=== PATIENT | female | born 1945 | race Caucasian/White ===

== ENCOUNTER 2023-02-23 00:21 | Emergency (ER) | payer OTHER ==
--- OUTSIDE RECORDS SUMMARY | 2023-02-23 00:48 | XMS REPORT | Continuity of Care Document ---
:1945 Author Organization [facility] t Address [address] [place] [address]. [address] [place] [address] Care Team Providers Name Role Phone Darius CANNON, Mary Primary Care Physician Loida OLSON, Rosaura Bush Attending Clinician Unavailable ANA PAULA BERRY Attending Clinician Unavailable ANA PAULA BERRY Attending Clinician Unavailable Brandon Shelton MD Attending Clinician Carlos Carolina MD Attending Clinician Isacc Conley MD Attending Clinician FAHEEM MA Attending Clinician Unavailable Doctor Unassigned, [place] Attending Clinician Unavailable Arlene Hoffman RN Attending Clinician Unavailable Carlie Oconnor MD Attending Clinician Gurwinder Raymond MD Attending Clinician Angel Luis Caputo MD Attending Clinician Kvng Maxwell MD Attending Clinician Abbe Lewis MD Attending Clinician Unavailable ABBE LEWIS Attending Clinician Unavailable Lopez CANNON, [facility] Attending Clinician LALIT PEREZ Attending Clinician Unavailable LALIT PEREZ Attending Clinician Unavailable Lalit Perez MD Attending Clinician Bela Ac MD Attending Clinician [phone] ELIZABETH OSUNA Attending Clinician Unavailable JAMES BIGGS Attending Clinician Unavailable Vince Thomason DO Attending Clinician James Biggs MD Attending Clinician Provider, [facility] Attending Clinician Unavailable Selena Cedeno MD Attending Clinician SELENA CEDENO Attending Clinician Unavailable IBIS WARNER Attending Clinician Unavailable Cece Vu Attending Clinician CECE BELCHER Attending Clinician Unavailable CARLOS CAROLINA Admitting Clinician Unavailable Kvng Maxwell MD Admitting Clinician KVNG MAXWELL Admitting Clinician Unavailable JAMES BIGGS Admitting Clinician Unavailable James Biggs MD Admitting Clinician Payers Payer Name Policy Type Policy Number Effective Date Expiration Date S ource Problems Condition Condition Condition Status Onset Resolution Last Treating Co mments Source Name Details Category Date Date Treatment Clinician Date Acute Acute Disease Active Univers hypoxemic hypoxemic 02-10 [place] respir[place] failure 00 [facility] Branch Hypotensio Hypotensio Disease Active U nivers n, n, 9-18 ity of unspecifie unspecifie 00:00[place] d d 00 Medical hypotensio hypotensio Br anch n type n type Pulmonary Pulmonary Disease Active Uni vers edema edema 6-11 ity of 00:00: [place] 00 Medical Branch Acute Acute Disease Active Univers pulmonary pulmonary 6-11 ity of edema edema 00:00: [place] [facility] Coronary Coronary Disease Active Overview: [place] artery artery 6-11 Formattin ity of disease disease 00:00: g of this [place] involving involving 00 note [facility] eklutna eklutna might be Branch coronary coronary different artery of artery of from the eklutna eklutna original. heart with heart with Added angina angina automatic pectoris pectoris ally from request for surgery [id number] Acute Acute Disease Active Univers systolic systolic 4-18 ity of congestive congestive 00:00[place] heart heart 00 Medical failure failure Branch Acute Acute Disease Active Univers left-sided left-sided 4-18 it y of CHF CHF 00:00: [place] (congestiv (congestiv 00 Me dical e heart e heart Branch failure) failure) Low oxygen Low oxygen Disease Active U nivers saturation saturation 6-26 it y of 00:00: [place] [facility] Pneumonia Pneumonia Disease Active Uni vers due to due to 6-26 ity of infectious infectious 00:00: [place] organism organism 00 Medica l Branch Essential Essential Disease Active 2016-05 Uni vers hypertensi hypertensi 0-01 it y of on on 00:00: [place] [facility] Acute on Acute on Disease Active 2016-05 Unive rs chronic chronic 0-01 ity of diastolic diastolic 00:00: Beto cotton CHF CHF 00 Medical (congestiv (congestiv Br anch e heart e heart failure), failure), NYHA class NYHA class 3 3 Paroxysmal Paroxysmal Disease Active 2016-05 U nivers atrial atrial 0-01 ity of fibrillati fibrillati 00:00: [place] on on 00 Medical Branch Type 2 Type 2 Disease Active 2016-05 Univers diabetes diabetes 0-01 ity of mellitus mellitus 00:00: [place] with with 00 Medical complicati complicati Br anch on, with on, with long-term long-term current current use of use of insulin insulin Type 2 Type 2 Disease Active 2016-05 Univers diabetes diabetes 0-01 ity of mellitus mellitus 00:00: [place] with with 00 Medical complicati complicati Br anch on, with on, with long-term long-term current current use of use of insulin insulin Chest pain Chest pain Disease Active U nivers 9-30 ity of 00:00: [place] 00 Medical Branch Muscle Muscle Disease Active Univers weakness weakness 4-14 ity of of lower of lower 00:00: [place] extremity extremity 00 [facility] ga Branch Abnormal Abnormal Disease Active Unive rs gait gait 4-14 ity of 00:00: [place] [facility] Left knee Left knee Disease Active Uni vers pain pain 2-24 ity of 00:00: [place] [facility] Left knee Left knee Disease Active 2016-0 Uni vers pain pain 2-24 ity of 00:00: [place] 00 Medical Branch Allergies, Adverse Reactions, Alerts Allergy Allergy Status Severity Reaction(s) Onset Inactive Treating Comm ents Source Name Type Date Date Clinician NO KNOWN Drug Active Univers ALLERGIE Class ity of S [place] [facility] Social History Social Habit Start Date Stop Date Quantity Comments Source Sexual orientation Univer sity of [place] [facility] History SDOH University o f Alcohol Std Drinks [place] [facility] History SDOH University o f Alcohol Binge [place] [facility] History SDOH Social Unive rsity of Connections Get [place] Med ical Together Branch History SDOH Social Unive rsity of Connections [facility] Medical Branch History SDOH Social Unive rsity of Connections [place] Medical Membership Branch History SDOH Social Unive rsity of Connections [place] Medical Meetings Branch Alcohol intake 2023-02-02 2023-02-02 0 /d University of 00:00:00 00:00:00 [place] [facility] History SDOH 2022-10-27 2022-10-27 1 University o f Alcohol Frequency 00:00:00 00:00:00 [place] M edical Branch History SDOH Social 2022-10-27 2022-10-27 5 Unive rsity of Connections Phone 00:00:00 00:00:00 [place] M edical Branch History SDOH Social 2022-10-27 2022-10-27 3 Unive rsity of Connections Living 00:00:00 00:00:00 [place] [facility] History SDOH 2022-10-27 2022-10-27 0 University o f Physical Activity 00:00:00 00:00:00 [place] M edical DPW Branch History SDOH 2022-10-27 2022-10-27 0 University o f Physical Activity 00:00:00 00:00:00 [place] M edical MPS Branch History SDOH 2022-10-27 2022-10-27 5 University o f Financial 00:00:00 00:00:00 [place] [facility] History SDOH Food 2022-10-27 2022-10-27 1 Univers ity of Worry 00:00:00 00:00:00 [place] [facility] History SDOH Food 2022-10-27 2022-10-27 1 Univers ity of Scarcity 00:00:00 00:00:00 [place] [facility] History SDOH 2022-10-27 2022-10-27 2 University o f Transport Med 00:00:00 00:00:00 [place] Medic al Branch History SDFL 2022-10-27 2022-10-27 2 University o f Transport Non-Med 00:00:00 00:00:00 [place] M edical Branch History SDOH 2022-10-27 2022-10-27 2 University o f Housing Unable to 00:00:00 00:00:00 [place] M edical Pay Branch History SDFL 2022-10-27 2022-10-27 1 University o f Housing Places 00:00:00 00:00:00 [place] Medi ga Lived Branch History SDFL 2022-09-03 2022-09-03 2 [place] o f Housing Homeless 00:00:00 00:00:00 [place] Me dical Last Year Branch Exposure to 2022-08-23 2022-09-02 Yes [facility] SARS-CoV-2 (event) 00:00:00 21:35:00 [facility] Tobacco use and 2022-09-02 2022-09-02 Smokeless Universit y of exposure 00:00:00 00:00:00 tobacco non-user [facility] dical Branch History of Social 2018-11-25 2018-11-25 Univers ity of function 00:00:00 00:00:00 [facility] Sex [birth year] Universit y of 00:00:00 00:00:00 [facility] Smoking Status Start Date Stop Date Source Never smoked tobacco [facility] Medications Ordered Filled Start Stop Current Ordering Indication Dosage Frequency Signature Comments Components Source Medication Medication Date Date Medication? Clinician (SIG) Name Name BIOTIN ORAL 2022-05 Yes 2000mg Take 2,000 Univers 0-04 mg by ity of 15:53: mouth [place] daily. Medical Branch GABAPENTIN 2022-05 Yes 800mg Take 800 [place] ORAL 0-04 mg by ity of 15:53: mouth 3 [place] 43 (three) Medical times Branch daily. metFORMIN 2022-05 Yes 1000mg Take 1 Univ ers (GLUCOPHAGE 0-04 tablet by ity of ) 1,000 mg 15:53: mouth in [place] tablet 43 the Medical morning Branch and 1 tablet in the evening. Take with meals. potassium 2022-05 Yes 20meq Take 20 Univ ers chloride 0-04 mEq by ity of (K-DUR) 10 15:53: mouth [place] mEq CR 43 daily. Medical tablet Branch tolterodine 2022-05 Yes 4mg Take 4 mg U nivers [place] (DETROL 0-04 by mouth ity o f [place]) 4 mg 24 15:53: [place]. [place] hr capsule 43 Medical Branch ezetimibe 2022-05 Yes 10mg Take 1 Univer s (ZETIA) 10 0-04 tablet by ity of mg tablet 15:53: [place] 43 the Medical morning. Branch Fentanyl, 2022-05 Yes Univers Bulk, 100 % 0-04 ity of Powd 15:53: [place] 43 Medical Branch diazePAM 5 2022-05 Yes (Schedule Un j[place] mg tablet 0-04 IV Drug) ity of 15:53: TAKE 1 [place] 43 TABLET BY Medical MOUTH Branch EVERY EVENING Fenofibrate 2022-05 Yes 150mg Take 1 Uni vers 150 mg 0-04 capsule by ity of capsule 15:53: mouth in [place] [address] the Medical morning. Branch raloxifene 2022-05 Yes 1 tablet Uni vers 60 mg 0-04 ity of tablet 15:53: [place] 43 Medical Branch Insulin 2022-05 Yes inject Univers Detemir 0-04 under the ity of (LEVEMIR 15:53: skin. [place] FLEXPEN) Medical 100 unit/mL Branch (3 mL) injection BIOTIN ORAL 2022-05 Yes 2000mg Take 2,000 Univers 0-04 mg by ity of 15:53: mouth [place] 43 daily. Medical Branch GABAPENTIN 2022-05 Yes 800mg Take 800 [place] ORAL 0-04 mg by ity of 15:53: mouth 3 [place] 43 (three) Medical times Branch daily. metFORMIN 2022-05 Yes 1000mg Take 1 Univ ers (GLUCOPHAGE 0-04 tablet by ity of ) 1,000 mg 15:53: mouth in [place] tablet 43 the Medical morning Branch and 1 tablet in the evening. Take with meals. potassium 2022-05 Yes 20meq Take 20 Univ ers chloride 0-04 mEq by ity of (K-DUR) 10 15:53: mouth [place] mEq CR 43 daily. Medical tablet Branch tolterodine 2022-05 Yes 4mg Take 4 mg U nivers [place] (DETROL 0-04 by mouth ity o f [place]) 4 mg 24 15:53: daily. [place] capsule 43 Medical Branch ezetimibe 2022-05 Yes 10mg Take 1 Univer s (ZETIA) 10 0-04 tablet by ity of mg tablet [facility]:53[facility] morning. Branch Fentanyl, 2022-05 Yes Univers Bulk, 100 % 0-04 ity of Powd 15:53: [place] [address] Medical Branch diazePAM 5 2022-05 Yes (Schedule Un j[place] mg tablet 0-04 IV Drug) ity of 15:53: TAKE 1 [place] 43 TABLET BY Medical MOUTH Branch EVERY EVENING Fenofibrate 2022-05 Yes 150mg Take 1 Uni vers 150 mg 0-04 capsule by ity of capsule 15:53: mouth in [place] [address] the Medical morning. Branch raloxifene 2022-05 Yes 1 tablet Uni vers 60 mg 0-04 ity of tablet 15:53: [place] [address] Medical Branch Insulin 2022-05 Yes inject Univers Detemir 0-04 under the ity of (LEVEMIR 15:53: skin. [place] FLEXPEN) Medical 100 unit/mL Branch (3 mL) injection Lidocaine 2022-05- No 1{patch 1 Patch, Univers (LIDOCARE) 0-02 02-17 } Topical, ity of 4 % patch 1 18:00: 05:33 Administer [place] Patch 00 :00 over 12 Medical Hours, Branch ONCE, 1 dose, On Thu02/16/23 at 1300, Routine Sliding 2022-05 Yes Subcutaneo Univ ers Scale 0-02 us, TID ity of Insulin - 17:00: MEALS+HS, [place] Lispro 00 First dose Medical (HumaLOG) (after Branch last modificati on) on Thu02/16/23 at 1200, Until Discontinu ed, Routine losartan 2022-05 Yes 25mg 25 mg, Univers (COZAAR) 0-02 Oral, ity of tablet 25 16:15: DAILY, [place] mg 00 First dose Medical on Thu [place] 02/16/23 at 1115, Until Discontinu ed, Routine BIOTIN ORAL 2022-05 Yes 2000mg Take 2,000 Univers 0-02 mg by ity of 11:39: mouth [place] 35 daily. Medical Branch GABAPENTIN 2022-05 Yes 800mg Take 800 [place] ORAL 0-02 mg by ity of 11:39: mouth 3 [place] 35 (three) Medical times Branch daily. metFORMIN 2022-05 Yes 1000mg Take 1 Univ ers (GLUCOPHAGE 0-02 tablet by ity of ) 1,000 mg 11:39: mouth in [place] tablet 35 the Medical morning Branch and 1 tablet in the evening. Take with meals. potassium 2022-05 Yes 20meq Take 20 Univ ers chloride 0-02 mEq by ity of (K-DUR) 10 11:39: mouth [place] mEq CR 35 daily. Medical tablet Branch tolterodine 2022-05 Yes 4mg Take 4 mg U nivers [place] (DETROL 0-02 by mouth ity o f [place]) 4 mg 24 11:39: daily. [place] hr capsule 35 Medical Branch ezetimibe 2022-05 Yes 10mg Take 1 Univer s (ZETIA) 10 0-02 tablet by ity of mg tablet 11:39: [place] 35 the Medical morning. Branch Fentanyl, 2022-05 Yes Univers Bulk, 100 % 0-02 ity of Powd 11:39: [address] diazePAM 5 2022-05 Yes (Schedule Un j[place] mg tablet 0-02 IV Drug) ity of 11:39: TAKE 1 [place] 35 TABLET BY Medical MOUTH Branch EVERY EVENING Fenofibrate 2022-05 Yes 150mg Take 1 Uni vers 150 mg 0-02 capsule by ity of capsule 11:39: mouth in [place] [address] the Medical morning. Branch raloxifene 2022-05 Yes 1 tablet Uni vers 60 mg 0-02 ity of tablet 11:39: [address] Insulin 2022-05 Yes inject Univers Detemir 0-02 under the ity of (LEVEMIR 11:39: skin. [place] FLEXPEN) [address] [place] [address] 100 unit/mL Branch (3 mL) injection furosemide 2022-05 Yes 40mg 40 mg, Unive rs (LASIX) 0-02 Oral, BID, ity of tablet 40 01:00: First dose [place] mg 00 on [facility] 02/15/23 at [place] 1999, Until Discontinu ed, Routine ferrous 2022-05 Yes [id number] 325mg Take 1 [place] sulfate 325 0-02 tablet by ity of mg (65 mg 00:00: [place] iron) 00 the Medical tablet morning. Branch carvediloL 2022-05 Yes [id number] 6.25mg Take 1 Univers 6.25 mg 0-02 tablet by ity of tablet 00:00: mouth in [place] [address] the Medical morning Branch and 1 tablet in the evening. Take with meals. furosemide 2022-05 Yes [id number] 40mg Take 1 Univers 40 mg 0-02 tablet by ity of tablet 00:00: mouth in [place] 00 the Medical morning Branch and 1 tablet in the evening. ferrous 2022-05 Yes [id number] 325mg Take 1 [place] sulfate 325 0-02 tablet by ity of mg (65 mg 00:00: mouth in [facility]) 00 the Medical tablet morning. Branch carvediloL 2022-05 Yes [id number] 6.25mg Take 1 Univers 6.25 mg 0-02 tablet by ity of tablet 00:00: mouth in [place] [address] the Medical morning [place] and 1 tablet in the evening. Take with meals. furosemide 2022-05 Yes [id number] 40mg Take 1 Univers 40 mg 0-02 tablet by ity of tablet 00:00: mouth in [place] [address] the [facility] morning [place] and 1 tablet in the evening. ferrous 2022-05 Yes [id number] 325mg Take 1 [place] sulfate 325 0-02 tablet by ity of mg (65 mg 00:00: mouth in [facility]) 00 the Medical tablet morning. Branch carvediloL 2022-05 Yes [id number] 6.25mg Take 1 Univers 6.25 mg 0-02 tablet by ity of tablet 00:00: mouth in [place] [address] the [facility] morning [place] and 1 tablet in the evening. Take with meals. furosemide 2022-05 Yes [id number] 40mg Take 1 Univers 40 mg 0-02 tablet by ity of tablet 00:00: mouth in [place] [address] the [facility] ER and 1 tablet in the evening. Sliding 2022-05- Subcutaneo Uni vers Scale 0-01 10-02 us, Q6H, ity of Insulin - 05:00: 14:54 First dose [place] Lispro 00 :56 (after Medical (HumaLOG) last Branch modificati on) on 02/15/23 at 0000, Until Discontinu ed, Routine atorvastati 2022-05 Yes 40mg 40 mg, Univ ers n (LIPITOR) 0-01 Oral, QHS, it y of tablet 40 02:00: First dose [place] mg 00 on Sat Medical 02/14/23 at Branch 2100, Until Discontinu ed, Routine furosemide 2022- No 40mg 40 mg, Univ ers (LASIX) 02-14 Slow IV ity of injection 22:00: 22:58 Push, [place] 40 mg 00 :00 DAILY, 1 Medical dose, Branch First dose (after last modificati on) on [facility] 02/14/23 at 1700, Routine KCL 2022- No 40meq 40 mEq, Univers (KLOR-CON 02-13 Oral, ity of M20) tablet 23:15: 23:04 ONCE, 1 [place] 40 mEq 00 :00 dose, On Medical Fri [place] 02/13/23 at 1815, Routine magnesium 2022- No 400mg 400 mg, Uni vers oxide 02-13 Oral, ity of (MAG-OX 15:00: 17:42 ONCE, 1 [place] 400) tablet 00 :00 dose, On Medi ga 400 mg Fri [place] 02/13/23 at 1000, Routine potassium 2022- No 20meq 20 mEq, IV Univers chloride in 02-13 Piggyback, i ty of water (KCL) 04:30: 09:49 Q2H ES, 2 [place] 20 mEq/100 00 :00 doses, Medical mL RTU IVPB First dose Br anch 20 mEq on [place] 02/12/23 at 2330, Last dose on Thu02/13/23 at 0130, 100 mL furosemide No 40mg 40 mg, Univ ers (LASIX) 02-13 Slow IV ity of injection 01:00: 01:48 [place], [place] 40 mg 00 :00 Q12H, 1 Medical dose, Branch First dose (after last modificati on) on [facility] 02/12/23 at 2000, Routine insulin Yes 17U 17 Units, Unive rs glargine 02-12 Subcutaneo ity o f (LANTUS 14:00: [place], DAILY, [place] U-100) 00 First dose Medical injection (after Branch 17 Units last modificati on) on [place] 02/12/23 at 0900, Until Discontinu ed, Routine peg-electro 2022- No 4000mL 4,000 mL, Univers lyte soln 02-11 Oral, ity of (GOLYTELY) 23:30: 02:33 ONCE, 1 [place] 236-22.74-6 00 :00 dose, On Medi ga .74 -5.86 Wed Branch gram 02/11/23 at solution 1830, 4,000 mL Routine insulin Yes 3U 3 Units, Univer s lispro 02-11 Subcutaneo ity of (human) 22:00: us, TID [place] (HumaLOG 00 MEALS, Medical U-100) First dose Branch injection 3 on [facility] Units 02/11/23 at 1700, Until Discontinu ed, Routine KCL 2022-2022- No 40meq 40 mEq, Univers (KLOR-CON 02-11 Oral, ity of M20) tablet 16:15: 15:36 ONCE, 1 [place] 40 mEq 00 :00 dose, On [facility] Branch 02/11/23 at 1115, Routine KCL 20 2022- No 20meq 20 mEq, Univer s mEq/15 mL 02-11 Oral, ity of solution 20 12:15: 11:32 ONCE, 1 [place] mEq 00 :00 dose, On [facility] Branch 02/11/23 at 0715, Routine magnesium 2022-2022- No 2g 2 g, IV Univ ers sulfate in 02-11 Piggyback, it y of water 2 12:15: 12:32 Administer [place] gram/50 mL 00 :00 over 60 Medica l (4 %) Minutes, Branch infusion 2 ONCE, 1 g dose, On Thu02/11/23 at 0715, Routine potassium 2022-2022- No 20meq 20 mEq, IV Univers chloride in 02-11 Piggyback, i ty of water (KCL) 11:30: 17:16 Q2H, 2 [place] 20 mEq/100 00 :00 doses, Medical mL RTU IVPB First dose Br anch 20 mEq on Thu02/11/23 at 0630, Last dose on Thu02/11/23 at 0800, 100 mL QUEtiapine Yes 25mg 25 mg, Unive rs (SEROQUEL) 02-11 Oral, QHS, ity of tablet 25 02:00: First dose [place] mg 00 (after Medical last Branch modificati on) on Thu02/10/23 at 2100, Until Discontinu ed, Routine Insulin Yes inject Univers Detemir 02-10 under the ity of (LEVEMIR 14:28: skin. [place] FLEXPEN) 17 Medical 100 unit/mL Branch (3 mL) injection insulin 2022- No 15U 15 Units, [facility] ers glargine 02-10 Subcutaneo ity of (LANTUS 14:00: 18:40 us, DAILY, [place] U-100) 00 :13 First dose Medical injection (after Branch 15 Units last modificati on) on Thu02/10/23 at 0900, Until Discontinu ed, Routine KCL 20 2022- No 40meq 40 mEq, [facility] mEq/15 mL 02-10 Oral, ity of solution 40 13:00: 14:02 ONCE, 1 [place] mEq 00 :00 dose, On [facility] 02/10/23 at 0800, Routine pantoprazol Yes 40mg 40 mg, Univ ers e 02-10 Oral, BID, ity of (PROTONIX) 01:00: First dose [place] EC tablet 00 on Thu Medical 40 mg 02/09/23 at Branch 2000, Until Discontinu ed, Routine cefTRIAXone 2022- No 1000mg 1,000 mg, Univers (ROCEPHIN) 02-09 IV ity of 1,000 mg in 15:00: 13:35 [place], [place] NaCl 0.9% 00 :00 Q24H ABX, Medic al (NS) 100 mL 3 doses, Bran ch MINI-BAG First dose (after last reorder) on Thu02/09/23 at 1000, Last dose on Thu02/11/23 at 1000, Administer over 30 Minutes, 100 mL
Reas on for Anti-Infec tive: Empiric Therapy for Suspected Infection< br>Empiric Therapy Site: Respirator y
Durat ion of therapy: 72 hours insulin 2022- No 8U 8 Units, [facility] glargine 02-09 Subcutaneo ity of (LANTUS 14:00: 12:42 us, DAILY, [place] U-100) 00 :12 First dose Medical injection 8 on [facility] Branch Units 02/09/23 at 0900, Until Discontinu ed, Routine KCL 20 2022- No 40meq 40 mEq, Univer s mEq/15 mL 02-09 Oral, ity of solution 40 13:45: 14:22 ONCE, 1 [place] mEq 00 :00 dose, On Medical Mon Branch 02/09/23 at 0845, Routine ipratropium Yes 3mL 3 mL, Unive rs -albuteroL 02-08 Inhalation ity of (DUONEB) 16:45: , QIDPRN, [place] 0.5 mg-3 00 Starting Medical mg(2.5 mg on [facility] base)/3 mL 02/08/23 at nebulizer 1145, solution 3 Until mL Discontinu ed, Routine, Wheezing furosemide 2022- No 40mg 40 mg, Univ ers (LASIX) 02-08 Slow IV ity of injection 13:00: 18:58 [place], [place] 40 mg 00 :57 Q12H, Medical First dose Branch (after last modificati on) on [place] 02/08/23 at 0800, Until Discontinu ed, Routine ferrous Yes 325mg 325 mg, Univer s sulfate 02-08 Oral, BID, ity of tablet 325 01:00: First dose [place] mg 00 on [facility] 02/07/23 at [place] 1999, Until Discontinu ed, Routine QUEtiapine 2022- No 25mg 25 mg, Univ ers (SEROQUEL) 02-08 Oral, BID, it y of tablet 25 01:00: 12:21 First dose [place] mg 00 :47 on [facility] 02/07/23 at [place] 1999, Until Discontinu ed, Routine magnesium 2022- No 4g 4 g, IV Univ ers sulfate in 02-07 Piggyback, it y of water 4 06:30: 07:41 at 25 [place] gram/50 mL 00 :00 mL/hr Medical (8 %) IV Administer Branc h Piggyback 4 over 120 g Minutes, ONCE, 1 dose, On [facility] 02/07/23 at 0130, Routine furosemide 2022- No 40mg 40 mg, Univ ers (LASIX) 02-06 Slow IV ity of injection 23:00: 18:30 [place], Q6H, [place] 40 mg 00 :47 First dose Medical on Thu Branch 02/06/23 at 1800, Until Discontinu ed, Routine cefTRIAXone 2022- No 1000mg 1,000 mg, Univers (ROCEPHIN) 02-06 IV ity of 1,000 mg in 18:30: 20:33 Piggyback, [place] NaCl 0.9% 00 :00 Q24H ABX, Medic al (NS) 100 mL 3 doses, Bran ch MINI-BAG First dose on Thu02/06/23 at 1330, Last dose on Thu02/08/23 at 1330, Administer over 30 Minutes, 100 mL
Reas on for Anti-Infec tive: Empiric Therapy for Suspected Infection< br>Empiric Therapy Site: Respirator y
Durat ion of therapy: 72 hours dexMEDEtomi 2022- No .2ug/kg 0.2-1.5 Univers dine 400 02-06 09-26 /h mcg/kg/hr ity o f mcg in 0.9 17:34: 16:25 ?96.1 kg [place] % NaCl 100 20 :40 (4.805-36. Med ical mL 0375 Branch (PRECEDEX) mL/hr, RTU IV rounded to infusion 4.81-36.04 mL/hr), IV Infusion, TITRATE, Sedation-R ASS score (0 to -1), Starting on Thu02/06/23 at 1234
In itiate infusion at 0.2 mcg/kg/hr and titrate by 0.1 mcg/kg/hr every 30 minutes to goal sedation score. Maximum dose = 1.5 mcg/kg/hr. If goal not maintained at maximum allowed dose, contact prescriber .
furosemide 2022- No 40mg 40 mg, Univ ers (LASIX) 02-06 Slow IV ity of injection 17:15: 17:33 [place], [place] 40 mg 00 :00 ONCE, 1 Medical dose, On Branch 9/22/23 at 1215, Routine NaCl 0.9% 2022-0 Yes 10mL 10 mL, Univer s (NS) 02-06 Slow IV ity of injection 16:50: [place], PRN, [place] 10 mL 25 Starting Medical on Fri Branch 02/06/23 at 1150, Until Discontinu ed, Routine, line maintenanc e lidocaine 2022-0 Yes 5mL 5 mL, Univers 1% (PF) 02-06 Subcutaneo ity of (XYLOCAINE) 16:50: us, PRN, [place] injection 5 25 Starting Medi ga mL on Fri Branch 02/06/23 at 1150, Until Discontinu ed, Routine, Local anesthesia ipratropium 2022- No 3mL 3 mL, Univ ers -albuteroL 02-06 Inhalation it y of (DUONEB) 13:00: 16:40 , QID, [place] 0.5 mg-3 00 :55 First dose Medic al mg(2.5 mg on Thu Branch base)/3 mL 02/06/23 at nebulizer 0800, solution 3 Until mL Discontinu ed, Routine morpHINE (2 2022- No 1mg 1 mg, Slow Univers mg/mL) 02-06 IV [place], ity of injection 1 12:45: 13:10 ONCE, 1 [place] mg 00 :00 dose, On Medical Fri Branch 02/06/23 at 0745, Routine methylPREDN 2022- No 40mg 40 mg, Uni vers ISolone sod 02-06 Intravenou i ty of succ 11:00: 16:41 s, Q8H, [place] (SOLU-MEDRO 00 :45 First dose Me dical L (PF)) on Fri Branch injection 02/06/23 at 40 mg 0600, Until Discontinu ed, 1 mL Insulin Yes inject Univers Detemir 02-06 under the ity of (LEVEMIR 10:07: skin. [place] FLEXPEN) 45 Medical 100 unit/mL Branch (3 mL) injection furosemide 2022- No 40mg 40 mg, Univ ers (LASIX) 02-06 Slow IV ity of injection 08:45: 07:56 Push, [place] 40 mg 00 :00 ONCE, 1 Medical dose, On Branch 02/06/23 at 0345, Routine methylpredn 2022- No 125mg 125 mg, U nivers isolone sod 02-06 Intravenou i ty of succ 07:30: 06:48 s, ONCE, 1 [place] (SOLU-MEDRO 00 :00 dose, On Medi ga L) Fri Branch injection 02/06/23 at 125 mg 0230, 2 mL ipratropium 2022- No 3mL 3 mL, Univ ers -albuteroL 02-06 Inhalation it y of (DUONEB) 06:20: 06:37 , QIDPRN, [place] 0.5 mg-3 20 :57 Starting Medical mg(2.5 mg on Fri Branch base)/3 mL 02/06/23 at nebulizer 0120, solution 3 Until Fri mL 02/06/23 at 0137, Routine, Wheezing, Shortness of Breath LORazepam 2022- No 1mg 1 mg, Slow U nivers (ATIVAN) 02-06 IV Push, ity of injection 1 06:15: 05:29 ONCE, 1 [place] mg 00 :00 dose, On Medical Fri Branch 02/06/23 at 0115, Routine traZODone 2022- No 50mg 50 mg, Unive rs (DESYREL) 02-06 Oral, ity of tablet 50 05:00: 04:05 ONCE, 1 [place] mg 00 :00 dose, On Medical Fri Branch 02/06/23 at 0000, Routine ARIPiprazol 2022- No 2mg 2 mg, Univ ers e (ABILIFY) 02-06 Oral, ity of 1 mg/mL 02:00: 13:35 DAILY, [place] oral 00 :14 First dose Medical solution 2 on [place] Branch mg 02/05/23 at 2100, Until Discontinu ed, Routine zinc 2022- Yes Topical, Univers oxide-cod 02-05 PRN, ity of liver oil 10:41: Starting [place] (DESITIN) 49 on [place] Medical 40 % paste 02/05/23 at [facility] 0541, Until Discontinu ed, Routine, Diaper rash bisacodyL 2022- No 10mg 10 mg, Unive rs (DULCOLAX) 02-04 Oral, ity of tablet 10 21:30: 22:22 PRE-PROCED [place] mg 00 :00 URE ONCE, Medical 1 dose, Branch Starting on Thu02/04/23 at 1630, Until Discontinu ed, Routine, Bowel Prep, Colonoscop y peg-electro 2022- No 4000mL 4,000 mL, Univers lyte soln 02-04 Oral, PRN ity of (GOLYTELY) 20:21: 22:42 - SEE [place] [id number] 22 :01 INSTRUCTIO Me dical .74 -5.86 NS, Branch gram Starting solution on Thu 4,000 mL 02/04/23 at 1521, Until Thu02/11/23 at 1742, Routine, Bowel Prep, colonoscop y bisacodyL 2022- No 10mg 10 mg, Unive rs (DULCOLAX) 02-04 Oral, ity of tablet 10 20:21: 21:01 PRE-PROCED [place] mg 22 :00 URE ONCE, Medical 1 dose, Branch Starting on Thu02/04/23 at 1521, Until Thu02/04/23 at 1601, Routine, Bowel Prep, Colonoscop y phytonadion 2022- No 10mg IV Unive rs e (VITAMIN 02-04 Piggyback, it y of K) 10 mg in 18:00: 18:28 ONCE, 1 [place] NaCl 0.9% 00 :00 dose, On Medica l (NS) Thu Branch piggyback 02/04/23 at 1300, 50 mL clopidogreL Yes 75mg 75 mg, Univ ers (PLAVIX) 75 02-04 Oral, ity of mg tablet 16:45: DAILY, [place] 75 mg 00 First dose Medical on Thu Branch 02/04/23 at 1145, Until Discontinu ed, SYED fluticasone Yes 1{spray 1 [place], Univers propionate 02-04 } Nasal, ity of 50 15:48: DAILY, [place] mcg/actuati 00 First dose Me dical on nasal on Thu Branch spray 1 02/04/23 at [place] 1100, Until Discontinu ed, Routine dexMEDEtomi 2022- No .2ug/kg 0.2-1.5 Univers dine 400 02-04 /h mcg/kg/hr ity o f mcg in 0.9 02:51: 18:05 ?96.6 kg [place] % NaCl 100 44 :19 (4.83-36.2 Med ical mL 25 mL/hr, Branch (PRECEDEX) rounded to RTU IV 4.83-36.23 infusion mL/hr), IV Infusion, TITRATE, Sedation-R ASS score (0 to -1), Starting on Thu02/03/23 at 2151
In itiate infusion at 0.2 mcg/kg/hr and titrate by 0.1 mcg/kg/hr every 30 minutes to goal sedation score. Maximum dose = 1.5 mcg/kg/hr. If goal not maintained at maximum allowed dose, contact prescriber .
furosemide 2022- No 40mg 40 mg, Univ ers (LASIX) 02-04 Slow IV ity of injection 02:45: 02:07 Push, [place] 40 mg 00 :00 ONCE, 1 Medical dose, On Branch [facility] 02/03/23 at 2145, Routine atorvastati 2022- No 40mg 40 mg, Uni vers n (LIPITOR) 02-04 Oral, QHS, i ty of tablet 40 02:00: 13:35 First dose [place] mg 00 :14 on [facility] Medical 02/03/23 at Branch 2100, Until Discontinu ed, Routine octreotide 2022- No 50ug/h 50 mcg/hr Univers (SANDOSTATI 02-03 (10 ity of N) 500 mcg 21:45: 21:19 mL/hr), IV [place] in NaCl 00 :50 Infusion, Medical 0.9% (NS) CONTINUOUS Bran ch 100 mL , Starting infusion on Thu02/03/23 at 1645 phytonadion 2022- No 10mg IV Unive rs e (VITAMIN 02-03 Piggyback, it y of K) 10 mg in 21:30: 21:50 ONCE, 1 [place] NaCl 0.9% 00 :00 dose, On Medica l (NS) [facility] Branch piggyback 02/03/23 at 1630, 50 mL cefTRIAXone 2022- No 1000mg 1,000 mg, Univers (ROCEPHIN) 02-03 IV ity of 1,000 mg in 19:00: 18:54 Piggyback, [place] NaCl 0.9% 00 :00 Q24H ABX, Medic al (NS) 100 mL 3 doses, Bran ch MINI-BAG First dose on [facility] 02/03/23 at 1400, Last dose on [facility] 02/05/23 at 1400, Administer over 30 Minutes, 100 mL
Reas on for Anti-Infec tive: Empiric Therapy for Suspected Infection< br>Empiric Therapy Site: Urine
D uration of therapy: 72 hours fluconazole No 50mg 50 mg, Uni vers (DIFLUCAN) 02-03 Oral, ity of tablet 50 18:00: 19:03 ONCE, 1 [place] mg 00 :00 dose, On [facility] 02/03/23 at 1300, SYED
Re ason for Anti-Infec tive: Empiric Therapy for Suspected Infection< br>Empiric Therapy Site: Skin / Soft tissue
Duration of therapy: 72 hours carvediloL Yes 6.25mg 6.25 mg, U nivers (COREG) 02-03 Oral, BID ity of tablet 6.25 16:45: MEALS, [place] mg 00 First dose Medical on [facility] 02/03/23 at 1145, Until Discontinu ed, Routine fenofibrate Yes 134mg 134 mg, [place] micronized 02-03 Oral, ity of (LOFIBRA) 14:00: DAILY, [place] capsule 134 00 First dose Me dical mg on [facility] 02/03/23 at 0900, Until Discontinu ed ezetimibe 0 Yes 10mg 10 mg, Univer s (ZETIA) 02-03 Oral, ity of tablet 10 14:00: DAILY, [place] mg 00 First dose Medical on [facility] 02/03/23 at 0900, Until Discontinu ed, Routine nystatin 0 Yes Topical, Unive rs (NYSTOP) 02-03 TID, First ity o f powder 13:00: dose on [facility] 02/03/23 at Branch 0800, Until Discontinu ed, Routine pramipexole Yes .125mg 0.125 mg, Univers (MIRAPEX) 02-03 Oral, BID, ity of tablet 13:00: First dose [place] 0.125 mg 00 on [facility] 02/03/23 at Branch 0800, Until Discontinu ed pantoprazol 2022- No 40mg 40 mg, Uni vers e 02-03 Slow IV ity of (PROTONIX) 13:00: 16:01 Push, [place] injection 00 :29 Q12H, Medical 40 mg First dose Branch on Thu02/03/23 at 0800, Until Discontinu ed lactated 2022- No 1000mL at 75 Unive rs ringers IV 02-03 mL/hr, ity of infusion 08:30: 21:36 1,000 mL, [place] 1,000 mL 00 :21 IV Medical Infusion, Branch CONTINUOUS , Starting on Thu02/03/23 at 0330, Until 02/03/23 at 1636, Routine Sliding 2022- No Subcutaneo Uni vers Scale 02-03 10 us, Q4H, ity of Insulin - 05:00: 00:55 First dose [place] Lispro 00 :31 on Thu [facility] (HumaLOG) 02/03/23 at Bran ch 0000, Until Discontinu ed, Routine ondansetron Yes 4mg 4 mg, Slow Univers (ZOFRAN 02-03 IV Push, ity of (PF)) 03:44: Q6HPRN, [place] injection 4 25 Starting Medi ga mg on Thu Branch 02/02/23 at 2244, Until Discontinu ed, Routine, Nausea and Vomiting (N/V) acetaminoph Yes 650mg 650 mg, Un jairo en 02-03 Oral, ity of (TYLENOL) 03:44: Q6HPRN, [place] tablet 650 17 Starting Medic al mg on Thu02/02/23 at 2244, Until Discontinu ed, Routine, Pain (scale 1-3) traMADoL 0 2022- No 50mg 50 mg, Univer s (ULTRAM) 02-03 Oral, ity of tablet 50 03:42: 18:03 Q4HPRN, [place] mg 45 :31 Starting Medical on Mon Branch 02/02/23 at 2242, Until Thu02/03/23 at 1303, Routine, Pain (scale 4-6) furosemide 2022- No 40mg 40 mg, IV U nivers (LASIX) 02-03 Push, ity of injection 01:45: 01:43 ONCE, 1 [place] 40 mg 00 :00 dose, On Medical Mon Branch 02/02/23 at 2045, SYED BIOTIN ORAL 2022-0 Yes 2000mg Take 2,000 Univers 9-18 mg by ity of 22:45: mouth [place] 02 daily. Medical Branch GABAPENTIN 0 Yes 800mg Take 800 [place] ORAL 9-18 mg by ity of 22:45: mouth 3 [place] 02 (three) Medical times Branch daily. metFORMIN 0 Yes 1000mg Take 1 Univ ers (GLUCOPHAGE 9-18 tablet by ity of ) 1,000 mg 22:45: mouth in [place] tablet 02 the Medical morning Branch and 1 tablet in the evening. Take with meals. potassium Yes 20meq Take 20 Univ ers chloride 9-18 mEq by ity of (K-DUR) 10 22:45: mouth [place] mEq CR 02 daily. Medical tablet Branch tolterodine Yes 4mg Take 4 mg U nivers [place] (DETROL 9-18 by mouth ity o f [place]) 4 mg 24 22:45: daily. [place] hr capsule Medical Branch ezetimibe Yes 10mg Take 1 Univer s (ZETIA) 10 9-18 tablet by ity of mg tablet 22:45: mouth in [place] 02 the Medical morning. Branch Fentanyl, 0 Yes Univers Bulk, 100 % -18 ity of Powd 22:45: [place] 02 Medical Branch diazePAM 5 0 Yes (Schedule [place] mg tablet 9-18 IV Drug) ity of 22:45: TAKE 1 [place] 02 TABLET BY Medical MOUTH Branch EVERY EVENING Fenofibrate 2022-0 Yes 150mg Take 1 Uni vers 150 mg 9-18 capsule by ity of capsule 22:45: mouth in [place] 02 the Medical morning. Branch raloxifene 2023-0 Yes 1 tablet Uni vers 60 mg 9-18 ity of tablet 22:45: [place] 02 Medical Branch BIOTIN ORAL 2022-0 Yes 2000mg Take 2,000 Univers 9-18 mg by ity of 22:45: mouth [place] 02 daily. Medical Branch GABAPENTIN 0 Yes 800mg Take 800 [place] ORAL 9-18 mg by ity of 22:45: mouth 3 [place] 02 (three) Medical times Branch daily. metFORMIN 2022-0 Yes 1000mg Take 1 Univ ers (GLUCOPHAGE 9-18 tablet by ity of ) 1,000 mg 22:45: mouth in [place] tablet 02 the Medical morning Branch and 1 tablet in the evening. Take with meals. potassium 0 Yes 20meq Take 20 Univ ers chloride 9-18 mEq by ity of (K-DUR) 10 22:45: mouth [place] mEq CR 02 daily. Medical tablet Branch tolterodine 0 Yes 4mg Take 4 mg U nivers [place] (DETROL 9-18 by mouth ity o f [place]) 4 mg 24 22:45: daily. [place] hr capsule 02 Medical Branch ezetimibe Yes 10mg Take 1 Univer s (ZETIA) 10 9-18 tablet by ity of mg tablet 22:45: mouth in [place] 02 the Medical morning. Branch Fentanyl, 0 Yes Univers Bulk, 100 % 9-18 ity of Powd 22:45: [place] 02 Medical Branch diazePAM 5 0 Yes (Schedule [place] mg tablet 9-18 IV Drug) ity of 22:45: TAKE 1 [place] 02 TABLET BY Medical MOUTH Branch EVERY EVENING Fenofibrate 2022-0 Yes 150mg Take 1 Uni vers 150 mg 9-18 capsule by ity of capsule 22:45: mouth in [place] 02 the Medical morning. Branch raloxifene 0 Yes 1 tablet Uni vers 60 mg 9-18 ity of tablet 22:45: [place] 02 Medical Branch BIOTIN ORAL 2022-0 Yes 2000mg Take 2,000 Univers 9-18 mg by ity of 22:45: mouth [place] 02 daily. Medical Branch GABAPENTIN 0 Yes 800mg Take 800 [place] ORAL 9-18 mg by ity of 22:45: mouth 3 [place] 02 (three) Medical times Branch daily. metFORMIN 2022-0 Yes 1000mg Take 1 Univ ers (GLUCOPHAGE 9-18 tablet by ity of ) 1,000 mg 22:45: mouth in [place] tablet 02 the Medical morning Branch and 1 tablet in the evening. Take with meals. potassium 2022-0 Yes 20meq Take 20 Univ ers chloride 9-18 mEq by ity of (K-DUR) 10 22:45: mouth [place] mEq CR 02 daily. Medical tablet Branch tolterodine 2022-0 Yes 4mg Take 4 mg U nivers [place] (DETROL 9-18 by mouth ity o f [place]) 4 mg 24 22:45: daily. [place] hr capsule 02 Medical Branch ezetimibe 2022-0 Yes 10mg Take 1 Univer s (ZETIA) 10 9-18 tablet by ity of mg tablet 22:45: mouth in [place] 02 the Medical morning. Branch Fentanyl, 2022-0 Yes Univers Bulk, 100 % 9-18 ity of Powd 22:45: [place] 02 Medical Branch diazePAM 5 2022-0 Yes (Schedule Un [place] mg tablet 9-18 IV Drug) ity of 22:45: TAKE 1 [place] 02 TABLET BY Medical MOUTH Branch EVERY EVENING Fenofibrate 2022-0 Yes 150mg Take 1 Uni vers 150 mg 9-18 capsule by ity of capsule 22:45: mouth in [place] 02 the Medical morning. Branch raloxifene 2022-0 Yes 1 tablet Uni vers 60 mg 9-18 ity of tablet 22:45: [place] 02 Medical Branch BIOTIN ORAL 2022-0 Yes 2000mg Take 2,000 Univers 9-18 mg by ity of 22:45: mouth [place] 02 daily. Medical Branch GABAPENTIN 2022-0 Yes 800mg Take 800 [place] ORAL 9-18 mg by ity of 22:45: mouth 3 [place] 02 (three) Medical times Branch daily. metFORMIN 2022-0 Yes 1000mg Take 1 Univ ers (GLUCOPHAGE 9-18 tablet by ity of ) 1,000 mg 22:45: mouth in [place] tablet 02 the Medical morning Branch and 1 tablet in the evening. Take with meals. potassium 3-0 Yes 20meq Take 20 Univ ers chloride 9-18 mEq by ity of (K-DUR) 10 22:45: mouth [place] mEq CR 02 daily. Medical tablet Branch tolterodine 2022-0 Yes 4mg Take 4 mg U nivers [place] (DETROL 9-18 by mouth ity o f [place]) 4 mg 24 22:45: daily. [place] hr capsule Medical Branch ezetimibe Yes 10mg Take 1 Univer s (ZETIA) 10 02-02 tablet by ity of mg tablet 22:45: mouth in [facility] the Medical morning. Branch Fentanyl, Yes Univers Bulk, 100 % 02-02 ity of Powd 22:45: [address] diazePAM 5 Yes (Schedule Un [place] mg tablet 02-02 IV Drug) ity of 22:45: TAKE 1 [place] [address] TABLET BY Medical MOUTH Branch EVERY EVENING Fenofibrate Yes 150mg Take 1 Uni vers 150 mg 02-02 capsule by ity of capsule 22:45: mouth in [place] the morning. Branch raloxifene Yes 1 tablet Uni vers 60 mg 02-02 ity of tablet 22:45: [address] NORepinephr 2022- No .05ug/k 0.05-0.5 Univers ine 4 mg in 02-02-19 g/min mcg/kg/min ity of 0.9% NaCl 21:01: 15:57 ?81.6 kg [place] 250 mL 14 :06 (15.3-153 Medical infusion mL/hr), IV Branc h RTU Infusion, TITRATE, MAP Goal > or = 65 mmHg, Starting on Thu02/02/23 at 1601, For 24 hours
I nitiate titration at 0.05 mcg/kg/min . &nb sp;Increas e by 0.01 mcg/kg/min every 30 seconds to 5 minutes as needed to reach and maintain goal blood pressure.& nbsp;&nbsp ;Maximum dose = 0.5 mcg/kg/min . &nb sp;If goal not maintained at maximum allowed dose, contact prescriber . &nb sp;Adminis ter only one peripheral intravenou s vasopresso r at a time.
NaCl 0.9% 2022- No 1000mL at 999 Uni vers (NS) bolus 02-02-18 mL/hr, ity of infusion 21:00: 21:30 1,000 mL, [place] 1,000 mL 00 :00 IV Medical Infusion, Branch ONCE, 1 dose, On 02/02/23 at 1600, STAT polyethylen 2022-0 2022- No 17g 17 g, Univ ers e glycol 11-07 Oral, ity of 3350 powder 18:30: 18:03 ONCE, 1 [place] 17 g 00 :00 dose, On Medical Fri Branch 11/07/22 at 1330, Routine BIOTIN ORAL 2022-0 Yes 2000mg Take 2,000 Univers 6-23 mg by ity of 14:35: mouth [place] 02 daily. Medical Branch GABAPENTIN 0 Yes 800mg Take 800 [place] ORAL 6-23 mg by ity of 14:35: mouth 3 [place] 02 (three) Medical times Branch daily. metFORMIN 0 Yes 1000mg Take 1,000 Univers (GLUCOPHAGE 6-23 mg by ity of ) 1,000 mg 14:35: mouth 2 [place] tablet 02 (two) Medical times Branch daily with meals. potassium Yes 20meq Take 20 Univ ers chloride 6-23 mEq by ity of (K-DUR) 10 14:35: mouth [place] mEq CR 02 daily. Medical tablet Branch tolterodine Yes 4mg Take 4 mg U nivers [place] (DETROL 6-23 by mouth ity o f [place]) 4 mg 24 14:35: daily. [place] hr capsule 02 Medical Branch ezetimibe Yes 10mg Take 10 mg [place] (ZETIA) 10 6-23 by mouth ity o f mg tablet 14:35: daily. [place] [address] Medical Branch Fentanyl, 0 Yes Univers Bulk, 100 % 6-23 ity of Powd 14:35: [place] [address] Medical Branch diazePAM 5 Yes (Schedule [place] mg tablet 6-23 IV Drug) ity of 14:35: TAKE 1 [place] 02 TABLET BY Medical MOUTH Branch EVERY EVENING Fenofibrate 0 Yes 1{capsu Take 1 U nivers 150 mg 6-23 le} capsule by ity of capsule 14:35: mouth in 02 the Medical morning. Branch raloxifene 0 Yes 1 tablet Uni vers 60 mg 6-23 ity of tablet 14:35: [place] [address] Medical Branch BIOTIN ORAL 0 Yes 2000mg Take 2,000 Univers 6-23 mg by ity of 14:35: mouth [place] 02 daily. Medical Branch GABAPENTIN Yes 800mg Take 800 [place] ORAL 6-23 mg by ity of 14:35: mouth 3 [place] 02 (three) Medical times Branch daily. metFORMIN Yes 1000mg Take 1,000 Univers (GLUCOPHAGE 6-23 mg by ity of ) 1,000 mg 14:35: mouth 2 [place] tablet 02 (two) Medical times Branch daily with meals. potassium Yes 20meq Take 20 Univ ers chloride 6-23 mEq by ity of (K-DUR) 10 14:35: mouth [place] mEq CR 02 daily. Medical tablet Branch tolterodine Yes 4mg Take 4 mg U nivers [place] (DETROL 6-23 by mouth ity o f [place]) 4 mg 24 14:35: daily. [place] hr capsule 02 Medical Branch ezetimibe Yes 10mg Take 10 mg [place] (ZETIA) 10 6-23 by mouth ity o f mg tablet 14:35: daily. [place] [address] Medical Branch Fentanyl, Yes Univers Bulk, 100 % 6-23 ity of Powd 14:35: [place] [address] Medical Branch diazePAM 5 Yes (Schedule [place] mg tablet 6-23 IV Drug) ity of 14:35: TAKE 1 [place] [address] TABLET BY Medical MOUTH Branch EVERY EVENING Fenofibrate Yes 1{capsu Take 1 U nivers 150 mg 6-23 le} capsule by ity of capsule 14:35: mouth in [place] [address] the Medical morning. Branch raloxifene Yes 1 tablet Uni vers 60 mg 6-23 ity of tablet 14:35: [place] Medical Branch carvediloL Yes 12.5mg 12.5 mg, U nivers (COREG) 6-21 Oral, BID ity of tablet 12.5 22:00: MEALS, [place] mg 00 First dose Medical (after Branch last modificati on) on Thu11/05/22 at 1700, Until Discontinu ed, Routine ARIPiprazol Yes 2.5mg 2.5 mg, [place] e (ABILIFY) 6-21 Oral, QHS, it y of tablet 2.5 02:00: First dose [place] mg 00 on Thu Medical 11/04/22 at Branch 2100, Until Discontinu ed, Routine amoxicillin 2022- No 1{tbl} 1 tablet, Univers -clavulanat 11-05 Oral, ity of e 01:00: 00:59 Q12H, 20 [place] (AUGMENTIN) 00 :00 doses, Medica l 875-125 mg First dose Bra nch per tablet on Thu 1 tablet 11/04/22 at 2000, Last dose on Thu11/14/22 at 0800, Routine
Reason for Anti-Infec tive: Documented Infection< br>Documen mars Infection Site: Urine
D uration of Therapy: Other (see Comments) carvediloL 2022-0 Yes [id number] 12.5mg Take 1 Univers 12.5 mg 6-21 tablet by ity of tablet 00:00: mouth in [address] and 1 tablet in the evening. Take with meals. carvediloL 2022-0 Yes [id number] 12.5mg Take 1 Univers 12.5 mg 6-21 tablet by ity of tablet 00:00: mouth in [address] and 1 tablet in the evening. Take with meals. carvediloL 2022-0 Yes [id number] 12.5mg Take 1 Univers 12.5 mg 6-21 tablet by ity of tablet 00:00: mouth in [address] and 1 tablet in the evening. Take with meals. carvediloL 2022-0 Yes [id number] 12.5mg Take 1 Univers 12.5 mg 6-21 tablet by ity of tablet 00:00: mouth in [address] and 1 tablet in the evening. Take with meals. carvediloL 2022-0 Yes [id number] 12.5mg Take 1 Univers 12.5 mg 6-21 tablet by ity of tablet 00:00: mouth in [address] and 1 tablet in the evening. Take with meals. carvediloL 2022-0 2022- No [id number] 12.5mg Take 1 Univers 12.5 mg 6-21 02-16 tablet by ity of tablet 00:00: 00:00 mouth in [place] 00 :00 [facility] and 1 tablet in the evening. Take with meals. carvediloL 2023-0 2023- No [id number] 12.5mg Take 1 Univers 12.5 mg 6-21 10-02 tablet by ity of tablet 00:00: 00:00 mouth in [place] 00 :00 the Medical morning Branch and 1 tablet in the evening. Take with meals. amoxicillin 2022-0 Yes [id number] 1{tbl} Take 1 Univers -clavulanat 6-20 tablet by ity of e 875-125 00:00: mouth [place] mg per 00 every 12 Medical tablet (twelve) Branch hours. insulin 2022-0 Yes [id number] 20U inject 20 U nivers glargine 6-20 Units ity of 100 unit/mL 00:00: under the [place] injection 00 skin every Medi ga 12 Branch (twelve) hours. clopidogreL 2022-0 Yes [id number] 75mg Take 1 Univers 75 mg 6-20 tablet by ity of tablet 00:00: mouth in [place] 00 the Medical morning. Branch amoxicillin 2022-0 Yes [id number] 1{tbl} Take 1 Univers -clavulanat 6-20 tablet by ity of e 875-125 00:00: mouth [place] mg per 00 every 12 Medical tablet (twelve) Branch hours. insulin 2022-0 Yes [id number] 20U inject 20 U nivers glargine 6-20 Units ity of 100 unit/mL 00:00: under the [place] injection 00 skin every Medi ga 12 Branch (twelve) hours. clopidogreL 2022-0 Yes [id number] 75mg Take 1 Univers 75 mg 6-20 tablet by ity of tablet 00:00: mouth in [place] 00 the Medical morning. Branch amoxicillin 2022-0 Yes [id number] 1{tbl} Take 1 Univers -clavulanat 6-20 tablet by ity of e 875-125 00:00: mouth [place] mg per 00 every 12 Medical tablet (twelve) Branch hours. insulin 3-0 Yes [id number] 20U inject 20 U nivers glargine 6-20 Units ity of 100 unit/mL 00:00: under the [place] injection 00 skin every Medi ga 12 Branch (twelve) hours. clopidogreL 2022-0 Yes [id number] 75mg Take 1 Univers 75 mg 6-20 tablet by ity of tablet 00:00: mouth in [place] 00 the Medical morning. Branch amoxicillin 2023-0 Yes [id number] 1{tbl} Take 1 Univers -clavulanat 6-20 tablet by ity of e 875-125 00:00: mouth [place] mg per 00 every 12 Medical tablet (twelve) Branch hours. insulin 2023-0 Yes [id number] 20U inject 20 U nivers glargine 6-20 Units ity of 100 unit/mL 00:00: under the [place] injection 00 skin every Medi ga 12 Branch (twelve) hours. clopidogreL 2023-0 Yes [id number] 75mg Take 1 Univers 75 mg 6-20 tablet by ity of tablet 00:00: mouth in [place] 00 the Medical morning. Branch amoxicillin 3-0 Yes [id number] 1{tbl} Take 1 Univers -clavulanat 6-20 tablet by ity of e 875-125 00:00: mouth [place] mg per 00 every 12 Medical tablet (twelve) Branch hours. insulin 3-0 Yes [id number] 20U inject 20 U nivers glargine 6-20 Units ity of 100 unit/mL 00:00: under the [place] injection 00 skin every Medi ga 12 Branch (twelve) hours. clopidogreL 3-0 Yes [id number] 75mg Take 1 Univers 75 mg 6-20 tablet by ity of tablet 00:00: mouth in [place] 00 the Medical morning. Branch insulin 3-0 Yes [id number] 20U inject 20 U nivers glargine 6-20 Units ity of 100 unit/mL 00:00: under the [place] injection 00 skin every Medi ga 12 Branch (twelve) hours. clopidogreL 2023-0 Yes [id number] 75mg Take 1 Univers 75 mg 6-20 tablet by ity of tablet 00:00: mouth in [place] 00 the Medical morning. Branch insulin 2023-0 Yes [id number] 20U inject 20 U nivers glargine 6-20 Units ity of 100 unit/mL 00:00: under the [place] injection 00 skin every Medi ga 12 Branch (twelve) hours. clopidogreL 2023-0 Yes [id number] 75mg Take 1 Univers 75 mg 6-20 tablet by ity of tablet 00:00: mouth in [place] 00 the Medical morning. Branch insulin 2023-0 Yes [id number] 20U inject 20 U nivers glargine 6-20 Units ity of 100 unit/mL 00:00: under the [place] injection 00 skin every Medi ga 12 Branch (twelve) hours. clopidogreL 2022- Yes [id number] 75mg Take 1 Univers 75 mg 6-20 tablet by ity of tablet 00:00: mouth in [place] 00 the Medical morning. Branch amoxicillin 0 3- No [id number] 1{tbl} Take 1 Univers -clavulanat 6-20 10-02 tablet by it y of e 875-125 00:00: 00:00 mouth [place] mg per 00 :00 every 12 Medical tablet (twelve) Branch hours. amoxicillin 0 2022- No [id number] 1{tbl} Take 1 Univers -clavulanat 6-20 10-02 tablet by it y of e 875-125 00:00: 00:00 mouth [place] mg per 00 :00 every 12 Medical tablet (twelve) Branch hours. insulin 2022-0 Yes 20U 20 Units, Unive rs glargine 6-18 Subcutaneo ity o f (LANTUS 01:00: us, Q12H, [place] U-100) 00 First dose Medical injection (after Branch 20 Units last modificati on) on [facility] 11/01/22 at 1999, Until Discontinu ed, Routine apixaban 0 Yes 5mg 5 mg, Univers (ELIQUIS) 6-18 Oral, BID, ity of tablet 5 mg 01:00: First dose 00 on [facility] Medical 11/01/22 at Branch 1999, Until Discontinu ed, Routine
Indicatio ns: Non-Valvul ar Atrial Fibrillati on apixaban 2022-0 Yes 5mg 5 mg, Univers (ELIQUIS) 6-18 Oral, BID, ity of tablet 5 mg 01:00: First dose 00 on [facility] Medical 11/01/22 at Branch 1999, Until Discontinu ed, Routine
Indicatio ns: Non-Valvul ar Atrial Fibrillati on HYDROcodone 2022-0 Yes [id number] 1{tbl} 1 tablet, Univers -acetaminop 6-17 Oral, ity of hen (NORCO 07:09: Q6HPRN, [place] 5) 5-325 mg 27 Starting Medi ga tablet 1 on [facility] Branch tablet 11/01/22 at 0209, Until Discontinu ed, Routine, Pain (scale 7-10) insulin 2022- No 15U inject 15 Univ ers glargine 11-01-17 Units ity of 100 unit/mL 06:28: 00:00 under the [place] injection 20 :00 skin every Medi ga 12 Branch (twelve) hours. insulin 2022- No 25U inject 25 Univ ers glargine 11-01-17 Units ity of 100 unit/mL 06:28: 00:00 under the [place] injection 20 :00 skin every Medi [facility] evening. Branch DULoxetine 2022- No 1{capsu Take 1 U nivers 60 mg 11-01-17 le} capsule by ity of capsule 06:28: 00:00 mouth in [place] 20 :00 the Medical morning. Branch losartan 50 2022- No 1{tbl} Take 1 U nivers mg tablet 11-01- tablet by ity of 06:28: 00:00 mouth in [place] 20 :00 the Medical morning. Branch atorvastati Yes 40mg 40 mg, Univ ers n (LIPITOR) 6-17 Oral, QHS, it y of tablet 40 02:00: First dose [place] mg 00 on Thu Medical 10/31/22 at Branch 2100, Until Discontinu ed, Routine atorvastati Yes 40mg 40 mg, Univ ers n (LIPITOR) 6-17 Oral, QHS, it y of tablet 40 02:00: First dose [place] mg 00 on Thu Medical 10/31/22 at Branch 2100, Until Discontinu ed, Routine apixaban 5 Yes 1358 5mg Take 1 [facility] rs mg tablet 6-17 tablet by ity o f 00:00: mouth in [place] 00 the Medical morning Branch and 1 tablet in the evening. Indication s: atrial fibrillati on aspirin 81 Yes [id number] 81mg Take 1 U nivers mg chewable 6-17 tablet by ity of tablet 00:00: mouth in [place] 00 the Medical morning. Branch atorvastati Yes [id number] 40mg Take 1 [facility] n 40 mg 6-17 tablet by ity of tablet 00:00: mouth at [place] 00 bedtime. Medical Branch furosemide Yes [id number] 60mg Take 3 U nivers 20 mg 6-17 tablets by ity of tablet 00:00: mouth [place] 00 every Medical morning Branch and evening. insulin 2022-0 Yes [id number] 15U inject 15 U nivers glargine 6-17 Units ity of 100 unit/mL 00:00: under the [place] injection 00 skin every Medi ga 12 Branch (twelve) hours. losartan 25 2022-0 Yes [id number] 25mg Take 1 [facility] mg tablet 6-17 tablet by ity o f 00:00: mouth in [place] 00 the Medical morning. Branch spironolact 2022-0 Yes [id number] 12.5mg Take 0.5 [facility] one 25 mg 6-17 tablets by ity of tablet 00:00: mouth in [place] 00 the Medical morning. Branch apixaban 5 2022-0 Yes 1358 5mg Take 1 [facility] mg tablet 6-17 tablet by ity o f 00:00: mouth in [place] 00 the Medical morning Branch and 1 tablet in the evening. Indication s: atrial fibrillati on aspirin 81 2022-0 Yes [id number] 81mg Take 1 U nivers mg chewable 6-17 tablet by ity of tablet 00:00: mouth in [place] 00 the Medical morning. Branch atorvastati 2022-0 Yes [id number] 40mg Take 1 [facility] n 40 mg 6-17 tablet by ity of tablet 00:00: mouth at [place] 00 bedtime. Medical Branch furosemide 2022-0 Yes [id number] 60mg Take 3 U nivers 20 mg 6-17 tablets by ity of tablet 00:00: mouth [place] 00 every Medical morning Branch and evening. insulin 2022-0 Yes [id number] 15U inject 15 U nivers glargine 6-17 Units ity of 100 unit/mL 00:00: under the [place] injection 00 skin every Medi ga 12 Branch (twelve) hours. losartan 25 2022-0 Yes [id number] 25mg Take 1 [facility] mg tablet 6-17 tablet by ity o f 00:00: mouth in [place] 00 the Medical morning. Branch spironolact 2022-0 Yes [id number] 12.5mg Take 0.5 [facility] one 25 mg 6-17 tablets by ity of tablet 00:00: mouth in [place] 00 the Medical morning. Branch apixaban 5 2022-0 Yes 1358 5mg Take 1 [facility] mg tablet 6-17 tablet by ity o f 00:00: mouth in [place] 00 the Medical morning Branch and 1 tablet in the evening. Indication s: atrial fibrillati on aspirin 81 2022-0 Yes [id number] 81mg Take 1 U nivers mg chewable 6-17 tablet by ity of tablet 00:00: mouth in [place] 00 the Medical morning. Branch atorvastati 0 Yes [id number] 40mg Take 1 [facility] n 40 mg 6-17 tablet by ity of tablet 00:00: mouth at [place] 00 bedtime. Medical Branch furosemide 2022-0 Yes [id number] 60mg Take 3 U nivers 20 mg 6-17 tablets by ity of tablet 00:00: mouth [place] 00 every Medical morning Branch and evening. insulin 2022-0 Yes [id number] 15U inject 15 U nivers glargine 6-17 Units ity of 100 unit/mL 00:00: under the [place] injection 00 skin every Medi ga 12 Branch (twelve) hours. losartan 25 0 Yes [id number] 25mg Take 1 [facility] mg tablet 6-17 tablet by ity o f 00:00: mouth in [place] 00 the Medical morning. Branch spironolact 0 Yes [id number] 12.5mg Take 0.5 [facility] one 25 mg 6-17 tablets by ity of tablet 00:00: mouth in [place] 00 the Medical morning. Branch apixaban 5 2022-0 Yes 1358 5mg Take 1 [facility] rs mg tablet 6-17 tablet by ity o f 00:00: mouth in [place] 00 the Medical morning Branch and 1 tablet in the evening. Indication s: atrial fibrillati on aspirin 81 2022-0 Yes [id number] 81mg Take 1 [facility] nivers mg chewable 6-17 tablet by ity of tablet 00:00: mouth in [place] 00 the Medical morning. Branch atorvastati 2022-0 Yes [id number] 40mg Take 1 [facility] n 40 mg 6-17 tablet by ity of tablet 00:00: mouth at [place] [address] bedtime. Medical Branch furosemide 2022-0 Yes [id number] 60mg Take 3 U nivers 20 mg 6-17 tablets by ity of tablet 00:00: mouth [place] 00 every Medical morning Branch and evening. insulin 2022-0 Yes [id number] 15U inject 15 U nivers glargine 6-17 Units ity of 100 unit/mL 00:00: under the [place] injection 00 skin every Medi ga 12 Branch (twelve) hours. losartan 25 2022-0 Yes [id number] 25mg Take 1 [facility] mg tablet 6-17 tablet by ity o f 00:00: mouth in [place] 00 the Medical morning. Branch spironolact 2022-0 Yes [id number] 12.5mg Take 0.5 [facility] one 25 mg 6-17 tablets by ity of tablet 00:00: mouth in [place] 00 the Medical morning. Branch apixaban 5 2022-0 Yes 1358 5mg Take 1 [facility] mg tablet 6-17 tablet by ity o f 00:00: mouth in [place] 00 the Medical morning Branch and 1 tablet in the evening. Indication s: atrial fibrillati on aspirin 81 2022-0 Yes [id number] 81mg Take 1 U nivers mg chewable 6-17 tablet by ity of tablet 00:00: mouth in [place] 00 the Medical morning. Branch atorvastati 2022-0 Yes [id number] 40mg Take 1 [facility] n 40 mg 6-17 tablet by ity of tablet 00:00: mouth at [place] 00 bedtime. Medical Branch furosemide 2022-0 Yes [id number] 60mg Take 3 U nivers 20 mg 6-17 tablets by ity of tablet 00:00: mouth [place] 00 every Medical morning Branch and evening. insulin 2022-0 Yes [id number] 15U inject 15 U nivers glargine 6-17 Units ity of 100 unit/mL 00:00: under the [place] injection 00 skin every Medi ga 12 Branch (twelve) hours. losartan 25 2022-0 Yes [id number] 25mg Take 1 [facility] mg tablet 6-17 tablet by ity o f 00:00: mouth in [place] 00 the Medical morning. Branch spironolact 2022-0 Yes [id number] 12.5mg Take 0.5 [facility] one 25 mg 6-17 tablets by ity of tablet 00:00: mouth in [place] 00 the Medical morning. Branch atorvastati 2022-0 Yes [id number] 40mg Take 1 [facility] n 40 mg 6-17 tablet by ity of tablet 00:00: mouth at [place] 00 bedtime. Medical Branch insulin 2022-0 Yes [id number] 15U inject 15 U nivers glargine 6-17 Units ity of 100 unit/mL 00:00: under the [place] injection 00 skin every Medi ga 12 Branch (twelve) hours. losartan 25 0 Yes [id number] 25mg Take 1 [facility] mg tablet 6-17 tablet by ity o f 00:00: mouth in [place] 00 the Medical morning. Branch spironolact 0 Yes [id number] 12.5mg Take 0.5 [facility] one 25 mg 6-17 tablets by ity of tablet 00:00: mouth in [place] 00 the Medical morning. Branch atorvastati 0 Yes [id number] 40mg Take 1 [facility] n 40 mg 6-17 tablet by ity of tablet 00:00: mouth at [place] 00 bedtime. Medical Branch insulin 0 Yes [id number] 15U inject 15 U nivers glargine 6-17 Units ity of 100 unit/mL 00:00: under the [place] injection 00 skin every Medi ga 12 Branch (twelve) hours. losartan 25 0 Yes [id number] 25mg Take 1 [facility] mg tablet 6-17 tablet by ity o f 00:00: mouth in [place] 00 the Medical morning. Branch spironolact 0 Yes [id number] 12.5mg Take 0.5 [facility] one 25 mg 6-17 tablets by ity of tablet 00:00: mouth in [place] 00 the Medical morning. Branch atorvastati 0 Yes [id number] 40mg Take 1 [facility] n 40 mg 6-17 tablet by ity of tablet 00:00: mouth at [place] 00 bedtime. Medical Branch insulin 0 Yes [id number] 15U inject 15 U nivers glargine 6-17 Units ity of 100 unit/mL 00:00: under the [place] injection 00 skin every Medi ga 12 Branch (twelve) hours. losartan 25 0 Yes [id number] 25mg Take 1 [facility] mg tablet 6-17 tablet by ity o f 00:00: mouth in [place] 00 the Medical morning. Branch spironolact 0 Yes [id number] 12.5mg Take 0.5 [facility] one 25 mg 6-17 tablets by ity of tablet 00:00: mouth in [place] 00 the Medical morning. Branch apixaban 5 2022-0 2022- No 1358 5mg Take 1 Univ ers mg tablet 6-17 10-02 tablet by ity of 00:00: 00:00 mouth in [place] 00 :00 the Medical morning Branch and 1 tablet in the evening. Indication s: atrial fibrillati on aspirin 81 2022-2022- No [id number] 81mg Take 1 [facility] mg chewable 6-17 10-02 tablet by it y of tablet 00:00: 00:00 mouth in [place] 00 :00 the Medical morning. Branch furosemide 2022-2022- No [id number] 60mg Take 3 [facility] 20 mg 6-17 10-02 tablets by ity of tablet 00:00: 00:00 mouth [place] 00 :00 every Medical morning Branch and evening. apixaban 5 2022-0 2022- No 1358 5mg Take 1 Univ ers mg tablet 6-17 10- tablet by ity of 00:00: 00:00 mouth in [place] 00 :00 the Medical morning Branch and 1 tablet in the evening. Indication s: atrial fibrillati on aspirin 81 2022-2022- No [id number] 81mg Take 1 [facility] mg chewable 6-17 10-02 tablet by it y of tablet 00:00: 00:00 mouth in [place] 00 :00 the Medical morning. Branch furosemide 2022-0 2022- No [id number] 60mg Take 3 [facility] 20 mg 6-17 10-02 tablets by ity of tablet 00:00: 00:00 mouth [place] 00 :00 every Medical morning Branch and evening. HYDROcodone 2022-2022- No [id number] 1{tbl} Take 1 U nivers -acetaminop 6-17 06-25 tablet by it y of hen 5-325 00:00: 04:59 mouth [place] mg tablet 00 :00 every 6 Medical (six) Branch hours as needed for Pain (scale 7-10) for up to 7 days. Indication s: acute pain carvediloL 2022-0 3- No [id number] 25mg Take 1 [facility] 25 mg 6-17 06-21 tablet by ity of tablet 00:00: 00:00 mouth in [place] 00 :00 the Medical morning Branch and 1 tablet in the evening. Take with meals. clopidogreL 2022-0 3- No [id number] 75mg Take 1 [facility] 75 mg 6-17 06-20 tablet by ity of tablet 00:00: 00:00 mouth in [place] 00 :00 the Medical morning. [place] HYDROcodone 2022- No [id number] 1{tbl} 1 tablet, Univers -acetaminop 10-31 Oral, ity of hen (NORCO 20:00: 19:00 ONCE, 1 [place] 5) 5-325 mg 00 :00 dose, On Medi ga tablet 1 Thu [place] tablet 10/31/22 at 1500, Routine iopamidol 2022- No ONCE INTRA U nivers (ISOVUE 10-31 PROCEDURE, ity o f 370-500 mL) 16:47: 16:56 Starting [place] injection 17 :57 on Thu Medical 10/31/22 at Branch 1147, Until Thu10/31/22 at 1156, Routine, CV Intraproce dure nitroglycer 2022- No ONCE INTRA Univers in (TRIDIL) 10-31 PROCEDURE, i ty of 2 mg in 10 16:26: 16:56 Starting [place] mL D5W for 26 :57 on Thu Medical Cardiac 10/31/22 at [place] Cath 1126, Until Thu10/31/22 at 1156, Routine, CV Intraproce dure adenosine 6 2022- No ONCE INTRA Univers mg/1000 mL 10-31 PROCEDURE, it y of INTRACORONA 16:26: 16:56 Starting [place] RY 10 :57 on Thu Medical injection 10/31/22 at [facility] for CATH 1126, LAB Until Thu10/31/22 at 1156, Routine, CV Intraproce dure NaCl 0.9% 2022- No CONTINUOUS U nivers (NS) bolus 10-31 PRN, ity of infusion 14:55: 14:55 [place] 44 :44 on Thu Medical 10/31/22 at Branch 0955, Until Thu10/31/22 at 0955, STAT, CV Intraproce dure lidocaine 2022- No ONCE INTRA U nivers 1% (PF) 10-31 PROCEDURE, ity o f (XYLOCAINE) 14:28: 16:56 Starting [place] injection 19 :57 on Thu Medical 10/31/22 at [place] 0928, Until Thu10/31/22 at 1156, Routine, CV Intraproce dure clopidogreL 2022- No [id number] 300mg 300 mg, Univers (PLAVIX) 10-30 Oral, ity of 300 mg 17:45: 17:06 ONCE, 1 [place] tablet 300 00 :00 dose, On Medic al mg [place] Branch 10/30/22 at 1245, Routine furosemide Yes 60mg 60 mg, Unive rs (LASIX) 10-29 Oral, ity of tablet 60 22:00: QAM+PM, [place] mg 00 First dose Medical on Thu10/29/22 at 1700, Until Discontinu ed, Routine furosemide Yes 60mg 60 mg, Unive rs (LASIX) 10-29 Oral, ity of tablet 60 22:00: QAM+PM, [place] mg 00 First dose Medical on Thu Branch 10/29/22 at 1700, Until Discontinu ed, Routine carvediloL Yes 25mg 25 mg, Unive rs (COREG) 10-29 Oral, BID ity of tablet 25 22:00: MEALS, [place] mg 00 First dose Medical (after Branch last modificati on) on Thu10/29/22 at 1700, Until Discontinu ed, Routine carvediloL 2022- No 25mg 25 mg, Univ ers (COREG) 10-29 Oral, BID ity of tablet 25 22:00: 18:57 MEALS, [place] mg 00 :53 First dose Medical (after Branch last modificati on) on Thu10/29/22 at 1700, Until Discontinu ed, Routine sulfur 2022- No [id number] 5mL 5 mL, Unive rs hexafluorid 10-29 Intravenou i ty of e microsphr 15:30: 15:30 s, ONCE, 1 [place] (LUMASON) 00 :00 dose, On Medica l injection 5 Thu Branch 10/29/22 at 1030, Routine
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 Restricted medication : ABDIFATAH MURRAY aspirin Yes [id number] 81mg 81 mg, Univ ers chewable 10-29 Oral, ity of tablet 81 14:00: DAILY, [place] mg 00 First dose Medical on Thu10/29/22 at 0900, Until Discontinu ed, Routine aspirin Yes [id number] 81mg 81 mg, Univ ers chewable 10-29 Oral, ity of tablet 81 14:00: DAILY, [place] mg 00 First dose Medical on Thu10/29/22 at 0900, Until Discontinu ed, Routine aspirin Yes [id number] 81mg 81 mg, Univ ers chewable 10-29 Oral, ity of tablet 81 14:00: DAILY, [place] mg 00 First dose Medical on Thu10/29/22 at 0900, Until Discontinu ed, Routine magnesium 2022- No 2g 2 g, IV Univ ers sulfate in 10-29 Piggyback, it y of water 2 11:00: 11:20 Administer [place] gram/50 mL 00 :00 over 60 Medica l (4 %) Minutes, Branch infusion 2 ONCE, 1 g dose, On Thu10/29/22 at 0600, SYED iopamidol 2022- No ONCE INTRA U nivers (ISOVUE 10-28 PROCEDURE, ity o f 370-500 mL) 17:33: 17:36 Starting [place] injection 18 :11 on [facility] Medical 10/28/22 at Branch 1233, Until Thu10/28/22 at 1236, Routine, CV Intraproce dure heparin 2022- No ONCE INTRA Uni vers 1,000 10-28 PROCEDURE, ity of unit/mL 17:13: 17:36 Starting [place] injection 56 :11 on [facility] 10/28/22 at Branch 1213, Until Thu10/28/22 at 1236, Routine, CV Intraproce dure nitroglycer 2022- No ONCE INTRA Univers in (TRIDIL) 10-28 PROCEDURE, i ty of 2 mg in 10 17:13: 17:36 Starting [place] mL D5W for 10 :11 on [facility] Cardiac 10/28/22 at Branch Cath 1213, Until Thu10/28/22 at 1236, Routine, CV Intraproce dure lidocaine 2022- No ONCE INTRA U nivers 1% (PF) 10-28 PROCEDURE, ity o f (XYLOCAINE) 16:51: 17:36 Starting [place] injection 29 :11 on [facility] 10/28/22 at Branch 1151, Until [facility] 10/28/22 at 1236, Routine, CV Intraproce dure midazolam 2022- No ONCE INTRA U nivers (VERSED) 10-28 PROCEDURE, ity of injection 16:48: 17:36 Starting [place] 00 :11 on [facility] 10/28/22 at Branch 1148, Until [facility] 10/28/22 at 1236, Routine, CV Intraproce dure FENTanyl PF 2022- No ONCE INTRA Univers (SUBLIMAZE 10-28 PROCEDURE, it y of (PF)) 16:48: 17:36 Starting [place] injection 00 :11 on [facility] 10/28/22 at Branch 1148, Until [facility] 10/28/22 at 1236, Routine, CV Intraproce dure magnesium 2022- No 2g 2 g, IV Univ ers sulfate in 10-28 Piggyback, it y of water 2 15:45: 15:55 Administer [place] gram/50 mL 00 :00 over 60 Medica l (4 %) Minutes, Branch infusion 2 ONCE, 1 g dose, On [facility] 10/28/22 at 1045, Routine aspirin 2022- No [id number] 325mg 325 mg, U nivers tablet 325 10-28 Oral, ity of mg 14:45: 14:26 ONCE, 1 [place] 00 :00 dose, On [facility] 10/28/22 at 0945, Routine docusate 2022-0 Yes 100mg 100 mg, Unive rs (COLACE) 10-28 Oral, ity of capsule 100 14:00: DAILY, [place] mg 00 First dose Medical on [facility] 10/28/22 at 0900, Until Discontinu ed, Routine docusate 2022-0 Yes 100mg 100 mg, Unive rs (COLACE) 10-28 Oral, ity of capsule 100 14:00: DAILY, [place] mg 00 First dose Medical on [facility] 10/28/22 at 0900, Until Discontinu ed, Routine docusate 2022-0 Yes 100mg 100 mg, Unive rs (COLACE) 10-28 Oral, ity of capsule 100 14:00: DAILY, [place] mg 00 First dose Medical on Thu10/28/22 at 0900, Until Discontinu ed, Routine acetaminoph 3-0 Yes 650mg 650 mg, Un jairo en 10-27 Oral, ity of (TYLENOL) 22:13: Q6HPRN, [place] tablet 650 38 Starting Medic al mg on Thu10/27/22 at 1713, Until Discontinu ed, Routine, Pain (scale 1-3), Pain (scale 4-6) acetaminoph 2022-0 Yes 650mg 650 mg, Un jairo en 12 Oral, ity of (TYLENOL) 22:13: Q6HPRN, [place] tablet 650 38 Starting Medic al mg on Thu10/27/22 at 1713, Until Discontinu ed, Routine, Pain (scale 1-3), Pain (scale 4-6) acetaminoph 2022-0 Yes 650mg 650 mg, Un jairo en 10-27 Oral, ity of (TYLENOL) 22:13: Q6HPRN, [place] tablet 650 38 Starting Medic al mg on Thu10/27/22 at 1713, Until Discontinu ed, Routine, Pain (scale 1-3), Pain (scale 4-6) carvediloL 2022-0 Yes 12.5mg 12.5 mg, U nivers (COREG) 10-27 Oral, BID ity of tablet 12.5 22:00: MEALS, [place] mg 00 First dose Medical (after Branch last modificati on) on Thu10/27/22 at 1700, Until Discontinu ed, Routine carvediloL 2022-0 2022- No 12.5mg 12.5 mg, Univers (COREG) 10-27 06-14 Oral, BID ity of tablet 12.5 22:00: 18:18 MEALS, [place] mg 00 :44 First dose Medical (after Branch last modificati on) on Thu10/27/22 at 1700, Until Discontinu ed, Routine hydralAZINE 2022-0 Yes 10mg 10 mg, Univ ers (APRESOLINE 10-27 Slow IV ity o f ) injection 21:45: Push, [place] 10 mg 59 Q6HPRN, Medical Starting Branch on Thu10/27/22 at 1645, Until Discontinu ed, STAT, SBP >150 hydralAZINE 3-0 Yes 10mg 10 mg, Univ ers (APRESOLINE 6-12 Slow IV ity o f ) injection 21:45: Push, [place] 10 mg 59 Q6HPRN, Medical Starting Branch on Thu10/27/22 at 1645, Until Discontinu ed, STAT, SBP >150 hydralAZINE 3-0 Yes 10mg 10 mg, Univ ers (APRESOLINE 6-12 Slow IV ity o f ) injection 21:45: Push, [place] 10 mg 59 Q6HPRN, Medical Starting Branch on Thu10/27/22 at 1645, Until Discontinu ed, STAT, SBP >150 D10W 10 % 2022-0 Yes at 20-40 Univ ers IV infusion 6-12 mL/hr, IV ity of 18:00: Infusion, [place] 48 TITRATE, Medical Starting Branch on Thu10/27/22 at 1300, Until Discontinu ed, Routine D10W 10 % 2022-0 Yes at 20-40 [facility] ers IV infusion 6-12 mL/hr, IV ity of 18:00: Infusion, [place] 48 TITRATE, Medical Starting Branch on Thu10/27/22 at 1300, Until Discontinu ed, Routine D10W 10 % 2022-0 Yes at 20-40 [facility] ers IV infusion 6-12 mL/hr, IV ity of 18:00: Infusion, [place] 48 TITRATE, Medical Starting Branch on Thu10/27/22 at 1300, Until Discontinu ed, Routine heparin 2022-0 Yes 0U/h 0-2,350 Univers 25,000 6-12 Units/hr ity of Units/250 17:02: (0-23.5 [place] mL 19 mL/hr), IV Medical (Premixed Infusion, Branc h Bag) in TITRATE, 0.45 % NS Parameters in Admin. Instr., Starting on Thu10/27/22 at 1202
In itiate dosing:&nb sp; & nbsp;&nbsp ; -Patient 73 kg or under: 1,300 Units/hr (Calculate d dose at 18 units/kg/h r) &n bsp; &nbs p; -Patient over 73 k,300 units/hr&n bsp;DO NOT Exceed the MAXIMUM 1,300 units/hr for initiation of heparin drip.&nbsp ; CAU TION - If LMWH given in ER, AVOID bolus and start next dose/drip 12 hrs after ER dosage.&nb sp; M ust program rate using programmab le infusion pump.&nbsp ; [place]ash[place] ck with the ordering provider first prior to any administra tion should the patient be on existing/a dditional anticoagul ant therapy. Rang e, Dosing and Testing: &nbs p;DO NOT ADJUST INITIAL BOLUS OR INITIAL INFUSION RATE.&nbsp ; _ &nb sp;FOR [facility], AND [facility] ONLY &nbs p; - aPTT < 35: & nbsp;Bolus 5000 units, increase rate 300 units/hr&n bsp; - aPTT 35-44:&nbs p; Darshan martina 3000 units, increase rate 200 units/hr&n bsp; - aPTT 45-54:&nbs p; In crease rate 100 units/hr&n bsp; - aPTT 55-85:&amp ;nbsp;&nbs p;NO CHANGE&nbs p; - aPTT 86-95:&nbs p; De crease rate 100 units/hr&n bsp; - aPTT 96-120:&nb sp; H old 30 minutes, decrease rate 150 units/hr&n bsp; - aPTT > 120: Hold 60 minutes, decrease rate 200 units/hr&n bsp; Check aPTT 6 hours after initiation , then Q6H after every change, aPTT Q12H once therapeuti c levels are reached.&n bsp; &nbs p; __ &n bsp;FOR [facility] ONLY - aPTT < 40: & nbsp;Bolus 5000 units, increase rate 300 units/hr&n bsp; - aPTT 40-49:&nbs p; Darshan martina 3000 units, increase rate 200 units/hr&n bsp; - aPTT 50-59:&nbs p; In crease rate 100 units/hr&n bsp; - aPTT 60-85:&nbs p; NO CHANGE&nbs p; - aPTT 86-95:&nbs p;&nbs p;Decrease rate 100 units/hr&n bsp; - aPTT 96-120:&nb sp; H old 30 minutes, decrease rate 150 units/hr&n bsp; - aPTT > 120: Hold 60 minutes, decrease rate 200 units/hr&n bsp; Check aPTT 6 hours after initiation , then Q6H after every change, aPTT Q12H once therapeuti c levels are reached.<b r> heparin 2022-2022- No 0U/h 0-2,350 Univer s 25,000 6-12 06-16 Units/hr ity of Units/250 17:02: 20:21 (0-23.5 [place] mL 19 :55 mL/hr), IV Medical (Premixed Infusion, Branc h Bag) in TITRATE, 0.45 % NS Parameters in Admin. Instr., Starting on 10/27/22 at 1202
In itiate dosing:&nb sp; & nbsp;&nbsp ; -Patient 73 kg or under: 1,300 Units/hr (Calculate d dose at 18 units/kg/h r) &n bsp; &nbs p; -Patient over 73 k,300 units/hr&n bsp;DO NOT Exceed the MAXIMUM 1,300 units/hr for initiation of heparin drip.&nbsp ; CAU TION - If LMWH given in ER, AVOID bolus and start next dose/drip 12 hrs after ER dosage.&nb sp; M ust program rate using programmab le infusion pump.&nbsp ; [place]ashon ck with the ordering provider first prior to any administra tion should the patient be on existing/a dditional anticoagul ant therapy. Rang e, Dosing and Testing: &nbs p;DO NOT ADJUST INITIAL BOLUS OR INITIAL INFUSION RATE.&nbsp ; _ &nb sp;FOR [place], AND [facility] ONLY &nbs p; - aPTT < 35: & nbsp;Bolus 5000 units, increase rate 300 units/hr&n bsp; - aPTT 35-44:&nbs p; Darshan martina 3000 units, increase rate 200 units/hr&n bsp; - aPTT 45-54:&nbs p; In crease rate 100 units/hr&n bsp; - aPTT 55-85:&amp ;nbsp;&nbs p;NO CHANGE&nbs p; - aPTT 86-95:&nbs p; De crease rate 100 units/hr&n bsp; - aPTT 96-120:&nb sp; H old 30 minutes, decrease rate 150 units/hr&n bsp; - aPTT > 120: Hold 60 minutes, decrease rate 200 units/hr&n bsp; Check aPTT 6 hours after initiation , then Q6H after every change, aPTT Q12H once therapeuti c levels are reached.&n bsp; &nbs p; __ &n bsp;FOR [facility] ONLY - aPTT < 40: & nbsp;Bolus 5000 units, increase rate 300 units/hr&n bsp; - aPTT 40-49:&nbs p; Darshan martina 3000 units, increase rate 200 units/hr&n bsp; - aPTT 50-59:&nbs p; In crease rate 100 units/hr&n bsp; - aPTT 60-85:&nbs p; NO CHANGE&nbs p; - aPTT 86-95:&nbs p;&nbs p;Decrease rate 100 units/hr&n bsp; - aPTT 96-120:&nb sp; H old 30 minutes, decrease rate 150 units/hr&n bsp; - aPTT > 120: Hold 60 minutes, decrease rate 200 units/hr&n bsp; Check aPTT 6 hours after initiation , then Q6H after every change, aPTT Q12H once therapeuti c levels are reached.<b r> heparin 2022-0 Yes 3000U FOR Univers (1,000 6-12 REBOLUSING ity of unit/mL, 10 17:00: , Starting [place] mL vial) 55 on [facility] 10/27/22 at Branch 1200, Until Discontinu ed, Routine
Dosing based on aPTT testing parameters (refer to continuous heparin drip order)
heparin 2022-0 202- No 3000U FOR Univers (1,000 6-12 06-16 REBOLUSING ity of unit/mL, 10 17:00: 20:21 , Starting [place] mL vial) 55 :55 on Mon Medical 10/27/22 at Branch 1200, Until 10/31/22 at 1521, Routine
Dosing based on aPTT testing parameters (refer to continuous heparin drip order)
nitroglycer 2022-0 Yes 5ug/min 5-200 Un [place] in 50 mg in 6-12 mcg/min ity o f D5W 250 mL 16:53: (1.5-60 [place] infusion 01 mL/hr), IV Medic al RTU Infusion, Branch TITRATE, SBP>140 or DBP>100, Starting on Thu10/27/22 at 1153
In itiate infusion at 5 mcg/min.&n bsp; Titrate by 5 mcg/min every 3 minutes to 5 minutes as needed to achieve and maintain goal blood pressure. Maximum dose = 200 mcg/min. If goal not maintained at maximum allowed dose, contact prescriber . &nb sp;A) Monitor/do cument blood pressure, heart rate, and heart rhythm q5 minutes x 2 with each dose increase.& amp;nbsp;& nbsp;NHO if: SBP<90 mmHg, HR<50 or >130 bpm or during weaning, if SBP>150 or DBP>100 mmHg.&nbsp ; Blanco Hoyt ns: & nbsp;a. If dose >40 mcg/min, wean in decrements of 10 mcg/min every 30 minutes.&n bsp; b. If dose <40 mcg/min, wean in decrements of 5 mcg/min every 30 minutes. c. Or as directed by the Heart Failure Faculty.<b r> nitroglycer 2022-0 Yes 5ug/min 5-200 Un [place] in 50 mg in 6-12 mcg/min ity o f D5W 250 mL 16:53: (1.5-60 [place] infusion 01 mL/hr), IV Medic al RTU Infusion, Branch TITRATE, SBP>140 or DBP>100, Starting on Thu10/27/22 at 1153
In itiate infusion at 5 mcg/min.&n bsp; Titrate by 5 mcg/min every 3 minutes to 5 minutes as needed to achieve and maintain goal blood pressure. Maximum dose = 200 mcg/min. If goal not maintained at maximum allowed dose, contact prescriber . &nb sp;A) Monitor/do cument blood pressure, heart rate, and heart rhythm q5 minutes x 2 with each dose increase.& amp;nbsp;& nbsp;NHO if: SBP<90 mmHg, HR<50 or >130 bpm or during weaning, if SBP>150 or DBP>100 mmHg.&nbsp ; Blanco Hoyt ns: & nbsp;a. If dose >40 mcg/min, wean in decrements of 10 mcg/min every 30 minutes.&n bsp; b. If dose <40 mcg/min, wean in decrements of 5 mcg/min every 30 minutes. c. Or as directed by the Heart Failure Faculty.<b r> nitroglycer Yes 5ug/min 5-200 [place] in 50 mg in 6-12 mcg/min ity o f D5W 250 mL 16:53: [place] infusion 01 mL/hr[place] IV Medic al RTU Infusion, Branch TITRATE, SBP>140 or DBP>100, Starting on Thu10/27/22 at 1153
In itiate infusion at 5 mcg/min.&n bsp; Titrate by 5 mcg/min every 3 minutes to 5 minutes as needed to achieve and maintain goal blood pressure. Maximum dose = 200 mcg/min. If goal not maintained at maximum allowed dose, contact prescriber . &nb sp;A) Monitor/do cument blood pressure, heart rate, and heart rhythm q5 minutes x 2 with each dose increase.& amp;nbsp;& nbsp;NHO if: SBP<90 mmHg, HR<50 or >130 bpm or during weaning, if SBP>150 or DBP>100 mmHg.&nbsp ; Blanco Hoyt ns: & nbsp;a. If dose >40 mcg/min, wean in decrements of 10 mcg/min every 30 minutes.&n bsp; b. If dose <40 mcg/min, wean in decrements of 5 mcg/min every 30 minutes. c. Or as directed by the Heart Failure Faculty.<b r> KCL 2022-0 2022- No 40meq 40 mEq, Univers (KLOR-CON 10-27-12 Oral, ity of M20) tablet 15:45: 15:51 [place]CE, 1 [place] 40 [place]Eq 00 :00 dose, On Medical [facility] 10/27/22 at 1045, Routine magnesium 2023-0 2023- No 2g 2 g, IV Univ ers sulfate in 10-27 Piggyback, it y of water 2 15:30: 16:51 Administer Alexi as gram/50 mL 00 :00 over 60 Medica l (4 %) Minutes, Branch infusion 2 ONCE, 1 g dose, On [facility] 10/27/22 at 1030, Routine pantoprazol 2023-0 Yes 40mg 40 mg, Univ ers e - Oral, ity of (PROTONIX) 14:00: DAILY, [place] EC tablet 00 First dose Medi ga 40 mg on [facility] 10/27/22 at 0900, Until Discontinu ed, Routine fenofibrate 2023-0 Yes 134mg 134 mg, [place] micronized 10-27 Oral, ity of (LOFIBRA) 14:00: DAILY, [place] capsule 134 00 First dose Me dical mg on [facility] 10/27/22 at 0900, Until Discontinu ed ezetimibe 3-0 Yes 10mg 10 mg, Univer s (ZETIA) - Oral, ity of tablet 10 14:00: DAILY, [place] mg 00 First dose Medical on [facility] 10/27/22 at 0900, Until Discontinu ed, Routine DULoxetine 3-0 Yes 60mg 60 mg, Unive rs (CYMBALTA) - Oral, ity of capsule 60 14:00: DAILY, [place] mg 00 First dose Medical on [facility] 10/27/22 at 0900, Until Discontinu ed, Routine clopidogreL 3-0 Yes 75mg 75 mg, Univ ers (PLAVIX) 75 10-27 Oral, ity of mg tablet 14:00: DAILY, [place] 75 mg 00 First dose Medical on [facility] 10/27/22 at 0900, Until Discontinu ed, Routine pantoprazol 2023-0 Yes 40mg 40 mg, Univ ers e 6-12 Oral, ity of (PROTONIX) 14:00: DAILY, [place] EC tablet 00 First dose Medi ag 40 mg on [facility] 10/27/22 at 0900, Until Discontinu ed, Routine fenofibrate 2023-0 Yes 134mg 134 mg, [place] micronized 6-12 Oral, ity of (LOFIBRA) 14:00: DAILY, [place] capsule 134 00 First dose Me dical mg on [facility] 10/27/22 at 0900, Until Discontinu ed ezetimibe 3-0 Yes 10mg 10 mg, Univer s (ZETIA) 6-12 Oral, ity of tablet 10 14:00: DAILY, [place] mg 00 First dose Medical on [facility] 10/27/22 at 0900, Until Discontinu ed, Routine DULoxetine 2023-0 Yes 60mg 60 mg, Unive rs (CYMBALTA) 6-12 Oral, ity of capsule 60 14:00: DAILY, [place] mg 00 First dose Medical on [facility] 10/27/22 at 0900, Until Discontinu ed, Routine clopidogreL 2023-0 Yes 75mg 75 mg, Univ ers (PLAVIX) 75 6-12 Oral, ity of mg tablet 14:00: DAILY, [place] 75 mg 00 First dose Medical on [facility] 10/27/22 at 0900, Until Discontinu ed, Routine pantoprazol 3-0 Yes 40mg 40 mg, Univ ers e 6-12 Oral, ity of (PROTONIX) 14:00: DAILY, [place] EC tablet 00 First dose Medi ga 40 mg on [facility] 10/27/22 at 0900, Until Discontinu ed, Routine fenofibrate 3-0 Yes 134mg 134 mg, [place] micronized 6-12 Oral, ity of (LOFIBRA) 14:00: DAILY, [place] capsule 134 00 First dose Me dical mg on [facility] 10/27/22 at 0900, Until Discontinu ed ezetimibe 3-0 Yes 10mg 10 mg, Univer s (ZETIA) 6-12 Oral, ity of tablet 10 14:00: DAILY, [place] mg 00 First dose Medical on [facility] 10/27/22 at 0900, Until Discontinu ed, Routine DULoxetine 2023-0 Yes 60mg 60 mg, Unive rs (CYMBALTA) 6-12 Oral, ity of capsule 60 14:00: DAILY, [place] mg 00 First dose Medical on [facility] 10/27/22 at 0900, Until Discontinu ed, Routine clopidogreL 2023-0 Yes 75mg 75 mg, Univ ers (PLAVIX) 75 6-12 Oral, ity of mg tablet 14:00: DAILY, [place] 75 mg 00 First dose Medical on [facility] 10/27/22 at 0900, Until Discontinu ed, Routine clonazePAM 2023-0 Yes 1mg 1 mg, Univer s (KLONOPIN) 6-12 Oral, QHS, ity of tablet 1 mg 02:00: First dose 00 on [facility] 10/26/22 at Branch 2100, Until Discontinu ed, Routine clonazePAM 2023-0 Yes 1mg 1 mg, Univer s (KLONOPIN) 6-12 Oral, QHS, ity of tablet 1 mg 02:00: First dose on [facility] 10/26/22 at Branch 2100, Until Discontinu ed, Routine clonazePAM 2023-0 Yes 1mg 1 mg, Univer s (KLONOPIN) 6-12 Oral, QHS, ity of tablet 1 mg 02:00: First dose on [facility] 10/26/22 at Branch 2100, Until Discontinu ed, Routine losartan 2023-0 Yes 25mg 25 mg, Univers (COZAAR) 6-12 Oral, ity of tablet 25 01:00: DAILY, [place] mg 00 First dose Medical (after Branch last modificati on) on [place] 10/26/22 at 2000, Until Discontinu ed, Routine losartan 2023-0 Yes 25mg 25 mg, Univers (COZAAR) 6-12 Oral, ity of tablet 25 01:00: DAILY, [place] mg 00 First dose Medical (after Branch last modificati on) on [place] 10/26/22 at 2000, Until Discontinu ed, Routine furosemide 2023-0 Yes 40mg 40 mg, Unive rs (LASIX) 6-12 Slow IV ity of injection 01:00: Push, [place] 40 mg 00 Q12H, Medical First dose Branch on [place] 10/26/22 at 2000, Until Discontinu ed, Routine losartan 2023-0 Yes 25mg 25 mg, Univers (COZAAR) 6-12 Oral, ity of tablet 25 01:00: DAILY, [place] mg 00 First dose Medical (after Branch last modificati on) on [place] 10/26/22 at 2000, Until Discontinu ed, Routine furosemide 2023-0 2023- No 40mg 40 mg, Univ ers (LASIX) 6-12 06-14 Slow IV ity of injection 01:00: 19:33 Push, [place] 40 mg 00 :44 Q12H, Medical First dose Branch on [place] 10/26/22 at 2000, Until Discontinu ed, Routine magnesium No 2g 2 g, IV Univ ers sulfate in 10-27 Piggyback, it y of water 2 00:00: 00:31 Administer Alexi as gram/50 mL 00 :00 over 60 Medica l (4 %) Minutes, Branch infusion 2 ONCE, 1 g dose, On [place] 10/26/22 at 1900, Routine spironolact Yes 12.5mg 12.5 mg, Univers one 10-26 Oral, ity of (ALDACTONE) 22:00: DAILY, [place] tablet 12.5 00 First dose Me dical mg on [facility] 10/26/22 at 1700, Until Discontinu ed, Routine spironolact Yes 12.5mg 12.5 mg, Univers one 10-26 Oral, ity of (ALDACTONE) 22:00: DAILY, [place] tablet 12.5 00 First dose Me dical mg on [facility] 10/26/22 at 1700, Until Discontinu ed, Routine spironolact Yes 12.5mg 12.5 mg, Univers one 10-26 Oral, ity of (ALDACTONE) 22:00: DAILY, [place] tablet 12.5 00 First dose Me dical mg on [facility] 10/26/22 at 1700, Until Discontinu ed, Routine enoxaparin 2022- No 40mg 40 mg, Univ ers (LOVENOX) 10-26 Subcutaneo ity of injection 22:00: 17:02 [place], DAILY, [place] 40 mg 00 :38 First dose Medical on [facility] 10/26/22 at 1700, Until Discontinu ed, Routine carvediloL 2022- No 6.25mg 6.25 mg, Univers (COREG) 10-26 Oral, BID ity of tablet 6.25 22:00: 21:45 MEALS, Alexi as mg 00 :36 First dose Medical on [facility] 10/26/22 at 1700, Until Discontinu ed, Routine gabapentin Yes 800mg 800 mg, Uni vers (NEURONTIN) 10-26 Oral, TID, it y of capsule 800 19:00: First dose [place] mg 00 on [facility] 10/26/22 at Branch 1400, Until Discontinu ed gabapentin Yes 800mg 800 mg, Uni vers (NEURONTIN) 11 Oral, TID, it y of capsule 800 19:00: First dose [place] mg 00 on [facility] 10/26/22 at Branch 1400, Until Discontinu ed gabapentin 0 Yes 800mg 800 mg, Uni vers (NEURONTIN) 10-26 Oral, TID, it y of capsule 800 19:00: First dose [place] mg 00 on [facility] 10/26/22 at Branch 1400, Until Discontinu ed acetaminoph 2022- No 650mg 650 mg, U nivers en 10-26 Oral, ity of (TYLENOL) 18:57: 13:59 Q6HPRN, [place] tablet 650 52 :36 Starting Medic al mg on [facility] 10/26/22 at 1357, Until Thu10/28/22 at 0859, Routine, Pain (scale 1-3), Pain (scale 4-6) Sliding Yes Subcutaneo Univ ers Scale 6-11 us, TID ity of Insulin - 14:30: MEALS+HS, [place] as Lispro 00 First dose Medical (HumaLOG) on [facility] 10/26/22 at 0930, Until Discontinu ed, Routine Sliding Yes Subcutaneo Univ ers Scale 6-11 us, TID ity of Insulin - 14:30: MEALS+HS, [place] Lispro 00 First dose Medical (HumaLOG) on [facility] 10/26/22 at 0930, Until Discontinu ed, Routine insulin Yes 15U 15 Units, Unive rs glargine 10-26 Subcutaneo ity o f (LANTUS 14:30: us, Q12H, [place] U-100) 00 First dose Medical injection (after Branch 15 Units last modificati on) on [place] 10/26/22 at 0930, Until Discontinu ed, Routine Sliding 0 Yes Subcutaneo Univ ers Scale 6-11 us, TID ity of Insulin - 14:30: MEALS+HS, [place] as Lispro 00 First dose Medical (HumaLOG) on [place] Branch 10/26/22 at 0930, Until Discontinu ed, Routine insulin 2022-0 Yes 15U 15 Units, Unive rs glargine 6-11 Subcutaneo ity o f (LANTUS 14:30: us, Q12H, [place] U-100) 00 First dose Medical injection (after Branch 15 Units last modificati on) on [place] 10/26/22 at 0930, Until Discontinu ed, Routine insulin 2022- No 15U 15 Units, Univ ers glargine 6-11 06-17 Subcutaneo ity of (LANTUS 14:30: 21:28 us, Q12H, [place] U-100) 00 :10 First dose Medical injection (after Branch 15 Units last modificati on) on [place] 10/26/22 at 0930, Until Discontinu ed, Routine GABAPENTIN 0 Yes 800mg Take 800 [place] ORAL 6-11 mg by ity of 09:09: mouth 3 [place] [address] (three) Medical times Branch daily. ezetimibe 0 Yes 10mg Take 10 mg [place] (ZETIA) 10 6-11 by mouth ity o f mg tablet 09:09: daily. [address] insulin 2022-0 Yes 15U inject 15 Unive rs glargine 6-11 Units ity of 100 unit/mL 09:09: under the [place] injection 56 skin every Medi ga 12 Branch (twelve) hours. DULoxetine 2022-0 Yes 1{capsu Take 1 [place] 60 mg 6-11 le} capsule by ity of capsule 09:09: mouth in [place] [address] the Medical morning. Branch Fenofibrate 2022-0 Yes 1{capsu Take 1 U nivers 150 mg 6-11 le} capsule by ity of capsule 09:09: mouth in [place] [address] the Medical morning. Branch losartan 50 2022-0 Yes 1{tbl} Take 1 [place] mg tablet 6-11 tablet by ity o f 09:09: mouth in [place] [address] the Medical morning. Branch GABAPENTIN 2022-0 Yes 800mg Take 800 [place] ORAL 6-11 mg by ity of 09:09: mouth 3 [place] [address] (three) Medical times Branch daily. ezetimibe 2022-0 Yes 10mg Take 10 mg [place] (ZETIA) 10 6-11 by mouth ity o f mg tablet 09:09: daily. [place] [address] Medical Branch insulin 0 Yes 15U inject 15 Unive rs glargine 6-11 Units ity of 100 unit/mL 09:09: under the [place] injection 56 skin every Medi ga 12 Branch (twelve) hours. DULoxetine Yes 1{capsu Take 1 [place] 60 mg 6-11 le} capsule by ity of capsule 09:09: mouth in [place] [address] the Medical morning. Branch Fenofibrate 0 Yes 1{capsu Take 1 U [place] 150 mg 6-11 le} capsule by ity of capsule 09:09: mouth in [place] [address] the Medical morning. Branch losartan 50 0 Yes 1{tbl} Take 1 [place] mg tablet 6-11 tablet by ity o f 09:09: mouth in [place] [address] the Medical morning. Branch BIOTIN ORAL Yes 2000mg Take 2,000 Univers 6-11 mg by ity of 09:09: mouth [place] 55 daily. Medical Branch metFORMIN 0 Yes 1000mg Take 1,000 Univers (GLUCOPHAGE 6-11 mg by ity of ) 1,000 mg 09:09: mouth 2 [place] tablet 55 (two) Medical times Branch daily with meals. potassium Yes 20meq Take 20 Univ ers chloride 6-11 mEq by ity of (K-DUR) 10 09:09: mouth [place] mEq CR 55 daily. Medical tablet Branch tolterodine Yes 4mg Take 4 mg [place] (DETROL 6-11 by mouth ity o f [place]) 4 mg 24 09:09: daily. [place] hr capsule 55 Medical Branch Fentanyl, 0 Yes Univers Bulk, 100 % 6-11 ity of Powd 09:09: [place] [address] Medical Branch insulin 0 Yes 25U inject 25 Unive rs glargine 6-11 Units ity of 100 unit/mL 09:09: under the [place] injection 55 skin every Medi ga evening. Branch diazePAM 5 0 Yes (Schedule [place] mg tablet 6-11 IV Drug) ity of 09:09: TAKE 1 [place] 55 TABLET BY Medical MOUTH Branch EVERY EVENING raloxifene 2023-0 Yes 1 tablet Uni vers 60 mg 6-11 ity of tablet 09:09: [place] [address] Medical Branch BIOTIN ORAL 0 Yes 2000mg Take 2,000 Univers 6-11 mg by ity of 09:09: mouth [place] 55 daily. Medical Branch metFORMIN 0 Yes 1000mg Take 1,000 Univers (GLUCOPHAGE 6-11 mg by ity of ) 1,000 mg 09:09: mouth 2 [place] tablet 55 (two) Medical times Branch daily with meals. potassium Yes 20meq Take 20 Univ ers chloride 6-11 mEq by ity of (K-DUR) 10 09:09: mouth [place] mEq CR 55 daily. Medical tablet Branch tolterodine Yes 4mg Take 4 mg [place] (DETROL 6-11 by mouth ity o f [place]) 4 mg 24 09:09: daily. [place] hr capsule 55 Medical Branch Fentanyl, 0 Yes Univers Bulk, 100 % 6-11 ity of Powd 09:09: [address] Branch insulin Yes 25U inject 25 Unive rs glargine 6-11 Units ity of 100 unit/mL 09:09: under the [place] injection 55 skin every Medi ga evening. Branch diazePAM 5 Yes (Schedule [place] mg tablet 10-26 IV Drug) ity of 09:09: TAKE 1 [place] 55 TABLET BY Medical MOUTH Branch EVERY EVENING raloxifene 0 Yes 1 tablet Uni vers 60 mg 6-11 ity of tablet 09:09: [address] Branch furosemide 2022-0 2022- No 40mg 40 mg, IV U nivers (LASIX) 10-2611 Push, ity of injection 08:15: 08:05 ONCE, 1 [place] 40 mg 00 :00 dose, On [facility] [place] [facility] 10/26/22 at 0315, SYED spironolact 2022- No [id number] 12.5mg Take 0.5 Univers one 25 mg 4-23 05-24 tablets by ity of tablet 00:00: 04:59 mouth in [place] 00 :00 the Medical morning Branch for 30 days. spironolact 2022- No [id number] 12.5mg Take 0.5 Univers one 25 mg 4-23 05-24 tablets by ity of tablet 00:00: 04:59 mouth in [place] 00 :00 the Medical morning Branch for 30 days. spironolact 2022- No [id number] 12.5mg Take 0.5 Univers one 25 mg 4-23 05-24 tablets by ity of tablet 00:00: 04:59 mouth in [place] 00 :00 the Medical morning Branch for 30 days. spironolact 2022- No [id number] 12.5mg Take 0.5 Univers one 25 mg 4-23 05-24 tablets by ity of tablet 00:00: 04:59 mouth in [place] 00 :00 the Medical morning Branch for 30 days. spironolact 2022- No [id number] 12.5mg Take 0.5 Univers one 25 mg 4-23 05-24 tablets by ity of tablet 00:00: 04:59 mouth in [place] 00 :00 the Medical morning Branch for 30 days. BIOTIN ORAL 0 Yes 2000mg Take 2,000 Univers 4-22 mg by ity of 19:45: mouth [place] 58 daily. Medical Branch GABAPENTIN Yes 800mg Take 800 [place] ORAL 4-22 mg by ity of 19:45: mouth 3 [place] [address] (three) Medical times Branch daily. metFORMIN Yes 1000mg Take 1,000 Univers (GLUCOPHAGE 4-22 mg by ity of ) 1,000 mg 19:45: mouth 2 [place] tablet 58 (two) Medical times Branch daily with meals. potassium Yes 20meq Take 20 Univ ers chloride 4-22 mEq by ity of (K-DUR) 10 19:45: mouth [place] mEq CR 58 daily. Medical tablet Branch tolterodine Yes 4mg Take 4 mg U [place] (DETROL 4-22 by mouth ity o f [place]) 4 mg 24 19:45: daily. [place] hr capsule 58 Medical Branch ezetimibe 0 Yes 10mg Take 10 mg [place] (ZETIA) 10 4-22 by mouth ity o f mg tablet 19:45: daily. [place] [address] Medical Branch Fentanyl, Yes Univers Bulk, 100 % 4-22 ity of Powd 19:45: [place] [address] Medical Branch insulin 2023-0 Yes 15U inject 15 Unive rs glargine 4-22 Units ity of 100 unit/mL 19:45: under the [place] injection 58 skin every Medi ga 12 Branch (twelve) hours. insulin 0 Yes 25U inject 25 Unive rs glargine 4-22 Units ity of 100 unit/mL 19:45: under the [place] injection 58 skin every Medi ga evening. Branch diazePAM 5 Yes (Schedule [place] mg tablet 4-22 IV Drug) ity of 19:45: TAKE 1 [place] 58 TABLET BY Medical MOUTH Branch EVERY EVENING DULoxetine Yes 1{capsu Take 1 [place] 60 mg 4-22 le} capsule by ity of capsule 19:45: mouth in [place] [address] the Medical morning. Branch Fenofibrate Yes 1{capsu Take 1 U nivers 150 mg 4-22 le} capsule by ity of capsule 19:45: mouth in [place] [address] the Medical morning. Branch losartan 50 0 Yes 1{tbl} Take 1 [place] mg tablet 4-22 tablet by ity o f 19:45: mouth in [place] [address] the Medical morning. Branch raloxifene Yes 1 tablet Uni vers 60 mg 4-22 ity of tablet 19:45: [place] 58 Medical Branch BIOTIN ORAL 2022-0 Yes 2000mg Take 2,000 Univers 4-22 mg by ity of 19:45: mouth [place] 58 daily. Medical Branch GABAPENTIN 0 Yes 800mg Take 800 [place] ORAL 4-22 mg by ity of 19:45: mouth 3 [place] 58 (three) Medical times Branch daily. metFORMIN 2022-0 Yes 1000mg Take 1,000 Univers (GLUCOPHAGE 4-22 mg by ity of ) 1,000 mg 19:45: mouth 2 [place] tablet 58 (two) Medical times Branch daily with meals. potassium 2022-0 Yes 20meq Take 20 Univ ers chloride 4-22 mEq by ity of (K-DUR) 10 19:45: mouth [place] mEq CR 58 daily. Medical tablet Branch tolterodine 0 Yes 4mg Take 4 mg [place] (DETROL 4-22 by mouth ity o f [place]) 4 mg 24 19:45: daily. [place] hr capsule 58 Medical Branch ezetimibe 2022-0 Yes 10mg Take 10 mg [place] (ZETIA) 10 4-22 by mouth ity o f mg tablet 19:45: daily. [place] [address] Medical Branch Fentanyl, 2022-0 Yes Univers Bulk, 100 % 4-22 ity of Powd 19:45: [place] [address] Medical Branch insulin 2022-0 Yes 15U inject 15 Unive rs glargine 4-22 Units ity of 100 unit/mL 19:45: under the [place] injection 58 skin every Medi ga 12 Branch (twelve) hours. insulin 2022-0 Yes 25U inject 25 Unive rs glargine 4-22 Units ity of 100 unit/mL 19:45: under the [place] injection 58 skin every Medi ga evening. Branch diazePAM 5 0 Yes (Schedule [place] mg tablet 4-22 IV Drug) ity of 19:45: TAKE 1 [place] 58 TABLET BY Medical MOUTH Branch EVERY EVENING DULoxetine 0 Yes 1{capsu Take 1 [place] 60 mg 4-22 le} capsule by ity of capsule 19:45: mouth in [place] [address] the Medical morning. Branch Fenofibrate 0 Yes 1{capsu Take 1 U n[place] 150 mg 4-22 le} capsule by ity of capsule 19:45: mouth in [place] [address] the Medical morning. Branch losartan 50 0 Yes 1{tbl} Take 1 [place] mg tablet 4-22 tablet by ity o f 19:45: mouth in [place] [address] the Medical morning. Branch raloxifene 0 Yes 1 tablet Uni vers 60 mg 4-22 ity of tablet 19:45: [place] [address] Medical Branch BIOTIN ORAL 2022-0 Yes 2000mg Take 2,000 Univers 4-22 mg by ity of 19:45: mouth [place] [address] daily. Medical Branch GABAPENTIN 2022-0 Yes 800mg Take 800 [place] ORAL 4-22 mg by ity of 19:45: mouth 3 [place] 58 (three) Medical times Branch daily. metFORMIN 2022-0 Yes 1000mg Take 1,000 Univers (GLUCOPHAGE 4-22 mg by ity of ) 1,000 mg 19:45: mouth 2 [place] tablet 58 (two) Medical times Branch daily with meals. potassium 2022-0 Yes 20meq Take 20 Univ ers chloride 4-22 mEq by ity of (K-DUR) 10 19:45: mouth [place] mEq CR 58 daily. Medical tablet Branch tolterodine Yes 4mg Take 4 mg [place] (DETROL 4-22 by mouth ity o f [place]) 4 mg 24 19:45: daily. [place] hr capsule 58 Medical Branch ezetimibe 0 Yes 10mg Take 10 mg [place] (ZETIA) 10 4-22 by mouth ity o f mg tablet 19:45: daily. [place] [address] Medical Branch Fentanyl, 0 Yes Univers Bulk, 100 % 4-22 ity of Powd 19:45: [place] [address] Medical Branch insulin Yes 15U inject 15 Unive rs glargine 4-22 Units ity of 100 unit/mL 19:45: under the [place] injection 58 skin every Medi ga 12 Branch (twelve) hours. insulin 0 Yes 25U inject 25 Unive rs glargine 4-22 Units ity of 100 unit/mL 19:45: under the [place] injection 58 skin every [facility] evening. Branch diazePAM 5 Yes (Schedule [place] mg tablet 4-22 IV Drug) ity of 19:45: TAKE 1 [place] 58 TABLET BY Medical MOUTH Branch EVERY EVENING DULoxetine Yes 1{capsu Take 1 [place] 60 mg 4-22 le} capsule by ity of capsule 19:45: mouth in [place] [address] the Medical morning. Branch Fenofibrate Yes 1{capsu Take 1 U nivers 150 mg 4-22 le} capsule by ity of capsule 19:45: mouth in [place] [address] the Medical morning. Branch losartan 50 Yes 1{tbl} Take 1 [place] mg tablet 4-22 tablet by ity o f 19:45: mouth in [place] [address] the Medical morning. Branch raloxifene Yes 1 tablet Uni vers 60 mg 4-22 ity of tablet 19:45: [place] [address] Medical Branch BIOTIN ORAL 0 Yes 2000mg Take 2,000 Univers 4-22 mg by ity of 19:45: mouth [place] 58 daily. Medical Branch GABAPENTIN 0 Yes 800mg Take 800 [place] ORAL 4-22 mg by ity of 19:45: mouth 3 [place] 58 (three) Medical times Branch daily. metFORMIN 2023-0 Yes 1000mg Take 1,000 Univers (GLUCOPHAGE 4-22 mg by ity of ) 1,000 mg 19:45: mouth 2 [place] tablet 58 (two) Medical times Branch daily with meals. potassium Yes 20meq Take 20 Univ ers chloride 4-22 mEq by ity of (K-DUR) 10 19:45: mouth [place] mEq CR 58 daily. Medical tablet Branch tolterodine Yes 4mg Take 4 mg [place] (DETROL 4-22 by mouth ity o f [place]) 4 mg 24 19:45: daily. [place] hr capsule 58 Medical Branch ezetimibe Yes 10mg Take 10 mg [place] (ZETIA) 10 4-22 by mouth ity o f mg tablet 19:45: daily. [address] Fentanyl, Yes Univers Bulk, 100 % 4-22 ity of Powd 19:45: [address] insulin Yes 15U inject 15 Unive rs glargine 4-22 Units ity of 100 unit/mL 19:45: under the [place] injection 58 skin every [facility] 12 Branch (twelve) hours. insulin Yes 25U inject 25 Unive rs glargine 4-22 Units ity of 100 unit/mL 19:45: under the [place] injection 58 skin every [facility] evening. Branch diazePAM 5 Yes (Schedule [place] mg tablet 4-22 IV Drug) ity of 19:45: TAKE 1 [place] 58 TABLET BY Medical MOUTH Branch EVERY EVENING DULoxetine Yes 1{capsu Take 1 [place] 60 mg 4-22 le} capsule by ity of capsule 19:45: mouth in [place] [address] the Medical morning. Branch Fenofibrate Yes 1{capsu Take 1 U nivers 150 mg 4-22 le} capsule by ity of capsule 19:45: mouth in [place] [address] the Medical morning. Branch losartan 50 Yes 1{tbl} Take 1 [place] mg tablet 4-22 tablet by ity o f 19:45: mouth in [place] [address] the Medical morning. Branch raloxifene Yes 1 tablet Uni vers 60 mg 4-22 ity of tablet 19:45: [address] BIOTIN ORAL 2023-0 Yes 2000mg Take 2,000 Univers 4-22 mg by ity of 19:45: mouth [place] 58 daily. Medical Branch GABAPENTIN 2022-0 Yes 800mg Take 800 [place] ORAL 4-22 mg by ity of 19:45: mouth 3 [place] 58 (three) Medical times Branch daily. metFORMIN 2022-0 Yes 1000mg Take 1,000 Univers (GLUCOPHAGE 4-22 mg by ity of ) 1,000 mg 19:45: mouth 2 [place] tablet 58 (two) Medical times Branch daily with meals. potassium 2022-0 Yes 20meq Take 20 Univ ers chloride 4-22 mEq by ity of (K-DUR) 10 19:45: mouth [place] mEq CR 58 daily. Medical tablet Branch tolterodine 0 Yes 4mg Take 4 mg [place] (DETROL 4-22 by mouth ity o f [place]) 4 mg 24 19:45: daily. [place] hr capsule 58 Medical Branch ezetimibe 0 Yes 10mg Take 10 mg [place] (ZETIA) 10 4-22 by mouth ity o f mg tablet 19:45: daily. [place] [address] Medical Branch Fentanyl, 0 Yes Univers Bulk, 100 % 4-22 ity of Powd 19:45: [address] Branch insulin 0 Yes 15U inject 15 Unive rs glargine 4-22 Units ity of 100 unit/mL 19:45: under the [place] injection 58 skin every [facility] 12 Branch (twelve) hours. insulin 0 Yes 25U inject 25 Unive rs glargine 4-22 Units ity of 100 unit/mL 19:45: under the [place] injection 58 skin every Medi ga evening. Branch diazePAM 5 Yes (Schedule [place] mg tablet 4-22 IV Drug) ity of 19:45: TAKE 1 [place] 58 TABLET BY Medical MOUTH Branch EVERY EVENING DULoxetine 0 Yes 1{capsu Take 1 [place] 60 mg 4-22 le} capsule by ity of capsule 19:45: mouth in [place] [address] the Medical morning. Branch Fenofibrate 0 Yes 1{capsu Take 1 U n[place] 150 mg 4-22 le} capsule by ity of capsule 19:45: mouth in [place] [address] the Medical morning. Branch losartan 50 2023-0 Yes 1{tbl} Take 1 [place] mg tablet 09-06 tablet by ity o f 19:45: mouth in [place] 58 the Medical morning. Branch raloxifene Yes 1 tablet Uni vers 60 mg 09-06 ity of tablet 19:45: [place] 58 Medical Branch LORazepam 2022- No .5mg 0.5 mg, Univ ers (ATIVAN) 09-06 Slow IV ity of injection 16:00: 15:24 Push, [place] 0.5 mg 00 :00 ONCE, 1 Medical dose, On Branch 09/06/22 at 1100, Routine furosemide Yes 40mg 40 mg, Unive rs (LASIX) 09-06 Oral, ity of tablet 40 14:00: QAM+PM, [place] mg 00 First dose Medical (after Branch last modificati on) on 09/06/22 at 0900, Until Discontinu ed, Routine morpHINE (2 2022- No 2mg 2 mg, Slow Univers mg/mL) 09-06 IV Push, ity of injection 2 14:00: 13:32 ONCE, 1 [place] mg 00 :00 dose, On Medical Sat Branch 09/06/22 at 0900, Routine furosemide 2022-2022- No [id number] 40mg Take 1 [facility] 40 mg 4- 05-23 tablet by ity of tablet 00:00: 04:59 mouth [place] 00 :00 every Medical morning Branch and evening for 30 days. furosemide 2022-3- No [id number] 40mg Take 1 [facility] 40 mg 4- 05-23 tablet by ity of tablet 00:00: 04:59 mouth [place] 00 :00 every Medical morning Branch and evening for 30 days. furosemide 2022-0 2023- No [id number] 40mg Take 1 [facility] 40 mg 4-22 05-23 tablet by ity of tablet 00:00: 04:59 mouth [place] 00 :00 every Medical morning Branch and evening for 30 days. furosemide 2022-0 2023- No [id number] 40mg Take 1 [facility] 40 mg 4-22 05-23 tablet by ity of tablet 00:00: 04:59 mouth [place] 00 :00 every Medical morning Branch and evening for 30 days. furosemide 2022-2022- No [id number] 40mg Take 1 [facility] 40 mg 09-06- tablet by ity of tablet 00:00: 04:59 mouth [place] 00 :00 every Medical morning Branch and evening for 30 days. dexAMETHaso 2022- No [id number] 6mg Take 1 Univers ne 6 mg 09-06- tablet by ity of tablet 00:00: 04:59 mouth [place] 00 :00 every day Medical at [address] [place] [address] (noon) for 5 days. dexAMETHaso 2022- No [id number] 6mg Take 1 Univers ne 6 mg 09-06- tablet by ity of tablet 00:00: 04:59 mouth [place] 00 :00 every day Medical at [address] [place] [address] (noon) for 5 days. dexAMETHaso 2022- No [id number] 6mg Take 1 Univers ne 6 mg 09-06 tablet by ity of tablet 00:00: 04:59 mouth [place] 00 :00 every day Medical at [address] [place] [address] (no) for 5 days. dexAMETHaso 2022- No [id number] 6mg Take 1 Univers ne 6 mg 09-06 tablet by ity of tablet 00:00: 04:59 mouth [place] 00 :00 every day Medical at [address] [place] [address] (no) for 5 days. sennosides Yes 8.6mg 8.6 mg, Uni vers (SENOKOT) 4-21 Oral, ity of tablet 8.6 20:00: DAILY, [place] mg 00 First dose Medical on Thu [place] 09/05/22 at 1500, Until Discontinu ed, Routine furosemide No 60mg 60 mg, Univ ers (LASIX) -04 09- Oral, ity of tablet 60 22:00: 19:25 QAM+PM, [place] mg 00 :27 First dose Medical (after Branch last modificati on) on [facility] 09/04/22 at 1700, Until Discontinu ed, Routine spironolact Yes 12.5mg 12.5 mg, Univers one 4-20 Oral, ity of (ALDACTONE) 14:00: DAILY, [place] tablet 12.5 00 First dose Me dical mg on [facility] [place] 09/04/22 at 0900, Until Discontinu ed, Routine melatonin Yes 6mg 6 mg, Univers (MELATIN) -20 Oral, QHS, ity of tablet 6 mg 07:00: First dose [place] 00 on [facility] Medical 09/04/22 at Branch 0200, Until Discontinu ed, Routine carvediloL Yes 6.25mg 6.25 mg, U nivers (COREG) 09-03 Oral, BID ity of tablet 6.25 22:00: MEALS, [place] mg 00 First dose Medical on Thu [place] 09/03/22 at 1700, Until Discontinu ed, Routine sulfur 2022- No [id number] 5mL 5 mL, Univ ers hexafluorid 09-03 Intravenou i ty of e microsphr 20:30: 20:30 s, ONCE, 1 [place] (LUMASON) 00 :00 dose, On Medica l injection 5 Thu Branch 09/03/22 at 1530, Routine
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 Restricted medication : GERRY PETTIT losartan Yes 50mg 50 mg, Univers (COZAAR) 09-03 Oral, ity of tablet 50 17:45: DAILY, [place] mg 00 First dose Medical on Thu [place] 09/03/22 at 1245, Until Discontinu ed, Routine KCL 2022- No 40meq 40 mEq, Univers (KLOR-CON 09-03 Oral, ity of M20) tablet 15:45: 15:13 ONCE, 1 [place] 40 mEq 00 :00 dose, On Medical Thu [place] 09/03/22 at 1045, Routine magnesium 2022- No 2g 2 g, IV Univ ers sulfate in 09-03 Piggyback, it y of water 2 15:45: 16:13 Administer [place]i as gram/50 mL 00 :00 over 60 Medica l (4 %) Minutes, Branch infusion 2 ONCE, 1 g dose, On Thu09/03/22 at 1045, Routine enoxaparin 0 Yes 40mg 40 mg, Unive rs (LOVENOX) 09-03 Subcutaneo ity of injection 14:00: us, DAILY, [place] 40 mg 00 First dose Medical on Thu Branch 09/03/22 at 0900, Until Discontinu ed, Routine insulin Yes 15U 15 Units, Unive rs glargine 09-03 Subcutaneo ity o f (LANTUS 13:00: us, Q12H, [place] U-100) 00 First dose Medical injection on Thu Branch 15 Units 09/03/22 at 0800, Until Discontinu ed, Routine Sliding Yes Subcutaneo Univ ers Scale 09-03 us, TID ity of Insulin - 13:00: MEALS+HS, [place] Lispro 00 First dose Medical (HumaLOG) + on Thu Branch [facility] 09/03/22 at Testing 0800, Until Discontinu ed, Routine furosemide 2022- No 40mg 40 mg, Univ ers (LASIX) 09-03 Slow IV ity of injection 13:00: 15:45 Push, [place] 40 mg 00 :09 Q12H, Medical First dose Branch on Thu09/03/22 at 0800, Until Discontinu ed, Routine LORazepam No 1mg 1 mg, Univer s (ATIVAN) 09-03 Oral, ity of tablet 1 mg 11:45: 10:53 ONCE, 1 [place] 00 :00 dose, On Medical Thu Branch 09/03/22 at 0645, Routine hydralAZINE 2022- No 10mg 10 mg, Uni vers (APRESOLINE 09-03 Slow IV ity of ) injection 11:00: 10:12 Push, [place] 10 mg 00 :00 ONCE, 1 Medical dose, On Branch Thu09/03/22 at 0600, STAT hydrALAZINE Yes 10mg 10 mg, Univ ers (APRESOLINE 09-03 Oral, ity of ) tablet 10 10:08: Q6HPRN, [place] mg 44 Starting Medical on Thu Branch 09/03/22 at 0508, Until Discontinu ed, Routine, SBP>160, DBP>100 dexAMETHaso 2022- No 6mg 6 mg, Univ ers ne 09-03 Oral, ity of (DECADRON) 06:45: 16:59 QNOON, 10 [place] tablet 6 mg 00 :00 doses, Medica l First dose Branch on Thu09/03/22 at 0145, Last dose on [facility] 09/11/22 at 1200, Routine magnesium 2022-0 2022- No 1g 1 g, IV Univ ers sulfate in 09-03 Piggyback, it y of D5W 1 06:00: 06:52 ONCE, 1 [place] gram/100 mL 00 :00 dose, On [facility] RTU IV Thu Branch Piggyback 1 09/03/22 at g 0100, Administer over 60 Minutes, 100 mL glucagon Yes 1mg 1 mg, Univers (GLUCAGEN 09-03 Intramuscu ity of DIAGNOSTIC 05:32: lar, PRN, [place] KIT) 41 Starting Medical injection 1 on Thu Branch mg 09/03/22 at 0032, Until Discontinu ed, SYED, Blood Glucose < or = 70 mg/dL and patient is NPO, unable to swallow or has mental changes. dextrose 50 Yes 25mL 25 mL, Univ ers % in water 09-03 Slow IV ity of (D50W) 05:32: Push, PRN, [place] injection 41 Starting Medica l 25 mL on Thu Branch 09/03/22 at 0032, Until Discontinu ed, SYED, Blood Glucose < or = 70 mg/dL and patient is NPO, unable to swallow or has mental status changes. albuterol Yes 1{puff} 1 Puff, [facility] (VENTOLIN) 09-03 Inhalation ity of inhaler 1 02:57: , Q4HPRN, [place] Puff 58 Starting Medical on Thu Branch 09/02/22 at 2157, Until Discontinu ed, Routine, Wheezing, Shortness of Breath dextrometho 2022-0 Yes 5mL 5 mL, Unive rs rphan-guaif 09-03 Oral, ity of enesin 02:57: Q6HPRN, [place] (ROBITUSSIN 49 Starting [facility] DM) 10-100 on Thu mg/5 mL 09/02/22 at solution 5 2157, mL Until Discontinu ed, Routine, Cough acetaminoph 2022-0 Yes 1{tbl} 1 tablet, Univers en-codeine 09-03 Oral, ity of (TYLENOL 02:56: Q4HPRN, [place] #3) 300-30 30 Starting Medic al mg tablet 1 on [facility] tablet 09/02/22 at 2155, Until Discontinu ed, Routine, Pain (scale 4-6) ondansetron 2022-0 Yes 4mg 4 mg, Slow Univers (ZOFRAN 4-19 IV Push, ity of (PF)) 02:56: Q6HPRN, [place] injection 4 20 Starting Medi ga mg on [facility] Branch 09/02/22 at 2155, Until Discontinu ed, Routine, Nausea and Vomiting (N/V) acetaminoph 2022-0 Yes 650mg 650 mg, Un jairo en 4-19 Oral, ity of (TYLENOL) 02:53: Q6HPRN, [place] tablet 650 36 Starting Medic al mg on [facility] Branch 09/02/22 at 2152, Until Discontinu ed, Routine, Pain (scale 1-3) BIOTIN ORAL 2022-0 Yes 2000mg Take 2,000 Univers 1-10 mg by ity of 16:16: mouth [place] 41 daily. Medical Branch GABAPENTIN 0 Yes 800mg Take 800 [facility] [place] ORAL 1-10 mg by ity of 16:16: mouth 3 [place] 41 (three) Medical times Branch daily. metFORMIN 2022-0 Yes 1000mg Take 1,000 Univers (GLUCOPHAGE 1-10 mg by ity of ) 1,000 mg 16:16: mouth 2 [place] tablet 41 (two) Medical times Branch daily with meals. potassium 2022-0 Yes 20meq Take 20 Univ ers chloride 1-10 mEq by ity of (K-DUR) 10 16:16: mouth [place] mEq CR 41 daily. Medical tablet Branch tolterodine 2022-0 Yes 4mg Take 4 mg U nivers [place] (DETROL 1-10 by mouth ity o f [place]) 4 mg 24 16:16: daily. [place] hr capsule 41 Medical Branch ezetimibe 2022-0 Yes 10mg Take 10 mg Un j[facility] (ZETIA) 10 1-10 by mouth ity o f mg tablet 16:16: daily. [place] [address] Medical Branch Fentanyl, 2022-0 Yes Univers Bulk, 100 % 1-10 ity of Powd 16:16: [place] [address] Medical Branch insulin 2022-0 Yes 15U inject 15 Unive rs glargine 1-10 Units ity of 100 unit/mL 16:16: under the [place] injection 41 skin every Medi [facility] morning. Branch insulin 0 Yes 25U inject 25 Unive rs glargine 1-10 Units ity of 100 unit/mL 16:16: under the [place] injection 41 skin every Medi ga evening. Branch diazePAM 5 0 Yes (Schedule [facility] [place] mg tablet 1-10 IV Drug) ity of 16:16: TAKE 1 [place] 41 TABLET BY Medical MOUTH Branch EVERY EVENING DULoxetine 0 Yes 1{capsu Take 1 [place] 60 mg 1-10 le} capsule by ity of capsule 16:16: mouth in [place] [address] the Medical morning. Branch Fenofibrate 0 Yes 1{capsu Take 1 U nivers 150 mg 1-10 le} capsule by ity of capsule 16:16: mouth in [place] [address] the Medical morning. Branch losartan 50 0 Yes 1{tbl} Take 1 [facility] [place] mg tablet 1-10 tablet by ity o f 16:16: mouth in [place] [address] the Medical morning. Branch raloxifene Yes 1 tablet Uni vers 60 mg 1-10 ity of tablet 16:16: [place] 41 Medical Branch BIOTIN ORAL 2022-0 Yes 2000mg Take 2,000 Univers 1-10 mg by ity of 16:16: mouth [place] [address] daily. Medical Branch GABAPENTIN 2022-0 Yes 800mg Take 800 [facility] [place] ORAL 1-10 mg by ity of 16:16: mouth 3 [place] 41 (three) Medical times Branch daily. metFORMIN 2022-0 Yes 1000mg Take 1,000 Univers (GLUCOPHAGE 1-10 mg by ity of ) 1,000 mg 16:16: mouth 2 [place] tablet 41 (two) Medical times Branch daily with meals. potassium 2022-0 Yes 20meq Take 20 Univ ers chloride 1-10 mEq by ity of (K-DUR) 10 16:16: mouth [place] mEq CR 41 daily. Medical tablet Branch tolterodine 2022-0 Yes 4mg Take 4 mg U nivers [place] (DETROL 1-10 by mouth ity o f [place]) 4 mg 24 16:16: daily. [place] hr capsule 41 Medical Branch ezetimibe 2022-0 Yes 10mg Take 10 mg Un j[place] (ZETIA) 10 1-10 by mouth ity o f mg tablet 16:16: daily. [place] [address] Medical Branch Fentanyl, 2022-0 Yes Univers Bulk, 100 % 1-10 ity of Powd 16:16: [place] [address] Medical Branch insulin 2022-0 Yes 15U inject 15 Unive rs glargine 1-10 Units ity of 100 unit/mL 16:16: under the [place] injection 41 skin every Medi [facility] morning. Branch insulin 2022-0 Yes 25U inject 25 Unive rs glargine 1-10 Units ity of 100 unit/mL 16:16: under the [place] injection 41 skin every Medi ga evening. Branch diazePAM 5 0 Yes (Schedule Un [place] mg tablet 1-10 IV Drug) ity of 16:16: TAKE 1 [place] [address] TABLET BY Medical MOUTH Branch EVERY EVENING DULoxetine 2022-0 Yes 1{capsu Take 1 [place] 60 mg 1-10 le} capsule by ity of capsule 16:16: mouth in [place] [address] the Medical morning. Branch Fenofibrate 2022-0 Yes 1{capsu Take 1 U nivers 150 mg 1-10 le} capsule by ity of capsule 16:16: mouth in [place] [address] the morning. Branch losartan 50 0 Yes 1{tbl} Take 1 [place] mg tablet 1-10 tablet by ity o f 16:16: mouth in [place] [address] the morning. Branch raloxifene 2022-0 Yes 1 tablet Uni vers 60 mg 1-10 ity of tablet 16:16: [place] [address] Medical Branch pantoprazol 2022-0 Yes 40mg Take 40 mg Univers e 40 mg EC 1-06 by mouth ity o f tablet 00:00: in the [place] [address] morning. Medical Branch pantoprazol 2022-0 Yes 40mg Take 40 mg Univers e 40 mg EC 1-06 by mouth ity o f tablet 00:00: in the [place] morning. Medical Branch pantoprazol 2022-0 Yes 40mg Take 1 Univ ers e 40 mg EC 1-06 tablet by ity of tablet 00:00: mouth in [place] [address] the morning. Branch pantoprazol 2022-0 Yes 40mg Take 1 Univ ers e 40 mg EC 1-06 tablet by ity of tablet 00:00: mouth in [place] [address] the Medical morning. Branch pantoprazol 2023-0 Yes 40mg Take 1 Univ ers e 40 mg EC 1-06 tablet by ity of tablet 00:00: mouth in [place] the morning. Branch pantoprazol 2023-0 Yes 40mg Take 1 Univ ers e 40 mg EC 1-06 tablet by ity of tablet 00:00: mouth in [place] the morning. Branch pantoprazol 2023-0 Yes 40mg Take 1 Univ ers e 40 mg EC 1-06 tablet by ity of tablet 00:00: mouth in [place] the morning. Branch pantoprazol 2023-0 Yes 40mg Take 1 Univ ers e 40 mg EC 1-06 tablet by ity of tablet 00:00: mouth in [place] the morning. Branch pantoprazol 2023-0 Yes 40mg Take 1 Univ ers e 40 mg EC 1-06 tablet by ity of tablet 00:00: mouth in [place] the morning. Branch pantoprazol 2023-0 Yes 40mg Take 40 mg Univers e 40 mg EC 1-06 by mouth ity o f tablet 00:00: in the [place] morning. Medical Branch pantoprazol 2023-0 Yes 40mg Take 40 mg Univers e 40 mg EC 1-06 by mouth ity o f tablet 00:00: in the [place] morning. Medical Branch pantoprazol 2023-0 Yes 40mg Take 40 mg Univers e 40 mg EC 1-06 by mouth ity o f tablet 00:00: in the [place] morning. Medical Branch pantoprazol 2023-0 Yes 40mg Take 40 mg Univers e 40 mg EC 1-06 by mouth ity o f tablet 00:00: in the [place] morning. Medical Branch pantoprazol 2023-0 Yes 40mg Take 40 mg Univers e 40 mg EC 1-06 by mouth ity o f tablet 00:00: in the [place] morning. Medical Branch pantoprazol 2023-0 Yes 40mg Take 40 mg Univers e 40 mg EC 1-06 by mouth ity o f tablet 00:00: in the [place] morning. Medical Branch pantoprazol 2023-0 Yes 40mg Take 40 mg Univers e 40 mg EC 1-06 by mouth ity o f tablet 00:00: in the [place] 00 morning. Medical Branch pantoprazol 2023-0 Yes 40mg Take 40 mg Univers e 40 mg EC 1-06 by mouth ity o f tablet 00:00: in the [place] 00 morning. Medical Branch pantoprazol 0 Yes 40mg Take 40 mg Univers e 40 mg EC 06 by mouth ity o f tablet 00:00: in the [place] morning. Medical Branch DULoxetine 2021-05 Yes 30mg Take 30 mg U nivers 30 mg 2-28 by mouth ity of capsule 00:00: in the [place] 00 morning Medical and 30 mg Branch in the evening. DULoxetine 2021- Yes 30mg Take 30 mg U nivers 30 mg 2-28 by mouth ity of capsule 00:00: in the [place] morning Medical and 30 mg Branch in the evening. DULoxetine 2021-05 Yes 30mg Take 1 Unive rs 30 mg 2-28 capsule by ity of capsule 00:00: mouth in [place] 00 the Medical morning Branch and 1 capsule in the evening. DULoxetine 2021-05 Yes 30mg Take 1 Unive rs 30 mg 2-28 capsule by ity of capsule 00:00: mouth in [place] 00 the Medical morning Branch and 1 capsule in the evening. DULoxetine 2021-05 Yes 30mg Take 1 Unive rs 30 mg 2-28 capsule by ity of capsule 00:00: mouth in [place] [address] the Medical morning Branch and 1 capsule in the evening. DULoxetine 2021- Yes 30mg Take 1 Unive rs 30 mg 2-28 capsule by ity of capsule 00:00: mouth in [place] 00 the Medical morning Branch and 1 capsule in the evening. DULoxetine 2021- Yes 30mg Take 1 Unive rs 30 mg 2-28 capsule by ity of capsule 00:00: mouth in [place] 00 the Medical morning Branch and 1 capsule in the evening. DULoxetine 2021- Yes 30mg Take 1 Unive rs 30 mg 2-28 capsule by ity of capsule 00:00: mouth in [place] [address] the Medical morning Branch and 1 capsule in the evening. DULoxetine 2021- Yes 30mg Take 1 Unive rs 30 mg 2-28 capsule by ity of capsule 00:00: mouth in [place] [address] the Medical morning Branch and 1 capsule in the evening. DULoxetine 2021- Yes 30mg Take 30 mg U nivers 30 mg 2-28 by mouth ity of capsule 00:00: in the [place] [address] morning Medical and 30 mg Branch in the evening. DULoxetine 2021 Yes 30mg Take 30 mg U nivers 30 mg 2-28 by mouth ity of capsule 00:00: in the [place] morning Medical and 30 mg Branch in the evening. DULoxetine 2021-05 Yes 30mg Take 30 mg U nivers 30 mg 2-28 by mouth ity of capsule 00:00: in the [place] morning Medical and 30 mg Branch in the evening. DULoxetine 2021-05 Yes 30mg Take 30 mg U nivers 30 mg 2-28 by mouth ity of capsule 00:00: in the [place] morning Medical and 30 mg Branch in the evening. DULoxetine 2021-05 Yes 30mg Take 30 mg U nivers 30 mg 2-28 by mouth ity of capsule 00:00: in the [place] morning Medical and 30 mg Branch in the evening. DULoxetine 2021-05 Yes 30mg Take 30 mg U nivers 30 mg 2-28 by mouth ity of capsule 00:00: in the [place] morning Medical and 30 mg Branch in the evening. DULoxetine 2021-05 Yes 30mg Take 30 mg U nivers 30 mg 2-28 by mouth ity of capsule 00:00: in the [place] morning Medical and 30 mg Branch in the evening. DULoxetine 2021-05 Yes 30mg Take 30 mg U nivers 30 mg 2-28 by mouth ity of capsule 00:00: in the [place] morning Medical and 30 mg Branch in the evening. DULoxetine 2021-05 Yes 30mg Take 30 mg U nivers 30 mg 2-28 by mouth ity of capsule 00:00: in the [place] morning Medical and 30 mg Branch in the evening. LEVEMIR 2021-05 Yes INJECT 32 Unive rs FLEXTOUCH 2-25 UNITS IN ity of U-100 00:00: THE AM AND [place] INSULN 100 00 47 UNITS Medic al unit/mL (3 IN THE PM Bran ch mL) injection LEVEMIR 2021-05 Yes INJECT 32 Unive rs FLEXTOUCH 2-25 UNITS IN ity of U-100 00:00: THE AM AND [place] INSULN 100 00 47 UNITS Medic al unit/mL (3 IN THE PM Bran ch mL) injection LEVEMIR 2021-053- No INJECT 32 Univ ers FLEXTOUCH 2-25 04-19 UNITS IN ity o f U-100 00:00: 00:00 THE AM AND [place] INSULN 100 00 :00 47 UNITS Medic al unit/mL (3 IN THE PM Bran ch mL) injection TAKE 2021-05 No TABLET BY 1-16 MOUTH EVERY 00:00: DAY 00 TAKE 2021-05 No TABLET BY 1-16 MOUTH EVERY 00:00: DAY IN THE 00 MORNING Dose 2021-1 No Unknown 1-08 00:00: 00 TAKE 2021- No 0.5/HALF 1-02 TABLETS BY 00:00: MOUTH AT 00 BEDTIME TAKE 2 2021-05 No 125 TABLETS BY 0-28 MOUTH DAILY 00:00: 00 TAKE 1 2021-05 No CAPSULE BY 0-25 MOUTH TWICE 00:00: A DAY 00 Dose 2021- No Unknown 0-03 00:00: 00 Dose 2021- No Unknown 0-03 00:00: 00 PANTOPRAZOL 2021-0 No E SODIUM 9-[address] TAB 00:00: 00 PANTOPRAZOL 2021-0 No E SODIUM 9-[address] TAB 00:00: 00 DULOXETINE 2021-[address] 9-14 CAP 00:00: 00 Dose 2021-0 No Unknown 9-14 00:00: 00 Dose 2021-0 No Unknown 9-09 00:00: 00 Dose 2021-0 No Unknown 9-09 00:00: 00 TAKE 2021-0 No TABLET BY 9-06 MOUTH EVERY 00:00: DAY AT 00 NIGHT TAKE 1 2021-0 No TABLET BY 9-06 MOUTH EVERY 00:00: DAY AT 00 NIGHT TAKE 2021-0 No 30 CAPSULE BY 8-19 MOUTH TWICE 00:00: A DAY 00 TAKE 2021-0 No 30 CAPSULE BY 8-19 MOUTH TWICE 00:00: A DAY 00 TAKE 1 2021-0 No 30 CAPSULE BY 8-19 MOUTH TWICE 00:00: A DAY 00 LOSARTAN 2021-0 No 50 POTASSIUM 8-18 50MG TAB 00:00: 00 TAKE 1 2021-0 No 134 CAPSULE BY 8-18 MOUTH EVERY 00:00: MORNING 00 LOSARTAN 2022-0 No 50 POTASSIUM 8-18 50MG TAB 00:00: 00 TAKE 1 2021-0 No 134 CAPSULE BY 8-18 MOUTH EVERY 00:00: MORNING 00 LOSARTAN 2021-0 No 50 POTASSIUM 8-18 50MG TAB 00:00: 00 TAKE 1 2022-0 No 134 CAPSULE BY 8-18 MOUTH EVERY 00:00: MORNING 00 &lt 2022-0 No 8-11 00:00: 00 &lt 2022-0 No 8-11 00:00: 00 &lt 2022-0 No 8-11 00:00: 00 &lt 2022-0 No 8-11 00:00: 00 &lt 2022-0 No 5 8-10 00:00: 00 Dose 2022-0 No 2 Unknown 8-10 00:00: 00 APPLY 1 GM 2022-0 No ON THE SKIN 8-10 DAILY 00:00: 00 TAKE 2022-0 No 5 0.5/HALF 8-10 TABLETS BY 00:00: MOUTH AT 00 BEDTIME &lt 2022-0 No 8-10 00:00: 00 &lt 2022-0 No 20 8-10 00:00: 00 &lt 2022-0 No 30 8-10 00:00: 00 &lt 2022-0 No 2 8-10 00:00: 00 &lt 2022-0 No 5 8-10 00:00: 00 Dose 2022-0 No 2 Unknown 8-10 00:00: 00 APPLY 1 GM 2022-0 No ON THE SKIN 8-10 DAILY 00:00: 00 TAKE 2022-0 No 5 0.5/HALF 8-10 TABLETS BY 00:00: MOUTH AT 00 BEDTIME &lt 2022-0 No 8-10 00:00: 00 &lt 2022-0 No 20 8-10 00:00: 00 &lt 2022-0 No 30 8-10 00:00: 00 &lt 2022-0 No 2 8-10 00:00: 00 &lt 2022-0 No 5 8-10 00:00: 00 Dose 2022-0 No 2 Unknown 8-10 00:00: 00 APPLY 1 GM 2022-0 No ON THE SKIN 8-10 DAILY 00:00: 00 TAKE 2022-0 No 5 0.5/HALF 8-10 TABLETS BY 00:00: MOUTH AT 00 BEDTIME &lt 2022-0 No 8-10 00:00: 00 &lt 2022-0 No 20 8-10 00:00: 00 &lt 2022-0 No 30 8-10 00:00: 00 &lt 2022-0 No 2 8-10 00:00: 00 &lt 2022-0 No 5 8- 00:00: 00 Dose 2022-0 No 2 Unknown 8 00:00: 00 APPLY 1 GM 2022-0 No ON THE SKIN 12-25 DAILY 00:00: 00 TAKE 2022-0 No 5 0.5/HALF 8-10 TABLETS BY 00:00: MOUTH AT 00 BEDTIME &lt 2022-0 No 8-10 00:00: 00 &lt 2022-0 No 20 12-25 00:00: 00 &lt 2022-0 No 30 12-25 00:00: 00 &lt 2022-0 No 2 12-25 00:00: 00 &lt 2022-0 No 40 12-24 00:00: 00 Dose 2022-0 No 800 Unknown 12-24 00:00: 00 APPLY 1 GM 2022-0 No ON THE SKIN 12-24 DAILY 00:00: 00 TAKE 1 2022-0 No 800 TABLET BY 12-24 MOUTH THREE 00:00: TIMES A DAY 00 &lt 2022-0 No 20 12-24 00:00: 00 Dose 2022-0 No Unknown 12-24 00:00: 00 APPLY 1 GM 2022-0 No ON THE SKIN 12-24 DAILY 00:00: 00 Dose 2022-0 No Unknown 12-24 00:00: 00 Dose 2022-0 No 10 Unknown 12-24 00:00: 00 &lt 2022-0 No 12-24 00:00: 00 &lt 2022-0 No 30 12-24 00:00: 00 &lt 2022-0 No 40 12-24 00:00: 00 Dose 2022-0 No Unknown 12-24 00:00: 00 TAKE 2 2022-0 No 125 TABLETS BY 12-24 MOUTH EVERY 00:00: DAY 00 Dose 2022-0 No 10 Unknown 12-24 00:00: 00 Dose 2022-0 No 20 Unknown 12-24 00:00: 00 Dose 2022-0 No 2 Unknown 12-24 00:00: 00 Dose 2022-0 No Unknown 12-24 00:00: 00 &lt 2022-0 No 40 12-24 00:00: 00 Dose 2022-0 No 800 Unknown 12-24 00:00: 00 APPLY 1 GM 2022-0 No ON THE SKIN 12-24 DAILY 00:00: 00 TAKE 1 2022-0 No 800 TABLET BY - MOUTH THREE 00:00: TIMES A DAY 00 &lt 2022-0 No 20 12-24 00:00: 00 Dose 2022-0 No Unknown 12-24 00:00: 00 APPLY 1 GM 2022-0 No ON THE SKIN 12-24 DAILY 00:00: 00 Dose 2022-0 No Unknown 12-24 00:00: 00 Dose 2022-0 No 10 Unknown 12-24 00:00: 00 &lt 2022-0 No 12-24 00:00: 00 &lt 2022-0 No 30 12-24 00:00: 00 &lt 2022-0 No 40 12-24 00:00: 00 Dose 2022-0 No Unknown 12-24 00:00: 00 TAKE 2 2022-0 No 125 TABLETS BY - MOUTH EVERY 00:00: DAY 00 Dose 2022-0 No 10 Unknown 12-24 00:00: 00 Dose 2022-0 No 20 Unknown 12-24 00:00: 00 Dose 2022-0 No 2 Unknown 12-24 00:00: 00 Dose 2022-0 No Unknown 12-24 00:00: 00 &lt 2022-0 No 40 12-24 00:00: 00 Dose 2022-0 No 800 Unknown 12-24 00:00: 00 APPLY 1 GM 2022-0 No ON THE SKIN 12-24 DAILY 00:00: 00 TAKE 1 2-0 No 800 TABLET BY 12-24 MOUTH THREE 00:00: TIMES A DAY 00 &lt 2022-0 No 20 12-24 00:00: 00 Dose 2022-0 No Unknown 12-24 00:00: 00 APPLY 1 GM 2022-0 No ON THE SKIN 12-24 DAILY 00:00: 00 Dose 2022-0 No Unknown 12-24 00:00: 00 Dose 2022-0 No 10 Unknown 12-24 00:00: 00 &lt 2022-0 No 12-24 00:00: 00 &lt 2022-0 No 30 12-24 00:00: 00 &lt 2022-0 No 40 12-24 00:00: 00 Dose 2022-0 No Unknown 12-24 00:00: 00 TAKE 2 2022-0 No 125 TABLETS BY 12-24 MOUTH EVERY 00:00: DAY 00 Dose 2022-0 No 10 Unknown 12-24 00:00: 00 Dose 2022-0 No 20 Unknown 12-24 00:00: 00 Dose 2022-0 No 2 Unknown 12-24 00:00: 00 Dose 2022-0 No Unknown 12-24 00:00: 00 &lt 2022-0 No 40 12-24 00:00: 00 Dose 2022-0 No 800 Unknown 12-24 00:00: 00 APPLY 1 GM 2022-0 No ON THE SKIN 12-24 DAILY 00:00: 00 TAKE 1 2022-0 No 800 TABLET BY 8- MOUTH THREE 00:00: TIMES A DAY 00 &lt 2022-0 No 20 12-24 00:00: 00 Dose 2022-0 No Unknown 12-24 00:00: 00 APPLY 1 GM 2022-0 No ON THE SKIN 12-24 DAILY 00:00: 00 Dose 2022-0 No Unknown 12-24 00:00: 00 Dose 2022-0 No 10 Unknown 12-24 00:00: 00 &lt 2022-0 No 12-24 00:00: 00 &lt 2022-0 No 30 12-24 00:00: 00 &lt 2022-0 No 40 12-24 00:00: 00 Dose 2022-0 No Unknown 12-24 00:00: 00 TAKE 2 2022-0 No 125 TABLETS BY 8- MOUTH EVERY 00:00: DAY 00 Dose 2022-0 No 10 Unknown 12-24 00:00: 00 Dose 2022-0 No 20 Unknown 12-24 00:00: 00 Dose 2022-0 No 2 Unknown 12-24 00:00: 00 Dose 2022-0 No Unknown 12-24 00:00: 00 Dose 2022-0 No Unknown 12-23 00:00: 00 ezetimibe 2022-0 No 1mg 10 mg 8-08 tablet 00:00: 00 Levemir 2022-0 No (3 mL) FlexTouch 8-08 U-100 00:00: Insulin 100 00 unit/mL (3 mL) subcutaneou s pen ezetimibe 2022-0 No 1mg 10 mg 8-08 tablet 00:00: 00 Levemir 2022-0 No (3 mL) FlexTouch 8-08 U-100 00:00: Insulin 100 00 unit/mL (3 mL) subcutaneou s pen ezetimibe 2-0 No 1mg 10 mg 8-08 tablet 00:00: 00 Levemir 2022-0 No (3 mL) FlexTouch 8-08 U-100 00:00: Insulin 100 00 unit/mL (3 mL) subcutaneou s pen ezetimibe 2-0 No 1mg 10 mg 8-08 tablet 00:00: 00 &lt 2022-0 No 20 8- 00:00: 00 &lt 2022-0 No 8- 00:00: 00 &lt 2022-0 No 2 8- 00:00: 00 &lt 2022-0 No 10 8- 00:00: 00 &lt 2022-0 No 20 8- 00:00: 00 &lt 2022-0 No 8- 00:00: 00 &lt 2022-0 No 2 8- 00:00: 00 &lt 2022-0 No 10 8- 00:00: 00 &lt 2022-0 No 20 8- 00:00: 00 &lt 2022-0 No 8- 00:00: 00 &lt 2022-0 No 2 8- 00:00: 00 &lt 2022-0 No 10 8- 00:00: 00 &lt 2022-0 No 20 8- 00:00: 00 &lt 2022-0 No 8- 00:00: 00 &lt 2022-0 No 2 8- 00:00: 00 &lt 2022-0 No 10 8- 00:00: 00 aripiprazol 2-0 No 5mg e 5 mg -28 tablet 00:00: 00 duloxetine 2-0 No 1mg 30 mg - capsule,del 00:00: ayed 00 release TAKE 1 2021-0 No 800 TABLET BY 7 MOUTH THREE 00:00: TIMES A DAY 00 Dose 2-0 No 800 Unknown - 00:00: 00 &lt 2022-0 No 500 - 00:00: 00 TAKE 2-0 No 5 0.5/HALF 7-28 TABLETS BY 00:00: MOUTH AT 00 BEDTIME Dose 2022-0 No Unknown 7- 00:00: 00 Dose 2022-0 No 5 Unknown 7- 00:00: 00 Dose 2022-0 No Unknown 7- 00:00: 00 &lt 2022-0 No 500 12-12 00:00: 00 Dose 2022-0 No 2 Unknown 12-12 00:00: 00 &lt 2022-0 No 5 12-12 00:00: 00 aripiprazol 2022-0 No 5mg e 5 mg - tablet 00:00: 00 duloxetine 2-0 No 1mg 30 mg - capsule,del 00:00: ayed 00 release TAKE 1 2-0 No 800 TABLET BY 12-12 MOUTH THREE 00:00: TIMES A DAY 00 Dose 2022-0 No 800 Unknown 12-12 00:00: 00 &lt 2022-0 No 500 12-12 00:00: 00 TAKE 2022-0 No 5 0.5/HALF - TABLETS BY 00:00: MOUTH AT 00 BEDTIME Dose 2022-0 No Unknown 12-12 00:00: 00 Dose 2022-0 No 5 Unknown 12-12 00:00: 00 Dose 2022-0 No Unknown 12-12 00:00: 00 &lt 2022-0 No 500 12-12 00:00: 00 Dose 2022-0 No 2 Unknown 12-12 00:00: 00 &lt 2022-0 No 5 12-12 00:00: 00 aripiprazol 2-0 No 5mg e 5 mg - tablet 00:00: 00 duloxetine 2-0 No 1mg 30 mg - capsule,del 00:00: ayed 00 release TAKE 1 2-0 No 800 TABLET BY 12-12 MOUTH THREE 00:00: TIMES A DAY 00 Dose 2022-0 No 800 Unknown 12-12 00:00: 00 &lt 2022-0 No 500 12-12 00:00: 00 TAKE 2022-0 No 5 0.5/HALF - TABLETS BY 00:00: MOUTH AT 00 BEDTIME Dose 2022-0 No Unknown 12-12 00:00: 00 Dose 2022-0 No 5 Unknown 12-12 00:00: 00 Dose 2022-0 No Unknown 12-12 00:00: 00 &lt 2022-0 No 500 12-12 00:00: 00 Dose 2022-0 No 2 Unknown 12-12 00:00: 00 &lt 2022-0 No 5 12-12 00:00: 00 aripiprazol 2022-0 No 5mg e 5 mg - tablet 00:00: 00 duloxetine 2022-0 No 1mg 30 mg 12-12 capsule,del 00:00: ayed 00 release TAKE 1 2021-0 No 800 TABLET BY 12-12 MOUTH THREE 00:00: TIMES A DAY 00 Dose 2022-0 No 800 Unknown 12-12 00:00: 00 &lt 2022-0 No 500 12-12 00:00: 00 TAKE 2022-0 No 5 0.5/HALF 12-12 TABLETS BY 00:00: MOUTH AT 00 BEDTIME Dose 2022-0 No Unknown 12-12 00:00: 00 Dose 2022-0 No 5 Unknown 12-12 00:00: 00 Dose 2022-0 No Unknown 12-12 00:00: 00 &lt 2022-0 No 500 12-12 00:00: 00 Dose 2022-0 No 2 Unknown 12-12 00:00: 00 &lt 2022-0 No 5 12-12 00:00: 00 &lt 2022-0 No 7- 00:00: 00 &lt 2022-0 No 20 7- 00:00: 00 &lt 2022-0 No 7- 00:00: 00 &lt 2022-0 No 20 7- 00:00: 00 &lt 2022-0 No 7- 00:00: 00 &lt 2022-0 No 20 7- 00:00: 00 &lt 2022-0 No 7- 00:00: 00 &lt 2022-0 No 20 7- 00:00: 00 TAKE 2 2-0 No 125 TABLETS BY 7-20 MOUTH EVERY 00:00: DAY 00 &lt 2022-0 No 40 7-20 00:00: 00 &lt 2022-0 No 10 7-20 00:00: 00 Dose 2022-0 No Unknown 7-20 00:00: 00 TAKE 2 2-0 No 125 TABLETS BY 7-20 MOUTH EVERY 00:00: DAY 00 &lt 2022-0 No 40 7-20 00:00: 00 &lt 2022-0 No 10 7-20 00:00: 00 Dose 2022-0 No Unknown 7-20 00:00: 00 TAKE 2 2-0 No 125 TABLETS BY 7-20 MOUTH EVERY 00:00: DAY 00 &lt 2022-0 No 40 7-20 00:00: 00 &lt 2022-0 No 10 7-20 00:00: 00 Dose 2022-0 No Unknown 7-20 00:00: 00 TAKE 2 2022-0 No 125 TABLETS BY 7-20 MOUTH EVERY 00:00: DAY 00 &lt 2022-0 No 40 7-20 00:00: 00 &lt 2022-0 No 10 7-20 00:00: 00 Dose 2022-0 No Unknown 7-20 00:00: 00 &lt 2022-0 No 500 7-14 00:00: 00 Dose 2022-0 No 2 Unknown 7-14 00:00: 00 &lt 2022-0 No 2 7-14 00:00: 00 APPLY 1 GM 2022-0 No ON THE SKIN 7-14 DAILY 00:00: 00 &lt 2022-0 No 500 7-14 00:00: 00 Dose 2022-0 No 2 Unknown 7-14 00:00: 00 &lt 2022-0 No 2 7-14 00:00: 00 APPLY 1 GM 2022-0 No ON THE SKIN 7-14 DAILY 00:00: 00 &lt 2022-0 No 500 7-14 00:00: 00 Dose 2022-0 No 2 Unknown 7-14 00:00: 00 &lt 2022-0 No 2 7-14 00:00: 00 APPLY 1 GM 2022-0 No ON THE SKIN 7-14 DAILY 00:00: 00 &lt 2022-0 No 500 7-14 00:00: 00 Dose 2022-0 No 2 Unknown 7-14 00:00: 00 &lt 2022-0 No 2 7-14 00:00: 00 APPLY 1 GM 2022-0 No ON THE SKIN 7-14 DAILY 00:00: 00 &lt 2022-0 No 5 7-08 00:00: 00 &lt 2022-0 No 40 7-08 00:00: 00 &lt 2022-0 No 40 7-08 00:00: 00 &lt 2022-0 No 20 7-08 00:00: 00 Dose 2022-0 No 2 Unknown 7-08 00:00: 00 &lt 2022-0 No 7-08 00:00: 00 &lt 2022-0 No 7-08 00:00: 00 &lt 2022-0 No 10 7 00:00: 00 Dose 2022-0 No 800 Unknown 11-22 00:00: 00 Dose 2022-0 No Unknown 11-22 00:00: 00 Dose 2022-0 No 5 Unknown 11-22 00:00: 00 TAKE 2022-0 No 5 0.5/HALF 7-08 TABLETS BY 00:00: MOUTH AT 00 BEDTIME APPLY 1 GM 2022-0 No ON THE SKIN 7 DAILY 00:00: 00 &lt 2022-0 No 40 7- 00:00: 00 &lt 2022-0 No 5 7- 00:00: 00 &lt 2022-0 No 40 11-22 00:00: 00 &lt 2022-0 No 40 11-22 00:00: 00 &lt 2022-0 No 20 11-22 00:00: 00 Dose 2022-0 No 2 Unknown 11-22 00:00: 00 &lt 2022-0 No 7- 00:00: 00 &lt 2022-0 No 7- 00:00: 00 &lt 2022-0 No 10 11-22 00:00: 00 Dose 2022-0 No 800 Unknown 11-22 00:00: 00 Dose 2022-0 No Unknown 11-22 00:00: 00 Dose 2022-0 No 5 Unknown 11-22 00:00: 00 TAKE 2022-0 No 5 0.5/HALF 11-22 TABLETS BY 00:00: MOUTH AT 00 BEDTIME APPLY 1 GM 2022-0 No ON THE SKIN 11-22 DAILY 00:00: 00 &lt 2022-0 No 40 11-22 00:00: 00 &lt 2022-0 No 5 7-08 00:00: 00 &lt 2022-0 No 40 7- 00:00: 00 &lt 2022-0 No 40 7 00:00: 00 &lt 2022-0 No 20 11-22 00:00: 00 Dose 2022-0 No 2 Unknown 11-22 00:00: 00 &lt 2022-0 No 7- 00:00: 00 &lt 2022-0 No 7-08 00:00: 00 &lt 2022-0 No 10 7- 00:00: 00 Dose 2022-0 No 800 Unknown 11-22 00:00: 00 Dose 2022-0 No Unknown 7- 00:00: 00 Dose 2022-0 No 5 Unknown 7-08 00:00: 00 TAKE 2022-0 No 5 0.5/HALF 7-08 TABLETS BY 00:00: MOUTH AT 00 BEDTIME APPLY 1 GM 2022-0 No ON THE SKIN 7-08 DAILY 00:00: 00 &lt 2022-0 No 40 7-08 00:00: 00 &lt 2022-0 No 5 7-08 00:00: 00 &lt 2022-0 No 40 7-08 00:00: 00 &lt 2022-0 No 40 7-08 00:00: 00 &lt 2022-0 No 20 7-08 00:00: 00 Dose 2022-0 No 2 Unknown 7 00:00: 00 &lt 2022-0 No 7-08 00:00: 00 &lt 2022-0 No 7-08 00:00: 00 &lt 2022-0 No 10 7- 00:00: 00 Dose 2022-0 No 800 Unknown 11-22 00:00: 00 Dose 2022-0 No Unknown 7- 00:00: 00 Dose 2022-0 No 5 Unknown 7-08 00:00: 00 TAKE 2022-0 No 5 0.5/HALF 7-08 TABLETS BY 00:00: MOUTH AT 00 BEDTIME APPLY 1 GM 2022-0 No ON THE SKIN 7-08 DAILY 00:00: 00 &lt 2022-0 No 40 7-08 00:00: 00 &lt 2022-0 No 7-07 00:00: 00 &lt 2022-0 No 7-07 00:00: 00 &lt 2022-0 No 7-07 00:00: 00 &lt 2022-0 No 7-07 00:00: 00 &lt 2022-0 No 2 7-05 00:00: 00 &lt 2022-0 No 2 7-05 00:00: 00 &lt 2022-0 No 2 7-05 00:00: 00 &lt 2022-0 No 2 7-05 00:00: 00 aripiprazol 2022-0 No 5mg e 5 mg 7- tablet 00:00: 00 aripiprazol 2022-0 No 5mg e 5 mg 7- tablet 00:00: 00 &lt 2022-0 No 7- 00:00: 00 TAKE 1 2022-0 No TABLET BY 7-01 MOUTH THREE 00:00: TIMES A DAY 00 &lt 2022-0 No 7- 00:00: 00 aripiprazol 2022-0 No 5mg e 5 mg 7-01 tablet 00:00: 00 aripiprazol 2022-0 No 5mg e 5 mg 7-01 tablet 00:00: 00 &lt 2022-0 No 7- 00:00: 00 TAKE 1 2022-0 No TABLET BY 7- MOUTH THREE 00:00: TIMES A DAY 00 &lt 2022-0 No 7- 00:00: 00 aripiprazol 2022-0 No 5mg e 5 mg 7-01 tablet 00:00: 00 aripiprazol 2022-0 No 5mg e 5 mg 7-01 tablet 00:00: 00 &lt 2022-0 No 7- 00:00: 00 TAKE 1 2022-0 No TABLET BY 7- MOUTH THREE 00:00: TIMES A DAY 00 &lt 2022-0 No 7- 00:00: 00 aripiprazol 2022-0 No 5mg e 5 mg 7-01 tablet 00:00: 00 aripiprazol 2022-0 No 5mg e 5 mg 7- tablet 00:00: 00 &lt 2022-0 No 7- 00:00: 00 TAKE 1 2022-0 No TABLET BY 7- MOUTH THREE 00:00: TIMES A DAY 00 &lt 2022-0 No 7- 00:00: 00 Abilify 2 2022-0 No 15mg mg tablet 6-30 00:00: 00 duloxetine 2022-0 No 1mg 30 mg 6-30 capsule,del 00:00: ayed 00 release &lt 2022-0 No 6-30 00:00: 00 Abilify 2 2022-0 No 15mg mg tablet 630 00:00: 00 duloxetine 2022-0 No 1mg 30 mg 6-30 capsule,del 00:00: ayed 00 release &lt 2022-0 No 6-30 00:00: 00 Abilify 2 2022-0 No 15mg mg tablet 630 00:00: 00 duloxetine 2022-0 No 1mg 30 mg 6-30 capsule,del 00:00: ayed 00 release &lt 2022-0 No -30 00:00: 00 Kelleylify 2 2022-0 No 15mg mg tablet 11-14 00:00: 00 duloxetine 2022-0 No 1mg 30 mg 6-30 capsule,del 00:00: ayed 00 release &lt 2022-0 No 11-14 00:00: 00 &lt 2022-0 No 11-12 00:00: 00 TAKE 1 2022-0 No TABLET BY 6-28 MOUTH EVERY 00:00: DAY IN THE 00 MORNING TAKE 2 2022-0 No TABLETS BY 6-28 MOUTH DAILY 00:00: 00 &lt 2022-0 No 28 00:00: 00 TAKE 1 2022-0 No TABLET BY 6-28 MOUTH EVERY 00:00: DAY IN THE 00 MORNING TAKE 2 2022-0 No TABLETS BY 6-28 MOUTH DAILY 00:00: 00 &lt 2022-0 No -28 00:00: 00 TAKE 1 2022-0 No TABLET BY 6-28 MOUTH EVERY 00:00: DAY IN THE 00 MORNING TAKE 2 2022-0 No TABLETS BY 6-28 MOUTH DAILY 00:00: 00 &lt 2022-0 No 6-28 00:00: 00 TAKE 1 2022-0 No TABLET BY 6-28 MOUTH EVERY 00:00: DAY IN THE 00 MORNING TAKE 2 2022-0 No TABLETS BY 6-28 MOUTH DAILY 00:00: 00 metformin 2022-0 No 1mg 1,000 mg 6-18 tablet 00:00: 00 furosemide 2022-0 No 1mg 20 mg 6-18 tablet 00:00: 00 losartan 50 2022-0 No 1mg mg tablet 11-02 00:00: 00 &lt 2022-0 No 6-18 00:00: 00 metformin 2022-0 No 1mg 1,000 mg 6-18 tablet 00:00: 00 furosemide 2022-0 No 1mg 20 mg 6-18 tablet 00:00: 00 losartan 50 2022-0 No 1mg mg tablet 11-02 00:00: 00 &lt 2022-0 No 6-18 00:00: 00 metformin 2022-0 No 1mg 1,000 mg 6-18 tablet 00:00: 00 furosemide 2022-0 No 1mg 20 mg 6-18 tablet 00:00: 00 losartan 50 2022-0 No 1mg mg tablet 6-18 00:00: 00 &lt 2022-0 No 6-18 00:00: 00 metformin 2022-0 No 1mg 1,000 mg 6-18 tablet 00:00: 00 furosemide 2022-0 No 1mg 20 mg 6-18 tablet 00:00: 00 losartan 50 2022-0 No 1mg mg tablet 6-18 00:00: 00 &lt 2022-0 No 6-18 00:00: 00 metformin 2022-0 No 1mg 1,000 mg 6-16 tablet 00:00: 00 furosemide 2022-0 No 1mg 20 mg 6-16 tablet 00:00: 00 metformin 2022-0 No 1mg 1,000 mg 6-16 tablet 00:00: 00 furosemide 2022-0 No 1mg 20 mg 6-16 tablet 00:00: 00 metformin 2022-0 No 1mg 1,000 mg 6-16 tablet 00:00: 00 furosemide 2022-0 No 1mg 20 mg 6-16 tablet 00:00: 00 metformin 2022-0 No 1mg 1,000 mg 6-16 tablet 00:00: 00 furosemide 2022-0 No 1mg 20 mg 6-16 tablet 00:00: 00 &lt 2022-0 No 6-13 00:00: 00 &lt 2022-0 No 6-13 00:00: 00 &lt 2022-0 No 6-13 00:00: 00 &lt 2022-0 No 6-13 00:00: 00 Abilify 2 2022-0 No 15mg mg tablet 10-17 00:00: 00 duloxetine 2022-0 No 1mg 30 mg 6-02 capsule,del 00:00: ayed 00 release &lt 2022-0 No 6-02 00:00: 00 &lt 2022-0 No 6-02 00:00: 00 &lt 2022-0 No 6-02 00:00: 00 &lt 2022-0 No 6-02 00:00: 00 TAKE 1 2022-0 No TABLET BY 6- MOUTH EVERY 00:00: DAY 00 &lt 2022-0 No 6-02 00:00: 00 &lt 2022-0 No 6-02 00:00: 00 Abilify 2 2022-0 No 15mg mg tablet 10-17 00:00: 00 duloxetine 2022-0 No 1mg 30 mg 6-02 capsule,del 00:00: ayed 00 release &lt 2022-0 No 6- 00:00: 00 &lt 2022-0 No 6- 00:00: 00 &lt 2022-0 No 6- 00:00: 00 &lt 2022-0 No 6- 00:00: 00 TAKE 1 2022-0 No TABLET BY 10-17 MOUTH EVERY 00:00: DAY 00 &lt 2022-0 No 6- 00:00: 00 &lt 2022-0 No 6- 00:00: 00 Abilify 2 2022-0 No 15mg mg tablet 10-17 00:00: 00 duloxetine 2022-0 No 1mg 30 mg 6- capsule,del 00:00: ayed 00 release &lt 2022-0 No 10-17 00:00: 00 &lt 2022-0 No 6- 00:00: 00 &lt 2022-0 No 6- 00:00: 00 &lt 2022-0 No 6- 00:00: 00 TAKE 1 2022-0 No TABLET BY 10-17 MOUTH EVERY 00:00: DAY 00 &lt 2022-0 No 6 00:00: 00 &lt 2022-0 No 6- 00:00: 00 Abilify 2 2022-0 No 15mg mg tablet 10-17 00:00: 00 duloxetine 2022-0 No 1mg 30 mg 6- capsule,del 00:00: ayed 00 release &lt 2022-0 No 6- 00:00: 00 &lt 2022-0 No 6- 00:00: 00 &lt 2022-0 No 6- 00:00: 00 &lt 2022-0 No 6- 00:00: 00 TAKE 1 2022-0 No TABLET BY 6- MOUTH EVERY 00:00: DAY 00 &lt 2022-0 No 6- 00:00: 00 &lt 2022-0 No 6- 00:00: 00 &lt 2022-0 No 6- 00:00: 00 &lt 2022-0 No 6-01 00:00: 00 &lt 2022-0 No 6-01 00:00: 00 &lt 2022-0 No 6- 00:00: 00 &lt 2022-0 No 6- 00:00: 00 &lt 2022-0 No 6- 00:00: 00 &lt 2022-0 No 6- 00:00: 00 &lt 2022-0 No 6- 00:00: 00 &lt 2022-0 No 6-01 00:00: 00 &lt 2022-0 No 6-01 00:00: 00 &lt 2022-0 No 6-01 00:00: 00 &lt 2022-0 No 6-01 00:00: 00 Abilify 2 2022-0 No 15mg mg tablet 5-17 00:00: 00 duloxetine 2022-0 No 1mg 30 mg 5-17 capsule,del 00:00: ayed 00 release Abilify 2 2022-0 No 15mg mg tablet 5-17 00:00: 00 duloxetine 2022-0 No 1mg 30 mg 5-17 capsule,del 00:00: ayed 00 release Abilify 2 2022-0 No 15mg mg tablet 5-17 00:00: 00 duloxetine 2022-0 No 1mg 30 mg 5-17 capsule,del 00:00: ayed 00 release Abilify 2 2022-0 No 15mg mg tablet 5-17 00:00: 00 duloxetine 2022-0 No 1mg 30 mg 5-17 capsule,del 00:00: ayed 00 release Aricept 5 2022-0 No 1mg mg tablet 5-10 00:00: 00 Aricept 5 2022-0 No 1mg mg tablet 5-10 00:00: 00 Aricept 5 2022-0 No 1mg mg tablet 5-10 00:00: 00 Aricept 5 2022-0 No 1mg mg tablet 5-10 00:00: 00 ezetimibe 2022-0 No 1mg 10 mg 4-26 tablet 00:00: 00 carvedilol 2022-0 No 2mg 12.5 mg 4-26 tablet 00:00: 00 Aricept 5 2022-0 No 1mg mg tablet 4-26 00:00: 00 cefuroxime 2022-0 No 1mg axetil 500 4-26 mg tablet 00:00: 00 aripiprazol 2022-0 No 5mg e 5 mg 4-26 tablet 00:00: 00 gabapentin 2022-0 No 1mg 800 mg 4-26 tablet 00:00: 00 Abilify 2 2022-0 No 2mg mg tablet 09-10 00:00: 00 Abilify 2 2022-0 No 15mg mg tablet 09-10 00:00: 00 duloxetine 2022-0 No 1mg 30 mg - capsule,del 00:00: ayed 00 release fenofibrate 2-0 No 1mg micronized -26 134 mg 00:00: capsule 00 potassium 2-0 No 1mEq chloride ER 09-10 10 mEq 00:00: capsule,ext 00 ended release ezetimibe 2-0 No 1mg 10 mg -26 tablet 00:00: 00 carvedilol 2022-0 No 2mg 12.5 mg 4-26 tablet 00:00: 00 Aricept 5 2-0 No 1mg mg tablet 09-10 00:00: 00 cefuroxime 2022-0 No 1mg axetil 500 4-26 mg tablet 00:00: 00 aripiprazol 2-0 No 5mg e 5 mg -26 tablet 00:00: 00 gabapentin 2022-0 No 1mg 800 mg -26 tablet 00:00: 00 Abilify 2 2-0 No 2mg mg tablet 09-10 00:00: 00 Abilify 2 2-0 No 15mg mg tablet 09-10 00:00: 00 duloxetine 2-0 No 1mg 30 mg 09-10 capsule,del 00:00: ayed 00 release fenofibrate 2-0 No 1mg micronized -26 134 mg 00:00: capsule 00 potassium 2-0 No 1mEq chloride ER - 10 mEq 00:00: capsule,ext 00 ended release ezetimibe 2-0 No 1mg 10 mg 4-26 tablet 00:00: 00 carvedilol 2022-0 No 2mg 12.5 mg 4-26 tablet 00:00: 00 Aricept 5 2022-0 No 1mg mg tablet 09-10 00:00: 00 cefuroxime 2022-0 No 1mg axetil 500 4-26 mg tablet 00:00: 00 aripiprazol 2022-0 No 5mg e 5 mg 4-26 tablet 00:00: 00 gabapentin 2022-0 No 1mg 800 mg 4-26 tablet 00:00: 00 Abilify 2 2022-0 No 2mg mg tablet 09-10 00:00: 00 Abilify 2 2022-0 No 15mg mg tablet 09-10 00:00: 00 duloxetine 2022-0 No 1mg 30 mg 09-10 capsule,del 00:00: ayed 00 release fenofibrate 2-0 No 1mg micronized 09-10 134 mg 00:00: capsule 00 potassium 2-0 No 1mEq chloride ER 09-10 10 mEq 00:00: capsule,ext 00 ended release ezetimibe 2-0 No 1mg 10 mg - tablet 00:00: 00 carvedilol 2022-0 No 2mg 12.5 mg - tablet 00:00: 00 Aricept 5 2-0 No 1mg mg tablet 09-10 00:00: 00 cefuroxime 2022-0 No 1mg axetil 500 4-26 mg tablet 00:00: 00 aripiprazol 2-0 No 5mg e 5 mg - tablet 00:00: 00 gabapentin 2022-0 No 1mg 800 mg - tablet 00:00: 00 Abilify 2 2022-0 No 2mg mg tablet 09-10 00:00: 00 Abilify 2 2-0 No 15mg mg tablet 09-10 00:00: 00 duloxetine 2-0 No 1mg 30 mg 09-10 capsule,del 00:00: ayed 00 release fenofibrate 2-0 No 1mg micronized 09-10 134 mg 00:00: capsule 00 potassium 2-0 No 1mEq chloride ER 09-10 10 mEq 00:00: capsule,ext 00 ended release Dose 2-0 No Unknown 4- 00:00: 00 aripiprazol 2022-0 No 5mg e 5 mg 08-16 tablet 00:00: 00 Dose 2022-0 No Unknown 4- 00:00: 00 Dose 2022-0 No Unknown 4- 00:00: 00 Dose 2022-0 No Unknown 4-01 00:00: 00 Dose 2022-0 No Unknown 4-01 00:00: 00 aripiprazol 2022-0 No 5mg e 5 mg 4-01 tablet 00:00: 00 Dose 2022-0 No Unknown 4-01 00:00: 00 Dose 2022-0 No Unknown 4-01 00:00: 00 Dose 2022-0 No Unknown 4-01 00:00: 00 Dose 2022-0 No Unknown 4-01 00:00: 00 aripiprazol 2022-0 No 5mg e 5 mg 4-01 tablet 00:00: 00 Dose 2022-0 No Unknown 4-01 00:00: 00 Dose 2022-0 No Unknown 4-01 00:00: 00 Dose 2022-0 No Unknown 4-01 00:00: 00 Dose 2022-0 No Unknown 4-01 00:00: 00 aripiprazol 2022-0 No 5mg e 5 mg 4-01 tablet 00:00: 00 Dose 2022-0 No Unknown 4-01 00:00: 00 Dose 2022-0 No Unknown 4-01 00:00: 00 Dose 2022-0 No Unknown 4-01 00:00: 00 Dose 2022-0 No Unknown 3-24 00:00: 00 Dose 2022-0 No Unknown 3-24 00:00: 00 Dose 2022-0 No Unknown 3-24 00:00: 00 Dose 2022-0 No Unknown 3-24 00:00: 00 Dose 2022-0 No Unknown 3-22 00:00: 00 Dose 2022-0 No Unknown 3-22 00:00: 00 Dose 2022-0 No Unknown 3-22 00:00: 00 Dose 2022-0 No Unknown 3-22 00:00: 00 Dose 2022-0 No Unknown 3-22 00:00: 00 Dose 2022-0 No Unknown 3-22 00:00: 00 Dose 2022-0 No Unknown 3-22 00:00: 00 Dose 2022-0 No Unknown 3-22 00:00: 00 Dose 2022-0 No Unknown 3-22 00:00: 00 Dose 2022-0 No Unknown 3-22 00:00: 00 Dose 2022-0 No Unknown 3-22 00:00: 00 Dose 2022-0 No Unknown 3-22 00:00: 00 Dose 2022-0 No Unknown 3-17 00:00: 00 Dose 2022-0 No Unknown 3-17 00:00: 00 Dose 2022-0 No Unknown 3-17 00:00: 00 Dose 2022-0 No Unknown 3-17 00:00: 00 Dose 2022-0 No Unknown 3-17 00:00: 00 Dose 2022-0 No Unknown 3-17 00:00: 00 Dose 2022-0 No Unknown 3-17 00:00: 00 Dose 2022-0 No Unknown 3-17 00:00: 00 Dose 2022-0 No Unknown 3-17 00:00: 00 Dose 2022-0 No Unknown 3-17 00:00: 00 Dose 2022-0 No Unknown 3-17 00:00: 00 Dose 2022-0 No Unknown 3-17 00:00: 00 Dose 2022-0 No Unknown 3-15 00:00: 00 Dose 2022-0 No Unknown 3-15 00:00: 00 Dose 2022-0 No Unknown 3-15 00:00: 00 Dose 2022-0 No Unknown 3-15 00:00: 00 Dose 2022-0 No Unknown 3-08 00:00: 00 Dose 2022-0 No Unknown 3-08 00:00: 00 Dose 2022-0 No Unknown 3-08 00:00: 00 Dose 2022-0 No Unknown 3-08 00:00: 00 Dose 2022-0 No Unknown 3-08 00:00: 00 Dose 2022-0 No Unknown 3-08 00:00: 00 Dose 2022-0 No Unknown 3-08 00:00: 00 Dose 2022-0 No Unknown 3-08 00:00: 00 Dose 2022-0 No Unknown 3-03 00:00: 00 Dose 2022-0 No Unknown 3-03 00:00: 00 Dose 2022-0 No Unknown 3-03 00:00: 00 Dose 2022-0 No Unknown 3-03 00:00: 00 duloxetine 2022-0 No 1mg 30 mg 3-03 capsule,del 00:00: ayed 00 release fenofibrate 2022-0 No 1mg micronized 3-03 134 mg 00:00: capsule 00 Dose 2022-0 No Unknown 3-03 00:00: 00 Dose 2022-0 No Unknown 3-03 00:00: 00 Dose 2022-0 No Unknown 3-03 00:00: 00 Dose 2022-0 No Unknown 3-03 00:00: 00 Dose 2022-0 No Unknown 3-03 00:00: 00 Dose 2022-0 No Unknown 3-03 00:00: 00 Dose 2022-0 No Unknown 3-03 00:00: 00 Dose 2022-0 No Unknown 3-03 00:00: 00 Dose 2022-0 No Unknown 3-03 00:00: 00 Dose 2022-0 No Unknown 3-03 00:00: 00 Dose 2022-0 No Unknown 3-03 00:00: 00 Dose 2022-0 No Unknown 3-03 00:00: 00 Dose 2022-0 No Unknown 3-03 00:00: 00 Dose 2022-0 No Unknown 3-03 00:00: 00 Dose 2022-0 No Unknown 3-03 00:00: 00 Dose 2022-0 No Unknown 3-03 00:00: 00 Dose 2022-0 No Unknown 3-03 00:00: 00 Dose 2022-0 No Unknown 3-03 00:00: 00 Dose 2022-0 No Unknown 3-03 00:00: 00 Dose 2022-0 No Unknown 3-03 00:00: 00 Dose 2022-0 No Unknown 3-03 00:00: 00 Dose 2022-0 No Unknown 3-03 00:00: 00 Dose 2022-0 No Unknown 3-03 00:00: 00 Dose 2022-0 No Unknown 3-03 00:00: 00 Dose 2022-0 No Unknown 3-03 00:00: 00 Dose 2022-0 No Unknown 3-03 00:00: 00 Dose 2022-0 No Unknown 3-03 00:00: 00 Dose 2022-0 No Unknown 3-03 00:00: 00 Dose 2022-0 No Unknown 3-03 00:00: 00 Dose 2022-0 No Unknown 3-03 00:00: 00 Dose 2022-0 No Unknown 3-03 00:00: 00 Dose 2022-0 No Unknown 3-03 00:00: 00 Dose 2022-0 No Unknown 3-03 00:00: 00 Dose 2022-0 No Unknown 3-03 00:00: 00 Dose 2022-0 No Unknown 3-03 00:00: 00 Dose 2022-0 No Unknown 3-03 00:00: 00 Dose 2022-0 No Unknown 3-03 00:00: 00 Dose 2022-0 No Unknown 3-03 00:00: 00 Dose 2022-0 No Unknown 3-03 00:00: 00 Dose 2022-0 No Unknown 3-03 00:00: 00 Dose 2022-0 No Unknown 3-03 00:00: 00 Dose 2022-0 No Unknown 3-03 00:00: 00 duloxetine 2022-0 No 1mg 30 mg 3-03 capsule,del 00:00: ayed 00 release fenofibrate 2022-0 No 1mg micronized 3-03 134 mg 00:00: capsule 00 Dose 2022-0 No Unknown 3-03 00:00: 00 Dose 2022-0 No Unknown 3-03 00:00: 00 Dose 2022-0 No Unknown 3-03 00:00: 00 Dose 2022-0 No Unknown 3-03 00:00: 00 Dose 2022-0 No Unknown 3-03 00:00: 00 Dose 2022-0 No Unknown 3-03 00:00: 00 Dose 2022-0 No Unknown 3-03 00:00: 00 Dose 2022-0 No Unknown 3-03 00:00: 00 Dose 2022-0 No Unknown 3-03 00:00: 00 Dose 2022-0 No Unknown 3-03 00:00: 00 Dose 2022-0 No Unknown 3-03 00:00: 00 Dose 2022-0 No Unknown 3-03 00:00: 00 Dose 2022-0 No Unknown 3-03 00:00: 00 Dose 2022-0 No Unknown 3-03 00:00: 00 Dose 2022-0 No Unknown 3-03 00:00: 00 Dose 2022-0 No Unknown 3-03 00:00: 00 Dose 2022-0 No Unknown 3-03 00:00: 00 Dose 2022-0 No Unknown 3-03 00:00: 00 Dose 2022-0 No Unknown 3-03 00:00: 00 Dose 2022-0 No Unknown 3-03 00:00: 00 Dose 2022-0 No Unknown 3-03 00:00: 00 Dose 2022-0 No Unknown 3-03 00:00: 00 Dose 2022-0 No Unknown 3-03 00:00: 00 Dose 2022-0 No Unknown 3-03 00:00: 00 Dose 2022-0 No Unknown 3-03 00:00: 00 duloxetine 2022-0 No 1mg 30 mg 3-03 capsule,del 00:00: ayed 00 release fenofibrate 2022-0 No 1mg micronized 3-03 134 mg 00:00: capsule 00 Dose 2022-0 No Unknown 3-03 00:00: 00 Dose 2022-0 No Unknown 3-03 00:00: 00 Dose 2022-0 No Unknown 3-03 00:00: 00 Dose 2022-0 No Unknown 3-03 00:00: 00 Dose 2022-0 No Unknown 3-03 00:00: 00 Dose 2022-0 No Unknown 3-03 00:00: 00 Dose 2022-0 No Unknown 3-03 00:00: 00 Dose 2022-0 No Unknown 3-03 00:00: 00 Dose 2022-0 No Unknown 3-03 00:00: 00 Dose 2022-0 No Unknown 3-03 00:00: 00 Dose 2022-0 No Unknown 3-03 00:00: 00 Dose 2022-0 No Unknown 3-03 00:00: 00 Dose 2022-0 No Unknown 3-03 00:00: 00 Dose 2022-0 No Unknown 3-03 00:00: 00 Dose 2022-0 No Unknown 3-03 00:00: 00 Dose 2022-0 No Unknown 3-03 00:00: 00 Dose 2022-0 No Unknown 3-03 00:00: 00 Dose 2022-0 No Unknown 3-03 00:00: 00 Dose 2022-0 No Unknown 3-03 00:00: 00 Dose 2022-0 No Unknown 3-03 00:00: 00 Dose 2022-0 No Unknown 3-03 00:00: 00 Dose 2022-0 No Unknown 3-03 00:00: 00 Dose 2022-0 No Unknown 3-03 00:00: 00 Dose 2022-0 No Unknown 3-03 00:00: 00 Dose 2022-0 No Unknown 3-03 00:00: 00 duloxetine 2022-0 No 1mg 30 mg 3-03 capsule,del 00:00: ayed 00 release fenofibrate 2022-0 No 1mg micronized 3-03 134 mg 00:00: capsule 00 Dose 2022-0 No Unknown 3-03 00:00: 00 Dose 2022-0 No Unknown 3-03 00:00: 00 Dose 2022-0 No Unknown 3-03 00:00: 00 Dose 2022-0 No Unknown 3-03 00:00: 00 Abilify 2 2022-0 No 1mg mg tablet 2-24 00:00: 00 Abilify 2 2022-0 No 1mg mg tablet 2-24 00:00: 00 Abilify 2 2022-0 No 1mg mg tablet 2-24 00:00: 00 Abilify 2 2022-0 No 1mg mg tablet 2-24 00:00: 00 Macrobid 2022-0 No 1mg 100 mg 2-03 capsule 00:00: 00 Macrobid 2022-0 No 1mg 100 mg 2-03 capsule 00:00: 00 Macrobid 2022-0 No 1mg 100 mg 2-03 capsule 00:00: 00 Macrobid 2022-0 No 1mg 100 mg 2-03 capsule 00:00: 00 metformin 2022-0 No 1mg 1,000 mg 1-26 tablet 00:00: 00 metformin 2022-0 No 1mg 1,000 mg 1-26 tablet 00:00: 00 metformin 2022-0 No 1mg 1,000 mg 1-26 tablet 00:00: 00 metformin 2022-0 No 1mg 1,000 mg 1-26 tablet 00:00: 00 Abilify 2 2022-0 No 1mg mg tablet 1-13 00:00: 00 Dose 2022-0 No Unknown 1-13 00:00: 00 Abilify 2 2022-0 No 1mg mg tablet 1-13 00:00: 00 Dose 2022-0 No Unknown 1-13 00:00: 00 Abilify 2 2022-0 No 1mg mg tablet 1-13 00:00: 00 Dose 2022-0 No Unknown 1-13 00:00: 00 Abilify 2 2022-0 No 1mg mg tablet 1-13 00:00: 00 Dose 2022-0 No Unknown 1-13 00:00: 00 ezetimibe 2021-1 No 1mg 10 mg 2-24 tablet 00:00: 00 carvedilol 2021-1 No 2mg 12.5 mg 2-24 tablet 00:00: 00 furosemide 1-1 No 1mg 20 mg 2-24 tablet 00:00: 00 Dose 2021-1 No Unknown 2-24 00:00: 00 ezetimibe 2021-1 No 1mg 10 mg 2-24 tablet 00:00: 00 carvedilol 2021-1 No 2mg 12.5 mg 2-24 tablet 00:00: 00 furosemide 2021-1 No 1mg 20 mg 2-24 tablet 00:00: 00 Dose 2021-1 No Unknown 2-24 00:00: 00 ezetimibe 2021-1 No 1mg 10 mg 2-24 tablet 00:00: 00 carvedilol 1-1 No 2mg 12.5 mg 2-24 tablet 00:00: 00 furosemide 1-1 No 1mg 20 mg 2-24 tablet 00:00: 00 Dose 1-1 No Unknown 2-24 00:00: 00 ezetimibe 1-1 No 1mg 10 mg 2-24 tablet 00:00: 00 carvedilol 1-1 No 2mg 12.5 mg 2-24 tablet 00:00: 00 furosemide 1-1 No 1mg 20 mg 2-24 tablet 00:00: 00 Dose 1-1 No Unknown 2-24 00:00: 00 Abilify 2 1-1 No 1mg mg tablet 2-20 00:00: 00 duloxetine 1-1 No 1mg 30 mg 2-20 capsule,del 00:00: ayed 00 release Abilify 2 1-1 No 1mg mg tablet 2-20 00:00: 00 duloxetine 1-1 No 1mg 30 mg 2-20 capsule,del 00:00: ayed 00 release Abilify 2 1-1 No 1mg mg tablet 2-20 00:00: 00 duloxetine 1-1 No 1mg 30 mg 2-20 capsule,del 00:00: ayed 00 release Abilify 2 1-1 No 1mg mg tablet 2-20 00:00: 00 duloxetine 1-1 No 1mg 30 mg 2-20 capsule,del 00:00: ayed 00 release Cipro 500 1-1 No 1mg mg tablet 1-24 00:00: 00 Cipro 500 1-1 No 1mg mg tablet 1-24 00:00: 00 Cipro 500 2020-1 No 1mg mg tablet 124 00:00: 00 Cipro 500 2020-1 No 1mg mg tablet 124 00:00: 00 Dose 2020-1 No Unknown 118 00:00: 00 duloxetine 2020-1 No 1mg 30 mg 1-18 capsule,del 00:00: ayed 00 release Zyprexa 5 2020- No 1mg mg tablet 118 00:00: 00 duloxetine 2020-1 No 1mg 30 mg 1-18 capsule,del 00:00: ayed 00 release Dose 2020-1 No Unknown 118 00:00: 00 duloxetine 2020-1 No 1mg 30 mg 1-18 capsule,del 00:00: ayed 00 release Zyprexa 5 2020- No 1mg mg tablet 118 00:00: 00 duloxetine 2020-1 No 1mg 30 mg 1-18 capsule,del 00:00: ayed 00 release pantoprazol 2020- No 1mg e 40 mg 1-15 tablet,norm 00:00: yed release 00 pantoprazol 2020-1 No 1mg e 40 mg 1-15 tablet,norm 00:00: yed release 00 pantoprazol 2020-1 No 1mg e 40 mg 1-15 tablet,norm 00:00: yed release 00 pantoprazol 2020-1 No 1mg e 40 mg 1-15 tablet,norm 00:00: yed release 00 Zyprexa 5 2020- No 1mg mg tablet 0-27 00:00: 00 duloxetine 2020-1 No 1mg 30 mg 0-27 capsule,del 00:00: ayed 00 release Zyprexa 5 2020- No 1mg mg tablet 0-27 00:00: 00 duloxetine 2020-1 No 1mg 30 mg 0-27 capsule,del 00:00: ayed 00 release Zyprexa 5 2020- No 1mg mg tablet 0-27 00:00: 00 duloxetine 2020-1 No 1mg 30 mg 0-27 capsule,del 00:00: ayed 00 release Zyprexa 5 2020- No 1mg mg tablet 0-27 00:00: 00 duloxetine 2021-1 No 1mg 30 mg 0-27 capsule,del 00:00: ayed 00 release Zyprexa 2.5 1-1 No 1mg mg tablet 0-14 00:00: 00 duloxetine 1-1 No 1mg 30 mg 0-14 capsule,del 00:00: ayed 00 release duloxetine 1-1 No 1mg 30 mg 0-14 capsule,del 00:00: ayed 00 release Zyprexa 2.5 1-1 No 1mg mg tablet 0-14 00:00: 00 duloxetine 1-1 No 1mg 30 mg 0-14 capsule,del 00:00: ayed 00 release duloxetine 1-1 No 1mg 30 mg 0-14 capsule,del 00:00: ayed 00 release Zyprexa 2.5 1-1 No 1mg mg tablet 0-14 00:00: 00 duloxetine 1-1 No 1mg 30 mg 0-14 capsule,del 00:00: ayed 00 release duloxetine 1-1 No 1mg 30 mg 0-14 capsule,del 00:00: ayed 00 release Zyprexa 2.5 1-1 No 1mg mg tablet 0-14 00:00: 00 duloxetine 1-1 No 1mg 30 mg 0-14 capsule,del 00:00: ayed 00 release duloxetine 1-1 No 1mg 30 mg 0-14 capsule,del 00:00: ayed 00 release nystatin 1-1 No 1unit/g 100,000 0-07 milad unit/gram 00:00: topical 00 powder duloxetine 1-1 No 1mg 30 mg 0-07 capsule,del 00:00: ayed 00 release nystatin 1-1 No 1unit/g 100,000 0-07 milad unit/gram 00:00: topical 00 powder duloxetine 1-1 No 1mg 30 mg 0-07 capsule,del 00:00: ayed 00 release nystatin 1-1 No 1unit/g 100,000 0-07 milad unit/gram 00:00: topical 00 powder duloxetine 1-1 No 1mg 30 mg 0-07 capsule,del 00:00: ayed 00 release nystatin 1-1 No 1unit/g 100,000 0-07 milad unit/gram 00:00: topical 00 powder duloxetine 2021-1 No 1mg 30 mg 0-07 capsule,del 00:00: ayed 00 release Abilify 2 2021-0 No 1mg mg tablet 01-24 00:00: 00 clonazepam 2021-0 No 1mg 1 mg tablet 01-24 00:00: 00 clonazepam 2021-0 No 1mg 1 mg tablet 01-24 00:00: 00 Abilify 2 2021-0 No 1mg mg tablet 01-24 00:00: 00 clonazepam 2021-0 No 1mg 1 mg tablet 01-24 00:00: 00 clonazepam 2021-0 No 1mg 1 mg tablet 01-24 00:00: 00 Abilify 2 2021-0 No 1mg mg tablet 01-24 00:00: 00 Abilify 2 2021-0 No 1mg mg tablet 01-24 00:00: 00 clonazepam 2021-0 No 1mg 1 mg tablet 01-24 00:00: 00 clonazepam 2021-0 No 1mg 1 mg tablet 01-24 00:00: 00 clonazepam 2021-0 No 1mg 1 mg tablet 01-24 00:00: 00 clonazepam 2021-0 No 1mg 1 mg tablet 01-24 00:00: 00 metformin 2021-0 No 1mg 1,000 mg 8-31 tablet 00:00: 00 gabapentin 2021-0 No 1mg 800 mg 8-31 tablet 00:00: 00 losartan 50 1-0 No 1mg mg tablet 01-15 00:00: 00 furosemide 2021-0 No 1mg 20 mg 8-31 tablet 00:00: 00 ropinirole 2021-0 No 1mg 0.5 mg 8-31 tablet 00:00: 00 pantoprazol 2021-0 No 1mg e 40 mg 8-31 tablet,norm 00:00: yed release 00 ropinirole 2021-0 No 1mg 0.5 mg 8-31 tablet 00:00: 00 duloxetine 2021-0 No 1mg 30 mg 8-31 capsule,del 00:00: ayed 00 release fenofibrate 1-0 No 1mg micronized 8-31 134 mg 00:00: capsule 00 Dose 1-0 No Unknown 8-31 00:00: 00 Levemir 2021-0 No (3 mL) FlexTouch 8-31 U-100 00:00: Insulin 100 00 unit/mL (3 mL) subcutaneou s pen clopidogrel 2021-0 No 1mg 75 mg 8-31 tablet 00:00: 00 ezetimibe 2021-0 No 1mg 10 mg 8-31 tablet 00:00: 00 carvedilol 2021-0 No 2mg 12.5 mg 8-31 tablet 00:00: 00 metformin 2021-0 No 1mg 1,000 mg 8-31 tablet 00:00: 00 gabapentin 2021-0 No 1mg 800 mg 8-31 tablet 00:00: 00 losartan 50 2021-0 No 1mg mg tablet 8-31 00:00: 00 furosemide 2021-0 No 1mg 20 mg 8-31 tablet 00:00: 00 ropinirole 2021-0 No 1mg 0.5 mg 8-31 tablet 00:00: 00 pantoprazol 1-0 No 1mg e 40 mg 8-31 tablet,norm 00:00: yed release 00 ropinirole 2021-0 No 1mg 0.5 mg 8-31 tablet 00:00: 00 duloxetine 1-0 No 1mg 30 mg 8-31 capsule,del 00:00: ayed 00 release fenofibrate 1-0 No 1mg micronized 8-31 134 mg 00:00: capsule 00 Dose 1-0 No Unknown 8-31 00:00: 00 Levemir 2021-0 No (3 mL) FlexTouch 8-31 U-100 00:00: Insulin 100 00 unit/mL (3 mL) subcutaneou s pen clopidogrel 1-0 No 1mg 75 mg 8-31 tablet 00:00: 00 ezetimibe 2021-0 No 1mg 10 mg 8-31 tablet 00:00: 00 carvedilol 2021-0 No 2mg 12.5 mg 8-31 tablet 00:00: 00 metformin 2021-0 No 1mg 1,000 mg 8-31 tablet 00:00: 00 gabapentin 2021-0 No 1mg 800 mg 8-31 tablet 00:00: 00 losartan 50 2021-0 No 1mg mg tablet 8-31 00:00: 00 furosemide 2021-0 No 1mg 20 mg 8-31 tablet 00:00: 00 ropinirole 2021-0 No 1mg 0.5 mg 8-31 tablet 00:00: 00 pantoprazol 2021-0 No 1mg e 40 mg 8-31 tablet,norm 00:00: yed release 00 ropinirole 2021-0 No 1mg 0.5 mg 8-31 tablet 00:00: 00 duloxetine 2021-0 No 1mg 30 mg 8-31 capsule,del 00:00: ayed 00 release fenofibrate 2021-0 No 1mg micronized 8-31 134 mg 00:00: capsule 00 Levemir 2021-0 No (3 mL) FlexTouch 8-31 U-100 00:00: Insulin 100 00 unit/mL (3 mL) subcutaneou s pen Dose 1-0 No Unknown 01-15 00:00: 00 Dose 2021-0 No Unknown 01-15 00:00: 00 ezetimibe 2021-0 No 1mg 10 mg 8-31 tablet 00:00: 00 carvedilol 2021-0 No 2mg 12.5 mg 8-31 tablet 00:00: 00 metformin 2021-0 No 1mg 1,000 mg 8-31 tablet 00:00: 00 gabapentin 2021-0 No 1mg 800 mg 8-31 tablet 00:00: 00 losartan 50 2021-0 No 1mg mg tablet 01-15 00:00: 00 furosemide 2021-0 No 1mg 20 mg 8-31 tablet 00:00: 00 ropinirole 2021-0 No 1mg 0.5 mg 8-31 tablet 00:00: 00 pantoprazol 2021-0 No 1mg e 40 mg 8-31 tablet,norm 00:00: yed release 00 ropinirole 2021-0 No 1mg 0.5 mg 8-31 tablet 00:00: 00 duloxetine 2021-0 No 1mg 30 mg 8-31 capsule,del 00:00: ayed 00 release fenofibrate 2021-0 No 1mg micronized 8-31 134 mg 00:00: capsule 00 Dose 1-0 No Unknown 01-15 00:00: 00 Levemir 2021-0 No (3 mL) FlexTouch 8-31 U-100 00:00: Insulin 100 00 unit/mL (3 mL) subcutaneou s pen Dose 1-0 No Unknown 8-31 00:00: 00 ezetimibe 2021-0 No 1mg 10 mg 8-31 tablet 00:00: 00 carvedilol 2021-0 No 2mg 12.5 mg 8-31 tablet 00:00: 00 Levemir 2021-0 No (3 mL) FlexTouch 8-17 U-100 00:00: Insulin 100 00 unit/mL (3 mL) subcutaneou s pen carvedilol 1-0 No 2mg 12.5 mg 8-17 tablet 00:00: 00 ezetimibe 2021-0 No 1mg 10 mg 8-17 tablet 00:00: 00 clopidogrel 2021-0 No 1mg 75 mg 8-17 tablet 00:00: 00 metformin 2021-0 No 1mg 1,000 mg 8-17 tablet 00:00: 00 gabapentin 2021-0 No 1mg 800 mg 8-17 tablet 00:00: 00 furosemide 2021-0 No 1mg 20 mg 8-17 tablet 00:00: 00 losartan 50 2021-0 No 1mg mg tablet 8-17 00:00: 00 ropinirole 2021-0 No 1mg 0.5 mg 8-17 tablet 00:00: 00 duloxetine 2021-0 No 1mg 30 mg 8-17 capsule,del 00:00: ayed 00 release fenofibrate 1-0 No 1mg micronized 8-17 134 mg 00:00: capsule 00 Levemir 2021-0 No (3 mL) FlexTouch 8-17 U-100 00:00: Insulin 100 00 unit/mL (3 mL) subcutaneou s pen carvedilol 1-0 No 2mg 12.5 mg 8-17 tablet 00:00: 00 ezetimibe 2021-0 No 1mg 10 mg 8-17 tablet 00:00: 00 clopidogrel 2021-0 No 1mg 75 mg 8-17 tablet 00:00: 00 metformin 2021-0 No 1mg 1,000 mg 8-17 tablet 00:00: 00 gabapentin 2021-0 No 1mg 800 mg 8-17 tablet 00:00: 00 furosemide 2021-0 No 1mg 20 mg 8-17 tablet 00:00: 00 losartan 50 2021-0 No 1mg mg tablet 8-17 00:00: 00 ropinirole 2021-0 No 1mg 0.5 mg 8-17 tablet 00:00: 00 duloxetine 2021-0 No 1mg 30 mg 8-17 capsule,del 00:00: ayed 00 release fenofibrate 2021-0 No 1mg micronized 8-17 134 mg 00:00: capsule 00 Levemir 2021-0 No (3 mL) FlexTouch 8-17 U-100 00:00: Insulin 100 00 unit/mL (3 mL) subcutaneou s pen carvedilol 2021-0 No 2mg 12.5 mg 8-17 tablet 00:00: 00 ezetimibe 2021-0 No 1mg 10 mg 8-17 tablet 00:00: 00 clopidogrel 2021-0 No 1mg 75 mg 8-17 tablet 00:00: 00 metformin 2021-0 No 1mg 1,000 mg 8-17 tablet 00:00: 00 gabapentin 2021-0 No 1mg 800 mg 8-17 tablet 00:00: 00 furosemide 2021-0 No 1mg 20 mg 8-17 tablet 00:00: 00 losartan 50 2021-0 No 1mg mg tablet 8-17 00:00: 00 ropinirole 2021-0 No 1mg 0.5 mg 8-17 tablet 00:00: 00 duloxetine 1-0 No 1mg 30 mg 8-17 capsule,del 00:00: ayed 00 release fenofibrate 1-0 No 1mg micronized 8-17 134 mg 00:00: capsule 00 Levemir 2021-0 No (3 mL) FlexTouch 8-17 U-100 00:00: Insulin 100 00 unit/mL (3 mL) subcutaneou s pen carvedilol 1-0 No 2mg 12.5 mg 8-17 tablet 00:00: 00 ezetimibe 2021-0 No 1mg 10 mg 8-17 tablet 00:00: 00 clopidogrel 2021-0 No 1mg 75 mg 8-17 tablet 00:00: 00 metformin 2021-0 No 1mg 1,000 mg 8-17 tablet 00:00: 00 gabapentin 2021-0 No 1mg 800 mg 8-17 tablet 00:00: 00 furosemide 2021-0 No 1mg 20 mg 8-17 tablet 00:00: 00 losartan 50 2021-0 No 1mg mg tablet 8-17 00:00: 00 ropinirole 2021-0 No 1mg 0.5 mg 8-17 tablet 00:00: 00 duloxetine 2021-0 No 1mg 30 mg 8-17 capsule,del 00:00: ayed 00 release fenofibrate 2021-0 No 1mg micronized 8-17 134 mg 00:00: capsule 00 Macrodantin 2021-0 No 1mg 100 mg 7-15 capsule 00:00: 00 Macrodantin 2021-0 No 1mg 100 mg 7-15 capsule 00:00: 00 Macrodantin 2021-0 No 1mg 100 mg 7-15 capsule 00:00: 00 Macrodantin 2021-0 No 1mg 100 mg 7-15 capsule 00:00: 00 duloxetine 2021-0 No 1mg 30 mg 7-08 capsule,del 00:00: ayed 00 release duloxetine 2021-0 No 1mg 30 mg 7-08 capsule,del 00:00: ayed 00 release duloxetine 2021-0 No 1mg 30 mg 7-08 capsule,del 00:00: ayed 00 release duloxetine 2021-0 No 1mg 30 mg 7-08 capsule,del 00:00: ayed 00 release carvedilol 2021-0 No 2mg 12.5 mg 5-21 tablet 00:00: 00 fenofibrate 2021-0 No 1mg micronized 5-21 134 mg 00:00: capsule 00 carvedilol 2021-0 No 2mg 12.5 mg 5-21 tablet 00:00: 00 fenofibrate 2021-0 No 1mg micronized 5-21 134 mg 00:00: capsule 00 carvedilol 2021-0 No 2mg 12.5 mg 5-21 tablet 00:00: 00 fenofibrate 2021-0 No 1mg micronized 5-21 134 mg 00:00: capsule 00 carvedilol 2021-0 No 2mg 12.5 mg 5-21 tablet 00:00: 00 fenofibrate 2021-0 No 1mg micronized 5-21 134 mg 00:00: capsule 00 ciprofloxac 2021-0 No 1mg in 500 mg 4-14 tablet 00:00: 00 Align 4 mg 2021-0 No 1mg capsule 4-14 00:00: 00 ciprofloxac 2021-0 No 1mg in 500 mg 4-14 tablet 00:00: 00 Align 4 mg 2021-0 No 1mg capsule 4-14 00:00: 00 ciprofloxac 2021-0 No 1mg in 500 mg 4-14 tablet 00:00: 00 Align 4 mg 2021-0 No 1mg capsule 4-14 00:00: 00 ciprofloxac 2021-0 No 1mg in 500 mg 4-14 tablet 00:00: 00 Align 4 mg 2021-0 No 1mg capsule 4-14 00:00: 00 nystatin 2021-0 No 1unit/g 100,000 3-31 milad unit/gram 00:00: topical 00 powder Levemir 1-0 No (3 mL) FlexTouch 3-31 U-100 00:00: Insulin 100 00 unit/mL (3 mL) subcutaneou s pen metformin 1-0 No 1mg 1,000 mg 3-31 tablet 00:00: 00 gabapentin 2021-0 No 1mg 800 mg 3-31 tablet 00:00: 00 losartan 50 1-0 No 1mg mg tablet 3-31 00:00: 00 nystatin 2021-0 No 1unit/g 100,000 3-31 milad unit/gram 00:00: topical 00 powder Levemir 1-0 No (3 mL) FlexTouch 3-31 U-100 00:00: Insulin 100 00 unit/mL (3 mL) subcutaneou s pen metformin 1-0 No 1mg 1,000 mg 3-31 tablet 00:00: 00 gabapentin 2021-0 No 1mg 800 mg 3-31 tablet 00:00: 00 losartan 50 2021-0 No 1mg mg tablet 3-31 00:00: 00 pantoprazol 2021-0 No 1mg e 40 mg 3-31 tablet,norm 00:00: yed release 00 ropinirole 2021-0 No 1mg 0.5 mg 3-31 tablet 00:00: 00 pantoprazol 2021-0 No 1mg e 40 mg 3-31 tablet,norm 00:00: yed release 00 ropinirole 2021-0 No 1mg 0.5 mg 3-31 tablet 00:00: 00 nystatin 2021-0 No 1unit/g 100,000 3-31 milad unit/gram 00:00: topical 00 powder Levemir 2021-0 No (3 mL) FlexTouch 3-31 U-100 00:00: Insulin 100 00 unit/mL (3 mL) subcutaneou s pen metformin 2021-0 No 1mg 1,000 mg 3-31 tablet 00:00: 00 gabapentin 2021-0 No 1mg 800 mg 3-31 tablet 00:00: 00 losartan 50 2021-0 No 1mg mg tablet 3-31 00:00: 00 pantoprazol 2021-0 No 1mg e 40 mg 3-31 tablet,norm 00:00: yed release 00 ropinirole 2021-0 No 1mg 0.5 mg 3-31 tablet 00:00: 00 nystatin 2021-0 No 1unit/g 100,000 3-31 milad unit/gram 00:00: topical 00 powder Levemir 2021-0 No (3 mL) FlexTouch 3-31 U-100 00:00: Insulin 100 00 unit/mL (3 mL) subcutaneou s pen metformin 1-0 No 1mg 1,000 mg 3-31 tablet 00:00: 00 gabapentin 2021-0 No 1mg 800 mg 3-31 tablet 00:00: 00 losartan 50 2021-0 No 1mg mg tablet 3-31 00:00: 00 pantoprazol 2021-0 No 1mg e 40 mg 3-31 tablet,norm 00:00: yed release 00 ropinirole 2021-0 No 1mg 0.5 mg 3-31 tablet 00:00: 00 Levemir 2021-0 No (3 mL) FlexTouch 3-09 U-100 00:00: Insulin 100 00 unit/mL (3 mL) subcutaneou s pen Levemir 2021-0 No (3 mL) FlexTouch 3-09 U-100 00:00: Insulin 100 00 unit/mL (3 mL) subcutaneou s pen Levemir 2021-0 No (3 mL) FlexTouch 3-09 U-100 00:00: Insulin 100 00 unit/mL (3 mL) subcutaneou s pen Levemir 2021-0 No (3 mL) FlexTouch 3-09 U-100 00:00: Insulin 100 00 unit/mL (3 mL) subcutaneou s pen Levemir 2020-0 No (3 mL) FlexTouch 3-09 U-100 00:00: Insulin 100 00 unit/mL (3 mL) subcutaneou s pen Levemir 2020-0 No (3 mL) FlexTouch 3-09 U-100 00:00: Insulin 100 00 unit/mL (3 mL) subcutaneou s pen Levemir 2020-0 No (3 mL) FlexTouch 3- U-100 00:00: Insulin 100 00 unit/mL (3 mL) subcutaneou s pen Levemir 2020-0 No (3 mL) FlexTouch 3-09 U-100 00:00: Insulin 100 00 unit/mL (3 mL) subcutaneou s pen metformin 1-0 No 1mg 1,000 mg 3-05 tablet 00:00: 00 gabapentin 2021-0 No 1mg 800 mg 3-05 tablet 00:00: 00 losartan 50 2021-0 No 1mg mg tablet 3-05 00:00: 00 metformin 2021-0 No 1mg 1,000 mg 3-05 tablet 00:00: 00 gabapentin 2021-0 No 1mg 800 mg 3-05 tablet 00:00: 00 losartan 50 2021-0 No 1mg mg tablet 3-05 00:00: 00 metformin 2021-0 No 1mg 1,000 mg 3-05 tablet 00:00: 00 gabapentin 2021-0 No 1mg 800 mg 3-05 tablet 00:00: 00 losartan 50 2021-0 No 1mg mg tablet 3-05 00:00: 00 metformin 2021-0 No 1mg 1,000 mg 3-05 tablet 00:00: 00 gabapentin 2021-0 No 1mg 800 mg 3-05 tablet 00:00: 00 losartan 50 2021-0 No 1mg mg tablet 3-05 00:00: 00 gabapentin 2021-0 No 1mg 800 mg 2-01 tablet 00:00: 00 gabapentin 2021-0 No 1mg 800 mg 2-01 tablet 00:00: 00 gabapentin 2021-0 No 1mg 800 mg 2-01 tablet 00:00: 00 gabapentin 2021-0 No 1mg 800 mg 2-01 tablet 00:00: 00 losartan 50 2021-0 No 1mg mg tablet 1-19 00:00: 00 losartan 50 2021-0 No 1mg mg tablet 1-19 00:00: 00 losartan 50 1-0 No 1mg mg tablet 1-19 00:00: 00 losartan 50 2021-0 No 1mg mg tablet - 00:00: 00 metformin 2020-1 No 1mg 1,000 mg 2-29 tablet 00:00: 00 metformin 2020-1 No 1mg 1,000 mg 2-29 tablet 00:00: 00 metformin 2020-1 No 1mg 1,000 mg 2-29 tablet 00:00: 00 metformin 2020-1 No 1mg 1,000 mg 2-29 tablet 00:00: 00 gabapentin 2020-1 No 1mg 800 mg 1-03 tablet 00:00: 00 gabapentin 2020-1 No 1mg 800 mg 1-03 tablet 00:00: 00 gabapentin 2020-1 No 1mg 800 mg 1-03 tablet 00:00: 00 gabapentin 2020-1 No 1mg 800 mg 1-03 tablet 00:00: 00 Augmentin 2020-1 No 1mg 875 mg-125 0-30 mg tablet 00:00: 00 Augmentin 2020-1 No 1mg 875 mg-125 0-30 mg tablet 00:00: 00 Augmentin 2020-1 No 1mg 875 mg-125 0-30 mg tablet 00:00: 00 Augmentin 2020-1 No 1mg 875 mg-125 0-30 mg tablet 00:00: 00 losartan 50 2020-1 No 1mg mg tablet 0-16 00:00: 00 losartan 50 2020-1 No 1mg mg tablet 0-16 00:00: 00 losartan 50 2020-1 No 1mg mg tablet 0-16 00:00: 00 losartan 50 2020-1 No 1mg mg tablet 0-16 00:00: 00 Macrodantin 2020-1 No 1mg 100 mg 0-07 capsule 00:00: 00 Macrodantin 2020-1 No 1mg 100 mg 0-07 capsule 00:00: 00 Macrodantin 2020-1 No 1mg 100 mg 0-07 capsule 00:00: 00 Macrodantin 2020-1 No 1mg 100 mg 0-07 capsule 00:00: 00 gabapentin 2020-0 No 1mg 800 mg 8-07 tablet 00:00: 00 gabapentin 2020-0 No 1mg 800 mg 8-07 tablet 00:00: 00 gabapentin 2020-0 No 1mg 800 mg 8-07 tablet 00:00: 00 gabapentin 2020-0 No 1mg 800 mg 8-07 tablet 00:00: 00 pantoprazol 2020-0 No 1mg e 40 mg 3-10 tablet,norm 00:00: yed release 00 pantoprazol 2020-0 No 1mg e 40 mg 3-10 tablet,norm 00:00: yed release 00 pantoprazol 2020-0 No 1mg e 40 mg 3-10 tablet,norm 00:00: yed release 00 pantoprazol 2020-0 No 1mg e 40 mg 3-10 tablet,norm 00:00: yed release 00 ezetimibe 2020-0 No 1mg 10 mg 2-21 tablet 00:00: 00 clopidogrel 2020-0 No 1mg 75 mg 2-21 tablet 00:00: 00 gabapentin 2020-0 No 1mg 800 mg 2-21 tablet 00:00: 00 furosemide 2020-0 No 1mg 20 mg 2-21 tablet 00:00: 00 losartan 50 2020-0 No 1mg mg tablet 2-21 00:00: 00 ropinirole 2020-0 No 1mg 0.5 mg 2-21 tablet 00:00: 00 duloxetine 2020-0 No 1mg 30 mg 2-21 capsule,del 00:00: ayed 00 release nystatin 2020-0 No 1unit/g 100,000 2-21 milad unit/gram 00:00: topical 00 powder carvedilol 2020-0 No 2mg 12.5 mg 2-21 tablet 00:00: 00 ezetimibe 2020-0 No 1mg 10 mg 2-21 tablet 00:00: 00 clopidogrel 2020-0 No 1mg 75 mg 2-21 tablet 00:00: 00 gabapentin 2020-0 No 1mg 800 mg 2-21 tablet 00:00: 00 furosemide 2020-0 No 1mg 20 mg 2-21 tablet 00:00: 00 losartan 50 2020-0 No 1mg mg tablet 2-21 00:00: 00 ropinirole 2020-0 No 1mg 0.5 mg 2-21 tablet 00:00: 00 duloxetine 2020-0 No 1mg 30 mg 2-21 capsule,del 00:00: ayed 00 release nystatin 2020-0 No 1unit/g 100,000 2-21 milad unit/gram 00:00: topical 00 powder carvedilol 2020-0 No 2mg 12.5 mg 2-21 tablet 00:00: 00 ezetimibe 2020-0 No 1mg 10 mg 2-21 tablet 00:00: 00 clopidogrel 2020-0 No 1mg 75 mg 2-21 tablet 00:00: 00 gabapentin 2020-0 No 1mg 800 mg 2-21 tablet 00:00: 00 furosemide 2020-0 No 1mg 20 mg 2-21 tablet 00:00: 00 losartan 50 2020-0 No 1mg mg tablet 2-21 00:00: 00 ropinirole 2020-0 No 1mg 0.5 mg 2-21 tablet 00:00: 00 duloxetine 2020-0 No 1mg 30 mg 2-21 capsule,del 00:00: ayed 00 release nystatin 2020-0 No 1unit/g 100,000 2-21 milad unit/gram 00:00: topical 00 powder carvedilol 2020-0 No 2mg 12.5 mg 2-21 tablet 00:00: 00 nystatin 2020-0 No 1unit/g 100,000 2-21 milad unit/gram 00:00: topical 00 powder carvedilol 2020-0 No 2mg 12.5 mg 2-21 tablet 00:00: 00 ezetimibe 2020-0 No 1mg 10 mg 2-21 tablet 00:00: 00 clopidogrel 2020-0 No 1mg 75 mg 2-21 tablet 00:00: 00 gabapentin 2020-0 No 1mg 800 mg 2-21 tablet 00:00: 00 furosemide 2020-0 No 1mg 20 mg 2-21 tablet 00:00: 00 losartan 50 2020-0 No 1mg mg tablet 2-21 00:00: 00 ropinirole 2020-0 No 1mg 0.5 mg 2-21 tablet 00:00: 00 duloxetine 2020-0 No 1mg 30 mg 2-21 capsule,del 00:00: ayed 00 release gabapentin 2020-0 No 3mg 800 mg 2-09 tablet 00:00: 00 fenofibrate 2020-0 No 1mg micronized 2-09 134 mg 00:00: capsule 00 gabapentin 2020-0 No 3mg 800 mg 2-09 tablet 00:00: 00 gabapentin 2020-0 No 3mg 800 mg 2-09 tablet 00:00: 00 fenofibrate 2020-0 No 1mg micronized 2-09 134 mg 00:00: capsule 00 fenofibrate 2020-0 No 1mg micronized 2-09 134 mg 00:00: capsule 00 gabapentin 2020-0 No 3mg 800 mg 2-09 tablet 00:00: 00 fenofibrate 2020-0 No 1mg micronized 2-09 134 mg 00:00: capsule 00 nystatin 2020-0 No 1unit/g 100,000 1-31 milad unit/gram 00:00: topical 00 powder nystatin 2020-0 No 1unit/g 100,000 1-31 milad unit/gram 00:00: topical 00 powder nystatin 2020-0 No 1unit/g 100,000 1-31 milad unit/gram 00:00: topical 00 powder nystatin 2020-0 No 1unit/g 100,000 1-31 milad unit/gram 00:00: topical 00 powder nystatin 2020-0 No 1unit/g 100,000 1-31 milad unit/gram 00:00: topical 00 powder nystatin 2020-0 No 1unit/g 100,000 1-31 milad unit/gram 00:00: topical 00 powder nystatin 2020-0 No 1unit/g 100,000 1-31 milad unit/gram 00:00: topical 00 powder nystatin 2020-0 No 1unit/g 100,000 1-31 milad unit/gram 00:00: topical 00 powder ropinirole 2020-0 No 1mg 0.5 mg 1-10 tablet 00:00: 00 ropinirole 2020-0 No 1mg 0.5 mg 1-10 tablet 00:00: 00 ropinirole 2020-0 No 1mg 0.5 mg 1-10 tablet 00:00: 00 ropinirole 2020-0 No 1mg 0.5 mg 1-10 tablet 00:00: 00 DIVALPROEX 2019-0 Yes TAKE 1 [facility] 125 mg EC 1-18 TABLET BY [facility]y o f tablet 00:00: MOUTH [place] 00 EVERY 12 Medical HOURS [facility] DIVALPROEX 2019-0 Yes TAKE 1 [facility] 125 mg EC 1-18 TABLET BY [facility]y o f tablet 00:00: MOUTH [place] 00 EVERY 12 Medical HOURS [facility] DIVALPROEX 2019-0 Yes TAKE 1 [facility] 125 mg EC 1-18 TABLET BY [facility]y o f tablet 00:00: MOUTH [place] 00 EVERY 12 Medical HOURS [facility] DIVALPROEX 2019-0 Yes TAKE 1 [facility] 125 mg EC 1-18 TABLET BY [facility]y o f tablet 00:00: MOUTH [place] 00 EVERY 12 Medical HOURS [facility] DIVALPROEX 2019-0 Yes TAKE 1 [facility] 125 mg EC 1-18 TABLET BY ity o f tablet 00:00: MOUTH [place] 00 EVERY 12 Medical HOURS [facility] DIVALPROEX 2019-0 Yes TAKE 1 [facility] 125 mg EC 1-18 TABLET BY [facility]y o f tablet 00:00: MOUTH [place] 00 EVERY 12 Medical HOURS Branch DIVALPROEX 2019-0 Yes TAKE 1 [facility] 125 mg EC 1-18 TABLET BY [facility]y o f tablet 00:00: MOUTH [place] 00 EVERY 12 Medical HOURS [facility] DIVALPROEX 2019-0 Yes TAKE 1 [facility] 125 mg EC 1-18 TABLET BY [facility]y o f tablet 00:00: MOUTH [place] 00 EVERY 12 Medical HOURS [facility] DIVALPROEX 2019-0 Yes TAKE 1 [facility] 125 mg EC 1-18 TABLET BY [facility]y o f tablet 00:00: MOUTH [place] 00 EVERY 12 Medical HOURS [facility] DIVALPROEX 2019-0 Yes TAKE 1 [facility] 125 mg EC 1-18 TABLET BY [facility] o f tablet 00:00: MOUTH [place] 00 EVERY 12 Medical HOURS [facility] DIVALPROEX 2019-0 Yes TAKE 1 [facility] 125 mg EC 1-18 TABLET BY [facility]y o f tablet 00:00: MOUTH [place] 00 EVERY 12 Medical HOURS [facility] DIVALPROEX 2019-0 Yes TAKE 1 [facility] rs 125 mg EC 1-18 TABLET BY [facility]y o f tablet 00:00: MOUTH [place] 00 EVERY 12 Medical HOURS [facility] DIVALPROEX 2019-0 Yes TAKE 1 [facility] rs 125 mg EC 1-18 TABLET BY [facility]y o f tablet 00:00: MOUTH [place] 00 EVERY 12 Medical HOURS [facility] DIVALPROEX 2019-0 Yes TAKE 1 [facility] 125 mg EC 1-18 TABLET BY [facility] o f tablet 00:00: MOUTH [place] 00 EVERY 12 Medical HOURS [facility] DIVALPROEX 2019-0 3- No TAKE 1 [facility] 125 mg EC 1-18 09-18 TABLET BY [facility] tablet 00:00: 00:00 MOUTH [place] 00 :00 EVERY 12 [facility] HOURS [facility] DIVALPROEX 2019-0 3- No TAKE 1 [facility] 125 mg EC 1-18 09-18 TABLET BY [facility] tablet 00:00: 00:00 MOUTH [place] 00 :00 EVERY 12 [facility] HOURS [facility] ARIPIPRAZOL 2018- Yes TAKE 1 [facility] E 2 mg 1-19 TABLET BY [facility] tablet 00:00: MOUTH [place] 00 EVERY DAY [facility] ARIPIPRAZOL 2018- Yes TAKE 1 [facility] E 2 mg 1-19 TABLET BY [facility] tablet 00:00: MOUTH [place] 00 EVERY DAY [facility] ARIPIPRAZOL 2018- Yes TAKE 1 [facility] E 2 mg 1-19 TABLET BY [facility] tablet 00:00: MOUTH [place] EVERY DAY [facility] ARIPIPRAZOL 2018- Yes TAKE 1 [facility] E 2 mg 1-19 TABLET BY [facility] tablet 00:00: MOUTH [place] 00 EVERY DAY [facility] ARIPIPRAZOL 2018- Yes TAKE 1 [facility] 2 mg 1-19 TABLET BY [facility] tablet 00:00: MOUTH [place] 00 EVERY DAY [facility] ARIPIPRAZOL 2017- Yes TAKE 1 [facility] 2 mg 1-19 TABLET BY [facility] tablet 00:00: MOUTH [place] 00 EVERY DAY [facility] ARIPIPRAZOL 2018- Yes TAKE 1 [facility] 2 mg 1-19 TABLET BY [facility] tablet 00:00: MOUTH [place] 00 EVERY DAY [facility] ARIPIPRAZOL 2018- Yes TAKE 1 [facility] 2 mg 1-19 TABLET BY [facility] tablet 00:00: MOUTH [place] 00 EVERY DAY [facility] ARIPIPRAZOL 2018- Yes TAKE 1 [facility] 2 mg 1-19 TABLET BY [facility] tablet 00:00: MOUTH [place] 00 EVERY DAY [facility] ARIPIPRAZOL 2018- Yes TAKE 1 [facility] 2 mg 1-19 TABLET BY [facility] tablet 00:00: MOUTH [place] 00 EVERY DAY [facility] ARIPIPRAZOL 2018- Yes TAKE 1 [facility] 2 mg 1-19 TABLET BY [facility] tablet 00:00: MOUTH [place] 00 EVERY DAY [facility] ARIPIPRAZOL 2018- Yes TAKE 1 [facility] 2 mg 1-19 TABLET BY [facility] tablet 00:00: MOUTH [place] 00 EVERY DAY [facility] ARIPIPRAZOL 2018- Yes TAKE 1 [facility] 2 mg 1-19 TABLET BY [facility] tablet 00:00: MOUTH [place] 00 EVERY DAY [facility] ARIPIPRAZOL 2018- Yes TAKE 1 [facility] 2 mg 1-19 TABLET BY [facility] tablet 00:00: MOUTH [place] 00 EVERY DAY [facility] ARIPIPRAZOL 2018-1 Yes TAKE 1 [facility] 2 mg 1-19 TABLET BY [facility] tablet 00:00: MOUTH [place] EVERY DAY [facility] ARIPIPRAZOL 2018-1 Yes TAKE 1 [facility] 2 mg 1-19 TABLET BY [facility] tablet 00:00: MOUTH [place] EVERY DAY [facility] ARIPIPRAZOL 2018-1 Yes TAKE 1 [facility] 2 mg 1-19 TABLET BY [facility] tablet 00:00: MOUTH [place] EVERY DAY [facility] ARIPIPRAZOL 2018-1 Yes TAKE 1 [facility] 2 mg 1-19 TABLET BY [facility] tablet 00:00: MOUTH [place] EVERY DAY [facility] ARIPIPRAZOL 2018-1 Yes TAKE 1 [facility] 2 mg 1-19 TABLET BY [facility] tablet 00:00: MOUTH [place] EVERY DAY [facility] ARIPIPRAZOL 2018-1 Yes TAKE 1 [facility] 2 mg 1-19 TABLET BY [facility] tablet 00:00: MOUTH [place] EVERY DAY [facility] ARIPIPRAZOL 2018-1 Yes TAKE 1 [facility] 2 mg 1-19 TABLET BY [facility] tablet 00:00: MOUTH [place] EVERY DAY [facility] clonazePAM 2018-0 Yes 1mg Take 1 [facility] 1 mg tablet 9-21 tablet by [facility] of 00:00: mouth at [place] [address] bedtime. Medical Branch clonazePAM 2018-0 Yes 1mg Take 1 [facility] 1 mg tablet 9-21 tablet by [facility] of 00:00: mouth at [place] [address] bedtime. [facility] clonazePAM 2018-0 Yes 1mg Take 1 [facility] 1 mg tablet 9-21 tablet by [facility] of 00:00: mouth at [place] [address] bedtime. [facility] clonazePAM 2018-0 Yes 1mg Take 1 [facility] 1 mg tablet 9-21 tablet by [facility] of 00:00: mouth at [place] [address] bedtime. [facility] clonazePAM 2018-0 Yes 1mg Take 1 [facility] 1 mg tablet 9-21 tablet by [facility] of 00:00: mouth at [place] [address] bedtime. [facility] clonazePAM 2018-0 Yes 1mg Take 1 [facility] 1 mg tablet 9-21 tablet by [facility] of 00:00: mouth at [place] [address] bedtime. Medical Branch clonazePAM 2018-0 Yes 1mg Take 1 [facility] 1 mg tablet 9-21 tablet by [facility] of 00:00: mouth at [place] [address] bedtime. [facility] clonazePAM 2018-0 Yes 1mg Take 1 [facility] 1 mg tablet 9-21 tablet by [facility] of 00:00: mouth at [place] bedtime. Medical Branch clonazePAM 2018-0 Yes 1mg Take 1 [facility] 1 mg tablet 9-21 tablet by [facility] of 00:00: mouth at [place] [address] bedtime. [facility] clonazePAM 2018-0 Yes 1mg Take 1 [facility] 1 mg tablet 9-21 tablet by [facility] of 00:00: mouth at [place] bedtime. [facility] Branch clonazePAM 2018-0 Yes 1mg Take 1 [facility] 1 mg tablet 9-21 tablet by [facility] of 00:00: mouth at [place] bedtime. [facility] clonazePAM 2018-0 Yes 1mg Take 1 [facility] 1 mg tablet 9-21 tablet by [facility] of 00:00: mouth at [place] [address] bedtime. [facility] clonazePAM 2018-0 Yes 1mg Take 1 [facility] 1 mg tablet 9-21 tablet by [facility] of 00:00: mouth at [place] [address] bedtime. [facility] clonazePAM 2018-0 Yes 1mg Take 1 [facility] 1 mg tablet 9-21 tablet by [facility] of 00:00: mouth at [place] [address] bedtime. [facility] clonazePAM 2018-0 Yes 1mg Take 1 [facility] 1 mg tablet 9-21 tablet by [facility] of 00:00: mouth at [place] [address] bedtime. [facility] clonazePAM 2018-0 Yes 1mg Take 1 [facility] 1 mg tablet 9-21 tablet by [facility] of 00:00: mouth at [place] [address] bedtime. [facility] clonazePAM 2018-0 Yes 1mg Take 1 [facility] 1 mg tablet 9-21 tablet by [facility] of 00:00: mouth at [place] [address] bedtime. [facility] clonazePAM 2018-0 Yes 1mg Take 1 [facility] 1 mg tablet 9-21 tablet by [facility] of 00:00: mouth at [place] [address] bedtime. [facility] clonazePAM 2018-0 Yes 1mg Take 1 [facility] 1 mg tablet 9-21 tablet by [facility] of 00:00: mouth at [place] [address] bedtime. [facility] clonazePAM 2018-0 Yes 1mg Take 1 [facility] 1 mg tablet 9-21 tablet by [facility] of 00:00: mouth at [place] [address] bedtime. [facility] clonazePAM 2018-0 Yes 1mg Take 1 [facility] 1 mg tablet 9-21 tablet by [facility] of 00:00: mouth at [place] 00 bedtime. [facility] BIOTIN ORAL 2018-0 Yes 2000mg Take 2,000 [facility] 9-18 mg by [facility] of 16:07: mouth [place] 23 daily. Medical Branch GABAPENTIN 20180 Yes 800mg Take 800 [facility] ORAL 9-18 mg by [facility] of 16:07: mouth 3 [place] 23 (three) Medical times Branch daily. metFORMIN 20180 Yes 1000mg Take 1,000 [facility] (GLUCOPHAGE 9-18 mg by it[facility] of ) 1,000 mg 16:07: mouth 2 [place] tablet 23 (two) Medical times Branch daily with meals. potassium 20180 Yes 20meq Take 20 [facility] ers chloride 9-18 mEq by ity of (K-DUR) 10 16:07: mouth [place] mEq CR 23 daily. Medical tablet Branch tolterodine 0 Yes 4mg Take 4 mg [facility] [place] (DETROL 9-18 by mouth ity o f [place]) 4 mg 24 16:07: daily. [place] hr capsule 23 [facility] ezetimibe 0 Yes 10mg Take 10 mg [facility] (ZETIA) 10 9-18 by mouth ity o f mg tablet 16:07: daily. [place] [id number] Medical Branch Fentanyl, 2017-0 Yes [facility] Bulk, 100 % 9-18 ity of Powd 16:07: [place] [address] Medical Branch insulin 0 Yes 15U inject 15 [facility] glargine 9-18 Units [facility] of (LANTUS) 16:07: [place] unit/mL 23 skin every Me dical injection morning. Branch insulin 0 Yes 25U inject 25 [facility] glargine 9-18 Units [facility] (LANTUS) 16:07: [place] 100 unit/mL 23 skin every Me dical injection evening. Branch BIOTIN ORAL 2017-0 Yes 2000mg Take 2,000 [facility] 9-18 mg by [facility] of 16:07: mouth [place] 23 daily. Medical Branch GABAPENTIN 2018-0 Yes 800mg Take 800 [facility] ORAL 9-18 mg by [facility] of 16:07: mouth 3 [place] 23 (three) Medical times Branch daily. metFORMIN 2018-0 Yes 1000mg Take 1,000 [facility] (GLUCOPHAGE 9-18 mg by [facility] of ) 1,000 mg 16:07: mouth 2 [place] tablet 23 (two) Medical times Branch daily with meals. potassium Yes 20meq Take 20 [facility] ers chloride 9-18 mEq by ity of (K-DUR) 10 16:07: mouth [place] mEq CR 23 daily. Medical tablet Branch tolterodine Yes 4mg Take 4 mg [facility] [place] (DETROL 9-18 by mouth [facility] [place]) 4 mg 24 16:07: daily. [place] hr capsule 23 [facility] ezetimibe Yes 10mg Take 10 mg [facility] (ZETIA) 10 9-18 by mouth ity o f mg tablet 16:07: daily. [address] Fentanyl, Yes [facility] Bulk, 100 % 9-18 ity of Powd 16:07: [address] insulin Yes 15U inject 15 [facility] glargine 9-18 Units [facility] of (LANTUS) 16:07: [place] 100 unit/mL 23 skin every Me dical injection morning. Branch insulin Yes 25U inject 25 [facility] glargine 9-18 Units [facility] of (LANTUS) 16:07: under the [place] 100 unit/mL 23 skin every Me dical injection evening. Branch BIOTIN ORAL Yes 2000mg Take 2,000 [facility] 9-18 mg by [facility] of 16:07: mouth [place] 23 daily. Medical Branch GABAPENTIN Yes 800mg Take 800 [facility] ORAL 9-18 mg by [facility] of 16:07: mouth 3 [place] 23 (three) Medical times Branch daily. metFORMIN Yes 1000mg Take 1,000 [facility] (GLUCOPHAGE 9-18 mg by [facility] of ) 1,000 mg 16:07: mouth 2 [place] tablet 23 (two) Medical times Branch daily with meals. potassium Yes 20meq Take 20 [facility] ers chloride 9-18 mEq by ity of (K-DUR) 10 16:07: mouth [place] mEq CR 23 daily. Medical tablet Branch tolterodine Yes 4mg Take 4 mg [facility] [place] (DETROL 9-18 by mouth ity o f [place]) 4 mg 24 16:07: daily. [place] hr capsule 23 [facility] ezetimibe 2018-0 Yes 10mg Take 10 mg [facility] (ZETIA) 10 9-18 by mouth ity o f mg tablet 16:07: daily. [place] [facility] Fentanyl, 2018-0 Yes [facility] Bulk, 100 % 9-18 ity of Powd 16:07: [place] [facility] insulin 2017-0 Yes 15U inject 15 [facility] glargine 9-18 Units [facility] (LANTUS) 16:07: [place] 100 unit/mL 23 skin every Me dical injection morning. Branch insulin 2018-0 Yes 25U inject 25 [facility] glargine 9-18 Units [facility] (LANTUS) 16:07: [place] 100 unit/mL 23 skin every Me dical injection evening. Branch rOPINIRole 2017-0 Yes .5mg Take 1 [facility] 0.5 mg 9-18 tablet by [facility] of tablet 00:00: mouth at [place] [address] bedtime. Medical Branch rOPINIRole 2018-0 Yes .5mg Take 1 [facility] 0.5 mg 9-18 tablet by [facility] of tablet 00:00: mouth at [place] [address] bedtime. Medical Branch rOPINIRole 2018-0 Yes .5mg Take 1 [facility] 0.5 mg 9-18 tablet by [facility] of tablet 00:00: mouth at [place] [address] bedtime. Medical Branch rOPINIRole 2018-0 Yes .5mg Take 1 [facility] 0.5 mg 9-18 tablet by [facility] of tablet 00:00: mouth at [place] [address] bedtime. Medical Branch rOPINIRole 2018-0 Yes .5mg Take 1 [facility] 0.5 mg 9-18 tablet by [facility] of tablet 00:00: mouth at [place] [address] bedtime. Medical Branch rOPINIRole 2018-0 Yes .5mg Take 1 [facility] 0.5 mg 9-18 tablet by [facility] of tablet 00:00: mouth at [place] [address] bedtime. Medical Branch rOPINIRole 2018-0 Yes .5mg Take 1 [facility] 0.5 mg 9-18 tablet by [facility] of tablet 00:00: mouth at [place] [address] bedtime. Medical Branch rOPINIRole 2018-0 Yes .5mg Take 1 [facility] 0.5 mg 9-18 tablet by [facility] of tablet 00:00: mouth at [place] [address] bedtime. Medical Branch rOPINIRole 2018-0 Yes .5mg Take 1 [facility] 0.5 mg 9-18 tablet by [facility] of tablet 00:00: mouth at [place] [address] bedtime. Medical Branch rOPINIRole 2018-0 Yes .5mg Take 1 [facility] 0.5 mg 9-18 tablet by [facility] of tablet 00:00: mouth at [place] [address] bedtime. Medical Branch rOPINIRole 2018-0 Yes .5mg Take 1 [facility] 0.5 mg 9-18 tablet by [facility] of tablet 00:00: mouth at [place] [address] bedtime. Medical Branch rOPINIRole 2018-0 Yes .5mg Take 1 [facility] 0.5 mg 9-18 tablet by [facility] of tablet 00:00: mouth at [place] [address] bedtime. Medical Branch rOPINIRole 2018-0 Yes .5mg Take 1 [facility] 0.5 mg 9-18 tablet by [facility] of tablet 00:00: mouth at [place] [address] bedtime. Medical Branch rOPINIRole 2018-0 Yes .5mg Take 1 [facility] 0.5 mg 9-18 tablet by [facility] of tablet 00:00: mouth at [place] [address] bedtime. Medical Branch rOPINIRole 2018-0 Yes .5mg Take 1 [facility] 0.5 mg 9-18 tablet by [facility] of tablet 00:00: mouth at [place] [address] bedtime. Medical Branch rOPINIRole 2018-0 Yes .5mg Take 1 [facility] 0.5 mg 9-18 tablet by [facility] of tablet 00:00: mouth at [place] [address] bedtime. Medical Branch rOPINIRole 2018-0 Yes .5mg Take 1 [facility] 0.5 mg 9-18 tablet by [facility] of tablet 00:00: mouth at [place] [address] bedtime. Medical Branch rOPINIRole 2018-0 Yes .5mg Take 1 [facility] 0.5 mg 9-18 tablet by [facility] of tablet 00:00: mouth at [place] [address] bedtime. Medical Branch rOPINIRole 2018-0 Yes .5mg Take 1 [facility] 0.5 mg 9-18 tablet by [facility] of tablet 00:00: mouth at [place] [address] bedtime. Medical Branch rOPINIRole 2018-0 Yes .5mg Take 1 [facility] 0.5 mg 9-18 tablet by [facility] of tablet 00:00: mouth at [place] [address] bedtime. Medical Branch rOPINIRole 2018-0 Yes .5mg Take 1 [facility] 0.5 mg 9-18 tablet by [facility] of tablet 00:00: mouth at [place] 00 bedtime. Medical Branch diphenoxyla 2016-05 Yes 1{tbl} Take 1 [facility] te-atropine 0-05 tablet by ity of (LOMOTIL) 00:00: mouth [place] 2.5-0.025 00 every 6 Medical mg per (six) Branch tablet hours as needed (diarrhea) . diphenoxyla 2016-05 Yes 1{tbl} Take 1 [facility] te-atropine 0-05 tablet by ity of (LOMOTIL) 00:00: mouth [place] 2.5-0.025 00 every 6 Medical mg per (six) Branch tablet hours as needed (diarrhea) . diphenoxyla 2016-05 Yes 1{tbl} Take 1 [facility] te-atropine 0-05 tablet by ity of (LOMOTIL) 00:00: mouth [place] 2.5-0.025 00 every 6 Medical mg per (six) Branch tablet hours as needed (diarrhea) . diphenoxyla 2016-05 Yes 1{tbl} Take 1 [facility] te-atropine 0-05 tablet by ity of (LOMOTIL) 00:00: mouth [place] 2.5-0.025 00 every 6 Medical mg per (six) Branch tablet hours as needed (diarrhea) . diphenoxyla 2016-05 Yes 1{tbl} Take 1 [facility] te-atropine 0-05 tablet by ity of (LOMOTIL) 00:00: mouth [place] 2.5-0.025 00 every 6 Medical mg per (six) Branch tablet hours as needed (diarrhea) . diphenoxyla 2016-05 Yes 1{tbl} Take 1 [facility] te-atropine 0-05 tablet by ity of (LOMOTIL) 00:00: mouth [place] 2.5-0.025 00 every 6 Medical mg per (six) Branch tablet hours as needed (diarrhea) . diphenoxyla 2016-05 Yes 1{tbl} Take 1 [facility] te-atropine 0-05 tablet by ity of (LOMOTIL) 00:00: mouth [place] 2.5-0.025 00 every 6 Medical mg per (six) Branch tablet hours as needed (diarrhea) . diphenoxyla 2016-05 Yes 1{tbl} Take 1 [facility] te-atropine 0-05 tablet by ity of (LOMOTIL) 00:00: mouth [place] 2.5-0.025 00 every 6 Medical mg per (six) Branch tablet hours as needed (diarrhea) . diphenoxyla 2016-05 Yes 1{tbl} Take 1 [facility] te-atropine 0-05 tablet by it[facility] of (LOMOTIL) 00:00: mouth [place] 2.5-0.025 00 every 6 Medical mg per (six) Branch tablet hours as needed (diarrhea) . diphenoxyla 2016-05 Yes 1{tbl} Take 1 [facility] te-atropine 0-05 tablet by it[facility] of (LOMOTIL) 00:00: mouth [place] 2.5-0.025 00 every 6 Medical mg per (six) Branch tablet hours as needed (diarrhea) . diphenoxyla 2016-05 Yes 1{tbl} Take 1 [facility] te-atropine 0-05 tablet by ity of (LOMOTIL) 00:00: mouth [place] 2.5-0.025 00 every 6 Medical mg per (six) Branch tablet hours as needed (diarrhea) . diphenoxyla 2016-05 Yes 1{tbl} Take 1 [facility] te-atropine 0-05 tablet by ity of (LOMOTIL) 00:00: mouth [place] 2.5-0.025 00 every 6 Medical mg per (six) Branch tablet hours as needed (diarrhea) . diphenoxyla 2016-05 Yes 1{tbl} Take 1 [facility] te-atropine 0-05 tablet by ity of (LOMOTIL) 00:00: mouth [place] 2.5-0.025 00 every 6 Medical mg per (six) Branch tablet hours as needed (diarrhea) . diphenoxyla 2016-05 Yes 1{tbl} Take 1 [facility] te-atropine 0-05 tablet by ity of (LOMOTIL) 00:00: mouth [place] 2.5-0.025 00 every 6 Medical mg per (six) Branch tablet hours as needed (diarrhea) . diphenoxyla 2016-05 Yes 1{tbl} Take 1 [facility] te-atropine 0-05 tablet by ity of (LOMOTIL) 00:00: mouth [place] 2.5-0.025 00 every 6 Medical mg per (six) Branch tablet hours as needed (diarrhea) . diphenoxyla 2016-05 Yes 1{tbl} Take 1 [facility] te-atropine 0-05 tablet by ity of (LOMOTIL) 00:00: mouth [place] 2.5-0.025 00 every 6 Medical mg per (six) Branch tablet hours as needed (diarrhea) . diphenoxyla 2016-05 Yes 1{tbl} Take 1 [facility] te-atropine 0-05 tablet by ity of (LOMOTIL) 00:00: mouth [place] 2.5-0.025 00 every 6 Medical mg per (six) Branch tablet hours as needed (diarrhea) . diphenoxyla 2016-05 Yes 1{tbl} Take 1 [facility] te-atropine 0-05 tablet by ity of (LOMOTIL) 00:00: mouth [place] 2.5-0.025 00 every 6 Medical mg per (six) Branch tablet hours as needed (diarrhea) . diphenoxyla 2016-05 Yes 1{tbl} Take 1 [facility] te-atropine 0-05 tablet by ity of (LOMOTIL) 00:00: mouth [place] 2.5-0.025 00 every 6 Medical mg per (six) Branch tablet hours as needed (diarrhea) . diphenoxyla 2016-05 Yes 1{tbl} Take 1 [facility] te-atropine 0-05 tablet by ity of (LOMOTIL) 00:00: mouth [place] 2.5-0.025 00 every 6 Medical mg per (six) Branch tablet hours as needed (diarrhea) . diphenoxyla 2016-05 Yes 1{tbl} Take 1 [facility] te-atropine 0-05 tablet by ity of (LOMOTIL) 00:00: mouth [place] 2.5-0.025 00 every 6 Medical mg per (six) Branch tablet hours as needed (diarrhea) . ipratropium 2016-05 Yes 3mL Inhale 3 [facility] -albuterol 0-02 mL every 4 ity of 0.5 mg-3 00:00: (four) [place] mg(2.5 mg 00 hours as Medica l base)/3 mL needed for [facility] nebulizer Wheezing. solution ipratropium 2016-05 Yes 3mL Inhale 3 [facility] -albuterol 0-02 mL every 4 ity of 0.5 mg-3 00:00: (four) [place] mg(2.5 mg 00 hours as Medica l base)/3 mL needed for Bra nch nebulizer Wheezing. solution ipratropium 2016-05 Yes 3mL Inhale 3 [facility] -albuterol 0-02 mL every 4 ity of 0.5 mg-3 00:00: (four) [place] mg(2.5 mg 00 hours as Medica l base)/3 mL needed for Bra nch nebulizer Wheezing. solution ipratropium 2016-05 Yes 3mL Inhale 3 [facility] -albuterol 0-02 mL every 4 ity of 0.5 mg-3 00:00: (four) [place] mg(2.5 mg 00 hours as Medica l base)/3 mL needed for Bra nch nebulizer Wheezing. solution ipratropium 2016-05 Yes 3mL Inhale 3 [facility] -albuterol 0-02 mL every 4 ity of 0.5 mg-3 00:00: (four) [place] mg(2.5 mg 00 hours as Medica l base)/3 mL needed for Bra nch nebulizer Wheezing. solution ipratropium 2016-05 Yes 3mL Inhale 3 [facility] -albuterol 0-02 mL every 4 ity of 0.5 mg-3 00:00: (four) [place] mg(2.5 mg 00 hours as Medica l base)/3 mL needed for Bra nch nebulizer Wheezing. solution ipratropium 2016-05 Yes 3mL Inhale 3 [facility] -albuterol 0-02 mL every 4 ity of 0.5 mg-3 00:00: (four) [place] mg(2.5 mg 00 hours as Medica l base)/3 mL needed for Bra nch nebulizer Wheezing. solution ipratropium 2016-05 Yes 3mL Inhale 3 [facility] -albuterol 0-02 mL every 4 ity of 0.5 mg-3 00:00: (four) [place] mg(2.5 mg 00 hours as Medica l base)/3 mL needed for Bra nch nebulizer Wheezing. solution ipratropium 2016-05 Yes 3mL Inhale 3 [facility] -albuterol 0-02 mL every 4 ity of 0.5 mg-3 00:00: (four) [place] mg(2.5 mg 00 hours as Medica l base)/3 mL needed for Bra nch nebulizer Wheezing. solution ipratropium 2016-05 Yes 3mL Inhale 3 [facility] -albuterol 0-02 mL every 4 ity of 0.5 mg-3 00:00: (four) [place] mg(2.5 mg 00 hours as Medica l base)/3 mL needed for Bra nch nebulizer Wheezing. solution ipratropium 2016-05 Yes 3mL Inhale 3 [facility] -albuterol 0-02 mL every 4 ity of 0.5 mg-3 00:00: (four) [place] mg(2.5 mg 00 hours as Medica l base)/3 mL needed for Bra nch nebulizer Wheezing. solution ipratropium 2016-05 Yes 3mL Inhale 3 [facility] -albuterol 0-02 mL every 4 ity of 0.5 mg-3 00:00: (four) [place] mg(2.5 mg 00 hours as Medica l base)/3 mL needed for Bra nch nebulizer Wheezing. solution ipratropium 2016-05 Yes 3mL Inhale 3 [facility] -albuterol 0-02 mL every 4 ity of 0.5 mg-3 00:00: (four) [place] mg(2.5 mg 00 hours as Medica l base)/3 mL needed for Bra nch nebulizer Wheezing. solution ipratropium 2016-05 Yes 3mL Inhale 3 [facility] -albuterol 0-02 mL every 4 ity of 0.5 mg-3 00:00: (four) [place] mg(2.5 mg 00 hours as Medica l base)/3 mL needed for Bra nch nebulizer Wheezing. solution ipratropium 2016-05 Yes 3mL Inhale 3 [facility] -albuterol 0-02 mL every 4 ity of 0.5 mg-3 00:00: (four) [place] mg(2.5 mg 00 hours as Medica l base)/3 mL needed for Bra nch nebulizer Wheezing. solution ipratropium 2016-05 Yes 3mL Inhale 3 [facility] [place] -albuterol 0-02 mL every 4 ity of 0.5 mg-3 00:00: (four) [place] mg(2.5 mg 00 hours as Medica l base)/3 mL needed for Bra nch nebulizer Wheezing. solution ipratropium 2016-05 Yes 3mL Inhale 3 [facility] -albuterol 0-02 mL every 4 ity of 0.5 mg-3 00:00: (four) [place] mg(2.5 mg 00 hours as Medica l base)/3 mL needed for Bra nch nebulizer Wheezing. solution ipratropium 2016-05 Yes 3mL Inhale 3 [facility] -albuterol 0-02 mL every 4 ity of 0.5 mg-3 00:00: (four) [place] mg(2.5 mg 00 hours as Medica l base)/3 mL needed for Bra nch nebulizer Wheezing. solution ipratropium 2016-05 Yes 3mL Inhale 3 [facility] [place] -albuterol 0-02 mL every 4 ity of 0.5 mg-3 00:00: (four) [place] mg(2.5 mg 00 hours as Medica l base)/3 mL needed for Bra nch nebulizer Wheezing. solution ipratropium 2016-05 Yes 3mL Inhale 3 [facility] -albuterol 0-02 mL every 4 ity of 0.5 mg-3 00:00: (four) [place] mg(2.5 mg 00 hours as Medica l base)/3 mL needed for Bra nch nebulizer Wheezing. solution ipratropium 2016-05 Yes 3mL Inhale 3 [facility] -albuterol 0-02 mL every 4 ity of 0.5 mg-3 00:00: (four) [place] mg(2.5 mg 00 hours as Medica l base)/3 mL needed for Bra nch nebulizer Wheezing. solution acetaminoph Yes 1{tbl} Take 1 [facility] en-codeine 6-07 tablet by ity of (TYLENOL 00:00: mouth [place] #3) 300-30 00 every 4 Medica l mg tablet (four) Branch hours as needed for Pain (scale 7-10). acetaminoph Yes 1{tbl} Take 1 [facility] en-codeine 6-07 tablet by ity of (TYLENOL 00:00: mouth [place] #3) 300-30 00 every 4 Medica l mg tablet (four) Branch hours as needed for Pain (scale 7-10). acetaminoph 2016-0 Yes 1{tbl} Take 1 [facility] [place] en-codeine 6-07 tablet by ity of (TYLENOL 00:00: mouth [place] #3) 300-30 00 every 4 Medica l mg tablet (four) Branch hours as needed for Pain (scale 7-10). acetaminoph 2015-0 Yes 1{tbl} Take 1 [facility] en-codeine 6-07 tablet by ity of (TYLENOL 00:00: mouth [place] #3) 300-30 00 every 4 Medica l mg tablet (four) Branch hours as needed for Pain (scale 7-10). acetaminoph 2015-0 Yes 1{tbl} Take 1 [facility] en-codeine 6-07 tablet by ity of (TYLENOL 00:00: mouth [place] #3) 300-30 00 every 4 Medica l mg tablet (four) Branch hours as needed for Pain (scale 7-10). acetaminoph Yes 1{tbl} Take 1 [facility] [place] en-codeine 6-07 tablet by ity of (TYLENOL 00:00: mouth [place] #3) 300-30 00 every 4 Medica l mg tablet (four) Branch hours as needed for Pain (scale 7-10). acetaminoph 0 Yes 1{tbl} Take 1 [facility] en-codeine 6-07 tablet by ity of (TYLENOL 00:00: mouth [place] #3) 300-30 00 every 4 Medica l mg tablet (four) Branch hours as needed for Pain (scale 7-10). acetaminoph 0 Yes 1{tbl} Take 1 [facility] en-codeine 6-07 tablet by ity of (TYLENOL 00:00: mouth [place] #3) 300-30 00 every 4 Medica l mg tablet (four) Branch hours as needed for Pain (scale 7-10). acetaminoph 2015-0 Yes 1{tbl} Take 1 [facility] [place] en-codeine 6-07 tablet by ity of (TYLENOL 00:00: mouth [place] #3) 300-30 00 every 4 Medica l mg tablet (four) Branch hours as needed for Pain (scale 7-10). acetaminoph 2015- Yes 1{tbl} Take 1 [facility] en-codeine 6-07 tablet by ity of (TYLENOL 00:00: mouth [place] #3) 300-30 00 every 4 Medica l mg tablet (four) Branch hours as needed for Pain (scale 7-10). acetaminoph 2015- Yes 1{tbl} Take 1 [facility] [place] en-codeine 6-07 tablet by ity of (TYLENOL 00:00: mouth [place] #3) 300-30 00 every 4 Medica l mg tablet (four) Branch hours as needed for Pain (scale 7-10). acetaminoph Yes 1{tbl} Take 1 [facility] en-codeine 6-07 tablet by ity of (TYLENOL 00:00: mouth [place] #3) 300-30 00 every 4 Medica l mg tablet (four) Branch hours as needed for Pain (scale 7-10). acetaminoph Yes 1{tbl} Take 1 [facility] [place] en-codeine 6-07 tablet by ity of (TYLENOL 00:00: mouth [place] #3) 300-30 00 every 4 Medica l mg tablet (four) Branch hours as needed for Pain (scale 7-10). acetaminoph Yes 1{tbl} Take 1 [facility] [place] en-codeine 6-07 tablet by ity of (TYLENOL 00:00: mouth [place] #3) 300-30 00 every 4 Medica l mg tablet (four) Branch hours as needed for Pain (scale 7-10). acetaminoph Yes 1{tbl} Take 1 [facility] [place] en-codeine 6-07 tablet by ity of (TYLENOL 00:00: mouth [place] #3) 300-30 00 every 4 Medica l mg tablet (four) Branch hours as needed for Pain (scale 7-10). acetaminoph Yes 1{tbl} Take 1 [facility] [place] en-codeine 6-07 tablet by ity of (TYLENOL 00:00: mouth [place] #3) 300-30 00 every 4 Medica l mg tablet (four) Branch hours as needed for Pain (scale 7-10). acetaminoph Yes 1{tbl} Take 1 [facility] [place] en-codeine 6-07 tablet by ity of (TYLENOL 00:00: mouth [place] #3) 300-30 00 every 4 Medica l mg tablet (four) Branch hours as needed for Pain (scale 7-10). acetaminoph 2016-0 Yes 1{tbl} Take 1 [facility] [place] en-codeine 6-07 tablet by ity of (TYLENOL 00:00: mouth [place] #3) 300-30 00 every 4 Medica l mg tablet (four) Branch hours as needed for Pain (scale 7-10). acetaminoph 2016-0 Yes 1{tbl} Take 1 [facility] [place] en-codeine 6-07 tablet by ity of (TYLENOL 00:00: mouth [place] #3) 300-30 00 every 4 Medica l mg tablet (four) Branch hours as needed for Pain (scale 7-10). acetaminoph 2016-0 Yes 1{tbl} Take 1 [facility] [place] en-codeine 6-07 tablet by ity of (TYLENOL 00:00: mouth [place] #3) 300-30 00 every 4 Medica l mg tablet (four) Branch hours as needed for Pain (scale 7-10). acetaminoph 2016-0 Yes 1{tbl} Take 1 [facility] en-codeine 6-07 tablet by ity of (TYLENOL 00:00: mouth [place] #3) 300-30 00 every 4 Medica l mg tablet (four) Branch hours as needed for Pain (scale 7-10). traMADOL 2016-0 Yes 50mg Take 1 [facility] (ULTRAM) 50 4-28 tablet by ity of mg tablet 00:00: mouth [place] 00 every 4 Medical (four) Branch hours as needed for Pain (scale 4-6). traMADOL 2016-0 Yes 50mg Take 1 [facility] (ULTRAM) 50 4-28 tablet by ity of mg tablet 00:00: mouth [place] 00 every 4 Medical (four) Branch hours as needed for Pain (scale 4-6). traMADOL 2016-0 Yes 50mg Take 1 [facility] (ULTRAM) 50 4-28 tablet by ity of mg tablet 00:00: mouth [place] 00 every 4 Medical (four) Branch hours as needed for Pain (scale 4-6). traMADOL 2016-0 Yes 50mg Take 1 [facility] (ULTRAM) 50 4-28 tablet by ity of mg tablet 00:00: mouth [place] 00 every 4 Medical (four) Branch hours as needed for Pain (scale 4-6). traMADOL 2016-0 Yes 50mg Take 1 [facility] (ULTRAM) 50 4-28 tablet by ity of mg tablet 00:00: mouth [place] 00 every 4 Medical (four) Branch hours as needed for Pain (scale 4-6). traMADOL 2016-0 Yes 50mg Take 1 [facility] (ULTRAM) 50 4-28 tablet by ity of mg tablet 00:00: mouth [place] 00 every 4 Medical (four) Branch hours as needed for Pain (scale 4-6). traMADOL 2016-0 Yes 50mg Take 1 [facility] (ULTRAM) 50 4-28 tablet by ity of mg tablet 00:00: mouth [place] 00 every 4 Medical (four) Branch hours as needed for Pain (scale 4-6). traMADOL 2016-0 Yes 50mg Take 1 [facility] (ULTRAM) 50 4-28 tablet by ity of mg tablet 00:00: mouth [place] 00 every 4 Medical (four) Branch hours as needed for Pain (scale 4-6). traMADOL 2016-0 Yes 50mg Take 1 [facility] (ULTRAM) 50 4-28 tablet by ity of mg tablet 00:00: mouth [place] 00 every 4 Medical (four) Branch hours as needed for Pain (scale 4-6). traMADOL 2016-0 Yes 50mg Take 1 [facility] (ULTRAM) 50 4-28 tablet by ity of mg tablet 00:00: mouth [place] 00 every 4 Medical (four) Branch hours as needed for Pain (scale 4-6). traMADOL 2016-0 Yes 50mg Take 1 [facility] (ULTRAM) 50 4-28 tablet by ity of mg tablet 00:00: mouth [place] 00 every 4 Medical (four) Branch hours as needed for Pain (scale 4-6). traMADOL 2016-0 Yes 50mg Take 1 [facility] (ULTRAM) 50 4-28 tablet by ity of mg tablet 00:00: mouth [place] 00 every 4 Medical (four) Branch hours as needed for Pain (scale 4-6). traMADOL 2016-0 Yes 50mg Take 1 [facility] (ULTRAM) 50 4-28 tablet by ity of mg tablet 00:00: mouth [place] 00 every 4 Medical (four) Branch hours as needed for Pain (scale 4-6). traMADOL 2016-0 Yes 50mg Take 1 [facility] (ULTRAM) 50 4-28 tablet by ity of mg tablet 00:00: mouth [place] 00 every 4 Medical (four) Branch hours as needed for Pain (scale 4-6). traMADOL 2016-0 Yes 50mg Take 1 Univers (ULTRAM) 50 4-28 tablet by ity of mg tablet 00:00: mouth [place] 00 every 4 Medical (four) Branch hours as needed for Pain (scale 4-6). traMADOL 2016-0 Yes 50mg Take 1 Univers (ULTRAM) 50 4-28 tablet by ity of mg tablet 00:00: mouth [place] 00 every 4 Medical (four) Branch hours as needed for Pain (scale 4-6). traMADOL 2016-0 Yes 50mg Take 1 Univers (ULTRAM) 50 4-28 tablet by ity of mg tablet 00:00: mouth [place] 00 every 4 Medical (four) Branch hours as needed for Pain (scale 4-6). traMADOL 2016-0 Yes 50mg Take 1 Univers (ULTRAM) 50 4-28 tablet by ity of mg tablet 00:00: mouth [place] 00 every 4 Medical (four) Branch hours as needed for Pain (scale 4-6). traMADOL 2016-0 Yes 50mg Take 1 Univers (ULTRAM) 50 4-28 tablet by ity of mg tablet 00:00: mouth [place] 00 every 4 Medical (four) Branch hours as needed for Pain (scale 4-6). traMADOL 2016-0 Yes 50mg Take 1 Univers (ULTRAM) 50 4-28 tablet by ity of mg tablet 00:00: mouth [place] 00 every 4 Medical (four) Branch hours as needed for Pain (scale 4-6). traMADOL 2016-0 Yes 50mg Take 1 Univers (ULTRAM) 50 4-28 tablet by ity of mg tablet 00:00: mouth [place] 00 every 4 Medical (four) Branch hours as needed for Pain (scale 4-6). carvedilol 2016-0 Yes 6.25mg Take 6.25 Univers (COREG) 4-09 mg by ity of 6.25 mg 00:00: mouth 2 [place] tablet 00 (two) Medical times Branch daily with meals. carvedilol 2016-0 Yes 6.25mg Take 6.25 Univers (COREG) 4-09 mg by ity of 6.25 mg 00:00: mouth 2 [place] tablet 00 (two) Medical times Branch daily with meals. carvediloL 2016-0 Yes 6.25mg Take 1 Uni vers 6.25 mg 4-09 tablet by ity of tablet 00:00: mouth in [place] 00 the Medical morning Branch and 1 tablet in the evening. Take with meals. carvediloL 2016-0 Yes 6.25mg Take 1 Uni vers 6.25 mg 4-09 tablet by ity of tablet 00:00: mouth in [place] 00 the Medical morning Branch and 1 tablet in the evening. Take with meals. carvediloL 2015-0 Yes 6.25mg Take 1 Uni vers 6.25 mg 4-09 tablet by ity of tablet 00:00: mouth in [place] 00 the Medical morning Branch and 1 tablet in the evening. Take with meals. carvediloL 2015-0 Yes 6.25mg Take 1 Uni vers 6.25 mg 4-09 tablet by ity of tablet 00:00: mouth in [place] 00 the Medical morning Branch and 1 tablet in the evening. Take with meals. carvediloL 2015-0 Yes 6.25mg Take 1 Uni vers 6.25 mg 4-09 tablet by ity of tablet 00:00: mouth in [place] 00 the Medical morning Branch and 1 tablet in the evening. Take with meals. carvediloL 2015-0 Yes 6.25mg Take 1 Uni vers 6.25 mg 4-09 tablet by ity of tablet 00:00: mouth in [place] 00 the Medical morning Branch and 1 tablet in the evening. Take with meals. carvediloL 2015-0 Yes 6.25mg Take 1 Uni vers 6.25 mg 4-09 tablet by ity of tablet 00:00: mouth in [place] 00 the Medical morning Branch and 1 tablet in the evening. Take with meals. carvedilol 2015-0 Yes 6.25mg Take 6.25 Univers (COREG) 4-09 mg by ity of 6.25 mg 00:00: mouth 2 [place] tablet 00 (two) Medical times [place] daily with meals. carvedilol 2016-0 Yes 6.25mg Take 6.25 Univers (COREG) 4-09 mg by ity of 6.25 mg 00:00: mouth 2 [place] tablet 00 (two) Medical times [place] daily with meals. carvedilol 2015-0 Yes 6.25mg Take 6.25 Univers (COREG) 4-09 mg by ity of 6.25 mg 00:00: mouth 2 [place] tablet 00 (two) Medical times [place] daily with meals. carvedilol 2016-0 Yes 6.25mg Take 6.25 Univers (COREG) 4-09 mg by ity of 6.25 mg 00:00: mouth 2 [place] tablet 00 (two) Medical times Branch daily with meals. carvedilol Yes 6.25mg Take 6.25 Univers (COREG) 4-09 mg by ity of 6.25 mg 00:00: mouth 2 [place] tablet 00 (two) Medical times Branch daily with meals. carvedilol Yes 6.25mg Take 6.25 Univers (COREG) 4-09 mg by ity of 6.25 mg 00:00: mouth 2 [place] tablet 00 (two) Medical times Branch daily with meals. carvedilol Yes 6.25mg Take 6.25 Univers (COREG) 4-09 mg by ity of 6.25 mg 00:00: mouth 2 [place] tablet 00 (two) Medical times Branch daily with meals. carvedilol Yes 6.25mg Take 6.25 Univers (COREG) 4-09 mg by ity of 6.25 mg 00:00: mouth 2 [place] tablet 00 (two) Medical times Branch daily with meals. carvedilol Yes 6.25mg Take 6.25 Univers (COREG) 4-09 mg by ity of 6.25 mg 00:00: mouth 2 [place] tablet 00 (two) Medical times Branch daily with meals. carvedilol Yes 6.25mg Take 6.25 Univers (COREG) 4-09 mg by ity of 6.25 mg 00:00: mouth 2 [place] tablet 00 (two) Medical times Branch daily with meals. carvedilol Yes 6.25mg Take 6.25 Univers (COREG) 4-09 mg by ity of 6.25 mg 00:00: mouth 2 [place] tablet 00 (two) Medical times Branch daily with meals. carvedilol Yes 6.25mg Take 6.25 Univers (COREG) 4-09 mg by ity of 6.25 mg 00:00: mouth 2 [place] tablet 00 (two) Medical times Branch daily with meals. furosemide Yes 20mg Take 20 mg U nivers (LASIX) 20 3-15 by mouth ity o f mg tablet 00:00: daily. [place] [facility] furosemide Yes 20mg Take 20 mg U nivers (LASIX) 20 3-15 by mouth ity o f mg tablet 00:00: daily. [place] [facility] furosemide Yes 20mg Take 20 mg U nivers (LASIX) 20 3-15 by mouth ity o f mg tablet 00:00: daily. [place] [facility] furosemide Yes 20mg Take 20 mg U nivers (LASIX) 20 3-15 by mouth ity o f mg tablet 00:00: daily. [place] [facility] furosemide Yes 20mg Take 20 mg U nivers (LASIX) 20 3-15 by mouth ity o f mg tablet 00:00: daily. [place] [facility] furosemide 2023- No 20mg Take 20 mg Univers (LASIX) 20 3-15 04-22 by mouth ity of mg tablet 00:00: 00:00 daily. [place] 00 : Medical Branch ACCU-CHEK 2015-0 Yes Univers NYA PLUS 3-12 ity of TEST STRP 00:00: [facility] Medical Branch ACCU-CHEK 2015-0 Yes Univers NYA PLUS 3-12 ity of TEST STRP 00:00: Medical Branch ACCU-CHEK 2015-0 Yes Univers NYA PLUS 3-12 ity of TEST STRP 00:00: Medical Branch ACCU-CHEK 2016-0 Yes Univers [place]A PLUS 3-12 ity of TEST STRP 00:00: Medical Branch ACCU-CHEK 2016-0 Yes Univers [place]A PLUS 3-12 ity of TEST STRP 00:00: Medical Branch ACCU-CHEK 2016-0 Yes Univers [place]A PLUS 3-12 ity of TEST STRP 00:00: Medical Branch ACCU-CHEK 2016-0 Yes [facility]A PLUS 3-12 ity of TEST STRP 00:00: Medical Branch ACCU-CHEK 2016-0 Yes [facility] [place]A PLUS 3-12 ity of TEST STRP 00:00: Medical Branch ACCU-CHEK 2015-0 Yes Univers NYA PLUS 3-12 ity of TEST STRP 00:00: Medical Branch ACCU-CHEK 2015-0 Yes [facility] NYA PLUS 3-12 ity of TEST STRP 00:00: Medical Branch ACCU-CHEK 2016-0 Yes Univers NYA PLUS 3-12 ity of TEST STRP 00:00: Medical Branch ACCU-CHEK 2016-0 Yes Univers [place]A PLUS 3-12 ity of TEST STRP 00:00: [facility] Medical Branch ACCU-CHEK 2016-0 Yes Univers NYA PLUS 3-12 ity of TEST STRP 00:00: [facility] Medical Branch ACCU-CHEK 2016-0 Yes Univers NYA PLUS 3-12 ity of TEST STRP 00:00: [facility] Medical Branch ACCU-CHEK 2016-0 Yes Univers NYA PLUS 3-12 ity of TEST STRP 00:00: [facility] Medical Branch ACCU-CHEK 2016-0 Yes Univers NYA PLUS 3-12 ity of TEST STRP 00:00: [facility] Medical Branch ACCU-CHEK 2015-0 Yes Univers NYA PLUS 3-12 ity of TEST STRP 00:00: [facility] Medical Branch ACCU-CHEK 2016-0 Yes Univers NYA PLUS 3-12 ity of TEST STRP 00:00: [facility] Medical Branch ACCU-CHEK 2016-0 Yes Univers NYA PLUS 3-12 ity of TEST STRP 00:00: [facility] Medical Branch ACCU-CHEK 2016-0 Yes Univers NYA PLUS 3-12 ity of TEST STRP 00:00: [facility] Medical Branch ACCU-CHEK 2016-0 Yes Univers NYA PLUS 3-12 ity of TEST STRP 00:00: [place] [facility] Medical Branch clopidogrel 2016-0 Yes 75mg Take 75 mg Univers (PLAVIX) 75 2-08 by mouth ity of mg tablet 00:00: daily. [place] [facility] Branch clopidogrel 0 Yes 75mg Take 75 mg Univers (PLAVIX) 75 2-08 by mouth ity of mg tablet 00:00: daily. [place] [facility] Branch clopidogrel 2016-0 Yes 75mg Take 75 mg Univers (PLAVIX) 75 2-08 by mouth ity of mg tablet 00:00: daily. [place] [facility] Branch clopidogrel 2015-0 Yes 75mg Take 75 mg Univers (PLAVIX) 75 2-08 by mouth ity of mg tablet 00:00: daily. [place] [facility] Branch clopidogrel 0 Yes 75mg Take 75 mg Univers (PLAVIX) 75 2-08 by mouth ity of mg tablet 00:00: daily. [address] clopidogrel 2016-0 Yes 75mg Take 75 mg Univers (PLAVIX) 75 2-08 by mouth ity of mg tablet 00:00: daily. [address] clopidogrel 2016-0 Yes 75mg Take 75 mg Univers (PLAVIX) 75 2-08 by mouth ity of mg tablet 00:00: daily. [address] clopidogrel 2016-0 Yes 75mg Take 75 mg Univers (PLAVIX) 75 2-08 by mouth ity of mg tablet 00:00: daily. [address] clopidogrel 2016-0 Yes 75mg Take 75 mg Univers (PLAVIX) 75 2-08 by mouth ity of mg tablet 00:00: daily. [address] clopidogrel 2016-0 Yes 75mg Take 75 mg Univers (PLAVIX) 75 2-08 by mouth ity of mg tablet 00:00: daily. [address] clopidogrel 2016-0 Yes 75mg Take 75 mg Univers (PLAVIX) 75 2-08 by mouth ity of mg tablet 00:00: daily. [address] clopidogrel 2016-0 Yes 75mg Take 75 mg Univers (PLAVIX) 75 2-08 by mouth ity of mg tablet 00:00: daily. [address] clopidogrel 2016-0 3- No 75mg Take 75 mg Univers (PLAVIX) 75 2-08 06-17 by mouth ity of mg tablet 00:00: 00:00 daily. [place] 00 00 [facility] Immunizations Ordered Filled Date Status Comments Source Immunization Name Immunization Name influenza, seasonal 2022-02-18 Completed vaccine, 00:00:00 quadrivalent, adjuvanted, .5mL dose, preservative-free influenza, seasonal 2022-02-18 Completed vaccine, 00:00:00 quadrivalent, adjuvanted, .5mL dose, preservative-free influenza, 2020-08-15 Completed high-dose, 00:00:00 quadrivalent influenza, 2020-08-15 Completed high-dose, 00:00:00 quadrivalent influenza, 2020-08-15 Completed high-dose, 00:00:00 quadrivalent influenza, 2020-08-15 Completed high-dose, 00:00:00 quadrivalent Moderna COVID-19 2020-07-14 Completed Vaccine 00:00:00 Moderna COVID-19 2020-07-14 Completed Vaccine 00:00:00 Moderna COVID-19 2020-07-14 Completed Vaccine 00:00:00 Moderna COVID-19 2020-07-14 Completed Vaccine 00:00:00 Moderna COVID-19 2020-06-16 Completed Vaccine 00:00:00 Moderna COVID-19 2020-06-16 Completed Vaccine 00:00:00 Moderna COVID-19 2020-06-16 Completed Vaccine 00:00:00 Moderna COVID-19 2020-06-16 Completed Vaccine 00:00:00 Influenza High Dose 2017-02-16 Completed Unive rsity of 00:00:00 [facility] Influenza High Dose 2017-02-16 Completed Unive rsity of 00:00:00 [facility] Influenza High Dose 2017-02-16 Completed Unive rsity of 00:00:00 [facility] Influenza High Dose 2017-02-16 Completed Unive rsity of 00:00:00 [facility] Influenza High Dose 2017-02-16 Completed Unive rsity of 00:00:00 [facility] Influenza High Dose 2017-02-16 Completed Unive rsity of 00:00:00 [facility] Influenza High Dose 2017-02-16 Completed Unive rsity of 00:00:00 [facility] Influenza High Dose 2017-02-16 Completed Unive rsity of 00:00:00 [facility] Influenza High Dose 2017-02-16 Completed Unive rsity of 00:00:00 [facility] Influenza High Dose 2017-02-16 Completed Unive rsity of 00:00:00 [facility] Influenza High Dose 2017-02-16 Completed Unive rsity of 00:00:00 [facility] Influenza High Dose 2017-02-16 Completed Unive rsity of 00:00:00 [facility] Influenza High Dose 2017-02-16 Completed Unive rsity of 00:00:00 [facility] Influenza High Dose 2017-02-16 Completed Unive rsity of 00:00:00 [facility] TD, NOS 2016-11-27 Completed University of 00:00:00 [facility] TD, NOS 2016-11-27 Completed University of 00:00:00 [facility] Td 2016-11-27 Completed University of 00:00:00 [place] [facility] TD, NOS 2016-11-27 Completed University of 00:00:00 [place] [facility] TD, NOS 2016-11-27 Completed University of 00:00:00 [place] [facility] TD, NOS 2016-11-27 Completed University of 00:00:00 [place] [facility] TD, NOS 2016-11-27 Completed University of 00:00:00 [place] [facility] TD, NOS 2016-11-27 Completed University of 00:00:00 [place] [facility] TD, NOS 2016-11-27 Completed University of 00:00:00 [place] [facility] TD, NOS 2016-11-27 Completed University of 00:00:00 [place] [facility] TD, NOS 2016-11-27 Completed University of 00:00:00 [place] [facility] TD, NOS 2016-11-27 Completed University of 00:00:00 [place] [facility] TD, NOS 2016-11-27 Completed University of 00:00:00 [place] [facility] TD, NOS 2016-11-27 Completed University of 00:00:00 [facility] Pneumococcal 2007-05-18 Completed conjugate P 00:00:00 Pneumococcal 2007-05-18 Completed conjugate P 00:00:00 Pneumococcal 2007-05-18 Completed conjugate P 00:00:00 Pneumococcal 2007-05-18 Completed conjugate P 00:00:00 TD, NOS Unknown Completed [facility] Influenza High Dose Unknown Completed [facility] TD, NOS Unknown Completed [facility] Influenza High Dose Unknown Completed [facility] TD, NOS Unknown Completed [facility] Influenza High Dose Unknown Completed [facility] TD, NOS Unknown Completed [facility] Influenza High Dose Unknown Completed [facility] TD, NOS Unknown Completed [facility] Influenza High Dose Unknown Completed [facility] TD, NOS Unknown Completed [facility] Influenza High Dose Unknown Completed [facility] TD, NOS Unknown Completed [facility] Influenza High Dose Unknown Completed [facility] Vital Signs Vital Name Observation Time Observation Value Comments Source Systolic blood 2023-02-18 16:30:00 111 mm[Hg] Univer sity of pressure [facility] Diastolic blood 2023-02-18 16:30:00 57 mm[Hg] Unive rsity of [facility] Heart rate 2023-02-18 16:30:00 76 /min [facility] [place] [facility] Body temperature 2023-02-18 16:30:00 35.94 Gloria [facility] [place] [facility] Respiratory rate 2023-02-18 16:30:00 18 /min Univ [facility] [place] [facility] Oxygen saturation in 2023-02-18 16:30:00 92 /min University of Arterial blood by [facility] Pulse oximetry Branch Body weight 2023-02-18 08:02:00 80.468 kg [facility] [place] [facility] BMI 2023-02-18 08:02:00 28.65 kg/m2 [facility] [place] [facility] Body height 2023-02-03 03:35:00 167.6 cm [facility] [place] [facility] Systolic blood 2022-11-07 16:42:00 106 mm[Hg] Univer sity of pressure [place] [facility] Diastolic blood 2022-11-07 16:42:00 54 mm[Hg] Unive rsity of pressure [place] [facility] Heart rate 2022-11-07 16:42:00 80 /min [facility] [place] [facility] Body temperature 2022-11-07 16:42:00 36.44 Gloria [facility] [place] [facility] Respiratory rate 2022-11-07 16:42:00 20 /min Univ ers[facility] [place] [facility] Oxygen saturation in 2022-11-07 16:42:00 94 /min University of Arterial blood by [facility] Pulse oximetry Branch Body height 2022-10-26 07:45:00 167.6 cm [facility] [place] [facility] Body weight 2022-10-26 07:45:00 81.647 kg [facility] [place] [facility] BMI 2022-10-26 07:45:00 29.05 kg/m2 [facility] [place] [facility] Systolic blood 2022-10-31 12:26:00 125 mm[Hg] Univer sity of pressure [place] [facility] Diastolic blood 2022-10-31 12:26:00 55 mm[Hg] Unive rsity of pressure [place] [facility] Heart rate 2022-10-31 12:26:00 68 /min [facility] [place] [facility] Body temperature 2022-10-31 12:26:00 36.56 Gloria [facility] [place] [facility] Respiratory rate 2022-10-31 12:26:00 17 /min Univ ers[facility] [place] [facility] Oxygen saturation in 2022-10-31 12:26:00 93 /min [facility] of Arterial blood by [place] [facility] Pulse oximetry Branch Body height 2022-10-26 07:45:00 167.6 cm [facility] [place] [facility] Body weight 2022-10-26 07:45:00 81.647 kg [facility] [place] [facility] BMI 2022-10-26 07:45:00 29.05 kg/m2 [facility] [place] [facility] Systolic blood 2022-10-28 18:30:00 120 mm[Hg] Univer sity of pressure [place] [facility] Diastolic blood 2022-10-28 18:30:00 58 mm[Hg] Unive rsity of pressure [place] [facility] Heart rate 2022-10-28 18:30:00 64 /min [facility] [place] [facility] Respiratory rate 2022-10-28 18:30:00 17 /min [facility] [place] [facility] Oxygen saturation in 2022-10-28 18:30:00 94 /min [facility] of Arterial blood by [place] [facility] Pulse oximetry Branch Body temperature 2022-10-28 13:00:00 36.39 Gloria [facility] [place] [facility] Body height 2022-10-26 07:45:00 167.6 cm [facility] [place] [facility] Body weight 2022-10-26 07:45:00 81.647 kg [facility] [place] [facility] BMI 2022-10-26 07:45:00 29.05 kg/m2 [facility] [place] [facility] Systolic blood 2022-09-06 20:21:00 130 mm[Hg] Univer sity of pressure [place] [facility] Diastolic blood 2022-09-06 20:21:00 74 mm[Hg] Unive rsity of pressure [place] [facility] Heart rate 2022-09-06 20:21:00 88 /min [facility] [place] [facility] Body temperature 2022-09-06 20:21:00 36.78 Gloria [facility] [place] [facility] Respiratory rate 2022-09-06 20:21:00 18 /min [facility] [place] [facility] Oxygen saturation in 2022-09-06 20:21:00 98 /min [facility] of Arterial blood by [facility] Pulse oximetry Branch Body height 2022-09-03 02:32:00 160 cm [facility] [place] [facility] Body weight 2022-09-03 02:32:00 85.548 kg [facility] [place] [facility] BMI 2022-09-03 02:32:00 33.41 kg/m2 [facility] [place] [facility] Systolic blood 2022-05-27 22:12:00 161 mm[Hg] Univer sity of pressure [place] [facility] Diastolic blood 2022-05-27 22:12:00 82 mm[Hg] Unive rsity of pressure [place] [facility] Heart rate 2022-05-27 22:12:00 85 /min [facility] [place] [facility] Body height 2022-05-27 22:12:00 160 cm [facility] [place] [facility] Body weight 2022-05-27 22:12:00 86.183 kg [facility] [place] [facility] BMI 2022-05-27 22:12:00 33.66 kg/m2 [facility] [place] [facility] Oxygen saturation in 2022-05-27 22:12:00 93 /min University of Arterial blood by [place] [facility] Pulse oximetry Branch Systolic blood 2022-01-31 21:53:00 128 mm[Hg] Univer sity of pressure [place] [facility] Diastolic blood 2022-01-31 21:53:00 62 mm[Hg] Unive rsity of pressure [place] [facility] Heart rate 2022-01-31 21:53:00 84 /min [facility] [place] [facility] Body temperature 2022-01-31 21:53:00 36.39 Gloria [facility] [place] [facility] Respiratory rate 2022-01-31 21:53:00 18 /min [facility] [place] [facility] Body height 2022-01-31 21:53:00 167.6 cm [facility] [place] [facility] Body weight 2022-01-31 21:53:00 84.851 kg [facility] [place] [facility] BMI 2022-01-31 21:53:00 30.19 kg/m2 [facility] [place] [facility] Oxygen saturation in 2022-01-31 21:53:00 95 /min University of Arterial blood by [facility] Pulse oximetry Branch Systolic blood 2023-02-06 16:48:00 181 mm[Hg] Univer sity of pressure [place] [facility] Diastolic blood 2023-02-06 16:48:00 125 mm[Hg] Unive rsity of pressure [facility] Heart rate 2023-02-06 16:48:00 100 /min [facility] Respiratory rate 2023-02-06 16:48:00 14 /min [facility] Oxygen saturation in 2023-02-06 16:48:00 95 /min University Arterial blood by [facility] Pulse oximetry Branch Body temperature 2023-02-06 16:00:00 36.17 [facility] 2023-02-05 09:00:00 96.1 kg [facility] BMI 2023-02-05 09:00:00 34.21 kg/m2 [facility] Body height 2023-02-03 03:35:00 167.6 cm [facility] BP Systolic 2022-04-03 13:31:00 130 mm[Hg] BP Diastolic 2022-04-03 13:31:00 75 mm[Hg] Weight Measured 2022-04-03 13:31:00 190.21 pounds Height Measured 2022-04-03 13:31:00 65.00 inches Body Temperature 2022-04-03 13:31:00 97.30 degrees Heart Rate 2022-04-03 13:31:00 69.00 /min Respiratory Rate 2022-04-03 13:31:00 BP Systolic 2022-02-18 16:40:00 141 mm[Hg] BP Diastolic 2022-02-18 16:40:00 66 mm[Hg] Weight Measured 2022-02-18 16:40:00 190.21 pounds Height Measured 2022-02-18 16:40:00 65.00 inches Body Temperature 2022-02-18 16:40:00 98.00 degrees Heart Rate 2022-02-18 16:40:00 91.00 /min Respiratory Rate 2022-02-18 16:40:00 16.00 /min BP Systolic 2021-02-28 10:18:00 BP Diastolic 2021-02-28 10:18:00 Weight Measured 2021-02-28 10:18:00 183.00 pounds Height Measured 2021-02-28 10:18:00 65.00 inches Body Temperature 2021-02-28 10:18:00 Heart Rate 2021-02-28 10:18:00 Respiratory Rate 2021-02-28 10:18:00 BP Systolic 2020-12-25 17:03:00 123 mm[Hg] BP Diastolic 2020-12-25 17:03:00 53 mm[Hg] Weight Measured 2020-12-25 17:03:00 183.00 pounds Height Measured 2020-12-25 17:03:00 65.00 inches Body Temperature 2020-12-25 17:03:00 97.70 degrees Heart Rate 2020-12-25 17:03:00 86.00 /min Respiratory Rate 2020-12-25 17:03:00 BP Systolic 2020-08-15 16:24:00 121 mm[Hg] BP Diastolic 2020-08-15 16:24:00 52 mm[Hg] Weight Measured 2020-08-15 16:24:00 195.20 pounds Height Measured 2020-08-15 16:24:00 65.00 inches Body Temperature 2020-08-15 16:24:00 97.50 degrees Heart Rate 2020-08-15 16:24:00 82.00 /min Respiratory Rate 2020-08-15 16:24:00 Procedures Procedure Date / Time Performing Clinician Source Performed POCT GLUCOSE (AUTOMATED) 2023-02-18 17:04:00 [facility] POCT GLUCOSE (AUTOMATED) 2023-02-18 13:07:00 u [facility] POCT GLUCOSE (AUTOMATED) 2023-02-18 02:25:00 Abu [facility] POCT GLUCOSE (AUTOMATED) 2023-02-17 21:57:00 Abu [facility] POCT GLUCOSE (AUTOMATED) 2023-02-17 16:33:00 Abu [facility] POCT GLUCOSE (AUTOMATED) 2023-02-17 12:43:00 u [facility] POCT GLUCOSE (AUTOMATED) 2023-02-17 02:02:00 Abu [facility] POCT GLUCOSE (AUTOMATED) 2023-02-16 22:05:00 Abu [facility], [facility] POCT GLUCOSE (AUTOMATED) 2023-02-16 16:32:00 Abu [facility], [facility] POCT GLUCOSE (AUTOMATED) 2023-02-16 14:05:00 Abu [facility], [facility] POCT GLUCOSE (AUTOMATED) 2023-02-16 11:28:00 Abu [facility], [facility] POCT GLUCOSE (AUTOMATED) 2023-02-16 05:16:00 Abu [facility], [facility] POCT GLUCOSE (AUTOMATED) 2023-02-16 01:27:00 Abu [facility], [facility] POCT GLUCOSE (AUTOMATED) 2023-02-15 22:30:00 Abu [facility], [facility] POCT GLUCOSE (AUTOMATED) 2023-02-15 16:56:00 Abu [facility] POCT GLUCOSE (AUTOMATED) 2023-02-15 11:06:00 Abu [facility] BASIC METABOLIC PANEL (NA, 2023-02-15 09:15:00 Ana Paula Berry [facility] K, CL, CO2, GLUCOSE, BUN, Medica l Branch CREATININE, CA) CBC WITH DIFF 2023-02-15 09:15:00 [facility] N-TERMINAL PRO-BNP 2023-02-15 09:15:00 Angel Arevalo [facility] POCT GLUCOSE (AUTOMATED) 2023-02-15 05:15:00 Abu [facility], [facility] POCT GLUCOSE (AUTOMATED) 2023-02-15 01:02:00 Abu [facility], [facility] POCT GLUCOSE (AUTOMATED) 2023-02-14 21:51:00 Abu [facility] POCT GLUCOSE (AUTOMATED) 2023-02-14 16:20:00 Abu [facility] POCT GLUCOSE (AUTOMATED) 2023-02-14 12:00:00 Abu [facility] PHOSPHORUS 2023-02-14 08:44:00 Jamal [facility] MAGNESIUM 2023-02-14 08:44:00 Jamal [facility] BASIC METABOLIC PANEL (NA, 2023-02-14 08:44:00 Webber [facility] K, CL, CO2, GLUCOSE, BUN, Medica l Branch CREATININE, CA) CBC WITH DIFF 2023-02-14 08:44:00 [facility]) 2023-02-14 08:33:00 Abu [facility] POCT GLUCOSE (AUTOMATED) 2023-02-14 04:53:00 Abu [facility] POCT GLUCOSE (AUTOMATED) 2023-02-14 02:11:00 Abu [facility] POCT GLUCOSE (AUTOMATED) 2023-02-13 21:59:00 Abu [facility] POCT GLUCOSE (AUTOMATED) 2023-02-13 16:49:00 Abu [facility] POCT GLUCOSE (AUTOMATED) 2023-02-13 12:21:00 u Agnes [facility] PHOSPHORUS 2023-02-13 09:59:00 Dalia [facility] MAGNESIUM 2023-02-13 09:59:00 Dalia [facility] BASIC METABOLIC PANEL (NA, 2023-02-13 09:59:00 Edwin Gómez [facility] K, CL, CO2, GLUCOSE, BUN, Medica l Branch CREATININE, CA) CBC WITH DIFF 2023-02-13 09:59:00 Wojciechme [facility] POCT GLUCOSE (AUTOMATED) 2023-02-13 09:02:00 Abu [facility] POCT GLUCOSE (AUTOMATED) 2023-02-13 05:05:00 Abu [facility] POCT GLUCOSE (AUTOMATED) 2023-02-13 01:23:00 [facility] 2023-02-12 22:31:00 [facility] BASIC METABOLIC PANEL (NA, 2023-02-12 21:20:00 Nicolás Batres [facility] K, CL, CO2, GLUCOSE, BUN, [facility] CREATININE, CA) POCT GLUCOSE (AUTOMATED) 2023-02-12 16:52:00 [facility] POCT GLUCOSE (AUTOMATED) 2023-02-12 12:14:00 [facility] XR CHEST 1 VW 2023-02-12 11:26:00 Kalyan Ellen [facility] POCT GLUCOSE (AUTOMATED) 2023-02-12 09:04:00 [facility] 2023-02-12 07:33:00 [facility] MAGNESIUM 2023-02-12 07:33:00 [facility] HEPATIC FUNCTION PANEL 2023-02-12 07:33:00 Dianna Bailey [facility] ([id number]) (ALB,T.PRO,[facility] T,BU/BC,ALT,AST,ALK PHOS) BASIC METABOLIC PANEL (NA, 2023-02-12 07:33:00 [facility], CL, CO2, GLUCOSE, BUN, Medica l Branch CREATININE, CA) CBC WITH DIFF 2023-02-12 07:33:00 [facility] POCT GLUCOSE (AUTOMATED) 2023-02-12 05:02:00 [facility] POCT GLUCOSE (AUTOMATED) 2023-02-12 02:01:00 [facility] POCT GLUCOSE (AUTOMATED) 2023-02-11 22:05:00 [facility] POCT GLUCOSE (AUTOMATED) 2023-02-11 17:14:00 u [facility] POCT GLUCOSE (AUTOMATED) 2023-02-11 12:55:00 Abu Robbmaru [facility] PHOSPHORUS 2023-02-11 09:15:00 Dalia [facility] MAGNESIUM 2023-02-11 09:15:00 [facility] HEPATIC FUNCTION PANEL 2023-02-11 09:15:00 Dianna Bailey [facility] ([id number]) (ALB,T.PRO,BILI Medical Branch T,BU/BC,ALT,AST,ALK PHOS) BASIC METABOLIC PANEL (NA, 2023-02-11 09:15:00 [facility] K, CL, CO2, GLUCOSE, BUN, Medica l Branch CREATININE, CA) CBC WITH DIFF 2023-02-11 09:15:00 [facility] N-TERMINAL PRO-BNP 2023-02-11 09:15:00 Nicolás Batres [facility] POCT GLUCOSE (AUTOMATED) 2023-02-11 08:55:00 Abu [facility] POCT GLUCOSE (AUTOMATED) 2023-02-11 04:43:00 Abu [facility] POCT GLUCOSE (AUTOMATED) 2023-02-11 02:04:00 Abu [facility] POCT GLUCOSE (AUTOMATED) 2023-02-10 21:17:00 [facility] US ABDOMEN LIMITED WITH 2023-02-10 19:26:12 Dianna Bailey [facility] DOPPLER [facility] HEPATITIS B SURFACE 2023-02-10 18:58:00 Dianna Bailey [facility] ANTIBODY [facility] HEPATITIS B SURFACE 2023-02-10 18:58:00 Dianna Bailey [facility] ANTIGEN [facility] HCV ANTIBODY 2023-02-10 18:58:00 Dianna Bailey [facility] HEPATITIS A VIRUS ANTIBODY 2023-02-10 18:58:00 Dianna Bailey [facility] IGM [facility] HEPATITIS B CORE ANTIBODY 2023-02-10 18:58:00 Dianna Bailey [facility] HAV ANTIBODY (IGG AND IGM) 2023-02-10 18:58:00 Dianna Bailey [facility] POCT GLUCOSE (AUTOMATED) 2023-02-10 17:15:00 Abu [facility] XR CHEST 1 VW 2023-02-10 13:25:00 [facility] POCT GLUCOSE (AUTOMATED) 2023-02-10 13:13:00 Abu [facility] HEPATIC FUNCTION PANEL 2023-02-10 10:22:00 Dianna Bailey [facility] ([id number]) (ALB,T.PRO,BILI [facility] T,BU/BC,ALT,AST,ALK PHOS) BASIC METABOLIC PANEL (NA, 2023-02-10 10:22:00 [facility] K, CL, CO2, GLUCOSE, BUN, Medica l Branch CREATININE, CA) CBC WITH DIFF 2023-02-10 10:22:00 [facility]OMATED) 2023-02-10 08:47:00 Abu [facility] POCT GLUCOSE (AUTOMATED) 2023-02-10 04:46:00 Abu [facility] POCT GLUCOSE (AUTOMATED) 2023-02-10 01:12:00 Abu [facility] POCT GLUCOSE (AUTOMATED) 2023-02-09 20:57:00 Abu [facility] POCT GLUCOSE (AUTOMATED) 2023-02-09 16:45:00 Abu [facility] DUPLEX VENOUS LEGS 2023-02-09 15:15:59 Nicolás Batres [facility] BILATERAL - BY VASCULAR [facility] PO[facility] GLUCOSE (AUTOMATED) 2023-02-09 13:02:00 Abu [facility] BASIC METABOLIC PANEL (NA, 2023-02-09 10:22:00 Terminella, [facility] K, CL, CO2, GLUCOSE, BUN, Medica l Branch CREATININE, CA) CBC WITH DIFF 2023-02-09 10:22:00 Gurwinder Raymond [facility] POCT GLUCOSE (AUTOMATED) 2023-02-09 09:45:00 Abu [facility] POCT GLUCOSE (AUTOMATED) 2023-02-09 04:33:00 Abu [facility] POCT GLUCOSE (AUTOMATED) 2023-02-09 01:17:00 Abu [facility] POCT GLUCOSE (AUTOMATED) 2023-02-08 21:21:00 Abu [facility] HB ECG ROUTINE & RHYTHM 2023-02-08 17:05:19 Tiffanie Otto [facility] POCT GLUCOSE (AUTOMATED) 2023-02-08 16:33:00 Abu [facility] POCT GLUCOSE (AUTOMATED) 2023-02-08 12:35:00 Abu [facility] BASIC METABOLIC PANEL (NA, 2023-02-08 10:43:00 Nicolás Molina [facility] K, CL, CO2, GLUCOSE, BUN, Medica l Branch CREATININE, CA) CBC WITH DIFF 2023-02-08 10:43:00 Jesse Nicolás [facility] POCT GLUCOSE (AUTOMATED) 2023-02-08 10:43:00 Abu [facility] POCT GLUCOSE (AUTOMATED) 2023-02-08 05:43:00 [facility] POCT GLUCOSE (AUTOMATED) 2023-02-08 01:02:00 Abu [facility] POCT GLUCOSE (AUTOMATED) 2023-02-07 21:03:00 u [facility] TRANSTHORACIC ECHO (TTE) 2023-02-07 17:26:16 Jose Ramon Sumner [facility] MAGNESIUM 2023-02-07 17:06:00 Adama Fajardo [facility] TROPONIN I 2023-02-07 17:06:00 Adama Fajardo [facility] BASIC METABOLIC PANEL (NA, 2023-02-07 17:06:00 Adama Fajardo [facility] K, CL, CO2, GLUCOSE, BUN, Medica l Branch CREATININE, CA) CBC WITH DIFF 2023-02-07 17:06:00 Adama Fajardo o f [facility] POCT GLUCOSE (AUTOMATED) 2023-02-07 16:43:00 Abu [facility]nes [facility] POCT GLUCOSE (AUTOMATED) 2023-02-07 12:28:00 Abu Agnes [facility] TROPONIN I 2023-02-07 10:55:00 Segundo [facility] POCT GLUCOSE (AUTOMATED) 2023-02-07 09:38:00 Abu Agnes [facility] HB ECG ROUTINE & RHYTHM 2023-02-07 05:06:24 Gurwinder Raymond [facility] HB ECG ROUTINE & RHYTHM 2023-02-07 05:05:[address] [facility] COVID-19 (ID NOW RAPID 2023-02-07 04:59:00 AbCarlos Rocha [facility] TESTING) Medical Branch LAB ONLY COVID 2023-02-07 04:59:00 AbCarlos Rocha [facility] INTERPRETATION [facility] PHOSPHORUS 2023-02-07 04:57:00 Segundo [facility] MAGNESIUM 2023-02-07 04:57:00 Segundo [facility] TROPONIN I 2023-02-07 04:57:00 Segundo [facility] BASIC METABOLIC PANEL (NA, 2023-02-07 04:57:00 Segundo [facility] K, CL, CO2, GLUCOSE, BUN, Medica l Branch CREATININE, CA) CBC WITHOUT DIFF 2023-02-07 04:57:00 Segundo [facility] POCT GLUCOSE (AUTOMATED) 2023-02-07 04:55:00 Abu Agnes [facility] POCT GLUCOSE (AUTOMATED) 2023-02-07 00:52:00 Abu Agnes [facility] TROPONIN I 2023-02-06 23:04:00 ann Carlos Alarcon [facility] POCT GLUCOSE (AUTOMATED) 2023-02-06 21:23:00 Abu Agnes [facility] POCT GLUCOSE (AUTOMATED) 2023-02-06 17:37:00 Abu Agnes [facility] TROPONIN I 2023-02-06 17:06:00 Kalyan [facility] XR CHEST 1 2023-02-06 16:01:00 Kalyan [facility] XR CHEST 1 2023-02-06 16:01:00 Kalyan [facility] HB ECG ROUTINE & RHYTHM 2023-02-06 15:35:53 Kalyan [facility] N-TERMINAL PRO-BNP 2023-02-06 14:02:00 Liliam [facility] N-TERMINAL PRO-BNP 2023-02-06 14:02:00 Liliam [facility] ACUTE CARE ARTERIAL BLOOD 2023-02-06 13:38:00 Sanju Rick[facility] ACUTE CARE ARTERIAL BLOOD 2023-02-06 13:38:00 LiliamSanju [facility] POCT GLUCOSE (AUTOMATED) 2023-02-06 13:09:00 Carlos Alarcon [facility] POCT GLUCOSE (AUTOMATED) 2023-02-06 13:09:00 Carlos Alarcon [facility] TROPONIN I 2023-02-06 11:50:00 Kalyan [facility] TROPONIN I 2023-02-06 11:50:00 Kalyan [facility] XR CHEST 1 VW 2023-02-06 07:01:00 Kalyan [facility] XR CHEST 1 2023-02-06 07:01:00 Kalyan [facility] URINALYSIS MICROSCOPIC 2023-02-06 06:44:00 Ana Paula Perez [facility] URINALYSIS MICROSCOPIC 2023-02-06 06:44:00 Ana Paula Perez [facility] CBC WITH DIFF 2023-02-06 06:34:00 Kalyan [facility] MAGNESIUM 2023-02-06 06:34:00 Kalyan [facility] AMMONIA, PLASMA 2023-02-06 06:34:00 Chris [facility] COMP. METABOLIC PANEL 2023-02-06 06:34:00 Ana Paula Perez [facility] ([id number] BILI UNCONJUGATED/BILI 2023-02-06 06:34:00 [facility] MAGNESIUM 2023-02-06 06:34:00 Kalyan [facility] AMMONIA, PLASMA 2023-02-06 06:34:00 [facility] BILI UNCONJUGATED/BILI 2023-02-06 06:34:00 [facility]ianna [facility] COMP. METABOLIC PANEL 2023-02-06 06:34:00 Ana Paula Perez [facility] ([id number]) [facility] CBC WITH DIFF 2023-02-06 06:34:00 Kalyan [facility] AC PANEL 20 + LACTIC ACID 2023-02-06 06:26:00 Ana Paula Perez [facility] AC PANEL 20 + LACTIC ACID 2023-02-06 06:26:00 Ana Paula Perez [facility] POCT GLUCOSE (AUTOMATED) 2023-02-06 05:34:00 Abu Agnes [facility] POCT GLUCOSE (AUTOMATED) 2023-02-06 05:34:00 Abu Athermaru [facility] POCT GLUCOSE (AUTOMATED) 2023-02-06 02:01:00 Abu gAnes [facility] POCT GLUCOSE (AUTOMATED) 2023-02-06 02:01:00 Abu [facility] POCT GLUCOSE (AUTOMATED) 2023-02-05 22:50:00 Abu Atherah, [facility] POCT GLUCOSE (AUTOMATED) 2023-02-05 22:50:00 Abu [facility] POCT GLUCOSE (AUTOMATED) 2023-02-05 16:50:00 Abu Ather, [facility] POCT GLUCOSE (AUTOMATED) 2023-02-05 16:50:00 Abu [facility] PROTHROMBIN TIME / INR 2023-02-05 13:53:00 [facility] PROTHROMBIN TIME / INR 2023-02-05 13:53:00 Dianna [facility] POCT GLUCOSE (AUTOMATED) 2023-02-05 13:32:00 Abu [facility] POCT GLUCOSE (AUTOMATED) 2023-02-05 13:32:00 Abu [facility] CBC WITH DIFF 2023-02-05 10:12:00 Kalyan [facility] BASIC METABOLIC PANEL (NA, 2023-02-05 10:12:00 Biggs, Ellen [facility] K, CL, CO2, GLUCOSE, BUN, Medica l Branch CREATININE, CA) MAGNESIUM 2023-02-05 10:12:00 Biggs, [facility] MAGNESIUM 2023-02-05 10:12:00 [facility]OL[facility] (NA, 2023-02-05 10:12:00 Biggs, Ellen [facility] [place] K, CL, CO2, GLUCOSE, BUN, Medica l Branch CREATININE, CA) CBC WITH DIFF 2023-02-05 10:12:00 Kalyan [facility] POCT GLUCOSE (AUTOMATED) 2023-02-05 09:32:00 Abu [facility] POCT GLUCOSE (AUTOMATED) 2023-02-05 09:32:00 Abu [facility] POCT GLUCOSE (AUTOMATED) 2023-02-05 04:18:00 Abu [facility] POCT GLUCOSE (AUTOMATED) 2023-02-05 04:18:00 Abu Agnes [facility] POCT GLUCOSE (AUTOMATED) 2023-02-05 02:02:00 Abu Agnes [facility] POCT GLUCOSE (AUTOMATED) 2023-02-05 02:02:00 Abu Agnes [facility] POCT GLUCOSE (AUTOMATED) 2023-02-04 21:31:00 Abu Agnes [facility] POCT GLUCOSE (AUTOMATED) 2023-02-04 21:31:00 Abu Agnes [facility] CBC WITH DIFF 2023-02-04 21:02:00 Abu Agnes [facility] CBC WITH DIFF 2023-02-04 21:02:00 Abu Agnes [facility] IR 2023-02-04 19:54:12 Kalyan [facility] PARACENTESIS/PERITONECENTE [facility] SIS WITH IMAGING POCT GLUCOSE (AUTOMATED) 2023-02-04 16:40:00 Abu Agnes [facility] POCT GLUCOSE (AUTOMATED) 2023-02-04 16:40:00 Abu Agnes [facility] XR CHEST 1 VW 2023-02-04 13:34:00 Abu Agnes [facility] XR CHEST 1 VW 2023-02-04 13:34:00 Abu Robb [facility] POCT GLUCOSE (AUTOMATED) 2023-02-04 13:01:00 Abu Agnes [facility] POCT GLUCOSE (AUTOMATED) 2023-02-04 13:01:00 Abu Agnes [facility] AMMONIA, PLASMA 2023-02-04 12:45:00 Abu Agnes [facility] AMMONIA, PLASMA 2023-02-04 12:45:00 Abu Agnes [facility] AC ABG + LACTIC ACID 2023-02-04 12:37:00 Albkareem [facility] AC ABG + LACTIC ACID 2023-02-04 12:37:00 Albkareem [facility] PROTHROMBIN TIME / INR 2023-02-04 11:39:00 Dianna [facility] PROTHROMBIN TIME / INR 2023-02-04 11:39:00 Dianna [facility] CBC WITH DIFF 2023-02-04 09:49:00 [facility]OLIC PANEL (NA, 2023-02-04 09:49:00 Biggs, [facility] K, CL, CO2, GLUCOSE, BUN, Medica l Branch CREATININE, CA) MAGNESIUM 2023-02-04 09:49:00 [facility]US 2023-02-04 09:49:00 [facility]23-02-04 09:49:00 Albustami, [facility] MAGNESIUM 2023-02-04 09:49:00 [facility] BASIC METABOLIC PANEL (NA, 2023-02-04 09:49:00 Biggs, [facility] K, CL, CO2, GLUCOSE, BUN, Medica l Branch CREATININE, CA) CBC WITH DIFF 2023-02-04 09:49:00 [facility] PO[facility]UCOSE (AUTOMATED) 2023-02-04 09:19:00 Abu [facility] POCT GLUCOSE (AUTOMATED) 2023-02-04 09:19:00 Abu [facility] POCT GLUCOSE (AUTOMATED) 2023-02-04 03:56:00 Abu [facility] POCT GLUCOSE (AUTOMATED) 2023-02-04 03:56:00 Abu [facility] POCT GLUCOSE (AUTOMATED) 2023-02-04 02:15:00 Abu [facility] POCT GLUCOSE (AUTOMATED) 2023-02-04 02:15:00 u [facility] ABG+COOX+NA+K+GLU+CA2+ 2023-02-04 01:10:00 Abu [facility], Emran [facility] ABG+COOX+NA+K+GLU+CA2+ 2023-02-04 01:10:00 u Carlos Alarcon [facility] POCT GLUCOSE (AUTOMATED) 2023-02-04 00:51:00 Abu [facility] POCT GLUCOSE (AUTOMATED) 2023-02-04 00:51:00 Carlos Alarcon [facility] BLOOD CULTURE SCREEN 2023-02-03 22:14:00 Dianna Bailey [facility] BLOOD CULTURE SCREEN 2023-02-03 22:14:00 Dianna Bailey [facility] ABG+COOX+NA+K+GLU+CA2+ 2023-02-03 22:10:00 Abu Carlos Alarcon [facility] ABG+COOX+NA+K+GLU+CA2+ 2023-02-03 22:10:00 AbCarlos Rocha [facility] XR CHEST 1 VW 2023-02-03 21:56:00 Abu [facility]nes [facility] XR CHEST 1 VW 2023-02-03 21:56:00 Abann [facility]con [facility] BLOOD CULTURE SCREEN 2023-02-03 21:55:00 Dianna Bailey [facility] BLOOD CULTURE SCREEN 2023-02-03 21:55:00 Dianna Bailey [facility] FIBRINOGEN 2023-02-03 21:48:00 Dianna Bailey [facility] BASIC METABOLIC PANEL (NA, 2023-02-03 21:48:00 Abu Robb, [facility] K, CL, CO2, GLUCOSE, BUN, Medica l Branch CREATININE, CA) CBC WITH DIFF 2023-02-03 21:48:00 Abann Alarcon [facility] BASIC METABOLIC PANEL (NA, 2023-02-03 21:48:00 Abu Ather, [facility] K, CL, CO2, GLUCOSE, BUN, Medica l Branch CREATININE, CA) CBC WITH DIFF 2023-02-03 21:48:00 Abu Agnes [facility] FIBRINOGEN 2023-02-03 21:48:00 Dianna Bailey [facility] POCT GLUCOSE (AUTOMATED) 2023-02-03 21:22:00 Abann Alarcon [facility] POCT GLUCOSE (AUTOMATED) 2023-02-03 21:22:00 Abann Alarcon [facility] ABG+COOX+NA+K+GLU+CA2+ 2023-02-03 20:38:00 Carlos Carolian [facility] ABG+COOX+NA+K+GLU+CA2+ 2023-02-03 20:38:00 Carlos Carolina [facility] POCT GLUCOSE (AUTOMATED) 2023-02-03 17:22:00 Abann Zamudio [facility] POCT GLUCOSE (AUTOMATED) 2023-02-03 17:22:00 Carlos Alarcon [facility] CBC WITH DIFF 2023-02-03 15:17:00 Abu Robb [facility] CBC WITH DIFF 2023-02-03 15:17:00 Carlos [facility] PROTHROMBIN TIME / INR 2023-02-03 13:37:00 Dianna Bailey [facility] PROTHROMBIN TIME / INR 2023-02-03 13:37:00 Dianna Bailey [facility] POCT GLUCOSE (AUTOMATED) 2023-02-03 13:29:00 Abann Alarcon [facility] POCT GLUCOSE (AUTOMATED) 2023-02-03 13:29:00 Abu [facility] BASIC METABOLIC PANEL (NA, 2023-02-03 09:34:00 Nicolás Molina [facility] K, CL, CO2, GLUCOSE, BUN, Medica l Branch CREATININE, CA) MAGNESIUM 2023-02-03 09:34:00 Jesse [facility] PHOSPHORUS 2023-02-03 09:34:00 Jesse [facility] CBC WITHOUT DIFF 2023-02-03 09:34:00 Jesse [facility] IRON 2023-02-03 09:34:00 Jesse [facility] TOTAL IRON BINDING 2023-02-03 09:34:00 Jesse [facility] FERRITIN SERUM 2023-02-03 09:34:00 Jesse [facility] VITAMIN B12, LEVEL 2023-02-03 09:34:00 Jesse [facility] FOLATE 2023-02-03 09:34:00 Jesse [facility] GLYCOSYLATED HEMOGLOBIN 2023-02-03 09:34:[address] [facility] PHOSPHORUS 2023-02-03 09:34:00 Jesse [facility] MAGNESIUM 2023-02-03 09:34[facility]23-02-03 09:34:00 Jesse [facility] IRON 2023-02-03 09:34:00 Jesse [facility] VITAMIN B12, LEVEL 2023-02-03 09:34:00 Jesse [facility] FOLATE 2023-02-03 09:34:00 [facility] TOTAL IRON [facility]IND[facility] 2023-02-03 09:34:00 Jesse [facility] BASIC METABOLIC PANEL (NA, 2023-02-03 09:34:00 Nicolás Molina [facility] K, CL, CO2, GLUCOSE, BUN, Medica l Branch CREATININE, CA) CBC WITHOUT DIFF 2023-02-03 09:34:00 Jesse [facility] GLYCOSYLATED HEMOGLOBIN 2023-02-03 09:34:[address] [facility] POCT GLUCOSE (AUTOMATED) 2023-02-03 09:13:00 Carlos Carolina [facility] POCT GLUCOSE (AUTOMATED) 2023-02-03 09:13:00 Carlos Alarcon [facility] TRANSFUSE PACKED RBC 2023-02-03 05:42:00 Jesse [facility] TRANSFUSE PACKED RBC 2023-02-03 05:42:00 Zhannalissy [facility] PREPARE PACKED RBC 2023-02-03 05:32:[facility] 2023-02-03 05:32:[address] [facility] [place] [facility] POCT GLUCOSE (AUTOMATED) 2023-02-03 04:27:00 Carlos Zamudio [facility] POCT GLUCOSE (AUTOMATED) 2023-02-03 04:27:00 Carlos Alarcon [facility] HB ABO GROUPING 2023-02-03 04:21:00 [facility] HB ABO GROUPING 2023-02-03 04:21:00 [facility] URINE DRUG (IMMUNOASSAY) - 2023-02-03 02:12:00 Brandon Shelton U [facility] COMPREHENSIVE DRUG SCREEN [facility] [place] URINE DRUG (IMMUNOASSAY) - 2023-02-03 02:12:00 [facility]EN [facility] LACTIC ACID WHOLE BLOOD 2023-02-03 02:01:00 Brandon Shelton [facility] LACTIC ACID WHOLE BLOOD 2023-02-03 02:01:00 Brandon Shelton [facility] TRANSFUSE PACKED RBC 2023-02-03 01:24:00 Brandon Shelton [facility] TRANSFUSE PACKED RBC 2023-02-03 01:24:00 Brandon Shelton [facility] PREPARE PACKED RBC 2023-02-03 01:04:45 Brandon Shelton [facility] PREPARE PACKED RBC 2023-02-03 01:04:45 Brandon Shelton [facility] TRANSFUSE PACKED RBC 2023-02-02 22:15:00 Brandon Shelton [facility] TRANSFUSE PACKED RBC 2023-02-02 22:15:00 Brandon Shelton [facility] URINE CULTURE 2023-02-02 22:07:00 Brandon Shelton [facility] URINE CULTURE 2023-02-02 22:07:00 Brandon Shelton [facility] XR CHEST 1 VW 2023-02-02 21:43:00 Brandon Shelton [facility] XR CHEST 1 VW 2023-02-02 21:43:00 Brandon Shelton [facility] CT HEAD WO CONTRAST 2023-02-02 21:42:00 Brandon Shelton [facility] CT MAXILLOFACIAL/MANDIBLE 2023-02-02 21:42:00 Brandon Shelton Un iversity of [facility] CONTRAST Medical Branch CT ABDOMEN PELVIS WO 2023-02-02 21:42:00 Brandon Shelton [facility] CONTRAST Medical Branch CT ABDOMEN PELVIS WO 2023-02-02 21:42:00 Brandon Shelton [facility] CONTRAST [facility] CT MAXILLOFACIAL/MANDIBLE 2023-02-02 21:42:00 Brandon Shetlon Un iversity of [facility] CONTRAST Medical [place] CT HEAD WO CONTRAST 2023-02-02 21:42:00 Brandon Shelton [facility] THYROID STIMULATING 2023-02-02 21:33:00 Brandon Shelton [facility] HORMONE [facility] HB ABO GROUPING 2023-02-02 21:33:00 Brandon Shelton [facility] THYROID STIMULATING 2023-02-02 21:33:00 Brandon Shelton [facility] HORMONE [facility] HB ABO GROUPING 2023-02-02 21:33:00 Brandon Shelton [facility] URINALYSIS 2023-02-02 20:47:00 Brandon Shelton [facility] URINALYSIS 2023-02-02 20:47:00 Brandon Shelton [facility] AC ABG + LACTIC ACID 2023-02-02 20:32:00 Brandon Shelton [facility] AC ABG + LACTIC ACID 2023-02-02 20:32:00 Brandon Shelton [facility] ASSIGNMENT OF BENEFITS 2023-02-02 20:07:35 Doctor Unassigned, Un [facility] [place] [facility] ASSIGNMENT OF BENEFITS 2023-02-02 20:07:35 Doctor Unassigned, Un [facility] [place] [facility] CBC WITH DIFF 2023-02-02 20:04:00 Brandon Shelton [facility] PROTHROMBIN TIME / INR 2023-02-02 20:04:00 Brandon Shelton [facility] COMP. METABOLIC PANEL 2023-02-02 20:04:00 Brandon Shelton [facility] ([id number]) [facility] TROPONIN I 2023-02-02 20:04:00 Brandon Shelton [facility] N-TERMINAL PRO-BNP 2023-02-02 20:04:00 Brandon Shelton [facility] TROPONIN I 2023-02-02 20:04:00 Brandon Shelton [facility] COMP. METABOLIC PANEL 2023-02-02 20:04:00 Brandon Shelton [facility] ([id number]) [facility] CBC WITH DIFF 2023-02-02 20:04:00 Brandon Shelton [facility] PROTHROMBIN TIME / INR 2023-02-02 20:04:00 Brandon Shelton [facility] N-TERMINAL PRO-BNP 2023-02-02 20:04:00 Brandon Shelton [facility] CONSENT/REFUSAL FOR 2023-02-02 19:51:26 Doctor Caliigned, [facility] DIAGNOSIS AND TREATMENT [place] [facility] CONSENT/REFUSAL FOR 2023-02-02 19:51:26 Doctor Unassigned, [facility] DIAGNOSIS AND TREATMENT [facility] [place] [facility] HB ECG ROUTINE & RHYTHM 2023-02-02 19:43:[address] [facility] HB ECG ROUTINE & RHYTHM 2023-02-02 19:43:[address] [facility] CRITICAL CARE 2023-02-02 19:37:00 Brandon Shelton [facility] CRITICAL CARE 2023-02-02 19:37:00 Brandon Shelton [facility] EXTERNAL PROVIDER RECORDS 2023-02-02 05:01:00 Doctor Unassigned, [facility] [place] [facility] EXTERNAL PROVIDER RECORDS 2023-02-02 05:01:00 Doctor Unassigned, [facility] [place] [facility] EMERGENCY DEPARTMENT 2023-02-02 05:01:00 Doctor Unassigned, [facility] DOCUMENTS [place] [facility] DISCLOSURE AND CONSENT, 2023-02-02 05:01:00 Doctor Unassigned, [facility] MEDICAL AND SURGICAL [place] [facility] PROCEDURES EXTERNAL PROVIDER - ADC 2023-01-12 05:01:00 Doctor Unassigned, [facility] REFERRAL [place] [facility] POCT GLUCOSE (AUTOMATED) 2022-11-07 16:43:00 Phaljacky, Abbe Uni versity of [facility] POCT GLUCOSE (AUTOMATED) 2022-11-07 16:43:00 Phalak, Abbe Uni versity of [facility] POCT GLUCOSE (AUTOMATED) 2022-11-07 13:31:00 Phalak, Abbe Uni versity of [facility] POCT GLUCOSE (AUTOMATED) 2022-11-07 13:31:00 [facility]FF 2022-11-07 09:26:00 Chandan [facility] CBC WITH DIFF 2022-11-07 09:26:00 Chandan [facility] POCT GLUCOSE (AUTOMATED) 2022-11-07 01:40:00 Phalak, Abbe Uni versity of [facility] POCT GLUCOSE (AUTOMATED) 2022-11-07 01:40:00 Phalak, Abbe Uni versity of [facility] POCT GLUCOSE (AUTOMATED) 2022-11-06 23:00:00 Phalak, Abbe Uni versity of [facility] POCT GLUCOSE (AUTOMATED) 2022-11-06 23:00:00 Phalak, Abbe Uni versity of [facility] POCT GLUCOSE (AUTOMATED) 2022-11-06 17:53:00 Phalak, Abbe Uni versity of [facility] POCT GLUCOSE (AUTOMATED) 2022-11-06 17:53:00 Phalak, Abbe Uni versity of [facility] POCT GLUCOSE (AUTOMATED) 2022-11-06 13:25:00 Phalak, Abbe Uni versity of [facility] POCT GLUCOSE (AUTOMATED) 2022-11-06 13:25:00 Phalak, Abbe Uni versity of [facility] POCT GLUCOSE (AUTOMATED) 2022-11-06 01:35:00 Phalak, Abbe Uni versity of [facility] POCT GLUCOSE (AUTOMATED) 2022-11-05 22:40:00 Phalak, Abbe Uni versity of [facility] POCT GLUCOSE (AUTOMATED) 2022-11-05 17:37:00 Phalak, Abbe Uni versity of [facility] POCT GLUCOSE (AUTOMATED) 2022-11-05 12:20:00 Phalak, Abbe Uni versity of [facility] POCT GLUCOSE (AUTOMATED) 2022-11-05 02:01:00 Phalak, Abbe Uni versity of [facility] POCT GLUCOSE (AUTOMATED) 2022-11-04 21:10:00 Phalak, Abbe [facility] [place] [facility] COVID-19 (ID NOW RAPID 2022-11-04 19:04:00 Avel Hawley [facility] TESTING) Medical Branch LAB ONLY COVID 2022-11-04 19:04:00 Avel Hawley Alexis o f [place] INTERPRETATION [facility] POCT GLUCOSE (AUTOMATED) 2022-11-04 16:24:00 Phalak, Abbe Uni versity of [facility] POCT GLUCOSE (AUTOMATED) 2022-11-04 12:43:00 Phalak, Abbe Uni versity of [facility] BASIC METABOLIC PANEL (NA, 2022-11-04 09:14:00 Avel Hawley [facility] K, CL, CO2, GLUCOSE, BUN, Medica l Branch CREATININE, CA) CBC WITH DIFF 2022-11-04 09:14:00 Chandan [facility] o f [facility] POCT GLUCOSE (AUTOMATED) 2022-11-04 01:25:00 Phalak, Abbe Uni versity of [facility] POCT GLUCOSE (AUTOMATED) 2022-11-03 22:19:00 Phalak, Abbe Uni versity of [facility] POCT GLUCOSE (AUTOMATED) 2022-11-03 16:38:00 Phalak, Abbe Uni versity of [facility] POCT GLUCOSE (AUTOMATED) 2022-11-03 12:46:00 Phalak, Abbe Uni versity of [facility] POCT GLUCOSE (AUTOMATED) 2022-11-03 01:42:00 Phalak, Abbe Uni versity of [facility] POCT GLUCOSE (AUTOMATED) 2022-11-02 21:08:00 Phalak, Abbe Uni versity of [facility] POCT GLUCOSE (AUTOMATED) 2022-11-02 16:07:00 Phalak, Abbe Uni vers[facility] of [facility] POCT GLUCOSE (AUTOMATED) 2022-11-02 12:35:00 Phalak, Abbe Uni versity of [facility] POCT GLUCOSE (AUTOMATED) 2022-11-02 01:43:00 Phalak, Abbe Uni vers[facility] of [facility] POCT GLUCOSE (AUTOMATED) 2022-11-01 20:56:00 Phalak, Abbe Uni versity of [facility] POCT GLUCOSE (AUTOMATED) 2022-11-01 16:43:00 Phalak, Abbe Uni versity of [facility] POCT GLUCOSE (AUTOMATED) 2022-11-01 12:39:00 Phalak, Abbe Uni versity of [facility] POCT GLUCOSE (AUTOMATED) 2022-11-01 01:49:00 Phalak, Abbe Uni versity of [facility] POCT GLUCOSE (AUTOMATED) 2022-11-01 01:49:00 Phalak, Abbe Uni versity of [facility] BASIC METABOLIC PANEL (NA, 2022-10-31 22:27:00 Ashish [facility] K, CL, CO2, GLUCOSE, BUN, Medica l Branch CREATININE, CA) BASIC METABOLIC PANEL (NA, 2022-10-31 22:27:00 Ashish Ingrid [facility] K, CL, CO2, GLUCOSE, BUN, Medica l Branch CREATININE, CA) CARDIAC CATHETERIZATION 2022-10-31 16:44:12 Abelardo [facility] 2022-10-31 16:44:12 Abelardo Bautista Un [facility] POCT ACT LOW RANGE 2022-10-31 16:28:00 Phalak, [facility] POCT ACT LOW RANGE 2022-10-31 16:28:00 Phalak, [facility] POCT ACT LOW RANGE 2022-10-31 16:01:00 Phalak, [facility] POCT ACT LOW RANGE 2022-10-31 16:01:00 Phalak, [facility] POCT ACT LOW RANGE 2022-10-31 15:40:00 Phalak, [facility] POCT ACT LOW RANGE 2022-10-31 15:40:00 Phalak, [facility] POCT ACT LOW RANGE 2022-10-31 15:14:00 Phalak, [facility] POCT ACT LOW RANGE 2022-10-31 15:14:00 Phalak, [facility] POCT ACT LOW RANGE 2022-10-31 14:52:00 Phalak, [facility] POCT ACT LOW RANGE 2022-10-31 14:52:00 Selena, [facility] CATH PROCEDURE LOG 2022-10-31 14:28:42 Ingrid Hinojosa [facility] CATH PROCEDURE LOG 2022-10-31 14:28:42 Ingrid Hinojosa [facility] POCT GLUCOSE (AUTOMATED) 2022-10-31 12:26:00 Phaljacky [facility] POCT GLUCOSE (AUTOMATED) 2022-10-31 12:26:00 Selena [facility] ACTIVATED PARTIAL THRMPLAS 2022-10-31 06:23:00 Ingrid Hinojosa [facility] ACTIVATED PARTIAL THRMPLAS 2022-10-31 06:23:00 Ingrid Hinojosa [facility] ACTIVATED PARTIAL THRMPLAS 2022-10-31 05:19:00 Ingrid Hinojosa [facility] ACTIVATED PARTIAL THRMPLAS 2022-10-31 05:19:00 Ingrid Hinojosa Dori [facility] POCT GLUCOSE (AUTOMATED) 2022-10-31 02:13:00 [facility]SE ([facility]OMATED) 2022-10-31 02:13:00 Abbe Lewis Uni [facility] ACTIVATED PARTIAL THRMPLAS 2022-10-30 23:12:00 Ingrid Hinojosa [facility] ACTIVATED PARTIAL THRMPLAS 2022-10-30 23:12:00 Ingrid Hinojosa [facility] POCT GLUCOSE (AUTOMATED) 2022-10-30 21:47:00 [facility]ng [facility]SE (AUTOMATED) 2022-10-30 21:47:00 Kvng Maxwell Uni [facility] ABORH CONFIRMATION (LAB 2022-10-30 19:33:00 Adele, Noah [facility] [place] ONLY) [facility] ABORH CONFIRMATION (LAB 2022-10-30 19:33:00 Adele, Noah Uni versity of [place] ONLY) [facility] HB ABO GROUPING 2022-10-30 18:35:00 [facility] HB ABO GROUPING 2022-10-30 18:35:00 [facility] POCT GLUCOSE (AUTOMATED) 2022-10-30 16:49:00 [facility]ng [facility]SE (AUTOMATED) 2022-10-30 16:49:00 Kvng Maxwell Uni [facility] ACTIVATED PARTIAL THRMPLAS 2022-10-30 14:35:00 Ingrid Hinojosa [facility] ACTIVATED PARTIAL THRMPLAS 2022-10-30 14:35:00 Ingrid Hinojosa [facility] POCT GLUCOSE (AUTOMATED) 2022-10-30 13:17:00 Kvng Maxwell [facility] POCT GLUCOSE (AUTOMATED) 2022-10-30 13:17:00 Kvng Maxwell [facility] BASIC METABOLIC PANEL (NA, 2022-10-30 09:52:00 Moulin, Jose [facility] [place] K, CL, CO2, GLUCOSE, BUN, Medica l Branch CREATININE, CA) CBC WITH DIFF 2022-10-30 09:52:00 Moulin [facility] BASIC METABOLIC PANEL (NA, 2022-10-30 09:52:00 Moulin, Jose [facility] [place] K, CL, CO2, GLUCOSE, BUN, Medica l Branch CREATININE, CA) CBC WITH DIFF 2022-10-30 09:52:00 Modavid [facility] POCT GLUCOSE (AUTOMATED) 2022-10-30 01:08:00 Kvng Maxwell [facility] POCT GLUCOSE (AUTOMATED) 2022-10-30 01:08:00 Kvng Maxwell [facility] ACTIVATED PARTIAL THRMPLAS 2022-10-30 00:38:00 Ingrid Hinojosa [facility] ACTIVATED PARTIAL THRMPLAS 2022-10-30 00:38:00 Ingrid Hinojosa [facility] POCT GLUCOSE (AUTOMATED) 2022-10-29 21:52:00 Kvng Maxwell [facility] POCT GLUCOSE (AUTOMATED) 2022-10-29 21:52:00 Kvng Maxwell [facility] TRANSTHORACIC ECHO (TTE) 2022-10-29 18:31:00 Ingrid Hinojosa U [facility] W/ CONTRAST Medical [facility] TRANSTHORACIC ECHO (TTE) 2022-10-29 18:31:00 [facility] ACTIVATED PARTIAL THRMPLAS 2022-10-29 17:01:00 Ingrid Hinojosa [facility] ACTIVATED PARTIAL THRMPLAS 2022-10-29 17:01:00 Ingrid Hinojosa [facility] POCT GLUCOSE (AUTOMATED) 2022-10-29 16:30:00 Darren Kvng Uni versity of [facility] POCT GLUCOSE (AUTOMATED) 2022-10-29 16:30:00 Darren Kvng Uni versity of [facility] POCT GLUCOSE (AUTOMATED) 2022-10-29 13:02:00 DarrenKvng Uni versity of [facility] POCT GLUCOSE (AUTOMATED) 2022-10-29 13:02:00 Kvng Maxwell Vy versity [facility] MAGNESIUM 2022-10-29 08:07:00 Moulin, [facility] BASIC METABOLIC PANEL (NA, 2022-10-29 08:07:00 M[place]lin, [facility], CL, CO2, GLUCOSE, BUN, Medica l Branch CREATININE, CA) CBC WITH DIFF 2022-10-29 08:07:00 Moulin, [facility] MAGNESIUM 2022-10-29 08:07:00 Moulin, [facility] BASIC METABOLIC PANEL (NA, 2022-10-29 08:07:00 Moulin, Jose [facility], CL, CO2, GLUCOSE, BUN, Medica l Branch CREATININE, CA) CBC WITH DIFF 2022-10-29 08:07:00 Moulin, [facility] ACTIVATED PARTIAL THRMPLAS 2022-10-29 04:40:00 [place]lin, [facility] PARTIAL THRMPLAS 2022-10-29 04:40:00 [place]oulin, [facility] POCT GLUCOSE (AUTOMATED) 2022-10-29 01:36:00 Kvng Maxwell Uni versity of [facility] POCT GLUCOSE (AUTOMATED) 2022-10-29 01:36:00 Kvng Maxwell Uni versity of [facility] POCT GLUCOSE (AUTOMATED) 2022-10-29 01:36:00 Kvng Maxwell Uni versity of [facility] POCT GLUCOSE (AUTOMATED) 2022-10-28 21:55:00 Kvng Maxwell Uni versity of [facility] POCT GLUCOSE (AUTOMATED) 2022-10-28 21:55:00 Kvng Maxwell Uni versity of [facility] POCT GLUCOSE (AUTOMATED) 2022-10-28 21:55:00 Kvng Maxwell Uni versity of [facility] CARDIAC CATHETERIZATION 2022-10-28 17:27:00 Ingrid Hinojosa Un iversity of [facility] CARDIAC CATHETERIZATION 2022-10-28 17:27:00 Ingrid Hinojosa Un iversity of [facility] CARDIAC CATHETERIZATION 2022-10-28 17:27:00 Ingrid Hinojosa Un iversity of [facility] CARDIAC CATHETERIZATION 2022-10-28 17:27:00 Ingrid Hinojosa Un iversity of [facility] CARDIAC CATHETERIZATION 2022-10-28 17:27:00 Ingrid Hinojosa Un iversity of [facility] CARDIAC CATHETERIZATION 2022-10-28 17:27:00 Ingrid Hinojosa Un iversity of [facility] POCT ACT LOW RANGE 2022-10-28 17:24:00 Darren [facility] POCT ACT LOW RANGE 2022-10-28 17:24:00 Darren [facility] POCT ACT LOW RANGE 2022-10-28 17:24:00 Darren [facility] CATH PROCEDURE LOG 2022-10-28 16:51:15 In[facility] 2022-10-28 10:59:00 Kalyan [facility] BASIC METABOLIC PANEL (NA, 2022-10-28 10:59:00 [facility], CO2, GLUCOSE, BUN, Medica l Branch CREATININE, CA) MAGNESIUM 2022-10-28 10:59:00 Kalyan [facility] BASIC METABOLIC PANEL (NA, 2022-10-28 10:59:00 Kalyan [facility] K, CL, CO2, GLUCOSE, BUN, Medica l Branch CREATININE, CA) MAGNESIUM 2022-10-28 10:59:00 Kalyan [facility] BASIC METABOLIC PANEL (NA, 2022-10-28 10:59:00 Kalyan [facility] K, CL, CO2, GLUCOSE, BUN, Medica l Branch CREATININE, CA) CBC WITH DIFF 2022-10-28 09:01:00 Kalyan [facility] ACTIVATED PARTIAL THRMPLAS 2022-10-28 09:01:00 [facility]FF 2022-10-28 09:01:00 Biggs [facility] ACTIVATED PARTIAL THRMPLAS 2022-10-28 09:01:00 [facility] CBC WITH DIFF 2022-10-28 09:01:00 Biggs [facility] ACTIVATED PARTIAL THRMPLAS 2022-10-28 09:01:[facility]22-10-28 04:32:00 Alex, [facility] URINE CULTURE 2022-10-28 04:32:00 Alex, [facility] URINALYSIS 2022-10-28 04:32:00 Alex, [facility] URINE CULTURE 2022-10-28 04:32:00 Alex, [facility] URINALYSIS 2022-10-28 04:32:00 Alex, [facility] POCT GLUCOSE (AUTOMATED) 2022-10-28 01:13:00 [facility]SE ([facility]OMATED) 2022-10-28 01:13:00 [facility]ng [facility] PO[facility] GLUCOSE (AUTOMATED) 2022-10-28 01:13:00 [facility] ACTIVATED PARTIAL THRMPLAS 2022-10-28 01:02:00 Kvng Maxwell U [facility]iversity [facility] ACTIVATED PARTIAL THRMPLAS 2022-10-28 01:02:00 Kvng Maxwell [facility]iversity [facility] ACTIVATED PARTIAL THRMPLAS 2022-10-28 01:02:00 [facility] PO[facility] GLUCOSE (AUTOMATED) 2022-10-27 22:58:00 Kvng Maxwell Uni versity [facility] POCT GLUCOSE (AUTOMATED) 2022-10-27 22:58:00 Kvng Maxwell versity of [facility] POCT GLUCOSE (AUTOMATED) 2022-10-27 22:58:00 Kvng Maxwell versity of [facility] POCT GLUCOSE (AUTOMATED) 2022-10-27 21:45:00 Kvng Maxwell versity of [facility] POCT GLUCOSE (AUTOMATED) 2022-10-27 21:45:00 Kvng Maxwell versity [facility] POCT GLUCOSE (AUTOMATED) 2022-10-27 21:45:00 [facility] ACTIVATED PARTIAL THRMPLAS 2022-10-27 17:46:00 Ingrid Hinojosa [facility] ACTIVATED PARTIAL THRMPLAS 2022-10-27 17:46:00 Ingrid Hinojosa [facility] ACTIVATED PARTIAL THRMPLAS 2022-10-27 17:46:00 Ingrid Hinojosa [facility] POCT GLUCOSE (AUTOMATED) 2022-10-27 17:45:00 Terminella, Gurwinder [facility] POCT GLUCOSE (AUTOMATED) 2022-10-27 17:45:00 Terminella, Gurwinder U niversity [facility] POCT GLUCOSE (AUTOMATED) 2022-10-27 17:45:00 Terminella, Gurwinder U niversity [facility] POCT GLUCOSE (AUTOMATED) 2022-10-27 13:46:00 Terminella, Gurwinder U niversity [facility] POCT GLUCOSE (AUTOMATED) 2022-10-27 13:46:00 Terminella, Gurwinder U niversity of [facility] POCT GLUCOSE (AUTOMATED) 2022-10-27 13:46:00 Terminella, Gurwinder U niversity [facility] MAGNESIUM 2022-10-27 09:24:00 Ellen Biggs o f [facility] TROPONIN I 2022-10-27 09:24:00 Ingrid Hinojosa [facility] BASIC METABOLIC PANEL (NA, 2022-10-27 09:24:00 Ellen Biggs [facility] K, CL, CO2, GLUCOSE, BUN, Medica l Branch CREATININE, CA) CBC WITH DIFF 2022-10-27 09:24:00 Kalyan [facility] MAGNESIUM 2022-10-27 09:24:00 Biggs [facility] TROPONIN I 2022-10-27 09:24:00 Ingrid Hinojosa [facility] BASIC METABOLIC PANEL (NA, 2022-10-27 09:24:00 Biggs, Ellen [facility] [place] K, CL, CO2, GLUCOSE, BUN, Medica l Branch CREATININE, CA) CBC WITH DIFF 2022-10-27 09:24:00 Kalyan [facility] MAGNESIUM 2022-10-27 09:24:00 Kalyan [facility] TROPONIN I 2022-10-27 09:24:00 Ingrid Hinojosa Dori [facility] BASIC METABOLIC PANEL (NA, 2022-10-27 09:24:00 Biggs, Ellen [facility] [place] K, CL, CO2, GLUCOSE, BUN, Medica l Branch CREATININE, CA) CBC WITH DIFF 2022-10-27 09:24:00 Kalyan [facility] POCT GLUCOSE (AUTOMATED) 2022-10-27 02:03:00 Terminella, [facility]SE (AUTOMATED) 2022-10-27 02:03:00 Terminella, Gurwinder U niversity [facility] POCT GLUCOSE (AUTOMATED) 2022-10-27 02:03:00 Terminella, Gurwinder U niversity [facility] MAGNESIUM 2022-10-26 21:49:00 Biggs [facility] BASIC METABOLIC PANEL (NA, 2022-10-26 21:49:00 Biggs, Ellen [facility] [place] K, CL, CO2, GLUCOSE, BUN, Medica l Branch CREATININE, CA) POCT GLUCOSE (AUTOMATED) 2022-10-26 21:49:00 Terminella, Gurwinder U niversity [facility] MAGNESIUM 2022-10-26 21:49:00 Biggs [facility] BASIC METABOLIC PANEL (NA, 2022-10-26 21:49:00 BiggsLeonardo remyal [facility] [place] K, CL, CO2, GLUCOSE, BUN, Medica l Branch CREATININE, CA) POCT GLUCOSE (AUTOMATED) 2022-10-26 21:49:00 Terminella, Gurwinder U niversity of [facility] MAGNESIUM 2022-10-26 21:49:00 Ellen Biggs o f [facility] BASIC METABOLIC PANEL (NA, 2022-10-26 21:49:00 BiggsLeonardo remyal U niversity [facility] K, CL, CO2, GLUCOSE, BUN, Medica l Branch CREATININE, CA) POCT GLUCOSE (AUTOMATED) 2022-10-26 21:49:00 Terminella, Gurwinder U niversity of [facility] POCT GLUCOSE (AUTOMATED) 2022-10-26 17:57:00 Terminella, Gurwinder U niversity [facility] POCT GLUCOSE (AUTOMATED) 2022-10-26 17:57:00 Terminella, Gurwinder [facility] niversity [facility] POCT GLUCOSE (AUTOMATED) 2022-10-26 17:57:00 Terminella, Gurwinder [facility] MRSA / MSSA SCREEN BY PCR, 2022-10-26 15:14:00 Biggs, Ellen U niversity of [facility] MRSA / MSSA SCREEN BY PCR, 2022-10-26 15:14:00 Biggs, Ellen [facility] MRSA / MSSA SCREEN BY PCR, 2022-10-26 15:14:00 Kalyan Ellen [facility]iversity of [facility] HB ECG ROUTINE & RHYTHM 2022-10-26 14:36:55 Kalyan Ellen Univ ersity [facility] HB ECG ROUTINE & RHYTHM 2022-10-26 14:36:55 Biggs, Ellen Univ ersity of [facility] HB ECG ROUTINE & RHYTHM 2022-10-26 14:36:55 Kalyan Ellen Univ ersity of [facility] POCT GLUCOSE (AUTOMATED) 2022-10-26 14:20:00 Terminella, Gurwinder U niversity [facility] POCT GLUCOSE (AUTOMATED) 2022-10-26 14:20:00 Terminella, Gurwinder [facility] [place] [facility] POCT GLUCOSE (AUTOMATED) 2022-10-26 14:20:00 TerminMargi morrelligi U [facility] XR CHEST 1 VW 2022-10-26 08:13:28 Carlie Oconnor [facility] XR CHEST 1 VW 2022-10-26 08:13:28 Carlie Oconnor [facility] XR CHEST 1 VW 2022-10-26 08:13:28 Carlie Oconnor [facility] ACUTE CARE ARTERIAL BLOOD 2022-10-26 08:09:00 Carlie Oconnor [facility] ACUTE CARE ARTERIAL BLOOD 2022-10-26 08:09:00 Carlie Oconnor [facility] ACUTE CARE ARTERIAL BLOOD 2022-10-26 08:09:00 Carlie Oconnor [facility] TROPONIN I 2022-10-26 07:58:00 Carlie Oconnor [facility] COMP. METABOLIC PANEL 2022-10-26 07:58:00 Carlie Oconnor [facility] ([id number]) [facility] CBC WITH DIFF 2022-10-26 07:58:00 Carlie Oconnor [facility] PROTHROMBIN TIME / INR 2022-10-26 07:58:00 Carlie Oconnor [facility] N-TERMINAL PRO-BNP 2022-10-26 07:58:00 Carlie Oconnor [facility] TROPONIN I 2022-10-26 07:58:00 Carlie Oconnor [facility] COMP. METABOLIC PANEL 2022-10-26 07:58:00 Carlie Oconnor [facility] ([id number]) [facility] CBC WITH DIFF 2022-10-26 07:58:00 Carlie Oconnor [facility] PROTHROMBIN TIME / INR 2022-10-26 07:58:00 Carlie Oconnor [facility] N-TERMINAL PRO-BNP 2022-10-26 07:58:00 Carlie Oconnor [facility] TROPONIN I 2022-10-26 07:58:00 Carlie Oconnor [facility] COMP. METABOLIC PANEL 2022-10-26 07:58:00 Carlie Oconnor [facility] ([id number]) [facility] CBC WITH DIFF 2022-10-26 07:58:00 Carlie Oconnor [facility] PROTHROMBIN TIME / INR 2022-10-26 07:58:00 Carlie Oconnor [facility] N-TERMINAL PRO-BNP 2022-10-26 07:58:00 Carlie Oconnor [facility] HB ECG ROUTINE & RHYTHM 2022-10-26 07:47:42 Carlie Oconnor [facility] HB ECG ROUTINE & RHYTHM 2022-10-26 07:47:42 Carlie Oconnor [facility] HB ECG ROUTINE & RHYTHM 2022-10-26 07:47:42 Carlie Oconnor [facility] CRITICAL CARE 2022-10-26 07:41:00 Carlie Oconnor [facility] CRITICAL CARE 2022-10-26 07:41:00 Carlie Oconnor [facility] CRITICAL CARE 2022-10-26 07:41:00 Carlie Oconnor [facility] POCT GLUCOSE (AUTOMATED) 2022-09-06 22:24:00 Vince Thomason [facility] POCT GLUCOSE (AUTOMATED) 2022-09-06 16:38:00 Vince Thomason [facility] POCT GLUCOSE (AUTOMATED) 2022-09-06 14:46:00 Vince Thomason [facility] TROPONIN I 2022-09-06 13:18:00 Bowen Sales [facility] POCT GLUCOSE (AUTOMATED) 2022-09-06 12:31:00 Vince Thomason [facility] BASIC METABOLIC PANEL (NA, 2022-09-06 10:49:00 Lucio Sales [facility] K, CL, CO2, GLUCOSE, BUN, Medica l Branch CREATININE, CA) CBC WITHOUT DIFF 2022-09-06 10:49:00 Bowen Sales [facility] N-TERMINAL PRO-BNP 2022-09-06 10:49:00 [facility] 2022-09-06 00:46:00 Asamoa, Vince Uni versity [facility] POCT GLUCOSE (AUTOMATED) 2022-09-05 22:08:00 Asamoa, Vince Uni versity [facility] POCT GLUCOSE (AUTOMATED) 2022-09-05 21:22:00 Asamoa, Vince Uni versity [facility] POCT GLUCOSE (AUTOMATED) 2022-09-05 16:53:00 [facility]oa [facility]OL[facility] PAN[facility] (NA, 2022-09-05 10:53:00 Lucio Sales [facility] K, CL, CO2, GLUCOSE, BUN, Medica l Branch CREATININE, CA) CBC WITHOUT DIFF 2022-09-05 08:31:00 Bowen Sales [facility] POCT GLUCOSE (AUTOMATED) 2022-09-05 02:10:00 Asamoa, [facility]) 2022-09-04 23:03:00 Asamoa, [facility]SE (AUTOMATED) 2022-09-04 17:02:00 Asamoa, Vince Uni versity [facility] POCT GLUCOSE (AUTOMATED) 2022-09-04 13:30:00 Asamoa, Vince Uni versity [facility] MAGNESIUM 2022-09-04 10:25:00 James Biggs [facility] BASIC METABOLIC PANEL (NA, 2022-09-04 10:25:00 Lucio Sales [facility] K, CL, CO2, GLUCOSE, BUN, Medica l Branch CREATININE, CA) CBC WITHOUT DIFF 2022-09-04 10:25:00 Bowen Sales [facility] POCT GLUCOSE (AUTOMATED) 2022-09-04 02:19:00 Vince Thomason [facility] POCT GLUCOSE (AUTOMATED) 2022-09-03 22:28:00 Vince Thomsaon [facility] TRANSTHORACIC ECHO (TTE) 2022-09-03 20:18:52 James Biggs [facility] COMPLETE W/ CONTRAST Medical Bra nch TROPONIN I 2022-09-03 18:20:00 Kalyan [facility] POCT GLUCOSE (AUTOMATED) 2022-09-03 17:38:00 Vince Thomason [facility] POCT GLUCOSE (AUTOMATED) 2022-09-03 13:32:00 Vince Thomason [facility] MAGNESIUM 2022-09-03 10:30:00 Kalyan [facility] TROPONIN I 2022-09-03 10:30:00 Kalyan [facility] BASIC METABOLIC PANEL (NA, 2022-09-03 10:30:00 James Biggs [facility] K, CL, CO2, GLUCOSE, BUN, Medica l Branch CREATININE, CA) LIPID PANEL (59655)(TOTAL 2022-09-03 10:30:00 James Biggs [facility] CHOLESTEROL, Medical Branch TRIGLYCERIDES, HDL) MAGNESIUM 2022-09-03 04:03:00 Kalyan [facility] FERRITIN SERUM 2022-09-03 04:03:00 Kalyan [facility] TROPONIN I 2022-09-03 04:03:00 Kalyan [facility] THYROID STIMULATING 2022-09-03 04:03:00 [facility] BASIC METABOLIC PANEL (NA, 2022-09-03 04:03:00 James Biggs [facility] K, CL, CO2, GLUCOSE, BUN, Medica l Branch CREATININE, CA) IRON PANEL 2022-09-03 04:03:00 Kalyan [facility] CBC WITH DIFF 2022-09-03 04:03:00 Kalyan [facility] GLYCOSYLATED HEMOGLOBIN 2022-09-03 04:03:00 James Biggs [facility] (A1C) [facility] N-TERMINAL PRO-BNP 2022-09-03 04:03:00 James Biggs [facility] XR CHEST 2 VW 2022-09-03 03:37:00 Kalyan [facility] POCT GLUCOSE (AUTOMATED) 2022-09-03 02:53:00 Vince Thomason [facility] ASSIGNMENT OF BENEFITS 2022-05-27 21:59:04 Doctor Unassigned, [facility] Name Medical [place] REFERRAL- REQUEST/RESPONSE 2022-05-16 06:01:00 Doctor Unassigned , [facility] [place] [facility] Ekg 2020-08-15 00:00:00 Plan of Care Planned Activity Planned Date Details Comments Source Goal Plan of Care Note [code = 04606-7] Goal Plan of Care Note [code = 53315-5] Goal Plan of Care Note [code = 76384-2] Goal Plan of Care Note [code = 95392-6] Goal Plan of Care Note [code = 00903-4] Goal Plan of Care Note [code = 65836-8] Goal Plan of Care Note [code = 28269-6] Goal Plan of Care Note [code = 66611-9] Goal Plan of Care Note [code = 27536-6] Goal Plan of Care Note [code = 69407-7] Goal Plan of Care Note [code = 95400-7] Goal Plan of Care Note [code = 50582-7] Goal Plan of Care Note [code = 68624-1] Goal Plan of Care Note [code = 16513-7] Goal Plan of Care Note [code = 74728-8] Goal Plan of Care Note [code = 08463-5] Goal Plan of Care Note [code = 68573-9] Goal Plan of Care Note [code = 57498-4] Goal Plan of Care Note [code = 63585-7] Goal Plan of Care Note [code = 08091-2] Goal Plan of Care Note [code = 08851-4] Goal Plan of Care Note [code = 10438-4] Goal Plan of Care Note [code = 92906-2] Goal Plan of Care Note [code = 65576-2] Goal Plan of Care Note [code = 98207-8] Goal Plan of Care Note [code = 36214-2] Goal Plan of Care Note [code = 31350-2] Goal Plan of Care Note [code = 43547-9] Goal Plan of Care Note [code = 28568-9] Goal Plan of Care Note [code = 39772-5] Goal Plan of Care Note [code = 65026-5] Goal Plan of Care Note [code = 51292-9] Goal Plan of Care Note [code = 01358-2] Goal Plan of Care Note [code = 41793-1] Goal Plan of Care Note [code = 11651-7] Goal Plan of Care Note [code = 95483-8] Goal Plan of Care Note [code = 30587-4] Goal Plan of Care Note [code = 73950-9] Goal Plan of Care Note [code = 23013-0] Goal Plan of Care Note [code = 49209-7] Goal Plan of Care Note [code = 01570-8] Goal Plan of Care Note [code = 27704-8] Goal Plan of Care Note [code = 90323-1] Goal Plan of Care Note [code = 03569-6] Goal Plan of Care Note [code = 97684-3] Goal Plan of Care Note [code = 59980-6] Goal Plan of Care Note [code = 44446-5] Goal Plan of Care Note [code = 27804-8] Goal Plan of Care Note [code = 62423-5] Goal Plan of Care Note [code = 39986-4] Goal Plan of Care Note [code = 62148-8] Goal Plan of Care Note [code = 20066-7] Goal Plan of Care Note [code = 16961-3] Goal Plan of Care Note [code = 71735-6] Goal Plan of Care Note [code = 36778-3] Goal Plan of Care Note [code = 13238-7] Goal Plan of Care Note [code = 32516-4] Goal Plan of Care Note [code = 91673-1] Goal Plan of Care Note [code = 25001-4] Goal Plan of Care Note [code = 59246-3] Goal Plan of Care Note [code = 26439-6] Goal Plan of Care Note [code = 22821-0] Goal Plan of Care Note [code = 67613-9] Goal Plan of Care Note [code = 31066-3] Goal Plan of Care Note [code = 62196-9] Goal Plan of Care Note [code = 59221-5] Encounters Start End Encounter Admission Attending Care Care Encounter Source Date/Time Date/Time Type Type Clinicians Facility Department ID 2023-02-20 2023-02-20 Transition SONYA Mariscal 1.2.840.114 10 [id number] Univers 00:00:00 00:00:00 of Care Rosaura BENNETTY 350.1.13.10 [phone] [address] 2023-02-02 2023-02-18 Inpatient U ANA PAULA BERRY [facility] MIGUELANGEL 10 [id number] Univers 14:37:00 15:30:00 ANA PAULA BERRY [facility] 2023-02-02 2023-02-18 [facility] Brandon Shelton [facility] 1.2.840.11 4 [id number] Univers 14:37:00 15:30:00 Encounter Carlos [place] [facility] 350.1.13. 10 ity of [place] 4.2.7.2.686 [place] [phone] [facility] 113 [facility] ([facility]) 2023-02-16 2023-02-16 Anesthesia Yael [facility] 1.2.840.114 [id number] Univers 20:03:49 20:03:49 Event Dexter HEALTH 350.1.13.10 it [place] [id number] [address] ([facility]) 2023-02-09 2023-02-09 Anesthesia Yael [facility] 1.2.840.114 [id number] Univers 20:03:43 20:03:43 Event Dexter HEALTH 350.1.13.10 [place] [id number] [address] ([facility]) 2023-02-04 2023-02-04 Travel 1.2.840.1 1.2.530.125 [id number] Univers 00:00:00 00:00:00 81875.1.1 350.1.13.10 ity of 3.104.2.7 4.[place]3.698 [place] .3.750247 084.8 Medica l .8 [place] 2023-02-02 2023-02-02 Travel 1.2.840.1 1.2.335.676 2590 [id number] Univers 00:00:00 00:00:00 97306.1.1 350.1.13.10 ity of 3.104.2.7 [place].698 [place] .3.066[place] 084.8 Medica l .8 [place] 2023-01-12 2023-01-12 Outpatient Shawanda MA [facility] [id number] Univers 11:00:00 11:00:00 SINJU ity [facility] 2023-01-12 2023-01-12 Orders Doctor NANO 1.2.840.114 [id number] Univers 00:00:00 00:00:00 Only Unassigned, RIKY 350.1.13.10 ity of [place] [facility] 4.2.7.2.686 Alexi as [id number] [address] 2022-12-18 2022-12-18 Outpatient [facility] SFA 30143-1 023 Surendra 17:03:38 17:03:38 0803 F Christopher 2022-11-27 2022-11-27 Outpatient Shawanda MA [facility] [id number] Univers 10:30:00 10:30:00 SINJU ity [facility] 2022-11-10 2022-11-10 Transition [place], 1.2.840.7 [id number] Univers 00:00:00 00:00:00 of Care Arlene Lentz 95379.1.1 ity of 3.104.2.7 [place] .3.330513 Medica l .8 [place] 2022-10-26 2022-11-07 [facility] Carlie Oconnor 1.2.840.6 [id number] Univers 02:43:00 14:30:00 Encounter Segundo Gurwinder 09923.1.1 ity of [place] Luis Caputo 3.104.2.7 Kvng Ortiz .3.664333 M deric Abbe Lewis .8 [place] 2022-10-26 2022-11-07 Inpatient U ABBE LEWIS [facility] 1 [id number] Univers 02:43:00 14:30:00 ABBE LEWIS ity of [facility] 2022-10-31 2022-10-31 Surgery [facility] 1.2.840.114 10 [id number] Univers 09:30:00 11:30:00 [facility] 350.1.13.10 [place] [id number] [address] ([facility]) 2022-10-28 2022-10-28 Surgery [facility] 1.2.840.114 10 [id number] Univers 10:30:00 13:30:00 [facility] 350.1.13.10 [place] [id number] [address] ([facility]) 2022-10-15 2022-10-15 Outpatient [facility] [id number] Surendra 16:42:13 16:42:13 0531 Vandana White 2022-10-14 2022-10-14 Outpatient LALIT LINARES [facility] [id number] Univers 13:20:00 13:20:00 LALIT PEREZ ity of [facility] 2022-09-29 2022-09-29 Rosana Perez [facility] 1.2.840.114 [id number] Univers 00:00:00 00:00:00 [facility] 350.1.13.10 ity of [place] 4.2.7.2.686 Alexi as MIGNON?BLEA [phone] Co elizabeth[address] MEDICAL OFFICE BUILDING 2022-09-15 2022-09-15 Outpatient [facility] [id number] Surendra 15:43:42 15:43:42 0501 F Christopher 2022-09-10 2022-09-10 Telephone Yashira [facility] 1.2.840.114 [id number] Univers 00:00:00 00:00:00 [facility] HEALTH 350.1.13.10 it y of [place] [id number] [facility] [address] OFFICE BUILDING 2022-09-09 2022-09-09 Outpatient Shawanda OSUNA [facility] [id number] Univers 16:30:00 16:30:00 ELIZABETH schofield [facility] 2022-09-09 2022-09-09 Patient Doctor NANO 1.2.840.114 [id number] Univers 00:00:00 00:00:00 Secure Msg Unassigned, RIKY 350.1.13.10 ity of [place] [facility] 4.2.7.2.686 Alexi as [id number] [facility] [address] 2022-09-08 2022-09-08 Transition SONYA Hoffman 1.2.840.114 102 [id number] Univers 00:00:00 00:00:00 of Care Arlene B KEYES 350.1.13.10 it y of [place] [id number] [place] [address] [address] 2022-09-02 2022-09-06 Inpatient U KALYAN [facility] [id number] Univers 21:16:00 18:59:00 JAMES schofield [facility] 2022-09-02 2022-09-06 [facility] Vince Thomason [facility] 1.2.840.11 4 [id number] Univers 21:16:00 18:59:00 Encounter James Biggs [facility] 350.1.13.10 it[place] [facility] [id number] [address] ([facility]) 2022-09-02 2022-09-02 Outpatient Shawanda OSUNA [facility] [id number] Univers 16:30:00 16:30:00 ELIZABETH schofield [facility] 2022-08-19 2022-08-19 Outpatient [facility] [id number] 023 Surendra 08:42:21 08:42:21 0404 F Christopher 2022-05-27 2022-05-27 Outpatient LALIT LINARES [facility] [id number] Univers 16:00:00 16:56:43 LALIT PEREZ monalisa [facility] 2022-05-27 2022-05-27 Office Chris [facility] 1.2.840.114 [id number] Univers 16:00:00 16:56:43 Visit Lalit [facility] 350.1.13.10 [facility] 4.2.7.2.686 Alexi as MIGNON?BLEA [phone] Co dic[address] MEDICAL OFFICE [facility] 2022-05-27 2022-05-27 Orders Doctor NANO 1.2.840.114 [id number] Univers 00:00:00 00:00:00 Only Unassigned, RIKY 350.1.13.10 ity of [place] [facility] 4.2.7.2.686 Alexi as [id number] [address] 2022-05-16 2022-05-16 Orders Doctor NANO 1.2.840.114 [id number] Univers 00:00:00 00:00:00 Only Unassigned, RIKY 350.1.13.10 ity of [place] [facility] 4.2.7.2.686 Alexi as [phone] [address] 2022-05-06 2022-05-06 Outpatient Shawanda CHRISLALIT PATEL [facility] [id number] Univers 08:00:00 08:00:00 LALIT PEREZ monalisa [facility] 2022-05-02 2022-05-02 Outpatient LALIT LINARES [facility] [id number] Univers 15:20:00 15:20:00 LALIT PEREZ [facility] 2022-04-03 2022-04-03 Outpatient [id number] 5g1984-4 00:00:00 00:00:00 Visit 02a4-384h 3y8-067b-r -x42c-3e2 70f-5d9d7b [id number] 6c6313 2022-02-18 2022-02-18 Outpatient [facility] [id number] Surendra 16:39:55 16:39:55 1004 F Christopher 2022-02-18 2022-02-18 Outpatient y4d6a455- [id number] j6s747-7 00:00:00 00:00:00 Visit 6jv3-56p9 ba2-47c8-9 -9480-5f2 [id number] 838j755zr c411bc 2022-02-14 2022-02-14 Outpatient R LALIT PEREZ [facility] [id number] Univers 16:00:00 16:00:00 LALIT PEREZ [facility] 2022-01-31 2022-01-31 Office Provider, [facility] 1.2.840.114 [id number] [facility] 16:40:00 17:00:00 Visit Wilian [facility] 350.1.13.10 [facility] 4.2.7.2.686 Alexi as MIGNON?BLEA [phone] [address] MEDICAL OFFICE [facility] 2022-01-31 2022-01-31 Outpatient Shaw[facility] [id number] Univers 16:40:00 16:40:00 [facility] 2022-01-31 2022-01-31 Outpatient Shaw[facility] [id number] Univers 16:40:00 16:40:00 [facility] 2022-01-03 2022-01-03 Outpatient [id number] joy829-3 00:00:00 00:00:00 Visit 2258-48f7 258-48f7-a -i91h-u46 [id number] 472e56q81 f16e30 2021-12-24 2021-12-24 Outpatient [id number] 3f7458-3 00:00:00 00:00:00 Visit 0076-4e7a 076-4e7a-9 -9acf-7c8 acf-7c8ac8 uz98e508d 1v094c 2021-10-21 2021-10-21 Orders Doctor NANO 1.2.840.114 [id number] Univers 00:00:00 00:00:00 Only Unassigned, RIKY 350.1.13.10 ity of [place] [facility]PITAL 4.2.7.2.686 Alexi as [id number] [address] 2021-09-09 2021-09-09 Orders Doctor NANO 1.2.840.114 [id number] Univers 00:00:00 00:00:00 Only Unassigned, RIKY 350.1.13.10 ity of [place] [facility]OSPITAL 4.2.7.2.686 Alexi as [id number] [address] 2021-07-10 2021-07-10 Outpatient Shaw[facility] [id number] Univers 15:20:00 15:20:00 IBIS kanwal [facility] 2021-06-19 2021-06-19 Outpatient Shawanda WARNER [facility] [id number] Univers 15:40:00 15:40:00 IBIS kanwal [facility] 2021-05-16 2021-05-16 Orders Doctor NANO 1.2.840.114 [id number] Univers 00:00:00 00:00:00 Only Unassigned, RIKY 350.1.13.10 ity of [place] [facility] 4.2.7.2.686 Alexi as [id number] [address] 2021-04-09 2021-04-09 [facility] 1.2.830.878 [id number] Univers 19:22:58 23:59:00 Encounter Rania HEALTH 350.1.13.10 ity of [place] 4.2.7.2.686 Alexi as MIGNON?BLEA [id number] [address] MEDICAL OFFICE [facility] 2021-04-09 2021-04-09 [facility] 1.2.903.387 [id number] Univers 19:22:57 23:59:00 Encounter Rania HEALTH 350.1.13.10 ity of [place] 4.2.7.2.686 Alexi as MIGNON?BLEA [id number] [address] MEDICAL OFFICE BUILDING 2021-04-09 2021-04-09 Urgent Nagi [facility] 1.2.840.114 [id number] Univers 19:03:28 19:49:57 Care Cece [facility] 350.1.13.10 it y of [place] 4.2.7.2.686 Alexi as MIGNON?BLEA [id number] Co valentine [address] MEDICAL OFFICE BUILDING 2021-04-09 2021-04-09 Outpatient R NAGI [facility] [id number] Univers 19:00:00 19:49:57 RANIA ity of [facility] 2021-04-09 2021-04-09 Letter Doctor NANO 1.2.840.114 [id number] Univers 00:00:00 00:00:00 (Out) Unassigned, RIKY 350.1.13.10 ity of [place] [facility] 4.2.7.2.686 Alexi as [id number] [address] 2021-04-03 2021-04-03 Orders Doctor NANO 1.2.840.114 [id number] Univers 00:00:00 00:00:00 Only Unassigned, RIKY 350.1.13.10 ity of [place] [facility]OSPITAL 4.2.7.2.686 Alexi as [phone] [facility] 009 [place] Results Test Description Test Time Test Comments Results Result Comments Source POCT GLUCOSE (AUTOMATED) 2023-02-18 17:16:18 Test Item Value Reference Range Interpretation Comme nts POCT GLU (test code = 9016912959) 193 mg/dL 70-110 H Notified Provider Lab Interpretation (test code = 20779-1) Abnormal [facility] GLUCOSE (AUTOMATED)2023-02-18 13:15:11 Test Item Value Reference Range Interpretation Comments POCT GLU (test code = 194 mg/dL 70-110 H Notifi ed Provider [id number]) Lab Interpretation (test Abnormal code = 20722-8) [facility] GLUCOSE (AUTOMATED)2023-02-18 02:26:46 Test Item Value Reference Range Interpretation Comments POCT GLU (test code = 9227325048) 185 mg/dL 70-110 H Lab Interpretation (test code = Abnormal 83441-2) [facility] GLUCOSE (AUTOMATED)2023-02-17 21:59:48 Test Item Value Reference Range Interpretation Comments POCT GLU (test code = 2799380730) 169 mg/dL 70-110 H Lab Interpretation (test code = Abnormal 74913-8) [facility] GLUCOSE (AUTOMATED)2023-02-17 16:52:41 Test Item Value Reference Range Interpretation Comments POCT GLU (test code = 4445052319) 193 mg/dL 70-110 H Lab Interpretation (test code = Abnormal 82198-8) [facility] GLUCOSE (AUTOMATED)2023-02-17 12:46:14 Test Item Value Reference Range Interpretation Comments POCT GLU (test code = 0128079055) 184 mg/dL 70-110 H Lab Interpretation (test code = Abnormal 76309-6) [facility] GLUCOSE (AUTOMATED)2023-02-17 02:03:56 Test Item Value Reference Range Interpretation Comments POCT GLU (test code = 3765588955) 207 mg/dL 70-110 H Lab Interpretation (test code = Abnormal 34266-0) [facility] GLUCOSE (AUTOMATED)2023-02-16 22:06:44 Test Item Value Reference Range Interpretation Comments POCT GLU (test code = 4924693878) 189 mg/dL 70-110 H Lab Interpretation (test code = Abnormal 83819-6) [facility] GLUCOSE (AUTOMATED)2023-02-16 16:33:39 Test Item Value Reference Range Interpretation Comments POCT GLU (test code = 4704924049) 241 mg/dL 70-110 H Lab Interpretation (test code = Abnormal 40651-5) [facility] GLUCOSE (AUTOMATED)2023-02-16 14:06:06 Test Item Value Reference Range Interpretation Comments POCT GLU (test code = 2159651750) 262 mg/dL 70-110 H Lab Interpretation (test code = Abnormal 84405-8) [facility] GLUCOSE (AUTOMATED)2023-02-16 11:31:28 Test Item Value Reference Range Interpretation Comments POCT GLU (test code = 5142858370) 160 mg/dL 70-110 H Lab Interpretation (test code = Abnormal 24316-7) [facility] GLUCOSE (AUTOMATED)2023-02-16 05:17:04 Test Item Value Reference Range Interpretation Comments POCT GLU (test code = 0533416175) 174 mg/dL 70-110 H Lab Interpretation (test code = Abnormal 39545-6) [facility] GLUCOSE (AUTOMATED)2023-02-16 01:30:24 Test Item Value Reference Range Interpretation Comments POCT GLU (test code = 1407403242) 207 mg/dL 70-110 H Lab Interpretation (test code = Abnormal 58158-8) [facility] GLUCOSE (AUTOMATED)2023-02-15 22:32:04 Test Item Value Reference Range Interpretation Comments POCT GLU (test code = 5307556982) 161 mg/dL 70-110 H Lab Interpretation (test code = Abnormal 15607-9) [facility] GLUCOSE (AUTOMATED)2023-02-15 16:57:38 Test Item Value Reference Range Interpretation Comments POCT GLU (test code = 5945493850) 176 mg/dL 70-110 H Lab Interpretation (test code = Abnormal 87803-1) [id number] 14:17:57 Test Item Value Reference Range Interpretation Comments NT-proBNP (test code = 6130 pg/mL <=125 H 07845-4) LOW (test code = LOW) Positive: Heart Failure Likely Lab Interpretation (test Abnormal code = 31342-4) [facility] GLUCOSE (AUTOMATED)2023-02-15 11:07:11 Test Item Value Reference Range Interpretation Comments POCT GLU (test code = 1766422392) 173 mg/dL 70-110 H Lab Interpretation (test code = Abnormal 76140-4) [facility] (NA, K, CL, CO2, GLUCOSE, BUN, CREATININE, CA)2023-02-15 09:58:17 Test Item Value Reference Range Interpretation Comments NA (test code = 136 mmol/L 135-145 [id number]) K (test code = 3.9 mmol/L 3.5-5.0 6351869266) CL (test code = 102 mmol/L 98-108 1720543601) CO2 TOTAL (test code = 26 mmol/L 23-31 8333694588) AGAP (test code = 8 2-16 9331692844) BUN (test code = 6 mg/dL 7-23 L 7334213212) GLUCOSE (test code = 168 mg/dL 70-110 H 5655562050) CREATININE (test code = 0.66 mg/dL 0.50-1.04 5453893608) CALCIUM (test code = 8.7 mg/dL 8.6-10.6 8043217545) eGFR (test code = 86.8 mL/min/1.73m2 4073101078) LOW (test code = LOW) Association of Glomerular Filtration Rate (GFR) and Staging of Kidney Disease* + --+ --+ ------+| GFR (mL/min/1.73 m2) ?| With Kidney Damage ?| ?Without Kidney Damage+ --------+ --------+ +| ?>90 ?| ?Stage one ?| ? Normal ?+ ---+ ---+ -------+| ?60-89 ?| ?Stage two ?| ? Decreased GFR ? + --+ --+ ------+| ?30-59 ?| ?Stage three ?| ? Stage three ? + --+ --+ ------+| ?15-29 ?| ?Stage four ? | ? Stage four ?+ ---+ ---+ -------+| ?<15 (or dialysis) ? ?| ?Stage five ? | ? Stage five ?+ ---+ ---+ -------+ *Each stage assumes the associated GFR level has been in effect for at least three months. ?Stages 1 to 5, with or without kidney disease, indicate chronic kidney disease. Notes: Determination of stages one and two (with eGFR >59mL/min/1.73 m2) requires estimation of kidney damage for at least three months as defined by structural or functional abnormalities of the kidney, manifested by either:Pathological abnormalities or Markers of kidney damage (including abnormalities in the composition of the blood or urine or abnormalities in imaging tests). Lab Interpretation Abnormal (test code = 77583-2) [facility] WITH [id number] 09:32:15 Test Item Value Reference Range Interpretation Comments WBC (test code = 7.23 See_Comment [Automated 6690-2) message] The sy stem which generated this result transmitted reference range : 4.30 - 11.10 10*3/?L. The reference range was not used to interpret this result as normal/abnormal . RBC (test code = 3.97 See_Comment [Automated 789-8) message] The sy stem which generated this result transmitted reference range : 3.93 - 5.25 10*6/?L. The reference range was not used to interpret this result as normal/abnormal . HGB (test code = 9.9 g/dL 11.6-15.0 L 718-7) HCT (test code = 33.1 % 35.7-45.2 L 4544-3) MCV (test code = 83.4 fL 80.6-95.5 787-2) MCH (test code = 24.9 pg 25.9-32.8 L 785-6) MCHC (test code = 29.9 g/dL 31.6-35.1 L 786-4) RDW-SD (test code = 76.7 fL 39.0-49.9 H 91133-3) RDW-CV (test code = 25.9 % 12.0-15.5 H 788-0) PLT (test code = 280 See_Comment [Automated 777-3) message] The sy stem which generated this result transmitted reference range : 166 - 358 10*3/ ?L. The reference r federica was not used to interpret this result as normal/abnormal . MPV (test code = 10.0 fL 9.5-12.9 75002-9) NRBC/100 WBC (test 0.0 See_Comment [Automat ed code = 4542167715) message] The system which generated this result transmitted reference range : 0.0 - 10.0 /100 WBCs. The refer ence range was not u sed to interpret th is result as normal/abnormal . NRBC x10^3 (test code See_Comment [Auto mated = 7690508554) message] The s ystem which generated this result transmitted reference range : 10*3/?L. The reference range was not used to interpret this result as normal/abnormal . GRAN MAT (NEUT) % 62.7 % (test code = 770-8) IMM GRAN % (test code 0.40 % = 6163713369) LYMPH % (test code = 20.6 % 736-9) MONO % (test code = 11.6 % 5905-5) EOS % (test code = 4.4 % 713-8) BASO % (test code = 0.3 % 706-2) GRAN MAT x10^3(ANC) 4.53 10*3/uL 1.88-7.09 (test code = 9556506075) IMM GRAN x10^3 (test 0.03 10*3/uL 0.00-0.06 code = 9926295371) LYMPH x10^3 (test code 1.49 10*3/uL 1.32-3.29 = 731-0) MONO x10^3 (test code 0.84 10*3/uL 0.33-0.92 = 742-7) EOS x10^3 (test code = 0.32 10*3/uL 0.03-0.39 711-2) BASO x10^3 (test code 0.01-0.07 = 704-7) Lab Interpretation Abnormal (test code = 29003-5) [facility] GLUCOSE (AUTOMATED)2023-02-15 05:16:18 Test Item Value Reference Range Interpretation Comments POCT GLU (test code = 4356641178) 135 mg/dL 70-110 H Lab Interpretation (test code = Abnormal 24349-7) [facility] GLUCOSE (AUTOMATED)2023-02-15 01:03:19 Test Item Value Reference Range Interpretation Comments POCT GLU (test code = 3807174816) 129 mg/dL 70-110 H Lab Interpretation (test code = Abnormal 87597-4) [facility] GLUCOSE (AUTOMATED)2023-02-14 21:53:23 Test Item Value Reference Range Interpretation Comments POCT GLU (test code = 8437627670) 138 mg/dL 70-110 H Lab Interpretation (test code = Abnormal 34223-9) [facility] GLUCOSE (AUTOMATED)2023-02-14 16:31:19 Test Item Value Reference Range Interpretation Comments POCT GLU (test code = 7248036638) 218 mg/dL 70-110 H Lab Interpretation (test code = Abnormal 20550-7) [facility] GLUCOSE (AUTOMATED)2023-02-14 12:11:56 Test Item Value Reference Range Interpretation Comments POCT GLU (test code = 5926962797) 169 mg/dL 70-110 H Lab Interpretation (test code = Abnormal 38821-0) [facility] GLUCOSE (AUTOMATED)2023-02-14 08:34:37 Test Item Value Reference Range Interpretation Comments POCT GLU (test code = 6821679746) 173 mg/dL 70-110 H Lab Interpretation (test code = Abnormal 31333-2) [facility] 04:53:56 Test Item Value Reference Range Interpretation Comments POCT GLU (test code = 0914166834) 154 mg/dL 70-110 H Lab Interpretation (test code = Abnormal 22367-7) [facility] GLUCOSE (AUTOMATED)2023-02-14 02:12:50 Test Item Value Reference Range Interpretation Comments POCT GLU (test code = 8952484918) 156 mg/dL 70-110 H Lab Interpretation (test code = Abnormal 54098-0) [facility] GLUCOSE (AUTOMATED)2023-02-13 22:06:19 Test Item Value Reference Range Interpretation Comments POCT GLU (test code = 200 mg/dL 70-110 H Notifi ed Provider [id number]) Lab Interpretation (test Abnormal code = 85693-8) [facility] GLUCOSE (AUTOMATED)2023-02-13 17:06:42 Test Item Value Reference Range Interpretation Comments POCT GLU (test code = 8842560356) 184 mg/dL 70-110 H Lab Interpretation (test code = Abnormal 37856-0) [facility] GLUCOSE (AUTOMATED)2023-02-13 12:42:11 Test Item Value Reference Range Interpretation Comments POCT GLU (test code = 5069629686) 188 mg/dL 70-110 H Lab Interpretation (test code = Abnormal 37424-9) [facility] GLUCOSE (AUTOMATED)2023-02-13 09:03:30 Test Item Value Reference Range Interpretation Comments POCT GLU (test code = 3494505803) 190 mg/dL 70-110 H Lab Interpretation (test code = Abnormal 71338-2) [facility] GLUCOSE (AUTOMATED)2023-02-13 05:06:24 Test Item Value Reference Range Interpretation Comments POCT GLU (test code = 2642256798) 182 mg/dL 70-110 H Lab Interpretation (test code = Abnormal 92852-1) [facility] GLUCOSE (AUTOMATED)2023-02-13 02:05:35 Test Item Value Reference Range Interpretation Comments POCT GLU (test code = 7634063857) 241 mg/dL 70-110 H Lab Interpretation (test code = Abnormal 37717-0) [facility] GLUCOSE (AUTOMATED)2023-02-12 22:33:00 Test Item Value Reference Range Interpretation Comments POCT GLU (test code = 2222684357) 228 mg/dL 70-110 H Lab Interpretation (test code = Abnormal 65907-2) [facility] GLUCOSE (AUTOMATED)2023-02-12 16:54:55 Test Item Value Reference Range Interpretation Comments POCT GLU (test code = 2974756620) 192 mg/dL 70-110 H Lab Interpretation (test code = Abnormal 70629-0) [facility] GLUCOSE (AUTOMATED)2023-02-12 13:09:31 Test Item Value Reference Range Interpretation Comments POCT GLU (test code = 3438597443) 189 mg/dL 70-110 H Lab Interpretation (test code = Abnormal 18813-4) [facility] GLUCOSE (AUTOMATED)2023-02-12 09:07:10 Test Item Value Reference Range Interpretation Comments POCT GLU (test code = 5004170429) 197 mg/dL 70-110 H Lab Interpretation (test code = Abnormal 00072-1) [facility] GLUCOSE (AUTOMATED)2023-02-12 05:10:50 Test Item Value Reference Range Interpretation Comments POCT GLU (test code = 4962253807) 231 mg/dL 70-110 H Lab Interpretation (test code = Abnormal 23011-3) [facility] GLUCOSE (AUTOMATED)2023-02-12 02:16:10 Test Item Value Reference Range Interpretation Comments POCT GLU (test code = 3799570704) 233 mg/dL 70-110 H Lab Interpretation (test code = Abnormal 49318-8) [facility] GLUCOSE (AUTOMATED)2023-02-11 22:19:45 Test Item Value Reference Range Interpretation Comments POCT GLU (test code = 0583024955) 249 mg/dL 70-110 H Lab Interpretation (test code = Abnormal 61291-2) [facility] GLUCOSE (AUTOMATED)2023-02-11 17:16:23 Test Item Value Reference Range Interpretation Comments POCT GLU (test code = 4849777138) 290 mg/dL 70-110 H Lab Interpretation (test code = Abnormal 26689-6) [facility] GLUCOSE (AUTOMATED)2023-02-11 12:57:30 Test Item Value Reference Range Interpretation Comments POCT GLU (test code = 5640488896) 225 mg/dL 70-110 H Lab Interpretation (test code = Abnormal 62908-0) [facility] GLUCOSE (AUTOMATED)2023-02-11 08:56:59 Test Item Value Reference Range Interpretation Comments POCT GLU (test code = 1359888271) 177 mg/dL 70-110 H Lab Interpretation (test code = Abnormal 63057-3) [facility] GLUCOSE (AUTOMATED)2023-02-11 04:45:57 Test Item Value Reference Range Interpretation Comments POCT GLU (test code = 4998897569) 274 mg/dL 70-110 H Lab Interpretation (test code = Abnormal 60403-1) [facility] GLUCOSE (AUTOMATED)2023-02-11 02:06:48 Test Item Value Reference Range Interpretation Comments POCT GLU (test code = 9035838029) 322 mg/dL 70-110 H Lab Interpretation (test code = Abnormal 79265-3) [facility] A VIRUS ANTIBODY [id number] 01:41:36 Test Item Value Reference Range Interpretation Comments HAVM 0.01 Semi-Quantitative (test code = 47463-0) LOW (test code = HAVAb IgM Interpretative LOW) Information: Reactive greater than or equal to 1.2 Biotin has been reported to cause a negative bias, interpret results relative to patient's use of biotin. [facility] A AB, IGG AND [id number] 23:42:13 Test Item Value Reference Range Interpretation Comments HAV Total (test code = 0093060968) Negative HAVT Semi-Quantitative (test code = 1.49 5378474862) [facility] B SURFACE [id number] 23:42:13 Test Item Value Reference Range Interpretation Comments HBsAB (test code = Negative 3524088313) HBsAb 0.10 mIU/mL Semi-Quantitative (test code = 5899109423) LOW (test code = Interpretation: LOW) ?Hepatitis B Surface Antibody ? Negative - Patient is considered to be not immune to infection with HBV. ? ? Positive - Anti-HBs detected at greater than or equal to 12 mIU/mL. ?Patient is considered to be immune to infection with HBV. ? [facility] [id number] 23:42:13 Test Item Value Reference Range Interpretation Comments HCV Ab (test code = 84988-8) Negative HCV Semi-Quantitative (test code = 0.01 52027-6) [facility] [id number] 23:30:13 Test Item Value Reference Range Interpretation Comments HBCM 0.02 Semi-Quantitative (test code = 62735-7) LOW (test code = Biotin has been reported LOW) to cause a negative bias, interpret results relative to patient's use of biotin. [facility] GLUCOSE (AUTOMATED)2023-02-10 21:32:42 Test Item Value Reference Range Interpretation Comments POCT GLU (test code = 3885552280) 327 mg/dL 70-110 H Lab Interpretation (test code = Abnormal 55433-4) [facility] [id number] 19:57:53 Test Item Value Reference Range Interpretation Comments HBsAg Semi-Quantitative (test code = 0.07 Negative 5195-3) [facility] GLUCOSE (AUTOMATED)2023-02-10 17:21:48 Test Item Value Reference Range Interpretation Comments POCT GLU (test code = 2318419472) 308 mg/dL 70-110 H Lab Interpretation (test code = Abnormal 55133-0) [facility] GLUCOSE (AUTOMATED)2023-02-10 13:24:53 Test Item Value Reference Range Interpretation Comments POCT GLU (test code = 5799181615) 266 mg/dL 70-110 H Lab Interpretation (test code = Abnormal 12787-9) [facility] GLUCOSE (AUTOMATED)2023-02-10 08:48:41 Test Item Value Reference Range Interpretation Comments POCT GLU (test code = 8572366795) 270 mg/dL 70-110 H Lab Interpretation (test code = Abnormal 29508-8) [facility] GLUCOSE (AUTOMATED)2023-02-10 04:52:34 Test Item Value Reference Range Interpretation Comments POCT GLU (test code = 2568622082) 334 mg/dL 70-110 H Lab Interpretation (test code = Abnormal 06478-4) [facility] GLUCOSE (AUTOMATED)2023-02-10 01:13:46 Test Item Value Reference Range Interpretation Comments POCT GLU (test code = 8794855285) 372 mg/dL 70-110 H Lab Interpretation (test code = Abnormal 27825-2) [facility] GLUCOSE (AUTOMATED)2023-02-09 20:59:10 Test Item Value Reference Range Interpretation Comments POCT GLU (test code = 8801258453) 364 mg/dL 70-110 H Lab Interpretation (test code = Abnormal 10688-6) [facility] GLUCOSE (AUTOMATED)2023-02-09 16:50:31 Test Item Value Reference Range Interpretation Comments POCT GLU (test code = 9520734604) 356 mg/dL 70-110 H Lab Interpretation (test code = Abnormal 88174-6) [facility] GLUCOSE (AUTOMATED)2023-02-09 13:03:41 Test Item Value Reference Range Interpretation Comments POCT GLU (test code = 0838844038) 257 mg/dL 70-110 H Lab Interpretation (test code = Abnormal 61003-5) [facility] METABOLIC PANEL (NA, K, CL, CO2, GLUCOSE, BUN, CREATININE, CA)2023-02-09 11:02:51 Test Item Value Reference Range Interpretation Comments NA (test code = 135 mmol/L 135-145 5328146308) K (test code = 3.1 mmol/L 3.5-5.0 L 3810237431) CL (test code = 89 mmol/L 98-108 L 8752239466) CO2 TOTAL (test code = 39 mmol/L 23-31 H 3982691019) AGAP (test code = 7 2-16 8171504573) BUN (test code = 33 mg/dL 7-23 H 3047236928) GLUCOSE (test code = 290 mg/dL 70-110 H 0912819356) CREATININE (test code = 0.89 mg/dL 0.50-1.04 3425857641) CALCIUM (test code = 8.6 mg/dL 8.6-10.6 7322090587) eGFR (test code = 61.5 mL/min/1.73m2 3470072165) LOW (test code = LOW) Association of Glomerular Filtration Rate (GFR) and Staging of Kidney Disease* + --+ --+ ------+| GFR (mL/min/1.73 m2) ?| With Kidney Damage ?| ?Without Kidney Damage+ --------+ --------+ +| ?>90 ?| ?Stage one ?| ? Normal ?+ ---+ ---+ -------+| ?60-89 ?| ?Stage two ?| ? Decreased GFR ? + --+ --+ ------+| ?30-59 ?| ?Stage three ?| ? Stage three ? + --+ --+ ------+| ?15-29 ?| ?Stage four ? | ? Stage four ?+ ---+ ---+ -------+| ?<15 (or dialysis) ? ?| ?Stage five ? | ? Stage five ?+ ---+ ---+ -------+ *Each stage assumes the associated GFR level has been in effect for at least three months. ?Stages 1 to 5, with or without kidney disease, indicate chronic kidney disease. Notes: Determination of stages one and two (with eGFR >59mL/min/1.73 m2) requires estimation of kidney damage for at least three months as defined by structural or functional abnormalities of the kidney, manifested by either:Pathological abnormalities or Markers of kidney damage (including abnormalities in the composition of the blood or urine or abnormalities in imaging tests). Lab Interpretation Abnormal (test code = 77898-2) [facility] WITH [id number] 10:41:48 Test Item Value Reference Range Interpretation Comments WBC (test code = 10.89 See_Comment [Automated 3098-2) message] The sy stem which generated this result transmitted reference range : 4.30 - 11.10 10*3/?L. The reference range was not used to interpret this result as normal/abnormal . RBC (test code = 3.81 See_Comment L [Automated 579-0) message] The sy stem which generated this result transmitted reference range : 3.93 - 5.25 10*6/?L. The reference range was not used to interpret this result as normal/abnormal . HGB (test code = 9.3 g/dL 11.6-15.0 L 718-7) HCT (test code = 31.3 % 35.7-45.2 L 4544-3) MCV (test code = 82.2 fL 80.6-95.5 787-2) MCH (test code = 24.4 pg 25.9-32.8 L 785-6) MCHC (test code = 29.7 g/dL 31.6-35.1 L 786-4) RDW-SD (test code = 69.6 fL 39.0-49.9 H 55417-4) RDW-CV (test code = 24.5 % 12.0-15.5 H 788-0) PLT (test code = 244 See_Comment [Automated 777-3) message] The sy stem which generated this result transmitted reference range : 166 - 358 10*3/ ?L. The reference r federica was not used to interpret this result as normal/abnormal . MPV (test code = 9.9 fL 9.5-12.9 85970-1) NRBC/100 WBC (test 0.3 See_Comment [Automat ed code = 9380821113) message] The system which generated this result transmitted reference range : 0.0 - 10.0 /100 WBCs. The refer ence range was not u sed to interpret th is result as normal/abnormal . NRBC x10^3 (test code 0.03 See_Comment [Auto mated = 3049980253) message] The s ystem which generated this result transmitted reference range : 10*3/?L. The reference range was not used to interpret this result as normal/abnormal . GRAN MAT (NEUT) % 75.8 % (test code = 770-8) IMM GRAN % (test code 0.60 % = 9200159041) LYMPH % (test code = 14.4 % 736-9) MONO % (test code = 9.1 % 5905-5) EOS % (test code = 0.0 % 713-8) BASO % (test code = 0.1 % 706-2) GRAN MAT x10^3(ANC) 8.25 10*3/uL 1.88-7.09 H (test code = 3000663282) IMM GRAN x10^3 (test 0.07 10*3/uL 0.00-0.06 H code = 0449591857) LYMPH x10^3 (test code 1.57 10*3/uL 1.32-3.29 = 731-0) MONO x10^3 (test code 0.99 10*3/uL 0.33-0.92 H = 742-7) EOS x10^3 (test code = 0.03-0.39 L 711-2) BASO x10^3 (test code 0.01-0.07 = 704-7) Lab Interpretation Abnormal (test code = 57233-1) [facility] GLUCOSE (AUTOMATED)2023-02-09 09:47:04 Test Item Value Reference Range Interpretation Comments POCT GLU (test code = 6260491372) 307 mg/dL 70-110 H Lab Interpretation (test code = Abnormal 18472-3) [facility] GLUCOSE (AUTOMATED)2023-02-09 04:43:03 Test Item Value Reference Range Interpretation Comments POCT GLU (test code = 2678342361) 367 mg/dL 70-110 H Lab Interpretation (test code = Abnormal 53479-2) [facility] GLUCOSE (AUTOMATED)2023-02-09 01:18:56 Test Item Value Reference Range Interpretation Comments POCT GLU (test code = 4277590194) 411 mg/dL 70-110 H Lab Interpretation (test code = Abnormal 97421-7) [facility] [id number] 23:01:40 Test Item Value Reference Range Interpretation Comments Blood Culture-Aerobic No organisms No growth Previo us (test code = 02486-7) isolated prelim inary verified result was Culture In Progress on 02/03/2023 at 21 02 CDTPrevious preliminary verified result was No growth a t 24 hours on 02/04/2023 at 18 01 CDTPrevious preliminary verified result was No growth a t 48 hours on 02/05/2023 at 18 01 CDTPrevious preliminary verified result was No growth a t 72 hours on 02/06/2023 at 18 01 CDT Blood No organisms No growth Previous Culture-Anaerobic isolated preliminar y (test code = 89756-8) verifi ed result was Culture In Progress on 02/03/2023 at 21 02 CDTPrevious preliminary verified result was No growth a t 24 hours on 02/04/2023 at 18 01 CDTPrevious preliminary verified result was No growth a t 48 hours on 02/05/2023 at 18 01 CDTPrevious preliminary verified result was No growth a t 72 hours on 02/06/2023 at 18 01 CDT Lab Interpretation Normal (test code = 14977-8) [facility] [id number] 23:01:40 Test Item Value Reference Range Interpretation Comments Blood Culture-Aerobic No organisms No growth Previo us (test code = 52219-2) isolated prelim inary verified result was Culture In Progress on 02/03/2023 at 21 02 CDTPrevious preliminary verified result was No growth a t 24 hours on 02/04/2023 at 18 01 CDTPrevious preliminary verified result was No growth a t 48 hours on 02/05/2023 at 18 01 CDTPrevious preliminary verified result was No growth a t 72 hours on 02/06/2023 at 18 01 CDT Blood No organisms No growth Previous Culture-Anaerobic isolated preliminar y (test code = 01665-0) verifi ed result was Culture In Progress on 02/03/2023 at 21 02 CDTPrevious preliminary verified result was No growth a t 24 hours on 02/04/2023 at 18 01 CDTPrevious preliminary verified result was No growth a t 48 hours on 02/05/2023 at 18 01 CDTPrevious preliminary verified result was No growth a t 72 hours on 02/06/2023 at 18 01 CDT Lab Interpretation Normal (test code = 88343-5) [facility] GLUCOSE (AUTOMATED)2023-02-08 21:22:33 Test Item Value Reference Range Interpretation Comments POCT GLU (test code = 3685638512) 399 mg/dL 70-110 H Lab Interpretation (test code = Abnormal 37997-9) [facility] GLUCOSE (AUTOMATED)2023-02-08 16:34:35 Test Item Value Reference Range Interpretation Comments POCT GLU (test code = 1737299526) 422 mg/dL 70-110 H Lab Interpretation (test code = Abnormal 97194-3) [facility] GLUCOSE (AUTOMATED)2023-02-08 12:36:31 Test Item Value Reference Range Interpretation Comments POCT GLU (test code = 3735612443) 330 mg/dL 70-110 H Lab Interpretation (test code = Abnormal 35434-5) [facility] (NA, K, CL, CO2, GLUCOSE, BUN, CREATININE, CA)2023-02-08 11:16:59 Test Item Value Reference Range Interpretation Comments NA (test code = 135 mmol/L 135-145 4508350414) K (test code = 3.5 mmol/L 3.5-5.0 0378318223) CL (test code = 94 mmol/L 98-108 L 1129164654) CO2 TOTAL (test code = 28 mmol/L 23-31 7125999314) AGAP (test code = 13 2-16 7344138834) BUN (test code = 33 mg/dL 7-23 H 9404839358) GLUCOSE (test code = 325 mg/dL 70-110 H 8652240777) CREATININE (test code = 1.00 mg/dL 0.50-1.04 8552835997) CALCIUM (test code = 8.8 mg/dL 8.6-10.6 4081118396) eGFR (test code = 53.8 mL/min/1.73m2 7498190320) LOW (test code = LOW) Association of Glomerular Filtration Rate (GFR) and Staging of Kidney Disease* + --+ --+ ------+| GFR (mL/min/1.73 m2) ?| With Kidney Damage ?| ?Without Kidney Damage+ --------+ --------+ +| ?>90 ?| ?Stage one ?| ? Normal ?+ ---+ ---+ -------+| ?60-89 ?| ?Stage two ?| ? Decreased GFR ? + --+ --+ ------+| ?30-59 ?| ?Stage three ?| ? Stage three ? + --+ --+ ------+| ?15-29 ?| ?Stage four ? | ? Stage four ?+ ---+ ---+ -------+| ?<15 (or dialysis) ? ?| ?Stage five ? | ? Stage five ?+ ---+ ---+ -------+ *Each stage assumes the associated GFR level has been in effect for at least three months. ?Stages 1 to 5, with or without kidney disease, indicate chronic kidney disease. Notes: Determination of stages one and two (with eGFR >59mL/min/1.73 m2) requires estimation of kidney damage for at least three months as defined by structural or functional abnormalities of the kidney, manifested by either:Pathological abnormalities or Markers of kidney damage (including abnormalities in the composition of the blood or urine or abnormalities in imaging tests). Lab Interpretation Abnormal (test code = 20040-4) [facility] 11:08:02 Test Item Value Reference Range Interpretation Comments POCT GLU (test code = 1450087479) 337 mg/dL 70-110 H Lab Interpretation (test code = Abnormal 70452-0) [facility] WITH [id number] 10:54:55 Test Item Value Reference Range Interpretation Comments WBC (test code = 15.95 See_Comment H [Automated 6690-2) message] The system which generated this result transmit mars reference range : 4.30 - 11.10 10*3/?L. The reference range was not used to interpret this result as normal/abnormal . RBC (test code = 3.99 See_Comment [Automated 789-8) message] The system which generated this result transmit mars reference range : 3.93 - 5.25 10*6/?L. The reference range was not used to interpret this result as normal/abnormal . HGB (test code = 9.7 g/dL 11.6-15.0 L 718-7) HCT (test code = 32.5 % 35.7-45.2 L 4544-3) MCV (test code = 81.5 fL 80.6-95.5 787-2) MCH (test code = 24.3 pg 25.9-32.8 L 785-6) MCHC (test code = 29.8 g/dL 31.6-35.1 L 786-4) RDW-SD (test code = 67.8 fL 39.0-49.9 H 08841-4) RDW-CV (test code = 24.8 % 12.0-15.5 H 788-0) PLT (test code = 262 See_Comment [Automated 777-3) message] The system which generated this result transmit mars reference range : 166 - 358 10*3/ ?L. The reference range was not u sed to interpret th is result as normal/abnormal . MPV (test code = 10.3 fL 9.5-12.9 62789-9) NRBC/100 WBC (test 0.3 See_Comment [Automat ed code = [id number]) message] The system which generated this result transmit mars reference range : 0.0 - 10.0 /100 WBCs. The reference range was not used to interpret this result as normal/abnormal . NRBC x10^3 (test code 0.04 See_Comment [Auto mated = [id number]) message] The system which generated this result transmit mars reference range : 10*3/?L. The reference range was not used to interpret this result as normal/abnormal . GRAN MAT (NEUT) % 92.4 % (test code = 770-8) IMM GRAN % (test code 0.80 % = 9745411727) LYMPH % (test code = 3.4 % 736-9) MONO % (test code = 3.2 % 5905-5) EOS % (test code = 0.1 % 713-8) BASO % (test code = 0.1 % 706-2) GRAN MAT x10^3(ANC) 14.76 10*3/uL 1.88-7.09 H (test code = 3442030711) IMM GRAN x10^3 (test 0.12 10*3/uL 0.00-0.06 H code = 1423998387) LYMPH x10^3 (test code 0.54 10*3/uL 1.32-3.29 L = 731-0) MONO x10^3 (test code 0.51 10*3/uL 0.33-0.92 = 742-7) EOS x10^3 (test code = 0.03-0.39 L 711-2) BASO x10^3 (test code 0.01-0.07 = 704-7) Lab Interpretation Abnormal (test code = 73796-3) [facility] GLUCOSE (AUTOMATED)2023-02-08 05:44:57 Test Item Value Reference Range Interpretation Comments POCT GLU (test code = 2068043126) 337 mg/dL 70-110 H Lab Interpretation (test code = Abnormal 96898-5) [facility] GLUCOSE (AUTOMATED)2023-02-08 01:02:53 Test Item Value Reference Range Interpretation Comments POCT GLU (test code = 4590232650) 307 mg/dL 70-110 H Lab Interpretation (test code = Abnormal 30068-7) [facility] 21:04:59 Test Item Value Reference Range Interpretation Comments POCT GLU (test code = 1165546284) 301 mg/dL 70-110 H Lab Interpretation (test code = Abnormal 38544-5) [facility] 18:17:39 Test Item Value Reference Range Interpretation Comments Height (test code = 66 in 9721086552) Weight (test code = 205 lbs 9841949017) Systolic BP (test code 120 mmHg = 5254689728) Diastolic BP (test code 73 mmHg = 6490901659) Heart Rate (test code = 75 bpm 5999995076) LVOT stroke volume 48.20 cm3 (test code = 2257988298) EF(Teich) (test code = 52.90 % 4775041811) LVIDD (test code = 4.90 cm 3813446982) LVIDS (test code = 3.60 cm 3020490864) Left Ventricular End 53.7 mL Systolic Volume by Teichholz Method (test code = 2455498) Left Ventricular End 113.9 mL Diastolic Volume by Teichholz Method (test code = 7662829) IVS (test code = 1.07 cm 7480978490) LVPWD (test code = 1.11 cm 1217637223) LVOT diameter (test 2.03 cm code = 2435499583) LVOT area (test code = 3.20 cm2 0034368442) FS (test code = 27 % 1252326797) MV Peak E Rohini (test 123.1 cm/s code = 8758186476) MV Peak A Rohini (test 53.6 cm/s code = 4167442973) E/A ratio (test code = 2.30 ratio 9224039626) E wave decelartion time 0.24 s (test code = 1063640180) MV E/e' septal (test 9.5 cm/s code = 0038161898) LA volume (BP) (test 87.3 mL code = 7268486665) LVOT peak rohini (test 68.9 cm/s code = 6720640886) LVOT mn grad (test code 0.9 mmHg = 9335929376) Left Ventricular 3.5 L/min Cardiac Output (test code = 1594495) LA size (test code = 4.6 cm 3914382260) LAV(MOD-sp2) (test code 88.20 mL = 5897398591) LAV(MOD-sp4) (test code 76.50 mL = 6496902923) Tapse (test code = 1.47 cm 3180125598) AV LVOT peak gradient 1.90 mmHg (test code = 1178663699) LVOT peak VTI (test 14.9 cm code = 5122247787) Aortic HR (test code = 72.60 BPM 2749275603) LV V1 mean (test code = 44.70 cm/s 1413092783) MV Prop V (test code = 39.70 cm/s 4765998683) TR Peak Rohini (test code 292.5 cm/s = 6012180733) Triscuspid Valve 34.3 mmHg Regurgitation Peak Gradient (test code = 9197196817) Ao root diam (test code 3.40 cm = 2468524242) Aortic root (test code 3.4 cm = 9583374458) Ao root annulus (test 3.4 cm code = 0888753424) PW (test code = 1.11 cm 0.6-1.4 7054821042) EF - 2D (test code = 52.90 % 65475325) Interventricular Septum 1.07 cm Diastolic Thickness by 2D (test code = 6855109) LA Volume Index (BP) 43.2 mL/m2 (test code = 4825483875) BSA (test code = 2.02 m2 0976492163) Aortic valve mean 97.0 cm/s velocity (test code = 5155485835) Ao peak rohini (test code 162.1 cm/s = 9309028601) Ao VTI (test code = 25.6 cm 6492391569) AV area by cont VTI 1.9 cm2 (test code = 0787892960) AV area peak rohini (test 1.4 cm2 code = 9431521092) Ao max PG (test code = 10.50 mm[Hg] 7449260673) AV peak gradient (test 10.5 mmHg code = 3918592138) AV valve area (test 1.88 cm2 code = 3493237269) AV mean gradient (test 4.6 mmHg code = 3703200998) Radiology Study observation (narrative) (test code = 67235-2) LOW (test code = LOW) ?Left?Ventricle: Left ventricle size is normal. Mildly increased wall thickness. There is mild concentric hypertrophy. Septal motion is consistent with bundle branch block. See diagram for wall motion findings. Mildly reduced systolic function with a visually estimated EF of 40 - 45%. There is grade 2 diastolic dysfunction. Elevated left ventricular filling pressure. ?Right?Ventricle: Right ventricle is mildly dilated. Mildly reduced systolic function. TAPSE is 1.47 cm. TDI S' is 9.6 cm/sec. ?Left?Atrium: Left atrium is moderately dilated. Left atrium volume index is 43.2 mL/m2. ?Aortic?Valve: Mild transvalvular regurgitation. Consistent with mild aortic stenosis. LVOT diameter is 2.03 cm. AV area by continuity VTI is 1.9 cm2. ?Tricuspid?Valve: Mild transvalvular regurgitation. There is moderate pulmonary hypertension. ?Right ventricular systolic pressure is 50-55 mmHg. ?IVC/SVC: IVC diameter is greater than 21 mm and decreases less than 50% during inspiration; therefore the estimated right atrial pressure is elevated (~15 mmHg). ?Pericardium: Trivial localized pericardial effusion present around the posterior left ventricle. Left VentricleLeft ventricle size is normal. Mildly increased wall thickness. There is mild concentric hypertrophy. Septal motion is consistent with bundle branch block. See diagram for wall motion findings. Mildly reduced systolic function with a visually estimated EF of 40 - 45%. There is grade 2 diastolic dysfunction. Elevated left ventricular filling pressure.Right VentricleRight ventricle is mildly dilated. Mildly reduced systolic function. TAPSE is 1.47 cm. TDI S' is 9.6 cm/sec. Echocardiographic features suggestive of moderator band.Left AtriumLeft atrium is moderately dilated. Left atrium volume index is 43.2 mL/m2.Right AtriumNot well visualized. Right atrium size is normal.IVC/SVCIVC diameter is greater than 21 mm and decreases less than 50% during inspiration; therefore the estimated right atrial pressure is elevated (~15 mmHg).Mitral ValveMitral valve structure is normal. Mildly thickened leaflets. Mildly calcified leaflets. Mild mitral annular calcification. Trace transvalvular regurgitation. No stenosis.Tricuspid ValveTricuspid valve structure is normal. Mild transvalvular regurgitation. There is moderate pulmonary hypertension. Right ventricular systolic pressure is 50-55 mmHg. No stenosis.Aortic ValveTricuspid. Mildly thickened cusps. Mildly calcified cusps. Moderate annular calcification. Mild transvalvular regurgitation. Consistent with mild aortic stenosis. LVOT diameter is 2.03 cm. AV area by continuity VTI is 1.9 cm2.Pulmonic ValveNot well visualized. Trace transvalvular regurgitation. No stenosis.Ascending AortaNot well visualized.PericardiumE vidence of epicardial fat. Trivial localized pericardial effusion present around the posterior left ventricle.Study DetailsStudy quality was adequate. A complete echocardiogram was performed using 2D, color flow Doppler and spectral Doppler. Patient exhibited sinus rhythm.Wall Scoring BaselineScore Index: 1.29The following segments are hypokinetic: mid anteroseptal, mid inferoseptal, apical septal, apical lateral and apex.All other segments are normal. [facility] [id number] 17:44:53 Test Item Value Reference Range Interpretation Comments TROPONIN I (test code = 0.226 ng/mL <=0.034 H 2367058135) LOW (test code = LOW) Reference (Normal) Range (defined by the 99th percentile reference limit): <= 0.034 ng/mL Note: Cardiac troponin begins to rise 3-4 hours after the onset of ischemia. Repeat in 4-6 hours if the sample was drawn within 3-4 hours of the onset of the symptom and found normal. Diagnosis of myocardial injury is made with acute changes in cTn concentrations with at least one serial sample above the 99th percentile upper reference limit (URL), taken together with the patient's clinical presentation. Biotin has been reported to cause a negative bias, interpret results relative to patient's use of biotin. Lab Interpretation Abnormal (test code = 60458-7) [facility] (NA, K, CL, CO2, GLUCOSE, BUN, CREATININE, CA)2023-02-07 17:34:54 Test Item Value Reference Range Interpretation Comments NA (test code = 140 mmol/L 135-145 3990507496) K (test code = 3.9 mmol/L 3.5-5.0 6973591490) CL (test code = 98 mmol/L 98-108 7029275739) CO2 TOTAL (test code = 33 mmol/L 23-31 H 1017896225) AGAP (test code = 9 2-16 9534911229) BUN (test code = 30 mg/dL 7-23 H 9439893658) GLUCOSE (test code = 285 mg/dL 70-110 H 2468739442) CREATININE (test code = 1.08 mg/dL 0.50-1.04 H 1714020636) CALCIUM (test code = 8.8 mg/dL 8.6-10.6 3648461059) eGFR (test code = 49.2 mL/min/1.73m2 8006311648) LOW (test code = LOW) Association of Glomerular Filtration Rate (GFR) and Staging of Kidney Disease* + --+ --+ ------+| GFR (mL/min/1.73 m2) ?| With Kidney Damage ?| ?Without Kidney Damage+ --------+ --------+ +| ?>90 ?| ?Stage one ?| ? Normal ?+ ---+ ---+ -------+| ?60-89 ?| ?Stage two ?| ? Decreased GFR ? + --+ --+ ------+| ?30-59 ?| ?Stage three ?| ? Stage three ? + --+ --+ ------+| ?15-29 ?| ?Stage four ? | ? Stage four ?+ ---+ ---+ -------+| ?<15 (or dialysis) ? ?| ?Stage five ? | ? Stage five ?+ ---+ ---+ -------+ *Each stage assumes the associated GFR level has been in effect for at least three months. ?Stages 1 to 5, with or without kidney disease, indicate chronic kidney disease. Notes: Determination of stages one and two (with eGFR >59mL/min/1.73 m2) requires estimation of kidney damage for at least three months as defined by structural or functional abnormalities of the kidney, manifested by either:Pathological abnormalities or Markers of kidney damage (including abnormalities in the composition of the blood or urine or abnormalities in imaging tests). Lab Interpretation Abnormal (test code = 48369-5) [facility] Test Item Value Reference Range Interpretation Comments MAGNESIUM (test code = 2757408834) 1.9 mg/dL 1.7-2.4 Lab Interpretation (test code = Normal 97199-3) [facility] WITH [id number] 17:26:54 Test Item Value Reference Range Interpretation Comments WBC (test code = 11.17 See_Comment H [Automated 6690-2) message] The system which generated this result transmit mars reference range : 4.30 - 11.10 10*3/?L. The reference range was not used to interpret this result as normal/abnormal . RBC (test code = 3.91 See_Comment L [Automated 789-8) message] The system which generated this result transmit mars reference range : 3.93 - 5.25 10*6/?L. The reference range was not used to interpret this result as normal/abnormal . HGB (test code = 9.5 g/dL 11.6-15.0 L 718-7) HCT (test code = 31.9 % 35.7-45.2 L 4544-3) MCV (test code = 81.6 fL 80.6-95.5 787-2) MCH (test code = 24.3 pg 25.9-32.8 L 785-6) MCHC (test code = 29.8 g/dL 31.6-35.1 L 786-4) RDW-SD (test code = 65.7 fL 39.0-49.9 H 87367-9) RDW-CV (test code = 24.3 % 12.0-15.5 H 788-0) PLT (test code = 252 See_Comment [Automated 777-3) message] The system which generated this result transmit mars reference range : 166 - 358 10*3/ ?L. The reference range was not u sed to interpret th is result as normal/abnormal . MPV (test code = 10.0 fL 9.5-12.9 63069-2) NRBC/100 WBC (test 0.2 See_Comment [Automat ed code = 3534164423) message] The system which generated this result transmit mars reference range : 0.0 - 10.0 /100 WBCs. The reference range was not used to interpret this result as normal/abnormal . NRBC x10^3 (test code 0.02 See_Comment [Auto mated = 8891833002) message] The system which generated this result transmit mars reference range : 10*3/?L. The reference range was not used to interpret this result as normal/abnormal . GRAN MAT (NEUT) % 91.7 % (test code = 770-8) IMM GRAN % (test code 0.50 % = 3479980628) LYMPH % (test code = 4.3 % 736-9) MONO % (test code = 3.4 % 5905-5) EOS % (test code = 0.0 % 713-8) BASO % (test code = 0.1 % 706-2) GRAN MAT x10^3(ANC) 10.24 10*3/uL 1.88-7.09 H (test code = 6997890363) IMM GRAN x10^3 (test 0.06 10*3/uL 0.00-0.06 code = 7137447035) LYMPH x10^3 (test code 0.48 10*3/uL 1.32-3.29 L = 731-0) MONO x10^3 (test code 0.38 10*3/uL 0.33-0.92 = 742-7) EOS x10^3 (test code = 0.03-0.39 L 711-2) BASO x10^3 (test code 0.01-0.07 = 704-7) Lab Interpretation Abnormal (test code = 35148-9) [facility] GLUCOSE (AUTOMATED)2023-02-07 16:44:05 Test Item Value Reference Range Interpretation Comments POCT GLU (test code = 3737452408) 281 mg/dL 70-110 H Lab Interpretation (test code = Abnormal 07179-2) [facility] GLUCOSE (AUTOMATED)2023-02-07 12:28:58 Test Item Value Reference Range Interpretation Comments POCT GLU (test code = 4663192754) 266 mg/dL 70-110 H Lab Interpretation (test code = Abnormal 87004-2) [id number]55[facility]36 Test Item Value Reference Range Interpretation Comments TROPONIN I (test code = 0.295 ng/mL <=0.034 H 0268013731) LOW (test code = LOW) Reference (Normal) Range (defined by the 99th percentile reference limit): <= 0.034 ng/mL Note: Cardiac troponin begins to rise 3-4 hours after the onset of ischemia. Repeat in 4-6 hours if the sample was drawn within 3-4 hours of the onset of the symptom and found normal. Diagnosis of myocardial injury is made with acute changes in cTn concentrations with at least one serial sample above the 99th percentile upper reference limit (URL), taken together with the patient's clinical presentation. Biotin has been reported to cause a negative bias, interpret results relative to patient's use of biotin. Lab Interpretation Abnormal (test code = 84529-3) [facility]23-02-07 09:39:18 Test Item Value Reference Range Interpretation Comments POCT GLU (test code = 9997535586) 257 mg/dL 70-110 H Lab Interpretation (test code = Abnormal 45957-8) [facility] [id number] 05:34:20 Test Item Value Reference Range Interpretation Comments TROPONIN I (test code = 0.437 ng/mL <=0.034 H 2686987792) LOW (test code = LOW) Reference (Normal) Range (defined by the 99th percentile reference limit): <= 0.034 ng/mL Note: Cardiac troponin begins to rise 3-4 hours after the onset of ischemia. Repeat in 4-6 hours if the sample was drawn within 3-4 hours of the onset of the symptom and found normal. Diagnosis of myocardial injury is made with acute changes in cTn concentrations with at least one serial sample above the 99th percentile upper reference limit (URL), taken together with the patient's clinical presentation. Biotin has been reported to cause a negative bias, interpret results relative to patient's use of biotin. Lab Interpretation Abnormal (test code = 66793-9) [facility] (NA, K, CL, CO2, GLUCOSE, BUN, CREATININE, CA)2023-02-07 05:23:38 Test Item Value Reference Range Interpretation Comments NA (test code = 139 mmol/L 135-145 2610646610) K (test code = 4.2 mmol/L 3.5-5.0 8977615298) CL (test code = 98 mmol/L 98-108 7601541508) CO2 TOTAL (test code = 31 mmol/L 23-31 8984814637) AGAP (test code = 10 2-16 9368843816) BUN (test code = 23 mg/dL 7- 0275206178) GLUCOSE (test code = 246 mg/dL 70-110 H 4327882749) CREATININE (test code = 0.85 mg/dL 0.50-1.04 9818735501) CALCIUM (test code = 8.7 mg/dL 8.6-10.6 2597856572) eGFR (test code = 64.9 mL/min/1.73m2 7757907418) LOW (test code = LOW) Association of Glomerular Filtration Rate (GFR) and Staging of Kidney Disease* + --+ --+ ------+| GFR (mL/min/1.73 m2) ?| With Kidney Damage ?| ?Without Kidney Damage+ --------+ --------+ +| ?>90 ?| ?Stage one ?| ? Normal ?+ ---+ ---+ -------+| ?60-89 ?| ?Stage two ?| ? Decreased GFR ? + --+ --+ ------+| ?30-59 ?| ?Stage three ?| ? Stage three ? + --+ --+ ------+| ?15-29 ?| ?Stage four ? | ? Stage four ?+ ---+ ---+ -------+| ?<15 (or dialysis) ? ?| ?Stage five ? | ? Stage five ?+ ---+ ---+ -------+ *Each stage assumes the associated GFR level has been in effect for at least three months. ?Stages 1 to 5, with or without kidney disease, indicate chronic kidney disease. Notes: Determination of stages one and two (with eGFR >59mL/min/1.73 m2) requires estimation of kidney damage for at least three months as defined by structural or functional abnormalities of the kidney, manifested by either:Pathological abnormalities or Markers of kidney damage (including abnormalities in the composition of the blood or urine or abnormalities in imaging tests). Lab Interpretation Abnormal (test code = 54793-6) [facility] Test Item Value Reference Range Interpretation Comments MAGNESIUM (test code = 2874988934) 1.3 mg/dL 1.7-2.4 L Lab Interpretation (test code = Abnormal 96983-3) [facility] 05:23:38 Test Item Value Reference Range Interpretation Comments PHOSPHORUS (test code = 9884822855) 3.5 mg/dL 2.5-5.0 Lab Interpretation (test code = Normal 24348-5) [facility]CBC WITHOUT [id number] 05:04:53 Test Item Value Reference Range Interpretation Comments WBC (test code = 6690-2) 9.26 See_Comment [A utomated message] The system [employer] generated this result transmit mars reference range : 4.30 - 11.10 10*3/?L. The reference range was not used to interpret this result as normal/abnormal . RBC (test code = 789-8) 3.78 See_Comment L [Au tomated message] The system [employer] generated this result transmit mars reference range : 3.93 - 5.25 10* 6/?L. The reference r federica was not used to interpret this result as normal/abnormal . HGB (test code = 718-7) 9.3 g/dL 11.6-15.0 L HCT (test code = 4544-3) 31.0 % 35.7-45.2 L MCH (test code = 785-6) 24.6 pg 25.9-32.8 L MCV (test code = 787-2) 82.0 fL 80.6-95.5 MCHC (test code = 786-4) 30.0 g/dL 31.6-35.1 L PLT (test code = 777-3) 245 See_Comment [Au tomated message] The system [employer] generated this result transmit mars reference range : 166 - 358 10*3/?L. The reference range was not used to interpret this result as normal/abnormal . MPV (test code = 9.7 fL 9.5-12.9 00518-8) RDW-CV (test code = 23.7 % 12.0-15.5 H 788-0) RDW-SD (test code = 63.2 fL 39.0-49.9 H 60220-6) NRBC x10^3 (test code = 0.05 See_Comment [Au tomated message] 9467083437) The system [employer] generated this result transmit mars reference range : 10*3/?L. The reference range was not used to interpret this result as normal/abnormal . NRBC/100 WBC (test code 0.5 See_Comment [Au tomated message] = 7882336531) The system [employer] generated this result transmit mars reference range : 0.0 - 10.0 /100 WBC s. The reference r federica was not used to interpret this result as normal/abnormal . IPF % (test code = 1078307566) Lab Interpretation (test Abnormal code = 21274-3) [facility] GLUCOSE (AUTOMATED)2023-02-07 04:56:31 Test Item Value Reference Range Interpretation Comments POCT GLU (test code = 4522969064) 225 mg/dL 70-110 H Lab Interpretation (test code = Abnormal 57102-1) [facility] GLUCOSE (AUTOMATED)2023-02-07 00:52:59 Test Item Value Reference Range Interpretation Comments POCT GLU (test code = 0663342612) 267 mg/dL 70-110 H Lab Interpretation (test code = Abnormal 46836-5) [facility] [id number] 23:45:26 Test Item Value Reference Range Interpretation Comments TROPONIN I (test code = 0.379 ng/mL <=0.034 H 8536419375) LOW (test code = LOW) Reference (Normal) Range (defined by the 99th percentile reference limit): <= 0.034 ng/mL Note: Cardiac troponin begins to rise 3-4 hours after the onset of ischemia. Repeat in 4-6 hours if the sample was drawn within 3-4 hours of the onset of the symptom and found normal. Diagnosis of myocardial injury is made with acute changes in cTn concentrations with at least one serial sample above the 99th percentile upper reference limit (URL), taken together with the patient's clinical presentation. Biotin has been reported to cause a negative bias, interpret results relative to patient's use of biotin. Lab Interpretation Abnormal (test code = 00520-0) [facility] GLUCOSE (AUTOMATED)2023-02-06 21:24:59 Test Item Value Reference Range Interpretation Comments POCT GLU (test code = 8195970977) 258 mg/dL 70-110 H Lab Interpretation (test code = Abnormal 62165-3) [facility] GLUCOSE (AUTOMATED)2023-02-06 17:38:25 Test Item Value Reference Range Interpretation Comments POCT GLU (test code = 8040190295) 249 mg/dL 70-110 H Lab Interpretation (test code = Abnormal 96198-5) [facility] [id number] 14:55:40 Test Item Value Reference Range Interpretation Comments NT-proBNP (test code = 18087 pg/mL <=125 H 59028-5) LOW (test code = LOW) Positive: Heart Failure Likely Lab Interpretation (test Abnormal code = 68623-1) [facility] [id number] 14:55:40 Test Item Value Reference Range Interpretation Comments NT-proBNP (test code = 06886 pg/mL <=125 H 73162-9) LOW (test code = LOW) Positive: Heart Failure Likely Lab Interpretation (test Abnormal code = 27071-8) [facility] GLUCOSE (AUTOMATED)2023-02-06 13:11:26 Test Item Value Reference Range Interpretation Comments POCT GLU (test code = 8615970216) 244 mg/dL 70-110 H Lab Interpretation (test code = Abnormal 45803-6) [facility] GLUCOSE (AUTOMATED)2023-02-06 13:11:26 Test Item Value Reference Range Interpretation Comments POCT GLU (test code = 7931619789) 244 mg/dL 70-110 H Lab Interpretation (test code = Abnormal 24974-2) [facility] + Lactic [id number] 06:31:17 Test Item Value Reference Range Interpretation Comments PH (test code = 2) 7.38 7.35-7.45 PCO2 (test code = 43 See_Comment [Automate d 2323656351) message] The sy stem which generated this result transmitted reference range : 35 - 45 mmHg. The reference range was not used to interpret this result as normal/abnormal . PO2 (test code = 50 See_Comment L [Automated 5285771773) message] The sy stem which generated this result transmitted reference range : 80 - 100 mmHg. The reference range was not used to interpret this result as normal/abnormal . HCO3 (test code = 25 See_Comment [Automate d 2887177319) message] The sy stem which generated this result transmitted reference range : 22 - 26 mEq/L. The reference range was not used to interpret this result as normal/abnormal . BE (test code = -0.7 See_Comment [Automated 1442405979) message] The sy stem which generated this result transmitted reference range : -3.0 - 3.0 mEq/ L. The reference r federica was not used to interpret this result as normal/abnormal . THB (test code = 10.7 g/dL 12.0-16.0 L 7886811964) %O2HB (test code = 84.8 % 94.0-99.0 L 3751924858) %COHB ART (test code = 0.4 % 0.0-1.5 7629248593) %METHB ART (test code = 0.5 % 0.4-1.5 4153444085) VOL%O2 ART (test code = 12.8 % 15.0-23.0 L 9376004862) NA (test code = 140 mmol/L 135-145 0466553493) K+ (test code = 4.8 mmol/L 3.5-5.0 7647250798) AC CA IONZ (test code = 5.00 mg/dL 4.50-5.30 8439871841) GLUCOSE (test code = 175 mg/dL 70-110 H 5623445494) LACTIC ACID (test code 1.87 mmol/L 0.50-2.20 = 5197943856) Lab Interpretation Abnormal (test code = 30512-0) [facility] L[facility] [id number] 06:31:17 Test Item Value Reference Range Interpretation Comments PH (test code = 2) 7.38 7.35-7.45 PCO2 (test code = 43 See_Comment [Automate d 9678232104) message] The sy stem which generated this result transmitted reference range : 35 - 45 mmHg. The reference range was not used to interpret this result as normal/abnormal . PO2 (test code = 50 See_Comment L [Automated 5028819568) message] The sy stem which generated this result transmitted reference range : 80 - 100 mmHg. The reference range was not used to interpret this result as normal/abnormal . HCO3 (test code = 25 See_Comment [Automate d 9292745407) message] The sy stem which generated this result transmitted reference range : 22 - 26 mEq/L. The reference range was not used to interpret this result as normal/abnormal . BE (test code = -0.7 See_Comment [Automated 6113557806) message] The sy stem which generated this result transmitted reference range : -3.0 - 3.0 mEq/ L. The reference r federica was not used to interpret this result as normal/abnormal . THB (test code = 10.7 g/dL 12.0-16.0 L 7052155672) %O2HB (test code = 84.8 % 94.0-99.0 L 0100416342) %COHB ART (test code = 0.4 % 0.0-1.5 7211037736) %METHB ART (test code = 0.5 % 0.4-1.5 9290423598) VOL%O2 ART (test code = 12.8 % 15.0-23.0 L 5868950480) NA (test code = 140 mmol/L 135-145 3538057785) K+ (test code = 4.8 mmol/L 3.5-5.0 1432923890) AC CA IONZ (test code = 5.00 mg/dL 4.50-5.30 4748366211) GLUCOSE (test code = 175 mg/dL 70-110 H 7028588196) LACTIC ACID (test code 1.87 mmol/L 0.50-2.20 = 5928856505) Lab Interpretation Abnormal (test code = 54487-8) [facility] GLUCOSE (AUTOMATED)2023-02-06 05:35:42 Test Item Value Reference Range Interpretation Comments POCT GLU (test code = 7332706448) 176 mg/dL 70-110 H Lab Interpretation (test code = Abnormal 84765-1) [facility] GLUCOSE (AUTOMATED)2023-02-06 02:02:51 Test Item Value Reference Range Interpretation Comments POCT GLU (test code = 0476261080) 181 mg/dL 70-110 H Lab Interpretation (test code = Abnormal 25282-4) [facility] GLUCOSE (AUTOMATED)2023-02-05 22:51:35 Test Item Value Reference Range Interpretation Comments POCT GLU (test code = 4526984743) 167 mg/dL 70-110 H Lab Interpretation (test code = Abnormal 14241-6) [facility] GLUCOSE (AUTOMATED)2023-02-05 17:17:43 Test Item Value Reference Range Interpretation Comments POCT GLU (test code = 1986683935) 171 mg/dL 70-110 H Lab Interpretation (test code = Abnormal 49899-9) [facility] GLUCOSE (AUTOMATED)2023-02-05 13:33:07 Test Item Value Reference Range Interpretation Comments POCT GLU (test code = 6707614577) 207 mg/dL 70-110 H Lab Interpretation (test code = Abnormal 87657-7) [facility] GLUCOSE (AUTOMATED)2023-02-05 09:34:22 Test Item Value Reference Range Interpretation Comments POCT GLU (test code = 1121534896) 159 mg/dL 70-110 H Lab Interpretation (test code = Abnormal 45653-6) [facility] GLUCOSE (AUTOMATED)2023-02-05 04:19:01 Test Item Value Reference Range Interpretation Comments POCT GLU (test code = 7276232870) 219 mg/dL 70-110 H Lab Interpretation (test code = Abnormal 80794-1) [facility] GLUCOSE (AUTOMATED)2023-02-05 02:04:20 Test Item Value Reference Range Interpretation Comments POCT GLU (test code = 0603235670) 243 mg/dL 70-110 H Lab Interpretation (test code = Abnormal 91590-7) [facility] GLUCOSE (AUTOMATED)2023-02-04 21:32:12 Test Item Value Reference Range Interpretation Comments POCT GLU (test code = 7388832312) 192 mg/dL 70-110 H Lab Interpretation (test code = Abnormal 00108-8) [facility] GLUCOSE (AUTOMATED)2023-02-04 16:41:55 Test Item Value Reference Range Interpretation Comments POCT GLU (test code = 5868002169) 186 mg/dL 70-110 H Lab Interpretation (test code = Abnormal 85566-3) [facility] GLUCOSE (AUTOMATED)2023-02-04 13:02:49 Test Item Value Reference Range Interpretation Comments POCT GLU (test code = 2344847304) 120 mg/dL 70-110 H Lab Interpretation (test code = Abnormal 46300-6) [facility] ABG + LACTIC [id number] 12:48:14 Test Item Value Reference Range Interpretation Comments PH (test code = 2) 7.39 7.35-7.45 PCO2 (test code = 38 See_Comment [Automate d 9770268839) message] The sy stem which generated this result transmitted reference range : 35 - 45 mmHg. The reference range was not used to interpret this result as normal/abnormal . PO2 (test code = 141 See_Comment H [Automated 9101146469) message] The sy stem which generated this result transmitted reference range : 80 - 100 mmHg. The reference range was not used to interpret this result as normal/abnormal . HCO3 (test code = 22 See_Comment [Automate d 4048668979) message] The sy stem which generated this result transmitted reference range : 22 - 26 mEq/L. The reference range was not used to interpret this result as normal/abnormal . BE (test code = -2.2 See_Comment [Automated 8586596120) message] The sy stem which generated this result transmitted reference range : -3.0 - 3.0 mEq/ L. The reference r federica was not used to interpret this result as normal/abnormal . LACTIC ACID (test code 1.35 mmol/L 0.50-2.20 COOXE RR = 5771741026) Lab Interpretation Abnormal (test code = 54846-3) [facility] ABG + LACTIC [id number] 12:48:14 Test Item Value Reference Range Interpretation Comments PH (test code = 2) 7.39 7.35-7.45 PCO2 (test code = 38 See_Comment [Automate d 3159878883) message] The sy stem which generated this result transmitted reference range : 35 - 45 mmHg. The reference range was not used to interpret this result as normal/abnormal . PO2 (test code = 141 See_Comment H [Automated 9411553830) message] The sy stem which generated this result transmitted reference range : 80 - 100 mmHg. The reference range was not used to interpret this result as normal/abnormal . HCO3 (test code = 22 See_Comment [Automate d 6366032902) message] The sy stem which generated this result transmitted reference range : 22 - 26 mEq/L. The reference range was not used to interpret this result as normal/abnormal . BE (test code = -2.2 See_Comment [Automated 0259890642) message] The sy stem which generated this result transmitted reference range : -3.0 - 3.0 mEq/ L. The reference r federica was not used to interpret this result as normal/abnormal . LACTIC ACID (test code 1.35 mmol/L 0.50-2.20 COOXE RR = 0818982533) Lab Interpretation Abnormal (test code = 97681-1) [facility]th[facility] / [id number] 12:12:14 Test Item Value Reference Range Interpretation Comments PROTIME PATIENT (test 18.7 See_Comment H [Auto mated message] code = 5964-2) The system wh ich generated this result transmitted ref erence range: 10.1 - 1 2.6 Seconds. The reference range was not used to int erpret this result as normal/abnormal . INR (test code = 6301-6) 1.6 Nor mal INR <1.1; Warfarin Therap eutic range 2.0 to 3. 0 or 2.5 to 3.5, dep ending upon the indica tions. Lab Interpretation (test Abnormal code = 64566-6) [facility] 10:20:25 Test Item Value Reference Range Interpretation Comments PHOSPHORUS (test code = 5335019365) 4.9 mg/dL 2.5-5.0 Lab Interpretation (test code = Normal 88453-3) [facility] (NA, K, CL, CO2, GLUCOSE, BUN, CREATININE, CA)2023-02-04 10:20:25 Test Item Value Reference Range Interpretation Comments NA (test code = 136 mmol/L 135-145 6927726273) K (test code = 4.9 mmol/L 3.5-5.0 5664321191) CL (test code = 104 mmol/L 98-108 9122899340) CO2 TOTAL (test code = 22 mmol/L 23-31 L 7626086817) AGAP (test code = 10 2-16 6305889118) BUN (test code = 44 mg/dL 7-23 H 5456028026) GLUCOSE (test code = 101 mg/dL 70-110 3611959111) CREATININE (test code = 1.41 mg/dL 0.50-1.04 H 9124875884) CALCIUM (test code = 8.2 mg/dL 8.6-10.6 L 8628898738) eGFR (test code = 36.2 mL/min/1.73m2 6112858013) LOW (test code = LOW) Association of Glomerular Filtration Rate (GFR) and Staging of Kidney Disease* + --+ --+ ------+| GFR (mL/min/1.73 m2) ?| With Kidney Damage ?| ?Without Kidney Damage+ --------+ --------+ +| ?>90 ?| ?Stage one ?| ? Normal ?+ ---+ ---+ -------+| ?60-89 ?| ?Stage two ?| ? Decreased GFR ? + --+ --+ ------+| ?30-59 ?| ?Stage three ?| ? Stage three ? + --+ --+ ------+| ?15-29 ?| ?Stage four ? | ? Stage four ?+ ---+ ---+ -------+| ?<15 (or dialysis) ? ?| ?Stage five ? | ? Stage five ?+ ---+ ---+ -------+ *Each stage assumes the associated GFR level has been in effect for at least three months. ?Stages 1 to 5, with or without kidney disease, indicate chronic kidney disease. Notes: Determination of stages one and two (with eGFR >59mL/min/1.73 m2) requires estimation of kidney damage for at least three months as defined by structural or functional abnormalities of the kidney, manifested by either:Pathological abnormalities or Markers of kidney damage (including abnormalities in the composition of the blood or urine or abnormalities in imaging tests). Lab Interpretation Abnormal (test code = 01047-0) [facility] 10:20:25 Test Item Value Reference Range Interpretation Comments MAGNESIUM (test code = 1576815701) 1.9 mg/dL 1.7-2.4 Lab Interpretation (test code = Normal 28358-0) [facility] 10:20:25 Test Item Value Reference Range Interpretation Comments PHOSPHORUS (test code = 4650940484) 4.9 mg/dL 2.5-5.0 Lab Interpretation (test code = Normal 04034-5) [facility] WITH [id number] 09:57:00 Test Item Value Reference Range Interpretation Comments WBC (test code = 12.22 See_Comment H [Automated 6690-2) message] The sy stem which generated this result transmitted reference range : 4.30 - 11.10 10*3/?L. The reference range was not used to interpret this result as normal/abnormal . RBC (test code = 3.17 See_Comment L [Automated 789-8) message] The sy stem which generated this result transmitted reference range : 3.93 - 5.25 10*6/?L. The reference range was not used to interpret this result as normal/abnormal . HGB (test code = 7.6 g/dL 11.6-15.0 L 718-7) HCT (test code = 25.5 % 35.7-45.2 L 4544-3) MCV (test code = 80.4 fL 80.6-95.5 L 787-2) MCH (test code = 24.0 pg 25.9-32.8 L 785-6) MCHC (test code = 29.8 g/dL 31.6-35.1 L 786-4) RDW-SD (test code = 57.3 fL 39.0-49.9 H 20804-7) RDW-CV (test code = 19.6 % 12.0-15.5 H 788-0) PLT (test code = 257 See_Comment [Automated 777-3) message] The sy stem which generated this result transmitted reference range : 166 - 358 10*3/ ?L. The reference r federica was not used to interpret this result as normal/abnormal . MPV (test code = 10.4 fL 9.5-12.9 40772-4) NRBC/100 WBC (test 0.7 See_Comment [Automat ed code = 3042514555) message] The system which generated this result transmitted reference range : 0.0 - 10.0 /100 WBCs. The refer ence range was not u sed to interpret th is result as normal/abnormal . NRBC x10^3 (test code 0.09 See_Comment [Auto mated = 8892180461) message] The s ystem which generated this result transmitted reference range : 10*3/?L. The reference range was not used to interpret this result as normal/abnormal . GRAN MAT (NEUT) % 80.6 % (test code = 770-8) IMM GRAN % (test code 0.90 % = 6313251739) LYMPH % (test code = 10.2 % 736-9) MONO % (test code = 7.6 % 5905-5) EOS % (test code = 0.3 % 713-8) BASO % (test code = 0.4 % 706-2) GRAN MAT x10^3(ANC) 9.84 10*3/uL 1.88-7.09 H (test code = 9680540879) IMM GRAN x10^3 (test 0.11 10*3/uL 0.00-0.06 H code = 3250651358) LYMPH x10^3 (test code 1.25 10*3/uL 1.32-3.29 L = 731-0) MONO x10^3 (test code 0.93 10*3/uL 0.33-0.92 H = 742-7) EOS x10^3 (test code = 0.04 10*3/uL 0.03-0.39 711-2) BASO x10^3 (test code 0.05 10*3/uL 0.01-0.07 = 704-7) Lab Interpretation Abnormal (test code = 48385-5) [facility] GLUCOSE (AUTOMATED)2023-02-04 09:20:35 Test Item Value Reference Range Interpretation Comments POCT GLU (test code = 0672421493) 111 mg/dL 70-110 H Lab Interpretation (test code = Abnormal 43508-1) [facility] GLUCOSE (AUTOMATED)2023-02-04 03:57:37 Test Item Value Reference Range Interpretation Comments POCT GLU (test code = 1588934566) 100 mg/dL 70-110 Lab Interpretation (test code = Normal 62579-4) [facility] GLUCOSE (AUTOMATED)2023-02-04 02:15:57 Test Item Value Reference Range Interpretation Comments POCT GLU (test code = 4065116546) 95 mg/dL 70-110 Lab Interpretation (test code = Normal 00420-7) [facility]COOX+NA+K+GLU+CA2+2023-02-04 01:21:05 Test Item Value Reference Range Interpretation Comments PH (test code = 2) 7.24 7.35-7.45 L PCO2 (test code = 50 See_Comment H [Automate d message] 8236329187) The system [employer] generated this result transmit mars reference range : 35 - 45 mmHg. The reference range was not used to interpret this result as normal/abnormal . PO2 (test code = 87 See_Comment [Automated message] 3509617711) The system [employer] generated this result transmit mars reference range : 80 - 100 mmHg. The reference range was not used to interpret this result as normal/abnormal . HCO3 (test code = 21 See_Comment L [Automate d message] 1190313221) The system [employer] generated this result transmit mars reference range : 22 - 26 mEq/L. The reference range was not used to interpret this result as normal/abnormal . BE (test code = -6.3 See_Comment L [Automated message] 7388751289) The system [employer] generated this result transmit mars reference range : -3.0 - 3.0 mEq/ L. The reference r federica was not used to interpret this result as normal/abnormal . THB (test code = 9.6 g/dL 12.0-16.0 L 3506306428) %O2HB (test code = 93.7 % 94.0-99.0 L 7454302445) %COHB ART (test code = 0.9 % 0.0-1.5 8258316734) %METHB ART (test code = 0.5 % 0.4-1.5 4488892851) VOL%O2 ART (test code = 12.8 % 15.0-23.0 L 7286848590) NA (test code = 134 mmol/L 135-145 L 7800007821) K+ (test code = 5.1 mmol/L 3.5-5.0 H 5189309290) AC CA IONZ (test code = 4.90 mg/dL 4.50-5.30 6392383290) GLUCOSE (test code = 95 mg/dL 70-110 2671099838) Lab Interpretation Abnormal (test code = 71900-1) [facility]X+NA+K+GLU+CA2+2023-02-04 01:21:05 Test Item Value Reference Range Interpretation Comments PH (test code = 2) 7.24 7.35-7.45 L PCO2 (test code = 50 See_Comment H [Automate d message] 2846285175) The system [employer] generated this result transmit mars reference range : 35 - 45 mmHg. The reference range was not used to interpret this result as normal/abnormal . PO2 (test code = 87 See_Comment [Automated message] 4357716615) The system [employer] generated this result transmit mars reference range : 80 - 100 mmHg. The reference range was not used to interpret this result as normal/abnormal . HCO3 (test code = 21 See_Comment L [Automate d message] 0297743055) The system [employer] generated this result transmit mars reference range : 22 - 26 mEq/L. The reference range was not used to interpret this result as normal/abnormal . BE (test code = -6.3 See_Comment L [Automated message] 6313759854) The system [employer] generated this result transmit amrs reference range : -3.0 - 3.0 mEq/ L. The reference r federica was not used to interpret this result as normal/abnormal . THB (test code = 9.6 g/dL 12.0-16.0 L 6524858329) %O2HB (test code = 93.7 % 94.0-99.0 L 5140637001) %COHB ART (test code = 0.9 % 0.0-1.5 8845302009) %METHB ART (test code = 0.5 % 0.4-1.5 2515059426) VOL%O2 ART (test code = 12.8 % 15.0-23.0 L 2045677419) NA (test code = 134 mmol/L 135-145 L 3866832566) K+ (test code = 5.1 mmol/L 3.5-5.0 H 7427356330) AC CA IONZ (test code = 4.90 mg/dL 4.50-5.30 4051380983) GLUCOSE (test code = 95 mg/dL 70-110 9195481128) Lab Interpretation Abnormal (test code = 14913-0) [facility] GLUCOSE (AUTOMATED)2023-02-04 00:52:31 Test Item Value Reference Range Interpretation Comments POCT GLU (test code = 4833109094) 99 mg/dL 70-110 Lab Interpretation (test code = Normal 40703-8) [facility] Test Item Value Reference Range Interpretation Comments Fibrinogen (test code = 8188505724) 322 mg/dL 167-453 Lab Interpretation (test code = Normal 14679-1) [facility]2023-09-19 22:27:20 Test Item Value Reference Range Interpretation Comments Fibrinogen (test code = 1952250437) 322 mg/dL 167-453 Lab Interpretation (test code = Normal 96320-3) [facility] (NA, K, CL, CO2, GLUCOSE, BUN, CREATININE, CA)2023-02-03 22:20:34 Test Item Value Reference Range Interpretation Comments NA (test code = 133 mmol/L 135-145 L 6137839971) K (test code = 4.9 mmol/L 3.5-5.0 4241099137) CL (test code = 102 mmol/L 98-108 1720764736) CO2 TOTAL (test code = 17 mmol/L 23-31 L 2663229621) AGAP (test code = 14 2-16 8285850069) BUN (test code = 45 mg/dL 7-23 H 1462278697) GLUCOSE (test code = 93 mg/dL 70-110 0917438449) CREATININE (test code = 1.70 mg/dL 0.50-1.04 H 9988275790) CALCIUM (test code = 8.2 mg/dL 8.6-10.6 L 5011949481) eGFR (test code = 29.1 mL/min/1.73m2 3376139810) LOW (test code = LOW) Association of Glomerular Filtration Rate (GFR) and Staging of Kidney Disease* + --+ --+ ------+| GFR (mL/min/1.73 m2) ?| With Kidney Damage ?| ?Without Kidney Damage+ --------+ --------+ +| ?>90 ?| ?Stage one ?| ? Normal ?+ ---+ ---+ -------+| ?60-89 ?| ?Stage two ?| ? Decreased GFR ? + --+ --+ ------+| ?30-59 ?| ?Stage three ?| ? Stage three ? + --+ --+ ------+| ?15-29 ?| ?Stage four ? | ? Stage four ?+ ---+ ---+ -------+| ?<15 (or dialysis) ? ?| ?Stage five ? | ? Stage five ?+ ---+ ---+ -------+ *Each stage assumes the associated GFR level has been in effect for at least three months. ?Stages 1 to 5, with or without kidney disease, indicate chronic kidney disease. Notes: Determination of stages one and two (with eGFR >59mL/min/1.73 m2) requires estimation of kidney damage for at least three months as defined by structural or functional abnormalities of the kidney, manifested by either:Pathological abnormalities or Markers of kidney damage (including abnormalities in the composition of the blood or urine or abnormalities in imaging tests). Lab Interpretation Abnormal (test code = 37381-1) [facility]+NA+K+GLU+CA2+2023-02-03 22:16:10 Test Item Value Reference Range Interpretation Comments PH (test code = 2) 7.25 7.35-7.45 L PCO2 (test code = 48 See_Comment H [Automate d message] 3821128169) The system [employer] generated this result transmit mars reference range : 35 - 45 mmHg. The reference range was not used to interpret this result as normal/abnormal . PO2 (test code = 79 See_Comment L [Automated message] 7240535129) The system [employer] generated this result transmit mars reference range : 80 - 100 mmHg. The reference range was not used to interpret this result as normal/abnormal . HCO3 (test code = 21 See_Comment L [Automate d message] 7730557137) The system [employer] generated this result transmit mars reference range : 22 - 26 mEq/L. The reference range was not used to interpret this result as normal/abnormal . BE (test code = -6.2 See_Comment L [Automated message] 3235540926) The system [employer] generated this result transmit mars reference range : -3.0 - 3.0 mEq/ L. The reference r federica was not used to interpret this result as normal/abnormal . THB (test code = 9.5 g/dL 12.0-16.0 L 5037852035) %O2HB (test code = 92.3 % 94.0-99.0 L 9753416473) %COHB ART (test code = 1.0 % 0.0-1.5 0551468710) %METHB ART (test code = 0.5 % 0.4-1.5 4496711021) VOL%O2 ART (test code = 12.4 % 15.0-23.0 L 8761139231) NA (test code = 135 mmol/L 135-145 9701164983) K+ (test code = 5.0 mmol/L 3.5-5.0 7752487415) AC CA IONZ (test code = 4.90 mg/dL 4.50-5.30 8872771172) GLUCOSE (test code = 101 mg/dL 70-110 3102843899) Lab Interpretation Abnormal (test code = 83632-0) [facility] WITH [id number] 21:56:32 Test Item Value Reference Range Interpretation Comments WBC (test code = 15.19 See_Comment H [Automated 6690-2) message] The system which generated this result transmit mars reference range : 4.30 - 11.10 10*3/?L. The reference range was not used to interpret this result as normal/abnormal . RBC (test code = 3.47 See_Comment L [Automated 789-8) message] The system which generated this result transmit mars reference range : 3.93 - 5.25 10*6/?L. The reference range was not used to interpret this result as normal/abnormal . HGB (test code = 8.6 g/dL 11.6-15.0 L 718-7) HCT (test code = 27.3 % 35.7-45.2 L 4544-3) MCV (test code = 78.7 fL 80.6-95.5 L 787-2) MCH (test code = 24.8 pg 25.9-32.8 L 785-6) MCHC (test code = 31.5 g/dL 31.6-35.1 L 786-4) RDW-SD (test code = 53.7 fL 39.0-49.9 H 86691-1) RDW-CV (test code = 18.8 % 12.0-15.5 H 788-0) PLT (test code = 254 See_Comment [Automated 777-3) message] The system which generated this result transmit mars reference range : 166 - 358 10*3/ ?L. The reference range was not u sed to interpret th is result as normal/abnormal . MPV (test code = 10.3 fL 9.5-12.9 35598-1) NRBC/100 WBC (test 0.9 See_Comment [Automat ed code = 8562659195) message] The system which generated this result transmit mars reference range : 0.0 - 10.0 /100 WBCs. The reference range was not used to interpret this result as normal/abnormal . NRBC x10^3 (test code 0.13 See_Comment [Auto mated = 3170518549) message] The system which generated this result transmit mars reference range : 10*3/?L. The reference range was not used to interpret this result as normal/abnormal . GRAN MAT (NEUT) % 84.4 % (test code = 770-8) IMM GRAN % (test code 1.20 % = 4673315794) LYMPH % (test code = 6.5 % 736-9) MONO % (test code = 7.4 % 5905-5) EOS % (test code = 0.3 % 713-8) BASO % (test code = 0.2 % 706-2) GRAN MAT x10^3(ANC) 12.82 10*3/uL 1.88-7.09 H (test code = 5869487383) IMM GRAN x10^3 (test 0.18 10*3/uL 0.00-0.06 H code = 8596786770) LYMPH x10^3 (test code 0.99 10*3/uL 1.32-3.29 L = 731-0) MONO x10^3 (test code 1.13 10*3/uL 0.33-0.92 H = 742-7) EOS x10^3 (test code = 0.04 10*3/uL 0.03-0.39 711-2) BASO x10^3 (test code 0.03 10*3/uL 0.01-0.07 = 704-7) Lab Interpretation Abnormal (test code = 44871-9) [facility] 21:33:38 Test Item Value Reference Range Interpretation Comments POCT GLU (test code = 2596724235) 102 mg/dL 70-110 Lab Interpretation (test code = Normal 03942-6) [facility], [id number] 20:56:41 Test Item Value Reference Range Interpretation Comments VIT B12 (test code = 921 pg/mL 240-930 9548585232) LOW (test code = LOW) Biotin has been reported to cause a positive bias, interpret results relative to patient's use of biotin. Lab Interpretation (test Normal code = 63729-1) [facility], [id number] 20:56:41 Test Item Value Reference Range Interpretation Comments VIT B12 (test code = 921 pg/mL 240-930 2537086595) LOW (test code = LOW) Biotin has been reported to cause a positive bias, interpret results relative to patient's use of biotin. Lab Interpretation (test Normal code = 67006-8) [facility]X+NA+K+GLU+CA2+2023-02-03 20:44:30 Test Item Value Reference Range Interpretation Comments PH (test code = 2) 7.31 7.35-7.45 L PCO2 (test code = 17 See_Comment L [Automate d message] 7635896873) The system [employer] generated this result transmit mars reference range : 35 - 45 mmHg. The reference range was not used to interpret this result as normal/abnormal . PO2 (test code = 131 See_Comment H [Automated message] [id number]) The system [employer] generated this result transmit mars reference range : 80 - 100 mmHg. The reference range was not used to interpret this result as normal/abnormal . HCO3 (test code = 8 See_Comment L [Automate d message] [id number]) The system [employer] generated this result transmit mars reference range : 22 - 26 mEq/L. The reference range was not used to interpret this result as normal/abnormal . BE (test code = -17.1 See_Comment L [Automated message] 5367979475) The system [employer] generated this result transmit mars reference range : -3.0 - 3.0 mEq/ L. The reference r federica was not used to interpret this result as normal/abnormal . THB (test code = 3.6 g/dL 12.0-16.0 LL 9330918625) %O2HB (test code = 95.7 % 94.0-99.0 8746533936) %COHB ART (test code = 0.3 % 0.0-1.5 3337834053) %METHB ART (test code = 1.2 % 0.4-1.5 7598350851) VOL%O2 ART (test code = 5.2 % 15.0-23.0 L 7551019649) NA (test code = 142 mmol/L 135-145 5656068686) K+ (test code = 1.7 mmol/L 3.5-5.0 LL 3834516705) AC CA IONZ (test code = 2.60 mg/dL 4.50-5.30 LL 5041165098) GLUCOSE (test code = 34 mg/dL 70-110 LL 5153770923) Lab Interpretation Abnormal (test code = 94287-2) [facility] 17:40:52 Test Item Value Reference Range Interpretation Comments FOLATE SER (test code = 3.0-20.0 H Biot in has been [id number]) reported to cau se a positive bias, interpret resul ts relative to patient's use o f biotin. Lab Interpretation (test Abnormal code = 12524-5) [facility] 17:40:52 Test Item Value Reference Range Interpretation Comments FOLATE SER (test code = 3.0-20.0 H Biot in has been 4205390692) reported to cau se a positive bias, interpret resul ts relative to patient's use o f biotin. Lab Interpretation (test Abnormal code = 33310-9) [facility]2023-02-03 17:29:17 Test Item Value Reference Range Interpretation Comments POCT GLU (test code = 4823724962) 99 mg/dL 70-110 Lab Interpretation (test code = Normal 29530-8) [facility]CB WITH [id number] 15:30:18 Test Item Value Reference Range Interpretation Comments WBC (test code = 14.89 See_Comment H [Automated 6690-2) message] The system which generated this result transmit mars reference range : 4.30 - 11.10 10*3/?L. The reference range was not used to interpret this result as normal/abnormal . RBC (test code = 3.34 See_Comment L [Automated 789-8) message] The system which generated this result transmit mars reference range : 3.93 - 5.25 10*6/?L. The reference range was not used to interpret this result as normal/abnormal . HGB (test code = 8.2 g/dL 11.6-15.0 L 718-7) HCT (test code = 26.0 % 35.7-45.2 L 4544-3) MCV (test code = 77.8 fL 80.6-95.5 L 787-2) MCH (test code = 24.6 pg 25.9-32.8 L 785-6) MCHC (test code = 31.5 g/dL 31.6-35.1 L 786-4) RDW-SD (test code = 52.0 fL 39.0-49.9 H 33683-0) RDW-CV (test code = 18.6 % 12.0-15.5 H 788-0) PLT (test code = 267 See_Comment [Automated 777-3) message] The system which generated this result transmit mars reference range : 166 - 358 10*3/ ?L. The reference range was not u sed to interpret th is result as normal/abnormal . MPV (test code = 11.0 fL 9.5-12.9 24591-0) NRBC/100 WBC (test 0.9 See_Comment [Automat ed code = 1053272470) message] The system which generated this result transmit mars reference range : 0.0 - 10.0 /100 WBCs. The reference range was not used to interpret this result as normal/abnormal . NRBC x10^3 (test code 0.14 See_Comment [Auto mated = 4763212259) message] The system which generated this result transmit mars reference range : 10*3/?L. The reference range was not used to interpret this result as normal/abnormal . GRAN MAT (NEUT) % 86.1 % (test code = 770-8) IMM GRAN % (test code 0.70 % = 3908299847) LYMPH % (test code = 5.9 % 736-9) MONO % (test code = 7.0 % 5905-5) EOS % (test code = 0.1 % 713-8) BASO % (test code = 0.2 % 706-2) GRAN MAT x10^3(ANC) 12.81 10*3/uL 1.88-7.09 H (test code = 7778108917) IMM GRAN x10^3 (test 0.11 10*3/uL 0.00-0.06 H code = 9454342475) LYMPH x10^3 (test code 0.88 10*3/uL 1.32-3.29 L = 731-0) MONO x10^3 (test code 1.04 10*3/uL 0.33-0.92 H = 742-7) EOS x10^3 (test code = 0.03-0.39 L 711-2) BASO x10^3 (test code 0.03 10*3/uL 0.01-0.07 = 704-7) Lab Interpretation Abnormal (test code = 18945-2) [facility] HospitalProthrombin Time / [id number] 14:08:11 Test Item Value Reference Range Interpretation Comments PROTIME PATIENT (test 22.2 See_Comment H [Auto mated message] code = 5964-2) The system [employer] generated this result transmitted ref erence range: 10.1 - 1 2.6 Seconds. The reference range was not used to int erpret this result as normal/abnormal . INR (test code = 6301-6) 1.9 Nor mal INR <1.1; Warfarin Therap eutic range 2.0 to 3. 0 or 2.5 to 3.5, dep ending upon the indica tions. Lab Interpretation (test Abnormal code = 42108-6) [facility]PO[facility])2023-02-03 13:34:12 Test Item Value Reference Range Interpretation Comments POCT GLU (test code = 0544773305) 79 mg/dL 70-110 Lab Interpretation (test code = Normal 20078-4) [facility] HospitalFERRITIN [id number] 11:32:20 Test Item Value Reference Range Interpretation Comments FERRITIN (test code = 8.6 ng/mL 11.0-264.0 L 8513168867) LOW (test code = LOW) Biotin has been reported to cause a negative bias, interpret results relative to patient's use of biotin. Lab Interpretation (test Abnormal code = 10915-4) [facility] HospitalFERRITIN [id number] 11:32:20 Test Item Value Reference Range Interpretation Comments FERRITIN (test code = 8.6 ng/mL 11.0-264.0 L 8544345335) LOW (test code = LOW) Biotin has been reported to cause a negative bias, interpret results relative to patient's use of biotin. Lab Interpretation (test Abnormal code = 24287-8) [facility] IRON BINDING [id number] 11:07:39 Test Item Value Reference Range Interpretation Comments TIBC (test code = 7133675012) 528 ug/dL 250-410 H % FE SAT (test code = 9290873340) 65 % 20-50 H Lab Interpretation (test code = Abnormal 38430-8) [facility] IRON BINDING [id number] 11:07:39 Test Item Value Reference Range Interpretation Comments TIBC (test code = 2921644209) 528 ug/dL 250-410 H % FE SAT (test code = 3304473114) 65 % 20-50 H Lab Interpretation (test code = Abnormal 18211-4) [facility] HospitalIRON2023-[facility]-19 10:57:35 Test Item Value Reference Range Interpretation Comments IRON (test code = 0913958122) 345 ug/dL 50-160 H Lab Interpretation (test code = Abnormal 77903-2) [facility] (NA, K, CL, CO2, GLUCOSE, BUN, CREATININE, CA)2023-02-03 10:57:35 Test Item Value Reference Range Interpretation Comments NA (test code = 134 mmol/L 135-145 L 0985364907) K (test code = 4.8 mmol/L 3.5-5.0 2319637596) CL (test code = 104 mmol/L 98-108 5029926068) CO2 TOTAL (test code = 19 mmol/L 23-31 L 3140599132) AGAP (test code = 11 2-16 5121431571) BUN (test code = 47 mg/dL 7-23 H 9462450257) GLUCOSE (test code = 75 mg/dL 70-110 5814668564) CREATININE (test code = 1.96 mg/dL 0.50-1.04 H 2147206580) CALCIUM (test code = 8.1 mg/dL 8.6-10.6 L 8992880228) eGFR (test code = 24.7 mL/min/1.73m2 6983106771) LOW (test code = LOW) Association of Glomerular Filtration Rate (GFR) and Staging of Kidney Disease* + --+ --+ ------+| GFR (mL/min/1.73 m2) ?| With Kidney Damage ?| ?Without Kidney Damage+ --------+ --------+ +| ?>90 ?| ?Stage one ?| ? Normal ?+ ---+ ---+ -------+| ?60-89 ?| ?Stage two ?| ? Decreased GFR ? + --+ --+ ------+| ?30-59 ?| ?Stage three ?| ? Stage three ? + --+ --+ ------+| ?15-29 ?| ?Stage four ? | ? Stage four ?+ ---+ ---+ -------+| ?<15 (or dialysis) ? ?| ?Stage five ? | ? Stage five ?+ ---+ ---+ -------+ *Each stage assumes the associated GFR level has been in effect for at least three months. ?Stages 1 to 5, with or without kidney disease, indicate chronic kidney disease. Notes: Determination of stages one and two (with eGFR >59mL/min/1.73 m2) requires estimation of kidney damage for at least three months as defined by structural or functional abnormalities of the kidney, manifested by either:Pathological abnormalities or Markers of kidney damage (including abnormalities in the composition of the blood or urine or abnormalities in imaging tests). Lab Interpretation Abnormal (test code = 19853-3) [facility] HospitalMAGNESIUM2023-09-19 10:57:35 Test Item Value Reference Range Interpretation Comments MAGNESIUM (test code = 0591815095) 1.9 mg/dL 1.7-2.4 Lab Interpretation (test code = Normal 61436-4) [facility] HospitalPHOSPHORUS2023-09-19 10:57:35 Test Item Value Reference Range Interpretation Comments PHOSPHORUS (test code = 1170154319) 5.6 mg/dL 2.5-5.0 H Lab Interpretation (test code = Abnormal 80667-6) [facility] HospitalIRON2023-[facility] 10:57:35 Test Item Value Reference Range Interpretation Comments IRON (test code = 4600489295) 345 ug/dL 50-160 H Lab Interpretation (test code = Abnormal 99325-8) [facility] HospitalGLYCOSYLATED HEMOGLOBIN (A1C)2023-02-03 09:57:16 Test Item Value Reference Range Interpretation Comments HGB A1C (test code = 6.9 % 4.0-5.7 H 4548-4) LOW (test code = LOW) Reference RangesNormal: <5.7%Prediabetes: 5.7 - 6.4%Diabetes: > 6.5% Lab Interpretation (test Abnormal code = 31997-0) [facility] HospitalGLYCOSYLATED HEMOGLOBIN (A1C)2023-02-03 09:57:16 Test Item Value Reference Range Interpretation Comments HGB A1C (test code = 6.9 % 4.0-5.7 H 4548-4) LOW (test code = LOW) Reference RangesNormal: <5.7%Prediabetes: 5.7 - 6.4%Diabetes: > 6.5% Lab Interpretation (test Abnormal code = 93712-4) [facility] HospitalCBC WITHOUT [id number] 09:48:26 Test Item Value Reference Range Interpretation Comments WBC (test code = 6690-2) 13.10 See_Comment H [A utomated message] The system [employer] generated this result transmit mars reference range : 4.30 - 11.10 10*3/?L. The reference range was not used to interpret this result as normal/abnormal . RBC (test code = 789-8) 3.39 See_Comment L [Au tomated message] The system [employer] generated this result transmit mars reference range : 3.93 - 5.25 10* 6/?L. The reference r federica was not used to interpret this result as normal/abnormal . HGB (test code = 718-7) 8.2 g/dL 11.6-15.0 L HCT (test code = 4544-3) 27.1 % 35.7-45.2 L MCH (test code = 785-6) 24.2 pg 25.9-32.8 L MCV (test code = 787-2) 79.9 fL 80.6-95.5 L MCHC (test code = 786-4) 30.3 g/dL 31.6-35.1 L PLT (test code = 777-3) 252 See_Comment [Au tomated message] The system [facility] generated this result transmit mars reference range : 166 - 358 10*3/?L. The reference range was not used to interpret this result as normal/abnormal . MPV (test code = 10.6 fL 9.5-12.9 18614-0) RDW-CV (test code = 18.7 % 12.0-15.5 H 788-0) RDW-SD (test code = 54.2 fL 39.0-49.9 H 78642-1) NRBC x10^3 (test code = 0.12 See_Comment [Au tomated message] 7608732972) The system [employer] generated this result transmit mars reference range : 10*3/?L. The reference range was not used to interpret this result as normal/abnormal . NRBC/100 WBC (test code 0.9 See_Comment [Au tomated message] = 5967694224) The system [facility] generated this result transmit mars reference range : 0.0 - 10.0 /100 WBC s. The reference r federica was not used to interpret this result as normal/abnormal . IPF % (test code = 1541126827) Lab Interpretation (test Abnormal code = 66616-9) [facility] WITHOUT [id number] 09:48:26 Test Item Value Reference Range Interpretation Comments WBC (test code = 6690-2) 13.10 See_Comment H [A utomated message] The system [facility] generated this result transmit mars reference range : 4.30 - 11.10 10*3/?L. The reference range was not used to interpret this result as normal/abnormal . RBC (test code = 789-8) 3.39 See_Comment L [Au tomated message] The system [facility] generated this result transmit mars reference range : 3.93 - 5.25 10* 6/?L. The reference r federica was not used to interpret this result as normal/abnormal . HGB (test code = 718-7) 8.2 g/dL 11.6-15.0 L HCT (test code = 4544-3) 27.1 % 35.7-45.2 L MCH (test code = 785-6) 24.2 pg 25.9-32.8 L MCV (test code = 787-2) 79.9 fL 80.6-95.5 L MCHC (test code = 786-4) 30.3 g/dL 31.6-35.1 L PLT (test code = 777-3) 252 See_Comment [Au tomated message] The system [facility] generated this result transmit mars reference range : 166 - 358 10*3/?L. The reference range was not used to interpret this result as normal/abnormal . MPV (test code = 10.6 fL 9.5-12.9 63171-3) RDW-CV (test code = 18.7 % 12.0-15.5 H 788-0) RDW-SD (test code = 54.2 fL 39.0-49.9 H 82208-8) NRBC x10^3 (test code = 0.12 See_Comment [Au tomated message] 8740941386) The system [facility] generated this result transmit mars reference range : 10*3/?L. The reference range was not used to interpret this result as normal/abnormal . NRBC/100 WBC (test code 0.9 See_Comment [Au tomated message] = 7033188735) The system [facility] generated this result transmit mars reference range : 0.0 - 10.0 /100 WBC s. The reference r federica was not used to interpret this result as normal/abnormal . IPF % (test code = 6040057069) Lab Interpretation (test Abnormal code = 11758-4) [facility] HospitalPOSC GLUCOSE (AUTOMATED)2023-02-03 09:14:47 Test Item Value Reference Range Interpretation Comments POCT GLU (test code = 2905742289) 91 mg/dL 70-110 Lab Interpretation (test code = Normal 01144-3) [facility] HospitalPrepare Packed RBC (in units), 1 Units 2023-02-03 05:32:46 Test Item Value Reference Range Interpretation Comments Cross Match Result Compatible (test code = 4409) ISBT Blood Type Code 6200 (test code = 469052) Unit Blood Type (test A Pos code = 4410) Unit Number (test [id number] code = 4411) Blood Expiration Date & Time (test code = 861969) Status Information Issued (test code = 4412) Product Red Blood Cells Identification (test code = 4413) Product Code (test [id number] Performed at [facility] code = 4414) Laboratory Services - [facility] Blood [address] [address]Ylsx Free: [phone] A No. [id number] [facility] HospitalPrepare Packed RBC (in units), 1 Units 2023-02-03 05:32:46 Test Item Value Reference Range Interpretation Comments Cross Match Result Compatible (test code = 4409) ISBT Blood Type Code 6200 (test code = 994616) Unit Blood Type (test A Pos code = 4410) Unit Number (test [id number] code = 4411) Blood Expiration Date & Time (test code = 832469) Status Information Issued (test code = 4412) Product Red Blood Cells Identification (test code = 4413) Product Code (test [id number] Performed at [facility] code = 4414) Laboratory Services - [facility] Blood [address] [address]Hofy Free: [phone] A No. [id number] [facility] HospitalType and Screen - ONCE [id number] 04:44:00 Test Item Value Reference Range Interpretation Comments ABO & RH (test code = 20) A POSITIVE IAT (test code = 1185) Negative [facility] and Screen - ONCE [id number] 04:44:00 Test Item Value Reference Range Interpretation Comments ABO & RH (test code = 20) A POSITIVE IAT (test code = 1185) Negative [facility] HospitalPOCT GLUCOSE (AUTOMATED)2023-02-03 04:28:31 Test Item Value Reference Range Interpretation Comments POCT GLU (test code = 7198742627) 107 mg/dL 70-110 Lab Interpretation (test code = Normal 09610-3) [facility] HospitalPrep[facility] Packed RBC (in units), 2 Units 2023-02-03 01:04:45 Test Item Value Reference Range Interpretation Comments Cross Match Result Compatible (test code = 4409) ISBT Blood Type Code 6200 (test code = 097116) Unit Blood Type (test A Pos code = 4410) Unit Number (test [id number] code = 4411) Blood Expiration Date & Time (test code = 966502) Status Information Issued (test code = 4412) Product Red Blood Cells Identification (test code = 4413) Product Code (test Z1121H96 Performed at [facility] code = 4414) Laboratory Services - [facility] Blood [address] [place] [address]Faki Free: [phone] A No. [id number] [facility] HospitalTHYROID STIMULATING [id number] 22:22:55 Test Item Value Reference Range Interpretation Comments TSH (test code = 2.87 See_Comment Biotin has been 6121055322) reported to cau se a negative bias, interpret resul ts relative to pat ient's use of biotin. [Automated mess age] The system [employer] generated this result transmitted ref erence range: 0.45 - 4 .70 mIU/L. The refe rence range was not u sed to interpret this result as normal/abnor mal. Lab Interpretation (test Normal code = 25508-8) [facility] HospitalTHYROID STIMULATING [id number] 22:22:55 Test Item Value Reference Range Interpretation Comments TSH (test code = 2.87 See_Comment Biotin has been 2807187335) reported to cau se a negative bias, interpret resul ts relative to pat ient's use of biotin. [Automated mess age] The system [employer] generated this result transmitted ref erence range: 0.45 - 4 .70 mIU/L. The refe rence range was not u sed to interpret this result as normal/abnor mal. Lab Interpretation (test Normal code = 45142-1) [facility] HospitalType and Screen - ONCE [id number] 21:42:00 Test Item Value Reference Range Interpretation Comments ABO & RH (test code = 20) A Positive IAT (test code = 1185) Negative [facility] HospitalAC ABG + LACTIC [id number] 20:35:56 Test Item Value Reference Range Interpretation Comments PH (test code = 2) 7.31 7.35-7.45 L PCO2 (test code = 37 See_Comment [Automate d 5456816118) message] The sy stem which generated this result transmitted reference range : 35 - 45 mmHg. The reference range was not used to interpret this result as normal/abnormal . PO2 (test code = 94 See_Comment [Automated 2085880055) message] The sy stem which generated this result transmitted reference range : 80 - 100 mmHg. The reference range was not used to interpret this result as normal/abnormal . HCO3 (test code = 18 See_Comment L [Automate d 4843860088) message] The sy stem which generated this result transmitted reference range : 22 - 26 mEq/L. The reference range was not used to interpret this result as normal/abnormal . BE (test code = -7.7 See_Comment L [Automated 7111748741) message] The sy stem which generated this result transmitted reference range : -3.0 - 3.0 mEq/ L. The reference r federica was not used to interpret this result as normal/abnormal . LACTIC ACID (test code 3.99 mmol/L 0.50-2.20 H = 6322051513) Lab Interpretation Abnormal (test code = 15468-1) [facility] HospitalHEMOGLOBIN [id number] 05:52:09 Test Item Value Reference Range Interpretation Comments HEMOGLOBIN A1c (test 8.2 % 4.2-5.6 H [employer]IC AN DIABETES code = 93860) ASSOCIATION IDELINES FOR HGB A1C: PREDIABETES/INC REASED RISK . . . . . . . 5.7 -6.4% DIAGNOSIS OF DI ABETES . . . . . . . . . >=6 .5% WITH CONFIRMATION OR APPROPRIATE SYMPTOMS NOTE: ASSAY MAY BE AFFECTED BY HEMOGLOBINOPATH IES (SICKLE CELL ANEMIA, S- C DISEASE, OTHERS) OR ELAINE FICIALLY LOWERED BY DECR EASED RED CELL SURVIVAL ( HEMOLYTIC ANEMIAS, BLOOD LOSS, ETC.). CONSIDER ALTERN ATE TESTING OR LABORATORY C ONSULTATION. BASIC METABOLIC [id number] 05:11:09 Test Item Value Reference Range Interpretation Comments GLUCOSE (test code 241 MG/DL 70-99 H = 2217) BUN (test code = 21 MG/DL 01-07) CREATININE (test 0.99 MG/DL 0.60-1.30 code = 2214) eGFR (2020 CKD-EPI) 59 ML/MIN/1.73 >60 L The N KF-ASN (test code = 84073) Taskforc e recommends use of Cystatin C to confirm eGFR in adults at risk for CKD . [facility] offers eGFR wit h Cystatin C-Creatinineusi ng the 2020 CKD-EPI eGFR_creat-cyst at equation (order code 3057) toincreas e the accuracy of est imated GFR. For more information, contactyour [facility] ount executive or se e announcement [email or web address] s SODIUM (test code = 138 MEQ/L 122-129 1956) POTASSIUM (test 4.0 MEQ/L 3.5-5.4 code = 2228) CHLORIDE (test code 97 MEQ/L 95-107 = 2215) CARBON DIOXIDE 30 MEQ/L 19-31 (test code = 2206) CALCIUM (test code 9.3 MG/DL 8.5-10.5 UNLESS O THERWISE = 2209) INDICATED, ALL TESTING PERFORM ED AT [facility], [address] MUNA DIRECTOR: [place] BRYAN ANAHI NUMBER [id number] CAP ACCREDITATION N O. [id number] POCT GLUCOSE (AUTOMATED)2022-11-07 17:24:33 Test Item Value Reference Range Interpretation Comments POCT GLU (test code = 0030777427) 245 mg/dL 70-110 H Lab Interpretation (test code = Abnormal 17199-5) [facility]PO[facility])2022-11-07 13:37:51 Test Item Value Reference Range Interpretation Comments POCT GLU (test code = 6146731917) 191 mg/dL 70-110 H Lab Interpretation (test code = Abnormal 48413-0) [facility] WITH [id number] 09:42:55 Test Item Value Reference Range Interpretation Comments WBC (test code = 7.12 See_Comment [Automated 6690-2) message] The sy stem which generated this result transmitted reference range : 4.30 - 11.10 10*3/?L. The reference range was not used to interpret this result as normal/abnormal . RBC (test code = 3.70 See_Comment L [Automated 789-8) message] The sy stem which generated this result transmitted reference range : 3.93 - 5.25 10*6/?L. The reference range was not used to interpret this result as normal/abnormal . HGB (test code = 10.1 g/dL 11.6-15.0 L 718-7) HCT (test code = 31.7 % 35.7-45.2 L 4544-3) MCV (test code = 85.7 fL 80.6-95.5 787-2) MCH (test code = 27.3 pg 25.9-32.8 785-6) MCHC (test code = 31.9 g/dL 31.6-35.1 786-4) RDW-SD (test code = 49.3 fL 39.0-49.9 05149-0) RDW-CV (test code = 15.7 % 12.0-15.5 H 788-0) PLT (test code = 308 See_Comment [Automated 777-3) message] The sy stem which generated this result transmitted reference range : 166 - 358 10*3/ ?L. The reference r federica was not used to interpret this result as normal/abnormal . MPV (test code = 9.7 fL 9.5-12.9 46203-1) NRBC/100 WBC (test 0.0 See_Comment [Automat ed code = 4271353085) message] The system which generated this result transmitted reference range : 0.0 - 10.0 /100 WBCs. The refer ence range was not u sed to interpret th is result as normal/abnormal . NRBC x10^3 (test code See_Comment [Auto mated = 1102218339) message] The s ystem which generated this result transmitted reference range : 10*3/?L. The reference range was not used to interpret this result as normal/abnormal . GRAN MAT (NEUT) % 54.6 % (test code = 770-8) IMM GRAN % (test code 0.40 % = 7631173845) LYMPH % (test code = 26.3 % 736-9) MONO % (test code = 12.2 % 5905-5) EOS % (test code = 5.8 % 713-8) BASO % (test code = 0.7 % 706-2) GRAN MAT x10^3(ANC) 3.89 10*3/uL 1.88-7.09 (test code = 8502616173) IMM GRAN x10^3 (test 0.03 10*3/uL 0.00-0.06 code = 1294540604) LYMPH x10^3 (test code 1.87 10*3/uL 1.32-3.29 = 731-0) MONO x10^3 (test code 0.87 10*3/uL 0.33-0.92 = 742-7) EOS x10^3 (test code = 0.41 10*3/uL 0.03-0.39 H 711-2) BASO x10^3 (test code 0.05 10*3/uL 0.01-0.07 = 704-7) Lab Interpretation Abnormal (test code = 29439-6) [facility] GLUCOSE (AUTOMATED)2022-11-07 01:42:02 Test Item Value Reference Range Interpretation Comments POCT GLU (test code = 4521061511) 310 mg/dL 70-110 H Lab Interpretation (test code = Abnormal 20236-4) [facility] GLUCOSE (AUTOMATED)2022-11-06 23:01:23 Test Item Value Reference Range Interpretation Comments POCT GLU (test code = 7837146851) 230 mg/dL 70-110 H Lab Interpretation (test code = Abnormal 00898-0) [facility] GLUCOSE (AUTOMATED)2022-11-06 17:54:33 Test Item Value Reference Range Interpretation Comments POCT GLU (test code = 7491205787) 268 mg/dL 70-110 H Lab Interpretation (test code = Abnormal 69811-2) [facility] GLUCOSE (AUTOMATED)2022-11-06 13:26:49 Test Item Value Reference Range Interpretation Comments POCT GLU (test code = 3544266256) 170 mg/dL 70-110 H Lab Interpretation (test code = Abnormal 74929-8) [facility] GLUCOSE (AUTOMATED)2022-11-06 01:36:25 Test Item Value Reference Range Interpretation Comments POCT GLU (test code = 6894612874) 144 mg/dL 70-110 H Lab Interpretation (test code = Abnormal 59543-5) [facility] GLUCOSE (AUTOMATED)2022-11-05 22:41:21 Test Item Value Reference Range Interpretation Comments POCT GLU (test code = 1409924817) 261 mg/dL 70-110 H Lab Interpretation (test code = Abnormal 61740-5) [facility] GLUCOSE (AUTOMATED)2022-11-05 17:39:23 Test Item Value Reference Range Interpretation Comments POCT GLU (test code = 4534481020) 270 mg/dL 70-110 H Lab Interpretation (test code = Abnormal 14454-5) [facility] GLUCOSE (AUTOMATED)2022-11-05 12:21:21 Test Item Value Reference Range Interpretation Comments POCT GLU (test code = 0536353010) 186 mg/dL 70-110 H Lab Interpretation (test code = Abnormal 57625-2) [facility] GLUCOSE (AUTOMATED)2022-11-05 02:03:22 Test Item Value Reference Range Interpretation Comments POCT GLU (test code = 7586254551) 250 mg/dL 70-110 H Lab Interpretation (test code = Abnormal 40915-5) [facility] GLUCOSE (AUTOMATED)2022-11-04 21:12:00 Test Item Value Reference Range Interpretation Comments POCT GLU (test code = 1658879061) 277 mg/dL 70-110 H Lab Interpretation (test code = Abnormal 42604-1) [facility] GLUCOSE (AUTOMATED)2022-11-04 16:26:05 Test Item Value Reference Range Interpretation Comments POCT GLU (test code = 9967921938) 265 mg/dL 70-110 H Lab Interpretation (test code = Abnormal 85829-4) [facility] GLUCOSE (AUTOMATED)2022-11-04 12:44:23 Test Item Value Reference Range Interpretation Comments POCT GLU (test code = 4509543563) 209 mg/dL 70-110 H Lab Interpretation (test code = Abnormal 29696-5) [facility] METABOLIC PANEL (NA, K, CL, CO2, GLUCOSE, BUN, CREATININE, CA)2022-11-04 09:47:25 Test Item Value Reference Range Interpretation Comments NA (test code = 130 mmol/L 135-145 L 4004616665) K (test code = 3.7 mmol/L 3.5-5.0 2263983620) CL (test code = 88 mmol/L 98-108 L 3588581778) CO2 TOTAL (test code = 36 mmol/L 23-31 H 4569984611) AGAP (test code = 6 2-16 4131330365) BUN (test code = 40 mg/dL 7-23 H 3997985234) GLUCOSE (test code = 203 mg/dL 70-110 H 4554508670) CREATININE (test code = 0.98 mg/dL 0.50-1.04 1677911934) CALCIUM (test code = 9.1 mg/dL 8.6-10.6 5310675313) eGFR (test code = 55.0 mL/min/1.73m2 7605717100) LOW (test code = LOW) Association of Glomerular Filtration Rate (GFR) and Staging of Kidney Disease* + --+ --+ ------+| GFR (mL/min/1.73 m2) ?| With Kidney Damage ?| ?Without Kidney Damage+ --------+ --------+ +| ?>90 ?| ?Stage one ?| ? Normal ?+ ---+ ---+ -------+| ?60-89 ?| ?Stage two ?| ? Decreased GFR ? + --+ --+ ------+| ?30-59 ?| ?Stage three ?| ? Stage three ? + --+ --+ ------+| ?15-29 ?| ?Stage four ? | ? Stage four ?+ ---+ ---+ -------+| ?<15 (or dialysis) ? ?| ?Stage five ? | ? Stage five ?+ ---+ ---+ -------+ *Each stage assumes the associated GFR level has been in effect for at least three months. ?Stages 1 to 5, with or without kidney disease, indicate chronic kidney disease. Notes: Determination of stages one and two (with eGFR >59mL/min/1.73 m2) requires estimation of kidney damage for at least three months as defined by structural or functional abnormalities of the kidney, manifested by either:Pathological abnormalities or Markers of kidney damage (including abnormalities in the composition of the blood or urine or abnormalities in imaging tests). Lab Interpretation Abnormal (test code = 12359-8) [facility] WITH [id number] 09:20:24 Test Item Value Reference Range Interpretation Comments WBC (test code = 8.24 See_Comment [Automated 6690-2) message] The sy stem which generated this result transmitted reference range : 4.30 - 11.10 10*3/?L. The reference range was not used to interpret this result as normal/abnormal . RBC (test code = 3.60 See_Comment L [Automated 789-8) message] The sy stem which generated this result transmitted reference range : 3.93 - 5.25 10*6/?L. The reference range was not used to interpret this result as normal/abnormal . HGB (test code = 9.8 g/dL 11.6-15.0 L 718-7) HCT (test code = 30.7 % 35.7-45.2 L 4544-3) MCV (test code = 85.3 fL 80.6-95.5 787-2) MCH (test code = 27.2 pg 25.9-32.8 785-6) MCHC (test code = 31.9 g/dL 31.6-35.1 786-4) RDW-SD (test code = 48.3 fL 39.0-49.9 20574-1) RDW-CV (test code = 15.7 % 12.0-15.5 H 788-0) PLT (test code = 248 See_Comment [Automated 777-3) message] The sy stem which generated this result transmitted reference range : 166 - 358 10*3/ ?L. The reference r federica was not used to interpret this result as normal/abnormal . MPV (test code = 9.3 fL 9.5-12.9 L 22095-3) NRBC/100 WBC (test 0.0 See_Comment [Automat ed code = 7323718572) message] The system which generated this result transmitted reference range : 0.0 - 10.0 /100 WBCs. The refer ence range was not u sed to interpret th is result as normal/abnormal . NRBC x10^3 (test code See_Comment [Auto mated = 8968672287) message] The s ystem which generated this result transmitted reference range : 10*3/?L. The reference range was not used to interpret this result as normal/abnormal . GRAN MAT (NEUT) % 62.5 % (test code = 770-8) IMM GRAN % (test code 0.50 % = 6173720693) LYMPH % (test code = 21.0 % 736-9) MONO % (test code = 11.7 % 5905-5) EOS % (test code = 3.9 % 713-8) BASO % (test code = 0.4 % 706-2) GRAN MAT x10^3(ANC) 5.16 10*3/uL 1.88-7.09 (test code = 6486293903) IMM GRAN x10^3 (test 0.04 10*3/uL 0.00-0.06 code = 2320557307) LYMPH x10^3 (test code 1.73 10*3/uL 1.32-3.29 = 731-0) MONO x10^3 (test code 0.96 10*3/uL 0.33-0.92 H = 742-7) EOS x10^3 (test code = 0.32 10*3/uL 0.03-0.39 711-2) BASO x10^3 (test code 0.03 10*3/uL 0.01-0.07 = 704-7) Lab Interpretation Abnormal (test code = 19141-3) [facility] GLUCOSE (AUTOMATED)2022-11-04 01:26:31 Test Item Value Reference Range Interpretation Comments POCT GLU (test code = 5698883495) 284 mg/dL 70-110 H Lab Interpretation (test code = Abnormal 82770-3) [facility] GLUCOSE (AUTOMATED)2022-11-03 22:20:13 Test Item Value Reference Range Interpretation Comments POCT GLU (test code = 8194697948) 323 mg/dL 70-110 H Lab Interpretation (test code = Abnormal 22690-3) [facility] GLUCOSE (AUTOMATED)2022-11-03 16:39:32 Test Item Value Reference Range Interpretation Comments POCT GLU (test code = 2915561113) 293 mg/dL 70-110 H Lab Interpretation (test code = Abnormal 32212-1) [facility] GLUCOSE (AUTOMATED)2022-11-03 12:47:29 Test Item Value Reference Range Interpretation Comments POCT GLU (test code = 2156270904) 220 mg/dL 70-110 H Lab Interpretation (test code = Abnormal 16980-6) [facility] GLUCOSE (AUTOMATED)2022-11-03 01:43:07 Test Item Value Reference Range Interpretation Comments POCT GLU (test code = 6415428178) 277 mg/dL 70-110 H Lab Interpretation (test code = Abnormal 65059-7) [facility] GLUCOSE (AUTOMATED)2022-11-02 21:08:43 Test Item Value Reference Range Interpretation Comments POCT GLU (test code = 9229205742) 191 mg/dL 70-110 H Lab Interpretation (test code = Abnormal 14270-2) [facility] GLUCOSE (AUTOMATED)2022-11-02 16:08:02 Test Item Value Reference Range Interpretation Comments POCT GLU (test code = 2129633543) 235 mg/dL 70-110 H Lab Interpretation (test code = Abnormal 00970-1) [facility] GLUCOSE (AUTOMATED)2022-11-02 12:38:18 Test Item Value Reference Range Interpretation Comments POCT GLU (test code = 5395534786) 210 mg/dL 70-110 H Lab Interpretation (test code = Abnormal 53812-0) [facility] GLUCOSE (AUTOMATED)2022-11-02 01:45:15 Test Item Value Reference Range Interpretation Comments POCT GLU (test code = 1768803394) 268 mg/dL 70-110 H Lab Interpretation (test code = Abnormal 91160-4) [facility] GLUCOSE (AUTOMATED)2022-11-01 20:58:38 Test Item Value Reference Range Interpretation Comments POCT GLU (test code = 2703727911) 264 mg/dL 70-110 H Lab Interpretation (test code = Abnormal 91961-6) [facility] GLUCOSE (AUTOMATED)2022-11-01 16:44:08 Test Item Value Reference Range Interpretation Comments POCT GLU (test code = 8332148591) 329 mg/dL 70-110 H Lab Interpretation (test code = Abnormal 60628-7) [facility] GLUCOSE (AUTOMATED)2022-11-01 12:40:28 Test Item Value Reference Range Interpretation Comments POCT GLU (test code = 7149542155) 185 mg/dL 70-110 H Lab Interpretation (test code = Abnormal 96166-7) [facility] GLUCOSE (AUTOMATED)2022-11-01 01:53:10 Test Item Value Reference Range Interpretation Comments POCT GLU (test code = 9962884152) 274 mg/dL 70-110 H Lab Interpretation (test code = Abnormal 85644-0) [facility] GLUCOSE (AUTOMATED)2022-11-01 01:53:10 Test Item Value Reference Range Interpretation Comments POCT GLU (test code = 4786048099) 274 mg/dL 70-110 H Lab Interpretation (test code = Abnormal 53998-9) [facility] ACT LOW [id number] 21:06:31 Test Item Value Reference Range Interpretation Comments ACTLR (test code = 303 See_Comment H [Automat ed message] 2731809880) The system [employer] generated this result transmitted ref erence range: 89 - 169 Seconds. The reference range was not used to int erpret this result as normal/abnormal . Lab Interpretation (test Abnormal code = 02058-3) [facility] ACT LOW [id number] 21:06:31 Test Item Value Reference Range Interpretation Comments ACTLR (test code = 294 See_Comment H [Automat ed message] 6323319930) The system [employer] generated this result transmitted ref erence range: 89 - 169 Seconds. The reference range was not used to int erpret this result as normal/abnormal . Lab Interpretation (test Abnormal code = 24476-8) [facility] ACT LOW [id number] 21:06:31 Test Item Value Reference Range Interpretation Comments ACTLR (test code = 274 See_Comment H [Automat ed message] 6657029925) The system [employer] generated this result transmitted ref erence range: 89 - 169 Seconds. The reference range was not used to int erpret this result as normal/abnormal . Lab Interpretation (test Abnormal code = 65145-3) [facility] ACT LOW [id number] 21:06:31 Test Item Value Reference Range Interpretation Comments ACTLR (test code = 303 See_Comment H [Automat ed message] 2831469104) The system [employer] generated this result transmitted ref erence range: 89 - 169 Seconds. The reference range was not used to int erpret this result as normal/abnormal . Lab Interpretation (test Abnormal code = 26111-3) [facility] ACT LOW [id number] 21:06:31 Test Item Value Reference Range Interpretation Comments ACTLR (test code = 294 See_Comment H [Automat ed message] 4863252095) The system [employer] generated this result transmitted ref erence range: 89 - 169 Seconds. The reference range was not used to int erpret this result as normal/abnormal . Lab Interpretation (test Abnormal code = 90577-9) [facility] ACT LOW [id number] 21:06:31 Test Item Value Reference Range Interpretation Comments ACTLR (test code = 274 See_Comment H [Automat ed message] 3512495985) The system [employer] generated this result transmitted ref erence range: 89 - 169 Seconds. The reference range was not used to int erpret this result as normal/abnormal . Lab Interpretation (test Abnormal code = 22434-2) [facility] ACT LOW [id number] 21:06:26 Test Item Value Reference Range Interpretation Comments ACTLR (test code = 283 See_Comment H [Automat ed message] 6279079215) The system [employer] generated this result transmitted ref erence range: 89 - 169 Seconds. The reference range was not used to int erpret this result as normal/abnormal . Lab Interpretation (test Abnormal code = 25131-6) [facility] ACT LOW [id number] 21:06:26 Test Item Value Reference Range Interpretation Comments ACTLR (test code = 269 See_Comment H [Automat ed message] 2833891925) The system [employer] generated this result transmitted ref erence range: 89 - 169 Seconds. The reference range was not used to int erpret this result as normal/abnormal . Lab Interpretation (test Abnormal code = 76619-6) [facility] ACT LOW [id number] 21:06:26 Test Item Value Reference Range Interpretation Comments ACTLR (test code = 283 See_Comment H [Automat ed message] 3394634711) The system [employer] generated this result transmitted ref erence range: 89 - 169 Seconds. The reference range was not used to int erpret this result as normal/abnormal . Lab Interpretation (test Abnormal code = 52398-6) [facility] ACT LOW [id number] 21:06:26 Test Item Value Reference Range Interpretation Comments ACTLR (test code = 269 See_Comment H [Automat ed message] 6600966763) The system [employer] generated this result transmitted ref erence range: 89 - 169 Seconds. The reference range was not used to int erpret this result as normal/abnormal . Lab Interpretation (test Abnormal code = 26819-4) [facility] GLUCOSE (AUTOMATED)2022-10-31 12:34:49 Test Item Value Reference Range Interpretation Comments POCT GLU (test code = 2214974337) 170 mg/dL 70-110 H Lab Interpretation (test code = Abnormal 67416-6) [facility] GLUCOSE (AUTOMATED)2022-10-31 12:34:49 Test Item Value Reference Range Interpretation Comments POCT GLU (test code = 5353712964) 170 mg/dL 70-110 H Lab Interpretation (test code = Abnormal 69843-2) [facility] GLUCOSE (AUTOMATED)2022-10-31 02:14:46 Test Item Value Reference Range Interpretation Comments POCT GLU (test code = 1188053395) 166 mg/dL 70-110 H Lab Interpretation (test code = Abnormal 49180-4) [facility] GLUCOSE (AUTOMATED)2022-10-31 02:14:46 Test Item Value Reference Range Interpretation Comments POCT GLU (test code = 0514041538) 166 mg/dL 70-110 H Lab Interpretation (test code = Abnormal 48730-8) [facility] 23:39:20 Test Item Value Reference Range Interpretation Comments APTT Patient (test code 88 See_Comment H [Au tomated message] = 3173-2) The system [employer] generated this result transmitted ref erence range: 26 - 36 Seconds. The reference range was not used to int erpret this result as normal/abnormal . Lab Interpretation (test Abnormal code = 88425-6) [facility] D[facility]2022-10-30 23:39:20 Test Item Value Reference Range Interpretation Comments APTT Patient (test code 88 See_Comment H [Au tomated message] = 4243-2) The system [employer] generated this result transmitted ref erence range: 26 - 36 Seconds. The reference range was not used to int erpret this result as normal/abnormal . Lab Interpretation (test Abnormal code = 23395-4) [facility] GLUCOSE (AUTOMATED)2022-10-30 21:50:55 Test Item Value Reference Range Interpretation Comments POCT GLU (test code = 4481321347) 180 mg/dL 70-110 H Lab Interpretation (test code = Abnormal 95113-9) [facility] GLUCOSE (AUTOMATED)2022-10-30 21:50:55 Test Item Value Reference Range Interpretation Comments POCT GLU (test code = 7404252145) 180 mg/dL 70-110 H Lab Interpretation (test code = Abnormal 42458-2) [facility] Only[facility]2022-10-30 19:48:00 Test Item Value Reference Range Interpretation Comments ABO & RH (test code = 20) A [facility] Only[facility]2022-10-30 19:48:00 Test Item Value Reference Range Interpretation Comments ABO & RH (test code = 20) A [facility] - ONCE [id number] 18:48:00 Test Item Value Reference Range Interpretation Comments ABO & RH (test code = 20) A Positive IAT (test code = 1185) Negative [facility] [id number] 18:48:00 Test Item Value Reference Range Interpretation Comments ABO & RH (test code = 20) A Positive IAT (test code = 1185) Negative [facility]2022-10-30 17:07:23 Test Item Value Reference Range Interpretation Comments POCT GLU (test code = 5244901021) 325 mg/dL 70-110 H Lab Interpretation (test code = Abnormal 99746-9) [facility] GLUCOSE (AUTOMATED)2022-10-30 17:07:23 Test Item Value Reference Range Interpretation Comments POCT GLU (test code = 7033057499) 325 mg/dL 70-110 H Lab Interpretation (test code = Abnormal 49133-4) [facility] (for use with Heparin Drip)2022-10-30 14:54:43 Test Item Value Reference Range Interpretation Comments APTT Patient (test code 41 See_Comment H [Au tomated message] = 3173-2) The system [employer] generated this result transmitted ref erence range: 26 - 36 Seconds. The reference range was not used to int erpret this result as normal/abnormal . Lab Interpretation (test Abnormal code = 40931-4) [facility] (for use with Heparin Drip)2022-10-30 14:54:43 Test Item Value Reference Range Interpretation Comments APTT Patient (test code 41 See_Comment H [Au tomated message] = 3173-2) The system [employer] generated this result transmitted ref erence range: 26 - 36 Seconds. The reference range was not used to int erpret this result as normal/abnormal . Lab Interpretation (test Abnormal code = 04090-0) [facility] GLUCOSE (AUTOMATED)2022-10-30 13:36:28 Test Item Value Reference Range Interpretation Comments POCT GLU (test code = 9146715421) 240 mg/dL 70-110 H Lab Interpretation (test code = Abnormal 64497-9) [facility] GLUCOSE (AUTOMATED)2022-10-30 13:36:28 Test Item Value Reference Range Interpretation Comments POCT GLU (test code = 9506915677) 240 mg/dL 70-110 H Lab Interpretation (test code = Abnormal 71100-9) [facility] METABOLIC PANEL (NA, K, CL, CO2, GLUCOSE, BUN, CREATININE, CA)2022-10-30 10:16:01 Test Item Value Reference Range Interpretation Comments NA (test code = 132 mmol/L 135-145 L 0137376672) K (test code = 3.9 mmol/L 3.5-5.0 6781112366) CL (test code = 93 mmol/L 98-108 L 9279931727) CO2 TOTAL (test code = 39 mmol/L 23-31 H 0403895082) AGAP (test code = 2-16 L 6060240744) BUN (test code = 25 mg/dL 7-23 H 4404287662) GLUCOSE (test code = 236 mg/dL 70-110 H 3129515044) CREATININE (test code = 0.78 mg/dL 0.50-1.04 6296992612) CALCIUM (test code = 9.2 mg/dL 8.6-10.6 2175978578) eGFR (test code = 71.6 mL/min/1.73m2 3740970914) LOW (test code = LOW) Association of Glomerular Filtration Rate (GFR) and Staging of Kidney Disease* + --+ --+ ------+| GFR (mL/min/1.73 m2) ?| With Kidney Damage ?| ?Without Kidney Damage+ --------+ --------+ +| ?>90 ?| ?Stage one ?| ? Normal ?+ ---+ ---+ -------+| ?60-89 ?| ?Stage two ?| ? Decreased GFR ? + --+ --+ ------+| ?30-59 ?| ?Stage three ?| ? Stage three ? + --+ --+ ------+| ?15-29 ?| ?Stage four ? | ? Stage four ?+ ---+ ---+ -------+| ?<15 (or dialysis) ? ?| ?Stage five ? | ? Stage five ?+ ---+ ---+ -------+ *Each stage assumes the associated GFR level has been in effect for at least three months. ?Stages 1 to 5, with or without kidney disease, indicate chronic kidney disease. Notes: Determination of stages one and two (with eGFR >59mL/min/1.73 m2) requires estimation of kidney damage for at least three months as defined by structural or functional abnormalities of the kidney, manifested by either:Pathological abnormalities or Markers of kidney damage (including abnormalities in the composition of the blood or urine or abnormalities in imaging tests). Lab Interpretation Abnormal (test code = 25558-9) [facility] METABOLIC PANEL (NA, K, CL, CO2, GLUCOSE, BUN, CREATININE, CA)2022-10-30 10:16:01 Test Item Value Reference Range Interpretation Comments NA (test code = 132 mmol/L 135-145 L 8890420499) K (test code = 3.9 mmol/L 3.5-5.0 0174010381) CL (test code = 93 mmol/L 98-108 L 1562999513) CO2 TOTAL (test code = 39 mmol/L 23-31 H 6807546266) AGAP (test code = 2-16 L 1609355791) BUN (test code = 25 mg/dL 7-23 H 9584171829) GLUCOSE (test code = 236 mg/dL 70-110 H 8954135931) CREATININE (test code = 0.78 mg/dL 0.50-1.04 5033029704) CALCIUM (test code = 9.2 mg/dL 8.6-10.6 7328466687) eGFR (test code = 71.6 mL/min/1.73m2 0524300619) LOW (test code = LOW) Association of Glomerular Filtration Rate (GFR) and Staging of Kidney Disease* + --+ --+ ------+| GFR (mL/min/1.73 m2) ?| With Kidney Damage ?| ?Without Kidney Damage+ --------+ --------+ +| ?>90 ?| ?Stage one ?| ? Normal ?+ ---+ ---+ -------+| ?60-89 ?| ?Stage two ?| ? Decreased GFR ? + --+ --+ ------+| ?30-59 ?| ?Stage three ?| ? Stage three ? + --+ --+ ------+| ?15-29 ?| ?Stage four ? | ? Stage four ?+ ---+ ---+ -------+| ?<15 (or dialysis) ? ?| ?Stage five ? | ? Stage five ?+ ---+ ---+ -------+ *Each stage assumes the associated GFR level has been in effect for at least three months. ?Stages 1 to 5, with or without kidney disease, indicate chronic kidney disease. Notes: Determination of stages one and two (with eGFR >59mL/min/1.73 m2) requires estimation of kidney damage for at least three months as defined by structural or functional abnormalities of the kidney, manifested by either:Pathological abnormalities or Markers of kidney damage (including abnormalities in the composition of the blood or urine or abnormalities in imaging tests). Lab Interpretation Abnormal (test code = 00025-9) [facility] WITH [id number] 10:02:20 Test Item Value Reference Range Interpretation Comments WBC (test code = 9.92 See_Comment [Automated 6690-2) message] The sy stem which generated this result transmitted reference range : 4.30 - 11.10 10*3/?L. The reference range was not used to interpret this result as normal/abnormal . RBC (test code = 3.93 See_Comment [Automated 789-8) message] The sy stem which generated this result transmitted reference range : 3.93 - 5.25 10*6/?L. The reference range was not used to interpret this result as normal/abnormal . HGB (test code = 10.8 g/dL 11.6-15.0 L 718-7) HCT (test code = 34.4 % 35.7-45.2 L 4544-3) MCV (test code = 87.5 fL 80.6-95.5 787-2) MCH (test code = 27.5 pg 25.9-32.8 785-6) MCHC (test code = 31.4 g/dL 31.6-35.1 L 786-4) RDW-SD (test code = 50.5 fL 39.0-49.9 H 42151-6) RDW-CV (test code = 15.7 % 12.0-15.5 H 788-0) PLT (test code = 269 See_Comment [Automated 777-3) message] The sy stem which generated this result transmitted reference range : 166 - 358 10*3/ ?L. The reference r federica was not used to interpret this result as normal/abnormal . MPV (test code = 9.4 fL 9.5-12.9 L 35163-6) NRBC/100 WBC (test 0.0 See_Comment [Automat ed code = 1206114772) message] The system which generated this result transmitted reference range : 0.0 - 10.0 /100 WBCs. The refer ence range was not u sed to interpret th is result as normal/abnormal . NRBC x10^3 (test code See_Comment [Auto mated = 9367833651) message] The s ystem which generated this result transmitted reference range : 10*3/?L. The reference range was not used to interpret this result as normal/abnormal . GRAN MAT (NEUT) % 67.0 % (test code = 770-8) IMM GRAN % (test code 0.40 % = 3945604215) LYMPH % (test code = 19.3 % 736-9) MONO % (test code = 10.1 % 5905-5) EOS % (test code = 3.0 % 713-8) BASO % (test code = 0.2 % 706-2) GRAN MAT x10^3(ANC) 6.65 10*3/uL 1.88-7.09 (test code = 3542782557) IMM GRAN x10^3 (test 0.04 10*3/uL 0.00-0.06 code = 5647031590) LYMPH x10^3 (test code 1.91 10*3/uL 1.32-3.29 = 731-0) MONO x10^3 (test code 1.00 10*3/uL 0.33-0.92 H = 742-7) EOS x10^3 (test code = 0.30 10*3/uL 0.03-0.39 711-2) BASO x10^3 (test code 0.01-0.07 = 704-7) Lab Interpretation Abnormal (test code = 73679-4) [facility] WITH [id number] 10:02:20 Test Item Value Reference Range Interpretation Comments WBC (test code = 9.92 See_Comment [Automated 9890-2) message] The sy stem which generated this result transmitted reference range : 4.30 - 11.10 10*3/?L. The reference range was not used to interpret this result as normal/abnormal . RBC (test code = 3.93 See_Comment [Automated 189-8) message] The sy stem which generated this result transmitted reference range : 3.93 - 5.25 10*6/?L. The reference range was not used to interpret this result as normal/abnormal . HGB (test code = 10.8 g/dL 11.6-15.0 L 718-7) HCT (test code = 34.4 % 35.7-45.2 L 4544-3) MCV (test code = 87.5 fL 80.6-95.5 787-2) MCH (test code = 27.5 pg 25.9-32.8 785-6) MCHC (test code = 31.4 g/dL 31.6-35.1 L 786-4) RDW-SD (test code = 50.5 fL 39.0-49.9 H 02091-0) RDW-CV (test code = 15.7 % 12.0-15.5 H 788-0) PLT (test code = 269 See_Comment [Automated 777-3) message] The sy stem which generated this result transmitted reference range : 166 - 358 10*3/ ?L. The reference r federica was not used to interpret this result as normal/abnormal . MPV (test code = 9.4 fL 9.5-12.9 L 48708-9) NRBC/100 WBC (test 0.0 See_Comment [Automat ed code = 8368090855) message] The system which generated this result transmitted reference range : 0.0 - 10.0 /100 WBCs. The refer ence range was not u sed to interpret th is result as normal/abnormal . NRBC x10^3 (test code See_Comment [Auto mated = 7258824508) message] The s ystem which generated this result transmitted reference range : 10*3/?L. The reference range was not used to interpret this result as normal/abnormal . GRAN MAT (NEUT) % 67.0 % (test code = 770-8) IMM GRAN % (test code 0.40 % = 9859914273) LYMPH % (test code = 19.3 % 736-9) MONO % (test code = 10.1 % 5905-5) EOS % (test code = 3.0 % 713-8) BASO % (test code = 0.2 % 706-2) GRAN MAT x10^3(ANC) 6.65 10*3/uL 1.88-7.09 (test code = 0526055394) IMM GRAN x10^3 (test 0.04 10*3/uL 0.00-0.06 code = 0924647170) LYMPH x10^3 (test code 1.91 10*3/uL 1.32-3.29 = 731-0) MONO x10^3 (test code 1.00 10*3/uL 0.33-0.92 H = 742-7) EOS x10^3 (test code = 0.30 10*3/uL 0.03-0.39 711-2) BASO x10^3 (test code 0.01-0.07 = 704-7) Lab Interpretation Abnormal (test code = 69945-6) [facility] GLUCOSE (AUTOMATED)2022-10-30 01:09:15 Test Item Value Reference Range Interpretation Comments POCT GLU (test code = 3765179896) 166 mg/dL 70-110 H Lab Interpretation (test code = Abnormal 42386-4) [facility] GLUCOSE (AUTOMATED)2022-10-30 01:09:15 Test Item Value Reference Range Interpretation Comments POCT GLU (test code = 4848850635) 166 mg/dL 70-110 H Lab Interpretation (test code = Abnormal 45240-8) [facility] (for use with Heparin Drip)2022-10-30 00:55:01 Test Item Value Reference Range Interpretation Comments APTT Patient (test code 60 See_Comment H [Au tomated message] = 3173-2) The system [employer] generated this result transmitted ref erence range: 26 - 36 Seconds. The reference range was not used to int erpret this result as normal/abnormal . Lab Interpretation (test Abnormal code = 67880-3) [facility] (for use with Heparin Drip)2022-10-30 00:55:01 Test Item Value Reference Range Interpretation Comments APTT Patient (test code 60 See_Comment H [Au tomated message] = 3173-2) The system [employer] generated this result transmitted ref erence range: 26 - 36 Seconds. The reference range was not used to int erpret this result as normal/abnormal . Lab Interpretation (test Abnormal code = 33558-1) [facility] GLUCOSE (AUTOMATED)2022-10-29 22:04:12 Test Item Value Reference Range Interpretation Comments POCT GLU (test code = 1118790278) 204 mg/dL 70-110 H Lab Interpretation (test code = Abnormal 11737-2) [facility] GLUCOSE (AUTOMATED)2022-10-29 22:04:12 Test Item Value Reference Range Interpretation Comments POCT GLU (test code = 6924385670) 204 mg/dL 70-110 H Lab Interpretation (test code = Abnormal 20002-2) [facility] 17:21:28 Test Item Value Reference Range Interpretation Comments APTT Patient (test code 46 See_Comment H [Au tomated message] = 3173-2) The system [employer] generated this result transmitted ref erence range: 26 - 36 Seconds. The reference range was not used to int erpret this result as normal/abnormal . Lab Interpretation (test Abnormal code = 24742-4) [facility] (for use with Heparin Drip)2022-10-29 17:21:28 Test Item Value Reference Range Interpretation Comments APTT Patient (test code 46 See_Comment H [Au tomated message] = 3173-2) The system [employer] generated this result transmitted ref erence range: 26 - 36 Seconds. The reference range was not used to int erpret this result as normal/abnormal . Lab Interpretation (test Abnormal code = 85644-2) [facility] GLUCOSE (AUTOMATED)2022-10-29 16:42:16 Test Item Value Reference Range Interpretation Comments POCT GLU (test code = 2879848638) 216 mg/dL 70-110 H Lab Interpretation (test code = Abnormal 69700-6) [facility] GLUCOSE (AUTOMATED)2022-10-29 16:42:16 Test Item Value Reference Range Interpretation Comments POCT GLU (test code = 2181929462) 216 mg/dL 70-110 H Lab Interpretation (test code = Abnormal 83376-8) [facility] GLUCOSE (AUTOMATED)2022-10-29 13:05:32 Test Item Value Reference Range Interpretation Comments POCT GLU (test code = 7926912766) 218 mg/dL 70-110 H Lab Interpretation (test code = Abnormal 53958-4) [facility] GLUCOSE (AUTOMATED)2022-10-29 13:05:32 Test Item Value Reference Range Interpretation Comments POCT GLU (test code = 2687569102) 218 mg/dL 70-110 H Lab Interpretation (test code = Abnormal 01368-5) [facility] PARTIAL THRMPLAS [id number] 05:13:07 Test Item Value Reference Range Interpretation Comments APTT Patient (test code 79 See_Comment H [Au tomated message] = 3173-2) The system [employer] generated this result transmitted ref erence range: 26 - 36 Seconds. The reference range was not used to int erpret this result as normal/abnormal . Lab Interpretation (test Abnormal code = 41792-1) [facility] THRMPLAS [id number] 05:13:07 Test Item Value Reference Range Interpretation Comments APTT Patient (test code 79 See_Comment H [Au tomated message] = 3173-2) The system [employer] generated this result transmitted ref erence range: 26 - 36 Seconds. The reference range was not used to int erpret this result as normal/abnormal . Lab Interpretation (test Abnormal code = 49473-5) [facility] GLUCOSE (AUTOMATED)2022-10-29 01:37:17 Test Item Value Reference Range Interpretation Comments POCT GLU (test code = 0374521088) 162 mg/dL 70-110 H Lab Interpretation (test code = Abnormal 76805-3) [facility] GLUCOSE (AUTOMATED)2022-10-29 01:37:17 Test Item Value Reference Range Interpretation Comments POCT GLU (test code = 1730486710) 162 mg/dL 70-110 H Lab Interpretation (test code = Abnormal 21504-6) [facility] GLUCOSE (AUTOMATED)2022-10-29 01:37:17 Test Item Value Reference Range Interpretation Comments POCT GLU (test code = 9431032074) 162 mg/dL 70-110 H Lab Interpretation (test code = Abnormal 34097-2) [facility] GLUCOSE (AUTOMATED)2022-10-28 22:17:08 Test Item Value Reference Range Interpretation Comments POCT GLU (test code = 2648860348) 183 mg/dL 70-110 H Lab Interpretation (test code = Abnormal 15467-4) [facility] GLUCOSE (AUTOMATED)2022-10-28 22:17:08 Test Item Value Reference Range Interpretation Comments POCT GLU (test code = 1920741019) 183 mg/dL 70-110 H Lab Interpretation (test code = Abnormal 73582-6) [facility] GLUCOSE (AUTOMATED)2022-10-28 22:17:08 Test Item Value Reference Range Interpretation Comments POCT GLU (test code = 3045134447) 183 mg/dL 70-110 H Lab Interpretation (test code = Abnormal 99320-8) [facility] ACT LOW [id number] 19:02:30 Test Item Value Reference Range Interpretation Comments ACTLR (test code = 201 See_Comment H [Automat ed message] 1637181641) The system [employer] generated this result transmitted ref erence range: 89 - 169 Seconds. The reference range was not used to int erpret this result as normal/abnormal . Lab Interpretation (test Abnormal code = 10291-5) [facility] ACT LOW [id number] 19:02:30 Test Item Value Reference Range Interpretation Comments ACTLR (test code = 201 See_Comment H [Automat ed message] 8564614931) The system [employer] generated this result transmitted ref erence range: 89 - 169 Seconds. The reference range was not used to int erpret this result as normal/abnormal . Lab Interpretation (test Abnormal code = 03350-0) [facility] ACT LOW [id number] 19:02:30 Test Item Value Reference Range Interpretation Comments ACTLR (test code = 201 See_Comment H [Automat ed message] 8366377879) The system [employer] generated this result transmitted ref erence range: 89 - 169 Seconds. The reference range was not used to int erpret this result as normal/abnormal . Lab Interpretation (test Abnormal code = 05674-6) [facility] GLUCOSE (AUTOMATED)2022-10-28 01:14:18 Test Item Value Reference Range Interpretation Comments POCT GLU (test code = 4141706381) 165 mg/dL 70-110 H Lab Interpretation (test code = Abnormal 29856-4) [facility] GLUCOSE (AUTOMATED)2022-10-28 01:14:18 Test Item Value Reference Range Interpretation Comments POCT GLU (test code = 1428790524) 165 mg/dL 70-110 H Lab Interpretation (test code = Abnormal 82143-7) [facility] GLUCOSE (AUTOMATED)2022-10-28 01:14:18 Test Item Value Reference Range Interpretation Comments POCT GLU (test code = 0298885194) 165 mg/dL 70-110 H Lab Interpretation (test code = Abnormal 48670-9) [facility] GLUCOSE (AUTOMATED)2022-10-27 22:59:53 Test Item Value Reference Range Interpretation Comments POCT GLU (test code = 5716539737) 222 mg/dL 70-110 H Lab Interpretation (test code = Abnormal 14422-5) [facility] GLUCOSE (AUTOMATED)2022-10-27 22:59:53 Test Item Value Reference Range Interpretation Comments POCT GLU (test code = 5466352519) 222 mg/dL 70-110 H Lab Interpretation (test code = Abnormal 92904-6) [facility] GLUCOSE (AUTOMATED)2022-10-27 22:59:53 Test Item Value Reference Range Interpretation Comments POCT GLU (test code = 8247222763) 222 mg/dL 70-110 H Lab Interpretation (test code = Abnormal 15575-8) [facility] GLUCOSE (AUTOMATED)2022-10-27 21:51:22 Test Item Value Reference Range Interpretation Comments POCT GLU (test code = 2034722016) 230 mg/dL 70-110 H Lab Interpretation (test code = Abnormal 76653-6) [facility] GLUCOSE (AUTOMATED)2022-10-27 21:51:22 Test Item Value Reference Range Interpretation Comments POCT GLU (test code = 7130541294) 230 mg/dL 70-110 H Lab Interpretation (test code = Abnormal 25855-1) [facility] GLUCOSE (AUTOMATED)2022-10-27 21:51:22 Test Item Value Reference Range Interpretation Comments POCT GLU (test code = 1381921043) 230 mg/dL 70-110 H Lab Interpretation (test code = Abnormal 00217-0) [facility]-27 18:21:08 Test Item Value Reference Range Interpretation Comments APTT Patient (test code = 36 See_Comment [ Automated message] 3173-2) The system [employer] generated this result transmitted ref erence range: 26 - 36 Seconds. The re ference range was not u sed to interpret this result as normal/abnor mal. Lab Interpretation (test Normal code = 27333-4) [facility] Drip[facility]2022-10-27 18:21:08 Test Item Value Reference Range Interpretation Comments APTT Patient (test code = 36 See_Comment [ Automated message] 3173-2) The system [employer] generated this result transmitted ref erence range: 26 - 36 Seconds. The re ference range was not u sed to interpret this result as normal/abnor mal. Lab Interpretation (test Normal code = 14654-0) [facility] D[facility]2022-10-27 18:21:08 Test Item Value Reference Range Interpretation Comments APTT Patient (test code = 36 See_Comment [ Automated message] 3173-2) The system [employer] generated this result transmitted ref erence range: 26 - 36 Seconds. The re ference range was not u sed to interpret this result as normal/abnor mal. Lab Interpretation (test Normal code = 59720-9) [facility] GLUCOSE (AUTOMATED)2022-10-27 17:46:56 Test Item Value Reference Range Interpretation Comments POCT GLU (test code = 2707293419) 286 mg/dL 70-110 H Lab Interpretation (test code = Abnormal 64077-7) [facility] GLUCOSE (AUTOMATED)2022-10-27 17:46:56 Test Item Value Reference Range Interpretation Comments POCT GLU (test code = 5943127711) 286 mg/dL 70-110 H Lab Interpretation (test code = Abnormal 40679-7) [facility] GLUCOSE (AUTOMATED)2022-10-27 17:46:56 Test Item Value Reference Range Interpretation Comments POCT GLU (test code = 6901160575) 286 mg/dL 70-110 H Lab Interpretation (test code = Abnormal 97399-6) [id number]10 Test Item Value Reference Range Interpretation Comments TROPONIN I (test code = 0.019 ng/mL <=0.034 7156420572) LOW (test code = LOW) Reference (Normal) Range (defined by the 99th percentile reference limit): <= 0.034 ng/mL Note: Cardiac troponin begins to rise 3-4 hours after the onset of ischemia. Repeat in 4-6 hours if the sample was drawn within 3-4 hours of the onset of the symptom and found normal. Diagnosis of myocardial injury is made with acute changes in cTn concentrations with at least one serial sample above the 99th percentile upper reference limit (URL), taken together with the patient's clinical presentation. Biotin has been reported to cause a negative bias, interpret results relative to patient's use of biotin. Lab Interpretation Normal (test code = 00159-2) [facility] [id number] 15:38:10 Test Item Value Reference Range Interpretation Comments TROPONIN I (test code = 0.019 ng/mL <=0.034 2260978145) LOW (test code = LOW) Reference (Normal) Range (defined by the 99th percentile reference limit): <= 0.034 ng/mL Note: Cardiac troponin begins to rise 3-4 hours after the onset of ischemia. Repeat in 4-6 hours if the sample was drawn within 3-4 hours of the onset of the symptom and found normal. Diagnosis of myocardial injury is made with acute changes in cTn concentrations with at least one serial sample above the 99th percentile upper reference limit (URL), taken together with the patient's clinical presentation. Biotin has been reported to cause a negative bias, interpret results relative to patient's use of biotin. Lab Interpretation Normal (test code = 97039-2) [facility] [id number] 15:38:10 Test Item Value Reference Range Interpretation Comments TROPONIN I (test code = 0.019 ng/mL <=0.034 7856400746) LOW (test code = LOW) Reference (Normal) Range (defined by the 99th percentile reference limit): <= 0.034 ng/mL Note: Cardiac troponin begins to rise 3-4 hours after the onset of ischemia. Repeat in 4-6 hours if the sample was drawn within 3-4 hours of the onset of the symptom and found normal. Diagnosis of myocardial injury is made with acute changes in cTn concentrations with at least one serial sample above the 99th percentile upper reference limit (URL), taken together with the patient's clinical presentation. Biotin has been reported to cause a negative bias, interpret results relative to patient's use of biotin. Lab Interpretation Normal (test code = 10008-5) [facility]2022-10-27 13:48:21 Test Item Value Reference Range Interpretation Comments POCT GLU (test code = 3226521108) 171 mg/dL 70-110 H Lab Interpretation (test code = Abnormal 52513-6) [facility] GLUCOSE (AUTOMATED)2022-10-27 13:48:21 Test Item Value Reference Range Interpretation Comments POCT GLU (test code = 0194560156) 171 mg/dL 70-110 H Lab Interpretation (test code = Abnormal 78661-6) [facility] GLUCOSE (AUTOMATED)2022-10-27 13:48:21 Test Item Value Reference Range Interpretation Comments POCT GLU (test code = 8659127434) 171 mg/dL 70-110 H Lab Interpretation (test code = Abnormal 40453-1) [facility] METABOLIC PANEL (NA, K, CL, CO2, GLUCOSE, BUN, CREATININE, CA)2022-10-27 10:01:02 Test Item Value Reference Range Interpretation Comments NA (test code = 136 mmol/L 135-145 2203255760) K (test code = 3.7 mmol/L 3.5-5.0 0379444110) CL (test code = 98 mmol/L 98-108 2961613877) CO2 TOTAL (test code = 35 mmol/L 23-31 H 8339848703) AGAP (test code = 3 2-16 9037806772) BUN (test code = 14 mg/dL 7-23 9381854127) GLUCOSE (test code = 154 mg/dL 70-110 H 1314375342) CREATININE (test code = 0.54 mg/dL 0.50-1.04 1068324518) CALCIUM (test code = 8.7 mg/dL 8.6-10.6 9760361636) eGFR (test code = 109.5 mL/min/1.73m2 4964445914) LOW (test code = LOW) Association of Glomerular Filtration Rate (GFR) and Staging of Kidney Disease* + --+ --+ ------+| GFR (mL/min/1.73 m2) ?| With Kidney Damage ?| ?Without Kidney Damage+ --------+ --------+ +| ?>90 ?| ?Stage one ?| ? Normal ?+ ---+ ---+ -------+| ?60-89 ?| ?Stage two ?| ? Decreased GFR ? + --+ --+ ------+| ?30-59 ?| ?Stage three ?| ? Stage three ? + --+ --+ ------+| ?15-29 ?| ?Stage four ? | ? Stage four ?+ ---+ ---+ -------+| ?<15 (or dialysis) ? ?| ?Stage five ? | ? Stage five ?+ ---+ ---+ -------+ *Each stage assumes the associated GFR level has been in effect for at least three months. ?Stages 1 to 5, with or without kidney disease, indicate chronic kidney disease. Notes: Determination of stages one and two (with eGFR >59mL/min/1.73 m2) requires estimation of kidney damage for at least three months as defined by structural or functional abnormalities of the kidney, manifested by either:Pathological abnormalities or Markers of kidney damage (including abnormalities in the composition of the blood or urine or abnormalities in imaging tests). Lab Interpretation Abnormal (test code = 86331-7) [facility]:01:02 Test Item Value Reference Range Interpretation Comments MAGNESIUM (test code = 6664534528) 1.8 mg/dL 1.7-2.4 Lab Interpretation (test code = Normal 59158-3) [facility] (NA, K, CL, CO2, GLUCOSE, BUN, CREATININE, CA)2022-10-27 10:01:02 Test Item Value Reference Range Interpretation Comments NA (test code = 136 mmol/L 135-145 3334970286) K (test code = 3.7 mmol/L 3.5-5.0 6232697256) CL (test code = 98 mmol/L 98-108 6780863646) CO2 TOTAL (test code = 35 mmol/L 23-31 H 0388947103) AGAP (test code = 3 2-16 5882858378) BUN (test code = 14 mg/dL 7-23 8640109491) GLUCOSE (test code = 154 mg/dL 70-110 H 5620197235) CREATININE (test code = 0.54 mg/dL 0.50-1.04 9757109032) CALCIUM (test code = 8.7 mg/dL 8.6-10.6 9568443977) eGFR (test code = 109.5 mL/min/1.73m2 2208370080) LOW (test code = LOW) Association of Glomerular Filtration Rate (GFR) and Staging of Kidney Disease* + --+ --+ ------+| GFR (mL/min/1.73 m2) ?| With Kidney Damage ?| ?Without Kidney Damage+ --------+ --------+ +| ?>90 ?| ?Stage one ?| ? Normal ?+ ---+ ---+ -------+| ?60-89 ?| ?Stage two ?| ? Decreased GFR ? + --+ --+ ------+| ?30-59 ?| ?Stage three ?| ? Stage three ? + --+ --+ ------+| ?15-29 ?| ?Stage four ? | ? Stage four ?+ ---+ ---+ -------+| ?<15 (or dialysis) ? ?| ?Stage five ? | ? Stage five ?+ ---+ ---+ -------+ *Each stage assumes the associated GFR level has been in effect for at least three months. ?Stages 1 to 5, with or without kidney disease, indicate chronic kidney disease. Notes: Determination of stages one and two (with eGFR >59mL/min/1.73 m2) requires estimation of kidney damage for at least three months as defined by structural or functional abnormalities of the kidney, manifested by either:Pathological abnormalities or Markers of kidney damage (including abnormalities in the composition of the blood or urine or abnormalities in imaging tests). Lab Interpretation Abnormal (test code = 96114-9) [facility] 10:01:02 Test Item Value Reference Range Interpretation Comments MAGNESIUM (test code = 1667934782) 1.8 mg/dL 1.7-2.4 Lab Interpretation (test code = Normal 67565-7) [facility] (NA, K, CL, CO2, GLUCOSE, BUN, CREATININE, CA)2022-10-27 10:01:02 Test Item Value Reference Range Interpretation Comments NA (test code = 136 mmol/L 135-145 7547618265) K (test code = 3.7 mmol/L 3.5-5.0 0889887162) CL (test code = 98 mmol/L 98-108 2792609924) CO2 TOTAL (test code = 35 mmol/L 23-31 H 0757627482) AGAP (test code = 3 2-16 6336331645) BUN (test code = 14 mg/dL 7-23 1350796934) GLUCOSE (test code = 154 mg/dL 70-110 H 4320044677) CREATININE (test code = 0.54 mg/dL 0.50-1.04 0971277440) CALCIUM (test code = 8.7 mg/dL 8.6-10.6 9765834591) eGFR (test code = 109.5 mL/min/1.73m2 7478769649) LOW (test code = LOW) Association of Glomerular Filtration Rate (GFR) and Staging of Kidney Disease* + --+ --+ ------+| GFR (mL/min/1.73 m2) ?| With Kidney Damage ?| ?Without Kidney Damage+ --------+ --------+ +| ?>90 ?| ?Stage one ?| ? Normal ?+ ---+ ---+ -------+| ?60-89 ?| ?Stage two ?| ? Decreased GFR ? + --+ --+ ------+| ?30-59 ?| ?Stage three ?| ? Stage three ? + --+ --+ ------+| ?15-29 ?| ?Stage four ? | ? Stage four ?+ ---+ ---+ -------+| ?<15 (or dialysis) ? ?| ?Stage five ? | ? Stage five ?+ ---+ ---+ -------+ *Each stage assumes the associated GFR level has been in effect for at least three months. ?Stages 1 to 5, with or without kidney disease, indicate chronic kidney disease. Notes: Determination of stages one and two (with eGFR >59mL/min/1.73 m2) requires estimation of kidney damage for at least three months as defined by structural or functional abnormalities of the kidney, manifested by either:Pathological abnormalities or Markers of kidney damage (including abnormalities in the composition of the blood or urine or abnormalities in imaging tests). Lab Interpretation Abnormal (test code = 41474-3) [facility] 10:01:02 Test Item Value Reference Range Interpretation Comments MAGNESIUM (test code = 2543306484) 1.8 mg/dL 1.7-2.4 Lab Interpretation (test code = Normal 96914-2) [facility] WITH [id number] 09:40:42 Test Item Value Reference Range Interpretation Comments WBC (test code = 7.06 See_Comment [Automated 6690-2) message] The sy stem which generated this result transmitted reference range : 4.30 - 11.10 10*3/?L. The reference range was not used to interpret this result as normal/abnormal . RBC (test code = 3.83 See_Comment L [Automated 789-8) message] The sy stem which generated this result transmitted reference range : 3.93 - 5.25 10*6/?L. The reference range was not used to interpret this result as normal/abnormal . HGB (test code = 10.4 g/dL 11.6-15.0 L 718-7) HCT (test code = 34.1 % 35.7-45.2 L 4544-3) MCV (test code = 89.0 fL 80.6-95.5 787-2) MCH (test code = 27.2 pg 25.9-32.8 785-6) MCHC (test code = 30.5 g/dL 31.6-35.1 L 786-4) RDW-SD (test code = 53.0 fL 39.0-49.9 H 59063-8) RDW-CV (test code = 16.3 % 12.0-15.5 H 788-0) PLT (test code = 277 See_Comment [Automated 777-3) message] The sy stem which generated this result transmitted reference range : 166 - 358 10*3/ ?L. The reference r federica was not used to interpret this result as normal/abnormal . MPV (test code = 9.6 fL 9.5-12.9 45882-2) NRBC/100 WBC (test 0.0 See_Comment [Automat ed code = 9613501560) message] The system which generated this result transmitted reference range : 0.0 - 10.0 /100 WBCs. The refer ence range was not u sed to interpret th is result as normal/abnormal . NRBC x10^3 (test code See_Comment [Auto mated = 1730754716) message] The s ystem which generated this result transmitted reference range : 10*3/?L. The reference range was not used to interpret this result as normal/abnormal . GRAN MAT (NEUT) % 56.5 % (test code = 770-8) IMM GRAN % (test code 0.10 % = 9925344754) LYMPH % (test code = 29.5 % 736-9) MONO % (test code = 10.8 % 5905-5) EOS % (test code = 2.7 % 713-8) BASO % (test code = 0.4 % 706-2) GRAN MAT x10^3(ANC) 3.99 10*3/uL 1.88-7.09 (test code = 8518944172) IMM GRAN x10^3 (test 0.00-0.06 code = 2389431104) LYMPH x10^3 (test code 2.08 10*3/uL 1.32-3.29 = 731-0) MONO x10^3 (test code 0.76 10*3/uL 0.33-0.92 = 742-7) EOS x10^3 (test code = 0.19 10*3/uL 0.03-0.39 711-2) BASO x10^3 (test code 0.03 10*3/uL 0.01-0.07 = 704-7) Lab Interpretation Abnormal (test code = 82048-2) [facility] WITH [id number] 09:40:42 Test Item Value Reference Range Interpretation Comments WBC (test code = 7.06 See_Comment [Automated 5190-2) message] The sy stem which generated this result transmitted reference range : 4.30 - 11.10 10*3/?L. The reference range was not used to interpret this result as normal/abnormal . RBC (test code = 3.83 See_Comment L [Automated 719-8) message] The sy stem which generated this result transmitted reference range : 3.93 - 5.25 10*6/?L. The reference range was not used to interpret this result as normal/abnormal . HGB (test code = 10.4 g/dL 11.6-15.0 L 718-7) HCT (test code = 34.1 % 35.7-45.2 L 4544-3) MCV (test code = 89.0 fL 80.6-95.5 787-2) MCH (test code = 27.2 pg 25.9-32.8 785-6) MCHC (test code = 30.5 g/dL 31.6-35.1 L 786-4) RDW-SD (test code = 53.0 fL 39.0-49.9 H 14336-7) RDW-CV (test code = 16.3 % 12.0-15.5 H 788-0) PLT (test code = 277 See_Comment [Automated 777-3) message] The sy stem which generated this result transmitted reference range : 166 - 358 10*3/ ?L. The reference r federica was not used to interpret this result as normal/abnormal . MPV (test code = 9.6 fL 9.5-12.9 52963-1) NRBC/100 WBC (test 0.0 See_Comment [Automat ed code = 4472331037) message] The system which generated this result transmitted reference range : 0.0 - 10.0 /100 WBCs. The refer ence range was not u sed to interpret th is result as normal/abnormal . NRBC x10^3 (test code See_Comment [Auto mated = 7538056550) message] The s ystem which generated this result transmitted reference range : 10*3/?L. The reference range was not used to interpret this result as normal/abnormal . GRAN MAT (NEUT) % 56.5 % (test code = 770-8) IMM GRAN % (test code 0.10 % = 9976398974) LYMPH % (test code = 29.5 % 736-9) MONO % (test code = 10.8 % 5905-5) EOS % (test code = 2.7 % 713-8) BASO % (test code = 0.4 % 706-2) GRAN MAT x10^3(ANC) 3.99 10*3/uL 1.88-7.09 (test code = 3921424930) IMM GRAN x10^3 (test 0.00-0.06 code = 1631594319) LYMPH x10^3 (test code 2.08 10*3/uL 1.32-3.29 = 731-0) MONO x10^3 (test code 0.76 10*3/uL 0.33-0.92 = 742-7) EOS x10^3 (test code = 0.19 10*3/uL 0.03-0.39 711-2) BASO x10^3 (test code 0.03 10*3/uL 0.01-0.07 = 704-7) Lab Interpretation Abnormal (test code = 80175-2) [facility] WITH [id number] 09:40:42 Test Item Value Reference Range Interpretation Comments WBC (test code = 7.06 See_Comment [Automated 6690-2) message] The sy stem which generated this result transmitted reference range : 4.30 - 11.10 10*3/?L. The reference range was not used to interpret this result as normal/abnormal . RBC (test code = 3.83 See_Comment L [Automated 789-8) message] The sy stem which generated this result transmitted reference range : 3.93 - 5.25 10*6/?L. The reference range was not used to interpret this result as normal/abnormal . HGB (test code = 10.4 g/dL 11.6-15.0 L 718-7) HCT (test code = 34.1 % 35.7-45.2 L 4544-3) MCV (test code = 89.0 fL 80.6-95.5 787-2) MCH (test code = 27.2 pg 25.9-32.8 785-6) MCHC (test code = 30.5 g/dL 31.6-35.1 L 786-4) RDW-SD (test code = 53.0 fL 39.0-49.9 H 29675-7) RDW-CV (test code = 16.3 % 12.0-15.5 H 788-0) PLT (test code = 277 See_Comment [Automated 777-3) message] The sy stem which generated this result transmitted reference range : 166 - 358 10*3/ ?L. The reference r federica was not used to interpret this result as normal/abnormal . MPV (test code = 9.6 fL 9.5-12.9 14388-5) NRBC/100 WBC (test 0.0 See_Comment [Automat ed code = 4030205140) message] The system which generated this result transmitted reference range : 0.0 - 10.0 /100 WBCs. The refer ence range was not u sed to interpret th is result as normal/abnormal . NRBC x10^3 (test code See_Comment [Auto mated = 5655826675) message] The s ystem which generated this result transmitted reference range : 10*3/?L. The reference range was not used to interpret this result as normal/abnormal . GRAN MAT (NEUT) % 56.5 % (test code = 770-8) IMM GRAN % (test code 0.10 % = 4640869278) LYMPH % (test code = 29.5 % 736-9) MONO % (test code = 10.8 % 5905-5) EOS % (test code = 2.7 % 713-8) BASO % (test code = 0.4 % 706-2) GRAN MAT x10^3(ANC) 3.99 10*3/uL 1.88-7.09 (test code = 9043652756) IMM GRAN x10^3 (test 0.00-0.06 code = 8752060663) LYMPH x10^3 (test code 2.08 10*3/uL 1.32-3.29 = 731-0) MONO x10^3 (test code 0.76 10*3/uL 0.33-0.92 = 742-7) EOS x10^3 (test code = 0.19 10*3/uL 0.03-0.39 711-2) BASO x10^3 (test code 0.03 10*3/uL 0.01-0.07 = 704-7) Lab Interpretation Abnormal (test code = 94690-2) [facility] GLUCOSE (AUTOMATED)2022-10-27 02:04:42 Test Item Value Reference Range Interpretation Comments POCT GLU (test code = 3502058502) 197 mg/dL 70-110 H Lab Interpretation (test code = Abnormal 52656-2) [facility] GLUCOSE (AUTOMATED)2022-10-27 02:04:42 Test Item Value Reference Range Interpretation Comments POCT GLU (test code = 6158654159) 197 mg/dL 70-110 H Lab Interpretation (test code = Abnormal 43715-4) [facility] GLUCOSE (AUTOMATED)2022-10-27 02:04:42 Test Item Value Reference Range Interpretation Comments POCT GLU (test code = 6597200758) 197 mg/dL 70-110 H Lab Interpretation (test code = Abnormal 17025-9) [facility] METABOLIC PANEL (NA, K, CL, CO2, GLUCOSE, BUN, CREATININE, CA)2022-10-26 22:22:34 Test Item Value Reference Range Interpretation Comments NA (test code = 136 mmol/L 135-145 3423887174) K (test code = 3.8 mmol/L 3.5-5.0 8734638953) CL (test code = 98 mmol/L 98-108 0755495286) CO2 TOTAL (test code = 32 mmol/L 23-31 H 7891632344) AGAP (test code = 6 2-16 5877527699) BUN (test code = 12 mg/dL 7-23 2041436231) GLUCOSE (test code = 174 mg/dL 70-110 H 9360562443) CREATININE (test code = 0.52 mg/dL 0.50-1.04 6249118994) CALCIUM (test code = 8.7 mg/dL 8.6-10.6 6183016573) eGFR (test code = 114.3 mL/min/1.73m2 3576804336) LOW (test code = LOW) Association of Glomerular Filtration Rate (GFR) and Staging of Kidney Disease* + --+ --+ ------+| GFR (mL/min/1.73 m2) ?| With Kidney Damage ?| ?Without Kidney Damage+ --------+ --------+ +| ?>90 ?| ?Stage one ?| ? Normal ?+ ---+ ---+ -------+| ?60-89 ?| ?Stage two ?| ? Decreased GFR ? + --+ --+ ------+| ?30-59 ?| ?Stage three ?| ? Stage three ? + --+ --+ ------+| ?15-29 ?| ?Stage four ? | ? Stage four ?+ ---+ ---+ -------+| ?<15 (or dialysis) ? ?| ?Stage five ? | ? Stage five ?+ ---+ ---+ -------+ *Each stage assumes the associated GFR level has been in effect for at least three months. ?Stages 1 to 5, with or without kidney disease, indicate chronic kidney disease. Notes: Determination of stages one and two (with eGFR >59mL/min/1.73 m2) requires estimation of kidney damage for at least three months as defined by structural or functional abnormalities of the kidney, manifested by either:Pathological abnormalities or Markers of kidney damage (including abnormalities in the composition of the blood or urine or abnormalities in imaging tests). Lab Interpretation Abnormal (test code = 42438-7) [facility] Test Item Value Reference Range Interpretation Comments MAGNESIUM (test code = 1722112033) 1.5 mg/dL 1.7-2.4 L Lab Interpretation (test code = Abnormal 83301-5) [facility] (NA, K, CL, CO2, GLUCOSE, BUN, CREATININE, CA)2022-10-26 22:22:34 Test Item Value Reference Range Interpretation Comments NA (test code = 136 mmol/L 135-145 3612813948) K (test code = 3.8 mmol/L 3.5-5.0 4392797944) CL (test code = 98 mmol/L 98-108 6295106455) CO2 TOTAL (test code = 32 mmol/L 23-31 H 0179716585) AGAP (test code = 6 2-16 0383273547) BUN (test code = 12 mg/dL 7-23 3721832045) GLUCOSE (test code = 174 mg/dL 70-110 H 5791226441) CREATININE (test code = 0.52 mg/dL 0.50-1.04 3588374967) CALCIUM (test code = 8.7 mg/dL 8.6-10.6 8610578256) eGFR (test code = 114.3 mL/min/1.73m2 2648891353) LOW (test code = LOW) Association of Glomerular Filtration Rate (GFR) and Staging of Kidney Disease* + --+ --+ ------+| GFR (mL/min/1.73 m2) ?| With Kidney Damage ?| ?Without Kidney Damage+ --------+ --------+ +| ?>90 ?| ?Stage one ?| ? Normal ?+ ---+ ---+ -------+| ?60-89 ?| ?Stage two ?| ? Decreased GFR ? + --+ --+ ------+| ?30-59 ?| ?Stage three ?| ? Stage three ? + --+ --+ ------+| ?15-29 ?| ?Stage four ? | ? Stage four ?+ ---+ ---+ -------+| ?<15 (or dialysis) ? ?| ?Stage five ? | ? Stage five ?+ ---+ ---+ -------+ *Each stage assumes the associated GFR level has been in effect for at least three months. ?Stages 1 to 5, with or without kidney disease, indicate chronic kidney disease. Notes: Determination of stages one and two (with eGFR >59mL/min/1.73 m2) requires estimation of kidney damage for at least three months as defined by structural or functional abnormalities of the kidney, manifested by either:Pathological abnormalities or Markers of kidney damage (including abnormalities in the composition of the blood or urine or abnormalities in imaging tests). Lab Interpretation Abnormal (test code = 60879-1) [facility] 22:22:34 Test Item Value Reference Range Interpretation Comments MAGNESIUM (test code = 6487426395) 1.5 mg/dL 1.7-2.4 L Lab Interpretation (test code = Abnormal 50024-3) [facility] (NA, K, CL, CO2, GLUCOSE, BUN, CREATININE, CA)2022-10-26 22:22:34 Test Item Value Reference Range Interpretation Comments NA (test code = 136 mmol/L 135-145 4519008312) K (test code = 3.8 mmol/L 3.5-5.0 2156983791) CL (test code = 98 mmol/L 98-108 3852296478) CO2 TOTAL (test code = 32 mmol/L 23-31 H 6742732992) AGAP (test code = 6 2-16 2052220782) BUN (test code = 12 mg/dL 7-23 7518489764) GLUCOSE (test code = 174 mg/dL 70-110 H 6192174209) CREATININE (test code = 0.52 mg/dL 0.50-1.04 9483065556) CALCIUM (test code = 8.7 mg/dL 8.6-10.6 1700636063) eGFR (test code = 114.3 mL/min/1.73m2 8322064696) LOW (test code = LOW) Association of Glomerular Filtration Rate (GFR) and Staging of Kidney Disease* + --+ --+ ------+| GFR (mL/min/1.73 m2) ?| With Kidney Damage ?| ?Without Kidney Damage+ --------+ --------+ +| ?>90 ?| ?Stage one ?| ? Normal ?+ ---+ ---+ -------+| ?60-89 ?| ?Stage two ?| ? Decreased GFR ? + --+ --+ ------+| ?30-59 ?| ?Stage three ?| ? Stage three ? + --+ --+ ------+| ?15-29 ?| ?Stage four ? | ? Stage four ?+ ---+ ---+ -------+| ?<15 (or dialysis) ? ?| ?Stage five ? | ? Stage five ?+ ---+ ---+ -------+ *Each stage assumes the associated GFR level has been in effect for at least three months. ?Stages 1 to 5, with or without kidney disease, indicate chronic kidney disease. Notes: Determination of stages one and two (with eGFR >59mL/min/1.73 m2) requires estimation of kidney damage for at least three months as defined by structural or functional abnormalities of the kidney, manifested by either:Pathological abnormalities or Markers of kidney damage (including abnormalities in the composition of the blood or urine or abnormalities in imaging tests). Lab Interpretation Abnormal (test code = 09010-7) [facility] 22:22:34 Test Item Value Reference Range Interpretation Comments MAGNESIUM (test code = 0959366663) 1.5 mg/dL 1.7-2.4 L Lab Interpretation (test code = Abnormal 40423-2) [facility] GLUCOSE (AUTOMATED)2022-10-26 21:49:52 Test Item Value Reference Range Interpretation Comments POCT GLU (test code = 4892130001) 170 mg/dL 70-110 H Lab Interpretation (test code = Abnormal 89882-9) [facility] GLUCOSE (AUTOMATED)2022-10-26 21:49:52 Test Item Value Reference Range Interpretation Comments POCT GLU (test code = 6913005272) 170 mg/dL 70-110 H Lab Interpretation (test code = Abnormal 66869-7) [facility] GLUCOSE (AUTOMATED)2022-10-26 21:49:52 Test Item Value Reference Range Interpretation Comments POCT GLU (test code = 1097857372) 170 mg/dL 70-110 H Lab Interpretation (test code = Abnormal 55481-1) [facility] GLUCOSE (AUTOMATED)2022-10-26 17:58:19 Test Item Value Reference Range Interpretation Comments POCT GLU (test code = 9902678763) 222 mg/dL 70-110 H Lab Interpretation (test code = Abnormal 75605-1) [facility] GLUCOSE (AUTOMATED)2022-10-26 17:58:19 Test Item Value Reference Range Interpretation Comments POCT GLU (test code = 1431586642) 222 mg/dL 70-110 H Lab Interpretation (test code = Abnormal 03378-6) [facility] GLUCOSE (AUTOMATED)2022-10-26 17:58:19 Test Item Value Reference Range Interpretation Comments POCT GLU (test code = 8168665887) 222 mg/dL 70-110 H Lab Interpretation (test code = Abnormal 59882-3) [facility] GLUCOSE (AUTOMATED)2022-10-26 14:21:08 Test Item Value Reference Range Interpretation Comments POCT GLU (test code = 2791267880) 137 mg/dL 70-110 H Lab Interpretation (test code = Abnormal 79573-9) [facility] GLUCOSE (AUTOMATED)2022-10-26 14:21:08 Test Item Value Reference Range Interpretation Comments POCT GLU (test code = 7501427660) 137 mg/dL 70-110 H Lab Interpretation (test code = Abnormal 41314-9) [facility] GLUCOSE (AUTOMATED)2022-10-26 14:21:08 Test Item Value Reference Range Interpretation Comments POCT GLU (test code = 5599581354) 137 mg/dL 70-110 H Lab Interpretation (test code = Abnormal 69339-0) [facility] [id number] 08:50:55 Test Item Value Reference Range Interpretation Comments TROPONIN I (test code = 0.008 ng/mL <=0.034 3607778648) LOW (test code = LOW) Reference (Normal) Range (defined by the 99th percentile reference limit): <= 0.034 ng/mL Note: Cardiac troponin begins to rise 3-4 hours after the onset of ischemia. Repeat in 4-6 hours if the sample was drawn within 3-4 hours of the onset of the symptom and found normal. Diagnosis of myocardial injury is made with acute changes in cTn concentrations with at least one serial sample above the 99th percentile upper reference limit (URL), taken together with the patient's clinical presentation. Biotin has been reported to cause a negative bias, interpret results relative to patient's use of biotin. Lab Interpretation Normal (test code = 46183-9) [facility] [id number] 08:50:55 Test Item Value Reference Range Interpretation Comments TROPONIN I (test code = 0.008 ng/mL <=0.034 6163224980) LOW (test code = LOW) Reference (Normal) Range (defined by the 99th percentile reference limit): <= 0.034 ng/mL Note: Cardiac troponin begins to rise 3-4 hours after the onset of ischemia. Repeat in 4-6 hours if the sample was drawn within 3-4 hours of the onset of the symptom and found normal. Diagnosis of myocardial injury is made with acute changes in cTn concentrations with at least one serial sample above the 99th percentile upper reference limit (URL), taken together with the patient's clinical presentation. Biotin has been reported to cause a negative bias, interpret results relative to patient's use of biotin. Lab Interpretation Normal (test code = 56639-3) [facility] [id number] 08:50:55 Test Item Value Reference Range Interpretation Comments TROPONIN I (test code = 0.008 ng/mL <=0.034 8959807744) LOW (test code = LOW) Reference (Normal) Range (defined by the 99th percentile reference limit): <= 0.034 ng/mL Note: Cardiac troponin begins to rise 3-4 hours after the onset of ischemia. Repeat in 4-6 hours if the sample was drawn within 3-4 hours of the onset of the symptom and found normal. Diagnosis of myocardial injury is made with acute changes in cTn concentrations with at least one serial sample above the 99th percentile upper reference limit (URL), taken together with the patient's clinical presentation. Biotin has been reported to cause a negative bias, interpret results relative to patient's use of biotin. Lab Interpretation Normal (test code = 16932-4) [facility] [id number] 08:47:55 Test Item Value Reference Range Interpretation Comments NT-proBNP (test code = 1350 pg/mL <=450 H 8192880231) LOW (test code = LOW) Biotin has been reported to cause a negative bias, interpret results relative to patient's use of biotin. Lab Interpretation (test Abnormal code = 03804-7) [facility]-TERMINAL [id number] 08:47:55 Test Item Value Reference Range Interpretation Comments NT-proBNP (test code = 1350 pg/mL <=450 H 2365124145) LOW (test code = LOW) Biotin has been reported to cause a negative bias, interpret results relative to patient's use of biotin. Lab Interpretation (test Abnormal code = 53607-5) [facility] [id number] 08:47:55 Test Item Value Reference Range Interpretation Comments NT-proBNP (test code = 1350 pg/mL <=450 H 9561339982) LOW (test code = LOW) Biotin has been reported to cause a negative bias, interpret results relative to patient's use of biotin. Lab Interpretation (test Abnormal code = 88405-4) [facility]. METABOLIC PANEL ([id number])2022-10-26 08:39:16 Test Item Value Reference Range Interpretation Comments NA (test code = 138 mmol/L 135-145 3060022133) K (test code = 4.5 mmol/L 3.5-5.0 8143807741) CL (test code = 105 mmol/L 98-108 7244244682) CO2 TOTAL (test code = 27 mmol/L 23-31 8799242638) AGAP (test code = 6 2-16 3913833158) BUN (test code = 13 mg/dL 7-23 9028965466) GLUCOSE (test code = 186 mg/dL 70-110 H 7504263526) CREATININE (test code = 0.51 mg/dL 0.50-1.04 7283657251) TOTAL BILI (test code = 0.8 mg/dL 0.1-1.5 2071573131) CALCIUM (test code = 8.7 mg/dL 8.6-10.6 2260383913) T PROTEIN (test code = 6.5 g/dL 6.3-8.2 3583283593) ALBUMIN (test code = 3.7 g/dL 3.5-5.0 8254287427) ALK PHOS (test code = 54 U/L 34-122 2960993270) ALTv (test code = 16 U/L 5-35 1742-6) AST(SGOT) (test code = 32 U/L 13-40 6481873605) eGFR (test code = 116.9 mL/min/1.73m2 5238200737) LOW (test code = LOW) Association of Glomerular Filtration Rate (GFR) and Staging of Kidney Disease* + --+ --+ ------+| GFR (mL/min/1.73 m2) ?| With Kidney Damage ?| ?Without Kidney Damage+ --------+ --------+ +| ?>90 ?| ?Stage one ?| ? Normal ?+ ---+ ---+ -------+| ?60-89 ?| ?Stage two ?| ? Decreased GFR ? + --+ --+ ------+| ?30-59 ?| ?Stage three ?| ? Stage three ? + --+ --+ ------+| ?15-29 ?| ?Stage four ? | ? Stage four ?+ ---+ ---+ -------+| ?<15 (or dialysis) ? ?| ?Stage five ? | ? Stage five ?+ ---+ ---+ -------+ *Each stage assumes the associated GFR level has been in effect for at least three months. ?Stages 1 to 5, with or without kidney disease, indicate chronic kidney disease. Notes: Determination of stages one and two (with eGFR >59mL/min/1.73 m2) requires estimation of kidney damage for at least three months as defined by structural or functional abnormalities of the kidney, manifested by either:Pathological abnormalities or Markers of kidney damage (including abnormalities in the composition of the blood or urine or abnormalities in imaging tests). Lab Interpretation Abnormal (test code = 02562-7) [facility]. METABOLIC PANEL ([id number])2022-10-26 08:39:16 Test Item Value Reference Range Interpretation Comments NA (test code = 138 mmol/L 135-145 9434304606) K (test code = 4.5 mmol/L 3.5-5.0 7843268756) CL (test code = 105 mmol/L 98-108 9423729013) CO2 TOTAL (test code = 27 mmol/L 23-31 6036304574) AGAP (test code = 6 2-16 7630151635) BUN (test code = 13 mg/dL 7-23 7898497378) GLUCOSE (test code = 186 mg/dL 70-110 H 6070392121) CREATININE (test code = 0.51 mg/dL 0.50-1.04 1457971866) TOTAL BILI (test code = 0.8 mg/dL 0.1-1.7 7608557159) CALCIUM (test code = 8.7 mg/dL 8.6-10.6 7670185927) T PROTEIN (test code = 6.5 g/dL 6.3-8.2 6688402337) ALBUMIN (test code = 3.7 g/dL 3.5-5.0 7295274348) ALK PHOS (test code = 54 U/L 34-122 6970355749) ALTv (test code = 16 U/L 5-35 1742-6) AST(SGOT) (test code = 32 U/L 13-40 8299244749) eGFR (test code = 116.9 mL/min/1.73m2 6145493611) LOW (test code = LOW) Association of Glomerular Filtration Rate (GFR) and Staging of Kidney Disease* + --+ --+ ------+| GFR (mL/min/1.73 m2) ?| With Kidney Damage ?| ?Without Kidney Damage+ --------+ --------+ +| ?>90 ?| ?Stage one ?| ? Normal ?+ ---+ ---+ -------+| ?60-89 ?| ?Stage two ?| ? Decreased GFR ? + --+ --+ ------+| ?30-59 ?| ?Stage three ?| ? Stage three ? + --+ --+ ------+| ?15-29 ?| ?Stage four ? | ? Stage four ?+ ---+ ---+ -------+| ?<15 (or dialysis) ? ?| ?Stage five ? | ? Stage five ?+ ---+ ---+ -------+ *Each stage assumes the associated GFR level has been in effect for at least three months. ?Stages 1 to 5, with or without kidney disease, indicate chronic kidney disease. Notes: Determination of stages one and two (with eGFR >59mL/min/1.73 m2) requires estimation of kidney damage for at least three months as defined by structural or functional abnormalities of the kidney, manifested by either:Pathological abnormalities or Markers of kidney damage (including abnormalities in the composition of the blood or urine or abnormalities in imaging tests). Lab Interpretation Abnormal (test code = 96905-4) [facility]. METABOLIC PANEL ([id number])2022-10-26 08:39:16 Test Item Value Reference Range Interpretation Comments NA (test code = 138 mmol/L 135-145 9335138869) K (test code = 4.5 mmol/L 3.5-5.0 4319897440) CL (test code = 105 mmol/L 98-108 1732976559) CO2 TOTAL (test code = 27 mmol/L 23-31 0455171783) AGAP (test code = 6 2-16 2552554231) BUN (test code = 13 mg/dL 7-23 7063435569) GLUCOSE (test code = 186 mg/dL 70-110 H 5031703004) CREATININE (test code = 0.51 mg/dL 0.50-1.04 3823667450) TOTAL BILI (test code = 0.8 mg/dL 0.1-1.1 4862830239) CALCIUM (test code = 8.7 mg/dL 8.6-10.6 2509183682) T PROTEIN (test code = 6.5 g/dL 6.3-8.2 6293143515) ALBUMIN (test code = 3.7 g/dL 3.5-5.0 8808586154) ALK PHOS (test code = 54 U/L 34-122 [id number]) ALTv (test code = 16 U/L 5-35 1742-6) AST(SGOT) (test code = 32 U/L 13-40 6553600218) eGFR (test code = 116.9 mL/min/1.73m2 2395039943) LOW (test code = LOW) Association of Glomerular Filtration Rate (GFR) and Staging of Kidney Disease* + --+ --+ ------+| GFR (mL/min/1.73 m2) ?| With Kidney Damage ?| ?Without Kidney Damage+ --------+ --------+ +| ?>90 ?| ?Stage one ?| ? Normal ?+ ---+ ---+ -------+| ?60-89 ?| ?Stage two ?| ? Decreased GFR ? + --+ --+ ------+| ?30-59 ?| ?Stage three ?| ? Stage three ? + --+ --+ ------+| ?15-29 ?| ?Stage four ? | ? Stage four ?+ ---+ ---+ -------+| ?<15 (or dialysis) ? ?| ?Stage five ? | ? Stage five ?+ ---+ ---+ -------+ *Each stage assumes the associated GFR level has been in effect for at least three months. ?Stages 1 to 5, with or without kidney disease, indicate chronic kidney disease. Notes: Determination of stages one and two (with eGFR >59mL/min/1.73 m2) requires estimation of kidney damage for at least three months as defined by structural or functional abnormalities of the kidney, manifested by either:Pathological abnormalities or Markers of kidney damage (including abnormalities in the composition of the blood or urine or abnormalities in imaging tests). Lab Interpretation Abnormal (test code = 12542-2) [facility] / [id number] 08:26:13 Test Item Value Reference Range Interpretation Comments PROTIME PATIENT (test 13.3 See_Comment [Auto mated message] code = 5964-2) The system IPG generated this result transmitted ref erence range: 12.0 - 1 4.7 Seconds. The re ference range was not u sed to interpret this result as normal/abnor mal. INR (test code = 6301-6) 1.0 Nor mal INR <1.1; Warfarin Therap eutic range 2.0 to 3. 0 or 2.5 to 3.5, dep ending upon the indica tions. Lab Interpretation (test Normal code = 59936-0) [facility] / [id number] 08:26:13 Test Item Value Reference Range Interpretation Comments PROTIME PATIENT (test 13.3 See_Comment [Auto mated message] code = 5964-2) The system ich generated this result transmitted ref erence range: 12.0 - 1 4.7 Seconds. The re ference range was not u sed to interpret this result as normal/abnor mal. INR (test code = 6301-6) 1.0 Nor mal INR <1.1; Warfarin Therap eutic range 2.0 to 3. 0 or 2.5 to 3.5, dep ending upon the indica tions. Lab Interpretation (test Normal code = 41587-3) [facility] / [id number] 08:26:13 Test Item Value Reference Range Interpretation Comments PROTIME PATIENT (test 13.3 See_Comment [Auto mated message] code = 5964-2) The system ich generated this result transmitted ref erence range: 12.0 - 1 4.7 Seconds. The re ference range was not u sed to interpret this result as normal/abnor mal. INR (test code = 6301-6) 1.0 Nor mal INR <1.1; Warfarin Therap eutic range 2.0 to 3. 0 or 2.5 to 3.5, dep ending upon the indica tions. Lab Interpretation (test Normal code = 85578-6) [facility] WITH [id number] 08:14:13 Test Item Value Reference Range Interpretation Comments WBC (test code = 9.20 See_Comment [Automated 5463-2) message] The sy stem which generated this result transmitted reference range : 4.30 - 11.10 10*3/?L. The reference range was not used to interpret this result as normal/abnormal . RBC (test code = 3.95 See_Comment [Automated 376-8) message] The sy stem which generated this result transmitted reference range : 3.93 - 5.25 10*6/?L. The reference range was not used to interpret this result as normal/abnormal . HGB (test code = 11.0 g/dL 11.6-15.0 L 718-7) HCT (test code = 35.5 % 35.7-45.2 L 4544-3) MCV (test code = 89.9 fL 80.6-95.5 787-2) MCH (test code = 27.8 pg 25.9-32.8 785-6) MCHC (test code = 31.0 g/dL 31.6-35.1 L 786-4) RDW-SD (test code = 53.8 fL 39.0-49.9 H 74191-4) RDW-CV (test code = 16.5 % 12.0-15.5 H 788-0) PLT (test code = 308 See_Comment [Automated 777-3) message] The sy stem which generated this result transmitted reference range : 166 - 358 10*3/ ?L. The reference r federica was not used to interpret this result as normal/abnormal . MPV (test code = 9.9 fL 9.5-12.9 08950-2) NRBC/100 WBC (test 0.0 See_Comment [Automat ed code = 8266571918) message] The system which generated this result transmitted reference range : 0.0 - 10.0 /100 WBCs. The refer ence range was not u sed to interpret th is result as normal/abnormal . NRBC x10^3 (test code See_Comment [Auto mated = 7544323824) message] The s ystem which generated this result transmitted reference range : 10*3/?L. The reference range was not used to interpret this result as normal/abnormal . GRAN MAT (NEUT) % 67.0 % (test code = 770-8) IMM GRAN % (test code 0.30 % = 3867642712) LYMPH % (test code = 20.5 % 736-9) MONO % (test code = 8.5 % 5905-5) EOS % (test code = 3.3 % 713-8) BASO % (test code = 0.4 % 706-2) GRAN MAT x10^3(ANC) 6.16 10*3/uL 1.88-7.09 (test code = 5109202899) IMM GRAN x10^3 (test 0.03 10*3/uL 0.00-0.06 code = 9291850996) LYMPH x10^3 (test code 1.89 10*3/uL 1.32-3.29 = 731-0) MONO x10^3 (test code 0.78 10*3/uL 0.33-0.92 = 742-7) EOS x10^3 (test code = 0.30 10*3/uL 0.03-0.39 711-2) BASO x10^3 (test code 0.04 10*3/uL 0.01-0.07 = 704-7) Lab Interpretation Abnormal (test code = 65001-7) [facility] WITH [id number] 08:14:13 Test Item Value Reference Range Interpretation Comments WBC (test code = 9.20 See_Comment [Automated 4790-2) message] The sy stem which generated this result transmitted reference range : 4.30 - 11.10 10*3/?L. The reference range was not used to interpret this result as normal/abnormal . RBC (test code = 3.95 See_Comment [Automated 719-8) message] The sy stem which generated this result transmitted reference range : 3.93 - 5.25 10*6/?L. The reference range was not used to interpret this result as normal/abnormal . HGB (test code = 11.0 g/dL 11.6-15.0 L 718-7) HCT (test code = 35.5 % 35.7-45.2 L 4544-3) MCV (test code = 89.9 fL 80.6-95.5 787-2) MCH (test code = 27.8 pg 25.9-32.8 785-6) MCHC (test code = 31.0 g/dL 31.6-35.1 L 786-4) RDW-SD (test code = 53.8 fL 39.0-49.9 H 49256-2) RDW-CV (test code = 16.5 % 12.0-15.5 H 788-0) PLT (test code = 308 See_Comment [Automated 387-3) message] The sy stem which generated this result transmitted reference range : 166 - 358 10*3/ ?L. The reference r federica was not used to interpret this result as normal/abnormal . MPV (test code = 9.9 fL 9.5-12.9 79041-2) NRBC/100 WBC (test 0.0 See_Comment [Automat ed code = 3904226318) message] The system which generated this result transmitted reference range : 0.0 - 10.0 /100 WBCs. The refer ence range was not u sed to interpret th is result as normal/abnormal . NRBC x10^3 (test code See_Comment [Auto mated = 4268388391) message] The s ystem which generated this result transmitted reference range : 10*3/?L. The reference range was not used to interpret this result as normal/abnormal . GRAN MAT (NEUT) % 67.0 % (test code = 770-8) IMM GRAN % (test code 0.30 % = 2959149958) LYMPH % (test code = 20.5 % 736-9) MONO % (test code = 8.5 % 5905-5) EOS % (test code = 3.3 % 713-8) BASO % (test code = 0.4 % 706-2) GRAN MAT x10^3(ANC) 6.16 10*3/uL 1.88-7.09 (test code = 2461642822) IMM GRAN x10^3 (test 0.03 10*3/uL 0.00-0.06 code = 0509053514) LYMPH x10^3 (test code 1.89 10*3/uL 1.32-3.29 = 731-0) MONO x10^3 (test code 0.78 10*3/uL 0.33-0.92 = 742-7) EOS x10^3 (test code = 0.30 10*3/uL 0.03-0.39 711-2) BASO x10^3 (test code 0.04 10*3/uL 0.01-0.07 = 704-7) Lab Interpretation Abnormal (test code = 61134-6) [facility] WITH [id number] 08:14:13 Test Item Value Reference Range Interpretation Comments WBC (test code = 9.20 See_Comment [Automated 6690-2) message] The sy stem which generated this result transmitted reference range : 4.30 - 11.10 10*3/?L. The reference range was not used to interpret this result as normal/abnormal . RBC (test code = 3.95 See_Comment [Automated 789-8) message] The sy stem which generated this result transmitted reference range : 3.93 - 5.25 10*6/?L. The reference range was not used to interpret this result as normal/abnormal . HGB (test code = 11.0 g/dL 11.6-15.0 L 718-7) HCT (test code = 35.5 % 35.7-45.2 L 4544-3) MCV (test code = 89.9 fL 80.6-95.5 787-2) MCH (test code = 27.8 pg 25.9-32.8 785-6) MCHC (test code = 31.0 g/dL 31.6-35.1 L 786-4) RDW-SD (test code = 53.8 fL 39.0-49.9 H 87751-8) RDW-CV (test code = 16.5 % 12.0-15.5 H 788-0) PLT (test code = 308 See_Comment [Automated 777-3) message] The sy stem which generated this result transmitted reference range : 166 - 358 10*3/ ?L. The reference r federica was not used to interpret this result as normal/abnormal . MPV (test code = 9.9 fL 9.5-12.9 54436-5) NRBC/100 WBC (test 0.0 See_Comment [Automat ed code = 5139619364) message] The system which generated this result transmitted reference range : 0.0 - 10.0 /100 WBCs. The refer ence range was not u sed to interpret th is result as normal/abnormal . NRBC x10^3 (test code See_Comment [Auto mated = 1661402833) message] The s ystem which generated this result transmitted reference range : 10*3/?L. The reference range was not used to interpret this result as normal/abnormal . GRAN MAT (NEUT) % 67.0 % (test code = 770-8) IMM GRAN % (test code 0.30 % = 2247451936) LYMPH % (test code = 20.5 % 736-9) MONO % (test code = 8.5 % 5905-5) EOS % (test code = 3.3 % 713-8) BASO % (test code = 0.4 % 706-2) GRAN MAT x10^3(ANC) 6.16 10*3/uL 1.88-7.09 (test code = 0161185971) IMM GRAN x10^3 (test 0.03 10*3/uL 0.00-0.06 code = 4599581762) LYMPH x10^3 (test code 1.89 10*3/uL 1.32-3.29 = 731-0) MONO x10^3 (test code 0.78 10*3/uL 0.33-0.92 = 742-7) EOS x10^3 (test code = 0.30 10*3/uL 0.03-0.39 711-2) BASO x10^3 (test code 0.04 10*3/uL 0.01-0.07 = 704-7) Lab Interpretation Abnormal (test code = 34822-9) [facility], [id number] 08:12:34SPECIMEN NUMBER: [id number] CULTURE, URINE SPECIMEN NUMBER: [id number] SPECIMEN COMMENT: URINE SOURCE:URINE REPORT STATUS: FINAL ISOLATE NUMBER 1: ORGANISM: 10/18/2022 >100,000 CFU/ML GRAM NEGATIVE BACILLI IDENTIFICATION: 10/19/2022 ESCHERICHIA COLI E. COLI AMOXICILLIN/CA SENSITIVE <=8/4AMPICILLIN SENSITIVE <=8CEFAZOLIN SENSITIVE <=2CEFTRIAXONE SENSITIVE <=1CIPROFLOXACIN RESISTANT >2LEVOFLOXACIN RESISTANT >4NITROFURANTOIN SENSITIVE <=32PIP/TAZOBAC SENSITIVE <=16TETRACYCLINE RESISTANT >8TOBRAMYCIN SENSITIVE <=4TRIMETH/SULFA SENSITIVE <=2/38 NOTE: NUMBERS DISPLAYED REPRESENT MINIMUM INHIBITORY CONCENTRATION (JACOB) WHICH IS EXPRESSED IN MCG/ML. UNLESS OTHERWISE INDICATED, ALL TESTING PERFORMED AT [facility] [address] [place] [id number] CURING FINISHER: Kingston COLLIER NUMBER [id number] [facility] ACCREDITATIONNO. [id number] GLUCOSE (AUTOMATED)2022-09-06 22:24:54 Test Item Value Reference Range Interpretation Comments POCT GLU (test code = 5720791584) 287 mg/dL 70-110 H Lab Interpretation (test code = Abnormal 20064-2) [facility] GLUCOSE (AUTOMATED)2022-09-06 16:41:31 Test Item Value Reference Range Interpretation Comments POCT GLU (test code = 175 mg/dL 70-110 H Notifi ed Provider [id number]) Lab Interpretation (test Abnormal code = 53511-0) [facility] GLUCOSE (AUTOMATED)2022-09-06 14:47:22 Test Item Value Reference Range Interpretation Comments POCT GLU (test code = 8412767666) 148 mg/dL 70-110 H Lab Interpretation (test code = Abnormal 69587-0) [facility] GLUCOSE (AUTOMATED)2022-09-06 12:35:53 Test Item Value Reference Range Interpretation Comments POCT GLU (test code = 165 mg/dL 70-110 H Notifi ed Provider [id number]) Lab Interpretation (test Abnormal code = 72590-9) [facility] GLUCOSE (AUTOMATED)2022-09-06 00:51:42 Test Item Value Reference Range Interpretation Comments POCT GLU (test code = 2346089617) 264 mg/dL 70-110 H Lab Interpretation (test code = Abnormal 30397-0) [facility] GLUCOSE (AUTOMATED)2022-09-05 22:16:15 Test Item Value Reference Range Interpretation Comments POCT GLU (test code = 3417710131) 252 mg/dL 70-110 H Lab Interpretation (test code = Abnormal 62455-9) [facility] GLUCOSE (AUTOMATED)2022-09-05 21:25:17 Test Item Value Reference Range Interpretation Comments POCT GLU (test code = 5153812675) 244 mg/dL 70-110 H Lab Interpretation (test code = Abnormal 59245-8) [facility] GLUCOSE (AUTOMATED)2022-09-05 17:01:15 Test Item Value Reference Range Interpretation Comments POCT GLU (test code = 3237405089) 219 mg/dL 70-110 H Lab Interpretation (test code = Abnormal 53982-0) [facility] GLUCOSE (AUTOMATED)2022-09-05 02:11:39 Test Item Value Reference Range Interpretation Comments POCT GLU (test code = 8555622462) 316 mg/dL 70-110 H Lab Interpretation (test code = Abnormal 31508-9) [facility] GLUCOSE (AUTOMATED)2022-09-04 23:14:25 Test Item Value Reference Range Interpretation Comments POCT GLU (test code = 0436594701) 254 mg/dL 70-110 H Lab Interpretation (test code = Abnormal 43288-8) [facility] GLUCOSE (AUTOMATED)2022-09-04 17:06:25 Test Item Value Reference Range Interpretation Comments POCT GLU (test code = 3944314639) 282 mg/dL 70-110 H Lab Interpretation (test code = Abnormal 25239-3) [facility] GLUCOSE (AUTOMATED)2022-09-04 13:32:54 Test Item Value Reference Range Interpretation Comments POCT GLU (test code = 0904722640) 181 mg/dL 70-110 H Lab Interpretation (test code = Abnormal 66670-0) [facility] GLUCOSE (AUTOMATED)2022-09-04 02:20:42 Test Item Value Reference Range Interpretation Comments POCT GLU (test code = 5600564698) 262 mg/dL 70-110 H Lab Interpretation (test code = Abnormal 74582-3) [facility] GLUCOSE (AUTOMATED)2022-09-03 22:30:06 Test Item Value Reference Range Interpretation Comments POCT GLU (test code = 9073518246) 242 mg/dL 70-110 H Lab Interpretation (test code = Abnormal 94393-4) [facility] GLUCOSE (AUTOMATED)2022-09-03 17:49:27 Test Item Value Reference Range Interpretation Comments POCT GLU (test code = 8198929500) 290 mg/dL 70-110 H Lab Interpretation (test code = Abnormal 92522-1) [facility] GLUCOSE (AUTOMATED)2022-09-03 13:35:16 Test Item Value Reference Range Interpretation Comments POCT GLU (test code = 7124321132) 193 mg/dL 70-110 H Lab Interpretation (test code = Abnormal 72964-7) [facility] GLUCOSE (AUTOMATED)2022-09-03 02:55:14 Test Item Value Reference Range Interpretation Comments POCT GLU (test code = 5467228524) 126 mg/dL 70-110 H Lab Interpretation (test code = Abnormal 88928-1) [facility], 25 [id number] 06:41:41 Test Item Value Reference Range Interpretation Comments VITAMIN D, 25 49 NG/ML SEE BELOW EFFECTIVE 05/26/2022, [place] (test code PLEASE NOTE NE W METHODOLOGY = 4958) IS ELECTROC HEMILUMINESCENCE BINDING ASSAY. NOTE: 25-HYDROXYVITAM IN D ASSAY INCLUDES 25-HYD ROXYVITAMIN D2 AND D3. I NTERPRETIVE RANGES PED IATRIC (<17 YEARS) . . . . . . . . . . . NG/ML 20-100ADU LT: INSUFFICIENT . . . . . . . . . . . . . . NG/ML <20 SUBOP TIMAL . . . . . . . . . . . . . . . NG/ML 20-29 OPTIMAL . . . . . . . . . . . . . . . . . NG/ML 30-100 TSH + FREE T4 [id number] 06:40:44 Test Item Value Reference Range Interpretation Comments TSH, THIRD GENERATION (test code 2.440 UIU/ML 0.400-4.100 = 2821) FREE T4 (THYROXINE) (test code = 1.61 NG/DL 0.80-1.90 2823) HEMOGLOBIN [id number] 04:54:32 Test Item Value Reference Range Interpretation Comments HEMOGLOBIN A1c (test 8.1 % 4.2-5.6 H AMERIC AN DIABETES code = 18111) ASSOCIATION IDELINES FOR HGB A1C: PREDIABETES/INC REASED RISK . . . . . . . 5.7 -6.4% DIAGNOSIS OF DI ABETES . . . . . . . . . >=6 .5% WITH CONFIRMATION OR APPROPRIATE SYMPTOMS NOTE: ASSAY MAY BE AFFECTED BY HEMOGLOBINOPATH IES (SICKLE CELL ANEMIA, S- C DISEASE, OTHERS) OR ELAINE FICIALLY LOWERED BY DECR EASED RED CELL SURVIVAL ( HEMOLYTIC ANEMIAS, BLOOD LOSS, ETC.). CONSIDER ALTERN ATE TESTING OR LABORATORY C ONSULTATION. COMPREHENSIVE METABOLIC [id number] 04:20:58 Test Item Value Reference Range Interpretation Comments GLUCOSE (test code = 88 MG/DL 70-99 2216) BUN (test code = 14 MG/DL 8-23 2207) CREATININE (test 0.67 MG/DL 0.60-1.30 code = 221) eGFR (2020 CKD-EPI) 90 ML/MIN/1.73 >60 (test code = 35780) CALC BUN/CREAT (test 21 RATIO 6-28 code = 223) SODIUM (test code = 140 MEQ/L 068-444 9822) POTASSIUM (test code 4.2 MEQ/L 3.5-5.4 = 2227) CHLORIDE (test code 101 MEQ/L 95-107 = 2214) CARBON DIOXIDE (test 26 MEQ/L 19-31 code = 2205) CALCIUM (test code = 10.2 MG/DL 8.5-10.5 2208) PROTEIN, TOTAL (test 7.2 G/DL 6.1-8.3 code = 2228) ALBUMIN (test code = 4.2 G/DL 3.5-5.2 2200) CALC GLOBULIN (test 3.0 G/DL 1.9-3.7 code = 2239) CALC A/G RATIO (test 1.4 RATIO 1.0-2.6 code = 2233) BILIRUBIN, TOTAL 0.6 MG/DL See_Comment [Automated message] (test code = 2206) The syste m which generated this result transmit mars reference range : <=1.2. The refe rence range was not u sed to interpret th is result as normal/abnormal . ALKALINE PHOSPHATASE 57 U/L 40-142 (test code = 2203) AST (test code = 24 U/L 9-40 2217) ALT (test code = 13 U/L 5-40 2218) LIPID [id number] 04:20:58 Test Item Value Reference Range Interpretation Comments CHOLESTEROL (test 168 MG/DL <200 code = 2210) TRIGLYCERIDES (test 75 MG/DL <150 code = 2232) HDL CHOLESTEROL (test 53 MG/DL >39 code = 2220) CALC LDL CHOL (test 99 MG/DL <100 NOTE: C ALCULATED LDL code = 2237) IS BASED ON ALOK-SANTOS METHOD WHICHINCLUDES ADJUSTABLE TRIGLYCERIDE:VL DL CHOLESTEROL RAT IO.THIS FACTOR VARIES B Y MEASURED TRIGLY CERIDE AND NON-HDLCHOL ESTEROL CONCENTRATIONS WITH INCREASED CALCU LATED LDL SEENIN HIGH ER TRIGLYCERIDE OR LOWER NON-HDL SPECIME NS. FOR MOREINFORMATION , SEE CLIENT ANNOUNCE MENT AT [email or web address] RATIO LDL/HDL 1.87 RATIO <3.22 (test code = 2238) CBC W/AUTO DIFF WITH [id number] 03:50:36 Test Item Value Reference Range Interpretation Comments WBC (test code = 9.8 K/UL 3.5-11.0 1001) RBC (test code = 4.49 M/UL 3.80-5.40 1002) HEMOGLOBIN (test code 12.3 G/DL 11.5-15.5 = 1003) HEMATOCRIT (test code 37.6 % 34.0-45.0 = 1004) MCV (test code = 83.7 fL 80.0-99.0 1005) MCH (test code = 27.4 PG 25.0-33.0 1006) MCHC (test code = 32.7 G/DL 31.0-36.0 1007) RDW (test code = 14.4 % 11.5-15.0 1038) NEUTROPHILS (test 68.6 % code = 1008) LYMPHOCYTES (test 19.6 % code = 1010) MONOCYTES (test code 8.8 % = 1011) EOSINOPHILS (test 1.8 % code = 1012) BASOPHILS (test code 0.6 % = 1013) IMMATURE GRANULOCYTES 0.6 % (test code = 1036) NUCLEATED RBCS (test 0.0 /100 WBC'S See_Comment [Aut omated code = 1065) message] The sy stem which generated this result transmitted reference range : 0.0. The refere nce range was not u sed to interpret th is result as normal/abnormal . PLATELET COUNT (test 338 K/UL 130-400 code = 1015) ABSOLUTE NEUTROPHILS 6.72 K/UL 1.50-7.50 (test code = 1066) ABSOLUTE LYMPHOCYTES 1.92 K/UL 1.00-4.00 (test code = 1067) ABSOLUTE MONOCYTES 0.86 K/UL 0.20-1.00 (test code = 1068) ABSOLUTE EOSINOPHILS 0.18 K/UL 0.00-0.50 (test code = 1040) ABSOLUTE BASOPHILS 0.06 K/UL 0.00-0.20 (test code = 1069) ABS IMMATURE 0.06 K/UL 0.00-0.10 GRANULOCYTES (test code = 1020) ABS NUCLEATED RBCS 0.00 K/UL 0.00-0.11 (test code = 08184) [id number] 03:32:16 Test Item Value Reference Range Interpretation Comments MAGNESIUM (test code 1.7 MG/DL 1.6-2.6 CP L has important = 2226) pathology staff changes effective 07/16. New patholo gy staff will provide uninterrupted, excellent patient care an d clinical consul tation. See URL: [email or web address]. UNLESS OTHERWISE INDICATED, ALL TESTING PERFORMED AT [facility] [address] [place] [address] 4 LABORATORY DIRE CTOR: DIANELYS JIMENES M.D. CLIA NUMBER [id number] [place] [id number] CULTURE, [id number] 12:56:48SPECIMEN NUMBER: [id number] CULTURE, URINE SPECIMEN NUMBER: [id number] SPECIMEN COMMENT: URINE SOURCE:URINE REPORT STATUS: FINAL FINAL REPORT: 08/07/2022 >100,000 CFU/ML UROGENITAL RICO PRESENT NO CO [facility] has important pathology staff changes effective 07/16/2022. New pathologystaff will provide uninterrupted, excellent patient care and clinical consultation. See URL: [email or web address]. UNLESS OTHERWISE INDICATED, ALL TESTING PERFORMED AT [facility] [employer] [address] [place], [place] [address] CURING FINISHER: DIANELYS ANDERSON M.D. CLIA [id number] [place]. [id number], THIRD GENERATION 2021-10-24 03:54:20 Test Item Value Reference Range Interpretation Comments TSH, THIRD 2.700 UIU/ML 0.400-4.100 UNLESS OTHERWI SE GENERATION (test INDICATED, ALL TESTING code = 2821) PERFORMED [facility] PATH[facility]. [address] [place], [place] [address] [facility] DIRECTOR: JANUSZ JJ M.D. SANDIE NUMBER [id number] [facility] [place]. [id number] HEMOGLOBIN [id number] 03:14:04 Test Item Value Reference Range Interpretation Comments HEMOGLOBIN A1c (test 9.3 % 4.2-5.6 H [employer] AN DIABETES code = 82174) ASSOCIATION IDELINES FOR HGB A1C: PREDIABETES/INC REASED RISK . . . . . . . 5.7 -6.4% DIAGNOSIS OF DI ABETES . . . . . . . . . >=6 .5% WITH CONFIRMATION OR APPROPRIATE SYMPTOMS NOTE: ASSAY MAY BE AFFECTED BY HEMOGLOBINOPATH IES (SICKLE CELL ANEMIA, S- C DISEASE, OTHERS) OR ELAINE FICIALLY LOWERED BY DECR EASED RED CELL SURVIVAL ( HEMOLYTIC ANEMIAS, BLOOD LOSS, ETC.). CONSIDER ALTERN ATE TESTING OR LABORATORY C ONSULTATION. CBC W/AUTO DIFF WITH [id number] 02:43:09 Test Item Value Reference Range Interpretation Comments WBC (test code = 9.0 K/UL 3.5-11.0 1001) RBC (test code = 4.20 M/UL 3.80-5.40 1002) HEMOGLOBIN (test code 11.2 G/DL 11.5-15.5 L = 1003) HEMATOCRIT (test code 34.0 % 34.0-45.0 = 1004) MCV (test code = 81.0 fL 80.0-99.0 1005) MCH (test code = 26.7 PG 25.0-33.0 1006) MCHC (test code = 32.9 G/DL 31.0-36.0 1007) RDW (test code = 14.6 % 11.5-15.0 1038) NEUTROPHILS (test 59.0 % code = 1008) LYMPHOCYTES (test 27.6 % code = 1010) MONOCYTES (test code 9.3 % = 1011) EOSINOPHILS (test 3.1 % code = 1012) BASOPHILS (test code 0.6 % = 1013) IMMATURE GRANULOCYTES 0.4 % (test code = 1036) NUCLEATED RBCS (test 0.0 /100 WBC'S See_Comment [Aut omated code = 1065) message] The sy stem which generated this result transmitted reference range : 0.0. The refere nce range was not u sed to interpret th is result as normal/abnormal . PLATELET COUNT (test 304 K/UL 130-400 code = 1015) ABSOLUTE NEUTROPHILS 5.32 K/UL 1.50-7.50 (test code = 1066) ABSOLUTE LYMPHOCYTES 2.49 K/UL 1.00-4.00 (test code = 1067) ABSOLUTE MONOCYTES 0.84 K/UL 0.20-1.00 (test code = 1068) ABSOLUTE EOSINOPHILS 0.28 K/UL 0.00-0.50 (test code = 1040) ABSOLUTE BASOPHILS 0.05 K/UL 0.00-0.20 (test code = 1069) ABS IMMATURE 0.04 K/UL 0.00-0.10 GRANULOCYTES (test code = 1020) ABS NUCLEATED RBCS 0.00 K/UL 0.00-0.11 (test code = 59815) COMPREHENSIVE METABOLIC [id number] 02:34:07 Test Item Value Reference Range Interpretation Comments GLUCOSE (test code = 119 MG/DL 70-99 H 2216) BUN (test code = 15 MG/DL 8-23 2207) CREATININE (test 0.93 MG/DL 0.60-1.30 code = 2214) eGFR (2020 CKD-EPI) 64 ML/MIN/1.73 >60 (test code = 57988) CALC BUN/CREAT (test 16 RATIO 6-28 code = 2235) SODIUM (test code = 139 MEQ/L 202-923 7454) POTASSIUM (test code 4.7 MEQ/L 3.5-5.4 = 2227) CHLORIDE (test code 101 MEQ/L 95-107 = 2214) CARBON DIOXIDE (test 26 MEQ/L 19-31 code = 2206) CALCIUM (test code = 10.3 MG/DL 8.5-10.5 2208) PROTEIN, TOTAL (test 7.1 G/DL 6.1-8.3 code = 2229) ALBUMIN (test code = 4.5 G/DL 3.5-5.2 2200) CALC GLOBULIN (test 2.6 G/DL 1.9-3.7 code = 2240) CALC A/G RATIO (test 1.7 RATIO 1.0-2.6 code = 2234) BILIRUBIN, TOTAL 0.4 MG/DL See_Comment [Automated message] (test code = 2207) The [employer] which generated this result transmit [place] reference range : <=1.2. The refe rence range was not u sed to interpret th is result as normal/abnormal . ALKALINE PHOSPHATASE 55 U/L 40-142 (test code = 2204) AST (test code = 17 U/L 9-40 2217) ALT (test code = 14 U/L 5-40 2218) HEPATIC FUNCTION [id number] 02:34:07 Test Item Value Reference Range Interpretation Comments PROTEIN, TOTAL (test 7.1 G/DL 6.1-8.3 code = 2229) ALBUMIN (test code = 4.5 G/DL 3.5-5.2 2200) BILIRUBIN, TOTAL (test 0.4 MG/DL See_Comment [Aut omated message] code = 2207) The system [employer] generated this result transmitted ref erence range: <=1.2. T he reference range was not used to int erpret this result as normal/abnormal . BILIRUBIN, DIRECT 0.2 MG/DL 0.0-0.3 (test code = 2021) ALKALINE PHOSPHATASE 55 U/L 40-142 (test code = 2203) AST (test code = 2218) 17 U/L 9-40 ALT (test code = 2219) 14 U/L 5-40 HEMOGLOBIN A1c [ADDED]2021-10-24 00:00:00 Test Item Value Reference Range Interpretation Comments HEMOGLOBIN A1c (test code = 69490) 9.3 % HEMOGLOBIN A1c [ADDED]2021-10-24 00:00:00 Test Item Value Reference Range Interpretation Comments HEMOGLOBIN A1c (test code = 53909) 9.3 % HEMOGLOBIN A1c [ADDED]2021-10-24 00:00:00 Test Item Value Reference Range Interpretation Comments HEMOGLOBIN A1c (test code = 68479) 9.3 % COMPREHENSIVE METABOLIC PANEL [ADDED]2021-10-24 00:00:00 Test Item Value Reference Range Interpretation Comments GLUCOSE (test code = 2217) 119 MG/DL BUN (test code = 2208) 15 MG/DL CREATININE (test code = 2214) 0.93 MG/DL eGFR (2020 CKD-EPI) (test code 64 ML/MIN/1.73 = 93643) CALC BUN/CREAT (test code = 16 RATIO 2235) SODIUM (test code = 2231) 139 MEQ/L POTASSIUM (test code = 2228) 4.7 MEQ/L CHLORIDE (test code = 2215) 101 MEQ/L CARBON DIOXIDE (test code = 26 MEQ/L 220) CALCIUM (test code = 2209) 10.3 MG/DL PROTEIN, TOTAL (test code = 7.1 G/DL 2228) ALBUMIN (test code = 2201) 4.5 G/DL CALC GLOBULIN (test code = 2.6 G/DL 2240) CALC A/G RATIO (test code = 1.7 RATIO 2234) BILIRUBIN, TOTAL (test code = 0.4 MG/DL 2206) ALKALINE PHOSPHATASE (test 55 U/L code = 2204) AST (test code = 2218) 17 U/L ALT (test code = 2219) 14 U/L COMPREHENSIVE METABOLIC PANEL [ADDED]2021-10-24 00:00:00 Test Item Value Reference Range Interpretation Comments GLUCOSE (test code = 2217) 119 MG/DL BUN (test code = 2208) 15 MG/DL CREATININE (test code = 2214) 0.93 MG/DL eGFR (2020 CKD-EPI) (test code 64 ML/MIN/1.73 = 12350) CALC BUN/CREAT (test code = 16 RATIO 2235) SODIUM (test code = 2231) 139 MEQ/L POTASSIUM (test code = 2228) 4.7 MEQ/L CHLORIDE (test code = 2215) 101 MEQ/L CARBON DIOXIDE (test code = 26 MEQ/L 2205) CALCIUM (test code = 2209) 10.3 MG/DL PROTEIN, TOTAL (test code = 7.1 G/DL 2228) ALBUMIN (test code = 2201) 4.5 G/DL CALC GLOBULIN (test code = 2.6 G/DL 2240) CALC A/G RATIO (test code = 1.7 RATIO 2234) BILIRUBIN, TOTAL (test code = 0.4 MG/DL 2206) ALKALINE PHOSPHATASE (test 55 U/L code = 2204) AST (test code = 2218) 17 U/L ALT (test code = 2219) 14 U/L CBC W/AUTO DIFF WITH PLATELETS [ADDED]2021-10-24 00:00:00 Test Item Value Reference Range Interpretation Comments WBC (test code = 1001) 9.0 K/UL RBC (test code = 1002) 4.20 M/UL HEMOGLOBIN (test code = 1003) 11.2 G/DL HEMATOCRIT (test code = 1004) 34.0 % MCV (test code = 1005) 81.0 fL MCH (test code = 1006) 26.7 PG MCHC (test code = 1007) 32.9 G/DL RDW (test code = 1038) 14.6 % NEUTROPHILS (test code = 1008) 59.0 % LYMPHOCYTES (test code = 1010) 27.6 % MONOCYTES (test code = 1011) 9.3 % EOSINOPHILS (test code = 1012) 3.1 % BASOPHILS (test code = 1013) 0.6 % IMMATURE GRANULOCYTES (test 0.4 % code = 1036) NUCLEATED RBCS (test code = 0.0 /100WBC'S 1065) PLATELET COUNT (test code = 304 K/UL 1015) ABSOLUTE NEUTROPHILS (test code 5.32 K/UL = 1066) ABSOLUTE LYMPHOCYTES (test code 2.49 K/UL = 1067) ABSOLUTE MONOCYTES (test code = 0.84 K/UL 1068) ABSOLUTE EOSINOPHILS (test code 0.28 K/UL = 1040) ABSOLUTE BASOPHILS (test code = 0.05 K/UL 1069) ABS IMMATURE GRANULOCYTES (test 0.04 K/UL code = 1020) ABS NUCLEATED RBCS (test code = 0.00 K/UL 88637) CBC W/AUTO DIFF WITH PLATELETS [ADDED]2021-10-24 00:00:00 Test Item Value Reference Range Interpretation Comments WBC (test code = 1001) 9.0 K/UL RBC (test code = 1002) 4.20 M/UL HEMOGLOBIN (test code = 1003) 11.2 G/DL HEMATOCRIT (test code = 1004) 34.0 % MCV (test code = 1005) 81.0 fL MCH (test code = 1006) 26.7 PG MCHC (test code = 1007) 32.9 G/DL RDW (test code = 1038) 14.6 % NEUTROPHILS (test code = 1008) 59.0 % LYMPHOCYTES (test code = 1010) 27.6 % MONOCYTES (test code = 1011) 9.3 % EOSINOPHILS (test code = 1012) 3.1 % BASOPHILS (test code = 1013) 0.6 % IMMATURE GRANULOCYTES (test 0.4 % code = 1036) NUCLEATED RBCS (test code = 0.0 /100WBC'S 1065) PLATELET COUNT (test code = 304 K/UL 1015) ABSOLUTE NEUTROPHILS (test code 5.32 K/UL = 1066) ABSOLUTE LYMPHOCYTES (test code 2.49 K/UL = 1067) ABSOLUTE MONOCYTES (test code = 0.84 K/UL 1068) ABSOLUTE EOSINOPHILS (test code 0.28 K/UL = 1040) ABSOLUTE BASOPHILS (test code = 0.05 K/UL 1069) ABS IMMATURE GRANULOCYTES (test 0.04 K/UL code = 1020) ABS NUCLEATED RBCS (test code = 0.00 K/UL 71660) CBC W/AUTO DIFF WITH PLATELETS [ADDED]2021-10-24 00:00:00 Test Item Value Reference Range Interpretation Comments WBC (test code = 1001) 9.0 K/UL RBC (test code = 1002) 4.20 M/UL HEMOGLOBIN (test code = 1003) 11.2 G/DL HEMATOCRIT (test code = 1004) 34.0 % MCV (test code = 1005) 81.0 fL MCH (test code = 1006) 26.7 PG MCHC (test code = 1007) 32.9 G/DL RDW (test code = 1038) 14.6 % NEUTROPHILS (test code = 1008) 59.0 % LYMPHOCYTES (test code = 1010) 27.6 % MONOCYTES (test code = 1011) 9.3 % EOSINOPHILS (test code = 1012) 3.1 % BASOPHILS (test code = 1013) 0.6 % IMMATURE GRANULOCYTES (test 0.4 % code = 1036) NUCLEATED RBCS (test code = 0.0 /100WBC'S 1065) PLATELET COUNT (test code = 304 K/UL 1015) ABSOLUTE NEUTROPHILS (test code 5.32 K/UL = 1066) ABSOLUTE LYMPHOCYTES (test code 2.49 K/UL = 1067) ABSOLUTE MONOCYTES (test code = 0.84 K/UL 1068) ABSOLUTE EOSINOPHILS (test code 0.28 K/UL = 1040) ABSOLUTE BASOPHILS (test code = 0.05 K/UL 1069) ABS IMMATURE GRANULOCYTES (test 0.04 K/UL code = 1020) ABS NUCLEATED RBCS (test code = 0.00 K/UL 18478) HEPATIC FUNCTION PANEL [ADDED]2021-10-24 00:00:00 Test Item Value Reference Range Interpretation Comments PROTEIN, TOTAL (test code = 2229) 7.1 G/DL ALBUMIN (test code = 2201) 4.5 G/DL BILIRUBIN, TOTAL (test code = 2207) 0.4 MG/DL BILIRUBIN, DIRECT (test code = 0.2 MG/DL 2021) ALKALINE PHOSPHATASE (test code = 55 U/L 2203) AST (test code = 2218) 17 U/L ALT (test code = 2219) 14 U/L HEPATIC FUNCTION PANEL [ADDED]2021-10-24 00:00:00 Test Item Value Reference Range Interpretation Comments PROTEIN, TOTAL (test code = 2229) 7.1 G/DL ALBUMIN (test code = 2201) 4.5 G/DL BILIRUBIN, TOTAL (test code = 2207) 0.4 MG/DL BILIRUBIN, DIRECT (test code = 0.2 MG/DL 2021) ALKALINE PHOSPHATASE (test code = 55 U/L 2203) AST (test code = 2218) 17 U/L ALT (test code = 2219) 14 U/L TSH, THIRD GENERATION [ADDED]2021-10-24 00:00:00 Test Item Value Reference Range Interpretation Comments TSH, THIRD GENERATION (test code 2.700 UIU/ML = 2821) TSH, THIRD GENERATION [ADDED]2021-10-24 00:00:00 Test Item Value Reference Range Interpretation Comments TSH, THIRD GENERATION (test code 2.700 UIU/ML = 2821) TSH, THIRD GENERATION [ADDED]2021-10-24 00:00:00 Test Item Value Reference Range Interpretation Comments TSH, THIRD GENERATION (test code 2.700 UIU/ML = 2821) HEMOGLOBIN A1c [ADDED]2021-10-24 00:00:00 Test Item Value Reference Range Interpretation Comments HEMOGLOBIN A1c (test code = 22617) 9.3 % HEMOGLOBIN A1c [ADDED]2021-10-24 00:00:00 Test Item Value Reference Range Interpretation Comments HEMOGLOBIN A1c (test code = 47498) 9.3 % HEMOGLOBIN A1c [ADDED]2021-10-24 00:00:00 Test Item Value Reference Range Interpretation Comments HEMOGLOBIN A1c (test code = 39341) 9.3 % COMPREHENSIVE METABOLIC PANEL [ADDED]2021-10-24 00:00:00 Test Item Value Reference Range Interpretation Comments GLUCOSE (test code = 2217) 119 MG/DL BUN (test code = 2208) 15 MG/DL CREATININE (test code = 2214) 0.93 MG/DL eGFR (2020 CKD-EPI) (test code 64 ML/MIN/1.73 = 41837) CALC BUN/CREAT (test code = 16 RATIO 2235) SODIUM (test code = 2231) 139 MEQ/L POTASSIUM (test code = 2228) 4.7 MEQ/L CHLORIDE (test code = 2215) 101 MEQ/L CARBON DIOXIDE (test code = 26 MEQ/L 220) CALCIUM (test code = 2209) 10.3 MG/DL PROTEIN, TOTAL (test code = 7.1 G/DL 2228) ALBUMIN (test code = 2201) 4.5 G/DL CALC GLOBULIN (test code = 2.6 G/DL 2240) CALC A/G RATIO (test code = 1.7 RATIO 2234) BILIRUBIN, TOTAL (test code = 0.4 MG/DL 2206) ALKALINE PHOSPHATASE (test 55 U/L code = 2204) AST (test code = 2218) 17 U/L ALT (test code = 2219) 14 U/L COMPREHENSIVE METABOLIC PANEL [ADDED]2021-10-24 00:00:00 Test Item Value Reference Range Interpretation Comments GLUCOSE (test code = 2217) 119 MG/DL BUN (test code = 2208) 15 MG/DL CREATININE (test code = 2214) 0.93 MG/DL eGFR (2020 CKD-EPI) (test code 64 ML/MIN/1.73 = 91812) CALC BUN/CREAT (test code = 16 RATIO 2235) SODIUM (test code = 2231) 139 MEQ/L POTASSIUM (test code = 2228) 4.7 MEQ/L CHLORIDE (test code = 2215) 101 MEQ/L CARBON DIOXIDE (test code = 26 MEQ/L 2205) CALCIUM (test code = 2209) 10.3 MG/DL PROTEIN, TOTAL (test code = 7.1 G/DL 2228) ALBUMIN (test code = 2201) 4.5 G/DL CALC GLOBULIN (test code = 2.6 G/DL 2240) CALC A/G RATIO (test code = 1.7 RATIO 2234) BILIRUBIN, TOTAL (test code = 0.4 MG/DL 2206) ALKALINE PHOSPHATASE (test 55 U/L code = 2204) AST (test code = 2218) 17 U/L ALT (test code = 2219) 14 U/L CBC W/AUTO DIFF WITH PLATELETS [ADDED]2021-10-24 00:00:00 Test Item Value Reference Range Interpretation Comments WBC (test code = 1001) 9.0 K/UL RBC (test code = 1002) 4.20 M/UL HEMOGLOBIN (test code = 1003) 11.2 G/DL HEMATOCRIT (test code = 1004) 34.0 % MCV (test code = 1005) 81.0 fL MCH (test code = 1006) 26.7 PG MCHC (test code = 1007) 32.9 G/DL RDW (test code = 1038) 14.6 % NEUTROPHILS (test code = 1008) 59.0 % LYMPHOCYTES (test code = 1010) 27.6 % MONOCYTES (test code = 1011) 9.3 % EOSINOPHILS (test code = 1012) 3.1 % BASOPHILS (test code = 1013) 0.6 % IMMATURE GRANULOCYTES (test 0.4 % code = 1036) NUCLEATED RBCS (test code = 0.0 /100WBC'S 1065) PLATELET COUNT (test code = 304 K/UL 1015) ABSOLUTE NEUTROPHILS (test code 5.32 K/UL = 1066) ABSOLUTE LYMPHOCYTES (test code 2.49 K/UL = 1067) ABSOLUTE MONOCYTES (test code = 0.84 K/UL 1068) ABSOLUTE EOSINOPHILS (test code 0.28 K/UL = 1040) ABSOLUTE BASOPHILS (test code = 0.05 K/UL 1069) ABS IMMATURE GRANULOCYTES (test 0.04 K/UL code = 1020) ABS NUCLEATED RBCS (test code = 0.00 K/UL 88001) CBC W/AUTO DIFF WITH PLATELETS [ADDED]2021-10-24 00:00:00 Test Item Value Reference Range Interpretation Comments WBC (test code = 1001) 9.0 K/UL RBC (test code = 1002) 4.20 M/UL HEMOGLOBIN (test code = 1003) 11.2 G/DL HEMATOCRIT (test code = 1004) 34.0 % MCV (test code = 1005) 81.0 fL MCH (test code = 1006) 26.7 PG MCHC (test code = 1007) 32.9 G/DL RDW (test code = 1038) 14.6 % NEUTROPHILS (test code = 1008) 59.0 % LYMPHOCYTES (test code = 1010) 27.6 % MONOCYTES (test code = 1011) 9.3 % EOSINOPHILS (test code = 1012) 3.1 % BASOPHILS (test code = 1013) 0.6 % IMMATURE GRANULOCYTES (test 0.4 % code = 1036) NUCLEATED RBCS (test code = 0.0 /100WBC'S 1065) PLATELET COUNT (test code = 304 K/UL 1015) ABSOLUTE NEUTROPHILS (test code 5.32 K/UL = 1066) ABSOLUTE LYMPHOCYTES (test code 2.49 K/UL = 1067) ABSOLUTE MONOCYTES (test code = 0.84 K/UL 1068) ABSOLUTE EOSINOPHILS (test code 0.28 K/UL = 1040) ABSOLUTE BASOPHILS (test code = 0.05 K/UL 1069) ABS IMMATURE GRANULOCYTES (test 0.04 K/UL code = 1020) ABS NUCLEATED RBCS (test code = 0.00 K/UL 30274) CBC W/AUTO DIFF WITH PLATELETS [ADDED]2021-10-24 00:00:00 Test Item Value Reference Range Interpretation Comments WBC (test code = 1001) 9.0 K/UL RBC (test code = 1002) 4.20 M/UL HEMOGLOBIN (test code = 1003) 11.2 G/DL HEMATOCRIT (test code = 1004) 34.0 % MCV (test code = 1005) 81.0 fL MCH (test code = 1006) 26.7 PG MCHC (test code = 1007) 32.9 G/DL RDW (test code = 1038) 14.6 % NEUTROPHILS (test code = 1008) 59.0 % LYMPHOCYTES (test code = 1010) 27.6 % MONOCYTES (test code = 1011) 9.3 % EOSINOPHILS (test code = 1012) 3.1 % BASOPHILS (test code = 1013) 0.6 % IMMATURE GRANULOCYTES (test 0.4 % code = 1036) NUCLEATED RBCS (test code = 0.0 /100WBC'S 1065) PLATELET COUNT (test code = 304 K/UL 1015) ABSOLUTE NEUTROPHILS (test code 5.32 K/UL = 1066) ABSOLUTE LYMPHOCYTES (test code 2.49 K/UL = 1067) ABSOLUTE MONOCYTES (test code = 0.84 K/UL 1068) ABSOLUTE EOSINOPHILS (test code 0.28 K/UL = 1040) ABSOLUTE BASOPHILS (test code = 0.05 K/UL 1069) ABS IMMATURE GRANULOCYTES (test 0.04 K/UL code = 1020) ABS NUCLEATED RBCS (test code = 0.00 K/UL 13446) HEPATIC FUNCTION PANEL [ADDED]2021-10-24 00:00:00 Test Item Value Reference Range Interpretation Comments PROTEIN, TOTAL (test code = 2229) 7.1 G/DL ALBUMIN (test code = 2201) 4.5 G/DL BILIRUBIN, TOTAL (test code = 2207) 0.4 MG/DL BILIRUBIN, DIRECT (test code = 0.2 MG/DL 2021) ALKALINE PHOSPHATASE (test code = 55 U/L 2203) AST (test code = 2218) 17 U/L ALT (test code = 2219) 14 U/L HEPATIC FUNCTION PANEL [ADDED]2021-10-24 00:00:00 Test Item Value Reference Range Interpretation Comments PROTEIN, TOTAL (test code = 2229) 7.1 G/DL ALBUMIN (test code = 2201) 4.5 G/DL BILIRUBIN, TOTAL (test code = 2207) 0.4 MG/DL BILIRUBIN, DIRECT (test code = 0.2 MG/DL 2021) ALKALINE PHOSPHATASE (test code = 55 U/L 2203) AST (test code = 2218) 17 U/L ALT (test code = 2219) 14 U/L TSH, THIRD GENERATION [ADDED]2021-10-24 00:00:00 Test Item Value Reference Range Interpretation Comments TSH, THIRD GENERATION (test code 2.700 UIU/ML = 2821) TSH, THIRD GENERATION [ADDED]2021-10-24 00:00:00 Test Item Value Reference Range Interpretation Comments TSH, THIRD GENERATION (test code 2.700 UIU/ML = 2821) TSH, THIRD GENERATION [ADDED]2021-10-24 00:00:00 Test Item Value Reference Range Interpretation Comments TSH, THIRD GENERATION (test code 2.700 UIU/ML = 2821) HEMOGLOBIN A1c [ADDED]2021-10-24 00:00:00 Test Item Value Reference Range Interpretation Comments HEMOGLOBIN A1c (test code = 94558) 9.3 % HEMOGLOBIN A1c [ADDED]2021-10-24 00:00:00 Test Item Value Reference Range Interpretation Comments HEMOGLOBIN A1c (test code = 18809) 9.3 % HEMOGLOBIN A1c [ADDED]2021-10-24 00:00:00 Test Item Value Reference Range Interpretation Comments HEMOGLOBIN A1c (test code = 43323) 9.3 % COMPREHENSIVE METABOLIC PANEL [ADDED]2021-10-24 00:00:00 Test Item Value Reference Range Interpretation Comments GLUCOSE (test code = 2217) 119 MG/DL BUN (test code = 2208) 15 MG/DL CREATININE (test code = 2214) 0.93 MG/DL eGFR (2020 CKD-EPI) (test code 64 ML/MIN/1.73 = 35667) CALC BUN/CREAT (test code = 16 RATIO 2235) SODIUM (test code = 2231) 139 MEQ/L POTASSIUM (test code = 2228) 4.7 MEQ/L CHLORIDE (test code = 2215) 101 MEQ/L CARBON DIOXIDE (test code = 26 MEQ/L 220) CALCIUM (test code = 2209) 10.3 MG/DL PROTEIN, TOTAL (test code = 7.1 G/DL 2228) ALBUMIN (test code = 2201) 4.5 G/DL CALC GLOBULIN (test code = 2.6 G/DL 2240) CALC A/G RATIO (test code = 1.7 RATIO 223) BILIRUBIN, TOTAL (test code = 0.4 MG/DL 2206) ALKALINE PHOSPHATASE (test 55 U/L code = 2204) AST (test code = 2218) 17 U/L ALT (test code = 2219) 14 U/L COMPREHENSIVE METABOLIC PANEL [ADDED]2021-10-24 00:00:00 Test Item Value Reference Range Interpretation Comments GLUCOSE (test code = 2217) 119 MG/DL BUN (test code = 2208) 15 MG/DL CREATININE (test code = 2214) 0.93 MG/DL eGFR (2020 CKD-EPI) (test code 64 ML/MIN/1.73 = 69986) CALC BUN/CREAT (test code = 16 RATIO 2235) SODIUM (test code = 2231) 139 MEQ/L POTASSIUM (test code = 2228) 4.7 MEQ/L CHLORIDE (test code = 2215) 101 MEQ/L CARBON DIOXIDE (test code = 26 MEQ/L 220) CALCIUM (test code = 2209) 10.3 MG/DL PROTEIN, TOTAL (test code = 7.1 G/DL 2228) ALBUMIN (test code = 2201) 4.5 G/DL CALC GLOBULIN (test code = 2.6 G/DL 2240) CALC A/G RATIO (test code = 1.7 RATIO 2234) BILIRUBIN, TOTAL (test code = 0.4 MG/DL 7) ALKALINE PHOSPHATASE (test 55 U/L code = 2204) AST (test code = 2218) 17 U/L ALT (test code = 2219) 14 U/L CBC W/AUTO DIFF WITH PLATELETS [ADDED]2021-10-24 00:00:00 Test Item Value Reference Range Interpretation Comments WBC (test code = 1001) 9.0 K/UL RBC (test code = 1002) 4.20 M/UL HEMOGLOBIN (test code = 1003) 11.2 G/DL HEMATOCRIT (test code = 1004) 34.0 % MCV (test code = 1005) 81.0 fL MCH (test code = 1006) 26.7 PG MCHC (test code = 1007) 32.9 G/DL RDW (test code = 1038) 14.6 % NEUTROPHILS (test code = 1008) 59.0 % LYMPHOCYTES (test code = 1010) 27.6 % MONOCYTES (test code = 1011) 9.3 % EOSINOPHILS (test code = 1012) 3.1 % BASOPHILS (test code = 1013) 0.6 % IMMATURE GRANULOCYTES (test 0.4 % code = 1036) NUCLEATED RBCS (test code = 0.0 /100WBC'S 1065) PLATELET COUNT (test code = 304 K/UL 1015) ABSOLUTE NEUTROPHILS (test code 5.32 K/UL = 1066) ABSOLUTE LYMPHOCYTES (test code 2.49 K/UL = 1067) ABSOLUTE MONOCYTES (test code = 0.84 K/UL 1068) ABSOLUTE EOSINOPHILS (test code 0.28 K/UL = 1040) ABSOLUTE BASOPHILS (test code = 0.05 K/UL 1069) ABS IMMATURE GRANULOCYTES (test 0.04 K/UL code = 1020) ABS NUCLEATED RBCS (test code = 0.00 K/UL 49265) CBC W/AUTO DIFF WITH PLATELETS [ADDED]2021-10-24 00:00:00 Test Item Value Reference Range Interpretation Comments WBC (test code = 1001) 9.0 K/UL RBC (test code = 1002) 4.20 M/UL HEMOGLOBIN (test code = 1003) 11.2 G/DL HEMATOCRIT (test code = 1004) 34.0 % MCV (test code = 1005) 81.0 fL MCH (test code = 1006) 26.7 PG MCHC (test code = 1007) 32.9 G/DL RDW (test code = 1038) 14.6 % NEUTROPHILS (test code = 1008) 59.0 % LYMPHOCYTES (test code = 1010) 27.6 % MONOCYTES (test code = 1011) 9.3 % EOSINOPHILS (test code = 1012) 3.1 % BASOPHILS (test code = 1013) 0.6 % IMMATURE GRANULOCYTES (test 0.4 % code = 1036) NUCLEATED RBCS (test code = 0.0 /100WBC'S 1065) PLATELET COUNT (test code = 304 K/UL 1015) ABSOLUTE NEUTROPHILS (test code 5.32 K/UL = 1066) ABSOLUTE LYMPHOCYTES (test code 2.49 K/UL = 1067) ABSOLUTE MONOCYTES (test code = 0.84 K/UL 1068) ABSOLUTE EOSINOPHILS (test code 0.28 K/UL = 1040) ABSOLUTE BASOPHILS (test code = 0.05 K/UL 1069) ABS IMMATURE GRANULOCYTES (test 0.04 K/UL code = 1020) ABS NUCLEATED RBCS (test code = 0.00 K/UL 52984) CBC W/AUTO DIFF WITH PLATELETS [ADDED]2021-10-24 00:00:00 Test Item Value Reference Range Interpretation Comments WBC (test code = 1001) 9.0 K/UL RBC (test code = 1002) 4.20 M/UL HEMOGLOBIN (test code = 1003) 11.2 G/DL HEMATOCRIT (test code = 1004) 34.0 % MCV (test code = 1005) 81.0 fL MCH (test code = 1006) 26.7 PG MCHC (test code = 1007) 32.9 G/DL RDW (test code = 1038) 14.6 % NEUTROPHILS (test code = 1008) 59.0 % LYMPHOCYTES (test code = 1010) 27.6 % MONOCYTES (test code = 1011) 9.3 % EOSINOPHILS (test code = 1012) 3.1 % BASOPHILS (test code = 1013) 0.6 % IMMATURE GRANULOCYTES (test 0.4 % code = 1036) NUCLEATED RBCS (test code = 0.0 /100WBC'S 1065) PLATELET COUNT (test code = 304 K/UL 1015) ABSOLUTE NEUTROPHILS (test code 5.32 K/UL = 1066) ABSOLUTE LYMPHOCYTES (test code 2.49 K/UL = 1067) ABSOLUTE MONOCYTES (test code = 0.84 K/UL 1068) ABSOLUTE EOSINOPHILS (test code 0.28 K/UL = 1040) ABSOLUTE BASOPHILS (test code = 0.05 K/UL 1069) ABS IMMATURE GRANULOCYTES (test 0.04 K/UL code = 1020) ABS NUCLEATED RBCS (test code = 0.00 K/UL 66004) HEPATIC FUNCTION PANEL [ADDED]2021-10-24 00:00:00 Test Item Value Reference Range Interpretation Comments PROTEIN, TOTAL (test code = 2229) 7.1 G/DL ALBUMIN (test code = 2201) 4.5 G/DL BILIRUBIN, TOTAL (test code = 2207) 0.4 MG/DL BILIRUBIN, DIRECT (test code = 0.2 MG/DL 2021) ALKALINE PHOSPHATASE (test code = 55 U/L 2203) AST (test code = 2218) 17 U/L ALT (test code = 2219) 14 U/L HEPATIC FUNCTION PANEL [ADDED]2021-10-24 00:00:00 Test Item Value Reference Range Interpretation Comments PROTEIN, TOTAL (test code = 2229) 7.1 G/DL ALBUMIN (test code = 2201) 4.5 G/DL BILIRUBIN, TOTAL (test code = 2207) 0.4 MG/DL BILIRUBIN, DIRECT (test code = 0.2 MG/DL 2021) ALKALINE PHOSPHATASE (test code = 55 U/L 2203) AST (test code = 2218) 17 U/L ALT (test code = 2219) 14 U/L TSH, THIRD GENERATION [ADDED]2021-10-24 00:00:00 Test Item Value Reference Range Interpretation Comments TSH, THIRD GENERATION (test code 2.700 UIU/ML = 2821) TSH, THIRD GENERATION [ADDED]2021-10-24 00:00:00 Test Item Value Reference Range Interpretation Comments TSH, THIRD GENERATION (test code 2.700 UIU/ML = 2821) TSH, THIRD GENERATION [ADDED]2021-10-24 00:00:00 Test Item Value Reference Range Interpretation Comments TSH, THIRD GENERATION (test code 2.700 UIU/ML = 2821) HEMOGLOBIN A1c [ADDED]2021-10-24 00:00:00 Test Item Value Reference Range Interpretation Comments HEMOGLOBIN A1c (test code = 75318) 9.3 % HEMOGLOBIN A1c [ADDED]2021-10-24 00:00:00 Test Item Value Reference Range Interpretation Comments HEMOGLOBIN A1c (test code = 12011) 9.3 % HEMOGLOBIN A1c [ADDED]2021-10-24 00:00:00 Test Item Value Reference Range Interpretation Comments HEMOGLOBIN A1c (test code = 50257) 9.3 % COMPREHENSIVE METABOLIC PANEL [ADDED]2021-10-24 00:00:00 Test Item Value Reference Range Interpretation Comments GLUCOSE (test code = 2217) 119 MG/DL BUN (test code = 2208) 15 MG/DL CREATININE (test code = 2214) 0.93 MG/DL eGFR (2020 CKD-EPI) (test code 64 ML/MIN/1.73 = 25291) CALC BUN/CREAT (test code = 16 RATIO 2235) SODIUM (test code = 2231) 139 MEQ/L POTASSIUM (test code = 2228) 4.7 MEQ/L CHLORIDE (test code = 2215) 101 MEQ/L CARBON DIOXIDE (test code = 26 MEQ/L 2205) CALCIUM (test code = 2209) 10.3 MG/DL PROTEIN, TOTAL (test code = 7.1 G/DL 2228) ALBUMIN (test code = 2201) 4.5 G/DL CALC GLOBULIN (test code = 2.6 G/DL 2239) CALC A/G RATIO (test code = 1.7 RATIO 2234) BILIRUBIN, TOTAL (test code = 0.4 MG/DL 2206) ALKALINE PHOSPHATASE (test 55 U/L code = 2204) AST (test code = 2218) 17 U/L ALT (test code = 2219) 14 U/L COMPREHENSIVE METABOLIC PANEL [ADDED]2021-10-24 00:00:00 Test Item Value Reference Range Interpretation Comments GLUCOSE (test code = 2217) 119 MG/DL BUN (test code = 2208) 15 MG/DL CREATININE (test code = 2214) 0.93 MG/DL eGFR (2020 CKD-EPI) (test code 64 ML/MIN/1.73 = 12527) CALC BUN/CREAT (test code = 16 RATIO 2235) SODIUM (test code = 2231) 139 MEQ/L POTASSIUM (test code = 2228) 4.7 MEQ/L CHLORIDE (test code = 2215) 101 MEQ/L CARBON DIOXIDE (test code = 26 MEQ/L 2206) CALCIUM (test code = 2209) 10.3 MG/DL PROTEIN, TOTAL (test code = 7.1 G/DL 2229) ALBUMIN (test code = 2201) 4.5 G/DL CALC GLOBULIN (test code = 2.6 G/DL 2240) CALC A/G RATIO (test code = 1.7 RATIO 2234) BILIRUBIN, TOTAL (test code = 0.4 MG/DL 2207) ALKALINE PHOSPHATASE (test 55 U/L code = 2204) AST (test code = 2218) 17 U/L ALT (test code = 2219) 14 U/L CBC W/AUTO DIFF WITH PLATELETS [ADDED]2021-10-24 00:00:00 Test Item Value Reference Range Interpretation Comments WBC (test code = 1001) 9.0 K/UL RBC (test code = 1002) 4.20 M/UL HEMOGLOBIN (test code = 1003) 11.2 G/DL HEMATOCRIT (test code = 1004) 34.0 % MCV (test code = 1005) 81.0 fL MCH (test code = 1006) 26.7 PG MCHC (test code = 1007) 32.9 G/DL RDW (test code = 1038) 14.6 % NEUTROPHILS (test code = 1008) 59.0 % LYMPHOCYTES (test code = 1010) 27.6 % MONOCYTES (test code = 1011) 9.3 % EOSINOPHILS (test code = 1012) 3.1 % BASOPHILS (test code = 1013) 0.6 % IMMATURE GRANULOCYTES (test 0.4 % code = 1036) NUCLEATED RBCS (test code = 0.0 /100WBC'S 1065) PLATELET COUNT (test code = 304 K/UL 1015) ABSOLUTE NEUTROPHILS (test code 5.32 K/UL = 1066) ABSOLUTE LYMPHOCYTES (test code 2.49 K/UL = 1067) ABSOLUTE MONOCYTES (test code = 0.84 K/UL 1068) ABSOLUTE EOSINOPHILS (test code 0.28 K/UL = 1040) ABSOLUTE BASOPHILS (test code = 0.05 K/UL 1069) ABS IMMATURE GRANULOCYTES (test 0.04 K/UL code = 1020) ABS NUCLEATED RBCS (test code = 0.00 K/UL 92584) CBC W/AUTO DIFF WITH PLATELETS [ADDED]2021-10-24 00:00:00 Test Item Value Reference Range Interpretation Comments WBC (test code = 1001) 9.0 K/UL RBC (test code = 1002) 4.20 M/UL HEMOGLOBIN (test code = 1003) 11.2 G/DL HEMATOCRIT (test code = 1004) 34.0 % MCV (test code = 1005) 81.0 fL MCH (test code = 1006) 26.7 PG MCHC (test code = 1007) 32.9 G/DL RDW (test code = 1038) 14.6 % NEUTROPHILS (test code = 1008) 59.0 % LYMPHOCYTES (test code = 1010) 27.6 % MONOCYTES (test code = 1011) 9.3 % EOSINOPHILS (test code = 1012) 3.1 % BASOPHILS (test code = 1013) 0.6 % IMMATURE GRANULOCYTES (test 0.4 % code = 1036) NUCLEATED RBCS (test code = 0.0 /100WBC'S 1065) PLATELET COUNT (test code = 304 K/UL 1015) ABSOLUTE NEUTROPHILS (test code 5.32 K/UL = 1066) ABSOLUTE LYMPHOCYTES (test code 2.49 K/UL = 1067) ABSOLUTE MONOCYTES (test code = 0.84 K/UL 1068) ABSOLUTE EOSINOPHILS (test code 0.28 K/UL = 1040) ABSOLUTE BASOPHILS (test code = 0.05 K/UL 1069) ABS IMMATURE GRANULOCYTES (test 0.04 K/UL code = 1020) ABS NUCLEATED RBCS (test code = 0.00 K/UL 68972) CBC W/AUTO DIFF WITH PLATELETS [ADDED]2021-10-24 00:00:00 Test Item Value Reference Range Interpretation Comments WBC (test code = 1001) 9.0 K/UL RBC (test code = 1002) 4.20 M/UL HEMOGLOBIN (test code = 1003) 11.2 G/DL HEMATOCRIT (test code = 1004) 34.0 % MCV (test code = 1005) 81.0 fL MCH (test code = 1006) 26.7 PG MCHC (test code = 1007) 32.9 G/DL RDW (test code = 1038) 14.6 % NEUTROPHILS (test code = 1008) 59.0 % LYMPHOCYTES (test code = 1010) 27.6 % MONOCYTES (test code = 1011) 9.3 % EOSINOPHILS (test code = 1012) 3.1 % BASOPHILS (test code = 1013) 0.6 % IMMATURE GRANULOCYTES (test 0.4 % code = 1036) NUCLEATED RBCS (test code = 0.0 /100WBC'S 1065) PLATELET COUNT (test code = 304 K/UL 1015) ABSOLUTE NEUTROPHILS (test code 5.32 K/UL = 1066) ABSOLUTE LYMPHOCYTES (test code 2.49 K/UL = 1067) ABSOLUTE MONOCYTES (test code = 0.84 K/UL 1068) ABSOLUTE EOSINOPHILS (test code 0.28 K/UL = 1040) ABSOLUTE BASOPHILS (test code = 0.05 K/UL 1069) ABS IMMATURE GRANULOCYTES (test 0.04 K/UL code = 1020) ABS NUCLEATED RBCS (test code = 0.00 K/UL 72642) HEPATIC FUNCTION PANEL [ADDED]2021-10-24 00:00:00 Test Item Value Reference Range Interpretation Comments PROTEIN, TOTAL (test code = 2229) 7.1 G/DL ALBUMIN (test code = 2201) 4.5 G/DL BILIRUBIN, TOTAL (test code = 2207) 0.4 MG/DL BILIRUBIN, DIRECT (test code = 0.2 MG/DL 2021) ALKALINE PHOSPHATASE (test code = 55 U/L 2203) AST (test code = 2218) 17 U/L ALT (test code = 2219) 14 U/L HEPATIC FUNCTION PANEL [ADDED]2021-10-24 00:00:00 Test Item Value Reference Range Interpretation Comments PROTEIN, TOTAL (test code = 2229) 7.1 G/DL ALBUMIN (test code = 2201) 4.5 G/DL BILIRUBIN, TOTAL (test code = 2207) 0.4 MG/DL BILIRUBIN, DIRECT (test code = 0.2 MG/DL 2021) ALKALINE PHOSPHATASE (test code = 55 U/L 220) AST (test code = 2218) 17 U/L ALT (test code = 2219) 14 U/L TSH, THIRD GENERATION [ADDED]2021-10-24 00:00:00 Test Item Value Reference Range Interpretation Comments TSH, THIRD GENERATION (test code 2.700 UIU/ML = 2821) TSH, THIRD GENERATION [ADDED]2021-10-24 00:00:00 Test Item Value Reference Range Interpretation Comments TSH, THIRD GENERATION (test code 2.700 UIU/ML = 2821) TSH, THIRD GENERATION [ADDED]2021-10-24 00:00:00 Test Item Value Reference Range Interpretation Comments TSH, THIRD GENERATION (test code 2.700 UIU/ML = 2821) URINE CULTURE, NO [id number] 11:52:08SPECIMEN NUMBER: [id number] URINE CULTURE, NO SENS SPECIMEN NUMBER: [id number] SPECIMEN COMMENT: URINESOURCE: URINE REPORT STATUS: FINAL ISOLATE NUMBER 1: ORGANISM: 06/21/2021 >100,000 CFU/ML GRAM NEGATIVE BACILLI IDENTIFICATION: 06/22/2021 ESCHERICHIA COLI E. COLI AMOXICILLIN/CA SENSITIVE <=8/4AMPICILLIN SENSITIVE <=8CEFAZOLIN SENSITIVE <=2CEFTRIAXONE SENSITIVE <=1CIPROFLOXACIN RESISTANT >2LEVOFLOXACIN RESISTANT >4NITROFURANTOIN SENSITIVE <=32PIP/TAZOBAC SENSITIVE <=16TETRACYCLINE RESISTANT >8TOBRAMYCIN SENSITIVE <=4TRIMETH/SULFA SENSITIVE <=2/38NOTE: NUMBERS DISPLAYED REPRESENT MINIMUM INHIBITORY CONCENTRATION (JACOB) WHICH IS EXPRESSED IN MCG/ML. UNLESS OTHERWISE INDICATED, ALL TESTING PERFORMED [facility] [address] [place] [address] CURING FINISHER: JANUSZ JJ M.D. CLIA NUMBER [id number] [facility] [id number] CULTURE, NO [id number] 00:00:00 Test Item Value Reference Range Interpretation Comments URINE CULTURE, NO SPECIMEN NUMBER: SENS (test code = [id number]) URINE CULTURE, NO [id number] 00:00:00 Test Item Value Reference Range Interpretation Comments URINE CULTURE, NO SPECIMEN NUMBER: SENS (test code = [id number]) URINE CULTURE, NO [id number] 00:00:00 Test Item Value Reference Range Interpretation Comments URINE CULTURE, NO SPECIMEN NUMBER: SENS (test code = [id number] 56570) URINE CULTURE, NO [id number] 00:00:00 Test Item Value Reference Range Interpretation Comments URINE CULTURE, NO SPECIMEN NUMBER: SENS (test code = [id number] 12742) URINE CULTURE, NO [id number] 00:00:00 Test Item Value Reference Range Interpretation Comments URINE CULTURE, NO SPECIMEN NUMBER: SENS (test code = [id number] 63592) URINE CULTURE, NO [id number] 00:00:00 Test Item Value Reference Range Interpretation Comments URINE CULTURE, NO SPECIMEN NUMBER: SENS (test code = [id number] 71751) URINE CULTURE, NO [id number] 00:00:00 Test Item Value Reference Range Interpretation Comments URINE CULTURE, NO SPECIMEN NUMBER: SENS (test code = [id number] 26883) URINE CULTURE, NO [id number] 00:00:00 Test Item Value Reference Range Interpretation Comments URINE CULTURE, NO SPECIMEN NUMBER: SENS (test code = [id number] 50271) CULTURE, [id number] 00:00:00 Test Item Value Reference Range Interpretation Comments CULTURE, URINE (test SPECIMEN NUMBER: code = 02972) [id number] CULTURE, [id number] 00:00:00 Test Item Value Reference Range Interpretation Comments CULTURE, URINE (test SPECIMEN NUMBER: code = 08340) [id number] CULTURE, [id number] 00:00:00 Test Item Value Reference Range Interpretation Comments CULTURE, URINE (test SPECIMEN NUMBER: code = 71195) [id number] CULTURE, [id number] 00:00:00 Test Item Value Reference Range Interpretation Comments CULTURE, URINE (test SPECIMEN NUMBER: code = 26281) [id number] CULTURE, [id number] 00:00:00 Test Item Value Reference Range Interpretation Comments CULTURE, URINE (test SPECIMEN NUMBER: code = 72208) [id number] CULTURE, [id number] 00:00:00 Test Item Value Reference Range Interpretation Comments CULTURE, URINE (test SPECIMEN NUMBER: code = 64982) [id number] CULTURE, [id number] 00:00:00 Test Item Value Reference Range Interpretation Comments CULTURE, URINE (test SPECIMEN NUMBER: code = 76287) [id number] CULTURE, [id number] 00:00:00 Test Item Value Reference Range Interpretation Comments CULTURE, URINE (test SPECIMEN NUMBER: code = 51760) [id number] HEMOGLOBIN [id number] 00:00:00 Test Item Value Reference Range Interpretation Comments HEMOGLOBIN A1c (test code = 12448) 9.2 % HEMOGLOBIN [id number] 00:00:00 Test Item Value Reference Range Interpretation Comments HEMOGLOBIN A1c (test code = 26642) 9.2 % HEMOGLOBIN [id number] 00:00:00 Test Item Value Reference Range Interpretation Comments HEMOGLOBIN A1c (test code = 24159) 9.2 % LIPID [id number] 00:00:00 Test Item Value Reference Range Interpretation Comments CHOLESTEROL (test code = 2210) 178 MG/DL TRIGLYCERIDES (test code = 2232) 154 MG/DL HDL CHOLESTEROL (test code = 2220) 52 MG/DL CALC LDL CHOL (test code = 2237) 100 MG/DL RISK RATIO LDL/HDL (test code = 1.92 RATIO 2238) LIPID [id number] 00:00:00 Test Item Value Reference Range Interpretation Comments CHOLESTEROL (test code = 2210) 178 MG/DL TRIGLYCERIDES (test code = 2232) 154 MG/DL HDL CHOLESTEROL (test code = 2220) 52 MG/DL CALC LDL CHOL (test code = 2237) 100 MG/DL RISK RATIO LDL/HDL (test code = 1.92 RATIO 2238) COMPREHENSIVE METABOLIC [id number] 00:00:00 Test Item Value Reference Range Interpretation Comments GLUCOSE (test code = 2217) 140 MG/DL BUN (test code = 2208) 24 MG/DL CREATININE (test code = 2214) 0.92 MG/DL eGFR AMER. (test code 71 ML/MIN/1.73 = 88404) eGFR NON- AMER. (test 61 ML/MIN/1.73 code = 03955) CALC BUN/CREAT (test code = 26 RATIO 2235) SODIUM (test code = 2231) 140 MEQ/L POTASSIUM (test code = 2228) 5.0 MEQ/L CHLORIDE (test code = 2215) 98 MEQ/L CARBON DIOXIDE (test code = 28 MEQ/L 2205) CALCIUM (test code = 2209) 10.3 MG/DL PROTEIN, TOTAL (test code = 7.3 G/DL 2228) ALBUMIN (test code = 2201) 4.5 G/DL CALC GLOBULIN (test code = 2.8 G/DL 2239) CALC A/G RATIO (test code = 1.6 RATIO 2234) BILIRUBIN, TOTAL (test code = 0.3 MG/DL 2207) ALKALINE PHOSPHATASE (test 56 U/L code = 2204) AST (test code = 2218) 25 U/L ALT (test code = 2219) 20 U/L COMPREHENSIVE METABOLIC [id number] 00:00:00 Test Item Value Reference Range Interpretation Comments GLUCOSE (test code = 2217) 140 MG/DL BUN (test code = 2208) 24 MG/DL CREATININE (test code = 2214) 0.92 MG/DL eGFR AMER. (test code 71 ML/MIN/1.73 = 77192) eGFR NON- AMER. (test 61 ML/MIN/1.73 code = 41894) CALC BUN/CREAT (test code = 26 RATIO 2235) SODIUM (test code = 2231) 140 MEQ/L POTASSIUM (test code = 2228) 5.0 MEQ/L CHLORIDE (test code = 2215) 98 MEQ/L CARBON DIOXIDE (test code = 28 MEQ/L 2205) CALCIUM (test code = 2209) 10.3 MG/DL PROTEIN, TOTAL (test code = 7.3 G/DL 2228) ALBUMIN (test code = 2201) 4.5 G/DL CALC GLOBULIN (test code = 2.8 G/DL 0) CALC A/G RATIO (test code = 1.6 RATIO 4) BILIRUBIN, TOTAL (test code = 0.3 MG/DL 2206) ALKALINE PHOSPHATASE (test 56 U/L code = 2204) AST (test code = 2218) 25 U/L ALT (test code = 2219) 20 U/L HEMOGLOBIN [id number] 00:00:00 Test Item Value Reference Range Interpretation Comments HEMOGLOBIN A1c (test code = 22691) 9.2 % HEMOGLOBIN [id number] 00:00:00 Test Item Value Reference Range Interpretation Comments HEMOGLOBIN A1c (test code = 33473) 9.2 % HEMOGLOBIN [id number] 00:00:00 Test Item Value Reference Range Interpretation Comments HEMOGLOBIN A1c (test code = 64394) 9.2 % LIPID [id number] 00:00:00 Test Item Value Reference Range Interpretation Comments CHOLESTEROL (test code = 2210) 178 MG/DL TRIGLYCERIDES (test code = 2232) 154 MG/DL HDL CHOLESTEROL (test code = 2220) 52 MG/DL CALC LDL CHOL (test code = 2237) 100 MG/DL RISK RATIO LDL/HDL (test code = 1.92 RATIO 2238) LIPID [id number] 00:00:00 Test Item Value Reference Range Interpretation Comments CHOLESTEROL (test code = 2210) 178 MG/DL TRIGLYCERIDES (test code = 2232) 154 MG/DL HDL CHOLESTEROL (test code = 2220) 52 MG/DL CALC LDL CHOL (test code = 2237) 100 MG/DL RISK RATIO LDL/HDL (test code = 1.92 RATIO 2238) COMPREHENSIVE METABOLIC [id number] 00:00:00 Test Item Value Reference Range Interpretation Comments GLUCOSE (test code = 2217) 140 MG/DL BUN (test code = 2208) 24 MG/DL CREATININE (test code = 2214) 0.92 MG/DL eGFR AMER. (test code 71 ML/MIN/1.73 = 02872) eGFR NON- AMER. (test 61 ML/MIN/1.73 code = 96645) CALC BUN/CREAT (test code = 26 RATIO 2235) SODIUM (test code = 2231) 140 MEQ/L POTASSIUM (test code = 2228) 5.0 MEQ/L CHLORIDE (test code = 2215) 98 MEQ/L CARBON DIOXIDE (test code = 28 MEQ/L 2205) CALCIUM (test code = 2209) 10.3 MG/DL PROTEIN, TOTAL (test code = 7.3 G/DL 2228) ALBUMIN (test code = 2201) 4.5 G/DL CALC GLOBULIN (test code = 2.8 G/DL 2240) CALC A/G RATIO (test code = 1.6 RATIO 2234) BILIRUBIN, TOTAL (test code = 0.3 MG/DL 2206) ALKALINE PHOSPHATASE (test 56 U/L code = 2204) AST (test code = 2218) 25 U/L ALT (test code = 2219) 20 U/L COMPREHENSIVE METABOLIC [id number] 00:00:00 Test Item Value Reference Range Interpretation Comments GLUCOSE (test code = 2217) 140 MG/DL BUN (test code = 2208) 24 MG/DL CREATININE (test code = 2214) 0.92 MG/DL eGFR AMER. (test code 71 ML/MIN/1.73 = 62374) eGFR NON- AMER. (test 61 ML/MIN/1.73 code = 58992) CALC BUN/CREAT (test code = 26 RATIO 2235) SODIUM (test code = 2231) 140 MEQ/L POTASSIUM (test code = 2228) 5.0 MEQ/L CHLORIDE (test code = 2215) 98 MEQ/L CARBON DIOXIDE (test code = 28 MEQ/L 2205) CALCIUM (test code = 2209) 10.3 MG/DL PROTEIN, TOTAL (test code = 7.3 G/DL 2228) ALBUMIN (test code = 2201) 4.5 G/DL CALC GLOBULIN (test code = 2.8 G/DL 2239) CALC A/G RATIO (test code = 1.6 RATIO 2234) BILIRUBIN, TOTAL (test code = 0.3 MG/DL 2206) ALKALINE PHOSPHATASE (test 56 U/L code = 2204) AST (test code = 2218) 25 U/L ALT (test code = 2219) 20 U/L HEMOGLOBIN [id number] 00:00:00 Test Item Value Reference Range Interpretation Comments HEMOGLOBIN A1c (test code = 14366) 9.2 % HEMOGLOBIN [id number] 00:00:00 Test Item Value Reference Range Interpretation Comments HEMOGLOBIN A1c (test code = 25346) 9.2 % HEMOGLOBIN [id number] 00:00:00 Test Item Value Reference Range Interpretation Comments HEMOGLOBIN A1c (test code = 72647) 9.2 % LIPID [id number] 00:00:00 Test Item Value Reference Range Interpretation Comments CHOLESTEROL (test code = 2210) 178 MG/DL TRIGLYCERIDES (test code = 2232) 154 MG/DL HDL CHOLESTEROL (test code = 2220) 52 MG/DL CALC LDL CHOL (test code = 2237) 100 MG/DL RISK RATIO LDL/HDL (test code = 1.92 RATIO 2238) LIPID [id number] 00:00:00 Test Item Value Reference Range Interpretation Comments CHOLESTEROL (test code = 2210) 178 MG/DL TRIGLYCERIDES (test code = 2232) 154 MG/DL HDL CHOLESTEROL (test code = 2220) 52 MG/DL CALC LDL CHOL (test code = 2237) 100 MG/DL RISK RATIO LDL/HDL (test code = 1.92 RATIO 2238) COMPREHENSIVE METABOLIC [id number] 00:00:00 Test Item Value Reference Range Interpretation Comments GLUCOSE (test code = 2217) 140 MG/DL BUN (test code = 2208) 24 MG/DL CREATININE (test code = 2214) 0.92 MG/DL eGFR AMER. (test code 71 ML/MIN/1.73 = 05638) eGFR NON- AMER. (test 61 ML/MIN/1.73 code = 35141) CALC BUN/CREAT (test code = 26 RATIO 2235) SODIUM (test code = 2231) 140 MEQ/L POTASSIUM (test code = 2228) 5.0 MEQ/L CHLORIDE (test code = 2215) 98 MEQ/L CARBON DIOXIDE (test code = 28 MEQ/L 2205) CALCIUM (test code = 2209) 10.3 MG/DL PROTEIN, TOTAL (test code = 7.3 G/DL 2228) ALBUMIN (test code = 2201) 4.5 G/DL CALC GLOBULIN (test code = 2.8 G/DL 2240) CALC A/G RATIO (test code = 1.6 RATIO 2234) BILIRUBIN, TOTAL (test code = 0.3 MG/DL 2206) ALKALINE PHOSPHATASE (test 56 U/L code = 2204) AST (test code = 2218) 25 U/L ALT (test code = 2219) 20 U/L COMPREHENSIVE METABOLIC [id number] 00:00:00 Test Item Value Reference Range Interpretation Comments GLUCOSE (test code = 2217) 140 MG/DL BUN (test code = 2208) 24 MG/DL CREATININE (test code = 2214) 0.92 MG/DL eGFR AMER. (test code 71 ML/MIN/1.73 = 13077) eGFR NON- AMER. (test 61 ML/MIN/1.73 code = 84590) CALC BUN/CREAT (test code = 26 RATIO 2235) SODIUM (test code = 2231) 140 MEQ/L POTASSIUM (test code = 2228) 5.0 MEQ/L CHLORIDE (test code = 2215) 98 MEQ/L CARBON DIOXIDE (test code = 28 MEQ/L 2205) CALCIUM (test code = 2209) 10.3 MG/DL PROTEIN, TOTAL (test code = 7.3 G/DL 2228) ALBUMIN (test code = 2201) 4.5 G/DL CALC GLOBULIN (test code = 2.8 G/DL 2240) CALC A/G RATIO (test code = 1.6 RATIO 2234) BILIRUBIN, TOTAL (test code = 0.3 MG/DL 2206) ALKALINE PHOSPHATASE (test 56 U/L code = 2204) AST (test code = 2218) 25 U/L ALT (test code = 2219) 20 U/L HEMOGLOBIN [id number] 00:00:00 Test Item Value Reference Range Interpretation Comments HEMOGLOBIN A1c (test code = 89711) 9.2 % HEMOGLOBIN [id number] 00:00:00 Test Item Value Reference Range Interpretation Comments HEMOGLOBIN A1c (test code = 77219) 9.2 % HEMOGLOBIN [id number] 00:00:00 Test Item Value Reference Range Interpretation Comments HEMOGLOBIN A1c (test code = 35475) 9.2 % LIPID [id number] 00:00:00 Test Item Value Reference Range Interpretation Comments CHOLESTEROL (test code = 2210) 178 MG/DL TRIGLYCERIDES (test code = 2232) 154 MG/DL HDL CHOLESTEROL (test code = 2220) 52 MG/DL CALC LDL CHOL (test code = 2237) 100 MG/DL RISK RATIO LDL/HDL (test code = 1.92 RATIO 2238) LIPID [id number] 00:00:00 Test Item Value Reference Range Interpretation Comments CHOLESTEROL (test code = 2210) 178 MG/DL TRIGLYCERIDES (test code = 2232) 154 MG/DL HDL CHOLESTEROL (test code = 2220) 52 MG/DL CALC LDL CHOL (test code = 2237) 100 MG/DL RISK RATIO LDL/HDL (test code = 1.92 RATIO 2238) COMPREHENSIVE METABOLIC [id number] 00:00:00 Test Item Value Reference Range Interpretation Comments GLUCOSE (test code = 2217) 140 MG/DL BUN (test code = 2208) 24 MG/DL CREATININE (test code = 2214) 0.92 MG/DL eGFR AMER. (test code 71 ML/MIN/1.73 = 78953) eGFR NON- AMER. (test 61 ML/MIN/1.73 code = 65479) CALC BUN/CREAT (test code = 26 RATIO 2235) SODIUM (test code = 2231) 140 MEQ/L POTASSIUM (test code = 2228) 5.0 MEQ/L CHLORIDE (test code = 2215) 98 MEQ/L CARBON DIOXIDE (test code = 28 MEQ/L 2205) CALCIUM (test code = 2209) 10.3 MG/DL PROTEIN, TOTAL (test code = 7.3 G/DL 2229) ALBUMIN (test code = 2201) 4.5 G/DL CALC GLOBULIN (test code = 2.8 G/DL 2240) CALC A/G RATIO (test code = 1.6 RATIO 2234) BILIRUBIN, TOTAL (test code = 0.3 MG/DL 2207) ALKALINE PHOSPHATASE (test 56 U/L code = 2204) AST (test code = 2218) 25 U/L ALT (test code = 2219) 20 U/L COMPREHENSIVE METABOLIC [id number] 00:00:00 Test Item Value Reference Range Interpretation Comments GLUCOSE (test code = 2217) 140 MG/DL BUN (test code = 2208) 24 MG/DL CREATININE (test code = 2214) 0.92 MG/DL eGFR AMER. (test code 71 ML/MIN/1.73 = 83041) eGFR NON- AMER. (test 61 ML/MIN/1.73 code = 92899) CALC BUN/CREAT (test code = 26 RATIO 2235) SODIUM (test code = 2231) 140 MEQ/L POTASSIUM (test code = 2228) 5.0 MEQ/L CHLORIDE (test code = 2215) 98 MEQ/L CARBON DIOXIDE (test code = 28 MEQ/L 2205) CALCIUM (test code = 2209) 10.3 MG/DL PROTEIN, TOTAL (test code = 7.3 G/DL 2229) ALBUMIN (test code = 2201) 4.5 G/DL CALC GLOBULIN (test code = 2.8 G/DL 2240) CALC A/G RATIO (test code = 1.6 RATIO 2234) BILIRUBIN, TOTAL (test code = 0.3 MG/DL 2207) ALKALINE PHOSPHATASE (test 56 U/L code = 2204) AST (test code = 2218) 25 U/L ALT (test code = 2219) 20 U/L CULTURE, [id number] 00:00:00 Test Item Value Reference Range Interpretation Comments CULTURE, URINE (test SPECIMEN NUMBER: code = 78403) [id number] CULTURE, [id number] 00:00:00 Test Item Value Reference Range Interpretation Comments CULTURE, URINE (test SPECIMEN NUMBER: code = 20022) [id number] CULTURE, [id number] 00:00:00 Test Item Value Reference Range Interpretation Comments CULTURE, URINE (test SPECIMEN NUMBER: code = 53414) [id number] CULTURE, [id number] 00:00:00 Test Item Value Reference Range Interpretation Comments CULTURE, URINE (test SPECIMEN NUMBER: code = 47583) [id number] CULTURE, [id number] 00:00:00 Test Item Value Reference Range Interpretation Comments CULTURE, URINE (test SPECIMEN NUMBER: code = 82044) [id number] CULTURE, [id number] 00:00:00 Test Item Value Reference Range Interpretation Comments CULTURE, URINE (test SPECIMEN NUMBER: code = 40190) [id number] CULTURE, [id number] 00:00:00 Test Item Value Reference Range Interpretation Comments CULTURE, URINE (test SPECIMEN NUMBER: code = 99624) [id number] CULTURE, [id number] 00:00:00 Test Item Value Reference Range Interpretation Comments CULTURE, URINE (test SPECIMEN NUMBER: code = 31025) [id number] CULTURE, [id number] 00:00:00 Test Item Value Reference Range Interpretation Comments CULTURE, URINE (test SPECIMEN NUMBER: code = 03904) [id number] CULTURE, [id number] 00:00:00 Test Item Value Reference Range Interpretation Comments CULTURE, URINE (test SPECIMEN NUMBER: code = 76839) [id number] CULTURE, [id number] 00:00:00 Test Item Value Reference Range Interpretation Comments CULTURE, URINE (test SPECIMEN NUMBER: code = 51435) [id number] CULTURE, [id number] 00:00:00 Test Item Value Reference Range Interpretation Comments CULTURE, URINE (test SPECIMEN NUMBER: code = 87560) [id number] CULTURE, [id number] 00:00:00 Test Item Value Reference Range Interpretation Comments CULTURE, URINE (test SPECIMEN NUMBER: code = 35096) [id number] CULTURE, [id number] 00:00:00 Test Item Value Reference Range Interpretation Comments CULTURE, URINE (test SPECIMEN NUMBER: code = 28160) [id number] CULTURE, [id number] 00:00:00 Test Item Value Reference Range Interpretation Comments CULTURE, URINE (test SPECIMEN NUMBER: code = 63391) [id number] CULTURE, [id number] 00:00:00 Test Item Value Reference Range Interpretation Comments CULTURE, URINE (test SPECIMEN NUMBER: code = 95594) [id number] CULTURE, [id number] 00:00:00 Test Item Value Reference Range Interpretation Comments CULTURE, URINE (test SPECIMEN NUMBER: code = 49043) [id number] CULTURE, [id number] 00:00:00 Test Item Value Reference Range Interpretation Comments CULTURE, URINE (test SPECIMEN NUMBER: code = 21153) [id number] CULTURE, [id number] 00:00:00 Test Item Value Reference Range Interpretation Comments CULTURE, URINE (test SPECIMEN NUMBER: code = 07943) [id number] CULTURE, [id number] 00:00:00 Test Item Value Reference Range Interpretation Comments CULTURE, URINE (test SPECIMEN NUMBER: code = 91672) [id number] CULTURE, [id number] 00:00:00 Test Item Value Reference Range Interpretation Comments CULTURE, URINE (test SPECIMEN NUMBER: code = 45879) [id number] CULTURE, [id number] 00:00:00 Test Item Value Reference Range Interpretation Comments CULTURE, URINE (test SPECIMEN NUMBER: code = 26116) [id number] CULTURE, [id number] 00:00:00 Test Item Value Reference Range Interpretation Comments CULTURE, URINE (test SPECIMEN NUMBER: code = 50030) [id number] CULTURE, [id number] 00:00:00 Test Item Value Reference Range Interpretation Comments CULTURE, URINE (test SPECIMEN NUMBER: code = 74173) [id number]
[2023-02-23] MEDS ORDERED: KETOROLAC 30 MG/ML INJ ONE (01:07)
[2023-02-23] MEDS ORDERED: DIAZEPAM 10 MG/2 ML INJ SYRINGE ONE (01:07)
--- NOTE | 2023-02-23 01:08 | ER ---
Nurse's Notes [facility] Name: Werner Yo Age: 77 yrs Sex: Female : 1945 Arrival Date: 02/23/2023 Time: 00:21 Bed 17 Private MD: Diagnosis: Low back pain Presentation: 02/23 00:24 Chief complaint: EMS states: new onset back pain 02/24. 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 pt states lg3 "i cant move". Coronavirus screen: Client denies travel out of the [place] in the last 14 days. At this time, the client does not indicate any symptoms associated with coronavirus-19. Ebola Screen: No symptoms or risks identified at this time. Initial Sepsis Screen: Does the patient meet any 2 criteria? No. Patient's initial sepsis screen is negative. Does the patient have a suspected source of infection? No. Patient's initial sepsis screen is negative. Risk Assessment: Do you want to hurt yourself or someone else? Patient reports no desire to harm self or others. Onset of symptoms was February 23, 2023. 00:24 Method Of Arrival: EMS: [facility] lg3 00:24 Acuity: ALTON 4 lg3 Triage Assessment: 00:31 General: Appears in no apparent distress. uncomfortable, Behavior is fussy, restless. lg3 Pain: Complains of pain in back. EENT: No deficits noted. No signs and/or symptoms were reported regarding the EENT system. Neuro: Hein Agitation-Sedation Scale (RASS): +1 Restless Level of Consciousness is awake, alert, obeys commands, Oriented to person, place, situation. Cardiovascular: No deficits noted. Denies chest pain, shortness of breath, Capillary refill < 3 seconds Clubbing of nail beds is absent JVD is absent Patient's skin is warm and dry. Respiratory: No deficits noted. Airway is patent Respiratory effort is even, unlabored, Respiratory pattern is regular, symmetrical. GI: No deficits noted. No signs and/or symptoms were reported involving the gastrointestinal system. : No deficits noted. No signs and/or symptoms were reported regarding the genitourinary system. Derm: No deficits noted. No signs and/or symptoms reported regarding the dermatologic system. Skin is intact, is thin, Skin is dry, Skin is normal, Skin temperature is warm. Musculoskeletal: Reports pain in back. Historical: - Allergies: 00:31 No Known Allergies; lg3 - Home Meds: 00:31 aripiprazole 2 mg oral tablet every day at bedtime [Active]; atorvastatin 40 mg oral lg3 tablet every day at bedtime [Active]; carvedilol 6.25 mg oral tablet 1 tab 2 times per day [Active]; clopidogrel 75 mg oral tablet daily [Active]; duloxetine 30 mg oral capsule,delayed release (e.c.) 2 times per day [Active]; ezetimibe 10 mg oral tablet daily [Active]; fenofibrate 150 mg oral capsule daily [Active]; ferrous sulfate 325 mg (65 mg iron) Oral tablet daily [Active]; furosemide 40 mg Oral tablet 2 times per day [Active]; gabapentin 800 mg oral tablet 3 times per day [Active]; Levemir FlexPen 100 unit/mL (3 mL) subcutaneous Insulin Pen 30 units twice a day [Active]; losartan 25 mg oral tablet daily [Active]; metformin 1,000 mg Oral tablet 2 times per day [Active]; omeprazole 20 mg Oral capsule,delayed release (e.c.) daily [Active]; pantoprazole 20 mg oral tablet, delayed release (enteric coated) 2 tabs daily [Active]; spironolactone 25 mg Oral tablet 0.5 tabs daily [Active]; - PMHx: 00:31 acute respiratory failure; acute posthemorrhagic anemia; Hypertensive disorder; Chronic lg3 obstructive lung disease; acute pulmonary edema; Diabetes mellitus; chronic muscle weakness; dysphagia; chronic fatigue; cognitive communication deficit; paroxysmal atrial fibrillation; hypotension; overactive bladder; hyperlipidemia; Bipolar disorder; Major depressive disorder; Anxiety; Congestive heart failure; GERD; - PSHx: 00:31 Unable to Obtain; lg3 - Immunization history:: Adult Immunizations up to date. - Social history:: Smoking status: Patient denies any tobacco usage or history of. Screenin:57 [facility] ED Fall Risk Assessment (Adult) History of falling in the last 3 months, lg3 including since admission Yes- physiologic fall (2 pts) Confusion or Disorientation Yes (5 pts) Intoxicated or Sedated No (0 pts) Impaired Gait Yes (1 pt) Mobility Assist Device Used Yes (1 pt) Altered Elimination Yes (1 pt) Score/Fall Risk Level 3 or more points = High Risk Oriented to surroundings, Maintained a safe environment, Educated pt \\T\\ family on fall prevention, incl call for assistance when getting out of bed, Assessed \\T\\ reinforced patient's understanding of fall precautions. Abuse screen: Denies threats or abuse. Denies injuries from another. Nutritional screening: No deficits noted. Tuberculosis screening: No symptoms or risk factors identified. Assessment: 00:27 General: pt refusing PO pain medication. requests IM or IV interventions. provider lg3 notified. 00:53 General: see triage assessment. lg3 00:54 General: daughter Regina states that PT has been progressively getting more confused and lg3 uncooperative at night. daughter spoke with pt at 2200 and pt denied any pain at that time. daughter states that she can come sit with PT if PT becomes irritated/uncooperative. phone number [phone]. 01:15 General: attempted to contact facility for report X3. no answer. sent to voice mail. lg3 charge notified . 01:37 Reassessment: Patient appears in no apparent distress at this time. Patient and/or lg3 family updated on plan of care and expected duration. Pain level reassessed. Patient is alert, oriented x 3, equal unlabored respirations, skin warm/dry/pink. Patient states symptoms have improved. 02:10 General: report called to [facility]. Per WHITNEY Antony no transport available at night. lg3 Notified RN of facility responsibility of patient transportation. RN stated that she would contact DON and update ED with transport. . 02:45 General: attempted to call facility. no answer. lg3 02:50 Reassessment: Patient appears in no apparent distress at this time. pt quietly resting lg3 with eyes closed. 03:15 General: attempted to call facility. no answer. lg3 04:00 General: attempted to call facility. no answer. lg3 04:10 Reassessment: Patient appears in no apparent distress at this time. pt quietly resting lg3 with eyes closed. 04:40 General: attempted to call facility. no answer. lg3 05:20 General: attempted to call facility. no answer. lg3 05:30 Reassessment: Patient appears in no apparent distress at this time. pt quietly resting lg3 with eyes closed. 05:50 General: received call from WHITNEY Antony from [facility]. Per Cassia, no contract with EMS [facility] for transport and PT will remain in ED until someone from facility can bulk picker. Estimated time of Pt transportation [phone]. charge and family notified. 06:51 Reassessment: Patient appears in no apparent distress at this time. pt quietly resting lg3 with eyes closed. 07:10 Reassessment: Pt sleeping, equal and unlabored respirations, skin is pink/warm/dry. aa5 07:45 Reassessment: Pt sleeping, equal and unlabored respirations, skin is pink/warm/dry. . aa5 08:15 Reassessment: Pt awake and alert, equal and unlabored respirations, skin is aa5 pink/warm/dry. . Vital Signs: 00:24 BP 120 / 54; Pulse 87; Resp 16 S; Temp 98.4(O); Pulse Ox 96% on R/A; Weight 83.91 kg lg3 (M); Height 5 ft. 6 in. (R); 00:30 BP 125 / 55; Pulse 91; Resp 16; Pulse Ox 92% on R/A; km8 01:42 BP 108 / 45; Pulse 81; Resp 16; Pulse Ox 96% on R/A; km8 02:15 BP 113 / 53; Pulse 84; Resp 16 S; Pulse Ox 96% on R/A; lg3 03:15 BP 110 / 48; Pulse 84; Resp 14 S; Pulse Ox 96% on R/A; lg3 04:15 BP 122 / 51; Pulse 91; Resp 14 S; Pulse Ox 96% on R/A; lg3 05:45 BP 119 / 40; Pulse 85; Resp 16 S; Pulse Ox 96% on R/A; lg3 06:45 BP 113 / 56; Pulse 83; Resp 15 S; Pulse Ox 98% on R/A; lg3 07:40 BP 124 / 45; Pulse 87; Resp 15 S; Temp 98(TE); Pulse Ox 97% on R/A; aa5 00:24 Body Mass Index 29.86 (83.91 kg, 167.64 cm) 3 ED Course: 00:24 Patient arrived in ED. lg3 00:24 Rox Troy, WHITNEY is Primary Nurse. lg3 00:24 Heidi Oden PA-C is PHCP. sb4 00:24 Ben Garzon MD is Attending Physician. sb4 00:31 Triage completed. lg3 00:31 Arm band placed on right wrist. lg3 00:57 Patient has correct armband on for positive identification. Placed in gown. Bed in low lg3 position. Call light in reach. Side rails up X2. Client placed on continuous cardiac and pulse oximetry monitoring. NIBP monitoring applied. Door closed. Noise minimized. Warm blanket given. 00:57 Patient maintains SpO2 saturation greater than 95% on room air. lg3 01:50 No provider procedures requiring assistance completed. Patient did not have IV access lg3 during this emergency room visit. Administered Medications: 00:30 CANCELLED (Physician Discretion): [id number] mg PO once sb4 01:01 Drug: Diazepam IM 10 mg IM once Route: IM; Site: right deltoid; km8 01:50 Follow up: Response: No adverse reaction; Marked relief of symptoms; Pain is decreased; lg3 RASS: Drowsy (-1) 01:01 Drug: Ketorolac IM 30 mg IM once Route: IM; Site: left deltoid; km8 01:50 Follow up: Response: No adverse reaction; Marked relief of symptoms; Pain is decreased lg3 Medication: 01:51 VIS not applicable for this client. lg3 Outcome: 01:07 Discharge ordered by . sb4 01:50 Discharged to care home. Report called to [facility] lg3 01:50 Condition: stable 01:50 Discharge instructions given to care home, Instructed on discharge instructions, follow up and referral plans. medication usage, Demonstrated understanding of instructions, follow-up care, medications, Prescriptions given X 1, 08:15 Discharged to care home. aa5 08:15 Condition: stable 08:15 Discharge instructions given to EMS, Instructed on discharge instructions, follow up and referral plans. medication usage, Demonstrated understanding of instructions, follow-up care, medications, Prescriptions given X 1, Report was given to [facility] for transfer back to care home. 08:20 Patient left the ED. aa5 Signatures: Cyn Hoyt, RN RN aa5 Rox Troy RN RN lg3 Heidi Oden, PABrieC PABrieC sb4 Katy Simmons RN RN km8 Corrections: (The following items were deleted from the chart) 00:54 00:36 General: pt refusing PO pain medication. requests IM or IV interventions. lg3 provider notified. lg3 05:45 01:51 General: report called to [facility]. Awaiting transportation at this time. lg3 lg3 05:47 01:37 Reassessment: Patient appears in no apparent distress at this time. No changes lg3 from previously documented assessment. Patient and/or family updated on plan of care and expected duration. Pain level reassessed. Patient is alert, oriented x 3, equal unlabored respirations, skin warm/dry/pink. lg3 05:50 01:51 General: report called to [place] with [facility]. . lg3 lg3 05:54 03:29 General: attempted to call facility. no answer. lg3 lg3 06:40 01:26 General: attempted to contact facility for report X5. no answer. sent to [facility] voicemail. charge notified . lg3 06:42 01:51 General: report called to [facility]. Per Cassia, RN no transport available at [facility] night. Notified RN of facility responsibility of patient transportation. RN stated that she would contact DON and update ED with transport. . lg3 06:42 02:44 General: attempted to call facility. no answer. lg3 lg3 06:42 02:15 General: attempted to call facility. no answer. lg3 lg3 06:42 01:15 General: attempted to contact facility for report X5. no answer. sent to [facility] voicemail. charge notified . lg3 06:43 05:55 General: 3 3 08:27 08:20 Reassessment: Pt awake and alert, equal and unlabored respirations, skin is aa5 pink/warm/dry. . aa5
--- NOTE | 2023-02-23 01:08 | EDPHYS ---
Physician Documentation [facility] Name: Werner Yo Age: 77 yrs Sex: Female : 1945 Arrival Date: 02/23/2023 Time: 00:21 Bed 17 Private MD: ED Physician Ben Garzon HPI: 02/23 00:27 This 77 yrs old Female presents to ER via Unassigned with complaints of back pain. sb4 00:27 The patient presents with pain that is acute, with no known mechanism of injury. The sb4 symptoms are located in the right low back. Onset: The symptoms/episode began/occurred just prior to arrival. The pain does not radiate. Associated signs and symptoms: Pertinent negatives: incontinence, numbness, tingling, urinary retention. The problem was sustained without known cause. Modifying factors: The patient symptoms are alleviated by remaining still, the patient symptoms are aggravated by movement. The patient has not experienced similar symptoms in the past. Historical: - Allergies: 00:31 No Known Allergies; lg3 - Home Meds: 00:31 aripiprazole 2 mg oral tablet every day at bedtime [Active]; atorvastatin 40 mg oral lg3 tablet every day at bedtime [Active]; carvedilol 6.25 mg oral tablet 1 tab 2 times per day [Active]; clopidogrel 75 mg oral tablet daily [Active]; duloxetine 30 mg oral capsule,delayed release (e.c.) 2 times per day [Active]; ezetimibe 10 mg oral tablet daily [Active]; fenofibrate 150 mg oral capsule daily [Active]; ferrous sulfate 325 mg (65 mg iron) Oral tablet daily [Active]; furosemide 40 mg Oral tablet 2 times per day [Active]; gabapentin 800 mg oral tablet 3 times per day [Active]; Levemir FlexPen 100 unit/mL (3 mL) subcutaneous Insulin Pen 30 units twice a day [Active]; losartan 25 mg oral tablet daily [Active]; metformin 1,000 mg Oral tablet 2 times per day [Active]; omeprazole 20 mg Oral capsule,delayed release (e.c.) daily [Active]; pantoprazole 20 mg oral tablet, delayed release (enteric coated) 2 tabs daily [Active]; spironolactone 25 mg Oral tablet 0.5 tabs daily [Active]; - PMHx: 00:31 acute respiratory failure; acute posthemorrhagic anemia; Hypertensive disorder; Chronic lg3 obstructive lung disease; acute pulmonary edema; Diabetes mellitus; chronic muscle weakness; dysphagia; chronic fatigue; cognitive communication deficit; paroxysmal atrial fibrillation; hypotension; overactive bladder; hyperlipidemia; Bipolar disorder; Major depressive disorder; Anxiety; Congestive heart failure; GERD; - PSHx: 00:31 Unable to Obtain; lg3 - Immunization history:: Adult Immunizations up to date. - Social history:: Smoking status: Patient denies any tobacco usage or history of. ROS: 00:27 Constitutional: Negative for fever, chills, and weight loss, sb4 00:27 Back: Positive for pain at rest, pain with movement, 00:27 All other systems are negative, Exam: 00:27 Constitutional: This is a well developed, well nourished patient who is awake, alert, sb4 and in no acute distress. Head/Face: Normocephalic, atraumatic. Eyes: Extra-ocular motions intact. Periorbital areas with no swelling, redness, or edema. ENT: Mucous membranes moist. Cardiovascular: Regular rate and rhythm with a normal S1 and S2. Respiratory: Lungs have equal breath sounds bilaterally, clear to auscultation and percussion. No rales, rhonchi or wheezes noted. No increased work of breathing, no retractions or nasal flaring. Abdomen/GI: Soft, non-tender, no distension. Skin: Warm, dry with normal turgor. Normal color with no rashes, no lesions, and no evidence of cellulitis. MS/ Extremity: Pulses equal, no cyanosis. Neurovascular intact. Full, normal range of motion. 00:27 Back: pain, that is moderate, of the right low back, ROM is painful, normal spinal alignment noted, CVA tenderness, is absent, vertebral tenderness, is not appreciated, muscle spasm, is not present, Straight leg raises: cannot test, patient uncooperative, 00:27 Neuro: Orientation: is normal, no acute changes, Mentation: is normal, appropriate for stated age, lucid, able to follow commands, Cerebellar function: is grossly normal, Motor: is normal, Sensation: is normal, Gait: not applicable not tested. does not ambulate independently. Vital Signs: 00:24 BP 120 / 54; Pulse 87; Resp 16 S; Temp 98.4(O); Pulse Ox 96% on R/A; Weight 83.91 kg lg3 (M); Height 5 ft. 6 in. (R); 00:30 BP 125 / 55; Pulse 91; Resp 16; Pulse Ox 92% on R/A; km8 01:42 BP 108 / 45; Pulse 81; Resp 16; Pulse Ox 96% on R/A; km8 02:15 BP 113 / 53; Pulse 84; Resp 16 S; Pulse Ox 96% on R/A; lg3 03:15 BP 110 / 48; Pulse 84; Resp 14 S; Pulse Ox 96% on R/A; lg3 04:15 BP 122 / 51; Pulse 91; Resp 14 S; Pulse Ox 96% on R/A; lg3 05:45 BP 119 / 40; Pulse 85; Resp 16 S; Pulse Ox 96% on R/A; lg3 06:45 BP 113 / 56; Pulse 83; Resp 15 S; Pulse Ox 98% on R/A; lg3 07:40 BP 124 / 45; Pulse 87; Resp 15 S; Temp 98(TE); Pulse Ox 97% on R/A; aa5 00:24 Body Mass Index 29.86 (83.91 kg, 167.64 cm) lg3 MDM: 00:24 Patient medically screened. sb4 00:27 Differential diagnosis: strain, sprain, sciatica. sb4 01:06 Data reviewed: vital signs, nurses notes, EMS record, [facility] records, and as a sb4 result, I will discharge patient. Test considered but Not performed: X-ray: not indicated, no injury, no rachell tenderness. Counseling: I had a detailed discussion with the patient and/or guardian regarding the historical points, exam findings, and any diagnostic results supporting the discharge/admit diagnosis, to return to the emergency department if symptoms worsen or persist or if there are any questions or concerns that arise at home. Administered Medications: 00:30 CANCELLED (Physician Discretion): [id number] mg PO once sb4 01:01 Drug: Diazepam IM 10 mg IM once Route: IM; Site: right deltoid; km8 01:50 Follow up: Response: No adverse reaction; Marked relief of symptoms; Pain is decreased; lg3 RASS: Drowsy (-1) 01:01 Drug: Ketorolac IM 30 mg IM once Route: IM; Site: left deltoid; km8 01:50 Follow up: Response: No adverse reaction; Marked relief of symptoms; Pain is decreased lg3 Disposition Summary: 02/23/23 01:07 Discharge Ordered Notes: Location: Home sb4 Problem: new sb4 Symptoms: have improved sb4 Condition: Stable sb4 Diagnosis - Low back pain sb4 Followup: sb4 - With: Private Physician - When: As needed - Reason: Recheck today's complaints, Re-evaluation by your physician Discharge Instructions: - Discharge Summary Sheet sb4 - Acute Back Pain, Adult sb4 Forms: - SBAR form aa5 - Medication Reconciliation Form sb4 - Thank You Letter sb4 - Antibiotic Education sb4 - Prescription Opioid Use sb4 - Patient Portal Instructions sb4 - Leadership Thank You Letter sb4 Prescriptions: - Cyclobenzaprine 5 mg Oral Tablet - take 1 tablet ORAL route 3 times per day As needed; 15 tablet; Refills: 0, sb4 Product Selection Permitted Signatures: Rox Troy RN RN lg3 Heidi Oden PA-C PA-C sb4 Katy Simmons RN RN km8 Corrections: (The following items were deleted from the chart) 00:30 00:26 Cyclobenzaprine PO 10 mg PO once ordered. sb4 sb4
[2023-02-23 09:02] VITALS: BP 124/45; TEMP 98; O2SAT 97
== END 2023-02-23 08:20 | disposition home or self-care (01) ==
LOC: ER 00:21
DX: M54.50 Low back pain, unspecified (principal)
CPT/HCPCS: 96372; 99285; J3360

== ENCOUNTER 2024-06-15 11:12 | Inpatient (IN) | payer OTHER ==
--- OUTSIDE RECORDS SUMMARY | 2024-06-15 11:38 | XMS REPORT | Continuity of Care Document ---
Author Name Unknown Address [address] [facility] [address] [place] [address] [facility] [address] [facility] [address] [place] [address] Care Team Providers Care Employment Instructional Associate Name Role Phone Darius CANNON, Mary Primary Care Physic arnel [phone] WILVER BAKER Attending Clinician Unavaila ZOIE Neal Attending Clinician Unavailab ZOIE Noel Attending Clinician Unavailab Chitra OLSON, Nakul Garcia Attending Clinician Unavail able BERTO ROMAN Attending Clinician Unavailable Jewel Sexton MD Attending Clinician [phone] Berto Roman MD Attending Clinician [phone] Florina Chang MD Attending Clinician [phone] ABELARDO BAUTISTA Attending Clinician UnavailAbelardo Coulter Attending Clinician [phone] Wilver Baker MD Attending Clinician [phone] Wilman Mcdonald PA-C Attending Clinician [phone] AWAIS BETHEA Attending Clinician Unavailable AWAIS BETHEA Attending Clinician Unavailable Awais Bethea MD Attending Clinician [phone] Pob, [facility] Attending Clinician Unavailabl WILMAN Colin Attending Clinician Unavailable LALIT PEREZ Attending Clinician Unavail able LALIT PEREZ Attending Clinician Unavail able SANCHEZ HOOPER Attending Clinician Unavaila ble Doctor Unassigned, [place] Attending Clinician U JEWEL Mattson Attending Clinician Unavailable JEWEL SEXTON Attending Clinician Unavailable Darius CANNON, Mary Attending Clinician EZE SANTIAGO Attending Clinician Unavailabl jagjit Santiago MATHEMATICS LECTURER, Eze [place] Attending Clinician [phone] Arlene Hoffman RN Attending Clinician Unavailab ANGEL LUIS Gary Attending Clinician Unavailabl Vinh Maddox MD Attending Clinician [phone] Angel Luis Rangel MD Attending Clinician [phone] SURENDRA HARRIS Attending Clinician Unavaila ble Doctor Unassigned, [place] Attending Clinician U huber Ac MD, Bela Roach Attending Clinician + JOSUE HODGES Attending Clinician Unavailable Josue Hodges DO Attending Clinician [phone] Pob, [facility] Attending Clinician UnavailClark Espinoza Attending Clinician Unavailable Clark Oliver Attending Clinician [phone] GIRISH HERNADEZ Attending Clinician Unavailabl e GC_GCBZW_Kadiyala_S Attending Clinician Unavaila jose a Mariscal RN, Rosaura Bush Attending Clinician Unavail able ANA PAULA BERRY Attending Clinician Unavailable ANA PAULA BERRY Attending Clinician Unavailable Brandon Shelton MD Attending Clinician [phone] Carlos Carolina MD Attending Clinician [phone] Isacc Conley MD Attending Clinician [phone] FAHEEM MA Attending Clinician Unavailable Carlie Oconnor MD Attending Clinician [phone] Gurwinder Raymond MD Attending Clinician [phone] Angel Luis Caputo MD Attending Clinician [phone] Kvng Maxwell MD Attending Clinician [phone] Abbe Walters MD Attending Clinician UnavailABBE Hay Attending Clinician Unavailable Lopez CANNON, [facility] Attending Clinician + [phone] Lalit Perez MD Attending Clinician [phone] ALBERTA OSUNA Attending Clinician Unavailable JAMES BIGGS Attending Clinician Unavailable Vince Thomason DO Attending Clinician [phone] James Biggs MD Attending Clinician [phone] Provider, [facility] Attending Clinician Unavailable Selena Cedeno MD Attending Clinician [phone] SELENA CEDENO Attending Clinician Unavailable IBIS WARNER Attending Clinician Unavailable Cece Vu Attending Clinician [phone] CECE BELCHER Attending Clinician Unavailable FLORINA CHANG Admitting Clinician Unavailable Florina Chang MD Admitting Clinician [phone] ABELARDO BAUTISTA Admitting Clinician UnavailAWAIS Wolf Admitting Clinician Unavailable Awais Bethea MD Admitting Clinician [phone] ANGEL LUIS RANGEL Admitting Clinician Unavailabl Angel Luis Powers MD Admitting Clinician [phone] JOSUE HODGES Admitting Clinician Unavailable Clark JULIAN Admitting Clinician Unavailable [email or web address]_S Admitting Clinician Unavaila CARLOS Dwyer Admitting Clinician Unavailab Kvng Edwards MD Admitting Clinician [phone] KVNG MAXWELL Admitting Clinician Unavailable JAMES BIGGS Admitting Clinician Unavailable James Biggs MD Admitting Clinician [phone] Payers Payer Name Policy Type Policy Number Effective Date Expirati on Date Source Problems Condition Name Condition Details Condition Category Status Onset Date Resolution Date Last Treatment Date Treating Clinician Comments Source Altered mental status, unspecifie d altered mental status type Altered mental status, unspecifie d altered mental status type Disease Active 05-24 00:00: 00 [facility] Presence of Watchman left atrial appendage closure device Presence of Watchman left atrial appendage closure device Disease Active 1 00:00: 00 [facility] Ischemic cerebrovas cular accident (CVA) Ischemic cerebrovas cular accident (CVA) Disease Active 10-21 00:00: 00 [facility] Acute hypoxemic respirator y failure Acute hypoxemic respirator y failure Disease Active 02-10 00:00: 00 [facility] Hypotensio n, unspecifie d hypotensio n type Hypotensio n, unspecifie d hypotensio n type Disease Active 02-02 00:00: 00 [facility] Pulmonary edema Pulmonary edema Disease Active 10-26 00:00: 00 [facility] Acute pulmonary edema Acute pulmonary edema Disease Active 10-26 00:00: 00 [facility] Coronary artery disease involving [place] coronary artery of [place] heart with angina pectoris Coronary artery disease involving [place] coronary artery of [place] heart with angina pectoris Disease Active 10-26 00:00: 00 Overview: Formattin g of this note might be different from the original. Added automatic ally from request for surgery [id number] [facility] Acute systolic congestive heart failure Acute systolic congestive heart failure Disease Active 09-02 00:00: 00 [facility] Acute left-sided CHF (congestiv e heart failure) Acute left-sided CHF (congestiv e heart failure) Disease Active 09-02 00:00: 00 [facility] Low oxygen saturation Low oxygen saturation Disease Active 11-10 00:00: 00 [facility] Pneumonia due to infectious organism Pneumonia due to infectious organism Disease Active 11-10 00:00: 00 [facility] Pneumonia due to infectious organism Pneumonia due to infectious organism Disease Active 11-10 00:00: 00 [facility] Essential hypertensi on Essential hypertensi on Disease Active 2016-05 0 00:00: 00 [facility] Acute on chronic diastolic CHF (congestiv e heart failure), NYHA class 3 Acute on chronic diastolic CHF (congestiv e heart failure), NYHA class 3 Disease Active 2016-05 00:00: 00 [facility] Paroxysmal atrial fibrillati on Paroxysmal atrial fibrillati on Disease Active 2016-05 00:00: 00 [facility] Type 2 diabetes mellitus with complicati on, with long-term current use of insulin Type 2 diabetes mellitus with complicati on, with long-term current use of insulin Disease Active 2016-05 00:00: 00 [facility] Type 2 diabetes mellitus with complicati on, with long-term current use of insulin Type 2 diabetes mellitus with complicati on, with long-term current use of insulin Disease Active 2016-05 00:00: 00 [facility] Chest pain Chest pain Disease Active 02-14 00:00: 00 [facility] Muscle weakness of lower extremity Muscle weakness of lower extremity Disease Active 08-29 00:00: 00 [facility] Abnormal gait Abnormal gait Disease Active 08-29 00:00: 00 [facility] Left knee pain Left knee pain Disease Active 07-11 00:00: 00 [facility] Left knee pain Left knee pain Disease Active 07-11 00:00: 00 [facility] Allergies, Adverse Reactions, Alerts Allergy Name Allergy Type Status Severity Reaction(s) Onset Date Inactive Date Treating Clinician Comments Source NO KNOWN ALLERGIE S Drug Class Active [facility] Social History Social Habit Start Date Stop Date Quantity Comments Source [facility] of tobacco use Cigarette Smoker [facility] History SDOH Alcohol Std Drinks [facility] History SDOH Alcohol Binge [facility] History SDOH Social Connections Get Together [facility] History SDOH Social Connections [facility] History SDOH Social Connections Membership [facility] History SDOH Social Connections Meetings [facility] Tobacco use and exposure 2024-05-26 00:00:00 2024-05-26 00:00:00 Smokeless tobacco non-user [facility] Alcoholic beverage intake 2024-05-26 00:00:00 2024-05-26 00:00:00 0 /d [facility] Cigarettes smoked current (pack per day) - Reported 2024-05-26 00:00:00 2024-05-26 00:00:00 [facility] Cigarette pack-years 2024-05-26 00:00:00 2024-05-26 00:00:00 [facility] Alcohol intake 2023-07-12 00:00:00 2023-07-12 00:00:00 0 /d [facility] History SDOH Alcohol Frequency 2022-10-27 00:00:00 2022-10-27 00:00:00 1 [facility] History SDOH Social Connections Phone 2022-10-27 00:00:00 2022-10-27 00:00:00 5 [facility] History SDOH Social Connections Living 2022-10-27 00:00:00 2022-10-27 00:00:00 3 [facility] History SDOH Physical Activity DPW 2022-10-27 00:00:00 2022-10-27 00:00:00 0 [facility] History SDOH Physical Activity MPS 2022-10-27 00:00:00 2022-10-27 00:00:00 0 [facility] History SDOH Financial 2022-10-27 00:00:00 2022-10-27 00:00:00 5 [facility] History SDOH Food Worry 2022-10-27 00:00:00 2022-10-27 00:00:00 1 [facility] History SDOH Food Scarcity 2022-10-27 00:00:00 2022-10-27 00:00:00 1 [facility] History SDOH Transport Med 2022-10-27 00:00:00 2022-10-27 00:00:00 2 [facility] History SDOH Transport Non-Med 2022-10-27 00:00:00 2022-10-27 00:00:00 2 [facility] History SDOH Housing Unable to Pay 2022-10-27 00:00:00 2022-10-27 00:00:00 2 [facility] History SDOH Housing Places Lived 2022-10-27 00:00:00 2022-10-27 00:00:00 1 [facility] History SDOH Housing Homeless Last Year 2022-09-03 00:00:00 2022-09-03 00:00:00 2 [facility] Exposure to SARS-CoV-2 (event) 2022-08-23 00:00:00 2022-09-02 21:35:00 Yes [facility] History of Social function 2018-11-25 00:00:00 2018-11-25 00:00:00 [facility] Sex assigned at 1945 00:00:00 1945 00:00:00 [facility] Smoking Status Start Date Stop Date Source Ex-smoker 2024-05-26 00:00:00 2024-05-26 [facility]00[facility] Medications Ordered Medication Name Filled Medication Name Start Date Stop Date Current Medication? Ordering Clinician Indication Dosage Frequency Signature (SIG) Comments Components Source furosemide 20 mg tablet 06-09 00:00: 00 07-10 05:59 :00 Yes [id number] 20mg Take 1 tablet by mouth in the morning for 30 days. [facility] guaiFENesin 100 mg/5 mL solution 06-08 00:00: 00 Yes [id number] 200mg Take 10 mL by mouth every 6 (six) hours as needed for Cough. [facility] insulin lispro, human, 100 unit/mL injection 06-08 00:00: 00 Yes [id number] 5U inject 5 Units under the skin in the morning and 5 Units at noon and 5 Units in the evening. inject before meals. [facility] carvediloL 3.125 mg tablet 06-08 00:00: 00 07-09 05:59 :00 Yes [id number] 3.125mg Take 1 tablet by mouth in the morning and 1 tablet in the evening. Take with meals. Do all this for 30 days. [facility] insulin glargine (LANTUS U-100) injection 15 Units 06-06 02:00: 00 06-08 23:43 :38 No 15U 15 Units, Subcutaneo us, BID, First dose (after last modificati on) on Thu06/05/24 at 2000, Until Discontinu ed, Routine [facility] insulin lispro (human) (HumaLOG U-100) injection 12 Units 06-05 22:30: 00 06-08 23:43 :38 No 12U 12 Units, Subcutaneo us, TIDAC, First dose (after last modificati on) on Thu06/05/24 at 1630, Until Discontinu ed, Routine Univers [facility] predniSONE (DELTASONE) tablet 10 mg 06-05 15:00: 00 06-08 13:47 :00 No 10mg 10 mg, Oral, DAILY, 4 doses, First dose on Thu06/05/24 at 0900, Last dose on Thu06/08/24 at 0900, Routine [facility] ipratropium -albuteroL (DUONEB) 0.5 mg-3 mg(2.5 mg base)/3 mL nebulizer solution 3 mL 06-04 02:00: 00 06-08 23:43 :38 No 3mL 3 mL, Inhalation , TID, First dose (after last modificati on) on Thu06/03/24 at 2000, Until Discontinu ed, Routine [facility] predniSONE (DELTASONE) tablet 20 mg 06-01 15:00: 00 06-04 14:01 :00 No 20mg 20 mg, Oral, DAILY, 4 doses, First dose on Thu06/01/24 at 0900, Last dose on Thu06/04/24 at 0900, [facility] furosemide (LASIX) injection 20 mg 05-31 11:15: 00 05-31 10:46 :00 No 20mg 20 mg, Slow IV Push, ONCE, 1 dose, On Thu05/31/24 at 0515, [facility] methylPREDN ISolone sod succ (SOLU-MEDRO L (PF)) injection 40 mg 05-31 10:13: 00 05-31 10:33 :00 No 40mg 40 mg, Intravenou s, ONCE, 1 dose, On Thu05/31/24 at 0415, 1 mL [facility] NaCl 0.9% (NS) injection 10 mL 05-30 17:05: 38 06-08 23:43 :38 No 10mL 10 mL, Slow IV Push, PRN, Starting on Thu05/30/24 at 1105, Until Thu06/08/24 at 1743, Routine, line maintenanc e [facility] lidocaine 1% (PF) (XYLOCAINE) injection 5 mL 05-30 17:05: 38 06-08 23:43 :38 No 5mL 5 mL, Subcutaneo us, PRN, 1 dose, Starting on Thu05/30/24 at 1105, Until Thu06/08/24 at 1743, Routine, Local anesthesia [facility] carvediloL (COREG) tablet 3.125 mg 05-30 16:45: 00 Yes 3.125mg 3.125 mg, Oral, BID MEALS, First dose (after last modificati on) on Thu05/30/24 at 1045, Until Discontinu ed, Routine [facility] guaiFENesin 100 mg/5 mL solution 200 mg 05-29 18:00: 00 Yes 200mg 200 mg, Oral, Q6H, First dose on Thu05/29/24 at 1200, Until Discontinu ed, Routine [facility] hydralAZINE (APRESOLINE ) injection 10 mg 05-29 05:15: 59 06-08 23:43 :38 No 10mg 10 mg, Slow IV Push, Q4HPRN, Starting on 05/28/24 at 2315, Until Thu06/08/24 at 1743, STAT, DBP=>100; SBP=>160 [facility] insulin lispro (human) (HumaLOG U-100) injection 10 Units 05-28 22:30: 00 06-05 17:44 :26 No 10U 10 Units, Subcutaneo us, TIDAC, First dose (after last modificati on) on Thu05/28/24 at 1630, Until Discontinu ed, Routine [facility] methylPREDN ISolone sod succ (SOLU-MEDRO L (PF)) injection 40 mg 05-28 15:00: 00 05-31 19:56 :21 No 40mg 40 mg, Slow IV Push, DAILY, 5 doses, First dose (after last modificati on) on Thu05/28/24 at 0900, Last dose on Thu06/01/24 at 0900, Routine [facility] losartan (COZAAR) tablet 50 mg 05-28 15:00: 00 05-30 16:39 :37 No 50mg 50 mg, Oral, DAILY, First dose (after last modificati on) on Thu05/28/24 at 0900, Until Discontinu ed, Routine [facility] cefTRIAXone (ROCEPHIN) 1,000 mg in water for injection, sterile 10 mL IV Push 05-28 03:00: 00 05-31 02:52 :00 No 1000mg 1,000 mg, Intravenou s, Q24H ABX, 4 doses, First dose on Thu05/27/24 at 2100, Last dose on Thu05/30/24 at 2100, 10 mL, Reason for Anti-Infec tive: Documented Infection, Documented Infection Site: Respirator y, Duration of Therapy: 7 days [facility] insulin glargine (LANTUS U-100) injection 30 Units 05-28 02:00: 00 06-05 17:42 :13 No 30U 30 Units, Subcutaneo us, BID, First dose (after last modificati on) on Thu05/27/24 at 2000, Until Discontinu ed, Routine [facility] ipratropium -albuteroL (DUONEB) 0.5 mg-3 mg(2.5 mg base)/3 mL nebulizer solution 3 mL 05-28 00:00: 00 06-04 01:47 :21 No 3mL 3 mL, Inhalation , Q6H, First dose (after last modificati on) on Thu05/27/24 at 1800, Until Discontinu ed, Routine [facility] Sliding Scale Insulin - Lispro (HumaLOG) 05-27 23:00: 00 06-08 23:43 :38 No Subcutaneo us, TID MEALS+HS, First dose on Thu05/27/24 at 1700, Until Discontinu ed, Routine [facility] insulin lispro (human) (HumaLOG U-100) injection 8 Units 05-27 22:30: 00 05-28 18:44 :31 No .3U/kg/ d 8 Units (rounded from 8.4 Units = 0.3 Units/kg/d ay ?84 kg), Subcutaneo us, TIDAC, First dose (after last modificati on) on Thu05/27/24 at 1630, Until Discontinu ed, Routine [facility] losartan (COZAAR) tablet 25 mg 05-27 22:30: 00 05-27 22:30 :00 No 25mg 25 mg, Oral, ONCE, 1 dose, On Thu05/27/24 at 1630, Routine [facility] furosemide (LASIX) tablet 20 mg 05-27 15:00: 00 Yes 20mg 20 mg, Oral, DAILY, First dose on Thu05/27/24 at 0900, Until Discontinu ed, Routine [facility] enoxaparin (LOVENOX) injection 40 mg 05-27 15:00: 00 06-08 23:43 :38 No 40mg 40 mg, Subcutaneo us, DAILY, First dose on Thu05/27/24 at 0900, Until Discontinu ed, Routine [facility] ferrous sulfate tablet 325 mg 05-27 15:00: 00 06-08 23:43 :38 No 325mg 325 mg, Oral, DAILY, First dose on Thu05/27/24 at 0900, Until Discontinu ed, Routine [facility] losartan (COZAAR) tablet 25 mg 05-27 15:00: 00 05-27 22:18 :50 No 25mg 25 mg, Oral, DAILY, First dose on Thu05/27/24 at 0900, Until Discontinu ed, Routine [facility] gabapentin (NEURONTIN) tablet 800 mg 05-27 02:00: 00 06-08 23:43 :38 No 800mg 800 mg, Oral, BID, First dose on Thu05/26/24 at 1999, Until Discontinu ed, Routine [facility] ARIPiprazol e (ABILIFY) tablet 2.5 mg 05-27 02:00: 00 06-08 23:43 :38 No 2.5mg 2.5 mg, Oral, BID, First dose on Thu05/26/24 at 1999, Until Discontinu ed, Routine [facility] magnesium oxide (MAG-OX 400) tablet 400 mg 05-27 02:00: 00 06-08 23:43 :38 No 400mg 400 mg, Oral, BID, First dose on Thu05/26/24 at 1999, Until Discontinu ed, Routine [facility] insulin glargine (LANTUS U-100) injection 25 Units 05-27 02:00: 00 05-27 23:03 :24 No 25U 25 Units, Subcutaneo us, BID, First dose (after last modificati on) on Thu05/26/24 at 1999, Until Discontinu ed, Routine [facility] insulin lispro (human) (HumaLOG U-100) injection 7 Units 05-26 22:30: 00 05-27 21:36 :16 No 7U 7 Units, Subcutaneo us, TIDAC, First dose (after last modificati on) on Thu05/26/24 at 1630, Until Discontinu ed, Routine [facility] mupirocin (BACTROBAN OINT) 2 % oinintment 05-26 17:30: 00 06-08 23:43 :38 No [facility] fluconazole (DIFLUCAN) tablet 150 mg 05-26 17:30: 00 05-26 17:20 :00 No 150mg 150 mg, Oral, ONCE, 1 dose, On Thu05/26/24 at 1130, SYED, Reason for Anti-Infec tive: Documented Infection, Documented Infection Site: Other, Other site: Vaginal, Duration of Therapy: Other (see Comments) [facility] azithromyci n (ZITHROMAX) tablet 500 mg 05-26 15:00: 00 05-27 14:41 :00 No 500mg 500 mg, Oral, DAILY, 2 doses, First dose on Thu05/26/24 at 0900, Last dose on Thu05/27/24 at 0900, Routine, Reason for Anti-Infec tive: Documented Infection, Documented Infection Site: Respirator y, Duration of Therapy: Other (see Comments) [facility] insulin lispro (human) (HumaLOG U-100) injection 3 Units 05-26 13:30: 00 05-26 19:27 :37 No 3U 3 Units, Subcutaneo us, TIDAC, First dose on Thu05/26/24 at 0730, Until Discontinu ed, Routine [facility] atorvastati n (LIPITOR) tablet 80 mg 05-26 03:00: 00 06-08 23:43 :38 No 80mg 80 mg, Oral, QHS, First dose on Thu05/25/24 at 2100, Until Discontinu ed, Routine [facility] cefTRIAXone (ROCEPHIN) 1,000 mg in water for injection, sterile 10 mL IV Push 05-26 03:00: 00 05-27 22:13 :46 No 1000mg 1,000 mg, Intravenou s, Q24H ABX, 5 doses, First dose (after last reorder) on Thu05/25/24 at 2100, Last dose on Thu05/29/24 at 2100, 10 mL, Reason for Anti-Infec tive: Empiric Therapy for Suspected Infection, Empiric Therapy Site: Respirator y, Duration of therapy: 5 days [facility] Sliding Scale Insulin - Lispro (HumaLOG) 05-26 03:00: 00 05-27 21:36 :16 No Subcutaneo us, TID MEALS+HS, First dose on Thu05/25/24 at 2100, Until Discontinu ed, Routine [facility] insulin glargine (LANTUS U-100) injection 20 Units 05-26 03:00: 00 05-26 19:27 :37 No 20U 20 Units, Subcutaneo us, QHS, First dose (after last modificati on) on Thu05/25/24 at 2100, Until Discontinu ed, Routine [facility] methylPREDN ISolone sod succ (SOLU-MEDRO L (PF)) injection 40 mg 05-25 15:45: 00 05-27 16:14 :56 No 40mg 40 mg, Slow IV Push, BID, First dose (after last modificati on) on Thu05/25/24 at 0945, Until Discontinu ed, Routine [facility] spironolact one (ALDACTONE) tablet 12.5 mg 05-25 15:00: 00 06-08 23:43 :38 No 12.5mg 12.5 mg, Oral, DAILY, First dose on Thu05/25/24 at 0900, Until Discontinu ed, Routine [facility] ezetimibe (ZETIA) tablet 10 mg 05-25 15:00: 00 06-08 23:43 :38 No 10mg 10 mg, Oral, DAILY, First dose on Thu05/25/24 at 0900, Until Discontinu ed, Routine [facility] clopidogreL (PLAVIX) 75 mg tablet 75 mg 05-25 15:00: 00 06-08 23:43 :38 No 75mg 75 mg, Oral, DAILY, First dose on Thu05/25/24 at 0900, Until Discontinu ed, Routine [facility] aspirin chewable tablet 81 mg 05-25 15:00: 00 06-08 23:43 :38 No 81mg 81 mg, Oral, DAILY, First dose on Thu05/25/24 at 0900, Until Discontinu ed, Routine [facility] enoxaparin (LOVENOX) injection 40 mg 05-25 15:00: 00 05-27 00:06 :23 No 40mg 40 mg, Subcutaneo us, DAILY, First dose on Thu05/25/24 at 0900, Until Discontinu ed, Routine [facility] DULoxetine (CYMBALTA) capsule 30 mg 05-25 14:00: 00 06-08 23:43 :38 No 30mg 30 mg, Oral, BID, First dose on Thu05/25/24 at 0800, Until Discontinu ed, Routine [facility] nystatin (MYCOSTATIN ) cream 05-25 14:00: 00 06-08 23:43 :38 No Topical, BID, First dose on Thu05/25/24 at 0800, Until Discontinu ed, Routine [facility] carvediloL (COREG) tablet 6.25 mg 05-25 14:00: 00 05-30 16:39 :37 No 6.25mg 6.25 mg, Oral, BID MEALS, First dose on Thu05/25/24 at 0800, Until Discontinu ed, Routine [facility] ipratropium -albuteroL (DUONEB) 0.5 mg-3 mg(2.5 mg base)/3 mL nebulizer solution 3 mL 05-25 14:00: 00 05-27 20:10 :57 No 3mL 3 mL, Inhalation , QID, First dose on Thu05/25/24 at 0800, Until Discontinu ed, Routine [facility] Sliding Scale Insulin-Reg ular 05-25 13:30: 00 05-25 23:15 :30 No Subcutaneo us, AC+HS, First dose on Thu05/25/24 at 0730, Until Discontinu ed, Routine [facility] glucagon HCL injection 1 mg 05-25 13:05: 32 06-08 23:43 :38 No 1mg [facility] dextrose 50 % in water (D50W) injection 25 mL 05-25 13:05: 32 06-08 23:43 :38 No 25mL [facility] codeine-gua ifenesin (ROBITUSSIN AC) 10-100 mg/5 mL oral solution 5 mL 05-25 12:56: 37 05-29 15:54 :51 No 5mL 5 mL, Oral, Q4HPRN, Starting on Thu05/25/24 at 0656, Until Thu05/29/24 at 0954, Routine, Cough [facility] pantoprazol e (PROTONIX) EC tablet 40 mg 05-25 12:00: 00 06-08 23:43 :38 No 40mg 40 mg, Oral, QAM-0600, First dose on Thu05/25/24 at 0600, Until Discontinu ed, Routine [facility] traMADoL (ULTRAM) tablet 50 mg 05-25 08:32: 34 06-08 23:43 :38 No 50mg 50 mg, Oral, Q4HPRN, Starting on Thu05/25/24 at 0232, Until Thu06/08/24 at 1743, Routine, Pain (scale 4-6) [facility] ipratropium -albuteroL (DUONEB) 0.5 mg-3 mg(2.5 mg base)/3 mL nebulizer solution 3 mL 05-25 08:30: 39 06-08 23:43 :38 No 3mL 3 mL, Inhalation , QIDPRN, Starting on Thu05/25/24 at 0230, Until Thu06/08/24 at 1743, Routine, Wheezing, Shortness of Breath, Bronchospa sm, Chest tightness [facility] azithromyci n (ZITHROMAX) 500 mg in NaCl 0.9% (NS) 250 mL VIAL-MATE IV piggyback 05-25 05:45: 00 05-25 08:45 :00 No 500mg 500 mg, IV Piggyback, ONCE, 1 dose, On Thu05/24/24 at 2345, Administer over 60 Minutes, 250 mL, Reason for Anti-Infec tive: Documented Infection, Documented Infection Site: Respirator y, Duration of Therapy: Once (ED) [facility] acetaminoph en (TYLENOL) tablet 650 mg 05-25 05:09: 08 06-08 23:43 :38 No 650mg 650 mg, Oral, Q6HPRN, Starting on Thu05/24/24 at 2309, Until Thu06/08/24 at 1743, Routine, Pain (scale 1-3) [facility] ipratropium -albuteroL (DUONEB) 0.5 mg-3 mg(2.5 mg base)/3 mL nebulizer solution 3 mL 05-25 04:45: 00 05-25 03:50 :00 No 3mL 3 mL, Inhalation , ONCE, 1 dose, On Thu05/24/24 at 2245, [facility] methylpredn isolone sod succ (SOLU-MEDRO L) injection 125 mg 05-25 03:50: 00 05-25 03:50 :00 No 125mg 125 mg, Intravenou s, ONCE, 1 dose, On Thu05/24/24 at 2200, 2 mL [facility] ipratropium -albuteroL (DUONEB) 0.5 mg-3 mg(2.5 mg base)/3 mL nebulizer solution 3 mL 05-25 03:06: 00 05-25 03:09 :00 No 3mL 3 mL, Inhalation , ONCE, 1 dose, On Thu05/24/24 at 2115, [facility] cefTRIAXone (ROCEPHIN) 1,000 mg in water for injection, sterile 10 mL IV Push 05-25 03:00: 00 05-25 02:58 :00 No 1000mg 1,000 mg, Intravenou s, ONCE, 1 dose, On Thu05/24/24 at 2100, 10 mL, Reason for Anti-Infec tive: Documented Infection, Documented Infection Site: Urine, Duration of Therapy: Once (ED) [facility] clopidogrel 75 mg tablet 2023-05 00:00: 00 Yes mg Surendra White ezetimibe 10 mg tablet 2023-05 00:00: 00 Yes mg Surendra White iopamidol (ISOVUE 370-500 mL) injection 85 mL 2023-05 22:00: 00 05-05 21:04 :00 No [id number] 85mL 85 mL, Intravenou s, ONCE, 1 dose, On Mendy 05/05/24 at 1600, Routine [facility] losartan 25 mg tablet 2023-05 00:00: 00 Yes mg Surendra White nystatin 100,000 unit/gram topical powder 2023-05 00:00: 00 Yes 1unit/g milad Surendra White clopidogreL 75 mg tablet 2023-05 00:00: 00 Yes [id number] 75mg Take 1 tablet by mouth in the morning. [facility] Tresiba FlexTouch U-100 insulin 100 unit/mL (3 mL) subcutaneou s pen 2023-05 00:00: 00 Yes (3 mL) Surendra White Basaglar KwikPen U-100 Insulin 100 unit/mL (3 mL) subcutaneou s 2023-05 00:00: 00 Yes (3 mL) Surendra White duloxetine 60 mg capsule,del ayed release 2023-05 00:00: 00 Yes mg Surendra White Abilify 5 mg tablet 2023-05- 00:00: 00 Yes 5mg Surendra White metformin 1,000 mg tablet 2023-05- 00:00: 00 Yes 1mg Surendra White magnesium oxide 400 mg (241.3 mg magnesium) tablet 2023-05 00:00: 00 Yes 400mg Take 1 tablet by mouth in the morning and 1 tablet in the evening. [facility] lactated ringers IV infusion 1,000 mL 2023-05 14:45: 00 03-10 21:41 :04 No 1000mL at 75 mL/hr, 1,000 mL, IV Infusion, CONTINUOUS , Starting on Mendy 03/10/24 at 0945, Until Mendy 03/10/24 at 1641, Routine, PACU [facility] ondansetron (ZOFRAN (PF)) injection 4 mg 2023-05 14:42: 58 03-10 21:41 :04 No 4mg 4 mg, Slow IV Push, PRN, 1 dose, Starting on Thu03/10/24 at 0942, Until Thu03/10/24 at 1641, Routine, Nausea and Vomiting (N/V), PACU [facility] aspirin 81 mg chewable tablet 2023-05 14:40: 33 Yes 81mg Take 1 tablet by mouth in the morning. [facility] iopamidol (ISOVUE-370 ) injection 2023-05 14:10: 00 03-10 14:37 :27 No ONCE INTRA PROCEDURE, Starting on Mendy 03/10/24 at 0910, Until Thu03/10/24 at 0937, Routine, CV Intraproce dure [facility] ezetimibe 10 mg tablet 2023-05 00:00: 00 Yes [id number] 10mg Take 1 tablet by mouth in the morning. [facility] atorvastati n (LIPITOR) 80 mg tablet 2023-05 00:00: 00 03-04 00:00 :00 No [id number] 80mg Take 1 tablet by mouth at bedtime. [facility] pantoprazol e 40 mg tablet,norm yed release 2023-05 00:00: 00 Yes mg Surendra White fenofibrate micronized 134 mg capsule 2023-05 0 00:00: 00 Yes mg Surendra White gabapentin 800 mg tablet 2023-05 0- 00:00: 00 Yes mg Surendra White pantoprazol e 40 mg tablet,norm yed release 2023-05 00:00: 00 Yes mg Surendra White ferrous sulfate 325 mg (65 mg iron) tablet,norm yed release - 00:00: 00 Yes (65 mg iron) Surendra White duloxetine 60 mg capsule,del ayed release 02-01 00:00: 00 Yes mg Surendra White clopidogrel 75 mg tablet 02-01 00:00: 00 Yes mg Surendra White ezetimibe 10 mg tablet 02-01 00:00: 00 Yes mg Surendra White Abilify 5 mg tablet 02-01 00:00: 00 Yes 5mg Surendra White furosemide 40 mg tablet 01-26 00:00: 00 Yes 1mg Surendra White duloxetine 60 mg capsule,del ayed release 01-14 00:00: 00 Yes mg Surendra White Tresiba FlexTouch U-100 insulin 100 unit/mL (3 mL) subcutaneou s pen 01-14 00:00: 00 Yes (3 mL) Surendra White furosemide 40 mg tablet 01-14 00:00: 00 Yes 1mg Surendra White furosemide 40 mg tablet 01-08 00:00: 00 Yes mg Surendra White Basaglar KwikPen U-100 Insulin 100 unit/mL (3 mL) subcutaneou s 01-08 00:00: 00 Yes (3 mL) Surendra White insulin glargine (U-300) conc. 300 unit/mL (1.5 mL) subcutaneou s pen 01-08 00:00: 00 Yes (1.5 mL) Surendra White insulin regular human (HUMULIN R) injection 4 Units 12-29 22:00: 00 12-29 20:58 :00 No 4U 4 Units, Slow IV Push, ONCE, 1 dose, On Thu12/30/23 at 1700, STAT, Indication for insulin: Hyperglyce [facility] insulin regular human (HUMULIN R) injection 8 Units 12-29 21:00: 00 12-29 19:59 :00 No 8U 8 Units, Slow IV Push, ONCE, 1 dose, On Thu12/30/23 at 1600, STAT, Indication for insulin: Hyperglyce [facility] insulin regular human (HUMULIN R) injection 6 Units 12-29 20:00: 00 12-29 19:01 :00 No 6U 6 Units, Slow IV Push, ONCE, 1 dose, On Thu12/30/23 at 1500, STAT, Indication for insulin: Hyperglyce roby [facility] NaCl 0.9% (NS) bolus infusion 1,000 mL 12-29 20:00: 00 12-29 21:50 :00 No 1000mL at 999 mL/hr, 1,000 mL, IV Infusion, ONCE, 1 dose, On Thu12/30/23 at 1500, STAT [facility] metformin 1,000 mg tablet 12-24 00:00: 00 Yes 1mg Surendra White nystatin 100,000 unit/gram topical powder 12-16 00:00: 00 Yes 1unit/g milad Surendra White fluconazole 150 mg tablet 12-16 00:00: 00 Yes 1mg Surendra White carvedilol 12.5 mg tablet 12-09 00:00: 00 Yes mg Surendra White losartan 25 mg tablet 12-09 00:00: 00 Yes mg Surendra White Abilify 5 mg tablet 12-08 00:00: 00 Yes 5mg Surendra White Abilify 5 mg tablet 11-10 00:00: 00 Yes 5mg Surendra White fenofibrate micronized 67 mg capsule 10-26 00:00: 00 11-26 04:59 :00 No [id number] 67mg Take 1 capsule by mouth in the morning for 30 days. [facility] BIOTIN ORAL 10-25 17:14: 55 Yes 2000mg Take 2,000 mg by mouth daily. [facility] metFORMIN (GLUCOPHAGE ) 1,000 mg tablet 10-25 17:14: 55 Yes 1000mg Take 1 tablet by mouth in the morning and 1 tablet in the evening. Take with meals. [facility] GABAPENTIN ORAL 10-25 17:14: 55 06-08 00:00 :00 No 800mg Take 800 mg by mouth in the morning and 800 mg in the evening. [facility] potassium chloride (K-DUR) 10 mEq CR tablet 10-25 17:14: 06-08 00:00 :00 No 20meq Take 2 tablets by mouth in the morning. [facility] tolterodine LA (DETROL LA) 4 mg 24 hr capsule 10-25 17:1406-08 00:00 :00 No 4mg Take 1 capsule by mouth in the morning. [facility] Fentanyl, Bulk, 100 % Powd 10-25 17:14: 06-08 00:00 :00 No [facility] diazePAM 5 mg tablet 10-25:: 06-08 00:00 :00 No (Schedule IV Drug) TAKE 1 TABLET BY MOUTH EVERY EVENING [facility] raloxifene 60 mg tablet 10-25 17:14: 06-08 00:00 :00 No 1 tablet [facility] Insulin Detemir (LEVEMIR FLEXPEN) 100 unit/mL (3 mL) injection 10-25 17:14: 06-08 00:00 :00 No inject under the skin. [facility] ezetimibe (ZETIA) 10 mg tablet 10-25 17:14: 03-04 00:00 :00 No 10mg Take 1 tablet by mouth in the morning. [facility] Fenofibrate 150 mg capsule 10-25 10:40: 23 10-25 00:00 :00 No 150mg Take 1 capsule by mouth in the morning. [facility] losartan 25 mg tablet 10-25 00:00: 00 06-08 00:00 :00 No [id number] 50mg Take 2 tablets by mouth in the morning. [facility] atorvastati n 80 mg tablet 10-25 00:00: 00 11-25 04:59 :00 No [id number] 80mg Take 1 tablet by mouth at bedtime for 30 days. [facility] NIFEdipine ER 30 mg tablet 10-25 00:00: 00 11-25 04:59 :00 No [id number] 30mg Take 1 tablet by mouth in the morning for 30 days. [facility] cefdinir 300 mg capsule 10-25 00:00: 00 11-04 04:59 :00 No [id number] 300mg Take 1 capsule by mouth every 12 (twelve) hours for 9 days. [facility] cefTRIAXone (ROCEPHIN) 1,000 mg in NaCl 0.9% (NS) 100 mL MINI-BAG 10-24 15:30: 00 10-31 15:29 :00 No 1000mg 1,000 mg, IV Piggyback, Q24H ABX, 7 doses, First dose on Thu10/25/23 at 1030, Last dose on Thu10/31/23 at 1030, Administer over 30 Minutes, 100 mL, Reason for Anti-Infec tive: Documented Infection, Documented Infection Site: Urine, Duration of Therapy: 7 days [facility] furosemide (LASIX) tablet 40 mg 10-24 14:00: 00 Yes 40mg 40 mg, Oral, DAILY, First dose (after last modificati on) on Thu10/25/23 at 0900, Until Discontinu ed, Routine [facility] insulin glargine (LANTUS U-100) injection 25 Units 10-23 01:00: 00 Yes 25U 25 Units, Subcutaneo us, Q12H, First dose (after last modificati on) on Thu10/23/23 at 2000, Until Discontinu ed, Routine [facility] Sliding Scale Insulin-Reg ular 10-22 21:30: 00 Yes Subcutaneo us, AC+HS, First dose on Thu10/23/23 at 1630, Until Discontinu ed, Routine [facility] insulin regular human (HUMULIN R) injection 8 Units 10-22 19:00: 00 10-22 18:22 :00 No 8U 8 Units, Subcutaneo us, ONCE, 1 dose, On Thu10/23/23 at 1400, SYED, Indication for insulin: Hyperglyce roby [facility] dextrose 50 % in water (D50W) injection 25 mL 10-22 16:50: 45 Yes 25mL 25 mL, Slow IV Push, PRN, Starting on Thu10/23/23 at 1150, Until Discontinu ed, SYED, Blood Glucose < or = 70 mg/dL and patient is NPO, unable to swallow or has mental status changes. 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 Restricted medication : ANGEL LUIS RANGEL [facility] piperacilli n-tazobacta m (ZOSYN) 3.375 g in NaCl 0.9% (NS) 100 mL MINI-BAG 10-22 10:30: 00 10-24 05:52 :00 No 3.375g 3.375 g, IV Piggyback, Q8H ABX, 6 doses, First dose (after last reorder) on Thu10/23/23 at 0530, Last dose on Thu10/24/23 at 2130, Administer over 4 Hours, 100 mL, Reason for Anti-Infec tive: Documented Infection, Documented Infection Site: Respirator y, Duration of Therapy: Once (ED) [facility] methylPREDN ISolone sod succ (SOLU-MEDRO L (PF)) injection 40 mg 10-22 10:15: 00 10-22 10:01 :00 No 40mg 40 mg, Intravenou s, ONCE, 1 dose, On Thu10/23/23 at 0515, 1 mL [facility] clonazePAM (KLONOPIN) tablet 1 mg 10-22 02:00: 00 Yes 1mg 1 mg, Oral, QHS, First dose on Thu10/22/23 at 2100, Until Discontinu ed, Routine [facility] atorvastati n (LIPITOR) tablet 80 mg 10-22 02:00: 00 Yes 80mg 80 mg, Oral, QHS, First dose on Thu10/22/23 at 2100, Until Discontinu ed, Routine [facility] acetaminoph en-codeine (TYLENOL #3) 300-30 mg tablet 1 tablet 10-21 23:25: 11 Yes 1{tbl} 1 tablet, Oral, Q4HPRN, Starting on Thu10/22/23 at 1825, Until Discontinu ed, Routine, Pain (scale 7-10) [facility] traMADoL (ULTRAM) tablet 50 mg 10-21 23:24: 49 Yes 50mg 50 mg, Oral, Q6HPRN, Starting on Mendy 10/22/23 at 1824, Until Discontinu ed, Routine, Pain (scale 4-6) [facility] enoxaparin (LOVENOX) injection 40 mg 10-21 22:00: 00 Yes 40mg 40 mg, Subcutaneo us, DAILY, First dose on Thu10/22/23 at 1700, Until Discontinu ed, Routine [facility] Saline Bubble Study 10-21 17:29: 42 Yes [id number] 6mL 6 mL, Injection, SEE-INSTRU CTIONS, Starting on Thu10/22/23 at 1229, Until Discontinu ed, Routine [facility] gabapentin (NEURONTIN) capsule 600 mg 10-21 15:00: 00 Yes 600mg 600 mg, Oral, TID, First dose on Thu10/22/23 at 1000, Until Discontinu ed [facility] fenofibrate micronized (LOFIBRA) capsule 67 mg 10-21 15:00: 00 Yes 67mg 67 mg, Oral, DAILY, First dose on Thu10/22/23 at 1000, Until Discontinu ed [facility] tolterodine LA (DETROL LA) 24 hr capsule 4 mg 10-21 14:00: 00 Yes 4mg 4 mg, Oral, DAILY, First dose on Thu10/22/23 at 0900, Until Discontinu ed, Routine [facility] spironolact one (ALDACTONE) tablet 12.5 mg 10-21 14:00: 00 Yes 12.5mg 12.5 mg, Oral, DAILY, First dose on Thu10/22/23 at 0900, Until Discontinu ed, Routine [facility] KCL (KLOR-CON M10) tablet 10 mEq 10-21 14:00: 00 Yes 10meq 10 mEq, Oral, DAILY, First dose on Thu10/22/23 at 0900, Until Discontinu ed [facility] pantoprazol [facility] (PROTONIX) EC tablet 40 mg 10-21 14:00: 00 Yes 40mg 40 mg, Oral, DAILY, First dose on Thu10/22/23 at 0900, Until Discontinu ed, Routine [facility] carvediloL (COREG) tablet 6.25 mg 10-21 13:43: 06 Yes 6.25mg 6.25 mg, Oral, BID MEALS, First dose on Thu10/22/23 at 1700, Until Discontinu ed, Routine [facility] insulin glargine (LANTUS U-100) injection 15 Units 10-21 13:21: 58 10-22 18:09 :16 No 15U 15 Units, Subcutaneo us, Q12H, First dose on Thu10/22/23 at 2000, Until Discontinu ed, Routine [facility] furosemide (LASIX) tablet 40 mg 10-21 13:18: 54 10-23 14:18 :52 No 40mg 40 mg, Oral, BID, First dose on Thu10/22/23 at 2000, Until Discontinu ed, Routine [facility] acetaminoph en (TYLENOL) tablet 650 mg 10-21 13:00: 23 Yes 650mg 650 mg, Oral, Q6HPRN, Starting on Thu10/22/23 at 0800, Until Discontinu ed, Routine, Temp > 38 C, headache [facility] DULoxetine (CYMBALTA) capsule 30 mg 10-21 13:00: 00 Yes 30mg 30 mg, Oral, BID, First dose on Mendy 10/22/23 at 0800, Until Discontinu ed, Routine [facility] losartan (COZAAR) tablet 50 mg 10-21 13:00: 00 Yes 50mg 50 mg, Oral, BID, First dose on Mendy 10/22/23 at 0800, Until Discontinu ed, Routine [facility] Sliding Scale Insulin-Reg ular 10-21 12:30: 00 10-22 16:50 :35 No Subcutaneo us, AC+HS, First dose on Mendy 10/22/23 at 0730, Until Discontinu ed, Routine [facility] glucagon (GLUCAGEN DIAGNOSTIC KIT) injection 1 mg 10-21 11:03: 13 Yes 1mg 1 mg, Intramuscu lar, PRN, Starting on Mendy 10/22/23 at 0603, Until Discontinu ed, SYED, Blood Glucose < or = 70 mg/dL and patient is NPO, unable to swallow or has mental changes. [facility] NIFEdipine ER tablet 30 mg 10-21 11:00: 00 Yes 30mg 30 mg, Oral, BID AT 0600 - 1800, First dose on Thu10/22/23 at 0600, Until Discontinu ed, Routine [facility] aspirin chewable tablet 81 mg 10-21 06:45: 00 10-21 05:59 :00 No 81mg 81 mg, Oral, ONCE NOW, 1 dose, On Thu10/22/23 at 0145, SYED [facility] piperacilli n-tazobacta m (ZOSYN) 3.375 g in NaCl 0.9% (NS) 100 mL MINI-BAG 10-21 05:00: 00 10-21 05:35 :00 No 3.375g 3.375 g, IV Piggyback, ONCE, 1 dose, On Mendy 10/22/23 at 0000, Administer over 30 Minutes, 100 mL, Reason for Anti-Infec tive: Documented Infection, Documented Infection Site: Urine, Duration of Therapy: Once (ED) [facility] NaCl 0.9% (NS) bolus infusion 1,000 mL 10-21 04:00: 00 10-21 03:34 :00 No 1000mL at 999 mL/hr, 1,000 mL, IV Piggyback, ONCE, 1 dose, On Thu10/21/23 at 2300, STAT [facility] duloxetine 60 mg capsule,del ayed release 10-18 00:00: 00 Yes mg Surendra White pantoprazol e 40 mg tablet,norm yed release 10-07 00:00: 00 Yes mg Surendra White FARXIGA 10 MG 09-20 00:00: 00 Yes Surendra White dapaglifloz in propanediol (FARXIGA) 10 mg tablet 09-20 00:00: 00 10-21 00:00 :00 No [id number] 10mg Take 1 tablet by mouth every morning. PLS SCHEDULE FOLLOW UP WITH PROVIDER [facility] Abilify 5 mg tablet 09-16 00:00: 00 Yes 5mg Surendra White ARIPIPRAZOL E 5 MG 09-16 00:00: 00 Yes 5 Surendra White ezetimibe 10 mg tablet 09-13 00:00: 00 Yes mg Surendra White insulin glargine (U-300) conc. 300 unit/mL (1.5 mL) subcutaneou s pen - 00:00: 00 Yes (1.5 mL) Surendra White furosemide 40 mg tablet -15 00:00: 00 Yes mg Surendra White Farxiga 10 mg tablet -06 00:00: 00 Yes mg Surendra White carvedilol 12.5 mg tablet - 00:00: 00 Yes mg Surendra White losartan 25 mg tablet -25 00:00: 00 Yes mg Surendra White pantoprazol e 40 mg tablet,norm yed release -22 00:00: 00 Yes mg Surendra White metformin 1,000 mg tablet -21 00:00: 00 Yes 1mg Surendra F Christopher TAKE 1 TABLET BY MOUTH TWICE A DAY 3-17 00:00: 00 Yes 40 Surendra White duloxetine 60 mg capsule,del ayed release - 00:00: 00 Yes mg Surendra White TAKE 1 TABLET DAILY. - 00:00: 00 Yes 40 Surendra White TAKE 1 TABLET TWICE A DAY 07-14 00:00: 00 Yes 125 Surendra White iopamidol (ISOVUE 370-500 mL) injection 100 mL 07-10 03:15: 00 07-10 03:15 :00 No [id number] 100mL 100 mL, Intravenou s, ONCE, 1 dose, On [facility] 07/09/23 at 2115, Routine [facility] pantoprazol e (PROTONIX) 80 mg in NaCl 0.9% (NS) 20 mL syringe 07-10 02:00: 00 07-10 01:28 :00 No 80mg 80 mg, IV Push, ONCE, 1 dose, On Mendy 07/09/23 at 2000, Administer over 2 Minutes, 20 mL [facility] TAKE 1 DAILY 07-10 00:00: 00 Yes 60 Surendra White ONDANSETRON ODT 4 MG 07-09 00:00: 00 Yes Surendra White ondansetron 4 mg disintegrat ing tablet 07-09 00:00: 00 06-08 00:00 :00 No [id number] 4mg Take 1 tablet by mouth every 8 (eight) hours as needed for Nausea and Vomiting (N/V). [facility] aripiprazol e 5 mg tablet - 00:00: 00 Yes mg Surendra White ezetimibe 10 mg tablet 06-18 00:00: 00 Yes mg Surendra White INJECT 30 UNITS IN AM AND 25 UNITS IN PM - 00:00: 00 Yes 300 Surendra White HALF TABLET Q AM -30 00:00: 00 Yes 25 Surendra White clopidogrel 75 mg tablet - 00:00: 00 Yes mg Surendra White fenofibrate micronized 134 mg capsule 2022-05 00:00: 00 Yes mg Surendra White pantoprazol e 40 mg tablet,norm yed release 2022-05 00:00: 00 Yes mg Surendra White TAKE 1 TABLET DAILY. 2022-05 00:00: 00 Yes 25 Surendra White furosemide 40 mg tablet 2022-05 00:00: 00 Yes mg Surendra White gabapentin 800 mg tablet 2022-05 00:00: 00 Yes mg Surendra White LEVEMIR FLEX 100U/ML PEN 2022-05 00:00: 00 Yes Surendra White TAKE 1 TABLET TWICE DAILY. 2022-05 00:00: 00 09-29 00:00 :00 No 40 Surendra White TAKE 1 CAPSULE 4 TIMES DAILY. 2022-05 00:00: 00 09-29 00:00 :00 No 50 Surendra White TAKE 1 DAILY 2022-05 00:00: 00 09-29 00:00 :00 No 60 Surendra White TAKE 1 TABLET BY MOUTH TWICE A DAY 2022-05 00:00: 00 Yes Surendra White ferrous sulfate 325 mg (65 mg iron) tablet,norm yed release 2022-05 00:00: 00 Yes (65 mg iron) Surendra White FARXIGA 10MG 2022-05 00:00: 00 Yes Surendra White TAKE 1 TABLET DAILY. 2022-05 00:00: 00 09-29 00:00 :00 No 40 Surendra White INJECT 30 UNITS IN AM AND 25 UNITS IN PM 2022-05 00:00: 00 09-29 00:00 :00 No 100 Surendra White HALF TABLET Q AM 2022-05 00:00: 00 09-29 00:00 :00 No 25 Surendra White magnesium sulfate in water 2 gram/50 mL (4 %) infusion 2 g 2022-05 00:30: 00 04-02 00:53 :00 No 2g 2 g, IV Piggyback, Administer over 60 Minutes, ONCE, 1 dose, On Thu04/01/23 at 1830, Routine [facility] furosemide (LASIX) injection 40 mg 2022-05 22:30: 00 04-01 22:32 :00 No 40mg 40 mg, IV Push, ONCE, 1 dose, On Thu04/01/23 at 1630, SYED [facility] potassium chloride (K-DUR) 10 mEq CR tablet 2022-05 18:22: 12 Yes 20meq Take 20 mEq by mouth daily. [facility] POT CL MICRO 20MEQ ER 2022-05 00:00: 00 Yes Surendra White KCL 20 mEq tablet 2022-05 00:00: 00 04-05 05:59 :00 No [id number] 20meq Take 1 tablet by mouth in the morning for 3 days. [facility] TAKE 1 TABLET DAILY 2022-05 00:00: 00 Yes Surendra White TAKE 1 TABLET TWICE A DAY 2022-05 00:00: 00 09-29 00:00 :00 No 125 Surendra White TAKE 1 TABLET TWICE DAILY. 2022-05 00:00: 00 09-29 00:00 :00 No 40 Surendra White GABAPENTIN ORAL 2022-05 13:47: 11 Yes 800mg Take 800 mg by mouth 3 (three) times daily. [facility] metFORMIN (GLUCOPHAGE ) 1,000 mg tablet 2022-05 13:47: 11 Yes 1000mg Take 1 tablet by mouth in the morning and 1 tablet in the evening. Take with meals. [facility] ezetimibe (ZETIA) 10 mg tablet 2022-05 13:47: 11 Yes 10mg Take 1 tablet by mouth in the morning. [facility] Fenofibrate 150 mg capsule 2022-05 13:47: 11 Yes 150mg Take 1 capsule by mouth in the morning. [facility] Insulin Detemir (LEVEMIR FLEXPEN) 100 unit/mL (3 mL) injection 2022-05 13:47: 11 Yes inject under the skin. [facility] dapaglifloz in propanediol (FARXIGA) 10 mg tablet 2022-05 00:00: 00 Yes [id number] 10mg Take 1 tablet by mouth in the morning. [facility] TAKE 1 TABLET BY MOUTH EVERY DAY IN THE MORNING 2022-05 00:00: 00 Yes Surendra White spironolact one 25 mg tablet 2022-05 00:00: 00 Yes mg Surendra White GABAPENTIN 800MG 2022-05 00:00: 00 Yes Surendra White TAKE 1 TABLET BY MOUTH EVERYDAY AT BEDTIME 2022-05 00:00: 00 Yes Surendra White TAKE 1 TABLET BY MOUTH EVERY 8 HOURS NEEDED 2022-05 00:00: 00 Yes Surendra White TAKE 1 TABLET BY MOUTH TWICE A DAY 2022-05 00:00: 00 Yes Surendra White TAKE 1 TABLET BY MOUTH TWICE A DAY 2022-05 00:00: 00 Yes Surendra White EZETIMIBE 10MG 2022-05 00:00: 00 Yes Surendra White DULOXETINE 30MG DR 2022-05 00:00: 00 Yes Surendra White FUROSEMIDE 40MG 2022-05 00:00: 00 Yes Surendra White TAKE 1 TABLET BY MOUTH EVERY DAY 2022-05 00:00: 00 Yes Surendra White TAKE 1 TABLET BY MOUTH EVERY DAY 2022-05 00:00: 00 Yes Surendra White LOSARTAN POTASSIUM 25 MG 2022-05 00:00: 00 Yes 25 Surendra White LOSARTAN 25MG 2022-05 0-14 00:00: 00 Yes Surendra White BIOTIN ORAL 2022-05 15:53: 43 Yes 2000mg Take 2,000 mg by mouth daily. [facility] GABAPENTIN ORAL 2022-05 0 15:53: 43 Yes 800mg Take 800 mg by mouth 3 (three) times daily. [facility] metFORMIN (GLUCOPHAGE ) 1,000 mg tablet 2022-05 0 15:53: 43 Yes 1000mg Take 1 tablet by mouth in the morning and 1 tablet in the evening. Take with meals. [facility] potassium chloride (K-DUR) 10 mEq CR tablet 2022-05 15:53: 43 Yes 20meq Take 20 mEq by mouth daily. [facility] tolterodine LA (DETROL LA) 4 mg 24 hr capsule 2022-05 15:53: 43 Yes 4mg Take 4 mg by mouth daily. [facility] ezetimibe (ZETIA) 10 mg tablet 2022-05 15:53: 43 Yes 10mg Take 1 tablet by mouth in the morning. [facility] Fentanyl, Bulk, 100 % Powd 2022-05 15:53: 43 Yes [facility] diazePAM 5 mg tablet 2022-05 15:53: 43 Yes (Schedule IV Drug) TAKE 1 TABLET BY MOUTH EVERY EVENING [facility] Fenofibrate 150 mg capsule 2022-05 15:53: 43 Yes 150mg Take 1 capsule by mouth in the morning. [facility] raloxifene 60 mg tablet 2022-05 15:53: 43 Yes 1 tablet [facility] Insulin Detemir (LEVEMIR FLEXPEN) 100 unit/mL (3 mL) injection 2022-05 15:53: 43 Yes inject under the skin. [facility] Lidocaine (LIDOCARE) 4 % patch 1 Patch 2022-05 18:00: 00 02-17 05:33 :00 No 1{patch } 1 Patch, Topical, Administer over 12 Hours, ONCE, 1 dose, On Thu02/16/23 at 1300, Routine [facility] Sliding Scale Insulin - Lispro (HumaLOG) 2022-05 17:00: 00 Yes Subcutaneo us, TID MEALS+HS, First dose (after last modificati on) on Thu02/16/23 at 1200, Until Discontinu ed, Routine [facility] losartan (COZAAR) tablet 25 mg 2022-05 16:15: 00 Yes 25mg 25 mg, Oral, DAILY, First dose on Thu02/16/23 at 1115, Until Discontinu ed, Routine [facility] BIOTIN ORAL 2022-05 11:39: 35 Yes 2000mg Take 2,000 mg by mouth daily. [facility] GABAPENTIN ORAL 2022-05 11:39: 35 Yes 800mg Take 800 mg by mouth 3 (three) times daily. [facility] metFORMIN (GLUCOPHAGE ) 1,000 mg tablet 2022-05 11:39: 35 Yes 1000mg Take 1 tablet by mouth in the morning and 1 tablet in the evening. Take with meals. [facility] potassium chloride (K-DUR) 10 mEq CR tablet 2022-05 11:39: 35 Yes 20meq Take 20 mEq by mouth daily. [facility] tolterodine LA (DETROL LA) 4 mg 24 hr capsule 2022-05 11:39: 35 Yes 4mg Take 4 mg by mouth daily. [facility] ezetimibe (ZETIA) 10 mg tablet 2022-05 11:39: 35 Yes 10mg Take 1 tablet by mouth in the morning. [facility] Fentanyl, Bulk, 100 % Powd 2022-05 11:39: 35 Yes [facility] diazePAM 5 mg tablet 2022-05 11:39: 35 Yes (Schedule IV Drug) TAKE 1 TABLET BY MOUTH EVERY EVENING [facility] Fenofibrate 150 mg capsule 2022-05 11:39: 35 Yes 150mg Take 1 capsule by mouth in the morning. [facility] raloxifene 60 mg tablet 2022-05 11:39: 35 Yes 1 tablet [facility] Insulin Detemir (LEVEMIR FLEXPEN) 100 unit/mL (3 mL) injection 2022-05 11:39: 35 Yes inject under the skin. [facility] furosemide (LASIX) tablet 40 mg 2022-05 01:00: 00 Yes 40mg 40 mg, Oral, BID, First dose on 02/15/23 at 2000, Until Discontinu ed, Routine [facility] ferrous sulfate 325 mg (65 mg iron) tablet 2022-05 00:00: 00 Yes [id number] 325mg Take 1 tablet by mouth in the morning. [facility] carvediloL 6.25 mg tablet 2022-05 00:00: 00 06-08 00:00 :00 No [id number] 6.25mg Take 1 tablet by mouth in the morning and 1 tablet in the evening. Take with meals. [facility] furosemide 40 mg tablet 2022-05 00:00: 00 06-08 00:00 :00 No [id number] 40mg Take 1 tablet by mouth in the morning and 1 tablet in the evening. [facility] PANTOPRAZOL E 40MG DR 2022-05 00:00: 00 09-29 00:00 :00 No Surendra White Sliding Scale Insulin - Lispro (HumaLOG) 2022-05 05:00: 00 02-16 14:54 :56 No Subcutaneo us, Q6H, First dose (after last modificati on) on 02/15/23 at 0000, Until Discontinu ed, Routine [facility] atorvastati n (LIPITOR) tablet 40 mg 2022-05 02:00: 00 Yes 40mg 40 mg, Oral, QHS, First dose on 02/14/23 at 2100, Until Discontinu ed, Routine [facility] furosemide (LASIX) injection 40 mg 02-14 22:00: 02-14 22:58 :00 No 40mg 40 mg, Slow IV Push, DAILY, 1 dose, First dose (after last modificati on) on 02/14/23 at 1700, Routine [facility] KCL (KLOR-CON M20) tablet 40 mEq 02-13 23:15: 00 02-13 23:04 :00 No 40meq 40 mEq, Oral, ONCE, 1 dose, On 02/13/23 at 1815, Routine [facility] magnesium oxide (MAG-OX 400) tablet 400 mg 02-13 15:00: 00 02-13 17:42 :00 No 400mg 400 mg, Oral, ONCE, 1 dose, On Thu02/13/23 at 1000, Routine [facility] potassium chloride in water (KCL) 20 mEq/100 mL RTU IVPB 20 mEq 02-13 04:30: 00 02-13 09:49 :00 No 20meq 20 mEq, IV Piggyback, Q2H ES, 2 doses, First dose on Thu02/12/23 at 2330, Last dose on Thu02/13/23 at 0130, 100 mL [facility] furosemide (LASIX) injection 40 mg 02-13 01:00: 00 02-13 01:48 :00 No 40mg 40 mg, Slow IV Push, Q12H, 1 dose, First dose (after last modificati on) on Thu02/12/23 at 2000, Routine [facility] INJECT 30 UNITS IN AM AND 25 UNITS IN PM 02-13 00:00: 00 09-29 00:00 :00 No 100 Surendra White insulin glargine (LANTUS U-100) injection 17 Units 02-12 14:00: 00 Yes 17U 17 Units, Subcutaneo us, DAILY, First dose (after last modificati on) on Thu02/12/23 at 0900, Until Discontinu ed, Routine [facility] peg-electro lyte soln (GOLYTELY) 236-22.74-6 .74 -5.86 gram solution 4,000 mL 02-11 23:30: 00 02-12 02:33 :00 No 4000mL 4,000 mL, Oral, ONCE, 1 dose, On Thu02/11/23 at 1830, Routine [facility] insulin lispro (human) (HumaLOG U-100) injection 3 Units 02-11 22:00: 00 Yes 3U 3 Units, Subcutaneo us, TID MEALS, First dose on Thu02/11/23 at 1700, Until Discontinu ed, Routine [facility] KCL (KLOR-CON M20) tablet 40 mEq 02-11 16:15: 00 02-11 15:36 :00 No 40meq 40 mEq, Oral, ONCE, 1 dose, On Thu02/11/23 at 1115, Routine [facility] KCL 20 mEq/15 mL solution 20 mEq 02-11 12:15: 00 02-11 11:32 :00 No 20meq 20 mEq, Oral, ONCE, 1 dose, On Thu02/11/23 at 0715, Routine [facility] magnesium sulfate in water 2 gram/50 mL (4 %) infusion 2 g 02-11 12:15: 00 02-11 12:32 :00 No 2g 2 g, IV Piggyback, Administer over 60 Minutes, ONCE, 1 dose, On Thu02/11/23 at 0715, Routine [facility] potassium chloride in water (KCL) 20 mEq/100 mL RTU IVPB 20 mEq 02-11 11:30: 00 02-11 17:16 :00 No 20meq 20 mEq, IV Piggyback, Q2H, 2 doses, First dose on Thu02/11/23 at 0630, Last dose on Thu02/11/23 at 0800, 100 mL [facility] QUEtiapine (SEROQUEL) tablet 25 mg 02-11 02:00: 00 Yes 25mg 25 mg, Oral, QHS, First dose (after last modificati on) on Thu02/10/23 at 2100, Until Discontinu ed, Routine [facility] Insulin Detemir (LEVEMIR FLEXPEN) 100 unit/mL (3 mL) injection 02-10 14:28: 17 Yes inject under the skin. [facility] insulin glargine (LANTUS U-100) injection 15 Units 02-10 14:00: 00 02-11 18:40 :13 No 15U 15 Units, Subcutaneo us, DAILY, First dose (after last modificati on) on Thu02/10/23 at 0900, Until Discontinu ed, Routine [facility] KCL 20 mEq/15 mL solution 40 mEq 02-10 13:00: 00 02-10 14:02 :00 No 40meq 40 mEq, Oral, ONCE, 1 dose, On Thu02/10/23 at 0800, Routine [facility] pantoprazol e (PROTONIX) EC tablet 40 mg 02-10 01:00: 00 Yes 40mg 40 mg, Oral, BID, First dose on Thu02/09/23 at 2000, Until Discontinu ed, Routine [facility] cefTRIAXone (ROCEPHIN) 1,000 mg in NaCl 0.9% (NS) 100 mL MINI-BAG 02-09 15:00: 00 02-11 13:35 :00 No 1000mg 1,000 mg, IV Piggyback, Q24H ABX, 3 doses, First dose (after last reorder) on Thu02/09/23 at 1000, Last dose on Thu02/11/23 at 1000, Administer over 30 Minutes, 100 mL
Reas on for Anti-Infec tive: Empiric Therapy for Suspected Infection< br>Empiric Therapy Site: Respirator y
Durat ion of therapy: 72 hours [facility] insulin glargine (LANTUS U-100) injection 8 Units 02-09 14:00: 00 02-10 12:42 :12 No 8U 8 Units, Subcutaneo us, DAILY, First dose on Thu02/09/23 at 0900, Until Discontinu ed, Routine [facility] KCL 20 mEq/15 mL solution 40 mEq 02-09 13:45: 00 02-09 14:22 :00 No 40meq 40 mEq, Oral, ONCE, 1 dose, On Thu02/09/23 at 0845, Routine [facility] ipratropium -albuteroL (DUONEB) 0.5 mg-3 mg(2.5 mg base)/3 mL nebulizer solution 3 mL 02-08 16:45: 00 Yes 3mL 3 mL, Inhalation , QIDPRN, Starting on Thu02/08/23 at 1145, Until Discontinu ed, Routine, Wheezing [facility] furosemide (LASIX) injection 40 mg 02-08 13:00: 00 02-12 18:58 :57 No 40mg 40 mg, Slow IV Push, Q12H, First dose (after last modificati on) on Thu02/08/23 at 0800, Until Discontinu ed, Routine [facility] ferrous sulfate tablet 325 mg 02-08 01:00: 00 Yes 325mg 325 mg, Oral, BID, First dose on Thu02/07/23 at 2000, Until Discontinu ed, Routine [facility] QUEtiapine (SEROQUEL) tablet 25 mg 02-08 01:00: 00 02-10 12:21 :47 No 25mg 25 mg, Oral, BID, First dose on Thu02/07/23 at 2000, Until Discontinu ed, Routine [facility] magnesium sulfate in water 4 gram/50 mL (8 %) IV Piggyback 4 g 02-07 06:30: 00 02-07 07:41 :00 No 4g 4 g, IV Piggyback, at 25 mL/hr Administer over 120 Minutes, ONCE, 1 dose, On Thu02/07/23 at 0130, Routine [facility] furosemide (LASIX) injection 40 mg 02-06 23:00: 00 02-07 18:30 :47 No 40mg 40 mg, Slow IV Push, Q6H, First dose on Thu02/06/23 at 1800, Until Discontinu ed, Routine [facility] cefTRIAXone (ROCEPHIN) 1,000 mg in NaCl 0.9% (NS) 100 mL MINI-BAG 02-06 18:30: 00 02-08 20:33 :00 No 1000mg 1,000 mg, IV Piggyback, Q24H ABX, 3 doses, First dose on Thu02/06/23 at 1330, Last dose on Thu02/08/23 at 1330, Administer over 30 Minutes, 100 mL
Reas on for Anti-Infec tive: Empiric Therapy for Suspected Infection< br>Empiric Therapy Site: Respirator y
Durat ion of therapy: 72 hours [facility] dexMEDEtomi dine 400 mcg in 0.9 % NaCl 100 mL (PRECEDEX) RTU IV infusion 02-06 17:34: 20 02-10 16:25 :40 No .2ug/kg /h 0.2-1.5 mcg/kg/hr ?96.1 kg (4.805-36. 0375 mL/hr, rounded to 4.81-36.04 mL/hr), IV Infusion, TITRATE, Sedation-R ASS score (0 to -1), Starting on Thu02/06/23 at 1234
In itiate infusion at 0.2 mcg/kg/hr and titrate by 0.1 mcg/kg/hr every 30 minutes to goal sedation score. Maximum dose = 1.5 mcg/kg/hr. If goal not maintained at maximum allowed dose, contact prescriber .
[facility] furosemide (LASIX) injection 40 mg 02-06 17:15: 00 02-06 17:33 :00 No 40mg 40 mg, Slow IV Push, ONCE, 1 dose, On Thu02/06/23 at 1215, Routine [facility] NaCl 0.9% (NS) injection 10 mL 02-06 16:50: 25 Yes 10mL 10 mL, Slow IV Push, PRN, Starting on Thu02/06/23 at 1150, Until Discontinu ed, Routine, line maintenanc e [facility] lidocaine 1% (PF) (XYLOCAINE) injection 5 mL 02-06 16:50: 25 Yes 5mL 5 mL, Subcutaneo us, PRN, Starting on Thu02/06/23 at 1150, Until Discontinu ed, Routine, Local anesthesia [facility] ipratropium -albuteroL (DUONEB) 0.5 mg-3 mg(2.5 mg base)/3 mL nebulizer solution 3 mL 02-06 13:00: 00 02-08 16:40 :55 No 3mL 3 mL, Inhalation , QID, First dose on Thu02/06/23 at 0800, Until Discontinu ed, Routine [facility] morpHINE (2 mg/mL) injection 1 mg 02-06 12:45: 00 02-06 13:10 :00 No 1mg 1 mg, Slow IV Push, ONCE, 1 dose, On Thu02/06/23 at 0745, Routine [facility] methylPREDN ISolone sod succ (SOLU-MEDRO L (PF)) injection 40 mg 02-06 11:00: 00 02-08 16:41 :45 No 40mg 40 mg, Intravenou s, Q8H, First dose on Thu02/06/23 at 0600, Until Discontinu ed, 1 mL [facility] Insulin Detemir (LEVEMIR FLEXPEN) 100 unit/mL (3 mL) injection 02-06 10:07: 45 Yes [facility] skin[facility] furosemide (LASIX) injection 40 mg 02-06 08:45: 00 02-06 07:56 :00 No 40mg 40 mg, Slow IV Push, ONCE, 1 dose, On Thu02/06/23 at 0345, Routine [facility] methylpredn isolone sod succ (SOLU-MEDRO L) injection 125 mg 02-06 07:30: 00 02-06 06:48 :00 No 125mg 125 mg, Intravenou s, ONCE, 1 dose, On Thu02/06/23 at 0230, 2 mL [facility] ipratropium -albuteroL (DUONEB) 0.5 mg-3 mg(2.5 mg base)/3 mL nebulizer solution 3 mL 02-06 06:20: 20 02-06 06:37 :57 No 3mL 3 mL, Inhalation , QIDPRN, Starting on Thu02/06/23 at 0120, Until Thu02/06/23 at 0137, Routine, Wheezing, Shortness of Breath [facility] LORazepam (ATIVAN) injection 1 mg 02-06 06:15: 00 02-06 05:29 :00 No 1mg 1 mg, Slow IV Push, ONCE, 1 dose, On Thu02/06/23 at 0115, Routine [facility] traZODone (DESYREL) tablet 50 mg 02-06 05:00: 00 02-06 04:05 :00 No 50mg 50 mg, Oral, ONCE, 1 dose, On Thu02/06/23 at 0000, Routine [facility] ARIPiprazol e (ABILIFY) 1 mg/mL oral solution 2 mg 02-06 02:00: 00 02-06 13:35 :14 No 2mg 2 mg, Oral, DAILY, First dose on Thu02/05/23 at 2100, Until Discontinu ed, Routine [facility] zinc oxide-cod liver oil (DESITIN) 40 % paste 02-05 10:41: 49 Yes Topical, PRN, Starting on Thu02/05/23 at 0541, Until Discontinu ed, Routine, Diaper rash [facility] bisacodyL (DULCOLAX) tablet 10 mg 02-04 21:30: 00 02-04 22:22 :00 No 10mg 10 mg, Oral, PRE-PROCED URE ONCE, 1 dose, Starting on Thu02/04/23 at 1630, Until Discontinu ed, Routine, Bowel Prep, Colonoscop y [facility] peg-electro lyte soln (GOLYTELY) 236-22.74-6 .74 -5.86 gram solution 4,000 mL 02-04 20:21: 22 02-11 22:42 :01 No 4000mL 4,000 mL, Oral, PRN - SEE INSTRUCTIO NS, Starting on Thu02/04/23 at 1521, Until Thu02/11/23 at 1742, Routine, Bowel Prep, colonoscop y [facility] bisacodyL (DULCOLAX) tablet 10 mg 02-04 20:21: 02-04 21:01 :00 No 10mg 10 mg, Oral, PRE-PROCED URE ONCE, 1 dose, Starting on Thu02/04/23 at 1521, Until Thu02/04/23 at 1601, Routine, Bowel Prep, Colonoscop y [facility] phytonadion e (VITAMIN K) 10 mg in NaCl 0.9% (NS) piggyback 02-04 18:00: 00 02-04 18:28 :00 No 10mg IV Piggyback, ONCE, 1 dose, On Thu02/04/23 at 1300, 50 mL [facility] clopidogreL (PLAVIX) 75 mg tablet 75 mg 02-04 16:45: 00 Yes 75mg 75 mg, Oral, DAILY, First dose on Thu02/04/23 at 1145, Until Discontinu ed, SYED [facility] fluticasone propionate 50 mcg/actuati on nasal spray 1 Riggins 02-04 15:48: 00 Yes 1{spray } 1 Riggins, Nasal, DAILY, First dose on Thu02/04/23 at 1100, Until Discontinu ed, Routine [facility] dexMEDEtomi dine 400 mcg in 0.9 % NaCl 100 mL (PRECEDEX) RTU IV infusion 02-04 02:51: 44 02-04 18:05 :19 No .2ug/kg /h 0.2-1.5 mcg/kg/hr ?96.6 kg (4.83-36.2 25 mL/hr, rounded to 4.83-36.23 mL/hr), IV Infusion, TITRATE, Sedation-R ASS score (0 to -1), Starting on Thu02/03/23 at 2151
In itiate infusion at 0.2 mcg/kg/hr and titrate by 0.1 mcg/kg/hr every 30 minutes to goal sedation score. Maximum dose = 1.5 mcg/kg/hr. If goal not maintained at maximum allowed dose, contact prescriber .
[facility] furosemide (LASIX) injection 40 mg 02-04 02:45: 00 02-04 02:07 :00 No 40mg 40 mg, Slow IV Push, ONCE, 1 dose, On Thu02/03/23 at 2145, Routine [facility] atorvastati n (LIPITOR) tablet 40 mg 02-04 02:00: 00 02-06 13:35 :14 No 40mg 40 mg, Oral, QHS, First dose on Thu02/03/23 at 2100, Until Discontinu ed, Routine [facility] octreotide (SANDOSTATI N) 500 mcg in NaCl 0.9% (NS) 100 mL infusion 02-03 21:45: 00 02-06 21:19 :50 No 50ug/h 50 mcg/hr (10 mL/hr), IV Infusion, CONTINUOUS , Starting on Thu02/03/23 at 1645 [facility] phytonadion e (VITAMIN K) 10 mg in NaCl 0.9% (NS) piggyback 02-03 21:30: 00 02-03 21:50 :00 No 10mg IV Piggyback, ONCE, 1 dose, On Thu02/03/23 at 1630, 50 mL [facility] cefTRIAXone (ROCEPHIN) 1,000 mg in NaCl 0.9% (NS) 100 mL MINI-BAG 02-03 19:00: 00 02-05 18:54 :00 No 1000mg 1,000 mg, IV Piggyback, Q24H ABX, 3 doses, First dose on Thu02/03/23 at 1400, Last dose on Thu02/05/23 at 1400, Administer over 30 Minutes, 100 mL
Reas on for Anti-Infec tive: Empiric Therapy for Suspected Infection< br>Empiric Therapy Site: Urine
D uration of therapy: 72 hours [facility] fluconazole (DIFLUCAN) tablet 50 mg 02-03 18:00: 00 02-03 19:03 :00 No 50mg 50 mg, Oral, ONCE, 1 dose, On Thu02/03/23 at 1300, SYED
Re ason for Anti-Infec tive: Empiric Therapy for Suspected Infection< br>Empiric Therapy Site: Skin / Soft tissue
Duration of therapy: 72 hours [facility] carvediloL (COREG) tablet 6.25 mg 02-03 16:45: 00 Yes 6.25mg 6.25 mg, Oral, BID MEALS, First dose on Thu02/03/23 at 1145, Until Discontinu ed, Routine [facility] fenofibrate micronized (LOFIBRA) capsule 134 mg 02-03 14:00: 00 Yes 134mg 134 mg, Oral, DAILY, First dose on Thu02/03/23 at 0900, Until Discontinu ed [facility] ezetimibe (ZETIA) tablet 10 mg 02-03 14:00: 00 Yes 10mg 10 mg, Oral, DAILY, First dose on Thu02/03/23 at 0900, Until Discontinu ed, Routine [facility] nystatin (NYSTOP) powder 02-03 13:00: 00 Yes Topical, TID, First dose on Thu02/03/23 at 0800, Until Discontinu ed, Routine [facility] pramipexole (MIRAPEX) tablet 0.125 mg 02-03 13:00: 00 Yes .125mg 0.125 mg, Oral, BID, First dose on Thu02/03/23 at 0800, Until Discontinu ed [facility] pantoprazol e (PROTONIX) injection 40 mg 02-03 13:00: 00 02-09 16:01 :29 No 40mg 40 mg, Slow IV Push, Q12H, First dose on Thu02/03/23 at 0800, Until Discontinu ed [facility] lactated ringers IV infusion 1,000 mL 02-03 08:30: 00 02-03 21:36 :21 No 1000mL at 75 mL/hr, 1,000 mL, IV Infusion, CONTINUOUS , Starting on Thu02/03/23 at 0330, Until Thu02/03/23 at 1636, Routine [facility] Sliding Scale Insulin - Lispro (HumaLOG) 02-03 05:00: 00 02-15 00:55 :31 No Subcutaneo us, Q4H, First dose on Thu02/03/23 at 0000, Until Discontinu ed, Routine [facility] ondansetron (ZOFRAN (PF)) injection 4 mg 02-03 03:44: 25 Yes 4mg 4 mg, Slow IV Push, Q6HPRN, Starting on Thu02/02/23 at 2244, Until Discontinu ed, Routine, Nausea and Vomiting (N/V) [facility] acetaminoph en (TYLENOL) tablet 650 mg 02-03 03:44: 17 Yes 650mg 650 mg, Oral, Q6HPRN, Starting on Thu02/02/23 at 2244, Until Discontinu ed, Routine, Pain (scale 1-3) [facility] traMADoL (ULTRAM) tablet 50 mg 02-03 03:42: 45 02-03 18:03 :31 No 50mg 50 mg, Oral, Q4HPRN, Starting on Thu02/02/23 at 2242, Until Tu02/03/23 at 1303, Routine, Pain (scale 4-6) [facility] furosemide (LASIX) injection 40 mg 02-03 01:45: 00 02-03 01:43 :00 No 40mg 40 mg, IV Push, ONCE, 1 dose, On Thu02/02/23 at 2045, SYED [facility] BIOTIN ORAL 02-02 22:45: 02 Yes 2000mg Take 2,000 mg by mouth daily. [facility] GABAPENTIN ORAL 02-02 22:45: 02 Yes 800mg Take 800 mg by mouth 3 (three) times daily. [facility] metFORMIN (GLUCOPHAGE ) 1,000 mg tablet 02-02 22:45: 02 Yes 1000mg Take 1 tablet by mouth in the morning and 1 tablet in the evening. Take with meals. [facility] potassium chloride (K-DUR) 10 mEq CR tablet 02-02 22:45: 02 Yes 20meq Take 20 mEq by mouth daily. [facility] tolterodine LA (DETROL LA) 4 mg 24 hr capsule 02-02 22:45: 02 Yes 4mg Take 4 mg by mouth daily. [facility] ezetimibe (ZETIA) 10 mg tablet 02-02 22:45: 02 Yes 10mg Take 1 tablet by mouth in the morning. [facility] Fentanyl, Bulk, 100 % Powd 02-02 22:45: 02 Yes [facility] diazePAM 5 mg tablet 02-02 22:45: 02 Yes (Schedule IV Drug) TAKE 1 TABLET BY MOUTH EVERY EVENING [facility] Fenofibrate 150 mg capsule 02-02 22:45: 02 Yes 150mg Take 1 capsule by mouth in the morning. [facility] raloxifene 60 mg tablet 02-02 22:45: 02 Yes 1 tablet [facility] NORepinephr ine 4 mg in 0.9% NaCl 250 mL infusion RTU 02-02 21:01: 14 02-03 15:57 :06 No .05ug/k g/min 0.05-0.5 mcg/kg/min ?81.6 kg (15.3-153 mL/hr), IV Infusion, TITRATE, MAP Goal > or = [...] intravenou s vasopresso r at a time.
[facility] NaCl 0.9% (NS) bolus infusion 1,000 mL 02-02 21:00: 00 02-02 21:30 :00 No 1000mL at 999 mL/hr, 1,000 mL, IV Infusion, ONCE, 1 dose, On Thu02/02/23 at 1600, STAT [facility] LOSARTAN 25MG 02-02 00:00: 00 Yes Surendra F Christopher LEVEMIR FLEX 100U/ML PEN 8 00:00: 00 Yes Surendraaudrey White ELIQUIS 5MG 01-09 00:00: 00 Yes Surendra White takes one tablet by mouth every morning. 01-01 00:00: 00 Yes 25 Surendra White CLOPIDOGREL 75MG 01-01 00:00: 00 Yes Surendra White TAKE 1 TABLET TWICE DAILY. 12-19 00:00: 00 09-29 00:00 :00 No 40 Surendra White TAKE 1 TABLET DAILY DIRECTED. 12-19 00:00: 00 09-29 00:00 :00 No 81 Surendra White TAKE 1 TABLET AT BEDTIME. 12-19 00:00: 00 09-29 00:00 :00 No 40 Surendra White HALF TABLET Q AM 12-19 00:00: 00 09-29 00:00 :00 No 25 Surendra White TAKE 1 CAPSULE TWICE DAILY. 12-19 00:00: 00 09-29 00:00 :00 No 30 Surendra White TAKE 1 TABLET DAILY. 12-19 00:00: 00 09-29 00:00 :00 No 75 Surendra White TAKE 1 TABLET BY MOUTH EVERY DAY 12-19 00:00: 00 09-29 00:00 :00 No 10 Surendra White TAKE 1 TABLET 3 TIMES DAILY. 12-19 00:00: 00 09-29 00:00 :00 No 800 Surendra White TAKE 0.5 TABLET AT BEDTIME 12-19 00:00: 00 09-29 00:00 :00 No 5 Surendra White TAKE 1 TABLET BY MOUTH DAILY 12-18 00:00: 00 Yes Surendra White GABAPENTIN 800 MG 12-18 00:00: 00 Yes 800 Surendra White FUROSEMIDE 40 MG 12-18 00:00: 00 Yes 40 Surendra White [address] HCL [address] 30 MG 12-18 00:00: 00 Yes 30 Surendra White ATORVASTATI N 40 MG 12-18 00:00: 00 Yes 40 Surendra White SPIRONOLACT ONE 25 MG 12-18 00:00: 00 09-29 00:00 :00 No 25 Surendra White INJECT 30 UNITS IN AM AND 25 UNITS IN PM 12-16 00:00: 00 09-29 00:00 :00 No 100 Surendra White LANTUS 100U/ML VIA 12-01 00:00: 00 09-29 00:00 :00 No Surendra White CARVEDILOL 12.5MG 11-19 00:00: 00 Yes Surendra White FLUOCIN BODY 0.01% OIL 11-17 00:00: 00 Yes Surendra White FENOFIBRATE 134MG 11-15 00:00: 00 09-29 00:00 :00 No Surendra White polyethylen e glycol 3350 powder 17 g 11-07 18:30: 00 11-07 18:03 :00 No 17g 17 g, Oral, ONCE, 1 dose, On Thu11/07/22 at 1330, Routine [facility] BIOTIN ORAL 11-07 14:35: 02 Yes 2000mg Take 2,000 mg by mouth daily. [facility] GABAPENTIN ORAL 11-07 14:35: 02 Yes 800mg Take 800 mg by mouth 3 (three) times daily. [facility] metFORMIN (GLUCOPHAGE ) 1,000 mg tablet 11-07 14:35: 02 Yes 1000mg Take 1 tablet by mouth in the morning and 1 tablet in the evening. Take with meals. [facility] potassium chloride (K-DUR) 10 mEq CR tablet 11-07 14:35: 02 Yes 20meq Take 20 mEq by mouth daily. [facility] tolterodine LA (DETROL LA) 4 mg 24 hr capsule 11-07 14:35: 02 Yes 4mg Take 4 mg by mouth daily. [facility] ezetimibe (ZETIA) 10 mg tablet 11-07 14:35: 02 Yes 10mg Take 1 tablet by mouth in the morning. [facility] Fentanyl, Bulk, 100 % Powd 11-07 14:35: 02 Yes [facility] diazePAM 5 mg tablet 11-07 14:35: 02 Yes (Schedule IV Drug) TAKE 1 TABLET BY MOUTH EVERY EVENING [facility] Fenofibrate 150 mg capsule 11-07 14:35: 02 Yes 1{capsu le} Take 1 capsule by mouth in the morning. [facility] [facility] raloxifene 60 mg tablet 11-07 14:35: 02 Yes 1 tablet [facility] carvediloL (COREG) tablet 12.5 mg 11-05 22:00: 00 Yes 12.5mg 12.5 mg, Oral, BID MEALS, First dose (after last modificati on) on Thu11/05/22 at 1700, Until Discontinu ed, Routine [facility] ARIPiprazol e (ABILIFY) tablet 2.5 mg 11-05 02:00: 00 Yes 2.5mg 2.5 mg, Oral, QHS, First dose on Thu11/04/22 at 2100, Until Discontinu ed, Routine [facility] amoxicillin -clavulanat e (AUGMENTIN) 875-125 mg per tablet 1 tablet 11-05 01:00: 00 11-15 00:59 :00 No 1{tbl} 1 tablet, Oral, Q12H, 20 doses, First dose on Thu11/04/22 at 2000, Last dose on Thu11/14/22 at 0800, Routine
Reason for Anti-Infec tive: Documented Infection< br>Documen mars Infection Site: Urine
D uration of Therapy: Other (see Comments) [facility] carvediloL 12.5 mg tablet 11-05 00:00: 00 02-16 00:00 :00 No [id number] 12.5mg Take 1 tablet by mouth in the morning and 1 tablet in the evening. Take with meals. [facility] insulin glargine 100 unit/mL injection 11-04 00:00: 00 Yes [id number] 20U inject 20 Units under the skin every 12 (twelve) hours. [facility] clopidogreL 75 mg tablet 11-04 00:00: 00 05-02 00:00 :00 No [id number] 75mg Take 1 tablet by mouth in the morning. [facility] TAKE 1 TABLET BY MOUTH EVERY 12 HOURS 11-04 00:00: 00 09-29 00:00 :00 Alix White LANTUS 100U/ML VIA 11-04 00:00: 00 09-29 00:00 :00 Alix White HYDROCO/APA P 5-325MG 11-04 00:00: 00 09-29 00:00 :00 Alix White amoxicillin -clavulanat e 875-125 mg per tablet 11-04 00:00: 00 02-16 00:00 :00 No [id number] 1{tbl} Take 1 tablet by mouth every 12 (twelve) hours. [facility] insulin glargine (LANTUS U-100) injection 20 Units 11-02 01:00: 00 Yes 20U 20 Units, Subcutaneo us, Q12H, First dose (after last modificati on) on [facility] 11/01/22 at 1999, Until Discontinu ed, Routine [facility] apixaban (ELIQUIS) tablet 5 mg 11-02 01:00: 00 Yes 5mg 5 mg, Oral, BID, First dose on 11/01/22 at 1999, Until Discontinu ed, Routine
Indicatio ns: Non-Valvul ar Atrial Fibrillati on [facility] HYDROcodone -acetaminop hen (NORCO 5) 5-325 mg tablet 1 tablet 11-01 07:09: 27 Yes [id number] 1{tbl} 1 tablet, Oral, Q6HPRN, Starting on 11/01/22 at 0209, Until Discontinu ed, Routine, Pain (scale 7-10) [facility] insulin glargine 100 unit/mL injection 11-01 06:: 11-01 00:00 :00 No 15U inject 15 Units under the skin every 12 (twelve) hours. [facility] insulin glargine 100 unit/mL injection 11-01:: 11-01 00:00 :00 No 25U inject 25 Units under the skin every evening. [facility] DULoxetine 60 mg capsule 11-01 06:: 11-01 00:00 :00 No 1{capsu le} Take 1 capsule by mouth in the morning. [facility] losartan 50 mg tablet 11-01:: 11-01 00:00 :00 No 1{tbl} Take 1 tablet by mouth in the morning. [facility] atorvastati n (LIPITOR) tablet 40 mg 11-01 02:00: 00 Yes 40mg 40 mg, Oral, QHS, First dose on Thu10/31/22 at 2100, Until Discontinu ed, Routine [facility] spironolact one 25 mg tablet 11-01 00:00: 00 Yes [id number] 12.5mg Take 0.5 tablets by mouth in the morning. [facility] LANTUS 100 UNIT/ML VIAL 11-01 00:00: 00 Yes 100 Surendra F Christopher insulin glargine 100 unit/mL injection 11-01 00:00: 00 06-08 00:00 :00 No [id number] 15U inject 15 Units under the skin every 12 (twelve) hours. [facility] atorvastati n 40 mg tablet 11-01 00:00: 00 10-25 00:00 :00 No [id number] 40mg Take 1 tablet by mouth at bedtime. [facility] losartan 25 mg tablet 11-01 00:00: 00 10-25 00:00 :00 No [id number] 25mg Take 1 tablet by mouth in the morning. [facility] ELIQUIS 5MG 11-01 00:00: 00 09-29 00:00 :00 Alix White CARVEDILOL 25MG 11-01 00:00: 00 09-29 00:00 :00 Alix White LOSARTAN 25MG 11-01 00:00: 00 09-29 00:00 :00 Alix White ATORVASTATI N 40MG 11-01 00:00: 00 09-29 00:00 :00 Alix White TAKE 1 TABLET BY MOUTH EVERY 6 HOURS NEEDED FOR ACUTE PAIN (SCALE 7-10) FOR UP TO 7 DAYS 11-01 00:00: 00 09-29 00:00 :00 Alix White TAKE 1 TABLET BY MOUTH EVERY DAY IN THE MORNING 11-01 00:00: 00 09-29 00:00 :00 Alix White TAKE 3 TABLETS BY MOUTH EVERY MORNING AND EVENING. 11-01 00:00: 00 09-29 00:00 :00 Alix White TAKE 1 TABLET BY MOUTH EVERY DAY IN THE MORNING 11-01 00:00: 00 09-29 00:00 :00 Alix White apixaban 5 mg tablet 11-01 00:00: 00 02-16 00:00 :00 No [id number] 5mg Take 1 tablet by mouth in the morning and 1 tablet in the evening. Indication s: atrial fibrillati on [facility] aspirin 81 mg chewable tablet 11-01 00:00: 00 02-16 00:00 :00 No [id number] 81mg Take 1 tablet by mouth in the morning. [facility] furosemide 20 mg tablet 11-01 00:00: 00 02-16 00:00 :00 No [id number] 60mg Take 3 tablets by mouth every morning and evening. [facility] HYDROcodone -acetaminop hen 5-325 mg tablet 11-01 00:00: 00 11-09 04:59 :00 No [id number] 1{tbl} Take 1 tablet by mouth every 6 (six) hours as needed for Pain (scale 7-10) for up to 7 days. Indication s: acute pain [facility] carvediloL 25 mg tablet 11-01 00:00: 00 11-05 00:00 :00 No [id number] 25mg Take 1 tablet by mouth in the morning and 1 tablet in the evening. Take with meals. [facility] clopidogreL 75 mg tablet 11-01 00:00: 00 11-04 00:00 :00 No [id number] 75mg Take 1 tablet by mouth in the morning. [facility] HYDROcodone -acetaminop hen (NORCO 5) 5-325 mg tablet 1 tablet 10-31 20:00: 00 10-31 19:00 :00 No [id number] 1{tbl} 1 tablet, Oral, ONCE, 1 dose, On Thu10/31/22 at 1500, Routine [facility] iopamidol (ISOVUE 370-500 mL) injection 10-31 16:47: 17 10-31 16:56 :57 No ONCE INTRA PROCEDURE, Starting on Thu10/31/22 at 1147, Until Thu10/31/22 at 1156, Routine, CV Intraproce dure [facility] nitroglycer in (TRIDIL) 2 mg in 10 mL D5W for Cardiac Cath 10-31 16:26: 26 10-31 16:56 :57 No ONCE INTRA PROCEDURE, Starting on Thu10/31/22 at 1126, Until Thu10/31/22 at 1156, Routine, CV Intraproce dure [facility] adenosine 6 mg/1000 mL INTRACORONA RY injection for ASPHALT DAUBER 10-31 16:26: 10 10-31 16:56 :57 No ONCE INTRA PROCEDURE, Starting on Thu10/31/22 at 1126, Until Thu10/31/22 at 1156, Routine, CV Intraproce dure [facility] NaCl 0.9% (NS) bolus infusion 10-31 14:55: 44 10-31 14:55 :44 No CONTINUOUS PRN, Starting on Thu10/31/22 at 0955, Until Thu10/31/22 at 0955, STAT, CV Intraproce dure [facility] lidocaine 1% (PF) (XYLOCAINE) injection 10-31 14:28: 19 10-31 16:56 :57 No ONCE INTRA PROCEDURE, Starting on Thu10/31/22 at 0928, Until Thu10/31/22 at 1156, Routine, CV Intraproce dure [facility] clopidogreL (PLAVIX) 300 mg tablet 300 mg 10-30 17:45: 00 10-30 17:06 :00 No [id number] 300mg 300 mg, Oral, ONCE, 1 dose, On Mendy 10/30/22 at 1245, Routine [facility] furosemide (LASIX) tablet 60 mg 10-29 22:00: 00 Yes 60mg 60 mg, Oral, QAM+PM, First dose on Thu10/29/22 at 1700, Until Discontinu ed, Routine [facility] carvediloL (COREG) tablet 25 mg 10-29 22:00: 00 11-05 18:57 :53 No 25mg 25 mg, Oral, BID MEALS, First dose (after last modificati on) on Thu10/29/22 at 1700, Until Discontinu ed, Routine [facility] sulfur hexafluorid e microsphr (LUMASON) injection 5 mL 10-29 15:30: 00 10-29 15:30 :00 No [id number] 5mL 5 mL, Intravenou s, ONCE, 1 dose, On Thu10/29/22 at 1030, Routine
biology faculty member approving Restricted medication : ABDIFATAH MURRAY [facility] aspirin chewable tablet 81 mg 10-29 14:00: 00 Yes [id number] 81mg 81 mg, Oral, DAILY, First dose on Thu10/29/22 at 0900, Until Discontinu ed, Routine [facility] magnesium sulfate in water 2 gram/50 mL (4 %) infusion 2 g 10-29 11:00: 00 10-29 11:20 :00 No 2g 2 g, IV Piggyback, Administer over 60 Minutes, ONCE, 1 dose, On Thu10/29/22 at 0600, SYED [facility] iopamidol (ISOVUE 370-500 mL) injection 10-28 17:33: 18 10-28 17:36 :11 No ONCE INTRA PROCEDURE, Starting on Thu10/28/22 at 1233, Until Thu10/28/22 at 1236, Routine, CV Intraproce dure [facility] heparin 1,000 unit/mL injection 10-28 17:13: 56 10-28 17:36 :11 No ONCE INTRA PROCEDURE, Starting on Thu10/28/22 at 1213, Until Thu10/28/22 at 1236, Routine, CV Intraproce dure [facility] nitroglycer in (TRIDIL) 2 mg in 10 mL D5W for Cardiac Cath 10-28 17:13: 10 10-28 17:36 :11 No ONCE INTRA PROCEDURE, Starting on Thu10/28/22 at 1213, Until Thu10/28/22 at 1236, Routine, CV Intraproce dure [facility] lidocaine 1% (PF) (XYLOCAINE) injection 10-28 16:51: 29 10-28 17:36 :11 No ONCE INTRA PROCEDURE, Starting on Thu10/28/22 at 1151, Until Thu10/28/22 at 1236, Routine, CV Intraproce dure [facility] midazolam (VERSED) injection 10-28 16:48: 00 10-28 17:36 :11 No ONCE INTRA PROCEDURE, Starting on Thu10/28/22 at 1148, Until Thu10/28/22 at 1236, Routine, CV Intraproce dure [facility] FENTanyl PF (SUBLIMAZE (PF)) injection 10-28 16:48: 00 10-28 17:36 :11 No ONCE INTRA PROCEDURE, Starting on Thu10/28/22 at 1148, Until Thu10/28/22 at 1236, Routine, CV Intraproce dure [facility] magnesium sulfate in water 2 gram/50 mL (4 %) infusion 2 g 10-28 15:45: 00 10-28 15:55 :00 No 2g 2 g, IV Piggyback, Administer over 60 Minutes, ONCE, 1 dose, On Thu10/28/22 at 1045, Routine [facility] aspirin tablet 325 mg 10-28 14:45: 00 10-28 14:26 :00 No [id number] 325mg 325 mg, Oral, ONCE, 1 dose, On Thu10/28/22 at 0945, Routine [facility] docusate (COLACE) capsule 100 mg 10-28 14:00: 00 Yes 100mg 100 mg, Oral, DAILY, First dose on Thu10/28/22 at 0900, Until Discontinu ed, Routine [facility] acetaminoph en (TYLENOL) tablet 650 mg 10-27 22:13: 38 Yes 650mg 650 mg, Oral, Q6HPRN, Starting on Thu10/27/22 at 1713, Until Discontinu ed, Routine, Pain (scale 1-3), Pain (scale 4-6) [facility] carvediloL (COREG) tablet 12.5 mg 10-27 22:00: 00 10-29 18:18 :44 No 12.5mg 12.5 mg, Oral, BID MEALS, First dose (after last modificati on) on Thu10/27/22 at 1700, Until Discontinu ed, Routine [facility] hydralAZINE (APRESOLINE ) injection 10 mg 10-27 21:45: 59 Yes 10mg 10 mg, Slow IV Push, Q6HPRN, Starting on Thu10/27/22 at 1645, Until Discontinu ed, STAT, SBP >150 [facility] D10W 10 % IV infusion 10-27 18:00: 48 Yes at 20-40 mL/hr, IV Infusion, TITRATE, Starting on Thu10/27/22 at 1300, Until Discontinu ed, Routine [facility] heparin 25,000 Units/250 mL (Premixed Bag) in 0.45 % NS 10-27 17:02: 19 10-31 20:21 :55 No 0U/h 0-2,350 Units/hr (0-23.5 mL/hr), IV Infusion, TITRATE, Parameters in Admin. Instr., Starting on Thu10/27/22 [...] INITIAL INFUSION RATE.&nbsp ; _ &nb sp;FOR [facility], [facility], AND [facility] ONLY &nbs p; - aPTT < 35: & nbsp;Bolus 5000 units, increase rate 300 units/hr&n bsp; - aPTT 35-44:&nbs p; Darshan martina 3000 units, increase rate 200 units/hr&n bsp; - aPTT 45-54:&nbs p; In crease rate 100 units/hr&n bsp; - aPTT 55-85:&nbs p; NO CHANGE&nbs p; - aPTT 86-95:&nbs p; De [...] rate 200 units/hr&n bsp; - aPTT 50-59:&nbs p;&nbs p;Increase rate 100 units/hr&n bsp; - aPTT 60-85:&nbs p; NO CHANGE&nbs p; - aPTT 86-95:&nbs p; De crease rate 100 units/hr&n bsp; - aPTT 96-120:&nb sp; H old 30 minutes, decrease rate 150 units/hr&n bsp; - aPTT > 120: Hold 60 minutes, decrease rate 200 units/hr&n bsp; Check aPTT 6 hours after initiation , then Q6H after every change, aPTT Q12H once therapeuti c levels are reached.<b r> [facility] heparin (1,000 unit/mL, 10 mL vial) 10-27 17:00: 55 10-31 20:21 :55 No 3000U FOR REBOLUSING , Starting on Thu10/27/22 at 1200, Until Thu10/31/22 at 1521, Routine
Dosing based on aPTT testing parameters (refer to continuous heparin drip order)
[facility] nitroglycer in 50 mg in D5W 250 mL infusion RTU 10-27 16:53: 01 Yes 5ug/min 5-200 mcg/min (1.5-60 mL/hr), IV Infusion, TITRATE, SBP>140 or DBP>100, Starting on Thu10/27/22 [...] minutes x 2 with each dose increase.& nbsp;&nbsp ;NHO if: SBP<90 mmHg, HR<50 or >130 bpm or during weaning, if SBP>150 or DBP>100 mmHg.&nbsp ; Blanco Hoyt ns: & nbsp;a. If dose >40 mcg/min, wean in decrements of 10 mcg/min every 30 minutes.&n bsp; b. If dose <40 mcg/min, wean in decrements of 5 mcg/min every 30 minutes. c. Or as directed by the Heart Failure Faculty.<b r> [facility] KCL (KLOR-CON M20) tablet 40 mEq 10-27 15:45: 00 10-27 15:51 :00 No 40meq 40 mEq, Oral, ONCE, 1 dose, On Thu10/27/22 at 1045, Routine [facility] magnesium sulfate in water 2 gram/50 mL (4 %) infusion 2 g 10-27 15:30: 00 10-27 16:51 :00 No 2g 2 g, IV Piggyback, Administer over 60 Minutes, ONCE, 1 dose, On Thu10/27/22 at 1030, Routine [facility] pantoprazol e (PROTONIX) EC tablet 40 mg 10-27 14:00: 00 Yes 40mg 40 mg, Oral, DAILY, First dose on Thu10/27/22 at 0900, Until Discontinu ed, Routine [facility] fenofibrate micronized (LOFIBRA) capsule 134 mg 10-27 14:00: 00 Yes 134mg 134 mg, Oral, DAILY, First dose on Thu10/27/22 at 0900, Until Discontinu ed [facility] ezetimibe (ZETIA) tablet 10 mg 10-27 14:00: 00 Yes 10mg 10 mg, Oral, DAILY, First dose on Thu10/27/22 at 0900, Until Discontinu ed, Routine [facility] DULoxetine (CYMBALTA) capsule 60 mg 10-27 14:00: 00 Yes 60mg 60 mg, Oral, DAILY, First dose on Thu10/27/22 at 0900, Until Discontinu ed, Routine [facility] clopidogreL (PLAVIX) 75 mg tablet 75 mg 10-27 14:00: 00 Yes 75mg 75 mg, Oral, DAILY, First dose on Thu10/27/22 at 0900, Until Discontinu ed, Routine [facility] clonazePAM (KLONOPIN) tablet 1 mg 10-27 02:00: 00 Yes 1mg 1 mg, Oral, QHS, First dose on Thu10/26/22 at 2100, Until Discontinu ed, Routine [facility] clonazePAM (KLONOPIN) tablet 1 mg 10-27 02:00: 00 Yes 1mg 1 mg, Oral, QHS, First dose on Thu10/26/22 at 2100, Until Discontinu ed, Routine [facility] losartan (COZAAR) tablet 25 mg 10-27 01:00: 00 Yes 25mg 25 mg, Oral, DAILY, First dose (after last modificati on) on Thu10/26/22 at 2000, Until Discontinu ed, Routine [facility] furosemide (LASIX) injection 40 mg 10-27 01:00: 00 10-29 19:33 :44 No 40mg 40 mg, Slow IV Push, Q12H, First dose on Thu10/26/22 at 2000, Until Discontinu ed, Routine [facility] magnesium sulfate in water 2 gram/50 mL (4 %) infusion 2 g 10-27 00:00: 00 10-27 00:31 :00 No 2g 2 g, IV Piggyback, Administer over 60 Minutes, ONCE, 1 dose, On Thu10/26/22 at 1900, Routine [facility] spironolact one (ALDACTONE) tablet 12.5 mg 10-26 22:00: 00 Yes 12.5mg 12.5 mg, Oral, DAILY, First dose on Thu10/26/22 at 1700, Until Discontinu ed, Routine [facility] enoxaparin (LOVENOX) injection 40 mg 10-26 22:00: 00 10-27 17:02 :38 No 40mg 40 mg, Subcutaneo us, DAILY, First dose on Thu10/26/22 at 1700, Until Discontinu ed, Routine [facility] carvediloL (COREG) tablet 6.25 mg 10-26 22:00: 00 10-27 21:45 :36 No 6.25mg 6.25 mg, Oral, BID MEALS, First dose on Thu10/26/22 at 1700, Until Discontinu ed, Routine [facility] gabapentin (NEURONTIN) capsule 800 mg 10-26 19:00: 00 Yes 800mg 800 mg, Oral, TID, First dose on Thu10/26/22 at 1400, Until Discontinu ed [facility] acetaminoph en (TYLENOL) tablet 650 mg 10-26 18:57: 52 10-28 13:59 :36 No 650mg 650 mg, Oral, Q6HPRN, Starting on Thu10/26/22 at 1357, Until Thu10/28/22 at 0859, Routine, Pain (scale 1-3), Pain (scale 4-6) [facility] Sliding Scale Insulin - Lispro (HumaLOG) 10-26 14:30: 00 Yes Subcutaneo us, TID MEALS+HS, First dose on Thu10/26/22 at 0930, Until Discontinu ed, Routine [facility] insulin glargine (LANTUS U-100) injection 15 Units 10-26 14:30: 00 11-01 21:28 :10 No 15U 15 Units, Subcutaneo us, Q12H, First dose (after last modificati on) on Thu10/26/22 at 0930, Until Discontinu ed, Routine [facility] GABAPENTIN ORAL 10-26 09:09: 56 Yes 800mg Take 800 mg by mouth 3 (three) times daily. [facility] ezetimibe (ZETIA) 10 mg tablet 10-26 09:09: 56 Yes 10mg Take 10 mg by mouth daily. [facility] insulin glargine 100 unit/mL injection 10-26 09:09: 56 Yes 15U inject 15 Units under the skin every 12 (twelve) hours. [facility] DULoxetine 60 mg capsule 10-26 09:09: 56 Yes 1{capsu le} Take 1 capsule by mouth in the morning. [facility] Fenofibrate 150 mg capsule 10-26 09:09: 56 Yes 1{capsu le} Take 1 capsule by mouth in the morning. [facility] losartan 50 mg tablet 10-26 09:09: 56 Yes 1{tbl} Take 1 tablet by mouth in the morning. [facility] BIOTIN ORAL 10-26 09:09: 55 Yes 2000mg Take 2,000 mg by mouth daily. [facility] metFORMIN (GLUCOPHAGE ) 1,000 mg tablet 10-26 09:09: 55 Yes 1000mg Take 1,000 mg by mouth 2 (two) times daily with meals. [facility] potassium chloride (K-DUR) 10 mEq CR tablet 10-26 09:09: 55 Yes 20meq Take 20 mEq by mouth daily. [facility] tolterodine LA (DETROL LA) 4 mg 24 hr capsule 10-26 09:09: 55 Yes 4mg Take 4 mg by mouth daily. [facility] Fentanyl, Bulk, 100 % Powd 10-26 09:09: 55 Yes [facility] insulin glargine 100 unit/mL injection 10-26 09:09: 55 Yes 25U inject 25 Units under the skin every evening. [facility] diazePAM 5 mg tablet 10-26 09:09: 55 Yes (Schedule IV Drug) TAKE 1 TABLET BY MOUTH EVERY EVENING [facility] raloxifene 60 mg tablet 10-26 09:09: 55 Yes 1 tablet [facility] furosemide (LASIX) injection 40 mg 10-26 08:15: 00 10-26 08:05 :00 No 40mg 40 mg, IV Push, ONCE, 1 dose, On 10/26/22 at 0315, SYED [facility] METFORMIN HCL 1,000 MG 10-15 00:00: 00 Yes 1000 Surendra White TAKE 1 TABLET BY MOUTH EVERY DAY 10-15 00:00: 00 09-29 00:00 :00 No 10 Surendra White TAKE 1 TABLET TWICE A DAY 10-15 00:00: 00 09-29 00:00 :00 No 125 Surendra White TAKE 1 TABLET EVERY 12 HOURS DAILY. 10-15 00:00: 00 09-29 00:00 :00 No 500 Surendra White INJECT 30 UNITS IN AM AND 25 UNITS IN PM 10-15 00:00: 00 09-29 00:00 :00 No 100 Surendra White APPLY SMALL AMOUNT TOPICALLY TO AFFECTED AREA OF SCALP, TRUNK, ARMS EVERY DAY NEEDED FOR ITCH 10-15 00:00: 00 09-29 00:00 :00 Alix White TAKE 1 CAPSULE BY MOUTH ONCE DAILY 10-15 00:00: 00 09-29 00:00 :00 Alix White TAKE 0.5 TABLET AT BEDTIME 10-15 00:00: 00 09-29 00:00 :00 No 5 Surendra White LEVEMIR FLEX 100U/ML PEN 09-15 00:00: 00 09-29 00:00 :00 Alix White spironolact one 25 mg tablet 09-07 00:00: 00 10-08 04:59 :00 No [id number] 12.5mg Take 0.5 tablets by mouth in the morning for 30 days. [facility] BIOTIN ORAL 09-06 19:45: 58 Yes 2000mg Take 2,000 mg by mouth daily. [facility] GABAPENTIN ORAL 09-06 19:45: 58 Yes 800mg Take 800 mg by mouth 3 (three) times daily. [facility] metFORMIN (GLUCOPHAGE ) 1,000 mg tablet 09-06 19:45: 58 Yes 1000mg Take 1,000 mg by mouth 2 (two) times daily with meals. [facility] potassium chloride (K-DUR) 10 mEq CR tablet 09-06 19:45: 58 Yes 20meq Take 20 mEq by mouth daily. [facility] tolterodine LA (DETROL LA) 4 mg 24 hr capsule 09-06 19:45: 58 Yes 4mg Take 4 mg by mouth daily. [facility] ezetimibe (ZETIA) 10 mg tablet 09-06 19:45: 58 Yes 10mg Take 10 mg by mouth daily. [facility] Fentanyl, Bulk, 100 % Powd 09-06 19:45: 58 Yes [facility] insulin glargine 100 unit/mL injection 09-06 19:45: 58 Yes 15U inject 15 Units under the skin every 12 (twelve) hours. [facility] insulin glargine 100 unit/mL injection 09-06 19:45: 58 Yes 25U inject 25 Units under the skin every evening. [facility] diazePAM 5 mg tablet 09-06 19:45: 58 Yes (Schedule IV Drug) TAKE 1 TABLET BY MOUTH EVERY EVENING [facility] DULoxetine 60 mg capsule 09-06 19:45: 58 Yes 1{capsu le} Take 1 capsule by mouth in the morning. [facility] Fenofibrate 150 mg capsule 09-06 19:45: 58 Yes 1{capsu le} Take 1 capsule by mouth in the morning. [facility] losartan 50 mg tablet 09-06 19:45: 58 Yes 1{tbl} Take 1 tablet by mouth in the morning. [facility] raloxifene 60 mg tablet 09-06 19:45: 58 Yes 1 tablet [facility] LORazepam (ATIVAN) injection 0.5 mg 09-06 16:00: 00 09-06 15:24 :00 No .5mg 0.5 mg, Slow IV Push, ONCE, 1 dose, On 09/06/22 at 1100, Routine [facility] furosemide (LASIX) tablet 40 mg 09-06 14:00: 00 Yes 40mg 40 mg, Oral, QAM+PM, First dose (after last modificati on) on 09/06/22 at 0900, Until Discontinu ed, Routine [facility] morpHINE (2 mg/mL) injection 2 mg 09-06 14:00: 00 09-06 13:32 :00 No 2mg 2 mg, Slow IV Push, ONCE, 1 dose, On 09/06/22 at 0900, Routine [facility] FUROSEMIDE 40MG 09-06 00:00: 09-29 00:00 :00 No Surendra White SPIRONOLACT 25MG 09-06 00:00: 00 09-29 00:00 :00 No Surendra White DEXAMETHASO N 6MG 09-06 00:00: 00 09-29 00:00 :00 No Surendra White furosemide 40 mg tablet 09-06 00:00: 00 10-07 04:59 :00 No [id number] 40mg Take 1 tablet by mouth every morning and evening for 30 days. [facility] dexAMETHaso ne 6 mg tablet 09-06 00:00: 00 09-12 04:59 :00 No [id number] 6mg Take 1 tablet by mouth every day at 1200 (noon) for 5 days. [facility] sennosides (SENOKOT) tablet 8.6 mg 09-05 20:00: 00 Yes 8.6mg 8.6 mg, Oral, DAILY, First dose on Thu09/05/22 at 1500, Until Discontinu ed, [facility]ine [facility] furosem[facility] (LASIX) tablet 60 mg 09-04 22:00: 00 09-05 19:25 :27 No 60mg 60 mg, Oral, QAM+PM, First dose (after last modificati on) on Thu09/04/22 at 1700, Until Discontinu ed, Routine [facility] spironolact one (ALDACTONE) tablet 12.5 mg 09-04 14:00: 00 Yes 12.5mg 12.5 mg, Oral, DAILY, First dose on Thu09/04/22 at 0900, Until Discontinu ed, Routine [facility] melatonin (MELATIN) tablet 6 mg 09-04 07:00: 00 Yes 6mg 6 mg, Oral, QHS, First dose on Thu09/04/22 at 0200, Until Discontinu ed, Routine [facility] carvediloL (COREG) tablet 6.25 mg 09-03 22:00: 00 Yes 6.25mg 6.25 mg, Oral, BID MEALS, First dose on Thu09/03/22 at 1700, Until Discontinu ed, Routine [facility] sulfur hexafluorid e microsphr (LUMASON) injection 5 mL 09-03 20:30: 00 09-03 20:30 :00 No [id number] 5mL 5 mL, Intravenou s, ONCE, 1 dose, On Thu09/03/22 at 1530, Routine
biology faculty member approving Restricted medication : GERRY PETTIT [facility] losartan (COZAAR) tablet 50 mg 09-03 17:45: 00 Yes 50mg 50 mg, Oral, DAILY, First dose on Thu09/03/22 at 1245, Until Discontinu ed, Routine [facility] KCL (KLOR-CON M20) tablet 40 mEq 09-03 15:45: 00 09-03 15:13 :00 No 40meq 40 mEq, Oral, ONCE, 1 dose, On Thu09/03/22 at 1045, Routine [facility] magnesium sulfate in water 2 gram/50 mL (4 %) infusion 2 g 09-03 15:45: 00 09-03 16:13 :00 No 2g 2 g, IV Piggyback, Administer over 60 Minutes, ONCE, 1 dose, On Thu09/03/22 at 1045, Routine [facility] enoxaparin (LOVENOX) injection 40 mg 09-03 14:00: 00 Yes 40mg 40 mg, Subcutaneo us, DAILY, First dose on Thu09/03/22 at 0900, Until Discontinu ed, Routine [facility] insulin glargine (LANTUS U-100) injection 15 Units 09-03 13:00: 00 Yes 15U 15 Units, Subcutaneo us, Q12H, First dose on Thu09/03/22 at 0800, Until Discontinu ed, Routine [facility] Sliding Scale Insulin - Lispro (HumaLOG) + Fsbg Testing 09-03 13:00: 00 Yes Subcutaneo us, TID MEALS+HS, First dose on Thu09/03/22 at 0800, Until Discontinu ed, Routine [facility] furosemide (LASIX) injection 40 mg 09-03 13:00: 00 09-04 15:45 :09 No 40mg 40 mg, Slow IV Push, Q12H, First dose on Thu09/03/22 at 0800, Until Discontinu ed, Routine [facility] LORazepam (ATIVAN) tablet 1 mg 09-03 11:45: 00 09-03 10:53 :00 No 1mg 1 mg, Oral, ONCE, 1 dose, On Thu09/03/22 at 0645, Routine [facility] hydralAZINE (APRESOLINE ) injection 10 mg 09-03 11:00: 00 09-03 10:12 :00 No 10mg 10 mg, Slow IV Push, ONCE, 1 dose, On Thu09/03/22 at 0600, STAT [facility] hydrALAZINE (APRESOLINE ) tablet 10 mg 09-03 10:08: 44 Yes 10mg 10 mg, Oral, Q6HPRN, Starting on Thu09/03/22 at 0508, Until Discontinu ed, Routine, SBP>160, DBP>100 [facility] dexAMETHaso ne (DECADRON) tablet 6 mg 09-03 06:45: 00 09-12 16:59 :00 No 6mg 6 mg, Oral, QNOON, 10 doses, First dose on Thu09/03/22 at 0145, Last dose on Thu09/11/22 at 1200, Routine [facility] magnesium sulfate in D5W 1 gram/100 mL RTU IV Piggyback 1 g 09-03 06:00: 00 09-03 06:52 :00 No 1g 1 g, IV Piggyback, ONCE, 1 dose, On Thu09/03/22 at 0100, Administer over 60 Minutes, 100 mL [facility] glucagon (GLUCAGEN DIAGNOSTIC KIT) injection 1 mg 09-03 05:32: 41 Yes 1mg 1 mg, Intramuscu lar, PRN, Starting on Thu09/03/22 at 0032, Until Discontinu ed, SYED, Blood Glucose < or = 70 mg/dL and patient is NPO, unable to swallow or has mental changes. [facility] dextrose 50 % in water (D50W) injection 25 mL 09-03 05:32: 41 Yes 25mL 25 mL, Slow IV Push, PRN, Starting on Thu09/03/22 at 0032, Until Discontinu ed, SYED, Blood Glucose < or = 70 mg/dL and patient is NPO, unable to swallow or has mental status changes. [facility] albuterol (VENTOLIN) inhaler 1 Puff 09-03 02:57: 58 Yes 1{puff} 1 Puff, Inhalation , Q4HPRN, Starting on Thu09/02/22 at 2157, Until Discontinu ed, Routine, Wheezing, Shortness of Breath [facility] dextrometho rphan-guaif enesin (ROBITUSSIN DM) 10-100 mg/5 mL solution 5 mL 09-03 02:57: 49 Yes 5mL 5 mL, Oral, Q6HPRN, Starting on Thu09/02/22 at 2157, Until Discontinu ed, Routine, Cough [facility] acetaminoph en-codeine (TYLENOL #3) 300-30 mg tablet 1 tablet 09-03 02:56: 30 Yes 1{tbl} 1 tablet, Oral, Q4HPRN, Starting on Thu09/02/22 at 2156, Until Discontinu ed, Routine, Pain (scale 4-6) [facility] ondansetron (ZOFRAN (PF)) injection 4 mg 09-03 02:56: 20 Yes 4mg 4 mg, Slow IV Push, Q6HPRN, Starting on Thu09/02/22 at 2156, Until Discontinu ed, Routine, Nausea and Vomiting (N/V) [facility] acetaminoph en (TYLENOL) tablet 650 mg 09-03 02:53: 36 Yes 650mg 650 mg, Oral, Q6HPRN, Starting on Thu09/02/22 at 2153, Until Discontinu ed, Routine, Pain (scale 1-3) [facility] ARIPIPRAZOL E 5MG 09-03 00:00: 00 09-29 00:00 :00 No 5000 Surendra Vandana White DULOXETINE 30MG DR 09-02 00:00: 00 09-29 00:00 :00 No [id number] Surendra Vandana White CARVEDILOL 12.5MG 09-01 00:00: 00 09-29 00:00 :00 No [id number] Surendra Vandana White POT CHLORIDE 10MEQ ER 08-19 00:00: 00 09-29 00:00 :00 No Surendra White FENOFIBRATE 134MG 08-19 00:00: 00 09-29 00:00 :00 No [id number] Surendra White TAKE 1 TABLET TWICE A DAY 08-12 00:00: 00 09-29 00:00 :00 No 125 Surendra Vandana Christopher TAKE 1 CAPSULE TWICE DAILY. 08-12 00:00: 00 09-29 00:00 :00 No 30 Surendra Vandana Christopher TAKE 1 TABLET TWICE DAILY WITH MEALS 08-12 00:00: 00 09-29 00:00 :00 No 1000 Surendra White TAKE 1 CAPSULE BY MOUTH ONCE DAILY 08-12 00:00: 00 09-29 00:00 :00 Alix White TAKE 1/2 TABLET BY MOUTH AT BEDTIME 08-12 00:00: 00 09-29 00:00 :00 Alix White TAKE 1 CAPSULE BY MOUTH EVERY DAY 08-12 00:00: 00 09-29 00:00 :00 No Surendra White TAKE 1 TABLET BY MOUTH EVERY DAY 08-12 00:00: 00 09-29 00:00 :00 No Surendra White TAKE 1 TABLET BY MOUTH EVERY DAY 08-08 00:00: 00 09-29 00:00 :00 No 10 Surendra White TAKE 1 TABLET TWICE A DAY 2023-0 3-24 00:00: 00 09-29 00:00 :00 No 125 Surendra F Christopher TAKE 1/2 TABLET BY MOUTH AT BEDTIME 3- 00:00: 00 09-29 00:00 :00 No Surendraaudrey White once in the morning - 00:00: 00 09-29 00:00 :00 No 40 Surendraaudrey White 1/2 tab daily - 00:00: 00 09-29 00:00 :00 No 5 Surendra Vandana Christopher TAKE 1 TABLET TWICE A DAY 3- 00:00: 00 09-29 00:00 :00 No 125 Surendra F Christopher LEVEMIR FLEX 100U/ML PEN 3-08 00:00: 00 09-29 00:00 :00 No Surendraaudrey White CLOBETASOL 0.05% CRE 3-08 00:00: 00 09-29 00:00 :00 No Surendra White METFORMIN 1000MG 3-03 00:00: 00 09-29 00:00 :00 No [id number] Surendra White FLUOCIN BODY 0.01% OIL 2-06 00:00: 00 09-29 00:00 :00 No Surendra White ARIPIPRAZOL E 5MG 2-02 00:00: 00 09-29 00:00 :00 No 5000 Surendra Vandana Christopher TAKE 1 TABLET TWICE DAILY WITH MEALS 1-31 00:00: 00 09-29 00:00 :00 No 1000 Surendra White TAKE 1 CAPSULE BY MOUTH EVERY DAY 1-16 00:00: 00 09-29 00:00 :00 No Surendra White FENOFIBRATE 134MG 1-16 00:00: 00 09-29 00:00 :00 No Surendra White CARVEDILOL 12.5MG 1-13 00:00: 00 09-29 00:00 :00 No Surendra White BIOTIN ORAL 2023-0 1-10 16:16: 41 Yes 2000mg Take 2,000 mg by mouth daily. [facility] GABAPENTIN ORAL 05-27 16:16: 41 Yes 800mg Take 800 mg by mouth 3 (three) times daily. [facility] metFORMIN (GLUCOPHAGE ) 1,000 mg tablet 05-27 16:16: 41 Yes 1000mg Take 1,000 mg by mouth 2 (two) times daily with meals. [facility] potassium chloride (K-DUR) 10 mEq CR tablet 05-27 16:16: 41 Yes 20meq Take 20 mEq by mouth daily. [facility] tolterodine LA (DETROL LA) 4 mg 24 hr capsule 05-27 16:16: 41 Yes 4mg Take 4 mg by mouth daily. [facility] ezetimibe (ZETIA) 10 mg tablet 05-27 16:16: 41 Yes 10mg Take 10 mg by mouth daily. [facility] Fentanyl, Bulk, 100 % Powd 05-27 16:16: 41 Yes [facility] insulin glargine 100 unit/mL injection 05-27 16:16: 41 Yes 15U inject 15 Units under the skin every morning. [facility] insulin glargine 100 unit/mL injection 05-27 16:16: 41 Yes 25U inject 25 Units under the skin every evening. [facility] diazePAM 5 mg tablet 05-27 16:16: 41 Yes (Schedule IV Drug) TAKE 1 TABLET BY MOUTH EVERY EVENING [facility] DULoxetine 60 mg capsule 05-27 16:16: 41 Yes 1{capsu le} Take 1 capsule by mouth in the morning. [facility] Fenofibrate 150 mg capsule 05-27 16:16: 41 Yes 1{capsu le} Take 1 capsule by mouth in the morning. [facility] losartan 50 mg tablet 05-27 16:16: 41 Yes 1{tbl} Take 1 tablet by mouth in the morning. [facility] raloxifene 60 mg tablet 05-27 16:16: 41 Yes 1 tablet [facility] pantoprazol e 40 mg EC tablet 05-23 00:00: 00 Yes 40mg Take 1 tablet by mouth in the morning. [facility] PANTOPRAZOL E 40MG DR 05-23 00:00: 00 09-29 00:00 :00 No Surendra White ARIPIPRAZOL E 5MG 05-19 00:00: 00 09-29 00:00 :00 No Surendra Vandana White DULoxetine 30 mg capsule 2021-05 00:00: 00 Yes 30mg Take 1 capsule by mouth in the morning and 1 capsule in the evening. [facility] LEVEMIR FLEX 100U/ML PEN 2021-05 00:00: 00 09-29 00:00 :00 No Surendra White TAKE 1 CAPSULE 4 TIMES DAILY. 2021-05 00:00: 00 09-29 00:00 :00 No Surendra Vandana White INJECT 32 UNITS IN THE AM AND 47 UNITS IN THE PM 2021-05 00:00: 00 09-29 00:00 :00 No Surendra White DULOXETINE HCL 30MG DR 2021-05 00:00: 00 09-29 00:00 :00 No 30 Surendra F Christopher Dose Unknown 2021-05 00:00: 00 09-29 00:00 :00 No Surendra Vandana White TAKE 1 TABLET BY MOUTH EVERY DAY 2021-05 00:00: 00 09-29 00:00 :00 No 75 Surendra F Christopher Dose Unknown 2021-05 00:00: 00 09-29 00:00 :00 No Surendra F Christopher TAKE 1 TABLET BY MOUTH EVERY DAY IN THE MORNING 2021-05 00:00: 00 09-29 00:00 :00 No 50 Surendra F Christopher TAKE 1 TABLET BY MOUTH THREE TIMES A DAY 2021-05 00:00: 00 09-29 00:00 :00 No 800 Surendra F Christopher TAKE 1 TABLET BY MOUTH EVERY DAY AT NIGHT 2021-05 2-14 00:00: 00 09-29 00:00 :00 No 5 Surendra F Christopher METFORMIN 1000MG TAB 2021-05 2- 00:00: 00 09-29 00:00 :00 No 1000 Surendra F Christopher TAKE 1 CAPSULE TWICE DAILY. 2021-05 2- 00:00: 00 09-29 00:00 :00 No Surendra F Christopher TAKE 1 TABLET TWICE DAILY. 2021-05 2 00:00: 00 09-29 00:00 :00 No 1000uni t Surendra F Christopher EZETIMIBE 10MG TAB 2021-05 2 00:00: 00 09-29 00:00 :00 No 1000 Surendra F Christopher Dose Unknown 2021-05 2 00:00: 00 09-29 00:00 :00 No 1000 Surendra F Christopher APPLY TOPICALLY TWICE A DAY TO AFFECTED AREA 2021-05 2 00:00: 00 09-29 00:00 :00 No 1000 Surendra F Christopher Dose Unknown 2021-05 2 00:00: 00 09-29 00:00 :00 No Surendra F Christopher POTASSIUM CHLORIDE ER 10MEQ ER 2021-05 2 00:00: 00 09-29 00:00 :00 No Surendra White OLANZAPINE 5MG TAB 2021-05 2- 00:00: 00 09-29 00:00 :00 No 1000 Surendra F Christopher TAKE 1 TABLET BY MOUTH EVERY DAY 2021-05 2 00:00: 00 09-29 00:00 :00 No 75 Surendra F Christopher TAKE 1 TABLET BY MOUTH TWICE A DAY 2021-05 2 00:00: 00 09-29 00:00 :00 No Surendra F Christopher TAKE 1 CAPSULE BY MOUTH EVERY MORNING 2021-05 2- 00:00: 00 09-29 00:00 :00 No 1000 Surendra F Christopher CIPROFLOXAC IN HYDROCHLORI 500MG TAB 2021-05 2- 00:00: 00 09-29 00:00 :00 No 1000 Surendra F Christopher NITROFURANT OIN MACROCRYST 100MG 2021-05 2- 00:00: 00 09-29 00:00 :00 No 1000 Surendra F Christopher Dose Unknown 2021-05 2- 00:00: 00 09-29 00:00 :00 No Surendra F Christopher Dose Unknown 2021-05 2 00:00: 00 09-29 00:00 :00 No Surendra F Christopher TAKE 1 TABLET BY MOUTH TWICE A DAY 2021-05 2- 00:00: 00 09-29 00:00 :00 No 1000 Surendra F Christopher Dose Unknown 2021-05 2 00:00: 00 09-29 00:00 :00 No 1000 Surendra F Christopher Dose Unknown 2021-05 2 00:00: 00 09-29 00:00 :00 No 1000 Surendra F Christopher ROPINIROLE HCL 0.5MG TAB 2021-05 2 00:00: 00 09-29 00:00 :00 No 75 Surendra F Christopher Dose Unknown 2021-05 2 00:00: 00 09-29 00:00 :00 No 1000 Surendra F Christopher Dose Unknown 2021-05 2- 00:00: 00 09-29 00:00 :00 No 1000 Surendra F Christopher TAKE 1 TABLET BY MOUTH EVERY DAY AT NIGHT 2021-05 2 00:00: 00 09-29 00:00 :00 No 40 Surendra F Christopher LEVEMIR FLEXTOUCH 100U/ML PEN 2021-05 2 00:00: 00 09-29 00:00 :00 No Surendra F Christopher Dose Unknown 2021-05 2- 00:00: 00 09-29 00:00 :00 No Surendra F Christopher Dose Unknown 2021-05 2- 00:00: 00 09-29 00:00 :00 No Surendra F Christopher Dose Unknown 2021-05 2- 00:00: 00 09-29 00:00 :00 No Surendra F Christopher Dose Unknown 2021-05 2- 00:00: 00 09-29 00:00 :00 No Surendra F Christopher Dose Unknown 2021-05 2- 00:00: 00 09-29 00:00 :00 No Surendra White Dose Unknown 2021-05 00:00: 00 09-29 00:00 :00 No Surendra White TAKE 1 TABLET DAILY. 2021-05 00:00: 00 09-29 00:00 :00 No 10 Surendra White CLOBETASOL 0.05% CRE 2021-05 00:00: 00 09-29 00:00 :00 No Surendra White FLUOCIN BODY 0.01% OIL 2021-05 00:00: 00 09-29 00:00 :00 No Surendra White TAKE 1 TABLET BY MOUTH EVERY DAY 2021-05 00:00: 00 09-29 00:00 :00 No Surendra White FUROSEMIDE 20MG 2021-05 00:00: 00 09-29 00:00 :00 No [id number] Surendra White NITROFURANT OIN MONOHYDRAT 100MG CAP 2021-05 00:00: 00 09-29 00:00 :00 No Surendra White Dose Unknown 2021-05 00:00: 00 09-29 00:00 :00 No 50 Surendra White LEVEMIR FLEX 100U/ML PEN 2021-05 00:00: 00 09-29 00:00 :00 No [id number] Surendra White TAKE 1 CAPSULE BY MOUTH FOUR TIMES A DAY 2021-05 00:00: 00 09-29 00:00 :00 No Surendra White 40 UNITS QAM, 45 UNITS QPM 2021-05 00:00: 00 09-29 00:00 :00 No 100 Surendra White TAKE 1 TABLET BY MOUTH EVERY DAY 2021-05 00:00: 00 No TAKE 1 TABLET BY MOUTH EVERY DAY IN THE MORNING 2021-05 00:00: 00 No TAKE 1 TABLET BY MOUTH EVERY DAY 2021-05 00:00: 00 09-29 00:00 :00 No 800 Surendra White TAKE 1 TABLET BY MOUTH EVERY DAY IN THE MORNING 2021-05 00:00: 00 09-29 00:00 :00 No Surendra F Christopher Dose Unknown 2021-05 00:00: 00 No TAKE 0.5 TABLET AT BEDTIME 2021-05 00:00: 00 09-29 00:00 :00 No 5unit Surendra White Dose Unknown 2021-05 00:00: 00 09-29 00:00 :00 No Surendra White DULOXETINE 30MG DR 2021-05 00:00: 00 09-29 00:00 :00 No Surendra White INJECT 32 UNITS IN THE AM AND 47 UNITS IN THE PM 2021-05 00:00: 00 09-29 00:00 :00 No Surendra White DULOXETINE 30MG DR 2021-05 00:00: 00 09-29 00:00 :00 No [id number] Surendra White TAKE 0.5/HALF TABLETS BY MOUTH AT BEDTIME 2021-05 00:00: 00 No TAKE 1/2 TABLET BY MOUTH AT BEDTIME 2021-05 00:00: 00 09-29 00:00 :00 No 500 Surendra F Christopher TAKE 2 TABLETS BY MOUTH DAILY 2021-05 00:00: 00 No 125 Dose Unknown 2021-05 00:00: 00 09-29 00:00 :00 No 500 Surendra White TAKE 1 CAPSULE BY MOUTH TWICE A DAY 2021-05 0 00:00: 00 No TAKE 1 CAPSULE BY MOUTH TWICE A DAY 2021-05 025 00:00: 00 09-29 00:00 :00 No Surendra White ARIPIPRAZOL E 5MG 2021-05 0-18 00:00: 00 09-29 00:00 :00 No 5000 Surendra White PANTOPRAZOL E 40MG DR 2021-05 0-17 00:00: 00 09-29 00:00 :00 No [id number] Surendra White TAKE 1 TABLET TWICE A DAY 2021-05 0-14 00:00: 00 09-29 00:00 :00 No Surendra White APPLY THIN FILM TO AFFECTED AREA 3 TIMES DAILY FOR 7 TO 10 DAYS. 2021-05 0-04 00:00: 00 09-29 00:00 :00 No Surendra F Christopher Dose Unknown 2021-05 0-03 00:00: 00 No GABAPENTIN 800MG TAB 2021-05 0-03 00:00: 00 09-29 00:00 :00 No 1000 Surendra F Christopher GABAPENTIN 800MG 9-19 00:00: 00 09-29 00:00 :00 No [id number] Surendra F Christopher MUPIROCIN 2% OIN -16 00:00: 00 09-29 00:00 :00 No 2000 Surendra F Christopher PANTOPRAZOL E SODIUM 40MG DR TAB - 00:00: 00 No PANTOPRAZOL E SODIUM 40MG DR TAB 0 15 00:00: 00 09-29 00:00 :00 No Surendra F Christopher DULOXETINE HCL 30MG DR CAP 2021-0 -14 00:00: 00 No DULOXETINE HCL 30MG DR CAP 0 -14 00:00: 00 09-29 00:00 :00 No Surendra F Christopher LOSARTAN POTASSIUM 50MG 0 9-11 00:00: 00 09-29 00:00 :00 No [id number] Surendra F Christopher FUROSEMIDE 20MG - 00:00: 00 09-29 00:00 :00 No [id number] Surendra F Christopher Dose Unknown 9- 00:00: 00 No Dose Unknown 0 9-09 00:00: 00 09-29 00:00 :00 No 1000 Surendra F Christopher Dose Unknown 0 9-06 00:00: 00 Yes 1000 Surendra F Christopher TAKE 1 TABLET BY MOUTH EVERY DAY AT NIGHT 0 9-06 00:00: 00 No METFORMIN HYDROCHLORI DE 1000MG 0 9-05 00:00: 00 09-29 00:00 :00 No [id number] Surendra F Christopher EZETIMIBE 10MG 2021-0 9-04 00:00: 00 09-29 00:00 :00 No [id number] Surendra F Christopher TAKE 1 CAPSULE BY MOUTH TWICE A DAY 2022-0 8-19 00:00: 00 Yes 30 Surendra White TAKE 1 CAPSULE BY MOUTH TWICE A DAY 2021-0 8-19 00:00: 00 No 30 TAKE 1 CAPSULE BY MOUTH TWICE A DAY 2021-0 8-19 00:00: 00 No 30 LOSARTAN POTASSIUM 50MG TAB 2-0 8-18 00:00: 00 Yes 50 Surendra White TAKE 1 CAPSULE BY MOUTH EVERY MORNING 2021-0 8-18 00:00: 00 Yes 134 Surendra White LOSARTAN POTASSIUM 50MG TAB 2021-0 8-18 00:00: 00 No 50 TAKE 1 CAPSULE BY MOUTH EVERY MORNING 2021-0 8-18 00:00: 00 No 134 LOSARTAN POTASSIUM 50MG TAB 2021-0 8-18 00:00: 00 No 50 TAKE 1 CAPSULE BY MOUTH EVERY MORNING 2021-0 8-18 00:00: 00 No 134 &lt 2-0 8-11 00:00: 00 Yes Surendra White &lt 2-0 8-11 00:00: 00 No &lt 2-0 8-11 00:00: 00 No &lt 2-0 8-10 00:00: 00 Yes 5 Surendra White Dose Unknown 2021-0 8-10 00:00: 00 Yes 2 Surendra White APPLY 1 GM ON THE SKIN DAILY 2021-0 8-10 00:00: 00 Yes Surendra White TAKE 0.5/HALF TABLETS BY MOUTH AT BEDTIME 2021-0 8-10 00:00: 00 Yes 5 Surendra White &lt 2022-0 8-10 00:00: 00 Yes Surendra White &lt 2022-0 8-10 00:00: 00 Yes 20 Surendra Vandana White &lt 2022-0 8-10 00:00: 00 Yes 30 Surendra White &lt 2-0 8-10 00:00: 00 No 5 Dose Unknown 2021-0 8-10 00:00: 00 No 2 APPLY 1 GM ON THE SKIN DAILY 2021-0 8-10 00:00: 00 No TAKE 0.5/HALF TABLETS BY MOUTH AT BEDTIME 2021-0 8-10 00:00: 00 No 5 &lt 2022-0 8-10 00:00: 00 No &lt 2022-0 8-10 00:00: 00 No 20 &lt 2022-0 8- 00:00: 00 No 30 &lt 2022-0 8- 00:00: 00 No 5 Dose Unknown 2-0 8 00:00: 00 No 2 APPLY 1 GM ON THE SKIN DAILY 2021-0 8- 00:00: 00 No TAKE 0.5/HALF TABLETS BY MOUTH AT BEDTIME 2-0 8- 00:00: 00 No 5 &lt 2022-0 8-10 00:00: 00 No &lt 2022-0 8 00:00: 00 No 20 &lt 2022-0 8 00:00: 00 No 30 &lt 2022-0 12-24 00:00: 00 Yes 40 Surendra F Christopher Dose Unknown 2021-0 12-24 00:00: 00 Yes 800 Surendra Vandana White APPLY 1 GM ON THE SKIN DAILY 2021-0 12-24 00:00: 00 Yes Surendra F Christopher &lt 2022-0 12-24 00:00: 00 Yes 20 Surendra F Christopher Dose Unknown 2021-0 12-24 00:00: 00 Yes Surendra F Christopher Dose Unknown 2-0 12-24 00:00: 00 Yes 10 Surendra F Christopher &lt 2022-0 12-24 00:00: 00 Yes Surendra F Christopher &lt 2022-0 12-24 00:00: 00 Yes 30 Surendra Vandana White TAKE 2 TABLETS BY MOUTH EVERY DAY 2021-0 12-24 00:00: 00 Yes 125 Surendra F Christopher Dose Unknown 2021-0 12-24 00:00: 00 Yes 2 Surendra F Christopher &lt 2022-0 12-24 00:00: 00 No 40 Dose Unknown 2-0 12-24 00:00: 00 No 800 APPLY 1 GM ON THE SKIN DAILY 0 12-24 00:00: 00 No &lt 2022-0 12-24 00:00: 00 No 20 Dose Unknown 2-0 - 00:00: 00 No Dose Unknown 2-0 12-24 00:00: 00 No 10 &lt 2022-0 12-24 00:00: 00 No &lt 2022-0 12-24 00:00: 00 No 30 TAKE 2 TABLETS BY MOUTH EVERY DAY 2021-0 12-24 00:00: 00 No 125 Dose Unknown 0 12-24 00:00: 00 No 2 &lt 2022-0 12-24 00:00: 00 No 40 Dose Unknown 0 12-24 00:00: 00 No 800 APPLY 1 GM ON THE SKIN DAILY 0 12-24 00:00: 00 No &lt 2022-0 12-24 00:00: 00 No 20 Dose Unknown 0 12-24 00:00: 00 No Dose Unknown 0 12-24 00:00: 00 No 10 &lt 2022-0 12-24 00:00: 00 No &lt 2022-0 12-24 00:00: 00 No 30 TAKE 2 TABLETS BY MOUTH EVERY DAY 0 12-24 00:00: 00 No 125 Dose Unknown 0 12-24 00:00: 00 No 2 TAKE 1 CAPSULE BY MOUTH TWICE A DAY WITH FOOD 0 12-24 00:00: 00 09-29 00:00 :00 No Surendra White Levemir FlexTouch U-100 Insulin 100 unit/mL (3 mL) subcutaneou s pen 2021-0 12-23 00:00: 00 Yes (3 mL) Surendra White ezetimibe 10 mg tablet 2021-0 12-23 00:00: 00 Yes 1mg Surendra White Dose Unknown 0 12-23 00:00: 00 No ezetimibe 10 mg tablet 2021-0 12-23 00:00: 00 No 1mg Levemir FlexTouch U-100 Insulin 100 unit/mL (3 mL) subcutaneou s pen 2021-0 12-23 00:00: 00 No (3 mL) ezetimibe 10 mg tablet 2021-0 12-23 00:00: 00 No 1mg &lt 2022-0 8- 00:00: 00 No 2 &lt 2022-0 8- 00:00: 00 No 10 &lt 2022-0 8- 00:00: 00 No 20 &lt 2022-0 8- 00:00: 00 No &lt 2022-0 8- 00:00: 00 No 2 &lt 2022-0 8- 00:00: 00 No 10 &lt 2022-0 8- 00:00: 00 Yes 20 Surendra White &lt 2022-0 8- 00:00: 00 Yes Surendra Ross Christopher &lt 2022-0 8- 00:00: 00 Yes 2 Surendra Ross Christopher &lt 2022-0 8- 00:00: 00 Yes 10 Surendra Ross Christopher &lt 2022-0 8 00:00: 00 No 20 &lt 2022-0 8- 00:00: 00 No aripiprazol e 5 mg tablet 2-0 12-12 00:00: 00 No 5mg duloxetine 30 mg capsule,del ayed release 2-0 12-12 00:00: 00 No 1mg TAKE 1 TABLET BY MOUTH THREE TIMES A DAY 2-0 12-12 00:00: 00 No 800 &lt 2022-0 12-12 00:00: 00 No 500 Dose Unknown 2021-0 12-12 00:00: 00 No Dose Unknown 2021-0 12-12 00:00: 00 No 5 Dose Unknown 2021-0 12-12 00:00: 00 No Dose Unknown 2021-0 12-12 00:00: 00 No 2 &lt 2022-0 12-12 00:00: 00 No 5 aripiprazol e 5 mg tablet 2021-0 12-12 00:00: 00 No 5mg duloxetine 30 mg capsule,del ayed release 0 12-12 00:00: 00 No 1mg TAKE 1 TABLET BY MOUTH THREE TIMES A DAY 2021-0 12-12 00:00: 00 No 800 &lt 2-0 12-12 00:00: 00 No 500 Dose Unknown 2021-0 12-12 00:00: 00 No Dose Unknown 2-0 12-12 00:00: 00 No 5 Dose Unknown 2021-0 12-12 00:00: 00 No Dose Unknown 2021-0 12-12 00:00: 00 No 2 &lt 2022-0 12-12 00:00: 00 No 5 aripiprazol e 5 mg tablet 2021-0 12-12 00:00: 00 Yes 5mg Surendra White duloxetine 30 mg capsule,del ayed release 2-0 12-12 00:00: 00 Yes 1mg Surendra White TAKE 1 TABLET BY MOUTH THREE TIMES A DAY 2021-0 12-12 00:00: 00 Yes 800 Surendra F Christopher &lt 2022-0 12-12 00:00: 00 Yes 500 Surendra F Christopher Dose Unknown 2021-0 12-12 00:00: 00 Yes Surendra F Christopher Dose Unknown 2021-0 12-12 00:00: 00 Yes 5 Surendra F Christopher Dose Unknown 2021-0 12-12 00:00: 00 Yes Surendra F Christopher Dose Unknown 0 12-12 00:00: 00 Yes 2 Surendra F Christopher &lt 2022-0 12-12 00:00: 00 Yes 5 Surendra F Christopher &lt 2022-0 12-10 00:00: 00 No &lt 2022-0 12-10 00:00: 00 No 20 &lt 2022-0 12-10 00:00: 00 No &lt 2022-0 12-10 00:00: 00 No 20 &lt 2022-0 12-10 00:00: 00 Yes Surendra F Christopher &lt 2-0 12-10 00:00: 00 Yes 20 Surendra Vandana White PANTOPRAZOL E SODIUM 40MG DR 2021-0 12-06 00:00: 00 05 00:00 :00 No [id number] Surendra White TAKE 2 TABLETS BY MOUTH EVERY DAY 2021-0 12-04 00:00: 00 No 125 &lt 2022-0 12-04 00:00: 00 No 40 &lt 2022-0 12-04 00:00: 00 No 10 Dose Unknown 2-0 12-04 00:00: 00 No TAKE 2 TABLETS BY MOUTH EVERY DAY 2-0 12-04 00:00: 00 No 125 &lt 2022-0 12-04 00:00: 00 No 40 &lt 2022-0 12-04 00:00: 00 No 10 Dose Unknown 2-0 12-04 00:00: 00 No TAKE 2 TABLETS BY MOUTH EVERY DAY 2-0 12-04 00:00: 00 Yes 125 Surendra F Christopher &lt 2022-0 12-04 00:00: 00 Yes 40 Surendra F Christopher &lt 2022-0 12-04 00:00: 00 Yes 10 Surendra F Christopher Dose Unknown 2021-0 12-04 00:00: 00 Yes Surendra F Christopher &lt 2022-0 11-28 00:00: 00 No 500 Dose Unknown 2-0 11-28 00:00: 00 No 2 APPLY 1 GM ON THE SKIN DAILY 2021-0 11-28 00:00: 00 No &lt 2022-0 11-28 00:00: 00 No 500 Dose Unknown 2-0 11-28 00:00: 00 No 2 APPLY 1 GM ON THE SKIN DAILY 2021-0 11-28 00:00: 00 No &lt 2022-0 11-28 00:00: 00 Yes 500 Surendraaudrey White Dose Unknown 2021-0 11-28 00:00: 00 Yes 2 Surendraaudrey White APPLY 1 GM ON THE SKIN DAILY 2021-0 11-28 00:00: 00 Yes Surendra White &lt 2022-0 11-22 00:00: 00 No 5 &lt 2022-0 11-22 00:00: 00 No 40 &lt 2022-0 11-22 00:00: 00 No 20 Dose Unknown 2022-0 11-22 00:00: 00 No 2 &lt 2022-0 11-22 00:00: 00 No &lt 2022-0 11-22 00:00: 00 No &lt 2022-0 11-22 00:00: 00 No 10 Dose Unknown 2022-0 11-22 00:00: 00 No 800 Dose Unknown 2022-0 11-22 00:00: 00 No TAKE 0.5/HALF TABLETS BY MOUTH AT BEDTIME 2022-0 11-22 00:00: 00 No 5 &lt 2022-0 11-22 00:00: 00 No 5 &lt 2022-0 11-22 00:00: 00 No 40 &lt 2022-0 11-22 00:00: 00 No 20 Dose Unknown 2022-0 11-22 00:00: 00 No 2 &lt 2022-0 11-22 00:00: 00 No &lt 2022-0 11-22 00:00: 00 No &lt 2022-0 11-22 00:00: 00 No 10 Dose Unknown 2022-0 11-22 00:00: 00 No 800 Dose Unknown 2022-0 11-22 00:00: 00 No TAKE 0.5/HALF TABLETS BY MOUTH AT BEDTIME 2-0 11-22 00:00: 00 No 5 &lt 2022-0 11-22 00:00: 00 Yes 5 Surendra Vandana Christopher &lt 2022-0 7- 00:00: 00 Yes 40 Surendra F Christopher &lt 2022-0 11-22 00:00: 00 Yes 20 Surendra F Christopher Dose Unknown 2021-0 - 00:00: 00 Yes 2 Surendra Vandana Christopher &lt 2022-0 11-22 00:00: 00 Yes Surendra F Christopher &lt 2022-0 11-22 00:00: 00 Yes Surendra F Christopher &lt 2022-0 11-22 00:00: 00 Yes 10 Surendra Vandana White Dose Unknown 2021-0 11-22 00:00: 00 Yes 800 Surendra Vandana White Dose Unknown 2021-0 11-22 00:00: 00 Yes Surendra White TAKE 0.5/HALF TABLETS BY MOUTH AT BEDTIME 2-0 11-22 00:00: 00 Yes 5 Surendra Ross Christopher &lt 2022-0 11-21 00:00: 00 No &lt 2022-0 7 00:00: 00 No &lt 2022-0 11-21 00:00: 00 Yes Surendra White &lt 2022-0 7- 00:00: 00 No 2 &lt 2022-0 7- 00:00: 00 No 2 &lt 2022-0 7- 00:00: 00 Yes 2 Surendra White aripiprazol e 5 mg tablet 2021-0 7- 00:00: 00 No 5mg &lt 2022-0 7- 00:00: 00 No TAKE 1 TABLET BY MOUTH THREE TIMES A DAY 2-0 7- 00:00: 00 No &lt 2022-0 7- 00:00: 00 No aripiprazol e 5 mg tablet 2-0 7- 00:00: 00 No 5mg &lt 2022-0 7- 00:00: 00 No TAKE 1 TABLET BY MOUTH THREE TIMES A DAY 2-0 7- 00:00: 00 No &lt 2022-0 7- 00:00: 00 No aripiprazol e 5 mg tablet 2-0 7- 00:00: 00 Yes 5mg Surendra White &lt 2022-0 7- 00:00: 00 Yes Surendra White TAKE 1 TABLET BY MOUTH THREE TIMES A DAY 0 11-15 00:00: 00 Yes Surendra Whiet &lt 0 11-15 00:00: 00 Yes Surendra White Abilify 2 mg tablet 0 11-14 00:00: 00 No 15mg duloxetine 30 mg capsule,del ayed release 0 11-14 00:00: 00 No 1mg &lt 0 11-14 00:00: 00 No Abilify 2 mg tablet 0 11-14 00:00: 00 No 15mg duloxetine 30 mg capsule,del ayed release 0 11-14 00:00: 00 No 1mg &lt 0 11-14 00:00: 00 No Abilify 2 mg tablet 11-14 00:00: 00 Yes 15mg Surendra White duloxetine 30 mg capsule,del ayed release 11-14 00:00: 00 Yes 1mg Surendra White &lt 0 11-14 00:00: 00 Yes Surendra White &lt 0 11-12 00:00: 00 No TAKE 1 TABLET BY MOUTH EVERY DAY IN THE MORNING 0 11-12 00:00: 00 No TAKE 2 TABLETS BY MOUTH DAILY 0 11-12 00:00: 00 No &lt 0 11-12 00:00: 00 No TAKE 1 TABLET BY MOUTH EVERY DAY IN THE MORNING 0 11-12 00:00: 00 No TAKE 2 TABLETS BY MOUTH DAILY 0 11-12 00:00: 00 No &lt 0 11-12 00:00: 00 Yes Surendra White TAKE 1 TABLET BY MOUTH EVERY DAY IN THE MORNING 0 11-12 00:00: 00 Yes Surendra White TAKE 2 TABLETS BY MOUTH DAILY 0 11-12 00:00: 00 Yes Surendra White GABAPENTIN 800MG 11-06 00:00: 00 09-29 00:00 :00 No [id number] Surendra White metformin 1,000 mg tablet 11-02 00:00: 00 No 1mg furosemide 20 mg tablet 11-02 00:00: 00 No 1mg losartan 50 mg tablet 0 18 00:00: 00 No 1mg metformin 1,000 mg tablet 0 18 00:00: 00 No 1mg furosemide 20 mg tablet 0 18 00:00: 00 No 1mg losartan 50 mg tablet 0 18 00:00: 00 No 1mg metformin 1,000 mg tablet 0 18 00:00: 00 Yes 1mg Surendra White furosemide 20 mg tablet 0 18 00:00: 00 Yes 1mg Surendra White losartan 50 mg tablet 0 18 00:00: 00 Yes 1mg Surendra White metformin 1,000 mg tablet 0 10-31 00:00: 00 No 1mg furosemide 20 mg tablet 0 10-31 00:00: 00 No 1mg metformin 1,000 mg tablet 0 10-31 00:00: 00 No 1mg furosemide 20 mg tablet 0 10-31 00:00: 00 No 1mg metformin 1,000 mg tablet 0 10-31 00:00: 00 Yes 1mg Surendra White furosemide 20 mg tablet 0 10-31 00:00: 00 Yes 1mg Surendra White CARVEDILOL 12.5MG 0 10-31 00:00: 00 09-29 00:00 :00 No [id number] Surendra White &lt 2021-0 10-28 00:00: 00 No &lt 2-0 10-28 00:00: 00 No &lt 2-0 10-28 00:00: 00 Yes Surendra White Abilify 2 mg tablet 0 10-17 00:00: 00 No 15mg duloxetine 30 mg capsule,del ayed release 0 10-17 00:00: 00 No 1mg &lt 2-0 10-17 00:00: 00 No TAKE 1 TABLET BY MOUTH EVERY DAY 0 10-17 00:00: 00 No Abilify 2 mg tablet 2021-0 10-17 00:00: 00 No 15mg duloxetine 30 mg capsule,del ayed release 0 10-17 00:00: 00 No 1mg &lt 2022-0 10-17 00:00: 00 No TAKE 1 TABLET BY MOUTH EVERY DAY 2021-0 6- 00:00: 00 No Abilify 2 mg tablet 2021-0 6- 00:00: 00 Yes 15mg Surendra White duloxetine 30 mg capsule,del ayed release 2021-0 6- 00:00: 00 Yes 1mg Surendra White &lt 2021-0 6- 00:00: 00 Yes Surendra White TAKE 1 TABLET BY MOUTH EVERY DAY 2021-0 - 00:00: 00 Yes Surendra White &lt 2-0 6- 00:00: 00 No &lt 2-0 6- 00:00: 00 No &lt 2-0 6- 00:00: 00 Yes Surendra White Abilify 2 mg tablet 2021-0 5-17 00:00: 00 No 15mg duloxetine 30 mg capsule,del ayed release 0 5-17 00:00: 00 No 1mg Abilify 2 mg tablet 0 5-17 00:00: 00 No 15mg duloxetine 30 mg capsule,del ayed release 0 -17 00:00: 00 No 1mg Abilify 2 mg tablet 0 5-17 00:00: 00 Yes 15mg Surendra White duloxetine 30 mg capsule,del ayed release 0 5-17 00:00: 00 Yes 1mg Surendra White Aricept 5 mg tablet 2021-0 5-10 00:00: 00 No 1mg Aricept 5 mg tablet 2021-0 5-10 00:00: 00 No 1mg Aricept 5 mg tablet 2021-0 5-10 00:00: 00 Yes 1mg Surendra White DONEPEZIL HYDROCHLORI DE 5MG 2021-0 5-10 00:00: 00 05-15 00:00 :00 No 5000 Surendra White ezetimibe 10 mg tablet 2021-0 - 00:00: 00 No 1mg carvedilol 12.5 mg tablet 2021-0 - 00:00: 00 No 2mg Aricept 5 mg tablet 2021-0 - 00:00: 00 No 1mg cefuroxime axetil 500 mg tablet 09-10 00:00: 00 No 1mg aripiprazol e 5 mg tablet 09-10 00:00: 00 No 5mg gabapentin 800 mg tablet 09-10 00:00: 00 No 1mg Abilify 2 mg tablet 09-10 00:00: 00 No 2mg Abilify 2 mg tablet 09-10 00:00: 00 No 15mg duloxetine 30 mg capsule,del ayed release 09-10 00:00: 00 No 1mg fenofibrate micronized 134 mg capsule 09-10 00:00: 00 No 1mg potassium chloride ER 10 mEq capsule,ext ended release 09-10 00:00: 00 No 1mEq ezetimibe 10 mg tablet 09-10 00:00: 00 No 1mg carvedilol 12.5 mg tablet 09-10 00:00: 00 No 2mg Aricept 5 mg tablet 09-10 00:00: 00 No 1mg cefuroxime axetil 500 mg tablet 09-10 00:00: 00 No 1mg aripiprazol e 5 mg tablet 09-10 00:00: 00 No 5mg gabapentin 800 mg tablet 09-10 00:00: 00 No 1mg Abilify 2 mg tablet 09-10 00:00: 00 No 2mg Abilify 2 mg tablet 09-10 00:00: 00 No 15mg duloxetine 30 mg capsule,del ayed release 09-10 00:00: 00 No 1mg fenofibrate micronized 134 mg capsule 09-10 00:00: 00 No 1mg potassium chloride ER 10 mEq capsule,ext ended release 09-10 00:00: 00 No 1mEq ezetimibe 10 mg tablet 09-10 00:00: 00 Yes 1mg Surendra White carvedilol 12.5 mg tablet 09-10 00:00: 00 Yes 2mg Surendra White Aricept 5 mg tablet 09-10 00:00: 00 Yes 1mg Surendra White cefuroxime axetil 500 mg tablet 0 - 00:00: 00 Yes 1mg Surendra White aripiprazol e 5 mg tablet 0 - 00:00: 00 Yes 5mg Surendra White gabapentin 800 mg tablet 0 - 00:00: 00 Yes 1mg Surendra White Abilify 2 mg tablet 0 - 00:00: 00 Yes 2mg Surendra White duloxetine 30 mg capsule,del ayed release 0 - 00:00: 00 Yes 1mg Surendra White fenofibrate micronized 134 mg capsule 0 4- 00:00: 00 Yes 1mg Surendra White potassium chloride ER 10 mEq capsule,ext ended release 0 09-10 00:00: 00 Yes 1mEq Surendra White Dose Unknown 2021-0 4-01 00:00: 00 No Dose Unknown 2-0 4-01 00:00: 00 No Dose Unknown 2022-0 4-01 00:00: 00 No Dose Unknown 2-0 4-01 00:00: 00 No Dose Unknown 2022-0 4-01 00:00: 00 Yes Surendra White Dose Unknown 2-0 4-01 00:00: 00 Yes Surendra White Dose Unknown 2022-0 3-24 00:00: 00 No Dose Unknown 2022-0 3-24 00:00: 00 No Dose Unknown 2022-0 3-24 00:00: 00 Yes Surendra White Dose Unknown 2-0 3-22 00:00: 00 No Dose Unknown 2022-0 3-22 00:00: 00 No Dose Unknown 2022-0 3-22 00:00: 00 Yes Surendra White FENOFIBRATE MICRONIZED 134MG 2-0 3-21 00:00: 00 4- 05-15 00:00 :00 No [id number] Surendra White Dose Unknown 2022-0 3-17 00:00: 00 No Dose Unknown 2022-0 3-17 00:00: 00 No Dose Unknown 2022-0 3-17 00:00: 00 No Dose Unknown 2022-0 3-17 00:00: 00 No Dose Unknown 2022-0 3-17 00:00: 00 No Dose Unknown 2022-0 3-17 00:00: 00 No Dose Unknown 2022-0 3-17 00:00: 00 Yes Surendra White Dose Unknown 2022-0 3-17 00:00: 00 Yes Surendra White Dose Unknown 2022-0 3-17 00:00: 00 Yes Surendra White Dose Unknown 2022-0 3-15 00:00: 00 No Dose Unknown 2022-0 3-15 00:00: 00 No Dose Unknown 2022-0 3-15 00:00: 00 Yes Surendra White Dose Unknown 2022-0 3-08 00:00: 00 No Dose Unknown 2022-0 3-08 00:00: 00 No Dose Unknown 2022-0 3-08 00:00: 00 No Dose Unknown 2022-0 3-08 00:00: 00 No Dose Unknown 2022-0 3-08 00:00: 00 Yes Surendra White Dose Unknown 2022-0 3-08 00:00: 00 Yes Surendra White Dose Unknown 2022-0 3-03 00:00: 00 No duloxetine 30 mg capsule,del ayed release 2022-0 3-03 00:00: 00 No 1mg fenofibrate micronized 134 mg capsule 2022-0 3-03 00:00: 00 No 1mg Dose Unknown 2022-0 3-03 00:00: 00 No Dose Unknown 2022-0 3-03 00:00: 00 No Dose Unknown 2022-0 3-03 00:00: 00 No Dose Unknown 2022-0 3-03 00:00: 00 No Dose Unknown 2022-0 3-03 00:00: 00 No Dose Unknown 2022-0 3-03 00:00: 00 No Dose Unknown 2022-0 3-03 00:00: 00 No Dose Unknown 2022-0 3-03 00:00: 00 No Dose Unknown 2022-0 3-03 00:00: 00 No duloxetine 30 mg capsule,del ayed release 2022-0 3-03 00:00: 00 No 1mg fenofibrate micronized 134 mg capsule 2022-0 3-03 00:00: 00 No 1mg duloxetine 30 mg capsule,del ayed release 2022-0 3-03 00:00: 00 Yes 1mg Surendra White fenofibrate micronized 134 mg capsule 2022-0 3-03 00:00: 00 Yes 1mg Surendra White Dose Unknown 3-03 00:00: 00 Yes Surendra White Dose Unknown 3-03 00:00: 00 Yes Surendra White Dose Unknown 3-03 00:00: 00 Yes Surendra White Dose Unknown 3-03 00:00: 00 Yes Surendra White Dose Unknown 3- 00:00: 00 Yes Surendra White ROPINIROLE HCL 0.5MG 2-28 00:00: 00 09-29 00:00 :00 No 500 Surendra White Abilify 2 mg tablet 2-24 00:00: 00 No 1mg Abilify 2 mg tablet 2-24 00:00: 00 No 1mg Abilify 2 mg tablet 0 2-24 00:00: 00 Yes 1mg Surendra White TAKE 1 TABLET BY MOUTH EVERY DAY 2-24 00:00: 00 09-29 00:00 :00 No Surendra White Macrobid 100 mg capsule 2-03 00:00: 00 No 1mg Macrobid 100 mg capsule 0 2-03 00:00: 00 No 1mg Macrobid 100 mg capsule 0 2-03 00:00: 00 Yes 1mg Surendra White metformin 1,000 mg tablet 1-26 00:00: 00 No 1mg metformin 1,000 mg tablet 0 1- 00:00: 00 No 1mg metformin 1,000 mg tablet 0 1-26 00:00: 00 Yes 1mg Surendra White Abilify 2 mg tablet 1-13 00:00: 00 No 1mg Dose Unknown 1-13 00:00: 00 No Abilify 2 mg tablet 0 1- 00:00: 00 No 1mg Dose Unknown 1- 00:00: 00 No Abilify 2 mg tablet 0 1- 00:00: 00 Yes 1mg Surendra White Dose Unknown 1-13 00:00: 00 Yes Surendra White ezetimibe 10 mg tablet 2020-05 2-24 00:00: 00 No 1mg carvedilol 12.5 mg tablet 2020-05 2- 00:00: 00 No 2mg furosemide 20 mg tablet 2020-05 2 00:00: 00 No 1mg Dose Unknown 2020-05 2- 00:00: 00 No ezetimibe 10 mg tablet 2020-05 2- 00:00: 00 No 1mg carvedilol 12.5 mg tablet 2020-05 00:00: 00 No 2mg furosemide 20 mg tablet 2020-05 2 00:00: 00 No 1mg Dose Unknown 2020-05 00:00: 00 No ezetimibe 10 mg tablet 2020-05 2 00:00: 00 Yes 1mg Surendra White carvedilol 12.5 mg tablet 2020-05 00:00: 00 Yes 2mg Surendra White furosemide 20 mg tablet 2020-05 00:00: 00 Yes 1mg Surendra White Dose Unknown 2020-05 00:00: 00 Yes Surendra White Abilify 2 mg tablet 2020-05 2 00:00: 00 No 1mg duloxetine 30 mg capsule,del ayed release 2020-05 2- 00:00: 00 No 1mg Abilify 2 mg tablet 2020-05 2 00:00: 00 No 1mg duloxetine 30 mg capsule,del ayed release 2020-05 2 00:00: 00 No 1mg Abilify 2 mg tablet 2020-05 2- 00:00: 00 Yes 1mg Surendra White duloxetine 30 mg capsule,del ayed release 2020-05 2-20 00:00: 00 Yes 1mg Surendra White Cipro 500 mg tablet 2020-05 1-24 00:00: 00 No 1mg Cipro 500 mg tablet 2020-05 1-24 00:00: 00 No 1mg Cipro 500 mg tablet 2020-05 1-24 00:00: 00 Yes 1mg Surendra White Dose Unknown 2020-05 1-18 00:00: 00 No duloxetine 30 mg capsule,del ayed release 2020-05 00:00: 00 No 1mg Zyprexa 5 mg tablet 2020-05 00:00: 00 No 1mg duloxetine 30 mg capsule,del ayed release 2020-05 00:00: 00 No 1mg Zyprexa 5 mg tablet 2020-05 00:00: 00 Yes 1mg Surendra White duloxetine 30 mg capsule,del ayed release 2020-05 00:00: 00 Yes 1mg Surendra White pantoprazol e 40 mg tablet,norm yed release 2020-05 00:00: 00 No 1mg pantoprazol e 40 mg tablet,norm yed release 2020-05 00:00: 00 No 1mg pantoprazol e 40 mg tablet,norm yed release 2020-05 00:00: 00 Yes 1mg Surendra White Zyprexa 5 mg tablet 2020-05 0 00:00: 00 No 1mg duloxetine 30 mg capsule,del ayed release 2020-05 0 00:00: 00 No 1mg Zyprexa 5 mg tablet 2020-05 0 00:00: 00 No 1mg duloxetine 30 mg capsule,del ayed release 2020-05 0 00:00: 00 No 1mg Zyprexa 5 mg tablet 2020-05 027 00:00: 00 Yes 1mg Surendra White duloxetine 30 mg capsule,del ayed release 2020-05 0 00:00: 00 Yes 1mg Surendra White Zyprexa 2.5 mg tablet 2020-05 0-14 00:00: 00 No 1mg duloxetine 30 mg capsule,del ayed release 2020-05 0-14 00:00: 00 No 1mg Zyprexa 2.5 mg tablet 2020-05 0-14 00:00: 00 No 1mg duloxetine 30 mg capsule,del ayed release 2020-05 0-14 00:00: 00 No 1mg Zyprexa 2.5 mg tablet 2020-05 0-14 00:00: 00 Yes 1mg Surendra White duloxetine 30 mg capsule,del ayed release 2020-05 0-14 00:00: 00 Yes 1mg Surendra White nystatin 100,000 unit/gram topical powder 2020-05 0-07 00:00: 00 No 1unit/g milad duloxetine 30 mg capsule,del ayed release 2020-05 0- 00:00: 00 No 1mg nystatin 100,000 unit/gram topical powder 2020-05 0-07 00:00: 00 No 1unit/g milad duloxetine 30 mg capsule,del ayed release 2020-05 0- 00:00: 00 No 1mg nystatin 100,000 unit/gram topical powder 2020-05 0 00:00: 00 Yes 1unit/g milad White duloxetine 30 mg capsule,del ayed release 2020-05 0 00:00: 00 Yes 1mg Surendra White Abilify 2 mg tablet 01-24 00:00: 00 No 1mg clonazepam 1 mg tablet 01-24 00:00: 00 No 1mg Abilify 2 mg tablet 01-24 00:00: 00 No 1mg clonazepam 1 mg tablet 01-24 00:00: 00 No 1mg Abilify 2 mg tablet 01-24 00:00: 00 Yes 1mg Surendra White clonazepam 1 mg tablet 01-24 00:00: 00 Yes 1mg Surendra White metformin 1,000 mg tablet 01-15 00:00: 00 No 1mg gabapentin 800 mg tablet 01-15 00:00: 00 No 1mg losartan 50 mg tablet 01-15 00:00: 00 No 1mg furosemide 20 mg tablet 01-15 00:00: 00 No 1mg ropinirole 0.5 mg tablet 01-15 00:00: 00 No 1mg pantoprazol e 40 mg tablet,norm yed release 01-15 00:00: 00 No 1mg duloxetine 30 mg capsule,del ayed release 01-15 00:00: 00 No 1mg fenofibrate micronized 134 mg capsule 01-15 00:00: 00 No 1mg Dose Unknown 01-15 00:00: 00 No Levemir FlexTouch U-100 Insulin 100 unit/mL (3 mL) subcutaneou s pen 01-15 00:00: 00 No (3 mL) clopidogrel 75 mg tablet 01-15 00:00: 00 No 1mg ezetimibe 10 mg tablet 01-15 00:00: 00 No 1mg carvedilol 12.5 mg tablet 01-15 00:00: 00 No 2mg metformin 1,000 mg tablet 01-15 00:00: 00 No 1mg gabapentin 800 mg tablet 01-15 00:00: 00 No 1mg losartan 50 mg tablet 01-15 00:00: 00 No 1mg furosemide 20 mg tablet 01-15 00:00: 00 No 1mg ropinirole 0.5 mg tablet 01-15 00:00: 00 No 1mg pantoprazol e 40 mg tablet,norm yed release 01-15 00:00: 00 No 1mg duloxetine 30 mg capsule,del ayed release 01-15 00:00: 00 No 1mg fenofibrate micronized 134 mg capsule 01-15 00:00: 00 No 1mg Dose Unknown 01-15 00:00: 00 No Levemir FlexTouch U-100 Insulin 100 unit/mL (3 mL) subcutaneou s pen 01-15 00:00: 00 No (3 mL) Dose Unknown 01-15 00:00: 00 No ezetimibe 10 mg tablet 01-15 00:00: 00 No 1mg carvedilol 12.5 mg tablet 01-15 00:00: 00 No 2mg Levemir FlexTouch U-100 Insulin 100 unit/mL (3 mL) subcutaneou s pen 01-15 00:00: 00 Yes (3 mL) Surendra White clopidogrel 75 mg tablet 01-15 00:00: 00 Yes 1mg Surendra White ezetimibe 10 mg tablet 01-15 00:00: 00 Yes 1mg Surendra White carvedilol 12.5 mg tablet 01-15 00:00: 00 Yes 2mg Surendra White metformin 1,000 mg tablet 01-15 00:00: 00 Yes 1mg Surendra White gabapentin 800 mg tablet 01-15 00:00: 00 Yes 1mg Surendra White losartan 50 mg tablet 01-15 00:00: 00 Yes 1mg Surendra White furosemide 20 mg tablet 01-15 00:00: 00 Yes 1mg Surendra White ropinirole 0.5 mg tablet 01-15 00:00: 00 Yes 1mg Surendra White pantoprazol e 40 mg tablet,norm yed release 01-15 00:00: 00 Yes 1mg Surendra White duloxetine 30 mg capsule,del ayed release 01-15 00:00: 00 Yes 1mg Surendra White fenofibrate micronized 134 mg capsule 01-15 00:00: 00 Yes 1mg Surendra White Dose Unknown 01-15 00:00: 00 Yes Surendra White Levemir FlexTouch U-100 Insulin 100 unit/mL (3 mL) subcutaneou s pen 01-01 00:00: 00 No (3 mL) carvedilol 12.5 mg tablet 01-01 00:00: 00 No 2mg ezetimibe 10 mg tablet 01-01 00:00: 00 No 1mg clopidogrel 75 mg tablet 01-01 00:00: 00 No 1mg metformin 1,000 mg tablet 01-01 00:00: 00 No 1mg gabapentin 800 mg tablet 01-01 00:00: 00 No 1mg furosemide 20 mg tablet 01-01 00:00: 00 No 1mg losartan 50 mg tablet 01-01 00:00: 00 No 1mg ropinirole 0.5 mg tablet 01-01 00:00: 00 No 1mg duloxetine 30 mg capsule,del ayed release 01-01 00:00: 00 No 1mg fenofibrate micronized 134 mg capsule 01-01 00:00: 00 No 1mg Levemir FlexTouch U-100 Insulin 100 unit/mL (3 mL) subcutaneou s pen 01-01 00:00: 00 No (3 mL) carvedilol 12.5 mg tablet 01-01 00:00: 00 No 2mg ezetimibe 10 mg tablet 01-01 00:00: 00 No 1mg clopidogrel 75 mg tablet 01-01 00:00: 00 No 1mg metformin 1,000 mg tablet 01-01 00:00: 00 No 1mg gabapentin 800 mg tablet 01-01 00:00: 00 No 1mg furosemide 20 mg tablet 01-01 00:00: 00 No 1mg losartan 50 mg tablet 01-01 00:00: 00 No 1mg ropinirole 0.5 mg tablet 01-01 00:00: 00 No 1mg duloxetine 30 mg capsule,del ayed release 01-01 00:00: 00 No 1mg fenofibrate micronized 134 mg capsule 01-01 00:00: 00 No 1mg Levemir FlexTouch U-100 Insulin 100 unit/mL (3 mL) subcutaneou s pen 01-01 00:00: 00 Yes (3 mL) Surendra White carvedilol 12.5 mg tablet 01-01 00:00: 00 Yes 2mg Surendra White ezetimibe 10 mg tablet 01-01 00:00: 00 Yes 1mg Surendra White clopidogrel 75 mg tablet 01-01 00:00: 00 Yes 1mg Surendra White metformin 1,000 mg tablet 01-01 00:00: 00 Yes 1mg Surendra White gabapentin 800 mg tablet 01-01 00:00: 00 Yes 1mg Surendra White furosemide 20 mg tablet 01-01 00:00: 00 Yes 1mg Surendra White losartan 50 mg tablet 01-01 00:00: 00 Yes 1mg Surendra White ropinirole 0.5 mg tablet 2021-0 8-17 00:00: 00 Yes 1mg Surendra White duloxetine 30 mg capsule,del ayed release 2020-0 8-17 00:00: 00 Yes 1mg Surendra White fenofibrate micronized 134 mg capsule 2020-0 8-17 00:00: 00 Yes 1mg Surendra White Macrodantin 100 mg capsule 2020-0 7-15 00:00: 00 No 1mg Macrodantin 100 mg capsule 2020-0 7-15 00:00: 00 No 1mg Macrodantin 100 mg capsule 2020-0 7-15 00:00: 00 Yes 1mg Surendra White duloxetine 30 mg capsule,del ayed release 2020-0 7-08 00:00: 00 No 1mg duloxetine 30 mg capsule,del ayed release 2020-0 7-08 00:00: 00 No 1mg duloxetine 30 mg capsule,del ayed release 2020-0 7-08 00:00: 00 Yes 1mg Surendra White carvedilol 12.5 mg tablet 2020-0 5-21 00:00: 00 No 2mg fenofibrate micronized 134 mg capsule 2020-0 5-21 00:00: 00 No 1mg carvedilol 12.5 mg tablet 2020-0 5-21 00:00: 00 No 2mg fenofibrate micronized 134 mg capsule 2020-0 5-21 00:00: 00 No 1mg carvedilol 12.5 mg tablet 2020-0 5-21 00:00: 00 Yes 2mg Surendra White fenofibrate micronized 134 mg capsule 2020-0 5-21 00:00: 00 Yes 1mg Surendra White ciprofloxac in 500 mg tablet 2020-0 4-14 00:00: 00 No 1mg Align 4 mg capsule 2020-0 4-14 00:00: 00 No 1mg ciprofloxac in 500 mg tablet 2020-0 4-14 00:00: 00 No 1mg Align 4 mg capsule 2020-0 4-14 00:00: 00 No 1mg ciprofloxac in 500 mg tablet 2020-0 4-14 00:00: 00 Yes 1mg Surendra White Align 4 mg capsule 2020-0 4-14 00:00: 00 Yes 1mg Surendra White nystatin 100,000 unit/gram topical powder 08-15 00:00: 00 No 1unit/g milad Levemir FlexTouch U-100 Insulin 100 unit/mL (3 mL) subcutaneou s pen 08-15 00:00: 00 No (3 mL) metformin 1,000 mg tablet 08-15 00:00: 00 No 1mg gabapentin 800 mg tablet 08-15 00:00: 00 No 1mg losartan 50 mg tablet 08-15 00:00: 00 No 1mg pantoprazol e 40 mg tablet,norm yed release 08-15 00:00: 00 No 1mg ropinirole 0.5 mg tablet 08-15 00:00: 00 No 1mg nystatin 100,000 unit/gram topical powder 08-15 00:00: 00 No 1unit/g milad Levemir FlexTouch U-100 Insulin 100 unit/mL (3 mL) subcutaneou s pen 08-15 00:00: 00 No (3 mL) metformin 1,000 mg tablet 08-15 00:00: 00 No 1mg gabapentin 800 mg tablet 08-15 00:00: 00 No 1mg losartan 50 mg tablet 08-15 00:00: 00 No 1mg pantoprazol e 40 mg tablet,norm yed release 08-15 00:00: 00 No 1mg ropinirole 0.5 mg tablet 08-15 00:00: 00 No 1mg nystatin 100,000 unit/gram topical powder 08-15 00:00: 00 Yes 1unit/g milad White Levemir FlexTouch U-100 Insulin 100 unit/mL (3 mL) subcutaneou s pen 08-15 00:00: 00 Yes (3 mL) Surendra White metformin 1,000 mg tablet 08-15 00:00: 00 Yes 1mg Surendra White gabapentin 800 mg tablet 08-15 00:00: 00 Yes 1mg Surendra White losartan 50 mg tablet 08-15 00:00: 00 Yes 1mg Surendra White pantoprazol e 40 mg tablet,norm yed release 08-15 00:00: 00 Yes 1mg Surendra White ropinirole 0.5 mg tablet 08-15 00:00: 00 Yes 1mg Surendra White Levemir FlexTouch U-100 Insulin 100 unit/mL (3 mL) subcutaneou s pen 07-24 00:00: 00 No (3 mL) Levemir FlexTouch U-100 Insulin 100 unit/mL (3 mL) subcutaneou s pen 07-24 00:00: 00 No (3 mL) Levemir FlexTouch U-100 Insulin 100 unit/mL (3 mL) subcutaneou s pen 07-24 00:00: 00 Yes (3 mL) Surendra White metformin 1,000 mg tablet 3- 00:00: 00 No 1mg gabapentin 800 mg tablet 3- 00:00: 00 No 1mg losartan 50 mg tablet 3- 00:00: 00 No 1mg metformin 1,000 mg tablet 3- 00:00: 00 No 1mg gabapentin 800 mg tablet 3- 00:00: 00 No 1mg losartan 50 mg tablet 3- 00:00: 00 No 1mg metformin 1,000 mg tablet 3- 00:00: 00 Yes 1mg Surendra White gabapentin 800 mg tablet 3- 00:00: 00 Yes 1mg Surendra White losartan 50 mg tablet 3- 00:00: 00 Yes 1mg Surendra White gabapentin 800 mg tablet 2- 00:00: 00 No 1mg gabapentin 800 mg tablet 2- 00:00: 00 No 1mg gabapentin 800 mg tablet 2- 00:00: 00 Yes 1mg Surendra White losartan 50 mg tablet 1- 00:00: 00 No 1mg losartan 50 mg tablet 1- 00:00: 00 No 1mg losartan 50 mg tablet 202106-05 00:00: 00 Yes 1mg Surendra White metformin 1,000 mg tablet 2019-05 00:00: 00 No 1mg metformin 1,000 mg tablet 2019-05 00:00: 00 No 1mg metformin 1,000 mg tablet 2019-05 00:00: 00 Yes 1mg Surendra White gabapentin 800 mg tablet 2019-05- 00:00: 00 No 1mg gabapentin 800 mg tablet 2019-05 00:00: 00 No 1mg gabapentin 800 mg tablet 2019-05 00:00: 00 Yes 1mg Surendra White Augmentin 875 mg-125 mg tablet 2019-05 0- 00:00: 00 No 1mg Augmentin 875 mg-125 mg tablet 2019-05 0 00:00: 00 No 1mg Augmentin 875 mg-125 mg tablet 2019-05 0 00:00: 00 Yes 1mg Surendra White losartan 50 mg tablet 2019-05 0-16 00:00: 00 No 1mg losartan 50 mg tablet 2019-05 016 00:00: 00 No 1mg losartan 50 mg tablet 2019-05 016 00:00: 00 Yes 1mg Surendra White Macrodantin 100 mg capsule 2019-05 0-07 00:00: 00 No 1mg Macrodantin 100 mg capsule 2019-05 0-07 00:00: 00 No 1mg Macrodantin 100 mg capsule 2019-05 0 00:00: 00 Yes 1mg Surendra White gabapentin 800 mg tablet 8- 00:00: 00 No 1mg gabapentin 800 mg tablet 8 00:00: 00 No 1mg gabapentin 800 mg tablet 8 00:00: 00 Yes 1mg Surendra White pantoprazol e 40 mg tablet,norm yed release 3-10 00:00: 00 No 1mg pantoprazol e 40 mg tablet,norm yed release 3-10 00:00: 00 No 1mg pantoprazol e 40 mg tablet,norm yed release 3-10 00:00: 00 Yes 1mg Surendra White ezetimibe 10 mg tablet 2-21 00:00: 00 No 1mg clopidogrel 75 mg tablet 07-08 00:00: 00 No 1mg gabapentin 800 mg tablet 07-08 00:00: 00 No 1mg furosemide 20 mg tablet 07-08 00:00: 00 No 1mg losartan 50 mg tablet 07-08 00:00: 00 No 1mg ropinirole 0.5 mg tablet 07-08 00:00: 00 No 1mg duloxetine 30 mg capsule,del ayed release 07-08 00:00: 00 No 1mg nystatin 100,000 unit/gram topical powder 07-08 00:00: 00 No 1unit/g milad carvedilol 12.5 mg tablet 07-08 00:00: 00 No 2mg nystatin 100,000 unit/gram topical powder 07-08 00:00: 00 No 1unit/g milad carvedilol 12.5 mg tablet 07-08 00:00: 00 No 2mg ezetimibe 10 mg tablet 07-08 00:00: 00 No 1mg clopidogrel 75 mg tablet 07-08 00:00: 00 No 1mg gabapentin 800 mg tablet 07-08 00:00: 00 No 1mg furosemide 20 mg tablet 07-08 00:00: 00 No 1mg losartan 50 mg tablet 07-08 00:00: 00 No 1mg ropinirole 0.5 mg tablet 07-08 00:00: 00 No 1mg duloxetine 30 mg capsule,del ayed release 07-08 00:00: 00 No 1mg nystatin 100,000 unit/gram topical powder 07-08 00:00: 00 Yes 1unit/g milad White carvedilol 12.5 mg tablet 07-08 00:00: 00 Yes 2mg Surendra White ezetimibe 10 mg tablet 07-08 00:00: 00 Yes 1mg Surendra White clopidogrel 75 mg tablet 07-08 00:00: 00 Yes 1mg Surendra White gabapentin 800 mg tablet 07-08 00:00: 00 Yes 1mg Surendra White furosemide 20 mg tablet 07-08 00:00: 00 Yes 1mg Surendra White losartan 50 mg tablet 07-08 00:00: 00 Yes 1mg Surendra White ropinirole 0.5 mg tablet 07-08 00:00: 00 Yes 1mg Surendra White duloxetine 30 mg capsule,del ayed release 07-08 00:00: 00 Yes 1mg Surendra White gabapentin 800 mg tablet 06-26 00:00: 00 No 3mg fenofibrate micronized 134 mg capsule 06-26 00:00: 00 No 1mg gabapentin 800 mg tablet 06-26 00:00: 00 No 3mg fenofibrate micronized 134 mg capsule 06-26 00:00: 00 No 1mg gabapentin 800 mg tablet 06-26 00:00: 00 Yes 3mg Surendra White fenofibrate micronized 134 mg capsule 06-26 00:00: 00 Yes 1mg Surendra White nystatin 100,000 unit/gram topical powder 06-17 00:00: 00 No 1unit/g milad nystatin 100,000 unit/gram topical powder 06-17 00:00: 00 No 1unit/g milad nystatin 100,000 unit/gram topical powder 06-17 00:00: 00 Yes 1unit/g milad White ropinirole 0.5 mg tablet 05-27 00:00: 00 No 1mg ropinirole 0.5 mg tablet 05-27 00:00: 00 No 1mg ropinirole 0.5 mg tablet 05-27 00:00: 00 Yes 1mg Surendra White DIVALPROEX 125 mg EC tablet 06-04 00:00: 00 02-02 00:00 :00 No TAKE 1 TABLET BY MOUTH EVERY 12 HOURS [facility] ARIPIPRAZOL E 2 mg tablet 2017-05 00:00: 00 Yes TAKE 1 TABLET BY MOUTH EVERY DAY [facility] clonazePAM 1 mg tablet 02-05 00:00: 00 06-08 00:00 :00 No 1mg Take 1 tablet by mouth at bedtime. [facility] BIOTIN ORAL 02-02 16:07: 23 Yes 2000mg Take 2,000 mg by mouth daily. [facility] GABAPENTIN ORAL 02-02 16:07: 23 Yes 800mg Take 800 mg by mouth 3 (three) times daily. [facility] metFORMIN (GLUCOPHAGE ) 1,000 mg tablet 02-02 16:07: 23 Yes 1000mg Take 1,000 mg by mouth 2 (two) times daily with meals. [facility] potassium chloride (K-DUR) 10 mEq CR tablet 02-02 16:07: 23 Yes 20meq Take 20 mEq by mouth daily. [facility] tolterodine LA (DETROL LA) 4 mg 24 hr capsule 02-02 16:07: 23 Yes 4mg Take 4 mg by mouth daily. [facility] ezetimibe (ZETIA) 10 mg tablet 02-02 16:07: 23 Yes 10mg Take 10 mg by mouth daily. [facility] Fentanyl, Bulk, 100 % Powd 02-02 16:07: 23 Yes [facility] insulin glargine (LANTUS) 100 unit/mL injection 02-02 16:07: 23 Yes 15U inject 15 Units under the skin every morning. [facility] insulin glargine (LANTUS) 100 unit/mL injection 02-02 16:07: 23 Yes 25U inject 25 Units under the skin every evening. [facility] rOPINIRole 0.5 mg tablet 02-02 00:00: 00 Yes .5mg Take 1 tablet by mouth at bedtime. [facility] diphenoxyla te-atropine (LOMOTIL) 2.5-0.025 mg per tablet 2016-05 005 00:00: 00 06-08 00:00 :00 No 1{tbl} Take 1 tablet by mouth every 6 (six) hours as needed (diarrhea) . [facility] ipratropium -albuterol 0.5 mg-3 mg(2.5 mg base)/3 mL nebulizer solution 2016-05 002 00:00: 00 Yes 3mL Inhale 3 mL every 4 (four) hours as needed for Wheezing. [facility] acetaminoph en-codeine (TYLENOL #3) 300-30 mg tablet 10-22 00:00: 00 10-21 00:00 :00 No 1{tbl} Take 1 tablet by mouth every 4 (four) hours as needed for Pain (scale 7-10). [facility] traMADOL (ULTRAM) 50 mg tablet 09-12 00:00: 00 06-08 00:00 :00 No 50mg Take 1 tablet by mouth every 4 (four) hours as needed for Pain (scale 4-6). [facility] carvediloL 6.25 mg tablet -09 00:00: 00 03-23 00:00 :00 No 6.25mg Take 1 tablet by mouth in the morning and 1 tablet in the evening. Take with meals. [facility] furosemide (LASIX) 20 mg tablet 3-15 00:00: 00 09-06 00:00 :00 No 20mg Take 20 mg by mouth daily. [facility] ACCU-CHEK NYA PLUS TEST STRP strip 3-12 00:00: 00 06-08 00:00 :00 No [facility] clopidogrel (PLAVIX) 75 mg tablet 2-08 00:00: 00 11-01 00:00 :00 No 75mg Take 75 mg by mouth daily. [facility] Immunizations Ordered Immunization Name Filled Immunization Name Date Status Comments Source influenza, seasonal vaccine, quadrivalent, adjuvanted, .5mL dose, preservative-free 2022-02-18 00:00:00 Completed influenza, seasonal vaccine, quadrivalent, adjuvanted, .5mL dose, preservative-free 2022-02-18 00:00:00 Completed influenza, seasonal vaccine, quadrivalent, adjuvanted, .5mL dose, preservative-free influenza, seasonal vaccine, quadrivalent, adjuvanted, .5mL dose, preservative-free 2022-02-18 00:00:00 Completed Surendra White influenza, high-dose, quadrivalent 2020-08-15 00:00:00 Completed influenza, high-dose, quadrivalent 2020-08-15 00:00:00 Completed influenza, high-dose, quadrivalent 2020-08-15 00:00:00 Completed influenza, high-dose, quadrivalent 2020-08-15 00:00:00 Completed influenza, high-dose, quadrivalent influenza, high-dose, quadrivalent 2020-08-15 00:00:00 Completed Surendra White Moderna COVID-19 Vaccine 2020-07-14 00:00:00 Completed Moderna COVID-19 Vaccine 2020-07-14 00:00:00 Completed Moderna COVID-19 Vaccine 2020-07-14 00:00:00 Completed Moderna COVID-19 Vaccine 2020-07-14 00:00:00 Completed Moderna COVID-19 Vaccine Moderna COVID-19 Vaccine 2020-07-14 00:00:00 Completed Surendra White Moderna COVID-19 Vaccine 2020-06-16 00:00:00 Completed Moderna COVID-19 Vaccine 2020-06-16 00:00:00 Completed Moderna COVID-19 Vaccine 2020-06-16 00:00:00 Completed Moderna COVID-19 Vaccine 2020-06-16 00:00:00 Completed Moderna COVID-19 Vaccine Moderna COVID-19 Vaccine 2020-06-16 00:00:00 Completed Surendra White Influenza High Dose 2017-02-16 00:00:00 Completed [facility] Influenza High Dose 2017-02-16 00:00:00 Completed [facility] Influenza, High-Dose, Trivalent, PF (FLUZONE) 2017-02-16 00:00:00 Completed [facility] Influenza High Dose 2017-02-16 00:00:00 Completed [facility] Influenza High Dose 2017-02-16 00:00:00 Completed [facility] Influenza High Dose 2017-02-16 00:00:00 Completed [facility] Influenza High Dose 2017-02-16 00:00:00 Completed [facility] Influenza High Dose 2017-02-16 00:00:00 Completed [facility] Influenza High Dose 2017-02-16 00:00:00 Completed [facility] Influenza High Dose 2017-02-16 00:00:00 Completed [facility] Influenza High Dose 2017-02-16 00:00:00 Completed [facility] Influenza High Dose 2017-02-16 00:00:00 Completed [facility] Influenza High Dose 2017-02-16 00:00:00 Completed [facility] TD, NOS 2016-11-27 00:00:00 Completed [facility] TD, NOS 2016-11-27 00:00:00 Completed [facility] TD, NOS 2016-11-27 00:00:00 Completed [facility] Td 2016-11-27 00:00:00 Completed [facility] TD, NOS 2016-11-27 00:00:00 Completed [facility] TD, NOS 2016-11-27 00:00:00 Completed [facility] TD, NOS 2016-11-27 00:00:00 Completed [facility] TD, NOS 2016-11-27 00:00:00 Completed [facility] TD, NOS 2016-11-27 00:00:00 Completed [facility] TD, NOS 2016-11-27 00:00:00 Completed [facility] TD, NOS 2016-11-27 00:00:00 Completed [facility] TD, NOS 2016-11-27 00:00:00 Completed [facility] TD, NOS 2016-11-27 00:00:00 Completed [facility] Pneumococcal conjugate P 2007-05-18 00:00:00 Completed Pneumococcal conjugate P 2007-05-18 00:00:00 Completed Pneumococcal conjugate P 2007-05-18 00:00:00 Completed Pneumococcal conjugate P 2007-05-18 00:00:00 Completed Pneumococcal conjugate P Pneumococcal conjugate P 2007-05-18 00:00:00 Completed Surendra White TD, NOS Unknown Completed [facility] Influenza High Dose Unknown Completed [facility] TD, NOS Unknown Completed [facility] Influenza High Dose Unknown Completed [facility] TD, NOS Unknown Completed [facility] Influenza High Dose Unknown Completed [facility] TD, NOS Unknown Completed [facility] Influenza High Dose Unknown Completed [facility] TD, NOS Unknown Completed [facility] Influenza High Dose Unknown Completed [facility] TD, NOS Unknown Completed [facility] Influenza High Dose Unknown Completed [facility] TD, NOS Unknown Completed [facility] Influenza High Dose Unknown Completed [facility] TD, NOS Unknown Completed [facility] Influenza High Dose Unknown Completed [facility] TD, NOS Unknown Completed [facility] Influenza High Dose Unknown Completed [facility] TD, NOS Unknown Completed [facility] Influenza High Dose Unknown Completed [facility] TD, NOS Unknown Completed [facility] Influenza High Dose Unknown Completed [facility] TD, NOS Unknown Completed [facility] Influenza High Dose Unknown Completed [facility] TD, NOS Unknown Completed [facility] Influenza High Dose Unknown Completed [facility] TD, NOS Unknown Completed [facility] Influenza High Dose Unknown Completed [facility] TD, NOS Unknown Completed [facility] Influenza High Dose Unknown Completed [facility] TD, NOS Unknown Completed [facility] Influenza High Dose Unknown Completed [facility] TD, NOS Unknown Completed [facility] Influenza High Dose Unknown Completed [facility] TD, NOS Unknown Completed [facility] Influenza High Dose Unknown Completed [facility] TD, NOS Unknown Completed [facility] Influenza High Dose Unknown Completed [facility] TD, NOS Unknown Completed [facility] Influenza High Dose Unknown Completed [facility] TD, NOS Unknown Completed [facility] Influenza High Dose Unknown Completed [facility] TD, NOS Unknown Completed [facility] Influenza High Dose Unknown Completed [facility] TD, NOS Unknown Completed [facility] Influenza High Dose Unknown Completed [facility] Vital Signs Vital Name Observation Time Observation Value Comments S ource Systolic blood pressure 2024-06-08 21:32:00 114 mm[Hg] [facility] Diastolic blood pressure 2024-06-08 21:32:00 57 mm[Hg] [facility] Heart rate 2024-06-08 21:32:00 90 /[facility] Body temperature 2024-06-08 21:32:00 36.39 Gloria [facility] Respiratory rate 2024-06-08 21:32:00 15 /min [facility] Oxygen saturation in Arterial blood by Pulse oximetry 2024-06-08 21:32:00 91 /min [facility] Body weight 2024-06-08 09:39:00 83 kg [facility] BMI 2024-06-08 09:39:00 32.41 kg/m2 [facility] Body height 2024-05-25 06:27:00 160 cm [facility] Systolic blood pressure 2024-03-10 17:55:00 135 mm[Hg] [facility] Diastolic blood pressure 2024-03-10 17:55:00 62 mm[Hg] [facility] Heart rate 2024-03-10 17:55:00 75 /min [facility]ive [facility] Oxygen saturation in Arterial blood by Pulse oximetry 2024-03-10 17:55:00 92 /min [facility] Respiratory rate 2024-03-10 17:45:00 16 /min [facility] Body temperature 2024-03-10 13:17:00 36.56 Gloria [facility] Body height 2024-03-10 13:17:00 160 cm [facility] Body weight 2024-03-10 13:17:00 83.462 kg [facility] BMI 2024-03-10 13:17:00 32.59 kg/m2 [facility] Systolic blood pressure 2024-03-10 15:30:00 153 mm[Hg] [facility] Diastolic blood pressure 2024-03-10 15:30:00 66 mm[Hg] [facility] Heart rate 2024-03-10 15:30:00 69 /min [facility] Respiratory rate 2024-03-10 15:30:00 15 /min [facility] Oxygen saturation in Arterial blood by Pulse oximetry 2024-03-10 15:30:00 98 /min [facility] Body temperature 2024-03-10 13:17:00 36.56 Gloria [facility] Body height 2024-03-10 13:17:00 160 cm [facility] Body weight 2024-03-10 13:17:00 83.462 kg [facility] BMI 2024-03-10 13:17:00 32.59 kg/m2 [facility] Systolic blood pressure 2024-03-04 16:33:00 127 mm[Hg] [facility] Diastolic blood pressure 2024-03-04 16:33:00 59 mm[Hg] [facility] Heart rate 2024-03-04 16:33:00 62 /min [facility] Respiratory rate 2024-03-04 16:33:00 16 /min [facility] Body height 2024-03-04 16:33:00 160 cm [facility] Body weight 2024-03-04 16:33:00 83.915 kg [facility] BMI 2024-03-04 16:33:00 32.77 kg/m2 [facility] Oxygen saturation in Arterial blood by Pulse oximetry 2024-03-04 16:33:00 93 /min [facility] Systolic blood pressure 2023-12-30 22:00:00 155 mm[Hg] [facility] Diastolic blood pressure 2023-12-30 22:00:00 61 mm[Hg] [facility] Heart rate 2023-12-30 22:00:00 69 /min [facility] Body temperature 2023-12-30 22:00:00 36.83 Gloria [facility] Respiratory rate 2023-12-30 22:00:00 17 /min [facility] Oxygen saturation in Arterial blood by Pulse oximetry 2023-12-30 22:00:00 95 /min [facility] Body height 2023-12-30 16:45:00 160 cm [facility] Body weight 2023-12-30 16:45:00 83.915 kg [facility] BMI 2023-12-30 16:45:00 32.77 kg/m2 [facility] Systolic blood pressure 2023-10-26 21:34:00 127 mm[Hg] [facility] Diastolic blood pressure 2023-10-26 21:34:00 63 mm[Hg] [facility] Heart rate 2023-10-26 21:34:00 89 /min [facility] Body temperature 2023-10-26 21:34:00 36.72 Gloria [facility] Respiratory rate 2023-10-26 21:34:00 19 /min [facility] Oxygen saturation in Arterial blood by Pulse oximetry 2023-10-26 21:34:00 95 /min [facility] Body weight 2023-10-26 08:11:00 88.497 kg [facility] BMI 2023-10-26 08:11:00 34.56 kg/m2 [facility] Body height 2023-10-22 07:40:00 160 cm [facility] Systolic blood pressure 2023-07-10 03:02:00 140 mm[Hg] [facility] Diastolic blood pressure 2023-07-10 03:02:00 65 mm[Hg] [facility] Heart rate 2023-07-10 03:02:00 75 /min [facility] Body temperature 2023-07-10 03:02:00 36.5 Gloria [facility] Respiratory rate 2023-07-10 03:02:00 15 /min [facility] Oxygen saturation in Arterial blood by Pulse oximetry 2023-07-10 03:02:00 94 /min [facility] Body height 2023-07-10 00:36:00 160 cm [facility] Body weight 2023-07-10 00:36:00 81.647 kg [facility] BMI 2023-07-10 00:36:00 31.89 kg/m2 [facility] Systolic blood pressure 2023 23:38:38 143 mm[Hg] [facility] Diastolic blood pressure 2023 23:38:38 90 mm[Hg] [facility] Heart rate 2023 23:38:38 100 /min [facility] Respiratory rate 2023 23:38:38 24 /min [facility] Oxygen saturation in Arterial blood by Pulse oximetry 2023 23:38:38 96 /min [facility] Body temperature 2023 21:21:55 36.67 Gloria [facility] Body height 2023 19:14:00 160 cm [facility] Body weight 2023 19:14:00 81.647 kg [facility] BMI 2023 19:14:00 31.89 kg/m2 [facility] Systolic blood pressure 2023-03-23 19:51:00 116 mm[Hg] [facility] Diastolic blood pressure 2023-03-23 19:51:00 71 mm[Hg] [facility] Heart rate 2023-03-23 19:51:00 92 /min [facility] Body temperature 2023-03-23 19:51:00 36.78 Gloria [facility] Body height 2023-03-23 19:51:00 165.1 cm [facility] Body weight 2023-03-23 19:51:00 82.101 kg [facility] BMI 2023-03-23 19:51:00 30.12 kg/m2 [facility] Oxygen saturation in Arterial blood by Pulse oximetry 2023-03-23 19:51:00 93 /min [facility] Systolic blood pressure 2023-02-18 16:30:00 111 mm[Hg] [facility] Diastolic blood pressure 2023-02-18 16:30:00 57 mm[Hg] [facility] Heart rate 2023-02-18 16:30:00 76 /min [facility] Body temperature 2023-02-18 16:30:00 35.94 Gloria [facility] Respiratory rate 2023-02-18 16:30:00 18 /min [facility] Oxygen saturation in Arterial blood by Pulse oximetry 2023-02-18 16:30:00 92 /min [facility] Body weight 2023-02-18 08:02:00 80.468 kg [facility] BMI 2023-02-18 08:02:00 28.65 kg/m2 [facility] Body height 2023-02-03 03:35:00 167.6 cm [facility] Systolic blood pressure 2022-11-07 16:42:00 106 mm[Hg] [facility] Diastolic blood pressure 2022-11-07 16:42:00 54 mm[Hg] [facility] Heart rate 2022-11-07 16:42:00 80 /min [facility] Body temperature 2022-11-07 16:42:00 36.44 Gloria [facility] Respiratory rate 2022-11-07 16:42:00 20 /min [facility] Oxygen saturation in Arterial blood by Pulse oximetry 2022-11-07 16:42:00 94 /min [facility] Body height 2022-10-26 07:45:00 167.6 cm [facility] Body weight 2022-10-26 07:45:00 81.647 kg [facility] BMI 2022-10-26 07:45:00 29.05 kg/m2 [facility] Systolic blood pressure 2022-10-31 12:26:00 125 mm[Hg] [facility] Diastolic blood pressure 2022-10-31 12:26:00 55 mm[Hg] [facility] Heart rate 2022-10-31 12:26:00 68 /min [facility] Body temperature 2022-10-31 12:26:00 36.56 Gloria [facility] Respiratory rate 2022-10-31 12:26:00 17 /min [facility] Oxygen saturation in Arterial blood by Pulse oximetry 2022-10-31 12:26:00 93 /min [facility] Body height 2022-10-26 07:45:00 167.6 cm [facility] Body weight 2022-10-26 07:45:00 81.647 kg [facility] BMI 2022-10-26 07:45:00 29.05 kg/m2 [facility] Systolic blood pressure 2022-10-28 18:30:00 120 mm[Hg] [facility] Diastolic blood pressure 2022-10-28 18:30:00 58 mm[Hg] [facility] Heart rate 2022-10-28 18:30:00 64 /min [facility] Respiratory rate 2022-10-28 18:30:00 17 /min [facility] Oxygen saturation in Arterial blood by Pulse oximetry 2022-10-28 18:30:00 94 /min [facility] Body temperature 2022-10-28 13:00:00 36.39 Gloria [facility] Body height 2022-10-26 07:45:00 167.6 cm [facility] Body weight 2022-10-26 07:45:00 81.647 kg [facility] BMI 2022-10-26 07:45:00 29.05 kg/m2 [facility] Systolic blood pressure 2022-09-06 20:21:00 130 mm[Hg] [facility] Diastolic blood pressure 2022-09-06 20:21:00 74 mm[Hg] [facility] Heart rate 2022-09-06 20:21:00 88 /min [facility] Body temperature 2022-09-06 20:21:00 36.78 Gloria [facility] Respiratory rate 2022-09-06 20:21:00 18 /min [facility] Oxygen saturation in Arterial blood by Pulse oximetry 2022-09-06 20:21:00 98 /min [facility] Body height 2022-09-03 02:32:00 160 cm [facility] Body weight 2022-09-03 02:32:00 85.548 kg [facility] BMI 2022-09-03 02:32:00 33.41 kg/m2 [facility] Systolic blood pressure 2022-05-27 22:12:00 161 mm[Hg] [facility] Diastolic blood pressure 2022-05-27 22:12:00 82 mm[Hg] [facility] Heart rate 2022-05-27 22:12:00 85 /min [facility] Body height 2022-05-27 22:12:00 160 cm [facility] Body weight 2022-05-27 22:12:00 86.183 kg [facility] BMI 2022-05-27 22:12:00 33.66 kg/m2 [facility] Oxygen saturation in Arterial blood by Pulse oximetry 2022-05-27 22:12:00 93 /min [facility] Systolic blood pressure 2022-01-31 21:53:00 128 mm[Hg] [facility] Diastolic blood pressure 2022-01-31 21:53:00 62 mm[Hg] [facility] Heart rate 2022-01-31 21:53:00 84 /min [facility] Body temperature 2022-01-31 21:53:00 36.39 Gloria [facility] Respiratory rate 2022-01-31 21:53:00 18 /min [facility] Body height 2022-01-31 21:53:00 167.6 cm [facility] Body weight 2022-01-31 21:53:00 84.851 kg [facility] BMI 2022-01-31 21:53:00 30.19 kg/m2 [facility] Oxygen saturation in Arterial blood by Pulse oximetry 2022-01-31 21:53:00 95 /min [facility] BP Systolic 2024-05-16 14:35:00 121 mm[Hg] Step hen F Christopher BP Diastolic 2024-05-16 14:35:00 60 mm[Hg] Ignacio phen F Christopher Weight Measured 2024-05-16 14:35:00 188.40 pounds Surendra F Christopher Height Measured 2024-05-16 14:35:00 65.00 inches Surendra F [facility] Body Temperature 2024-05-16 14:35:00 98.20 degrees Surendra F Christopher Heart Rate 2024-05-16 14:35:00 62.00 /min Malia en F Christopher Respiratory Rate 2024-05-16 14:35:00 Surendra F Christopher BP Systolic 2024-02-11 10:15:00 Step hen F Christopher BP Diastolic 2024-02-11 10:15:00 Ignacio phen F Christopher Weight Measured 2024-02-11 10:15:00 Surendra F Christopher Height Measured 2024-02-11 10:15:00 65.00 inches Surendra F Christopher Body Temperature 2024-02-11 10:15:00 Surendra F Christopher Heart Rate 2024-02-11 10:15:00 Malia en F Christopher Respiratory Rate 2024-02-11 10:15:00 Surendra F Christopher BP Systolic 2023-12-10 15:50:00 Step hen F Christopher BP Diastolic 2023-12-10 15:50:00 Ignacio phen F Christopher Weight Measured 2023-12-10 15:50:00 Surendra F Christopher Height Measured 2023-12-10 15:50:00 Surendra F Christopher Body Temperature 2023-12-10 15:50:00 Surendra F Christopher Heart Rate 2023-12-10 15:50:00 Malia en F Christopher Respiratory Rate 2023-12-10 15:50:00 Surendra F Christopher BP Systolic 2023-07-14 09:08:00 Step hen F Christopher BP Diastolic 2023-07-14 09:08:00 Ignacio phen F Christopher Weight Measured 2023-07-14 09:08:00 Surendra F Christopher Height Measured 2023-07-14 09:08:00 Surendra F Christopher Body Temperature 2023-07-14 09:08:00 Surendra F Christopher Heart Rate 2023-07-14 09:08:00 Malia en F Christopher Respiratory Rate 2023-07-14 09:08:00 Surendra F Christopher BP Systolic 2023-04-29 11:46:00 116 mm[Hg] Step hen F [facility] BP Diastolic 2023-04-29 11:46:00 63 mm[Hg] Ignacio phen F Christopher Weight Measured 2023-04-29 11:46:00 Surendra F Christopher Height Measured 2023-04-29 11:46:00 65.05 inches Surendra F Christopher Body Temperature 2023-04-29 11:46:00 97.60 degrees Surendra F Christopher Heart Rate 2023-04-29 11:46:00 67.00 /min Malia en F Christopher Respiratory Rate 2023-04-29 11:46:00 Surendra F Christopher Systolic blood pressure 2023-02-06 16:48:00 181 mm[Hg] [place] [facility] Diastolic blood pressure 2023-02-06 16:48:00 125 mm[Hg] [facility] Heart rate 2023-02-06 16:48:00 100 /min [facility] Respiratory rate 2023-02-06 16:48:00 14 /min [facility] Oxygen saturation in Arterial blood by Pulse oximetry 2023-02-06 16:48:00 95 /min [facility] Body temperature 2023-02-06 16:00:00 36.17 Gloria [facility] Body weight 2023-02-05 09:00:00 96.1 kg [facility] BMI 2023-02-05 09:00:00 34.21 kg/m2 [facility] Body height 2023-02-03 03:35:00 167.6 cm [facility] BP Systolic 2022-12-18 17:04:00 100 mm[Hg] Step hen F Christopher BP Diastolic 2022-12-18 17:04:00 59 mm[Hg] Ignacio phen F Christopher Weight Measured 2022-12-18 17:04:00 Surendra F Christopher Height Measured 2022-12-18 17:04:00 65.05 inches Surendra F Christopher Body Temperature 2022-12-18 17:04:00 97.80 degrees Surendra F Christopher Heart Rate 2022-12-18 17:04:00 74.00 /min Malia en F Christopher Respiratory Rate 2022-12-18 17:04:00 Surendra F Christopher BP Systolic 2022-08-05 15:20:00 154 mm[Hg] Step hen F Christopher BP Diastolic 2022-08-05 15:20:00 80 mm[Hg] Ignacio phen F Christopher Weight Measured 2022-08-05 15:20:00 Surendra F Christopher Height Measured 2022-08-05 15:20:00 65.00 inches Surendra F Christopher Body Temperature 2022-08-05 15:20:00 97.40 degrees Surendra F Christopher Heart Rate 2022-08-05 15:20:00 72.00 /min Malia en F Chritsopher Respiratory Rate 2022-08-05 15:20:00 Surendra F Christopher BP Systolic 2022-04-03 13:31:00 130 mm[Hg] Step hen F Christopher BP Diastolic 2022-04-03 13:31:00 75 mm[Hg] Ignacio phen F Christopher Weight Measured 2022-04-03 13:31:00 190.21 pounds Surendra F Christopher Height Measured 2022-04-03 13:31:00 65.00 inches Surendra F Christopher Body Temperature 2022-04-03 13:31:00 97.30 degrees Surendra F Christopher Heart Rate 2022-04-03 13:31:00 69.00 /min Malia en F Christopher Respiratory Rate 2022-04-03 13:31:00 Surendra F Christopher BP Systolic 2022-02-18 16:40:00 141 mm[Hg] Step hen F Christopher BP Diastolic 2022-02-18 16:40:00 66 mm[Hg] Ignacio phen F Christopher Weight Measured 2022-02-18 16:40:00 190.21 pounds Surendra F Christopher Height Measured 2022-02-18 16:40:00 65.00 inches Surendra F Christopher Body Temperature 2022-02-18 16:40:00 98.00 degrees Surendra F Christopher Heart Rate 2022-02-18 16:40:00 91.00 /min Malia en F Christopher Respiratory Rate 2022-02-18 16:40:00 16.00 /min Surendra F Christopher BP Systolic 2021-02-28 10:18:00 Step hen F Christopher BP Diastolic 2021-02-28 10:18:00 Ignacio phen F Christopher Weight Measured 2021-02-28 10:18:00 183.00 pounds Surendra F Christopher Height Measured 2021-02-28 10:18:00 65.00 inches Surendra F Christopher Body Temperature 2021-02-28 10:18:00 Surendra F Christopher Heart Rate 2021-02-28 10:18:00 Malia en F Christopher Respiratory Rate 2021-02-28 10:18:00 Surendra F Christopher BP Systolic 2020-12-25 17:03:00 123 mm[Hg] Step hen F Christopher BP Diastolic 2020-12-25 17:03:00 53 mm[Hg] Ignacio phen F Christopher Weight Measured 2020-12-25 17:03:00 183.00 pounds Surendra F Christopher Height Measured 2020-12-25 17:03:00 65.00 inches Surendra F Christopher Body Temperature 2020-12-25 17:03:00 97.70 degrees Surendra F Christopher Heart Rate 2020-12-25 17:03:00 86.00 /min Malia White Respiratory Rate 2020-12-25 17:03:00 Surendra White BP Systolic 2020-08-15 16:24:00 121 mm[Hg] Jason White BP Diastolic 2020-08-15 16:24:00 52 mm[Hg] Ignacio White Weight Measured 2020-08-15 16:24:00 195.20 pounds Surendra White Height Measured 2020-08-15 16:24:00 65.00 inches Surendra White Body Temperature 2020-08-15 16:24:00 97.50 degrees Surendra White Heart Rate 2020-08-15 16:24:00 82.00 /min Malia White Respiratory Rate 2020-08-15 16:24:00 Surendra White Procedures Procedure Date / Time Performed Performing Clinician Source POCT GLUCOSE (AUTOMATED) 2024-06-08 22:19:00 Rosa M Roman [facility] POCT GLUCOSE (AUTOMATED) 2024-06-08 17:27:00 Rosa M Roman [facility] POCT GLUCOSE (AUTOMATED) 2024-06-08 13:19:00 Rosa M Roman [facility] POCT GLUCOSE (AUTOMATED) 2024-06-08 02:01:00 Rosa M Roman [facility] POCT GLUCOSE (AUTOMATED) 2024-06-07 22:20:00 Rosa M Roman [facility] POCT GLUCOSE (AUTOMATED) 2024-06-07 17:25:00 Rosa M Roman [facility] POCT GLUCOSE (AUTOMATED) 2024-06-07 13:32:00 Rosa M Roman [facility] POCT GLUCOSE (AUTOMATED) 2024-06-07 02:10:00 Rosa M Roman [facility] POCT GLUCOSE (AUTOMATED) 2024-06-06 22:12:00 Rosa M Roman [facility] POCT GLUCOSE (AUTOMATED) 2024-06-06 17:51:00 Rosa M Roman [facility] POCT GLUCOSE (AUTOMATED) 2024-06-06 14:01:00 Rosa M Roman [facility] BASIC METABOLIC PANEL (NA, K, CL, CO2, GLUCOSE, BUN, CREATININE, CA) 2024-06-06 09:32:00 Rc [facility] CBC WITH DIFF 2024-06-06 09:32:00 Rc [facility] POCT GLUCOSE (AUTOMATED) 2024-06-06 03:50:00 Rosa M Roman [facility] POCT GLUCOSE (AUTOMATED) 2024-06-05 22:24:[facility] 2024-06-05 17:44:00 Rosa M Roman [facility] POCT GLUCOSE (AUTOMATED) 2024-06-05 13:36:00 Rosa M Roman [facility] PHOSPHORUS 2024-06-05 09:49:00 Rc [facility] MAGNESIUM 2024-06-05 09:49:00 [facility]IC METABOLIC PANEL (NA, K, CL, CO2, GLUCOSE, BUN, CREATININE, CA) 2024-06-05 09:49:00 Rc [facility] CBC WITHOUT DIFF 2024-06-05 09:49:00 [facility] POCT GLUCOSE (AUTOMATED) 2024-06-05 02:10:00 Rosa M Roman [facility] POCT GLUCOSE (AUTOMATED) 2024-06-04 22:24:00 Rosa M Roman [facility] POCT GLUCOSE (AUTOMATED) 2024-06-04 17:27:00 Rosa M Roman [facility] POCT GLUCOSE (AUTOMATED) 2024-06-04 13:39:00 Rosa M Roman [facility] POCT GLUCOSE (AUTOMATED) 2024-06-04 11:19:00 Rosa M Roman ramandeep [facility] PHOSPHORUS 2024-06-04 09:21:00 Angel Luis Rangel [facility] MAGNESIUM 2024-06-04 09:21:00 Angel Luis Rangel [facility] BASIC METABOLIC PANEL (NA, K, CL, CO2, GLUCOSE, BUN, CREATININE, CA) 2024-06-04 09:21:00 Angel Luis Rangel [facility] CBC WITHOUT DIFF 2024-06-04 09:21:00 Angel Luis Rangel [facility] POCT GLUCOSE (AUTOMATED) 2024-06-04 01:59:00 Rosa M Roman [facility] POCT GLUCOSE (AUTOMATED) 2024-06-03 22:21:00 Rosa M Roman [facility] POCT GLUCOSE (AUTOMATED) 2024-06-03 17:31:00 Rosa M Roman [facility] POCT GLUCOSE (AUTOMATED) 2024-06-03 13:38:00 Rosa M Roman [facility] BASIC METABOLIC PANEL (NA, K, CL, CO2, GLUCOSE, BUN, CREATININE, CA) 2024-06-03 10:53:00 Chas German [facility] CBC WITH DIFF 2024-06-03 10:53:00 Chas German [facility] POCT GLUCOSE (AUTOMATED) 2024-06-03 02:13:00 Rosa M Roman [facility] POCT GLUCOSE (AUTOMATED) 2024-06-02 22:19:00 Rosa M Roman [facility] POCT GLUCOSE (AUTOMATED) 2024-06-02 17:15:00 Rosa M Roman [facility] POCT GLUCOSE (AUTOMATED) 2024-06-02 13:41:00 Rosa M Roman [facility] MAGNESIUM 2024-06-02 10:00:00 Chas German [facility] BASIC METABOLIC PANEL (NA, K, CL, CO2, GLUCOSE, BUN, CREATININE, CA) 2024-06-02 10:00:00 Chas German [facility] CBC WITH DIFF 2024-06-02 10:00:00 Chas German [facility] POCT GLUCOSE (AUTOMATED) 2024-06-02 02:29:00 Rosa M Roman [facility] POCT GLUCOSE (AUTOMATED) 2024-06-01 22:39:00 Rosa M Roman [facility] POCT GLUCOSE (AUTOMATED) 2024-06-01 17:32:00 Rosa M Roman [facility] POCT GLUCOSE (AUTOMATED) 2024-06-01 14:13:00 Rosa M Roman [facility] POCT GLUCOSE (AUTOMATED) 2024-06-01 13:41:00 Rosa M Roman [facility] MAGNESIUM 2024-06-01 09:41:00 Berto Roman [facility] C-REACTIVE PROTEIN 2024-06-01 09:41:00 [facility]EL (NA, K, CL, CO2, GLUCOSE, BUN, CREATININE, CA) 2024-06-01 09:41:00 [facility] 2024-06-01 09:41:00 Berto Roman [facility] POCT GLUCOSE (AUTOMATED) 2024-06-01 07:20:00 Rosa M Roman [facility] POCT GLUCOSE (AUTOMATED) 2024-06-01 01:32:00 Rosa M Roman [facility] POCT GLUCOSE (AUTOMATED) 2024-05-31 22:30:00 Rosa M Roman ramandeep [facility] POCT GLUCOSE (AUTOMATED) 2024-05-31 13:43:00 Rosa M Roman [facility] ACUTE CARE ARTERIAL BLOOD GAS 2024-05-31 12:33:00 Angel Luis Rangel [facility] XR CHEST 1 VW 2024-05-31 10:52:51 [facility] 2024-05-31 09:58:00 Berto Roman [facility] BASIC METABOLIC PANEL (NA, K, CL, CO2, GLUCOSE, BUN, CREATININE, CA) 2024-05-31 09:58:00 [facility] 2024-05-31 09:58:00 [facility] 2024-05-31 02:36:00 Rosa M Roman [facility] POCT GLUCOSE (AUTOMATED) 2024-05-30 22:54:00 Rosa M Roman [facility] POCT GLUCOSE (AUTOMATED) 2024-05-30 21:49:00 Rosa M Roman [facility] POCT GLUCOSE (AUTOMATED) 2024-05-30 17:40:00 Rosa M Roman [facility] POCT GLUCOSE (AUTOMATED) 2024-05-30 13:42:00 Rosa M Roman [facility] MAGNESIUM 2024-05-30 08:29:00 Berto Roman [facility] COMP. METABOLIC PANEL ([id number]) 2024-05-30 08:29:00 [facility] 2024-05-30 08:29:00 [facility] N-TERMINAL PRO-BNP 2024-05-30 08:29:00 [facility] PO[facility]SE (AUTOMATED) 2024-05-30 01:44:00 Rosa M Roman [facility] POCT GLUCOSE (AUTOMATED) 2024-05-29 22:24:00 Rosa M Roman [facility] POCT GLUCOSE (AUTOMATED) 2024-05-29 17:20:00 Rosa M Roman [facility] POCT GLUCOSE (AUTOMATED) 2024-05-29 13:49:00 Rosa M Roman [facility] XR CHEST 1 VW 2024-05-29 12:31:41 Flor[facility] MAGNESIUM 2024-05-29 09:50:00 Berto Roman [facility] BASIC METABOLIC PANEL (NA, K, CL, CO2, GLUCOSE, BUN, CREATININE, CA) 2024-05-29 09:50:00 [facility]FF 2024-05-29 09:50:00 [facility] POCT GLUCOSE (AUTOMATED) 2024-05-29 02:26:00 Rosa M Roman [facility] POCT GLUCOSE (AUTOMATED) 2024-05-29 00:35:00 Rosa M Roman [facility] POCT GLUCOSE (AUTOMATED) 2024-05-28 23:02:00 Rosa M Roman [facility] POCT GLUCOSE (AUTOMATED) 2024-05-28 21:13:00 Rosa M Roman [facility] POCT GLUCOSE (AUTOMATED) 2024-05-28 17:30:00 Rosa M Roman [facility] POCT GLUCOSE (AUTOMATED) 2024-05-28 13:34:00 Rosa M Roman [facility] BASIC METABOLIC PANEL (NA, K, CL, CO2, GLUCOSE, BUN, CREATININE, CA) 2024-05-28 10:07:00 [facility] 2024-05-28 10:07:00 Berto Roman [facility] POCT GLUCOSE (AUTOMATED) 2024-05-28 02:23:00 Rosa M Roman [facility] POCT GLUCOSE (AUTOMATED) 2024-05-27 21:32:00 Rosa M Roman [facility] POCT GLUCOSE (AUTOMATED) 2024-05-27 17:53:00 Rosa M Roman ramandeep [facility] POCT GLUCOSE (AUTOMATED) 2024-05-27 14:07:00 Rosa M Roman [facility] MAGNESIUM 2024-05-27 09:19:00 [facility]EL (NA, K, CL, CO2, GLUCOSE, BUN, CREATININE, CA) 2024-05-27 09:19:00 [facility]FF 2024-05-27 09:19:00 [facility]-BNP 2024-05-27 09:19:00 Jessie [facility] POCT GLUCOSE (AUTOMATED) 2024-05-27 02:09:00 Rosa M Roman [facility] HB ECG ROUTINE & RHYTHM STRIP 2024-05-27 00:33:36 Jessie [facility] MRSA / MSSA SCREEN BY CLARIBEL QUINTANILLA 2024-05-27 00:28:00 Berto Roman [facility] POCT GLUCOSE (AUTOMATED) 2024-05-26 22:39:00 Rosa M Roman [facility] POCT GLUCOSE (AUTOMATED) 2024-05-26 21:16:00 Rosa M Roman [facility] POCT GLUCOSE (AUTOMATED) 2024-05-26 17:42:00 Rosa M Roman [facility] POCT GLUCOSE (AUTOMATED) 2024-05-26 13:38:00 Rosa M Roman [facility] SPUTUM CULTURE 2024-05-26 10:21:00 [facility]IC METABOLIC PANEL (NA, K, CL, CO2, GLUCOSE, BUN, CREATININE, CA) 2024-05-26 10:13:00 [facility] 2024-05-26 10:13:00 [facility] POCT GLUCOSE (AUTOMATED) 2024-05-26 06:08:00 Rosa M Roman [facility] POCT GLUCOSE (AUTOMATED) 2024-05-26 02:51:00 Rosa M Roman [facility] URINE CULTURE 2024-05-25 22:59:00 [facility] PO[facility]UCOSE (AUTOMATED) 2024-05-25 22:32:00 Rosa M Roman [facility] POCT GLUCOSE (AUTOMATED) 2024-05-25 17:20:00 Rosa M Roman [facility] POCT GLUCOSE (AUTOMATED) 2024-05-25 13:31:00 Rosa M Roman ramandeep [facility] BASIC METABOLIC PANEL (NA, K, CL, CO2, GLUCOSE, BUN, CREATININE, CA) 2024-05-25 10:21:00 Rc [facility] CBC WITH DIFF 2024-05-25 10:[facility]IN (A1C) 2024-05-25 10:21:00 [facility] 2024-05-25 10:21:00 Rc [facility] INFLUENZA A/B RSV COVID NAAT 2024-05-25 06:32:00 Rc [facility] LAB ONLY COVID INTERPRETATION 2024-05-25 06:32:[address] [facility] [address] THORAX WO CONTRAST 2024-05-25 03:31:31 Zachery Sexton [facility] URINALYSIS 2024-05-25 02:24:00 Jewel Sexton [facility] XR CHEST 1 VW 2024-05-25 01:40:36 Jewel Sexton [facility] CT HEAD WO CONTRAST 2024-05-25 01:40:13 Dominguez Sexton [facility] HB ECG ROUTINE & RHYTHM STRIP 2024-05-25 01:11:27 Jewel Sexton [facility] TROPONIN I 2024-05-25 01:07:00 Jewel Sexton [facility] COMP. METABOLIC PANEL ([id number]) 2024-05-25 01:07:00 Jewel Sexton [facility] CBC WITH DIFF 2024-05-25 01:07:00 Jewel Sexton [facility] N-TERMINAL PRO-BNP 2024-05-25 01:07:00 Darshan [facility] TED INTRA OP ONLY (GUIDANCE) 2024-03-10 16:35:34 Neema [facility] CATH PROCEDURE LOG 2024-03-10 14:44:24 Doctor Un assigned, [place] [facility] CATH PROCEDURE LOG 2024-03-10 14:44:24 Doctor Un assigned, [place] [facility] ELECTROPHYSIOLOGY PROCEDURE 2024-03-10 14:20:00 [facility] ELECTROPHYSIOLOGY PROCEDURE 2024-03-10 14:20:00 [facility] PREPARE PACKED RBC 2024-03-10 13:46:01 [facility] HB ABO GROUPING 2024-03-10 12:53:00 Gloria Leos ea [facility] HB ABO GROUPING 2024-03-10 12:53:00 Gloria Leos ea [facility] POCT GLUCOSE (AUTOMATED) 2023-12-30 21:30:00 Nita Sexton [facility] POCT GLUCOSE (AUTOMATED) 2023-12-30 20:50:00 Nita Sexton [facility] POCT GLUCOSE (AUTOMATED) 2023-12-30 19:52:00 Nita Sexton [facility] POCT GLUCOSE (AUTOMATED) 2023-12-30 19:05:00 Nita Sexton [facility] AC PANEL 21 + LACTIC ACID 2023-12-30 17:41:00 Jewel Sexton [facility] COMP. METABOLIC PANEL ([id number]) 2023-12-30 17:40:00 [facility] 2023-12-30 17:40:00 Darshan [facility] URINALYSIS 2023-12-30 17:40:00 Jewel Sexton [facility] CRITICAL CARE 2023-12-30 16:44:00 Sexton [facility] POCT GLUCOSE (AUTOMATED) 2023-10-26 21:32:00 Valerie Rangel [facility] POCT GLUCOSE (AUTOMATED) 2023-10-26 16:48:00 Valerie Rangel [facility] POCT GLUCOSE (AUTOMATED) 2023-10-26 12:44:00 Valerie Rangel [facility] MAGNESIUM 2023-10-26 09:01:00 Alexis Rushing [facility] BASIC METABOLIC PANEL (NA, K, CL, CO2, GLUCOSE, BUN, CREATININE, CA) 2023-10-26 09:01:00 Alexis Rushing [facility] CBC WITH DIFF 2023-10-26 09:01[facility]00 [facility] 2023-10-26 01:02:00 Valerie Rangel [facility] POCT GLUCOSE (AUTOMATED) 2023-10-25 21:26:00 Valerie Rangel [facility] POCT GLUCOSE (AUTOMATED) 2023-10-25 16:45:00 Valerie Rangel [facility] POCT GLUCOSE (AUTOMATED) 2023-10-25 12:50:00 Valerie Rangel. [facility] MAGNESIUM 2023-10-25 09:33:00 Alexis Rushing [facility] BASIC METABOLIC PANEL (NA, K, CL, CO2, GLUCOSE, BUN, CREATININE, CA) 2023-10-25 09:33:00 Alexis Rushing [facility] CBC WITH DIFF 2023-10-25 09:33:00 Сергей [facility] PROCALCITONIN 2023-10-25 09:33:00 Сергей [facility] POCT GLUCOSE (AUTOMATED) 2023-10-25 04:45:00 Valerie Rangel [facility] POCT GLUCOSE (AUTOMATED) 2023-10-25 01:42:00 Valerie Rangle [facility] POCT GLUCOSE (AUTOMATED) 2023-10-24 21:20:00 Valerie Rangel [facility] POCT GLUCOSE (AUTOMATED) 2023-10-24 16:32:00 Valerie Rangel [facility] POCT GLUCOSE (AUTOMATED) 2023-10-24 12:34:00 Valerie Rangel [facility] BASIC METABOLIC PANEL (NA, K, CL, CO2, GLUCOSE, BUN, CREATININE, CA) 2023-10-24 09:14:00 Valeria Rushing [facility] CBC WITHOUT DIFF 2023-10-24 09:14:00 Valeria Rushing [facility] POCT GLUCOSE (AUTOMATED) 2023-10-24 05:28:00 Valerie Rangel [facility] POCT GLUCOSE (AUTOMATED) 2023-10-24 01:57:00 Valerie Rangel [facility] POCT GLUCOSE (AUTOMATED) 2023-10-23 21:24:00 Valerie Rangel [facility] POCT GLUCOSE (AUTOMATED) 2023-10-23 18:01:00 Valerie Rangel [facility] POCT GLUCOSE (AUTOMATED) 2023-10-23 16:39:00 Valerie Rangel [facility] POCT GLUCOSE (AUTOMATED) 2023-10-23 12:40:00 Valerie Rangel [facility] XR CHEST 1 VW 2023-10-23 09:16:44 [facility]OLIC PAN[facility] (NA, K, CL, CO2, GLUCOSE, BUN, CREATININE, CA) 2023-10-23 08:58:00 Angel Luis Rangel [facility] COMP. METABOLIC PANEL ([id number]) 2023-10-23 08:58:00 Angel Luis Rangel [facility] CBC WITH DIFF 2023-10-23 08:58:00 [facility] PO[facility]SE (AUTOMATED) 2023-10-23 01:09:00 Valerie Rangel [facility] POCT GLUCOSE (AUTOMATED) 2023-10-22 21:27:00 Valerie Rangel [facility] MR BRAIN WO CONTRAST 2023-10-22 19:24:00 Ilya Rangel [facility] POCT GLUCOSE (AUTOMATED) 2023-10-22 16:41:00 Valerie Rangel [facility] TRANSTHORACIC ECHO (TTE) COMPLETE 2023-10-22 15:24:00 Angel Luis Rangel [facility] POCT GLUCOSE (AUTOMATED) 2023-10-22 12:28:00 Valerie Rangel [facility] LIPID PANEL ([id number])(TOTAL CHOLESTEROL, TRIGLYCERIDES, HDL) 2023-10-22 08:09:00 Angel Luis Rangel [facility] GLYCOSYLATED HEMOGLOBIN (A1C) 2023-10-22 08:09:00 Angel Luis Rangel [facility] POCT GLUCOSE (AUTOMATED) 2023-10-22 07:27:00 Valerie Rangel [facility] CT HEAD WO CONTRAST 2023-10-22 04:54:50 Vinh Foreman [facility] XR CHEST 1 VW 2023-10-22 03:51:46 Vinh Foreman [facility] HB ECG ROUTINE & RHYTHM STRIP 2023-10-22 03:42:41 Vinh Foreman [facility] CK (CREATINE KINASE) + MB 2023-10-22 03:30:00 Mary Carmen Foreman [facility] LIPASE 2023-10-22 03:30:00 Vinh Foreman [facility] TROPONIN I 2023-10-22 03:30:00 Vinh Foreman [facility] COMP. METABOLIC PANEL ([id number]) 2023-10-22 03:30:00 Vinh Foreman [facility] CBC WITH DIFF 2023-10-22 03:30:00 Vinh Foreman [facility] URINALYSIS 2023-10-22 03:30:00 Vinh Foreman [facility] URINE CULTURE 2023-10-22 03:30:00 Vinh [facility] REFERRAL- REQUEST/RESPONSE 2023-07-28 05:01:00 Nita boucher Unassigned, [place] [facility] CT ABDOMEN PELVIS W CONTRAST 2023-07-10 02:15:14 Josue Hodges [facility] URINALYSIS 2023-07-10 01:23:00 Josue Hodges [facility] LIPASE 2023-07-10 01:07:00 Josue Hodges [facility] COMP. METABOLIC PANEL ([id number]) 2023-07-10 01:07:00 Josue Hodges [facility] CBC WITH DIFF 2023-07-10 01:07:00 Josue Hodges [facility] NOTICE OF PRIVACY PRACTICES 2023-07-10 00:28:49 Doctor Unassigned, [place] [facility] CONSENT/REFUSAL FOR DIAGNOSIS AND TREATMENT 2023-07-10 00:28:23 Doctor Unassigned, [place] [facility] URINALYSIS 2023 21:21:00 Calrk Julian [facility] MAGNESIUM 2023 20:57:00 Clark Julian [facility] TROPONIN I 2023 20:57:00 Clark Julian [facility] COMP. METABOLIC PANEL ([id number]) 2023 20:57:00 Clark Julian [facility] CBC WITH DIFF 2023 20:57:00 Clark Julian [facility] RAPID INFLUENZA A/B 2023 20:57:00 Clark Julian [facility] N-TERMINAL PRO-BNP 2023 20:57:00 Clark Julian [facility] COVID-19 (ID NOW RAPID TESTING) 2023 20:57:00 Clark Julian [facility] XR CHEST 1 VW 2023 20:55:59 [facility] CONSENT/REFUSAL FOR DIAGNOSIS AND TREATMENT 2023 18:53:10 Doctor Unassigned, [place] [facility] NO SHOW OR MISSED APPOINTMENT POLICY ACKNOWLEDGEMENT 2023-03-23 19:38:23 Doctor Unassigned, [place] [facility] POCT GLUCOSE (AUTOMATED) 2023-02-18 17:04:00 Abu Ather ah, [facility] POCT GLUCOSE (AUTOMATED) 2023-02-18 13:07:00 Abu Ather ah, [facility] POCT GLUCOSE (AUTOMATED) 2023-02-18 02:25:00 Abu Ather ah, [facility] POCT GLUCOSE (AUTOMATED) 2023-02-17 21:57:00 Abu Ather ah, [facility] POCT GLUCOSE (AUTOMATED) 2023-02-17 16:33:00 Abu Ather ah, [facility] POCT GLUCOSE (AUTOMATED) 2023-02-17 12:43:00 Abu Ather ah, [facility] POCT GLUCOSE (AUTOMATED) 2023-02-17 02:02:00 Abu Ather ah, [facility] POCT GLUCOSE (AUTOMATED) 2023-02-16 22:05:00 Abu Ather ah, [facility] POCT GLUCOSE (AUTOMATED) 2023-02-16 16:32:00 Abu Ather ah, [facility] POCT GLUCOSE (AUTOMATED) 2023-02-16 14:05:00 Abu Ather ah, [facility] POCT GLUCOSE (AUTOMATED) 2023-02-16 11:28:00 Abu Ather ah, [facility] POCT GLUCOSE (AUTOMATED) 2023-02-16 05:16:00 Abu Ather ah, [facility] POCT GLUCOSE (AUTOMATED) 2023-02-16 01:27:00 Abu Ather ah, [facility] POCT GLUCOSE (AUTOMATED) 2023-02-15 22:30:00 Abu Ather ah, [facility] POCT GLUCOSE (AUTOMATED) 2023-02-15 16:56:00 Abu Ather ah, [facility] POCT GLUCOSE (AUTOMATED) 2023-02-15 11:06:00 Abu Ather ah, [facility] BASIC METABOLIC PANEL (NA, K, CL, CO2, GLUCOSE, BUN, CREATININE, CA) 2023-02-15 09:15:00 Ana Paula Berry [facility] CBC WITH DIFF 2023-02-15 09:15:00 Ana Paula Berry [facility] N-TERMINAL PRO-BNP 2023-02-15 09:15:00 Lorri Arevalo [facility] POCT GLUCOSE (AUTOMATED) 2023-02-15 05:15:00 Abu Ather ah, [facility] POCT GLUCOSE (AUTOMATED) 2023-02-15 01:02:00 Abu Ather ah, [facility] POCT GLUCOSE (AUTOMATED) 2023-02-14 21:51:00 Abu Ather ah, [facility] POCT GLUCOSE (AUTOMATED) 2023-02-14 16:20:00 Abu Ather ah, [facility] POCT GLUCOSE (AUTOMATED) 2023-02-14 12:00:00 Abu Ather ah, [facility] PHOSPHORUS 2023-02-14 08:44:00 Whitney [facility] MAGNESIUM 2023-02-14 08:44[facility] (NA, K, CL, CO2, GLUCOSE, BUN, CREATININE, CA) 2023-02-14 08:44:00 Whitney [facility] CBC WITH DIFF 2023-02-14 08:44:00 [facility] POCT GLUCOSE (AUTOMATED) 2023-02-14 08:33:00 Abu Ather ah, [facility] POCT GLUCOSE (AUTOMATED) 2023-02-14 04:53:00 Abu Ather ah, [facility] POCT GLUCOSE (AUTOMATED) 2023-02-14 02:11:00 Abu Ather ah, [facility] POCT GLUCOSE (AUTOMATED) 2023-02-13 21:59:00 Abu Ather ah, [facility] POCT GLUCOSE (AUTOMATED) 2023-02-13 16:49:00 Abu Ather ah, [facility] POCT GLUCOSE (AUTOMATED) 2023-02-13 12:21:00 Abu Ather ah, [facility] PHOSPHORUS 2023-02-13 09:59:00 Edwin Gómez [facility] MAGNESIUM 2023-02-13 09:59:[address] [facility] BASIC METABOLIC PANEL (NA, K, CL, CO2, GLUCOSE, BUN, CREATININE, CA) 2023-02-13 09:59:00 Dalia [facility] CBC WITH DIFF 2023-02-13 09:59:00 [facility]ATED) 2023-02-13 09:02:00 Abu Ather ah, [facility] POCT GLUCOSE (AUTOMATED) 2023-02-13 05:05:00 Abu Ather ah, [facility] POCT GLUCOSE (AUTOMATED) 2023-02-13 01:23:00 Abu Ather ah, [facility] POCT GLUCOSE (AUTOMATED) 2023-02-12 22:31:00 Abu Ather ah, [facility] BASIC METABOLIC PANEL (NA, K, CL, CO2, GLUCOSE, BUN, CREATININE, CA) 2023-02-12 21:20:00 [facility] 2023-02-12 16:52:00 Abu Ather ah, [facility] POCT GLUCOSE (AUTOMATED) 2023-02-12 12:14:00 Abu Ather ah, [facility] XR CHEST 1 VW 2023-02-12 11:26:00 Ellen Biggs [facility] POCT GLUCOSE (AUTOMATED) 2023-02-12 09:04:00 Abu Ather ah, [facility] PHOSPHORUS 2023-02-12 07:33:[address] [facility] MAGNESIUM 2023-02-12 07:33:00 [facility] HEPATIC FUNCTION PANEL (16269) (ALB,T.PRO,BILI T,BU/BC,ALT,AST,ALK PHOS) 2023-02-12 07:33:00 Dianna Bailey [facility] BASIC METABOLIC PANEL (NA, K, CL, CO2, GLUCOSE, BUN, CREATININE, CA) 2023-02-12 07:33:00 Dalia [facility] CBC WITH DIFF 2023-02-12 07:33:00 Dalia [facility] POCT GLUCOSE (AUTOMATED) 2023-02-12 05:02:00 Abu Ather ah, [facility] POCT GLUCOSE (AUTOMATED) 2023-02-12 02:01:00 Abu Ather ah, [facility] POCT GLUCOSE (AUTOMATED) 2023-02-11 22:05:00 Abu Ather ah, [facility] POCT GLUCOSE (AUTOMATED) 2023-02-11 17:14:00 Abu Ather ah, [facility] POCT GLUCOSE (AUTOMATED) 2023-02-11 12:55:00 Abu Ather ah, [facility] PHOSPHORUS 2023-02-11 09:15:[address] [facility] MAGNESIUM 2023-02-11 09:15:00 [facility] HEPATIC FUNCTION PANEL (96819) (ALB,T.PRO,BILI T,BU/BC,ALT,AST,ALK PHOS) 2023-02-11 09:15:00 Leo [facility] BASIC METABOLIC PANEL (NA, K, CL, CO2, GLUCOSE, BUN, CREATININE, CA) 2023-02-11 09:15:00 [facility] CBC WITH DIFF 2023-02-11 09:15:00 [facility] N-TERMINAL PRO-BNP 2023-02-11 09:15:00 Nicolás Chopra [facility] POCT GLUCOSE (AUTOMATED) 2023-02-11 08:55:00 Abu Ather ah, [facility] POCT GLUCOSE (AUTOMATED) 2023-02-11 04:43:00 Abu Ather ah, [facility] POCT GLUCOSE (AUTOMATED) 2023-02-11 02:04:00 Abu Ather ah, [facility] POCT GLUCOSE (AUTOMATED) 2023-02-10 21:17:00 Abu Ather ah, [facility] US ABDOMEN LIMITED WITH DOPPLER 2023-02-10 19:26:12 Leo [facility] HEPATITIS B SURFACE ANTIBODY 2023-02-10 18:58:00 Leo [facility] HEPATITIS B SURFACE ANTIGEN 2023-02-10 18:58:00 Leo [facility] HCV ANTIBODY 2023-02-10 18:58:[address] [facility] HEPATITIS A VIRUS ANTIBODY IGM 2023-02-10 18:58:00 Leo [facility] HEPATITIS B CORE ANTIBODY IGM 2023-02-10 18:58:00 Dianna Bailey [facility] HAV ANTIBODY (IGG AND IGM) 2023-02-10 18:58:00 Dianna Bailey [facility] POCT GLUCOSE (AUTOMATED) 2023-02-10 17:15:00 Abu Ather ah, [facility] XR CHEST 1 VW 2023-02-10 13:25:00 Ellen Biggs [facility] POCT GLUCOSE (AUTOMATED) 2023-02-10 13:13:00 Abu Ather ah, [facility] HEPATIC FUNCTION PANEL ([id number]) (ALB,T.PRO,BILI T,BU/BC,ALT,AST,ALK PHOS) 2023-02-10 10:22:00 [facility] PANEL (NA, K, CL, CO2, GLUCOSE, BUN, CREATININE, CA) 2023-02-10 10:22:00 Gurwinder Raymond [facility] CBC WITH DIFF 2023-02-10 10:22:00 [facility] 2023-02-10 08:47:00 Abu Ather ah, [facility] POCT GLUCOSE (AUTOMATED) 2023-02-10 04:46:00 Abu Ather ah, [facility] POCT GLUCOSE (AUTOMATED) 2023-02-10 01:12:00 Abu Ather ah, [facility] POCT GLUCOSE (AUTOMATED) 2023-02-09 20:57:00 Abu Ather ah, [facility] POCT GLUCOSE (AUTOMATED) 2023-02-09 16:45:00 Abu Ather ah, [facility] DUPLEX VENOUS LEGS BILATERAL - BY VASCULAR LAB 2023-02-09 15:15:59 [facility] 2023-02-09 13:02:00 Abu Ather ah, [facility] BASIC METABOLIC PANEL (NA, K, CL, CO2, GLUCOSE, BUN, CREATININE, CA) 2023-02-09 10:22:00 [facility] 2023-02-09 10:22:00 Gurwinder Raymond [facility] POCT GLUCOSE (AUTOMATED) 2023-02-09 09:45:00 Abu Ather ah, [facility] POCT GLUCOSE (AUTOMATED) 2023-02-09 04:33:00 Abu Ather ah, [facility] POCT GLUCOSE (AUTOMATED) 2023-02-09 01:17:00 Abu Ather ah, [facility] POCT GLUCOSE (AUTOMATED) 2023-02-08 21:21:00 Abu Ather ah, [facility] HB ECG ROUTINE & RHYTHM STRIP 2023-02-08 17:05:19 [facility] 2023-02-08 16:33:00 Abu Ather ah, [facility] POCT GLUCOSE (AUTOMATED) 2023-02-08 12:35:00 Abu Ather ah, [facility] BASIC METABOLIC PANEL (NA, K, CL, CO2, GLUCOSE, BUN, CREATININE, CA) 2023-02-08 10:43:00 Jesse [facility] CBC WITH DIFF 2023-02-08 10:43:00 Jesse Nicolás [facility] POCT GLUCOSE (AUTOMATED) 2023-02-08 10:43:00 Abu Ather ah, [facility] POCT GLUCOSE (AUTOMATED) 2023-02-08 05:43:00 Abu Ather ah, [facility] POCT GLUCOSE (AUTOMATED) 2023-02-08 01:02:00 Abu Ather ah, [facility] POCT GLUCOSE (AUTOMATED) 2023-02-07 21:03:00 Abu Ather ah, [facility] TRANSTHORACIC ECHO (TTE) COMPLETE 2023-02-07 17:26:16 Jose Ramon Sumner [facility] MAGNESIUM 2023-02-07 17:06:[address] [facility] TROPONIN I 2023-02-07 17:06:[address] [facility] BASIC METABOLIC PANEL (NA, K, CL, CO2, GLUCOSE, BUN, CREATININE, CA) 2023-02-07 17:06:00 Adama Fajardo [facility] CBC WITH DIFF 2023-02-07 17:06:00 Adama Fajardo [facility] POCT GLUCOSE (AUTOMATED) 2023-02-07 16:43:00 Abu Ather ah, [facility] POCT GLUCOSE (AUTOMATED) 2023-02-07 12:28:00 Abu Ather ah, [facility] TROPONIN I 2023-02-07 10:55:00 TerminGurwinder morrell [facility] POCT GLUCOSE (AUTOMATED) 2023-02-07 09:38:00 Abu Ather ah, [facility] HB ECG ROUTINE & RHYTHM STRIP 2023-02-07 05:06:24 Terminpetros [facility] HB ECG ROUTINE & RHYTHM STRIP 2023-02-07 05:05:14 James Biggs [facility] COVID-19 (ID NOW RAPID TESTING) 2023-02-07 04:59:00 Abu Atherah, [facility] LAB ONLY COVID INTERPRETATION 2023-02-07 04:59:00 Abu Atherah, [facility] PHOSPHORUS 2023-02-07 04:57:00 TerminGurwinder morrell [facility] MAGNESIUM 2023-02-07 04:57:00 TerminGurwinder morrell [facility] TROPONIN I 2023-02-07 04:57:00 Gurwinder Raymond [facility] BASIC METABOLIC PANEL (NA, K, CL, CO2, GLUCOSE, BUN, CREATININE, CA) 2023-02-07 04:57:00 [facility] WITHOUT DIFF 2023-02-07 04:57:00 Segundo [facility] POCT GLUCOSE (AUTOMATED) 2023-02-07 04:55:00 Abu Ather ah, [facility] POCT GLUCOSE (AUTOMATED) 2023-02-07 00:52:00 Abu Ather ah, [facility] TROPONIN I 2023-02-06 23:04:00 Abu Carlos Alarcon [facility] POCT GLUCOSE (AUTOMATED) 2023-02-06 21:23:00 Abu Ather ah, Carlos [facility] POCT GLUCOSE (AUTOMATED) 2023-02-06 17:37:00 [facility] TROPONIN I 2023-02-06 17:06:00 [facility] 2023-02-06 16:01:00 [facility] 2023-02-06 16:01:00 [facility] ROUTINE & RHYTHM STRIP 2023-02-06 15:35:[address] [facility] N-TERMINAL PRO-BNP 2023-02-06 14:02:00 Antony [facility] N-TERMINAL PRO-BNP 2023-02-06 14:02:00 Antony Ricketts [facility] ACUTE CARE ARTERIAL BLOOD GAS 2023-02-06 13:38:00 Liliam [facility] ACUTE CARE ARTERIAL BLOOD GAS 2023-02-06 13:38:00 Liliam [facility] POCT GLUCOSE (AUTOMATED) 2023-02-06 13:09:00 Abu Ather ah, [facility] POCT GLUCOSE (AUTOMATED) 2023-02-06 13:09:00 Abu Ather ah, [facility] TROPONIN I 2023-02-06 11:50:[address] [facility] TROPONIN I 2023-02-06 11:50:[address] [facility] XR CHEST 1 VW 2023-02-06 07:01:00 James Biggs [facility] XR CHEST 1 VW 2023-02-06 07:01:00 James Biggs [facility] URINALYSIS MICROSCOPIC 2023-02-06 06:44:00 Jina Perez [facility] URINALYSIS MICROSCOPIC 2023-02-06 06:44:00 Jina Perez [facility] CBC WITH DIFF 2023-02-06 06:34:00 [facility] 2023-02-06 06:34:00 Biggs, [facility] AMMONIA, PLASMA 2023-02-06 06:34:00 Chris [facility] COMP. METABOLIC PANEL ([id number]) 2023-02-06 06:34:00 Chris [facility] BILI UNCONJUGATED/BILI CONJUG 2023-02-06 06:34:00 Leo [facility] MAGNESIUM 2023-02-06 06:34:00 Biggs [facility] AMMONIA, PLASMA 2023-02-06 06:34:00 Chris [facility] BILI UNCONJUGATED/BILI CONJUG 2023-02-06 06:34:00 Leo [facility] COMP. METABOLIC PANEL ([id number]) 2023-02-06 06:34:00 Chris [facility] CBC WITH DIFF 2023-02-06 06:34:00 Kal[facility]n [facility] AC PANEL 20 + LACTIC ACID 2023-02-06 06:26:00 [facility] AC PANEL 20 + LACTIC ACID 2023-02-06 06:26:00 Shaw[facility] POCT GLUCOSE (AUTOMATED) 2023-02-06 05:34:00 Abu Ather ah, [facility] POCT GLUCOSE (AUTOMATED) 2023-02-06 05:34:00 Abu Ather ah, [facility] POCT GLUCOSE (AUTOMATED) 2023-02-06 02:01:00 Abu Ather ah, [facility] POCT GLUCOSE (AUTOMATED) 2023-02-06 02:01:00 Abu Ather ah, [facility] POCT GLUCOSE (AUTOMATED) 2023-02-05 22:50:00 Abu Ather ah, [facility] POCT GLUCOSE (AUTOMATED) 2023-02-05 22:50:00 Abu Ather ah, [facility] POCT GLUCOSE (AUTOMATED) 2023-02-05 16:50:00 Abu Ather ah, [facility] POCT GLUCOSE (AUTOMATED) 2023-02-05 16:50:00 Abu Ather ah, [facility] PROTHROMBIN TIME / INR 2023-02-05 13:53:00 Mary Bailey [facility] PROTHROMBIN TIME / INR 2023-02-05 13:53:00 Mary Bailey [facility] POCT GLUCOSE (AUTOMATED) 2023-02-05 13:32:00 Abu Ather ah, [facility] POCT GLUCOSE (AUTOMATED) 2023-02-05 13:32:00 Abu Ather ah, [facility] CBC WITH DIFF 2023-02-05 10:12:00 [facility] BASIC METABOLIC PANEL (NA, K, CL, CO2, GLUCOSE, BUN, CREATININE, CA) 2023-02-05 10:12:[address] [facility] MAGNESIUM 2023-02-05 10:12:00 Kalyan [facility] MAGNESIUM 2023-02-05 10:12:00 [facility] BASIC METABOLIC PANEL (NA, K, CL, CO2, GLUCOSE, BUN, CREATININE, CA) 2023-02-05 10:12:[address] [facility] CBC WITH DIFF 2023-02-05 10:12:00 Biggs [facility] POCT GLUCOSE (AUTOMATED) 2023-02-05 09:32:00 Abu Ather ah, [facility] POCT GLUCOSE (AUTOMATED) 2023-02-05 09:32:00 Abu Ather ah, [facility] POCT GLUCOSE (AUTOMATED) 2023-02-05 04:18:00 Abu Ather ah, [facility] POCT GLUCOSE (AUTOMATED) 2023-02-05 04:18:00 Abu Ather ah, [facility] POCT GLUCOSE (AUTOMATED) 2023-02-05 02:02:00 Abu Ather ah, [facility] POCT GLUCOSE (AUTOMATED) 2023-02-05 02:02:00 Abu Ather ah, [facility] POCT GLUCOSE (AUTOMATED) 2023-02-04 21:31:00 Abu Ather ah, [facility] POCT GLUCOSE (AUTOMATED) 2023-02-04 21:31:00 Abu Ather ah, [facility] CBC WITH DIFF 2023-02-04 21:02:00 Abu Atherah, [facility] CBC WITH DIFF 2023-02-04 21:02:00 Abu Atherah, [facility] IR PARACENTESIS/PERITONECENTES IS WITH IMAGING 2023-02-04 19:54:12 Ellen Biggs [facility] POCT GLUCOSE (AUTOMATED) 2023-02-04 16:40:00 Abu Ather ah, [facility] POCT GLUCOSE (AUTOMATED) 2023-02-04 16:40:00 Abu Ather ah, [facility] XR CHEST 1 VW 2023-02-04 13:34:00 Abu Atherah, [facility] XR CHEST 1 VW 2023-02-04 13:34:00 Abu Ather, [facility] POCT GLUCOSE (AUTOMATED) 2023-02-04 13:01:00 Abu Ather ah, [facility] POCT GLUCOSE (AUTOMATED) 2023-02-04 13:01:00 Abu Ather ah, [facility] AMMONIA, PLASMA 2023-02-04 12:45:00 Abu Atherah, [facility] AMMONIA, PLASMA 2023-02-04 12:45:00 Abu Atherah, [facility] AC ABG + LACTIC ACID 2023-02-04 12:37:00 Albustami, [facility] AC ABG + LACTIC ACID 2023-02-04 12:37:00 Albustami, Om ar [facility] PROTHROMBIN TIME / INR 2023-02-04 11:39:00 Mary Bailey [facility] PROTHROMBIN TIME / INR 2023-02-04 11:39:00 Mary Bailey [facility] CBC WITH DIFF 2023-02-04 09:49:00 [facility] BASIC METABOLIC PANEL (NA, K, CL, CO2, GLUCOSE, BUN, CREATININE, CA) 2023-02-04 09:49:[address] [facility] MAGNESIUM 2023-02-04 09:49:00 Kalyan [facility] PHOSPHORUS 2023-02-04 09:49:00 [facility] PHOSPHORUS 2023-02-04 09:[facility]-04 09:49:00 Kalyan [facility] BASIC METABOLIC PANEL (NA, K, CL, CO2, GLUCOSE, BUN, CREATININE, CA) 2023-02-04 09:49:[address] [facility] CBC WITH DIFF 2023-02-04 09:49:00 Biggs, [facility] POCT GLUCOSE (AUTOMATED) 2023-02-04 09:19:00 Abu Ather ah, [facility] POCT GLUCOSE (AUTOMATED) 2023-02-04 09:19:00 Abu Ather ah, [facility] POCT GLUCOSE (AUTOMATED) 2023-02-04 03:56:00 Abu Ather ah, [facility] POCT GLUCOSE (AUTOMATED) 2023-02-04 03:56:00 Abu Ather ah, [facility] POCT GLUCOSE (AUTOMATED) 2023-02-04 02:15:00 Abu Ather ah, [facility] POCT GLUCOSE (AUTOMATED) 2023-02-04 02:15:00 Abu Ather ah, [facility] ABG+COOX+NA+K+GLU+CA2+ 2023-02-04 01:10:00 Abu Atherah , [facility] ABG+COOX+NA+K+GLU+CA2+ 2023-02-04 01:10:00 Abu Atherah , [facility] POCT GLUCOSE (AUTOMATED) 2023-02-04 00:51:00 Abu Robb mahoney [facility] POCT GLUCOSE (AUTOMATED) 2023-02-04 00:51:00 Abu Robb mahoney, [facility] BLOOD CULTURE SCREEN 2023-02-03 22:14:00 Leo [facility] BLOOD CULTURE SCREEN 2023-02-03 22:14:00 Leo [facility] ABG+COOX+NA+K+GLU+CA2+ 2023-02-03 22:10:00 Abu Agnes , [facility] ABG+COOX+NA+K+GLU+CA2+ 2023-02-03 22:10:00 Abu Agnes [facility] XR CHEST 1 VW 2023-02-03 21:56:00 Abu Agnes [facility] XR CHEST 1 VW 2023-02-03 21:56:00 AbCarlos Rocha [facility] BLOOD CULTURE SCREEN 2023-02-03 21:55:00 Leo [facility] BLOOD CULTURE SCREEN 2023-02-03 21:55:00 [facility] 2023-02-03 21:48:[address] [facility] BASIC METABOLIC PANEL (NA, K, CL, CO2, GLUCOSE, BUN, CREATININE, CA) 2023-02-03 21:48:00 Abu Agnes [facility] CBC WITH DIFF 2023-02-03 21:48:00 Abu Agnes Suzieeverardo [facility] BASIC METABOLIC PANEL (NA, K, CL, CO2, GLUCOSE, BUN, CREATININE, CA) 2023-02-03 21:48:00 Abu Agnes [facility] CBC WITH DIFF 2023-02-03 21:48:00 Abu Robbmaru Carlos [facility] FIBRINOGEN 2023-02-03 21:48:[address] [facility] POCT GLUCOSE (AUTOMATED) 2023-02-03 21:22:00 Abu Robb mahoney [facility] POCT GLUCOSE (AUTOMATED) 2023-02-03 21:22:00 Abu Ather ah, [facility] ABG+COOX+NA+K+GLU+CA2+ 2023-02-03 20:38:00 Abu Atherah , [facility] ABG+COOX+NA+K+GLU+CA2+ 2023-02-03 20:38:00 Abu Atherah , [facility] POCT GLUCOSE (AUTOMATED) 2023-02-03 17:22:00 Abu Ather ah, [facility] POCT GLUCOSE (AUTOMATED) 2023-02-03 17:22:00 Abu Ather ah, [facility] CBC WITH DIFF 2023-02-03 15:17:00 Abu Atherah, [facility] CBC WITH DIFF 2023-02-03 15:17:00 Abu [facility], [facility] PROTHROMBIN TIME / INR 2023-02-03 13:37:00 Mary Bailey [facility] PROTHROMBIN TIME / INR 2023-02-03 13:37:00 Mary Bailey [facility] POCT GLUCOSE (AUTOMATED) 2023-02-03 13:29:00 Abu Ather ah, [facility] POCT GLUCOSE (AUTOMATED) 2023-02-03 13:29:00 Abu Ather ah, [facility] BASIC METABOLIC PANEL (NA, K, CL, CO2, GLUCOSE, BUN, CREATININE, CA) 2023-02-03 09:34:00 Nicolás Molina [facility] MAGNESIUM 2023-02-03 09:34:00 Nicolás Molina [facility] PHOSPHORUS 2023-02-03 09:34:00 Nicolás Molina [facility] CBC WITHOUT DIFF 2023-02-03 09:34:00 Nicolás Molina [facility] IRON 2023-02-03 09:34:00 Nicolás Molina [facility] TOTAL IRON BINDING CAPACITY 2023-02-03 09:34:00 Zhanna yuan [facility] FERRITIN SERUM 2023-02-03 09:34:00 Jesse Nicolás [facility] VITAMIN B12, LEVEL 2023-02-03 09:34:00 Jesse [facility] FOLATE 2023-02-03 09:34:00 Nicolás Molina [facility] GLYCOSYLATED HEMOGLOBIN (A1C) 2023-02-03 09:34:00 Jesse [facility] PHOSPHORUS 2023-02-03 09:34:00 Nicolás Molina [facility] MAGNESIUM 2023-02-03 09:34:00 Jesse [facility] FERRITIN SERUM 2023-02-03 09:34:00 Nicolás Molina [facility] IRON 2023-02-03 09:34:00 Jesse Nicolás [facility] VITAMIN B12, LEVEL 2023-02-03 09:34:00 Jesse [facility] FOLATE 2023-02-03 09:34:00 Jesse Nicolás [facility] TOTAL IRON BINDING CAPACITY 2023-02-03 09:34:00 Zhanna yuan [facility] BASIC METABOLIC PANEL (NA, K, CL, CO2, GLUCOSE, BUN, CREATININE, CA) 2023-02-03 09:34:00 Jesse [facility] CBC WITHOUT DIFF 2023-02-03 09:34:00 Nicolás Molina [facility] GLYCOSYLATED HEMOGLOBIN (A1C) 2023-02-03 09:34:00 Jesse [facility] POCT GLUCOSE (AUTOMATED) 2023-02-03 09:13:00 Abu Ather maru [facility] POCT GLUCOSE (AUTOMATED) 2023-02-03 09:13:00 Abu Ather ah [facility] TRANSFUSE PACKED RBC 2023-02-03 05:42:00 Jesse [facility] TRANSFUSE PACKED RBC 2023-02-03 05:42:00 Jesse [facility] PREPARE PACKED RBC 2023-02-03 05:32:46 ZhannaSusan yuanar [facility] PREPARE PACKED RBC 2023-02-03 05:32:46 OpalmeaghanNicolás yuan [facility] POCT GLUCOSE (AUTOMATED) 2023-02-03 04:27:00 Abu Ather ah, Carlos [facility] POCT GLUCOSE (AUTOMATED) 2023-02-03 04:27:00 Abu Ather ah, Carlos [facility] HB ABO GROUPING 2023-02-03 04:21:00 [facility] 2023-02-03 04:21:00 JesseNicolás Un [facility] URINE DRUG (IMMUNOASSAY) - COMPREHENSIVE DRUG SCREEN 2023-02-03 02:12:00 Brandon Shelton [facility] URINE DRUG (IMMUNOASSAY) - COMPREHENSIVE DRUG SCREEN 2023-02-03 02:12:00 Brandon Shelton [facility] LACTIC ACID WHOLE BLOOD 2023-02-03 02:01:00 Thomas Shelton [facility] LACTIC ACID WHOLE BLOOD 2023-02-03 02:01:00 Thomas Shelton [facility] TRANSFUSE PACKED RBC 2023-02-03 01:24:00 Brandon Shelton [facility] TRANSFUSE PACKED RBC 2023-02-03 01:24:00 Brandon Shelton [facility] PREPARE PACKED RBC 2023-02-03 01:04:45 Brandon Shelton [facility] PREPARE PACKED RBC 2023-02-03 01:04:45 Brandon Shelton [facility] TRANSFUSE PACKED RBC 2023-02-02 22:15:00 Brandon Shelton [facility] TRANSFUSE PACKED RBC 2023-02-02 22:15:00 Brandon Shelton [facility] URINE CULTURE 2023-02-02 22:07:00 Brandon Shelton [facility] URINE CULTURE 2023-02-02 22:07:00 Brandon Shelton [facility] XR CHEST 1 VW 2023-02-02 21:43:00 Brandon Shelton [facility] XR CHEST 1 VW 2023-02-02 21:43:00 [facility] 2023-02-02 21:42:00 Brandon Shelton [facility] CT MAXILLOFACIAL/MANDIBLE WO CONTRAST 2023-02-02 21:42:00 Brandon Shelton [facility] CT ABDOMEN PELVIS WO CONTRAST 2023-02-02 21:42:00 Brandon Shelton [facility] CT ABDOMEN PELVIS WO CONTRAST 2023-02-02 21:42:00 Brandon Shelton [facility] CT MAXILLOFACIAL/MANDIBLE WO CONTRAST 2023-02-02 21:42:00 Brandon Shelton [facility] CT HEAD WO CONTRAST 2023-02-02 21:42:00 Brandon Shelton [facility] THYROID STIMULATING HORMONE 2023-02-02 21:33:00 Brandon Shelton [facility] HB ABO GROUPING 2023-02-02 21:33:00 Brandon Shelton [facility] THYROID STIMULATING HORMONE 2023-02-02 21:33:00 Brandon Shelton [facility] HB ABO GROUPING 2023-02-02 21:33:00 Brandon Shelton [facility] URINALYSIS 2023-02-02 20:47:00 Brandon Shelton [facility] URINALYSIS 2023-02-02 20:47:00 Brandon Shelton [facility] AC ABG + LACTIC ACID 2023-02-02 20:32:00 Brandon Shelton [facility] AC ABG + LACTIC ACID 2023-02-02 20:32:00 Brandon Shelton [facility] ASSIGNMENT OF BENEFITS 2023-02-02 20:07:35 Docto r Unassigned, [place] [facility] ASSIGNMENT OF BENEFITS 2023-02-02 20:07:35 Docto r Unassigned, [place] [facility] CBC WITH DIFF 2023-02-02 20:04:00 Brandon Shelton [facility] PROTHROMBIN TIME / INR 2023-02-02 20:04:00 Mary Shelton [facility] COMP. METABOLIC PANEL ([id number]) 2023-02-02 20:04:00 Brandon Shelton [facility] TROPONIN I 2023-02-02 20:04:00 Brandon Shelton [facility] N-TERMINAL PRO-BNP 2023-02-02 20:04:00 Brandon Shelton [facility] TROPONIN I 2023-02-02 20:04:00 Brandon Shelton [facility] COMP. METABOLIC PANEL ([id number]) 2023-02-02 20:04:00 Brandon Shelton [facility] CBC WITH DIFF 2023-02-02 20:04:00 Brandon Shelton [facility] PROTHROMBIN TIME / INR 2023-02-02 20:04:00 Mary Shelton [facility] N-TERMINAL PRO-BNP 2023-02-02 20:04:00 Brandon Shelton [facility] CONSENT/REFUSAL FOR DIAGNOSIS AND TREATMENT 2023-02-02 19:51:26 Doctor Unassigned, [place] [facility] CONSENT/REFUSAL FOR DIAGNOSIS AND TREATMENT 2023-02-02 19:51:26 Doctor Unassigned, [place] [facility] HB ECG ROUTINE & RHYTHM STRIP 2023-02-02 19:43:20 Brandon Shelton [facility] HB ECG ROUTINE & RHYTHM STRIP 2023-02-02 19:43:20 Brandon Shelton [facility] CRITICAL CARE 2023-02-02 19:37:00 Brandon Shelton [facility] CRITICAL CARE 2023-02-02 19:37:00 Brandon Shelton [facility] EXTERNAL PROVIDER RECORDS 2023-02-02 05:01:00 Do ctor Unassigned, [place] [facility] EXTERNAL PROVIDER RECORDS 2023-02-02 05:01:00 Do ctor Unassigned, [place] [facility] EMERGENCY DEPARTMENT DOCUMENTS 2023-02-02 05:01:00 Doctor Unassigned, [place] [facility] DISCLOSURE AND CONSENT, MEDICAL AND SURGICAL PROCEDURES 2023-02-02 05:01:00 Doctor Unassigned, [place] [facility] EXTERNAL PROVIDER - ADC REFERRAL 2023-01-12 05:01:00 Doctor Unassigned, [place] [facility] POCT GLUCOSE (AUTOMATED) 2022-11-07 16:43:00 Santos Walters [facility] POCT GLUCOSE (AUTOMATED) 2022-11-07 16:43:00 Santos Walters [facility] POCT GLUCOSE (AUTOMATED) 2022-11-07 13:31:00 Santos Walters [facility] POCT GLUCOSE (AUTOMATED) 2022-11-07 13:31:00 Santos Walters [facility] CBC WITH DIFF 2022-11-07 09:26:00 Pengbradly [facility] CBC WITH DIFF 2022-11-07 09:26:00 [facility] POCT GLUCOSE (AUTOMATED) 2022-11-07 01:40:00 Santos Walters [facility] POCT GLUCOSE (AUTOMATED) 2022-11-07 01:40:00 Santos Walters [facility] POCT GLUCOSE (AUTOMATED) 2022-11-06 23:00:00 Santos Walters [facility] POCT GLUCOSE (AUTOMATED) 2022-11-06 23:00:00 Santos Walters [facility] POCT GLUCOSE (AUTOMATED) 2022-11-06 17:53:00 Santos Walters [facility] POCT GLUCOSE (AUTOMATED) 2022-11-06 17:53:00 Santos Walters [facility] POCT GLUCOSE (AUTOMATED) 2022-11-06 13:25:00 Santos Walters [facility] POCT GLUCOSE (AUTOMATED) 2022-11-06 13:25:00 Santos Walters [facility] POCT GLUCOSE (AUTOMATED) 2022-11-06 01:35:00 Santos Walters [facility] POCT GLUCOSE (AUTOMATED) 2022-11-05 22:40:00 Santos Walters amshawanda [facility] POCT GLUCOSE (AUTOMATED) 2022-11-05 17:37:00 Santos Walters [facility] POCT GLUCOSE (AUTOMATED) 2022-11-05 12:20:00 Santos Walters [facility] POCT GLUCOSE (AUTOMATED) 2022-11-05 02:01:00 Santos Walters [facility] POCT GLUCOSE (AUTOMATED) 2022-11-04 21:10:00 Santos Walters [facility] COVID-19 (ID NOW RAPID TESTING) 2022-11-04 [facility] 2022-11-04 19:04:00 Chandan [facility] POCT GLUCOSE (AUTOMATED) 2022-11-04 16:24:00 Selena [facility] POCT GLUCOSE (AUTOMATED) 2022-11-04 12:43:00 Santos Walters [facility] BASIC METABOLIC PANEL (NA, K, CL, CO2, GLUCOSE, BUN, CREATININE, CA) 2022-11-04 09:14:00 Chandan [facility] CBC WITH DIFF 2022-11-04 09:14:00 Chandan [facility] POCT GLUCOSE (AUTOMATED) 2022-11-04 01:25:00 Santos Walters [facility] POCT GLUCOSE (AUTOMATED) 2022-11-03 22:19:00 Santos Walters [facility] POCT GLUCOSE (AUTOMATED) 2022-11-03 16:38:00 Santos Walters [facility] POCT GLUCOSE (AUTOMATED) 2022-11-03 12:46:00 Selena [facility] POCT GLUCOSE (AUTOMATED) 2022-11-03 01:42:00 [facility] 2022-11-02 21:08:00 Phalbrianna, S [facility] POCT GLUCOSE (AUTOMATED) 2022-11-02 16:07:00 Phalbrianna, S [facility] POCT GLUCOSE (AUTOMATED) 2022-11-02 12:35:00 PhalSantos rico [facility] POCT GLUCOSE (AUTOMATED) 2022-11-02 01:43:00 Phalak S [facility] POCT GLUCOSE (AUTOMATED) 2022-11-01 20:56:00 Phalbrianna S [facility] POCT GLUCOSE (AUTOMATED) 2022-11-01 16:43:00 Phalak S [facility] POCT GLUCOSE (AUTOMATED) 2022-11-01 12:39:00 PhalSantos rico [facility] POCT GLUCOSE (AUTOMATED) 2022-11-01 01:49:00 Phalbrianna S [facility] POCT GLUCOSE (AUTOMATED) 2022-11-01 01:49:00 Phalbrianna S [facility] BASIC METABOLIC PANEL (NA, K, CL, CO2, GLUCOSE, BUN, CREATININE, CA) 2022-10-31 22:27:00 Eze Santiago [facility] BASIC METABOLIC PANEL (NA, K, CL, CO2, GLUCOSE, BUN, CREATININE, CA) 2022-10-31 22:27:00 Eze Santiago Dori [facility] CARDIAC CATHETERIZATION 2022-10-31 16:44:12 Ebony Bautista [facility] CARDIAC CATHETERIZATION 2022-10-31 16:44:12 Ebony Bautista [facility] POCT ACT LOW RANGE 2022-10-31 16:28:[address] [facility] POCT ACT LOW RANGE 2022-10-31 16:28:[address] [facility] POCT ACT LOW RANGE 2022-10-31 16:01:[address] [facility] POCT ACT LOW RANGE 2022-10-31 16:01:00 Phalak, [facility] POCT ACT LOW RANGE 2022-10-31 15:40:00 Phalak, [facility] POCT ACT LOW RANGE 2022-10-31 15:40:00 Phalak, [facility] POCT ACT LOW RANGE 2022-10-31 15:14:00 Phalak, [facility] POCT ACT LOW RANGE 2022-10-31 15:14:00 Phalak, [facility] POCT ACT LOW RANGE 2022-10-31 14:52:00 Phalak, [facility] POCT ACT LOW RANGE 2022-10-31 14:52:00 Selena, [facility] CATH PROCEDURE LOG 2022-10-31 14:28:42 Eze Santiago [facility] CATH PROCEDURE LOG 2022-10-31 14:28:42 Eze Santiago [facility] POCT GLUCOSE (AUTOMATED) 2022-10-31 12:26:00 Santos Walters amshawanda [facility] POCT GLUCOSE (AUTOMATED) 2022-10-31 12:26:00 Santos Walters amshawanda [facility] ACTIVATED PARTIAL THRMPLAS ARCENIO 2022-10-31 06:23:00 Eze Santiago [facility] ACTIVATED PARTIAL THRMPLAS ARCENIO 2022-10-31 06:23:00 Eze Santiago [facility] ACTIVATED PARTIAL THRMPLAS ARCENIO 2022-10-31 05:19:00 Eze Santiago [facility] ACTIVATED PARTIAL THRMPLAS ARCENIO 2022-10-31 05:19:00 Eze Santiago [facility] POCT GLUCOSE (AUTOMATED) 2022-10-31 02:13:00 Santos Walters [facility] POCT GLUCOSE (AUTOMATED) 2022-10-31 02:13:00 [facility] ACTIVATED PARTIAL THRMPLAS ARCENIO 2022-10-30 23:12:00 Eze Santiago [facility] ACTIVATED PARTIAL THRMPLAS ARCENIO 2022-10-30 23:12:00 Eze Santiago [facility] POCT GLUCOSE (AUTOMATED) 2022-10-30 21:47:00 Sa bhaskar Maxwell [facility] POCT GLUCOSE (AUTOMATED) 2022-10-30 21:47:00 Sa bhaskar Maxwell [facility] ABORH CONFIRMATION (LAB ONLY) 2022-10-30 19:33:00 Adele [facility] ABORH CONFIRMATION (LAB ONLY) 2022-10-30 19:33:00 Adele [facility] HB ABO GROUPING 2022-10-30 18:35:00 Fernie [facility] HB ABO GROUPING 2022-10-30 18:35:00 Fernie [facility] POCT GLUCOSE (AUTOMATED) 2022-10-30 16:49:00 Sa bhaskar Maxwell [facility] POCT GLUCOSE (AUTOMATED) 2022-10-30 16:49:00 Sa bhaskar Maxwell [facility] ACTIVATED PARTIAL THRMPLAS ARCENIO 2022-10-30 14:35:00 Eez Santiago [facility] ACTIVATED PARTIAL THRMPLAS ARCENIO 2022-10-30 14:35:00 Eze Santiago [facility] POCT GLUCOSE (AUTOMATED) 2022-10-30 13:17:00 Sa bhaskar Maxwell [facility] POCT GLUCOSE (AUTOMATED) 2022-10-30 13:17:00 Sa bhaskar Maxwell [facility] BASIC METABOLIC PANEL (NA, K, CL, CO2, GLUCOSE, BUN, CREATININE, CA) 2022-10-30 09:52:00 Katherine [facility] CBC WITH DIFF 2022-10-30 09:52:00 Jose Murphy [facility] BASIC METABOLIC PANEL (NA, K, CL, CO2, GLUCOSE, BUN, CREATININE, CA) 2022-10-30 09:52:00 Katherine [facility] CBC WITH DIFF 2022-10-30 09:52:00 Jose Murphy [facility] POCT GLUCOSE (AUTOMATED) 2022-10-30 01:08:00 Darren [facility] POCT GLUCOSE (AUTOMATED) 2022-10-30 01:08:00 Darren [facility] ACTIVATED PARTIAL THRMPLAS ARCENIO 2022-10-30 00:38:00 Ashish Ezemonalisa Meadows [facility] ACTIVATED PARTIAL THRMPLAS ARCENIO 2022-10-30 00:38:00 Eze Santiago [facility] POCT GLUCOSE (AUTOMATED) 2022-10-29 21:52:00 Darren [facility] POCT GLUCOSE (AUTOMATED) 2022-10-29 21:52:00 Darren [facility] TRANSTHORACIC ECHO (TTE) COMPLETE W/ CONTRAST 2022-10-29 18:31:00 Eze Santiago Dori [facility] TRANSTHORACIC ECHO (TTE) COMPLETE W/ CONTRAST 2022-10-29 18:31:00 Eze Santiago [facility] ACTIVATED PARTIAL THRMPLAS ARCENIO 2022-10-29 17:01:00 Eze Santiago Dori [facility] ACTIVATED PARTIAL THRMPLAS ARCENIO 2022-10-29 17:01:00 Eze Santiago Dori [facility] POCT GLUCOSE (AUTOMATED) 2022-10-29 16:30:00 Darren [facility] POCT GLUCOSE (AUTOMATED) 2022-10-29 16:30:00 Darren [facility] POCT GLUCOSE (AUTOMATED) 2022-10-29 13:02:00 Darren [facility] POCT GLUCOSE (AUTOMATED) 2022-10-29 13:02:00 Darren [facility] MAGNESIUM 2022-10-29 08:07:00 Jose Murphy [facility] BASIC METABOLIC PANEL (NA, K, CL, CO2, GLUCOSE, BUN, CREATININE, CA) 2022-10-29 08:07:00 Jose Murphy [facility] CBC WITH DIFF 2022-10-29 08:07:00 Jose Murphy [facility] MAGNESIUM 2022-10-29 08:07:00 Jose Murphy [facility] BASIC METABOLIC PANEL (NA, K, CL, CO2, GLUCOSE, BUN, CREATININE, CA) 2022-10-29 08:07:00 Jose Murphy [facility] CBC WITH DIFF 2022-10-29 08:07:00 Jose Murphy [facility] ACTIVATED PARTIAL THRMPLAS ARCENIO 2022-10-29 04:40:00 M[place]lin [facility] ACTIVATED PARTIAL THRMPLAS ARCENIO 2022-10-29 04:40:00 Katherine [facility] POCT GLUCOSE (AUTOMATED) 2022-10-29 01:36:00 Darren bhaskar [facility] POCT GLUCOSE (AUTOMATED) 2022-10-29 01:36:00 Darren lik [facility] POCT GLUCOSE (AUTOMATED) 2022-10-29 01:36:00 Darren [facility] POCT GLUCOSE (AUTOMATED) 2022-10-28 21:55:00 Darren lik [facility] POCT GLUCOSE (AUTOMATED) 2022-10-28 21:55:00 Darren lik [facility] POCT GLUCOSE (AUTOMATED) 2022-10-28 21:55:00 Sa bhaskar Maxwell [facility] CARDIAC CATHETERIZATION 2022-10-28 17:27:00 Viet Santiago [facility] CARDIAC CATHETERIZATION 2022-10-28 17:27:00 Viet Santiago [facility] CARDIAC CATHETERIZATION 2022-10-28 17:27:00 Viet Santiago [facility] CARDIAC CATHETERIZATION 2022-10-28 17:27:00 Viet Santiago [facility] CARDIAC CATHETERIZATION 2022-10-28 17:27:00 Viet Santiago [facility] CARDIAC CATHETERIZATION 2022-10-28 17:27:00 Viet Santiago [facility] POCT ACT LOW RANGE 2022-10-28 17:24:00 [facility] 2022-10-28 17:24:00 [facility]ng [facility] ACT LOW RANGE 2022-10-28 17:24:00 DarrenKvng ball [facility] PROCED[facility] LOG 2022-10-28 16:51:15 Eze Santiago [facility] MAGNESIUM 2022-10-28 10:59:00 Kalyan [facility] BASIC METABOLIC PANEL (NA, K, CL, CO2, GLUCOSE, BUN, CREATININE, CA) 2022-10-28 10:59:[address] [facility] MAGNESIUM 2022-10-28 10:59:00 Kalyan, [facility] BASIC METABOLIC PANEL (NA, K, CL, CO2, GLUCOSE, BUN, CREATININE, CA) 2022-10-28 10:59:[address] [facility] MAGNESIUM 2022-10-28 10:59:00 Kalyan, [facility] BASIC METABOLIC PANEL (NA, K, CL, CO2, GLUCOSE, BUN, CREATININE, CA) 2022-10-28 10:59:[address] [facility] CBC WITH DIFF 2022-10-28 09:01:00 [facility]an [facility] ACTIVATED PARTIAL THRMPLAS ARCENIO 2022-10-28 09:01:00 Katherine [facility] CBC WITH DIFF 2022-10-28 09:01:00 [facility]an [facility] ACTIVATED PARTIAL THRMPLAS ARCENIO 2022-10-28 09:01:00 Katherine [facility] CBC WITH DIFF 2022-10-28 09:01:00 [facility]an [facility] ACTIVATED PARTIAL THRMPLAS ARCENIO 2022-10-28 09:01:00 Modavid [facility] URINALYSIS 2022-10-28 04:32:00 AlexRadha [facility] URINE CULTURE 2022-10-28 04:32:00 [facility] URINALYSIS 2022-10-28 04:32:00 AlexRadha [facility] URINE CULTURE 2022-10-28 04:32:00 AlexRadha [facility] URINALYSIS 2022-10-28 04:32:00 Radha Johnson [facility] POCT GLUCOSE (AUTOMATED) 2022-10-28 01:13:00 Sa bhaskar Maxwell [facility] POCT GLUCOSE (AUTOMATED) 2022-10-28 01:13:00 Sa bhaskar Maxwell [facility] POCT GLUCOSE (AUTOMATED) 2022-10-28 01:13:00 Darren [facility] ACTIVATED PARTIAL THRMPLAS ARCENIO 2022-10-28 01:02:00 Darren [facility] ACTIVATED PARTIAL THRMPLAS ARCENIO 2022-10-28 01:02:00 Darren [facility] ACTIVATED PARTIAL THRMPLAS ARCENIO 2022-10-28 01:02:00 Darren [facility] POCT GLUCOSE (AUTOMATED) 2022-10-27 22:58:[address] [facility] POCT GLUCOSE (AUTOMATED) 2022-10-27 22:58:00 Darren [facility] POCT GLUCOSE (AUTOMATED) 2022-10-27 22:58:00 Darren [facility] POCT GLUCOSE (AUTOMATED) 2022-10-27 21:45:00 Darren [facility] POCT GLUCOSE (AUTOMATED) 2022-10-27 21:45:00 Darren [facility] POCT GLUCOSE (AUTOMATED) 2022-10-27 21:45:00 Darren [facility] ACTIVATED PARTIAL THRMPLAS ARCENIO 2022-10-27 17:46:00 Eze Santiago [facility] ACTIVATED PARTIAL THRMPLAS ARCENIO 2022-10-27 17:46:00 Eze Santiago Dori [facility] ACTIVATED PARTIAL THRMPLAS ARCENIO 2022-10-27 17:46:00 Eze Santiago Dori [facility] POCT GLUCOSE (AUTOMATED) 2022-10-27 17:45:00 Terminell a, [facility] POCT GLUCOSE (AUTOMATED) 2022-10-27 17:45:00 Terminell a, [facility] POCT GLUCOSE (AUTOMATED) 2022-10-27 17:45:00 Terminell izabela [facility] POCT GLUCOSE (AUTOMATED) 2022-10-27 13:46:00 Terminell a [facility] POCT GLUCOSE (AUTOMATED) 2022-10-27 13:46:00 Terminell izabela [facility] POCT GLUCOSE (AUTOMATED) 2022-10-27 13:46:00 Terminell izabela [facility] MAGNESIUM 2022-10-27 09:24:00 Kalyan [facility] TROPONIN I 2022-10-27 09:24:00 Eze Santiago [facility] BASIC METABOLIC PANEL (NA, K, CL, CO2, GLUCOSE, BUN, CREATININE, CA) 2022-10-27 09:24:[address] [facility] CBC WITH DIFF 2022-10-27 09:24:00 K[facility]an [facility] MAGNESIUM 2022-10-27 09:24:00 Kalyan [facility] TROPONIN I 2022-10-27 09:24:00 Eze Santiago [facility] BASIC METABOLIC PANEL (NA, K, CL, CO2, GLUCOSE, BUN, CREATININE, CA) 2022-10-27 09:24:[address] [facility] CBC WITH DIFF 2022-10-27 09:24:00 K[facility]an [facility] MAGNESIUM 2022-10-27 09:24:00 Biggs, [facility] TROPONIN I 2022-10-27 09:24:00 Eze Santiago [facility] BASIC METABOLIC PANEL (NA, K, CL, CO2, GLUCOSE, BUN, CREATININE, CA) 2022-10-27 09:24:00 Biggs, [facility] CBC WITH DIFF 2022-10-27 09:24:00 [facility]an [facility] POCT GLUCOSE (AUTOMATED) 2022-10-27 02:03:00 Terminell izabela [facility] POCT GLUCOSE (AUTOMATED) 2022-10-27 02:03:00 Terminell izabela [facility] POCT GLUCOSE (AUTOMATED) 2022-10-27 02:03:00 Terminell izabela [facility] MAGNESIUM 2022-10-26 21:49:00 Kalyan [facility] BASIC METABOLIC PANEL (NA, K, CL, CO2, GLUCOSE, BUN, CREATININE, CA) 2022-10-26 21:49:[address] [facility] POCT GLUCOSE (AUTOMATED) 2022-10-26 21:49:00 Terminell izabela [facility] MAGNESIUM 2022-10-26 21:49:00 Kalyan [facility] BASIC METABOLIC PANEL (NA, K, CL, CO2, GLUCOSE, BUN, CREATININE, CA) 2022-10-26 21:49:[address] [facility] POCT GLUCOSE (AUTOMATED) 2022-10-26 21:49:00 Terminell izabela [facility] MAGNESIUM 2022-10-26 21:49:00 Kalyan [facility] BASIC METABOLIC PANEL (NA, K, CL, CO2, GLUCOSE, BUN, CREATININE, CA) 2022-10-26 21:49:[address] [facility] POCT GLUCOSE (AUTOMATED) 2022-10-26 21:49:00 Terminell izabela [facility] POCT GLUCOSE (AUTOMATED) 2022-10-26 17:57:00 Terminell a [facility] POCT GLUCOSE (AUTOMATED) 2022-10-26 17:57:00 Terminell a [facility] POCT GLUCOSE (AUTOMATED) 2022-10-26 17:57:00 Terminell izabela [facility] MRSA / MSSA SCREEN BY PCR, [facility] 2022-10-26 15:14:[address] [facility] MRSA / MSSA SCREEN BY PCR, [facility] 2022-10-26 15:14:[address] [facility] MRSA / MSSA SCREEN BY PCR, [facility] 2022-10-26 15:14:00 [facility] RHYTHM STRIP 2022-10-26 14:36:[address] [facility] HB ECG ROUTINE & RHYTHM STRIP 2022-10-26 14:36:[address] [facility] HB ECG ROUTINE & RHYTHM STRIP 2022-10-26 14:36:[address] [facility] POCT GLUCOSE (AUTOMATED) 2022-10-26 14:20:00 Terminell izabela [facility] POCT GLUCOSE (AUTOMATED) 2022-10-26 14:20:00 Terminell a [facility] POCT GLUCOSE (AUTOMATED) 2022-10-26 14:20:00 Josué garcia [facility] XR CHEST 1 2022-10-26 08:13:28 Carlie Oconnor [facility] XR CHEST 1 2022-10-26 08:13:28 Carlie Oconnor [facility] XR CHEST 1 2022-10-26 08:13:28 Carlie Oconnor [facility] ACUTE CARE ARTERIAL BLOOD GAS 2022-10-26 08:09:00 Carlie Oconnor [facility] ACUTE CARE ARTERIAL BLOOD GAS 2022-10-26 08:09:00 Carlie Oconnor [facility] ACUTE CARE ARTERIAL BLOOD GAS 2022-10-26 08:09:00 Carlie Oconnor [facility] TROPONIN I 2022-10-26 07:58:00 Carlie Oconnor [facility] COMP. METABOLIC PANEL ([id number]) 2022-10-26 07:58:00 Carlie Oconnor [facility] CBC WITH DIFF 2022-10-26 07:58:00 Carlie Oconnor [facility] PROTHROMBIN TIME / INR 2022-10-26 07:58:00 Curtis Oconnor [facility] N-TERMINAL PRO-BNP 2022-10-26 07:58:00 Carlie Oconnor [facility] TROPONIN I 2022-10-26 07:58:00 Carlie Oconnor [facility] COMP. METABOLIC PANEL (95622) 2022-10-26 07:58:00 Carlie Oconnor [facility] CBC WITH DIFF 2022-10-26 07:58:00 Carlie Oconnor [facility] PROTHROMBIN TIME / INR 2022-10-26 07:58:00 Curtis Oconnor [facility] N-TERMINAL PRO-BNP 2022-10-26 07:58:00 Carlie Oconnor [facility] TROPONIN I 2022-10-26 07:58:00 Carlie Oconnor [facility] COMP. METABOLIC PANEL (78168) 2022-10-26 07:58:00 Carlie Oconnor [facility] CBC WITH DIFF 2022-10-26 07:58:00 Carlie Oconnor [facility] PROTHROMBIN TIME / INR 2022-10-26 07:58:00 Curtis Oconnor [facility] N-TERMINAL PRO-BNP 2022-10-26 07:58:00 Carlie Oconnor [facility] HB ECG ROUTINE & RHYTHM STRIP 2022-10-26 07:47:42 Carlie Oconnor [facility] HB ECG ROUTINE & RHYTHM STRIP 2022-10-26 07:47:42 Carlie Oconnor [facility] HB ECG ROUTINE & RHYTHM STRIP 2022-10-26 07:47:42 Carlie Oconnor [facility] CRITICAL CARE 2022-10-26 07:41:00 Carlie Oconnor [facility] CRITICAL CARE 2022-10-26 07:41:00 Carlie Oconnor [facility] CRITICAL CARE 2022-10-26 07:41:00 Carlie Oconnor [facility] POCT GLUCOSE (AUTOMATED) 2022-09-06 22:24:00 Rosa M Thomason [facility] POCT GLUCOSE (AUTOMATED) 2022-09-06 16:38:00 Rosa M Thomason [facility] POCT GLUCOSE (AUTOMATED) 2022-09-06 14:46:00 Rosa M Thomason [facility] TROPONIN I 2022-09-06 13:18:00 Girish Sales [facility] POCT GLUCOSE (AUTOMATED) 2022-09-06 12:31:00 Rosa M Thomasonizabela [facility] BASIC METABOLIC PANEL (NA, K, CL, CO2, GLUCOSE, BUN, CREATININE, CA) 2022-09-06 10:49:00 Girish Sales [facility] CBC WITHOUT DIFF 2022-09-06 10:49:00 Lucio Sales [facility] N-TERMINAL PRO-BNP 2022-09-06 10:49:00 Bela Ac [facility] POCT GLUCOSE (AUTOMATED) 2022-09-06 00:46:00 Rosa M Thomasonizabela [facility] POCT GLUCOSE (AUTOMATED) 2022-09-05 22:08:00 Rosa M Thomason [facility] POCT GLUCOSE (AUTOMATED) 2022-09-05 21:22:00 Rosa M Thomason [facility] POCT GLUCOSE (AUTOMATED) 2022-09-05 16:53:00 Rosa M Thomason [facility] BASIC METABOLIC PANEL (NA, K, CL, CO2, GLUCOSE, BUN, CREATININE, CA) 2022-09-05 10:53:00 Girish Sales [facility] CBC WITHOUT DIFF 2022-09-05 08:31:00 Lucio Sales [facility] POCT GLUCOSE (AUTOMATED) 2022-09-05 02:10:00 Rosa M Thomason [facility] POCT GLUCOSE (AUTOMATED) 2022-09-04 23:03:00 Rosa M Thomasonizabela [facility] POCT GLUCOSE (AUTOMATED) 2022-09-04 17:02:00 Rosa M Thomason [facility] POCT GLUCOSE (AUTOMATED) 2022-09-04 13:30:00 Rosa M Thomason [facility] MAGNESIUM 2022-09-04 10:25:[address] [facility] BASIC METABOLIC PANEL (NA, K, CL, CO2, GLUCOSE, BUN, CREATININE, CA) 2022-09-04 10:25:00 Girish Sales [facility] CBC WITHOUT DIFF 2022-09-04 10:25:00 Lucio Sales [facility] POCT GLUCOSE (AUTOMATED) 2022-09-04 02:19:00 Rosa M Thomason [facility] POCT GLUCOSE (AUTOMATED) 2022-09-03 22:28:00 Rosa M Thomason [facility] TRANSTHORACIC ECHO (TTE) COMPLETE W/ CONTRAST 2022-09-03 20:18:52 Kaly[facility] TROPONIN I 2022-09-03 18:20:[address] [facility] POCT GLUCOSE (AUTOMATED) 2022-09-03 17:38:00 Rosa M Thomasonizabela [facility] POCT GLUCOSE (AUTOMATED) 2022-09-03 13:32:00 Rosa M Thomason [facility] MAGNESIUM 2022-09-03 10:30:[address] [facility] TROPONIN I 2022-09-03 10:30:[address] [facility] BASIC METABOLIC PANEL (NA, K, CL, CO2, GLUCOSE, BUN, CREATININE, CA) 2022-09-03 10:30:00 [facility]aly[facility] LIPID PANEL (09390)(TOTAL CHOLESTEROL, TRIGLYCERIDES, HDL) 2022-09-03 10:30:00 [facility] 2022-09-03 04:03:[address] [facility] FERRITIN SERUM 2022-09-03 04:03:00 [facility] TROPONIN I 2022-09-03 04:03:[address] [facility] THYROID STIMULATING HORMONE 2022-09-03 04:03:00 James Biggs [facility] BASIC METABOLIC PANEL (NA, K, CL, CO2, GLUCOSE, BUN, CREATININE, CA) 2022-09-03 04:03:00 James Biggs [facility] IRON PANEL 2022-09-03 04:03:[address] [facility] CBC WITH DIFF 2022-09-03 04:03:00 James Biggs [facility] GLYCOSYLATED HEMOGLOBIN (A1C) 2022-09-03 04:03:00 [facility] N-TERMINAL PRO-BNP 2022-09-03 04:03:00 [facility] 2022-09-03 03:37:00 James Biggs [facility] POCT GLUCOSE (AUTOMATED) 2022-09-03 02:53:00 Rosa M Thomason [facility] ASSIGNMENT OF BENEFITS 2022-05-27 21:59:04 Docto r Unassigned, [place] [facility] REFERRAL- REQUEST/RESPONSE 2022-05-16 06:01:00 Nita boucher Unassigned, [place] [facility] Ekg 2020-08-15 00:00:00 Surendra White Plan of Care Planned Activity Planned Date Details Comments Source Goal Plan of Care Note [code = 90908-2] Goal Plan of Care Note [code = 91498-7] Goal Plan of Care Note [code = 48096-3] Goal Plan of Care Note [code = 12913-8] Goal Plan of Care Note [code = 45467-3] Goal Plan of Care Note [code = 10617-7] Goal Plan of Care Note [code = 96808-8] Goal Plan of Care Note [code = 66792-8] Goal Plan of Care Note [code = 86052-3] Goal Plan of Care Note [code = 82484-4] Goal Plan of Care Note [code = 79831-8] Goal Plan of Care Note [code = 95792-6] Goal Plan of Care Note [code = 86783-4] Goal Plan of Care Note [code = 59058-3] Goal Plan of Care Note [code = 95205-7] Goal Plan of Care Note [code = 62971-5] Goal Plan of Care Note [code = 34487-0] Goal Plan of Care Note [code = 75536-5] Goal Plan of Care Note [code = 91529-3] Goal Plan of Care Note [code = 58897-5] Goal Plan of Care Note [code = 34018-7] Goal Plan of Care Note [code = 78208-6] Goal Plan of Care Note [code = 73825-1] Goal Plan of Care Note [code = 38500-9] Goal Plan of Care Note [code = 93134-3] Goal Plan of Care Note [code = 56988-5] Goal Plan of Care Note [code = 25582-4] Goal Plan of Care Note [code = 74384-8] Goal Plan of Care Note [code = 60861-3] Goal Plan of Care Note [code = 61924-6] Goal Plan of Care Note [code = 40893-7] Goal Plan of Care Note [code = 69723-3] Goal Plan of Care Note [code = 48555-1] Goal Plan of Care Note [code = 93052-5] Goal Plan of Care Note [code = 19851-0] Goal Plan of Care Note [code = 23364-5] Goal Plan of Care Note [code = 73508-9] Goal Plan of Care Note [code = 71211-4] Goal Plan of Care Note [code = 56111-4] Goal Plan of Care Note [code = 60817-4] Goal Plan of Care Note [code = 47022-9] Goal Plan of Care Note [code = 65952-7] Goal Plan of Care Note [code = 46204-8] Goal Plan of Care Note [code = 78808-3] Goal Plan of Care Note [code = 11310-2] Goal Plan of Care Note [code = 29486-8] Goal Plan of Care Note [code = 84064-9] Goal Plan of Care Note [code = 95405-1] Goal Plan of Care Note [code = 47073-5] Goal Plan of Care Note [code = 88014-3] Goal Plan of Care Note [code = 35503-2] Goal Plan of Care Note [code = 63216-3] Goal Plan of Care Note [code = 36152-4] Goal Plan of Care Note [code = 17201-3] Goal Plan of Care Note [code = 20366-8] Goal Plan of Care Note [code = 34383-1] Goal Plan of Care Note [code = 86513-8] Goal Plan of Care Note [code = 55410-2] Goal Plan of Care Note [code = 97671-7] Goal Plan of Care Note [code = 33479-5] Goal Plan of Care Note [code = 80065-5] Goal Plan of Care Note [code = 05537-5] Goal Plan of Care Note [code = 55732-7] Goal Plan of Care Note [code = 34688-6] Goal Plan of Care Note [code = 32661-0] Goal Plan of Care Note [code = 96848-5] Encounters Start Date/Time End Date/Time Encounter Type Admission Type Attending [facility] Facility Care Department Encounter ID Source 2024-06-09 00:00:00 2024-06-09 10:42:41 Transition of Care Nakul Hansen Michele [facility] 1.2.840.114 350.1.13.10 4.2.7.2.686 [id number] [facility] 2024-05-24 18:42:00 2024-06-08 17:43:00 Inpatient X BERTO ROMAN [facility] [id number] [facility] 2024-05-24 18:42:00 2024-06-08 17:43:00 Hospital Encounter Jewel Sexton Jelani Edionwe, [facility] 1..840.114 350.1.13.10 4.2.7.2.686 [id number] [facility] 2024-05-16 14:34:20 2024-05-16 14:34:20 Outpatient SFA [facility] [id number] Surendra Ross Christopher 2024-05-16 00:00:00 2024-05-16 00:00:00 Outpatient Visit [facility] [id number] Surendra White 2024-05-05 12:54:22 2024-05-05 23:59:00 Outpatient R TIARRA BAUTISTATGH [place] [id number] [facility] 2024-05-05 12:54:22 2024-05-05 23:59:00 Hospital Encounter [facility] 1..840.114 350.1.13.10 4.2.7.2.686 [id number] [facility] 2024-05-02 00:00:00 2024-05-02 16:40:41 Telephone Wilver Baker [facility] 1..840.114 350.1.13.10 4.2.7.2.686 [id number] [facility] 2024-04-26 00:00:00 2024-04-26 00:00:00 Outpatient R TIARRA BAUTISTATGH [place] [id number] [facility] 2024-03-10 00:00:00 2024-03-11 10:13:05 Telephone Wilman Mcdonald [facility] 1..840.114 350.1.13.10 4.2.7.2.686 [id number] [facility] 2024-03-10 07:52:00 2024-03-10 13:15:00 Outpatient R RENUKAALIE JAMEYSITAJagjit NEEMA JAMEYGAJagjit [facility] [id number] [facility] 2024-03-10 07:52:00 2024-03-10 13:15:00 Hospital Encounter Jamey Betheasitajagjit [facility] 1..840.114 350.1.13.10 4.2.7.2.686 [id number] [facility] 2024-03-10 07:52:00 2024-03-10 13:15:00 Inpatient R AWAIS BETHEA MUHIE [facility] [id number] [facility] 2024-03-10 09:30:00 2024-03-10 10:30:00 Surgery Awais Bethea [facility] 1.2.840.114 350.1.13.10 4.2.7.2.686 [id number] [facility] 2024-03-10 07:30:00 2024-03-10 07:51:00 Hospital Encounter Awais Bethea [facility] 1.2.840.114 350.1.13.10 4.2.7.2.686 [id number] [facility] 2024-03-08 12:00:00 2024-03-08 12:15:00 Natural Gas Inspector Visit Pete, Adc Lab Wilman Lopez, Adc Lab Main [facility] 1.2.840.114 350.1.13.10 4.2.7.2.686 [id number] [facility] 2024-03-08 12:00:00 2024-03-08 12:00:00 Outpatient WILMAN GAMEZ [facility] [id number] [facility] 2024-03-07 00:00:00 2024-03-07 10:06:33 Telephone Awais Bethea [facility] 1.2.840.114 350.1.13.10 4.2.7.2.686 [id number] [facility] 2024-03-04 00:00:00 2024-03-04 12:33:44 Telephone Awais Beteha [facility] 1.2.840.114 350.1.13.10 4.2.7.2.686 [id number] [facility] 2024-03-04 11:30:00 2024-03-04 12:00:00 Office Visit Wilver Baker [facility] 1.2.840.114 350.1.13.10 4.2.7.2.686 [id number] [facility] 2024-03-04 11:30:00 2024-03-04 11:30:00 Outpatient R SANDRITA STACKDWILVER [facility] [id number] [facility] 2024-03-01 13:40:00 2024-03-01 13:40:00 Outpatient LALIT LINARES [facility] [id number] [facility] 2024-02-11 10:13:13 2024-02-11 10:13:13 Outpatient [facility] [id number] Surendra White 2024-02-11 00:00:00 2024-02-11 00:00:00 Outpatient Visit [facility] [id number] Surendra White 2023-12-18 00:00:00 2024-01-23 18:23:55 Patient Secure Msg Doctor Unassigned, [place] Doctor Unassigned, [place] [facility] 1.2.840.114 350.1.13.10 4.2.7.2.686 [id number] [facility] 2024-01-07 09:57:00 2024-01-07 09:57:00 Outpatient [facility] [id number] Surendra White 2024-01-07 00:00:00 2024-01-07 00:00:00 Outpatient Visit [facility] [id number] Surendra Ross Christopher 2023-12-30 12:01:00 2023-12-30 17:31:00 Emergency X DARSHAN, JEWEL SANTIZO [facility] [id number] [facility] 2023-12-30 12:01:00 2023-12-30 17:31:00 Emergency DarshanJewel [facility] 1.2.840.114 350.1.13.10 4.2.7.2.686 [id number] [facility] 2023-12-29 15:00:00 2023-12-29 15:00:00 Outpatient LALIT LINARES HOWARD [facility] [id number] [facility] 2023-12-23 00:00:00 2023-12-23 14:04:21 Letter (Out) Massiel Mccoy i [facility] 1.2.840.114 350.1.13.10 4.2.7.2.686 [id number] [facility] 2023-12-18 11:20:00 2023-12-18 11:20:00 Outpatient R [facility] [id number] [facility] 2023-12-17 14:45:50 2023-12-17 14:45:50 Outpatient SFA [facility] [id number] Surendra White 2023-12-17 00:00:00 2023-12-17 00:00:00 Outpatient Visit [facility] [id number] Surendra White 2023-12-11 16:20:00 2023-12-11 16:20:00 Outpatient R EZE SANTIAGO [facility] [id number] [facility] 2023-12-10 15:51:26 2023-12-10 15:51:26 Outpatient SFA [facility] [id number] Surendra White 2023-12-10 00:00:00 2023-12-10 00:00:00 Outpatient Visit [facility] [id number] Surendra White 2023-12-08 00:00:00 2023-12-09 09:50:58 Telephone Eze Santiago Dori [facility] OFF[facility] 1.2.840.114 350.1.13.10 4.2.7.2.686 [id number] [facility] 2023-12-01 13:20:00 2023-12-01 13:20:00 Outpatient LALIT LINARES HOWARD [facility] [id number] [facility] 2023-11-12 13:47:03 2023-11-12 13:47:03 Outpatient [facility] [id number] Surendra White 2023-11-12 00:00:00 2023-11-12 00:00:00 Outpatient Visit [facility] [id number] Surendra White 2023-10-27 00:00:00 2023-10-27 10:54:34 Transition of Care Arlene Hoffman ..840.114 350.1.13.10 4.2.7.2.686 [id number] [facility] 2023-10-21 22:03:00 2023-10-26 17:13:00 Inpatient ANGEL LUIS LOUISE [facility] [id number] [facility] 2023-10-21 22:03:00 2023-10-26 17:13:00 Hospital Encounter Vinh Foreman Mohammad A. [facility] ..840.114 350.1.13.10 4.2.7.2.686 [id number] [facility] 2023-10-26 15:00:00 2023-10-26 15:00:00 Outpatient LALIT LINARES HOWARD [facility] [id number] [facility] 2023-10-26 13:21:44 2023-10-26 13:21:44 Outpatient SFA [facility] [id number] Surendra White 2023-10-23 10:30:00 2023-10-23 10:30:00 Outpatient SURENDRA ALVAREZ [facility] [id number] [facility] 2023-09-03 00:00:00 2023-10-10 18:12:33 Patient Secure Msg Doctor Unassigned, [place] [facility] 1.2840.114 350.1.13.10 4.2.7.2.686 [id number] [facility] 2023-09-19 00:00:00 2023-09-21 08:12:04 Refill Bela Ac [facility] 1..840.114 350.1.13.10 4.2.7.2.686 [id number] [facility] 2023-09-04 11:00:00 2023-09-04 11:00:00 Outpatient SURENDRA ALVAREZ [facility] [id number] [facility] 2023-08-25 16:45:06 2023-08-25 16:45:06 Outpatient [facility] [id number] Surendra Ross [place] 2023-08-25 00:00:00 2023-08-25 00:00:00 Outpatient Visit [facility] [id number] Surendra Ross [place] 2023-08-06 15:38:46 2023-08-06 15:38:46 Outpatient [facility] [id number] Surendra Ross [place] 2023-07-28 00:00:00 2023-07-28 00:00:00 Orders Only Doctor Unassigned, [place] [facility] 1.840.114 350.1.13.10 4.2.7.2.686 [id number] [facility] 2023-07-27 14:20:00 2023-07-27 14:20:00 Outpatient R [facility] [id number] [facility] 2023-07-09 18:38:00 2023-07-09 21:52:00 Emergency X JOSUE HODGES [facility] [id number] [facility] 2023-07-09 18:38:00 2023-07-09 21:52:00 Emergency Josue Hodges [facility] .2.840.114 350.1.13.10 4.2.7.2.686 [id number] [facility] 2023-07-09 16:19:13 2023-07-09 16:19:13 Outpatient [facility] [id number] Surendra White 2023-07-09 00:00:00 2023-07-09 00:00:00 Outpatient Visit [facility] [id number] Surendra White 2023-04-29 13:30:00 2023-04-29 13:45:00 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, 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 Main [facility] 1.2.840.114 350.1.13.10 4.2.7.2.686 [id number] [facility] 2023-04-29 13:30:00 2023-04-29 13:30:00 Outpatient EZE CANTU [facility] [id number] [facility] 2023-04-29 11:45:16 2023-04-29 11:45:16 Outpatient [facility] [id number] Surendra White 2023-04-28 16:27:53 2023-04-28 16:27:53 Outpatient [facility] 2 Surendra Ross Christopher 2023-04-02 10:50:14 2023-04-02 10:50:14 Outpatient [facility] [id number] Surendra White 2023 13:19:00 2023 18:56:00 Emergency X Clark JULIAN [facility] [id number] [facility] 2023 13:19:00 2023 18:56:00 Emergency Clark Julian [facility] 1.2.840.114 350.1.13.10 4.2.7.2.686 [id number] [facility] 2023-03-28 00:00:00 2023-03-28 00:00:00 Patient Secure Msg Doctor Unassigned, [place] [facility] 1.2.840.114 350.1.13.10 4.2.7.2.686 [id number] [facility] 2023-03-23 13:40:00 2023-03-23 14:20:00 Office Visit Eze Santiago [facility] 1.2.840.114 350.1.13.10 4.2.7.2.686 [id number] [facility] 2023-03-23 13:40:00 2023-03-23 13:40:00 Outpatient EZE CANTU [facility] [id number] [facility] 2023-03-23 00:00:00 2023-03-23 00:00:00 Orders Only Doctor Unassigned, [place] [facility] 1.2.840.114 350.1.13.10 4.2.7.2.686 [id number] [facility] 2023-03-17 14:30:00 2023-03-17 14:30:00 Outpatient GIRISH HEAD [facility] [id number] [facility] 2023-03-17 00:00:00 2023-03-17 00:00:00 Outpatient GC_GCBZW_Ka diyala_S PRIV PRIV [id number] [facility] 2023-03-16 00:00:00 2023-03-16 00:00:00 Outpatient GC_GCBZW_Ka diyala_S PRIV PRIV [id number] [facility] 2023-03-02 00:00:00 2023-03-02 00:00:00 Patient Secure Msg Doctor Unassigned, [place] [facility] 1.2840.114 350.1.13.10 4.2.7.2.686 [id number] [facility] 2023-02-24 00:00:00 2023-02-24 00:00:00 Patient Secure Msg Doctor Unassigned, [place] [facility] 1.2840.114 350.1.13.10 4.2.7.2.686 [id number] [facility] 2023-02-20 00:00:00 2023-02-20 00:00:00 Transition of Care Rosaura Mariscal [facility] 1.0.114 350.1.13.10 4.2.7.2.686 [id number] [facility] 2023-02-02 14:37:00 2023-02-18 15:30:00 Inpatient U WHITNEY, ANA PAULA BERRY, [facility] [id number] [facility] 2023-02-02 14:37:00 2023-02-18 15:30:00 Hospital Encounter Brandon Shelton, Carlos Berry, [facility] ([facility]) 1.840.114 350.1.13.10 4.2.7.2.686 [id number] [facility] 2023-02-16 20:03:49 2023-02-16 20:03:49 Anesthesia Event [facility] ([facility]) 1.2840.114 350.1.13.10 4.2.7.2.686 [id number] [facility] 2023-02-09 20:03:43 2023-02-09 20:03:43 Anesthesia Event [facility] ([facility]) 1.2.840.114 350.1.13.10 4.2.7.2.686 [id number] [facility] 2023-02-04 00:00:00 2023-02-04 00:00:00 Travel 1.2.840.1 02822.1.1 3.104.2.7 .3.467056 .8 1.2.840.114 350.1.13.10 4.2.7.3.698 084.8 [id number] [facility] 2023-02-02 00:00:00 2023-02-02 00:00:00 Travel 1.2.840.1 00907.1.1 3.104.2.7 .3.034893 .8 1.2.840.114 350.1.13.10 4.2.7.3.698 084.8 [id number] [facility] 2023-01-12 11:00:00 2023-01-12 11:00:00 Outpatient FAHEEM MARTINEZ [facility] [id number] [facility] 2023-01-12 00:00:00 2023-01-12 00:00:00 Orders Only Doctor Unassigned, [facility] 1.2.840.114 350.1.13.10 4.2.7.2.686 [id number] [facility] 2022-12-18 17:03:38 2022-12-18 17:03:38 Outpatient KALPANA ACUNA [id number] Surendra White 2022-11-27 10:30:00 2022-11-27 10:30:00 Outpatient FAHEEM MARTINEZ [facility] [id number] [facility] 2022-11-10 00:00:00 2022-11-10 00:00:00 Transition of Care Arlene Hoffman 1.2.840.1 10146.1.1 3.104.2.7 .3.405502 .8 [id number] [facility] 2022-10-26 02:43:00 2022-11-07 14:30:00 Hospital Encounter Elvin Carlie Raymond, Gurwinder Caputo, Angel Luis Maxwell, Kvng Abbe Walters 1.2.840.1 44269.1.1 3.104.2.7 .3.866910 .8 [id number] [facility] 2022-10-26 02:43:00 2022-11-07 14:30:00 Inpatient Gadiel GUEROBRIANNA ABBE SINGH [facility] [id number] [facility] 2022-10-31 09:30:00 2022-10-31 11:30:[address] [facility] ([facility]) 1.2.840.114 350.1.13.10 4.2.7.2.686 [id number] [facility] 2022-10-28 10:30:00 2022-10-28 13:30:[address] [facility] ([facility]) 1.2.840.114 350.1.13.10 4.2.7.2.686 [id number] [facility] 2022-10-15 16:42:13 2022-10-15 16:42:13 Outpatient [facility] [id number] Surendra White 2022-10-14 13:20:00 2022-10-14 13:20:00 Outpatient LALIT LINARES HOWARD [facility] [id number] [facility] 2022-09-29 00:00:00 2022-09-29 00:00:00 [facility] 1.2.840.114 350.1.13.10 4.2.7.2.686 [id number] [facility] 2022-09-15 15:43:42 2022-09-15 15:43:42 Outpatient [facility] [id number] Surendra White 2022-09-10 00:00:00 2022-09-10 00:00:00 [facility] MED[facility] OFFICE BUILDING 1.2840.114 350.1.13.10 4.2.7.2.686 [id number] [facility] 2022-09-09 16:30:00 2022-09-09 16:30:00 Outpatient ALBERTA HEIN [facility] [id number] [facility] 2022-09-09 00:00:00 2022-09-09 00:00:00 Patient Secure Msg Doctor Unassigned, [place] [facility] 1.840.114 350.1.13.10 4.2.7.2.686 [id number] [facility] 2022-09-08 00:00:00 2022-09-08 00:00:00 Transition of Care Arlene Hoffman [facility] 1.840.114 350.1.13.10 4.2.7.2.686 [id number] [facility] 2022-09-02 21:16:00 2022-09-06 18:59:00 Inpatient U KALYAN [facility] [id number] [facility] 2022-09-02 21:16:00 2022-09-06 18:59:00 Hospital Encounter Vince Thomason [facility] ([facility]) 1..114 350.1.13.10 4.2.7.2.686 [id number] [facility] 2022-09-02 16:30:00 2022-09-02 16:30:00 Outpatient ALBERTA HEIN [facility] [id number] [facility] 2022-08-19 08:42:21 2022-08-19 08:42:21 Outpatient SFA SFA [id number] Surendra White 2022-05-27 16:00:00 2022-05-27 16:56:43 Outpatient LALIT LINARES HOWARD [facility] [id number] [facility] 2022-05-27 16:00:00 2022-05-27 16:56:43 Office Visit Lalit Perez [facility] 1.2.840.114 350.1.13.10 4.2.7.2.686 [id number] [facility] 2022-05-27 00:00:00 2022-05-27 00:00:00 Orders Only Doctor Unassigned, [place] [address].840.114 350.1.13.10 4.2.7.2.686 [id number] [facility] 2022-05-16 00:00:00 2022-05-16 00:00:00 Orders Only Doctor Unassigned, [place] [address].840.114 350.1.13.10 4.2.7.2.686 [id number] [facility] 2022-05-06 08:00:00 2022-05-06 08:00:00 Outpatient LALIT LINARES [facility]ARD [facility] [id number] [facility] 2022-05-02 15:20:00 2022-05-02 15:20:00 Outpatient LALIT LINARES HOWARD [facility] [id number] [facility] 2022-04-03 00:00:00 2022-04-03 00:00:00 Outpatient Visit [id number] 2022-02-18 16:39:55 2022-02-18 16:39:55 Outpatient SFA [facility] [id number] Surendra White 2022-02-18 00:00:00 2022-02-18 00:00:00 Outpatient Visit [id number] 2022-02-14 16:00:00 2022-02-14 16:00:00 Outpatient LALIT LINARES [facility]ARD [facility] [id number] [facility] 2022-01-31 16:40:00 2022-01-31 17:00:00 Office Visit Provider, [facility] 1.2.840.114 350.1.13.10 4.2.7.2.686 [id number] [facility] 2022-01-31 16:40:00 2022-01-31 16:40:00 Outpatient SELENA HENDRICKS [facility] [id number] [facility] 2022-01-31 16:40:00 2022-01-31 16:40:00 Outpatient SELENA HENDRICKS [facility] [id number] [facility] 2022-01-03 00:00:00 2022-01-03 00:00:00 Outpatient Visit [id number] 2021-12-24 00:00:00 2021-12-24 00:00:00 Outpatient Visit [id number] -[id number] [id number] 2021-10-21 00:00:00 2021-10-21 00:00:00 Orders Only Doctor Unassigned, [place] [facility] 1.2840.114 350.1.13.10 4.2.7.2.686 [id number] [facility] 2021-09-09 00:00:00 2021-09-09 00:00:00 Orders Only Doctor Unassigned, [place] [facility] 1.2840.114 350.1.13.10 4.2.7.2.686 [id number] [facility] 2021-07-10 15:20:00 2021-07-10 15:20:00 Outpatient R TIMMY [facility] [id number] [facility] 2021-06-19 15:40:00 2021-06-19 15:40:00 Outpatient Shawanda [facility]ER [facility] [id number] [facility] 2021-05-16 00:00:00 2021-05-16 00:00:00 Orders Only Doctor Unassigned, [place] [facility] 1.2840.114 350.1.13.10 4.2.7.2.686 [id number] [facility] 2021-04-09 19:22:58 2021-04-09 23:59:00 [facility] 1.840.114 350.1.13.10 4.2.7.2.686 [id number] [facility] 2021-04-09 19:22:57 2021-04-09 23:59:00 Hospital Encounter [facility] 1.840.114 350.1.13.10 4.2.7.2.686 [id number] [facility] 2021-04-09 19:03:28 2021-04-09 19:49:57 [facility] 1.2.840.114 350.1.13.10 4.2.7.2.686 [id number] [facility] 2021-04-09 19:00:00 2021-04-09 19:49:57 Outpatient Shawanda BELCHER [facility] [id number] [facility] 2021-04-09 00:00:00 2021-04-09 00:00:00 Letter (Out) Doctor Unassigned, [place] [facility] 1.2.840.114 350.1.13.10 4.2.7.2.686 [id number] [facility] 2021-04-03 00:00:00 2021-04-03 00:00:00 Orders Only Doctor Unassigned, [place] [facility] 1..840.114 350.1.13.10 4.2.7.2.686 [id number] [facility] Results Test Description Test Time Test Comments Results Result Co mments Source [facility] GLUCOSE (AUTOMATED)2024-06-08 17:28:43* Test Item Value Reference Range Interpretation Comme nts POCT GLU (test code = 9099942250) 209 mg/dL 70-110 H Lab Interpretation (test cod e = 78312-9) Abnormal [facility] GLUCOSE (AUTOMATED)2024-06-08 13:20:07* Test Item Value Reference Range Interpretation Comme nts POCT GLU (test code = 1952593791) 127 mg/dL 70-110 H Lab Interpretation (test cod e = 77139-5) Abnormal [facility] GLUCOSE (AUTOMATED)2024-06-08 02:01:38* Test Item Value Reference Range Interpretation Comme nts POCT GLU (test code = 8842867783) 192 mg/dL 70-110 H Lab Interpretation (test cod e = 75305-1) Abnormal [facility] GLUCOSE (AUTOMATED)2024-06-07 22:20:38* Test Item Value Reference Range Interpretation Comme nts POCT GLU (test code = 5582456192) 191 mg/dL 70-110 H Lab Interpretation (test cod e = 23796-6) [facility] 17:26:11* Test Item Value Reference Range Interpretation Comme nts POCT GLU (test code = 8394271451) 326 mg/dL 70-110 H Lab Interpretation (test cod e = 30303-1) [facility]2024-[facility]-07 13:33:11* Test Item Value Reference Range Interpretation Comme nts POCT GLU (test code = 9035565102) 139 mg/dL 70-110 H Lab Interpretation (test cod e = 61132-7) [facility]2024-06-07 02:10:39* Test Item Value Reference Range Interpretation Comme nts POCT GLU (test code = 0906970240) 210 mg/dL 70-110 H Lab Interpretation (test cod e = 28388-9) Abnormal [facility] GLUCOSE (AUTOMATED)2024-06-06 22:23:04* Test Item Value Reference Range Interpretation Comme nts POCT GLU (test code = 1702140361) 207 mg/dL 70-110 H Lab Interpretation (test cod e = 19287-0) [facility]2024-06-06 17:52:03* Test Item Value Reference Range Interpretation Comme nts POCT GLU (test code = 5486858075) 239 mg/dL 70-110 H Lab Interpretation (test cod e = 81136-5) [facility]2024-06-06 14:02:02* Test Item Value Reference Range Interpretation Comme nts POCT GLU (test code = 6369851125) 177 mg/dL 70-110 H Lab Interpretation (test cod e = 66185-0) [facility]2024-06-06 03:51:01* Test Item Value Reference Range Interpretation Comme nts POCT GLU (test code = 1812807445) 209 mg/dL 70-110 H Lab Interpretation (test cod e = 34946-5) [facility]2024-06-05 22:25:01* Test Item Value Reference Range Interpretation Comme nts POCT GLU (test code = 7442528322) 299 mg/dL 70-110 H Lab Interpretation (test cod e = 13993-8) Abnormal [facility] GLUCOSE (AUTOMATED)2024-06-05 17:44:31* Test Item Value Reference Range Interpretation Comme [facility] POCT GLU (test code = 0341186542) 231 mg/dL 70-110 H Lab Interpretation (test cod e = 84607-7) Abnormal [facility] GLUCOSE (AUTOMATED)2024-06-05 13:37:34* Test Item Value Reference Range Interpretation Comme [facility] POCT GLU (test code = 8364136965) 70 mg/dL 70-110 Lab Interpretation (test cod e = 73137-4) Normal [facility] Metabolic Panel (NA, K, CL, CO2, GLUCOSE, BUN, CREATININE, CA)2024-06-05 10:49:29* Test Item Value Reference Range Interpretation Comme nts NA (test code = 7265654954) 134 mmol/L 135-145 L K (test code = 4675110575) 4.0 mmol/L 3.5-5.0 CL (test code = 9780037111) 101 mmol/L 98-108 CO2 TOTAL (test code = 3477946368) 33 mmol/L 23-31 H AGAP (test code = 9824614146) 2-16 L BUN (test code = 4263682435) 23 mg/dL 7-23 GLUCOSE (test code = 3244791118) 92 mg/dL 70-110 CREATININE (test code = 2160-0) 0.73 mg/dL 0.50-1.04 CALCIUM (test code = 9616825662) 8.9 mg/dL 8.6-10.6 eGFR (test code = 21808-2) 83.8 mL/min/1.73m2 CKD-EPI eGFR (2020). Assuming creatinine has been stable day-to-day for at least three months, the eGFR indicates Category G2 (60 - 89 mL/min/1.73 m2) Lab Interpretation (test code = 43176-6) [facility] 10:41:34* Test Item Value Reference Range Interpretation Comme [facility] MAGNESIUM (test code = 3061409877) 1.8 mg/dL 1.7-2.4 Lab Interpretation (test cod e = 38119-5) Normal [facility]20[facility] 10:41:14* Test Item Value Reference Range Interpretation Comme nts PHOSPHORUS (test code = 0731098403) 3.6 mg/dL 2.5-5.0 Lab Interpretation (test cod e = 35314-2) Normal [facility] without [id number] 10:14:33* Test Item Value Reference Range Interpretation Comme nts WBC (test code = 6690-2) 13.65 4.30-11.10 H RBC (test code = 789-8) 3.73 3.93-5.25 L HGB (test code = 718-7) 11.4 g/dL 11.6-15.0 L HCT (test code = 4544-3) 34.7 % 35.7-45.2 L MCH (test code = 785-6) 30.6 pg 25.9-32.8 MCV (test code = 787-2) 93.0 fL 80.6-95.5 MCHC (test code = 786-4) 32.9 g/dL 31.6-35.1 PLT (test code = 777-3) 233 166-358 MPV (test code = 47362-5) 9.6 fL 9.5-12.9 RDW-CV (test code = 788-0) 13.3 % 12.0-15.5 RDW-SD (test code = 45257-0) 45.1 fL 39.0-49.9 NRBC x10^3 (test code = 8689934813) See_Comment [Automated messa ge] The system which generated this result transmitted reference range: 10*3/?L. The reference range was not used to interpret this result as normal/abnormal. NRBC/100 WBC (test code = 8153881075) 0.0 0.0-10.0 IPF % (test code = 6427792650) Lab Interpretation (test code = 97513-3) [facility]2024-06-05 02:11:27* Test Item Value Reference Range Interpretation Comme nts POCT GLU (test code = 6428788548) 269 mg/dL 70-110 H Lab Interpretation (test cod e = 43673-2) Abnormal [facility] GLUCOSE (AUTOMATED)2024-06-04 22:24:58* Test Item Value Reference Range Interpretation Comme nts POCT GLU (test code = 5515952036) 254 mg/dL 70-110 H Lab Interpretation (test cod e = 78119-0) Abnormal [facility] GLUCOSE (AUTOMATED)2024-06-04 17:27:59* Test Item Value Reference Range Interpretation Comme nts POCT GLU (test code = 1046155204) 217 mg/dL 70-110 H Lab Interpretation (test cod e = 72647-5) Abnormal [facility] GLUCOSE (AUTOMATED)2024-06-04 13:40:27* Test Item Value Reference Range Interpretation Comme nts POCT GLU (test code = 5624117091) 101 mg/dL 70-110 Lab Interpretation (test cod e = 04470-0) Normal [facility] GLUCOSE (AUTOMATED)2024-06-04 11:19:57* Test Item Value Reference Range Interpretation Comme nts POCT GLU (test code = 8312555412) 107 mg/dL 70-110 Lab Interpretation (test cod e = 67877-2) Normal [facility]2025-01-18 10:11:11* Test Item Value Reference Range Interpretation Comme nts MAGNESIUM (test code = 0918050355) 1.9 mg/dL 1.7-2.4 Lab Interpretation (test cod e = 46246-9) Normal [facility] Metabolic Panel (NA, K, CL, CO2, GLUCOSE, BUN, CREATININE, CA)2024-06-04 10:10:51* Test Item Value Reference Range Interpretation Comme nts NA (test code = 2394680360) 133 mmol/L 135-145 L K (test code = 3793249533) 3.8 mmol/L 3.5-5.0 CL (test code = 6261587093) 101 mmol/L 98-108 CO2 TOTAL (test code = 6239213804) 31 mmol/L 23-31 AGAP (test code = 6601111948) 1 2-16 L BUN (test code = 5847164879) 27 mg/dL 7-23 H GLUCOSE (test code = 4824182571) 55 mg/dL 70-110 L CREATININE (test code = 2160-0) 0.59 mg/dL 0.50-1.04 CALCIUM (test code = 8596519290) 8.9 mg/dL 8.6-10.6 eGFR (test code = 91095-0) 91.8 mL/min/1.73m2 CKD-EPI eGFR (2020). Assuming creatinine has been stable day-to-day for at least three months, the eGFR indicates Category G1 (>= 90 mL/min/1.73 m2) Lab Interpretation (test code = 85468-1) [facility]normal [facility]2025-[facility] 10:10:51* Test Item Value Reference Range Interpretation Comme nts PHOSPHORUS (test code = 0832403975) 4.1 mg/dL 2.5-5.0 Lab Interpretation (test cod e = 33832-0) Normal [facility] without Avlq8297-98-48 09:55:09* Test Item Value Reference Range Interpretation Comme nts WBC (test code = 6690-2) 15.15 4.30-11.10 H RBC (test code = 789-8) 3.98 3.93-5.25 HGB (test code = 718-7) 12.3 g/dL 11.6-15.0 HCT (test code = 4544-3) 37.1 % 35.7-45.2 MCH (test code = 785-6) 30.9 pg 25.9-32.8 MCV (test code = 787-2) 93.2 fL 80.6-95.5 MCHC (test code = 786-4) 33.2 g/dL 31.6-35.1 PLT (test code = 777-3) 248 166-358 MPV (test code = 64628-0) 9.6 fL 9.5-12.9 RDW-CV (test code = 788-0) 13.3 % 12.0-15.5 RDW-SD (test code = 06710-3) 45.4 fL 39.0-49.9 NRBC x10^3 (test code = 4819124260) See_Comment [Automated messa ge] The system which generated this result transmitted reference range: 10*3/?L. The reference range was not used to interpret this result as normal/abnormal. NRBC/100 WBC (test code = 9583530484) 0.0 0.0-10.0 IPF % (test code = 2205491274) Lab Interpretation (test code = 72201-4) Abnormal [facility] GLUCOSE (AUTOMATED)2024-06-04 01:59:56* Test Item Value Reference Range Interpretation Comme nts POCT GLU (test code = 7774309810) 256 mg/dL 70-110 H Lab Interpretation (test cod e = 65238-3) Abnormal [facility] GLUCOSE (AUTOMATED)2024-06-03 22:22:22* Test Item Value Reference Range Interpretation Comme nts POCT GLU (test code = 2800060043) 223 mg/dL 70-110 H Lab Interpretation (test cod e = 21329-6) Abnormal [facility] GLUCOSE (AUTOMATED)2024-06-03 17:31:53* Test Item Value Reference Range Interpretation Comme nts POCT GLU (test code = 6215966799) 224 mg/dL 70-110 H Lab Interpretation (test cod e = 91540-7) Abnormal [facility] GLUCOSE (AUTOMATED)2024-06-03 13:38:53* Test Item Value Reference Range Interpretation Comme nts POCT GLU (test code = 2996916952) 121 mg/dL 70-110 H Lab Interpretation (test cod e = 87306-2) Abnormal [facility] GLUCOSE (AUTOMATED)2024-06-03 02:14:18* Test Item Value Reference Range Interpretation Comme nts POCT GLU (test code = 4831707463) 275 mg/dL 70-110 H Lab Interpretation (test cod e = 36837-4) Abnormal [facility] GLUCOSE (AUTOMATED)2024-06-02 22:20:21* Test Item Value Reference Range Interpretation Comme nts POCT GLU (test code = 8002985056) 311 mg/dL 70-110 H Lab Interpretation (test cod e = 61652-7) Abnormal [facility] GLUCOSE (AUTOMATED)2024-06-02 17:26:20* Test Item Value Reference Range Interpretation Comme nts POCT GLU (test code = 4092124201) 207 mg/dL 70-110 H Lab Interpretation (test cod e = 28579-0) Abnormal [facility] GLUCOSE (AUTOMATED)2024-06-02 13:42:53* Test Item Value Reference Range Interpretation Comme nts POCT GLU (test code = 5720550422) 121 mg/dL 70-110 H Lab Interpretation (test cod e = 89278-0) [facility]2024-[facility]-02 02:30:21* Test Item Value Reference Range Interpretation Comme nts POCT GLU (test code = 8977019091) 265 mg/dL 70-110 H Lab Interpretation (test cod e = 96489-5) Abnormal [facility] GLUCOSE (AUTOMATED)2024-06-01 22:40:16* Test Item Value Reference Range Interpretation Comme nts POCT GLU (test code = 8290235717) 299 mg/dL 70-110 H Lab Interpretation (test cod e = 75310-1) Abnormal [facility] GLUCOSE (AUTOMATED)2024-06-01 17:33:17* Test Item Value Reference Range Interpretation Comme nts POCT GLU (test code = 1680544452) 260 mg/dL 70-110 H Lab Interpretation (test cod e = 40609-4) Abnormal [facility] GLUCOSE (AUTOMATED)2024-06-01 14:14:19* Test Item Value Reference Range Interpretation Comme nts POCT GLU (test code = 8790176501) 118 mg/dL 70-110 H Lab Interpretation (test cod e = 93719-2) Abnormal [facility] GLUCOSE (AUTOMATED)2024-06-01 13:41:47* Test Item Value Reference Range Interpretation Comme nts POCT GLU (test code = 1802493960) 125 mg/dL 70-110 H Lab Interpretation (test cod e = 18055-3) [facility]2024-06-01 07:21:20* Test Item Value Reference Range Interpretation Comme nts POCT GLU (test code = 6008293460) 180 mg/dL 70-110 H Lab Interpretation (test cod e = 55825-8) Abnormal [facility] GLUCOSE (AUTOMATED)2024-06-01 01:33:50* Test Item Value Reference Range Interpretation Comme nts POCT GLU (test code = 9516619412) 362 mg/dL 70-110 H Lab Interpretation (test cod e = 38678-1) Abnormal [facility] GLUCOSE (AUTOMATED)2024-05-31 22:31:50* Test Item Value Reference Range Interpretation Comme [facility] POCT GLU (test code = 9159562825) 343 mg/dL 70-110 H Lab Interpretation (test cod e = 82765-6) Abnormal [facility] GLUCOSE (AUTOMATED)2024-05-31 13:44:16* Test Item Value Reference Range Interpretation Comme [facility] POCT GLU (test code = 5230353385) 106 mg/dL 70-110 Lab Interpretation (test cod e = 64598-0) Normal [facility] with Wmsv5730-31-80 13:19:47* Test Item Value Reference Range Interpretation Comme [facility] WBC (test code = 6690-2) 16.09 4.30-11.10 H RBC (test code = 789-8) 4.14 3.93-5.25 HGB (test code = 718-7) 12.9 g/dL 11.6-15.0 HCT (test code = 4544-3) 38.8 % 35.7-45.2 MCV (test code = 787-2) 93.7 fL 80.6-95.5 MCH (test code = 785-6) 31.2 pg 25.9-32.8 MCHC (test code = 786-4) 33.2 g/dL 31.6-35.1 RDW-SD (test code = 36742-0) 44.6 fL 39.0-49.9 RDW-CV (test code = 788-0) 13.0 % 12.0-15.5 PLT (test code = 777-3) 272 166-358 MPV (test code = 03959-8) 9.6 fL 9.5-12.9 NRBC/100 WBC (test code = 2862465552) 0.0 0.0-10.0 NRBC x10^3 (test code = 4935212695) See_Comment [Automated message] The system which generated this result transmitted reference range: 10*3/?L. The reference range was not used to interpret this result as normal/abnormal. SEG % (test code = 51366-3) 66 % 33-76 LYMPH % (test code = 55133-0) 25 % 14-54 REACT LYMPH % (test code = 0441867631) 3 % MONO % (test code = 97251-1) 3 % 0-4 EOS % (test code = 69970-7) 3 % 0-3 ANC (test code = 753-4) 10.62 10*3/uL 1.88-7.09 H PLT ESTIMATE (test code = 9317-9) Normal Normal Lab Interpretation (test code = 23571-7) [facility] [id number] 11:30:50ORDERING PHYSICIAN: CADENCE ROMAN CLINICAL HISTORY: Shortness of breath TECHNIQUE: Frontal view ofchest COMPARISON: 05/29/2024 FINDINGS: The cardiac silhouette is mildly enlarged, stable. ?There is mild worseningof left lower lobe atelectasis versus infiltrate with small left-sidedpleural effusion. The right lung is clear. There is no pneumothorax. Osseous structures are normal.[facility] Metabolic Panel (NA, K, CL, CO2, GLUCOSE, BUN, CREATININE, CA)2024-05-31 11:00:01* Test Item Value Reference Range Interpretation Comme nts NA (test code = 6008456453) 134 mmol/L 135-145 L K (test code = 2874844922) 4.4 mmol/L 3.5-5.0 CL (test code = 6460425657) 99 mmol/L 98-108 CO2 TOTAL (test code = 6487723920) 35 mmol/L 23-31 H AGAP (test code = 2319691318) 2-16 L BUN (test code = 5734400013) 33 mg/dL 7-23 H GLUCOSE (test code = 2761590754) 120 mg/dL 70-110 H CREATININE (test code = 2160-0) 0.66 mg/dL 0.50-1.04 CALCIUM (test code = 6902807569) 9.2 mg/dL 8.6-10.6 eGFR (test code = 98249-3) 89.4 mL/min/1.73m2 Lab Interpretation (test cod e = 55965-8) [facility]normal [facility] 10:58:30* Test Item Value Reference Range Interpretation Comme nts MAGNESIUM (test code = 6954409609) 1.7 mg/dL 1.7-2.4 Lab Interpretation (test cod e = 76907-6) Normal [facility] GLUCOSE (AUTOMATED)2024-05-31 02:37:15* Test Item Value Reference Range Interpretation Comme nts POCT GLU (test code = 9486107428) 231 mg/dL 70-110 H Lab Interpretation (test cod e = 21617-7) Abnormal [facility] GLUCOSE (AUTOMATED)2024-05-30 22:56:09* Test Item Value Reference Range Interpretation Comme nts POCT GLU (test code = 7951625877) 269 mg/dL 70-110 H Lab Interpretation (test cod e = 43525-3) Abnormal [facility] GLUCOSE (AUTOMATED)2024-05-30 21:50:13* Test Item Value Reference Range Interpretation Comme nts POCT GLU (test code = 9980698469) 292 mg/dL 70-110 H Lab Interpretation (test cod e = 13466-0) Abnormal [facility] GLUCOSE (AUTOMATED)2024-05-30 17:42:15* Test Item Value Reference Range Interpretation Comme nts POCT GLU (test code = 7377460625) 305 mg/dL 70-110 H Lab Interpretation (test cod e = 98899-6) Abnormal [facility] GLUCOSE (AUTOMATED)2024-05-30 13:53:09* Test Item Value Reference Range Interpretation Comme nts POCT GLU (test code = 8102936780) 83 mg/dL 70-110 Lab Interpretation (test cod e = 05934-5) Normal [facility] with [id number] 13:26:27* Test Item Value Reference Range Interpretation Comme nts WBC (test code = 6690-2) 16.99 4.30-11.10 H RBC (test code = 789-8) 4.53 3.93-5.25 HGB (test code = 718-7) 14.1 g/dL 11.6-15.0 HCT (test code = 4544-3) 42.7 % 35.7-45.2 MCV (test code = 787-2) 94.3 fL 80.6-95.5 MCH (test code = 785-6) 31.1 pg 25.9-32.8 MCHC (test code = 786-4) 33.0 g/dL 31.6-35.1 RDW-SD (test code = 86098-1) 45.1 fL 39.0-49.9 RDW-CV (test code = 788-0) 13.2 % 12.0-15.5 PLT (test code = 777-3) 308 166-358 MPV (test code = 52983-4) 9.8 fL 9.5-12.9 NRBC/100 WBC (test code = 8571064206) 0.0 0.0-10.0 NRBC x10^3 (test code = 3040902033) See_Comment [Automated message] The system which generated this result transmitted reference range: 10*3/?L. The reference range was not used to interpret this result as normal/abnormal. GRAN MAT (NEUT) % (test code = 770-8) 72.5 % IMM GRAN % (test code = 0252457403) 5.90 % LYMPH % (test code = 736-9) 14.8 % MONO % (test code = 5905-5) 6.1 % EOS % (test code = 713-8) 0.1 % BASO % (test code = 706-2) 0.6 % GRAN MAT x10^3(ANC) (test code = 1536307121) 12.31 10*3/uL 1.88-7.09 H IMM GRAN x10^3 (test code = 6363374722) 1.00 10*3/uL 0.00-0.06 H LYMPH x10^3 (test code = 731-0) 2.51 10*3/uL 1.32-3.29 MONO x10^3 (test code = 742-7) 1.04 10*3/uL 0.33-0.92 H EOS x10^3 (test code = 711-2) 0.03-0.39 L BASO x10^3 (test code = 704-7) 0.11 10*3/uL 0.01-0.07 H Lab Interpretation (test code = 63596-5) [facility] Rl[facility]-[id number] 09:33:48* Test Item Value Reference Range Interpretation Comme nts NT-proBNP (test code = 19500-2) 405 pg/mL <=125 LOW (test code = LOW) Result Indeterminate-Consid er causes of NT-proBNP elevation other than Heart failure such as acute coronary syndrome, pulmonary embolism, pulmonary hypertension, sepsis, stroke, and renal dysfunction. Lab Interpretation (test code = 35627-3) [facility]normal [facility] HospitalMagnesium2025-01-13 09:26:07* Test Item Value Reference Range Interpretation Comme nts MAGNESIUM (test code = 5822916799) 1.8 mg/dL 1.7-2.4 Lab Interpretation (test cod e = 33815-9) Normal [facility] Metabolic Panel (24928)2024-05-30 09:25:47* Test Item Value Reference Range Interpretation Comme nts NA (test code = 7074081226) 133 mmol/L 135-145 L K (test code = 0200651614) 4.8 mmol/L 3.5-5.0 CL (test code = 8406482670) 93 mmol/L 98-108 L CO2 TOTAL (test code = 2514541750) 36 mmol/L 23-31 H AGAP (test code = 8566815794) 4 2-16 BUN (test code = 9485565308) 35 mg/dL 7-23 H GLUCOSE (test code = 4610957128) 147 mg/dL 70-110 H CREATININE (test code = 2160-0) 0.72 mg/dL 0.50-1.04 TOTAL BILI (test code = 7621154381) 0.7 mg/dL 0.1-1.1 CALCIUM (test code = 1137292941) 9.3 mg/dL 8.6-10.6 T PROTEIN (test code = 4305509043) 6.4 g/dL 6.3-8.2 ALBUMIN (test code = 8622599998) 3.3 g/dL 3.5-5.0 L ALK PHOS (test code = 2204165351) 53 U/L 34-122 ALTv (test code = 1742-6) 25 U/L 5-35 AST(SGOT) (test code = 1791869817) 35 U/L 13-40 eGFR (test code = 89422-2) 85.2 mL/min/1.73m2 CKD-EPI eGFR (2020). Assuming creatinine has been stable day-to-day for at least three months, the eGFR indicates Category G2 (60 - 89 mL/min/1.73 m2) Lab Interpretation (test code = 68547-4) Abnormal [facility] GLUCOSE (AUTOMATED)2024-05-30 01:46:09* Test Item Value Reference Range Interpretation Comme nts POCT GLU (test code = 6054017053) 297 mg/dL 70-110 H Lab Interpretation (test cod e = 41690-8) Abnormal [facility] GLUCOSE (AUTOMATED)2024-05-29 22:25:11* Test Item Value Reference Range Interpretation Comme nts POCT GLU (test code = 4277449710) 227 mg/dL 70-110 H Lab Interpretation (test cod e = 74915-6) Abnormal [facility] GLUCOSE (AUTOMATED)2024-05-29 17:21:12* Test Item Value Reference Range Interpretation Comme nts POCT GLU (test code = 6550880109) 280 mg/dL 70-110 H Lab Interpretation (test cod e = 93848-6) Abnormal [facility] GLUCOSE (AUTOMATED)2024-05-29 13:50:08* Test Item Value Reference Range Interpretation Comme nts POCT GLU (test code = 7363561326) 148 mg/dL 70-110 H Lab Interpretation (test cod e = 64069-8) [facility] 1 [id number] 12:53:53ORDERING PHYSICIAN: CADENCE ROMAN CLINICAL HISTORY: Shortness of breath TECHNIQUE: Frontal view ofchest COMPARISON: 05/24/2024 moderately enlarged FINDINGS: The cardiac silhouette is mildly enlarged,stable. Mild central vascularcongestion is identified, similar compared to prior exam. Mild worsening ofleft lower lobe patchy atelectasis versus infiltrate. There is no pneumothorax. There are no eff usions.. ? Osseous structures are normal.[facility] GLUCOSE (AUTOMATED)2024-05-29 02:29:09* Test Item Value Reference Range Interpretation Comme nts POCT GLU (test code = 6605360340) 267 mg/dL 70-110 H Lab Interpretation (test cod e = 08015-8) Abnormal [facility] GLUCOSE (AUTOMATED)2024-05-29 00:36:11* Test Item Value Reference Range Interpretation Comme nts POCT GLU (test code = 7558159210) 349 mg/dL 70-110 H Lab Interpretation (test cod e = 55781-8) Abnormal [facility] GLUCOSE (AUTOMATED)2024-05-28 23:02:40* Test Item Value Reference Range Interpretation Comme nts POCT GLU (test code = 2629707556) 319 mg/dL 70-110 H Lab Interpretation (test cod e = 99108-6) Abnormal [facility] GLUCOSE (AUTOMATED)2024-05-28 21:14:06* Test Item Value Reference Range Interpretation Comme nts POCT GLU (test code = 1912784946) 328 mg/dL 70-110 H Lab Interpretation (test cod e = 79734-3) [facility]normal [facility] HospitalSputum [id number] 20:00:38* Test Item Value Reference Range Interpretation Comme nts SPUTUM CULTURE (test code = 622-1) 1+ Respiratory rico: Commensal upper respiratory microorganisms only. Gram stain (test code = 664-3) Occasional (Rare) Epithelial cells LOW (test code = LOW) Bacterial pathogens associated with lower respiratory infections were not identified, which include Pseudomonas aeruginosa and Staphylococcus aureus (MRSA or MSSA). [facility] GLUCOSE (AUTOMATED)2024-05-28 17:31:38* Test Item Value Reference Range Interpretation Comme nts POCT GLU (test code = 6504380243) 347 mg/dL 70-110 H Lab Interpretation (test cod e = 66478-6) Abnormal [facility] GLUCOSE (AUTOMATED)2024-05-28 13:35:38* Test Item Value Reference Range Interpretation Comme nts POCT GLU (test code = 0060149572) 154 mg/dL 70-110 H Lab Interpretation (test cod e = 27458-0) [facility] (NA, K, CL, CO2, GLUCOSE, BUN, CREATININE, CA)2024-05-28 12:36:22* Test Item Value Reference Range Interpretation Comme nts NA (test code = 3975340644) 134 mmol/L 135-145 L K (test code = 0138632413) 4.6 mmol/L 3.5-5.0 CL (test code = 8641503407) 99 mmol/L 98-108 CO2 TOTAL (test code = 8390129640) 34 mmol/L 23-31 H AGAP (test code = 4263307345) 1 2-16 L BUN (test code = 4223975172) 35 mg/dL 7-23 H GLUCOSE (test code = 8724093447) 190 mg/dL 70-110 H CREATININE (test code = 2160-0) 0.78 mg/dL 0.50-1.04 CALCIUM (test code = 1696437028) 9.0 mg/dL 8.6-10.6 eGFR (test code = 04414-2) 77.4 mL/min/1.73m2 CKD-EPI eGFR (2020). Assuming creatinine has been stable day-to-day for at least three months, the eGFR indicates Category G2 (60 - 89 mL/min/1.73 m2) Lab Interpretation (test code = 89870-3) Abnormal [facility] HospitalCb with [id number] 10:39:29* Test Item Value Reference Range Interpretation Comme nts WBC (test code = 6690-2) 14.00 4.30-11.10 H RBC (test code = 789-8) 4.16 3.93-5.25 HGB (test code = 718-7) 12.8 g/dL 11.6-15.0 HCT (test code = 4544-3) 39.0 % 35.7-45.2 MCV (test code = 787-2) 93.8 fL 80.6-95.5 MCH (test code = 785-6) 30.8 pg 25.9-32.8 MCHC (test code = 786-4) 32.8 g/dL 31.6-35.1 RDW-SD (test code = 67833-6) 44.7 fL 39.0-49.9 RDW-CV (test code = 788-0) 13.0 % 12.0-15.5 PLT (test code = 777-3) 282 166-358 MPV (test code = 23261-0) 9.7 fL 9.5-12.9 NRBC/100 WBC (test code = 0771680156) 0.0 0.0-10.0 NRBC x10^3 (test code = 0511779773) See_Comment [Automated messa ge] The system which generated this result transmitted reference range: 10*3/?L. The reference range was not used to interpret this result as normal/abnormal. GRAN MAT (NEUT) % (test code = 770-8) 68.0 % IMM GRAN % (test code = 7465559087) 5.70 % LYMPH % (test code = 736-9) 18.3 % MONO % (test code = 5905-5) 7.3 % EOS % (test code = 713-8) 0.1 % BASO % (test code = 706-2) 0.6 % GRAN MAT x10^3(ANC) (test code = 9367599634) 9.51 10*3/uL 1.88-7.09 H IMM GRAN x10^3 (test code = 5120374189) 0.80 10*3/uL 0.00-0.06 H LYMPH x10^3 (test code = 731-0) 2.56 10*3/uL 1.32-3.29 MONO x10^3 (test code = 742-7) 1.02 10*3/uL 0.33-0.92 H EOS x10^3 (test code = 711-2) 0.03-0.39 L BASO x10^3 (test code = 704-7) 0.09 10*3/uL 0.01-0.07 H Lab Interpretation (test code = 04727-1) Abnormal [facility] GLUCOSE (AUTOMATED)2024-05-28 02:25:00* Test Item Value Reference Range Interpretation Comme nts POCT GLU (test code = 7513478577) 300 mg/dL 70-110 H Lab Interpretation (test cod e = 06724-5) Abnormal [facility] GLUCOSE (AUTOMATED)2024-05-27 21:33:01* Test Item Value Reference Range Interpretation Comme nts POCT GLU (test code = 5180700138) 371 mg/dL 70-110 H Lab Interpretation (test cod e = 14764-6) Abnormal [facility] GLUCOSE (AUTOMATED)2024-05-27 17:54:01* Test Item Value Reference Range Interpretation Comme nts POCT GLU (test code = 9646253363) 385 mg/dL 70-110 H Lab Interpretation (test cod e = 07200-4) Abnormal [facility] GLUCOSE (AUTOMATED)2024-05-27 14:08:02* Test Item Value Reference Range Interpretation Comme nts POCT GLU (test code = 8199225573) 247 mg/dL 70-110 H Lab Interpretation (test cod e = 41952-7) Abnormal [facility] GLUCOSE (AUTOMATED)2024-05-27 02:10:30* Test Item Value Reference Range Interpretation Comme nts POCT GLU (test code = 7890130048) 293 mg/dL 70-110 H Lab Interpretation (test cod e = 34974-0) Abnormal [facility] GLUCOSE (AUTOMATED)2024-05-26 22:41:02* Test Item Value Reference Range Interpretation Comme nts POCT GLU (test code = 8612184253) 357 mg/dL 70-110 H Lab Interpretation (test cod e = 90980-3) Abnormal [facility] GLUCOSE (AUTOMATED)2024-05-26 21:17:34* Test Item Value Reference Range Interpretation Comme nts POCT GLU (test code = 8162817347) 415 mg/dL 70-110 H Lab Interpretation (test cod e = 76697-6) Abnormal [facility] GLUCOSE (AUTOMATED)2024-05-26 17:43:58* Test Item Value Reference Range Interpretation Comme nts POCT GLU (test code = 8727358431) 379 mg/dL 70-110 H Lab Interpretation (test cod e = 81693-5) Abnormal [facility] GLUCOSE (AUTOMATED)2024-05-26 13:39:25* Test Item Value Reference Range Interpretation Comme nts POCT GLU (test code = 4597683193) 225 mg/dL 70-110 H Lab Interpretation (test cod e = 89181-6) Abnormal [facility] GLUCOSE (AUTOMATED)2024-05-26 06:09:28* Test Item Value Reference Range Interpretation Comme nts POCT GLU (test code = 4054650005) 235 mg/dL 70-110 H Lab Interpretation (test cod e = 15281-0) Abnormal [facility] GLUCOSE (AUTOMATED)2024-05-26 02:52:30* Test Item Value Reference Range Interpretation Comme nts POCT GLU (test code = 2125228914) 333 mg/dL 70-110 H Lab Interpretation (test cod e = 00411-9) [facility]2024-05-25 22:32:56* Test Item Value Reference Range Interpretation Comme nts POCT GLU (test code = 7216291299) 346 mg/dL 70-110 H Lab Interpretation (test cod e = 50984-8) Abnormal [facility] GLUCOSE (AUTOMATED)2024-05-25 17:21:54* Test Item Value Reference Range Interpretation Comme nts POCT GLU (test code = 8460346806) 328 mg/dL 70-110 H Lab Interpretation (test cod e = 73772-4) Abnormal [facility] GLUCOSE (AUTOMATED)2024-05-25 13:31:53* Test Item Value Reference Range Interpretation Comme nts POCT GLU (test code = 7481067425) 191 mg/dL 70-110 H Lab Interpretation (test cod e = 09254-0) Abnormal [facility] Thorax wo [id number] 04:28:23 EXAMINATION: CT THORAX WO CONTRAST ORDERING PHYSICIAN: MELISSA CULLEN HISTORY: Pneumonia, complication suspected, xray done Respiratory illness, nondiagnostic xray ? COMPARISON: No prior CT available for comparison. Comparison made to chestradiograph dated 05/24/2024 TECHNIQUE: CT of the chest without intravenous contrast. CT performedaccording to ALARA principles. TECHNICAL QUALITY: Adequate. FINDINGS:Medical devices: None. Lower neck:8-9 mm hypoattenuating nodule or cyst in the left thyroid lobe.No routine imaging follow-up is recommended for this lesion. No imagedsupraclavicular lymphadenopathy. Heart:The heart appears normal in size. No pericardial effusion.Multivessel coronary artery calcifications are present. Aortic valvularcalcifications are likely present. There is a left atrial appendage closuredevice in place. Great vessels: There appears to be a conventional three-vessel branchingpattern of the aortic arch. The thoracic aorta demonstrates extensiveatherosclerotic calcifications without aneurysmal dilation. The mainpulmonary artery is mildly dilated measuring up to 3.1 cmin diameter. Mediastinum:No pathologically enlarged mediastinal or hilar lymph nodeswithin the limits of a noncontrast exam. The esophagus images within normallimits. Small hiatal hernia. Lungs/pleura:The trachea and main bronchi are patent. Scatteredcentrilobular appearing nodularity and groundglass opacity is throughoutthe right lung, most prominent in the right lower lobe. No confluentairspaceconsolidation. There is diffuse bronchial wall thickening. Nofrankly suspicious pulmonary nodule ormass identified on this exam. Nopleural effusion. No pneumothorax. Normal position of the right and lefthemidiaphragm. Chest wall/axilla:No pathologically enlarged axillary lymph nodes. Nosignificantsoft tissue abnormality throughout the chest wall. Upper abdomen:The gallbladder is not visualized and is probably surgicallyabsent. Irregular, ill-defined lesion along the anterior aspect of theright kidney measuring approximately 3.3 x 2.4 cm corresponds to theenhancing solid mass seen on the prior CT of the abdomen and pelvis date07/09/2023. Bones:No acute or suspicious osseous abnormality. There is suspectedosseous demineralization. Mild superior endplate compression deformity atT12 with approximately 30-35% loss of vertebral body height. No bonyretropulsion. This appears similar to the previous exam. There isstraightening of the normal thoracic kyphosis.[facility] 1 [id number] 02:25:54Exam: Chest (1 View), 05/24/2024 7:00 PM. Ordering Physician: JEWEL SEXTON. History: Pneumonia. Technique: AP view of the chest. Technical Quality: Adequate. Comparison: Chest radiograph 10/23/2023. Findings: Stable cardiomegaly and thoracic aorta. Mild calcified atheroscleroticplaque in the descending thoracic aorta. ?No airspace consolidation,pleural effusion, or pneumothorax. No acute osseous abnormality. Unchanged mild dextroconvex curvature of theupper thoracic spine.[facility] HospitalTROPONIN [id number] 02:13:20* Test Item Value Reference Range Interpretation Comme nts TROPONIN I (test code = 6992453032) 0.017 ng/mL <=0.034 LOW (test code = LOW) Reference (Normal) [...] patient's use of biotin. Lab Interpretation (test code = 86321-6) Normal [facility] HospitalN-TERMINAL DBC-[id number] 02:10:39* Test Item Value Reference Range Interpretation Comme nts NT-proBNP (test code = 57153-2) 864 pg/mL <=125 LOW (test code = LOW) Result Indeterminate-Consid er causes of NT-proBNP elevation other than Heart failure such as acute coronary syndrome, pulmonary embolism, pulmonary hypertension, sepsis, stroke, and renal dysfunction. Lab Interpretation (test code = 93914-9) Abnormal [facility] HospitalCOM. METABOLIC PANEL (19225)2024-05-25 02:01:34* Test Item Value Reference Range Interpretation Comme nts NA (test code = 8460189920) 140 mmol/L 135-145 K (test code = 9233658042) 3.9 mmol/L 3.5-5.0 CL (test code = 2016702749) 103 mmol/L 98-108 CO2 TOTAL (test code = 6386046247) 28 mmol/L 23-31 AGAP (test code = 6112508173) 9 2-16 BUN (test code = 6480644183) 22 mg/dL 7-23 GLUCOSE (test code = 8760186149) 221 mg/dL 70-110 H CREATININE (test code = 2160-0) 0.73 mg/dL 0.50-1.04 TOTAL BILI (test code = 1546217674) 1.4 mg/dL 0.1-1.1 H CALCIUM (test code = 1046184548) 9.7 mg/dL 8.6-10.6 T PROTEIN (test code = 8150467278) 7.2 g/dL 6.3-8.2 ALBUMIN (test code = 4982226909) 3.9 g/dL 3.5-5.0 ALK PHOS (test code = 0057364779) 96 U/L 34-122 ALTv (test code = 1742-6) 39 U/L 5-35 H AST(SGOT) (test code = 5186721674) 73 U/L 13-40 H eGFR (test code = 93208-9) 83.8 mL/min/1.73m2 CKD-EPI eGFR (2020). Assuming creatinine has been stable day-to-day for at least three months, the eGFR indicates Category G2 (60 - 89 mL/min/1.73 m2) Lab Interpretation (test code = 64389-6) [facility]normal [facility] wo [id number] 01:54:55EXAM: CT HEAD WO CONTRAST HISTORY: Mental status change, unknown cause TECHNIQUE: CT of the head was performed without intravenous contrast.Sagittal and coronal reformats were generated. COMPARISON: Brain MRI dated 10/22/2023 FINDINGS: The ventricles and sulci are normal in caliber and configuration.Nohydrocephalus, midline shift or pathological extra-axial fluid collectionis present. The basal cisterns are unremarkable. 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 Scattered hypodensities in the periventricular and deep white matter,nonspecific, likely representing microvascular ischemic c hanges Thegray-white matter differentiation is preserved. Partial opacification of right frontal and right ethmoidal air cells withcomplete opacification of right sphenoid sinuses. The mastoid air cells areclear.. The calvarium and central skull base are unremarkable.[facility] HospitalCBC WITH [id number] 01:52:33* Test Item Value Reference Range Interpretation Comme nts WBC (test code = 6690-2) 12.39 4.30-11.10 H RBC (test code = 789-8) 4.34 3.93-5.25 HGB (test code = 718-7) 13.6 g/dL 11.6-15.0 HCT (test code = 4544-3) 41.8 % 35.7-45.2 MCV (test code = 787-2) 96.3 fL 80.6-95.5 H MCH (test code = 785-6) 31.3 pg 25.9-32.8 MCHC (test code = 786-4) 32.5 g/dL 31.6-35.1 RDW-SD (test code = 26635-6) 48.1 fL 39.0-49.9 RDW-CV (test code = 788-0) 13.4 % 12.0-15.5 PLT (test code = 777-3) 288 166-358 MPV (test code = 68682-7) 9.8 fL 9.5-12.9 NRBC/100 WBC (test code = 6946457052) 0.0 0.0-10.0 NRBC x10^3 (test code = 7403248349) See_Comment [Automated messa ge] The system which generated this result transmitted reference range: 10*3/?L. The reference range was not used to interpret this result as normal/abnormal. GRAN MAT (NEUT) % (test code = 770-8) 73.2 % IMM GRAN % (test code = 8371788664) 0.30 % LYMPH % (test code = 736-9) 14.0 % MONO % (test code = 5905-5) 11.8 % EOS % (test code = 713-8) 0.3 % BASO % (test code = 706-2) 0.4 % GRAN MAT x10^3(ANC) (test code = 3126859029) 9.06 10*3/uL 1.88-7.09 H IMM GRAN x10^3 (test code = 5326061790) 0.04 10*3/uL 0.00-0.06 LYMPH x10^3 (test code = 731-0) 1.74 10*3/uL 1.32-3.29 MONO x10^3 (test code = 742-7) 1.46 10*3/uL 0.33-0.92 H EOS x10^3 (test code = 711-2) 0.04 10*3/uL 0.03-0.39 BASO x10^3 (test code = 704-7) 0.05 10*3/uL 0.01-0.07 Lab Interpretation (test code = 23026-8) Abnormal [facility] HospitalElectrophysiology [id number] 13:01:20 Watchman Device ImplantationProcedure: Left Atrial Appendage Occlusion via a Watchman device Indication: Paroxysmal Atrial Fibrillation with a [id number] score >3 and intolerant to anticoagulation due to GI Bleeding. Technique: After obtaining informed consent the patient was prepped and draped in the usual sterile fashion. Monitored anesthesia care was initiated under anesthesia team guidance (see [facility] records). A transesophageal echocardiogram was performed. The left atrial appendage wasfree from clot. Measurements of the left atrial appendage were taken and were deemed appropriate for device implantation. Vascular access was obtained via the right femoral vein under ultrasound isak nce. A transseptal puncture was then performed. The left atrial pressure was found to be 19 mmHg. Heparin was given prior to placing a sheath into the left atrium. A long sheath was then advanced into the left atrium via the septostomy. The long sheath was then exchanged out for the Watchman delivery system. The pigtail was advanced to the left atrial appendage and a contrast injection was performed. Measurements of the left atrial appendage were then taken on fluoroscopic images. ?A 24 mm Watchman device was then deployed into the appendage. TED and contrast shot confirmed that the device was in an appropriate position. Tug test was then performed under cineangiography. The TED and repeat contrast injection showed that the device is well-seated with no leaks. This confirmed appropriate fixation. The device was then released. TED measurements and images confirmed appropriate device position. The Watchman sheath was removed from the heart and out of circulation. Hemostasis was achievedusing manual compression and a perclose hemostatic internal suture.The patient tolerated the procedure well and there were no acute complications. 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 Michael Bethea, MDCardiac Electrophysiology [facility] HospitalIntraoperative TED (guidance)2024-03-10 23:56:25* Test Item Value Reference Range Interpretation Comme nts Height (test code = 6251888005) 63 in Weight (test code = 4835462828) 184 lbs Systolic BP (test code = 4265395426) 153 mmHg Diastolic BP (test code = 8684068963) 69 mmHg Heart Rate (test code = 9854057358) 69 bpm BSA (test code = 5367453674) 1.87 m2 Radiology Study observation (narrative) (test code = 97405-5) LOW (test code = LOW) Table formatting f rom the original result was not included. ?Left?Ventricle: Left ventricle size is normal. Normal systolic function. ?Left?Atrium: Left atrium is dilated. Chicken wing appendage. ?Normal appendage flow velocity. EDGAR neck (landing zone) measures post 2.1 cm at 0 degrees. EDGAR neck (landing zone) measures Pre 1.7, post 1.8 cm and EDGAR length measures 2.0 cm at 45 degrees. EDGAR neck (landing zone) measures pre 2.2, post 2.1 cm and EDGAR length measures 2.2 cm at 90 degrees. EDGAR neck (landing zone) measures Pre 2.1, post 1.9 cm and EDGAR length measures 2.3 cm at 135 degrees. Device closure in the appendage with a Watchman Flx 24 without peridevice leak. No thrombus in left atrial appendage. ?Pericardium: Small pericardial effusion present, consistent in size post procedure. ?Intra-op TED for Watchman Flx 24 placement. VitalsHeight Weight BSA (Calculated - sq m) BP Pulse 5' 3" (1.6 m) 184 lb (83.5 kg) 1.92 sq meters 153/66 69 Left VentricleLeft ventricle size is normal. Normal systolic function.Right VentricleRight ventricle size is normal. Normal systolic function.Left AtriumLeft atrium is dilated. No PFO present by color Doppler. Chicken wing appendage. Normal appendage flow velocity. EDGAR neck (landing zone) measures post 2.1 cm at 0 degrees. EDGAR neck (landing zone) measures Pre 1.7, post 1.8 cm and EDGAR length measures 2.0 cm at 45 degrees. EDGAR neck (landing zone) measures pre 2.2, post 2.1 cm and EDGAR length measures 2.2 cm at 90 degrees. EDGAR neck (landing zone) measures Pre 2.1, post 1.9 cm and EDGAR length measures 2.3 cm at 135 degrees. Device closure in the appendage with a Watchman Flx 24 without peridevice leak. Normal flow patterns in the pulmonary veins. No thrombus in left atrial appendage.Right AtriumRight atrium size is normal.IVC/SVCIVC normal in size. SVC size is normal.Mitral ValveMitral valve structure is normal. Moderate posterior mitral annular calcification. Mild transvalvular regurgitation. No stenosis.Tricuspid ValveTricuspid valve structure is normal. Trace transvalvular regurgitation.Aortic ValveTricuspid. Mild transvalvular regurgitation. No hemodynamically significant .Pulmonic ValveValve structure is normal. Mild transvalvular regurgitation.Ascending AortaGrade 3 atherosclerosis of the aortic arch and descending aorta with moderate thickening.PericardiumSm all pericardial effusion present, consistent in size post procedure.Study DetailsA complete transesophageal echocardiogram was performed using complete 2D, color flow Doppler, spectral Doppler and complete 3D. During the study the esophageal, transgastric and descending thoracic views were captured. The probe was inserted by the light rail train operator. There was no probe insertion difficulty.There were 1 attempts to insert the probe. Probe in 08:54 am. Probe out 09:26 am. Sedation and monitoring provided by anesthesia, see Epic documentation. There were no complications during the procedure. Based on abnormal findings of 2D echocardiogram, 3D was performed on an acquisition scanner for further assessment of the left atrium. [facility] PROCEDURE [id number] 14:44:24Ordered by an unspecified provider.[facility] HospitalType and Screen - ONCE [id number] 13:12:00* Test Item Value Reference Range Interpretation Comme nts ABO & RH (test code = 20) A POSITIVE IAT (test code = 1185) Negative [facility] and Screen - ONCE [id number] 13:12:00* Test Item Value Reference Range Interpretation Comme nts ABO & RH (test code = 20) A POSITIVE IAT (test code = 1185) Negative [facility] GLUCOSE (AUTOMATED)2023-12-30 21:32:22* Test Item Value Reference Range Interpretation Comme nts POCT GLU (test code = 3541940685) 194 mg/dL 70-110 H Lab Interpretation (test cod e = 61485-1) Abnormal [facility] GLUCOSE (AUTOMATED)2023-12-30 20:51:25* Test Item Value Reference Range Interpretation Comme nts POCT GLU (test code = 1579881425) 297 mg/dL 70-110 H Lab Interpretation (test cod e = 81750-9) Abnormal [facility] GLUCOSE (AUTOMATED)2023-12-30 19:53:56* Test Item Value Reference Range Interpretation Comme nts POCT GLU (test code = 2072353935) 387 mg/dL 70-110 H Lab Interpretation (test cod e = 05466-4) [facility] 19:05:54* Test Item Value Reference Range Interpretation Comme nts POCT GLU (test code = 2258003410) 536 mg/dL 70-110 HH Lab Interpretation (test cod e = 91767-1) Abnormal [facility]. METABOLIC PANEL (45959)2023-12-30 18:42:41* Test Item Value Reference Range Interpretation Comme nts NA (test code = 7839581495) 132 mmol/L 135-145 L K (test code = 1312445138) 4.1 mmol/L 3.5-5.0 CL (test code = 3169180835) 92 mmol/L 98-108 L CO2 TOTAL (test code = 1319878247) 30 mmol/L 23-31 AGAP (test code = 3789133988) 10 2-16 BUN (test code = 3485818290) 23 mg/dL 7-23 GLUCOSE (test code = 6621760154) 544 mg/dL 70-110 HH CREATININE (test code = 2160-0) 0.78 mg/dL 0.50-1.04 TOTAL BILI (test code = 3965991104) 1.2 mg/dL 0.1-1.1 H CALCIUM (test code = 3914947716) 9.3 mg/dL 8.6-10.6 T PROTEIN (test code = 4114782275) 7.5 g/dL 6.3-8.2 ALBUMIN (test code = 0228677125) 4.1 g/dL 3.5-5.0 ALK PHOS (test code = 8381599588) 73 U/L 34-122 ALTv (test code = 1742-6) 17 U/L 5-35 AST(SGOT) (test code = 7027293266) 38 U/L 13-40 eGFR (test code = 83752-7) 77.9 mL/min/1.73m2 CKD-EPI eGFR (2020). Assuming creatinine has been stable day-to-day for at least three months, the eGFR indicates Category G2 (60 - 89 mL/min/1.73 m2) Lab Interpretation (test code = 99034-4) Abnormal [facility] WITH [id number] 18:18:31* Test Item Value Reference Range Interpretation Comme nts WBC (test code = 6690-2) 7.71 4.30-11.10 RBC (test code = 789-8) 4.41 3.93-5.25 HGB (test code = 718-7) 13.9 g/dL 11.6-15.0 HCT (test code = 4544-3) 41.7 % 35.7-45.2 MCV (test code = 787-2) 94.6 fL 80.6-95.5 MCH (test code = 785-6) 31.5 pg 25.9-32.8 MCHC (test code = 786-4) 33.3 g/dL 31.6-35.1 RDW-SD (test code = 85808-6) 47.3 fL 39.0-49.9 RDW-CV (test code = 788-0) 13.5 % 12.0-15.5 PLT (test code = 777-3) 251 166-358 MPV (test code = 59732-8) 10.5 fL 9.5-12.9 NRBC/100 WBC (test code = 4132323624) 0.0 0.0-10.0 NRBC x10^3 (test code = 8987702205) See_Comment [Automated me ssage] The system which generated this result transmitted reference range: 10*3/?L. The reference range was not used to interpret this result as normal/abnormal. GRAN MAT (NEUT) % (test code = 770-8) 70.6 % IMM GRAN % (test code = 7517463008) 0.40 % LYMPH % (test code = 736-9) 20.4 % MONO % (test code = 5905-5) 6.5 % EOS % (test code = 713-8) 1.7 % BASO % (test code = 706-2) 0.4 % GRAN MAT x10^3(ANC) (test code = 1208167022) 5.45 10*3/uL 1.88-7.09 IMM GRAN x10^3 (test code = 2254340569) 0.03 10*3/uL 0.00-0.06 LYMPH x10^3 (test code = 731-0) 1.57 10*3/uL 1.32-3.29 MONO x10^3 (test code = 742-7) 0.50 10*3/uL 0.33-0.92 EOS x10^3 (test code = 711-2) 0.13 10*3/uL 0.03-0.39 BASO x10^3 (test code = 704-7) 0.03 10*3/uL 0.01-0.07 [facility] + Lactic [id number] 17:52:11* Test Item Value Reference Range Interpretation Comme nts PH (test code = 4493180545) 7.42 7.32-7.42 PCO2 CARROL (test code = 3286105002) 43 41-51 PO2 CARROL (test code = 2159510928) 33 25-40 HCO3 CARROL (test code = 4671279328) 27 24-28 AC VBE(BEAKER) (test code = 8854302484) 2.2 mEq/L THB CARROL (test code = 7826571957) 14.9 g/dL 12.0-16.0 %O2HB CARROL (test code = 5352087923) 66.9 % 52.0-63.0 H %COHB CARROL (test code = 2428543371) 0.7 % 0.0-1.5 %METHB CARROL (test code = 2803260920) 0.0 % 0.4-1.5 L VOL%O2 CARROL (test code = 0192716664) 14.0 % 6.0-12.0 H NA (test code = 4717591138) 128 mmol/L 135-145 L K+ (test code = 3024973267) 4.0 mmol/L 3.5-5.0 AC CA IONZ (test code = 9327992285) 4.90 mg/dL 4.50-5.30 GLUCOSE (test code = 8055025053) 541 mg/dL 70-110 HH LACTIC ACID (test code = 1556442827) 1.49 mmol/L 0.50-2.20 Lab Interpretation (test cod e = 43404-2) Abnormal [facility] Cpxz3824-14-60 16:44:00Jewel Sexton MD ? ? 12/30/2023 ?4:50 PMCritical Care Performed by: Jewel Sexton MDAuthorizedby: Jewel Sexton MD ?Critical care provider statement: ?Critical care time (minutes): ?45 ?Critical care time was exclusive of: ?Separately billable procedures and treating other patients and teaching time ?Critical care was necessary to treat or prevent imminent or life-threatening deterioration of the following conditions: ?Metabolic crisis ?Critical care was time spent personally by me on the following activities: ?Development of treatment plan with patient or surrogate, evaluation of patient's response to treatment, examination of patient, obtaining history from patient or surrogate, ordering and performing treatments and interventions, ordering and review of laboratory studies, ordering and review of radiographic studies, pulse oximetry, re- evaluation of patient's condition and review of old charts ?Care discussed with: admitting provider ?Comments: ? Due to a high probability of clinically significant, life threatening deterioration, the patient required my highest level of preparedness to intervene emergently and I personally spent this critical care time directly and personally managing the patient. This critical care time included obtaining a history; examining the patient; pulse oximetry; ordering and review of studies; arranging urgent treatment with development of a management plan; evaluation of patient's response to treatment; frequent reassessment; and, discussions with other providers.This critical care time was performed to assess and manage the high probability of imminent, life- threatening deterioration that could result in multi-organ failure. It was exclusive of separately billable procedures and treating other patients. [facility] GLUCOSE (AUTOMATED)2023-10-26 21:33:56* Test Item Value Reference Range Interpretation Comme nts POCT GLU (test code = 7381054791) 237 mg/dL 70-110 H Lab Interpretation (test cod e = 02312-8) Abnormal [facility] GLUCOSE (AUTOMATED)2023-10-26 16:50:55* Test Item Value Reference Range Interpretation Comme nts POCT GLU (test code = 9078232539) 275 mg/dL 70-110 H Lab Interpretation (test cod e = 42372-7) Abnormal [facility] GLUCOSE (AUTOMATED)2023-10-26 12:45:21* Test Item Value Reference Range Interpretation Comme nts POCT GLU (test code = 3294144826) 140 mg/dL 70-110 H Lab Interpretation (test cod e = 19430-8) [facility] 01:03:15* Test Item Value Reference Range Interpretation Comme nts POCT GLU (test code = 7844335758) 167 mg/dL 70-110 H Lab Interpretation (test cod e = 34673-4) Abnormal [facility] GLUCOSE (AUTOMATED)2023-10-25 21:28:18* Test Item Value Reference Range Interpretation Comme nts POCT GLU (test code = 5755393207) 214 mg/dL 70-110 H Lab Interpretation (test cod e = 99487-3) Abnormal [facility] GLUCOSE (AUTOMATED)2023-10-25 16:53:45* Test Item Value Reference Range Interpretation Comme nts POCT GLU (test code = 4879511708) 286 mg/dL 70-110 H Lab Interpretation (test cod e = 40714-3) Abnormal [facility] GLUCOSE (AUTOMATED)2023-10-25 12:52:34* Test Item Value Reference Range Interpretation Comme nts POCT GLU (test code = 1603046297) 215 mg/dL 70-110 H Lab Interpretation (test cod e = 44609-2) Abnormal [facility] GLUCOSE (AUTOMATED)2023-10-25 04:46:32* Test Item Value Reference Range Interpretation Comme nts POCT GLU (test code = 1927151369) 246 mg/dL 70-110 H Lab Interpretation (test cod e = 32203-9) Abnormal [facility] GLUCOSE (AUTOMATED)2023-10-25 01:43:40* Test Item Value Reference Range Interpretation Comme nts POCT GLU (test code = 7804177448) 311 mg/dL 70-110 H Lab Interpretation (test cod e = 58518-0) Abnormal [facility] GLUCOSE (AUTOMATED)2023-10-24 21:22:00* Test Item Value Reference Range Interpretation Comme nts POCT GLU (test code = 6517848627) 260 mg/dL 70-110 H Lab Interpretation (test cod e = 43134-7) [facility]-24 16:37:57* Test Item Value Reference Range Interpretation Comme nts POCT GLU (test code = 0014098917) 233 mg/dL 70-110 H Lab Interpretation (test cod e = 16326-9) [facility]2023-10-24 12:40:52* Test Item Value Reference Range Interpretation Comme nts POCT GLU (test code = 4767651800) 240 mg/dL 70-110 H Lab Interpretation (test cod e = 16563-8) [facility]23-10-24 05:29:09* Test Item Value Reference Range Interpretation Comme nts POCT GLU (test code = 1963154265) 360 mg/dL 70-110 H Lab Interpretation (test cod e = 58331-3) [facility]2023-10-24 01:58:14* Test Item Value Reference Range Interpretation Comme nts POCT GLU (test code = 3817986821) 367 mg/dL 70-110 H Lab Interpretation (test cod e = 45374-3) [facility]normal [facility]2023-10-23 21:27:33* Test Item Value Reference Range Interpretation Comme nts POCT GLU (test code = 5899126232) 349 mg/dL 70-110 H Lab Interpretation (test cod e = 15274-8) Abnormal [facility] GLUCOSE (AUTOMATED)2023-10-23 18:02:56* Test Item Value Reference Range Interpretation Comme nts POCT GLU (test code = 3107569067) 477 mg/dL 70-110 HH Lab Interpretation (test cod e = 43094-8) [facility]normal [facility]2023-10-23 16:43:25* Test Item Value Reference Range Interpretation Comme nts POCT GLU (test code = 5499564090) 428 mg/dL 70-110 H Lab Interpretation (test cod e = 83781-2) [facility]normal [facility] [id number] 13:25:40EXAM: XR CHEST 1 VW HISTORY: 78 years-old Female; Provided indication: Low saturation, withshallow breathing . TECHNIQUE: Single frontal view of the chest. COMPARISON: Radiograph dated 11/08 FINDINGS:Normal lung volumes. Subtle hazy left lower lobe opacities. Minimal streakylinear scarring or subsegmental atelectasis at the right lower lung. Nopleural effusion or pneumothorax. The cardiomediastinal silhouette is normal in size accounting fortechnique. No focal osseous lesions or acute osseous findings are detected.[facility] GLUCOSE (AUTOMATED)2023-10-23 12:42:59* Test Item Value Reference Range Interpretation Comme [facility] POCT GLU (test code = 4268273414) 222 mg/dL 70-110 H Lab Interpretation (test cod e = 83675-2) Abnormal [facility] GLUCOSE (AUTOMATED)2023-10-23 01:10:38* Test Item Value Reference Range Interpretation Comme [facility] POCT GLU (test code = 6171462897) 291 mg/dL 70-110 H Lab Interpretation (test cod e = 83172-9) [facility] (TTE) 2023-10-22 21:50:27* Test Item Value Reference Range Interpretation Comme [facility] Height (test code = 8868649860) 63 in Weight (test code = 6366959150) 189 lbs Systolic BP (test code = 6133792854) 156 mmHg Diastolic BP (test code = 1961359614) 69 mmHg Heart Rate (test code = 2894131182) 90 bpm BSA (test code = 3127111133) 1.89 m2 Ao root diam (test code = 9574577586) 3.40 cm Aortic root (test code = 2977358629) 3.4 cm Ao root annulus (test code = 1921804526) 3.4 cm EF(Teich) (test code = 5537931923) 52.30 % LVIDD (test code = 2176916276) 4.30 cm Left Ventricular End Diastolic Volume by Teichholz Method (test code = 8550024) 81.3 mL FS (test code = 5042641248) 27 % EF - 2D (test code = 26009211) 52.30 % LVPWD (test code = 1968883646) 1.30 cm PW (test code = 6234395784) 1.30 cm 0.6-1.1 MV Peak E Rohini (test code = 0112242840) 75.3 cm/s MV Peak A Rohini (test code = 6928866360) 134.7 cm/s E/A ratio (test code = 5060679285) 0.56 ratio E wave decelartion time (test code = 1817331720) 0.21 s MV stenosis pressure 1/2 time (test code = 4697738267) 64.2 ms MV E/e' septal (test code = 3179256787) 5.0 cm/s Tapse (test code = 8823282821) 2.21 cm LVOT peak rohini (test code = 4518270410) 105.3 cm/s LVOT mn grad (test code = 2636621809) 2.7 mmHg AV LVOT peak gradient (test code = 1672546743) 4.4 mmHg LVOT peak VTI (test code = 5369180738) 21.5 cm LV V1 mean (test code = 4739561515) 78.30 cm/s Aortic valve mean velocity (test code = 6535538732) 163.6 cm/s Ao peak rohini (test code = 5367750425) 210.5 cm/s Ao VTI (test code = 7336541558) 42.8 cm Ao max PG (test code = 5687688546) 17.70 mm[Hg] AV peak gradient (test code = 1259795120) 17.7 mmHg AV mean gradient (test code = 7611150114) 11.5 mmHg AI max rohini (test code = 1713008817) 367.00 cm/s AI max PG (test code = 1620243065) 53.90 mm[Hg] IVS (test code = 5349932718) 1.31 cm Interventricular Septum Diastolic Thickness by 2D (test code = 1055732) 1.31 cm LVIDS (test code = 0522856232) 3.10 cm Left Ventricular End Systolic Volume by Teichholz Method (test code = 9947788) 38.8 mL LVOT stroke volume (test code = 7779615343) 66.50 cm3 LVOT diameter (test code = 7884943733) 1.98 cm LVOT area (test code = 7207372047) 3.10 cm2 AV area by cont VTI (test code = 6446223605) 1.6 cm2 AV area peak rohini (test code = 3007226982) 1.6 cm2 AV valve area (test code = 0482598716) 1.55 cm2 LA size (test code = 3977658910) 4.2 cm TR Peak Rohini (test code = 3282871123) 317.4 cm/s Triscuspid Valve Regurgitation Peak Gradient (test code = 9683565944) 40.3 mmHg LAV(MOD-sp4) (test code = 3511597036) 53.00 mL MV Prop V (test code = 8031308845) 52.70 cm/s AV regurgitation pressure 1/2 time (test code = 8732212420) 642.2 ms AI dec slope (test code = 1494981077) 167.40 cm/s2 Radiology Study observation (narrative) (test code = 77642-3) LOW (test code = LOW) ?Left?Ventricle: Left ventricle size is normal. Mildly increased wall thickness. Septal motion is consistent with bundle branch block. No regional wall motion abnormalities. Global hypokinesis present. Low normal systolic function with a visually estimated EF of 50 - 55%. There is impaired relaxation. ?Right?Ventricle: Right ventricle is mildly dilated. Normal systolic function. ?Left?Atrium: Left atrium size is normal. Saline contrast shows no shunt. ?Aortic?Valve: Mild transvalvular regurgitation. Consistent with mild aortic stenosis. LVOT diameter is 2.1 cm. AV area by continuity VTI is 1.6 cm2. Peak velocity 2.2 m/sec. Mean gradient 12.6 mmHg. ?Tricuspid?Valve: Mild transvalvular regurgitation. There is moderate pulmonary hypertension. ?Right ventricular systolic pressure is 40-45 mmHg. ?RA pressure is 0-5 mmHg. Left VentricleLeft ventricle size is normal. Mildly increased wall thickness. Septal motion is consistent with bundle branch block. No regional wall motion abnormalities. Global hypokinesis present. Low normal systolic function with a visually estimated EF of 50 - 55%. There is impaired relaxation.Right VentricleRight ventricle is mildly dilated. Normal systolic function.Left AtriumLeft atrium size is normal. Saline contrast shows no shunt.Right AtriumNot well visualized.IVC/SVCIVC diameter is less than or equal to 21 mm and decreases greater than 50% during inspiration; therefore the estimated right atrial pressure is normal (~0-5 mmHg).Mitral ValveMildly thickened leaflets. Mildly calcified leaflets. Mild mitral annular calcification. Trace transvalvular regurgitation. No stenosis.Tricuspid ValveTricuspid valve structure is normal. Mild transvalvular regurgitation. There is moderate pulmonary hypertension. Right ventricular systolic pressure is 40-45 mmHg. RA pressure is 0-5 mmHg. No stenosis.Aortic ValveTricuspid. Mildly thickened cusps. Mildly calcified cusps. Moderate annular calcification. Mild transvalvular regurgitation. Consistent with mild aortic stenosis. LVOT diameter is 2.1 cm. AV area by continuity VTI is 1.6 cm2. Peak velocity 2.2 m/sec. Mean gradient 12.6 mmHg.Pulmonic ValveNot well visualized. Trace transvalvular regurgitation. No stenosis.Ascending AortaNormal sized aorta.PericardiumEvid ence of epicardial fat. No pericardial effusion.Study DetailsStudy quality experienced technical difficulty. A complete echocardiogram was performed using 2D, color flow Doppler and spectral Doppler. Saline contrast was performed. [facility] GLUCOSE (AUTOMATED)2023-10-22 21:28:36* Test Item Value Reference Range Interpretation Comme [facility] POCT GLU (test code = 4454380771) 217 mg/dL 70-110 H Lab Interpretation (test cod e = 44624-8) Abnormal [facility] BRAIN WO [id number] 19:30:26EXAM: MR BRAIN WO CONTRAST HISTORY: Neuro deficit, acute, stroke suspected S/SX, Dx: Stroke TECHNIQUE: MRI of the brain was performed on 1.5 Margret without intravenouscontrast. COMPARISON: Same day CThead. FINDINGS: Diffusion restriction with correlating T2/FLAIR hyperintensity noted in theleft kev ventricular temporoparietal lobe. Additional punctate foci ofdiffusion restriction noted in the left temporal lobe and right precentralgyrus. The ventricles and sulci are prominent suggestive of milddegree of globalcerebral volume loss. No hydrocephalus, midline shift or pathologicalextra-axial fluid collection. Basal cisterns are unremarkable. Scattered and patchy periventricular and deep whitematter T2/FLAIRhyperintensities, nonspecific, likely representing microvascular ischemicchanges. [id number] void of intracranial vessels is unremarkable. Retention cyst is noted in the right sphenoid sinus. No abnormal signal inthe remainder of paranasal sinuses or mastoid air cells. [facility] GLUCOSE (AUTOMATED)2023-10-22 16:41:55* Test Item Value Reference Range Interpretation Comme nts POCT GLU (test code = 7305798510) 268 mg/dL 70-110 H Lab Interpretation (test cod e = 35549-5) [facility] [id number] 13:38:42EXAM: XR CHEST 1 VW HISTORY: 78 years-old Female; Provided indication: altered mental status . TECHNIQUE: Single frontal view of the chest. COMPARISON: Radiograph dated 2023 FINDINGS: The lungsare well-expanded. No new consolidation or pleural abnormality isvisualized. Improved interstitial edema trace residual or chronicinterstitial changes/scarring. The cardiomediastinal silhouette is normal in size accounting fortechnique. No focal osseous lesions or acute osseous findings are detected.[facility] 2023-10-22 13:33:51EXAM: CT HEAD WO CONTRAST HISTORY:3 Increasing confusion since Thursday. TECHNIQUE: Axial CT of the head was performed and reconstructed at 5 mmintervals. Coronal and sagittal reformatted images were generated. COMPARISON: 02/02/2023 FINDINGS: The ventricles and cerebral sulci are normal in caliber and configuration.No midline shift or pathological extra-axial fluid collection is present.The basal cisterns are unremarkable. No acute intracranial hemorrhage or significant mass effect is visualized.An age-indeterminate infarct of the left parietal lobe is annotated onseries 10 image 45, but new sin ce the prior study. Periventricular hypodensities are nonspecific but likely representsequelae of microvascular ischemic disease. The veras-white matterdifferentiation is preserved. There is partial opacification of the right sphenoid sinus. The mastoid aircells and paranasal air sinuses are otherwise clear. The calvarium andcentral skull base are unremarkable.[facility]2023-10-22 12:29:57* Test Item Value Reference Range Interpretation Comme nts POCT GLU (test code = 6808718149) 202 mg/dL 70-110 H Lab Interpretation (test cod e = 27790-7) Abnormal [facility] HospitalFasting Lipd Panel (49864)(TOTAL CHOLESTEROL, TRIGLYCERIDES, HDL)2023-10-22 11:49:04* Test Item Value Reference Range Interpretation Comme nts CHOL (test code = 0515153899) 201 mg/dL 120-200 H HDL (test code = 0508590165) 33 mg/dL >=50 L HDLC RATIO (test code = 0732551093) 6.1 <=4.5 H TRIG (test code = 0425422575) 189 mg/dL 30-170 H LDL CHOL (test code = 09302-1) 130 mg/dL <=160 VLDL (test code = 4355007655) 38 mg/dL 5-60 Lab Interpretation (test cod e = 70905-5) Abnormal [facility] HospitalGlycosyated Hemoglobin (A1C)2023-10-22 09:26:35* Test Item Value Reference Range Interpretation Comme [facility] HGB A1C (test code = 4548-4) 10.5 % 4.0-5.7 H LOW (test code = LOW) Reference RangesNormal: <5.7%Prediabetes: 5.7 - 6.4%Diabetes: > 6.5% Lab Interpretation (test code = 38362-4) Abnormal [facility]2023-10-22 07:28:58* Test Item Value Reference Range Interpretation Comme [facility] POCT GLU (test code = 3754632634) 205 mg/dL 70-110 H Lab Interpretation (test cod e = 33420-5) Abnormal [facility] HospitalTroponin [id number] 04:19:58* Test Item Value Reference Range Interpretation Comme [facility] TROPONIN I (test code = 4594147191) 0.003 ng/mL <=0.034 LOW (test code = LOW) Reference (Normal) [...] patient's use of biotin. Lab Interpretation (test code = 33844-4) Normal [facility] HospitalCK (Creatine Kinase) + [id number] 04:16:54* Test Item Value Reference Range Interpretation Comme nts CK (test code = 9978277436) 54 U/L 33-194 CK-MB (test code = 8445393467) 0.47 ng/mL <=3.50 CKMB INDEX (test code = 5075489380) 0.9 % 0.0-2.5 LOW (test code = LOW) Biotin has been reported to cause a negative bias, interpret results relative to patient's use of biotin. Lab Interpretation (test code = 56466-0) Normal [facility] HospitalComp. Metabolic Panel (61052)2023-10-22 04:09:37* Test Item Value Reference Range Interpretation Comme nts NA (test code = 9617718895) 137 mmol/L 135-145 K (test code = 9589921761) 4.0 mmol/L 3.5-5.0 CL (test code = 2461242465) 100 mmol/L 98-108 CO2 TOTAL (test code = 3090857442) 26 mmol/L 23-31 AGAP (test code = 7316452107) 11 2-16 BUN (test code = 3919031746) 22 mg/dL 7-23 GLUCOSE (test code = 1301086245) 240 mg/dL 70-110 H CREATININE (test code = 2160-0) 0.89 mg/dL 0.50-1.04 TOTAL BILI (test code = 3398917194) 1.0 mg/dL 0.1-1.1 CALCIUM (test code = 2392482685) 10.1 mg/dL 8.6-10.6 T PROTEIN (test code = 7215889805) 7.7 g/dL 6.3-8.2 ALBUMIN (test code = 5680358362) 4.4 g/dL 3.5-5.0 ALK PHOS (test code = 3762325375) 63 U/L 34-122 ALTv (test code = 1742-6) 21 U/L 5-35 AST(SGOT) (test code = 2847534538) 27 U/L 13-40 eGFR (test code = 52909-9) 66.5 mL/min/1.73m2 CKD-EPI eGFR (2020). Assuming creatinine has been stable day-to-day for at least three months, the eGFR indicates Category G2 (60 - 89 mL/min/1.73 m2) Lab Interpretation (test code = 64974-0) Abnormal [facility] HospitalLipase2024-06-06 04:09:17* Test Item Value Reference Range Interpretation Comme nts LIPASE (test code = 0390910078) 50 U/L 0-220 Lab Interpretation (test cod e = 39951-1) Normal [facility] HospitalCbc with [id number] 03:54:52* Test Item Value Reference Range Interpretation Comme nts WBC (test code = 6690-2) 8.34 4.30-11.10 RBC (test code = 789-8) 4.70 3.93-5.25 HGB (test code = 718-7) 14.7 g/dL 11.6-15.0 HCT (test code = 4544-3) 44.4 % 35.7-45.2 MCV (test code = 787-2) 94.5 fL 80.6-95.5 MCH (test code = 785-6) 31.3 pg 25.9-32.8 MCHC (test code = 786-4) 33.1 g/dL 31.6-35.1 RDW-SD (test code = 67771-3) 49.7 fL 39.0-49.9 RDW-CV (test code = 788-0) 14.3 % 12.0-15.5 PLT (test code = 777-3) 275 166-358 MPV (test code = 55719-6) 9.9 fL 9.5-12.9 NRBC/100 WBC (test code = 3086540509) 0.0 0.0-10.0 NRBC x10^3 (test code = 3255198077) See_Comment [Automated me ssage] The system which generated this result transmitted reference range: 10*3/?L. The reference range was not used to interpret this result as normal/abnormal. GRAN MAT (NEUT) % (test code = 770-8) 67.0 % IMM GRAN % (test code = 5839803106) 0.40 % LYMPH % (test code = 736-9) 22.3 % MONO % (test code = 5905-5) 8.5 % EOS % (test code = 713-8) 1.2 % BASO % (test code = 706-2) 0.6 % GRAN MAT x10^3(ANC) (test code = 4049242700) 5.59 10*3/uL 1.88-7.09 IMM GRAN x10^3 (test code = 5304732097) 0.03 10*3/uL 0.00-0.06 LYMPH x10^3 (test code = 731-0) 1.86 10*3/uL 1.32-3.29 MONO x10^3 (test code = 742-7) 0.71 10*3/uL 0.33-0.92 EOS x10^3 (test code = 711-2) 0.10 10*3/uL 0.03-0.39 BASO x10^3 (test code = 704-7) 0.05 10*3/uL 0.01-0.07 [facility] [id number] 03:31:36ORDERING PHYSICIAN: JOSUE HODGES HISTORY: Epigastric pain TECHNIQUE: CT abdomen and pelvis with intravenous contrast. Thisexamination was performed according to ALARA principles. COMPARISON: 02/02/2023. FINDINGS:Visualized lower chest: Within normal limits. Hepatobiliary: The gallbladder is surgically absent. Liver, spleen, andpancreas are within normal limits. ? Genitourinary: Adrenal glands are unremarkable. 2.7 cm enhancing lesion ofthe anterior interpolar right kidney is present. This is similar in sizecompared to the 02/02/2023 study. Urinary bladder is unremarkable.Hysterectomy Bowel: Stomach, small, and large bowel are normal in caliber. Small hiatalhernia is noted.. No evidence of acute appendicitis. Vascular and retroperitoneum: Aorta and inferior vena cava are withinnormal limits. No lymphadenopathy. Bones: No acute abnormality.[facility]. Metabolic Panel ([id number]) 2023-07-10 01:47:51* Test Item Value Reference Range Interpretation Comme nts NA (test code = 7234082129) 137 mmol/L 135-145 K (test code = 0751323072) 3.5 mmol/L 3.5-5.0 CL (test code = 1271532055) 100 mmol/L 98-108 CO2 TOTAL (test code = 0670681137) 29 mmol/L 23-31 AGAP (test code = 6068176067) 8 2-16 BUN (test code = 8219146924) 20 mg/dL 7-23 GLUCOSE (test code = 6636819124) 167 mg/dL 70-110 H CREATININE (test code = 2160-0) 0.86 mg/dL 0.50-1.04 TOTAL BILI (test code = 7997116379) 0.8 mg/dL 0.1-1.1 CALCIUM (test code = 3882834299) 9.9 mg/dL 8.6-10.6 T PROTEIN (test code = 4661109401) 7.6 g/dL 6.3-8.2 ALBUMIN (test code = 3468264557) 4.3 g/dL 3.5-5.0 ALK PHOS (test code = 8356761961) 55 U/L 34-122 ALTv (test code = 1742-6) 20 U/L 5-35 AST(SGOT) (test code = 2121378501) 29 U/L 13-40 eGFR (test code = 13764-3) 69.2 mL/min/1.73m2 CKD-EPI eGFR (2020). Assuming creatinine has been stable day-to-day for at least three months, the eGFR indicates Category G2 (60 - 89 mL/min/1.73 m2) Lab Interpretation (test code = 92043-0) [facility]47:[facility]* Test Item Value Reference Range Interpretation Comme nts LIPASE (test code = 9751628349) 67 U/L 0-220 Lab Interpretation (test cod e = 54975-3) Normal [facility] with [id number] 01:44:05* Test Item Value Reference Range Interpretation Comme nts WBC (test code = 6690-2) 8.38 4.30-11.10 RBC (test code = 789-8) 4.77 3.93-5.25 HGB (test code = 718-7) 13.9 g/dL 11.6-15.0 HCT (test code = 4544-3) 42.7 % 35.7-45.2 MCV (test code = 787-2) 89.5 fL 80.6-95.5 MCH (test code = 785-6) 29.1 pg 25.9-32.8 MCHC (test code = 786-4) 32.6 g/dL 31.6-35.1 RDW-SD (test code = 92666-8) 53.8 fL 39.0-49.9 H RDW-CV (test code = 788-0) 16.4 % 12.0-15.5 H PLT (test code = 777-3) 246 166-358 MPV (test code = 79615-4) 9.8 fL 9.5-12.9 NRBC/100 WBC (test code = 9968617275) 0.0 0.0-10.0 NRBC x10^3 (test code = 0114116201) See_Comment [Automated messa ge] The system which generated this result transmitted reference range: 10*3/?L. The reference range was not used to interpret this result as normal/abnormal. GRAN MAT (NEUT) % (test code = 770-8) 64.7 % IMM GRAN % (test code = 4357137631) 0.40 % LYMPH % (test code = 736-9) 23.5 % MONO % (test code = 5905-5) 9.4 % EOS % (test code = 713-8) 1.4 % BASO % (test code = 706-2) 0.6 % GRAN MAT x10^3(ANC) (test code = 1721464614) 5.42 10*3/uL 1.88-7.09 IMM GRAN x10^3 (test code = 3885414166) 0.03 10*3/uL 0.00-0.06 LYMPH x10^3 (test code = 731-0) 1.97 10*3/uL 1.32-3.29 MONO x10^3 (test code = 742-7) 0.79 10*3/uL 0.33-0.92 EOS x10^3 (test code = 711-2) 0.12 10*3/uL 0.03-0.39 BASO x10^3 (test code = 704-7) 0.05 10*3/uL 0.01-0.07 Lab Interpretation (test code = 12157-5) Abnormal [facility] [id number] 22:02:22* Test Item Value Reference Range Interpretation Comme nts TROPONIN I (test code = 1269904540) 0.019 ng/mL <=0.034 LOW (test code = LOW) Reference (Normal) [...] patient's use of biotin. Lab Interpretation (test code = 47912-4) Normal [facility] [id number] 21:59:59* Test Item Value Reference Range Interpretation Comme [facility] NT-proBNP (test code = 74848-4) 7650 pg/mL <=125 H LOW (test code = LOW) Positive: Heart Failure Likely Lab Interpretation (test code = 43036-6) [facility]normal [facility]OLIC PAN[facility] ([id number])2023 21:50:36* Test Item Value Reference Range Interpretation Comme nts NA (test code = 1290404405) 141 mmol/L 135-145 K (test code = 0674607925) 4.1 mmol/L 3.5-5.0 CL (test code = 7234057816) 104 mmol/L 98-108 CO2 TOTAL (test code = 2322476843) 25 mmol/L 23-31 AGAP (test code = 8985333367) 12 2-16 BUN (test code = 8725071309) 8 mg/dL 7-23 GLUCOSE (test code = 4576369258) 108 mg/dL 70-110 CREATININE (test code = 9521783541) 0.57 mg/dL 0.50-1.04 TOTAL BILI (test code = 1275443171) 0.7 mg/dL 0.1-1.1 CALCIUM (test code = 5994089581) 9.8 mg/dL 8.6-10.6 T PROTEIN (test code = 7953015497) 6.9 g/dL 6.3-8.2 ALBUMIN (test code = 0655943962) 4.0 g/dL 3.5-5.0 ALK PHOS (test code = 5908177452) 60 U/L 34-122 ALTv (test code = 1742-6) 13 U/L 5-35 AST(SGOT) (test code = 5102309558) 48 U/L 13-40 H eGFR (test code = 89470-9) 93.2 mL/min/1.73m2 CKD-EPI eGFR (2020). Assuming creatinine has been stable day-to-day for at least three months, the eGFR indicates Category G1 (>= 90 mL/min/1.73 m2) Lab Interpretation (test code = 21741-3) [facility]normal [facility]2023-[facility]-15 21:50:36* Test Item Value Reference Range Interpretation Comme nts MAGNESIUM (test code = 3766172062) 1.6 mg/dL 1.7-2.4 L Lab Interpretation (test cod e = 76263-4) Abnormal [facility] WITH [id number] 21:13:29* Test Item Value Reference Range Interpretation Comme nts WBC (test code = 6690-2) 8.42 See_Comment [Automated [employer]] The system which generated this result transmitted reference range: 4.30 - 11.10 10*3/?L. The reference range was not used to interpret this result as normal/abnormal. RBC (test code = 789-8) 4.22 See_Comment [Automated [employer]] The system which generated this result transmitted reference range: 3.93 - 5.25 10*6/?L. The reference range was not used to interpret this result as normal/abnormal. HGB (test code = 718-7) 11.6 g/dL 11.6-15.0 HCT (test code = 4544-3) 36.9 % 35.7-45.2 MCV (test code = 787-2) 87.4 fL 80.6-95.5 MCH (test code = 785-6) 27.5 pg 25.9-32.8 MCHC (test code = 786-4) 31.4 g/dL 31.6-35.1 L RDW-SD (test code = 89840-4) 65.1 fL 39.0-49.9 H RDW-CV (test code = 788-0) 19.9 % 12.0-15.5 H PLT (test code = 777-3) 279 See_Comment [Automated [employer] ge] The system which generated this result transmitted reference range: 166 - 358 10*3/?L. The reference range was not used to interpret this result as normal/abnormal. MPV (test code = 69895-3) 9.5 fL 9.5-12.9 NRBC/100 WBC (test code = 5559418434) 0.0 See_Comment [Automated [employer] ssage] The system which generated this result transmitted reference range: 0.0 - 10.0 /100 WBCs. The reference range was not used to interpret this result as normal/abnormal. NRBC x10^3 (test code = 0436520674) See_Comment [Automated [employer] ge] The system which generated this result transmitted reference range: 10*3/?L. The reference range was not used to interpret this result as normal/abnormal. GRAN MAT (NEUT) % (test code = 770-8) 62.6 % IMM GRAN % (test code = 6781665595) 0.40 % LYMPH % (test code = 736-9) 22.0 % MONO % (test code = 5905-5) 11.0 % EOS % (test code = 713-8) 3.6 % BASO % (test code = 706-2) 0.4 % GRAN MAT x10^3(ANC) (test code = 9589759204) 5.28 10*3/uL 1.88-7.09 IMM GRAN x10^3 (test code = 1568629996) 0.03 10*3/uL 0.00-0.06 LYMPH x10^3 (test code = 731-0) 1.85 10*3/uL 1.32-3.29 MONO x10^3 (test code = 742-7) 0.93 10*3/uL 0.33-0.92 H EOS x10^3 (test code = 711-2) 0.30 10*3/uL 0.03-0.39 BASO x10^3 (test code = 704-7) 0.03 10*3/uL 0.01-0.07 Lab Interpretation (test code = 44660-3) Abnormal [facility] GLUCOSE (AUTOMATED)2023-02-18 17:16:18* Test Item Value Reference Range Interpretation Comme nts POCT GLU (test code = 3212495157) 193 mg/dL 70-110 H Notified Provide r Lab Interpretation (test code = 83875-8) Abnormal [facility] GLUCOSE (AUTOMATED)2023-02-18 13:15:11* Test Item Value Reference Range Interpretation Comme nts POCT GLU (test code = 3084187886) 194 mg/dL 70-110 H Notified Provide r Lab Interpretation (test code = 05565-3) Abnormal [facility] GLUCOSE (AUTOMATED)2023-02-18 02:26:46* Test Item Value Reference Range Interpretation Comme nts POCT GLU (test code = 2095788671) 185 mg/dL 70-110 H Lab Interpretation (test cod e = 91316-3) Abnormal [facility] GLUCOSE (AUTOMATED)2023-02-17 21:59:48* Test Item Value Reference Range Interpretation Comme nts POCT GLU (test code = 6696481407) 169 mg/dL 70-110 H Lab Interpretation (test cod e = 35948-1) Abnormal [facility] GLUCOSE (AUTOMATED)2023-02-17 16:52:41* Test Item Value Reference Range Interpretation Comme nts POCT GLU (test code = 3545444200) 193 mg/dL 70-110 H Lab Interpretation (test cod e = 42049-1) Abnormal [facility] GLUCOSE (AUTOMATED)2023-02-17 12:46:14* Test Item Value Reference Range Interpretation Comme nts POCT GLU (test code = 0217091231) 184 mg/dL 70-110 H Lab Interpretation (test cod e = 35257-3) Abnormal [facility] GLUCOSE (AUTOMATED)2023-02-17 02:03:56* Test Item Value Reference Range Interpretation Comme nts POCT GLU (test code = 3883854676) 207 mg/dL 70-110 H Lab Interpretation (test cod e = 30028-0) [facility]-16 22:06:44* Test Item Value Reference Range Interpretation Comme nts POCT GLU (test code = 9699003803) 189 mg/dL 70-110 H Lab Interpretation (test cod e = 87277-3) [facility]-16 16:33:39* Test Item Value Reference Range Interpretation Comme nts POCT GLU (test code = 5305892669) 241 mg/dL 70-110 H Lab Interpretation (test cod e = 32972-2) Abnormal [facility] GLUCOSE (AUTOMATED)2023-02-16 14:06:06* Test Item Value Reference Range Interpretation Comme nts POCT GLU (test code = 3025286907) 262 mg/dL 70-110 H Lab Interpretation (test cod e = 79141-5) Abnormal [facility] GLUCOSE (AUTOMATED)2023-02-16 11:31:28* Test Item Value Reference Range Interpretation Comme nts POCT GLU (test code = 0070066364) 160 mg/dL 70-110 H Lab Interpretation (test cod e = 77119-5) Abnormal [facility] GLUCOSE (AUTOMATED)2023-02-16 05:17:04* Test Item Value Reference Range Interpretation Comme nts POCT GLU (test code = 8779815251) 174 mg/dL 70-110 H Lab Interpretation (test cod e = 71339-6) [facility]2023-02-16 01:30:24* Test Item Value Reference Range Interpretation Comme nts POCT GLU (test code = 2238105374) 207 mg/dL 70-110 H Lab Interpretation (test cod e = 24771-7) [facility]23-02-15 22:32:04* Test Item Value Reference Range Interpretation Comme nts POCT GLU (test code = 7605161611) 161 mg/dL 70-110 H Lab Interpretation (test cod e = 58167-4) Abnormal [facility] GLUCOSE (AUTOMATED)2023-02-15 16:57:38* Test Item Value Reference Range Interpretation Comme nts POCT GLU (test code = 4327067687) 176 mg/dL 70-110 H Lab Interpretation (test cod e = 80412-4) [facility]normal [facility] [id number] 14:17:57* Test Item Value Reference Range Interpretation Comme [facility] NT-proBNP (test code = 65620-2) 6130 pg/mL <=125 H LOW (test code = LOW) Positive: Heart Failure Likely Lab Interpretation (test code = 19546-9) [facility]2023-02-15 11:07:11* Test Item Value Reference Range Interpretation Comme [facility] POCT GLU (test code = 3996775480) 173 mg/dL 70-110 H Lab Interpretation (test cod e = 54772-8) Abnormal [facility] METABOLIC PANEL (NA, K, CL, CO2, GLUCOSE, BUN, CREATININE, CA)2023-02-15 09:58:17* Test Item Value Reference Range Interpretation Comme [facility] NA (test code = 8758947900) 136 mmol/L 135-145 K (test code = 1089403174) 3.9 mmol/L 3.5-5.0 CL (test code = 3989892746) 102 mmol/L 98-108 CO2 TOTAL (test code = 1949891468) 26 mmol/L 23-31 AGAP (test code = 2770750394) 8 2-16 BUN (test code = 5470485029) 6 mg/dL 7-23 L GLUCOSE (test code = 7435806286) 168 mg/dL 70-110 H CREATININE (test code = 4298385723) 0.66 mg/dL 0.50-1.04 CALCIUM (test code = 0609432778) 8.7 mg/dL 8.6-10.6 eGFR (test code = 3099304260) 86.8 mL/min/1.73m2 LOW (test code = LOW) Association of [...] or abnormalities in imaging tests). Lab Interpretation (test code = 31183-4) Abnormal [facility] WITH [id number] 09:32:15* Test Item Value Reference Range Interpretation Comme nts WBC (test code = 6690-2) 7.23 See_Comment [[employer]] The system which generated this result transmitted reference range: 4.30 - 11.10 10*3/?L. The reference range was not used to interpret this result as normal/abnormal. RBC (test code = 789-8) 3.97 See_Comment [[employer]] The system which generated this result transmitted reference range: 3.93 - 5.25 10*6/?L. The reference range was not used to interpret this result as normal/abnormal. HGB (test code = 718-7) 9.9 g/dL 11.6-15.0 L HCT (test code = 4544-3) 33.1 % 35.7-45.2 L MCV (test code = 787-2) 83.4 fL 80.6-95.5 MCH (test code = 785-6) 24.9 pg 25.9-32.8 L MCHC (test code = 786-4) 29.9 g/dL 31.6-35.1 L RDW-SD (test code = 32785-6) 76.7 fL 39.0-49.9 H RDW-CV (test code = 788-0) 25.9 % 12.0-15.5 H PLT (test code = 777-3) 280 See_Comment [Automated messa ge] The system which generated this result transmitted reference range: 166 - 358 10*3/?L. The reference range was not used to interpret this result as normal/abnormal. MPV (test code = 19397-1) 10.0 fL 9.5-12.9 NRBC/100 WBC (test code = 2809070881) 0.0 See_Comment [Automated me ssage] The system which generated this result transmitted reference range: 0.0 - 10.0 /100 WBCs. The reference range was not used to interpret this result as normal/abnormal. NRBC x10^3 (test code = 7211033410) See_Comment [Automated messa ge] The system which generated this result transmitted reference range: 10*3/?L. The reference range was not used to interpret this result as normal/abnormal. GRAN MAT (NEUT) % (test code = 770-8) 62.7 % IMM GRAN % (test code = 0305842815) 0.40 % LYMPH % (test code = 736-9) 20.6 % MONO % (test code = 5905-5) 11.6 % EOS % (test code = 713-8) 4.4 % BASO % (test code = 706-2) 0.3 % GRAN MAT x10^3(ANC) (test code = 6201042170) 4.53 10*3/uL 1.88-7.09 IMM GRAN x10^3 (test code = 9830936524) 0.03 10*3/uL 0.00-0.06 LYMPH x10^3 (test code = 731-0) 1.49 10*3/uL 1.32-3.29 MONO x10^3 (test code = 742-7) 0.84 10*3/uL 0.33-0.92 EOS x10^3 (test code = 711-2) 0.32 10*3/uL 0.03-0.39 BASO x10^3 (test code = 704-7) 0.01-0.07 Lab Interpretation (test code = 11724-2) Abnormal [facility] GLUCOSE (AUTOMATED)2023-02-15 05:16:18* Test Item Value Reference Range Interpretation Comme nts POCT GLU (test code = 5193083790) 135 mg/dL 70-110 H Lab Interpretation (test cod e = 78042-9) Abnormal [facility] GLUCOSE (AUTOMATED)2023-02-15 01:03:19* Test Item Value Reference Range Interpretation Comme nts POCT GLU (test code = 1140805484) 129 mg/dL 70-110 H Lab Interpretation (test cod e = 69391-3) Abnormal [facility] GLUCOSE (AUTOMATED)2023-02-14 21:53:23* Test Item Value Reference Range Interpretation Comme nts POCT GLU (test code = 9537330073) 138 mg/dL 70-110 H Lab Interpretation (test cod e = 09815-7) Abnormal [facility] GLUCOSE (AUTOMATED)2023-02-14 16:31:19* Test Item Value Reference Range Interpretation Comme nts POCT GLU (test code = 3642057127) 218 mg/dL 70-110 H Lab Interpretation (test cod e = 45481-0) [facility]-14 12:11:56* Test Item Value Reference Range Interpretation Comme nts POCT GLU (test code = 2060750034) 169 mg/dL 70-110 H Lab Interpretation (test cod e = 58456-9) [facility]2023-02-14 08:34:37* Test Item Value Reference Range Interpretation Comme nts POCT GLU (test code = 9457116069) 173 mg/dL 70-110 H Lab Interpretation (test cod e = 40985-2) [facility]2023-02-14 04:53:56* Test Item Value Reference Range Interpretation Comme nts POCT GLU (test code = 1105250348) 154 mg/dL 70-110 H Lab Interpretation (test cod e = 33186-2) Abnormal [facility] GLUCOSE (AUTOMATED)2023-02-14 02:12:50* Test Item Value Reference Range Interpretation Comme nts POCT GLU (test code = 6379556391) 156 mg/dL 70-110 H Lab Interpretation (test cod e = 92975-0) [facility]-13 22:06:19* Test Item Value Reference Range Interpretation Comme nts POCT GLU (test code = 0028799416) 200 mg/dL 70-110 H Notified Provide r Lab Interpretation (test code = 14109-4) [facility]2023-02-13 17:06:42* Test Item Value Reference Range Interpretation Comme nts POCT GLU (test code = 8972011217) 184 mg/dL 70-110 H Lab Interpretation (test cod e = 94713-5) Abnormal [facility] GLUCOSE (AUTOMATED)2023-02-13 12:42:11* Test Item Value Reference Range Interpretation Comme nts POCT GLU (test code = 3251027089) 188 mg/dL 70-110 H Lab Interpretation (test cod e = 14176-5) [facility]23-[facility]13 09:03:30* Test Item Value Reference Range Interpretation Comme nts POCT GLU (test code = 3510318240) 190 mg/dL 70-110 H Lab Interpretation (test cod e = 42079-2) [facility]23-[facility]-13 05:06:24* Test Item Value Reference Range Interpretation Comme nts POCT GLU (test code = 3672714176) 182 mg/dL 70-110 H Lab Interpretation (test cod e = 20482-9) [facility]2023-02-13 02:05:35* Test Item Value Reference Range Interpretation Comme nts POCT GLU (test code = 5914460900) 241 mg/dL 70-110 H Lab Interpretation (test cod e = 75143-4) [facility]2023-02-12 22:33:00* Test Item Value Reference Range Interpretation Comme nts POCT GLU (test code = 5260148540) 228 mg/dL 70-110 H Lab Interpretation (test cod e = 36433-8) Abnormal [facility] GLUCOSE (AUTOMATED)2023-02-12 16:54:55* Test Item Value Reference Range Interpretation Comme nts POCT GLU (test code = 9121638541) 192 mg/dL 70-110 H Lab Interpretation (test cod e = 03771-8) Abnormal [facility] GLUCOSE (AUTOMATED)2023-02-12 13:09:31* Test Item Value Reference Range Interpretation Comme nts POCT GLU (test code = 6329234314) 189 mg/dL 70-110 H Lab Interpretation (test cod e = 56289-0) Abnormal [facility] GLUCOSE (AUTOMATED)2023-02-12 09:07:10* Test Item Value Reference Range Interpretation Comme nts POCT GLU (test code = 2614061078) 197 mg/dL 70-110 H Lab Interpretation (test cod e = 29550-8) Abnormal [facility] GLUCOSE (AUTOMATED)2023-02-12 05:10:50* Test Item Value Reference Range Interpretation Comme nts POCT GLU (test code = 5579152285) 231 mg/dL 70-110 H Lab Interpretation (test cod e = 95164-3) Abnormal [facility] GLUCOSE (AUTOMATED)2023-02-12 02:16:10* Test Item Value Reference Range Interpretation Comme nts POCT GLU (test code = 9361133381) 233 mg/dL 70-110 H Lab Interpretation (test cod e = 21043-4) Abnormal [facility] GLUCOSE (AUTOMATED)2023-02-11 22:19:45* Test Item Value Reference Range Interpretation Comme nts POCT GLU (test code = 9482667766) 249 mg/dL 70-110 H Lab Interpretation (test cod e = 37082-7) Abnormal [facility] GLUCOSE (AUTOMATED)2023-02-11 17:16:23* Test Item Value Reference Range Interpretation Comme nts POCT GLU (test code = 8895523862) 290 mg/dL 70-110 H Lab Interpretation (test cod e = 85728-3) Abnormal [facility] GLUCOSE (AUTOMATED)2023-02-11 12:57:30* Test Item Value Reference Range Interpretation Comme nts POCT GLU (test code = 6980478777) 225 mg/dL 70-110 H Lab Interpretation (test cod e = 16602-7) Abnormal [facility] GLUCOSE (AUTOMATED)2023-02-11 08:56:59* Test Item Value Reference Range Interpretation Comme [facility] POCT GLU (test code = 3070298411) 177 mg/dL 70-110 H Lab Interpretation (test cod e = 17042-4) Abnormal [facility] GLUCOSE (AUTOMATED)2023-02-11 04:45:57* Test Item Value Reference Range Interpretation Comme [facility] POCT GLU (test code = 3717797005) 274 mg/dL 70-110 H Lab Interpretation (test cod e = 07365-5) Abnormal [facility] GLUCOSE (AUTOMATED)2023-02-11 02:06:48* Test Item Value Reference Range Interpretation Comme [facility] POCT GLU (test code = 5291379895) 322 mg/dL 70-110 H Lab Interpretation (test cod e = 44833-9) Abnormal [facility] A VIRUS ANTIBODY [id number] 01:41:36* Test Item Value Reference Range Interpretation Comme [facility] HAVM Semi-Quantitative (test code = 44048-6) 0.01 LOW (test code = LOW) HAVAb IgM Interpretative Information: Reactive greater than or equal to 1.2 Biotin has been reported to cause a negative bias, interpret results relative to patient's use of biotin. [facility] A AB, IGG AND [id number] 23:42:13 * Test Item Value Reference Range Interpretation Comme [facility] HAV Total (test code = 2593356955) Negative HAVT Semi-Quantitative (test code = 7706112646) 1.49 [facility] B SURFACE [id number] 23:42:13* Test Item Value Reference Range Interpretation Comme [facility] HBsAB (test code = 2189333345) Negative HBsAb Semi-Quantitative (test code = 0707655515) 0.10 mIU/mL LOW (test code = LOW) Interpretation: ?Hepatitis B Surface Antibody ? Negative - Patient is considered to be not immune to infection with HBV. ? ? Positive - Anti-HBs detected at greater than or equal to 12 mIU/mL. ?Patient is considered to be immune to infection with HBV. ? [id number]:42:13* Test Item Value Reference Range Interpretation Comme nts HCV Ab (test code = 59154-7) Negative HCV Semi-Quantitative (test code = 92970-6) 0.01 [facility] B CORE ANTIBODY [id number] 23:30:13* Test Item Value Reference Range Interpretation Comme nts HBCM Semi-Quantitative (test code = 10399-0) 0.02 LOW (test code = LOW) Biotin has been reported to cause a negative bias, interpret results relative to patient's use of biotin. [facility] GLUCOSE (AUTOMATED)2023-02-10 21:32:42* Test Item Value Reference Range Interpretation Comme nts POCT GLU (test code = 5891745888) 327 mg/dL 70-110 H Lab Interpretation (test cod e = 96570-3) Abnormal [facility] B SURFACE [id number] 19:57:53 * Test Item Value Reference Range Interpretation Comme nts HBsAg Semi-Quantitative (kevin t code = 5195-3) 0.07 Negative [facility] GLUCOSE (AUTOMATED)2023-02-10 17:21:48* Test Item Value Reference Range Interpretation Comme nts POCT GLU (test code = 6885160598) 308 mg/dL 70-110 H Lab Interpretation (test cod e = 08785-3) Abnormal [facility] GLUCOSE (AUTOMATED)2023-02-10 13:24:53* Test Item Value Reference Range Interpretation Comme nts POCT GLU (test code = 3202112245) 266 mg/dL 70-110 H Lab Interpretation (test cod e = 83578-3) Abnormal [facility] GLUCOSE (AUTOMATED)2023-02-10 08:48:41* Test Item Value Reference Range Interpretation Comme nts POCT GLU (test code = 2476832047) 270 mg/dL 70-110 H Lab Interpretation (test cod e = 07778-2) Abnormal [facility] GLUCOSE (AUTOMATED)2023-02-10 04:52:34* Test Item Value Reference Range Interpretation Comme nts POCT GLU (test code = 6847848935) 334 mg/dL 70-110 H Lab Interpretation (test cod e = 76931-2) Abnormal [facility] GLUCOSE (AUTOMATED)2023-02-10 01:13:46* Test Item Value Reference Range Interpretation Comme nts POCT GLU (test code = 4713849486) 372 mg/dL 70-110 H Lab Interpretation (test cod e = 34521-0) Abnormal [facility] GLUCOSE (AUTOMATED)2023-02-09 20:59:10* Test Item Value Reference Range Interpretation Comme nts POCT GLU (test code = 7797949728) 364 mg/dL 70-110 H Lab Interpretation (test cod e = 89777-3) Abnormal [facility] GLUCOSE (AUTOMATED)2023-02-09 16:50:31* Test Item Value Reference Range Interpretation Comme nts POCT GLU (test code = 6149013898) 356 mg/dL 70-110 H Lab Interpretation (test cod e = 36569-7) Abnormal [facility] GLUCOSE (AUTOMATED)2023-02-09 13:03:41* Test Item Value Reference Range Interpretation Comme nts POCT GLU (test code = 5825991697) 257 mg/dL 70-110 H Lab Interpretation (test cod e = 23375-0) Abnormal [facility] METABOLIC PANEL (NA, K, CL, CO2, GLUCOSE, BUN, CREATININE, CA)2023-02-09 11:02:51* Test Item Value Reference Range Interpretation Comme nts NA (test code = 8838672474) 135 mmol/L 135-145 K (test code = 0370231967) 3.1 mmol/L 3.5-5.0 L CL (test code = 3294490755) 89 mmol/L 98-108 L CO2 TOTAL (test code = 1105423647) 39 mmol/L 23-31 H AGAP (test code = 5851346035) 7 2-16 BUN (test code = 7447240125) 33 mg/dL 7-23 H GLUCOSE (test code = 4869661596) 290 mg/dL 70-110 H CREATININE (test code = 3657889099) 0.89 mg/dL 0.50-1.04 CALCIUM (test code = 0984462262) 8.6 mg/dL 8.6-10.6 eGFR (test code = 7488021345) 61.5 mL/min/1.73m2 LOW (test code = LOW) Association of [...] or abnormalities in imaging tests). Lab Interpretation (test code = 86003-0) Abnormal [facility] WITH [id number] 10:41:48* Test Item Value Reference Range Interpretation Comme nts WBC (test code = 6690-2) 10.89 See_Comment [Automated [employer]] The system which generated this result transmitted reference range: 4.30 - 11.10 10*3/?L. The reference range was not used to interpret this result as normal/abnormal. RBC (test code = 789-8) 3.81 See_Comment L [[employer]ated [employer]] The system which generated this result transmitted reference range: 3.93 - 5.25 10*6/?L. The reference range was not used to interpret this result as normal/abnormal. HGB (test code = 718-7) 9.3 g/dL 11.6-15.0 L HCT (test code = 4544-3) 31.3 % 35.7-45.2 L MCV (test code = 787-2) 82.2 fL 80.6-95.5 MCH (test code = 785-6) 24.4 pg 25.9-32.8 L MCHC (test code = 786-4) 29.7 g/dL 31.6-35.1 L RDW-SD (test code = 18972-9) 69.6 fL 39.0-49.9 H RDW-CV (test code = 788-0) 24.5 % 12.0-15.5 H PLT (test code = 777-3) 244 See_Comment [Automated messa ge] The system which generated this result transmitted reference range: 166 - 358 10*3/?L. The reference range was not used to interpret this result as normal/abnormal. MPV (test code = 73629-6) 9.9 fL 9.5-12.9 NRBC/100 WBC (test code = 9352708128) 0.3 See_Comment [Automated [employer] ssage] The system which generated this result transmitted reference range: 0.0 - 10.0 /100 WBCs. The reference range was not used to interpret this result as normal/abnormal. NRBC x10^3 (test code = 8772221854) 0.03 See_Comment [Automated [employer]] The system which generated this result transmitted reference range: 10*3/?L. The reference range was not used to interpret this result as normal/abnormal. GRAN MAT (NEUT) % (test code = 770-8) 75.8 % IMM GRAN % (test code = 8221854181) 0.60 % LYMPH % (test code = 736-9) 14.4 % MONO % (test code = 5905-5) 9.1 % EOS % (test code = 713-8) 0.0 % BASO % (test code = 706-2) 0.1 % GRAN MAT x10^3(ANC) (test code = 5026440925) 8.25 10*3/uL 1.88-7.09 H IMM GRAN x10^3 (test code = 8336836815) 0.07 10*3/uL 0.00-0.06 H LYMPH x10^3 (test code = 731-0) 1.57 10*3/uL 1.32-3.29 MONO x10^3 (test code = 742-7) 0.99 10*3/uL 0.33-0.92 H EOS x10^3 (test code = 711-2) 0.03-0.39 L BASO x10^3 (test code = 704-7) 0.01-0.07 Lab Interpretation (test code = 66313-8) Abnormal [facility] GLUCOSE (AUTOMATED)2023-02-09 09:47:04* Test Item Value Reference Range Interpretation Comme nts POCT GLU (test code = 8845819579) 307 mg/dL 70-110 H Lab Interpretation (test cod e = 04698-4) Abnormal [facility] GLUCOSE (AUTOMATED)2023-02-09 04:43:03* Test Item Value Reference Range Interpretation Comme nts POCT GLU (test code = 0912695605) 367 mg/dL 70-110 H Lab Interpretation (test cod e = 92037-2) Abnormal [facility] GLUCOSE (AUTOMATED)2023-02-09 01:18:56* Test Item Value Reference Range Interpretation Comme nts POCT GLU (test code = 0805556157) 411 mg/dL 70-110 H Lab Interpretation (test cod e = 14636-7) [facility] [id number] 23:01:40* Test Item Value Reference Range Interpretation Comme nts Blood Culture-Aerobic (test code = 23655-2) No organisms isolated No growth Previous preliminary verified result was Culture In Progress on 02/03/2023 at 2102 CDTPrevious preliminary verified result was No growth at 24 hours on 02/04/2023 at 1801 CDTPrevious preliminary verified result was No growth at 48 hours on 02/05/2023 at 1801 CDTPrevious preliminary verified result was No growth at 72 hours on 02/06/2023 at 1801 CDT Blood Culture-Anaerobic (test code = 36627-5) No organisms isolated No growth Previous preliminary verified result was Culture In Progress on 02/03/2023 at 2102 CDTPrevious preliminary verified result was No growth at 24 hours on 02/04/2023 at 1801 CDTPrevious preliminary verified result was No growth at 48 hours on 02/05/2023 at 1801 CDTPrevious preliminary verified result was No growth at 72 hours on 02/06/2023 at 1801 CDT Lab Interpretation (test code = 12591-5) Normal [facility] CULTURE [id number] 23:01:40* Test Item Value Reference Range Interpretation Comme nts Blood Culture-Aerobic (test code = 21940-7) No organisms isolated No growth Previous preliminary verified result was Culture In Progress on 02/03/2023 at 2102 CDTPrevious preliminary verified result was No growth at 24 hours on 02/04/2023 at 1801 CDTPrevious preliminary verified result was No growth at 48 hours on 02/05/2023 at 1801 CDTPrevious preliminary verified result was No growth at 72 hours on 02/06/2023 at 1801 CDT Blood Culture-Anaerobic (test code = 93463-9) No organisms isolated No growth Previous preliminary verified result was Culture In Progress on 02/03/2023 at 2102 CDTPrevious preliminary verified result was No growth at 24 hours on 02/04/2023 at 1801 CDTPrevious preliminary verified result was No growth at 48 hours on 02/05/2023 at 1801 CDTPrevious preliminary verified result was No growth at 72 hours on 02/06/2023 at 1801 CDT Lab Interpretation (test code = 43922-8) Normal [facility] GLUCOSE (AUTOMATED)2023-02-08 21:22:33* Test Item Value Reference Range Interpretation Comme nts POCT GLU (test code = 0251316070) 399 mg/dL 70-110 H Lab Interpretation (test cod e = 86610-8) Abnormal [facility] GLUCOSE (AUTOMATED)2023-02-08 16:34:35* Test Item Value Reference Range Interpretation Comme nts POCT GLU (test code = 7752430265) 422 mg/dL 70-110 H Lab Interpretation (test cod e = 65943-0) Abnormal [facility] GLUCOSE (AUTOMATED)2023-02-08 12:36:31* Test Item Value Reference Range Interpretation Comme nts POCT GLU (test code = 2112436634) 330 mg/dL 70-110 H Lab Interpretation (test cod e = 95245-4) Abnormal [facility] METABOLIC PANEL (NA, K, CL, CO2, GLUCOSE, BUN, CREATININE, CA)2023-02-08 11:16:59* Test Item Value Reference Range Interpretation Comme nts NA (test code = 7238630076) 135 mmol/L 135-145 K (test code = 1658154851) 3.5 mmol/L 3.5-5.0 CL (test code = 6274181700) 94 mmol/L 98-108 L CO2 TOTAL (test code = 2074806915) 28 mmol/L 23-31 AGAP (test code = 7178273092) 13 2-16 BUN (test code = 6509181261) 33 mg/dL 7-23 H GLUCOSE (test code = 0760187227) 325 mg/dL 70-110 H CREATININE (test code = 8563790058) 1.00 mg/dL 0.50-1.04 CALCIUM (test code = 4634506432) 8.8 mg/dL 8.6-10.6 eGFR (test code = 2017084024) 53.8 mL/min/1.73m2 LOW (test code = LOW) Association of [...] or abnormalities in imaging tests). Lab Interpretation (test code = 71824-1) [facility] 11:08:02* Test Item Value Reference Range Interpretation Comme [facility] POCT GLU (test code = 7246493031) 337 mg/dL 70-110 H Lab Interpretation (test cod e = 85042-9) Abnormal [facility] WITH [id number] 10:54:55* Test Item Value Reference Range Interpretation Comme [facility] WBC (test code = 6690-2) 15.95 See_Comment H [Automated message] The system which generated this result transmitted reference range: 4.30 - 11.10 10*3/?L. The reference range was not used to interpret this result as normal/abnormal. RBC (test code = 789-8) 3.99 See_Comment [Automated message] The system which generated this result transmitted reference range: 3.93 - 5.25 10*6/?L. The reference range was not used to interpret this result as normal/abnormal. HGB (test code = 718-7) 9.7 g/dL 11.6-15.0 L HCT (test code = 4544-3) 32.5 % 35.7-45.2 L MCV (test code = 787-2) 81.5 fL 80.6-95.5 MCH (test code = 785-6) 24.3 pg 25.9-32.8 L MCHC (test code = 786-4) 29.8 g/dL 31.6-35.1 L RDW-SD (test code = 47168-9) 67.8 fL 39.0-49.9 H RDW-CV (test code = 788-0) 24.8 % 12.0-15.5 H PLT (test code = 777-3) 262 See_Comment [Automated message] The system which generated this result transmitted reference range: 166 - 358 10*3/?L. The reference range was not used to interpret this result as normal/abnormal. MPV (test code = 06105-7) 10.3 fL 9.5-12.9 NRBC/100 WBC (test code = 1554716374) 0.3 See_Comment [Automated message] The system which generated this result transmitted reference range: 0.0 - 10.0 /100 WBCs. The reference range was not used to interpret this result as normal/abnormal. NRBC x10^3 (test code = 0056547183) 0.04 See_Comment [Automated message] The system which generated this result transmitted reference range: 10*3/?L. The reference range was not used to interpret this result as normal/abnormal. GRAN MAT (NEUT) % (test code = 770-8) 92.4 % IMM GRAN % (test code = 6304803557) 0.80 % LYMPH % (test code = 736-9) 3.4 % MONO % (test code = 5905-5) 3.2 % EOS % (test code = 713-8) 0.1 % BASO % (test code = 706-2) 0.1 % GRAN MAT x10^3(ANC) (test code = 8521498502) 14.76 10*3/uL 1.88-7.09 H IMM GRAN x10^3 (test code = 3461045259) 0.12 10*3/uL 0.00-0.06 H LYMPH x10^3 (test code = 731-0) 0.54 10*3/uL 1.32-3.29 L MONO x10^3 (test code = 742-7) 0.51 10*3/uL 0.33-0.92 EOS x10^3 (test code = 711-2) 0.03-0.39 L BASO x10^3 (test code = 704-7) 0.01-0.07 Lab Interpretation (test code = 02227-7) Abnormal [facility] GLUCOSE (AUTOMATED)2023-02-08 05:44:57* Test Item Value Reference Range Interpretation Comme [facility] POCT GLU (test code = 0938005491) 337 mg/dL 70-110 H Lab Interpretation (test cod e = 03037-6) Abnormal [facility] GLUCOSE (AUTOMATED)2023-02-08 01:02:53* Test Item Value Reference Range Interpretation Comme [facility] POCT GLU (test code = 2596409908) 307 mg/dL 70-110 H Lab Interpretation (test cod e = 49696-6) [facility] 21:04:59* Test Item Value Reference Range Interpretation Comme [facility] POCT GLU (test code = 3786938190) 301 mg/dL 70-110 H Lab Interpretation (test cod e = 78237-5) [facility] 18:17:39* Test Item Value Reference Range Interpretation Comme [facility] Height (test code = 1343479281) 66 in Weight (test code = 0440252892) 205 lbs Systolic BP (test code = 7194320917) 120 mmHg Diastolic BP (test code = 5158111848) 73 mmHg Heart Rate (test code = 0930290948) 75 bpm LVOT stroke volume (test code = 3139595844) 48.20 cm3 EF(Teich) (test code = 2576113469) 52.90 % LVIDD (test code = 8453048641) 4.90 cm LVIDS (test code = 8132238643) 3.60 cm Left Ventricular End Systolic Volume by Teichholz Method (test code = 0491272) 53.7 mL Left Ventricular End Diastolic Volume by Teichholz Method (test code = 5120401) 113.9 mL IVS (test code = 2373695533) 1.07 cm LVPWD (test code = 5698487925) 1.11 cm LVOT diameter (test code = 8790801661) 2.03 cm LVOT area (test code = 6821837321) 3.20 cm2 FS (test code = 4864637983) 27 % MV Peak E Rohini (test code = 3300885590) 123.1 cm/s MV Peak A Rohini (test code = 8165006112) 53.6 cm/s E/A ratio (test code = 3070603519) 2.30 ratio E wave decelartion time (test code = 7150870296) 0.24 s MV E/e' septal (test code = 9504275406) 9.5 cm/s LA volume (BP) (test code = 3696165315) 87.3 mL LVOT peak rohini (test code = 4578011911) 68.9 cm/s LVOT mn grad (test code = 5729942701) 0.9 mmHg Left Ventricular Cardiac Output (test code = 8232750) 3.5 L/min LA size (test code = 2260703025) 4.6 cm LAV(MOD-sp2) (test code = 5156914162) 88.20 mL LAV(MOD-sp4) (test code = 0761869494) 76.50 mL Tapse (test code = 6710634758) 1.47 cm AV LVOT peak gradient (test code = 2300113851) 1.90 mmHg LVOT peak VTI (test code = 3190070677) 14.9 cm Aortic HR (test code = 9307594194) 72.60 BPM LV V1 mean (test code = 6233920591) 44.70 cm/s MV Prop V (test code = 4025340078) 39.70 cm/s TR Peak Rohini (test code = 4973960979) 292.5 cm/s Triscuspid Valve Regurgitation Peak Gradient (test code = 2313583484) 34.3 mmHg Ao root diam (test code = 6177827752) 3.40 cm Aortic root (test code = 2382695615) 3.4 cm Ao root annulus (test code = 1856052352) 3.4 cm PW (test code = 3853250824) 1.11 cm 0.6-1.1 EF - 2D (test code = 53430081) 52.90 % Interventricular Septum Diastolic Thickness by 2D (test code = 0315085) 1.07 cm LA Volume Index (BP) (test code = 9590891318) 43.2 mL/m2 BSA (test code = 3790432441) 2.02 m2 Aortic valve mean velocity (test code = 3673213973) 97.0 cm/s Ao peak rohini (test code = 9811639336) 162.1 cm/s Ao VTI (test code = 4127457920) 25.6 cm AV area by cont VTI (test code = 8376008405) 1.9 cm2 AV area peak rohini (test code = 9698205725) 1.4 cm2 Ao max PG (test code = 1201563682) 10.50 mm[Hg] AV peak gradient (test code = 0371508589) 10.5 mmHg AV valve area (test code = 1397106536) 1.88 cm2 AV mean gradient (test code = 0271867865) 4.6 mmHg Radiology Study observation (narrative) (test code = 64217-0) LOW (test code = LOW) ?Left?Ventricle: Left [...] lateral and apex.All other segments are normal. [facility] [id number] 17:44:53* Test Item Value Reference Range Interpretation Comme nts TROPONIN I (test code = 6495820119) 0.226 ng/mL <=0.034 H LOW (test code = LOW) Reference (Normal) [...] patient's use of biotin. Lab Interpretation (test code = 34478-9) Abnormal [facility] METABOLIC PANEL (NA, K, CL, CO2, GLUCOSE, BUN, CREATININE, CA)2023-02-07 17:34:54* Test Item Value Reference Range Interpretation Comme nts NA (test code = 3659735222) 140 mmol/L 135-145 K (test code = 4049981417) 3.9 mmol/L 3.5-5.0 CL (test code = 6460605414) 98 mmol/L 98-108 CO2 TOTAL (test code = 2191506133) 33 mmol/L 23-31 H AGAP (test code = 7722051288) 9 2-16 BUN (test code = 0626592247) 30 mg/dL 7-23 H GLUCOSE (test code = 3396784574) 285 mg/dL 70-110 H CREATININE (test code = 0528012369) 1.08 mg/dL 0.50-1.04 H CALCIUM (test code = 1202880529) 8.8 mg/dL 8.6-10.6 eGFR (test code = 3307597394) 49.2 mL/min/1.73m2 LOW (test code = LOW) Association of [...] or abnormalities in imaging tests). Lab Interpretation (test code = 48093-7) [facility]* Test Item Value Reference Range Interpretation Comme nts MAGNESIUM (test code = 3871304190) 1.9 mg/dL 1.7-2.4 Lab Interpretation (test cod e = 53603-4) Normal [facility] WITH [id number] 17:26:54* Test Item Value Reference Range Interpretation Comme nts WBC (test code = 6690-2) 11.17 See_Comment H [Automated message] The system which generated this result transmitted reference range: 4.30 - 11.10 10*3/?L. The reference range was not used to interpret this result as normal/abnormal. RBC (test code = 789-8) 3.91 See_Comment L [Automated message] The system which generated this result transmitted reference range: 3.93 - 5.25 10*6/?L. The reference range was not used to interpret this result as normal/abnormal. HGB (test code = 718-7) 9.5 g/dL 11.6-15.0 L HCT (test code = 4544-3) 31.9 % 35.7-45.2 L MCV (test code = 787-2) 81.6 fL 80.6-95.5 MCH (test code = 785-6) 24.3 pg 25.9-32.8 L MCHC (test code = 786-4) 29.8 g/dL 31.6-35.1 L RDW-SD (test code = 46686-4) 65.7 fL 39.0-49.9 H RDW-CV (test code = 788-0) 24.3 % 12.0-15.5 H PLT (test code = 777-3) 252 See_Comment [Automated message] The system which generated this result transmitted reference range: 166 - 358 10*3/?L. The reference range was not used to interpret this result as normal/abnormal. MPV (test code = 60398-5) 10.0 fL 9.5-12.9 NRBC/100 WBC (test code = 4705561291) 0.2 See_Comment [Automated message] The system which generated this result transmitted reference range: 0.0 - 10.0 /100 WBCs. The reference range was not used to interpret this result as normal/abnormal. NRBC x10^3 (test code = 7925355434) 0.02 See_Comment [Automated message] The system which generated this result transmitted reference range: 10*3/?L. The reference range was not used to interpret this result as normal/abnormal. GRAN MAT (NEUT) % (test code = 770-8) 91.7 % IMM GRAN % (test code = 0213922661) 0.50 % LYMPH % (test code = 736-9) 4.3 % MONO % (test code = 5905-5) 3.4 % EOS % (test code = 713-8) 0.0 % BASO % (test code = 706-2) 0.1 % GRAN MAT x10^3(ANC) (test code = 8952772837) 10.24 10*3/uL 1.88-7.09 H IMM GRAN x10^3 (test code = 3623101966) 0.06 10*3/uL 0.00-0.06 LYMPH x10^3 (test code = 731-0) 0.48 10*3/uL 1.32-3.29 L MONO x10^3 (test code = 742-7) 0.38 10*3/uL 0.33-0.92 EOS x10^3 (test code = 711-2) 0.03-0.39 L BASO x10^3 (test code = 704-7) 0.01-0.07 Lab Interpretation (test code = 51161-4) Abnormal [facility] GLUCOSE (AUTOMATED)2023-02-07 16:44:05* Test Item Value Reference Range Interpretation Comme nts POCT GLU (test code = 5578464445) 281 mg/dL 70-110 H Lab Interpretation (test cod e = 44886-9) Abnormal [facility] GLUCOSE (AUTOMATED)2023-02-07 12:28:58* Test Item Value Reference Range Interpretation Comme nts POCT GLU (test code = 3063534305) 266 mg/dL 70-110 H Lab Interpretation (test cod e = 90126-9) [facility] [id number] 11:55:36* Test Item Value Reference Range Interpretation Comme nts TROPONIN I (test code = 2387304146) 0.295 ng/mL <=0.034 H LOW (test code = LOW) Reference (Normal) [...] patient's use of biotin. Lab Interpretation (test code = 41867-4) [facility]23-[facility]-07 09:39:18* Test Item Value Reference Range Interpretation Comme [facility] POCT GLU (test code = 9583556761) 257 mg/dL 70-110 H Lab Interpretation (test cod e = 55248-2) [facility] [id number] 05:34:20* Test Item Value Reference Range Interpretation Comme [facility] TROPONIN I (test code = 0197795685) 0.437 ng/mL <=0.034 H LOW (test code = LOW) Reference (Normal) [...] patient's use of biotin. Lab Interpretation (test code = 37567-0) [facility] (NA, K, CL, CO2, GLUCOSE, BUN, CREATININE, CA)2023-02-07 05:23:38* Test Item Value Reference Range Interpretation Comme nts NA (test code = 8270503771) 139 mmol/L 135-145 K (test code = 3939511961) 4.2 mmol/L 3.5-5.0 CL (test code = 9214516166) 98 mmol/L 98-108 CO2 TOTAL (test code = 2278679382) 31 mmol/L 23-31 AGAP (test code = 6030870412) 10 2-16 BUN (test code = 3504921560) 23 mg/dL 7-23 GLUCOSE (test code = 4749012446) 246 mg/dL 70-110 H CREATININE (test code = 2851062295) 0.85 mg/dL 0.50-1.04 CALCIUM (test code = 7387922447) 8.7 mg/dL 8.6-10.6 eGFR (test code = 0500636725) 64.9 mL/min/1.73m2 LOW (test code = LOW) Association of [...] or abnormalities in imaging tests). Lab Interpretation (test code = 57573-7) [facility] 05:23:38* Test Item Value Reference Range Interpretation Comme nts MAGNESIUM (test code = 3814996092) 1.3 mg/dL 1.7-2.4 L Lab Interpretation (test cod e = 62960-6) [facility]normal [facility] 05:23:38* Test Item Value Reference Range Interpretation Comme nts PHOSPHORUS (test code = 8057110776) 3.5 mg/dL 2.5-5.0 Lab Interpretation (test cod e = 74400-8) Normal [facility] [id number] 05:04:53* Test Item Value Reference Range Interpretation Comme nts WBC (test code = 6690-2) 9.26 See_Comment [Automated message] The system which generated this result transmitted reference range: 4.30 - 11.10 10*3/?L. The reference range was not used to interpret this result as normal/abnormal. RBC (test code = 789-8) 3.78 See_Comment L [Automated message] The system which generated this result transmitted reference range: 3.93 - 5.25 10*6/?L. The reference range was not used to interpret this result as normal/abnormal. HGB (test code = 718-7) 9.3 g/dL 11.6-15.0 L HCT (test code = 4544-3) 31.0 % 35.7-45.2 L MCH (test code = 785-6) 24.6 pg 25.9-32.8 L MCV (test code = 787-2) 82.0 fL 80.6-95.5 MCHC (test code = 786-4) 30.0 g/dL 31.6-35.1 L PLT (test code = 777-3) 245 See_Comment [Automated message] The system which generated this result transmitted reference range: 166 - 358 10*3/?L. The reference range was not used to interpret this result as normal/abnormal. MPV (test code = 48003-1) 9.7 fL 9.5-12.9 RDW-CV (test code = 788-0) 23.7 % 12.0-15.5 H RDW-SD (test code = 09027-8) 63.2 fL 39.0-49.9 H NRBC x10^3 (test code = 7855196172) 0.05 See_Comment [Automated messa ge] The system which generated this result transmitted reference range: 10*3/?L. The reference range was not used to interpret this result as normal/abnormal. NRBC/100 WBC (test code = 5837647274) 0.5 See_Comment [Automated messa ge] The system which generated this result transmitted reference range: 0.0 - 10.0 /100 WBCs. The reference range was not used to interpret this result as normal/abnormal. IPF % (test code = 7016829093) Lab Interpretation (test code = 14744-9) Abnormal [facility] GLUCOSE (AUTOMATED)2023-02-07 04:56:31* Test Item Value Reference Range Interpretation Comme nts POCT GLU (test code = 0379448025) 225 mg/dL 70-110 H Lab Interpretation (test cod e = 64992-6) Abnormal [facility] GLUCOSE (AUTOMATED)2023-02-07 00:52:59* Test Item Value Reference Range Interpretation Comme nts POCT GLU (test code = 9152039268) 267 mg/dL 70-110 H Lab Interpretation (test cod e = 26776-4) [id number]:45:26* Test Item Value Reference Range Interpretation Comme nts TROPONIN I (test code = 6175412044) 0.379 ng/mL <=0.034 H LOW (test code = LOW) Reference (Normal) [...] patient's use of biotin. Lab Interpretation (test code = 34832-7) Abnormal [facility] GLUCOSE (AUTOMATED)2023-02-06 21:24:59* Test Item Value Reference Range Interpretation Comme nts POCT GLU (test code = 4887021663) 258 mg/dL 70-110 H Lab Interpretation (test cod e = 41312-1) Abnormal [facility] GLUCOSE (AUTOMATED)2023-02-06 17:38:25* Test Item Value Reference Range Interpretation Comme nts POCT GLU (test code = 6851914183) 249 mg/dL 70-110 H Lab Interpretation (test cod e = 75479-0) [facility] MAO-[id number] 14:55:40* Test Item Value Reference Range Interpretation Comme nts NT-proBNP (test code = 77103-9) 37345 pg/mL <=125 H LOW (test code = LOW) Positive: Heart Failure Likely Lab Interpretation (test code = 64843-6) [facility] [id number] 14:55:40* Test Item Value Reference Range Interpretation Comme nts NT-proBNP (test code = 53703-1) 95816 pg/mL <=125 H LOW (test code = LOW) Positive: Heart Failure Likely Lab Interpretation (test code = 47909-9) Abnormal [facility] GLUCOSE (AUTOMATED)2023-02-06 13:11:26* Test Item Value Reference Range Interpretation Comme nts POCT GLU (test code = 4165984252) 244 mg/dL 70-110 H Lab Interpretation (test cod e = 26827-1) Abnormal [facility] GLUCOSE (AUTOMATED)2023-02-06 13:11:26* Test Item Value Reference Range Interpretation Comme nts POCT GLU (test code = 6158436254) 244 mg/dL 70-110 H Lab Interpretation (test cod e = 02001-6) [facility] + Lactic [id number] 06:31:17* Test Item Value Reference Range Interpretation Comme nts PH (test code = 2) 7.38 7.35-7.45 PCO2 (test code = 3259360318) 43 See_Comment [Automated messa ge] The system which generated this result transmitted reference range: 35 - 45 mmHg. The reference range was not used to interpret this result as normal/abnormal. PO2 (test code = 4672959220) 50 See_Comment L [Automated messa ge] The system which generated this result transmitted reference range: 80 - 100 mmHg. The reference range was not used to interpret this result as normal/abnormal. HCO3 (test code = 1872808247) 25 See_Comment [Automated messa ge] The system which generated this result transmitted reference range: 22 - 26 mEq/L. The reference range was not used to interpret this result as normal/abnormal. BE (test code = 8659513435) -0.7 See_Comment [Automated messa ge] The system which generated this result transmitted reference range: -3.0 - 3.0 mEq/L. The reference range was not used to interpret this result as normal/abnormal. THB (test code = 4131720588) 10.7 g/dL 12.0-16.0 L %O2HB (test code = 5502463006) 84.8 % 94.0-99.0 L %COHB ART (test code = 9283817662) 0.4 % 0.0-1.5 %METHB ART (test code = 5030244074) 0.5 % 0.4-1.5 VOL%O2 ART (test code = 0306965933) 12.8 % 15.0-23.0 L NA (test code = 0495272406) 140 mmol/L 135-145 K+ (test code = 9753293047) 4.8 mmol/L 3.5-5.0 AC CA IONZ (test code = 0601991052) 5.00 mg/dL 4.50-5.30 GLUCOSE (test code = 2179881399) 175 mg/dL 70-110 H LACTIC ACID (test code = 2379990720) 1.87 mmol/L 0.50-2.20 Lab Interpretation (test code = 92284-3) [facility] + Lactic [id number] 06:31:17* Test Item Value Reference Range Interpretation Comme nts PH (test code = 2) 7.38 7.35-7.45 PCO2 (test code = 4089143835) 43 See_Comment [Automated messa ge] The system which generated this result transmitted reference range: 35 - 45 mmHg. The reference range was not used to interpret this result as normal/abnormal. PO2 (test code = 8934421574) 50 See_Comment L [Automated messa ge] The system which generated this result transmitted reference range: 80 - 100 mmHg. The reference range was not used to interpret this result as normal/abnormal. HCO3 (test code = 3597199054) 25 See_Comment [Automated messa ge] The system which generated this result transmitted reference range: 22 - 26 mEq/L. The reference range was not used to interpret this result as normal/abnormal. BE (test code = 7774152940) -0.7 See_Comment [Automated messa ge] The system which generated this result transmitted reference range: -3.0 - 3.0 mEq/L. The reference range was not used to interpret this result as normal/abnormal. THB (test code = 9855155802) 10.7 g/dL 12.0-16.0 L %O2HB (test code = 1314931110) 84.8 % 94.0-99.0 L %COHB ART (test code = 1468737165) 0.4 % 0.0-1.5 %METHB ART (test code = 4005539323) 0.5 % 0.4-1.5 VOL%O2 ART (test code = 0305713249) 12.8 % 15.0-23.0 L NA (test code = 7484339087) 140 mmol/L 135-145 K+ (test code = 0473407973) 4.8 mmol/L 3.5-5.0 AC CA IONZ (test code = 5033983369) 5.00 mg/dL 4.50-5.30 GLUCOSE (test code = 4264777997) 175 mg/dL 70-110 H LACTIC ACID (test code = 8858575197) 1.87 mmol/L 0.50-2.20 Lab Interpretation (test code = 24658-8) Abnormal [facility] GLUCOSE (AUTOMATED)2023-02-06 05:35:42* Test Item Value Reference Range Interpretation Comme nts POCT GLU (test code = 6616346572) 176 mg/dL 70-110 H Lab Interpretation (test cod e = 48107-9) Abnormal [facility] GLUCOSE (AUTOMATED)2023-02-06 02:02:51* Test Item Value Reference Range Interpretation Comme nts POCT GLU (test code = 2723797128) 181 mg/dL 70-110 H Lab Interpretation (test cod e = 17389-1) [facility] 22:51:35* Test Item Value Reference Range Interpretation Comme nts POCT GLU (test code = 4393752212) 167 mg/dL 70-110 H Lab Interpretation (test cod e = 89329-2) [facility] 17:17:43* Test Item Value Reference Range Interpretation Comme nts POCT GLU (test code = 8764819645) 171 mg/dL 70-110 H Lab Interpretation (test cod e = 19912-9) [facility] 13:33:07* Test Item Value Reference Range Interpretation Comme nts POCT GLU (test code = 7705398273) 207 mg/dL 70-110 H Lab Interpretation (test cod e = 20048-6) Abnormal [facility] GLUCOSE (AUTOMATED)2023-02-05 09:34:22* Test Item Value Reference Range Interpretation Comme nts POCT GLU (test code = 0222013847) 159 mg/dL 70-110 H Lab Interpretation (test cod e = 88653-3) Abnormal [facility] GLUCOSE (AUTOMATED)2023-02-05 04:19:01* Test Item Value Reference Range Interpretation Comme nts POCT GLU (test code = 9707056931) 219 mg/dL 70-110 H Lab Interpretation (test cod e = 89579-3) Abnormal [facility] GLUCOSE (AUTOMATED)2023-02-05 02:04:20* Test Item Value Reference Range Interpretation Comme nts POCT GLU (test code = 9842753663) 243 mg/dL 70-110 H Lab Interpretation (test cod e = 90423-6) Abnormal [facility] GLUCOSE (AUTOMATED)2023-02-04 21:32:12* Test Item Value Reference Range Interpretation Comme nts POCT GLU (test code = 1066745560) 192 mg/dL 70-110 H Lab Interpretation (test cod e = 72001-1) Abnormal [facility] GLUCOSE (AUTOMATED)2023-02-04 16:41:55* Test Item Value Reference Range Interpretation Comme nts POCT GLU (test code = 6090343125) 186 mg/dL 70-110 H Lab Interpretation (test cod e = 60045-2) [facility] 13:02:49* Test Item Value Reference Range Interpretation Comme nts POCT GLU (test code = 1620203109) 120 mg/dL 70-110 H Lab Interpretation (test cod e = 52813-5) Abnormal [facility] ABG + LACTIC [id number] 12:48:14* Test Item Value Reference Range Interpretation Comme nts PH (test code = 2) 7.39 7.35-7.45 PCO2 (test code = 7415606816) 38 See_Comment [Automated messa ge] The system which generated this result transmitted reference range: 35 - 45 mmHg. The reference range was not used to interpret this result as normal/abnormal. PO2 (test code = 0106044566) 141 See_Comment H [Automated messa ge] The system which generated this result transmitted reference range: 80 - 100 mmHg. The reference range was not used to interpret this result as normal/abnormal. HCO3 (test code = 9279430075) 22 See_Comment [Automated messa ge] The system which generated this result transmitted reference range: 22 - 26 mEq/L. The reference range was not used to interpret this result as normal/abnormal. BE (test code = 2473912623) -2.2 See_Comment [Automated messa ge] The system which generated this result transmitted reference range: -3.0 - 3.0 mEq/L. The reference range was not used to interpret this result as normal/abnormal. LACTIC ACID (test code = 1209243366) 1.35 mmol/L 0.50-2.20 COOXERR Lab Interpretation (test code = 29523-8) Abnormal [facility] ABG + LACTIC [id number] 12:48:14* Test Item Value Reference Range Interpretation Comme nts PH (test code = 2) 7.39 7.35-7.45 PCO2 (test code = 7993002361) 38 See_Comment [Automated messa ge] The system which generated this result transmitted reference range: 35 - 45 mmHg. The reference range was not used to interpret this result as normal/abnormal. PO2 (test code = 5665741986) 141 See_Comment H [Automated messa ge] The system which generated this result transmitted reference range: 80 - 100 mmHg. The reference range was not used to interpret this result as normal/abnormal. HCO3 (test code = 3087458548) 22 See_Comment [Automated messa ge] The system which generated this result transmitted reference range: 22 - 26 mEq/L. The reference range was not used to interpret this result as normal/abnormal. BE (test code = 7842064768) -2.2 See_Comment [Automated messa ge] The system which generated this result transmitted reference range: -3.0 - 3.0 mEq/L. The reference range was not used to interpret this result as normal/abnormal. LACTIC ACID (test code = 5030060976) 1.35 mmol/L 0.50-2.20 COOXERR Lab Interpretation (test code = 75446-3) [facility] / [id number] 12:12:14* Test Item Value Reference Range Interpretation Comme nts PROTIME PATIENT (test code = 5964-2) 18.7 See_Comment H [Automated messa ge] The system which generated this result transmitted reference range: 10.1 - 12.6 Seconds. The reference range was not used to interpret this result as normal/abnormal. INR (test code = 6301-6) 1.6 Normal INR <1.1; Warfarin Therapeutic range 2.0 to 3.0 or 2.5 to 3.5, depending upon the indications. Lab Interpretation (test code = 33806-8) [facility] 10:20:25* Test Item Value Reference Range Interpretation Comme nts PHOSPHORUS (test code = 0681901155) 4.9 mg/dL 2.5-5.0 Lab Interpretation (test cod e = 72940-4) [facility] (NA, K, CL, CO2, GLUCOSE, BUN, CREATININE, CA)2023-02-04 10:20:25* Test Item Value Reference Range Interpretation Comme nts NA (test code = 6724892604) 136 mmol/L 135-145 K (test code = 4133811430) 4.9 mmol/L 3.5-5.0 CL (test code = 0245459824) 104 mmol/L 98-108 CO2 TOTAL (test code = 3500820465) 22 mmol/L 23-31 L AGAP (test code = 9820899607) 10 2-16 BUN (test code = 1401033248) 44 mg/dL 7-23 H GLUCOSE (test code = 0476127097) 101 mg/dL 70-110 CREATININE (test code = 5897105018) 1.41 mg/dL 0.50-1.04 H CALCIUM (test code = 4193073760) 8.2 mg/dL 8.6-10.6 L eGFR (test code = 3670147688) 36.2 mL/min/1.73m2 LOW (test code = LOW) Association of [...] or abnormalities in imaging tests). Lab Interpretation (test code = 60928-4) [facility]* Test Item Value Reference Range Interpretation Comme nts MAGNESIUM (test code = 1515007244) 1.9 mg/dL 1.7-2.4 Lab Interpretation (test cod e = 04674-7) [facility] 10:20:25* Test Item Value Reference Range Interpretation Comme nts PHOSPHORUS (test code = 9482530415) 4.9 mg/dL 2.5-5.0 Lab Interpretation (test cod e = 55905-7) [facility] WITH [id number] 09:57:00* Test Item Value Reference Range Interpretation Comme nts WBC (test code = 6690-2) 12.22 See_Comment H [Automated messa ge] The system which generated this result transmitted reference range: 4.30 - 11.10 10*3/?L. The reference range was not used to interpret this result as normal/abnormal. RBC (test code = 789-8) 3.17 See_Comment L [Automated messa ge] The system which generated this result transmitted reference range: 3.93 - 5.25 10*6/?L. The reference range was not used to interpret this result as normal/abnormal. HGB (test code = 718-7) 7.6 g/dL 11.6-15.0 L HCT (test code = 4544-3) 25.5 % 35.7-45.2 L MCV (test code = 787-2) 80.4 fL 80.6-95.5 L MCH (test code = 785-6) 24.0 pg 25.9-32.8 L MCHC (test code = 786-4) 29.8 g/dL 31.6-35.1 L RDW-SD (test code = 19446-0) 57.3 fL 39.0-49.9 H RDW-CV (test code = 788-0) 19.6 % 12.0-15.5 H PLT (test code = 777-3) 257 See_Comment [Automated messa ge] The system which generated this result transmitted reference range: 166 - 358 10*3/?L. The reference range was not used to interpret this result as normal/abnormal. MPV (test code = 55398-6) 10.4 fL 9.5-12.9 NRBC/100 WBC (test code = 7878994753) 0.7 See_Comment [Automated me ssage] The system which generated this result transmitted reference range: 0.0 - 10.0 /100 WBCs. The reference range was not used to interpret this result as normal/abnormal. NRBC x10^3 (test code = 6173054562) 0.09 See_Comment [Automated messa ge] The system which generated this result transmitted reference range: 10*3/?L. The reference range was not used to interpret this result as normal/abnormal. GRAN MAT (NEUT) % (test code = 770-8) 80.6 % IMM GRAN % (test code = 9245221266) 0.90 % LYMPH % (test code = 736-9) 10.2 % MONO % (test code = 5905-5) 7.6 % EOS % (test code = 713-8) 0.3 % BASO % (test code = 706-2) 0.4 % GRAN MAT x10^3(ANC) (test code = 0596819556) 9.84 10*3/uL 1.88-7.09 H IMM GRAN x10^3 (test code = 1524319967) 0.11 10*3/uL 0.00-0.06 H LYMPH x10^3 (test code = 731-0) 1.25 10*3/uL 1.32-3.29 L MONO x10^3 (test code = 742-7) 0.93 10*3/uL 0.33-0.92 H EOS x10^3 (test code = 711-2) 0.04 10*3/uL 0.03-0.39 BASO x10^3 (test code = 704-7) 0.05 10*3/uL 0.01-0.07 Lab Interpretation (test code = 15527-1) Abnormal [facility] GLUCOSE (AUTOMATED)2023-02-04 09:20:35* Test Item Value Reference Range Interpretation Comme nts POCT GLU (test code = 2220936495) 111 mg/dL 70-110 H Lab Interpretation (test cod e = 16561-3) Abnormal [facility] GLUCOSE (AUTOMATED)2023-02-04 03:57:37* Test Item Value Reference Range Interpretation Comme nts POCT GLU (test code = 9731200275) 100 mg/dL 70-110 Lab Interpretation (test cod e = 02427-4) [facility]23-[facility]-04 02:15:57* Test Item Value Reference Range Interpretation Comme [facility] POCT GLU (test code = 8953750377) 95 mg/dL 70-110 Lab Interpretation (test cod e = 19179-3) Normal [facility]COOX+NA+K+GLU+CA2+2023-02-04 01:21:05* Test Item Value Reference Range Interpretation Comme [facility] PH (test code = 2) 7.24 7.35-7.45 L PCO2 (test code = 7914616582) 50 See_Comment H [Automated messa ge] The system which generated this result transmitted reference range: 35 - 45 mmHg. The reference range was not used to interpret this result as normal/abnormal. PO2 (test code = 0838414677) 87 See_Comment [Automated messa ge] The system which generated this result transmitted reference range: 80 - 100 mmHg. The reference range was not used to interpret this result as normal/abnormal. HCO3 (test code = 8058096492) 21 See_Comment L [Automated messa ge] The system which generated this result transmitted reference range: 22 - 26 mEq/L. The reference range was not used to interpret this result as normal/abnormal. BE (test code = 8197808599) -6.3 See_Comment L [Automated messa ge] The system which generated this result transmitted reference range: -3.0 - 3.0 mEq/L. The reference range was not used to interpret this result as normal/abnormal. THB (test code = 5369885029) 9.6 g/dL 12.0-16.0 L %O2HB (test code = 4529802584) 93.7 % 94.0-99.0 L %COHB ART (test code = 9571898304) 0.9 % 0.0-1.5 %METHB ART (test code = 8888074552) 0.5 % 0.4-1.5 VOL%O2 ART (test code = 1537521171) 12.8 % 15.0-23.0 L NA (test code = 6235366371) 134 mmol/L 135-145 L K+ (test code = 1737821271) 5.1 mmol/L 3.5-5.0 H AC CA IONZ (test code = 2127425993) 4.90 mg/dL 4.50-5.30 GLUCOSE (test code = 5099099847) 95 mg/dL 70-110 Lab Interpretation (test code = 98288-4) [facility]COOX+NA+K+GLU+CA2+2023-02-04 01:21:05* Test Item Value Reference Range Interpretation Comme nts PH (test code = 2) 7.24 7.35-7.45 L PCO2 (test code = 9218217131) 50 See_Comment H [Automated messa ge] The system which generated this result transmitted reference range: 35 - 45 mmHg. The reference range was not used to interpret this result as normal/abnormal. PO2 (test code = 6608295714) 87 See_Comment [Automated messa ge] The system which generated this result transmitted reference range: 80 - 100 mmHg. The reference range was not used to interpret this result as normal/abnormal. HCO3 (test code = 0979707861) 21 See_Comment L [Automated messa ge] The system which generated this result transmitted reference range: 22 - 26 mEq/L. The reference range was not used to interpret this result as normal/abnormal. BE (test code = 9277574737) -6.3 See_Comment L [Automated messa ge] The system which generated this result transmitted reference range: -3.0 - 3.0 mEq/L. The reference range was not used to interpret this result as normal/abnormal. THB (test code = 9560948401) 9.6 g/dL 12.0-16.0 L %O2HB (test code = 3132800410) 93.7 % 94.0-99.0 L %COHB ART (test code = 6721801307) 0.9 % 0.0-1.5 %METHB ART (test code = 0740010664) 0.5 % 0.4-1.5 VOL%O2 ART (test code = 8602908551) 12.8 % 15.0-23.0 L NA (test code = 1620329066) 134 mmol/L 135-145 L K+ (test code = 2342540245) 5.1 mmol/L 3.5-5.0 H AC CA IONZ (test code = 2921964210) 4.90 mg/dL 4.50-5.30 GLUCOSE (test code = 9016440404) 95 mg/dL 70-110 Lab Interpretation (test code = 58409-8) [facility] 00:52:31* Test Item Value Reference Range Interpretation Comme [facility] POCT GLU (test code = 3019940170) 99 mg/dL 70-110 Lab Interpretation (test cod e = 50805-1) Normal [facility]2023-09-19 22:27:20* Test Item Value Reference Range Interpretation Comme [facility] Fibrinogen (test code = 9860387801) 322 mg/dL 167-453 Lab Interpretation (test cod e = 47938-0) Normal [facility]2023-09-19 22:27:20* Test Item Value Reference Range Interpretation Comme [facility] Fibrinogen (test code = 4767144678) 322 mg/dL 167-453 Lab Interpretation (test cod e = 90576-8) Normal [facility] METABOLIC PANEL (NA, K, CL, CO2, GLUCOSE, BUN, CREATININE, CA)2023-02-03 22:20:34* Test Item Value Reference Range Interpretation Comme nts NA (test code = 1069268599) 133 mmol/L 135-145 L K (test code = 2727253394) 4.9 mmol/L 3.5-5.0 CL (test code = 9892356178) 102 mmol/L 98-108 CO2 TOTAL (test code = 7845364505) 17 mmol/L 23-31 L AGAP (test code = 1672953204) 14 2-16 BUN (test code = 8806337232) 45 mg/dL 7-23 H GLUCOSE (test code = 4544806637) 93 mg/dL 70-110 CREATININE (test code = 7199185270) 1.70 mg/dL 0.50-1.04 H CALCIUM (test code = 6768359747) 8.2 mg/dL 8.6-10.6 L eGFR (test code = 5494532639) 29.1 mL/min/1.73m2 LOW (test code = LOW) Association of [...] or abnormalities in imaging tests). Lab Interpretation (test code = 11784-2) [facility]+NA+K+GLU+CA2+2023-02-03 22:16:10* Test Item Value Reference Range Interpretation Comme nts PH (test code = 2) 7.25 7.35-7.45 L PCO2 (test code = 0354897772) 48 See_Comment H [[employer]] The system which generated this result transmitted reference range: 35 - 45 mmHg. The reference range was not used to interpret this result as normal/abnormal. PO2 (test code = 7387335479) 79 See_Comment L [[employer]] The system which generated this result transmitted reference range: 80 - 100 mmHg. The reference range was not used to interpret this result as normal/abnormal. HCO3 (test code = 4461275556) 21 See_Comment L [Automated messa ge] The system which generated this result transmitted reference range: 22 - 26 mEq/L. The reference range was not used to interpret this result as normal/abnormal. BE (test code = 6858166304) -6.2 See_Comment L [Automated messa ge] The system which generated this result transmitted reference range: -3.0 - 3.0 mEq/L. The reference range was not used to interpret this result as normal/abnormal. THB (test code = 4532552080) 9.5 g/dL 12.0-16.0 L %O2HB (test code = 0542145292) 92.3 % 94.0-99.0 L %COHB ART (test code = 3979648686) 1.0 % 0.0-1.5 %METHB ART (test code = 9233117139) 0.5 % 0.4-1.5 VOL%O2 ART (test code = 1971049757) 12.4 % 15.0-23.0 L NA (test code = 8176036488) 135 mmol/L 135-145 K+ (test code = 1227175796) 5.0 mmol/L 3.5-5.0 AC CA IONZ (test code = 0784525172) 4.90 mg/dL 4.50-5.30 GLUCOSE (test code = 3265080836) 101 mg/dL 70-110 Lab Interpretation (test code = 11869-0) Abnormal [facility] WITH SDEK9827-32-57 21:56:32* Test Item Value Reference Range Interpretation Comme nts WBC (test code = 6690-2) 15.19 See_Comment H [Automated message] The system which generated this result transmitted reference range: 4.30 - 11.10 10*3/?L. The reference range was not used to interpret this result as normal/abnormal. RBC (test code = 789-8) 3.47 See_Comment L [Automated message] The system which generated this result transmitted reference range: 3.93 - 5.25 10*6/?L. The reference range was not used to interpret this result as normal/abnormal. HGB (test code = 718-7) 8.6 g/dL 11.6-15.0 L HCT (test code = 4544-3) 27.3 % 35.7-45.2 L MCV (test code = 787-2) 78.7 fL 80.6-95.5 L MCH (test code = 785-6) 24.8 pg 25.9-32.8 L MCHC (test code = 786-4) 31.5 g/dL 31.6-35.1 L RDW-SD (test code = 79694-3) 53.7 fL 39.0-49.9 H RDW-CV (test code = 788-0) 18.8 % 12.0-15.5 H PLT (test code = 777-3) 254 See_Comment [Automated message] The system which generated this result transmitted reference range: 166 - 358 10*3/?L. The reference range was not used to interpret this result as normal/abnormal. MPV (test code = 75724-5) 10.3 fL 9.5-12.9 NRBC/100 WBC (test code = 5337242707) 0.9 See_Comment [Automated message] The system which generated this result transmitted reference range: 0.0 - 10.0 /100 WBCs. The reference range was not used to interpret this result as normal/abnormal. NRBC x10^3 (test code = 1771543745) 0.13 See_Comment [Automated message] The system which generated this result transmitted reference range: 10*3/?L. The reference range was not used to interpret this result as normal/abnormal. GRAN MAT (NEUT) % (test code = 770-8) 84.4 % IMM GRAN % (test code = 7610997638) 1.20 % LYMPH % (test code = 736-9) 6.5 % MONO % (test code = 5905-5) 7.4 % EOS % (test code = 713-8) 0.3 % BASO % (test code = 706-2) 0.2 % GRAN MAT x10^3(ANC) (test code = 6280080843) 12.82 10*3/uL 1.88-7.09 H IMM GRAN x10^3 (test code = 2690541009) 0.18 10*3/uL 0.00-0.06 H LYMPH x10^3 (test code = 731-0) 0.99 10*3/uL 1.32-3.29 L MONO x10^3 (test code = 742-7) 1.13 10*3/uL 0.33-0.92 H EOS x10^3 (test code = 711-2) 0.04 10*3/uL 0.03-0.39 BASO x10^3 (test code = 704-7) 0.03 10*3/uL 0.01-0.07 Lab Interpretation (test code = 71692-0) [facility] 21:33:38* Test Item Value Reference Range Interpretation Comme nts POCT GLU (test code = 1151288429) 102 mg/dL 70-110 Lab Interpretation (test cod e = 62967-6) Normal [facility], [id number] 20:56:41* Test Item Value Reference Range Interpretation Comme nts VIT B12 (test code = 6102735660) 921 pg/mL 240-930 LOW (test code = LOW) Biotin has been reported to cause a positive bias, interpret results relative to patient's use of biotin. Lab Interpretation (test code = 33785-9) Normal [facility], [id number] 20:56:41* Test Item Value Reference Range Interpretation Comme nts VIT B12 (test code = 4434355242) 921 pg/mL 240-930 LOW (test code = LOW) Biotin has been reported to cause a positive bias, interpret results relative to patient's use of biotin. Lab Interpretation (test code = 51949-4) Normal [facility]COOX+NA+K+GLU+CA2+2023-02-03 20:44:30* Test Item Value Reference Range Interpretation Comme nts PH (test code = 2) 7.31 7.35-7.45 L PCO2 (test code = 5766259774) 17 See_Comment L [Automated messa ge] The system which generated this result transmitted reference range: 35 - 45 mmHg. The reference range was not used to interpret this result as normal/abnormal. PO2 (test code = 4567281503) 131 See_Comment H [Automated messa ge] The system which generated this result transmitted reference range: 80 - 100 mmHg. The reference range was not used to interpret this result as normal/abnormal. HCO3 (test code = 9333825987) 8 See_Comment L [Automated messa ge] The system which generated this result transmitted reference range: 22 - 26 mEq/L. The reference range was not used to interpret this result as normal/abnormal. BE (test code = 5487481421) -17.1 See_Comment L [Automated messa ge] The system which generated this result transmitted reference range: -3.0 - 3.0 mEq/L. The reference range was not used to interpret this result as normal/abnormal. THB (test code = 8790344322) 3.6 g/dL 12.0-16.0 LL %O2HB (test code = 7072160190) 95.7 % 94.0-99.0 %COHB ART (test code = 9521541546) 0.3 % 0.0-1.5 %METHB ART (test code = 5825079725) 1.2 % 0.4-1.5 VOL%O2 ART (test code = 0533855620) 5.2 % 15.0-23.0 L NA (test code = 8799571506) 142 mmol/L 135-145 K+ (test code = 2701804560) 1.7 mmol/L 3.5-5.0 LL AC CA IONZ (test code = 0296235781) 2.60 mg/dL 4.50-5.30 LL GLUCOSE (test code = 8801640519) 34 mg/dL 70-110 LL Lab Interpretation (test code = 68536-1) [facility] 17:40:52* Test Item Value Reference Range Interpretation Comme nts FOLATE SER (test code = 8585702442) 3.0-20.0 H Biotin has been reported to cause a positive bias, interpret results relative to patient's use of biotin. Lab Interpretation (test code = 83105-2) [facility] 17:40:52* Test Item Value Reference Range Interpretation Comme nts FOLATE SER (test code = 5776267634) 3.0-20.0 H Biotin has been reported to cause a positive bias, interpret results relative to patient's use of biotin. Lab Interpretation (test code = 38965-4) [facility]normal [facility]23-[facility]-03 17:29:17* Test Item Value Reference Range Interpretation Comme nts POCT GLU (test code = 8900631512) 99 mg/dL 70-110 Lab Interpretation (test cod e = 12281-7) Normal [facility] WITH [id number] 15:30:18* Test Item Value Reference Range Interpretation Comme nts WBC (test code = 6690-2) 14.89 See_Comment H [Automated message] The system which generated this result transmitted reference range: 4.30 - 11.10 10*3/?L. The reference range was not used to interpret this result as normal/abnormal. RBC (test code = 789-8) 3.34 See_Comment L [Automated message] The system which generated this result transmitted reference range: 3.93 - 5.25 10*6/?L. The reference range was not used to interpret this result as normal/abnormal. HGB (test code = 718-7) 8.2 g/dL 11.6-15.0 L HCT (test code = 4544-3) 26.0 % 35.7-45.2 L MCV (test code = 787-2) 77.8 fL 80.6-95.5 L MCH (test code = 785-6) 24.6 pg 25.9-32.8 L MCHC (test code = 786-4) 31.5 g/dL 31.6-35.1 L RDW-SD (test code = 31574-3) 52.0 fL 39.0-49.9 H RDW-CV (test code = 788-0) 18.6 % 12.0-15.5 H PLT (test code = 777-3) 267 See_Comment [Automated message] The system which generated this result transmitted reference range: 166 - 358 10*3/?L. The reference range was not used to interpret this result as normal/abnormal. MPV (test code = 89822-1) 11.0 fL 9.5-12.9 NRBC/100 WBC (test code = 7455216523) 0.9 See_Comment [Automated message] The system which generated this result transmitted reference range: 0.0 - 10.0 /100 WBCs. The reference range was not used to interpret this result as normal/abnormal. NRBC x10^3 (test code = 6363004553) 0.14 See_Comment [Automated message] The system which generated this result transmitted reference range: 10*3/?L. The reference range was not used to interpret this result as normal/abnormal. GRAN MAT (NEUT) % (test code = 770-8) 86.1 % IMM GRAN % (test code = 5937783347) 0.70 % LYMPH % (test code = 736-9) 5.9 % MONO % (test code = 5905-5) 7.0 % EOS % (test code = 713-8) 0.1 % BASO % (test code = 706-2) 0.2 % GRAN MAT x10^3(ANC) (test code = 4216134621) 12.81 10*3/uL 1.88-7.09 H IMM GRAN x10^3 (test code = 0137148016) 0.11 10*3/uL 0.00-0.06 H LYMPH x10^3 (test code = 731-0) 0.88 10*3/uL 1.32-3.29 L MONO x10^3 (test code = 742-7) 1.04 10*3/uL 0.33-0.92 H EOS x10^3 (test code = 711-2) 0.03-0.39 L BASO x10^3 (test code = 704-7) 0.03 10*3/uL 0.01-0.07 Lab Interpretation (test code = 55157-1) [facility]normal [facility] HospitalProthrombin Time / [id number] 14:08:11* Test Item Value Reference Range Interpretation Comme nts PROTIME PATIENT (test code = 5964-2) 22.2 See_Comment H [Automated Therma Flite[employer] ge] The system which generated this result transmitted reference range: 10.1 - 12.6 Seconds. The reference range was not used to interpret this result as normal/abnormal. INR (test code = 6301-6) 1.9 Normal INR <1.1; Warfarin Therapeutic range 2.0 to 3.0 or 2.5 to 3.5, depending upon the indications. Lab Interpretation (test code = 85693-4) [facility]normal [facility])2023-02-03 13:34:12* Test Item Value Reference Range Interpretation Comme nts POCT GLU (test code = 4940385033) 79 mg/dL 70-110 Lab Interpretation (test cod e = 87588-1) Normal [facility] HospitalFERRITIN [id number] 11:32:20* Test Item Value Reference Range Interpretation Comme nts FERRITIN (test code = 0940700697) 8.6 ng/mL 11.0-264.0 L LOW (test code = LOW) Biotin has been reported to cause a negative bias, interpret results relative to patient's use of biotin. Lab Interpretation (test code = 29338-4) Abnormal [facility]FERR[facility]IN [id number] 11:32:20* Test Item Value Reference Range Interpretation Comme nts FERRITIN (test code = 9493799423) 8.6 ng/mL 11.0-264.0 L LOW (test code = LOW) Biotin has been reported to cause a negative bias, interpret results relative to patient's use of biotin. Lab Interpretation (test code = 83396-4) Abnormal [facility] IRON BINDING [id number] 11:07:39 * Test Item Value Reference Range Interpretation Comme nts TIBC (test code = 2605815153) 528 ug/dL 250-410 H % FE SAT (test code = 5213300721) 65 % 20-50 H Lab Interpretation (test cod e = 94561-4) Abnormal [facility] IRON BINDING [id number] 11:07:39 * Test Item Value Reference Range Interpretation Comme nts TIBC (test code = 2942122236) 528 ug/dL 250-410 H % FE SAT (test code = 4743499809) 65 % 20-50 H Lab Interpretation (test cod e = 56017-4) [facility]normal [facility]IRON2023-[facility] 10:57:35* Test Item Value Reference Range Interpretation Comme nts IRON (test code = 8437712105) 345 ug/dL 50-160 H Lab Interpretation (test cod e = 15082-2) Abnormal [facility] METABOLIC PANEL (NA, K, CL, CO2, GLUCOSE, BUN, CREATININE, CA)2023-02-03 10:57:35* Test Item Value Reference Range Interpretation Comme nts NA (test code = 9429241524) 134 mmol/L 135-145 L K (test code = 5982951181) 4.8 mmol/L 3.5-5.0 CL (test code = 4306671759) 104 mmol/L 98-108 CO2 TOTAL (test code = 0178148261) 19 mmol/L 23-31 L AGAP (test code = 2863584812) 11 2-16 BUN (test code = 9717483192) 47 mg/dL 7-23 H GLUCOSE (test code = 4943033381) 75 mg/dL 70-110 CREATININE (test code = 0679615733) 1.96 mg/dL 0.50-1.04 H CALCIUM (test code = 3406194681) 8.1 mg/dL 8.6-10.6 L eGFR (test code = 4201548863) 24.7 mL/min/1.73m2 LOW (test code = LOW) Association of [...] or abnormalities in imaging tests). Lab Interpretation (test code = 86877-7) [facility]normal [facility]MAGNESIUM2023-[facility]-19 10:57:35* Test Item Value Reference Range Interpretation Comme nts MAGNESIUM (test code = 2835229907) 1.9 mg/dL 1.7-2.4 Lab Interpretation (test cod e = 79318-5) Normal [facility]PHOSPHORUS2023-09-19 10:57:35* Test Item Value Reference Range Interpretation Comme nts PHOSPHORUS (test code = 4458551084) 5.6 mg/dL 2.5-5.0 H Lab Interpretation (test cod e = 66469-8) [facility]normal [facility] 10:57:35* Test Item Value Reference Range Interpretation Comme nts IRON (test code = 0163952049) 345 ug/dL 50-160 H Lab Interpretation (test cod e = 51192-8) Abnormal [facility] HospitalGLYCOSYLATED HEMOGLOBIN (A1C)2023-02-03 09:57:16* Test Item Value Reference Range Interpretation Comme nts HGB A1C (test code = 4548-4) 6.9 % 4.0-5.7 H LOW (test code = LOW) Reference RangesNormal: <5.7%Prediabetes: 5.7 - 6.4%Diabetes: > 6.5% Lab Interpretation (test code = 13672-6) Abnormal [facility] HospitalGLYCOSYLATED HEMOGLOBIN (A1C)2023-02-03 09:57:16* Test Item Value Reference Range Interpretation Comme nts HGB A1C (test code = 4548-4) 6.9 % 4.0-5.7 H LOW (test code = LOW) Reference RangesNormal: <5.7%Prediabetes: 5.7 - 6.4%Diabetes: > 6.5% Lab Interpretation (test code = 37463-2) Abnormal [facility] HospitalCBC WITHOUT [id number] 09:48:26* Test Item Value Reference Range Interpretation Comme nts WBC (test code = 6690-2) 13.10 See_Comment H [Automated message] The system which generated this result transmitted reference range: 4.30 - 11.10 10*3/?L. The reference range was not used to interpret this result as normal/abnormal. RBC (test code = 789-8) 3.39 See_Comment L [Automated message] The system which generated this result transmitted reference range: 3.93 - 5.25 10*6/?L. The reference range was not used to interpret this result as normal/abnormal. HGB (test code = 718-7) 8.2 g/dL 11.6-15.0 L HCT (test code = 4544-3) 27.1 % 35.7-45.2 L MCH (test code = 785-6) 24.2 pg 25.9-32.8 L MCV (test code = 787-2) 79.9 fL 80.6-95.5 L MCHC (test code = 786-4) 30.3 g/dL 31.6-35.1 L PLT (test code = 777-3) 252 See_Comment [Automated message] The system which generated this result transmitted reference range: 166 - 358 10*3/?L. The reference range was not used to interpret this result as normal/abnormal. MPV (test code = 66736-4) 10.6 fL 9.5-12.9 RDW-CV (test code = 788-0) 18.7 % 12.0-15.5 H RDW-SD (test code = 89907-4) 54.2 fL 39.0-49.9 H NRBC x10^3 (test code = 9372947582) 0.12 See_Comment [Automated messa ge] The system which generated this result transmitted reference range: 10*3/?L. The reference range was not used to interpret this result as normal/abnormal. NRBC/100 WBC (test code = 5853241114) 0.9 See_Comment [Automated messa ge] The system which generated this result transmitted reference range: 0.0 - 10.0 /100 WBCs. The reference range was not used to interpret this result as normal/abnormal. IPF % (test code = 4819304068) Lab Interpretation (test code = 87778-1) Abnormal [facility] WITHOUT [id number] 09:48:26* Test Item Value Reference Range Interpretation Comme nts WBC (test code = 6690-2) 13.10 See_Comment H [Automated message] The system which generated this result transmitted reference range: 4.30 - 11.10 10*3/?L. The reference range was not used to interpret this result as normal/abnormal. RBC (test code = 789-8) 3.39 See_Comment L [Automated message] The system which generated this result transmitted reference range: 3.93 - 5.25 10*6/?L. The reference range was not used to interpret this result as normal/abnormal. HGB (test code = 718-7) 8.2 g/dL 11.6-15.0 L HCT (test code = 4544-3) 27.1 % 35.7-45.2 L MCH (test code = 785-6) 24.2 pg 25.9-32.8 L MCV (test code = 787-2) 79.9 fL 80.6-95.5 L MCHC (test code = 786-4) 30.3 g/dL 31.6-35.1 L PLT (test code = 777-3) 252 See_Comment [Automated message] The system which generated this result transmitted reference range: 166 - 358 10*3/?L. The reference range was not used to interpret this result as normal/abnormal. MPV (test code = 33860-0) 10.6 fL 9.5-12.9 RDW-CV (test code = 788-0) 18.7 % 12.0-15.5 H RDW-SD (test code = 86702-3) 54.2 fL 39.0-49.9 H NRBC x10^3 (test code = 8950012942) 0.12 See_Comment [Automated messa ge] The system which generated this result transmitted reference range: 10*3/?L. The reference range was not used to interpret this result as normal/abnormal. NRBC/100 WBC (test code = 6570617403) 0.9 See_Comment [Automated messa ge] The system which generated this result transmitted reference range: 0.0 - 10.0 /100 WBCs. The reference range was not used to interpret this result as normal/abnormal. IPF % (test code = 0666992780) Lab Interpretation (test code = 97483-4) [facility]normal [facility]2023-02-03 09:14:47* Test Item Value Reference Range Interpretation Comme nts POCT GLU (test code = 6641469712) 91 mg/dL 70-110 Lab Interpretation (test cod e = 84809-9) Normal [facility] HospitalPrepar Packed RBC (in units), 1 Units 2023-02-03 05:32:46* Test Item Value Reference Range Interpretation Comme nts Cross Match Result (test code = 4409) Compatible ISBT Blood Type Code (test code = 929357) 6200 Unit Blood Type (test code = 4410) A Pos Unit Number (test code = 4411) [id number] Blood Expiration Date & Time (test code = 680862) [id number] Status Information (test code = 4412) Issued Product Identification (test code = 4413) Red Blood Cells Product Code (test code = 4414) [id number] Performed at [facility] Blood [address] Free: [phone] No. [id number] [facility] Packed RBC (in units), 1 Units 2023-02-03 05:32:46* Test Item Value Reference Range Interpretation Comme nts Cross Match Result (test code = 4409) Compatible ISBT Blood Type Code (test code = 877883) 6200 Unit Blood Type (test code = 4410) A Pos Unit Number (test code = 4411) [id number] Blood Expiration Date & Time (test code = 512910) [id number] Status Information (test code = 4412) Issued Product Identification (test code = 4413) Red Blood Cells Product Code (test code = 4414) [id number] Performed at [facility] Blood [address] Free: [phone] No. [id number] [facility] HospitalType and Screen - ONCE [id number] 04:44:00* Test Item Value Reference Range Interpretation Comme nts ABO & RH (test code = 20) A POSITIVE IAT (test code = 1185) Negative [facility] HospitalType and Screen - ONCE [id number] 04:44:00* Test Item Value Reference Range Interpretation Comme nts ABO & RH (test code = 20) A POSITIVE IAT (test code = 1185) Negative [facility]PO[facility]AUT[facility]ATED)2023-02-03 04:28:31* Test Item Value Reference Range Interpretation Comme nts POCT GLU (test code = 7197589288) 107 mg/dL 70-110 Lab Interpretation (test cod e = 86268-7) Normal [facility] HospitalPrepare Packed RBC (in units), 2 Units 2023-02-03 01:04:45* Test Item Value Reference Range Interpretation Comme nts Cross Match Result (test code = 4409) Compatible ISBT Blood Type Code (test code = 009911) 6200 Unit Blood Type (test code = 4410) A Pos Unit Number (test code = 4411) [id number] Blood Expiration Date & Time (test code = 737587) [id number] Status Information (test code = 4412) Issued Product Identification (test code = 4413) Red Blood Cells Product Code (test code = 4414) [id number] Performed at [facility] Blood [address] [place], [place] [phone] Free: [phone] No. [id number] [facility] HospitalTHYROID STIMULATING [id number] 22:22:55 * Test Item Value Reference Range Interpretation Comme nts TSH (test code = 2650336549) 2.87 See_Comment Biotin has been reported to cause a negative bias, interpret results relative to patient's use of biotin. [Automated message] The system which generated this result transmitted reference range: 0.45 - 4.70 mIU/L. The reference range was not used to interpret this result as normal/abnormal. Lab Interpretation (test code = 01497-4) Normal [facility] HospitalTHYROID STIMULATING [id number] 22:22:55 * Test Item Value Reference Range Interpretation Comme nts TSH (test code = 0539415054) 2.87 See_Comment Biotin has been reported to cause a negative bias, interpret results relative to patient's use of biotin. [Automated message] The system which generated this result transmitted reference range: 0.45 - 4.70 mIU/L. The reference range was not used to interpret this result as normal/abnormal. Lab Interpretation (test code = 41446-1) Normal [facility] HospitalType and Screen - ONCE [id number] 21:42:00* Test Item Value Reference Range Interpretation Comme nts ABO & RH (test code = 20) A Positive IAT (test code = 1185) Negative [facility] HospitalAC ABG + LACTIC [id number] 20:35:56* Test Item Value Reference Range Interpretation Comme nts PH (test code = 2) 7.31 7.35-7.45 L PCO2 (test code = 6800551122) 37 See_Comment [Automated messa ge] The system which generated this result transmitted reference range: 35 - 45 mmHg. The reference range was not used to interpret this result as normal/abnormal. PO2 (test code = 9331276432) 94 See_Comment [Automated messa ge] The system which generated this result transmitted reference range: 80 - 100 mmHg. The reference range was not used to interpret this result as normal/abnormal. HCO3 (test code = 9208709850) 18 See_Comment L [Automated messa ge] The system which generated this result transmitted reference range: 22 - 26 mEq/L. The reference range was not used to interpret this result as normal/abnormal. BE (test code = 0930094187) -7.7 See_Comment L [Automated messa ge] The system which generated this result transmitted reference range: -3.0 - 3.0 mEq/L. The reference range was not used to interpret this result as normal/abnormal. LACTIC ACID (test code = 1045954284) 3.99 mmol/L 0.50-2.20 H Lab Interpretation (test code = 92899-5) Abnormal [facility] HospitalHEMOGLOBIN [id number] 05:52:09* Test Item Value Reference Range Interpretation Comme nts HEMOGLOBIN A1c (test code = 70828) 8.2 % 4.2-5.6 H [employer] GUIDELINES FOR HGB A1C: PREDIABETES/INCREASED RISK . . . . . . . 5.7-6.4% DIAGNOSIS OF DIABETES . . . . . . . . . >=6.5% WITH CONFIRMATION OR APPROPRIATE SYMPTOMS NOTE: ASSAY MAY BE AFFECTED BY HEMOGLOBINOPATHIES (SICKLE CELL ANEMIA, S-C DISEASE, OTHERS) OR ARTIFICIALLY LOWERED BY DECREASED RED CELL SURVIVAL (HEMOLYTIC ANEMIAS, BLOOD LOSS, ETC.). CONSIDER ALTERNATE TESTING OR LABORATORY CONSULTATION. BASIC METABOLIC [id number] 05:11:09* Test Item Value Reference Range Interpretation Comme nts GLUCOSE (test code = 2217) 241 MG/DL 70-99 H BUN (test code = 2208) 21 MG/DL 8-23 CREATININE (test code = 2214) 0.99 MG/DL 0.60-1.30 eGFR (2020 CKD-EPI) (test code = 60379) 59 ML/MIN/1.73 >60 L The NKF-ASN Taskforce recommends use of Cystatin C to confirm eGFR inadults at risk for CKD. [facility] offers eGFR with Cystatin C-Creatinineusing the 2020 CKD-EPI eGFR_creat-cystat equation (order code 3057) toincrease the accuracy of estimated GFR. For more information, contactur key account manager or see announcement [email or web address] SODIUM (test code = 2231) 138 MEQ/L 133-146 POTASSIUM (test code = 2228) 4.0 MEQ/L 3.5-5.4 CHLORIDE (test code = 2215) 97 MEQ/L 95-107 CARBON DIOXIDE (test code = 2206) 30 MEQ/L 19-31 CALCIUM (test code = 2209) 9.3 MG/DL 8.5-10.5 UNLESS OTHERWISE INDICATED, ALL TESTING PERFORMED AT [facility] [address] [place] [address] TIP PUNCHER: DIANELYS ANDERSON M.D. CLIA NUMBER [id number] [facility] [place]. [id number] BASIC METABOLIC [id number] 00:00:00* Test Item Value Reference Range Interpretation Comme nts GLUCOSE (test code = 2217) 241 MG/DL BUN (test code = 2208) 21 MG/DL CREATININE (test code = 2214) 0.99 MG/DL eGFR (2020 CKD-EPI) (test co de = 53619) 59 ML/MIN/1.73 SODIUM (test code = 2231) 138 MEQ/L POTASSIUM (test code = 2228) 4.0 MEQ/L CHLORIDE (test code = 2215) 97 MEQ/L CARBON DIOXIDE (test code = 2206) 30 MEQ/L CALCIUM (test code = 2209) 9.3 MG/DL Surendra Ross AustinHEMOGLOBIN [id number] 00:00:00* Test Item Value Reference Range Interpretation Comme nts HEMOGLOBIN A1c (test code = 46616) 8.2 % Surendra Ross AustinBASIC METABOLIC [id number] 00:00:00* Test Item Value Reference Range Interpretation Comme nts GLUCOSE (test code = 2217) 241 MG/DL BUN (test code = 2208) 21 MG/DL CREATININE (test code = 2214) 0.99 MG/DL eGFR (2020 CKD-EPI) (test co de = 85415) 59 ML/MIN/1.73 SODIUM (test code = 2231) 138 MEQ/L POTASSIUM (test code = 2228) 4.0 MEQ/L CHLORIDE (test code = 2215) 97 MEQ/L CARBON DIOXIDE (test code = 2206) 30 MEQ/L CALCIUM (test code = 2209) 9.3 MG/DL Surendra Ross AustinHEMOGLOBIN [id number] 00:00:00* Test Item Value Reference Range Interpretation Comme nts HEMOGLOBIN A1c (test code = 38294) 8.2 % Surendra Ross AustinBASIC METABOLIC [id number] 00:00:00* Test Item Value Reference Range Interpretation Comme nts GLUCOSE (test code = 2217) 241 MG/DL BUN (test code = 2208) 21 MG/DL CREATININE (test code = 2214) 0.99 MG/DL eGFR (2020 CKD-EPI) (test co de = 34473) 59 ML/MIN/1.73 SODIUM (test code = 2231) 138 MEQ/L POTASSIUM (test code = 2228) 4.0 MEQ/L CHLORIDE (test code = 2215) 97 MEQ/L CARBON DIOXIDE (test code = 2206) 30 MEQ/L CALCIUM (test code = 2209) 9.3 MG/DL Surendra Ross AustinHEMOGLOBIN [id number] 00:00:00* Test Item Value Reference Range Interpretation Comme nts HEMOGLOBIN A1c (test code = 26216) 8.2 % Surendra Ross AustinBASIC METABOLIC [id number] 00:00:00* Test Item Value Reference Range Interpretation Comme nts GLUCOSE (test code = 2217) 241 MG/DL BUN (test code = 2208) 21 MG/DL CREATININE (test code = 2214) 0.99 MG/DL eGFR (2020 CKD-EPI) (test co de = 71645) 59 ML/MIN/1.73 SODIUM (test code = 2231) 138 MEQ/L POTASSIUM (test code = 2228) 4.0 MEQ/L CHLORIDE (test code = 2215) 97 MEQ/L CARBON DIOXIDE (test code = 2206) 30 MEQ/L CALCIUM (test code = 2209) 9.3 MG/DL Surendra Ross AustinHEMOGLOBIN [id number] 00:00:00* Test Item Value Reference Range Interpretation Comme nts HEMOGLOBIN A1c (test code = 49156) 8.2 % Surendra Ross AustinBASIC METABOLIC [id number] 00:00:00* Test Item Value Reference Range Interpretation Comme nts GLUCOSE (test code = 2217) 241 MG/DL BUN (test code = 2208) 21 MG/DL CREATININE (test code = 2214) 0.99 MG/DL eGFR (2020 CKD-EPI) (test co de = 52586) 59 ML/MIN/1.73 SODIUM (test code = 2231) 138 MEQ/L POTASSIUM (test code = 2228) 4.0 MEQ/L CHLORIDE (test code = 2215) 97 MEQ/L CARBON DIOXIDE (test code = 2206) 30 MEQ/L CALCIUM (test code = 2209) 9.3 MG/DL Surendra Ross AustinHEMOGLOBIN [id number] 00:00:00* Test Item Value Reference Range Interpretation Comme nts HEMOGLOBIN A1c (test code = 95018) 8.2 % Surendra Ross AustinBASIC METABOLIC [id number] 00:00:00* Test Item Value Reference Range Interpretation Comme nts GLUCOSE (test code = 2217) 241 MG/DL BUN (test code = 2208) 21 MG/DL CREATININE (test code = 2214) 0.99 MG/DL eGFR (2020 CKD-EPI) (test co de = 06960) 59 ML/MIN/1.73 SODIUM (test code = 2231) 138 MEQ/L POTASSIUM (test code = 2228) 4.0 MEQ/L CHLORIDE (test code = 2215) 97 MEQ/L CARBON DIOXIDE (test code = 2206) 30 MEQ/L CALCIUM (test code = 2209) 9.3 MG/DL Surendra Ross AustinHEMOGLOBIN [id number] 00:00:00* Test Item Value Reference Range Interpretation Comme nts HEMOGLOBIN A1c (test code = 78514) 8.2 % Surendra Ross AustinBASIC METABOLIC [id number] 00:00:00* Test Item Value Reference Range Interpretation Comme nts GLUCOSE (test code = 2217) 241 MG/DL BUN (test code = 2208) 21 MG/DL CREATININE (test code = 2214) 0.99 MG/DL eGFR (2020 CKD-EPI) (test co de = 10166) 59 ML/MIN/1.73 SODIUM (test code = 2231) 138 MEQ/L POTASSIUM (test code = 2228) 4.0 MEQ/L CHLORIDE (test code = 2215) 97 MEQ/L CARBON DIOXIDE (test code = 2206) 30 MEQ/L CALCIUM (test code = 2209) 9.3 MG/DL Surendra Ross AustinHEMOGLOBIN [id number] 00:00:00* Test Item Value Reference Range Interpretation Comme nts HEMOGLOBIN A1c (test code = 49602) 8.2 % Surendra Ross AustinBASIC METABOLIC [id number] 00:00:00* Test Item Value Reference Range Interpretation Comme nts GLUCOSE (test code = 2217) 241 MG/DL BUN (test code = 2208) 21 MG/DL CREATININE (test code = 2214) 0.99 MG/DL eGFR (2020 CKD-EPI) (test co de = 04681) 59 ML/MIN/1.73 SODIUM (test code = 2231) 138 MEQ/L POTASSIUM (test code = 2228) 4.0 MEQ/L CHLORIDE (test code = 2215) 97 MEQ/L CARBON DIOXIDE (test code = 2206) 30 MEQ/L CALCIUM (test code = 2209) 9.3 MG/DL Surendra Ross AustinHEMOGLOBIN [id number] 00:00:00* Test Item Value Reference Range Interpretation Comme nts HEMOGLOBIN A1c (test code = 49439) 8.2 % [facility] [place]2022-[place]-07 17:24:33* Test Item Value Reference Range Interpretation Comme nts POCT GLU (test code = 1729863640) 245 mg/dL 70-110 H Lab Interpretation (test cod e = 99801-8) [facility] 13:37:51* Test Item Value Reference Range Interpretation Comme nts POCT GLU (test code = 1461202885) 191 mg/dL 70-110 H Lab Interpretation (test cod e = 96351-4) Abnormal [facility] WITH [id number] 09:42:55* Test Item Value Reference Range Interpretation Comme nts WBC (test code = 6690-2) 7.12 See_Comment [Automated messa ge] The system which generated this result transmitted reference range: 4.30 - 11.10 10*3/?L. The reference range was not used to interpret this result as normal/abnormal. RBC (test code = 789-8) 3.70 See_Comment L [Automated messa ge] The system which generated this result transmitted reference range: 3.93 - 5.25 10*6/?L. The reference range was not used to interpret this result as normal/abnormal. HGB (test code = 718-7) 10.1 g/dL 11.6-15.0 L HCT (test code = 4544-3) 31.7 % 35.7-45.2 L MCV (test code = 787-2) 85.7 fL 80.6-95.5 MCH (test code = 785-6) 27.3 pg 25.9-32.8 MCHC (test code = 786-4) 31.9 g/dL 31.6-35.1 RDW-SD (test code = 72128-3) 49.3 fL 39.0-49.9 RDW-CV (test code = 788-0) 15.7 % 12.0-15.5 H PLT (test code = 777-3) 308 See_Comment [Automated messa ge] The system which generated this result transmitted reference range: 166 - 358 10*3/?L. The reference range was not used to interpret this result as normal/abnormal. MPV (test code = 20601-7) 9.7 fL 9.5-12.9 NRBC/100 WBC (test code = 7226738447) 0.0 See_Comment [Automated me ssage] The system which generated this result transmitted reference range: 0.0 - 10.0 /100 WBCs. The reference range was not used to interpret this result as normal/abnormal. NRBC x10^3 (test code = 5437848149) See_Comment [Automated messa ge] The system which generated this result transmitted reference range: 10*3/?L. The reference range was not used to interpret this result as normal/abnormal. GRAN MAT (NEUT) % (test code = 770-8) 54.6 % IMM GRAN % (test code = 0514013966) 0.40 % LYMPH % (test code = 736-9) 26.3 % MONO % (test code = 5905-5) 12.2 % EOS % (test code = 713-8) 5.8 % BASO % (test code = 706-2) 0.7 % GRAN MAT x10^3(ANC) (test code = 6981907897) 3.89 10*3/uL 1.88-7.09 IMM GRAN x10^3 (test code = 3810043179) 0.03 10*3/uL 0.00-0.06 LYMPH x10^3 (test code = 731-0) 1.87 10*3/uL 1.32-3.29 MONO x10^3 (test code = 742-7) 0.87 10*3/uL 0.33-0.92 EOS x10^3 (test code = 711-2) 0.41 10*3/uL 0.03-0.39 H BASO x10^3 (test code = 704-7) 0.05 10*3/uL 0.01-0.07 Lab Interpretation (test code = 28191-1) Abnormal [facility] GLUCOSE (AUTOMATED)2022-11-07 01:42:02* Test Item Value Reference Range Interpretation Comme nts POCT GLU (test code = 9237175142) 310 mg/dL 70-110 H Lab Interpretation (test cod e = 74145-1) Abnormal [facility] GLUCOSE (AUTOMATED)2022-11-06 23:01:23* Test Item Value Reference Range Interpretation Comme nts POCT GLU (test code = 9939516987) 230 mg/dL 70-110 H Lab Interpretation (test cod e = 26516-5) [facility] 17:54:33* Test Item Value Reference Range Interpretation Comme nts POCT GLU (test code = 3665301561) 268 mg/dL 70-110 H Lab Interpretation (test cod e = 11165-8) [facility] 13:26:49* Test Item Value Reference Range Interpretation Comme nts POCT GLU (test code = 1138568158) 170 mg/dL 70-110 H Lab Interpretation (test cod e = 75567-7) [facility]06 01:36:25* Test Item Value Reference Range Interpretation Comme nts POCT GLU (test code = 7025310430) 144 mg/dL 70-110 H Lab Interpretation (test cod e = 48164-6) Abnormal [facility] GLUCOSE (AUTOMATED)2022-11-05 22:41:21* Test Item Value Reference Range Interpretation Comme nts POCT GLU (test code = 8444160314) 261 mg/dL 70-110 H Lab Interpretation (test cod e = 26790-0) [facility]20[facility]-05 17:39:23* Test Item Value Reference Range Interpretation Comme nts POCT GLU (test code = 6520453769) 270 mg/dL 70-110 H Lab Interpretation (test cod e = 89185-2) [facility] 12:21:21* Test Item Value Reference Range Interpretation Comme nts POCT GLU (test code = 0155760603) 186 mg/dL 70-110 H Lab Interpretation (test cod e = 81643-8) [facility] 02:03:22* Test Item Value Reference Range Interpretation Comme nts POCT GLU (test code = 4291199964) 250 mg/dL 70-110 H Lab Interpretation (test cod e = 88355-6) Abnormal [facility] GLUCOSE (AUTOMATED)2022-11-04 21:12:00* Test Item Value Reference Range Interpretation Comme nts POCT GLU (test code = 9310911570) 277 mg/dL 70-110 H Lab Interpretation (test cod e = 36184-8) Abnormal [facility] GLUCOSE (AUTOMATED)2022-11-04 16:26:05* Test Item Value Reference Range Interpretation Comme nts POCT GLU (test code = 7141719713) 265 mg/dL 70-110 H Lab Interpretation (test cod e = 56720-7) Abnormal [facility] GLUCOSE (AUTOMATED)2022-11-04 12:44:23* Test Item Value Reference Range Interpretation Comme nts POCT GLU (test code = 4583366402) 209 mg/dL 70-110 H Lab Interpretation (test cod e = 03044-0) Abnormal [facility] METABOLIC PANEL (NA, K, CL, CO2, GLUCOSE, BUN, CREATININE, CA)2022-11-04 09:47:25* Test Item Value Reference Range Interpretation Comme nts NA (test code = 5847789718) 130 mmol/L 135-145 L K (test code = 0544156531) 3.7 mmol/L 3.5-5.0 CL (test code = 5144844038) 88 mmol/L 98-108 L CO2 TOTAL (test code = 1512180197) 36 mmol/L 23-31 H AGAP (test code = 1537120863) 6 2-16 BUN (test code = 7697718426) 40 mg/dL 7-23 H GLUCOSE (test code = 6870537952) 203 mg/dL 70-110 H CREATININE (test code = 3072405824) 0.98 mg/dL 0.50-1.04 CALCIUM (test code = 5294056181) 9.1 mg/dL 8.6-10.6 eGFR (test code = 3405131727) 55.0 mL/min/1.73m2 LOW (test code = LOW) Association of [...] or abnormalities in imaging tests). Lab Interpretation (test code = 68965-8) Abnormal [facility] WITH [id number] 09:20:24* Test Item Value Reference Range Interpretation Comme nts WBC (test code = 6690-2) 8.24 See_Comment [SimpliVity] The system which generated this result transmitted reference range: 4.30 - 11.10 10*3/?L. The reference range was not used to interpret this result as normal/abnormal. RBC (test code = 789-8) 3.60 See_Comment L [SimpliVity] The system which generated this result transmitted reference range: 3.93 - 5.25 10*6/?L. The reference range was not used to interpret this result as normal/abnormal. HGB (test code = 718-7) 9.8 g/dL 11.6-15.0 L HCT (test code = 4544-3) 30.7 % 35.7-45.2 L MCV (test code = 787-2) 85.3 fL 80.6-95.5 MCH (test code = 785-6) 27.2 pg 25.9-32.8 MCHC (test code = 786-4) 31.9 g/dL 31.6-35.1 RDW-SD (test code = 80976-9) 48.3 fL 39.0-49.9 RDW-CV (test code = 788-0) 15.7 % 12.0-15.5 H PLT (test code = 777-3) 248 See_Comment [Automated messa ge] The system which generated this result transmitted reference range: 166 - 358 10*3/?L. The reference range was not used to interpret this result as normal/abnormal. MPV (test code = 88508-9) 9.3 fL 9.5-12.9 L NRBC/100 WBC (test code = 3421800654) 0.0 See_Comment [Automated me ssage] The system which generated this result transmitted reference range: 0.0 - 10.0 /100 WBCs. The reference range was not used to interpret this result as normal/abnormal. NRBC x10^3 (test code = 4419628444) See_Comment [Automated messa ge] The system which generated this result transmitted reference range: 10*3/?L. The reference range was not used to interpret this result as normal/abnormal. GRAN MAT (NEUT) % (test code = 770-8) 62.5 % IMM GRAN % (test code = 5456846804) 0.50 % LYMPH % (test code = 736-9) 21.0 % MONO % (test code = 5905-5) 11.7 % EOS % (test code = 713-8) 3.9 % BASO % (test code = 706-2) 0.4 % GRAN MAT x10^3(ANC) (test code = 8710080474) 5.16 10*3/uL 1.88-7.09 IMM GRAN x10^3 (test code = 0410556729) 0.04 10*3/uL 0.00-0.06 LYMPH x10^3 (test code = 731-0) 1.73 10*3/uL 1.32-3.29 MONO x10^3 (test code = 742-7) 0.96 10*3/uL 0.33-0.92 H EOS x10^3 (test code = 711-2) 0.32 10*3/uL 0.03-0.39 BASO x10^3 (test code = 704-7) 0.03 10*3/uL 0.01-0.07 Lab Interpretation (test code = 84848-7) Abnormal [facility] GLUCOSE (AUTOMATED)2022-11-04 01:26:31* Test Item Value Reference Range Interpretation Comme nts POCT GLU (test code = 0856858773) 284 mg/dL 70-110 H Lab Interpretation (test cod e = 49155-0) Abnormal [facility] GLUCOSE (AUTOMATED)2022-11-03 22:20:13* Test Item Value Reference Range Interpretation Comme nts POCT GLU (test code = 9657727510) 323 mg/dL 70-110 H Lab Interpretation (test cod e = 07652-4) Abnormal [facility] GLUCOSE (AUTOMATED)2022-11-03 16:39:32* Test Item Value Reference Range Interpretation Comme nts POCT GLU (test code = 5691381438) 293 mg/dL 70-110 H Lab Interpretation (test cod e = 65250-7) Abnormal [facility] GLUCOSE (AUTOMATED)2022-11-03 12:47:29* Test Item Value Reference Range Interpretation Comme nts POCT GLU (test code = 1222091072) 220 mg/dL 70-110 H Lab Interpretation (test cod e = 70067-0) Abnormal [facility] GLUCOSE (AUTOMATED)2022-11-03 01:43:07* Test Item Value Reference Range Interpretation Comme nts POCT GLU (test code = 6597828544) 277 mg/dL 70-110 H Lab Interpretation (test cod e = 11276-3) Abnormal [facility] GLUCOSE (AUTOMATED)2022-11-02 21:08:43* Test Item Value Reference Range Interpretation Comme nts POCT GLU (test code = 3102375738) 191 mg/dL 70-110 H Lab Interpretation (test cod e = 45309-3) Abnormal [facility] GLUCOSE (AUTOMATED)2022-11-02 16:08:02* Test Item Value Reference Range Interpretation Comme nts POCT GLU (test code = 6508378433) 235 mg/dL 70-110 H Lab Interpretation (test cod e = 54812-2) Abnormal [facility] GLUCOSE (AUTOMATED)2022-11-02 12:38:18* Test Item Value Reference Range Interpretation Comme nts POCT GLU (test code = 4967212393) 210 mg/dL 70-110 H Lab Interpretation (test cod e = 96648-9) Abnormal [facility] GLUCOSE (AUTOMATED)2022-11-02 01:45:15* Test Item Value Reference Range Interpretation Comme nts POCT GLU (test code = 9010471577) 268 mg/dL 70-110 H Lab Interpretation (test cod e = 20793-5) Abnormal [facility] GLUCOSE (AUTOMATED)2022-11-01 20:58:38* Test Item Value Reference Range Interpretation Comme nts POCT GLU (test code = 4240055410) 264 mg/dL 70-110 H Lab Interpretation (test cod e = 71397-0) Abnormal [facility] GLUCOSE (AUTOMATED)2022-11-01 16:44:08* Test Item Value Reference Range Interpretation Comme nts POCT GLU (test code = 4403992505) 329 mg/dL 70-110 H Lab Interpretation (test cod e = 69542-8) Abnormal [facility] GLUCOSE (AUTOMATED)2022-11-01 12:40:28* Test Item Value Reference Range Interpretation Comme nts POCT GLU (test code = 2311332890) 185 mg/dL 70-110 H Lab Interpretation (test cod e = 71646-2) Abnormal [facility] GLUCOSE (AUTOMATED)2022-11-01 01:53:10* Test Item Value Reference Range Interpretation Comme nts POCT GLU (test code = 5916256463) 274 mg/dL 70-110 H Lab Interpretation (test cod e = 98998-6) Abnormal [facility] GLUCOSE (AUTOMATED)2022-11-01 01:53:10* Test Item Value Reference Range Interpretation Comme nts POCT GLU (test code = 0275129557) 274 mg/dL 70-110 H Lab Interpretation (test cod e = 50708-8) Abnormal [facility] ACT LOW [id number] 21:06:31* Test Item Value Reference Range Interpretation Comme nts ACTLR (test code = 8535335274) 303 See_Comment H [Automated messa ge] The system which generated this result transmitted reference range: 89 - 169 Seconds. The reference range was not used to interpret this result as normal/abnormal. Lab Interpretation (test code = 41564-4) [facility] [id number] 21:06:31* Test Item Value Reference Range Interpretation Comme nts ACTLR (test code = 0165796723) 294 See_Comment H [Automated messa ge] The system which generated this result transmitted reference range: 89 - 169 Seconds. The reference range was not used to interpret this result as normal/abnormal. Lab Interpretation (test code = 66502-5) [facility] [id number] 21:06:31* Test Item Value Reference Range Interpretation Comme nts ACTLR (test code = 1491997800) 274 See_Comment H [Automated messa ge] The system which generated this result transmitted reference range: 89 - 169 Seconds. The reference range was not used to interpret this result as normal/abnormal. Lab Interpretation (test code = 15935-5) Abnormal [facility] ACT LOW [id number] 21:06:31* Test Item Value Reference Range Interpretation Comme nts ACTLR (test code = 9467206933) 303 See_Comment H [Automated messa ge] The system which generated this result transmitted reference range: 89 - 169 Seconds. The reference range was not used to interpret this result as normal/abnormal. Lab Interpretation (test code = 19462-3) [facility] [id number] 21:06:31* Test Item Value Reference Range Interpretation Comme nts ACTLR (test code = 5621215964) 294 See_Comment H [Automated messa ge] The system which generated this result transmitted reference range: 89 - 169 Seconds. The reference range was not used to interpret this result as normal/abnormal. Lab Interpretation (test code = 63727-4) [facility] [id number] 21:06:31* Test Item Value Reference Range Interpretation Comme nts ACTLR (test code = 1018888736) 274 See_Comment H [Automated messa ge] The system which generated this result transmitted reference range: 89 - 169 Seconds. The reference range was not used to interpret this result as normal/abnormal. Lab Interpretation (test code = 91583-6) [facility] [id number] 21:06:26* Test Item Value Reference Range Interpretation Comme nts ACTLR (test code = 0872426528) 283 See_Comment H [Automated messa ge] The system which generated this result transmitted reference range: 89 - 169 Seconds. The reference range was not used to interpret this result as normal/abnormal. Lab Interpretation (test code = 77026-3) Abnormal [facility] ACT LOW [id number] 21:06:26* Test Item Value Reference Range Interpretation Comme nts ACTLR (test code = 5678787242) 269 See_Comment H [Automated messa ge] The system which generated this result transmitted reference range: 89 - 169 Seconds. The reference range was not used to interpret this result as normal/abnormal. Lab Interpretation (test code = 19740-0) Abnormal [facility] ACT LOW [id number] 21:06:26* Test Item Value Reference Range Interpretation Comme nts ACTLR (test code = 1933300799) 283 See_Comment H [Automated messa ge] The system which generated this result transmitted reference range: 89 - 169 Seconds. The reference range was not used to interpret this result as normal/abnormal. Lab Interpretation (test code = 24843-4) Abnormal [facility] ACT LOW [id number] 21:06:26* Test Item Value Reference Range Interpretation Comme nts ACTLR (test code = 5993976499) 269 See_Comment H [Automated messa ge] The system which generated this result transmitted reference range: 89 - 169 Seconds. The reference range was not used to interpret this result as normal/abnormal. Lab Interpretation (test code = 25381-8) Abnormal [facility] GLUCOSE (AUTOMATED)2022-10-31 12:34:49* Test Item Value Reference Range Interpretation Comme nts POCT GLU (test code = 5518058352) 170 mg/dL 70-110 H Lab Interpretation (test cod e = 53153-2) Abnormal [facility] GLUCOSE (AUTOMATED)2022-10-31 12:34:49* Test Item Value Reference Range Interpretation Comme nts POCT GLU (test code = 2669959694) 170 mg/dL 70-110 H Lab Interpretation (test cod e = 97228-9) Abnormal [facility] GLUCOSE (AUTOMATED)2022-10-31 02:14:46* Test Item Value Reference Range Interpretation Comme nts POCT GLU (test code = 6339674842) 166 mg/dL 70-110 H Lab Interpretation (test cod e = 19702-1) Abnormal [facility] GLUCOSE (AUTOMATED)2022-10-31 02:14:46* Test Item Value Reference Range Interpretation Comme nts POCT GLU (test code = 9213054055) 166 mg/dL 70-110 H Lab Interpretation (test cod e = 49503-7) [facility]30 23:39:20* Test Item Value Reference Range Interpretation Comme nts APTT Patient (test code = 3173-2) 88 See_Comment H [Automated messa ge] The system which generated this result transmitted reference range: 26 - 36 Seconds. The reference range was not used to interpret this result as normal/abnormal. Lab Interpretation (test code = 50261-7) [facility]30 23:39:20* Test Item Value Reference Range Interpretation Comme nts APTT Patient (test code = 3173-2) 88 See_Comment H [Automated messa ge] The system which generated this result transmitted reference range: 26 - 36 Seconds. The reference range was not used to interpret this result as normal/abnormal. Lab Interpretation (test code = 86248-9) Abnormal [facility] GLUCOSE (AUTOMATED)2022-10-30 21:50:55* Test Item Value Reference Range Interpretation Comme nts POCT GLU (test code = 0160897598) 180 mg/dL 70-110 H Lab Interpretation (test cod e = 06388-5) Abnormal [facility] GLUCOSE (AUTOMATED)2022-10-30 21:50:55* Test Item Value Reference Range Interpretation Comme nts POCT GLU (test code = 2348989677) 180 mg/dL 70-110 H Lab Interpretation (test cod e = 73625-9) [facility]2022-10-30 19:48:00* Test Item Value Reference Range Interpretation Comme nts ABO & RH (test code = 20) A [facility] Only[facility]2022-10-30 19:48:00* Test Item Value Reference Range Interpretation Comme nts ABO & RH (test code = 20) [facility] [id number] 18:48:00* Test Item Value Reference Range Interpretation Comme nts ABO & RH (test code = 20) A Positive IAT (test code = 1185) Negative [facility] [id number] 18:48:00* Test Item Value Reference Range Interpretation Comme nts ABO & RH (test code = 20) A Positive IAT (test code = 1185) Negative [facility]2022-[facility]30 17:07:23* Test Item Value Reference Range Interpretation Comme nts POCT GLU (test code = 5524698863) 325 mg/dL 70-110 H Lab Interpretation (test cod e = 17118-5) [facility] 17:07:23* Test Item Value Reference Range Interpretation Comme nts POCT GLU (test code = 3885884217) 325 mg/dL 70-110 H Lab Interpretation (test cod e = 77960-7) [facility] Heparin Drip[facility]2022-10-30 14:54:43* Test Item Value Reference Range Interpretation Comme nts APTT Patient (test code = 3173-2) 41 See_Comment H [Automated messa ge] The system which generated this result transmitted reference range: 26 - 36 Seconds. The reference range was not used to interpret this result as normal/abnormal. Lab Interpretation (test code = 33283-2) [facility]normal [facility] use with Heparin Drip[facility]2022-10-30 14:54:43* Test Item Value Reference Range Interpretation Comme nts APTT Patient (test code = 3173-2) 41 See_Comment H [Automated messa ge] The system which generated this result transmitted reference range: 26 - 36 Seconds. The reference range was not used to interpret this result as normal/abnormal. Lab Interpretation (test code = 01309-5) [facility]30 13:36:28* Test Item Value Reference Range Interpretation Comme [facility] POCT GLU (test code = 3021017404) 240 mg/dL 70-110 H Lab Interpretation (test cod e = 24579-2) [facility]2022-10-30 13:36:28* Test Item Value Reference Range Interpretation Comme [facility] POCT GLU (test code = 9803184788) 240 mg/dL 70-110 H Lab Interpretation (test cod e = 36511-3) Abnormal [facility] METABOLIC PANEL (NA, K, CL, CO2, GLUCOSE, BUN, CREATININE, CA)2022-10-30 10:16:01* Test Item Value Reference Range Interpretation Comme [facility] NA (test code = 2008066778) 132 mmol/L 135-145 L K (test code = 1432456683) 3.9 mmol/L 3.5-5.0 CL (test code = 6538752674) 93 mmol/L 98-108 L CO2 TOTAL (test code = 2258751369) 39 mmol/L 23-31 H AGAP (test code = 2728705109) 2-16 L BUN (test code = 9811444980) 25 mg/dL 7-23 H GLUCOSE (test code = 0269117894) 236 mg/dL 70-110 H CREATININE (test code = 3757223148) 0.78 mg/dL 0.50-1.04 CALCIUM (test code = 4189192479) 9.2 mg/dL 8.6-10.6 eGFR (test code = 9446517674) 71.6 mL/min/1.73m2 LOW (test code = LOW) Association of [...] or abnormalities in imaging tests). Lab Interpretation (test code = 05678-8) Abnormal [facility] METABOLIC PANEL (NA, K, CL, CO2, GLUCOSE, BUN, CREATININE, CA)2022-10-30 10:16:01* Test Item Value Reference Range Interpretation Comme nts NA (test code = 7965370118) 132 mmol/L 135-145 L K (test code = 4739049830) 3.9 mmol/L 3.5-5.0 CL (test code = 2248374632) 93 mmol/L 98-108 L CO2 TOTAL (test code = 7563568872) 39 mmol/L 23-31 H AGAP (test code = 9346793593) 2-16 L BUN (test code = 1706869398) 25 mg/dL 7-23 H GLUCOSE (test code = 8296804375) 236 mg/dL 70-110 H CREATININE (test code = 4864033633) 0.78 mg/dL 0.50-1.04 CALCIUM (test code = 1565790365) 9.2 mg/dL 8.6-10.6 eGFR (test code = 8429618154) 71.6 mL/min/1.73m2 LOW (test code = LOW) Association of [...] or abnormalities in imaging tests). Lab Interpretation (test code = 84774-0) Abnormal [facility] WITH [id number] 10:02:20* Test Item Value Reference Range Interpretation Comme nts WBC (test code = 6690-2) 9.92 See_Comment [Simpli[employer]ity] The system which generated this result transmitted reference range: 4.30 - 11.10 10*3/?L. The reference range was not used to interpret this result as normal/abnormal. RBC (test code = 789-8) 3.93 See_Comment [Sim[employer]ity] The system which generated this result transmitted reference range: 3.93 - 5.25 10*6/?L. The reference range was not used to interpret this result as normal/abnormal. HGB (test code = 718-7) 10.8 g/dL 11.6-15.0 L HCT (test code = 4544-3) 34.4 % 35.7-45.2 L MCV (test code = 787-2) 87.5 fL 80.6-95.5 MCH (test code = 785-6) 27.5 pg 25.9-32.8 MCHC (test code = 786-4) 31.4 g/dL 31.6-35.1 L RDW-SD (test code = 80175-1) 50.5 fL 39.0-49.9 H RDW-CV (test code = 788-0) 15.7 % 12.0-15.5 H PLT (test code = 777-3) 269 See_Comment [Automated messa ge] The system which generated this result transmitted reference range: 166 - 358 10*3/?L. The reference range was not used to interpret this result as normal/abnormal. MPV (test code = 89511-3) 9.4 fL 9.5-12.9 L NRBC/100 WBC (test code = 4268521490) 0.0 See_Comment [Automated [employer] ssage] The system which generated this result transmitted reference range: 0.0 - 10.0 /100 WBCs. The reference range was not used to interpret this result as normal/abnormal. NRBC x10^3 (test code = 4110646377) See_Comment [Automated messa ge] The system which generated this result transmitted reference range: 10*3/?L. The reference range was not used to interpret this result as normal/abnormal. GRAN MAT (NEUT) % (test code = 770-8) 67.0 % IMM GRAN % (test code = 9005613883) 0.40 % LYMPH % (test code = 736-9) 19.3 % MONO % (test code = 5905-5) 10.1 % EOS % (test code = 713-8) 3.0 % BASO % (test code = 706-2) 0.2 % GRAN MAT x10^3(ANC) (test code = 5553442056) 6.65 10*3/uL 1.88-7.09 IMM GRAN x10^3 (test code = 8166888852) 0.04 10*3/uL 0.00-0.06 LYMPH x10^3 (test code = 731-0) 1.91 10*3/uL 1.32-3.29 MONO x10^3 (test code = 742-7) 1.00 10*3/uL 0.33-0.92 H EOS x10^3 (test code = 711-2) 0.30 10*3/uL 0.03-0.39 BASO x10^3 (test code = 704-7) 0.01-0.07 Lab Interpretation (test code = 72887-1) Abnormal [facility] WITH [id number] 10:02:20* Test Item Value Reference Range Interpretation Comme nts WBC (test code = 6690-2) 9.92 See_Comment [Automated messa ge] The system which generated this result transmitted reference range: 4.30 - 11.10 10*3/?L. The reference range was not used to interpret this result as normal/abnormal. RBC (test code = 789-8) 3.93 See_Comment [Automated messa ge] The system which generated this result transmitted reference range: 3.93 - 5.25 10*6/?L. The reference range was not used to interpret this result as normal/abnormal. HGB (test code = 718-7) 10.8 g/dL 11.6-15.0 L HCT (test code = 4544-3) 34.4 % 35.7-45.2 L MCV (test code = 787-2) 87.5 fL 80.6-95.5 MCH (test code = 785-6) 27.5 pg 25.9-32.8 MCHC (test code = 786-4) 31.4 g/dL 31.6-35.1 L RDW-SD (test code = 84944-6) 50.5 fL 39.0-49.9 H RDW-CV (test code = 788-0) 15.7 % 12.0-15.5 H PLT (test code = 777-3) 269 See_Comment [Automated messa ge] The system which generated this result transmitted reference range: 166 - 358 10*3/?L. The reference range was not used to interpret this result as normal/abnormal. MPV (test code = 01095-2) 9.4 fL 9.5-12.9 L NRBC/100 WBC (test code = 2364265873) 0.0 See_Comment [Automated me ssage] The system which generated this result transmitted reference range: 0.0 - 10.0 /100 WBCs. The reference range was not used to interpret this result as normal/abnormal. NRBC x10^3 (test code = 9079772947) See_Comment [Automated messa ge] The system which generated this result transmitted reference range: 10*3/?L. The reference range was not used to interpret this result as normal/abnormal. GRAN MAT (NEUT) % (test code = 770-8) 67.0 % IMM GRAN % (test code = 1344490676) 0.40 % LYMPH % (test code = 736-9) 19.3 % MONO % (test code = 5905-5) 10.1 % EOS % (test code = 713-8) 3.0 % BASO % (test code = 706-2) 0.2 % GRAN MAT x10^3(ANC) (test code = 1613690330) 6.65 10*3/uL 1.88-7.09 IMM GRAN x10^3 (test code = 5445954962) 0.04 10*3/uL 0.00-0.06 LYMPH x10^3 (test code = 731-0) 1.91 10*3/uL 1.32-3.29 MONO x10^3 (test code = 742-7) 1.00 10*3/uL 0.33-0.92 H EOS x10^3 (test code = 711-2) 0.30 10*3/uL 0.03-0.39 BASO x10^3 (test code = 704-7) 0.01-0.07 Lab Interpretation (test code = 19905-7) Abnormal [facility] GLUCOSE (AUTOMATED)2022-10-30 01:09:15* Test Item Value Reference Range Interpretation Comme [facility] POCT GLU (test code = 4344396033) 166 mg/dL 70-110 H Lab Interpretation (test cod e = 60127-5) Abnormal [facility] GLUCOSE (AUTOMATED)2022-10-30 01:09:15* Test Item Value Reference Range Interpretation Comme nts POCT GLU (test code = 8660798655) 166 mg/dL 70-110 H Lab Interpretation (test cod e = 23673-3) [facility] 00:55:01* Test Item Value Reference Range Interpretation Comme nts APTT Patient (test code = 3173-2) 60 See_Comment H [Automated messa ge] The system which generated this result transmitted reference range: 26 - 36 Seconds. The reference range was not used to interpret this result as normal/abnormal. Lab Interpretation (test code = 95614-2) [facility]22[facility]30 00:55:01* Test Item Value Reference Range Interpretation Comme nts APTT Patient (test code = 3173-2) 60 See_Comment H [Automated messa ge] The system which generated this result transmitted reference range: 26 - 36 Seconds. The reference range was not used to interpret this result as normal/abnormal. Lab Interpretation (test code = 83025-2) Abnormal [facility] GLUCOSE (AUTOMATED)2022-10-29 22:04:12* Test Item Value Reference Range Interpretation Comme nts POCT GLU (test code = 5705841123) 204 mg/dL 70-110 H Lab Interpretation (test cod e = 44975-7) Abnormal [facility] GLUCOSE (AUTOMATED)2022-10-29 22:04:12* Test Item Value Reference Range Interpretation Comme nts POCT GLU (test code = 3944157749) 204 mg/dL 70-110 H Lab Interpretation (test cod e = 42044-4) Abnormal [facility] (for use with Heparin Drip)2022-10-29 17:21:28* Test Item Value Reference Range Interpretation Comme nts APTT Patient (test code = 3173-2) 46 See_Comment H [Automated messa ge] The system which generated this result transmitted reference range: 26 - 36 Seconds. The reference range was not used to interpret this result as normal/abnormal. Lab Interpretation (test code = 79870-1) [facility]2022-[facility]-29 17:21:28* Test Item Value Reference Range Interpretation Comme nts APTT Patient (test code = 3173-2) 46 See_Comment H [Automated messa ge] The system which generated this result transmitted reference range: 26 - 36 Seconds. The reference range was not used to interpret this result as normal/abnormal. Lab Interpretation (test code = 06312-3) Abnormal [facility] GLUCOSE (AUTOMATED)2022-10-29 16:42:16* Test Item Value Reference Range Interpretation Comme nts POCT GLU (test code = 1672326321) 216 mg/dL 70-110 H Lab Interpretation (test cod e = 03925-0) Abnormal [facility] GLUCOSE (AUTOMATED)2022-10-29 16:42:16* Test Item Value Reference Range Interpretation Comme nts POCT GLU (test code = 4449279467) 216 mg/dL 70-110 H Lab Interpretation (test cod e = 54261-7) Abnormal [facility] GLUCOSE (AUTOMATED)2022-10-29 13:05:32* Test Item Value Reference Range Interpretation Comme nts POCT GLU (test code = 4950297934) 218 mg/dL 70-110 H Lab Interpretation (test cod e = 14784-4) Abnormal [facility] GLUCOSE (AUTOMATED)2022-10-29 13:05:32* Test Item Value Reference Range Interpretation Comme nts POCT GLU (test code = 0399060778) 218 mg/dL 70-110 H Lab Interpretation (test cod e = 50462-4) [facility] [id number] 05:13:07* Test Item Value Reference Range Interpretation Comme nts APTT Patient (test code = 3173-2) 79 See_Comment H [Automated messa ge] The system which generated this result transmitted reference range: 26 - 36 Seconds. The reference range was not used to interpret this result as normal/abnormal. Lab Interpretation (test code = 59410-8) [facility] [id number] 05:13:07* Test Item Value Reference Range Interpretation Comme nts APTT Patient (test code = 3173-2) 79 See_Comment H [Automated messa ge] The system which generated this result transmitted reference range: 26 - 36 Seconds. The reference range was not used to interpret this result as normal/abnormal. Lab Interpretation (test code = 41259-3) Abnormal [facility] GLUCOSE (AUTOMATED)2022-10-29 01:37:17* Test Item Value Reference Range Interpretation Comme nts POCT GLU (test code = 0045037221) 162 mg/dL 70-110 H Lab Interpretation (test cod e = 14771-4) Abnormal [facility] GLUCOSE (AUTOMATED)2022-10-29 01:37:17* Test Item Value Reference Range Interpretation Comme nts POCT GLU (test code = 2843778107) 162 mg/dL 70-110 H Lab Interpretation (test cod e = 14641-4) Abnormal [facility] GLUCOSE (AUTOMATED)2022-10-29 01:37:17* Test Item Value Reference Range Interpretation Comme nts POCT GLU (test code = 6503200966) 162 mg/dL 70-110 H Lab Interpretation (test cod e = 75113-5) Abnormal [facility] GLUCOSE (AUTOMATED)2022-10-28 22:17:08* Test Item Value Reference Range Interpretation Comme nts POCT GLU (test code = 3691042733) 183 mg/dL 70-110 H Lab Interpretation (test cod e = 76247-5) Abnormal [facility] GLUCOSE (AUTOMATED)2022-10-28 22:17:08* Test Item Value Reference Range Interpretation Comme nts POCT GLU (test code = 3398393668) 183 mg/dL 70-110 H Lab Interpretation (test cod e = 14877-2) Abnormal [facility] GLUCOSE (AUTOMATED)2022-10-28 22:17:08* Test Item Value Reference Range Interpretation Comme nts POCT GLU (test code = 7183170402) 183 mg/dL 70-110 H Lab Interpretation (test cod e = 24091-4) Abnormal [facility] ACT LOW [id number] 19:02:30* Test Item Value Reference Range Interpretation Comme nts ACTLR (test code = 0358328508) 201 See_Comment H [Automated messa ge] The system which generated this result transmitted reference range: 89 - 169 Seconds. The reference range was not used to interpret this result as normal/abnormal. Lab Interpretation (test code = 22275-3) Abnormal [facility] ACT LOW [id number] 19:02:30* Test Item Value Reference Range Interpretation Comme nts ACTLR (test code = 9765257640) 201 See_Comment H [Automated messa ge] The system which generated this result transmitted reference range: 89 - 169 Seconds. The reference range was not used to interpret this result as normal/abnormal. Lab Interpretation (test code = 02690-3) Abnormal [facility] ACT LOW [id number] 19:02:30* Test Item Value Reference Range Interpretation Comme nts ACTLR (test code = 8470937828) 201 See_Comment H [Automated messa ge] The system which generated this result transmitted reference range: 89 - 169 Seconds. The reference range was not used to interpret this result as normal/abnormal. Lab Interpretation (test code = 89082-1) Abnormal [facility] GLUCOSE (AUTOMATED)2022-10-28 01:14:18* Test Item Value Reference Range Interpretation Comme nts POCT GLU (test code = 0286567187) 165 mg/dL 70-110 H Lab Interpretation (test cod e = 28181-0) Abnormal [facility] GLUCOSE (AUTOMATED)2022-10-28 01:14:18* Test Item Value Reference Range Interpretation Comme nts POCT GLU (test code = 3100735828) 165 mg/dL 70-110 H Lab Interpretation (test cod e = 06322-3) Abnormal [facility] GLUCOSE (AUTOMATED)2022-10-28 01:14:18* Test Item Value Reference Range Interpretation Comme nts POCT GLU (test code = 3218236862) 165 mg/dL 70-110 H Lab Interpretation (test cod e = 40839-6) Abnormal [facility] GLUCOSE (AUTOMATED)2022-10-27 22:59:53* Test Item Value Reference Range Interpretation Comme nts POCT GLU (test code = 2608936390) 222 mg/dL 70-110 H Lab Interpretation (test cod e = 40398-0) Abnormal [facility] GLUCOSE (AUTOMATED)2022-10-27 22:59:53* Test Item Value Reference Range Interpretation Comme nts POCT GLU (test code = 4244051515) 222 mg/dL 70-110 H Lab Interpretation (test cod e = 12531-8) Abnormal [facility] GLUCOSE (AUTOMATED)2022-10-27 22:59:53* Test Item Value Reference Range Interpretation Comme nts POCT GLU (test code = 5096736701) 222 mg/dL 70-110 H Lab Interpretation (test cod e = 39498-4) Abnormal [facility] GLUCOSE (AUTOMATED)2022-10-27 21:51:22* Test Item Value Reference Range Interpretation Comme nts POCT GLU (test code = 1809269518) 230 mg/dL 70-110 H Lab Interpretation (test cod e = 24580-2) Abnormal [facility] GLUCOSE (AUTOMATED)2022-10-27 21:51:22* Test Item Value Reference Range Interpretation Comme nts POCT GLU (test code = 1199005480) 230 mg/dL 70-110 H Lab Interpretation (test cod e = 62362-3) Abnormal [facility] GLUCOSE (AUTOMATED)2022-10-27 21:51:22* Test Item Value Reference Range Interpretation Comme nts POCT GLU (test code = 4919110774) 230 mg/dL 70-110 H Lab Interpretation (test cod e = 54263-3) [facility] 18:21:08* Test Item Value Reference Range Interpretation Comme nts APTT Patient (test code = 3173-2) 36 See_Comment [Automated messa ge] The system which generated this result transmitted reference range: 26 - 36 Seconds. The reference range was not used to interpret this result as normal/abnormal. Lab Interpretation (test code = 89479-1) Normal [facility] 18:21:08* Test Item Value Reference Range Interpretation Comme nts APTT Patient (test code = 3173-2) 36 See_Comment [Automated messa ge] The system which generated this result transmitted reference range: 26 - 36 Seconds. The reference range was not used to interpret this result as normal/abnormal. Lab Interpretation (test code = 81492-9) [facility]27 18:21:08* Test Item Value Reference Range Interpretation Comme nts APTT Patient (test code = 3173-2) 36 See_Comment [Automated messa ge] The system which generated this result transmitted reference range: 26 - 36 Seconds. The reference range was not used to interpret this result as normal/abnormal. Lab Interpretation (test code = 36857-9) Normal [facility] GLUCOSE (AUTOMATED)2022-10-27 17:46:56* Test Item Value Reference Range Interpretation Comme nts POCT GLU (test code = 9813261406) 286 mg/dL 70-110 H Lab Interpretation (test cod e = 63731-1) Abnormal [facility] GLUCOSE (AUTOMATED)2022-10-27 17:46:56* Test Item Value Reference Range Interpretation Comme nts POCT GLU (test code = 8110121662) 286 mg/dL 70-110 H Lab Interpretation (test cod e = 83976-2) Abnormal [facility] GLUCOSE (AUTOMATED)2022-10-27 17:46:56* Test Item Value Reference Range Interpretation Comme nts POCT GLU (test code = 9184020589) 286 mg/dL 70-110 H Lab Interpretation (test cod e = 00178-9) Abnormal [facility] [id number] 15:38:10* Test Item Value Reference Range Interpretation Comme nts TROPONIN I (test code = 2169454170) 0.019 ng/mL <=0.034 LOW (test code = LOW) Reference (Normal) [...] patient's use of biotin. Lab Interpretation (test code = 91744-3) Normal [facility] [id number] 15:38:10* Test Item Value Reference Range Interpretation Comme nts TROPONIN I (test code = 3587765747) 0.019 ng/mL <=0.034 LOW (test code = LOW) Reference (Normal) [...] patient's use of biotin. Lab Interpretation (test code = 69654-9) [facility] [id number] 15:38:10* Test Item Value Reference Range Interpretation Comme nts TROPONIN I (test code = 9405027873) 0.019 ng/mL <=0.034 LOW (test code = LOW) Reference (Normal) [...] patient's use of biotin. Lab Interpretation (test code = 54490-7) Normal [facility] GLUCOSE (AUTOMATED)2022-10-27 13:48:21* Test Item Value Reference Range Interpretation Comme nts POCT GLU (test code = 7896752595) 171 mg/dL 70-110 H Lab Interpretation (test cod e = 99599-3) Abnormal [facility] GLUCOSE (AUTOMATED)2022-10-27 13:48:21* Test Item Value Reference Range Interpretation Comme nts POCT GLU (test code = 0378700790) 171 mg/dL 70-110 H Lab Interpretation (test cod e = 94285-4) Abnormal [facility] GLUCOSE (AUTOMATED)2022-10-27 13:48:21* Test Item Value Reference Range Interpretation Comme nts POCT GLU (test code = 3398867603) 171 mg/dL 70-110 H Lab Interpretation (test cod e = 97471-9) Abnormal [facility] METABOLIC PANEL (NA, K, CL, CO2, GLUCOSE, BUN, CREATININE, CA)2022-10-27 10:01:02* Test Item Value Reference Range Interpretation Comme nts NA (test code = 6579348731) 136 mmol/L 135-145 K (test code = 7914858767) 3.7 mmol/L 3.5-5.0 CL (test code = 7772573701) 98 mmol/L 98-108 CO2 TOTAL (test code = 0417565268) 35 mmol/L 23-31 H AGAP (test code = 7144291629) 3 2-16 BUN (test code = 6638893688) 14 mg/dL 7-23 GLUCOSE (test code = 6549922876) 154 mg/dL 70-110 H CREATININE (test code = 3912091284) 0.54 mg/dL 0.50-1.04 CALCIUM (test code = 6136790588) 8.7 mg/dL 8.6-10.6 eGFR (test code = 8675416874) 109.5 mL/min/1.73m2 LOW (test code = LOW) Association of [...] or abnormalities in imaging tests). Lab Interpretation (test code = 64386-4) [facility]:01:[facility]* Test Item Value Reference Range Interpretation Comme nts MAGNESIUM (test code = 1193042330) 1.8 mg/dL 1.7-2.4 Lab Interpretation (test cod e = 10565-7) [facility] (NA, K, CL, CO2, GLUCOSE, BUN, CREATININE, CA)2022-10-27 10:01:02* Test Item Value Reference Range Interpretation Comme nts NA (test code = 6200124045) 136 mmol/L 135-145 K (test code = 1604008212) 3.7 mmol/L 3.5-5.0 CL (test code = 3340043568) 98 mmol/L 98-108 CO2 TOTAL (test code = 6926797320) 35 mmol/L 23-31 H AGAP (test code = 9752402387) 3 2-16 BUN (test code = 6855816327) 14 mg/dL 7-23 GLUCOSE (test code = 0759719625) 154 mg/dL 70-110 H CREATININE (test code = 2297201434) 0.54 mg/dL 0.50-1.04 CALCIUM (test code = 1654453174) 8.7 mg/dL 8.6-10.6 eGFR (test code = 3216150909) 109.5 mL/min/1.73m2 LOW (test code = LOW) Association of [...] or abnormalities in imaging tests). Lab Interpretation (test code = 11086-5) [facility] 10:01:02* Test Item Value Reference Range Interpretation Comme nts MAGNESIUM (test code = 4748456693) 1.8 mg/dL 1.7-2.4 Lab Interpretation (test cod e = 71837-5) [facility] (NA, K, CL, CO2, GLUCOSE, BUN, CREATININE, CA)2022-10-27 10:01:02* Test Item Value Reference Range Interpretation Comme nts NA (test code = 7436219448) 136 mmol/L 135-145 K (test code = 7917924439) 3.7 mmol/L 3.5-5.0 CL (test code = 9039594005) 98 mmol/L 98-108 CO2 TOTAL (test code = 8259362567) 35 mmol/L 23-31 H AGAP (test code = 7319246282) 3 2-16 BUN (test code = 0938932609) 14 mg/dL 7-23 GLUCOSE (test code = 9700685769) 154 mg/dL 70-110 H CREATININE (test code = 5667755425) 0.54 mg/dL 0.50-1.04 CALCIUM (test code = 1059120961) 8.7 mg/dL 8.6-10.6 eGFR (test code = 5753633346) 109.5 mL/min/1.73m2 LOW (test code = LOW) Association of [...] or abnormalities in imaging tests). Lab Interpretation (test code = 97986-6) [facility] 10:01:02* Test Item Value Reference Range Interpretation Comme nts MAGNESIUM (test code = 8931709079) 1.8 mg/dL 1.7-2.4 Lab Interpretation (test cod e = 80325-2) Normal [facility] WITH [id number] 09:40:42* Test Item Value Reference Range Interpretation Comme nts WBC (test code = 6690-2) 7.06 See_Comment [Automated messa [employer]] The system which generated this result transmitted reference range: 4.30 - 11.10 10*3/?L. The reference range was not used to interpret this result as normal/abnormal. RBC (test code = 789-8) 3.83 See_Comment L [Automated messa ge] The system which generated this result transmitted reference range: 3.93 - 5.25 10*6/?L. The reference range was not used to interpret this result as normal/abnormal. HGB (test code = 718-7) 10.4 g/dL 11.6-15.0 L HCT (test code = 4544-3) 34.1 % 35.7-45.2 L MCV (test code = 787-2) 89.0 fL 80.6-95.5 MCH (test code = 785-6) 27.2 pg 25.9-32.8 MCHC (test code = 786-4) 30.5 g/dL 31.6-35.1 L RDW-SD (test code = 38440-4) 53.0 fL 39.0-49.9 H RDW-CV (test code = 788-0) 16.3 % 12.0-15.5 H PLT (test code = 777-3) 277 See_Comment [Automated messa ge] The system which generated this result transmitted reference range: 166 - 358 10*3/?L. The reference range was not used to interpret this result as normal/abnormal. MPV (test code = 24323-3) 9.6 fL 9.5-12.9 NRBC/100 WBC (test code = 1997858926) 0.0 See_Comment [Automated me ssage] The system which generated this result transmitted reference range: 0.0 - 10.0 /100 WBCs. The reference range was not used to interpret this result as normal/abnormal. NRBC x10^3 (test code = 1797490475) See_Comment [Automated messa ge] The system which generated this result transmitted reference range: 10*3/?L. The reference range was not used to interpret this result as normal/abnormal. GRAN MAT (NEUT) % (test code = 770-8) 56.5 % IMM GRAN % (test code = 0702592274) 0.10 % LYMPH % (test code = 736-9) 29.5 % MONO % (test code = 5905-5) 10.8 % EOS % (test code = 713-8) 2.7 % BASO % (test code = 706-2) 0.4 % GRAN MAT x10^3(ANC) (test code = 8676680928) 3.99 10*3/uL 1.88-7.09 IMM GRAN x10^3 (test code = 4949339438) 0.00-0.06 LYMPH x10^3 (test code = 731-0) 2.08 10*3/uL 1.32-3.29 MONO x10^3 (test code = 742-7) 0.76 10*3/uL 0.33-0.92 EOS x10^3 (test code = 711-2) 0.19 10*3/uL 0.03-0.39 BASO x10^3 (test code = 704-7) 0.03 10*3/uL 0.01-0.07 Lab Interpretation (test code = 52885-4) Abnormal [facility] WITH [id number] 09:40:42* Test Item Value Reference Range Interpretation Comme nts WBC (test code = 6690-2) 7.06 See_Comment [Automated messa ge] The system which generated this result transmitted reference range: 4.30 - 11.10 10*3/?L. The reference range was not used to interpret this result as normal/abnormal. RBC (test code = 789-8) 3.83 See_Comment L [Automated messa ge] The system which generated this result transmitted reference range: 3.93 - 5.25 10*6/?L. The reference range was not used to interpret this result as normal/abnormal. HGB (test code = 718-7) 10.4 g/dL 11.6-15.0 L HCT (test code = 4544-3) 34.1 % 35.7-45.2 L MCV (test code = 787-2) 89.0 fL 80.6-95.5 MCH (test code = 785-6) 27.2 pg 25.9-32.8 MCHC (test code = 786-4) 30.5 g/dL 31.6-35.1 L RDW-SD (test code = 44286-7) 53.0 fL 39.0-49.9 H RDW-CV (test code = 788-0) 16.3 % 12.0-15.5 H PLT (test code = 777-3) 277 See_Comment [Automated messa ge] The system which generated this result transmitted reference range: 166 - 358 10*3/?L. The reference range was not used to interpret this result as normal/abnormal. MPV (test code = 64390-4) 9.6 fL 9.5-12.9 NRBC/100 WBC (test code = 6613498342) 0.0 See_Comment [Automated me ssage] The system which generated this result transmitted reference range: 0.0 - 10.0 /100 WBCs. The reference range was not used to interpret this result as normal/abnormal. NRBC x10^3 (test code = 9152727704) See_Comment [Automated messa ge] The system which generated this result transmitted reference range: 10*3/?L. The reference range was not used to interpret this result as normal/abnormal. GRAN MAT (NEUT) % (test code = 770-8) 56.5 % IMM GRAN % (test code = 0836914216) 0.10 % LYMPH % (test code = 736-9) 29.5 % MONO % (test code = 5905-5) 10.8 % EOS % (test code = 713-8) 2.7 % BASO % (test code = 706-2) 0.4 % GRAN MAT x10^3(ANC) (test code = 0355661700) 3.99 10*3/uL 1.88-7.09 IMM GRAN x10^3 (test code = 2301161712) 0.00-0.06 LYMPH x10^3 (test code = 731-0) 2.08 10*3/uL 1.32-3.29 MONO x10^3 (test code = 742-7) 0.76 10*3/uL 0.33-0.92 EOS x10^3 (test code = 711-2) 0.19 10*3/uL 0.03-0.39 BASO x10^3 (test code = 704-7) 0.03 10*3/uL 0.01-0.07 Lab Interpretation (test code = 67825-1) Abnormal [facility] WITH [id number] 09:40:42* Test Item Value Reference Range Interpretation Comme nts WBC (test code = 6690-2) 7.06 See_Comment [Automated messa ge] The system which generated this result transmitted reference range: 4.30 - 11.10 10*3/?L. The reference range was not used to interpret this result as normal/abnormal. RBC (test code = 789-8) 3.83 See_Comment L [Automated messa ge] The system which generated this result transmitted reference range: 3.93 - 5.25 10*6/?L. The reference range was not used to interpret this result as normal/abnormal. HGB (test code = 718-7) 10.4 g/dL 11.6-15.0 L HCT (test code = 4544-3) 34.1 % 35.7-45.2 L MCV (test code = 787-2) 89.0 fL 80.6-95.5 MCH (test code = 785-6) 27.2 pg 25.9-32.8 MCHC (test code = 786-4) 30.5 g/dL 31.6-35.1 L RDW-SD (test code = 00899-5) 53.0 fL 39.0-49.9 H RDW-CV (test code = 788-0) 16.3 % 12.0-15.5 H PLT (test code = 777-3) 277 See_Comment [Automated messa ge] The system which generated this result transmitted reference range: 166 - 358 10*3/?L. The reference range was not used to interpret this result as normal/abnormal. MPV (test code = 93345-7) 9.6 fL 9.5-12.9 NRBC/100 WBC (test code = 6257596918) 0.0 See_Comment [Automated me ssage] The system which generated this result transmitted reference range: 0.0 - 10.0 /100 WBCs. The reference range was not used to interpret this result as normal/abnormal. NRBC x10^3 (test code = 8755104245) See_Comment [Automated messa ge] The system which generated this result transmitted reference range: 10*3/?L. The reference range was not used to interpret this result as normal/abnormal. GRAN MAT (NEUT) % (test code = 770-8) 56.5 % IMM GRAN % (test code = 7943845726) 0.10 % LYMPH % (test code = 736-9) 29.5 % MONO % (test code = 5905-5) 10.8 % EOS % (test code = 713-8) 2.7 % BASO % (test code = 706-2) 0.4 % GRAN MAT x10^3(ANC) (test code = 9520301788) 3.99 10*3/uL 1.88-7.09 IMM GRAN x10^3 (test code = 5249769389) 0.00-0.06 LYMPH x10^3 (test code = 731-0) 2.08 10*3/uL 1.32-3.29 MONO x10^3 (test code = 742-7) 0.76 10*3/uL 0.33-0.92 EOS x10^3 (test code = 711-2) 0.19 10*3/uL 0.03-0.39 BASO x10^3 (test code = 704-7) 0.03 10*3/uL 0.01-0.07 Lab Interpretation (test code = 98383-7) Abnormal [facility] GLUCOSE (AUTOMATED)2022-10-27 02:04:42* Test Item Value Reference Range Interpretation Comme nts POCT GLU (test code = 1462293343) 197 mg/dL 70-110 H Lab Interpretation (test cod e = 47123-1) Abnormal [facility] GLUCOSE (AUTOMATED)2022-10-27 02:04:42* Test Item Value Reference Range Interpretation Comme nts POCT GLU (test code = 6651702945) 197 mg/dL 70-110 H Lab Interpretation (test cod e = 43187-9) Abnormal [facility] GLUCOSE (AUTOMATED)2022-10-27 02:04:42* Test Item Value Reference Range Interpretation Comme nts POCT GLU (test code = 7305735898) 197 mg/dL 70-110 H Lab Interpretation (test cod e = 15657-5) Abnormal [facility] METABOLIC PANEL (NA, K, CL, CO2, GLUCOSE, BUN, CREATININE, CA)2022-10-26 22:22:34* Test Item Value Reference Range Interpretation Comme nts NA (test code = 7807231730) 136 mmol/L 135-145 K (test code = 1297396483) 3.8 mmol/L 3.5-5.0 CL (test code = 3838146857) 98 mmol/L 98-108 CO2 TOTAL (test code = 0725888497) 32 mmol/L 23-31 H AGAP (test code = 4899901303) 6 2-16 BUN (test code = 4898611430) 12 mg/dL 7-23 GLUCOSE (test code = 0070311170) 174 mg/dL 70-110 H CREATININE (test code = 9425120573) 0.52 mg/dL 0.50-1.04 CALCIUM (test code = 0396745102) 8.7 mg/dL 8.6-10.6 eGFR (test code = 2969088261) 114.3 mL/min/1.73m2 LOW (test code = LOW) Association of [...] or abnormalities in imaging tests). Lab Interpretation (test code = 11227-9) [facility]* Test Item Value Reference Range Interpretation Comme nts MAGNESIUM (test code = 0366420741) 1.5 mg/dL 1.7-2.4 L Lab Interpretation (test cod e = 96325-2) Abnormal [facility] METABOLIC PANEL (NA, K, CL, CO2, GLUCOSE, BUN, CREATININE, CA)2022-10-26 22:22:34* Test Item Value Reference Range Interpretation Comme nts NA (test code = 4478030476) 136 mmol/L 135-145 K (test code = 2084053283) 3.8 mmol/L 3.5-5.0 CL (test code = 4217858850) 98 mmol/L 98-108 CO2 TOTAL (test code = 6753901766) 32 mmol/L 23-31 H AGAP (test code = 4097935364) 6 2-16 BUN (test code = 9034174624) 12 mg/dL 7-23 GLUCOSE (test code = 8062982985) 174 mg/dL 70-110 H CREATININE (test code = 2225386317) 0.52 mg/dL 0.50-1.04 CALCIUM (test code = 6504265631) 8.7 mg/dL 8.6-10.6 eGFR (test code = 1040989389) 114.3 mL/min/1.73m2 LOW (test code = LOW) Association of [...] or abnormalities in imaging tests). Lab Interpretation (test code = 10382-5) [facility] 22:22:34* Test Item Value Reference Range Interpretation Comme nts MAGNESIUM (test code = 9593572976) 1.5 mg/dL 1.7-2.4 L Lab Interpretation (test cod e = 01833-2) [facility] (NA, K, CL, CO2, GLUCOSE, BUN, CREATININE, CA)2022-10-26 22:22:34* Test Item Value Reference Range Interpretation Comme nts NA (test code = 9718141056) 136 mmol/L 135-145 K (test code = 6500242419) 3.8 mmol/L 3.5-5.0 CL (test code = 8580665847) 98 mmol/L 98-108 CO2 TOTAL (test code = 8732346829) 32 mmol/L 23-31 H AGAP (test code = 0584947186) 6 2-16 BUN (test code = 6824339441) 12 mg/dL 7-23 GLUCOSE (test code = 0459714765) 174 mg/dL 70-110 H CREATININE (test code = 9087518606) 0.52 mg/dL 0.50-1.04 CALCIUM (test code = 9190180850) 8.7 mg/dL 8.6-10.6 eGFR (test code = 3967152982) 114.3 mL/min/1.73m2 LOW (test code = LOW) Association of [...] or abnormalities in imaging tests). Lab Interpretation (test code = 11393-7) [facility] Test Item Value Reference Range Interpretation Comme nts MAGNESIUM (test code = 8478609883) 1.5 mg/dL 1.7-2.4 L Lab Interpretation (test cod e = 47736-9) Abnormal [facility] GLUCOSE (AUTOMATED)2022-10-26 21:49:52* Test Item Value Reference Range Interpretation Comme nts POCT GLU (test code = 8311602038) 170 mg/dL 70-110 H Lab Interpretation (test cod e = 58266-5) Abnormal [facility] GLUCOSE (AUTOMATED)2022-10-26 21:49:52* Test Item Value Reference Range Interpretation Comme nts POCT GLU (test code = 7998902975) 170 mg/dL 70-110 H Lab Interpretation (test cod e = 72704-8) Abnormal [facility] GLUCOSE (AUTOMATED)2022-10-26 21:49:52* Test Item Value Reference Range Interpretation Comme nts POCT GLU (test code = 8036060935) 170 mg/dL 70-110 H Lab Interpretation (test cod e = 09061-8) Abnormal [facility] GLUCOSE (AUTOMATED)2022-10-26 17:58:19* Test Item Value Reference Range Interpretation Comme nts POCT GLU (test code = 0625565001) 222 mg/dL 70-110 H Lab Interpretation (test cod e = 24253-7) Abnormal [facility] GLUCOSE (AUTOMATED)2022-10-26 17:58:19* Test Item Value Reference Range Interpretation Comme nts POCT GLU (test code = 0998554348) 222 mg/dL 70-110 H Lab Interpretation (test cod e = 41573-3) Abnormal [facility] GLUCOSE (AUTOMATED)2022-10-26 17:58:19* Test Item Value Reference Range Interpretation Comme nts POCT GLU (test code = 5145626670) 222 mg/dL 70-110 H Lab Interpretation (test cod e = 15457-2) Abnormal [facility] GLUCOSE (AUTOMATED)2022-10-26 14:21:08* Test Item Value Reference Range Interpretation Comme nts POCT GLU (test code = 6968482795) 137 mg/dL 70-110 H Lab Interpretation (test cod e = 81690-9) Abnormal [facility] GLUCOSE (AUTOMATED)2022-10-26 14:21:08* Test Item Value Reference Range Interpretation Comme nts POCT GLU (test code = 9866668405) 137 mg/dL 70-110 H Lab Interpretation (test cod e = 78241-7) Abnormal [facility] GLUCOSE (AUTOMATED)2022-10-26 14:21:08* Test Item Value Reference Range Interpretation Comme nts POCT GLU (test code = 6916213853) 137 mg/dL 70-110 H Lab Interpretation (test cod e = 55551-0) [id number] 08:50:55* Test Item Value Reference Range Interpretation Comme nts TROPONIN I (test code = 5475649624) 0.008 ng/mL <=0.034 LOW (test code = LOW) Reference (Normal) [...] patient's use of biotin. Lab Interpretation (test code = 62192-7) Normal [facility] [id number] 08:50:55* Test Item Value Reference Range Interpretation Comme nts TROPONIN I (test code = 6845673517) 0.008 ng/mL <=0.034 LOW (test code = LOW) Reference (Normal) [...] patient's use of biotin. Lab Interpretation (test code = 96573-3) Normal [facility] [id number] 08:50:55* Test Item Value Reference Range Interpretation Comme nts TROPONIN I (test code = 7356227718) 0.008 ng/mL <=0.034 LOW (test code = LOW) Reference (Normal) [...] patient's use of biotin. Lab Interpretation (test code = 84477-5) [facility] [id number] 08:47:55* Test Item Value Reference Range Interpretation Comme nts NT-proBNP (test code = 3095996763) 1350 pg/mL <=450 H LOW (test code = LOW) Biotin has been reported to cause a negative bias, interpret results relative to patient's use of biotin. Lab Interpretation (test code = 33687-2) [facility] [id number] 08:47:55* Test Item Value Reference Range Interpretation Comme nts NT-proBNP (test code = 9197961448) 1350 pg/mL <=450 H LOW (test code = LOW) Biotin has been reported to cause a negative bias, interpret results relative to patient's use of biotin. Lab Interpretation (test code = 27014-2) [facility] [id number] 08:47:55* Test Item Value Reference Range Interpretation Comme nts NT-proBNP (test code = 8975411688) 1350 pg/mL <=450 H LOW (test code = LOW) Biotin has been reported to cause a negative bias, interpret results relative to patient's use of biotin. Lab Interpretation (test code = 07182-0) Abnormal [facility]. METABOLIC PANEL ([id number])2022-10-26 08:39:16* Test Item Value Reference Range Interpretation Comme nts NA (test code = 8195505034) 138 mmol/L 135-145 K (test code = 6252115231) 4.5 mmol/L 3.5-5.0 CL (test code = 4864048120) 105 mmol/L 98-108 CO2 TOTAL (test code = 4834867338) 27 mmol/L 23-31 AGAP (test code = 1146022920) 6 2-16 BUN (test code = 3053684500) 13 mg/dL 7-23 GLUCOSE (test code = 1052088799) 186 mg/dL 70-110 H CREATININE (test code = 7199353357) 0.51 mg/dL 0.50-1.04 TOTAL BILI (test code = 2313414078) 0.8 mg/dL 0.1-1.1 CALCIUM (test code = 3717256245) 8.7 mg/dL 8.6-10.6 T PROTEIN (test code = 6393320156) 6.5 g/dL 6.3-8.2 ALBUMIN (test code = 8021955548) 3.7 g/dL 3.5-5.0 ALK PHOS (test code = 0068933004) 54 U/L 34-122 ALTv (test code = 1742-6) 16 U/L 5-35 AST(SGOT) (test code = 5164035850) 32 U/L 13-40 eGFR (test code = 9831541753) 116.9 mL/min/1.73m2 LOW (test code = LOW) Association of [...] or abnormalities in imaging tests). Lab Interpretation (test code = 19457-7) Abnormal [facility]. METABOLIC PANEL (64101)2022-10-26 08:39:16* Test Item Value Reference Range Interpretation Comme nts NA (test code = 5863911990) 138 mmol/L 135-145 K (test code = 3890770892) 4.5 mmol/L 3.5-5.0 CL (test code = 1304144750) 105 mmol/L 98-108 CO2 TOTAL (test code = 2745275596) 27 mmol/L 23-31 AGAP (test code = 1885637941) 6 2-16 BUN (test code = 7630822562) 13 mg/dL 7-23 GLUCOSE (test code = 5209798734) 186 mg/dL 70-110 H CREATININE (test code = 9949207074) 0.51 mg/dL 0.50-1.04 TOTAL BILI (test code = 4850985333) 0.8 mg/dL 0.1-1.1 CALCIUM (test code = 0898253295) 8.7 mg/dL 8.6-10.6 T PROTEIN (test code = 6476649890) 6.5 g/dL 6.3-8.2 ALBUMIN (test code = 9115741024) 3.7 g/dL 3.5-5.0 ALK PHOS (test code = 0854174977) 54 U/L 34-122 ALTv (test code = 1742-6) 16 U/L 5-35 AST(SGOT) (test code = 4834435449) 32 U/L 13-40 eGFR (test code = 0530958907) 116.9 mL/min/1.73m2 LOW (test code = LOW) Association of [...] or abnormalities in imaging tests). Lab Interpretation (test code = 63463-1) [facility] (47312)2022-10-26 08:39:16* Test Item Value Reference Range Interpretation Comme nts NA (test code = 3359484690) 138 mmol/L 135-145 K (test code = 8309089631) 4.5 mmol/L 3.5-5.0 CL (test code = 3437082622) 105 mmol/L 98-108 CO2 TOTAL (test code = 4653004494) 27 mmol/L 23-31 AGAP (test code = 8265396105) 6 2-16 BUN (test code = 1693974367) 13 mg/dL 7-23 GLUCOSE (test code = 8579348986) 186 mg/dL 70-110 H CREATININE (test code = 2442389473) 0.51 mg/dL 0.50-1.04 TOTAL BILI (test code = 8711031297) 0.8 mg/dL 0.1-1.1 CALCIUM (test code = 2748614984) 8.7 mg/dL 8.6-10.6 T PROTEIN (test code = 7123195164) 6.5 g/dL 6.3-8.2 ALBUMIN (test code = 8388570035) 3.7 g/dL 3.5-5.0 ALK PHOS (test code = 0050684624) 54 U/L 34-122 ALTv (test code = 1742-6) 16 U/L 5-35 AST(SGOT) (test code = 5875260694) 32 U/L 13-40 eGFR (test code = 9410564192) 116.9 mL/min/1.73m2 LOW (test code = LOW) Association of [...] or abnormalities in imaging tests). Lab Interpretation (test code = 52965-3) [facility] / [id number] 08:26:13* Test Item Value Reference Range Interpretation Comme [facility] PROT[facility] PATIENT (test code = 5964-2) 13.3 See_Comment [[employer]pl[employer]] The system which generated this result transmitted reference range: 12.0 - 14.7 Seconds. The reference range was not used to interpret this result as normal/abnormal. INR (test code = 6301-6) 1.0 Normal INR <1.1; Warfarin Therapeutic range 2.0 to 3.0 or 2.5 to 3.5, depending upon the indications. Lab Interpretation (test code = 32559-7) Normal [facility] / [id number] 08:26:13* Test Item Value Reference Range Interpretation Comme [facility] PROT[facility] PATIENT (test code = 5964-2) 13.3 See_Comment [Automated messa ge] The system which generated this result transmitted reference range: 12.0 - 14.7 Seconds. The reference range was not used to interpret this result as normal/abnormal. INR (test code = 6301-6) 1.0 Normal INR <1.1; Warfarin Therapeutic range 2.0 to 3.0 or 2.5 to 3.5, depending upon the indications. Lab Interpretation (test code = 32606-3) Normal [facility] / [id number] 08:26:13* Test Item Value Reference Range Interpretation Comme nts PROTIME PATIENT (test code = 5964-2) 13.3 See_Comment [Automated messa [employer]] The system which generated this result transmitted reference range: 12.0 - 14.7 Seconds. The reference range was not used to interpret this result as normal/abnormal. INR (test code = 6301-6) 1.0 Normal INR <1.1; Warfarin Therapeutic range 2.0 to 3.0 or 2.5 to 3.5, depending upon the indications. Lab Interpretation (test code = 65550-8) [facility] [id number] 08:14:13* Test Item Value Reference Range Interpretation Comme [facility] WBC (test code = 6690-2) 9.20 See_Comment [Automated messa ge] The system which generated this result transmitted reference range: 4.30 - 11.10 10*3/?L. The reference range was not used to interpret this result as normal/abnormal. RBC (test code = 789-8) 3.95 See_Comment [Automated messa ge] The system which generated this result transmitted reference range: 3.93 - 5.25 10*6/?L. The reference range was not used to interpret this result as normal/abnormal. HGB (test code = 718-7) 11.0 g/dL 11.6-15.0 L HCT (test code = 4544-3) 35.5 % 35.7-45.2 L MCV (test code = 787-2) 89.9 fL 80.6-95.5 MCH (test code = 785-6) 27.8 pg 25.9-32.8 MCHC (test code = 786-4) 31.0 g/dL 31.6-35.1 L RDW-SD (test code = 81912-0) 53.8 fL 39.0-49.9 H RDW-CV (test code = 788-0) 16.5 % 12.0-15.5 H PLT (test code = 777-3) 308 See_Comment [Automated messa ge] The system which generated this result transmitted reference range: 166 - 358 10*3/?L. The reference range was not used to interpret this result as normal/abnormal. MPV (test code = 22323-6) 9.9 fL 9.5-12.9 NRBC/100 WBC (test code = 3004783299) 0.0 See_Comment [Automated me ssage] The system which generated this result transmitted reference range: 0.0 - 10.0 /100 WBCs. The reference range was not used to interpret this result as normal/abnormal. NRBC x10^3 (test code = 3214598907) See_Comment [Automated messa ge] The system which generated this result transmitted reference range: 10*3/?L. The reference range was not used to interpret this result as normal/abnormal. GRAN MAT (NEUT) % (test code = 770-8) 67.0 % IMM GRAN % (test code = 8702087510) 0.30 % LYMPH % (test code = 736-9) 20.5 % MONO % (test code = 5905-5) 8.5 % EOS % (test code = 713-8) 3.3 % BASO % (test code = 706-2) 0.4 % GRAN MAT x10^3(ANC) (test code = 0306483374) 6.16 10*3/uL 1.88-7.09 IMM GRAN x10^3 (test code = 0909637851) 0.03 10*3/uL 0.00-0.06 LYMPH x10^3 (test code = 731-0) 1.89 10*3/uL 1.32-3.29 MONO x10^3 (test code = 742-7) 0.78 10*3/uL 0.33-0.92 EOS x10^3 (test code = 711-2) 0.30 10*3/uL 0.03-0.39 BASO x10^3 (test code = 704-7) 0.04 10*3/uL 0.01-0.07 Lab Interpretation (test code = 10856-0) Abnormal [facility] WITH [id number] 08:14:13* Test Item Value Reference Range Interpretation Comme nts WBC (test code = 6690-2) 9.20 See_Comment [Automated messa ge] The system which generated this result transmitted reference range: 4.30 - 11.10 10*3/?L. The reference range was not used to interpret this result as normal/abnormal. RBC (test code = 789-8) 3.95 See_Comment [Automated messa ge] The system which generated this result transmitted reference range: 3.93 - 5.25 10*6/?L. The reference range was not used to interpret this result as normal/abnormal. HGB (test code = 718-7) 11.0 g/dL 11.6-15.0 L HCT (test code = 4544-3) 35.5 % 35.7-45.2 L MCV (test code = 787-2) 89.9 fL 80.6-95.5 MCH (test code = 785-6) 27.8 pg 25.9-32.8 MCHC (test code = 786-4) 31.0 g/dL 31.6-35.1 L RDW-SD (test code = 83829-1) 53.8 fL 39.0-49.9 H RDW-CV (test code = 788-0) 16.5 % 12.0-15.5 H PLT (test code = 777-3) 308 See_Comment [Automated messa ge] The system which generated this result transmitted reference range: 166 - 358 10*3/?L. The reference range was not used to interpret this result as normal/abnormal. MPV (test code = 75504-1) 9.9 fL 9.5-12.9 NRBC/100 WBC (test code = 7895392033) 0.0 See_Comment [Automated [employer] ssage] The system which generated this result transmitted reference range: 0.0 - 10.0 /100 WBCs. The reference range was not used to interpret this result as normal/abnormal. NRBC x10^3 (test code = 2843927687) See_Comment [Automated [employer]] The system which generated this result transmitted reference range: 10*3/?L. The reference range was not used to interpret this result as normal/abnormal. GRAN MAT (NEUT) % (test code = 770-8) 67.0 % IMM GRAN % (test code = 7084003919) 0.30 % LYMPH % (test code = 736-9) 20.5 % MONO % (test code = 5905-5) 8.5 % EOS % (test code = 713-8) 3.3 % BASO % (test code = 706-2) 0.4 % GRAN MAT x10^3(ANC) (test code = 6984427270) 6.16 10*3/uL 1.88-7.09 IMM GRAN x10^3 (test code = 7685744504) 0.03 10*3/uL 0.00-0.06 LYMPH x10^3 (test code = 731-0) 1.89 10*3/uL 1.32-3.29 MONO x10^3 (test code = 742-7) 0.78 10*3/uL 0.33-0.92 EOS x10^3 (test code = 711-2) 0.30 10*3/uL 0.03-0.39 BASO x10^3 (test code = 704-7) 0.04 10*3/uL 0.01-0.07 Lab Interpretation (test code = 17222-1) Abnormal [facility] WITH [id number] 08:14:13* Test Item Value Reference Range Interpretation Comme nts WBC (test code = 6690-2) 9.20 See_Comment [Automated [employer]] The system which generated this result transmitted reference range: 4.30 - 11.10 10*3/?L. The reference range was not used to interpret this result as normal/abnormal. RBC (test code = 789-8) 3.95 See_Comment [Automated messa ge] The system which generated this result transmitted reference range: 3.93 - 5.25 10*6/?L. The reference range was not used to interpret this result as normal/abnormal. HGB (test code = 718-7) 11.0 g/dL 11.6-15.0 L HCT (test code = 4544-3) 35.5 % 35.7-45.2 L MCV (test code = 787-2) 89.9 fL 80.6-95.5 MCH (test code = 785-6) 27.8 pg 25.9-32.8 MCHC (test code = 786-4) 31.0 g/dL 31.6-35.1 L RDW-SD (test code = 93786-5) 53.8 fL 39.0-49.9 H RDW-CV (test code = 788-0) 16.5 % 12.0-15.5 H PLT (test code = 777-3) 308 See_Comment [Automated [employer]] The system which generated this result transmitted reference range: 166 - 358 10*3/?L. The reference range was not used to interpret this result as normal/abnormal. MPV (test code = 46436-8) 9.9 fL 9.5-12.9 NRBC/100 WBC (test code = 0587361731) 0.0 See_Comment [Automated [employer] ssage] The system which generated this result transmitted reference range: 0.0 - 10.0 /100 WBCs. The reference range was not used to interpret this result as normal/abnormal. NRBC x10^3 (test code = 6967878526) See_Comment [Automated [employer]] The system which generated this result transmitted reference range: 10*3/?L. The reference range was not used to interpret this result as normal/abnormal. GRAN MAT (NEUT) % (test code = 770-8) 67.0 % IMM GRAN % (test code = 3131989343) 0.30 % LYMPH % (test code = 736-9) 20.5 % MONO % (test code = 5905-5) 8.5 % EOS % (test code = 713-8) 3.3 % BASO % (test code = 706-2) 0.4 % GRAN MAT x10^3(ANC) (test code = 8981283465) 6.16 10*3/uL 1.88-7.09 IMM GRAN x10^3 (test code = 1684819598) 0.03 10*3/uL 0.00-0.06 LYMPH x10^3 (test code = 731-0) 1.89 10*3/uL 1.32-3.29 MONO x10^3 (test code = 742-7) 0.78 10*3/uL 0.33-0.92 EOS x10^3 (test code = 711-2) 0.30 10*3/uL 0.03-0.39 BASO x10^3 (test code = 704-7) 0.04 10*3/uL 0.01-0.07 Lab Interpretation (test code = 01382-1) [facility] [id number] 08:12:34SPECIMEN NUMBER: [id number] CULTURE, URINE SPECIMEN NUMBER: [id number] SPECIMEN COMMENT: URINE SOURCE: URINE REPORT STATUS: FINAL ISOLATE NUMBER 1: ORGANISM: 10/18/2022 >100,000 CFU/ML GRAM NEGATIVEBACILLI IDENTIFICATION: 10/19/2022 ESCHERICHIA COLI E. COLI AMOXICILLIN/CA SENSITIVE <=8/4AMPICILLIN SENSITIVE <=8CEFAZOLIN SENSITIVE <=2CEFTRIAXONE SENSITIVE <=1CIPROFLOXACIN RESISTANT >2LEVOFLOXACIN RESISTANT >4NITROFURANTOIN SENSITIVE <=32PIP/TAZOBAC SENSITIVE <=16TETRACYCLINE RESISTANT >8TOBRAMYCIN SENSITIVE <=4TRIMETH/SULFA SENSITIVE <=2/38 NOTE: NUMBERS DISPLAYED REPRESENT MINIMUM INHIBITORY CONCENTRATION (JACOB) WHICH IS EXPRESSED IN MCG/ML.UNLESS OTHERWISE INDICATED, ALL TESTING PERFORMED AT [facility] [address] [place] [address] TIP PUNCHER: DIANELYS ANDERSON M.D. CLIA NUMBER [id number] [facility] [place]. [id number], [id number] 00:00:00* Test Item Value Reference Range Interpretation Comme nts CULTURE, URINE (test code = 73694) SPECIMEN NUMBER: [id number] [facility], [id number] 00:00:00* Test Item Value Reference Range Interpretation Comme nts CULTURE, URINE (test code = 80526) SPECIMEN NUMBER: [id number] [facility], [id number] 00:00:00* Test Item Value Reference Range Interpretation Comme nts CULTURE, URINE (test code = 52178) SPECIMEN NUMBER: [id number] Surendra Knowles, [id number] 00:00:00* Test Item Value Reference Range Interpretation Comme nts CULTURE, URINE (test code = 05861) SPECIMEN NUMBER: [id number] Surendra Knowles, [id number] 00:00:00* Test Item Value Reference Range Interpretation Comme nts CULTURE, URINE (test code = 52030) SPECIMEN NUMBER: [id number] Surendra Knowles, [id number] 00:00:00* Test Item Value Reference Range Interpretation Comme nts CULTURE, URINE (test code = 31194) SPECIMEN NUMBER: [id number] Surendra Knowles, [id number] 00:00:00* Test Item Value Reference Range Interpretation Comme nts CULTURE, URINE (test code = 68378) SPECIMEN NUMBER: [id number] Surendra Knowles, [id number] 00:00:00* Test Item Value Reference Range Interpretation Comme nts CULTURE, URINE (test code = 16251) SPECIMEN NUMBER: [id number] Surendra [place]22-[place]-06 22:24:54* Test Item Value Reference Range Interpretation Comme nts POCT GLU (test code = 4859999414) 287 mg/dL 70-110 H Lab Interpretation (test cod e = 82307-4) [facility] 16:41:31* Test Item Value Reference Range Interpretation Comme nts POCT GLU (test code = 1953747581) 175 mg/dL 70-110 H Notified Provide r Lab Interpretation (test code = 83868-3) [facility] 14:47:22* Test Item Value Reference Range Interpretation Comme nts POCT GLU (test code = 3326427023) 148 mg/dL 70-110 H Lab Interpretation (test cod e = 26926-4) [facility] 12:35:53* Test Item Value Reference Range Interpretation Comme nts POCT GLU (test code = 7287850566) 165 mg/dL 70-110 H Notified Provide r Lab Interpretation (test code = 03780-9) Abnormal [facility] GLUCOSE (AUTOMATED)2022-09-06 00:51:42* Test Item Value Reference Range Interpretation Comme nts POCT GLU (test code = 2853802952) 264 mg/dL 70-110 H Lab Interpretation (test cod e = 85106-4) Abnormal [facility] GLUCOSE (AUTOMATED)2022-09-05 22:16:15* Test Item Value Reference Range Interpretation Comme nts POCT GLU (test code = 7057174541) 252 mg/dL 70-110 H Lab Interpretation (test cod e = 75596-8) Abnormal [facility] GLUCOSE (AUTOMATED)2022-09-05 21:25:17* Test Item Value Reference Range Interpretation Comme nts POCT GLU (test code = 5837831967) 244 mg/dL 70-110 H Lab Interpretation (test cod e = 38097-5) Abnormal [facility] GLUCOSE (AUTOMATED)2022-09-05 17:01:15* Test Item Value Reference Range Interpretation Comme nts POCT GLU (test code = 5100806071) 219 mg/dL 70-110 H Lab Interpretation (test cod e = 63334-3) [facility]-05 02:11:39* Test Item Value Reference Range Interpretation Comme nts POCT GLU (test code = 7421526970) 316 mg/dL 70-110 H Lab Interpretation (test cod e = 72094-0) [facility]2022-[facility]-04 23:14:25* Test Item Value Reference Range Interpretation Comme nts POCT GLU (test code = 1328249685) 254 mg/dL 70-110 H Lab Interpretation (test cod e = 12455-3) [facility]-04 17:06:25* Test Item Value Reference Range Interpretation Comme nts POCT GLU (test code = 6411351619) 282 mg/dL 70-110 H Lab Interpretation (test cod e = 77135-4) Abnormal [facility] GLUCOSE (AUTOMATED)2022-09-04 13:32:54* Test Item Value Reference Range Interpretation Comme nts POCT GLU (test code = 1645074081) 181 mg/dL 70-110 H Lab Interpretation (test cod e = 44903-6) Abnormal [facility] GLUCOSE (AUTOMATED)2022-09-04 02:20:42* Test Item Value Reference Range Interpretation Comme nts POCT GLU (test code = 3186908189) 262 mg/dL 70-110 H Lab Interpretation (test cod e = 73614-9) Abnormal [facility] GLUCOSE (AUTOMATED)2022-09-03 22:30:06* Test Item Value Reference Range Interpretation Comme nts POCT GLU (test code = 1263706014) 242 mg/dL 70-110 H Lab Interpretation (test cod e = 83511-3) Abnormal [facility] GLUCOSE (AUTOMATED)2022-09-03 17:49:27* Test Item Value Reference Range Interpretation Comme nts POCT GLU (test code = 6915497443) 290 mg/dL 70-110 H Lab Interpretation (test cod e = 61525-9) Abnormal [facility] GLUCOSE (AUTOMATED)2022-09-03 13:35:16* Test Item Value Reference Range Interpretation Comme nts POCT GLU (test code = 9774990904) 193 mg/dL 70-110 H Lab Interpretation (test cod e = 77614-3) Abnormal [facility] GLUCOSE (AUTOMATED)2022-09-03 02:55:14* Test Item Value Reference Range Interpretation Comme nts POCT GLU (test code = 3446146210) 126 mg/dL 70-110 H Lab Interpretation (test cod e = 94903-4) [facility] [id number] 06:41:41* Test Item Value Reference Range Interpretation Comme nts VITAMIN D, 25 OH (test code = 4958) 49 NG/ML SEE BELOW EFFECTIVE 01/2023, PLEASE NOTE NEW METHODOLOGY IS ELECTROCHEMILUMINESCENCE BINDING ASSAY. NOTE: 25-HYDROXYVITAMIN D ASSAY INCLUDES 25-HYDROXYVITAMIN D2 AND D3. INTERPRETIVE RANGES PEDIATRIC (<17 YEARS) . . . . . . . . . . . NG/ML 20-100ADULT: INSUFFICIENT . . . . . . . . . . . . . . NG/ML <20 SUBOPTIMAL . . . . . . . . . . . . . . . NG/ML 20-29 OPTIMAL . . . . . . . . . . . . . . . . . NG/ML 30-100 TSH + FREE T4 [id number] 06:40:44* Test Item Value Reference Range Interpretation Comme nts TSH, THIRD GENERATION (test code = 2821) 2.440 UIU/ML 0.400-4.100 FREE T4 (THYROXINE) (test co de = 2823) 1.61 NG/DL 0.80-1.90 HEMOGLOBIN [id number] 04:54:32* Test Item Value Reference Range Interpretation Comme nts HEMOGLOBIN A1c (test code = 85710) 8.1 % 4.2-5.6 H [employer] GUIDELINES FOR HGB A1C: PREDIABETES/INCREASED RISK . . . . . . . 5.7-6.4% DIAGNOSIS OF DIABETES . . . . . . . . . >=6.5% WITH CONFIRMATION OR APPROPRIATE SYMPTOMS NOTE: ASSAY MAY BE AFFECTED BY HEMOGLOBINOPATHIES (SICKLE CELL ANEMIA, S-C DISEASE, OTHERS) OR ARTIFICIALLY LOWERED BY DECREASED RED CELL SURVIVAL (HEMOLYTIC ANEMIAS, BLOOD LOSS, ETC.). CONSIDER ALTERNATE TESTING OR LABORATORY CONSULTATION. COMPREHENSIVE METABOLIC [id number] 04:20:58* Test Item Value Reference Range Interpretation Comme nts GLUCOSE (test code = 2217) 88 MG/DL 70-99 BUN (test code = 2208) 14 MG/DL 8-23 CREATININE (test code = 2214) 0.67 MG/DL 0.60-1.30 eGFR (2020 CKD-EPI) (test code = 03754) 90 ML/MIN/1.73 >60 CALC BUN/CREAT (test code = 2235) 21 RATIO 6-28 SODIUM (test code = 2231) 140 MEQ/L 133-146 POTASSIUM (test code = 2228) 4.2 MEQ/L 3.5-5.4 CHLORIDE (test code = 2215) 101 MEQ/L 95-107 CARBON DIOXIDE (test code = 2206) 26 MEQ/L 19-31 CALCIUM (test code = 2209) 10.2 MG/DL 8.5-10.5 PROTEIN, TOTAL (test code = 2229) 7.2 G/DL 6.1-8.3 ALBUMIN (test code = 2201) 4.2 G/DL 3.5-5.2 CALC GLOBULIN (test code = 2240) 3.0 G/DL 1.9-3.7 CALC A/G RATIO (test code = 2234) 1.4 RATIO 1.0-2.6 BILIRUBIN, TOTAL (test code = 2207) 0.6 MG/DL See_Comment [Automated me ssage] The system which generated this result transmitted reference range: <=1.2. The reference range was not used to interpret this result as normal/abnormal. ALKALINE PHOSPHATASE (test code = 2203) 57 U/L 40-142 AST (test code = 2218) 24 U/L 9-40 ALT (test code = 2219) 13 U/L 5-40 LIPID [id number] 04:20:58* Test Item Value Reference Range Interpretation Comme nts CHOLESTEROL (test code = 0) 168 MG/DL <200 TRIGLYCERIDES (test code = 2232) 75 MG/DL <150 HDL CHOLESTEROL (test code = 2219) 53 MG/DL >39 CALC LDL CHOL (test code = 2236) 99 MG/DL <100 NOTE: CALCULATED LDL IS BASED ON ALOK-SANTOS METHOD WHICHINCLUDES ADJUSTABLE TRIGLYCERIDE:VLDL CHOLESTEROL RATIO.THIS FACTOR VARIES BY MEASURED TRIGLYCERIDE AND NON-HDLCHOLESTEROL CONCENTRATIONS WITH INCREASED CALCULATED LDL SEENIN HIGHER TRIGLYCERIDE OR LOWER NON-HDL SPECIMENS. FOR MOREINFORMATION, SEE CLIENT ANNOUNCEMENT AT [email or web address] RATIO LDL/HDL (test code = 223) 1.87 RATIO <3.22 CBC W/AUTO DIFF WITH [id number] 03:50:36* Test Item Value Reference Range Interpretation Comme nts WBC (test code = 1001) 9.8 K/UL 3.5-11.0 RBC (test code = 1002) 4.49 M/UL 3.80-5.40 HEMOGLOBIN (test code = 1003) 12.3 G/DL 11.5-15.5 HEMATOCRIT (test code = 1004) 37.6 % 34.0-45.0 MCV (test code = 1005) 83.7 fL 80.0-99.0 MCH (test code = 1006) 27.4 PG 25.0-33.0 MCHC (test code = 1007) 32.7 G/DL 31.0-36.0 RDW (test code = 1038) 14.4 % 11.5-15.0 NEUTROPHILS (test code = 1008) 68.6 % LYMPHOCYTES (test code = 1010) 19.6 % MONOCYTES (test code = 1011) 8.8 % EOSINOPHILS (test code = 1012) 1.8 % BASOPHILS (test code = 1013) 0.6 % IMMATURE GRANULOCYTES (test code = 1036) 0.6 % NUCLEATED RBCS (test code = 1065) 0.0 /100 WBC'S See_Comment [Automated messa ge] The system which generated this result transmitted reference range: 0.0. The reference range was not used to interpret this result as normal/abnormal. PLATELET COUNT (test code = 1015) 338 K/UL 130-400 ABSOLUTE NEUTROPHILS (test code = 1066) 6.72 K/UL 1.50-7.50 ABSOLUTE LYMPHOCYTES (test code = 1067) 1.92 K/UL 1.00-4.00 ABSOLUTE MONOCYTES (test code = 1068) 0.86 K/UL 0.20-1.00 ABSOLUTE EOSINOPHILS (test code = 1040) 0.18 K/UL 0.00-0.50 ABSOLUTE BASOPHILS (test code = 1069) 0.06 K/UL 0.00-0.20 ABS IMMATURE GRANULOCYTES (test code = 1020) 0.06 K/UL 0.00-0.10 ABS NUCLEATED RBCS (test code = 15187) 0.00 K/UL 0.00-0.11 [id number] 03:32:16* Test Item Value Reference Range Interpretation Comme nts MAGNESIUM (test code = 2226) 1.7 MG/DL 1.6-2.6 [facility] has impo rtant pathology staff changes effective 07/16/2022. New pathology staff will provide uninterrupted, excellent patient care and clinical consultation. See URL: [email or web address]. UNLESS OTHERWISE INDICATED, ALL TESTING PERFORMED AT [facility] [address] [place] [id number] TIP PUNCHER: DIANELYS ANDERSON M.D. CLIA NUMBER [id number] [facility] [place]. [id number] COMPREHENSIVE METABOLIC [id number] 00:00:00* Test Item Value Reference Range Interpretation Comme nts GLUCOSE (test code = 2217) 88 MG/DL BUN (test code = 2208) 14 MG/DL CREATININE (test code = 2214) 0.67 MG/DL eGFR (2020 CKD-EPI) (test co de = 87547) 90 ML/MIN/1.73 CALC BUN/CREAT (test code = 2235) 21 RATIO SODIUM (test code = 2231) 140 MEQ/L POTASSIUM (test code = 2228) 4.2 MEQ/L CHLORIDE (test code = 2215) 101 MEQ/L CARBON DIOXIDE (test code = 2206) 26 MEQ/L CALCIUM (test code = 2209) 10.2 MG/DL PROTEIN, TOTAL (test code = 2229) 7.2 G/DL ALBUMIN (test code = 2201) 4.2 G/DL CALC GLOBULIN (test code = 2240) 3.0 G/DL CALC A/G RATIO (test code = 2234) 1.4 RATIO BILIRUBIN, TOTAL (test code = 2207) 0.6 MG/DL ALKALINE PHOSPHATASE (test code = 2204) 57 U/L AST (test code = 2218) 24 U/L ALT (test code = 2219) 13 U/L Surendra WhiteLIPID [id number] 00:00:00* Test Item Value Reference Range Interpretation Comme nts CHOLESTEROL (test code = 2210) 168 MG/DL TRIGLYCERIDES (test code = 2232) 75 MG/DL HDL CHOLESTEROL (test code = 2220) 53 MG/DL CALC LDL CHOL (test code = 2237) 99 MG/DL RISK RATIO LDL/HDL (test cod e = 2238) 1.87 RATIO Surendra Ross ChristopherCBC W/AUTO [id number] 00:00:00* Test Item Value Reference Range Interpretation Comme nts WBC (test code = 1001) 9.8 K/UL RBC (test code = 1002) 4.49 M/UL HEMOGLOBIN (test code = 1003) 12.3 G/DL HEMATOCRIT (test code = 1004) 37.6 % MCV (test code = 1005) 83.7 fL MCH (test code = 1006) 27.4 PG MCHC (test code = 1007) 32.7 G/DL RDW (test code = 1038) 14.4 % NEUTROPHILS (test code = 1008) 68.6 % LYMPHOCYTES (test code = 1010) 19.6 % MONOCYTES (test code = 1011) 8.8 % EOSINOPHILS (test code = 1012) 1.8 % BASOPHILS (test code = 1013) 0.6 % IMMATURE GRANULOCYTES (test code = 1036) 0.6 % NUCLEATED RBCS (test code = 1065) 0.0 /100WBC'S PLATELET COUNT (test code = 1015) 338 K/UL ABSOLUTE NEUTROPHILS (test c ode = 1066) 6.72 K/UL ABSOLUTE LYMPHOCYTES (test c ode = 1067) 1.92 K/UL ABSOLUTE MONOCYTES (test cod e = 1068) 0.86 K/UL ABSOLUTE EOSINOPHILS (test c ode = 1040) 0.18 K/UL ABSOLUTE BASOPHILS (test cod e = 1069) 0.06 K/UL ABS IMMATURE GRANULOCYTES (t est code = 1020) 0.06 K/UL ABS NUCLEATED RBCS (test cod e = 68346) 0.00 K/UL Surendra WhiteTSH + FREE T4 [id number] 00:00:00* Test Item Value Reference Range Interpretation Comme nts TSH, THIRD GENERATION (test code = 2821) 2.440 UIU/ML FREE T4 (THYROXINE) (test co de = 2823) 1.61 NG/DL Surendra WhiteHEMOGLOBIN [id number] 00:00:00* Test Item Value Reference Range Interpretation Comme nts HEMOGLOBIN A1c (test code = 52983) 8.1 % Surendra [id number] 00:00:00* Test Item Value Reference Range Interpretation Comme nts MAGNESIUM (test code = 2226) 1.7 MG/DL Surendra WhiteVITAMIN D, 25 [id number] 00:00:00* Test Item Value Reference Range Interpretation Comme nts VITAMIN D, 25 OH (test code = 4958) 49 NG/ML Surendra WhiteCOMPREHENSIVE METABOLIC [id number] 00:00:00* Test Item Value Reference Range Interpretation Comme nts GLUCOSE (test code = 2217) 88 MG/DL BUN (test code = 2208) 14 MG/DL CREATININE (test code = 2214) 0.67 MG/DL eGFR (2020 CKD-EPI) (test co de = 73639) 90 ML/MIN/1.73 CALC BUN/CREAT (test code = 2235) 21 RATIO SODIUM (test code = 2231) 140 MEQ/L POTASSIUM (test code = 2228) 4.2 MEQ/L CHLORIDE (test code = 2215) 101 MEQ/L CARBON DIOXIDE (test code = 2206) 26 MEQ/L CALCIUM (test code = 2209) 10.2 MG/DL PROTEIN, TOTAL (test code = 2229) 7.2 G/DL ALBUMIN (test code = 2201) 4.2 G/DL CALC GLOBULIN (test code = 2240) 3.0 G/DL CALC A/G RATIO (test code = 2234) 1.4 RATIO BILIRUBIN, TOTAL (test code = 2207) 0.6 MG/DL ALKALINE PHOSPHATASE (test code = 2204) 57 U/L AST (test code = 2218) 24 U/L ALT (test code = 2219) 13 U/L Surendra F ChristopherLIPID [id number] 00:00:00* Test Item Value Reference Range Interpretation Comme nts CHOLESTEROL (test code = 2210) 168 MG/DL TRIGLYCERIDES (test code = 2232) 75 MG/DL HDL CHOLESTEROL (test code = 2220) 53 MG/DL CALC LDL CHOL (test code = 2237) 99 MG/DL RISK RATIO LDL/HDL (test cod e = 2238) 1.87 RATIO Surendra WhiteCBC W/AUTO [id number] 00:00:00* Test Item Value Reference Range Interpretation Comme nts WBC (test code = 1001) 9.8 K/UL RBC (test code = 1002) 4.49 M/UL HEMOGLOBIN (test code = 1003) 12.3 G/DL HEMATOCRIT (test code = 1004) 37.6 % MCV (test code = 1005) 83.7 fL MCH (test code = 1006) 27.4 PG MCHC (test code = 1007) 32.7 G/DL RDW (test code = 1038) 14.4 % NEUTROPHILS (test code = 1008) 68.6 % LYMPHOCYTES (test code = 1010) 19.6 % MONOCYTES (test code = 1011) 8.8 % EOSINOPHILS (test code = 1012) 1.8 % BASOPHILS (test code = 1013) 0.6 % IMMATURE GRANULOCYTES (test code = 1036) 0.6 % NUCLEATED RBCS (test code = 1065) 0.0 /100WBC'S PLATELET COUNT (test code = 1015) 338 K/UL ABSOLUTE NEUTROPHILS (test c ode = 1066) 6.72 K/UL ABSOLUTE LYMPHOCYTES (test c ode = 1067) 1.92 K/UL ABSOLUTE MONOCYTES (test cod e = 1068) 0.86 K/UL ABSOLUTE EOSINOPHILS (test c ode = 1040) 0.18 K/UL ABSOLUTE BASOPHILS (test cod e = 1069) 0.06 K/UL ABS IMMATURE GRANULOCYTES (t est code = 1020) 0.06 K/UL ABS NUCLEATED RBCS (test cod e = 17847) 0.00 K/UL Surendra WhiteTSH + FREE T4 [id number] 00:00:00* Test Item Value Reference Range Interpretation Comme nts TSH, THIRD GENERATION (test code = 2821) 2.440 UIU/ML FREE T4 (THYROXINE) (test co de = 2823) 1.61 NG/DL Surendra WhiteHEMOGLOBIN [id number] 00:00:00* Test Item Value Reference Range Interpretation Comme nts HEMOGLOBIN A1c (test code = 11593) 8.1 % Surendra [id number] 00:00:00* Test Item Value Reference Range Interpretation Comme nts MAGNESIUM (test code = 2226) 1.7 MG/DL Surendra WhiteVITAMIN D, 25 [id number] 00:00:00* Test Item Value Reference Range Interpretation Comme nts VITAMIN D, 25 OH (test code = 4958) 49 NG/ML Surendra WhiteCOMPREHENSIVE METABOLIC [id number] 00:00:00* Test Item Value Reference Range Interpretation Comme nts GLUCOSE (test code = 2217) 88 MG/DL BUN (test code = 2208) 14 MG/DL CREATININE (test code = 2214) 0.67 MG/DL eGFR (2020 CKD-EPI) (test co de = 18195) 90 ML/MIN/1.73 CALC BUN/CREAT (test code = 2235) 21 RATIO SODIUM (test code = 2231) 140 MEQ/L POTASSIUM (test code = 2228) 4.2 MEQ/L CHLORIDE (test code = 2215) 101 MEQ/L CARBON DIOXIDE (test code = 2206) 26 MEQ/L CALCIUM (test code = 2209) 10.2 MG/DL PROTEIN, TOTAL (test code = 2229) 7.2 G/DL ALBUMIN (test code = 2201) 4.2 G/DL CALC GLOBULIN (test code = 2240) 3.0 G/DL CALC A/G RATIO (test code = 2234) 1.4 RATIO BILIRUBIN, TOTAL (test code = 2207) 0.6 MG/DL ALKALINE PHOSPHATASE (test code = 2204) 57 U/L AST (test code = 2218) 24 U/L ALT (test code = 2219) 13 U/L Surendra WhiteLIPID [id number] 00:00:00* Test Item Value Reference Range Interpretation Comme nts CHOLESTEROL (test code = 2210) 168 MG/DL TRIGLYCERIDES (test code = 2232) 75 MG/DL HDL CHOLESTEROL (test code = 2220) 53 MG/DL CALC LDL CHOL (test code = 2237) 99 MG/DL RISK RATIO LDL/HDL (test cod e = 2238) 1.87 RATIO Surendra WhiteCBC W/AUTO [id number] 00:00:00* Test Item Value Reference Range Interpretation Comme nts WBC (test code = 1001) 9.8 K/UL RBC (test code = 1002) 4.49 M/UL HEMOGLOBIN (test code = 1003) 12.3 G/DL HEMATOCRIT (test code = 1004) 37.6 % MCV (test code = 1005) 83.7 fL MCH (test code = 1006) 27.4 PG MCHC (test code = 1007) 32.7 G/DL RDW (test code = 1038) 14.4 % NEUTROPHILS (test code = 1008) 68.6 % LYMPHOCYTES (test code = 1010) 19.6 % MONOCYTES (test code = 1011) 8.8 % EOSINOPHILS (test code = 1012) 1.8 % BASOPHILS (test code = 1013) 0.6 % IMMATURE GRANULOCYTES (test code = 1036) 0.6 % NUCLEATED RBCS (test code = 1065) 0.0 /100WBC'S PLATELET COUNT (test code = 1015) 338 K/UL ABSOLUTE NEUTROPHILS (test c ode = 1066) 6.72 K/UL ABSOLUTE LYMPHOCYTES (test c ode = 1067) 1.92 K/UL ABSOLUTE MONOCYTES (test cod e = 1068) 0.86 K/UL ABSOLUTE EOSINOPHILS (test c ode = 1040) 0.18 K/UL ABSOLUTE BASOPHILS (test cod e = 1069) 0.06 K/UL ABS IMMATURE GRANULOCYTES (t est code = 1020) 0.06 K/UL ABS NUCLEATED RBCS (test cod e = 46532) 0.00 K/UL Surendra WhiteTSH + FREE T4 [id number] 00:00:00* Test Item Value Reference Range Interpretation Comme nts TSH, THIRD GENERATION (test code = 2821) 2.440 UIU/ML FREE T4 (THYROXINE) (test co de = 2823) 1.61 NG/DL Surendra WhiteHEMOGLOBIN [id number] 00:00:00* Test Item Value Reference Range Interpretation Comme carmen HEMOGLOBIN A1c (test code = 75366) 8.1 % Surendra [id number] 00:00:00* Test Item Value Reference Range Interpretation Comme carmen MAGNESIUM (test code = 2226) 1.7 MG/DL Surendra WhiteVITAMIN D, 25 [id number] 00:00:00* Test Item Value Reference Range Interpretation Comme carmen VITAMIN D, 25 OH (test code = 4958) 49 NG/ML Surendra WhiteCOMPREHENSIVE METABOLIC [id number] 00:00:00* Test Item Value Reference Range Interpretation Comme nts GLUCOSE (test code = 2217) 88 MG/DL BUN (test code = 2208) 14 MG/DL CREATININE (test code = 2214) 0.67 MG/DL eGFR (2020 CKD-EPI) (test co de = ) 90 ML/MIN/1.73 CALC BUN/CREAT (test code = 2235) 21 RATIO SODIUM (test code = 2231) 140 MEQ/L POTASSIUM (test code = 2228) 4.2 MEQ/L CHLORIDE (test code = 2215) 101 MEQ/L CARBON DIOXIDE (test code = 2206) 26 MEQ/L CALCIUM (test code = 2209) 10.2 MG/DL PROTEIN, TOTAL (test code = 2229) 7.2 G/DL ALBUMIN (test code = 2201) 4.2 G/DL CALC GLOBULIN (test code = 2240) 3.0 G/DL CALC A/G RATIO (test code = 2234) 1.4 RATIO BILIRUBIN, TOTAL (test code = 2207) 0.6 MG/DL ALKALINE PHOSPHATASE (test code = 2204) 57 U/L AST (test code = 2218) 24 U/L ALT (test code = 2219) 13 U/L Surendra WhiteLIPID [id number] 00:00:00* Test Item Value Reference Range Interpretation Comme nts CHOLESTEROL (test code = 2210) 168 MG/DL TRIGLYCERIDES (test code = 2232) 75 MG/DL HDL CHOLESTEROL (test code = 2220) 53 MG/DL CALC LDL CHOL (test code = 2237) 99 MG/DL RISK RATIO LDL/HDL (test cod e = 2238) 1.87 RATIO Surendra WhiteCBC W/AUTO [id number] 00:00:00* Test Item Value Reference Range Interpretation Comme nts WBC (test code = 1001) 9.8 K/UL RBC (test code = 1002) 4.49 M/UL HEMOGLOBIN (test code = 1003) 12.3 G/DL HEMATOCRIT (test code = 1004) 37.6 % MCV (test code = 1005) 83.7 fL MCH (test code = 1006) 27.4 PG MCHC (test code = 1007) 32.7 G/DL RDW (test code = 1038) 14.4 % NEUTROPHILS (test code = 1008) 68.6 % LYMPHOCYTES (test code = 1010) 19.6 % MONOCYTES (test code = 1011) 8.8 % EOSINOPHILS (test code = 1012) 1.8 % BASOPHILS (test code = 1013) 0.6 % IMMATURE GRANULOCYTES (test code = 1036) 0.6 % NUCLEATED RBCS (test code = 1065) 0.0 /100WBC'S PLATELET COUNT (test code = 1015) 338 K/UL ABSOLUTE NEUTROPHILS (test c ode = 1066) 6.72 K/UL ABSOLUTE LYMPHOCYTES (test c ode = 1067) 1.92 K/UL ABSOLUTE MONOCYTES (test cod e = 1068) 0.86 K/UL ABSOLUTE EOSINOPHILS (test c ode = 1040) 0.18 K/UL ABSOLUTE BASOPHILS (test cod e = 1069) 0.06 K/UL ABS IMMATURE GRANULOCYTES (t est code = 1020) 0.06 K/UL ABS NUCLEATED RBCS (test cod e = 95113) 0.00 K/UL Surendra WhiteTSH + FREE T4 [id number] 00:00:00* Test Item Value Reference Range Interpretation Comme carmen TSH, THIRD GENERATION (test code = 2821) 2.440 UIU/ML FREE T4 (THYROXINE) (test co de = 2823) 1.61 NG/DL Surendra WhiteHEMOGLOBIN [id number] 00:00:00* Test Item Value Reference Range Interpretation Comme carmen HEMOGLOBIN A1c (test code = 86584) 8.1 % Surendra [id number] 00:00:00* Test Item Value Reference Range Interpretation Comme carmen MAGNESIUM (test code = 2226) 1.7 MG/DL Surendra WhiteVITAMIN D, 25 [id number] 00:00:00* Test Item Value Reference Range Interpretation Comme carmen VITAMIN D, 25 OH (test code = 4958) 49 NG/ML Surendra WhiteCOMPREHENSIVE METABOLIC [id number] 00:00:00* Test Item Value Reference Range Interpretation Comme nts GLUCOSE (test code = 2217) 88 MG/DL BUN (test code = 2208) 14 MG/DL CREATININE (test code = 2214) 0.67 MG/DL eGFR (2020 CKD-EPI) (test co de = 47160) 90 ML/MIN/1.73 CALC BUN/CREAT (test code = 2235) 21 RATIO SODIUM (test code = 2231) 140 MEQ/L POTASSIUM (test code = 2228) 4.2 MEQ/L CHLORIDE (test code = 2215) 101 MEQ/L CARBON DIOXIDE (test code = 2206) 26 MEQ/L CALCIUM (test code = 2209) 10.2 MG/DL PROTEIN, TOTAL (test code = 2229) 7.2 G/DL ALBUMIN (test code = 2201) 4.2 G/DL CALC GLOBULIN (test code = 2240) 3.0 G/DL CALC A/G RATIO (test code = 2234) 1.4 RATIO BILIRUBIN, TOTAL (test code = 2207) 0.6 MG/DL ALKALINE PHOSPHATASE (test code = 2204) 57 U/L AST (test code = 2218) 24 U/L ALT (test code = 2219) 13 U/L Surendra WhiteLIPID [id number] 00:00:00* Test Item Value Reference Range Interpretation Comme nts CHOLESTEROL (test code = 2210) 168 MG/DL TRIGLYCERIDES (test code = 2232) 75 MG/DL HDL CHOLESTEROL (test code = 2220) 53 MG/DL CALC LDL CHOL (test code = 2237) 99 MG/DL RISK RATIO LDL/HDL (test cod e = 2238) 1.87 RATIO Surendra WhiteCBC W/AUTO [id number] 00:00:00* Test Item Value Reference Range Interpretation Comme nts WBC (test code = 1001) 9.8 K/UL RBC (test code = 1002) 4.49 M/UL HEMOGLOBIN (test code = 1003) 12.3 G/DL HEMATOCRIT (test code = 1004) 37.6 % MCV (test code = 1005) 83.7 fL MCH (test code = 1006) 27.4 PG MCHC (test code = 1007) 32.7 G/DL RDW (test code = 1038) 14.4 % NEUTROPHILS (test code = 1008) 68.6 % LYMPHOCYTES (test code = 1010) 19.6 % MONOCYTES (test code = 1011) 8.8 % EOSINOPHILS (test code = 1012) 1.8 % BASOPHILS (test code = 1013) 0.6 % IMMATURE GRANULOCYTES (test code = 1036) 0.6 % NUCLEATED RBCS (test code = 1065) 0.0 /100WBC'S PLATELET COUNT (test code = 1015) 338 K/UL ABSOLUTE NEUTROPHILS (test c ode = 1066) 6.72 K/UL ABSOLUTE LYMPHOCYTES (test c ode = 1067) 1.92 K/UL ABSOLUTE MONOCYTES (test cod e = 1068) 0.86 K/UL ABSOLUTE EOSINOPHILS (test c ode = 1040) 0.18 K/UL ABSOLUTE BASOPHILS (test cod e = 1069) 0.06 K/UL ABS IMMATURE GRANULOCYTES (t est code = 1020) 0.06 K/UL ABS NUCLEATED RBCS (test cod e = 35008) 0.00 K/UL Surendra WhiteTSH + FREE T4 [id number] 00:00:00* Test Item Value Reference Range Interpretation Comme nts TSH, THIRD GENERATION (test code = 2821) 2.440 UIU/ML FREE T4 (THYROXINE) (test co de = 2823) 1.61 NG/DL Surendra WhiteHEMOGLOBIN [id number] 00:00:00* Test Item Value Reference Range Interpretation Comme carmen HEMOGLOBIN A1c (test code = 10055) 8.1 % Surendra [id number] 00:00:00* Test Item Value Reference Range Interpretation Comme nts MAGNESIUM (test code = 2226) 1.7 MG/DL Surendra WhiteVITAMIN D, 25 [id number] 00:00:00* Test Item Value Reference Range Interpretation Comme nts VITAMIN D, 25 OH (test code = 4958) 49 NG/ML Surendra WhiteCOMPREHENSIVE METABOLIC [id number] 00:00:00* Test Item Value Reference Range Interpretation Comme nts GLUCOSE (test code = 2217) 88 MG/DL BUN (test code = 2208) 14 MG/DL CREATININE (test code = 2214) 0.67 MG/DL eGFR (2020 CKD-EPI) (test co de = 98893) 90 ML/MIN/1.73 CALC BUN/CREAT (test code = 2235) 21 RATIO SODIUM (test code = 2231) 140 MEQ/L POTASSIUM (test code = 2228) 4.2 MEQ/L CHLORIDE (test code = 2215) 101 MEQ/L CARBON DIOXIDE (test code = 2206) 26 MEQ/L CALCIUM (test code = 2209) 10.2 MG/DL PROTEIN, TOTAL (test code = 2229) 7.2 G/DL ALBUMIN (test code = 2201) 4.2 G/DL CALC GLOBULIN (test code = 2240) 3.0 G/DL CALC A/G RATIO (test code = 2234) 1.4 RATIO BILIRUBIN, TOTAL (test code = 2207) 0.6 MG/DL ALKALINE PHOSPHATASE (test code = 2204) 57 U/L AST (test code = 2218) 24 U/L ALT (test code = 2219) 13 U/L Surendra WhiteLIPID [id number] 00:00:00* Test Item Value Reference Range Interpretation Comme nts CHOLESTEROL (test code = 2210) 168 MG/DL TRIGLYCERIDES (test code = 2232) 75 MG/DL HDL CHOLESTEROL (test code = 2220) 53 MG/DL CALC LDL CHOL (test code = 2237) 99 MG/DL RISK RATIO LDL/HDL (test cod e = 2238) 1.87 RATIO Surendra WhiteCBC W/AUTO [id number] 00:00:00* Test Item Value Reference Range Interpretation Comme nts WBC (test code = 1001) 9.8 K/UL RBC (test code = 1002) 4.49 M/UL HEMOGLOBIN (test code = 1003) 12.3 G/DL HEMATOCRIT (test code = 1004) 37.6 % MCV (test code = 1005) 83.7 fL MCH (test code = 1006) 27.4 PG MCHC (test code = 1007) 32.7 G/DL RDW (test code = 1038) 14.4 % NEUTROPHILS (test code = 1008) 68.6 % LYMPHOCYTES (test code = 1010) 19.6 % MONOCYTES (test code = 1011) 8.8 % EOSINOPHILS (test code = 1012) 1.8 % BASOPHILS (test code = 1013) 0.6 % IMMATURE GRANULOCYTES (test code = 1036) 0.6 % NUCLEATED RBCS (test code = 1065) 0.0 /100WBC'S PLATELET COUNT (test code = 1015) 338 K/UL ABSOLUTE NEUTROPHILS (test c ode = 1066) 6.72 K/UL ABSOLUTE LYMPHOCYTES (test c ode = 1067) 1.92 K/UL ABSOLUTE MONOCYTES (test cod e = 1068) 0.86 K/UL ABSOLUTE EOSINOPHILS (test c ode = 1040) 0.18 K/UL ABSOLUTE BASOPHILS (test cod e = 1069) 0.06 K/UL ABS IMMATURE GRANULOCYTES (t est code = 1020) 0.06 K/UL ABS NUCLEATED RBCS (test cod e = 15696) 0.00 K/UL Surendra WhiteTSH + FREE T4 [id number] 00:00:00* Test Item Value Reference Range Interpretation Comme nts TSH, THIRD GENERATION (test code = 2821) 2.440 UIU/ML FREE T4 (THYROXINE) (test co de = 2823) 1.61 NG/DL Surendra WhiteHEMOGLOBIN [id number] 00:00:00* Test Item Value Reference Range Interpretation Comme nts HEMOGLOBIN A1c (test code = 11334) 8.1 % Surendra [id number] 00:00:00* Test Item Value Reference Range Interpretation Comme nts MAGNESIUM (test code = 2226) 1.7 MG/DL Surendra WhiteVITAMIN D, 25 [id number] 00:00:00* Test Item Value Reference Range Interpretation Comme nts VITAMIN D, 25 OH (test code = 4958) 49 NG/ML Surendra WhiteCOMPREHENSIVE METABOLIC [id number] 00:00:00* Test Item Value Reference Range Interpretation Comme nts GLUCOSE (test code = 2217) 88 MG/DL BUN (test code = 2208) 14 MG/DL CREATININE (test code = 2214) 0.67 MG/DL eGFR (2020 CKD-EPI) (test co de = 12305) 90 ML/MIN/1.73 CALC BUN/CREAT (test code = 2235) 21 RATIO SODIUM (test code = 2231) 140 MEQ/L POTASSIUM (test code = 2228) 4.2 MEQ/L CHLORIDE (test code = 2215) 101 MEQ/L CARBON DIOXIDE (test code = 2206) 26 MEQ/L CALCIUM (test code = 2209) 10.2 MG/DL PROTEIN, TOTAL (test code = 2229) 7.2 G/DL ALBUMIN (test code = 2201) 4.2 G/DL CALC GLOBULIN (test code = 2240) 3.0 G/DL CALC A/G RATIO (test code = 2234) 1.4 RATIO BILIRUBIN, TOTAL (test code = 2207) 0.6 MG/DL ALKALINE PHOSPHATASE (test code = 2204) 57 U/L AST (test code = 2218) 24 U/L ALT (test code = 2219) 13 U/L Surendra WhiteLIPID [id number] 00:00:00* Test Item Value Reference Range Interpretation Comme nts CHOLESTEROL (test code = 2210) 168 MG/DL TRIGLYCERIDES (test code = 2232) 75 MG/DL HDL CHOLESTEROL (test code = 2220) 53 MG/DL CALC LDL CHOL (test code = 2237) 99 MG/DL RISK RATIO LDL/HDL (test cod e = 2238) 1.87 RATIO Surendra WhiteCBC W/AUTO [id number] 00:00:00* Test Item Value Reference Range Interpretation Comme nts WBC (test code = 1001) 9.8 K/UL RBC (test code = 1002) 4.49 M/UL HEMOGLOBIN (test code = 1003) 12.3 G/DL HEMATOCRIT (test code = 1004) 37.6 % MCV (test code = 1005) 83.7 fL MCH (test code = 1006) 27.4 PG MCHC (test code = 1007) 32.7 G/DL RDW (test code = 1038) 14.4 % NEUTROPHILS (test code = 1008) 68.6 % LYMPHOCYTES (test code = 1010) 19.6 % MONOCYTES (test code = 1011) 8.8 % EOSINOPHILS (test code = 1012) 1.8 % BASOPHILS (test code = 1013) 0.6 % IMMATURE GRANULOCYTES (test code = 1036) 0.6 % NUCLEATED RBCS (test code = 1065) 0.0 /100WBC'S PLATELET COUNT (test code = 1015) 338 K/UL ABSOLUTE NEUTROPHILS (test c ode = 1066) 6.72 K/UL ABSOLUTE LYMPHOCYTES (test c ode = 1067) 1.92 K/UL ABSOLUTE MONOCYTES (test cod e = 1068) 0.86 K/UL ABSOLUTE EOSINOPHILS (test c ode = 1040) 0.18 K/UL ABSOLUTE BASOPHILS (test cod e = 1069) 0.06 K/UL ABS IMMATURE GRANULOCYTES (t est code = 1020) 0.06 K/UL ABS NUCLEATED RBCS (test cod e = 36065) 0.00 K/UL Surendra Ross ChristopherTSH + FREE T4 [id number] 00:00:00* Test Item Value Reference Range Interpretation Comme nts TSH, THIRD GENERATION (test code = 2821) 2.440 UIU/ML FREE T4 (THYROXINE) (test co de = 2823) 1.61 NG/DL Surendra Ross ChristopherHEMOGLOBIN [id number] 00:00:00* Test Item Value Reference Range Interpretation Comme nts HEMOGLOBIN A1c (test code = 29435) 8.1 % Surendra Ross [id number] 00:00:00* Test Item Value Reference Range Interpretation Comme nts MAGNESIUM (test code = 2226) 1.7 MG/DL Surendra Vandana ChristopherVITAMIN D, 25 [id number] 00:00:00* Test Item Value Reference Range Interpretation Comme nts VITAMIN D, 25 OH (test code = 4958) 49 NG/ML Surendra WhiteCOMPREHENSIVE METABOLIC [id number] 00:00:00* Test Item Value Reference Range Interpretation Comme nts GLUCOSE (test code = 2217) 88 MG/DL BUN (test code = 2208) 14 MG/DL CREATININE (test code = 2214) 0.67 MG/DL eGFR (2020 CKD-EPI) (test co de = 51578) 90 ML/MIN/1.73 CALC BUN/CREAT (test code = 2235) 21 RATIO SODIUM (test code = 2231) 140 MEQ/L POTASSIUM (test code = 2228) 4.2 MEQ/L CHLORIDE (test code = 2215) 101 MEQ/L CARBON DIOXIDE (test code = 2206) 26 MEQ/L CALCIUM (test code = 2209) 10.2 MG/DL PROTEIN, TOTAL (test code = 2229) 7.2 G/DL ALBUMIN (test code = 2201) 4.2 G/DL CALC GLOBULIN (test code = 2240) 3.0 G/DL CALC A/G RATIO (test code = 2234) 1.4 RATIO BILIRUBIN, TOTAL (test code = 2207) 0.6 MG/DL ALKALINE PHOSPHATASE (test code = 2204) 57 U/L AST (test code = 2218) 24 U/L ALT (test code = 2219) 13 U/L Surendra WhiteLIPID [id number] 00:00:00* Test Item Value Reference Range Interpretation Comme nts CHOLESTEROL (test code = 2210) 168 MG/DL TRIGLYCERIDES (test code = 2232) 75 MG/DL HDL CHOLESTEROL (test code = 2220) 53 MG/DL CALC LDL CHOL (test code = 2237) 99 MG/DL RISK RATIO LDL/HDL (test cod e = 2238) 1.87 RATIO Surendra WhiteCBC W/AUTO [id number] 00:00:00* Test Item Value Reference Range Interpretation Comme nts WBC (test code = 1001) 9.8 K/UL RBC (test code = 1002) 4.49 M/UL HEMOGLOBIN (test code = 1003) 12.3 G/DL HEMATOCRIT (test code = 1004) 37.6 % MCV (test code = 1005) 83.7 fL MCH (test code = 1006) 27.4 PG MCHC (test code = 1007) 32.7 G/DL RDW (test code = 1038) 14.4 % NEUTROPHILS (test code = 1008) 68.6 % LYMPHOCYTES (test code = 1010) 19.6 % MONOCYTES (test code = 1011) 8.8 % EOSINOPHILS (test code = 1012) 1.8 % BASOPHILS (test code = 1013) 0.6 % IMMATURE GRANULOCYTES (test code = 1036) 0.6 % NUCLEATED RBCS (test code = 1065) 0.0 /100WBC'S PLATELET COUNT (test code = 1015) 338 K/UL ABSOLUTE NEUTROPHILS (test c ode = 1066) 6.72 K/UL ABSOLUTE LYMPHOCYTES (test c ode = 1067) 1.92 K/UL ABSOLUTE MONOCYTES (test cod e = 1068) 0.86 K/UL ABSOLUTE EOSINOPHILS (test c ode = 1040) 0.18 K/UL ABSOLUTE BASOPHILS (test cod e = 1069) 0.06 K/UL ABS IMMATURE GRANULOCYTES (t est code = 1020) 0.06 K/UL ABS NUCLEATED RBCS (test cod e = 65209) 0.00 K/UL Surendra WhiteTSH + FREE T4 [id number] 00:00:00* Test Item Value Reference Range Interpretation Comme nts TSH, THIRD GENERATION (test code = 2821) 2.440 UIU/ML FREE T4 (THYROXINE) (test co de = 2823) 1.61 NG/DL Surendra WhiteHEMOGLOBIN [id number] 00:00:00* Test Item Value Reference Range Interpretation Comme nts HEMOGLOBIN A1c (test code = 55471) 8.1 % Surendra [id number] 00:00:00* Test Item Value Reference Range Interpretation Comme nts MAGNESIUM (test code = 2226) 1.7 MG/DL Surendra WhiteVITAMIN D, 25 [id number] 00:00:00* Test Item Value Reference Range Interpretation Comme nts VITAMIN D, 25 OH (test code = 4958) 49 NG/ML Surendra WhiteCULTURE, [id number] 12:56:48SPECIMEN NUMBER: [id number] CULTURE, URINE SPECIMEN NUMBER: [id number] SPECIMEN COMMENT: URINE SOURCE: URINE REPORT STATUS: FINAL FINAL REPORT: 08/07/2022 >100,000 CFU/ML UROGENITAL [place] PRESENT NOCOMMON PATHOGENS [facility] has important pathology staff changes effective 07/16/2022. New pathology staff will provide uninterrupted, excellent patient care and clinical consultation. See URL: [email or web address]. UNLESS OTHERWISE INDICATED, ALL TESTING PERFORMED AT [facility], [facility]. [address] [place] [address] TIP PUNCHER: DIANELYS ANDERSON M.D. CLIA NUMBER [id number] [facility] [place]. [id number], [id number] 00:00:00* Test Item Value Reference Range Interpretation Comme nts CULTURE, URINE (test code = 24974) SPECIMEN NUMBER: [id number] Surendra Knowles, [id number] 00:00:00* Test Item Value Reference Range Interpretation Comme nts CULTURE, URINE (test code = 68097) SPECIMEN NUMBER: [id number] Surendra SilveiraLTMARCELLO, [id number] 00:00:00* Test Item Value Reference Range Interpretation Comme nts CULTURE, URINE (test code = 61731) SPECIMEN NUMBER: [id number] Surendra SilveiraLTMARCELLO, [id number] 00:00:00* Test Item Value Reference Range Interpretation Comme nts CULTURE, URINE (test code = 83032) SPECIMEN NUMBER: [id number] Surendra SilveiraLTMARCELLO, [id number] 00:00:00* Test Item Value Reference Range Interpretation Comme nts CULTURE, URINE (test code = 15768) SPECIMEN NUMBER: [id number] Surendra SilveiraLTMARCELLO, [id number] 00:00:00* Test Item Value Reference Range Interpretation Comme nts CULTURE, URINE (test code = 95543) SPECIMEN NUMBER: [id number] Surendra SilveiraLTMARCELLO, [id number] 00:00:00* Test Item Value Reference Range Interpretation Comme nts CULTURE, URINE (test code = 44904) SPECIMEN NUMBER: [id number] Surendra SilveiraLTMARCELLO, [id number] 00:00:00* Test Item Value Reference Range Interpretation Comme nts CULTURE, URINE (test code = 47956) SPECIMEN NUMBER: [id number] Surendra SilveiraLTMARCELLO, [id number] 00:00:00* Test Item Value Reference Range Interpretation Comme nts CULTURE, URINE (test code = 47300) SPECIMEN NUMBER: [id number] Surendra Knowles, [id number] 00:00:00* Test Item Value Reference Range Interpretation Comme nts CULTURE, URINE (test code = 47041) SPECIMEN NUMBER: [id number] Surendra SilveiraLTMARCELLO, [id number] 00:00:00* Test Item Value Reference Range Interpretation Comme nts CULTURE, URINE (test code = 88637) SPECIMEN NUMBER: [id number] Surendra Knowles, [id number] 00:00:00* Test Item Value Reference Range Interpretation Comme nts CULTURE, URINE (test code = 05830) SPECIMEN NUMBER: [id number] Surendra Knowles, [id number] 00:00:00* Test Item Value Reference Range Interpretation Comme nts CULTURE, URINE (test code = 61484) SPECIMEN NUMBER: [id number] Surendra SilveiraLTMARCELLO, [id number] 00:00:00* Test Item Value Reference Range Interpretation Comme nts CULTURE, URINE (test code = 24785) SPECIMEN NUMBER: [id number] Surendra Knowles, [id number] 00:00:00* Test Item Value Reference Range Interpretation Comme nts CULTURE, URINE (test code = 69005) SPECIMEN NUMBER: [id number] Surendra SilveiraLTMARCELLO, [id number] 00:00:00* Test Item Value Reference Range Interpretation Comme nts CULTURE, URINE (test code = 06911) SPECIMEN NUMBER: [id number] Surendra WhiteHEMOGLOBIN [id number] 00:00:00* Test Item Value Reference Range Interpretation Comme nts HEMOGLOBIN A1c (test code = 65606) 8.9 % Surendra Ross AustinHEMOGLOBIN [id number] 00:00:00* Test Item Value Reference Range Interpretation Comme nts HEMOGLOBIN A1c (test code = 88791) 8.9 % Surendra Ross AustinHEMOGLOBIN [id number] 00:00:00* Test Item Value Reference Range Interpretation Comme nts HEMOGLOBIN A1c (test code = 89192) 8.9 % Surendra WhtieHEMOGLOBIN [id number] 00:00:00* Test Item Value Reference Range Interpretation Comme nts HEMOGLOBIN A1c (test code = 33472) 8.9 % Surendra WhiteHEMOGLOBIN [id number] 00:00:00* Test Item Value Reference Range Interpretation Comme nts HEMOGLOBIN A1c (test code = 85567) 8.9 % Surendra Ross AustinHEMOGLOBIN [id number] 00:00:00* Test Item Value Reference Range Interpretation Comme nts HEMOGLOBIN A1c (test code = 63938) 8.9 % Surendra WhiteHEMOGLOBIN [id number] 00:00:00* Test Item Value Reference Range Interpretation Comme nts HEMOGLOBIN A1c (test code = 71972) 8.9 % Surendra WhiteHEMOGLOBIN [id number] 00:00:00* Test Item Value Reference Range Interpretation Comme nts HEMOGLOBIN A1c (test code = 00253) 8.9 % Surendra WhiteTSH, THIRD [id number] 03:54:20* Test Item Value Reference Range Interpretation Comme carmen TSH, THIRD GENERATION (test code = 2821) 2.700 UIU/ML 0.400-4.100 UNLESS OTHERWISE INDICATED, ALL TESTING PERFORMED [facility] [address] [place] [address] TIP PUNCHER: JANUSZ JJ M.D. CLIA NUMBER [id number] [facility] [place]. [id number] HEMOGLOBIN [id number] 03:14:04* Test Item Value Reference Range Interpretation Comme carmen HEMOGLOBIN A1c (test code = 80338) 9.3 % 4.2-5.6 H [employer] GUIDELINES FOR HGB A1C: PREDIABETES/INCREASED RISK . . . . . . . 5.7-6.4% DIAGNOSIS OF DIABETES . . . . . . . . . >=6.5% WITH CONFIRMATION OR APPROPRIATE SYMPTOMS NOTE: ASSAY MAY BE AFFECTED BY HEMOGLOBINOPATHIES (SICKLE CELL ANEMIA, S-C DISEASE, OTHERS) OR ARTIFICIALLY LOWERED BY DECREASED RED CELL SURVIVAL (HEMOLYTIC ANEMIAS, BLOOD LOSS, ETC.). CONSIDER ALTERNATE TESTING OR LABORATORY CONSULTATION. CBC W/AUTO DIFF WITH [id number] 02:43:09* Test Item Value Reference Range Interpretation Comme nts WBC (test code = 1001) 9.0 K/UL 3.5-11.0 RBC (test code = 1002) 4.20 M/UL 3.80-5.40 HEMOGLOBIN (test code = 1003) 11.2 G/DL 11.5-15.5 L HEMATOCRIT (test code = 1004) 34.0 % 34.0-45.0 MCV (test code = 1005) 81.0 fL 80.0-99.0 MCH (test code = 1006) 26.7 PG 25.0-33.0 MCHC (test code = 1007) 32.9 G/DL 31.0-36.0 RDW (test code = 1038) 14.6 % 11.5-15.0 NEUTROPHILS (test code = 1008) 59.0 % LYMPHOCYTES (test code = 1010) 27.6 % MONOCYTES (test code = 1011) 9.3 % EOSINOPHILS (test code = 1012) 3.1 % BASOPHILS (test code = 1013) 0.6 % IMMATURE GRANULOCYTES (test code = 1036) 0.4 % NUCLEATED RBCS (test code = 1065) 0.0 /100 WBC'S See_Comment [Automated [employer]] The system which generated this result transmitted reference range: 0.0. The reference range was not used to interpret this result as normal/abnormal. PLATELET COUNT (test code = 1015) 304 K/UL 130-400 ABSOLUTE NEUTROPHILS (test code = 1066) 5.32 K/UL 1.50-7.50 ABSOLUTE LYMPHOCYTES (test code = 1067) 2.49 K/UL 1.00-4.00 ABSOLUTE MONOCYTES (test code = 1068) 0.84 K/UL 0.20-1.00 ABSOLUTE EOSINOPHILS (test code = 1040) 0.28 K/UL 0.00-0.50 ABSOLUTE BASOPHILS (test code = 1069) 0.05 K/UL 0.00-0.20 ABS IMMATURE GRANULOCYTES (test code = 1020) 0.04 K/UL 0.00-0.10 ABS NUCLEATED RBCS (test code = 70200) 0.00 K/UL 0.00-0.11 COMPREHENSIVE METABOLIC [id number] 02:34:07* Test Item Value Reference Range Interpretation Comme nts GLUCOSE (test code = 2216) 119 MG/DL 70-99 H BUN (test code = 2207) 15 MG/DL 8-23 CREATININE (test code = 2213) 0.93 MG/DL 0.60-1.30 eGFR (2020 CKD-EPI) (test code = ) 64 ML/MIN/1.73 >60 CALC BUN/CREAT (test code = 2234) 16 RATIO 6-28 SODIUM (test code = 2230) 139 MEQ/L 133-146 POTASSIUM (test code = 2227) 4.7 MEQ/L 3.5-5.4 CHLORIDE (test code = 2214) 101 MEQ/L 95-107 CARBON DIOXIDE (test code = 2205) 26 MEQ/L 19-31 CALCIUM (test code = 2208) 10.3 MG/DL 8.5-10.5 PROTEIN, TOTAL (test code = 2228) 7.1 G/DL 6.1-8.3 ALBUMIN (test code = 2200) 4.5 G/DL 3.5-5.2 CALC GLOBULIN (test code = 2239) 2.6 G/DL 1.9-3.7 CALC A/G RATIO (test code = 2233) 1.7 RATIO 1.0-2.6 BILIRUBIN, TOTAL (test code = 2206) 0.4 MG/DL See_Comment [Automated [employer]] The system which generated this result transmitted reference range: <=1.2. The reference range was not used to interpret this result as normal/abnormal. ALKALINE PHOSPHATASE (test code = 2203) 55 U/L 40-142 AST (test code = 2217) 17 U/L 9-40 ALT (test code = 2218) 14 U/L 5-40 HEPATIC FUNCTION [id number] 02:34:07* Test Item Value Reference Range Interpretation Comme nts PROTEIN, TOTAL (test code = 2228) 7.1 G/DL 6.1-8.3 ALBUMIN (test code = 2200) 4.5 G/DL 3.5-5.2 BILIRUBIN, TOTAL (test code = 2206) 0.4 MG/DL See_Comment [Automated [employer]] The system which generated this result transmitted reference range: <=1.2. The reference range was not used to interpret this result as normal/abnormal. BILIRUBIN, DIRECT (test code = 2021) 0.2 MG/DL 0.0-0.3 ALKALINE PHOSPHATASE (test code = 2204) 55 U/L 40-142 AST (test code = 2218) 17 U/L 9-40 ALT (test code = 2219) 14 U/L 5-40 HEMOGLOBIN A1c [ADDED]2021-10-24 00:00:00* Test Item Value Reference Range Interpretation Comme nts HEMOGLOBIN A1c (test code = 43101) 9.3 % Surendra WhiteCOMPREHENSIVE METABOLIC PANEL [ADDED]2021-10-24 00:00:00* Test Item Value Reference Range Interpretation Comme nts GLUCOSE (test code = 221) 119 MG/DL BUN (test code = 2208) 15 MG/DL CREATININE (test code = 2214) 0.93 MG/DL eGFR (2020 CKD-EPI) (test co de = 79333) 64 ML/MIN/1.73 CALC BUN/CREAT (test code = 2235) 16 RATIO SODIUM (test code = 2231) 139 MEQ/L POTASSIUM (test code = 2228) 4.7 MEQ/L CHLORIDE (test code = 2215) 101 MEQ/L CARBON DIOXIDE (test code = 2206) 26 MEQ/L CALCIUM (test code = 2209) 10.3 MG/DL PROTEIN, TOTAL (test code = 2229) 7.1 G/DL ALBUMIN (test code = 2201) 4.5 G/DL CALC GLOBULIN (test code = 2240) 2.6 G/DL CALC A/G RATIO (test code = 2234) 1.7 RATIO BILIRUBIN, TOTAL (test code = 2207) 0.4 MG/DL ALKALINE PHOSPHATASE (test code = 2204) 55 U/L AST (test code = 2218) 17 U/L ALT (test code = 2219) 14 U/L Surendra WhiteCBC W/AUTO DIFF WITH PLATELETS [ADDED]2021-10-24 00:00:00* Test Item Value Reference Range Interpretation Comme nts WBC (test code = 1001) 9.0 K/UL [...] = 1013) 0.6 % IMMATURE GRANULOCYTES (test code = 1036) 0.4 % NUCLEATED RBCS (test code = 1065) 0.0 /100WBC'S PLATELET COUNT (test code = 1015) 304 K/UL ABSOLUTE NEUTROPHILS (test c ode = 1066) 5.32 K/UL ABSOLUTE LYMPHOCYTES (test c ode = 1067) 2.49 K/UL ABSOLUTE MONOCYTES (test cod e = 1068) 0.84 K/UL ABSOLUTE EOSINOPHILS (test c ode = 1040) 0.28 K/UL ABSOLUTE BASOPHILS (test cod e = 1069) 0.05 K/UL ABS IMMATURE GRANULOCYTES (t est code = 1020) 0.04 K/UL ABS NUCLEATED RBCS (test cod e = 13645) 0.00 K/UL Surendra WhiteHEPATIC FUNCTION PANEL [ADDED]2021-10-24 00:00:00* Test Item Value Reference Range Interpretation Comme nts PROTEIN, TOTAL (test code = 2229) 7.1 G/DL ALBUMIN (test code = 2201) 4.5 G/DL BILIRUBIN, TOTAL (test code = 2207) 0.4 MG/DL BILIRUBIN, DIRECT (test code = 2021) 0.2 MG/DL ALKALINE PHOSPHATASE (test c ode = 2204) 55 U/L AST (test code = 2218) 17 U/L ALT (test code = 2219) 14 U/L Surendra WhiteTSH, THIRD GENERATION [ADDED]2021-10-24 00:00:00* Test Item Value Reference Range Interpretation Comme nts TSH, THIRD GENERATION (test code = 2821) 2.700 UIU/ML Surendra WhiteHEMOGLOBIN A1c [ADDED]2021-10-24 00:00:00* Test Item Value Reference Range Interpretation Comme nts HEMOGLOBIN A1c (test code = 08309) 9.3 % Surendra WhiteCOMPREHENSIVE METABOLIC PANEL [ADDED]2021-10-24 00:00:00* Test Item Value Reference Range Interpretation Comme nts GLUCOSE (test code = 2217) 119 MG/DL BUN (test code = 2208) 15 MG/DL CREATININE (test code = 2214) 0.93 MG/DL eGFR (2020 CKD-EPI) (test co de = 34180) 64 ML/MIN/1.73 CALC BUN/CREAT (test code = 2235) 16 RATIO SODIUM (test code = 2231) 139 MEQ/L POTASSIUM (test code = 2228) 4.7 MEQ/L CHLORIDE (test code = 2215) 101 MEQ/L CARBON DIOXIDE (test code = 2206) 26 MEQ/L CALCIUM (test code = 2209) 10.3 MG/DL PROTEIN, TOTAL (test code = 2229) 7.1 G/DL ALBUMIN (test code = 2201) 4.5 G/DL CALC GLOBULIN (test code = 2240) 2.6 G/DL CALC A/G RATIO (test code = 2234) 1.7 RATIO BILIRUBIN, TOTAL (test code = 2207) 0.4 MG/DL ALKALINE PHOSPHATASE (test code = 2204) 55 U/L AST (test code = 2218) 17 U/L ALT (test code = 2219) 14 U/L Surendra WhiteC W/AUTO DIFF WITH PLATELETS [ADDED]2021-10-24 00:00:00* Test Item Value Reference Range Interpretation Comme nts WBC (test code = 1001) 9.0 K/UL [...] = 1013) 0.6 % IMMATURE GRANULOCYTES (test code = 1036) 0.4 % NUCLEATED RBCS (test code = 1065) 0.0 /100WBC'S PLATELET COUNT (test code = 1015) 304 K/UL ABSOLUTE NEUTROPHILS (test c ode = 1066) 5.32 K/UL ABSOLUTE LYMPHOCYTES (test c ode = 1067) 2.49 K/UL ABSOLUTE MONOCYTES (test cod e = 1068) 0.84 K/UL ABSOLUTE EOSINOPHILS (test c ode = 1040) 0.28 K/UL ABSOLUTE BASOPHILS (test cod e = 1069) 0.05 K/UL ABS IMMATURE GRANULOCYTES (t est code = 1020) 0.04 K/UL ABS NUCLEATED RBCS (test cod e = 47006) 0.00 K/UL Surendra WhiteHEPATIC FUNCTION PANEL [ADDED]2021-10-24 00:00:00* Test Item Value Reference Range Interpretation Comme nts PROTEIN, TOTAL (test code = 2229) 7.1 G/DL ALBUMIN (test code = 2201) 4.5 G/DL BILIRUBIN, TOTAL (test code = 2207) 0.4 MG/DL BILIRUBIN, DIRECT (test code = 2021) 0.2 MG/DL ALKALINE PHOSPHATASE (test c ode = 2204) 55 U/L AST (test code = 2218) 17 U/L ALT (test code = 2219) 14 U/L Surendra WhiteTSH, THIRD GENERATION [ADDED]2021-10-24 00:00:00* Test Item Value Reference Range Interpretation Comme nts TSH, THIRD GENERATION (test code = 2821) 2.700 UIU/ML Surendra WhiteHEMOGLOBIN A1c [ADDED]2021-10-24 00:00:00* Test Item Value Reference Range Interpretation Comme nts HEMOGLOBIN A1c (test code = 57151) 9.3 % Surendra WhiteCOMPREHENSIVE METABOLIC PANEL [ADDED]2021-10-24 00:00:00* Test Item Value Reference Range Interpretation Comme nts GLUCOSE (test code = 2217) 119 MG/DL BUN (test code = 2208) 15 MG/DL CREATININE (test code = 2214) 0.93 MG/DL eGFR (2020 CKD-EPI) (test co de = 33428) 64 ML/MIN/1.73 CALC BUN/CREAT (test code = 2235) 16 RATIO SODIUM (test code = 2231) 139 MEQ/L POTASSIUM (test code = 2228) 4.7 MEQ/L CHLORIDE (test code = 2215) 101 MEQ/L CARBON DIOXIDE (test code = 2206) 26 MEQ/L CALCIUM (test code = 2209) 10.3 MG/DL PROTEIN, TOTAL (test code = 2229) 7.1 G/DL ALBUMIN (test code = 2201) 4.5 G/DL CALC GLOBULIN (test code = 2240) 2.6 G/DL CALC A/G RATIO (test code = 2234) 1.7 RATIO BILIRUBIN, TOTAL (test code = 2207) 0.4 MG/DL ALKALINE PHOSPHATASE (test code = 2204) 55 U/L AST (test code = 2218) 17 U/L ALT (test code = 2219) 14 U/L [facility] WITH PLATELETS [ADDED]2021-10-24 00:00:00* Test Item Value Reference Range Interpretation Comme nts WBC (test code = 1001) 9.0 K/UL [...] = 1013) 0.6 % IMMATURE GRANULOCYTES (test code = 1036) 0.4 % NUCLEATED RBCS (test code = 1065) 0.0 /100WBC'S PLATELET COUNT (test code = 1015) 304 K/UL ABSOLUTE NEUTROPHILS (test c ode = 1066) 5.32 K/UL ABSOLUTE LYMPHOCYTES (test c ode = 1067) 2.49 K/UL ABSOLUTE MONOCYTES (test cod e = 1068) 0.84 K/UL ABSOLUTE EOSINOPHILS (test c ode = 1040) 0.28 K/UL ABSOLUTE BASOPHILS (test cod e = 1069) 0.05 K/UL ABS IMMATURE GRANULOCYTES (t est code = 1020) 0.04 K/UL ABS NUCLEATED RBCS (test cod e = 06637) 0.00 K/UL Surendra Ross ChristopherHEPATIC FUNCTION PANEL [ADDED]2021-10-24 00:00:00* Test Item Value Reference Range Interpretation Comme nts PROTEIN, TOTAL (test code = 2229) 7.1 G/DL ALBUMIN (test code = 2201) 4.5 G/DL BILIRUBIN, TOTAL (test code = 2207) 0.4 MG/DL BILIRUBIN, DIRECT (test code = 2021) 0.2 MG/DL ALKALINE PHOSPHATASE (test c ode = 220) 55 U/L AST (test code = 2218) 17 U/L ALT (test code = 2219) 14 U/L Surendra Ross ChristopherTSH, THIRD GENERATION [ADDED]2021-10-24 00:00:00* Test Item Value Reference Range Interpretation Comme nts TSH, THIRD GENERATION (test code = 2821) 2.700 UIU/ML Surendra Ross ChristopherHEMOGLOBIN A1c [ADDED]2021-10-24 00:00:00* Test Item Value Reference Range Interpretation Comme nts HEMOGLOBIN A1c (test code = 92314) 9.3 % Surendra Ross ChristopherCOMPREHENSIVE METABOLIC PANEL [ADDED]2021-10-24 00:00:00* Test Item Value Reference Range Interpretation Comme nts GLUCOSE (test code = 2217) 119 MG/DL BUN (test code = 2208) 15 MG/DL CREATININE (test code = 2214) 0.93 MG/DL eGFR (2020 CKD-EPI) (test co de = 70793) 64 ML/MIN/1.73 CALC BUN/CREAT (test code = 2235) 16 RATIO SODIUM (test code = 2231) 139 MEQ/L POTASSIUM (test code = 2228) 4.7 MEQ/L CHLORIDE (test code = 2215) 101 MEQ/L CARBON DIOXIDE (test code = 2206) 26 MEQ/L CALCIUM (test code = 2209) 10.3 MG/DL PROTEIN, TOTAL (test code = 2229) 7.1 G/DL ALBUMIN (test code = 2201) 4.5 G/DL CALC GLOBULIN (test code = 2240) 2.6 G/DL CALC A/G RATIO (test code = 2234) 1.7 RATIO BILIRUBIN, TOTAL (test code = 2207) 0.4 MG/DL ALKALINE PHOSPHATASE (test code = 2204) 55 U/L AST (test code = 2218) 17 U/L ALT (test code = 2219) 14 U/L Surendra WhiteCBC W/AUTO DIFF WITH PLATELETS [ADDED]2021-10-24 00:00:00* Test Item Value Reference Range Interpretation Comme nts WBC (test code = 1001) 9.0 K/UL [...] = 1013) 0.6 % IMMATURE GRANULOCYTES (test code = 1036) 0.4 % NUCLEATED RBCS (test code = 1065) 0.0 /100WBC'S PLATELET COUNT (test code = 1015) 304 K/UL ABSOLUTE NEUTROPHILS (test c ode = 1066) 5.32 K/UL ABSOLUTE LYMPHOCYTES (test c ode = 1067) 2.49 K/UL ABSOLUTE MONOCYTES (test cod e = 1068) 0.84 K/UL ABSOLUTE EOSINOPHILS (test c ode = 1040) 0.28 K/UL ABSOLUTE BASOPHILS (test cod e = 1069) 0.05 K/UL ABS IMMATURE GRANULOCYTES (t est code = 1020) 0.04 K/UL ABS NUCLEATED RBCS (test cod e = 97446) 0.00 K/UL Surendra WhiteHEPATIC FUNCTION PANEL [ADDED]2021-10-24 00:00:00* Test Item Value Reference Range Interpretation Comme nts PROTEIN, TOTAL (test code = 2229) 7.1 G/DL ALBUMIN (test code = 2201) 4.5 G/DL BILIRUBIN, TOTAL (test code = 2207) 0.4 MG/DL BILIRUBIN, DIRECT (test code = 2021) 0.2 MG/DL ALKALINE PHOSPHATASE (test c ode = 2204) 55 U/L AST (test code = 2218) 17 U/L ALT (test code = 2219) 14 U/L Surendra RodriguezH, THIRD GENERATION [ADDED]2021-10-24 00:00:00* Test Item Value Reference Range Interpretation Comme carmen TSH, THIRD GENERATION (test code = 2821) 2.700 UIU/ML Surendra WhiteHEMOGLOBIN A1c [ADDED]2021-10-24 00:00:00* Test Item Value Reference Range Interpretation Comme nts HEMOGLOBIN A1c (test code = 05739) 9.3 % Surendra WhiteCOMPREHENSIVE METABOLIC PANEL [ADDED]2021-10-24 00:00:00* Test Item Value Reference Range Interpretation Comme nts GLUCOSE (test code = 2217) 119 MG/DL BUN (test code = 2208) 15 MG/DL CREATININE (test code = 2214) 0.93 MG/DL eGFR (2020 CKD-EPI) (test co de = 41445) 64 ML/MIN/1.73 CALC BUN/CREAT (test code = 2235) 16 RATIO SODIUM (test code = 2231) 139 MEQ/L POTASSIUM (test code = 2228) 4.7 MEQ/L CHLORIDE (test code = 2215) 101 MEQ/L CARBON DIOXIDE (test code = 2206) 26 MEQ/L CALCIUM (test code = 2209) 10.3 MG/DL PROTEIN, TOTAL (test code = 2229) 7.1 G/DL ALBUMIN (test code = 2201) 4.5 G/DL CALC GLOBULIN (test code = 2240) 2.6 G/DL CALC A/G RATIO (test code = 2234) 1.7 RATIO BILIRUBIN, TOTAL (test code = 2207) 0.4 MG/DL ALKALINE PHOSPHATASE (test code = 2204) 55 U/L AST (test code = 2218) 17 U/L ALT (test code = 2219) 14 U/L Surendra WhiteCBC W/AUTO DIFF WITH PLATELETS [ADDED]2021-10-24 00:00:00* Test Item Value Reference Range Interpretation Comme nts WBC (test code = 1001) 9.0 K/UL [...] = 1013) 0.6 % IMMATURE GRANULOCYTES (test code = 1036) 0.4 % NUCLEATED RBCS (test code = 1065) 0.0 /100WBC'S PLATELET COUNT (test code = 1015) 304 K/UL ABSOLUTE NEUTROPHILS (test c ode = 1066) 5.32 K/UL ABSOLUTE LYMPHOCYTES (test c ode = 1067) 2.49 K/UL ABSOLUTE MONOCYTES (test cod e = 1068) 0.84 K/UL ABSOLUTE EOSINOPHILS (test c ode = 1040) 0.28 K/UL ABSOLUTE BASOPHILS (test cod e = 1069) 0.05 K/UL ABS IMMATURE GRANULOCYTES (t est code = 1020) 0.04 K/UL ABS NUCLEATED RBCS (test cod e = 03096) 0.00 K/UL Surendra WhiteHEPATIC FUNCTION PANEL [ADDED]2021-10-24 00:00:00* Test Item Value Reference Range Interpretation Comme nts PROTEIN, TOTAL (test code = 2229) 7.1 G/DL ALBUMIN (test code = 2201) 4.5 G/DL BILIRUBIN, TOTAL (test code = 2207) 0.4 MG/DL BILIRUBIN, DIRECT (test code = 2021) 0.2 MG/DL ALKALINE PHOSPHATASE (test c ode = 2204) 55 U/L AST (test code = 2218) 17 U/L ALT (test code = 2219) 14 U/L Surendra WhiteTSH, THIRD GENERATION [ADDED]2021-10-24 00:00:00* Test Item Value Reference Range Interpretation Comme nts TSH, THIRD GENERATION (test code = 2821) 2.700 UIU/ML Surendra WhiteHEMOGLOBIN A1c [ADDED]2021-10-24 00:00:00* Test Item Value Reference Range Interpretation Comme nts HEMOGLOBIN A1c (test code = 35765) 9.3 % Surendra F AustinCOMPREHENSIVE METABOLIC PANEL [ADDED]2021-10-24 00:00:00* Test Item Value Reference Range Interpretation Comme nts GLUCOSE (test code = 2217) 119 MG/DL BUN (test code = 2208) 15 MG/DL CREATININE (test code = 2214) 0.93 MG/DL eGFR (2020 CKD-EPI) (test co de = 67405) 64 ML/MIN/1.73 CALC BUN/CREAT (test code = 2235) 16 RATIO SODIUM (test code = 2231) 139 MEQ/L POTASSIUM (test code = 2228) 4.7 MEQ/L CHLORIDE (test code = 2215) 101 MEQ/L CARBON DIOXIDE (test code = 2206) 26 MEQ/L CALCIUM (test code = 2209) 10.3 MG/DL PROTEIN, TOTAL (test code = 2229) 7.1 G/DL ALBUMIN (test code = 2201) 4.5 G/DL CALC GLOBULIN (test code = 2240) 2.6 G/DL CALC A/G RATIO (test code = 2234) 1.7 RATIO BILIRUBIN, TOTAL (test code = 2207) 0.4 MG/DL ALKALINE PHOSPHATASE (test code = 2204) 55 U/L AST (test code = 2218) 17 U/L ALT (test code = 2219) 14 U/L Surendra WhiteCBC W/AUTO DIFF WITH PLATELETS [ADDED]2021-10-24 00:00:00* Test Item Value Reference Range Interpretation Comme nts WBC (test code = 1001) 9.0 K/UL [...] = 1013) 0.6 % IMMATURE GRANULOCYTES (test code = 1036) 0.4 % NUCLEATED RBCS (test code = 1065) 0.0 /100WBC'S PLATELET COUNT (test code = 1015) 304 K/UL ABSOLUTE NEUTROPHILS (test c ode = 1066) 5.32 K/UL ABSOLUTE LYMPHOCYTES (test c ode = 1067) 2.49 K/UL ABSOLUTE MONOCYTES (test cod e = 1068) 0.84 K/UL ABSOLUTE EOSINOPHILS (test c ode = 1040) 0.28 K/UL ABSOLUTE BASOPHILS (test cod e = 1069) 0.05 K/UL ABS IMMATURE GRANULOCYTES (t est code = 1020) 0.04 K/UL ABS NUCLEATED RBCS (test cod e = 41774) 0.00 K/UL Surendra WhiteHEPATIC FUNCTION PANEL [ADDED]2021-10-24 00:00:00* Test Item Value Reference Range Interpretation Comme nts PROTEIN, TOTAL (test code = 2229) 7.1 G/DL ALBUMIN (test code = 2201) 4.5 G/DL BILIRUBIN, TOTAL (test code = 2207) 0.4 MG/DL BILIRUBIN, DIRECT (test code = 2021) 0.2 MG/DL ALKALINE PHOSPHATASE (test c ode = 2204) 55 U/L AST (test code = 2218) 17 U/L ALT (test code = 2219) 14 U/L Surendra RodriguezH, THIRD GENERATION [ADDED]2021-10-24 00:00:00* Test Item Value Reference Range Interpretation Comme nts TSH, THIRD GENERATION (test code = 2821) 2.700 UIU/ML Surendra WhiteHEMOGLOBIN A1c [ADDED]2021-10-24 00:00:00* Test Item Value Reference Range Interpretation Comme nts HEMOGLOBIN A1c (test code = 20676) 9.3 % Surendra WhiteCOMPREHENSIVE METABOLIC PANEL [ADDED]2021-10-24 00:00:00* Test Item Value Reference Range Interpretation Comme nts GLUCOSE (test code = 2217) 119 MG/DL BUN (test code = 2208) 15 MG/DL CREATININE (test code = 2214) 0.93 MG/DL eGFR (2020 CKD-EPI) (test co de = 77773) 64 ML/MIN/1.73 CALC BUN/CREAT (test code = 2235) 16 RATIO SODIUM (test code = 2231) 139 MEQ/L POTASSIUM (test code = 2228) 4.7 MEQ/L CHLORIDE (test code = 2215) 101 MEQ/L CARBON DIOXIDE (test code = 2206) 26 MEQ/L CALCIUM (test code = 2209) 10.3 MG/DL PROTEIN, TOTAL (test code = 2229) 7.1 G/DL ALBUMIN (test code = 2201) 4.5 G/DL CALC GLOBULIN (test code = 2240) 2.6 G/DL CALC A/G RATIO (test code = 2234) 1.7 RATIO BILIRUBIN, TOTAL (test code = 2207) 0.4 MG/DL ALKALINE PHOSPHATASE (test code = 2204) 55 U/L AST (test code = 2218) 17 U/L ALT (test code = 2219) 14 U/L [facility]FF WITH PLATELETS [ADDED]2021-10-24 00:00:00* Test Item Value Reference Range Interpretation Comme nts WBC (test code = 1001) 9.0 K/UL [...] = 1013) 0.6 % IMMATURE GRANULOCYTES (test code = 1036) 0.4 % NUCLEATED RBCS (test code = 1065) 0.0 /100WBC'S PLATELET COUNT (test code = 1015) 304 K/UL ABSOLUTE NEUTROPHILS (test c ode = 1066) 5.32 K/UL ABSOLUTE LYMPHOCYTES (test c ode = 1067) 2.49 K/UL ABSOLUTE MONOCYTES (test cod e = 1068) 0.84 K/UL ABSOLUTE EOSINOPHILS (test c ode = 1040) 0.28 K/UL ABSOLUTE BASOPHILS (test cod e = 1069) 0.05 K/UL ABS IMMATURE GRANULOCYTES (t est code = 1020) 0.04 K/UL ABS NUCLEATED RBCS (test cod e = 66454) 0.00 K/UL Surendra Vandana ChristopherHEPATIC FUNCTION PANEL [ADDED]2021-10-24 00:00:00* Test Item Value Reference Range Interpretation Comme nts PROTEIN, TOTAL (test code = 2229) 7.1 G/DL ALBUMIN (test code = 2201) 4.5 G/DL BILIRUBIN, TOTAL (test code = 2207) 0.4 MG/DL BILIRUBIN, DIRECT (test code = 2021) 0.2 MG/DL ALKALINE PHOSPHATASE (test c ode = 220) 55 U/L AST (test code = 2218) 17 U/L ALT (test code = 2219) 14 U/L Surendra Ross ChristopherTSH, THIRD GENERATION [ADDED]2021-10-24 00:00:00* Test Item Value Reference Range Interpretation Comme nts TSH, THIRD GENERATION (test code = 2821) 2.700 UIU/ML Surendra Vandana ChristopherHEMOGLOBIN A1c [ADDED]2021-10-24 00:00:00* Test Item Value Reference Range Interpretation Comme nts HEMOGLOBIN A1c (test code = 76311) 9.3 % Surendra Ross ChristopherCOMPREHENSIVE METABOLIC PANEL [ADDED]2021-10-24 00:00:00* Test Item Value Reference Range Interpretation Comme nts GLUCOSE (test code = 2217) 119 MG/DL BUN (test code = 2208) 15 MG/DL CREATININE (test code = 2214) 0.93 MG/DL eGFR (2020 CKD-EPI) (test co de = 70309) 64 ML/MIN/1.73 CALC BUN/CREAT (test code = 2235) 16 RATIO SODIUM (test code = 2231) 139 MEQ/L POTASSIUM (test code = 2228) 4.7 MEQ/L CHLORIDE (test code = 2215) 101 MEQ/L CARBON DIOXIDE (test code = 2206) 26 MEQ/L CALCIUM (test code = 2209) 10.3 MG/DL PROTEIN, TOTAL (test code = 2229) 7.1 G/DL ALBUMIN (test code = 2201) 4.5 G/DL CALC GLOBULIN (test code = 2240) 2.6 G/DL CALC A/G RATIO (test code = 2234) 1.7 RATIO BILIRUBIN, TOTAL (test code = 2207) 0.4 MG/DL ALKALINE PHOSPHATASE (test code = 2204) 55 U/L AST (test code = 2218) 17 U/L ALT (test code = 2219) 14 U/L Surendra WhiteCBC W/AUTO DIFF WITH PLATELETS [ADDED]2021-10-24 00:00:00* Test Item Value Reference Range Interpretation Comme nts WBC (test code = 1001) 9.0 K/UL [...] = 1013) 0.6 % IMMATURE GRANULOCYTES (test code = 1036) 0.4 % NUCLEATED RBCS (test code = 1065) 0.0 /100WBC'S PLATELET COUNT (test code = 1015) 304 K/UL ABSOLUTE NEUTROPHILS (test c ode = 1066) 5.32 K/UL ABSOLUTE LYMPHOCYTES (test c ode = 1067) 2.49 K/UL ABSOLUTE MONOCYTES (test cod e = 1068) 0.84 K/UL ABSOLUTE EOSINOPHILS (test c ode = 1040) 0.28 K/UL ABSOLUTE BASOPHILS (test cod e = 1069) 0.05 K/UL ABS IMMATURE GRANULOCYTES (t est code = 1020) 0.04 K/UL ABS NUCLEATED RBCS (test cod e = 63125) 0.00 K/UL Surendra WhiteHEPATIC FUNCTION PANEL [ADDED]2021-10-24 00:00:00* Test Item Value Reference Range Interpretation Comme nts PROTEIN, TOTAL (test code = 2229) 7.1 G/DL ALBUMIN (test code = 2201) 4.5 G/DL BILIRUBIN, TOTAL (test code = 7) 0.4 MG/DL BILIRUBIN, DIRECT (test code = 2021) 0.2 MG/DL ALKALINE PHOSPHATASE (test c ode = 2204) 55 U/L AST (test code = 2218) 17 U/L ALT (test code = 2219) 14 U/L Surendra RodriguezH, THIRD GENERATION [ADDED]2021-10-24 00:00:00* Test Item Value Reference Range Interpretation Comme nts TSH, THIRD GENERATION (test code = 2821) 2.700 UIU/ML Surendra WhiteHEMOGLOBIN A1c [ADDED]2021-10-24 00:00:00* Test Item Value Reference Range Interpretation Comme nts HEMOGLOBIN A1c (test code = 70922) 9.3 % COMPREHENSIVE METABOLIC PANEL [ADDED]2021-10-24 00:00:00* Test Item Value Reference Range Interpretation Comme nts GLUCOSE (test code = 2217) 119 MG/DL BUN (test code = 2208) 15 MG/DL CREATININE (test code = 2214) 0.93 MG/DL eGFR (2020 CKD-EPI) (test co de = 67762) 64 ML/MIN/1.73 CALC BUN/CREAT (test code = 2235) 16 RATIO SODIUM (test code = 2231) 139 MEQ/L POTASSIUM (test code = 2228) 4.7 MEQ/L CHLORIDE (test code = 2215) 101 MEQ/L CARBON DIOXIDE (test code = 2206) 26 MEQ/L CALCIUM (test code = 2209) 10.3 MG/DL PROTEIN, TOTAL (test code = 2229) 7.1 G/DL ALBUMIN (test code = 2201) 4.5 G/DL CALC GLOBULIN (test code = 2240) 2.6 G/DL CALC A/G RATIO (test code = 2234) 1.7 RATIO BILIRUBIN, TOTAL (test code = 2207) 0.4 MG/DL ALKALINE PHOSPHATASE (test code = 2204) 55 U/L AST (test code = 2218) 17 U/L ALT (test code = 2219) 14 U/L CBC W/AUTO DIFF WITH PLATELETS [ADDED]2021-10-24 00:00:00* Test Item Value Reference Range Interpretation Comme nts WBC (test code = 1001) 9.0 K/UL [...] = 1013) 0.6 % IMMATURE GRANULOCYTES (test code = 1036) 0.4 % NUCLEATED RBCS (test code = 1065) 0.0 /100WBC'S PLATELET COUNT (test code = 1015) 304 K/UL ABSOLUTE NEUTROPHILS (test c ode = 1066) 5.32 K/UL ABSOLUTE LYMPHOCYTES (test c ode = 1067) 2.49 K/UL ABSOLUTE MONOCYTES (test cod e = 1068) 0.84 K/UL ABSOLUTE EOSINOPHILS (test c ode = 1040) 0.28 K/UL ABSOLUTE BASOPHILS (test cod e = 1069) 0.05 K/UL ABS IMMATURE GRANULOCYTES (t est code = 1020) 0.04 K/UL ABS NUCLEATED RBCS (test cod e = 56396) 0.00 K/UL HEPATIC FUNCTION PANEL [ADDED]2021-10-24 00:00:00* Test Item Value Reference Range Interpretation Comme nts PROTEIN, TOTAL (test code = 2229) 7.1 G/DL ALBUMIN (test code = 2201) 4.5 G/DL BILIRUBIN, TOTAL (test code = 2207) 0.4 MG/DL BILIRUBIN, DIRECT (test code = 2021) 0.2 MG/DL ALKALINE PHOSPHATASE (test c ode = 2204) 55 U/L AST (test code = 2218) 17 U/L ALT (test code = 2219) 14 U/L TSH, THIRD GENERATION [ADDED]2021-10-24 00:00:00* Test Item Value Reference Range Interpretation Comme nts TSH, THIRD GENERATION (test code = 2821) 2.700 UIU/ML HEMOGLOBIN A1c [ADDED]2021-10-24 00:00:00* Test Item Value Reference Range Interpretation Comme nts HEMOGLOBIN A1c (test code = 57794) 9.3 % COMPREHENSIVE METABOLIC PANEL [ADDED]2021-10-24 00:00:00* Test Item Value Reference Range Interpretation Comme nts GLUCOSE (test code = 2217) 119 MG/DL BUN (test code = 2208) 15 MG/DL CREATININE (test code = 2214) 0.93 MG/DL eGFR (2020 CKD-EPI) (test co de = 81671) 64 ML/MIN/1.73 CALC BUN/CREAT (test code = 2235) 16 RATIO SODIUM (test code = 2231) 139 MEQ/L POTASSIUM (test code = 2228) 4.7 MEQ/L CHLORIDE (test code = 2215) 101 MEQ/L CARBON DIOXIDE (test code = 2206) 26 MEQ/L CALCIUM (test code = 2209) 10.3 MG/DL PROTEIN, TOTAL (test code = 2229) 7.1 G/DL ALBUMIN (test code = 2201) 4.5 G/DL CALC GLOBULIN (test code = 2240) 2.6 G/DL CALC A/G RATIO (test code = 2234) 1.7 RATIO BILIRUBIN, TOTAL (test code = 2207) 0.4 MG/DL ALKALINE PHOSPHATASE (test code = 2204) 55 U/L AST (test code = 2218) 17 U/L ALT (test code = 2219) 14 U/L CBC W/AUTO DIFF WITH PLATELETS [ADDED]2021-10-24 00:00:00* Test Item Value Reference Range Interpretation Comme nts WBC (test code = 1001) 9.0 K/UL [...] = 1013) 0.6 % IMMATURE GRANULOCYTES (test code = 1036) 0.4 % NUCLEATED RBCS (test code = 1065) 0.0 /100WBC'S PLATELET COUNT (test code = 1015) 304 K/UL ABSOLUTE NEUTROPHILS (test c ode = 1066) 5.32 K/UL ABSOLUTE LYMPHOCYTES (test c ode = 1067) 2.49 K/UL ABSOLUTE MONOCYTES (test cod e = 1068) 0.84 K/UL ABSOLUTE EOSINOPHILS (test c ode = 1040) 0.28 K/UL ABSOLUTE BASOPHILS (test cod e = 1069) 0.05 K/UL ABS IMMATURE GRANULOCYTES (t est code = 1020) 0.04 K/UL ABS NUCLEATED RBCS (test cod e = 70099) 0.00 K/UL HEPATIC FUNCTION PANEL [ADDED]2021-10-24 00:00:00* Test Item Value Reference Range Interpretation Comme nts PROTEIN, TOTAL (test code = 2229) 7.1 G/DL ALBUMIN (test code = 2201) 4.5 G/DL BILIRUBIN, TOTAL (test code = 2207) 0.4 MG/DL BILIRUBIN, DIRECT (test code = 2021) 0.2 MG/DL ALKALINE PHOSPHATASE (test c ode = 2204) 55 U/L AST (test code = 2218) 17 U/L ALT (test code = 2219) 14 U/L TSH, THIRD GENERATION [ADDED]2021-10-24 00:00:00* Test Item Value Reference Range Interpretation Comme nts TSH, THIRD GENERATION (test code = 2821) 2.700 UIU/ML HEMOGLOBIN A1c [ADDED]2021-10-24 00:00:00* Test Item Value Reference Range Interpretation Comme nts HEMOGLOBIN A1c (test code = 65123) 9.3 % COMPREHENSIVE METABOLIC PANEL [ADDED]2021-10-24 00:00:00* Test Item Value Reference Range Interpretation Comme nts GLUCOSE (test code = 2217) 119 MG/DL BUN (test code = 2208) 15 MG/DL CREATININE (test code = 2214) 0.93 MG/DL eGFR (2020 CKD-EPI) (test co de = 82630) 64 ML/MIN/1.73 CALC BUN/CREAT (test code = 2235) 16 RATIO SODIUM (test code = 2231) 139 MEQ/L POTASSIUM (test code = 2228) 4.7 MEQ/L CHLORIDE (test code = 2215) 101 MEQ/L CARBON DIOXIDE (test code = 2206) 26 MEQ/L CALCIUM (test code = 2209) 10.3 MG/DL PROTEIN, TOTAL (test code = 2229) 7.1 G/DL ALBUMIN (test code = 2201) 4.5 G/DL CALC GLOBULIN (test code = 2240) 2.6 G/DL CALC A/G RATIO (test code = 2234) 1.7 RATIO BILIRUBIN, TOTAL (test code = 2207) 0.4 MG/DL ALKALINE PHOSPHATASE (test code = 2204) 55 U/L AST (test code = 2218) 17 U/L ALT (test code = 2219) 14 U/L CBC W/AUTO DIFF WITH PLATELETS [ADDED]2021-10-24 00:00:00* Test Item Value Reference Range Interpretation Comme nts WBC (test code = 1001) 9.0 K/UL [...] = 1013) 0.6 % IMMATURE GRANULOCYTES (test code = 1036) 0.4 % NUCLEATED RBCS (test code = 1065) 0.0 /100WBC'S PLATELET COUNT (test code = 1015) 304 K/UL ABSOLUTE NEUTROPHILS (test c ode = 1066) 5.32 K/UL ABSOLUTE LYMPHOCYTES (test c ode = 1067) 2.49 K/UL ABSOLUTE MONOCYTES (test cod e = 1068) 0.84 K/UL ABSOLUTE EOSINOPHILS (test c ode = 1040) 0.28 K/UL ABSOLUTE BASOPHILS (test cod e = 1069) 0.05 K/UL ABS IMMATURE GRANULOCYTES (t est code = 1020) 0.04 K/UL ABS NUCLEATED RBCS (test cod e = 20871) 0.00 K/UL HEPATIC FUNCTION PANEL [ADDED]2021-10-24 00:00:00* Test Item Value Reference Range Interpretation Comme nts PROTEIN, TOTAL (test code = 2229) 7.1 G/DL ALBUMIN (test code = 2201) 4.5 G/DL BILIRUBIN, TOTAL (test code = 2207) 0.4 MG/DL BILIRUBIN, DIRECT (test code = 2021) 0.2 MG/DL ALKALINE PHOSPHATASE (test c ode = 2204) 55 U/L AST (test code = 2218) 17 U/L ALT (test code = 2219) 14 U/L TSH, THIRD GENERATION [ADDED]2021-10-24 00:00:00* Test Item Value Reference Range Interpretation Comme nts TSH, THIRD GENERATION (test code = 2821) 2.700 UIU/ML HEMOGLOBIN A1c [ADDED]2021-10-24 00:00:00* Test Item Value Reference Range Interpretation Comme nts HEMOGLOBIN A1c (test code = 58941) 9.3 % COMPREHENSIVE METABOLIC PANEL [ADDED]2021-10-24 00:00:00* Test Item Value Reference Range Interpretation Comme nts GLUCOSE (test code = 2217) 119 MG/DL BUN (test code = 2208) 15 MG/DL CREATININE (test code = 2214) 0.93 MG/DL eGFR (2020 CKD-EPI) (test co de = 91734) 64 ML/MIN/1.73 CALC BUN/CREAT (test code = 2235) 16 RATIO SODIUM (test code = 2231) 139 MEQ/L POTASSIUM (test code = 2228) 4.7 MEQ/L CHLORIDE (test code = 2215) 101 MEQ/L CARBON DIOXIDE (test code = 2206) 26 MEQ/L CALCIUM (test code = 2209) 10.3 MG/DL PROTEIN, TOTAL (test code = 2229) 7.1 G/DL ALBUMIN (test code = 2201) 4.5 G/DL CALC GLOBULIN (test code = 2240) 2.6 G/DL CALC A/G RATIO (test code = 2234) 1.7 RATIO BILIRUBIN, TOTAL (test code = 2207) 0.4 MG/DL ALKALINE PHOSPHATASE (test code = 2204) 55 U/L AST (test code = 2218) 17 U/L ALT (test code = 2219) 14 U/L CBC W/AUTO DIFF WITH PLATELETS [ADDED]2021-10-24 00:00:00* Test Item Value Reference Range Interpretation Comme nts WBC (test code = 1001) 9.0 K/UL [...] = 1013) 0.6 % IMMATURE GRANULOCYTES (test code = 1036) 0.4 % NUCLEATED RBCS (test code = 1065) 0.0 /100WBC'S PLATELET COUNT (test code = 1015) 304 K/UL ABSOLUTE NEUTROPHILS (test c ode = 1066) 5.32 K/UL ABSOLUTE LYMPHOCYTES (test c ode = 1067) 2.49 K/UL ABSOLUTE MONOCYTES (test cod e = 1068) 0.84 K/UL ABSOLUTE EOSINOPHILS (test c ode = 1040) 0.28 K/UL ABSOLUTE BASOPHILS (test cod e = 1069) 0.05 K/UL ABS IMMATURE GRANULOCYTES (t est code = 1020) 0.04 K/UL ABS NUCLEATED RBCS (test cod e = 19314) 0.00 K/UL HEPATIC FUNCTION PANEL [ADDED]2021-10-24 00:00:00* Test Item Value Reference Range Interpretation Comme nts PROTEIN, TOTAL (test code = 2229) 7.1 G/DL ALBUMIN (test code = 2201) 4.5 G/DL BILIRUBIN, TOTAL (test code = 2207) 0.4 MG/DL BILIRUBIN, DIRECT (test code = 2021) 0.2 MG/DL ALKALINE PHOSPHATASE (test c ode = 2204) 55 U/L AST (test code = 2218) 17 U/L ALT (test code = 2219) 14 U/L TSH, THIRD GENERATION [ADDED]2021-10-24 00:00:00* Test Item Value Reference Range Interpretation Comme nts TSH, THIRD GENERATION (test code = 2821) 2.700 UIU/ML URINE CULTURE, NO [id number] 11:52:08SPECIMEN NUMBER: [id number] URINE CULTURE, NO SENS SPECIMEN NUMBER: [id number] SPECIMEN COMMENT: URINE SOURCE: URINE REPORT STATUS: FINAL ISOLATE NUMBER 1: ORGANISM: 06/21/2021 >100,000 CFU/ML GRAM NEGATIVE BACILLI IDENTIFICATION: 06/22/2021 ESCHERICHIA COLI E. COLI AMOXICILLIN/CASENSITIVE <=8/4AMPICILLIN SENSITIVE <=8CEFAZOLIN SENSITIVE <=2CEFTRIAXONE SENSITIVE <=1CIPROFLOXACIN RESISTANT >2LEVOFLOXACIN RESISTANT >4NITROFURANTOIN SENSITIVE <=32PIP/TAZOBACSENSITIVE <=16TETRACYCLINE RESISTANT >8TOBRAMYCIN SENSITIVE <=4TRIMETH/SULFA SENSITIVE <=2/38 NOTE: NUMBERS DISPLAYED REPRESENT MINIMUM INHIBITORY CONCENTRATION (JACOB) WHICH IS EXPRESSED IN MCG/ML. UNLESS OTHERWISE INDICATED, ALL TESTING PERFORMED [facility] [employer], [facility]. [address] [place] [address] TIP PUNCHER: JANUSZ JJ M.D. CLIA NUMBER [id number] [facility] [place]. [id number] URINE CULTURE, NO [id number] 00:00:00* Test Item Value Reference Range Interpretation Comme nts URINE CULTURE, NO SENS (test code = 92994) SPECIMEN NUMBER: [id number] Surendra Guardado CULTURE, NO [id number] 00:00:00* Test Item Value Reference Range Interpretation Comme nts URINE CULTURE, NO SENS (test code = 46517) SPECIMEN NUMBER: [id number] Surendra WhiteURINE CULTURE, NO [id number] 00:00:00* Test Item Value Reference Range Interpretation Comme nts URINE CULTURE, NO SENS (test code = 85900) SPECIMEN NUMBER: [id number] Surendra WhiteURINE CULTURE, NO [id number] 00:00:00* Test Item Value Reference Range Interpretation Comme nts URINE CULTURE, NO SENS (test code = 31970) SPECIMEN NUMBER: [id number] Surendra Guardado CULTURE, NO [id number] 00:00:00* Test Item Value Reference Range Interpretation Comme nts URINE CULTURE, NO SENS (test code = 47685) SPECIMEN NUMBER: [id number] Surendra F AustinURINE CULTURE, NO [id number] 00:00:00* Test Item Value Reference Range Interpretation Comme nts URINE CULTURE, NO SENS (test code = 82591) SPECIMEN NUMBER: [id number] Surendra WhiteURINE CULTURE, NO [id number] 00:00:00* Test Item Value Reference Range Interpretation Comme nts URINE CULTURE, NO SENS (test code = 92684) SPECIMEN NUMBER: [id number] Surendra WhiteURINE CULTURE, NO [id number] 00:00:00* Test Item Value Reference Range Interpretation Comme nts URINE CULTURE, NO SENS (test code = 66419) SPECIMEN NUMBER: [id number] Surendra WhiteURINE CULTURE, NO [id number] 00:00:00* Test Item Value Reference Range Interpretation Comme nts URINE CULTURE, NO SENS (test code = 54733) SPECIMEN NUMBER: [id number] URINE CULTURE, NO [id number] 00:00:00* Test Item Value Reference Range Interpretation Comme nts URINE CULTURE, NO SENS (test code = 75029) SPECIMEN NUMBER: [id number] URINE CULTURE, NO [id number] 00:00:00* Test Item Value Reference Range Interpretation Comme nts URINE CULTURE, NO SENS (test code = 66302) SPECIMEN NUMBER: [id number] URINE CULTURE, NO [id number] 00:00:00* Test Item Value Reference Range Interpretation Comme nts URINE CULTURE, NO SENS (test code = 98502) SPECIMEN NUMBER: [id number] CULTURE, [id number] 00:00:00* Test Item Value Reference Range Interpretation Comme nts CULTURE, URINE (test code = 26578) SPECIMEN NUMBER: [id number] Surendra WhiteCULTURE, [id number] 00:00:00* Test Item Value Reference Range Interpretation Comme nts CULTURE, URINE (test code = 48297) SPECIMEN NUMBER: [id number] Surendra WhiteCULTURE, [id number] 00:00:00* Test Item Value Reference Range Interpretation Comme nts CULTURE, URINE (test code = 16003) SPECIMEN NUMBER: [id number] Surendra WhiteCULTURE, [id number] 00:00:00* Test Item Value Reference Range Interpretation Comme nts CULTURE, URINE (test code = 69537) SPECIMEN NUMBER: [id number] Surendra SilveiraLTURE, [id number] 00:00:00* Test Item Value Reference Range Interpretation Comme nts CULTURE, URINE (test code = 58032) SPECIMEN NUMBER: [id number] Surendra SilveiraLTMARCELLO, [id number] 00:00:00* Test Item Value Reference Range Interpretation Comme nts CULTURE, URINE (test code = 31214) SPECIMEN NUMBER: [id number] Surendra SilveiraLTMARCELLO, [id number] 00:00:00* Test Item Value Reference Range Interpretation Comme nts CULTURE, URINE (test code = 59310) SPECIMEN NUMBER: [id number] Surendra SilveiraLTMARCELLO, [id number] 00:00:00* Test Item Value Reference Range Interpretation Comme nts CULTURE, URINE (test code = 85673) SPECIMEN NUMBER: [id number] Surendra SilveiraLTMARCELLO, [id number] 00:00:00* Test Item Value Reference Range Interpretation Comme nts CULTURE, URINE (test code = 32445) SPECIMEN NUMBER: [id number] CULTURE, [id number] 00:00:00* Test Item Value Reference Range Interpretation Comme nts CULTURE, URINE (test code = 25702) SPECIMEN NUMBER: [id number] CULTURE, [id number] 00:00:00* Test Item Value Reference Range Interpretation Comme nts CULTURE, URINE (test code = 46748) SPECIMEN NUMBER: [id number] CULTURE, [id number] 00:00:00* Test Item Value Reference Range Interpretation Comme nts CULTURE, URINE (test code = 81740) SPECIMEN NUMBER: [id number] LIPID [id number] 00:00:00* Test Item Value Reference Range Interpretation Comme nts CHOLESTEROL (test code = 2210) 178 MG/DL TRIGLYCERIDES (test code = 2232) 154 MG/DL HDL CHOLESTEROL (test code = 2220) 52 MG/DL CALC LDL CHOL (test code = 2237) 100 MG/DL RISK RATIO LDL/HDL (test cod e = 2238) 1.92 RATIO Surendra WihteCOMPREHENSIVE METABOLIC [id number] 00:00:00* Test Item Value Reference Range Interpretation Comme nts GLUCOSE (test code = 2217) 140 MG/DL BUN (test code = 2208) 24 MG/DL CREATININE (test code = 2214) 0.92 MG/DL eGFR AMER. (test cod e = 41668) 71 ML/MIN/1.73 eGFR NON- AMER. (test code = 66525) 61 ML/MIN/1.73 CALC BUN/CREAT (test code = 2235) 26 RATIO SODIUM (test code = 2231) 140 MEQ/L POTASSIUM (test code = 2228) 5.0 MEQ/L CHLORIDE (test code = 2215) 98 MEQ/L CARBON DIOXIDE (test code = 2206) 28 MEQ/L CALCIUM (test code = 2209) 10.3 MG/DL PROTEIN, TOTAL (test code = 2229) 7.3 G/DL ALBUMIN (test code = 2201) 4.5 G/DL CALC GLOBULIN (test code = 2240) 2.8 G/DL CALC A/G RATIO (test code = 2234) 1.6 RATIO BILIRUBIN, TOTAL (test code = 2207) 0.3 MG/DL ALKALINE PHOSPHATASE (test code = 2204) 56 U/L AST (test code = 2218) 25 U/L ALT (test code = 2219) 20 U/L Surendra WhiteHEMOGLOBIN [id number] 00:00:00* Test Item Value Reference Range Interpretation Comme nts HEMOGLOBIN A1c (test code = 21940) 9.2 % Surendra WhiteLIPID [id number] 00:00:00* Test Item Value Reference Range Interpretation Comme nts CHOLESTEROL (test code = 2210) 178 MG/DL TRIGLYCERIDES (test code = 2232) 154 MG/DL HDL CHOLESTEROL (test code = 2220) 52 MG/DL CALC LDL CHOL (test code = 2237) 100 MG/DL RISK RATIO LDL/HDL (test cod e = 2238) 1.92 RATIO Surendra WhiteCOMPREHENSIVE METABOLIC [id number] 00:00:00* Test Item Value Reference Range Interpretation Comme nts GLUCOSE (test code = 2217) 140 MG/DL BUN (test code = 2208) 24 MG/DL CREATININE (test code = 2214) 0.92 MG/DL eGFR AMER. (test cod e = 94553) 71 ML/MIN/1.73 eGFR NON- AMER. (test code = 45406) 61 ML/MIN/1.73 CALC BUN/CREAT (test code = 2235) 26 RATIO SODIUM (test code = 2231) 140 MEQ/L POTASSIUM (test code = 2228) 5.0 MEQ/L CHLORIDE (test code = 2215) 98 MEQ/L CARBON DIOXIDE (test code = 2206) 28 MEQ/L CALCIUM (test code = 2209) 10.3 MG/DL PROTEIN, TOTAL (test code = 2229) 7.3 G/DL ALBUMIN (test code = 2201) 4.5 G/DL CALC GLOBULIN (test code = 2240) 2.8 G/DL CALC A/G RATIO (test code = 2234) 1.6 RATIO BILIRUBIN, TOTAL (test code = 2207) 0.3 MG/DL ALKALINE PHOSPHATASE (test code = 2204) 56 U/L AST (test code = 2218) 25 U/L ALT (test code = 2219) 20 U/L Surendra WhiteHEMOGLOBIN [id number] 00:00:00* Test Item Value Reference Range Interpretation Comme nts HEMOGLOBIN A1c (test code = 59131) 9.2 % Surendra WhiteLIPID [id number] 00:00:00* Test Item Value Reference Range Interpretation Comme nts CHOLESTEROL (test code = 2210) 178 MG/DL TRIGLYCERIDES (test code = 2232) 154 MG/DL HDL CHOLESTEROL (test code = 2220) 52 MG/DL CALC LDL CHOL (test code = 2237) 100 MG/DL RISK RATIO LDL/HDL (test cod e = 2238) 1.92 RATIO Surendra WhiteCOMPREHENSIVE METABOLIC [id number] 00:00:00* Test Item Value Reference Range Interpretation Comme nts GLUCOSE (test code = 2217) 140 MG/DL BUN (test code = 2208) 24 MG/DL CREATININE (test code = 2214) 0.92 MG/DL eGFR AMER. (test cod e = 95579) 71 ML/MIN/1.73 eGFR NON- AMER. (test code = 40957) 61 ML/MIN/1.73 CALC BUN/CREAT (test code = 2235) 26 RATIO SODIUM (test code = 2231) 140 MEQ/L POTASSIUM (test code = 2228) 5.0 MEQ/L CHLORIDE (test code = 2215) 98 MEQ/L CARBON DIOXIDE (test code = 2206) 28 MEQ/L CALCIUM (test code = 2209) 10.3 MG/DL PROTEIN, TOTAL (test code = 2229) 7.3 G/DL ALBUMIN (test code = 2201) 4.5 G/DL CALC GLOBULIN (test code = 2240) 2.8 G/DL CALC A/G RATIO (test code = 2234) 1.6 RATIO BILIRUBIN, TOTAL (test code = 2207) 0.3 MG/DL ALKALINE PHOSPHATASE (test code = 220) 56 U/L AST (test code = 2218) 25 U/L ALT (test code = 2219) 20 U/L Surendra WhiteHEMOGLOBIN [id number] 00:00:00* Test Item Value Reference Range Interpretation Comme nts HEMOGLOBIN A1c (test code = 63244) 9.2 % Surendra WhiteLIPID [id number] 00:00:00* Test Item Value Reference Range Interpretation Comme nts CHOLESTEROL (test code = 2210) 178 MG/DL TRIGLYCERIDES (test code = 2232) 154 MG/DL HDL CHOLESTEROL (test code = 2220) 52 MG/DL CALC LDL CHOL (test code = 2237) 100 MG/DL RISK RATIO LDL/HDL (test cod e = 2238) 1.92 RATIO Surendra WhiteCOMPREHENSIVE METABOLIC [id number] 00:00:00* Test Item Value Reference Range Interpretation Comme nts GLUCOSE (test code = 2217) 140 MG/DL BUN (test code = 8) 24 MG/DL CREATININE (test code = 2214) 0.92 MG/DL eGFR AMER. (test cod e = 17508) 71 ML/MIN/1.73 eGFR NON- AMER. (test code = 34693) 61 ML/MIN/1.73 CALC BUN/CREAT (test code = 2235) 26 RATIO SODIUM (test code = 2231) 140 MEQ/L POTASSIUM (test code = 2228) 5.0 MEQ/L CHLORIDE (test code = 2215) 98 MEQ/L CARBON DIOXIDE (test code = 2206) 28 MEQ/L CALCIUM (test code = 2209) 10.3 MG/DL PROTEIN, TOTAL (test code = 2229) 7.3 G/DL ALBUMIN (test code = 2201) 4.5 G/DL CALC GLOBULIN (test code = 2240) 2.8 G/DL CALC A/G RATIO (test code = 2234) 1.6 RATIO BILIRUBIN, TOTAL (test code = 2207) 0.3 MG/DL ALKALINE PHOSPHATASE (test code = 2204) 56 U/L AST (test code = 2218) 25 U/L ALT (test code = 2219) 20 U/L Surendra WihteHEMOGLOBIN [id number] 00:00:00* Test Item Value Reference Range Interpretation Comme nts HEMOGLOBIN A1c (test code = 40835) 9.2 % Surendra WhiteLIPID [id number] 00:00:00* Test Item Value Reference Range Interpretation Comme nts CHOLESTEROL (test code = 2210) 178 MG/DL TRIGLYCERIDES (test code = 2232) 154 MG/DL HDL CHOLESTEROL (test code = 2220) 52 MG/DL CALC LDL CHOL (test code = 2237) 100 MG/DL RISK RATIO LDL/HDL (test cod e = 2238) 1.92 RATIO Surendra WhiteCOMPREHENSIVE METABOLIC [id number] 00:00:00* Test Item Value Reference Range Interpretation Comme nts GLUCOSE (test code = 2217) 140 MG/DL BUN (test code = 2208) 24 MG/DL CREATININE (test code = 2214) 0.92 MG/DL eGFR AMER. (test cod e = 54585) 71 ML/MIN/1.73 eGFR NON- AMER. (test code = 91894) 61 ML/MIN/1.73 CALC BUN/CREAT (test code = 2235) 26 RATIO SODIUM (test code = 2231) 140 MEQ/L POTASSIUM (test code = 2228) 5.0 MEQ/L CHLORIDE (test code = 2215) 98 MEQ/L CARBON DIOXIDE (test code = 2206) 28 MEQ/L CALCIUM (test code = 2209) 10.3 MG/DL PROTEIN, TOTAL (test code = 2229) 7.3 G/DL ALBUMIN (test code = 2201) 4.5 G/DL CALC GLOBULIN (test code = 2240) 2.8 G/DL CALC A/G RATIO (test code = 2234) 1.6 RATIO BILIRUBIN, TOTAL (test code = 2207) 0.3 MG/DL ALKALINE PHOSPHATASE (test code = 2204) 56 U/L AST (test code = 2218) 25 U/L ALT (test code = 2219) 20 U/L Surendra WhiteHEMOGLOBIN [id number] 00:00:00* Test Item Value Reference Range Interpretation Comme carmen HEMOGLOBIN A1c (test code = 53216) 9.2 % Surendra WhiteLIPID [id number] 00:00:00* Test Item Value Reference Range Interpretation Comme nts CHOLESTEROL (test code = 2210) 178 MG/DL TRIGLYCERIDES (test code = 2232) 154 MG/DL HDL CHOLESTEROL (test code = 2220) 52 MG/DL CALC LDL CHOL (test code = 2237) 100 MG/DL RISK RATIO LDL/HDL (test cod e = 2238) 1.92 RATIO Surendra WhiteCOMPREHENSIVE METABOLIC [id number] 00:00:00* Test Item Value Reference Range Interpretation Comme nts GLUCOSE (test code = 2217) 140 MG/DL BUN (test code = 2208) 24 MG/DL CREATININE (test code = 2214) 0.92 MG/DL eGFR AMER. (test cod e = 63094) 71 ML/MIN/1.73 eGFR NON- AMER. (test code = 95896) 61 ML/MIN/1.73 CALC BUN/CREAT (test code = 2235) 26 RATIO SODIUM (test code = 2231) 140 MEQ/L POTASSIUM (test code = 2228) 5.0 MEQ/L CHLORIDE (test code = 2215) 98 MEQ/L CARBON DIOXIDE (test code = 2206) 28 MEQ/L CALCIUM (test code = 2209) 10.3 MG/DL PROTEIN, TOTAL (test code = 2229) 7.3 G/DL ALBUMIN (test code = 2201) 4.5 G/DL CALC GLOBULIN (test code = 2240) 2.8 G/DL CALC A/G RATIO (test code = 2234) 1.6 RATIO BILIRUBIN, TOTAL (test code = 2207) 0.3 MG/DL ALKALINE PHOSPHATASE (test code = 2204) 56 U/L AST (test code = 2218) 25 U/L ALT (test code = 2219) 20 U/L Surendra WhiteHEMOGLOBIN [id number] 00:00:00* Test Item Value Reference Range Interpretation Comme carmen HEMOGLOBIN A1c (test code = 67031) 9.2 % Surendra Ross AustinLIPID [id number] 00:00:00* Test Item Value Reference Range Interpretation Comme nts CHOLESTEROL (test code = 2210) 178 MG/DL TRIGLYCERIDES (test code = 2232) 154 MG/DL HDL CHOLESTEROL (test code = 2220) 52 MG/DL CALC LDL CHOL (test code = 2237) 100 MG/DL RISK RATIO LDL/HDL (test cod e = 2238) 1.92 RATIO Surendra WhiteCOMPREHENSIVE METABOLIC [id number] 00:00:00* Test Item Value Reference Range Interpretation Comme nts GLUCOSE (test code = 2217) 140 MG/DL BUN (test code = 2208) 24 MG/DL CREATININE (test code = 2214) 0.92 MG/DL eGFR AMER. (test cod e = 74292) 71 ML/MIN/1.73 eGFR NON- AMER. (test code = 19328) 61 ML/MIN/1.73 CALC BUN/CREAT (test code = 2235) 26 RATIO SODIUM (test code = 2231) 140 MEQ/L POTASSIUM (test code = 2228) 5.0 MEQ/L CHLORIDE (test code = 2215) 98 MEQ/L CARBON DIOXIDE (test code = 2206) 28 MEQ/L CALCIUM (test code = 2209) 10.3 MG/DL PROTEIN, TOTAL (test code = 2229) 7.3 G/DL ALBUMIN (test code = 2201) 4.5 G/DL CALC GLOBULIN (test code = 2240) 2.8 G/DL CALC A/G RATIO (test code = 2234) 1.6 RATIO BILIRUBIN, TOTAL (test code = 2207) 0.3 MG/DL ALKALINE PHOSPHATASE (test code = 2204) 56 U/L AST (test code = 2218) 25 U/L ALT (test code = 2219) 20 U/L Surendra WhiteHEMOGLOBIN [id number] 00:00:00* Test Item Value Reference Range Interpretation Comme carmen HEMOGLOBIN A1c (test code = 16550) 9.2 % Surendra Ross AustinLIPID [id number] 00:00:00* Test Item Value Reference Range Interpretation Comme nts CHOLESTEROL (test code = 2210) 178 MG/DL TRIGLYCERIDES (test code = 2232) 154 MG/DL HDL CHOLESTEROL (test code = 2220) 52 MG/DL CALC LDL CHOL (test code = 2237) 100 MG/DL RISK RATIO LDL/HDL (test cod e = 2238) 1.92 RATIO Surendra WhiteCOMPREHENSIVE METABOLIC [id number] 00:00:00* Test Item Value Reference Range Interpretation Comme nts GLUCOSE (test code = 2217) 140 MG/DL BUN (test code = 2208) 24 MG/DL CREATININE (test code = 2214) 0.92 MG/DL eGFR AMER. (test cod e = 66274) 71 ML/MIN/1.73 eGFR NON- AMER. (test code = 79316) 61 ML/MIN/1.73 CALC BUN/CREAT (test code = 2235) 26 RATIO SODIUM (test code = 2231) 140 MEQ/L POTASSIUM (test code = 2228) 5.0 MEQ/L CHLORIDE (test code = 2215) 98 MEQ/L CARBON DIOXIDE (test code = 2206) 28 MEQ/L CALCIUM (test code = 2209) 10.3 MG/DL PROTEIN, TOTAL (test code = 2229) 7.3 G/DL ALBUMIN (test code = 2201) 4.5 G/DL CALC GLOBULIN (test code = 2240) 2.8 G/DL CALC A/G RATIO (test code = 2234) 1.6 RATIO BILIRUBIN, TOTAL (test code = 2207) 0.3 MG/DL ALKALINE PHOSPHATASE (test code = 2204) 56 U/L AST (test code = 2218) 25 U/L ALT (test code = 2219) 20 U/L Surendra WhiteHEMOGLOBIN [id number] 00:00:00* Test Item Value Reference Range Interpretation Comme nts HEMOGLOBIN A1c (test code = 82395) 9.2 % LIPID [id number] 00:00:00* Test Item Value Reference Range Interpretation Comme nts CHOLESTEROL (test code = 2210) 178 MG/DL TRIGLYCERIDES (test code = 2232) 154 MG/DL HDL CHOLESTEROL (test code = 2220) 52 MG/DL CALC LDL CHOL (test code = 2237) 100 MG/DL RISK RATIO LDL/HDL (test cod e = 2238) 1.92 RATIO COMPREHENSIVE METABOLIC [id number] 00:00:00* Test Item Value Reference Range Interpretation Comme nts GLUCOSE (test code = 2217) 140 MG/DL BUN (test code = 2208) 24 MG/DL CREATININE (test code = 2214) 0.92 MG/DL eGFR AMER. (test cod e = 03789) 71 ML/MIN/1.73 eGFR NON- AMER. (test code = 69296) 61 ML/MIN/1.73 CALC BUN/CREAT (test code = 2235) 26 RATIO SODIUM (test code = 2231) 140 MEQ/L POTASSIUM (test code = 2228) 5.0 MEQ/L CHLORIDE (test code = 2215) 98 MEQ/L CARBON DIOXIDE (test code = 2206) 28 MEQ/L CALCIUM (test code = 2209) 10.3 MG/DL PROTEIN, TOTAL (test code = 2229) 7.3 G/DL ALBUMIN (test code = 2201) 4.5 G/DL CALC GLOBULIN (test code = 2240) 2.8 G/DL CALC A/G RATIO (test code = 2234) 1.6 RATIO BILIRUBIN, TOTAL (test code = 2207) 0.3 MG/DL ALKALINE PHOSPHATASE (test code = 2204) 56 U/L AST (test code = 2218) 25 U/L ALT (test code = 2219) 20 U/L HEMOGLOBIN [id number] 00:00:00* Test Item Value Reference Range Interpretation Comme nts HEMOGLOBIN A1c (test code = 92584) 9.2 % LIPID [id number] 00:00:00* Test Item Value Reference Range Interpretation Comme nts CHOLESTEROL (test code = 2210) 178 MG/DL TRIGLYCERIDES (test code = 2232) 154 MG/DL HDL CHOLESTEROL (test code = 2220) 52 MG/DL CALC LDL CHOL (test code = 2237) 100 MG/DL RISK RATIO LDL/HDL (test cod e = 2238) 1.92 RATIO COMPREHENSIVE METABOLIC [id number] 00:00:00* Test Item Value Reference Range Interpretation Comme nts GLUCOSE (test code = 2217) 140 MG/DL BUN (test code = 2208) 24 MG/DL CREATININE (test code = 2214) 0.92 MG/DL eGFR AMER. (test cod e = 40144) 71 ML/MIN/1.73 eGFR NON- AMER. (test code = 52317) 61 ML/MIN/1.73 CALC BUN/CREAT (test code = 2235) 26 RATIO SODIUM (test code = 2231) 140 MEQ/L POTASSIUM (test code = 2228) 5.0 MEQ/L CHLORIDE (test code = 2215) 98 MEQ/L CARBON DIOXIDE (test code = 2206) 28 MEQ/L CALCIUM (test code = 2209) 10.3 MG/DL PROTEIN, TOTAL (test code = 2229) 7.3 G/DL ALBUMIN (test code = 2201) 4.5 G/DL CALC GLOBULIN (test code = 2240) 2.8 G/DL CALC A/G RATIO (test code = 2234) 1.6 RATIO BILIRUBIN, TOTAL (test code = 2207) 0.3 MG/DL ALKALINE PHOSPHATASE (test code = 2204) 56 U/L AST (test code = 2218) 25 U/L ALT (test code = 2219) 20 U/L HEMOGLOBIN [id number] 00:00:00* Test Item Value Reference Range Interpretation Comme nts HEMOGLOBIN A1c (test code = 35165) 9.2 % LIPID [id number] 00:00:00* Test Item Value Reference Range Interpretation Comme nts CHOLESTEROL (test code = 2210) 178 MG/DL TRIGLYCERIDES (test code = 2232) 154 MG/DL HDL CHOLESTEROL (test code = 2220) 52 MG/DL CALC LDL CHOL (test code = 2237) 100 MG/DL RISK RATIO LDL/HDL (test cod e = 2238) 1.92 RATIO COMPREHENSIVE METABOLIC [id number] 00:00:00* Test Item Value Reference Range Interpretation Comme nts GLUCOSE (test code = 2217) 140 MG/DL BUN (test code = 2208) 24 MG/DL CREATININE (test code = 2214) 0.92 MG/DL eGFR AMER. (test cod e = 11842) 71 ML/MIN/1.73 eGFR NON- AMER. (test code = 71649) 61 ML/MIN/1.73 CALC BUN/CREAT (test code = 2235) 26 RATIO SODIUM (test code = 2231) 140 MEQ/L POTASSIUM (test code = 2228) 5.0 MEQ/L CHLORIDE (test code = 2215) 98 MEQ/L CARBON DIOXIDE (test code = 2206) 28 MEQ/L CALCIUM (test code = 2209) 10.3 MG/DL PROTEIN, TOTAL (test code = 2229) 7.3 G/DL ALBUMIN (test code = 2201) 4.5 G/DL CALC GLOBULIN (test code = 2240) 2.8 G/DL CALC A/G RATIO (test code = 2234) 1.6 RATIO BILIRUBIN, TOTAL (test code = 2207) 0.3 MG/DL ALKALINE PHOSPHATASE (test code = 2204) 56 U/L AST (test code = 2218) 25 U/L ALT (test code = 2219) 20 U/L HEMOGLOBIN [id number] 00:00:00* Test Item Value Reference Range Interpretation Comme nts HEMOGLOBIN A1c (test code = 21203) 9.2 % LIPID [id number] 00:00:00* Test Item Value Reference Range Interpretation Comme nts CHOLESTEROL (test code = 2210) 178 MG/DL TRIGLYCERIDES (test code = 2232) 154 MG/DL HDL CHOLESTEROL (test code = 2220) 52 MG/DL CALC LDL CHOL (test code = 2237) 100 MG/DL RISK RATIO LDL/HDL (test cod e = 2238) 1.92 RATIO COMPREHENSIVE METABOLIC [id number] 00:00:00* Test Item Value Reference Range Interpretation Comme nts GLUCOSE (test code = 2217) 140 MG/DL BUN (test code = 2208) 24 MG/DL CREATININE (test code = 2214) 0.92 MG/DL eGFR AMER. (test cod e = 89366) 71 ML/MIN/1.73 eGFR NON- AMER. (test code = 68638) 61 ML/MIN/1.73 CALC BUN/CREAT (test code = 2235) 26 RATIO SODIUM (test code = 2231) 140 MEQ/L POTASSIUM (test code = 2228) 5.0 MEQ/L CHLORIDE (test code = 2215) 98 MEQ/L CARBON DIOXIDE (test code = 2206) 28 MEQ/L CALCIUM (test code = 2209) 10.3 MG/DL PROTEIN, TOTAL (test code = 2229) 7.3 G/DL ALBUMIN (test code = 2201) 4.5 G/DL CALC GLOBULIN (test code = 2240) 2.8 G/DL CALC A/G RATIO (test code = 2234) 1.6 RATIO BILIRUBIN, TOTAL (test code = 2207) 0.3 MG/DL ALKALINE PHOSPHATASE (test code = 2204) 56 U/L AST (test code = 2218) 25 U/L ALT (test code = 2219) 20 U/L HEMOGLOBIN [id number] 00:00:00* Test Item Value Reference Range Interpretation Comme nts HEMOGLOBIN A1c (test code = 59562) 9.2 % Surendra Knowles, [id number] 00:00:00* Test Item Value Reference Range Interpretation Comme nts CULTURE, URINE (test code = 32857) SPECIMEN NUMBER: [id number] Surendra Knowles, [id number] 00:00:00* Test Item Value Reference Range Interpretation Comme nts CULTURE, URINE (test code = 28221) SPECIMEN NUMBER: [id number] Surendra Knowles, [id number] 00:00:00* Test Item Value Reference Range Interpretation Comme nts CULTURE, URINE (test code = 14219) SPECIMEN NUMBER: [id number] Surendra Knowles, [id number] 00:00:00* Test Item Value Reference Range Interpretation Comme nts CULTURE, URINE (test code = 94651) SPECIMEN NUMBER: [id number] Surendra Knowles, [id number] 00:00:00* Test Item Value Reference Range Interpretation Comme nts CULTURE, URINE (test code = 06508) SPECIMEN NUMBER: [id number] Surendra Knowles, [id number] 00:00:00* Test Item Value Reference Range Interpretation Comme nts CULTURE, URINE (test code = 91431) SPECIMEN NUMBER: [id number] Surendra Knowles, [id number] 00:00:00* Test Item Value Reference Range Interpretation Comme nts CULTURE, URINE (test code = 35595) SPECIMEN NUMBER: [id number] Surendra Knowles, [id number] 00:00:00* Test Item Value Reference Range Interpretation Comme nts CULTURE, URINE (test code = 92937) SPECIMEN NUMBER: [id number] CULTURE, [id number] 00:00:00* Test Item Value Reference Range Interpretation Comme nts CULTURE, URINE (test code = 02605) SPECIMEN NUMBER: [id number] CULTURE, [id number] 00:00:00* Test Item Value Reference Range Interpretation Comme nts CULTURE, URINE (test code = 02175) SPECIMEN NUMBER: [id number] CULTURE, [id number] 00:00:00* Test Item Value Reference Range Interpretation Comme nts CULTURE, URINE (test code = 73468) SPECIMEN NUMBER: [id number] CULTURE, [id number] 00:00:00* Test Item Value Reference Range Interpretation Comme nts CULTURE, URINE (test code = 46569) SPECIMEN NUMBER: [id number] Surendra WhiteCULTURE, [id number] 00:00:00* Test Item Value Reference Range Interpretation Comme nts CULTURE, URINE (test code = 27302) SPECIMEN NUMBER: [id number] Surendra WhiteCULTURE, [id number] 00:00:00* Test Item Value Reference Range Interpretation Comme nts CULTURE, URINE (test code = 88939) SPECIMEN NUMBER: [id number] Surendra WhiteCULTURE, [id number] 00:00:00* Test Item Value Reference Range Interpretation Comme nts CULTURE, URINE (test code = 76330) SPECIMEN NUMBER: [id number] Surendra SilveiraLTMARCELLO, [id number] 00:00:00* Test Item Value Reference Range Interpretation Comme nts CULTURE, URINE (test code = 05038) SPECIMEN NUMBER: [id number] Surendra WhiteCULTURE, [id number] 00:00:00* Test Item Value Reference Range Interpretation Comme nts CULTURE, URINE (test code = 63118) SPECIMEN NUMBER: [id number] Surendra WhiteCULTURE, [id number] 00:00:00* Test Item Value Reference Range Interpretation Comme nts CULTURE, URINE (test code = 79826) SPECIMEN NUMBER: [id number] Surendra WhiteCULTURE, [id number] 00:00:00* Test Item Value Reference Range Interpretation Comme nts CULTURE, URINE (test code = 32358) SPECIMEN NUMBER: [id number] Surendra WhiteCULTURE, [id number] 00:00:00* Test Item Value Reference Range Interpretation Comme nts CULTURE, URINE (test code = 60021) SPECIMEN NUMBER: [id number] Surendra WhiteCULTURE, [id number] 00:00:00* Test Item Value Reference Range Interpretation Comme nts CULTURE, URINE (test code = 19619) SPECIMEN NUMBER: [id number] CULTURE, [id number] 00:00:00* Test Item Value Reference Range Interpretation Comme nts CULTURE, URINE (test code = 22538) SPECIMEN NUMBER: [id number] CULTURE, [id number] 00:00:00* Test Item Value Reference Range Interpretation Comme nts CULTURE, URINE (test code = 71827) SPECIMEN NUMBER: [id number] CULTURE, [id number] 00:00:00* Test Item Value Reference Range Interpretation Comme nts CULTURE, URINE (test code = 86792) SPECIMEN NUMBER: [id number] CULTURE, [id number] 00:00:00* Test Item Value Reference Range Interpretation Comme nts CULTURE, URINE (test code = 96995) SPECIMEN NUMBER: [id number] Surendra WhiteCULTURE, [id number] 00:00:00* Test Item Value Reference Range Interpretation Comme nts CULTURE, URINE (test code = 39531) SPECIMEN NUMBER: [id number] Surendra WhiteCULTURE, [id number] 00:00:00* Test Item Value Reference Range Interpretation Comme nts CULTURE, URINE (test code = 75037) SPECIMEN NUMBER: [id number] Surendra WhiteCULTURE, [id number] 00:00:00* Test Item Value Reference Range Interpretation Comme nts CULTURE, URINE (test code = 42462) SPECIMEN NUMBER: [id number] Surendra WhiteCULTURE, [id number] 00:00:00* Test Item Value Reference Range Interpretation Comme nts CULTURE, URINE (test code = 73761) SPECIMEN NUMBER: [id number] Surendra WhiteCULTURE, [id number] 00:00:00* Test Item Value Reference Range Interpretation Comme nts CULTURE, URINE (test code = 62200) SPECIMEN NUMBER: [id number] Surendra WhiteCULTURE, [id number] 00:00:00* Test Item Value Reference Range Interpretation Comme nts CULTURE, URINE (test code = 77309) SPECIMEN NUMBER: [id number] Surendra WhiteCULTURE, [id number] 00:00:00* Test Item Value Reference Range Interpretation Comme nts CULTURE, URINE (test code = 18647) SPECIMEN NUMBER: [id number] CULTURE, [id number] 00:00:00* Test Item Value Reference Range Interpretation Comme nts CULTURE, URINE (test code = 70284) SPECIMEN NUMBER: [id number] CULTURE, [id number] 00:00:00* Test Item Value Reference Range Interpretation Comme nts CULTURE, URINE (test code = 95065) SPECIMEN NUMBER: [id number] CULTURE, [id number] 00:00:00* Test Item Value Reference Range Interpretation Comme nts CULTURE, URINE (test code = 79697) SPECIMEN NUMBER: [id number] CULTURE, [id number] 00:00:00* Test Item Value Reference Range Interpretation Comme nts CULTURE, URINE (test code = 94990) SPECIMEN NUMBER: [id number] Surendra White Consult Notes Date/Time Note Provider Source 2024-06-06 14:42:06 Associated Order(s): CONSULT ADULT PHYSICAL THERAPY Physical Therapy Progress Note: Recommend nursing staff utilize mod A to safely assist patient with mobility out of the bed or chair. Discharge Recommendations: Therapy Needs and Potential: Patient would benefit from continued physical therapy services to address: decline in bed mobility decline in transfers decline in gait and/or balance decreased strength decreased endurance Challenges to Home Transition: increased risk of falls decreased safety awareness Equipment recommendations: Patient has or access to necessary equipment PAIN: denies pain before and after session PRECAUTIONS: Weight Bearing Precaution: WBAT General Precautions: Fall, Santoyo catheter, oxygen: Nasal canula Bracing/Cast present or required: S: Patient agreeable to working with PT. Patient goal: Be able to go home. O: Patient in semichair position in bed , No visitors present. Patient seen for the following: AM-PAC 6 Clicks (Raw Score 0=Dependent, 24=Independent; Low function Raw Score 0= Dependent, 32=Independent): Raw Score - Basic Mobility : 14 T-Scale Score - Basic Mobility : 35.55 Bed mobility: Rolling: Supervision Bridging: Minimal Assistance Supine to sit: Minimal Assistance Scooting to edge of bed: Minimal Assistance Educated on log rolling Dizziness: No Transfers: Sit to stand: Moderate Assistance using RW Stand to sit: Moderate Assistance using RW Pt requested to go to bedside commode and was assisted there with mod A. Pt unable to stand erect and legs felt weak. Dizziness: Yes Gait: Pt able to ambulate 2 feet performing stand pivot transfer onto bedside commode while being assisted from PT. Pt unable to ambulate with a RW today. Therapeutic exercise: patient educated in Fall prevention and General strengthening. and instructed patient in the following: ankle pumps, heel slides, straight leg raises, bilateral LE bridging Educated on performing HEP 1-2 times a day. After session, patient semireclining in bed, No visitors present and call maharaj provided. A: Patient tolerated session fair. Pt able to perform bed mobility with SBA but did require mod A when performing transfers. Suspected ischemic or hemorraghic stroke:No P: PT will - progress transfers, bed mobility, and ambulation as tolerated . Total Timed Tx Codes in Minutes: 24 Min Total Treatment Time in Minutes: 30 Min Caroline Vizcarra, PT [place] PT License [id number] [facility] Rehabilitation Services Department (phone) (fax) ON Vizcarra PT [facility] 2024-05-30 11:07:00 Associated Order(s): CONSULT VASCULAR ACCESS APCS Vascular Access Services MID-LINE CONSULT 79 year old female. Indication/Diagnosis: intravenous access See procedure note. H BALE HEADER [facility] 2024-05-27 13:31:26 [facility] Pulmonary/Critical Care Medicine Interventional Pulmonology Chief Complaint: Respiratory failure and confusion Subjective: Werner Diaz is a 79 year old female with admission to hospital for respiratory failure and confusion. Patient is awake and alert now, does complain of cough. No fevers or upper respiratory symptoms. Past Histories: I have reviewed and updated the following as appropriate: past medical history, past surgical history, family history, social history. Objective: BP (!) 130/110 | Pulse 83 | Temp 35.7 ?C (96.2 ?F) | Resp 18 | Ht 5' 3" (1.6 m) | Wt 185 lb 3 oz (84 kg) | SpO2 92% | BMI 32.80 kg/m? Physical Exam Constitutional: Appearance: Normal appearance. Cardiovascular: Rate and Rhythm: Normal rate. Pulmonary: Effort: Pulmonary effort is normal. No respiratory distress. Breath sounds: Wheezing and rhonchi present. Neurological: General: No focal deficit present. Mental Status: She is alert and oriented to person, place, and time. Labs/Studies: WBC 15.79 hemoglobin 12.8 platelet 290 Sodium 134 potassium 4.7 chloride 98 CO2 31 BUN 34 creatinine 0.[address] scan shows some mild patchy opacities especially in the right lower lobe, some diffuse bronchial wall thickening. Assessment: Werner Diaz is a 79 year old female with acute hypoxic respiratory failure possibly related to acute bronchitis vs community acquired pneumonia. Plan: Agree with antibiotics and steroids Would wean oxygen as tolerated Change Duo nebs to Q6H H BALE HEADER IM-PULMONARY DISEASE STAFF [facility] 2024-05-26 13:00:00 Associated Order(s): CONSULT PS PASTORAL CARE Event Gopherman visited patient while rounding. Intervention Gopherman was a spiritual presence and blasting machine operator. Gopherman offered active compassionate listening. Gopherman provided patient with words of support and encouragement. Gopherman prayed for patient healing and recovery. Outcome/Spiritual Assessment Patient received awake in bed. Patient family was at bedside. Patient was pleasant and welcomed the Gopherman visit. Patient is a Ep[employer] and welcomed prayer. Patient and family thanked the Gopherman for the visit. Plan Additional Gopherman support is available upon request. Gopherman Mirna Velásquez DMin Pastoral Care Department [phone] H BALE HEADER Mirna Velásquez [facility] 2024-05-25 13:05:00 Associated Order(s): CONSULT ADULT PHYSICAL THERAPY Patient agreeable to working with physical therapy. Patient semireclining in bed and Heels offloaded? No: not required as patient is alert and oriented, as well as exhibits sufficient LE strength and ability to move/reposition LEs/heels throughout the day, No visitors present. Recommend nursing staff utilize Minimal assist to safely assist patient with mobility out of the bed or chair. PHYSICAL THERAPY EVALUATION Consult received, chart reviewed and evaluation complete this date. Patient is referred to PT for evaluation and treatment. Patient is a 79 year old female who presents to hospital for Altered mental status, unspecified altered mental status type [R41.82]. Discharge Recommendations: Therapy Needs and Potential: Patient would benefit from continued physical therapy services to address: decline in transfers decline in gait and/or balance decreased strength Challenges to Home Transition: increased risk of falls decreased safety awareness Equipment recommendations: standard walker Current Functional Status and/or Treatment: AM-PAC 6 Clicks (Raw Score 0=Dependent, 24=Independent; Low function Raw Score 0= Dependent, 32=Independent): Raw Score - Basic Mobility : 14 T-Scale Score - Basic Mobility : 35.55 Bed Mobility: Rolling: Supervision Bridging: Supervision Supine-sit: Supervision Sit to supine: Supervision Sitting balance Good Pt sat on EOB, Pt used the bed rails to help her sit up. Dizziness No Transfers: Sit to stand: Minimal Assistance using standard Walker Stand to sit: Minimal Assistance using standard Walker Static/dynamic standing balance: Good Verbal cueing provided for correct hand placement and correct use of AD Pt was able to stand up w/ walker. PT was on CGA as a precaution for fall. Dizziness No Ambulation: patient unable to tolerate due to weakness Pt could not take a step, Pt stated her B/L LE feels like it was going to give out on her. Dizziness No Therapeutic exercise: patient educated in Deep breathing, Fall prevention, General strengthening, Relaxation/breathing techniques, and Safety awareness. After session, patient semireclining in bed and Heels offloaded? No: not required as patient is alert and oriented, as well as exhibits sufficient LE strength and ability to move/reposition LEs/heels throughout the day, No visitors present. Call button provided. PT informed RN of Pt status. PLAN OF CARE: While in the hospital, PT will follow patient at least 3 times per week,once or twice a day, per patient's tolerance and needs. See below for complete details. Admit Date: 05/24/2024 Hospital Diagnosis:Altered mental status, unspecified altered mental status type [R41.82] PT Diagnosis: Difficulty walking, Weakness, and Malaise/fatigue Weight Bearing Precaution: NA General Precautions: PPE used:Gloves, General, Fall,oxygen: Nasal canula Bracing/Cast present or required:N/A PMH: Past Medical History: Diagnosis Date Anxiety Atrial fibrillation Depression Diabetes mellitus type II, controlled Fluid retention GERD (gastroesophageal reflux disease) HTN (hypertension) Hyperlipidemia Left knee pain 07/11/2015 Nerve pain PSH: Past Surgical History: Procedure Laterality Date APPENDECTOMY BACK SURGERY CHOLECYSTECTOMY ESOPHAGOGASTRODUODENOSCOPY N/A 02/13/2016 Surgeon: Wendy Mcclellan MD; Location: [facility] OR Location HYSTERECTOMY AR ANES NERVE MUSC TENDON FASCIA&BURSA KNEE&/POPLT AR DILATION ESOPH UNGUIDED SOUND/BOUGIE 1/MULT PASS 02/13/2016 AR ESOPHAGOGASTRODUODENOSCOPY TRANSORAL DIAGNOSTIC 02/13/2016 TONSILLECTOMY TOTAL KNEE ARTHROPLASTY Left PRIOR LIVING SITUATION: lives with their spouse and in a house DME: Standard Walker Prior level of Mobility: ambulates with standard Walker Suspected ischemic or hemorraghic stroke:No Subjective: Pt did not complain of pain/SOB during PT evaluation. Patient/Family Goals: To get better Patient/Family verbalizes understanding of condition: Yes PAIN: denies pain before and after session COMMUNICATION Primary Language: Nauruan Able to Verbalize needs: Yes Vision:good; no issues reported Hearing:good; no issues reported ORIENTATION/COGNITION: Oriented to: person, place, and situation Awake: Yes Alert: Yes Dizzy: No Follows Commands: Yes 1-Step Yes Multi-Step Yes Inconsistent: No NEUROLOGICAL Light Touch: within functional limits bilateral LE BALANCE: Sitting: Static: Good Dynamic: Good Standing: Static: Fair+ Dynamic: Fair RANGE OF MOTION: within functional limits bilateral LE STRENGTH: 3-/5 (F-), bilateral LE ENDURANCE: Fair+, Nasal canula SKIN INTEGRITY: intact, PROBLEM LIST: Decline in bed mobility, Decline in gait, Decline in transfers, Decreased strength, Decreased endurance, and Safety awareness deficits ASSESSMENT: Patient is a 79 year old female seen secondary to the above listed diagnosis. Patient would benefit from continued PT to address the above listed deficits to maximize independence and safety with functional mobility. Rehabilitation Potential: good Goals: The following goals are to maximize independence and safety with functional mobility to eventually return to prior living situation and prior functional status. Upon discharge, patient and/or family will demonstrate the followin. Rolling: Independent Bridging: Independent Supine-sit: Independent Sit to supine: Independent Sitting balance Excellent 2. Sit to stand: Supervision using standard Walker Stand to sit: Supervision using standard Walker 3. Minimal Assistance with ambulation, Feet: 5 using least assistive device. Treatment Plan: Gait training, Therapeutic exercise, Transfer training, and Safety education, patient/caregiver education PATIENT EDUCATION: Patient provided with preferred teaching of verbal information and demonstration on role of PT, plan of care, and goals. Shows readiness to learn. Verbal instruction and Demonstration teaching provided. Individual is able to read and verbalizes understanding of teaching provided. Total Time Tx Codes in Minutes: 20 min Total Treatment Time in Minutes: 25 min Leola Brandt PT [place] Lic No. [id number] [facility] Department of Physical Therapy H BALE HEADER Leola Brandt PT [facility] 2023-10-23 13:09:21 Associated Order(s): CONSULT SENIOR JAVA ARCHITECT-ADULT Patient wishing to go to INPT rehab at [facility], daughter Kassandra Hidalgo, agreed. Arnol Rodriguez RN, BSN [facility] ADC Domestic Violence Advocate [phone] [facility] 2023-10-22 16:04:00 Associated Order(s): CONSULT SPEECH Speech-Language Pathology Clinical Swallow Evaluation and Speech-Language/Cognitive Evaluation 10/22/2023 Werner Diaz : 1945 Age/Sex: 78 year old female Time IN/OUT: 9012-4824 Referring Physician: Angel Luis Rangel MD Date of Referral: 10/22/2023 Reason for Referral: stroke activation (dysphagia, speech-language/cognitive-linguisti c) Date of Admission/Onset: 10/22/2023 SUBJECTIVE: Pt independent in room. Pt awake and alert reclining in bed. Pt's food tray was brought up for dinner and she was agreeable to the POLYMERIZATION ENGINEER staying to assess her swallow and to give her a speech-language/cognitive evaluation. OBJECTIVE: is being seen for a clinical swallow evaluation. Werner Diaz is a 78 year old female admitted for AMS, CVA (subacute stroke in the left parietal lobe), and UTI with PMH significant for anxiety, depression, diabetes type II, GERD. Pertinent Imaging: MR BRAIN WO CONTRAST Result Date: 10/22/2023 Acute to subacute infarct in the left temporoparietal lobe with additional punctate acute to subacute infarcts in the left temporal and right precentral gyrus. Mild degree of global cerebral volume loss with background of of mild to moderate microvascular ischemic changes XR CHEST 1 VW Result Date: 10/22/2023 No radiographic evidence of acute cardiopulmonary process. Improved pulmonary edema since prior exam with trace residual or chronic interstitial changes/scarring. Preliminary Report Dictated by Resident: Mor Darby I, Isi Wilkinson MD., have reviewed this study and agree with the above report. CT HEAD WO CONTRAST Result Date: 10/22/2023 Age-indeterminate left parietal lobe infarct, favoring to be subacute to chronic new since the prior study but fairly hypodense and probably not acute. Preliminary Report Dictated by Resident: Mor Darby I, Nain Mora MD., have reviewed this study and agree with the above report. Previous POLYMERIZATION ENGINEER Services/Swallow History: None found in pt's medical chart and none reported by the pt. Past Medical History: Diagnosis Date Anxiety Atrial fibrillation Depression Diabetes mellitus type II, controlled Fluid retention GERD (gastroesophageal reflux disease) HTN (hypertension) Hyperlipidemia Left knee pain 07/11/2015 Nerve pain Past Surgical History: Procedure Laterality Date APPENDECTOMY BACK SURGERY CHOLECYSTECTOMY ESOPHAGOGASTRODUODENOSCOPY N/A 02/13/2016 Surgeon: Wendy Mcclellan MD; Location: [facility] OR Location HYSTERECTOMY AR ANES NERVE MUSC TENDON FASCIA&BURSA KNEE&/POPLT AR DILATION ESOPH UNGUIDED SOUND/BOUGIE 1/MULT PASS 02/13/2016 AR ESOPHAGOGASTRODUODENOSCOPY TRANSORAL DIAGNOSTIC 02/13/2016 TONSILLECTOMY TOTAL KNEE ARTHROPLASTY Left General Behavior: Alert, Calm, Confused, and Cooperative Hearing: WFL for speech Respiratory Status: room air Orientation/Cognition: - Patient oriented to: person, place, time, and situation. Pt had difficulty telling the POLYMERIZATION ENGINEER what her was; however, when the POLYMERIZATION ENGINEER started listing off the of the year and got to March, the pt was able to correctly give her . - Response type: verbal - Follows 1-step commands: Yes Current Diet Texture/Means of Nutrition: regular (IDDSI level 7)-textured diet with thin liquids (IDDSI level 0) Oral Motor Exam Dentition and Oral Cavity: dentate, natural dentition, some missing teeth, dry oral mucosa, and clean oral cavity Face within normal limits and symmetrical Jaw within normal limits and symmetrical Lips within normal limits and symmetrical Tongue midline on protrusion and impaired function, characterized by reduced elevation Palate symmetrical and impaired function, characterized by high, vaulted palate Vocal Quality clear Speech clear/intelligible, fluent with paraphasias and anomia CLINICAL SWALLOW EVALUATION Swallows on command: Yes Handles Secretions: Yes Volitional Cough: present Spontaneous Cough: No PO trials were administered by patient and POLYMERIZATION ENGINEER. Patient was provided with multiple bites/sips of ice chips, thin liquid (0), pudding (4), minced & moist solid (5), and regular solid (7) consistencies with the following observations: Oral Stage Anterior leakage of bolus not observed Pocketing of bolus not observed Subjectively prolonged oral phase not observed Oral residue observed (diffuse) with pudding (4) and regular solid (7) Mastication WNL Pharyngeal Stage Subjectively reduced laryngeal elevation not observed Coughing or throat clearing not observed Change in voice quality not observed Multiple swallows subjectively not observed Respiratory sufficiency and coordination WFL - no increased work of breathing and/or oxygen sats and respiratory rate remained stable Report of globus sensation does not report 3 oz water challenge passed Patient/Family/Staff education: Provided verbally. Discussed findings of evaluation, recommendations and POLYMERIZATION ENGINEER plan of care. Discussed risks of aspiration/dysphagia and possible associated complications including respiratory distress, respiratory infections (such as PNA), weight loss/difficulty meeting nutritional needs, possible need for mechanical ventilation, and even . Patient/family verbalized understanding and is in agreement with plan of care. RN and referring provider notified of findings and recommendations. Patient/Family goal: safe PO intake, improved functional communication, improved cognition, improved comprehension, improved speech-language skills, and improved word-finding ASSESSMENT/IMPRESSIONS: Werner Diaz presents with: Diagnosis: suspected normal oropharyngeal swallow and oral dysphagia Etiology of suspected dysphagia/Risk factors for dysphagia: AMS, acute/subacute stroke, and secondary to esophageal component Observations/Complaints: no signs of discomfort or distress and puree residue on tongue requiring pt to perform double swallow technique to clear her oral cavity . Pt with increased belching during PO trials. Factors raising concern for aspiration or pharyngeal dysphagia: acute stroke Suspected risk for aspiration: low Factors increasing risk for aspiration-related respiratory complication such as pneumonia: reduced mobility, dependence on others for oral hygiene and feeding, and impaired cognition Risk for malnutrition/dehydration or not meeting nutritional needs: low Additional comments: NA *Note: aspiration cannot be ruled out nor confirmed without instrumental assessment/imaging. INFORMAL COGNITIVE/LANGUAGE EVALUATION Western Aphasia Battery: Bedside Bedside Aphasia Score: 70/100 - mild/moderate Bedside Language Score: 68.75 - moderate Auditory Comprehension: Moderate - Yes/No Questions: 8/10 possible points - Sequential Commands: 2/10 possible points Verbal Expression: Mild - Spontaneous Speech Content: 8/10 possible points - Spontaneous Speech Fluency: 8/10 possible points - Repetition: 7/10 possible points - Object Namin/10 possible points Intelligibility/Motor Planning: Within Functional Limits Pragmatics/Social Interaction: Within Functional Limits Voice/Resonance/Fluency: Within Functional Limits Reading/Writing: Mild/moderate - Reading Score: 7/10 possible points - Writing Score: 6/10 possible points. Pt had difficulty with spelling/writing (did not cross first T in "telephone", ended "telephone" with a crossed /t/, attempted to write "ringing" but wrote "right") Cognitive-Linguistic: Moderate - Clock task: Pt had significant difficulty with this task. Pt was able to correctly label 9, 10, and 12 on the clock, but did not include all numbers or the clock hands. The pt wrote: 12, 11, 10, 1:3, 1/6, 8, 9, 10. - Short-term Word Recall/Memory: pt was able to remember 2/3 words - Categories: Pt was able to correctly identify 3/4 categories - Generative naming with categories: Pt was able to name 1 fruit, but with increased wait time was able to get 3/3 fruits, drinks, and body parts - Associations: 5/5 - Sentence Completion: 5 - Automatic Speech: 2/2 Prognosis: good for safe po intake, improved functional communication, and improved cognitive-communication skills with skilled POLYMERIZATION ENGINEER therapy, time, adherence to POLYMERIZATION ENGINEER recommendations, family/caregiver support, improvement in alertness and mental status, and universal swallow precautions due to above findings. RECOMMENDATIONS/GOALS: Diet: Recommend patient continue a regular (IDDSI level 7)-textured diet with thin liquids (IDDSI level 0) and swallow precautions: sit fully upright/in chair, ok to use straws, remain upright after PO intake, and slow rate of intake Precautions: - Swallow Precautions: sit fully upright/in chair, ok to use straws, remain upright after PO intake, and slow rate of intake Instrumental Swallow Assessment: no - Not indicated at this time. Additional Referrals: - Consider further esophageal work-up with full barium swallow and/or consult GI as indicated. Pt with increased belching during PO trials. Continued POLYMERIZATION ENGINEER services: Receptive Language: - Patient will follow 2-3 step directions (especially those containing temporal words such as "before") utilizing objects with 70% accuracy with moderate verbal cues and visual cues Expressive Language: - Patient will use word-finding strategies at the sentence level in 70% of opportunities with minimal verbal cues and visual cues - Patient will name 5 items in a simple category for a generative naming activity with moderate verbal cues and visual cues - Patient will demonstrate 80% accurate writing of short phrases with moderate verbal cues and visual cues Cognitive Communication: - Patient will verbalize 2 external memory strategies (write it down, repeat/rehearse words aloud, tell it to someone else, etc.) to improve delayed recall, independence, safety, and quality of life with minimal verbal cues and visual cues - Patient will verbalize 2 internal memory strategies (visualize, rehearse/repeat words in head, mnemonic, etc.) to improve delayed recall with minimal verbal cues and visual cues - Patient will recall 3 words immediately 70% of the time with minimal verbal cues and visual cues Discharge Recommendations: - Recommend referral for outpatient POLYMERIZATION ENGINEER evaluation/treatment. - Recommend continued POLYMERIZATION ENGINEER services at d/c facility, ideally at inpatient neuro rehab type of facility if feasible. *D/C Recs subject to change pending progress made while in-house. Alberta Li M.S., [facility]-POLYMERIZATION ENGINEER [facility] Department: [phone] [facility] 2023-10-22 15:27:59 Associated Order(s): CONSULT ADULT PHYSICAL THERAPY Patient agreeable to working with physical therapy. Patient met supine. Recommend nursing staff utilize mod A to safely assist patient with mobility out of the bed or chair. PHYSICAL THERAPY EVALUATION Consult received, chart reviewed and evaluation complete this date. Patient is referred to PT for evaluation and treatment. Patient is a 78 year old female who presents to hospital for Ischemic cerebrovascular accident (CVA) [I63.9] . Discharge Recommendations: Therapy Needs and Potential: Patient would benefit from continued physical therapy services to address: decline in bed mobility decline in transfers decline in gait and/or balance decreased strength decreased endurance Challenges to Home Transition: increased risk of falls decreased safety awareness Equipment recommendations: Patient has or access to necessary equipment Current Functional Status and/or Treatment: AM-PAC 6 Clicks (Raw Score 0=Dependent, 24=Independent; Low function Raw Score 0= Dependent, 32=Independent): Raw Score - Basic Mobility : 13 T-Scale Score - Basic Mobility : 33.99 Bed Mobility: Rolling: Minimal Assistance Educated on log rolling Dizziness No Transfers: Sit to stand: Minimal Assistance using rolling Walker. Stand to sit: Minimal Assistance using rolling Walker. Educated on pushing up on stable surface. Dizziness Yes. Pt reported slight dizziness at EOB. Ambulation: Assisted patient with ambulation as follows: 3 feet using rolling Walker. and Moderate Assistance. Educated on using rolling walker and staying inside walker. Pt reported having burning sensation in B feet. Dizziness No Therapeutic exercise: patient educated in Fall prevention and General strengthening. After session, patient supine. Call button provided. PLAN OF CARE: While in the hospital, PT will follow patient at least 3 times per week,once or twice a day, per patient's tolerance and needs. See below for complete details. Admit Date: 10/21/2023 Hospital Diagnosis:Ischemic cerebrovascular accident (CVA) [I63.9] PT Diagnosis: Difficulty walking, Weakness, Malaise/fatigue, and Abnormality of gait and balance Weight Bearing Precaution: WBAT General Precautions: Fall,Purewick catheter Bracing/Cast present or required: PMH: Past Medical History: Diagnosis Date Anxiety Atrial fibrillation Depression Diabetes mellitus type II, controlled Fluid retention GERD (gastroesophageal reflux disease) HTN (hypertension) Hyperlipidemia Left knee pain 07/11/2015 Nerve pain PSH: Past Surgical History: Procedure Laterality Date APPENDECTOMY BACK SURGERY CHOLECYSTECTOMY ESOPHAGOGASTRODUODENOSCOPY N/A 02/13/2016 Surgeon: Wendy Mcclellan MD; [place] [facility] [place]OMY AR ANES NERVE MUSC TENDON FASCIA&BURSA KNEE&/POPLT AR DILATION ESOPH UNGUIDED SOUND/BOUGIE 1/MULT PASS 02/13/2016 AR ESOPHAGOGASTRODUODENOSCOPY TRANSORAL DIAGNOSTIC 02/13/2016 TONSILLECTOMY TOTAL KNEE ARTHROPLASTY Left Prior Living Situation: lives with their spouse and in a house, DME: Rolling Walker Prior level of Mobility: community ambulation, house hold ambulation, ambulates with personal RW Suspected ischemic or hemorraghic stroke:Yes, Pre-Stroke Modified Marissa Score: 3 - Moderate disability; requires some help, but able to walk with-out assistance Subjective: Pt stated she came into the hospital after having a stroke. She is afraid to get up and afraid she will fall. She is having burning in her feet. Patient/Family Goals: Be able to go home. Patient/Family verbalizes understanding of condition: Yes PAIN: denies pain before and after session COMMUNICATION Primary Language: Nauruan Able to Verbalize needs: Yes Vision:good; no issues reported Hearing:good; no issues reported ORIENTATION/COGNITION: Oriented to: person, place, date/time, and situation Awake: Yes Alert: Yes Dizzy: No Follows Commands: Yes 1-Step Yes Multi-Step Yes Inconsistent: No NEUROLOGICAL Light Touch: within functional limits bilateral LE BALANCE: Sitting: Static: Good Dynamic: Good Standing: Static: Fair+ Dynamic: Fair+ RANGE OF MOTION: within functional limits bilateral LE STRENGTH: 4/5 (Good), bilateral LE ENDURANCE: Fair+ SKIN INTEGRITY: intact, PROBLEM LIST: Decline in bed mobility, Decline in gait, Decline in transfers, Decreased strength, Decreased endurance, and Decreased balance ASSESSMENT: Patient is a 78 year old female seen secondary to the above listed diagnosis. Patient would benefit from continued PT to address the above listed deficits to maximize independence and safety with functional mobility. Rehabilitation Potential: good Goals: The following goals are to maximize independence and safety with functional mobility to eventually return to prior living situation and prior functional status. Upon discharge, patient and/or family will demonstrate the followin. Rolling: Independent Bridging: Independent Sit to supine: Independent Scooting to edge of bed: Independent 2. sit-stand: Supervision Sit to stand: Supervision using rolling Walker. 3. Minimal Assistance with ambulation, Feet: 30 using least assistive device. Treatment Plan: Gait training, Therapeutic exercise, Transfer training, Balance training, Bed mobility training, and Safety education, patient/caregiver education PATIENT EDUCATION: Patient provided with preferred teaching of verbal information on role of PT, plan of care. Shows readiness to learn. Verbal instruction teaching provided. Individual is able to read and verbalizes understanding of teaching provided and accurately returns demonstration of skill. Total Time Tx Codes in Minutes: 18 min Total Treatment Time in Minutes: 25 min Caroline Vizcarra PT [place] PT License [id number] [facility] Services Department (phone) (fax) Caroline Vizcarra PT [facility] - Health History and Physical Notes Date/Time Note Provider Source 2024-05-25 02:23:19 [facility] ADMIT H&P Date of Service: 05/25/2024 CHIEF COMPLAINT: altered mental status, shortness of breath Subjective History of Present Illness 79-year-old female with past medical history of anxiety, atrial fibrillation, depression, diabetes, GERD, hypertension, hyperlipidemia who presents to the emergency room secondary to worsening shortness of breath and confusion. This seems to have started days ago. Of note, her daughter states that she is not taking her medications. In the emergency room her oxygen saturations were read at 88% on room air. She was placed on 3 L nasal cannula and improved to 94%. PAST MEDICAL HISTORY Past Medical History: Diagnosis Date Anxiety Atrial fibrillation Depression Diabetes mellitus type II, controlled Fluid retention GERD (gastroesophageal reflux disease) HTN (hypertension) Hyperlipidemia Left knee pain 07/11/2015 Nerve pain Past Surgical History: Procedure Laterality Date APPENDECTOMY BACK SURGERY CHOLECYSTECTOMY ESOPHAGOGASTRODUODENOSCOPY N/A 02/13/2016 Surgeon: Wendy Mcclellan MD; Location: [facility] OR Location HYSTERECTOMY AR ANES NERVE MUSC TENDON FASCIA&BURSA KNEE&/POPLT AR DILATION ESOPH UNGUIDED SOUND/BOUGIE 1/MULT PASS 02/13/2016 AR ESOPHAGOGASTRODUODENOSCOPY TRANSORAL DIAGNOSTIC 02/13/2016 TONSILLECTOMY TOTAL KNEE ARTHROPLASTY Left Past Family History No family history on file. ALLERGIES No Known Allergies MEDICATIONS No current facility-administered medications on file prior to encounter. Current Outpatient Medications on File Prior to Encounter Medication Sig Dispense Refill magnesium oxide 400 mg (241.3 mg magnesium) tablet Take 1 tablet by mouth in the morning and 1 tablet in the evening. 180 tablet 1 aspirin 81 mg chewable tablet Take 1 tablet by mouth in the morning. atorvastatin (LIPITOR) 80 mg tablet Take 1 tablet by mouth at bedtime. 90 tablet 3 losartan 25 mg tablet Take 2 tablets by mouth in the morning. 30 tablet 0 ondansetron 4 mg disintegrating tablet Take 1 tablet by mouth every 8 (eight) hours as needed for Nausea and Vomiting (N/V). 20 tablet 0 ferrous sulfate 325 mg (65 mg iron) tablet Take 1 tablet by mouth in the morning. 30 tablet 0 furosemide 40 mg tablet Take 1 tablet by mouth in the morning and 1 tablet in the evening. 60 tablet 0 Insulin Detemir (LEVEMIR FLEXPEN) 100 unit/mL (3 mL) injection inject under the skin. diazePAM 5 mg tablet (Schedule IV Drug) TAKE 1 TABLET BY MOUTH EVERY EVENING clonazePAM 1 mg tablet Take 1 tablet by mouth at bedtime. 30 tablet 0 ipratropium-albuterol 0.5 mg-3 mg(2.5 mg base)/3 mL nebulizer solution Inhale 3 mL every 4 (four) hours as needed for Wheezing. 180 mL 0 traMADOL (ULTRAM) 50 mg tablet Take 1 tablet by mouth every 4 (four) hours as needed for Pain (scale 4-6). 40 tablet 0 GABAPENTIN ORAL Take 800 mg by mouth 3 (three) times daily. metFORMIN (GLUCOPHAGE) 1,000 mg tablet Take 1 tablet by mouth in the morning and 1 tablet in the evening. Take with meals. potassium chloride (K-DUR) 10 mEq CR tablet Take 2 tablets by mouth in the morning. tolterodine LA (DETROL LA) 4 mg 24 hr capsule Take 1 capsule by mouth in the morning. clopidogreL 75 mg tablet Take 1 tablet by mouth in the morning. 30 tablet 5 ezetimibe 10 mg tablet Take 1 tablet by mouth in the morning. 90 tablet 3 carvediloL 6.25 mg tablet Take 1 tablet by mouth in the morning and 1 tablet in the evening. Take with meals. 60 tablet 0 insulin glargine 100 unit/mL injection inject 20 Units under the skin every 12 (twelve) hours. 10 mL 0 insulin glargine 100 unit/mL injection inject 15 Units under the skin every 12 (twelve) hours. 10 mL 2 spironolactone 25 mg tablet Take 0.5 tablets by mouth in the morning. 30 tablet 0 DULoxetine 30 mg capsule Take 1 capsule by mouth in the morning and 1 capsule in the evening. pantoprazole 40 mg EC tablet Take 1 tablet by mouth in the morning. raloxifene 60 mg tablet 1 tablet ARIPIPRAZOLE 2 mg tablet TAKE 1 TABLET BY MOUTH EVERY DAY 30 tablet 2 rOPINIRole 0.5 mg tablet Take 1 tablet by mouth at bedtime. 30 tablet 3 diphenoxylate-atropine (LOMOTIL) 2.5-0.025 mg per tablet Take 1 tablet by mouth every 6 (six) hours as needed (diarrhea). 20 tablet 0 ACCU-CHEK NYA PLUS TEST STRP strip 5 BIOTIN ORAL Take 2,000 mg by mouth daily. Fentanyl, Bulk, 100 % Powd I attest that the foregoing medication list in the medical record is true, accurate and complete to the best of my knowledge. SOCIAL HISTORY Social History Socioeconomic History Marital status: Tobacco Use Smoking status: Never Passive exposure: Never Smokeless tobacco: Never Substance and Sexual Activity Alcohol use: No Alcohol/week: 0.0 standard drinks of alcohol Drug use: No Social Determinants of Health Financial Resource Strain: Low Risk (10/22/2023) Overall Financial Resource Strain (CARDIA) Difficulty of Paying Living Expenses: Not hard at all Food Insecurity: No Food Insecurity (10/22/2023) Hunger Vital Sign Worried About Running Out of Food in the Last Year: Never true Ran Out of Food in the Last Year: Never true Transportation Needs: No Transportation Needs (02/03/2023) PRAPARE - Transportation Lack of Transportation (Medical): No Lack of Transportation (Non-Medical): No Physical Activity: Inactive (10/22/2023) Exercise Vital Sign Days of Exercise per Week: 0 days Minutes of Exercise per Session: 0 min Social Connections: Unknown (10/22/2023) Social Connection and Isolation Panel [NHANES] Frequency of Communication with Friends and Family: Three times a week Marital Status: Housing Stability: Low Risk (10/22/2023) Housing Stability Vital Sign Unable to Pay for Housing in the Last Year: No Number of Places Lived in the Last Year: 1 Unstable Housing in the Last Year: No REVIEW OF SYSTEMS Review of Systems Constitutional: Negative. HENT: Negative. Eyes: Negative. Respiratory: Positive for shortness of breath. Negative for apnea, cough, choking, chest tightness, wheezing and stridor. Breasts: Negative. Cardiovascular: Negative. Gastrointestinal: Negative. Genitourinary: Negative. Musculoskeletal: Negative. Skin: Negative. Neurological: Negative. Psychiatric/Behavioral: Positive for confusion. Negative for agitation, behavioral problems, decreased concentration, dysphoric mood, hallucinations, self-injury, sleep disturbance and suicidal ideas. The patient is not nervous/anxious and is not hyperactive. Endocrine: Endocrine negative Objective PHYSICAL EXAMINATION Vitals: 05/24/24 2257 05/24/24 2300 05/25/24 0027 05/25/24 0100 BP: 100/50 100/50 117/59 106/49 Pulse: 63 63 75 65 Resp: 23 24 18 19 Temp: 36 ?C (96.8 ?F) TempSrc: Temporal Artery SpO2: 97% 97% 94% 96% Weight: 183 lb (83 kg) Height: 5' 3" (1.6 m) Physical Exam Vitals and nursing note reviewed. Constitutional: General: She is in acute distress. Appearance: Normal appearance. She is ill-appearing. She is not toxic-appearing or diaphoretic. HENT: Head: Normocephalic and atraumatic. Right Ear: External ear normal. Left Ear: External ear normal. Nose: Nose normal. No congestion or rhinorrhea. Mouth/Throat: Mouth: Mucous membranes are moist. Pharynx: No oropharyngeal exudate or posterior oropharyngeal erythema. Eyes: General: No scleral icterus. Extraocular Movements: Extraocular movements intact. Conjunctiva/sclera: Conjunctivae normal. Pupils: Pupils are equal, round, and reactive to light. Cardiovascular: Rate and Rhythm: Normal rate and regular rhythm. Heart sounds: No murmur heard. No friction rub. No gallop. Pulmonary: Breath sounds: Rhonchi and rales present. Abdominal: General: Abdomen is flat. Bowel sounds are normal. There is no distension. Palpations: Abdomen is soft. Tenderness: There is no abdominal tenderness. There is no guarding. Musculoskeletal: General: Normal range of motion. Cervical back: Normal range of motion and neck supple. Right lower leg: No edema. Left lower leg: No edema. Skin: General: Skin is warm and dry. Neurological: Mental Status: She is alert. Psychiatric: Mood and Affect: Mood normal. Behavior: Behavior normal. Thought Content: Thought content normal. Judgment: Judgment normal. LABS/IMAGING - reviewed EXAMINATION: CT THORAX WO CONTRAST ORDERING PHYSICIAN: JEWEL SEXTON HISTORY: Pneumonia, complication suspected, xray done Respiratory illness, nondiagnostic xray COMPARISON: No prior CT available for comparison. Comparison made to chest radiograph dated 05/24/2024 TECHNIQUE: CT of the chest without intravenous contrast. CT performed according to ALARA principles. TECHNICAL QUALITY: Adequate. FINDINGS: Medical devices: None. Lower neck:8-9 mm hypoattenuating nodule or cyst in the left thyroid lobe. No routine imaging follow-up is recommended for this lesion. No imaged supraclavicular lymphadenopathy. Heart:The heart appears normal in size. No pericardial effusion. Multivessel coronary artery calcifications are present. Aortic valvular calcifications are likely present. There is a left atrial appendage closure device in place. Great vessels: There appears to be a conventional three-vessel branching pattern of the aortic arch. The thoracic aorta demonstrates extensive atherosclerotic calcifications without aneurysmal dilation. The main pulmonary artery is mildly dilated measuring up to 3.1 cm in diameter. Mediastinum:No pathologically enlarged mediastinal or hilar lymph nodes within the limits of a noncontrast exam. The esophagus images within normal limits. Small hiatal hernia. Lungs/pleura:The trachea and main bronchi are patent. Scattered centrilobular appearing nodularity and groundglass opacity is throughout the right lung, most prominent in the right lower lobe. No confluent airspace consolidation. There is diffuse bronchial wall thickening. No frankly suspicious pulmonary nodule or mass identified on this exam. No pleural effusion. No pneumothorax. Normal position of the right and left hemidiaphragm. Chest wall/axilla:No pathologically enlarged axillary lymph nodes. No significant soft tissue abnormality throughout the chest wall. Upper abdomen:The gallbladder is not visualized and is probably surgically absent. Irregular, ill-defined lesion along the anterior aspect of the right kidney measuring approximately 3.3 x 2.4 cm corresponds to the enhancing solid mass seen on the prior CT of the abdomen and pelvis dated 07/09/2023. Bones:No acute or suspicious osseous abnormality. There is suspected osseous demineralization. Mild superior endplate compression deformity at T12 with approximately 30-35% loss of vertebral body height. No bony retropulsion. This appears similar to the previous exam. There is straightening of the normal thoracic kyphosis. IMPRESSION 1. Scattered centrilobular nodularity and groundglass opacities diffusely throughout the right lung, most prominent in the right lower lobe. These findings are nonspecific but probably related to an atypical infectious/inflammatory process. No confluent airspace consolidation is identified. 2. Diffuse bronchial wall thickening throughout both lungs which can represent underlying age-indeterminate bronchitis. 3. Partially imaged right renal lesion measuring at least 3.3 cm consistent with the enhancing renal lesion on the prior CT of the abdomen and pelvis dated 07/09/2023. This is favored to represent a renal cell carcinoma until proven otherwise. 4. Coronary artery and aortic atherosclerosis. 5. Additional chronic findings as above. Exam: Chest (1 View), 05/24/2024 7:00 PM. Ordering Physician: JEWEL SEXTON. History: Pneumonia. Technique: AP view of the chest. Technical Quality: Adequate. Comparison: Chest radiograph 10/23/2023. Findings: Stable cardiomegaly and thoracic aorta. Mild calcified atherosclerotic plaque in the descending thoracic aorta. No airspace consolidation, pleural effusion, or pneumothorax. No acute osseous abnormality. Unchanged mild dextroconvex curvature of the upper thoracic spine. IMPRESSION Impression: No acute intrathoracic disease. EXAM: CT HEAD WO CONTRAST HISTORY: Mental status change, unknown cause TECHNIQUE: CT of the head was performed without intravenous contrast. Sagittal and coronal reformats were generated. COMPARISON: Brain MRI dated 10/22/2023 FINDINGS: The ventricles and sulci are normal in caliber and configuration. No hydrocephalus, midline shift or pathological extra-axial fluid collection is present. The basal cisterns are unremarkable. There is no acute intracranial hemorrhage or significant mass effect. Chronic infarct is redemonstrated in the deep white matter of left parietal lobe. Scattered hypodensities in the periventricular and deep white matter, nonspecific, likely representing microvascular ischemic changes The veras-white matter differentiation is preserved. Partial opacification of right frontal and right ethmoidal air cells with complete opacification of right sphenoid sinuses. The mastoid air cells are clear.. The calvarium and central skull base are unremarkable. IMPRESSION No acute intracranial hemorrhage or significant mass effect. Assessment & Plan Werner Diaz is a 79 year old female with PMH as listed above, admitted to the hospital with: Altered mental status: appears to have been transient as patient appears to be at baseline. CT Head is negative -- Will continue to monitor 2. Acute respiratory distress: secondary to underlying pulmonic infection -- Treat underlying condition -- Oxygen supplementation as needed. 3. Pneumonia/acute bronchitis: noted on imaging. -- Oxygen supplementation as needed -- Continue with azithromycin and ceftriaxone -- Will continue with duoneb scheduled/prn -- Oxygen supplementation as needed -- Will order for other supportive therapy (eg, anti-tussive, decongestant) 4. Paroxysmal atrial fibrillation: in sinus rhythm -- Will continue with coreg 5. Acute cystitis: -- Will continue with ceftriaxone -- Urine culture is pending 6. DM: -- Will continue with insulin glargine and insulin sliding scale 7. GERD: -- Will continue with pantoprazole 8. HTN: -- Will continue with 9. HLD: -- Will continue with Zetia and lipitor Prophylaxis: DVT- enoxaparin Code Status: Full Code Estimated LOS: This inpatient admission will likely require greater than or equal to 2 Midnights. Management is not feasible as an outpatient and there is concern for adverse outcomes if not managed in an inpatient setting. Advance care planning discussed for 18 mins with patient at bedside. Surrogate decision maker: Gosia Hidalgo (child) - [facility] 2024-03-10 09:26:23 A formal shared decision making interaction has occurred with myself (a non interventional physician). The patient is not a candidate for terminal operations manager oral anticoagulation due to significant hx of GIB and falls but is a candidate for short term oral anticoagulation (currently on DAPT) and therefore I agree that this patient is a candidate for Watchman LAAC. The patient's CHADSVASC score is 6 and HASBLED score is >3. Wilver Pringle MD Cardiology Faculty Progress Notes Wilver Baker MD (STAFF) CARDIOVASCULAR DISEASE Expand All Collapse All CARDIOLOGY CLINIC NOTE Chief Complaint: Follow up of CHF History of Present Illness: Werner Diaz is a 78 year old female with chronic HF with improved EF (EF 50-55% 10/2023), CAD s/p ostial LAD and LCx PCI 10/31/22, paroxysmal Afib (not on AC due to GIB), HTN, DM, HLD and mild presents to clinic to establish care. Pt not very active. Uses wheelchair and walker for transfer. Denies CP JOHNSON LE edema orthopnea PND palpitations syncope/presyncope. Last fall in summer 2022. No GIB anymore. Past Medical History: Past Medical History Past Medical History: Diagnosis Date Anxiety Atrial fibrillation Depression Diabetes mellitus type II, controlled Fluid retention GERD (gastroesophageal reflux disease) HTN (hypertension) Hyperlipidemia Left knee pain 07/11/2015 Nerve pain Current Medications: Current Rx Current Outpatient Medications Medication Sig Dispense Refill losartan 25 mg tablet Take 2 tablets by mouth in the morning. 30 tablet 0 ondansetron 4 mg disintegrating tablet Take 1 tablet by mouth every 8 (eight) hours as needed for Nausea and Vomiting (N/V). 20 tablet 0 carvediloL 6.25 mg tablet Take 1 tablet by mouth in the morning and 1 tablet in the evening. Take with meals. 60 tablet 0 ferrous sulfate 325 mg (65 mg iron) tablet Take 1 tablet by mouth in the morning. 30 tablet 0 furosemide 40 mg tablet Take 1 tablet by mouth in the morning and 1 tablet in the evening. 60 tablet 0 Insulin Detemir (LEVEMIR FLEXPEN) 100 unit/mL (3 mL) injection inject under the skin. clopidogreL 75 mg tablet Take 1 tablet by mouth in the morning. 30 tablet 0 insulin glargine 100 unit/mL injection inject 20 Units under the skin every 12 (twelve) hours. 10 mL 0 insulin glargine 100 unit/mL injection inject 15 Units under the skin every 12 (twelve) hours. 10 mL 2 spironolactone 25 mg tablet Take 0.5 tablets by mouth in the morning. 30 tablet 0 diazePAM 5 mg tablet (Schedule IV Drug) TAKE 1 TABLET BY MOUTH EVERY EVENING DULoxetine 30 mg capsule Take 1 capsule by mouth in the morning and 1 capsule in the evening. pantoprazole 40 mg EC tablet Take 1 tablet by mouth in the morning. raloxifene 60 mg tablet 1 tablet ARIPIPRAZOLE 2 mg tablet TAKE 1 TABLET BY MOUTH EVERY DAY 30 tablet 2 clonazePAM 1 mg tablet Take 1 tablet by mouth at bedtime. 30 tablet 0 rOPINIRole 0.5 mg tablet Take 1 tablet by mouth at bedtime. 30 tablet 3 diphenoxylate-atropine (LOMOTIL) 2.5-0.025 mg per tablet Take 1 tablet by mouth every 6 (six) hours as needed (diarrhea). 20 tablet 0 ipratropium-albuterol 0.5 mg-3 mg(2.5 mg base)/3 mL nebulizer solution Inhale 3 mL every 4 (four) hours as needed for Wheezing. 180 mL 0 ACCU-CHEK NYA PLUS TEST STRP strip 5 traMADOL (ULTRAM) 50 mg tablet Take 1 tablet by mouth every 4 (four) hours as needed for Pain (scale 4-6). 40 tablet 0 BIOTIN ORAL Take 2,000 mg by mouth daily. ezetimibe (ZETIA) 10 mg tablet Take 1 tablet by mouth in the morning. Fentanyl, Bulk, 100 % Powd GABAPENTIN ORAL Take 800 mg by mouth 3 (three) times daily. metFORMIN (GLUCOPHAGE) 1,000 mg tablet Take 1 tablet by mouth in the morning and 1 tablet in the evening. Take with meals. potassium chloride (K-DUR) 10 mEq CR tablet Take 2 tablets by mouth in the morning. tolterodine LA (DETROL LA) 4 mg 24 hr capsule Take 1 capsule by mouth in the morning. No current facility-administered medications for this visit. Physical Examination: Vitals: 03/04/24 1133 BP: 127/59 Pulse: 62 Resp: 16 SpO2: 93% General: Well developed HEENT: Normocephalic, atraumatic Neck: No JVD Lungs: Clear to auscultation bilaterally Cardio: Distinct S1 and S2, RRR, Systolic murmur Abdomen: Non-distended : Not examined. Rectal: Not examined. Extremities: Trace BLE edema. Venous stasis of BLE. Skin: No rashes. Neuro: A&O x 4. Echocardiogram: 10/2023 Left Ventricle Left ventricle size is normal. Mildly increased wall thickness. Septal motion is consistent with bundle branch block. No regional wall motion abnormalities. Global hypokinesis present. Low normal systolic function with a visually estimated EF of 50 - 55%. There is impaired relaxation. Right Ventricle Right ventricle is mildly dilated. Normal systolic function. Left Atrium Left atrium size is normal. Saline contrast shows no shunt. Right Atrium Not well visualized. IVC/SVC IVC diameter is less than or equal to 21 mm and decreases greater than 50% during inspiration; therefore the estimated right atrial pressure is normal (~0-5 mmHg). Mitral Valve Mildly thickened leaflets. Mildly calcified leaflets. Mild mitral annular calcification. Trace transvalvular regurgitation. No stenosis. Tricuspid Valve Tricuspid valve structure is normal. Mild transvalvular regurgitation. There is moderate pulmonary hypertension. Right ventricular systolic pressure is 40-45 mmHg. RA pressure is 0-5 mmHg. No stenosis. Aortic Valve Tricuspid. Mildly thickened cusps. Mildly calcified cusps. Moderate annular calcification. Mild transvalvular regurgitation. Consistent with mild aortic stenosis. LVOT diameter is 2.1 cm. AV area by continuity VTI is 1.6 cm2. Peak velocity 2.2 m/sec. Mean gradient 12.6 mmHg. Pulmonic Valve Not well visualized. Trace transvalvular regurgitation. No stenosis. Ascending Aorta Normal sized aorta. Pericardium Evidence of epicardial fat. No pericardial effusion. Coronary angiogram: 10/31/22 LM: Distal plaquing LAD: Ostial 70 to 80% stenosis LCX; Ostial 80-90% stenosis RCA: Small vessel mid 20% stenosis LVEDP;14mm Hg Next we performed Right heart cath using 7 F Sherwood Saba catheter and serially measured SAo2 and pressure followed by determination of CO using th RA: 7mm Hg RV:43/3 mm Hg PA: 48/7 mean 26 mm Hg PCAP: 13mm Hg RASAO2:71 PASAO2:64 CO: 4.4(T) 7.7(F) CI: 2.3(T) 4 (F) PVR 179 Intervention Impression Successful Shock wave atherectomy to LCX Successful PCI of LAD and LCX ostium with LELA by culotte technique Intervention recommendations Monitor in telemetry ASA 81 mg PO daily Plavix 75 mg PO daily Hold Heparinx 24 hrs Fu in my clinic in 3 to 4 weeks Watchman procedure staged Assessment and Plan Chronic HF with improved EF 50-55%, ICM, NYHA III, Stage C -Spironolactone 12.5 mg PO daily -Losartan 25 mg PO daily -Coreg 6.25 mg PO BID -Lasix 20 BID -No Farxiga due to recurrent UTIs CAD s/p ostial LAD and LCx PCI 10/31/22 -Stable without chest pain -Continue ASA Plavix and BB -restart lipitor 80 daily and zetia 10 daily -recheck lipids next visit Paroxysmal atrial fibrillation ([id number]) w/ hx of fairly recent CVA HASBLED>3 due to GIB and fall risk -Eliquis stopped during recent admission due to GIB; currently on DAPT; no GIB now -Coreg 6.25 mg BID -Watchman SEYD as pt and family prefer not to retart eliquis pending procedure given high risk of falls too [facility] 2023-10-22 01:32:50 [facility] Hospitalist Admission H&P Date of Service: 10/22/2023 CHIEF COMPLAINT: Patient has had altered mentation along with slurred speech. HISTORY OF PRESENT ILLNESS Werner Diaz is a 78 year old female who presents with altered mental status. According to patient's daughter her symptoms have been progressing since Thursday, when her first notified she was confused and having a hard time remembering some things that she has known quite easily. Her symptoms were not any better by Thursday when the daughter called to check on her mother. By this time patient's speech was also slurred and she was not talking like she normally does. The family was not really sure what was causing her symptoms so they brought her into the emergency room today as she was not improving. Her workup in the ER was positive for subacute stroke. This occurred in the area of the left parietal lobe. Continue with antiplatelet therapy and statin therapy. Monitor hemodynamics closely and get an MRI for stroke protocol in the morning. Echocardiogram and carotid Dopplers are pending. Patient will be getting physical therapy, and depending on how physical therapy does patient may benefit from inpatient rehab. Patient will be admitted for inpatient hospitalization to continue with anticoagulation, antiplatelet therapy, statin therapy and gentle blood pressure control over the next 24 to 48 hours.. PAST MEDICAL HISTORY Past Medical History: Diagnosis Date Anxiety Atrial fibrillation Depression Diabetes mellitus type II, controlled Fluid retention GERD (gastroesophageal reflux disease) HTN (hypertension) Hyperlipidemia Left knee pain 07/11/2015 Nerve pain PAST SURGICAL HISTORY Past Surgical History: Procedure Laterality Date APPENDECTOMY BACK SURGERY CHOLECYSTECTOMY ESOPHAGOGASTRODUODENOSCOPY N/A 02/13/2016 Surgeon: Wendy Mcclellan MD; [place] [facility] [place]STERECTOMY AR ANES NERVE MUSC TENDON FASCIA&BURSA KNEE&/POPLT AR DILATION ESOPH UNGUIDED SOUND/BOUGIE 1/MULT PASS 02/13/2016 AR ESOPHAGOGASTRODUODENOSCOPY TRANSORAL DIAGNOSTIC 02/13/2016 TONSILLECTOMY TOTAL KNEE ARTHROPLASTY Left ALLERGIES No Known Allergies MEDICATIONS Current home medication list reviewed: Patient's Medications START taking these medications No medications on file CONTINUE taking these medications which have NOT CHANGED ACCU-CHEK NYA PLUS TEST STRP STRIP ACETAMINOPHEN-CODEINE (TYLENOL #3) 300-30 MG TABLET Take 1 tablet by mouth every 4 (four) hours as needed for Pain (scale 7-10). ARIPIPRAZOLE 2 MG TABLET TAKE 1 TABLET BY MOUTH EVERY DAY ATORVASTATIN 40 MG TABLET Take 1 tablet by mouth at bedtime. BIOTIN ORAL Take 2,000 mg by mouth daily. CARVEDILOL 6.25 MG TABLET Take 1 tablet by mouth in the morning and 1 tablet in the evening. Take with meals. CLONAZEPAM 1 MG TABLET Take 1 tablet by mouth at bedtime. CLOPIDOGREL 75 MG TABLET Take 1 tablet by mouth in the morning. DAPAGLIFLOZIN PROPANEDIOL (FARXIGA) 10 MG TABLET Take 1 tablet by mouth every morning. PLS SCHEDULE FOLLOW UP WITH PROVIDER DIAZEPAM 5 MG TABLET (Schedule IV Drug) TAKE 1 TABLET BY MOUTH EVERY EVENING DIPHENOXYLATE-ATROPINE (LOMOTIL) 2.5-0.025 MG PER TABLET Take 1 tablet by mouth every 6 (six) hours as needed (diarrhea). DULOXETINE 30 MG CAPSULE Take 1 capsule by mouth in the morning and 1 capsule in the evening. EZETIMIBE (ZETIA) 10 MG TABLET Take 1 tablet by mouth in the morning. FENOFIBRATE 150 MG CAPSULE Take 1 capsule by mouth in the morning. FENTANYL, BULK, 100 % POWD FERROUS SULFATE 325 MG (65 MG IRON) TABLET Take 1 tablet by mouth in the morning. FUROSEMIDE 40 MG TABLET Take 1 tablet by mouth in the morning and 1 tablet in the evening. GABAPENTIN ORAL Take 800 mg by mouth 3 (three) times daily. INSULIN DETEMIR (LEVEMIR FLEXPEN) 100 UNIT/ML (3 ML) INJECTION inject under the skin. INSULIN GLARGINE 100 UNIT/ML INJECTION inject 15 Units under the skin every 12 (twelve) hours. INSULIN GLARGINE 100 UNIT/ML INJECTION inject 20 Units under the skin every 12 (twelve) hours. IPRATROPIUM-ALBUTEROL 0.5 MG-3 MG(2.5 MG BASE)/3 ML NEBULIZER SOLUTION Inhale 3 mL every 4 (four) hours as needed for Wheezing. LOSARTAN 25 MG TABLET Take 1 tablet by mouth in the morning. METFORMIN (GLUCOPHAGE) 1,000 MG TABLET Take 1 tablet by mouth in the morning and 1 tablet in the evening. Take with meals. ONDANSETRON 4 MG DISINTEGRATING TABLET Take 1 tablet by mouth every 8 (eight) hours as needed for Nausea and Vomiting (N/V). PANTOPRAZOLE 40 MG EC TABLET Take 1 tablet by mouth in the morning. POTASSIUM CHLORIDE (K-DUR) 10 MEQ CR TABLET Take 20 mEq by mouth daily. RALOXIFENE 60 MG TABLET 1 tablet ROPINIROLE 0.5 MG TABLET Take 1 tablet by mouth at bedtime. SPIRONOLACTONE 25 MG TABLET Take 0.5 tablets by mouth in the morning. TOLTERODINE LA (DETROL LA) 4 MG 24 HR CAPSULE Take 4 mg by mouth daily. TRAMADOL (ULTRAM) 50 MG TABLET Take 1 tablet by mouth every 4 (four) hours as needed for Pain (scale 4-6). START taking Modified Medications as Prescribed No medications on file STOP taking these medications No medications on file FAMILY HISTORY No family history on file. SOCIAL HISTORY Social History Socioeconomic History Marital status: Tobacco Use Smoking status: Never Passive exposure: Never Smokeless tobacco: Never Substance and Sexual Activity Alcohol use: No Alcohol/week: 0.0 standard drinks of alcohol Drug use: No Social Determinants of Health Financial Resource Strain: Low Risk (02/03/2023) Overall Financial Resource Strain (CARDIA) Difficulty of Paying Living Expenses: Not hard at all Food Insecurity: No Food Insecurity (02/03/2023) Hunger Vital Sign Worried About Running Out of Food in the Last Year: Never true Ran Out of Food in the Last Year: Never true Transportation Needs: No Transportation Needs (02/03/2023) PRAPARE - Transportation Lack of Transportation (Medical): No Lack of Transportation (Non-Medical): No Physical Activity: Inactive (02/03/2023) Exercise Vital Sign Days of Exercise per Week: 0 days Minutes of Exercise per Session: 0 min Social Connections: Unknown (02/03/2023) Social Connection and Isolation Panel [NHANES] Frequency of Communication with Friends and Family: Twice a week Marital Status: Housing Stability: Low Risk (02/03/2023) Housing Stability Vital Sign Unable to Pay for Housing in the Last Year: No Number of Places Lived in the Last Year: 1 Unstable Housing in the Last Year: No REVIEW OF SYSTEMS 10 systems negative except per HPI PHYSICAL EXAMINATION BP (!) 162/75 | Pulse 89 | Temp 36.6 ?C (97.9 ?F) (Oral) | Resp 21 | Ht 1.6 m (5' 3") | Wt 83.9 kg (185 lb) | SpO2 96% | BMI 32.77 kg/m? General: No acute distress HEENT: Normal oral mucosa, anicteric sclerae, NCAT Cardiovascular: RRR w/ MAREN II/ Lungs: Symmetric expansion, clear bilaterally Abdomen: Soft, NTND Musculoskeletal: No synovitis, normal muscle mass Genitourinary: Normal Skin: No rash, no skin lesions Extremities: No clubbing, no cyanosis, no lower extremity edema Neuro: AAOx2-3, no focal deficits; patient has some confusion. Patient moves all extremities well Psych: Normal affect LABS - reviewed pertinent labs as below: CBC BMP PT/INR WBC (10*3/?L) Date Value 10/21/2023 8.34 NA (mmol/L) Date Value 10/21/2023 137 No results found for: "PT" RBC (10*6/?L) Date Value 10/21/2023 4.70 K (mmol/L) Date Value 10/21/2023 4.0 INR (no units) Date Value 02/05/2023 1.4 PLT (10*3/?L) Date Value 10/21/2023 275 CALCIUM (mg/dL) Date Value 10/21/2023 10.1 HGB (g/dL) Date Value 10/21/2023 14.7 CL (mmol/L) Date Value 10/21/2023 100 aPTT HCT (%) Date Value 10/21/2023 44.4 BUN (mg/dL) Date Value 10/21/2023 22 APTT Patient (Seconds) Date Value 10/31/2022 88 (H) CREATININE (mg/dL) Date Value 10/21/2023 0.89 IMAGING - reviewed, pertinent results as below: Hospital Encounter on 10/21/23 CT HEAD WO CONTRAST Narrative EXAM: CT HEAD WO CONTRAST HISTORY: 78 years-old Female; Provided indication: Mental status change, unknown cause . History obtained from [facility]: Increasing confusion since Thursday. TECHNIQUE: Axial CT of the head was performed and reconstructed at 5 mm intervals. Coronal and sagittal reformatted images were generated. COMPARISON: CT head dated 02/02/2023 FINDINGS: The ventricles and cerebral sulci are normal in caliber and configuration. No midline shift or pathological extra-axial fluid collection is present. The basal cisterns are unremarkable. No acute intracranial hemorrhage or significant mass effect is visualized. An age-indeterminate infarct of the left parietal lobe is annotated on series 10 image 45. Periventricular hypodensities are nonspecific but likely represent sequelae of microvascular ischemic disease. The veras-white matter differentiation is otherwise preserved. There is partial opacification of the right sphenoid sinus. The mastoid air cells and paranasal air sinuses are otherwise clear. The calvarium and central skull base are unremarkable. Impression Age-indeterminate left parietal lobe infarct, favoring to be subacute to chronic. An MRI can be pursued for further evaluation. Preliminary Report Dictated by Resident: Mor Darby ASSESSMENT: 1. Patient with a subacute CVA 2. Patient with atrial fibrillation 3. History of atrial PLAN: 1. Continue with antiplatelet therapy and statin therapy. Modify risk factors as patient high risk of secondary stroke and 6 months. Continue with medication for rate control and continue with anticoagulation. At this time we will continue with DVT prophylaxis. Continue with medication for rate control. Continue with statin therapy. Continue with antiplatelet therapy. Continue with physical therapy/Occupational Therapy/speech therapy. Patient swallow study was done by bedside and patient is not having issues with dysphagia at this time. Lipid profile in the morning. 2. Atrial fibrillation; continue with medication for rate control and continue anticoagulation 3. History of type 2 diabetes; strict blood sugar control; check A1c level 4. History of hypertension; resume antihypertensives 5. History of depression; continue with antidepressants DVT prophylaxis: enoxaparin Stress ulcer prophylaxis: pantoprazole Code status: FULL Advanced Care Planning (Z71.89) Above assessment and plan discussed at length with patient, patient expressed full understanding. Questions and concerned addressed. Surrogate decision maker: Daughter Level of care expected after discharge: Inpt rehab vs HOME Time spent: 3 minutes discussing the advanced care plan Smoking Cessation: (Z71.6) Tobacco user?: NO Patient will require inpatient stay of 2 midnights or more given high risk of morbidity and mortality. 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 Questions encouraged and answered accordingly. Written Consent obtained from Werner Diaz. According to [facility] Operating Procedures Policy, a Time Out was performed to include procedure performed, identity of proceduralist, and identity of procedure recipient by two identifiers. Co-signed/witnessed by Kya Darby RN. An ultrasound guided, 4 Fr., 8 cm. MIDLINE was then placed in the left basilic vein, in one attempt(s). Local anesthetic not used. Labs obtained: no Patient tolerated procedure well: yes Complications: no REF#: [id number] Lot #: [id number] Exp: 12/15/25 H BALE HEADER Slade Gill RN [facility] 2024-03-10 09:26:29 Watchman Device Implantation Procedure: Left Atrial Appendage Occlusion via a Watchman device Indication: Paroxysmal Atrial Fibrillation with a [id number] score >3 and intolerant to anticoagulation due to GI Bleeding. Technique: After obtaining informed consent the patient was prepped and draped in the usual sterile fashion. Monitored anesthesia care was initiated under anesthesia team guidance (see [facility] records). A transesophageal echocardiogram was performed. The left atrial appendage was free from clot. Measurements of the left atrial appendage were taken and were deemed appropriate for device implantation. Vascular access was obtained via the right femoral vein under ultrasound guidance. A transseptal puncture was then performed. The left atrial pressure was found to be 19 mmHg. Heparin was given prior to placing a sheath into the left atrium. A long sheath was then advanced into the left atrium via the septostomy. The long sheath was then exchanged out for the Watchman delivery system. The pigtail was advanced to the left atrial appendage and a contrast injection was performed. Measurements of the left atrial appendage were then taken on fluoroscopic images. A 24 mm Watchman device was then deployed into the appendage. TED and contrast shot confirmed that the device was in an appropriate position. Tug test was then performed under cineangiography. The TED and repeat contrast injection showed that the device is well-seated with no leaks. This confirmed appropriate fixation. The device was then released. TED measurements and images confirmed appropriate device position. The Watchman sheath was removed from the heart and out of circulation. Hemostasis was achieved using manual compression and a perclose hemostatic internal suture. The patient tolerated the procedure well and there were no acute complications. 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 Michael Bethea MD Cardiac Electrophysiology [facility]
[2024-06-15 11:49] LABS: Absolute Eosinophils 0.1 K/uL (0-0.5); Absolute Lymphocytes (CBC) 1.3 K/uL (0.7-4.9); Absolute Monocytes 0.5 K/uL (0.1-1.3); Absolute Neutrophil 1.8 K/uL (1.8-8.0); Basophils % 0.4 % (0-1.3); Eosinophils % 2.4 % (0-4.4); Hematocrit 38.7 % (36.0-45.0); Hemoglobin 13.4 g/dL (12.0-15.0); Lymphocytes % 36.4 % (15.3-44.8); MCH 31.5 pg (27.0-35.0); MCHC 34.6 g/dL (32.0-36.0); MPV 7.8 fL (7.6-11.3); Monocytes % 13.3 % (3.3-12.3); Neutrophils % 47.5 % (41.7-73.7); Nucleated Red Blood Cells % 0.3 % (0-0); Platelets 144 thou/uL (152-406); RBC Red Blood Cell Count 4.25 M/uL (3.86-4.86); Red Cell Distribution Width 15.1 % (12.1-15.2)
[2024-06-15] MEDS ORDERED: ALBUTEROL 2.5 MG/3 ML NEB SOL ONE (11:57)
[2024-06-15] MEDS ORDERED: PANTOPRAZOLE 40 MG INJ ONE (11:58)
[2024-06-15] MEDS ORDERED: IPRATROPIUM BROM 0.5MG/2.5ML ONE (11:58)
[2024-06-15 12:13] LABS: PT Prothrombin Time 12.8 SECONDS (9.4-12.5); PTT, Activated Partial Thromb 32.4 SECONDS (24.3-36.9); Protime INR 1.22
[2024-06-15 12:18] LABS: Albumin 2.5 g/dL (3.4-5.0); Albumin/Globulin Ratio 0.7 (1.1-1.8); Anion Gap 7.2 mEq/L (5.0-15.0); Bilirubin Direct 0.4 mg/dL (0-0.2); Bilirubin Indirect, Calculated 0.8 mg/dL (0.2-0.8); Bilirubin Total 1.2 mg/dL (0.2-1.0); Globulin 3.5 g/dL (2.3-3.5); Potassium 4.2 mEq/L (3.5-5.1); Troponin High Sensitivity 12.3 pg/mL (<58.9)
--- NOTE | 2024-06-15 13:34 | RAD REPORT ---
EXAM: CT CHEST, ABDOMEN AND PELVIS WITH CONTRAST CLINICAL INDICATION: Female, 79 years old. cough, rectal bleeding TECHNIQUE: CT chest, abdomen, and pelvis was performed, following the administration of contrast, as per department protocol. Axial, sagittal and coronal reconstructions were obtained. One or more of the following dose reduction techniques were used: Automated exposure control, adjustment of the mA a nd/or kV according to patient size, and/or iterative reconstruction. Unless otherwise specified, incidental findings do not require dedicated imaging follow-up. COMPARISON: No prior exam. FINDINGS: Breathing motion artifact somewhat limits evaluation. LUNGS AND AIRWAYS: No evidence of airspace or interstitial process. No nodules. PLEURA: No pleural effusion. No pneumothorax. MEDIASTINUM AND LYMPH NODES: No mediastinal mass or fluid collection. Mildly prominent mediastinal ly mph nodes, largest is pretracheal measuring 8 mm in short axis. Normal sized hilar hilar, and axillary lymph nodes. THORACIC AORTA: Normal caliber and configuration. PULMONARY ARTERIES: Normal caliber. OSSEOUS STRUCTURES AND CHEST WALL: Intact. LIVER: Normal in size and contour. No focal lesion or biliary dilitation. BILIARY SYSTEM: No suspicious abnormalities. PANCREAS: No mass, ductal dilation, or kev-pancreatic fluid. SPLEEN: Normal size. No focal lesion. ADRENALS: Normal; no mass. KIDNEYS AND URETERS: Anterior cortical right mid to lower pole exophytic heterogeneously enhancing ma ss measuring 3.3 x 2.8 x 2.9 cm in greatest transverse, AP, and CC dimensions, concerning for malignancy until proven otherwise. Normal size and contour otherwise. No hydronephrosis. URINARY BLADDER: Normal contour. GASTROINTESTINAL TRACT: No bowel obstruction, free air, significant free fluid or abscess. APPENDIX: No inflammatory changes in region of appendix. LYMPH NODES: Indeterminate right retroperitoneal lymph node at the level of the right renal vein on a xial image 90, measuring 7 mm in short axis. ABDOMINAL AORTA AND OTHER VESSELS: Normal caliber aorta and IVC. MUSCULOSKELETAL: No acute or suspicious osseous abnormality. Mild superior endplate compression defor mity at T12, favored to be chronic. Dextroconvex scoliosis of the lumbar spine with apex at L4. IMPRESSION: No acute abnormalities seen in the chest, abdomen or pelvis. Incidentally noted exophytic right renal cortical 3.3 cm solid mass, concerning for malignancy. Indet erminate right retroperitoneal lymph node at the level of the renal vein measuring 7 mm in short axis. Nonspecific mildly prominent mediastinal lymph nodes, favored to be reactive/inflammatory. Other inci dental findings as above. THIS REPORT CONTAINS FINDINGS THAT MAY BE SIGNIFICANT TO PATIENT CARE. The findings were verbally com municated via telephone to Akash Dewitt on 06/15/2024 1:17PM.
--- NOTE | 2024-06-15 14:47 | ER ---
Nurse's Notes [facility] Name: Werner Yo Age: 79 yrs Sex: Female : 1945 Arrival Date: 06/15/2024 Time: 11:12 Bed 16 Private MD: Diagnosis: Melena;Acute bronchospasm Presentation: 06/15 11:10 Chief complaint: EMS states: FROM [facility], COUGH AND RECENT PNA RHONCHI db BY EMS, BLACK TARRY STOOLS THIS AM, ABD PAIN. Coronavirus screen: Client denies travel out of the [place] in the last 14 days. At this time, the client does not indicate any symptoms associated with coronavirus-19. Ebola Screen: Patient negative for fever greater than or equal to 101.5 degrees Fahrenheit, and additional compatible Ebola Virus Disease symptoms Patient denies exposure to infectious person. Patient denies travel to an Ebola-affected area in the 21 days before illness onset. No symptoms or risks identified at this time. Initial Sepsis Screen: Does the patient meet any 2 criteria? No. Patient's initial sepsis screen is negative. Does the patient have a suspected source of infection? No. Patient's initial sepsis screen is negative. Risk Assessment: Do you want to hurt yourself or someone else? Patient reports no desire to harm self or others. Onset of symptoms was June 15, 2024. 11:10 Method Of Arrival: EMS: [facility] db 11:10 Acuity: ALTON 3 db Triage Assessment: 11:20 General: Appears in no apparent distress. comfortable, Behavior is calm, cooperative. db Pain: Complains of pain in abdomen. Neuro: Level of Consciousness is awake, alert, obeys commands, Oriented to person, place, time, situation. Respiratory: Reports shortness of breath Onset: The symptoms/episode began/occurred gradually, the patient has moderate shortness of breath. Historical: - Allergies: 11:20 No Known Allergies; db - PMHx: 11:20 ACUTE POSTHEMORRHAGIC ANEMIA; acute pulmonary edema; acute respiratory failure; db Anxiety; chronic fatigue; Chronic obstructive lung disease; Congestive heart failure; GERD; diabetes mellitus; hypotension; Hypertensive disorder; overactive bladder; Hyperlipidemia; Paroxysmal Atrial Fibrillation; Major Depressive Disorder; DYSPHAGIA; cognitive communication deficit; chronic muscle weakness; Bipolar disorder; - Immunization history:: Adult Immunizations unknown. - Infectious Disease History:: Denies. - Social history:: Smoking status: Patient denies any tobacco usage or history of. - Family history:: not pertinent. Screenin:45 [facility] ED Fall Risk Assessment (Adult) History of falling in the last 3 months, db including since admission No falls in past 3 months (0 pts) Confusion or Disorientation No (0 pts) Intoxicated or Sedated No (0 pts) Impaired Gait Yes (1 pt) Mobility Assist Device Used Yes (1 pt) Altered Elimination No (0 pt) Score/Fall Risk Level 0 - 2 = Low Risk Oriented to surroundings, Maintained a safe environment. Abuse screen: Denies threats or abuse. Denies injuries from another. Nutritional screening: No deficits noted. Tuberculosis screening: No symptoms or risk factors identified. Assessment: 11:45 Reassessment: Patient appears in no apparent distress at this time. Patient and/or db family updated on plan of care and expected duration. Pain level reassessed. Patient is alert, oriented x 3, equal unlabored respirations, skin warm/dry/pink. General: Appears in no apparent distress. comfortable, Behavior is calm, cooperative. Neuro: Level of Consciousness is awake, alert, obeys commands, Oriented to person, place, time, situation. Cardiovascular: Rhythm is sinus rhythm. Respiratory: Airway is patent Respiratory effort is even, unlabored, Respiratory pattern is regular, symmetrical, Breath sounds are coarse bilaterally. Breath sounds with rhonchi bilaterally. 13:07 Reassessment: Patient appears in no apparent distress at this time. Patient and/or db family updated on plan of care and expected duration. Pain level reassessed. Patient is alert, oriented x 3, equal unlabored respirations, skin warm/dry/pink. 15:00 Reassessment: Patient appears in no apparent distress at this time. Patient and/or db family updated on plan of care and expected duration. Pain level reassessed. Patient is alert, oriented x 3, equal unlabored respirations, skin warm/dry/pink. Vital Signs: 11:10 BP 121 / 67; Pulse 89; Resp 18; Temp 98; Pulse Ox 94% on R/A; Weight 79.83 kg; Height 5 db ft. 6 in. ; 13:07 BP 109 / 52; Pulse 83; Resp 18; Pulse Ox 100% on 2 lpm NC; db 13:59 BP 95 / 52; Pulse 77; Resp 18; Pulse Ox 99% on 2 lpm NC; db 15:00 BP 105 / 60; Pulse 76; Resp 18; Pulse Ox 99% ; db 11:10 Body Mass Index 28.41 (79.83 kg, 167.64 cm) db ED Course: 11:17 Patient arrived in ED. db 11:18 Clifford Gongora MD is Attending Physician. rt 11:20 Triage completed. db 11:20 Arm band placed on Patient placed in an exam room. db 11:22 Mariely Arreaga, WHITNEY is Primary Nurse. db 11:34 Initial lab(s) drawn, by me, sent to lab. EKG done, by ED staff, reviewed by Clifford Gongora MD. Inserted saline lock: 20 gauge in right antecubital area, using aseptic technique. Blood collected. Flushed with 10 mL NS. 12:38 CT Chest, Abdomen, Pelvis - W/Contrast In Process Unspecified. EDMS 13:07 Patient has correct armband on for positive identification. Bed in low position. Call db light in reach. Side rails up X 1. Client placed on continuous cardiac and pulse oximetry monitoring. NIBP monitoring applied. surveillance monitor on. Pulse ox on. NIBP on. Warm blanket given. Pillow given. 13:59 Repeat lab(s) drawn. sent to lab. db 14:46 Bandar Dewitt MD is Hospitalizing Provider. rt 15:28 Provided Education on: ADMISSION TO OR FOR SCOPE. db 15:28 No provider procedures requiring assistance completed. Patient admitted, IV remains in db place. Administered Medications: 13:00 Drug: Albuterol Inhalation 2.5 mg Inhalation once Route: Inhalation; db 15:00 Follow up: Response: No adverse reaction db 13:00 Drug: Ipratropium Inhalation Aerosol 0.5 mg Inhalation once Route: Inhalation; db 15:00 Follow up: Response: No adverse reaction db 13:00 Drug: Pantoprazole IVP 80 mg IVP once Route: IVP; Site: right antecubital; db 15:00 Follow up: Response: No adverse reaction db Medication: 11:45 VIS not applicable for this client. db Outcome: 14:47 Decision to Hospitalize by Provider. rt 15:28 Admitted to OR accompanied by nurse, Report called to BEDSIDE REPORT GIVEN db 15:28 Condition: stable 15:28 Instructed on the need for admit, 15:30 Patient left the ED. db Signatures: Dispatcher [employer] Mariely Zazueta RN RN db Clifford Gongora MD MD rt
--- NOTE | 2024-06-15 14:48 | EDPHYS ---
Physician Documentation [facility] Name: Werner Yo Age: 79 yrs Sex: Female : 1945 Arrival Date: 06/15/2024 Time: 11:12 Bed 16 Private MD: ED Physician Clifford Gongora HPI: 06/15 11:50 This 79 yrs old Female presents to ER via EMS with complaints of Black/Tarry Stools, rt Productive Cough. 11:50 Patient presents to the ED with productive cough, black tarry stools starting today. rt Reports mild dyspnea. Denies abdominal pain, nausea, vomiting, acute complaints, symptoms are moderate in severity, no other aggravating or alleviating factors.. Historical: - Allergies: 11:20 No Known Allergies; db - PMHx: 11:20 ACUTE POSTHEMORRHAGIC ANEMIA; acute pulmonary edema; acute respiratory failure; db Anxiety; chronic fatigue; Chronic obstructive lung disease; Congestive heart failure; GERD; diabetes mellitus; hypotension; Hypertensive disorder; overactive bladder; Hyperlipidemia; Paroxysmal Atrial Fibrillation; Major Depressive Disorder; DYSPHAGIA; cognitive communication deficit; chronic muscle weakness; Bipolar disorder; - Immunization history:: Adult Immunizations unknown. - Infectious Disease History:: Denies. - Social history:: Smoking status: Patient denies any tobacco usage or history of. - Family history:: not pertinent. ROS: 11:50 Constitutional: Negative for fever, chills, and weight loss, Cardiovascular: Negative rt for chest pain, palpitations, and edema, MS/Extremity: Negative for injury and deformity, Skin: Negative for injury, rash, and discoloration, Neuro: Negative for headache, weakness, numbness, tingling, and seizure, 11:50 Respiratory: Positive for cough, shortness of breath, 11:50 Abdomen/GI: Positive for black/tarry stool, Negative for abdominal pain, Exam: 11:50 Constitutional: This is a well developed, well nourished patient who is awake, alert, rt and in no acute distress. Head/Face: Normocephalic, atraumatic. Chest/axilla: Normal chest wall appearance and motion. Nontender with no deformity. No lesions are appreciated. Cardiovascular: Regular rate and rhythm with a normal S1 and S2. No gallops, murmurs, or rubs. Normal PMI, no JVD. No pulse deficits. Abdomen/GI: Soft, non-tender, with normal bowel sounds. No distension or tympany. No guarding or rebound. No evidence of tenderness throughout. Skin: Warm, dry with normal turgor. Normal color with no rashes, no lesions, and no evidence of cellulitis. MS/ Extremity: Pulses equal, no cyanosis. Neurovascular intact. Full, normal range of motion. Neuro: Awake and alert, GCS 15, oriented to person, place, time, and situation. Cranial nerves II-XII grossly intact. Motor strength 5/5 in all extremities. Sensory grossly intact. Cerebellar exam normal. Normal gait. 11:50 ECG was reviewed by the Attending Physician. 11:50 Respiratory: Wheezes heard on all lung forrest, no respiratory distress, Vital Signs: 11:10 BP 121 / 67; Pulse 89; Resp 18; Temp 98; Pulse Ox 94% on R/A; Weight 79.83 kg; Height 5 db ft. 6 in. ; 13:07 BP 109 / 52; Pulse 83; Resp 18; Pulse Ox 100% on 2 lpm NC; db 13:59 BP 95 / 52; Pulse 77; Resp 18; Pulse Ox 99% on 2 lpm NC; db 15:00 BP 105 / 60; Pulse 76; Resp 18; Pulse Ox 99% ; db 11:10 Body Mass Index 28.41 (79.83 kg, 167.64 cm) db MDM: 11:18 Medical Screening Exam initiated rt 15:04 Differential Diagnosis: Other Bronchospasm, pneumonia, upper GI bleed, melena. Data rt reviewed: vital signs, nurses notes, lab test result(s), radiologic studies. Consideration of Admission/Observation Patient was admitted/placed on observation. Management of patient was discussed with the following: Hospice Volunteer Coordinator: GI to scope today. I considered the following discharge prescriptions or medication management in the emergency department Medications were administered in the Emergency Department. See MAR. Independent interpretation of the following test(s) in the Emergency Department CT Scan: My interpretation is no bowel obstruction. Test considered but Not performed: X-ray: ct done, cxr redundant. Care significantly affected by the following chronic conditions: Congestive Heart Failure, Chronic Obstructive Pulmonary Disease. Counseling: I had a detailed discussion with the patient and/or guardian regarding the historical points, exam findings, and any diagnostic results supporting the discharge/admit diagnosis, lab results, radiology results, the need for further work-up and treatment in the hospital. Response to treatment: There is no appreciated change of the patient's symptoms at this time. 06/15 11:28 Order name: Basic Metabolic Panel; Complete Time: 12:51 rt 06/15 11:28 Order name: CBC with Diff; Complete Time: 12:51 rt 06/15 11:28 Order name: LFT's; Complete Time: 12:51 rt 06/15 11:28 Order name: PT-INR; Complete Time: 12:51 rt 06/15 11:28 Order name: Troponin HS; Complete Time: 12:51 rt 06/15 11:28 Order name: Ptt, Activated; Complete Time: 12:51 rt 06/15 11:28 Order name: Type And Screen; Complete Time: 12:51 rt 06/15 14:57 Order name: ABO/RH no charge EDMS 06/15 11:28 Order name: CT Chest, Abdomen, Pelvis - W/Contrast; Complete Time: 13:36 rt 06/15 11:28 Order name: Cardiac monitoring; Complete Time: 11:44 rt 06/15 11:28 Order name: EKG - Nurse/Tech; Complete Time: 11:44 rt 06/15 11:28 Order name: IV Saline Lock; Complete Time: 11:44 rt 06/15 11:28 Order name: Labs collected and sent; Complete Time: 11:44 rt 06/15 11:28 Order name: O2 Per Protocol; Complete Time: 11:45 rt 06/15 11:28 Order name: O2 Sat Monitoring; Complete Time: 11:45 rt EC:50 Rate is 89 beats/min. Rhythm is regular, Normal Sinus Rhythm with No ectopy. Left axis rt deviation noted. OH interval is normal. QRS interval is normal. QT interval is normal. No Q waves. No ST changes noted. Interpreted by me. Administered Medications: 13:00 Drug: Albuterol Inhalation 2.5 mg Inhalation once Route: Inhalation; db 15:00 Follow up: Response: No adverse reaction db 13:00 Drug: Ipratropium Inhalation Aerosol 0.5 mg Inhalation once Route: Inhalation; db 15:00 Follow up: Response: No adverse reaction db 13:00 Drug: Pantoprazole IVP 80 mg IVP once Route: IVP; Site: right antecubital; db 15:00 Follow up: Response: No adverse reaction db Disposition Summary: 06/15/24 14:47 Hospitalization Ordered Notes: Hospitalization Status: Inpatient Admission rt Provider: Bandar Dewitt rt [facility] ([facility] rt Condition: Stable rt Problem: new rt Symptoms: have improved rt Bed/Room Type: Standard rt Room Assignment: 213(06/15/24 15:26) bd Diagnosis - Melena rt - Acute bronchospasm rt Forms: - Medication Reconciliation Form rt - SBAR form rt - Leadership Thank You Letter rt Signatures: Dispatcher [employer] EDIN Priyanka Juarez Danielle, RN RN db Clifford Gongora MD MD rt Corrections: (The following items were deleted from the chart) 11:28 11:28 Chest Abdomen Pelvis W Con+CT.RAD.BRZ ordered. [facility] EDIN 15:26 14:47 rt bd
[2024-06-15] MEDS ORDERED: ONDANSETRON 4 MG/2 ML VIAL IV PRN (15:22)
[2024-06-15] MEDS ORDERED: SODIUM CHLORIDE 0.9% 10ML INJ IV PRN (15:22)
[2024-06-15] MEDS: NA CHLORIDE 0.9% 500 ML ONE (15:28)
[2024-06-15] MEDS ORDERED: GLUCAGON 1 MG/VIAL IM PRN (15:35)
[2024-06-15] MEDS ORDERED: D10W 125 ML IV PRN (15:35)
[2024-06-15] MEDS ORDERED: LIDOCAINE 1% MPF 5 ML VIAL ONE (15:37)
[2024-06-15] MEDS ORDERED: propofoL 200 MG/20 ML VIAL IV ONE ×2 (15:37)
[2024-06-15] MEDS: NA CHLORIDE 0.9% 1,000 ML IV SCH (16:00)
--- NOTE | 2024-06-15 16:34 | P.HP ---
Certification for Inpatient Patient admitted to: Inpatient With expected LOS: >2 Midnights Patient will require the following post-hospital care: None Practitioner: I am a practitioner with admitting privileges, knowledge of patient current condition, hospital course, and medical plan of care. Services: Services provided to patient in accordance with Admission requirements found in Title 42 Section 412.3 of the Code of Federal Regulations Patient History Date of Service: 06/15/24 Reason for admission: UGIB History of Present Illness: 79-year-old female with history of chronic diastolic CHF, hyperlipidemia, atrial fibrillation with watchman device in place, GERD with previous GI bleeds, COPD, diabetes mellitus type 2 was recently hospitalized at [facility] in [place] for pneumonia, discharged about 1 week ago after staying there for 2 weeks presents here to the emergency department today for melena. She is at a senior care facility for postacute care and developed melena this morning. She is currently on aspirin and Plavix and has the Watchman device in place. She was evaluated in the ER, initial hemoglobin is 13.4 BUN is 12 [address] chest abdomen pelvis was obtained showed no acute abnormalities in the chest abdomen or pelvis, incidentally noted exophytic right renal cortical 3.3 cm solid mass concerning for malignancy. Indeterminate right retroperitoneal lymph node at the level of the renal vein measuring 7 mm in short axis. ED physician spoke with GI who plans for urgent EGD to evaluate for possible upper GI bleed. Patient and family aware of previously noted renal mass and are deciding if they would like to have further evaluation for this outpatient. Allergies No Known Allergies Allergy (Verified 10/26/23 18:45) Home Medications: ARIPiprazole [Aripiprazole] 2.5 mg PO BEDTIME 10/26/23 Atorvastatin Calcium [Lipitor] 80 mg PO BEDTIME 10/26/23 Biotin 2,000 mcg PO DAILY 10/26/23 Clopidogrel Bisulfate [Plavix*] 75 mg PO DAILY 10/26/23 Diazepam [Valium] 5 mg PO BEDTIME 10/26/23 Diphenox/Atropine [Lomotil*] 1 tab PO Q6H PRN 10/26/23 Duloxetine HCl 30 mg PO BID 10/26/23 Ezetimibe 10 mg PO DAILY 10/26/23 Fenofibrate,Micronized [Fenofibrate] 67 mg PO DAILY 10/26/23 Ferrous Sulfate [Ferrous Sulfate*] 325 mg PO DAILY 10/26/23 Furosemide [Lasix*] 40 mg PO BIDL 10/26/23 Gabapentin 800 mg PO TID 10/26/23 Losartan Potassium [Cozaar*] 50 mg PO DAILY 10/26/23 Metformin HCl 1,000 mg PO BIDWM 10/26/23 NIFEdipine [Nifedipine ER] 30 mg PO DAILY 10/26/23 Pantoprazole [Protonix Tab*] 40 mg PO DAILY 10/26/23 Potassium Oral Tab [Klor-Con 10 mEq Tab*] 20 meq PO DAILY 10/26/23 Ropinirole HCl 0.5 mg PO BID 10/26/23 Spironolactone [Aldactone*] 12.5 mg PO DAILY 10/26/23 Tolterodine Tartrate [Detrol LA*] 4 mg PO DAILY 10/26/23 Tramadol HCl [Ultram] 50 mg PO Q4H PRN 10/26/23 carvediloL [Carvedilol] 6.25 mg PO BID 10/26/23 clonazePAM [Klonopin*] 1 mg PO BEDTIME 10/26/23 Insulin Glargine,Hum.rec.anlog [Semglee] 30 unit SQ BID 30 Days ml 11/04/23 Aspirin [Aspirin EC] 81 mg PO DAILY #30 11/05/23 - Past Medical/Surgical History Diabetic: Yes -: DM2 -: GERD -: HTN -: Hyperlipidemia -: CHF -: AFIB-watchman -: Back sx -: appendectomy -: cholecystectomy -: hysterectomy -: tonsillectomy Psychosocial/ Personal History: Currently at [facility] - Social History Alcohol use: No CD- Drugs: No Caffeine use: No Place of Residence: Home Review of Systems 10-point ROS is otherwise unremarkable Gastrointestinal: Melena Physical Examination - Vital Signs Temperature: 98.2 F Blood Pressure: 115/58 Pulse: 74 Respirations: 18 - Physical Exam General: Alert, In no apparent distress, Oriented x3 HEENT: Atraumatic, PERRLA, EOMI Neck: Supple, 2+ carotid pulse no bruit, No LAD Respiratory: Clear to auscultation bilaterally, Normal air movement Cardiovascular: Regular rate/rhythm, Normal S1 S2 Gastrointestinal: Normal bowel sounds, No tenderness Musculoskeletal: No tenderness Integumentary: No rashes Neurological: Normal speech, Normal strength at 5/5 x4 extr, Normal tone - Studies Laboratory Data (last 24 hrs) 06/15/24 06/15/24 06/15/24 11:34 11:34 11:34 WBC 3.70 L Hgb 13.4 Hct 38.7 Plt Count 144 L PT 12.8 H INR 1.22 APTT 32.4 Sodium 131 L Potassium 4.2 BUN 12 Creatinine 0.64 Glucose 167 H Total Bilirubin 1.2 H AST 44 H ALT 42 Alkaline Phosphatase 66 Assessment and Plan - Plan Assessment: Melena, suspected upper GI bleed Atrial fibrillation with Watchman device in place on aspirin/Plavix Diabetes mellitus type 2insulin-dependent Chronic CHFunknown EF Recent hospitalization for pneumonia, now on home O2 COPDnow on home O2 Plan: Melena, suspected upper GI bleed EGD today-await results SCDs hold asa/plavix BID PPI Atrial fibrillation with Watchman device in place on aspirin/Plavix Hold aspirin, Plavix Continue other home medications when verified Diabetes mellitus type 2insulin-dependent ACHS Accu-Chek, sliding scale insulin Chronic CHFunknown EF Recent hospitalization for pneumonia, now on home O2 COPDnow on home O2 Continue home medications, supplemental oxygen Continue PT eval during hospitalization Will likely return to SNF at discharge DVT PPX: SCD Code status: Full Discharge Plan: Chcf Plan to discharge in: 48 Hours - Advance Directives Does patient have a Living Will: No Does patient have a Durable POA for Healthcare: No - Code Status/Comfort Care Code Status Assessed: Yes (Full code) Critical Care: No Time Spent Managing Pts Care (In Minutes): 68
[2024-06-15 17:37] VITALS: BMI 33.1
[2024-06-15] MEDS: PNEUMOCOCCAL VACCINE 0.5 ML IMVAC ONE (17:49)
[2024-06-15] MEDS: FLU (Fluarix Triv) TS24-25(6MOS UP)/PF 45 MCG/0.5 ML Syringe IM ONE (17:49)
[2024-06-15] MEDS: INSULIN REGULAR (HUMAN) 100 UNIT/ML SQ SCH (17:50)
--- NOTE | 2024-06-15 20:38 | CON ---
Reason For Consultation: Upper GI bleed, melena. History Of Presenting Illness: The patient is a 79-year-old woman with past medical history of conge stive heart failure, COPD, diabetes, gastroesophageal reflux disease, hypertension, overactive bladde r, dyslipidemia, atrial fibrillation, dysphagia, cognitive communication deficit and chronic muscle w eakness, bipolar disorder, who was recently at [facility] for pneumonia, now comes with cough and black tarry stools, was admitted to the hospital and GI consultation was requested. Past Medical History: As above. Past Surgical History: None pertinent to the current issue. Family History: Noncontributory. Social History: Denies toxic habits. Review of Systems: GI: As in HPI, otherwise, negative. Respiratory: As in HPI, otherwise negative. Remainder of 10-point review of systems is negative. Physical Examination: Vital Signs: Reviewed. Blood pressure 121/67, pulse 89, respiratory rate 18, temperature 98. HEENT: Head atraumatic, normocephalic. Pupils equally reactive. Neck: Supple. Chest: Clear to auscultation bilaterally. Abdomen: Soft, nontender, nondistended. Bowel sounds present. Extremities: No pedal edema. Laboratory Data: Reviewed. Her hemoglobin actually is normal at 13.4, but could be related to dehyd ration. We will continue to monitor that. Imaging reviewed. There is a concern for renal mass in t he right kidney, which has not been worked up before. Impression: A 79-year-old woman with recent hospitalization for chronic comorbidities with black sto ols. We will need to rule out source of upper GI bleed. Plan: Continue current management. PPI. We will schedule the patient for an upper endoscopy. Risk s and complication of the procedure, which include, but are not limited to bleeding, infection, perfo ration, anesthesia complications were discussed. She understands and agrees. US/MODL Voice ID: [id number] Report ID: [id number]
[2024-06-15] MEDS: PANTOPRAZOLE 40 MG INJ IVP SCH (20:57)
[2024-06-16 05:05] LABS: Absolute Eosinophils 0.2 K/uL (0-0.5); Absolute Lymphocytes (CBC) 1.6 K/uL (0.7-4.9); Absolute Monocytes 0.4 K/uL (0.1-1.3); Absolute Neutrophil 1.9 K/uL (1.8-8.0); Basophils % 0.3 % (0-1.3); Eosinophils % 4.1 % (0-4.4); Hematocrit 34.4 % (36.0-45.0); Hemoglobin 11.9 g/dL (12.0-15.0); Lymphocytes % 39.3 % (15.3-44.8); MCH 31.9 pg (27.0-35.0); MCHC 34.5 g/dL (32.0-36.0); MCV 92.4 fL (80-100); MPV 7.5 fL (7.6-11.3); Neutrophils % 46.3 % (41.7-73.7); Nucleated Red Blood Cells % 0.2 % (0-0); Platelets 139 thou/uL (152-406); RBC Red Blood Cell Count 3.72 M/uL (3.86-4.86); Red Cell Distribution Width 15.4 % (12.1-15.2)
[2024-06-16] MEDS: METFORMIN HCL 500 MG TAB PO SCH (18:08)
[2024-06-16] MEDS: GABAPENTIN 400 MG CAP PO SCH (20:30)
[2024-06-16] MEDS: DULOXETINE 30 MG CAP PO SCH (20:31)
[2024-06-16] MEDS: ATORVASTATIN 80 MG TAB PO SCH (20:31)
[2024-06-16] MEDS: carvediloL 6.25 MG TAB PO SCH (20:31)
[2024-06-17 05:07] LABS: Absolute Eosinophils 0.1 K/uL (0-0.5); Absolute Lymphocytes (CBC) 1.6 K/uL (0.7-4.9); Absolute Monocytes 0.5 K/uL (0.1-1.3); Basophils % 0.3 % (0-1.3); Eosinophils % 2.5 % (0-4.4); Hematocrit 33.9 % (36.0-45.0); Lymphocytes % 30.4 % (15.3-44.8); MCH 31.9 pg (27.0-35.0); MCHC 35.3 g/dL (32.0-36.0); MCV 90.2 fL (80-100); MPV 7.8 fL (7.6-11.3); Monocytes % 9.8 % (3.3-12.3); Nucleated Red Blood Cells % 0.1 % (0-0); Platelets 130 thou/uL (152-406); RBC Red Blood Cell Count 3.75 M/uL (3.86-4.86); Red Cell Distribution Width 15.6 % (12.1-15.2)
[2024-06-17] MEDS: SPIRONOLACTONE 25 MG TABLET PO SCH (08:20)
[2024-06-17] MEDS: EZETIMIBE 10 MG TAB PO SCH (08:21)
[2024-06-17] MEDS: LOSARTAN POTASSIUM 50 MG TABLET PO SCH (08:21)
[2024-06-17] MEDS: FUROSEMIDE 20 MG TABLET PO SCH (08:21)
[2024-06-17] MEDS ORDERED: FERROUS SULFATE 325 MG TAB PO SCH (09:00)
--- NOTE | 2024-06-17 14:18 | P.PN ---
Date of Service: 06/17/24 Subjective: Doing well this morning No complaints overnight No further melena or vomiting Denies abdominal pain ROS: 10 point ROS as noted above, otherwise negative Physical exam GEN: Alert, oriented, NAD HEENT: Normal conjunctiva, sclera anicteric CV: Regular rate and rhythm, no edema Pulm: Nonlabored respirations on room air ABD: Soft, nontender, nondistended MSK: No joint tenderness Integumentary: No rashes Neuro: Normal speech, normal affect Vitals reviewed Assessment: Melena, suspected upper GI bleed Atrial fibrillation with Watchman device in place on aspirin/Plavix Diabetes mellitus type 2insulin-dependent Chronic CHFunknown EF Recent hospitalization for pneumonia, now on home O2 COPDnow on home O2 Plan: Melena, suspected upper GI bleed EGD showed esophageal and gastric ulcers without bleeding Advance diet as tolerated SCDs hold asa/plavix BID PPI Atrial fibrillation with Watchman device in place on aspirin/Plavix Hold aspirin, Plavix Continue other home medications when verified Diabetes mellitus type 2insulin-dependent ACHS Accu-Chek, sliding scale insulin Chronic CHFunknown EF Recent hospitalization for pneumonia, now on home O2 COPDnow on home O2 Continue home medications, supplemental oxygen Continue PT eval during hospitalization Will likely return to SNF at discharge DVT PPX: SCD Code status: Full Discharge Plan: Detention Plan to discharge in: 48 Hours Time Spent Managing Pts Care (In Minutes): 35
[2024-06-18 04:45] LABS: Absolute Eosinophils 0.3 K/uL (0-0.5); Absolute Lymphocytes (CBC) 1.9 K/uL (0.7-4.9); Absolute Monocytes 0.9 K/uL (0.1-1.3); Absolute Neutrophil 4.1 K/uL (1.8-8.0); Basophils % 0.5 % (0-1.3); Eosinophils % 3.6 % (0-4.4); Hematocrit 30.6 % (36.0-45.0); Hemoglobin 10.8 g/dL (12.0-15.0); Lymphocytes % 26.5 % (15.3-44.8); MCH 31.9 pg (27.0-35.0); MCHC 35.1 g/dL (32.0-36.0); MCV 90.8 fL (80-100); MPV 8.2 fL (7.6-11.3); Monocytes % 12.4 % (3.3-12.3); Platelets 135 thou/uL (152-406); RBC Red Blood Cell Count 3.38 M/uL (3.86-4.86); Red Cell Distribution Width 15.3 % (12.1-15.2)
[2024-06-18 05:06] LABS: Anion Gap 9.1 mEq/L (5.0-15.0); Potassium 4.1 mEq/L (3.5-5.1)
[2024-06-18] MEDS: ASPIRIN EC 81 MG TAB PO SCH (09:06)
--- NOTE | 2024-06-18 14:59 | P.PN ---
Date of Service: 06/18/24 Subjective: Doing well this morning No complaints overnight No further melena or vomiting Denies abdominal pain ROS: 10 point ROS as noted above, otherwise negative Physical exam GEN: Alert, oriented, NAD HEENT: Normal conjunctiva, sclera anicteric CV: Regular rate and rhythm, no edema Pulm: Nonlabored respirations on room air ABD: Soft, nontender, nondistended MSK: No joint tenderness Integumentary: No rashes Neuro: Normal speech, normal affect Vitals reviewed Assessment: Melena, suspected upper GI bleed Atrial fibrillation with Watchman device in place on aspirin/Plavix Diabetes mellitus type 2insulin-dependent Chronic CHFunknown EF Recent hospitalization for pneumonia, now on home O2 COPDnow on home O2 Plan: Melena, suspected upper GI bleed EGD showed esophageal and gastric ulcers without bleeding Advance diet as tolerated SCDs Started back on ASA BID PPI Awaiting SNF re auth Atrial fibrillation with Watchman device in place on aspirin/Plavix Hold aspirin, Plavix Continue other home medications when verified Diabetes mellitus type 2insulin-dependent ACHS Accu-Chek, sliding scale insulin Chronic CHFunknown EF Recent hospitalization for pneumonia, now on home O2 COPDnow on home O2 Continue home medications, supplemental oxygen Continue PT eval during hospitalization Will likely return to SNF at discharge DVT PPX: SCD Code status: Full Discharge Plan: Detention Plan to discharge in: 48 Hours Time Spent Managing Pts Care (In Minutes): 35
[2024-06-19 05:17] LABS: Absolute Eosinophils 0.2 K/uL (0-0.5); Absolute Lymphocytes (CBC) 1.9 K/uL (0.7-4.9); Absolute Monocytes 0.7 K/uL (0.1-1.3); Absolute Neutrophil 4.3 K/uL (1.8-8.0); Basophils % 0.4 % (0-1.3); Eosinophils % 2.7 % (0-4.4); Hematocrit 31.8 % (36.0-45.0); Hemoglobin 11.1 g/dL (12.0-15.0); Lymphocytes % 26.6 % (15.3-44.8); MCH 31.5 pg (27.0-35.0); MPV 8.3 fL (7.6-11.3); Monocytes % 10.2 % (3.3-12.3); Neutrophils % 60.1 % (41.7-73.7); Platelets 170 thou/uL (152-406); RBC Red Blood Cell Count 3.53 M/uL (3.86-4.86); Red Cell Distribution Width 15.2 % (12.1-15.2)
[2024-06-19 05:59] LABS: Anion Gap 8.9 mEq/L (5.0-15.0); Potassium 3.9 mEq/L (3.5-5.1)
[2024-06-19] MEDS: POTASSIUM CL SA 10 MEQ TAB PO ONE (08:37)
[2024-06-19] MEDS: CLOPIDOGREL 75 MG TABLET PO SCH (08:39)
--- NOTE | 2024-06-19 15:20 | P.PN ---
Date of Service: 06/19/24 Subjective: Doing well this morning No complaints overnight No further melena or vomiting Denies abdominal pain Had soft brown BM 06/18 ROS: 10 point ROS as noted above, otherwise negative Physical exam GEN: Alert, oriented, NAD HEENT: Normal conjunctiva, sclera anicteric CV: Regular rate and rhythm, no edema Pulm: Nonlabored respirations on room air ABD: Soft, nontender, nondistended MSK: No joint tenderness Integumentary: No rashes Neuro: Normal speech, normal affect Vitals reviewed Assessment: Melena, suspected upper GI bleed Atrial fibrillation with Watchman device in place on aspirin/Plavix Diabetes mellitus type 2insulin-dependent Chronic CHFunknown EF Recent hospitalization for pneumonia, now on home O2 COPDnow on home O2 Plan: Melena, suspected upper GI bleed EGD showed esophageal and gastric ulcers without bleeding Tolerrating diet SCDs Started back on ASA BID PPI Awaiting SNF re auth Atrial fibrillation with Watchman device in place on aspirin/Plavix Resume asa/plavix Continue other home medications when verified Diabetes mellitus type 2insulin-dependent ACHS Accu-Chek, sliding scale insulin Chronic CHFunknown EF Recent hospitalization for pneumonia, now on home O2 COPDnow on home O2 Continue home medications, supplemental oxygen Continue PT eval during hospitalization Will likely return to SNF at discharge DVT PPX: SCD Code status: Full Discharge Plan: Longterm Plan to discharge in: 48 Hours Time Spent Managing Pts Care (In Minutes): 35
[2024-06-20] MEDS: ACETAMINOPHEN 325 MG TABLET PO PRN (04:14)
[2024-06-20 05:55] LABS: Absolute Eosinophils 0.1 K/uL (0-0.5); Absolute Lymphocytes (CBC) 1.4 K/uL (0.7-4.9); Absolute Neutrophil 5.1 K/uL (1.8-8.0); Basophils % 0.3 % (0-1.3); Eosinophils % 1.9 % (0-4.4); Hematocrit 32.2 % (36.0-45.0); Hemoglobin 11.4 g/dL (12.0-15.0); Lymphocytes % 18.3 % (15.3-44.8); MCH 31.8 pg (27.0-35.0); MCHC 35.3 g/dL (32.0-36.0); MCV 90.1 fL (80-100); MPV 7.9 fL (7.6-11.3); Monocytes % 12.5 % (3.3-12.3); Platelets 234 thou/uL (152-406); RBC Red Blood Cell Count 3.57 M/uL (3.86-4.86); Red Cell Distribution Width 15.5 % (12.1-15.2)
[2024-06-20 06:10] LABS: Anion Gap 7.1 mEq/L (5.0-15.0); Potassium 4.1 mEq/L (3.5-5.1)
--- NOTE | 2024-06-20 12:19 | P.PN ---
Date of Service: 06/20/24 Subjective: Doing well this morning No complaints overnight No further melena or vomiting Denies abdominal pain Had soft brown BM 06/18 Awaiting P2P for insurance to go back to SNF ROS: 10 point ROS as noted above, otherwise negative Physical exam GEN: Alert, oriented, NAD HEENT: Normal conjunctiva, sclera anicteric CV: Regular rate and rhythm, no edema Pulm: Nonlabored respirations on room air ABD: Soft, nontender, nondistended MSK: No joint tenderness Integumentary: No rashes Neuro: Normal speech, normal affect Vitals reviewed Assessment: Melena, suspected upper GI bleed Atrial fibrillation with Watchman device in place on aspirin/Plavix Diabetes mellitus type 2insulin-dependent Chronic CHFunknown EF Recent hospitalization for pneumonia, now on home O2 COPDnow on home O2 Plan: Melena, suspected upper GI bleed EGD showed esophageal and gastric ulcers without bleeding Tolerrating diet SCDs Started back on ASA BID PPI Awaiting SNF re auth Had a recent hospitalization at [facility] for 2 weeks for pneumonia. Went to SNF after that. Was not on home O2 prior to that hospitalization. Prior to hospitalization at [facility] patient was ambulatory with a walker and otherwise fairly independent in her home living with her . She is now barely able to do transfers on her own, still requiring nasal cannula oxygen. Has had 2 hospitalizations in the last 30 days. She is very appropriate for SNF, insurance offered peer to peer, this has been initiated we are waiting on them to call back. Atrial fibrillation with Watchman device in place on aspirin/Plavix Resume asa/plavix Continue other home medications when verified No further signs of bleeding thus far Diabetes mellitus type 2insulin-dependent ACHS Accu-Chek, sliding scale insulin Chronic CHFunknown EF Recent hospitalization for pneumonia, now on home O2 COPDnow on home O2 Continue home medications, supplemental oxygen Continue PT eval during hospitalization Will likely return to SNF at discharge DVT PPX: SCD Code status: Full Discharge Plan: Long-Term Plan to discharge in: 48 Hours Time Spent Managing Pts Care (In Minutes): 35
[2024-06-20] MEDS: GUAIFENESIN 600 MG SA TAB PO ONE (14:10)
[2024-06-20] MEDS: GUAIFENESIN 600 MG SA TAB PO SCH (20:09)
--- NOTE | 2024-06-21 12:41 | EKG ---
Test Date: 2024-06-15 Test Time: 11:41:37 Weight Loss Sales Consultant: LEONA MEASUREMENT RESULTS: Intervals: Rate: 89 FL: 150 QRSD: 108 QT: 376 QTc: 457 [place]: P: 60 FL: 150 QRS: -41 T: 85 INTERPRETIVE STATEMENTS: Normal sinus rhythm Left axis deviation Anteroseptal infarct, age undetermined Abnormal ECG No previous ECG available for comparison Electronically Signed On 06-21-24 12:24:11 APPLIER by Kenneth Bishop
--- NOTE | 2024-06-21 16:33 | P.PN ---
Date of Service: 06/21/24 Subjective: Awake, not interested in eating breakfast No new complaints Awaiting placement. ROS: 10 point ROS as noted above, otherwise negative Physical exam GEN: Awake, Alert, oriented, NAD HEENT: Normal conjunctiva, sclera anicteric CV: Mild tachycardia, S1 S2 present, no edema Pulm: Nonlabored respirations on room air ABD: Soft and benign on palpation, nontender MSK: No joint tenderness Integumentary: No rashes Neuro: Normal speech, normal affect Vitals reviewed Assessment: Melena, suspected upper GI bleed Atrial fibrillation with Watchman device in place on aspirin/Plavix Diabetes mellitus type 2insulin-dependent Chronic CHFunknown EF Recent hospitalization for pneumonia, now on home O2 COPDnow on home O2 Plan: Melena, suspected upper GI bleed EGD showed esophageal and gastric ulcers without bleeding Tolerrating diet SCDs protonix BID BID PPI Awaiting SNF re auth- Peer to peer approved Had a recent hospitalization at [facility] for 2 weeks for pneumonia. Went to SNF after that. Was not on home O2 prior to that hospitalization. Prior to hospitalization at [facility] patient was ambulatory with a walker and otherwise fairly independent in her home living with her . She is now barely able to do transfers on her own, still requiring nasal cannula oxygen. Has had 2 hospitalizations in the last 30 days. She is very appropriate for SNF, insurance offered peer to peer, this has been initiated we are waiting on them to call back. Atrial fibrillation with Watchman device in place on aspirin/Plavix Continue asa/plavix Continue other home medications when verified No further signs of bleeding thus far Diabetes mellitus type 2insulin-dependent ACHS Accu-Chek, sliding scale insulin Chronic CHFunknown EF Recent hospitalization for pneumonia, now on home O2 COPDnow on home O2 Continue home medications, supplemental oxygen Continue PT eval during hospitalization Will likely return to SNF at discharge DVT PPX: SCD Code status: Full Discharge Plan: Fpc Plan to discharge in: 48 Hours
[2024-06-21] MEDS: guaiFENesin 100 MG/5 ML UCUP PO PRN (17:38)
[2024-06-21 22:37] VITALS: O2SAT 94
[2024-06-22 05:58] LABS: Absolute Eosinophils 0.1 K/uL (0-0.5); Absolute Lymphocytes (CBC) 1.3 K/uL (0.7-4.9); Absolute Monocytes 1.7 K/uL (0.1-1.3); Absolute Neutrophil 7.3 K/uL (1.8-8.0); Basophils % 0.3 % (0-1.3); Eosinophils % 1.3 % (0-4.4); Hematocrit 32.9 % (36.0-45.0); Hemoglobin 11.5 g/dL (12.0-15.0); Lymphocytes % 12.1 % (15.3-44.8); MCH 30.9 pg (27.0-35.0); MCHC 34.8 g/dL (32.0-36.0); MCV 88.9 fL (80-100); MPV 8.1 fL (7.6-11.3); Monocytes % 16.1 % (3.3-12.3); Neutrophils % 70.2 % (41.7-73.7); Platelets 302 thou/uL (152-406); Red Cell Distribution Width 15.2 % (12.1-15.2)
[2024-06-22 06:53] LABS: Phosphorus 3.5 mg/dL (2.5-4.9)
[2024-06-22] MEDS: Magnesium Sulfate 2gm IVPB 2 G/50 ML BAG IV ONE (08:41)
[2024-06-22 10:15] LABS: Band Neutrophils 5 % (0-1); Blood Morphology Comment NOT SEEN (NOT SEEN); Differential Total Cells Count 100; Lymphocytes 13 % (15-42); Monocytes 14 % (0-10); Platelet Estimate ADEQ; Segmented Neutrophils 68 % (40-80)
[2024-06-22 10:16] LABS: Toxic Granulation 1+
--- NOTE | 2024-06-22 12:01 | P.DS ---
Admission Date: 06/15/24 Discharge Date: 06/22/24 Disposition: TRANSFER TO CUSTODIAL Discharge Condition: GOOD Reason for Admission: UGIB Brief History of Present Illness: Diagnosis Melena, suspected upper GI bleed Atrial fibrillation with Watchman device in place on aspirin/Plavix Diabetes mellitus type 2insulin-dependent Chronic CHFunknown EF Recent hospitalization for pneumonia, now on home O2 COPDnow on home O2 HPI 06/15/2024 Werner Yo is a 79-year-old female with history of chronic diastolic CHF, hyperlipidemia, atrial fibrillation with watchman device in place, GERD with previous GI bleeds, COPD, diabetes mellitus type 2 was recently hospitalized at [facility] in [place] for pneumonia, discharged about 1 week ago after staying there for 2 weeks presents here to the emergency department today for melena. She is at a alf facility for postacute care and developed melena this morning. She is currently on aspirin and Plavix and has the Watchman device in place. She was evaluated in the ER, initial hemoglobin is 13.4 BUN is 12 [address] chest abdomen pelvis was obtained showed no acute abnormalities in the chest abdomen or pelvis, incidentally noted exophytic right renal cortical 3.3 cm solid mass concerning for malignancy. Indeterminate right retroperitoneal lymph node at the level of the renal vein measuring 7 mm in short axis. ED physician spoke with GI who plans for urgent EGD to evaluate for possible upper GI bleed. Patient and family aware of previously noted renal mass and are deciding if they would like to have further evaluation for this outpatient. Hospital Course: The following diagnoses treated: Melena, suspected upper GI bleed Dr. Barragan consulted, EGD showed esophageal and gastric ulcers without bleeding Tolerrating diet advancement SCDs protonix BID- improved Atrial fibrillation with Watchman device in place on aspirin/Plavix Continue asa/plavix at discharge No further signs of bleeding thus far Diabetes mellitus type 2insulin-dependent ACHS Accu-Chek, sliding scale insulin Chronic CHFunknown EF Recent hospitalization for pneumonia, now on home O2 COPDnow on home O2 Continue home oxygen PRN On 06/22/24, Werner was seen on morning rounds. Hospitalist and Dr. Barragan deemed her medically stable for discharge to [facility]. Werner was discharged with instructions to schedule follow-up appointments with PCP and Dr. Barragan. Jewel was provided prescriptions for Augmentin, Mag-Ox, Robitussin. Physical exam GEN: AAO x2, NAD HEENT: Normal conjunctiva, sclera anicteric CV: RRR, S1 S2 present, no edema Pulm: Nonlabored respirations, on room air ABD: Soft and NT on palpation MSK: No joint tenderness Integumentary: No rashes Neuro: Normal speech, normal affect Vital Signs/Physical Exam: Temp Pulse Resp BP Pulse Ox 97.6 F 73 19 130/63 94 06/22/24 08:00 06/22/24 08:00 06/22/24 08:00 06/22/24 08:00 06/22/24 08:00 Laboratory Data at Discharge: WBC 10.40 thou/uL (4.3-10.9) 06/22/24 05:28 Hgb 11.5 g/dL (12.0-15.0) L 06/22/24 05:28 Hct 32.9 % (36.0-45.0) L 06/22/24 05:28 Plt Count 302 thou/uL (152-406) 06/22/24 05:28 PT 12.8 SECONDS (9.4-12.5) H 06/15/24 11:34 INR 1.22 06/15/24 11:34 APTT 32.4 SECONDS (24.3-36.9) 06/15/24 11:34 Sodium 130 mEq/L (136-145) L 06/22/24 05:28 Potassium 4.0 mEq/L (3.5-5.1) 06/22/24 05:28 BUN 13 mg/dL (7-18) 06/22/24 05:28 Creatinine 0.67 mg/dL (0.55-1.02) 06/22/24 05:28 Glucose 171 mg/dL (74-106) H 06/22/24 05:28 Phosphorus 3.5 mg/dL (2.5-4.9) 06/22/24 05:28 Magnesium 1.0 mg/dL (1.6-2.4) L* 06/22/24 05:28 Total Bilirubin 1.2 mg/dL (0.2-1.0) H 06/15/24 11:34 AST 44 U/L (15-37) H 06/15/24 11:34 ALT 42 U/L (13-56) 06/15/24 11:34 Alkaline Phosphatase 66 U/L (45-117) 06/15/24 11:34 Home Medications: ARIPiprazole [Aripiprazole] 2.5 mg PO BEDTIME 10/26/23 Atorvastatin Calcium [Lipitor] 80 mg PO BEDTIME 10/26/23 Biotin 2,000 mcg PO DAILY 10/26/23 Clopidogrel Bisulfate [Plavix*] 75 mg PO DAILY 10/26/23 Duloxetine HCl 30 mg PO BID 10/26/23 Ezetimibe 10 mg PO DAILY 10/26/23 Fenofibrate,Micronized [Fenofibrate] 67 mg PO DAILY 10/26/23 Ferrous Sulfate [Ferrous Sulfate*] 325 mg PO DAILY 10/26/23 Furosemide [Lasix*] 20 mg PO DAILY 10/26/23 Gabapentin 800 mg PO BID 10/26/23 Losartan Potassium [Cozaar*] 50 mg PO DAILY 10/26/23 Metformin HCl 1,000 mg PO BIDWM 10/26/23 Pantoprazole [Protonix Tab*] 40 mg PO DAILY 10/26/23 Spironolactone [Aldactone*] 12.5 mg PO DAILY 10/26/23 carvediloL [Carvedilol] 6.25 mg PO BID 10/26/23 Insulin Glargine,Hum.rec.anlog [Semglee] 30 unit SQ BID 30 Days ml 11/04/23 Aspirin [Aspirin EC] 81 mg PO DAILY #30 11/05/23 Magnesium Oxide [Mag 0X Tab] 400 mg PO BID 5 Days #10 tab 06/22/24 guaiFENesin [Robitussin 100MG/5ML] 5 ml PO QID 20 Days #1 bottle 06/22/24 Amox/Clavulanate [Augmentin 875-125 Tab] 875 mg PO BID 10 Days #20 tab 06/23/24 New Medications: Amox/Clavulanate [Augmentin 875-125 Tab] 875 mg PO BID 10 Days #20 tab Magnesium Oxide [Mag 0X Tab] 400 mg PO BID 5 Days #10 tab guaiFENesin [Robitussin 100MG/5ML] 5 ml PO QID 20 Days #1 bottle Physician Discharge Instructions: 1. Please call and schedule a follow-up appointment with your PCP in 3-5 days - Please follow-up with your PCP for medication refills/adjustments 2. Please call and schedule a follow-up appointment with Dr. Chou in 1 week -Will need upper GI outpatient, please call and schedule an appointment 3. Continue soft bite-size regular diet 4. activity restrictions fall precautions 5. Return to the ED if symptoms worsen New medications Robitussin 100 mg 4 times daily Activity: Fall precautions Followup: Mushtaq Enriquez MD [ACTIVE - CAN ADMIT] - 1 Week Ld Mccoy MD [Primary Care Provider] - 1-2 Weeks Bruce Barragan MD [ACTIVE - CAN ADMIT] -
--- NOTE | 2024-06-22 12:39 | RAD REPORT ---
EXAMINATION: ONE VIEW CHEST XR CLINICAL INDICATION: SOB TECHNIQUE: Frontal chest projection is submitted. Examination is limited by patient positioning and t echnique. COMPARISON: No prior exam. FINDINGS: Patchy airspace opacity is present in the right lung base and a small similar opacity in the medial l eft lung base. This probably represents pneumonia, potentially aspiration related. The heart is upper limit of normal in size. No displaced fractures identified. Mild aortic atherosclerosis.
[2024-06-22 16:57] VITALS: BP 120/65; TEMP 97.6
== END 2024-06-22 17:18 | DRG 381 ==
LOC: ER 11:12 → ERHOLD 15:05 → 2ND 15:26
PROVIDERS: ADMIT Hospitalist; ATTEND Internal Medicine
PROC: 0DB78ZX Excision of Stomach, Pylorus, Via Natural or Artificial Opening Endoscopic, Diagnostic (ICD-10-PCS; 2024-06-15)
PROC: 0DB68ZX Excision of Stomach, Via Natural or Artificial Opening Endoscopic, Diagnostic (ICD-10-PCS; 2024-06-15)
PROC: 0DB58ZX Excision of Esophagus, Via Natural or Artificial Opening Endoscopic, Diagnostic (ICD-10-PCS; principal; 2024-06-15 15:00)
DX: K22.11 Ulcer of esophagus with bleeding (principal); E87.1 Hypo-osmolality and hyponatremia; I50.32 Chronic diastolic (congestive) heart failure; K25.4 Chronic or unspecified gastric ulcer with hemorrhage; I11.0 Hypertensive heart disease with heart failure; E11.9 Type 2 diabetes mellitus without complications; E78.5 Hyperlipidemia, unspecified; I48.0 Paroxysmal atrial fibrillation; F31.9 Bipolar disorder, unspecified; J98.01 Acute bronchospasm; K21.9 Gastro-esophageal reflux disease without esophagitis; J44.9 Chronic obstructive pulmonary disease, unspecified; Z79.02 Long term (current) use of antithrombotics/antiplatelets; Z79.84 Long term (current) use of oral hypoglycemic drugs; Z79.4 Long term (current) use of insulin; Z79.899 Other long term (current) drug therapy; Z79.82 Long term (current) use of aspirin; Z90.49 Acquired absence of other specified parts of digestive tract; Z90.710 Acquired absence of both cervix and uterus; Z99.81 Dependence on supplemental oxygen
CPT/HCPCS: 36415; 71045; 71260; 74177; 80048; 80076; 82947; 83735; 84100; 84484; 85018; 85025; 85610; 85730; 86850; 86900; 86901; 88305; 88312; 93005; 96374; 97110; 97161; 97530; 99285; J2003; J2470; J2704; J3475; J7040; J7613; J7644; Q9967

== ENCOUNTER 2024-06-24 05:33 | Emergency (ER) | payer OTHER ==
--- OUTSIDE RECORDS SUMMARY | 2024-06-24 05:56 | XMS REPORT | Continuity of Care Document ---
Author Name Unknown Address [address] [facility] [address] [place] [address] [facility] Address [address] [facility] [address] [place] [address] Care Team Providers Care Account Support Manager Name Role Phone Darius CANNON, Mary Primary Care Physic arnel [phone] WILVER BAKER Attending Clinician Unavaila ZOIE Neal Attending Clinician UnavailZOIE Vargas Attending Clinician Unavailab Chitra OLSON, Nakul Garcia Attending Clinician Unavail able BERTO ROMAN Attending Clinician Unavailable Jewel Sexton MD Attending Clinician [phone] Berto Roman MD Attending Clinician [phone] Florina Chang MD Attending Clinician [phone] ABELARDO BAUTISTA Attending Clinician UnavailAbelardo Coulter Attending Clinician [phone] Wilver Baker MD Attending Clinician [phone] Wilman Mcdonald PA-C Attending Clinician [phone] AWAIS BETHEA Attending Clinician Unavailable AWAIS BETHEA Attending Clinician Unavailable Neema CANNON, Awais Attending Clinician [phone] Pob, [facility] Main Attending Clinician Unavailabl WILMAN Colin Attending Clinician Unavailable LALIT PEREZ Attending Clinician Unavail able LALIT PEREZ Attending Clinician Unavail able SANCHEZ HOOPER Attending Clinician Unavaila ble Doctor Unassigned, Ucon Attending Clinician U JEWEL Mattson Attending Clinician Unavailable JEWEL SEXTON Attending Clinician Unavailable Darius CANNON, Mary Attending Clinician EZE SANTIAGO Attending Clinician Unavailabl e Ashish FELL CUTTER, Eze Meadows Attending Clinician [phone] Arlene Hoffman RN Attending Clinician Unavailab ANGEL LUIS Gary Attending Clinician Unavailabl Vinh Maddox MD Attending Clinician [phone] Angel Luis Rangel MD Attending Clinician [phone] SURENDRA HARRIS Attending Clinician Unavaila ble Doctor Unassigned, Ucon Attending Clinician U huber Ac MD, Bela Roach Attending Clinician + JOSUE HODGES Attending Clinician Unavailable Josue Hodges DO Attending Clinician [phone] Pob, [facility] Main Attending Clinician UnavailClark Espinoza Attending Clinician Unavailable Clark Oliver Attending Clinician [phone] GIRISH HERNADEZ Attending Clinician Unavailabl e GC_GCBZW_Kadiyala_S Attending Clinician Unavaila jose a Mariscal RN, Rosaura Bush Attending Clinician Unavail able ANA PAULA BERRY Attending Clinician Unavailable ANA PAULA BERRY Attending Clinician Unavailable Brandon Shelton MD Attending Clinician [phone] Carlos Carolina MD Attending Clinician [phone] Isacc Conley MD Attending Clinician [phone] FAHEEM MA Attending Clinician Unavailable Carlie Oconnor MD Attending Clinician [phone] Gurwinder Raymond MD Attending Clinician [phone] Angel Luis Caputo MD Attending Clinician [phone] Kvng Maxwell MD Attending Clinician [phone] Abbe Walters MD Attending Clinician UnavailABBE Hay Attending Clinician Unavailable Lopez CANNON, [facility] Attending Clinician + [phone] Lalit Perez MD Attending Clinician [phone] ALBERTA OSUNA Attending Clinician Unavailable JAMES BIGGS Attending Clinician Unavailable Vince Thomason DO Attending Clinician [phone] James Bgigs MD Attending Clinician [phone] Provider, [facility] Attending Clinician Unavailable Selena Cedeno MD Attending Clinician [phone] SELENA CEDENO Attending Clinician Unavailable IBIS WARNER Attending Clinician Unavailable Cece Vu Attending Clinician [phone] CECE BELCHER Attending Clinician Unavailable FLORINA CHANG Admitting Clinician Unavailable Florina Chang MD Admitting Clinician [phone] ABELARDO BAUTISTA Admitting Clinician UnavailAWAIS Wolf Admitting Clinician Unavailable Awais Bethea MD Admitting Clinician [phone] ANGEL LUIS RANGEL Admitting Clinician Unavailabl Angel Luis Powers MD Admitting Clinician [phone] JOSUE HODGES Admitting Clinician Unavailable Clark JULIAN Admitting Clinician Unavailable [email or web address]_S Admitting Clinician Unavaila CARLOS Dwyer Admitting Clinician Unavailab Kvng Edwards MD Admitting Clinician [phone] KVNG MAXWELL Admitting Clinician Unavailable JAMES BIGGS Admitting Clinician Unavailable James Biggs MD Admitting Clinician [phone] Payers Payer Name Policy Type Policy Number Effective Date Expirati on Date Source Problems Condition Name Condition Details Condition Category Status Onset Date Resolution Date Last Treatment Date Treating Clinician Comments Source Altered mental status, unspecifie d altered mental status type Altered mental status, unspecifie d altered mental status type Disease Active 05-24 00:00: 00 [facility] Presence of Watchman left atrial appendage closure device Presence of Watchman left atrial appendage closure device Disease Active 05-23 00:00: 00 [facility] Ischemic cerebrovas cular accident (CVA) Ischemic cerebrovas cular accident (CVA) Disease Active 10-21 00:00: 00 [facility] Acute hypoxemic respirator y failure Acute hypoxemic respirator y failure Disease Active 02-10 00:00: 00 [facility] Hypotensio n, unspecifie d hypotensio n type Hypotensio n, unspecifie d hypotensio n type Disease Active 02-02 00:00: 00 [facility] Pulmonary edema Pulmonary edema Disease Active 10-26 00:00: 00 [facility] Acute pulmonary edema Acute pulmonary edema Disease Active 10-26 00:00: 00 [facility] Coronary artery disease involving [place] coronary artery of [place] heart with angina pectoris Coronary artery disease involving [place] coronary artery of [place] heart with angina pectoris Disease Active 10-26 00:00: 00 Overview: Formattin g of this note might be different from the original. Added automatic ally from request for surgery [id number] [facility] Acute systolic congestive heart failure Acute systolic congestive heart failure Disease Active 09-02 00:00: 00 [facility] Acute left-sided CHF (congestiv e heart failure) Acute left-sided CHF (congestiv e heart failure) Disease Active 09-02 00:00: 00 [facility] Low oxygen saturation Low oxygen saturation Disease Active 11-10 00:00: 00 [facility] Pneumonia due to infectious organism Pneumonia due to infectious organism Disease Active 11-10 00:00: 00 [facility] Pneumonia due to infectious organism Pneumonia due to infectious organism Disease Active 11-10 00:00: 00 [facility] Essential hypertensi on Essential hypertensi on Disease Active 2016-05 0 00:00: 00 [facility] Acute on chronic diastolic CHF (congestiv e heart failure), NYHA class 3 Acute on chronic diastolic CHF (congestiv e heart failure), NYHA class 3 Disease Active 2016-05 00:00: 00 [facility] Paroxysmal atrial fibrillati on Paroxysmal atrial fibrillati on Disease Active 2016-05 0 00:00: 00 [facility] Type 2 diabetes mellitus with complicati on, with long-term current use of insulin Type 2 diabetes mellitus with complicati on, with long-term current use of insulin Disease Active 2016-05 00:00: 00 [facility] Type 2 diabetes mellitus with complicati on, with long-term current use of insulin Type 2 diabetes mellitus with complicati on, with long-term current use of insulin Disease Active 2016-05 00:00: 00 [facility] Chest pain Chest pain Disease Active 02-14 00:00: 00 [facility] Muscle weakness of lower extremity Muscle weakness of lower extremity Disease Active 08-29 00:00: 00 [facility] Abnormal gait Abnormal gait Disease Active 414 00:00: 00 [facility] Left knee pain Left knee pain Disease Active 2 00:00: 00 [facility] Left knee pain Left knee pain Disease Active 07-11 00:00: 00 [facility] Allergies, Adverse Reactions, Alerts Allergy Name Allergy Type Status Severity Reaction(s) Onset Date Inactive Date Treating Clinician Comments Source NO KNOWN ALLERGIE S Drug Class Active [facility] Social History Social Habit Start Date Stop Date Quantity Comments Source [facility] of tobacco use Cigarette Smoker [facility] History SDOH Alcohol Std Drinks [facility] History SDOH Alcohol Binge [facility] History SDOH Social Connections Get Together [facility] History SDOH Social Connections Mandaen [facility] History SDOH Social Connections Membership [facility] History SDOH Social Connections Meetings [facility] Tobacco use and exposure 2024-05-26 00:00:00 2024-05-26 00:00:00 Smokeless tobacco non-user [facility] Alcoholic beverage intake 2024-05-26 00:00:00 2024-05-26 00:00:00 0 /d [facility] Cigarettes smoked current (pack per day) - Reported 2024-05-26 00:00:00 2024-05-26 00:00:00 [facility] Cigarette pack-years 2024-05-26 00:00:00 2024-05-26 00:00:00 [facility] Alcohol intake 2023-07-12 00:00:00 2023-07-12 00:00:00 0 /d [facility] History SDOH Alcohol Frequency 2022-10-27 00:00:00 2022-10-27 00:00:00 1 [facility] History SDOH Social Connections Phone 2022-10-27 00:00:00 2022-10-27 00:00:00 5 [facility] History SDOH Social Connections Living 2022-10-27 00:00:00 2022-10-27 00:00:00 3 [facility] History SDOH Physical Activity DPW 2022-10-27 00:00:00 2022-10-27 00:00:00 0 [facility] History SDOH Physical Activity MPS 2022-10-27 00:00:00 2022-10-27 00:00:00 0 [facility] History SDOH Financial 2022-10-27 00:00:00 2022-10-27 00:00:00 5 [facility] History SDOH Food Worry 2022-10-27 00:00:00 2022-10-27 00:00:00 1 [facility] History SDOH Food Scarcity 2022-10-27 00:00:00 2022-10-27 00:00:00 1 [facility] History SDOH Transport Med 2022-10-27 00:00:00 2022-10-27 00:00:00 2 [facility] History SDOH Transport Non-Med 2022-10-27 00:00:00 2022-10-27 00:00:00 2 [facility] History SDOH Housing Unable to Pay 2022-10-27 00:00:00 2022-10-27 00:00:00 2 [facility] History SDOH Housing Places Lived 2022-10-27 00:00:00 2022-10-27 00:00:00 1 [facility] History SDOH Housing Homeless Last Year 2022-09-03 00:00:00 2022-09-03 00:00:00 2 [facility] Exposure to SARS-CoV-2 (event) 2022-08-23 00:00:00 2022-09-02 21:35:00 Yes [facility] History of Social function 2018-11-25 00:00:00 2018-11-25 00:00:00 [facility] Sex assigned at 1945 00:00:00 1945 00:00:00 [facility] Smoking Status Start Date Stop Date Source Ex-smoker 2024-05-26 00:00:00 2024-05-26 00:00:00 [facility] Medications Ordered Medication Name Filled Medication Name Start Date Stop Date Current Medication? Ordering Clinician Indication Dosage Frequency Signature (SIG) Comments Components Source furosemide 20 mg tablet 06-09 00:00: 00 07-10 05:59 :00 Yes [id number] 20mg Take 1 tablet by mouth in the morning for 30 days. [facility] guaiFENesin 100 mg/5 mL solution 06-08 00:00: 00 Yes [id number] 200mg Take 10 mL by mouth every 6 (six) hours as needed for Cough. [facility] insulin lispro, human, 100 unit/mL injection 06-08 00:00: 00 Yes [id number] 5U inject 5 Units under the skin in the morning and 5 Units at noon and 5 Units in the evening. inject before meals. [facility] carvediloL 3.125 mg tablet 06-08 00:00: 00 07-09 05:59 :00 Yes [id number] 3.125mg Take 1 tablet by mouth in the morning and 1 tablet in the evening. Take with meals. Do all this for 30 days. [facility] insulin glargine (LANTUS U-100) injection 15 Units 06-06 02:00: 00 06-08 23:43 :38 No 15U 15 Units, Subcutaneo us, BID, First dose (after last modificati on) on Thu06/05/24 at 2000, Until Discontinu ed, Routine [facility] insulin lispro (human) (HumaLOG U-100) injection 12 Units 06-05 22:30: 00 06-08 23:43 :38 No 12U 12 Units, Subcutaneo us, TIDAC, First dose (after last modificati on) on Thu06/05/24 at 1630, Until Discontinu ed, Routine [facility] predniSONE (DELTASONE) tablet 10 mg 06-05 15:00: 00 06-08 13:47 :00 No 10mg 10 mg, Oral, DAILY, 4 doses, First dose on Thu06/05/24 at 0900, Last dose on Thu06/08/24 at 0900, Routine [facility] ipratropium -albuteroL (DUONEB) 0.5 mg-3 mg(2.5 mg base)/3 mL nebulizer solution 3 mL 06-04 02:00: 00 06-08 23:43 :38 No 3mL 3 mL, Inhalation , TID, First dose (after last modificati on) on Thu06/03/24 at 2000, Until Discontinu ed, Routine [facility] predniSONE (DELTASONE) tablet 20 mg 06-01 15:00: 00 06-04 14:01 :00 No 20mg 20 mg, Oral, DAILY, 4 doses, First dose on Thu06/01/24 at 0900, Last dose on Thu06/04/24 at 0900, Routine [facility] furosemide (LASIX) injection 20 mg 05-31 11:15: 00 05-31 10:46 :00 No 20mg 20 mg, Slow IV Push, ONCE, 1 dose, On Thu05/31/24 at 0515, [facility] methylPREDN ISolone sod succ (SOLU-MEDRO L (PF)) injection 40 mg 05-31 10:13: 00 05-31 10:33 :00 No 40mg 40 mg, Intravenou s, ONCE, 1 dose, On Thu05/31/24 at 0415, 1 mL [facility] NaCl 0.9% (NS) injection 10 mL 05-30 17:05: 38 06-08 23:43 :38 No 10mL 10 mL, Slow IV Push, PRN, Starting on Thu05/30/24 at 1105, Until Thu06/08/24 at 1743, Routine, line maintenanc e [facility] lidocaine 1% (PF) (XYLOCAINE) injection 5 mL 05-30 17:05: 38 06-08 23:43 :38 No 5mL 5 mL, Subcutaneo us, PRN, 1 dose, Starting on Thu05/30/24 at 1105, Until Thu06/08/24 at 1743, Routine, Local anesthesia [facility] carvediloL (COREG) tablet 3.125 mg 05-30 16:45: 00 Yes 3.125mg 3.125 mg, Oral, BID MEALS, First dose (after last modificati on) on Thu05/30/24 at 1045, Until Discontinu ed, Routine [facility] guaiFENesin 100 mg/5 mL solution 200 mg 05-29 18:00: 00 Yes 200mg 200 mg, Oral, Q6H, First dose on Thu05/29/24 at 1200, Until Discontinu ed, Routine [facility] hydralAZINE (APRESOLINE ) injection 10 mg 05-29 05:15: 59 06-08 23:43 :38 No 10mg 10 mg, Slow IV Push, Q4HPRN, Starting on 05/28/24 at 2315, Until Thu06/08/24 at 1743, STAT, DBP=>100; SBP=>160 [facility] insulin lispro (human) (HumaLOG U-100) injection 10 Units 05-28 22:30: 00 06-05 17:44 :26 No 10U 10 Units, Subcutaneo us, TIDAC, First dose (after last modificati on) on Thu05/28/24 at 1630, Until Discontinu ed, Routine [facility] methylPREDN ISolone sod succ (SOLU-MEDRO L (PF)) injection 40 mg 05-28 15:00: 00 05-31 19:56 :21 No 40mg 40 mg, Slow IV Push, DAILY, 5 doses, First dose (after last modificati on) on Thu05/28/24 at 0900, Last dose on Thu06/01/24 at 0900, Routine [facility] losartan (COZAAR) tablet 50 mg 05-28 15:00: 00 05-30 16:39 :37 No 50mg 50 mg, Oral, DAILY, First dose (after last modificati on) on Thu05/28/24 at 0900, Until Discontinu ed, Routine [facility] cefTRIAXone (ROCEPHIN) 1,000 mg in water for injection, sterile 10 mL IV Push 05-28 03:00: 00 05-31 02:52 :00 No 1000mg 1,000 mg, Intravenou s, Q24H ABX, 4 doses, First dose on Thu05/27/24 at 2100, Last dose on Thu05/30/24 at 2100, 10 mL, Reason for Anti-Infec tive: Documented Infection, Documented Infection Site: Respirator y, Duration of Therapy: 7 days [facility] insulin glargine (LANTUS U-100) injection 30 Units 05-28 02:00: 00 06-05 17:42 :13 No 30U 30 Units, Subcutaneo us, BID, First dose (after last modificati on) on Thu05/27/24 at 2000, Until Discontinu ed, Routine [facility] ipratropium -albuteroL (DUONEB) 0.5 mg-3 mg(2.5 mg base)/3 mL nebulizer solution 3 mL 05-28 00:00: 00 06-04 01:47 :21 No 3mL 3 mL, Inhalation , Q6H, First dose (after last modificati on) on Thu05/27/24 at 1800, Until Discontinu ed, Routine [facility] Sliding Scale Insulin - Lispro (HumaLOG) 05-27 23:00: 00 06-08 23:43 :38 No Subcutaneo us, TID MEALS+HS, First dose on Thu05/27/24 at 1700, Until Discontinu ed, Routine [facility] insulin lispro (human) (HumaLOG U-100) injection 8 Units 05-27 22:30: 00 05-28 18:44 :31 No .3U/kg/ d 8 Units (rounded from 8.4 Units = 0.3 Units/kg/d ay ?84 kg), Subcutaneo us, TIDAC, First dose (after last modificati on) on Thu05/27/24 at 1630, Until Discontinu ed, Routine [facility] losartan (COZAAR) tablet 25 mg 05-27 22:30: 00 05-27 22:30 :00 No 25mg 25 mg, Oral, ONCE, 1 dose, On Thu05/27/24 at 1630, Routine [facility] furosemide (LASIX) tablet 20 mg 05-27 15:00: 00 Yes 20mg 20 mg, Oral, DAILY, First dose on Thu05/27/24 at 0900, Until Discontinu ed, Routine [facility] enoxaparin (LOVENOX) injection 40 mg 05-27 15:00: 00 06-08 23:43 :38 No 40mg 40 mg, Subcutaneo us, DAILY, First dose on Thu05/27/24 at 0900, Until Discontinu ed, Routine [facility] ferrous sulfate tablet 325 mg 05-27 15:00: 00 06-08 23:43 :38 No 325mg 325 mg, Oral, DAILY, First dose on Thu05/27/24 at 0900, Until Discontinu ed, Routine [facility] losartan (COZAAR) tablet 25 mg 05-27 15:00: 00 05-27 22:18 :50 No 25mg 25 mg, Oral, DAILY, First dose on Thu05/27/24 at 0900, Until Discontinu ed, Routine [facility] gabapentin (NEURONTIN) tablet 800 mg 05-27 02:00: 00 06-08 23:43 :38 No 800mg 800 mg, Oral, BID, First dose on Thu05/26/24 at 1999, Until Discontinu ed, Routine [facility] ARIPiprazol e (ABILIFY) tablet 2.5 mg 05-27 02:00: 00 06-08 23:43 :38 No 2.5mg 2.5 mg, Oral, BID, First dose on Thu05/26/24 at 1999, Until Discontinu ed, Routine [facility] magnesium oxide (MAG-OX 400) tablet 400 mg 05-27 02:00: 00 06-08 23:43 :38 No 400mg 400 mg, Oral, BID, First dose on Thu05/26/24 at 1999, Until Discontinu ed, Routine [facility] insulin glargine (LANTUS U-100) injection 25 Units 05-27 02:00: 00 05-27 23:03 :24 No 25U 25 Units, Subcutaneo us, BID, First dose (after last modificati on) on Thu05/26/24 at 1999, Until Discontinu ed, Routine [facility] insulin lispro (human) (HumaLOG U-100) injection 7 Units 05-26 22:30: 00 05-27 21:36 :16 No 7U 7 Units, Subcutaneo us, TIDAC, First dose (after last modificati on) on Thu05/26/24 at 1630, Until Discontinu ed, [facility]ine [facility] mupirocin (BACTROBAN OINT) 2 % oinintment 05-26 17:30: 00 06-08 23:43 :38 No [facility] flucon[facility] (DIFLUCAN) tablet 150 mg 05-26 17:30: 00 05-26 17:20 :00 No 150mg 150 mg, Oral, ONCE, 1 dose, On Thu05/26/24 at 1130, SYED, Reason for Anti-Infec tive: Documented Infection, Documented Infection Site: Other, Other site: Vaginal, Duration of Therapy: Other (see Comments) [facility] azithromyci n (ZITHROMAX) tablet 500 mg 05-26 15:00: 00 05-27 14:41 :00 No 500mg 500 mg, Oral, DAILY, 2 doses, First dose on Thu05/26/24 at 0900, Last dose on Thu05/27/24 at 0900, Routine, Reason for Anti-Infec tive: Documented Infection, Documented Infection Site: Respirator y, Duration of Therapy: Other (see Comments) [facility] insulin lispro (human) (HumaLOG U-100) injection 3 Units 05-26 13:30: 00 05-26 19:27 :37 No 3U 3 Units, Subcutaneo us, TIDAC, First dose on Thu05/26/24 at 0730, Until Discontinu ed, Routine [facility] atorvastati n (LIPITOR) tablet 80 mg 05-26 03:00: 00 06-08 23:43 :38 No 80mg 80 mg, Oral, QHS, First dose on Thu05/25/24 at 2100, Until Discontinu ed, Routine [facility] cefTRIAXone (ROCEPHIN) 1,000 mg in water [...] Respirator y, Duration of therapy: 5 days [facility] Sliding Scale Insulin - Lispro (HumaLOG) 05-26 03:00: 00 05-27 21:36 :16 No Subcutaneo us, TID MEALS+HS, First dose on Thu05/25/24 at 2100, Until Discontinu ed, Routine [facility] insulin glargine (LANTUS U-100) injection 20 Units 05-26 03:00: 00 05-26 19:27 :37 No 20U 20 Units, Subcutaneo us, QHS, First dose (after last modificati on) on Thu05/25/24 at 2100, Until Discontinu ed, Routine [facility] methylPREDN ISolone sod succ (SOLU-MEDRO L (PF)) injection 40 mg 05-25 15:45: 00 05-27 16:14 :56 No 40mg 40 mg, Slow IV Push, BID, First dose (after last modificati on) on Thu05/25/24 at 0945, Until Discontinu ed, Routine [facility] spironolact one (ALDACTONE) tablet 12.5 mg 05-25 15:00: 00 06-08 23:43 :38 No 12.5mg 12.5 mg, Oral, DAILY, First dose on Thu05/25/24 at 0900, Until Discontinu ed, Routine [facility] ezetimibe (ZETIA) tablet 10 mg 05-25 15:00: 00 06-08 23:43 :38 No 10mg 10 mg, Oral, DAILY, First dose on Thu05/25/24 at 0900, Until Discontinu ed, Routine [facility] clopidogreL (PLAVIX) 75 mg tablet 75 mg 05-25 15:00: 00 06-08 23:43 :38 No 75mg 75 mg, Oral, DAILY, First dose on Thu05/25/24 at 0900, Until Discontinu ed, Routine [facility] aspirin chewable tablet 81 mg 05-25 15:00: 00 06-08 23:43 :38 No 81mg 81 mg, Oral, DAILY, First dose on Thu05/25/24 at 0900, Until Discontinu ed, Routine [facility] enoxaparin (LOVENOX) injection 40 mg 05-25 15:00: 00 05-27 00:06 :23 No 40mg 40 mg, Subcutaneo us, DAILY, First dose on Thu05/25/24 at 0900, Until Discontinu ed, Routine [facility] DULoxetine (CYMBALTA) capsule 30 mg 05-25 14:00: 00 06-08 23:43 :38 No 30mg 30 mg, Oral, BID, First dose on Thu05/25/24 at 0800, Until Discontinu ed, Routine [facility] nystatin (MYCOSTATIN ) cream 05-25 14:00: 00 06-08 23:43 :38 No Topical, BID, First dose on Thu05/25/24 at 0800, Until Discontinu ed, Routine [facility] carvediloL (COREG) tablet 6.25 mg 05-25 14:00: 00 05-30 16:39 :37 No 6.25mg 6.25 mg, Oral, BID MEALS, First dose on Thu05/25/24 at 0800, Until Discontinu ed, Routine [facility] ipratropium -albuteroL (DUONEB) 0.5 mg-3 mg(2.5 mg base)/3 mL nebulizer solution 3 mL 05-25 14:00: 00 05-27 20:10 :57 No 3mL 3 mL, Inhalation , QID, First dose on Thu05/25/24 at 0800, Until Discontinu ed, Routine [facility] Sliding Scale Insulin-Reg ular 05-25 13:30: 00 05-25 23:15 :30 No Subcutaneo us, AC+HS, First dose on Thu05/25/24 at 0730, Until Discontinu ed, Routine [facility] glucagon HCL injection 1 mg 05-25 13:05: 32 06-08 23:43 :38 No 1mg [facility] dextrose 50 % in water (D50W) injection 25 mL 05-25 13:05: 32 06-08 23:43 :38 No 25mL [facility] codeine-gua ifenesin (ROBITUSSIN AC) 10-100 mg/5 mL oral solution 5 mL 05-25 12:56: 37 05-29 15:54 :51 No 5mL 5 mL, Oral, Q4HPRN, Starting on Thu05/25/24 at 0656, Until Thu05/29/24 at 0954, Routine, Cough [facility] pantoprazol e (PROTONIX) EC tablet 40 mg 05-25 12:00: 00 06-08 23:43 :38 No 40mg 40 mg, Oral, QAM-0600, First dose on Thu05/25/24 at 0600, Until Discontinu ed, Routine [facility] traMADoL (ULTRAM) tablet 50 mg 05-25 08:32: 34 06-08 23:43 :38 No 50mg 50 mg, Oral, Q4HPRN, Starting on Thu05/25/24 at 0232, Until Thu06/08/24 at 1743, Routine, Pain (scale 4-6) [facility] ipratropium -albuteroL (DUONEB) 0.5 mg-3 mg(2.5 mg base)/3 mL nebulizer solution 3 mL 05-25 08:30: 39 06-08 23:43 :38 No 3mL 3 mL, Inhalation , QIDPRN, Starting on Thu05/25/24 at 0230, Until Thu06/08/24 at 1743, Routine, Wheezing, Shortness of Breath, Bronchospa sm, Chest tightness [facility] azithromyci n (ZITHROMAX) 500 mg in NaCl 0.9% (NS) 250 mL VIAL-MATE IV piggyback 05-25 05:45: 00 05-25 08:45 :00 No 500mg 500 mg, IV Piggyback, ONCE, 1 dose, On Thu05/24/24 at 2345, Administer over 60 Minutes, 250 mL, Reason for Anti-Infec tive: Documented Infection, Documented Infection Site: Respirator y, Duration of Therapy: Once (ED) [facility] acetaminoph en (TYLENOL) tablet 650 mg 05-25 05:09: 08 06-08 23:43 :38 No 650mg 650 mg, Oral, Q6HPRN, Starting on Thu05/24/24 at 2309, Until Thu06/08/24 at 1743, Routine, Pain (scale 1-3) [facility] ipratropium -albuteroL (DUONEB) 0.5 mg-3 mg(2.5 [...] dose, On Thu05/24/24 at 2200, 2 mL [facility] ipratropium -albuteroL (DUONEB) 0.5 mg-3 mg(2.5 [...] Site: Urine, Duration of Therapy: Once (ED) [facility] clopidogrel 75 mg tablet 2023-05 00:00: 00 Yes mg Surendra White ezetimibe 10 mg tablet 2023-05 00:00: 00 Yes mg Surendra Whiet iopamidol (ISOVUE 370-500 mL) injection 85 mL 2023-05 22:00: 00 05-05 21:04 :00 No [id number] 85mL 85 mL, Intravenou s, ONCE, 1 dose, On Mendy 05/05/24 at 1600, Routine [facility] losartan 25 mg tablet 2023-05 00:00: 00 Yes mg Surendra White nystatin 100,000 unit/gram topical powder 2023-05 00:00: 00 Yes 1unit/g milad Surendra White clopidogreL 75 mg tablet 2023-05 00:00: 00 Yes [id number] 75mg Take 1 tablet by mouth in the morning. [facility] Tresiba FlexTouch U-100 insulin 100 unit/mL [...] morning and 1 tablet in the evening. [facility] lactated ringers IV infusion 1,000 mL 2023-05 14:45: 00 03-10 21:41 :04 No 1000mL at 75 mL/hr, 1,000 mL, IV Infusion, CONTINUOUS , Starting on Mendy 03/10/24 at 0945, Until Mendy 03/10/24 at 1641, Routine, PACU [facility] ondansetron (ZOFRAN (PF)) injection 4 mg 2023-05 0 14:42: 58 03-10 21:41 :04 No 4mg 4 mg, Slow IV Push, PRN, 1 dose, Starting on Mendy 03/10/24 at 0942, Until Thu03/10/24 at 1641, Routine, Nausea and Vomiting (N/V), PACU [facility] aspirin 81 mg chewable tablet 2023-05 14:40: 33 Yes 81mg Take 1 tablet by mouth in the morning. [facility] iopamidol (ISOVUE-370 ) injection 2023-05 14:10: 00 03-10 14:37 :27 No ONCE INTRA PROCEDURE, Starting on Mendy 03/10/24 at 0910, Until Thu03/10/24 at 0937, Routine, CV Intraproce dure [facility] ezetimibe 10 mg tablet 2023-05 00:00: 00 Yes [id number] 10mg Take 1 tablet by mouth in the morning. [facility] atorvastati n (LIPITOR) 80 mg tablet 2023-05 00:00: 00 03-04 00:00 :00 No [id number] 80mg Take 1 tablet by mouth at bedtime. [facility] pantoprazol e 40 mg tablet,norm yed release 2023-05 00:00: 00 Yes mg Surendra White fenofibrate micronized 134 mg capsule 2023-05 0- 00:00: 00 Yes mg Surendra White gabapentin 800 mg tablet 2023-05- 00:00: 00 Yes mg Surendra White pantoprazol [...] at 1700, STAT, Indication for insulin: Hyperglyce [facility] insulin regular human (HUMULIN R) injection 8 Units 12-29 21:00: 00 12-29 19:59 :00 No 8U 8 Units, Slow IV Push, ONCE, 1 dose, On Thu12/30/23 at 1600, STAT, Indication for insulin: Hyperglyce [facility] insulin regular human (HUMULIN R) injection 6 Units 12-29 20:00: 00 12-29 19:01 :00 No 6U 6 Units, Slow IV Push, ONCE, 1 dose, On Thu12/30/23 at 1500, STAT, Indication for insulin: Hyperglyce roby [facility] NaCl 0.9% (NS) bolus infusion 1,000 mL 12-29 20:00: 00 12-29 21:50 :00 No 1000mL at 999 mL/hr, 1,000 mL, IV Infusion, ONCE, 1 dose, On Thu12/30/23 at 1500, STAT [facility] metformin 1,000 mg tablet 12-24 00:00: 00 Yes 1mg Surendra White nystatin 100,000 unit/gram topical powder 12-16 00:00: 00 Yes 1unit/g milad Surendra White fluconazole 150 mg tablet 12-16 00:00: 00 Yes 1mg Surendra White carvedilol 12.5 mg tablet 12-09 00:00: 00 Yes mg Surendra White losartan 25 mg tablet 12-09 00:00: 00 Yes mg Surendra White Abilify 5 mg tablet 24 00:00: 00 Yes 5mg Surendra White Abilify 5 mg tablet 11-10 00:00: 00 Yes 5mg Surendra White fenofibrate micronized 67 mg capsule 10-26 00:00: 00 11-26 04:59 :00 No [id number] 67mg Take 1 capsule by mouth in the morning for 30 days. [facility] BIOTIN ORAL 10-25 17:14: 55 Yes 2000mg Take 2,000 mg by mouth daily. [facility] metFORMIN (GLUCOPHAGE ) 1,000 mg tablet 10-25 17:14: 55 Yes 1000mg Take 1 tablet by mouth in the morning and 1 tablet in the evening. Take with meals. [facility] GABAPENTIN ORAL 10-25 17:14: 55 06-08 00:00 :00 No 800mg Take 800 mg by mouth in the morning and 800 mg in the evening. [facility] potassium chloride (K-DUR) 10 mEq CR tablet 10-25 17:14: 06-08 00:00 :00 No 20meq Take 2 tablets by mouth in the morning. [facility] tolterodine LA (DETROL LA) 4 mg 24 hr capsule 10-25 17:14: 06-08 00:00 :00 No 4mg Take 1 capsule by mouth in the morning. [facility] Fentanyl, Bulk, 100 % Powd 10-25 17:14: 06-08 00:00 :00 No [facility] diazePAM 5 mg tablet 10-25:: 06-08 00:00 :00 No (Schedule IV Drug) TAKE 1 TABLET BY MOUTH EVERY EVENING [facility] raloxifene 60 mg tablet 10-25:14: 06-08 00:00 :00 No 1 tablet [facility] Insulin Detemir (LEVEMIR FLEXPEN) 100 unit/mL (3 mL) injection 10-25 17:14: 06-08 00:00 :00 No inject under the skin. [facility] ezetimibe (ZETIA) 10 mg tablet 10-25 17:14: 03-04 00:00 :00 No 10mg Take 1 tablet by mouth in the morning. [facility] Fenofibrate 150 mg capsule 10-25 10:40: 23 10-25 00:00 :00 No 150mg Take 1 capsule by mouth in the morning. [facility] losartan 25 mg tablet 10-25 00:00: 00 06-08 00:00 :00 No [id number] 50mg Take 2 tablets by mouth in the morning. [facility] atorvastati n 80 mg tablet 10-25 00:00: 00 11-25 04:59 :00 No [id number] 80mg Take 1 tablet by mouth at bedtime for 30 days. [facility] NIFEdipine ER 30 mg tablet 10-25 00:00: 00 11-25 04:59 :00 No [id number] 30mg Take 1 tablet by mouth in the morning for 30 days. [facility] cefdinir 300 mg capsule 10-25 00:00: 00 11-04 04:59 :00 No [id number] 300mg Take 1 capsule by mouth every 12 (twelve) hours for 9 days. [facility] cefTRIAXone (ROCEPHIN) 1,000 mg in NaCl 0.9% (NS) 100 mL MINI-BAG 10-24 15:30: 00 10-31 15:29 :00 No 1000mg 1,000 mg, IV Piggyback, Q24H ABX, 7 doses, First dose on Thu10/25/23 at 1030, Last dose on Thu10/31/23 at 1030, Administer over 30 Minutes, 100 mL, Reason for Anti-Infec tive: Documented Infection, Documented Infection Site: Urine, Duration of Therapy: 7 days [facility] furosemide (LASIX) tablet 40 mg 10-24 14:00: 00 Yes 40mg 40 mg, Oral, DAILY, First dose (after last modificati on) on Thu10/25/23 at 0900, Until Discontinu ed, Routine [facility] insulin glargine (LANTUS U-100) injection 25 Units 10-23 01:00: 00 Yes 25U 25 Units, Subcutaneo us, Q12H, First dose (after last modificati on) on Thu10/23/23 at 2000, Until Discontinu ed, Routine [facility] Sliding Scale Insulin-Reg ular 10-22 21:30: 00 Yes Subcutaneo us, AC+HS, First dose on Thu10/23/23 at 1630, Until Discontinu ed, Routine [facility] insulin regular human (HUMULIN R) injection 8 Units 10-22 19:00: 00 10-22 18:22 :00 No 8U 8 Units, Subcutaneo us, ONCE, 1 dose, On Thu10/23/23 at 1400, SYED, Indication for insulin: Hyperglyce roby [facility] dextrose 50 % in water (D50W) injection 25 mL 10-22 16:50: 45 Yes 25mL 25 mL, Slow IV Push, PRN, Starting on Thu10/23/23 at 1150, Until Discontinu ed, SYED, Blood Glucose < or = 70 mg/dL and patient is NPO, unable to swallow or has mental status changes. 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 approving Restricted medication : ANGEL LUIS RANGEL [facility] piperacilli n-tazobacta m (ZOSYN) 3.375 g [...] Respirator y, Duration of Therapy: Once (ED) [facility] methylPREDN ISolone sod succ (SOLU-MEDRO L (PF)) injection 40 mg 10-22 10:15: 00 10-22 10:01 :00 No 40mg 40 mg, Intravenou s, ONCE, 1 dose, On Thu10/23/23 at 0515, 1 mL [facility] clonazePAM (KLONOPIN) tablet 1 mg 10-22 02:00: 00 Yes 1mg 1 mg, Oral, QHS, First dose on Thu10/22/23 at 2100, Until Discontinu ed, Routine [facility] atorvastati n (LIPITOR) tablet 80 mg 10-22 02:00: 00 Yes 80mg 80 mg, Oral, QHS, First dose on Thu10/22/23 at 2100, Until Discontinu ed, Routine [facility] acetaminoph en-codeine (TYLENOL #3) 300-30 mg tablet 1 tablet 10-21 23:25: 11 Yes 1{tbl} 1 tablet, Oral, Q4HPRN, Starting on Thu10/22/23 at 1825, Until Discontinu ed, Routine, Pain (scale 7-10) [facility] traMADoL (ULTRAM) tablet 50 mg 10-21 23:24: 49 Yes 50mg 50 mg, Oral, Q6HPRN, Starting on Thu10/22/23 at 1824, Until Discontinu ed, Routine, Pain (scale 4-6) [facility] enoxaparin (LOVENOX) injection 40 mg 10-21 22:00: 00 Yes 40mg 40 mg, Subcutaneo us, DAILY, First dose on Thu10/22/23 at 1700, Until Discontinu ed, Routine [facility] Saline Bubble Study 10-21 17:29: 42 Yes [id number] 6mL 6 mL, Injection, SEE-INSTRU CTIONS, Starting on Thu10/22/23 at 1229, Until Discontinu ed, Routine [facility] gabapentin (NEURONTIN) capsule 600 mg 10-21 15:00: 00 Yes 600mg 600 mg, Oral, TID, First dose on Thu10/22/23 at 1000, Until Discontinu ed [facility] fenofibrate micronized (LOFIBRA) capsule 67 mg 10-21 15:00: 00 Yes 67mg 67 mg, Oral, DAILY, First dose on Thu10/22/23 at 1000, Until Discontinu ed [facility] tolterodine LA (DETROL LA) 24 hr capsule 4 mg 10-21 14:00: 00 Yes 4mg 4 mg, Oral, DAILY, First dose on Thu10/22/23 at 0900, Until Discontinu ed, Routine [facility] spironolact one (ALDACTONE) tablet 12.5 mg 10-21 14:00: 00 Yes 12.5mg 12.5 mg, Oral, DAILY, First dose on Thu10/22/23 at 0900, Until Discontinu ed, [facility]ine [facility] KCL (KLOR-CON M10) tablet 10 mEq 10-21 14:00: 00 Yes 10meq 10 mEq, Oral, DAILY, First dose on Thu10/22/23 at 0900, Until Discontinu ed [facility] pantoprazol e (PROTONIX) EC tablet 40 mg 10-21 14:00: 00 Yes 40mg 40 mg, Oral, DAILY, First dose on Thu10/22/23 at 0900, Until Discontinu ed, Routine [facility] carvediloL (COREG) tablet 6.25 mg 10-21 13:43: 06 Yes 6.25mg 6.25 mg, Oral, BID MEALS, First dose on Thu10/22/23 at 1700, Until Discontinu ed, Routine [facility] insulin glargine (LANTUS U-100) injection 15 Units 10-21 13:21: 58 10-22 18:09 :16 No 15U 15 Units, Subcutaneo us, Q12H, First dose on Thu10/22/23 at 2000, Until Discontinu ed, Routine [facility] furosemide (LASIX) tablet 40 mg 10-21 13:18: 54 10-23 14:18 :52 No 40mg 40 mg, Oral, BID, First dose on Thu10/22/23 at 2000, Until Discontinu ed, Routine [facility] acetaminoph en (TYLENOL) tablet 650 mg 10-21 13:00: 23 Yes 650mg 650 mg, Oral, Q6HPRN, Starting on Thu10/22/23 at 0800, Until Discontinu ed, Routine, Temp > 38 C, headache [facility] DULoxetine (CYMBALTA) capsule 30 mg 10-21 13:00: 00 Yes 30mg 30 mg, Oral, BID, First dose on Mendy 10/22/23 at 0800, Until Discontinu ed, Routine [facility] losartan (COZAAR) tablet 50 mg 10-21 13:00: 00 Yes 50mg 50 mg, Oral, BID, First dose on Mendy 10/22/23 at 0800, Until Discontinu ed, Routine [facility] Sliding Scale Insulin-Reg ular 10-21 12:30: 00 10-22 16:50 :35 No Subcutaneo us, AC+HS, First dose on Thu10/22/23 at 0730, Until Discontinu ed, Routine [facility] glucagon (GLUCAGEN DIAGNOSTIC KIT) injection 1 mg 10-21 11:03: 13 Yes 1mg 1 mg, Intramuscu lar, PRN, Starting on Mendy 10/22/23 at 0603, Until Discontinu ed, SYED, Blood Glucose < or = 70 mg/dL and patient is NPO, unable to swallow or has mental changes. [facility] NIFEdipine ER tablet 30 mg 10-21 11:00: 00 Yes 30mg 30 mg, Oral, BID AT 0600 - 1800, First dose on Thu10/22/23 at 0600, Until Discontinu ed, Routine [facility] aspirin chewable tablet 81 mg 10-21 06:45: 00 10-21 05:59 :00 No 81mg 81 mg, Oral, ONCE NOW, 1 dose, On Thu10/22/23 at 0145, SYED [facility] piperacilli n-tazobacta m (ZOSYN) 3.375 g in NaCl 0.9% (NS) 100 mL MINI-BAG 10-21 05:00: 00 10-21 05:35 :00 No 3.375g 3.375 g, IV Piggyback, ONCE, 1 dose, On Mendy 10/22/23 at 0000, Administer over 30 Minutes, 100 mL, Reason for Anti-Infec tive: Documented Infection, Documented Infection Site: Urine, Duration of Therapy: Once (ED) [facility] NaCl 0.9% (NS) bolus infusion 1,000 mL 10-21 04:00: 00 10-21 03:34 :00 No 1000mL at 999 mL/hr, 1,000 mL, IV Piggyback, ONCE, 1 dose, On Thu10/21/23 at 2300, STAT [facility] duloxetine 60 mg capsule,del ayed release - 00:00: 00 Yes mg Surendra White pantoprazol e 40 mg tablet,norm yed release 10-07 00:00: 00 Yes mg Surendra White FARXIGA 10 MG 09-20 00:00: 00 Yes Surendra White dapaglifloz in propanediol (FARXIGA) 10 mg tablet 09-20 00:00: 00 10-21 00:00 :00 No [id number] 10mg Take 1 tablet by mouth every morning. PLS SCHEDULE FOLLOW UP WITH PROVIDER [facility] Abilify 5 mg tablet 09-16 00:00: 00 Yes 5mg Surendra White ARIPIPRAZOL E 5 MG - 00:00: 00 Yes 5 Surendra White ezetimibe 10 mg tablet 09-13 00:00: 00 Yes mg Surendra White insulin glargine (U-300) conc. 300 unit/mL (1.5 mL) subcutaneou s pen -20 00:00: 00 Yes (1.5 mL) Surendra White furosemide 40 mg tablet -15 00:00: 00 Yes mg Surendra White Farxiga 10 mg tablet -06 00:00: 00 Yes mg Surendra White carvedilol 12.5 mg tablet - 00:00: 00 Yes mg Surendra White losartan 25 mg tablet -25 00:00: 00 Yes mg Surendra White pantoprazol e 40 mg tablet,norm yed release 3-22 00:00: 00 Yes mg Surendra White metformin 1,000 mg tablet - 00:00: 00 Yes 1mg Surendra White TAKE [...] 07-10 03:15: 00 07-10 03:15 :00 No [id number] 100mL 100 mL, Intravenou s, ONCE, 1 dose, On [facility] 07/09/23 at 2115, Routine [facility] pantoprazol e (PROTONIX) 80 mg in NaCl 0.9% (NS) 20 mL syringe 07-10 02:00: 00 07-10 01:28 :00 No 80mg 80 mg, IV Push, ONCE, 1 dose, On Mendy 07/09/23 at 2000, Administer over 2 Minutes, 20 mL [facility] TAKE 1 DAILY 07-10 00:00: 00 Yes 60 Surendra White ONDANSETRON ODT 4 MG 07-09 00:00: 00 Yes Surendra White ondansetron 4 mg disintegrat ing tablet 07-09 00:00: 00 06-08 00:00 :00 No [id number] 4mg Take 1 tablet by mouth every 8 (eight) hours as needed for Nausea and Vomiting (N/V). [facility] aripiprazol e 5 mg tablet - 00:00: 00 Yes mg Surendra White ezetimibe 10 mg tablet 06-18 00:00: 00 Yes mg Surendra White INJECT 30 UNITS IN AM AND 25 UNITS IN PM - 00:00: 00 Yes 300 Surendra White HALF TABLET Q AM 1-30 00:00: 00 Yes 25 Surendra White clopidogrel [...] 1 dose, On Thu04/01/23 at 1830, Routine [facility] furosemide (LASIX) injection 40 mg 2022-05 22:30: 00 04-01 22:32 :00 No 40mg 40 mg, IV Push, ONCE, 1 dose, On Thu04/01/23 at 1630, SYED [facility] potassium chloride (K-DUR) 10 mEq CR tablet 2022-05 18:22: 12 Yes 20meq Take 20 mEq by mouth daily. [facility] POT CL MICRO 20MEQ ER 2022-05 00:00: 00 Yes Surendra White KCL 20 mEq tablet 2022-05 00:00: 00 04-05 05:59 :00 No [id number] 20meq Take 1 tablet by mouth in the morning for 3 days. [facility] TAKE 1 TABLET DAILY 2022-05 00:00: 00 Yes Surendra White TAKE 1 TABLET TWICE A DAY 2022-05 00:00: 00 09-29 00:00 :00 No 125 Surendra White TAKE 1 TABLET TWICE DAILY. 2022-05 00:00: 00 09-29 00:00 :00 No 40 Surendra White GABAPENTIN ORAL 2022-05 13:47: 11 Yes 800mg Take 800 mg by mouth 3 (three) times daily. [facility] metFORMIN (GLUCOPHAGE ) 1,000 mg tablet 2022-05 13:47: 11 Yes 1000mg Take 1 tablet by mouth in the morning and 1 tablet in the evening. Take with meals. [facility] ezetimibe (ZETIA) 10 mg tablet 2022-05 13:47: 11 Yes 10mg Take 1 tablet by mouth in the morning. [facility] Fenofibrate 150 mg capsule 2022-05 13:47: 11 Yes 150mg Take 1 capsule by mouth in the morning. [facility] Insulin Detemir (LEVEMIR FLEXPEN) 100 unit/mL (3 mL) injection 2022-05 13:47: 11 Yes inject under the skin. [facility] dapaglifloz in propanediol (FARXIGA) 10 mg tablet 2022-05 00:00: 00 Yes [id number] 10mg Take 1 tablet by mouth in the morning. [facility] TAKE 1 TABLET BY MOUTH EVERY [...] 2000mg Take 2,000 mg by mouth daily. [facility] GABAPENTIN ORAL 2022-05 0 15:53: 43 Yes 800mg Take 800 mg by mouth 3 (three) times daily. [facility] metFORMIN (GLUCOPHAGE ) 1,000 mg tablet 2022-05 15:53: 43 Yes 1000mg Take 1 tablet by mouth in the morning and 1 tablet in the evening. Take with meals. [facility] potassium chloride (K-DUR) 10 mEq CR tablet 2022-05 15:53: 43 Yes 20meq Take 20 mEq by mouth daily. [facility] tolterodine LA (DETROL LA) 4 mg 24 hr capsule 2022-05 15:53: 43 Yes 4mg Take 4 mg by mouth daily. [facility] ezetimibe (ZETIA) 10 mg tablet 2022-05 15:53: 43 Yes 10mg Take 1 tablet by mouth in the morning. [facility] Fentanyl, Bulk, 100 % Powd 2022-05 15:53: 43 Yes [facility] diazePAM 5 mg tablet 2022-05 15:53: 43 Yes (Schedule IV Drug) TAKE 1 TABLET BY MOUTH EVERY EVENING [facility] Fenofibrate 150 mg capsule 2022-05 15:53: 43 Yes 150mg Take 1 capsule by mouth in the morning. [facility] raloxifene 60 mg tablet 2022-05 15:53: 43 Yes 1 tablet [facility] Insulin Detemir (LEVEMIR FLEXPEN) 100 unit/mL (3 mL) injection 2022-05 15:53: 43 Yes inject under the skin. [facility] Lidocaine (LIDOCARE) 4 % patch 1 Patch 2022-05 18:00: 00 02-17 05:33 :00 No 1{patch } 1 Patch, Topical, Administer over 12 Hours, ONCE, 1 dose, On Thu02/16/23 at 1300, Routine [facility] Sliding Scale Insulin - Lispro (HumaLOG) 2022-05 17:00: 00 Yes Subcutaneo us, TID MEALS+HS, First dose (after last modificati on) on Thu02/16/23 at 1200, Until Discontinu ed, Routine [facility] losartan (COZAAR) tablet 25 mg 2022-05 16:15: 00 Yes 25mg 25 mg, Oral, DAILY, First dose on Thu02/16/23 at 1115, Until Discontinu ed, [facility]ine [facility] BI[facility]IN [facility] 2022-05 11:39: 35 Yes 2000mg Take 2,000 mg by mouth daily. [facility] GABAPENTIN ORAL 2022-05 11:39: 35 Yes 800mg Take 800 mg by mouth 3 (three) times daily. [facility] metFORMIN (GLUCOPHAGE ) 1,000 mg tablet 2022-05 11:39: 35 Yes 1000mg Take 1 tablet by mouth in the morning and 1 tablet in the evening. Take with meals. [facility] potassium chloride (K-DUR) 10 mEq CR tablet 2022-05 11:39: 35 Yes 20meq Take 20 mEq by mouth daily. [facility] tolterodine LA (DETROL LA) 4 mg 24 hr capsule 2022-05 11:39: 35 Yes 4mg Take 4 mg by mouth daily. [facility] ezetimibe (ZETIA) 10 mg tablet 2022-05 11:39: 35 Yes 10mg Take 1 tablet by mouth in the morning. [facility] Fentanyl, Bulk, 100 % Powd 2022-05 11:39: 35 Yes [facility] diazePAM 5 mg tablet 2022-05 11:39: 35 Yes (Schedule IV Drug) TAKE 1 TABLET BY MOUTH EVERY EVENING [facility] Fenofibrate 150 mg capsule 2022-05 11:39: 35 Yes 150mg Take 1 capsule by mouth in the morning. [facility] raloxifene 60 mg tablet 2022-05 11:39: 35 Yes 1 tablet [facility] Insulin Detemir (LEVEMIR FLEXPEN) 100 unit/mL (3 mL) injection 2022-05 11:39: 35 Yes inject under the skin. [facility] furosemide (LASIX) tablet 40 mg 2022-05 01:00: 00 Yes 40mg 40 mg, Oral, BID, First dose on 02/15/23 at 2000, Until Discontinu ed, Routine [facility] ferrous sulfate 325 mg (65 mg iron) tablet 2022-05 00:00: 00 Yes [id number] 325mg Take 1 tablet by mouth in the morning. [facility] carvediloL 6.25 mg tablet 2022-05 00:00: 00 06-08 00:00 :00 No [id number] 6.25mg Take 1 tablet by mouth in the morning and 1 tablet in the evening. Take with meals. [facility] furosemide 40 mg tablet 2022-05 00:00: 00 06-08 00:00 :00 No [id number] 40mg Take 1 tablet by mouth in the morning and 1 tablet in the evening. [facility] PANTOPRAZOL E 40MG DR 2022-05 00:00: 00 09-29 00:00 :00 No Surendra White Sliding Scale Insulin - Lispro (HumaLOG) 2022-05 05:00: 00 02-16 14:54 :56 No Subcutaneo us, Q6H, First dose (after last modificati on) on 02/15/23 at 0000, Until Discontinu ed, Routine [facility] atorvastati n (LIPITOR) tablet 40 mg 2022-05 02:00: 00 Yes 40mg 40 mg, Oral, QHS, First dose on 02/14/23 at 2100, Until Discontinu ed, Routine [facility] furosemide (LASIX) injection 40 mg 02-14 22:00: 02-14 22:58 :00 No 40mg 40 mg, Slow IV Push, DAILY, 1 dose, First dose (after last modificati on) on 02/14/23 at 1700, Routine [facility] KCL (KLOR-CON M20) tablet 40 mEq 02-13 23:15: 00 02-13 23:04 :00 No 40meq 40 mEq, Oral, ONCE, 1 dose, On 02/13/23 at 1815, Routine [facility] magnesium oxide (MAG-OX 400) tablet 400 mg 02-13 15:00: 00 02-13 17:42 :00 No 400mg 400 mg, Oral, ONCE, 1 dose, On Thu02/13/23 at 1000, Routine [facility] potassium chloride in water (KCL) 20 mEq/100 mL RTU IVPB 20 mEq 02-13 04:30: 00 02-13 09:49 :00 No 20meq 20 mEq, IV Piggyback, Q2H ES, 2 doses, First dose on Thu02/12/23 at 2330, Last dose on Thu02/13/23 at 0130, 100 mL [facility] furosemide (LASIX) injection 40 mg 02-13 01:00: 00 02-13 01:48 :00 No 40mg 40 mg, Slow IV Push, Q12H, 1 dose, First dose (after last modificati on) on Thu02/12/23 at 2000, Routine [facility] INJECT 30 UNITS IN AM AND 25 UNITS IN PM 02-13 00:00: 00 09-29 00:00 :00 No 100 Surendra White insulin glargine (LANTUS U-100) injection 17 Units 02-12 14:00: 00 Yes 17U 17 Units, Subcutaneo us, DAILY, First dose (after last modificati on) on Thu02/12/23 at 0900, Until Discontinu ed, Routine [facility] peg-electro lyte soln (GOLYTELY) 236-22.74-6 .74 -5.86 gram solution 4,000 mL 02-11 23:30: 00 02-12 02:33 :00 No 4000mL 4,000 mL, Oral, ONCE, 1 dose, On Thu02/11/23 at 1830, Routine [facility] insulin lispro (human) (HumaLOG U-100) injection 3 Units 02-11 22:00: 00 Yes 3U 3 Units, Subcutaneo us, TID MEALS, First dose on Thu02/11/23 at 1700, Until Discontinu ed, Routine [facility] KCL (KLOR-CON M20) tablet 40 mEq 02-11 16:15: 00 02-11 15:36 :00 No 40meq 40 mEq, Oral, ONCE, 1 dose, On Thu02/11/23 at 1115, Routine [facility] KCL 20 mEq/15 mL solution 20 mEq 02-11 12:15: 00 02-11 11:32 :00 No 20meq 20 mEq, Oral, ONCE, 1 dose, On Thu02/11/23 at 0715, Routine [facility] magnesium sulfate in water 2 gram/50 mL (4 %) infusion 2 g 02-11 12:15: 00 02-11 12:32 :00 No 2g 2 g, IV Piggyback, Administer over 60 Minutes, ONCE, 1 dose, On Thu02/11/23 at 0715, Routine [facility] potassium chloride in water (KCL) 20 mEq/100 mL RTU IVPB 20 mEq 02-11 11:30: 00 02-11 17:16 :00 No 20meq 20 mEq, IV Piggyback, Q2H, 2 doses, First dose on Thu02/11/23 at 0630, Last dose on Thu02/11/23 at 0800, 100 mL [facility] QUEtiapine (SEROQUEL) tablet 25 mg 02-11 02:00: 00 Yes 25mg 25 mg, Oral, QHS, First dose (after last modificati on) on Thu02/10/23 at 2100, Until Discontinu ed, Routine [facility] Insulin Detemir (LEVEMIR FLEXPEN) 100 unit/mL (3 mL) injection 02-10 14:28: 17 Yes inject under the skin. [facility] insulin glargine (LANTUS U-100) injection 15 Units 02-10 14:00: 00 02-11 18:40 :13 No 15U 15 Units, Subcutaneo us, DAILY, First dose (after last modificati on) on Thu02/10/23 at 0900, Until Discontinu ed, Routine [facility] KCL 20 mEq/15 mL solution 40 mEq 02-10 13:00: 00 02-10 14:02 :00 No 40meq 40 mEq, Oral, ONCE, 1 dose, On Thu02/10/23 at 0800, Routine [facility] pantoprazol e (PROTONIX) EC tablet 40 mg 02-10 01:00: 00 Yes 40mg 40 mg, Oral, BID, First dose on Thu02/09/23 at 2000, Until Discontinu ed, Routine [facility] cefTRIAXone (ROCEPHIN) 1,000 mg in NaCl 0.9% [...] y
Durat ion of therapy: 72 hours [facility] insulin glargine (LANTUS U-100) injection 8 Units 02-09 14:00: 00 02-10 12:42 :12 No 8U 8 Units, Subcutaneo us, DAILY, First dose on Thu02/09/23 at 0900, Until Discontinu ed, Routine [facility] KCL 20 mEq/15 mL solution 40 mEq 02-09 13:45: 00 02-09 14:22 :00 No 40meq 40 mEq, Oral, ONCE, 1 dose, On Thu02/09/23 at 0845, Routine [facility] ipratropium -albuteroL (DUONEB) 0.5 mg-3 mg(2.5 mg base)/3 mL nebulizer solution 3 mL 02-08 16:45: 00 Yes 3mL 3 mL, Inhalation , QIDPRN, Starting on Thu02/08/23 at 1145, Until Discontinu ed, Routine, Wheezing [facility] furosemide (LASIX) injection 40 mg 02-08 13:00: 00 02-12 18:58 :57 No 40mg 40 mg, Slow IV Push, Q12H, First dose (after last modificati on) on Thu02/08/23 at 0800, Until Discontinu ed, Routine [facility] ferrous sulfate tablet 325 mg 02-08 01:00: 00 Yes 325mg 325 mg, Oral, BID, First dose on Thu02/07/23 at 2000, Until Discontinu ed, Routine [facility] QUEtiapine (SEROQUEL) tablet 25 mg 02-08 01:00: 00 02-10 12:21 :47 No 25mg 25 mg, Oral, BID, First dose on Thu02/07/23 at 2000, Until Discontinu ed, Routine [facility] magnesium sulfate in water 4 gram/50 mL (8 %) IV Piggyback 4 g 02-07 06:30: 00 02-07 07:41 :00 No 4g 4 g, IV Piggyback, at 25 mL/hr Administer over 120 Minutes, ONCE, 1 dose, On Thu02/07/23 at 0130, Routine [facility] furosemide (LASIX) injection 40 mg 02-06 23:00: 00 02-07 18:30 :47 No 40mg 40 mg, Slow IV Push, Q6H, First dose on Thu02/06/23 at 1800, Until Discontinu ed, Routine [facility] cefTRIAXone (ROCEPHIN) 1,000 mg in NaCl 0.9% [...] y
Durat ion of therapy: 72 hours [facility] dexMEDEtomi dine 400 mcg in 0.9 [...] at maximum allowed dose, contact prescriber .
[facility] furosemide (LASIX) injection 40 mg 02-06 17:15: 00 02-06 17:33 :00 No 40mg 40 mg, Slow IV Push, ONCE, 1 dose, On Thu02/06/23 at 1215, Routine [facility] NaCl 0.9% (NS) injection 10 mL 02-06 16:50: 25 Yes 10mL 10 mL, Slow IV Push, PRN, Starting on Thu02/06/23 at 1150, Until Discontinu ed, Routine, line maintenanc e [facility] lidocaine 1% (PF) (XYLOCAINE) injection 5 mL 02-06 16:50: 25 Yes 5mL 5 mL, Subcutaneo us, PRN, Starting on Thu02/06/23 at 1150, Until Discontinu ed, Routine, Local anesthesia [facility] ipratropium -albuteroL (DUONEB) 0.5 mg-3 mg(2.5 mg base)/3 mL nebulizer solution 3 mL 02-06 13:00: 00 02-08 16:40 :55 No 3mL 3 mL, Inhalation , QID, First dose on Thu02/06/23 at 0800, Until Discontinu ed, Routine [facility] morpHINE (2 mg/mL) injection 1 mg 02-06 12:45: 00 02-06 13:10 :00 No 1mg 1 mg, Slow IV Push, ONCE, 1 dose, On Thu02/06/23 at 0745, Routine [facility] methylPREDN ISolone sod succ (SOLU-MEDRO L (PF)) injection 40 mg 02-06 11:00: 00 02-08 16:41 :45 No 40mg 40 mg, Intravenou s, Q8H, First dose on Thu02/06/23 at 0600, Until Discontinu ed, 1 mL [facility] Insulin Detemir (LEVEMIR FLEXPEN) 100 unit/mL (3 mL) injection 02-06 10:07: 45 Yes inject under the skin. [facility] furosemide (LASIX) injection 40 mg 02-06 08:45: 00 02-06 07:56 :00 No 40mg 40 mg, Slow IV Push, ONCE, 1 dose, On Thu02/06/23 at 0345, Routine [facility] methylpredn isolone sod succ (SOLU-MEDRO L) injection 125 mg 02-06 07:30: 00 02-06 06:48 :00 No 125mg 125 mg, Intravenou s, ONCE, 1 dose, On Thu02/06/23 at 0230, 2 mL [facility] ipratropium -albuteroL (DUONEB) 0.5 mg-3 mg(2.5 mg base)/3 mL nebulizer solution 3 mL 02-06 06:20: 20 02-06 06:37 :57 No 3mL 3 mL, Inhalation , QIDPRN, Starting on Thu02/06/23 at 0120, Until Thu02/06/23 at 0137, Routine, Wheezing, Shortness of Breath [facility] LORazepam (ATIVAN) injection 1 mg 02-06 06:15: 00 02-06 05:29 :00 No 1mg 1 mg, Slow IV Push, ONCE, 1 dose, On Thu02/06/23 at 0115, Routine [facility] traZODone (DESYREL) tablet 50 mg 02-06 05:00: 00 02-06 04:05 :00 No 50mg 50 mg, Oral, ONCE, 1 dose, On Thu02/06/23 at 0000, Routine [facility] ARIPiprazol e (ABILIFY) 1 mg/mL oral solution 2 mg 02-06 02:00: 00 02-06 13:35 :14 No 2mg 2 mg, Oral, DAILY, First dose on Thu02/05/23 at 2100, Until Discontinu ed, Routine [facility] zinc oxide-cod liver oil (DESITIN) 40 % paste 02-05 10:41: 49 Yes Topical, PRN, Starting on Thu02/05/23 at 0541, Until Discontinu ed, Routine, Diaper rash [facility] bisacodyL (DULCOLAX) tablet 10 mg 02-04 21:30: 00 02-04 22:22 :00 No 10mg 10 mg, Oral, PRE-PROCED URE ONCE, 1 dose, Starting on Thu02/04/23 at 1630, Until Discontinu ed, Routine, Bowel Prep, Colonoscop y [facility] peg-electro lyte soln (GOLYTELY) 236-22.74-6 .74 -5.86 gram solution 4,000 mL 02-04 20:21: 22 02-11 22:42 :01 No 4000mL 4,000 mL, Oral, PRN - SEE INSTRUCTIO NS, Starting on Thu02/04/23 at 1521, Until Thu02/11/23 at 1742, Routine, Bowel Prep, colonoscop y [facility] bisacodyL (DULCOLAX) tablet 10 mg 02-04 20:21: 02-04 21:01 :00 No 10mg 10 mg, Oral, PRE-PROCED URE ONCE, 1 dose, Starting on Thu02/04/23 at 1521, Until Thu02/04/23 at 1601, Routine, Bowel Prep, Colonoscop y [facility] phytonadion e (VITAMIN K) 10 mg in NaCl 0.9% (NS) piggyback 02-04 18:00: 00 02-04 18:28 :00 No 10mg IV Piggyback, ONCE, 1 dose, On Thu02/04/23 at 1300, 50 mL [facility] clopidogreL (PLAVIX) 75 mg tablet 75 mg 02-04 16:45: 00 Yes 75mg 75 mg, Oral, DAILY, First dose on Thu02/04/23 at 1145, Until Discontinu ed, SYED [facility] fluticasone propionate 50 mcg/actuati on nasal spray 1 Corea 02-04 15:48: 00 Yes 1{spray } 1 Corea, Nasal, DAILY, First dose on Thu02/04/23 at 1100, Until Discontinu ed, Routine [facility] dexMEDEtomi dine 400 mcg in 0.9 [...] at maximum allowed dose, contact prescriber .
[facility] furosemide (LASIX) injection 40 mg 02-04 02:45: 00 02-04 02:07 :00 No 40mg 40 mg, Slow IV Push, ONCE, 1 dose, On Thu02/03/23 at 2145, Routine [facility] atorvastati n (LIPITOR) tablet 40 mg 02-04 02:00: 00 02-06 13:35 :14 No 40mg 40 mg, Oral, QHS, First dose on Thu02/03/23 at 2100, Until Discontinu ed, Routine [facility] octreotide (SANDOSTATI N) 500 mcg in NaCl 0.9% (NS) 100 mL infusion 02-03 21:45: 00 02-06 21:19 :50 No 50ug/h 50 mcg/hr (10 mL/hr), IV Infusion, CONTINUOUS , Starting on Thu02/03/23 at 1645 [facility] phytonadion e (VITAMIN K) 10 mg in NaCl 0.9% (NS) piggyback 02-03 21:30: 00 02-03 21:50 :00 No 10mg IV Piggyback, ONCE, 1 dose, On Thu02/03/23 at 1630, 50 mL [facility] cefTRIAXone (ROCEPHIN) 1,000 mg in NaCl [...] Urine
D uration of therapy: 72 hours [facility] fluconazole (DIFLUCAN) tablet 50 mg 02-03 18:00: 00 02-03 19:03 :00 No 50mg 50 mg, Oral, ONCE, 1 dose, On Thu02/03/23 at 1300, SYED
Re ason for Anti-Infec tive: Empiric Therapy for Suspected Infection< br>Empiric Therapy Site: Skin / Soft tissue
Duration of therapy: 72 hours [facility] carvediloL (COREG) tablet 6.25 mg 02-03 16:45: 00 Yes 6.25mg 6.25 mg, Oral, BID MEALS, First dose on Thu02/03/23 at 1145, Until Discontinu ed, Routine [facility] fenofibrate micronized (LOFIBRA) capsule 134 mg 02-03 14:00: 00 Yes 134mg 134 mg, Oral, DAILY, First dose on Thu02/03/23 at 0900, Until Discontinu ed [facility] ezetimibe (ZETIA) tablet 10 mg 02-03 14:00: 00 Yes 10mg 10 mg, Oral, DAILY, First dose on Thu02/03/23 at 0900, Until Discontinu ed, Routine [facility] nystatin (NYSTOP) powder 02-03 13:00: 00 Yes Topical, TID, First dose on Thu02/03/23 at 0800, Until Discontinu ed, [facility] pram[facility] (MIRAPEX) tablet 0.125 mg 02-03 13:00: 00 Yes .125mg 0.125 mg, Oral, BID, First dose on Thu02/03/23 at 0800, Until Discontinu ed [facility] pantoprazol e (PROTONIX) injection 40 mg 02-03 13:00: 00 02-09 16:01 :29 No 40mg 40 mg, Slow IV Push, Q12H, First dose on Thu02/03/23 at 0800, Until Discontinu ed [facility] lactated ringers IV infusion 1,000 mL 02-03 08:30: 00 02-03 21:36 :21 No 1000mL at 75 mL/hr, 1,000 mL, IV Infusion, CONTINUOUS , Starting on Thu02/03/23 at 0330, Until Thu02/03/23 at 1636, Routine [facility] Sliding Scale Insulin - Lispro (HumaLOG) 02-03 05:00: 00 02-15 00:55 :31 No Subcutaneo us, Q4H, First dose on Thu02/03/23 at 0000, Until Discontinu ed, Routine [facility] ondansetron (ZOFRAN (PF)) injection 4 mg 02-03 03:44: 25 Yes 4mg 4 mg, Slow IV Push, Q6HPRN, Starting on Thu02/02/23 at 2244, Until Discontinu ed, Routine, Nausea and Vomiting (N/V) [facility] acetaminoph en (TYLENOL) tablet 650 mg 02-03 03:44: 17 Yes 650mg 650 mg, Oral, Q6HPRN, Starting on Thu02/02/23 at 2244, Until Discontinu ed, Routine, Pain (scale 1-3) [facility] traMADoL (ULTRAM) tablet 50 mg 02-03 03:42: 45 02-03 18:03 :31 No 50mg 50 mg, Oral, Q4HPRN, Starting on Thu02/02/23 at 2242, Until Tu02/03/23 at 1303, Routine, Pain (scale 4-6) [facility] furosemide (LASIX) injection 40 mg 02-03 01:45: 00 02-03 01:43 :00 No 40mg 40 mg, IV Push, ONCE, 1 dose, On Thu02/02/23 at 2045, SYED [facility] BIOTIN ORAL 02-02 22:45: 02 Yes 2000mg Take 2,000 mg by mouth daily. [facility] GABAPENTIN ORAL 02-02 22:45: 02 Yes 800mg Take 800 mg by mouth 3 (three) times daily. [facility] metFORMIN (GLUCOPHAGE ) 1,000 mg tablet 02-02 22:45: 02 Yes 1000mg Take 1 tablet by mouth in the morning and 1 tablet in the evening. Take with meals. [facility] potassium chloride (K-DUR) 10 mEq CR tablet 02-02 22:45: 02 Yes 20meq Take 20 mEq by mouth daily. [facility] tolterodine LA (DETROL LA) 4 mg 24 hr capsule 02-02 22:45: 02 Yes 4mg Take 4 mg by mouth daily. [facility] ezetimibe (ZETIA) 10 mg tablet 02-02 22:45: 02 Yes 10mg Take 1 tablet by mouth in the morning. [facility] Fentanyl, Bulk, 100 % Powd 02-02 22:45: 02 Yes [facility] diazePAM 5 mg tablet 02-02 22:45: 02 Yes (Schedule IV Drug) TAKE 1 TABLET BY MOUTH EVERY EVENING [facility] Fenofibrate 150 mg capsule 02-02 22:45: 02 Yes 150mg Take 1 capsule by mouth in the morning. [facility] raloxifene 60 mg tablet 02-02 22:45: 02 Yes 1 tablet [facility] NORepinephr ine 4 mg in 0.9% [...] intravenou s vasopresso r at a time.
[facility] NaCl 0.9% (NS) bolus infusion 1,000 mL 02-02 21:00: 00 02-02 21:30 :00 No 1000mL at 999 mL/hr, 1,000 mL, IV Infusion, ONCE, 1 dose, On Thu02/02/23 at 1600, STAT [facility] LOSARTAN 25MG 02-02 00:00: 00 Yes Surendra White LEVEMIR FLEX 100U/ML PEN 01-12 00:00: 00 Yes Surendraaudrey White ELIQUIS 5MG [...] 1 dose, On Thu11/07/22 at 1330, Routine [facility] BIOTIN ORAL 11-07 14:35: 02 Yes 2000mg Take 2,000 mg by mouth daily. [facility] GABAPENTIN ORAL 11-07 14:35: 02 Yes 800mg Take 800 mg by mouth 3 (three) times daily. [facility] metFORMIN (GLUCOPHAGE ) 1,000 mg tablet 11-07 14:35: 02 Yes 1000mg Take 1 tablet by mouth in the morning and 1 tablet in the evening. Take with meals. [facility] potassium chloride (K-DUR) 10 mEq CR tablet 11-07 14:35: 02 Yes 20meq Take 20 mEq by mouth daily. [facility] tolterodine LA (DETROL LA) 4 mg 24 hr capsule 11-07 14:35: 02 Yes 4mg Take 4 mg by mouth daily. [facility] ezetimibe (ZETIA) 10 mg tablet 11-07 14:35: 02 Yes 10mg Take 1 tablet by mouth in the morning. [facility] Fentanyl, Bulk, 100 % Powd 11-07 14:35: 02 Yes [facility] diazePAM 5 mg tablet 11-07 14:35: 02 Yes (Schedule IV Drug) TAKE 1 TABLET BY MOUTH EVERY EVENING [facility] Fenofibrate 150 mg capsule 11-07 14:35: 02 Yes 1{capsu le} Take 1 capsule by mouth in the morning. [facility] raloxifene 60 mg tablet 11-07 14:35: 02 Yes 1 tablet [facility] carvediloL (COREG) tablet 12.5 mg 11-05 22:00: 00 Yes 12.5mg 12.5 mg, Oral, BID MEALS, First dose (after last modificati on) on Thu11/05/22 at 1700, Until Discontinu ed, Routine [facility] ARIPiprazol e (ABILIFY) tablet 2.5 mg 11-05 02:00: 00 Yes 2.5mg 2.5 mg, Oral, QHS, First dose on Thu11/04/22 at 2100, Until Discontinu ed, Routine [facility] amoxicillin -clavulanat e (AUGMENTIN) 875-125 mg per tablet 1 tablet 11-05 01:00: 00 11-15 00:59 :00 No 1{tbl} 1 tablet, Oral, Q12H, 20 doses, First dose on Thu11/04/22 at 2000, Last dose on Thu11/14/22 at 0800, Routine
Reason for Anti-Infec tive: Documented Infection< br>Documen mars Infection Site: Urine
D uration of Therapy: Other (see Comments) [facility] carvediloL 12.5 mg tablet 11-05 00:00: 00 02-16 00:00 :00 No [id number] 12.5mg Take 1 tablet by mouth in the morning and 1 tablet in the evening. Take with meals. [facility] insulin glargine 100 unit/mL injection 11-04 00:00: 00 Yes [id number] 20U inject 20 Units under the skin every 12 (twelve) hours. [facility] clopidogreL 75 mg tablet 11-04 00:00: 00 05-02 00:00 :00 No [id number] 75mg Take 1 tablet by mouth in the morning. [facility] TAKE 1 TABLET BY MOUTH EVERY 12 HOURS 11-04 00:00: 00 09-29 00:00 :00 Alix White LANTUS 100U/ML VIA 11-04 00:00: 00 09-29 00:00 :00 Alix White HYDROCO/APA P 5-325MG 11-04 00:00: 00 09-29 00:00 :00 Alix White amoxicillin -clavulanat e 875-125 mg per tablet 11-04 00:00: 00 02-16 00:00 :00 No [id number] 1{tbl} Take 1 tablet by mouth every 12 (twelve) hours. [facility] insulin glargine (LANTUS U-100) injection 20 Units 11-02 01:00: 00 Yes 20U 20 Units, Subcutaneo us, Q12H, First dose (after last modificati on) on [facility] 11/01/22 at 1999, Until Discontinu ed, Routine [facility] apixaban (ELIQUIS) tablet 5 mg 11-02 01:00: 00 Yes 5mg 5 mg, Oral, BID, First dose on 11/01/22 at 1999, Until Discontinu ed, Routine
Indicatio ns: Non-Valvul ar Atrial Fibrillati on [facility] HYDROcodone -acetaminop hen (NORCO 5) 5-325 mg tablet 1 tablet 11-01 07:09: 27 Yes [id number] 1{tbl} 1 tablet, Oral, Q6HPRN, Starting on 11/01/22 at 0209, Until Discontinu ed, Routine, Pain (scale 7-10) [facility] insulin glargine 100 unit/mL injection 11-01 06:: 11-01 00:00 :00 No 15U inject 15 Units under the skin every 12 (twelve) hours. [facility] insulin glargine 100 unit/mL injection 11-01:: 11-01 00:00 :00 No 25U inject 25 Units under the skin every evening. [facility] DULoxetine 60 mg capsule 11-01 06:: 11-01 00:00 :00 No 1{capsu le} Take 1 capsule by mouth in the morning. [facility] losartan 50 mg tablet 11-01 06:: 11-01 00:00 :00 No 1{tbl} Take 1 tablet by mouth in the morning. [facility] atorvastati n (LIPITOR) tablet 40 mg 11-01 02:00: 00 Yes 40mg 40 mg, Oral, QHS, First dose on Thu10/31/22 at 2100, Until Discontinu ed, Routine [facility] spironolact one 25 mg tablet 11-01 00:00: 00 Yes [id number] 12.5mg Take 0.5 tablets by mouth in the morning. [facility] LANTUS 100 UNIT/ML VIAL 11-01 00:00: 00 Yes 100 Surendra Ross Christopher insulin glargine 100 unit/mL injection 11-01 00:00: 00 06-08 00:00 :00 No [id number] 15U inject 15 Units under the skin every 12 (twelve) hours. [facility] atorvastati n 40 mg tablet 11-01 00:00: 00 10-25 00:00 :00 No [id number] 40mg Take 1 tablet by mouth at bedtime. [facility] losartan 25 mg tablet 11-01 00:00: 00 10-25 00:00 :00 No [id number] 25mg Take 1 tablet by mouth in the morning. [facility] ELIQUIS 5MG 11-01 00:00: 00 09-29 [...] the evening. Indication s: atrial fibrillati on [facility] aspirin 81 mg chewable tablet 11-01 00:00: 00 02-16 00:00 :00 No [id number] 81mg Take 1 tablet by mouth in the morning. [facility] furosemide 20 mg tablet 11-01 00:00: 00 02-16 00:00 :00 No [id number] 60mg Take 3 tablets by mouth every morning and evening. [facility] HYDROcodone -acetaminop hen 5-325 mg tablet 11-01 00:00: 00 11-09 04:59 :00 No [id number] 1{tbl} Take 1 tablet by mouth every 6 (six) hours as needed for Pain (scale 7-10) for up to 7 days. Indication s: acute pain [facility] carvediloL 25 mg tablet 11-01 00:00: 00 11-05 00:00 :00 No [id number] 25mg Take 1 tablet by mouth in the morning and 1 tablet in the evening. Take with meals. [facility] clopidogreL 75 mg tablet 11-01 00:00: 00 11-04 00:00 :00 No [id number] 75mg Take 1 tablet by mouth in the morning. [facility] HYDROcodone -acetaminop hen (NORCO 5) 5-325 mg tablet 1 tablet 10-31 20:00: 00 10-31 19:00 :00 No [id number] 1{tbl} 1 tablet, Oral, ONCE, 1 dose, On Thu10/31/22 at 1500, Routine [facility] iopamidol (ISOVUE 370-500 mL) injection 10-31 16:47: 17 10-31 16:56 :57 No ONCE INTRA PROCEDURE, Starting on Thu10/31/22 at 1147, Until Thu10/31/22 at 1156, Routine, CV Intraproce dure [facility] nitroglycer in (TRIDIL) 2 mg in 10 mL D5W for Cardiac Cath 10-31 16:26: 26 10-31 16:56 :57 No ONCE INTRA PROCEDURE, Starting on Thu10/31/22 at 1126, Until Thu10/31/22 at 1156, Routine, CV Intraproce dure [facility] adenosine 6 mg/1000 mL INTRACORONA RY injection for GRAZING AIDE 10-31 16:26: 10 10-31 16:56 :57 No ONCE INTRA PROCEDURE, Starting on Thu10/31/22 at 1126, Until Thu10/31/22 at 1156, Routine, CV Intraproce dure [facility] NaCl 0.9% (NS) bolus infusion 10-31 14:55: 44 10-31 14:55 :44 No CONTINUOUS PRN, Starting on Thu10/31/22 at 0955, Until Thu10/31/22 at 0955, STAT, CV Intraproce dure [facility] lidocaine 1% (PF) (XYLOCAINE) injection 10-31 14:28: 19 10-31 16:56 :57 No ONCE INTRA PROCEDURE, Starting on Thu10/31/22 at 0928, Until Thu10/31/22 at 1156, Routine, CV Intraproce dure [facility] clopidogreL (PLAVIX) 300 mg tablet 300 mg 10-30 17:45: 00 10-30 17:06 :00 No [id number] 300mg 300 mg, Oral, ONCE, 1 dose, On Mendy 10/30/22 at 1245, Routine [facility] furosemide (LASIX) tablet 60 mg 10-29 22:00: 00 Yes 60mg 60 mg, Oral, QAM+PM, First dose on Thu10/29/22 at 1700, Until Discontinu ed, Routine [facility] carvediloL (COREG) tablet 25 mg 10-29 22:00: 00 11-05 18:57 :53 No 25mg 25 mg, Oral, BID MEALS, First dose (after last modificati on) on Thu10/29/22 at 1700, Until Discontinu ed, Routine [facility] sulfur hexafluorid e microsphr (LUMASON) injection 5 mL 10-29 15:30: 00 10-29 15:30 :00 No [id number] 5mL 5 mL, Intravenou s, ONCE, 1 dose, On Thu10/29/22 at 1030, Routine
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 approving Restricted medication : ABDIFATAH MURRAY [facility] aspirin chewable tablet 81 mg 10-29 14:00: 00 Yes [id number] 81mg 81 mg, Oral, DAILY, First dose on Thu10/29/22 at 0900, Until Discontinu ed, Routine [facility] magnesium sulfate in water 2 gram/50 mL (4 %) infusion 2 g 10-29 11:00: 00 10-29 11:20 :00 No 2g 2 g, IV Piggyback, Administer over 60 Minutes, ONCE, 1 dose, On Thu10/29/22 at 0600, SYED [facility] iopamidol (ISOVUE 370-500 mL) injection 10-28 17:33: 18 10-28 17:36 :11 No ONCE INTRA PROCEDURE, Starting on Thu10/28/22 at 1233, Until Thu10/28/22 at 1236, Routine, CV Intraproce dure [facility] heparin 1,000 unit/mL injection 10-28 17:13: 56 10-28 17:36 :11 No ONCE INTRA PROCEDURE, Starting on Thu10/28/22 at 1213, Until Thu10/28/22 at 1236, Routine, CV Intraproce dure [facility] nitroglycer in (TRIDIL) 2 mg in 10 mL D5W for Cardiac Cath 10-28 17:13: 10 10-28 17:36 :11 No ONCE INTRA PROCEDURE, Starting on Thu10/28/22 at 1213, Until Thu10/28/22 at 1236, Routine, CV Intraproce dure [facility] lidocaine 1% (PF) (XYLOCAINE) injection 10-28 16:51: 29 10-28 17:36 :11 No ONCE INTRA PROCEDURE, Starting on Thu10/28/22 at 1151, Until Thu10/28/22 at 1236, Routine, CV Intraproce dure [facility] midazolam (VERSED) injection 10-28 16:48: 00 10-28 17:36 :11 No ONCE INTRA PROCEDURE, Starting on Thu10/28/22 at 1148, Until Thu10/28/22 at 1236, Routine, CV Intraproce dure [facility] FENTanyl PF (SUBLIMAZE (PF)) injection 10-28 16:48: 00 10-28 17:36 :11 No ONCE INTRA PROCEDURE, Starting on Thu10/28/22 at 1148, Until Thu10/28/22 at 1236, Routine, CV Intraproce dure [facility] magnesium sulfate in water 2 gram/50 mL (4 %) infusion 2 g 10-28 15:45: 00 10-28 15:55 :00 No 2g 2 g, IV Piggyback, Administer over 60 Minutes, ONCE, 1 dose, On Thu10/28/22 at 1045, Routine [facility] aspirin tablet 325 mg 10-28 14:45: 00 10-28 14:26 :00 No [id number] 325mg 325 mg, Oral, ONCE, 1 dose, On Thu10/28/22 at 0945, Routine [facility] docusate (COLACE) capsule 100 mg 10-28 14:00: 00 Yes 100mg 100 mg, Oral, DAILY, First dose on Thu10/28/22 at 0900, Until Discontinu ed, Routine [facility] acetaminoph en (TYLENOL) tablet 650 mg 10-27 22:13: 38 Yes 650mg 650 mg, Oral, Q6HPRN, Starting on Thu10/27/22 at 1713, Until Discontinu ed, Routine, Pain (scale 1-3), Pain (scale 4-6) [facility] carvediloL (COREG) tablet 12.5 mg 10-27 22:00: 00 10-29 18:18 :44 No 12.5mg 12.5 mg, Oral, BID MEALS, First dose (after last modificati on) on Thu10/27/22 at 1700, Until Discontinu ed, Routine [facility] hydralAZINE (APRESOLINE ) injection 10 mg 10-27 21:45: 59 Yes 10mg 10 mg, Slow IV Push, Q6HPRN, Starting on Thu10/27/22 at 1645, Until Discontinu ed, STAT, SBP >150 [facility] D10W 10 % IV infusion 10-27 18:00: 48 Yes at 20-40 mL/hr, IV Infusion, TITRATE, Starting on Thu10/27/22 at 1300, Until Discontinu ed, Routine [facility] heparin 25,000 Units/250 mL (Premixed Bag) in [...] once therapeuti c levels are reached.<b r> [facility] heparin (1,000 unit/mL, 10 mL vial) 10-27 17:00: 55 10-31 20:21 :55 No 3000U FOR REBOLUSING , Starting on Thu10/27/22 at 1200, Until Thu10/31/22 at 1521, Routine
Dosing based on aPTT testing parameters (refer to continuous heparin drip order)
[facility] nitroglycer in 50 mg in D5W [...] directed by the Heart Failure Faculty.<b r> [facility] KCL (KLOR-CON M20) tablet 40 mEq 10-27 15:45: 00 10-27 15:51 :00 No 40meq 40 mEq, Oral, ONCE, 1 dose, On Thu10/27/22 at 1045, Routine [facility] magnesium sulfate in water 2 gram/50 mL (4 %) infusion 2 g 10-27 15:30: 00 10-27 16:51 :00 No 2g 2 g, IV Piggyback, Administer over 60 Minutes, ONCE, 1 dose, On Thu10/27/22 at 1030, Routine [facility] pantoprazol e (PROTONIX) EC tablet 40 mg 10-27 14:00: 00 Yes 40mg 40 mg, Oral, DAILY, First dose on Thu10/27/22 at 0900, Until Discontinu ed, Routine [facility] fenofibrate micronized (LOFIBRA) capsule 134 mg 10-27 14:00: 00 Yes 134mg 134 mg, Oral, DAILY, First dose on Thu10/27/22 at 0900, Until Discontinu ed [facility] ezetimibe (ZETIA) tablet 10 mg 10-27 14:00: 00 Yes 10mg 10 mg, Oral, DAILY, First dose on Thu10/27/22 at 0900, Until Discontinu ed, Routine [facility] DULoxetine (CYMBALTA) capsule 60 mg 10-27 14:00: 00 Yes 60mg 60 mg, Oral, DAILY, First dose on Thu10/27/22 at 0900, Until Discontinu ed, Routine [facility] clopidogreL (PLAVIX) 75 mg tablet 75 mg 10-27 14:00: 00 Yes 75mg 75 mg, Oral, DAILY, First dose on Thu10/27/22 at 0900, Until Discontinu ed, Routine [facility] clonazePAM (KLONOPIN) tablet 1 mg 10-27 02:00: 00 Yes 1mg 1 mg, Oral, QHS, First dose on Thu10/26/22 at 2100, Until Discontinu ed, Routine [facility] clonazePAM (KLONOPIN) tablet 1 mg 10-27 02:00: 00 Yes 1mg 1 mg, Oral, QHS, First dose on Thu10/26/22 at 2100, Until Discontinu ed, Routine [facility] losartan (COZAAR) tablet 25 mg 10-27 01:00: 00 Yes 25mg 25 mg, Oral, DAILY, First dose (after last modificati on) on Thu10/26/22 at 2000, Until Discontinu ed, Routine [facility] furosemide (LASIX) injection 40 mg 10-27 01:00: 00 10-29 19:33 :44 No 40mg 40 mg, Slow IV Push, Q12H, First dose on Thu10/26/22 at 2000, Until Discontinu ed, Routine [facility] magnesium sulfate in water 2 gram/50 mL (4 %) infusion 2 g 10-27 00:00: 00 10-27 00:31 :00 No 2g 2 g, IV Piggyback, Administer over 60 Minutes, ONCE, 1 dose, On Thu10/26/22 at 1900, Routine [facility] spironolact one (ALDACTONE) tablet 12.5 mg 10-26 22:00: 00 Yes 12.5mg 12.5 mg, Oral, DAILY, First dose on Thu10/26/22 at 1700, Until Discontinu ed, Routine [facility] enoxaparin (LOVENOX) injection 40 mg 10-26 22:00: 00 10-27 17:02 :38 No 40mg 40 mg, Subcutaneo us, DAILY, First dose on Thu10/26/22 at 1700, Until Discontinu ed, Routine [facility] carvediloL (COREG) tablet 6.25 mg 10-26 22:00: 00 10-27 21:45 :36 No 6.25mg 6.25 mg, Oral, BID MEALS, First dose on Thu10/26/22 at 1700, Until Discontinu ed, Routine [facility] gabapentin (NEURONTIN) capsule 800 mg 10-26 19:00: 00 Yes 800mg 800 mg, Oral, TID, First dose on Thu10/26/22 at 1400, Until Discontinu ed [facility] acetaminoph en (TYLENOL) tablet 650 mg 10-26 18:57: 52 10-28 13:59 :36 No 650mg 650 mg, Oral, Q6HPRN, Starting on Thu10/26/22 at 1357, Until Thu10/28/22 at 0859, Routine, Pain (scale 1-3), Pain (scale 4-6) [facility] Sliding Scale Insulin - Lispro (HumaLOG) 10-26 14:30: 00 Yes Subcutaneo us, TID MEALS+HS, First dose on Thu10/26/22 at 0930, Until Discontinu ed, Routine [facility] insulin glargine (LANTUS U-100) injection 15 Units 10-26 14:30: 00 11-01 21:28 :10 No 15U 15 Units, Subcutaneo us, Q12H, First dose (after last modificati on) on Thu10/26/22 at 0930, Until Discontinu ed, Routine [facility] GABAPENTIN ORAL 10-26 09:09: 56 Yes 800mg Take 800 mg by mouth 3 (three) times daily. [facility] ezetimibe (ZETIA) 10 mg tablet 10-26 09:09: 56 Yes 10mg Take 10 mg by mouth daily. [facility] insulin glargine 100 unit/mL injection 10-26 09:09: 56 Yes 15U inject 15 Units under the skin every 12 (twelve) hours. [facility] DULoxetine 60 mg capsule 10-26 09:09: 56 Yes 1{capsu le} Take 1 capsule by mouth in the morning. [facility] Fenofibrate 150 mg capsule 10-26 09:09: 56 Yes 1{capsu le} Take 1 capsule by mouth in the morning. [facility] losartan 50 mg tablet 10-26 09:09: 56 Yes 1{tbl} Take 1 tablet by mouth in the morning. [facility] BIOTIN ORAL 10-26 09:09: 55 Yes 2000mg Take 2,000 mg by mouth daily. [facility] metFORMIN (GLUCOPHAGE ) 1,000 mg tablet 10-26 09:09: 55 Yes 1000mg Take 1,000 mg by mouth 2 (two) times daily with meals. [facility] potassium chloride (K-DUR) 10 mEq CR tablet 10-26 09:09: 55 Yes 20meq Take 20 mEq by mouth daily. [facility] tolterodine LA (DETROL LA) 4 mg 24 hr capsule 10-26 09:09: 55 Yes 4mg Take 4 mg by mouth daily. [facility] Fentanyl, Bulk, 100 % Powd 10-26 09:09: 55 Yes [facility] insulin glargine 100 unit/mL injection 10-26 09:09: 55 Yes 25U inject 25 Units under the skin every evening. [facility] diazePAM 5 mg tablet 10-26 09:09: 55 Yes (Schedule IV Drug) TAKE 1 TABLET BY MOUTH EVERY EVENING [facility] raloxifene 60 mg tablet 10-26 09:09: 55 Yes 1 tablet [facility] furosemide (LASIX) injection 40 mg 10-26 08:15: 00 10-26 08:05 :00 No 40mg 40 mg, IV Push, ONCE, 1 dose, On 10/26/22 at 0315, SYED [facility] METFORMIN HCL 1,000 MG 10-15 00:00: [...] 10-15 00:00: 00 09-29 00:00 :00 No Yoel White LEVEMIR FLEX 100U/ML PEN 09-15 00:00: 00 09-29 00:00 :00 Alix White spironolact one 25 mg tablet 09-07 00:00: 00 10-08 04:59 :00 No [id number] 12.5mg Take 0.5 tablets by mouth in the morning for 30 days. [facility] BIOTIN ORAL 09-06 19:45: 58 Yes 2000mg Take 2,000 mg by mouth daily. [facility] GABAPENTIN ORAL 09-06 19:45: 58 Yes 800mg Take 800 mg by mouth 3 (three) times daily. [facility] metFORMIN (GLUCOPHAGE ) 1,000 mg tablet 09-06 19:45: 58 Yes 1000mg Take 1,000 mg by mouth 2 (two) times daily with meals. [facility] potassium chloride (K-DUR) 10 mEq CR tablet 09-06 19:45: 58 Yes 20meq Take 20 mEq by mouth daily. [facility] tolterodine LA (DETROL LA) 4 mg 24 hr capsule 09-06 19:45: 58 Yes 4mg Take 4 mg by mouth daily. [facility] ezetimibe (ZETIA) 10 mg tablet 09-06 19:45: 58 Yes 10mg Take 10 mg by mouth daily. [facility] Fentanyl, Bulk, 100 % Powd 09-06 19:45: 58 Yes [facility] insulin glargine 100 unit/mL injection 09-06 19:45: 58 Yes 15U inject 15 Units under the skin every 12 (twelve) hours. [facility] insulin glargine 100 unit/mL injection 09-06 19:45: 58 Yes 25U inject 25 Units under the skin every evening. [facility] diazePAM 5 mg tablet 09-06 19:45: 58 Yes (Schedule IV Drug) TAKE 1 TABLET BY MOUTH EVERY EVENING [facility] DULoxetine 60 mg capsule 09-06 19:45: 58 Yes 1{capsu le} Take 1 capsule by mouth in the morning. [facility] Fenofibrate 150 mg capsule 09-06 19:45: 58 Yes 1{capsu le} Take 1 capsule by mouth in the morning. [facility] losartan 50 mg tablet 09-06 19:45: 58 Yes 1{tbl} Take 1 tablet by mouth in the morning. [facility] raloxifene 60 mg tablet 09-06 19:45: 58 Yes 1 tablet [facility] LORazepam (ATIVAN) injection 0.5 mg 09-06 16:00: 00 09-06 15:24 :00 No .5mg 0.5 mg, Slow IV Push, ONCE, 1 dose, On 09/06/22 at 1100, Routine [facility] furosemide (LASIX) tablet 40 mg 09-06 14:00: 00 Yes 40mg 40 mg, Oral, QAM+PM, First dose (after last modificati on) on 09/06/22 at 0900, Until Discontinu ed, Routine [facility] morpHINE (2 mg/mL) injection 2 mg 09-06 14:00: 00 09-06 13:32 :00 No 2mg 2 mg, Slow IV Push, ONCE, 1 dose, On 09/06/22 at 0900, Routine [facility] FUROSEMIDE 40MG 09-06 00:00: 00 09-29 00:00 :00 No Surendra White SPIRONOLACT 25MG 09-06 00:00: 00 09-29 00:00 :00 No Surendra White DEXAMETHASO N 6MG 09-06 00:00: 00 09-29 00:00 :00 No Surendra White furosemide 40 mg tablet 09-06 00:00: 00 10-07 04:59 :00 No [id number] 40mg Take 1 tablet by mouth every morning and evening for 30 days. [facility] dexAMETHaso ne 6 mg tablet 09-06 00:00: 00 09-12 04:59 :00 No [id number] 6mg Take 1 tablet by mouth every day at 1200 (noon) for 5 days. [facility] sennosides (SENOKOT) tablet 8.6 mg 09-05 20:00: 00 Yes 8.6mg 8.6 mg, Oral, DAILY, First dose on Thu09/05/22 at 1500, Until Discontinu ed, [facility]LAS[facility] 60 mg 09-04 22:00: 00 09-05 19:25 :27 No 60mg 60 mg, Oral, QAM+PM, First dose (after last modificati on) on Thu09/04/22 at 1700, Until Discontinu ed, [facility]ine [facility] spironolact one (ALDACTONE) tablet 12.5 mg 09-04 14:00: 00 Yes 12.5mg 12.5 mg, Oral, DAILY, First dose on Thu09/04/22 at 0900, Until Discontinu ed, Routine [facility] melatonin (MELATIN) tablet 6 mg 09-04 07:00: 00 Yes 6mg 6 mg, Oral, QHS, First dose on Thu09/04/22 at 0200, Until Discontinu ed, Routine [facility] carvediloL (COREG) tablet 6.25 mg 09-03 22:00: 00 Yes 6.25mg 6.25 mg, Oral, BID MEALS, First dose on Thu09/03/22 at 1700, Until Discontinu ed, Routine [facility] sulfur hexafluorid e microsphr (LUMASON) injection 5 mL 09-03 20:30: 00 09-03 20:30 :00 No [id number] 5mL 5 mL, Intravenou s, ONCE, 1 dose, On Thu09/03/22 at 1530, Routine
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 approving Restricted medication : GERRY PETTIT [facility] losartan (COZAAR) tablet 50 mg 09-03 17:45: 00 Yes 50mg 50 mg, Oral, DAILY, First dose on Thu09/03/22 at 1245, Until Discontinu ed, Routine [facility] KCL (KLOR-CON M20) tablet 40 mEq 09-03 15:45: 00 09-03 15:13 :00 No 40meq 40 mEq, Oral, ONCE, 1 dose, On Thu09/03/22 at 1045, Routine [facility] magnesium sulfate in water 2 gram/50 mL (4 %) infusion 2 g 09-03 15:45: 00 09-03 16:13 :00 No 2g 2 g, IV Piggyback, Administer over 60 Minutes, ONCE, 1 dose, On Thu09/03/22 at 1045, Routine [facility] enoxaparin (LOVENOX) injection 40 mg 09-03 14:00: 00 Yes 40mg 40 mg, Subcutaneo us, DAILY, First dose on Thu09/03/22 at 0900, Until Discontinu ed, Routine [facility] insulin glargine (LANTUS U-100) injection 15 Units 09-03 13:00: 00 Yes 15U 15 Units, Subcutaneo us, Q12H, First dose on Thu09/03/22 at 0800, Until Discontinu ed, Routine [facility] Sliding Scale Insulin - Lispro (HumaLOG) + Fsbg Testing 09-03 13:00: 00 Yes Subcutaneo us, TID MEALS+HS, First dose on Thu09/03/22 at 0800, Until Discontinu ed, Routine [facility] furosemide (LASIX) injection 40 mg 09-03 13:00: 00 09-04 15:45 :09 No 40mg 40 mg, Slow IV Push, Q12H, First dose on Thu09/03/22 at 0800, Until Discontinu ed, Routine [facility] LORazepam (ATIVAN) tablet 1 mg 09-03 11:45: 00 09-03 10:53 :00 No 1mg 1 mg, Oral, ONCE, 1 dose, On Thu09/03/22 at 0645, Routine [facility] hydralAZINE (APRESOLINE ) injection 10 mg 09-03 11:00: 00 09-03 10:12 :00 No 10mg 10 mg, Slow IV Push, ONCE, 1 dose, On Thu09/03/22 at 0600, STAT [facility] hydrALAZINE (APRESOLINE ) tablet 10 mg 09-03 10:08: 44 Yes 10mg 10 mg, Oral, Q6HPRN, Starting on Thu09/03/22 at 0508, Until Discontinu ed, Routine, SBP>160, DBP>100 [facility] dexAMETHaso ne (DECADRON) tablet 6 mg 09-03 06:45: 00 09-12 16:59 :00 No 6mg 6 mg, Oral, QNOON, 10 doses, First dose on Thu09/03/22 at 0145, Last dose on Thu09/11/22 at 1200, Routine [facility] magnesium sulfate in D5W 1 gram/100 mL RTU IV Piggyback 1 g 09-03 06:00: 00 09-03 06:52 :00 No 1g 1 g, IV Piggyback, ONCE, 1 dose, On Thu09/03/22 at 0100, Administer over 60 Minutes, 100 mL [facility] glucagon (GLUCAGEN DIAGNOSTIC KIT) injection 1 mg 09-03 05:32: 41 Yes 1mg 1 mg, Intramuscu lar, PRN, Starting on Thu09/03/22 at 0032, Until Discontinu ed, SYED, Blood Glucose < or = 70 mg/dL and patient is NPO, unable to swallow or has mental changes. [facility] dextrose 50 % in water (D50W) injection 25 mL 09-03 05:32: 41 Yes 25mL 25 mL, Slow IV Push, PRN, Starting on Thu09/03/22 at 0032, Until Discontinu ed, SYED, Blood Glucose < or = 70 mg/dL and patient is NPO, unable to swallow or has mental status changes. [facility] albuterol (VENTOLIN) inhaler 1 Puff 09-03 02:57: 58 Yes 1{puff} 1 Puff, Inhalation , Q4HPRN, Starting on Thu09/02/22 at 2157, Until Discontinu ed, Routine, Wheezing, Shortness of Breath [facility] dextrometho rphan-guaif enesin (ROBITUSSIN DM) 10-100 mg/5 mL solution 5 mL 09-03 02:57: 49 Yes 5mL 5 mL, Oral, Q6HPRN, Starting on Thu09/02/22 at 2157, Until Discontinu ed, Routine, Cough [facility] acetaminoph en-codeine (TYLENOL #3) 300-30 mg tablet 1 tablet 09-03 02:56: 30 Yes 1{tbl} 1 tablet, Oral, Q4HPRN, Starting on Thu09/02/22 at 2156, Until Discontinu ed, Routine, Pain (scale 4-6) [facility] ondansetron (ZOFRAN (PF)) injection 4 mg 09-03 02:56: 20 Yes 4mg 4 mg, Slow IV Push, Q6HPRN, Starting on Thu09/02/22 at 2156, Until Discontinu ed, Routine, Nausea and Vomiting (N/V) [facility] acetaminoph en (TYLENOL) tablet 650 mg 09-03 02:53: 36 Yes 650mg 650 mg, Oral, Q6HPRN, Starting on Thu09/02/22 at 2153, Until Discontinu ed, Routine, Pain (scale 1-3) [facility] ARIPIPRAZOL E 5MG 09-03 00:00: 00 09-29 00:00 :00 No 5000 Surendra Vandana White DULOXETINE 30MG DR 09-02 00:00: 00 09-29 00:00 :00 No [id number] Surendra Vandana White CARVEDILOL 12.5MG 09-01 00:00: 00 09-29 00:00 :00 No [id number] Surendra Vandana White POT CHLORIDE 10MEQ ER 08-19 00:00: 00 09-29 00:00 :00 No Surendra Vandana Christopher FENOFIBRATE 134MG 08-19 00:00: 00 09-29 00:00 :00 No [id number] Surendra White TAKE 1 TABLET TWICE A DAY 08-12 00:00: 00 09-29 00:00 :00 No 125 Surendra Vandana White TAKE 1 CAPSULE TWICE DAILY. 08-12 00:00: [...] DAY 08-12 00:00: 00 09-29 00:00 :00 Alix [...] 3- 00:00: 00 09-29 00:00 :00 No Surendra Vandana Christopher once in the morning - 00:00: 00 09-29 00:00 :00 No 40 Surendra Vandana Christopher 1/2 tab daily - 00:00: 00 09-29 00:00 :00 No 5 Surendra Vandana White TAKE 1 TABLET TWICE A DAY 3- 00:00: 00 09-29 00:00 :00 No 125 Surendra F Christopher LEVEMIR FLEX 100U/ML PEN 3-08 00:00: 00 09-29 00:00 :00 No Surendra White CLOBETASOL 0.05% CRE 3-08 00:00: 00 09-29 00:00 :00 No Surendra White METFORMIN 1000MG 3-03 00:00: 00 09-29 00:00 :00 No [id number] Surendra Vandana Christopher FLUOCIN BODY 0.01% OIL 2-06 00:00: 00 09-29 00:00 :00 No Surendra White ARIPIPRAZOL E 5MG 2-02 00:00: 00 09-29 00:00 :00 No 5000 Surendra Vandana Christopher TAKE 1 TABLET TWICE DAILY WITH MEALS 1-31 00:00: 00 09-29 00:00 :00 No 1000 Surendra Vandana Christopher TAKE 1 CAPSULE BY MOUTH EVERY DAY 1-16 00:00: 00 09-29 00:00 :00 No Surendra White FENOFIBRATE 134MG 1-16 00:00: 00 09-29 00:00 :00 No Surendra White CARVEDILOL 12.5MG 1-13 00:00: 00 09-29 00:00 :00 No Surendra White BIOTIN ORAL 1-10 16:16: 41 Yes 2000mg Take 2,000 mg by mouth daily. [facility] GABAPENTIN ORAL 05-27 16:16: 41 Yes 800mg Take 800 mg by mouth 3 (three) times daily. [facility] metFORMIN (GLUCOPHAGE ) 1,000 mg tablet 05-27 16:16: 41 Yes 1000mg Take 1,000 mg by mouth 2 (two) times daily with meals. [facility] potassium chloride (K-DUR) 10 mEq CR tablet 05-27 16:16: 41 Yes 20meq Take 20 mEq by mouth daily. [facility] tolterodine LA (DETROL LA) 4 mg 24 hr capsule 05-27 16:16: 41 Yes 4mg Take 4 mg by mouth daily. [facility] ezetimibe (ZETIA) 10 mg tablet 05-27 16:16: 41 Yes 10mg Take 10 mg by mouth daily. [facility] Fentanyl, Bulk, 100 % Powd 05-27 16:16: 41 Yes [facility] insulin glargine 100 unit/mL injection 05-27 16:16: 41 Yes 15U inject 15 Units under the skin every morning. [facility] insulin glargine 100 unit/mL injection 05-27 16:16: 41 Yes 25U inject 25 Units under the skin every evening. [facility] diazePAM 5 mg tablet 05-27 16:16: 41 Yes (Schedule IV Drug) TAKE 1 TABLET BY MOUTH EVERY EVENING [facility] DULoxetine 60 mg capsule 05-27 16:16: 41 Yes 1{capsu le} Take 1 capsule by mouth in the morning. [facility] Fenofibrate 150 mg capsule 05-27 16:16: 41 Yes 1{capsu le} Take 1 capsule by mouth in the morning. [facility] losartan 50 mg tablet 05-27 16:16: 41 Yes 1{tbl} Take 1 tablet by mouth in the morning. [facility] raloxifene 60 mg tablet 05-27 16:16: 41 Yes 1 tablet [facility] pantoprazol e 40 mg EC tablet 05-23 00:00: 00 Yes 40mg Take 1 tablet by mouth in the morning. [facility] PANTOPRAZOL E 40MG DR 05-23 00:00: 00 09-29 00:00 :00 No Surendra White ARIPIPRAZOL E 5MG 05-19 00:00: 00 09-29 00:00 :00 No Surendra Vandana White DULoxetine 30 mg capsule 2021-05 00:00: 00 Yes 30mg Take 1 capsule by mouth in the morning and 1 capsule in the evening. [facility] LEVEMIR FLEX 100U/ML PEN 2021-05 00:00: [...] 09-29 00:00 :00 No 5 Surendra White METFORMIN 1000MG TAB 2021-05 00:00: 00 09-29 00:00 :00 No 1000 Surendra White TAKE 1 CAPSULE TWICE DAILY. 2021-05 2- 00:00: 00 09-29 00:00 :00 No Surendra White TAKE 1 TABLET TWICE DAILY. 2021-05 00:00: 00 09-29 00:00 :00 No 1000uni t Surendra White EZETIMIBE 10MG TAB 2021-05 00:00: 00 09-29 00:00 :00 No 1000 Surendra White Dose Unknown 2021-05 2 00:00: 00 09-29 00:00 :00 No 1000 Surendra White APPLY TOPICALLY TWICE A DAY TO AFFECTED AREA 2021-05 00:00: 00 09-29 00:00 :00 No 1000 Surendra White Dose Unknown 2021-05 00:00: 00 09-29 00:00 :00 No Surendra White POTASSIUM CHLORIDE ER 10MEQ ER 2021-05 00:00: 00 09-29 00:00 :00 No Surendra White OLANZAPINE 5MG TAB 2021-05 00:00: 00 09-29 00:00 :00 No 1000 Surendra White TAKE 1 TABLET BY MOUTH EVERY DAY 2021-05 00:00: 00 09-29 00:00 :00 No 75 Surendra White TAKE 1 TABLET BY MOUTH TWICE A DAY 2021-05 2 00:00: 00 09-29 00:00 :00 No Surendra White TAKE 1 CAPSULE BY MOUTH EVERY MORNING 2021-05 00:00: 00 09-29 00:00 :00 No 1000 Surendra White CIPROFLOXAC IN HYDROCHLORI 500MG TAB 2021-05 2 00:00: 00 09-29 00:00 :00 No 1000 Surendra White NITROFURANT OIN MACROCRYST 100MG 2022-1 2-13 00:00: 00 09-29 00:00 :00 No 1000 [...] F Christopher ROPINIROLE HCL 0.5MG TAB 2021-05 2- 00:00: 00 09-29 00:00 :00 No 75 Surendra F Christopher Dose Unknown 2021-05 2- 00:00: 00 09-29 00:00 :00 No 1000 Surendra F Christopher Dose Unknown 2021-05 2- 00:00: 00 09-29 00:00 :00 No 1000 Surendra F Christopher TAKE 1 TABLET BY MOUTH EVERY DAY AT NIGHT 2021-05 2- 00:00: 00 09-29 00:00 :00 No 40 Surendra F Christopher LEVEMIR FLEXTOUCH 100U/ML PEN 2021-05 2- 00:00: 00 09-29 00:00 :00 [...] 2021-05 00:00: 00 09-29 00:00 :00 No [id number] Surendra White NITROFURANT OIN MONOHYDRAT 100MG CAP 2021-05 00:00: 00 09-29 00:00 :00 No Surendra White Dose Unknown 2021-05 00:00: 00 09-29 00:00 :00 No 50 Surendra White LEVEMIR FLEX 100U/ML PEN 2021-05 00:00: 00 09-29 00:00 :00 No [id number] Surendra White TAKE 1 CAPSULE BY MOUTH FOUR TIMES A DAY 2021-05 00:00: 00 09-29 00:00 :00 Alix White 40 UNITS QAM, 45 UNITS QPM [...] 2021-05 00:00: 00 09-29 00:00 :00 No [id number] Surendra White TAKE 0.5/HALF TABLETS BY MOUTH AT BEDTIME 2021-05 00:00: 00 No TAKE 1/2 TABLET BY MOUTH AT BEDTIME 2021-05 00:00: 00 09-29 00:00 :00 No 500 Surendra F Christopher TAKE 2 TABLETS BY MOUTH DAILY 2021-05 00:00: 00 No 125 Dose Unknown 2021-05 00:00: 00 09-29 00:00 :00 No 500 Surendra F Christopher TAKE 1 CAPSULE BY MOUTH TWICE A DAY 2021-05 0 00:00: 00 No TAKE 1 CAPSULE BY MOUTH TWICE A DAY 2021-05 025 00:00: 00 09-29 00:00 :00 No Surendra White ARIPIPRAZOL E 5MG 2021-05 0-18 00:00: 00 09-29 00:00 :00 No 5000 Surendra White PANTOPRAZOL E 40MG DR 2021-05 0-17 00:00: 00 09-29 00:00 :00 No [id number] Surendra White TAKE 1 TABLET TWICE A [...] No 1000 Surendra F Christopher GABAPENTIN 800MG 2021-0 9-19 00:00: 00 09-29 00:00 :00 No [id number] Surendra F Christopher MUPIROCIN 2% OIN -16 00:00: 00 09-29 00:00 :00 No 2000 Surendra F Christopher PANTOPRAZOL E SODIUM 40MG DR TAB 0 01-30 00:00: 00 No PANTOPRAZOL E SODIUM 40MG DR TAB 0 15 00:00: 00 09-29 00:00 :00 No Surendra F Christopher DULOXETINE HCL 30MG DR CAP 2021-0 -14 00:00: 00 No DULOXETINE HCL 30MG DR CAP 0 -14 00:00: 00 09-29 00:00 :00 No Surendra F Christopher LOSARTAN POTASSIUM 50MG 2021-0 9-11 00:00: 00 09-29 00:00 :00 No [id number] Surendra F Christopher FUROSEMIDE 20MG 0 - 00:00: 00 09-29 00:00 :00 No [id number] Surendra F Christopher Dose Unknown 0 9- 00:00: 00 No Dose Unknown 0 9-09 00:00: 00 09-29 00:00 :00 No 1000 Surendra F Christopher Dose Unknown 0 9-06 00:00: 00 Yes 1000 Surendra F Christopher TAKE 1 TABLET BY MOUTH EVERY DAY AT NIGHT 2021-0 9-06 00:00: 00 No METFORMIN HYDROCHLORI DE 1000MG 2021-0 9-05 00:00: 00 09-29 00:00 :00 No [id number] Surendra White EZETIMIBE 10MG 2021-0 9-04 00:00: 00 09-29 00:00 :00 No [id number] Surendra F Christopher TAKE 1 CAPSULE BY [...] 2021-0 8-18 00:00: 00 No 134 &lt 2022-0 8-11 00:00: 00 Yes Surendra White &lt [...] &lt 2022-0 8-10 00:00: 00 Yes Surendra Vandana White &lt 2022-0 8-10 00:00: 00 Yes 20 Surendra Vandana White &lt 2022-0 8-10 00:00: 00 Yes 30 Surendra White &lt 2022-0 8-10 00:00: 00 No 5 Dose Unknown [...] 8- 00:00: 00 No 5 Dose Unknown 2021-0 8 00:00: 00 No 2 APPLY 1 GM ON THE SKIN DAILY 2021-0 8- 00:00: 00 No TAKE 0.5/HALF TABLETS BY MOUTH AT BEDTIME 2-0 8- 00:00: 00 No 5 &lt 2022-0 8-10 00:00: 00 No &lt 2022-0 8- 00:00: 00 No 20 &lt 2022-0 8 00:00: 00 No 30 &lt 2022-0 12-24 00:00: 00 Yes 40 Surendra F Christopher Dose Unknown 2021-0 12-24 00:00: 00 Yes 800 Surendra Vandana White APPLY 1 GM ON THE SKIN DAILY 0 12-24 00:00: 00 Yes Surendra F Christopher &lt 2022-0 12-24 00:00: 00 Yes 20 Surendra F Christopher Dose Unknown 2021-0 12-24 00:00: 00 Yes Surendra F Christopher Dose Unknown 2021-0 12-24 00:00: 00 Yes 10 Surendra F Christopher &lt 2022-0 12-24 00:00: 00 Yes Surendra F Christopher &lt 2022-0 12-24 00:00: 00 Yes 30 Surendra Vandana White TAKE 2 TABLETS BY MOUTH EVERY DAY 2021-0 12-24 00:00: 00 Yes 125 Surendra F Christopher Dose Unknown 2021-0 12-24 00:00: 00 Yes 2 Surendra F Christopher &lt 2-0 12-24 00:00: 00 No 40 Dose Unknown 2-0 12-24 00:00: 00 No 800 APPLY 1 GM ON THE SKIN DAILY 0 12-24 00:00: 00 No &lt 2022-0 12-24 00:00: 00 No 20 Dose Unknown 2-0 - 00:00: 00 No Dose Unknown 2021-0 12-24 00:00: 00 No 10 &lt 2022-0 [...] BY MOUTH TWICE A DAY WITH FOOD 2021-0 12-24 00:00: 00 09-29 00:00 :00 No Surendra White Levemir FlexTouch U-100 Insulin 100 unit/mL (3 mL) subcutaneou s pen 2021-0 12-23 00:00: 00 Yes (3 mL) Surendra White ezetimibe 10 mg tablet 2021-0 12-23 00:00: 00 Yes 1mg Surendra White Dose Unknown 0 12-23 00:00: 00 No ezetimibe 10 mg tablet 2-0 12-23 00:00: 00 No 1mg Levemir FlexTouch [...] 2022-0 8- 00:00: 00 Yes 20 Surendra F Christopher &lt 2022-0 8- 00:00: 00 Yes Surendra [...] 00 Yes 2 Surendra F Christopher &lt 2-0 12-12 00:00: 00 Yes 5 Surendra F Christopher &lt 2022-0 12-10 00:00: 00 No &lt 2022-0 12-10 00:00: 00 No 20 &lt 2022-0 12-10 00:00: 00 No &lt 2022-0 12-10 00:00: 00 No 20 &lt 2022-0 12-10 00:00: 00 Yes Surendra F Christopher &lt 2-0 12-10 00:00: 00 Yes 20 Surendra F Christopher PANTOPRAZOL E SODIUM 40MG DR 2021-0 12-06 00:00: 00 05 00:00 :00 No [id number] Surendra F Christopher TAKE 2 TABLETS BY MOUTH EVERY DAY 2021-0 12-04 00:00: 00 No 125 &lt 2022-0 12-04 00:00: 00 No 40 &lt 2022-0 12-04 00:00: 00 No 10 Dose Unknown 2021-0 12-04 00:00: 00 No TAKE 2 TABLETS [...] 11-28 00:00: 00 No 500 Dose Unknown 2022-0 11-28 00:00: 00 No 2 APPLY 1 GM ON THE SKIN DAILY 2021-0 11-28 00:00: 00 No &lt 2022-0 11-28 00:00: 00 No 500 Dose Unknown 2-0 11-28 00:00: 00 No 2 APPLY 1 GM ON THE SKIN DAILY 2021-0 11-28 00:00: 00 No &lt 2022-0 11-28 00:00: 00 Yes 500 Surendraaudrey White Dose Unknown 2021-0 11-28 00:00: 00 Yes 2 Surendra White APPLY [...] 11-22 00:00: 00 No 5 &lt 2022-0 7 00:00: 00 No 40 &lt 2022-0 11-22 [...] 2021-0 - 00:00: 00 Yes 2 Surendra F Christopher &lt 2022-0 11-22 00:00: 00 Yes Surendra F Christopher &lt 2022-0 11-22 00:00: 00 Yes Surendra F Christopher &lt 2022-0 11-22 00:00: 00 Yes 10 Surendra F Christopher Dose Unknown 2021-0 11-22 00:00: 00 Yes 800 Surendra Vandana White Dose Unknown 2-0 11-22 00:00: 00 Yes Surendra White TAKE 0.5/HALF TABLETS BY MOUTH AT BEDTIME 2-0 11-22 00:00: 00 Yes 5 Surendra Vandana Christopher &lt 2022-0 11-21 00:00: 00 No &lt 2022-0 7 00:00: 00 No &lt 2022-0 11-21 00:00: 00 Yes Surendra Ross Christopher &lt 2022-0 7- 00:00: 00 No 2 &lt 2022-0 7- 00:00: 00 No 2 &lt 2022-0 7- 00:00: 00 Yes 2 Surendra White aripiprazol e 5 mg tablet 2021-0 - 00:00: 00 No 5mg &lt 2022-0 7- 00:00: 00 No TAKE 1 TABLET BY MOUTH THREE TIMES A DAY 2-0 7- 00:00: 00 No &lt 2022-0 7- 00:00: 00 No aripiprazol e 5 mg tablet 2-0 7- 00:00: 00 No 5mg &lt 2022-0 7- 00:00: 00 No TAKE 1 TABLET BY MOUTH THREE TIMES A DAY 2022-0 7- 00:00: 00 No &lt 2022-0 7- 00:00: 00 No aripiprazol e 5 mg tablet 2-0 7- 00:00: 00 Yes 5mg Surendra White &lt 2022-0 7- 00:00: 00 Yes Surendra White TAKE 1 TABLET BY MOUTH THREE TIMES A DAY 0 11-15 00:00: 00 Yes Surendra White &lt 0 11-15 00:00: 00 Yes Surendra White Abilify 2 mg tablet 11-14 00:00: 00 No 15mg duloxetine 30 mg capsule,del ayed release 0 11-14 00:00: 00 No 1mg &lt 0 11-14 00:00: 00 No Abilify 2 mg tablet 11-14 00:00: 00 No 15mg duloxetine 30 [...] 11-06 00:00: 00 09-29 00:00 :00 No [id number] Surendra White metformin 1,000 mg tablet 11-02 [...] White CARVEDILOL 12.5MG 0 10-31 00:00: 00 -15 00:00 :00 No [id number] Surendra White &lt 2021-0 10-28 00:00: 00 No &lt 2022-0 10-28 00:00: 00 No &lt 2-0 10-28 [...] 15mg duloxetine 30 mg capsule,del ayed release 2021-0 10-17 00:00: 00 No 1mg &lt 2022-0 10-17 00:00: 00 No TAKE 1 TABLET BY MOUTH EVERY DAY 2-0 6- 00:00: 00 No Abilify 2 mg tablet 2021-0 6- 00:00: 00 Yes 15mg Surendra White duloxetine 30 mg capsule,del ayed release 2021-0 6- 00:00: 00 Yes 1mg Surendra White &lt 2-0 6- 00:00: 00 Yes Surendra White TAKE 1 TABLET BY MOUTH EVERY DAY 2021-0 - 00:00: 00 Yes Surendra White &lt 2-0 6- 00:00: 00 No &lt 2022-0 6- 00:00: 00 No &lt 2022-0 6- 00:00: 00 Yes Surendra White Abilify 2 mg tablet 2021-0 5-17 00:00: 00 No 15mg duloxetine 30 mg capsule,del ayed release 2021-0 5-17 00:00: 00 No 1mg Abilify 2 mg tablet 2021-0 5-17 00:00: 00 No 15mg duloxetine 30 mg capsule,del ayed release 0 5-17 00:00: 00 No 1mg Abilify 2 mg tablet 2021-0 5-17 00:00: 00 Yes 15mg Surendra White [...] Surendra White ezetimibe 10 mg tablet 2021-0 -26 00:00: 00 No 1mg carvedilol 12.5 mg tablet 2021-0 4- 00:00: 00 No 2mg Aricept 5 mg [...] White cefuroxime axetil 500 mg tablet 0 4- 00:00: 00 Yes 1mg Surendra White aripiprazol [...] ER 10 mEq capsule,ext ended release 0 - 00:00: 00 Yes 1mEq Surendra White Dose Unknown 2021-0 4-01 00:00: 00 No Dose Unknown 2-0 4-01 00:00: 00 No Dose Unknown 2022-0 4-01 00:00: 00 No Dose Unknown 2-0 4-01 00:00: 00 No Dose Unknown 2022-0 4-01 00:00: 00 Yes Surendra White Dose Unknown 2021-0 4-01 00:00: 00 Yes Surendra White Dose [...] 00:00: 00 4- 05-15 00:00 :00 No [id number] Surendra White Dose Unknown 2022-0 3-17 00:00: [...] Abilify 2 mg tablet 2-24 00:00: 00 Yes 1mg Surendra White TAKE 1 TABLET BY MOUTH EVERY DAY 2-24 00:00: 00 09-29 00:00 :00 No Surendra White Macrobid 100 mg capsule 2-03 00:00: 00 No 1mg Macrobid 100 mg capsule 2-03 00:00: 00 No 1mg Macrobid 100 mg capsule 2-03 00:00: 00 Yes 1mg Surendra White metformin 1,000 mg tablet 1- 00:00: 00 No 1mg metformin 1,000 mg tablet 0 1- 00:00: 00 No 1mg metformin 1,000 mg tablet 0 1-26 00:00: 00 Yes 1mg Surendra White Abilify 2 mg tablet 1-13 00:00: 00 No 1mg Dose Unknown 1- 00:00: 00 No Abilify 2 mg tablet 1- 00:00: 00 No 1mg Dose Unknown 1- 00:00: 00 No Abilify 2 mg tablet 1- 00:00: 00 Yes 1mg Surendra White Dose Unknown 1- 00:00: 00 Yes Surendra White ezetimibe 10 mg tablet 2020-05 2- 00:00: 00 No 1mg carvedilol 12.5 mg tablet 2020-05 2- 00:00: 00 No 2mg furosemide 20 mg tablet 2020-05 2 00:00: 00 No 1mg Dose Unknown 2020-05 2- 00:00: 00 No ezetimibe 10 mg tablet 2020-05 2 00:00: 00 No 1mg carvedilol 12.5 mg tablet 2020-05 00:00: 00 No 2mg furosemide 20 mg tablet 2020-05 00:00: 00 No 1mg Dose Unknown 2020-05 00:00: 00 No ezetimibe 10 mg tablet 2020-05 00:00: 00 Yes 1mg Surendra White carvedilol [...] 2 mg tablet 2020-05 2 00:00: 00 Yes 1mg Surendra White duloxetine 30 mg capsule,del ayed release 2020-05 2 00:00: 00 Yes 1mg Surendra White Cipro 500 mg tablet 2020-05 1- 00:00: 00 No 1mg Cipro 500 mg tablet 2020-05-24 00:00: 00 No 1mg Cipro 500 mg tablet 2020-05 1-24 00:00: 00 Yes 1mg Surendra White Dose Unknown 2020-05 00:00: 00 No duloxetine 30 mg capsule,del [...] 5 mg tablet 2020-05 0 00:00: 00 Yes 1mg Surendra White duloxetine [...] unit/gram topical powder 2020-05 0 00:00: 00 No 1unit/g milad duloxetine 30 mg capsule,del ayed release 2020-05 0 00:00: 00 No 1mg nystatin 100,000 unit/gram [...] tablet 01-01 00:00: 00 Yes 2mg Surendra Wihte ezetimibe 10 mg tablet 01-01 00:00: 00 [...] No 2mg fenofibrate micronized 134 mg capsule 0 5-21 00:00: 00 No 1mg carvedilol 12.5 [...] 00 No 1mg losartan 50 mg tablet - 00:00: 00 Yes 1mg Surendra White metformin 1,000 mg tablet 2019-05 00:00: 00 No 1mg metformin 1,000 mg tablet 2019-05 00:00: 00 No 1mg metformin 1,000 mg tablet 2019-05 00:00: 00 Yes 1mg Surendra White gabapentin 800 mg tablet 2019-05 00:00: 00 [...] No 1mg Macrodantin 100 mg capsule 2019-05 007 00:00: 00 No 1mg Macrodantin 100 mg capsule 2019-05 007 00:00: 00 Yes 1mg Surendra White gabapentin [...] 1mg Surendra White ezetimibe 10 mg tablet 2- 00:00: 00 No 1mg clopidogrel 75 mg [...] 1 TABLET BY MOUTH EVERY 12 HOURS [facility] ARIPIPRAZOL E 2 mg tablet 2017-05 00:00: 00 Yes TAKE 1 TABLET BY MOUTH EVERY DAY [facility] clonazePAM 1 mg tablet 02-05 00:00: 00 06-08 00:00 :00 No 1mg Take 1 tablet by mouth at bedtime. [facility] BIOTIN ORAL 02-02 16:07: 23 Yes 2000mg Take 2,000 mg by mouth daily. [facility] GABAPENTIN ORAL 02-02 16:07: 23 Yes 800mg Take 800 mg by mouth 3 (three) times daily. [facility] metFORMIN (GLUCOPHAGE ) 1,000 mg tablet 02-02 16:07: 23 Yes 1000mg Take 1,000 mg by mouth 2 (two) times daily with meals. [facility] potassium chloride (K-DUR) 10 mEq CR tablet 02-02 16:07: 23 Yes 20meq Take 20 mEq by mouth daily. [facility] tolterodine LA (DETROL LA) 4 mg 24 hr capsule 02-02 16:07: 23 Yes 4mg Take 4 mg by mouth daily. [facility] ezetimibe (ZETIA) 10 mg tablet 02-02 16:07: 23 Yes 10mg Take 10 mg by mouth daily. [facility] Fentanyl, Bulk, 100 % Powd 02-02 16:07: 23 Yes [facility] insulin glargine (LANTUS) 100 unit/mL injection 02-02 16:07: 23 Yes 15U inject 15 Units under the skin every morning. [facility] insulin glargine (LANTUS) 100 unit/mL injection 02-02 16:07: 23 Yes 25U inject 25 Units under the skin every evening. [facility] rOPINIRole 0.5 mg tablet 02-02 00:00: 00 Yes .5mg Take 1 tablet by mouth at bedtime. [facility] diphenoxyla te-atropine (LOMOTIL) 2.5-0.025 mg per tablet 2016-05 005 00:00: 00 06-08 00:00 :00 No 1{tbl} Take 1 tablet by mouth every 6 (six) hours as needed (diarrhea) . [facility] ipratropium -albuterol 0.5 mg-3 mg(2.5 mg base)/3 mL nebulizer solution 2016-05 002 00:00: 00 Yes 3mL Inhale 3 mL every 4 (four) hours as needed for Wheezing. [facility] acetaminoph en-codeine (TYLENOL #3) 300-30 mg tablet 6-07 00:00: 00 10-21 00:00 :00 No 1{tbl} Take 1 tablet by mouth every 4 (four) hours as needed for Pain (scale 7-10). [facility] traMADOL (ULTRAM) 50 mg tablet 28 00:00: 00 06-08 00:00 :00 No 50mg Take 1 tablet by mouth every 4 (four) hours as needed for Pain (scale 4-6). [facility] carvediloL 6.25 mg tablet 4-09 00:00: 00 03-23 00:00 :00 No 6.25mg Take 1 tablet by mouth in the morning and 1 tablet in the evening. Take with meals. [facility] furosemide (LASIX) 20 mg tablet 3-15 00:00: 00 09-06 00:00 :00 No 20mg Take 20 mg by mouth daily. [facility] ACCU-CHEK NYA PLUS TEST STRP strip 3-12 00:00: 00 06-08 00:00 :00 No [facility] clopidogrel (PLAVIX) 75 mg tablet 2-08 00:00: 00 11-01 00:00 :00 No 75mg Take 75 mg by mouth daily. [facility] Immunizations Ordered Immunization Name Filled Immunization [...] White Influenza High Dose 2017-02-16 00:00:00 Completed [facility] Influenza High Dose 2017-02-16 00:00:00 Completed [facility] Influenza, High-Dose, Trivalent, PF (FLUZONE) 2017-02-16 00:00:00 Completed [facility] Influenza High Dose 2017-02-16 00:00:00 Completed [facility] Influenza High Dose 2017-02-16 00:00:00 Completed [facility] Influenza High Dose 2017-02-16 00:00:00 Completed [facility] Influenza High Dose 2017-02-16 00:00:00 Completed [facility] Influenza High Dose 2017-02-16 00:00:00 Completed [facility] Influenza High Dose 2017-02-16 00:00:00 Completed [facility] Influenza High Dose 2017-02-16 00:00:00 Completed [facility] Influenza High Dose 2017-02-16 00:00:00 Completed [facility] Influenza High Dose 2017-02-16 00:00:00 Completed [facility] Influenza High Dose 2017-02-16 00:00:00 Completed [facility] TD, NOS 2016-11-27 00:00:00 Completed [facility] TD, NOS 2016-11-27 00:00:00 Completed [facility] TD, NOS 2016-11-27 00:00:00 Completed [facility] Td 2016-11-27 00:00:00 Completed [facility] TD, NOS 2016-11-27 00:00:00 Completed [facility] TD, NOS 2016-11-27 00:00:00 Completed [facility] TD, NOS 2016-11-27 00:00:00 Completed [facility] TD, NOS 2016-11-27 00:00:00 Completed [facility] TD, NOS 2016-11-27 00:00:00 Completed [facility] TD, NOS 2016-11-27 00:00:00 Completed [facility] TD, NOS 2016-11-27 00:00:00 Completed [facility] TD, NOS 2016-11-27 00:00:00 Completed [facility] TD, NOS 2016-11-27 00:00:00 Completed [facility] Pneumococcal conjugate P 2007-05-18 00:00:00 Completed Pneumococcal conjugate P 2007-05-18 00:00:00 Completed Pneumococcal conjugate P 2007-05-18 00:00:00 Completed Pneumococcal conjugate P 2007-05-18 00:00:00 Completed Pneumococcal conjugate P Pneumococcal conjugate P 2007-05-18 00:00:00 Completed Surendra White TD, NOS Unknown Completed [facility] Influenza High Dose Unknown Completed [facility] TD, NOS Unknown Completed [facility] Influenza High Dose Unknown Completed [facility] TD, NOS Unknown Completed [facility] Influenza High Dose Unknown Completed [facility] TD, NOS Unknown Completed [facility] Influenza High Dose Unknown Completed [facility] TD, NOS Unknown Completed [facility] Influenza High Dose Unknown Completed [facility] TD, NOS Unknown Completed [facility] Influenza High Dose Unknown Completed [facility] TD, NOS Unknown Completed [facility] Influenza High Dose Unknown Completed [facility] TD, NOS Unknown Completed [facility] Influenza High Dose Unknown Completed [facility] TD, NOS Unknown Completed [facility] Influenza High Dose Unknown Completed [facility] TD, NOS Unknown Completed [facility] Influenza High Dose Unknown Completed [facility] TD, NOS Unknown Completed [facility] Influenza High Dose Unknown Completed [facility] TD, NOS Unknown Completed [facility] Influenza High Dose Unknown Completed [facility] TD, NOS Unknown Completed [facility] Influenza High Dose Unknown Completed [facility] TD, NOS Unknown Completed [facility] Influenza High Dose Unknown Completed [facility] TD, NOS Unknown Completed [facility] Influenza High Dose Unknown Completed [facility] TD, NOS Unknown Completed [facility] Influenza High Dose Unknown Completed [facility] TD, NOS Unknown Completed [facility] Influenza High Dose Unknown Completed [facility] TD, NOS Unknown Completed [facility] Influenza High Dose Unknown Completed [facility] TD, NOS Unknown Completed [facility] Influenza High Dose Unknown Completed [facility] TD, NOS Unknown Completed [facility] Influenza High Dose Unknown Completed [facility] TD, NOS Unknown Completed [facility] Influenza High Dose Unknown Completed [facility] TD, NOS Unknown Completed [facility] Influenza High Dose Unknown Completed [facility] TD, NOS Unknown Completed [facility] Influenza High Dose Unknown Completed [facility] Vital Signs Vital Name Observation Time Observation Value Comments S ource Systolic blood pressure 2024-06-08 21:32:00 114 mm[Hg] [facility] Diastolic blood pressure 2024-06-08 21:32:00 57 mm[Hg] [facility] Heart rate 2024-06-08 21:32:00 90 /[facility] 2024-06-08 21:32:00 36.39 [facility] Respiratory rate 2024-06-08 21:32:00 15 /min [facility] Oxygen saturation in Arterial blood by Pulse oximetry 2024-06-08 21:32:00 91 /min [facility] Body weight 2024-06-08 09:39:00 83 kg [facility] BMI 2024-06-08 09:39:00 32.41 kg/m2 [facility] Body height 2024-05-25 06:27:00 160 cm [facility] Systolic blood pressure 2024-03-10 17:55:00 135 mm[Hg] [facility] Diastolic blood pressure 2024-03-10 17:55:00 62 mm[Hg] [facility] Heart rate 2024-03-10 17:55:00 75 /min [facility] Oxygen saturation in Arterial blood by Pulse oximetry 2024-03-10 17:55:00 92 /min [facility] Respiratory rate 2024-03-10 17:45:00 16 /min [facility] Body temperature 2024-03-10 13:17:00 36.56 [facility] Body height 2024-03-10 13:17:00 160 cm [facility] Body weight 2024-03-10 13:17:00 83.462 kg [facility] BMI 2024-03-10 13:17:00 32.59 kg/m2 [facility] Systolic blood pressure 2024-03-10 15:30:00 153 mm[Hg] [facility] Diastolic blood pressure 2024-03-10 15:30:00 66 mm[Hg] [facility] Heart rate 2024-03-10 15:30:00 69 /min [facility] Respiratory rate 2024-03-10 15:30:00 15 /min [facility] Oxygen saturation in Arterial blood by Pulse oximetry 2024-03-10 15:30:00 98 /min [facility] Body temperature 2024-03-10 13:17:00 36.56 [facility] Body height 2024-03-10 13:17:00 160 cm [facility] Body weight 2024-03-10 13:17:00 83.462 kg [facility] BMI 2024-03-10 13:17:00 32.59 kg/m2 [facility] Systolic blood pressure 2024-03-04 16:33:00 127 mm[Hg] [facility] Diastolic blood pressure 2024-03-04 16:33:00 59 mm[Hg] [facility] Heart rate 2024-03-04 16:33:00 62 /min [facility] Respiratory rate 2024-03-04 16:33:00 16 /min [facility] Body height 2024-03-04 16:33:00 160 cm [facility] Body weight 2024-03-04 16:33:00 83.915 kg [facility] BMI 2024-03-04 16:33:00 32.77 kg/m2 [facility] Oxygen saturation in Arterial blood by Pulse oximetry 2024-03-04 16:33:00 93 /min [facility] Systolic blood pressure 2023-12-30 22:00:00 155 mm[Hg] [facility] Diastolic blood pressure 2023-12-30 22:00:00 61 mm[Hg] [facility] Heart rate 2023-12-30 22:00:00 69 /min [facility] Body temperature 2023-12-30 22:00:00 36.83 [facility] Respiratory rate 2023-12-30 22:00:00 17 /min [facility] Oxygen saturation in Arterial blood by Pulse oximetry 2023-12-30 22:00:00 95 /min [facility] Body height 2023-12-30 16:45:00 160 cm [facility] weight 2023-12-30 16:45:00 83.915 kg [facility] BMI 2023-12-30 16:45:00 32.77 kg/m2 [facility] Systolic blood pressure 2023-10-26 21:34:00 127 mm[Hg] [facility] Diastolic blood pressure 2023-10-26 21:34:00 63 mm[Hg] [facility] Heart rate 2023-10-26 21:34:00 89 /min [facility] Body temperature 2023-10-26 21:34:00 36.72 [facility] Respiratory rate 2023-10-26 21:34:00 19 /min [facility] Oxygen saturation in Arterial blood by Pulse oximetry 2023-10-26 21:34:00 95 /min [facility] Body weight 2023-10-26 08:11:00 88.497 kg [facility] BMI 2023-10-26 08:11:00 34.56 kg/m2 [facility] Body height 2023-10-22 07:40:00 160 cm [facility] Systolic blood pressure 2023-07-10 03:02:00 140 mm[Hg] [facility] Diastolic blood pressure 2023-07-10 03:02:00 65 mm[Hg] [facility] Heart rate 2023-07-10 03:02:00 75 /min [facility] Body temperature 2023-07-10 03:02:00 36.5 [facility] Respiratory rate 2023-07-10 03:02:00 15 /min [facility] Oxygen saturation in Arterial blood by Pulse oximetry 2023-07-10 03:02:00 94 /min [facility] Body height 2023-07-10 00:36:00 160 cm [facility] Body weight 2023-07-10 00:36:00 81.647 kg [facility] BMI 2023-07-10 00:36:00 31.89 kg/m2 [facility] Systolic blood pressure 2023 23:38:38 143 mm[Hg] [facility] Diastolic blood pressure 2023 23:38:38 90 mm[Hg] [facility] Heart rate 2023 23:38:38 100 /min [facility] Respiratory rate 2023 23:38:38 24 /min [facility] Oxygen saturation in Arterial blood by Pulse oximetry 2023 23:38:38 96 /min [facility] Body temperature 2023 21:21:55 36.67 [facility] Body height 2023 19:14:00 160 cm [facility] Body weight 2023 19:14:00 81.647 kg [facility] BMI 2023 19:14:00 31.89 kg/m2 [facility] Systolic blood pressure 2023-03-23 19:51:00 116 mm[Hg] [facility] Diastolic blood pressure 2023-03-23 19:51:00 71 mm[Hg] [facility] Heart rate 2023-03-23 19:51:00 92 /min [facility] Body temperature 2023-03-23 19:51:00 36.78 [facility] Body height 2023-03-23 19:51:00 165.1 cm [facility] Body weight 2023-03-23 19:51:00 82.101 kg [facility] BMI 2023-03-23 19:51:00 30.12 kg/m2 [facility] Oxygen saturation in Arterial blood by Pulse oximetry 2023-03-23 19:51:00 93 /min [facility] Systolic blood pressure 2023-02-18 16:30:00 111 mm[Hg] [facility] Diastolic blood pressure 2023-02-18 16:30:00 57 mm[Hg] [facility] Heart rate 2023-02-18 16:30:00 76 /min [facility] Body temperature 2023-02-18 16:30:00 35.94 [facility] Respiratory rate 2023-02-18 16:30:00 18 /min [facility] Oxygen saturation in Arterial blood by Pulse oximetry 2023-02-18 16:30:00 92 /min [facility] Body weight 2023-02-18 08:02:00 80.468 kg [facility] BMI 2023-02-18 08:02:00 28.65 kg/m2 [facility] Body height 2023-02-03 03:35:00 167.6 cm [facility] Systolic blood pressure 2022-11-07 16:42:00 106 mm[Hg] [facility] Diastolic blood pressure 2022-11-07 16:42:00 54 mm[Hg] [facility] Heart rate 2022-11-07 16:42:00 80 /min [facility] Body temperature 2022-11-07 16:42:00 36.44 [facility] Respiratory rate 2022-11-07 16:42:00 20 /min [facility] Oxygen saturation in Arterial blood by Pulse oximetry 2022-11-07 16:42:00 94 /min [facility] Body height 2022-10-26 07:45:00 167.6 cm [facility] Body weight 2022-10-26 07:45:00 81.647 kg [facility] BMI 2022-10-26 07:45:00 29.05 kg/m2 [facility] Systolic blood pressure 2022-10-31 12:26:00 125 mm[Hg] [facility] Diastolic blood pressure 2022-10-31 12:26:00 55 mm[Hg] [facility] Heart rate 2022-10-31 12:26:00 68 /min [facility] Body temperature 2022-10-31 12:26:00 36.56 [facility] Respiratory rate 2022-10-31 12:26:00 17 /min [facility] Oxygen saturation in Arterial blood by Pulse oximetry 2022-10-31 12:26:00 93 /min [facility] Body height 2022-10-26 07:45:00 167.6 cm [facility] Body weight 2022-10-26 07:45:00 81.647 kg [facility] BMI 2022-10-26 07:45:00 29.05 kg/m2 [facility] Systolic blood pressure 2022-10-28 18:30:00 120 mm[Hg] [facility] Diastolic blood pressure 2022-10-28 18:30:00 58 mm[Hg] [facility] Heart rate 2022-10-28 18:30:00 64 /min [facility] Respiratory rate 2022-10-28 18:30:00 17 /min [facility] Oxygen saturation in Arterial blood by Pulse oximetry 2022-10-28 18:30:00 94 /min [facility] Body temperature 2022-10-28 13:00:00 36.39 [facility] Body height 2022-10-26 07:45:00 167.6 cm [facility] Body weight 2022-10-26 07:45:00 81.647 kg [facility] BMI 2022-10-26 07:45:00 29.05 kg/m2 [facility] Systolic blood pressure 2022-09-06 20:21:00 130 mm[Hg] [facility] Diastolic blood pressure 2022-09-06 20:21:00 74 mm[Hg] [facility] Heart rate 2022-09-06 20:21:00 88 /min [facility] Body temperature 2022-09-06 20:21:00 36.78 Gloria [facility] Respiratory rate 2022-09-06 20:21:00 18 /min [facility] Oxygen saturation in Arterial blood by Pulse oximetry 2022-09-06 20:21:00 98 /min [facility] Body height 2022-09-03 02:32:00 160 cm [facility] Body weight 2022-09-03 02:32:00 85.548 kg [facility] BMI 2022-09-03 02:32:00 33.41 kg/m2 [facility] Systolic blood pressure 2022-05-27 22:12:00 161 mm[Hg] [facility] Diastolic blood pressure 2022-05-27 22:12:00 82 mm[Hg] [facility] Heart rate 2022-05-27 22:12:00 85 /min [facility] Body height 2022-05-27 22:12:00 160 cm [facility] Body weight 2022-05-27 22:12:00 86.183 kg [facility] BMI 2022-05-27 22:12:00 33.66 kg/m2 [facility] Oxygen saturation in Arterial blood by Pulse oximetry 2022-05-27 22:12:00 93 /min [facility] Systolic blood pressure 2022-01-31 21:53:00 128 mm[Hg] [facility] Diastolic blood pressure 2022-01-31 21:53:00 62 mm[Hg] [facility] Heart rate 2022-01-31 21:53:00 84 /min [facility] Body temperature 2022-01-31 21:53:00 36.39 Gloria [facility] Respiratory rate 2022-01-31 21:53:00 18 /min [facility] Body height 2022-01-31 21:53:00 167.6 cm [facility] Body weight 2022-01-31 21:53:00 84.851 kg [facility] BMI 2022-01-31 21:53:00 30.19 kg/m2 [facility] Oxygen saturation in Arterial blood by Pulse oximetry 2022-01-31 21:53:00 95 /min [facility] BP Systolic 2024-05-16 14:35:00 121 mm[Hg] Step [...] Systolic blood pressure 2023-02-06 16:48:00 181 mm[Hg] Roberta o [facility] Diastolic blood pressure 2023-02-06 16:48:00 125 mm[Hg] [facility] Heart rate 2023-02-06 16:48:00 100 /min [facility] Respiratory rate 2023-02-06 16:48:00 14 /min [facility] Oxygen saturation in Arterial blood by Pulse oximetry 2023-02-06 16:48:00 95 /min [facility] Body temperature 2023-02-06 16:00:00 36.17 Gloria [facility] Body weight 2023-02-05 09:00:00 96.1 kg [facility] BMI 2023-02-05 09:00:00 34.21 kg/m2 [facility] Body height 2023-02-03 03:35:00 167.6 cm [facility] BP Systolic 2022-12-18 17:04:00 100 mm[Hg] Step hen F Christopher BP Diastolic 2022-12-18 17:04:00 59 mm[Hg] Ignacio phen F Christopher Weight Measured 2022-12-18 17:04:00 Surendra Vandana White Height Measured 2022-12-18 17:04:00 65.05 inches Surendra Vandana Christopher Body Temperature 2022-12-18 17:04:00 97.80 degrees Surendra Vandana Christopher Heart Rate 2022-12-18 17:04:00 74.00 /min Malia en F Christopher Respiratory Rate 2022-12-18 17:04:00 Surendra Vandana White BP Systolic 2022-08-05 15:20:00 154 mm[Hg] Step hen F Christopher BP Diastolic 2022-08-05 15:20:00 80 mm[Hg] Ignacio phen F Christopher Weight Measured 2022-08-05 15:20:00 Surendra Vandana White Height Measured 2022-08-05 15:20:00 65.00 inches Surendra Vandana White Body Temperature 2022-08-05 15:20:00 97.40 degrees Surendra F Christopher Heart Rate 2022-08-05 15:20:00 72.00 /min Malia en F Christopher Respiratory Rate 2022-08-05 15:20:00 Surendra Vandana White BP Systolic 2022-04-03 13:31:00 130 mm[Hg] Step hen F Christopher BP Diastolic 2022-04-03 13:31:00 75 mm[Hg] Ignacio phen F Christopher Weight Measured 2022-04-03 13:31:00 190.21 pounds Surendra F Christopher Height Measured 2022-04-03 13:31:00 65.00 inches Surendra F Christopher Body Temperature 2022-04-03 13:31:00 97.30 degrees Surenrda F Christopher Heart Rate 2022-04-03 13:31:00 69.00 [...] Heart Rate 2020-12-25 17:03:00 86.00 /min Malia en F Christopher Respiratory Rate 2020-12-25 17:03:00 Surendra White BP [...] GLUCOSE (AUTOMATED) 2024-06-08 22:19:00 Rosa M Roman [facility] POCT GLUCOSE (AUTOMATED) 2024-06-08 17:27:00 Rosa M Roman [facility] POCT GLUCOSE (AUTOMATED) 2024-06-08 13:19:00 Rosa M Roman [facility] POCT GLUCOSE (AUTOMATED) 2024-06-08 02:01:00 Rosa M Roman [facility] POCT GLUCOSE (AUTOMATED) 2024-06-07 22:20:00 Rosa M Roman [facility] POCT GLUCOSE (AUTOMATED) 2024-06-07 17:25:00 Rosa M Roman [facility] POCT GLUCOSE (AUTOMATED) 2024-06-07 13:32:00 Rosa M Roman [facility] POCT GLUCOSE (AUTOMATED) 2024-06-07 02:10:00 Rosa M Roman [facility] POCT GLUCOSE (AUTOMATED) 2024-06-06 22:12:00 Rosa M Roman [facility] POCT GLUCOSE (AUTOMATED) 2024-06-06 17:51:00 Rosa M Roman [facility] POCT GLUCOSE (AUTOMATED) 2024-06-06 14:01:00 Rosa M Roman [facility] BASIC METABOLIC PANEL (NA, K, CL, CO2, GLUCOSE, BUN, CREATININE, CA) 2024-06-06 09:32:00 Rc [facility] CBC WITH DIFF 2024-06-06 09:32:00 Rc [facility] POCT GLUCOSE (AUTOMATED) 2024-06-06 03:50:00 Rosa M Roman [facility] POCT GLUCOSE (AUTOMATED) 2024-06-05 22:24:00 Rosa M Roman [facility] POCT GLUCOSE (AUTOMATED) 2024-06-05 17:44:00 Rosa M Roman [facility] POCT GLUCOSE (AUTOMATED) 2024-06-05 13:36:00 Rosa M Roman [facility] PHOSPHORUS 2024-06-05 09:49:00 Rc [facility] MAGNESIUM 2024-06-05 09:49:00 [facility] (NA, K, CL, CO2, GLUCOSE, BUN, CREATININE, CA) 2024-06-05 09:49:00 Rc [facility] CBC WITHOUT DIFF 2024-06-05 09:49:00 [facility] POCT GLUCOSE (AUTOMATED) 2024-06-05 02:10:00 Rosa M Roman [facility] POCT GLUCOSE (AUTOMATED) 2024-06-04 22:24:00 Rosa M Roman [facility] POCT GLUCOSE (AUTOMATED) 2024-06-04 17:27:00 Rosa M Roman [facility] POCT GLUCOSE (AUTOMATED) 2024-06-04 13:39:00 Rosa M Roman [facility] POCT GLUCOSE (AUTOMATED) 2024-06-04 11:19:00 Rosa M Roman ramandeep [facility] PHOSPHORUS 2024-06-04 09:21:00 Angel Luis Rangel [facility] MAGNESIUM 2024-06-04 09:21:00 Angel Luis Rangel [facility] BASIC METABOLIC PANEL (NA, K, CL, CO2, GLUCOSE, BUN, CREATININE, CA) 2024-06-04 09:21:00 Angel Luis Rangel [facility] CBC WITHOUT DIFF 2024-06-04 09:21:00 Angel Luis Rangel [facility] POCT GLUCOSE (AUTOMATED) 2024-06-04 01:59:00 Rosa M Roman [facility] POCT GLUCOSE (AUTOMATED) 2024-06-03 22:21:00 Rosa M Roman [facility] POCT GLUCOSE (AUTOMATED) 2024-06-03 17:31:00 Rosa M Roman [facility] POCT GLUCOSE (AUTOMATED) 2024-06-03 13:38:00 Rosa M Roman [facility] BASIC METABOLIC PANEL (NA, K, CL, CO2, GLUCOSE, BUN, CREATININE, CA) 2024-06-03 10:53:00 Chas German [facility] CBC WITH DIFF 2024-06-03 10:53:[address] [facility] POCT GLUCOSE (AUTOMATED) 2024-06-03 02:13:00 Rosa M Roman [facility] POCT GLUCOSE (AUTOMATED) 2024-06-02 22:19:00 Rosa M Roman [facility] POCT GLUCOSE (AUTOMATED) 2024-06-02 17:15:00 Rosa M Roman [facility] POCT GLUCOSE (AUTOMATED) 2024-06-02 13:41:00 Rosa M Roman [facility] MAGNESIUM 2024-06-02 10:00:00 Chas German [facility] BASIC METABOLIC PANEL (NA, K, CL, CO2, GLUCOSE, BUN, CREATININE, CA) 2024-06-02 10:00:00 Chas German [facility] CBC WITH DIFF 2024-06-02 10:00:[address] [facility] POCT GLUCOSE (AUTOMATED) 2024-06-02 02:29:00 Rosa M Roman [facility] POCT GLUCOSE (AUTOMATED) 2024-06-01 22:39:00 Rosa M Roman [facility] POCT GLUCOSE (AUTOMATED) 2024-06-01 17:32:00 Rosa M Roman [facility] POCT GLUCOSE (AUTOMATED) 2024-06-01 14:13:00 Rosa M Roman [facility] POCT GLUCOSE (AUTOMATED) 2024-06-01 13:41:00 Rosa M Roman [facility] MAGNESIUM 2024-06-01 09:41:[address] [facility] C-REACTIVE PROTEIN 2024-06-01 09:41:00 [facility]OLIC PANEL (NA, K, CL, CO2, GLUCOSE, BUN, CREATININE, CA) 2024-06-01 09:41:00 [facility]FF 2024-06-01 09:41:00 Berto Roman [facility] POCT GLUCOSE (AUTOMATED) 2024-06-01 07:20:00 Ros aM Roman [facility] POCT GLUCOSE (AUTOMATED) 2024-06-01 01:32:00 Rosa M Roman [facility] POCT GLUCOSE (AUTOMATED) 2024-05-31 22:30:00 Rosa M Roman ramandeep [facility] POCT GLUCOSE (AUTOMATED) 2024-05-31 13:43:00 Rosa M Roman [facility] ACUTE CARE ARTERIAL BLOOD GAS 2024-05-31 12:33:00 Angel Luis Rangel [facility] XR CHEST 1 VW 2024-05-31 10:52:51 [facility] 2024-05-31 09:58:[address] [facility] BASIC METABOLIC PANEL (NA, K, CL, CO2, GLUCOSE, BUN, CREATININE, CA) 2024-05-31 09:58:00 [facility]FF 2024-05-31 09:58:00 Berto Roman [facility] POCT GLUCOSE (AUTOMATED) 2024-05-31 02:36:00 Rosa M Roman [facility] POCT GLUCOSE (AUTOMATED) 2024-05-30 22:54:00 Rosa M Roman [facility] POCT GLUCOSE (AUTOMATED) 2024-05-30 21:49:00 Rosa M Roman [facility] POCT GLUCOSE (AUTOMATED) 2024-05-30 17:40:00 Rosa M Roman [facility] POCT GLUCOSE (AUTOMATED) 2024-05-30 13:42:00 Rosa M Roman [facility] MAGNESIUM 2024-05-30 08:29:[address] [facility] COMP. METABOLIC PANEL ([id number]) 2024-05-30 08:29:00 [facility] DIFF 2024-05-30 08:29:00 Berto Roman [facility] N-TERMINAL PRO-BNP 2024-05-30 08:29:00 Berto Roman [facility] POCT GLUCOSE (AUTOMATED) 2024-05-30 01:44:00 Rosa M Roman [facility] POCT GLUCOSE (AUTOMATED) 2024-05-29 22:24:00 Rosa M Roman [facility] POCT GLUCOSE (AUTOMATED) 2024-05-29 17:20:00 oRsa M Roman [facility] POCT GLUCOSE (AUTOMATED) 2024-05-29 13:49:00 Rosa M Roman [facility] XR CHEST 1 VW 2024-05-29 12:31:41 [facility] MAGNESIUM 2024-05-29 09:50:[address] [facility] BASIC METABOLIC PANEL (NA, K, CL, CO2, GLUCOSE, BUN, CREATININE, CA) 2024-05-29 09:50:00 [facility]FF 2024-05-29 09:50:00 [facility] 2024-05-29 02:26:00 Rosa M Roman [facility] POCT GLUCOSE (AUTOMATED) 2024-05-29 00:35:00 Rosa M Roman [facility] POCT GLUCOSE (AUTOMATED) 2024-05-28 23:02:00 Rosa M Roman [facility] POCT GLUCOSE (AUTOMATED) 2024-05-28 21:13:00 Rosa M Roman [facility] POCT GLUCOSE (AUTOMATED) 2024-05-28 17:30:00 Rosa M Roman [facility] POCT GLUCOSE (AUTOMATED) 2024-05-28 13:34:00 Rosa M Roman [facility] BASIC METABOLIC PANEL (NA, K, CL, CO2, GLUCOSE, BUN, CREATININE, CA) 2024-05-28 10:07:00 [facility]FF 2024-05-28 10:07:00 Berto Roman [facility] POCT GLUCOSE (AUTOMATED) 2024-05-28 02:23:00 Rosa M Roman [facility] POCT GLUCOSE (AUTOMATED) 2024-05-27 21:32:00 Rosa M Roman [facility] POCT GLUCOSE (AUTOMATED) 2024-05-27 17:53:00 Rosa M Roman ramandeep [facility] POCT GLUCOSE (AUTOMATED) 2024-05-27 14:07:00 Rosa M Roman [facility] MAGNESIUM 2024-05-27 09:19:00 [facility]IC PANEL (NA, K, CL, CO2, GLUCOSE, BUN, CREATININE, CA) 2024-05-27 09:19:00 [facility] DIFF 2024-05-27 09:19:00 Berto Roman [facility] N-TERMINAL PRO-BNP 2024-05-27 09:19:00 Jessie [facility] POCT GLUCOSE (AUTOMATED) 2024-05-27 02:09:00 Rosa M Roman [facility] HB ECG ROUTINE & RHYTHM STRIP 2024-05-27 00:33:36 Jessie [facility] MRSA / MSSA SCREEN BY CLARIBEL QUINTANILLA 2024-05-27 00:28:00 Berto Roman [facility] POCT GLUCOSE (AUTOMATED) 2024-05-26 22:39:00 Rosa M Roman [facility] POCT GLUCOSE (AUTOMATED) 2024-05-26 21:16:00 Rosa M Roman [facility] POCT GLUCOSE (AUTOMATED) 2024-05-26 17:42:00 Rosa M Roman [facility] POCT GLUCOSE (AUTOMATED) 2024-05-26 13:38:00 Rosa M Roman [facility] SPUTUM CULTURE 2024-05-26 10:21:00 Rc [facility] BASIC METABOLIC PANEL (NA, K, CL, CO2, GLUCOSE, BUN, CREATININE, CA) 2024-05-26 10:13:00 [facility] DIFF 2024-05-26 10:13:00 Jessie [facility] POCT GLUCOSE (AUTOMATED) 2024-05-26 06:08:00 Rosa M Roman [facility] POCT GLUCOSE (AUTOMATED) 2024-05-26 02:51:00 Rosa M Roman [facility] URINE CULTURE 2024-05-25 22:59:00 [facility] 2024-05-25 22:32:00 Rosa M Roman [facility] POCT GLUCOSE (AUTOMATED) 2024-05-25 17:20:00 Rosa M Roman [facility] POCT GLUCOSE (AUTOMATED) 2024-05-25 13:31:00 Rosa M Roman [facility] BASIC METABOLIC PANEL (NA, K, CL, CO2, GLUCOSE, BUN, CREATININE, CA) 2024-05-25 10:21:00 Rc [facility] CBC WITH DIFF 2024-05-25 10:21:00 [facility] GLYCOSYLATED HEMOGLOBIN (A1C) 2024-05-25 10:21:00 [facility] 2024-05-25 10:21:00 Rc [facility] INFLUENZA A/B RSV COVID NAAT 2024-05-25 06:32:00 Rc [facility] LAB ONLY COVID INTERPRETATION 2024-05-25 06:32:00 Rc [facility] CT THORAX WO CONTRAST 2024-05-25 03:31:31 Zachery Sexton [facility] URINALYSIS 2024-05-25 02:24:00 Jewel Sexton [facility] XR CHEST 1 VW 2024-05-25 01:40:36 Jewel Sexton [facility] CT HEAD WO CONTRAST 2024-05-25 01:40:13 Dominguez Sexton [facility] HB ECG ROUTINE & RHYTHM STRIP 2024-05-25 01:11:27 Jewel Sexton [facility] TROPONIN I 2024-05-25 01:07:00 Jewel Sexton [facility] COMP. METABOLIC PANEL ([id number]) 2024-05-25 01:07:00 Jewel Sexton [facility] CBC WITH DIFF 2024-05-25 01:07:00 [facility] 2024-05-25 01:07:00 Darhsan [facility] TED INTRA OP ONLY (GUIDANCE) 2024-03-10 16:35:34 [facility] CATH PROCEDURE LOG 2024-03-10 14:44:24 Doctor Un assigned, [facility] CATH PROCEDURE LOG 2024-03-10 14:44:24 Doctor Un assigned, [facility] ELECTROPHYSIOLOGY PROCEDURE 2024-03-10 14:20:00 [facility] ELECTROPHYSIOLOGY PROCEDURE 2024-03-10 14:20:00 [facility] PREPARE PACKED RBC 2024-03-10 13:46:01 [facility] HB ABO GROUPING 2024-03-10 12:53:00 Gloria Leos ea [facility] HB ABO GROUPING 2024-03-10 12:53:00 Gloria Leos ea [facility] POCT GLUCOSE (AUTOMATED) 2023-12-30 21:30:00 Nita Sexton [facility] POCT GLUCOSE (AUTOMATED) 2023-12-30 20:50:00 Nita Sexton [facility] POCT GLUCOSE (AUTOMATED) 2023-12-30 19:52:00 Nita Sexton [facility] POCT GLUCOSE (AUTOMATED) 2023-12-30 19:05:00 Nita Sexton [facility] AC PANEL 21 + LACTIC ACID 2023-12-30 17:41:00 Jewel Sexton [facility] COMP. METABOLIC PANEL ([id number]) 2023-12-30 17:40:00 [facility] 2023-12-30 17:40:00 Darshan [facility] URINALYSIS 2023-12-30 17:40:00 Darshan Jewel [facility] CRITICAL CARE 2023-12-30 16:44:00 Darshan [facility] POCT GLUCOSE (AUTOMATED) 2023-10-26 21:32:00 Valerie Rangel [facility] POCT GLUCOSE (AUTOMATED) 2023-10-26 16:48:00 Valerie Rangel [facility] POCT GLUCOSE (AUTOMATED) 2023-10-26 12:44:00 Valerie Rangel [facility] MAGNESIUM 2023-10-26 09:01:00 Alexis Rushing [facility] BASIC METABOLIC PANEL (NA, K, CL, CO2, GLUCOSE, BUN, CREATININE, CA) 2023-10-26 09:01:00 Alexis Rushing [facility] CBC WITH DIFF 2023-10-26 09:01:[address] [facility] POCT GLUCOSE (AUTOMATED) 2023-10-26 01:02:00 Valerie Rangel [facility] POCT GLUCOSE (AUTOMATED) 2023-10-25 21:26:00 Valerie Rangel [facility] POCT GLUCOSE (AUTOMATED) 2023-10-25 16:45:00 Valerie Rangel [facility] POCT GLUCOSE (AUTOMATED) 2023-10-25 12:50:00 Valerie Rangel [facility] MAGNESIUM 2023-10-25 09:33:00 Alexis Rushing [facility] BASIC METABOLIC PANEL (NA, K, CL, CO2, GLUCOSE, BUN, CREATININE, CA) 2023-10-25 09:33:00 Alexis Rushing [facility] CBC WITH DIFF 2023-10-25 09:33:[address] [facility] PROCALCITONIN 2023-10-25 09:33:[address] [facility] POCT GLUCOSE (AUTOMATED) 2023-10-25 04:45:00 Valerie Rangle [facility] POCT GLUCOSE (AUTOMATED) 2023-10-25 01:42:00 Valerie Rangel [facility] POCT GLUCOSE (AUTOMATED) 2023-10-24 21:20:00 Valerie Rangel [facility] POCT GLUCOSE (AUTOMATED) 2023-10-24 16:32:00 Valerie Rangel [facility] POCT GLUCOSE (AUTOMATED) 2023-10-24 12:34:00 Valerie Rangel [facility] BASIC METABOLIC PANEL (NA, K, CL, CO2, GLUCOSE, BUN, CREATININE, CA) 2023-10-24 09:14:00 Valeria Rushing [facility] CBC WITHOUT DIFF 2023-10-24 09:14:00 Valeria Rushing [facility] POCT GLUCOSE (AUTOMATED) 2023-10-24 05:28:00 Valerie Rangel [facility] POCT GLUCOSE (AUTOMATED) 2023-10-24 01:57:00 Valerie Rangel [facility] POCT GLUCOSE (AUTOMATED) 2023-10-23 21:24:00 Valerie Rangel [facility] POCT GLUCOSE (AUTOMATED) 2023-10-23 18:01:00 Valerie Rangel [facility] POCT GLUCOSE (AUTOMATED) 2023-10-23 16:39:00 Valerie Rangel [facility] POCT GLUCOSE (AUTOMATED) 2023-10-23 12:40:00 Valerie Rangel [facility] XR CHEST 1 VW 2023-10-23 09:16:44 [facility]IC METABOLIC PANEL (NA, K, CL, CO2, GLUCOSE, BUN, CREATININE, CA) 2023-10-23 08:58:00 Angel Luis Rangel [facility] COMP. METABOLIC PANEL ([id number]) 2023-10-23 08:58:00 Angel Luis Rangel [facility] CBC WITH DIFF 2023-10-23 08:58:00 [facility]SE (AUTOMATED) 2023-10-23 01:09:00 Valerie Rangel [facility] POCT GLUCOSE (AUTOMATED) 2023-10-22 21:27:00 Valerie Rangel [facility] MR BRAIN WO CONTRAST 2023-10-22 19:24:00 Ilya Rangel [facility] POCT GLUCOSE (AUTOMATED) 2023-10-22 16:41:00 Valerie Rangel [facility] TRANSTHORACIC ECHO (TTE) COMPLETE 2023-10-22 15:24:00 Angel Luis Rangel [facility] POCT GLUCOSE (AUTOMATED) 2023-10-22 12:28:00 Valerie Rangel [facility] LIPID PANEL ([id number])(TOTAL CHOLESTEROL, TRIGLYCERIDES, HDL) 2023-10-22 08:09:00 Angel Luis Rangel [facility] GLYCOSYLATED HEMOGLOBIN (A1C) 2023-10-22 08:09:00 Angel Luis Rangel [facility] POCT GLUCOSE (AUTOMATED) 2023-10-22 07:27:00 Valerie Rangel [facility] CT HEAD WO CONTRAST 2023-10-22 04:54:50 Vinh Foreman [facility] XR CHEST 1 VW 2023-10-22 03:51:46 Vinh Foreman [facility] HB ECG ROUTINE & RHYTHM STRIP 2023-10-22 03:42:41 Vinh Foreman [facility] CK (CREATINE KINASE) + MB 2023-10-22 03:30:00 Mary Carmen Foreman [facility] LIPASE 2023-10-22 03:30:[address] [facility] TROPONIN I 2023-10-22 03:30:[address] [facility] COMP. METABOLIC PANEL ([id number]) 2023-10-22 03:30:00 Vinh Foreman [facility] CBC WITH DIFF 2023-10-22 03:30:00 Vinh Foreman [facility] URINALYSIS 2023-10-22 03:30:[address] [facility] URINE CULTURE 2023-10-22 03:30:00 Vinh Foreman [facility] REFERRAL- REQUEST/RESPONSE 2023-07-28 05:01:00 Nita boucher Unassigned, [facility] CT ABDOMEN PELVIS W CONTRAST 2023-07-10 02:15:14 Josue Hodges [facility] URINALYSIS 2023-07-10 01:23:00 Josue Hodges [facility] LIPASE 2023-07-10 01:07:00 [facility] COMP. METABOLIC PANEL ([id number]) 2023-07-10 01:07:00 Josue Hodges [facility] CBC WITH DIFF 2023-07-10 01:07:00 Josue Hodges [facility] NOTICE OF PRIVACY PRACTICES 2023-07-10 00:28:49 Doctor Unassigned, [facility] CONSENT/REFUSAL FOR DIAGNOSIS AND TREATMENT 2023-07-10 00:28:23 Doctor Unassigned, [facility] URINALYSIS 2023 21:21:00 Clark Julian [facility] MAGNESIUM 2023 20:57:00 Clark [facility] TROPONIN I 2023 20:57:00 Clark Julian [facility] COMP. METABOLIC PANEL ([id number]) 2023 20:57:00 Clark Julian [facility] CBC WITH DIFF 2023 20:57:00 Clark Julian [facility] RAPID INFLUENZA A/B 2023 20:57:00 Clark Julian [facility] N-TERMINAL PRO-BNP 2023 20:57:00 Clark Julian [facility] COVID-19 (ID NOW RAPID TESTING) 2023 20:57:00 Clark Julian Annemarie [facility] XR CHEST 1 VW 2023 20:55:59 Clark Julian [facility] CONSENT/REFUSAL FOR DIAGNOSIS AND TREATMENT 2023 18:53:10 Doctor Unassigned, [facility] NO SHOW OR MISSED APPOINTMENT POLICY ACKNOWLEDGEMENT 2023-03-23 19:38:23 Doctor Unassigned, [facility] POCT GLUCOSE (AUTOMATED) 2023-02-18 17:04:00 Abu Ather ah, [facility] POCT GLUCOSE (AUTOMATED) 2023-02-18 13:07:00 Abu Ather ah, [facility] POCT GLUCOSE (AUTOMATED) 2023-02-18 02:25:00 Abu Ather ah, [facility] POCT GLUCOSE (AUTOMATED) 2023-02-17 21:57:00 Abu Ather ah, [facility] POCT GLUCOSE (AUTOMATED) 2023-02-17 16:33:00 Abu Ather ah, [facility] POCT GLUCOSE (AUTOMATED) 2023-02-17 12:43:00 Abu Ather ah, [facility] POCT GLUCOSE (AUTOMATED) 2023-02-17 02:02:00 Abu Ather ah, [facility] POCT GLUCOSE (AUTOMATED) 2023-02-16 22:05:00 Abu Ather ah, [facility] POCT GLUCOSE (AUTOMATED) 2023-02-16 16:32:00 Abu Ather ah, [facility] POCT GLUCOSE (AUTOMATED) 2023-02-16 14:05:00 Abu Ather ah, [facility] POCT GLUCOSE (AUTOMATED) 2023-02-16 11:28:00 Abu Ather ah, [facility] POCT GLUCOSE (AUTOMATED) 2023-02-16 05:16:00 Abu Ather ah, [facility] POCT GLUCOSE (AUTOMATED) 2023-02-16 01:27:00 Abu Ather ah, [facility] POCT GLUCOSE (AUTOMATED) 2023-02-15 22:30:00 Abu Ather ah, [facility] POCT GLUCOSE (AUTOMATED) 2023-02-15 16:56:00 Abu Ather ah, [facility] POCT GLUCOSE (AUTOMATED) 2023-02-15 11:06:00 Abu Ather ah, [facility] BASIC METABOLIC PANEL (NA, K, CL, CO2, GLUCOSE, BUN, CREATININE, CA) 2023-02-15 09:15:00 [facility] CBC WITH DIFF 2023-02-15 09:15:[address] [facility] N-TERMINAL PRO-BNP 2023-02-15 09:15:00 Lorri Arevalo [facility] POCT GLUCOSE (AUTOMATED) 2023-02-15 05:15:00 Abu Ather ah, [facility] POCT GLUCOSE (AUTOMATED) 2023-02-15 01:02:00 Abu Ather ah, [facility] POCT GLUCOSE (AUTOMATED) 2023-02-14 21:51:00 Abu Ather ah, [facility] POCT GLUCOSE (AUTOMATED) 2023-02-14 16:20:00 Abu Ather ah, [facility] POCT GLUCOSE (AUTOMATED) 2023-02-14 12:00:00 Abu Ather ah, [facility] PHOSPHORUS 2023-02-14 08:44:00 [facility] MAGNESIUM 2023-02-14 08:44:00 [facility] BASIC METABOLIC PANEL (NA, K, CL, CO2, GLUCOSE, BUN, CREATININE, CA) 2023-02-14 08:44:00 Whitney [facility] CBC WITH DIFF 2023-02-14 08:44:00 [facility]) 2023-02-14 08:33:00 Abu Ather ah, [facility] POCT GLUCOSE (AUTOMATED) 2023-02-14 04:53:00 Abu Ather ah, [facility] POCT GLUCOSE (AUTOMATED) 2023-02-14 02:11:00 Abu Ather ah, [facility] POCT GLUCOSE (AUTOMATED) 2023-02-13 21:59:00 Abu Ather ah, [facility] POCT GLUCOSE (AUTOMATED) 2023-02-13 16:49:00 Abu Ather ah, [facility] POCT GLUCOSE (AUTOMATED) 2023-02-13 12:21:00 Abu Ather ah, [facility] PHOSPHORUS 2023-02-13 09:59:00 Edwin Gómez [facility] MAGNESIUM 2023-02-13 09:59:00 Dalia [facility] BASIC METABOLIC PANEL (NA, K, CL, CO2, GLUCOSE, BUN, CREATININE, CA) 2023-02-13 09:59:00 Dalia [facility] CBC WITH DIFF 2023-02-13 09:59:00 [facility] 2023-02-13 09:02:00 Abu Ather ah, [facility] POCT GLUCOSE (AUTOMATED) 2023-02-13 05:05:00 Abu Ather ah, [facility] POCT GLUCOSE (AUTOMATED) 2023-02-13 01:23:00 Abu Ather ah, [facility] POCT GLUCOSE (AUTOMATED) 2023-02-12 22:31:00 Abu Ather ah, [facility] BASIC METABOLIC PANEL (NA, K, CL, CO2, GLUCOSE, BUN, CREATININE, CA) 2023-02-12 21:20:00 [facility] PO[facility] GLUCOSE (AUTOMATED) 2023-02-12 16:52:00 Abu Ather ah, [facility] POCT GLUCOSE (AUTOMATED) 2023-02-12 12:14:00 Abu Ather ah, [facility] XR CHEST 1 VW 2023-02-12 11:26:00 Ellen Biggs [facility] POCT GLUCOSE (AUTOMATED) 2023-02-12 09:04:00 Abu Ather ah, [facility] PHOSPHORUS 2023-02-12 07:33:00 Dalia [facility] MAGNESIUM 2023-02-12 07:33:00 [facility] HEPATIC FUNCTION PANEL (72509) (ALB,T.PRO,BILI T,BU/BC,ALT,AST,ALK PHOS) 2023-02-12 07:33:00 Dianna Bailey [facility] BASIC METABOLIC PANEL (NA, K, CL, CO2, GLUCOSE, BUN, CREATININE, CA) 2023-02-12 07:33:00 Dalia [facility] CBC WITH DIFF 2023-02-12 07:33:00 Dalia [facility] POCT GLUCOSE (AUTOMATED) 2023-02-12 05:02:00 Abu Ather ah, [facility] POCT GLUCOSE (AUTOMATED) 2023-02-12 02:01:00 Abu Ather ah, [facility] POCT GLUCOSE (AUTOMATED) 2023-02-11 22:05:00 Abu Ather ah, [facility] POCT GLUCOSE (AUTOMATED) 2023-02-11 17:14:00 Abu Ather ah, [facility] POCT GLUCOSE (AUTOMATED) 2023-02-11 12:55:00 Abu Ather ah, [facility] PHOSPHORUS 2023-02-11 09:15:00 Wojciechwa [facility] MAGNESIUM 2023-02-11 09:15:00 [facility] HEPATIC FUNCTION PANEL (68226) (ALB,T.PRO,BILI T,BU/BC,ALT,AST,ALK PHOS) 2023-02-11 09:15:00 [facility] BASIC METABOLIC PANEL (NA, K, CL, CO2, GLUCOSE, BUN, CREATININE, CA) 2023-02-11 09:15:00 [facility] CBC WITH DIFF 2023-02-11 09:15:00 [facility] N-TERMINAL PRO-BNP 2023-02-11 09:15:00 Nicolás Chopra [facility] POCT GLUCOSE (AUTOMATED) 2023-02-11 08:55:00 Abu Ather ah, [facility] POCT GLUCOSE (AUTOMATED) 2023-02-11 04:43:00 Abu Ather ah, [facility] POCT GLUCOSE (AUTOMATED) 2023-02-11 02:04:00 Abu Ather ah, [facility] POCT GLUCOSE (AUTOMATED) 2023-02-10 21:17:00 Abu Ather ah, [facility] US ABDOMEN LIMITED WITH DOPPLER 2023-02-10 19:26:12 [facility] HEPATITIS B SURFACE ANTIBODY 2023-02-10 18:58:00 [facility] HEPATITIS B SURFACE ANTIGEN 2023-02-10 18:58:00 [facility] HCV ANTIBODY 2023-02-10 18:58:00 Dianna Bailey [facility] HEPATITIS A VIRUS ANTIBODY IGM 2023-02-10 18:58:00 [facility] HEPATITIS B CORE ANTIBODY IGM 2023-02-10 18:58:00 Dianna Bailey [facility] HAV ANTIBODY (IGG AND IGM) 2023-02-10 18:58:00 Dianna Bailey [facility] POCT GLUCOSE (AUTOMATED) 2023-02-10 17:15:00 Abu Ather ah, [facility] XR CHEST 1 VW 2023-02-10 13:25:00 Ellen Biggs [facility] POCT GLUCOSE (AUTOMATED) 2023-02-10 13:13:00 Abu Ather ah, [facility] HEPATIC FUNCTION PANEL (43216) (ALB,T.PRO,BILI T,BU/BC,ALT,AST,ALK PHOS) 2023-02-10 10:22:00 [facility]OLIC PANEL (NA, K, CL, CO2, GLUCOSE, BUN, CREATININE, CA) 2023-02-10 10:22:00 Gurwinder Raymond [facility] CBC WITH DIFF 2023-02-10 10:22:00 [facility]) 2023-02-10 08:47:00 Abu Ather ah, [facility] POCT GLUCOSE (AUTOMATED) 2023-02-10 04:46:00 Abu Ather ah, [facility] POCT GLUCOSE (AUTOMATED) 2023-02-10 01:12:00 Abu Ather ah, [facility] POCT GLUCOSE (AUTOMATED) 2023-02-09 20:57:00 Abu Ather ah, [facility] POCT GLUCOSE (AUTOMATED) 2023-02-09 16:45:00 Abu Ather ah, [facility] DUPLEX VENOUS LEGS BILATERAL - BY VASCULAR LAB 2023-02-09 15:15:59 [facility] PO[facility]UCOSE (AUTOMATED) 2023-02-09 13:02:00 Abu Ather ah, [facility] BASIC METABOLIC PANEL (NA, K, CL, CO2, GLUCOSE, BUN, CREATININE, CA) 2023-02-09 10:22:00 Terminella, [facility] CBC WITH DIFF 2023-02-09 10:22:00 Gurwinder Raymond [facility] POCT GLUCOSE (AUTOMATED) 2023-02-09 09:45:00 Abu Ather ah, [facility] POCT GLUCOSE (AUTOMATED) 2023-02-09 04:33:00 Abu Ather ah, [facility] POCT GLUCOSE (AUTOMATED) 2023-02-09 01:17:00 Abu Ather ah, [facility] POCT GLUCOSE (AUTOMATED) 2023-02-08 21:21:00 Abu Ather ah, [facility] HB ECG ROUTINE & RHYTHM STRIP 2023-02-08 17:05:19 [facility]) 2023-02-08 16:33:00 Abu Ather ah, [facility] POCT GLUCOSE (AUTOMATED) 2023-02-08 12:35:00 Abu Ather ah, [facility] BASIC METABOLIC PANEL (NA, K, CL, CO2, GLUCOSE, BUN, CREATININE, CA) 2023-02-08 10:43:00 Jesse [facility] CBC WITH DIFF 2023-02-08 10:43:00 Jesse Nicolás [facility] POCT GLUCOSE (AUTOMATED) 2023-02-08 10:43:00 Abu Ather ah, [facility] POCT GLUCOSE (AUTOMATED) 2023-02-08 05:43:00 Abu Ather ah, [facility] POCT GLUCOSE (AUTOMATED) 2023-02-08 01:02:00 Abu Ather ah, [facility] POCT GLUCOSE (AUTOMATED) 2023-02-07 21:03:00 Abu Ather ah, [facility] TRANSTHORACIC ECHO (TTE) COMPLETE 2023-02-07 17:26:16 Jose Ramon Sumner [facility] MAGNESIUM 2023-02-07 17:06:00 Adama Fajardo [facility] TROPONIN I 2023-02-07 17:06:00 Adama Fajardo [facility] BASIC METABOLIC PANEL (NA, K, CL, CO2, GLUCOSE, BUN, CREATININE, CA) 2023-02-07 17:06:00 Adama Fajardo [facility] CBC WITH DIFF 2023-02-07 17:06:00 Adama Fajardo [facility] POCT GLUCOSE (AUTOMATED) 2023-02-07 16:43:00 Abu Ather ah, [facility] POCT GLUCOSE (AUTOMATED) 2023-02-07 12:28:00 Abu Ather ah, [facility] TROPONIN I 2023-02-07 10:55:00 TerminGurwinder morrell [facility] POCT GLUCOSE (AUTOMATED) 2023-02-07 09:38:00 Abu Ather ah, [facility] HB ECG ROUTINE & RHYTHM STRIP 2023-02-07 05:06:24 Terminpetros [facility] HB ECG ROUTINE & RHYTHM STRIP 2023-02-07 05:05:14 James Biggs [facility] COVID-19 (ID NOW RAPID TESTING) 2023-02-07 04:59:00 Abu Atherah [facility] LAB ONLY COVID INTERPRETATION 2023-02-07 04:59:00 Abu Atherah, [facility] PHOSPHORUS 2023-02-07 04:57:00 Gurwinder Raymond [facility] MAGNESIUM 2023-02-07 04:57:00 Gurwinder Raymond [facility] TROPONIN I 2023-02-07 04:57:00 Gurwinder Raymond [facility] BASIC METABOLIC PANEL (NA, K, CL, CO2, GLUCOSE, BUN, CREATININE, CA) 2023-02-07 04:57:00 Segundo [facility] CBC WITHOUT DIFF 2023-02-07 04:57:00 Segundo [facility] POCT GLUCOSE (AUTOMATED) 2023-02-07 04:55:00 Abu Ather ah, [facility] POCT GLUCOSE (AUTOMATED) 2023-02-07 00:52:00 Abu Ather ah, [facility] TROPONIN I 2023-02-06 23:04:00 Abu AtherCarlos mahoney [facility] POCT GLUCOSE (AUTOMATED) 2023-02-06 21:23:00 [facility] POCT GLUCOSE (AUTOMATED) 2023-02-06 17:37:00 Abu Ather ah, [facility] TROPONIN I 2023-02-06 17:06:00 [facility] 2023-02-06 16:01:00 [facility] 2023-02-06 16:01:00 Sunil [facility] HB ECG ROUTINE & RHYTHM STRIP 2023-02-06 15:35:53 Sunil [facility] N-TERMINAL PRO-BNP 2023-02-06 14:02:00 Liliam [facility] N-TERMINAL PRO-BNP 2023-02-06 14:02:00 Antony Ricketts [facility] ACUTE CARE ARTERIAL BLOOD GAS 2023-02-06 13:38:00 Liliam [facility] ACUTE CARE ARTERIAL BLOOD GAS 2023-02-06 13:38:00 Liliam [facility] POCT GLUCOSE (AUTOMATED) 2023-02-06 13:09:00 Abu Ather ah, [facility] POCT GLUCOSE (AUTOMATED) 2023-02-06 13:09:00 Abu Ather ah, [facility] TROPONIN I 2023-02-06 11:50:00 James Biggs [facility] TROPONIN I 2023-02-06 11:50:00 James Biggs [facility] XR CHEST 1 VW 2023-02-06 07:01:00 James Biggs [facility] XR CHEST 1 VW 2023-02-06 07:01:00 James Biggs [facility] URINALYSIS MICROSCOPIC 2023-02-06 06:44:00 Jina Perez [facility] URINALYSIS MICROSCOPIC 2023-02-06 06:44:00 Jina Perez [facility] CBC WITH DIFF 2023-02-06 06:34:00 [facility] 2023-02-06 06:34:00 Biggs, [facility] AMMONIA, PLASMA 2023-02-06 06:34:00 Chris [facility] COMP. METABOLIC PANEL ([id number]) 2023-02-06 06:34:00 Chris [facility] BILI UNCONJUGATED/BILI CONJUG 2023-02-06 06:34:00 [facility] MAGNESIUM 2023-02-06 06:34:00 Biggs [facility] AMMONIA, PLASMA 2023-02-06 06:34:00 Chris [facility] BILI UNCONJUGATED/BILI CONJUG 2023-02-06 06:34:00 [facility] COMP. METABOLIC PANEL ([id number]) 2023-02-06 06:34:00 Chris [facility] CBC WITH DIFF 2023-02-06 06:34:00 Sunil [facility] AC PANEL 20 + LACTIC ACID 2023-02-06 06:26:00 Shawanda Perez [facility] AC PANEL 20 + LACTIC ACID 2023-02-06 06:26:00 Shawanda Perez [facility] POCT GLUCOSE (AUTOMATED) 2023-02-06 05:34:00 Abu Ather ah, [facility] POCT GLUCOSE (AUTOMATED) 2023-02-06 05:34:00 Abu Ather ah, [facility] POCT GLUCOSE (AUTOMATED) 2023-02-06 02:01:00 Abu Ather ah, [facility] POCT GLUCOSE (AUTOMATED) 2023-02-06 02:01:00 Abu Ather ah, [facility] POCT GLUCOSE (AUTOMATED) 2023-02-05 22:50:00 Abu Ather ah, [facility] POCT GLUCOSE (AUTOMATED) 2023-02-05 22:50:00 Abu Ather ah, [facility] POCT GLUCOSE (AUTOMATED) 2023-02-05 16:50:00 Abu Ather ah, [facility] POCT GLUCOSE (AUTOMATED) 2023-02-05 16:50:00 Abu Ather ah, [facility] PROTHROMBIN TIME / INR 2023-02-05 13:53:00 Mary Bailey [facility] PROTHROMBIN TIME / INR 2023-02-05 13:53:00 Mary Bailey [facility] POCT GLUCOSE (AUTOMATED) 2023-02-05 13:32:00 Abu Ather ah, [facility] POCT GLUCOSE (AUTOMATED) 2023-02-05 13:32:00 Abu Ather ah, [facility] CBC WITH DIFF 2023-02-05 10:12:00 Sunil [facility] BASIC METABOLIC PANEL (NA, K, CL, CO2, GLUCOSE, BUN, CREATININE, CA) 2023-02-05 10:12:00 Sunil [facility] MAGNESIUM 2023-02-05 10:12:00 Sunil [facility] MAGNESIUM 2023-02-05 10:12:00 [facility] BASIC METABOLIC PANEL (NA, K, CL, CO2, GLUCOSE, BUN, CREATININE, CA) 2023-02-05 10:12:00 Biggs [facility] CBC WITH DIFF 2023-02-05 10:12:00 Biggs [facility] POCT GLUCOSE (AUTOMATED) 2023-02-05 09:32:00 Abu Ather ah, [facility] POCT GLUCOSE (AUTOMATED) 2023-02-05 09:32:00 Abu Ather ah, [facility] POCT GLUCOSE (AUTOMATED) 2023-02-05 04:18:00 Abu Ather ah, [facility] POCT GLUCOSE (AUTOMATED) 2023-02-05 04:18:00 Abu Ather ah, [facility] POCT GLUCOSE (AUTOMATED) 2023-02-05 02:02:00 Abu Ather ah, [facility] POCT GLUCOSE (AUTOMATED) 2023-02-05 02:02:00 Abu Ather ah, [facility] POCT GLUCOSE (AUTOMATED) 2023-02-04 21:31:00 Abu Ather ah, [facility] POCT GLUCOSE (AUTOMATED) 2023-02-04 21:31:00 Abu Ather ah, [facility] CBC WITH DIFF 2023-02-04 21:02:00 Abu Atherah, [facility] CBC WITH DIFF 2023-02-04 21:02:00 Abu Atherah, [facility] IR PARACENTESIS/PERITONECENTES IS WITH IMAGING 2023-02-04 19:54:12 Ellen Biggs [facility] POCT GLUCOSE (AUTOMATED) 2023-02-04 16:40:00 Abu Ather ah, [facility] POCT GLUCOSE (AUTOMATED) 2023-02-04 16:40:00 Abu Ather ah, [facility] XR CHEST 1 VW 2023-02-04 13:34:00 Abu Atherah, [facility] XR CHEST 1 VW 2023-02-04 13:34:00 Abu Atherah, [facility] POCT GLUCOSE (AUTOMATED) 2023-02-04 13:01:00 Abu Ather ah, [facility] POCT GLUCOSE (AUTOMATED) 2023-02-04 13:01:00 Abu Ather ah, [facility] AMMONIA, PLASMA 2023-02-04 12:45:00 Abu Atherah, [facility] AMMONIA, PLASMA 2023-02-04 12:45:00 Abu Atherah, [facility] AC ABG + LACTIC ACID 2023-02-04 12:37:00 Albustami, [facility] AC ABG + LACTIC ACID 2023-02-04 12:37:00 Albustami, Om ar [facility] PROTHROMBIN TIME / INR 2023-02-04 11:39:00 Mary aBiley [facility] PROTHROMBIN TIME / INR 2023-02-04 11:39:00 Mary Bailey [facility] CBC WITH DIFF 2023-02-04 09:49:00 [facility] BASIC METABOLIC PANEL (NA, K, CL, CO2, GLUCOSE, BUN, CREATININE, CA) 2023-02-04 09:49:00 Sunil [facility] MAGNESIUM 2023-02-04 09:49:00 Sunil [facility] PHOSPHORUS 2023-02-04 09:49:[address] [facility] PHOSPHORUS 2023-02-04 09:49:[facility]23-02-04 09:49:00 Sunil [facility] BASIC METABOLIC PANEL (NA, K, CL, CO2, GLUCOSE, BUN, CREATININE, CA) 2023-02-04 09:49:00 Sunil [facility] CBC WITH DIFF 2023-02-04 09:49:00 Biggs, [facility] POCT GLUCOSE (AUTOMATED) 2023-02-04 09:19:00 Abu Ather ah, [facility] POCT GLUCOSE (AUTOMATED) 2023-02-04 09:19:00 Abu Ather ah, [facility] POCT GLUCOSE (AUTOMATED) 2023-02-04 03:56:00 Abu Ather ah, [facility] POCT GLUCOSE (AUTOMATED) 2023-02-04 03:56:00 Abu Ather ah, [facility] POCT GLUCOSE (AUTOMATED) 2023-02-04 02:15:00 Abu Ather ah, [facility] POCT GLUCOSE (AUTOMATED) 2023-02-04 02:15:00 Abu Ather ah, [facility] ABG+COOX+NA+K+GLU+CA2+ 2023-02-04 01:10:00 Abu Atherah , [facility] ABG+COOX+NA+K+GLU+CA2+ 2023-02-04 01:10:00 Abu Atherah , [facility] POCT GLUCOSE (AUTOMATED) 2023-02-04 00:51:00 Abu Robb mahoney [facility] POCT GLUCOSE (AUTOMATED) 2023-02-04 00:51:00 Abu Robb mahoney, [facility] BLOOD CULTURE SCREEN 2023-02-03 22:14:00 [facility] BLOOD CULTURE SCREEN 2023-02-03 22:14:00 [facility] ABG+COOX+NA+K+GLU+CA2+ 2023-02-03 22:10:00 Abu Athermaru , [facility] ABG+COOX+NA+K+GLU+CA2+ 2023-02-03 22:10:00 Abu Agnes [facility] XR CHEST 1 VW 2023-02-03 21:56:00 Abu Agnes [facility] XR CHEST 1 VW 2023-02-03 21:56:00 [facility] BLOOD CULTURE SCREEN 2023-02-03 21:55:00 [facility] BLOOD CULTURE SCREEN 2023-02-03 21:55:00 [facility] 2023-02-03 21:48:00 Dianna Bailey [facility] BASIC METABOLIC PANEL (NA, K, CL, CO2, GLUCOSE, BUN, CREATININE, CA) 2023-02-03 21:48:00 Abu Agnes [facility] CBC WITH DIFF 2023-02-03 21:48:00 u Robbmaru Suzieeverardo [facility] BASIC METABOLIC PANEL (NA, K, CL, CO2, GLUCOSE, BUN, CREATININE, CA) 2023-02-03 21:48:00 Abu Agnes [facility] CBC WITH DIFF 2023-02-03 21:48:00 Abu [facility] FIBRINOGEN 2023-02-03 21:48:00 Dianna Bailey [facility] POCT GLUCOSE (AUTOMATED) 2023-02-03 21:22:00 Abu Robb mahoney [facility] POCT GLUCOSE (AUTOMATED) 2023-02-03 21:22:00 Abu Ather ah, [facility] ABG+COOX+NA+K+GLU+CA2+ 2023-02-03 20:38:00 Abu Atherah , [facility] ABG+COOX+NA+K+GLU+CA2+ 2023-02-03 20:38:00 Abu Atherah , [facility] POCT GLUCOSE (AUTOMATED) 2023-02-03 17:22:00 Abu Ather ah, [facility] POCT GLUCOSE (AUTOMATED) 2023-02-03 17:22:00 Abu Ather ah, [facility] CBC WITH DIFF 2023-02-03 15:17:00 Abu Ather, [facility] CBC WITH DIFF 2023-02-03 15:17:00 Abu [facility], [facility] PROTHROMBIN TIME / INR 2023-02-03 13:37:00 Mary Bailey [facility] PROTHROMBIN TIME / INR 2023-02-03 13:37:00 Mary Bailey [facility] POCT GLUCOSE (AUTOMATED) 2023-02-03 13:29:00 Abu Ather ah, [facility] POCT GLUCOSE (AUTOMATED) 2023-02-03 13:29:00 Abu Ather ah, [facility] BASIC METABOLIC PANEL (NA, K, CL, CO2, GLUCOSE, BUN, CREATININE, CA) 2023-02-03 09:34:00 Nicolás Molina [facility] MAGNESIUM 2023-02-03 09:34:00 Nicolás Molina [facility] PHOSPHORUS 2023-02-03 09:34:00 Nicolás Molina [facility] CBC WITHOUT DIFF 2023-02-03 09:34:[address] [facility] IRON 2023-02-03 09:34:00 Nicolás Molina [facility] TOTAL IRON BINDING CAPACITY 2023-02-03 09:34:00 [facility] F[facility]UM 2023-02-03 09:34:00 Nicolás Molina [facility] VITAMIN B12, LEVEL 2023-02-03 09:34:00 Jesse [facility] FOLATE 2023-02-03 09:34:00 Nicolás Molina [facility] GLYCOSYLATED HEMOGLOBIN (A1C) 2023-02-03 09:34:00 Jesse [facility] PHOSPHORUS 2023-02-03 09:34:00 Nicolás Molina [facility] MAGNESIUM 2023-02-03 09:34:00 Jesse Nicolás [facility] FERRITIN SERUM 2023-02-03 09:34:00 Nicolás Molina [facility] IRON 2023-02-03 09:34:00 Jesse Nicolás [facility] VITAMIN B12, LEVEL 2023-02-03 09:34:00 Jesse [facility] FOLATE 2023-02-03 09:34:00 Jesse Nicolás [facility] TOTAL IRON BINDING CAPACITY 2023-02-03 09:34:00 Zhanna yuan [facility] BASIC METABOLIC PANEL (NA, K, CL, CO2, GLUCOSE, BUN, CREATININE, CA) 2023-02-03 09:34:00 Jesse [facility] CBC WITHOUT DIFF 2023-02-03 09:34:[address] [facility] GLYCOSYLATED HEMOGLOBIN (A1C) 2023-02-03 09:34:00 Jesse [facility] POCT GLUCOSE (AUTOMATED) 2023-02-03 09:13:00 Abu Ather maru [facility] POCT GLUCOSE (AUTOMATED) 2023-02-03 09:13:00 Abu Ather maru [facility] TRANSFUSE PACKED RBC 2023-02-03 05:42:00 Jesse [facility] TRANSFUSE PACKED RBC 2023-02-03 05:42:00 Susan Molina [facility] PREPARE PACKED RBC 2023-02-03 05:32:46 ZhannaSusan yuanar [facility] PREPARE PACKED RBC 2023-02-03 05:32:46 OpalmeaghanNicolás yuan [facility] POCT GLUCOSE (AUTOMATED) 2023-02-03 04:27:00 Abu [facility], [facility] POCT GLUCOSE (AUTOMATED) 2023-02-03 04:27:00 Abu Ather ah, Carlos [facility] HB ABO GROUPING 2023-02-03 04:21:00 [facility] 2023-02-03 04:21:00 JesseNicolás Un [facility] URINE DRUG (IMMUNOASSAY) - COMPREHENSIVE DRUG SCREEN 2023-02-03 02:12:00 Brandon Shelton [facility] URINE DRUG (IMMUNOASSAY) - COMPREHENSIVE DRUG SCREEN 2023-02-03 02:12:00 Brandon Shelton [facility] LACTIC ACID WHOLE BLOOD 2023-02-03 02:01:00 Thomas Shelton [facility] LACTIC ACID WHOLE BLOOD 2023-02-03 02:01:00 Thomas Shelton [facility] TRANSFUSE PACKED RBC 2023-02-03 01:24:00 Brandon Shelton [facility] TRANSFUSE PACKED RBC 2023-02-03 01:24:00 Bradnon Shelton [facility] PREPARE PACKED RBC 2023-02-03 01:04:45 Brandon Shelton [facility] PREPARE PACKED RBC 2023-02-03 01:04:45 Brandon Shelton [facility] TRANSFUSE PACKED RBC 2023-02-02 22:15:00 Brandon Shelton [facility] TRANSFUSE PACKED RBC 2023-02-02 22:15:00 Brandon Shelton [facility] URINE CULTURE 2023-02-02 22:07:00 Brandon Shelton [facility] URINE CULTURE 2023-02-02 22:07:00 Brandon Shelton [facility] XR CHEST 1 VW 2023-02-02 21:43:00 Brandon Shelton [facility] XR CHEST 1 VW 2023-02-02 21:43:00 Brandon Shelton [facility] CT HEAD WO CONTRAST 2023-02-02 21:42:00 Brandon Shelton [facility] CT MAXILLOFACIAL/MANDIBLE WO CONTRAST 2023-02-02 21:42:00 Brandon Shelton [facility] CT ABDOMEN PELVIS WO CONTRAST 2023-02-02 21:42:00 Brandon Shelton [facility] CT ABDOMEN PELVIS WO CONTRAST 2023-02-02 21:42:00 Brandon Shleton [facility] CT MAXILLOFACIAL/MANDIBLE WO CONTRAST 2023-02-02 21:42:00 Brandon Shelton [facility] CT HEAD WO CONTRAST 2023-02-02 21:42:00 Brandon Shelton [facility] THYROID STIMULATING HORMONE 2023-02-02 21:33:00 Brandon Shelton [facility] HB ABO GROUPING 2023-02-02 21:33:00 Brandon [facility]ton [facility] [facility] THYROID STIMULATING HORMONE 2023-02-02 21:33:00 Brandon Shelton [facility] HB ABO GROUPING 2023-02-02 21:33:00 Brandon Shelton [facility] URINALYSIS 2023-02-02 20:47:[address] [facility] URINALYSIS 2023-02-02 20:47:[address] [facility] AC ABG + LACTIC ACID 2023-02-02 20:32:00 Brandon Shelton [facility] AC ABG + LACTIC ACID 2023-02-02 20:32:00 Brandon Shelton [facility] ASSIGNMENT OF BENEFITS 2023-02-02 20:07:35 Docto r Unassigned, [facility] ASSIGNMENT OF BENEFITS 2023-02-02 20:07:35 Docto r Unassigned, [facility] CBC WITH DIFF 2023-02-02 20:04:00 Brandon Shelton [facility] PROTHROMBIN TIME / INR 2023-02-02 20:04:00 Mary Shelton [facility] COMP. METABOLIC PANEL ([id number]) 2023-02-02 20:04:00 Brandon Shelton [facility] TROPONIN I 2023-02-02 20:04:[address] [facility] N-TERMINAL PRO-BNP 2023-02-02 20:04:00 Brandon Shelton [facility] TROPONIN I 2023-02-02 20:04:[address] [facility] COMP. METABOLIC PANEL ([id number]) 2023-02-02 20:04:00 Brandon Shelton [facility] CBC WITH DIFF 2023-02-02 20:04:00 Brandon Shelton [facility] PROTHROMBIN TIME / INR 2023-02-02 20:04:00 Mary Shelton [facility] N-TERMINAL PRO-BNP 2023-02-02 20:04:00 Brandon Shelton [facility] CONSENT/REFUSAL FOR DIAGNOSIS AND TREATMENT 2023-02-02 19:51:26 Doctor Unassigned, [facility] CONSENT/REFUSAL FOR DIAGNOSIS AND TREATMENT 2023-02-02 19:51:26 Doctor Unassigned, [facility] HB ECG ROUTINE & RHYTHM STRIP 2023-02-02 19:43:20 Brandon Shelton [facility] HB ECG ROUTINE & RHYTHM STRIP 2023-02-02 19:43:20 Brandon Shelton [facility] CRITICAL CARE 2023-02-02 19:37:00 Brandon Shelton [facility] CRITICAL CARE 2023-02-02 19:37:00 Brandon Shelton [facility] EXTERNAL PROVIDER RECORDS 2023-02-02 05:01:00 Do ctor Unassigned, [facility] EXTERNAL PROVIDER RECORDS 2023-02-02 05:01:00 Do ctor Unassigned, [facility] EMERGENCY DEPARTMENT DOCUMENTS 2023-02-02 05:01:00 Doctor Unassigned, [facility] DISCLOSURE AND CONSENT, MEDICAL AND SURGICAL PROCEDURES 2023-02-02 05:01:00 Doctor Unassigned, [facility] EXTERNAL PROVIDER - ADC REFERRAL 2023-01-12 05:01:00 Doctor Unassigned, [facility] POCT GLUCOSE (AUTOMATED) 2022-11-07 16:43:00 Santos Walters [facility] POCT GLUCOSE (AUTOMATED) 2022-11-07 16:43:00 Santos Walters [facility] POCT GLUCOSE (AUTOMATED) 2022-11-07 13:31:00 Santos Walters [facility] POCT GLUCOSE (AUTOMATED) 2022-11-07 13:31:00 Santos Walters [facility] CBC WITH DIFF 2022-11-07 09:26:00 Pengbradly [facility] CBC WITH DIFF 2022-11-07 09:26:00 [facility] POCT GLUCOSE (AUTOMATED) 2022-11-07 01:40:00 Santos Walters [facility] POCT GLUCOSE (AUTOMATED) 2022-11-07 01:40:00 Santos Walters [facility] POCT GLUCOSE (AUTOMATED) 2022-11-06 23:00:00 Santos Walters [facility] POCT GLUCOSE (AUTOMATED) 2022-11-06 23:00:00 Santos Walters [facility] POCT GLUCOSE (AUTOMATED) 2022-11-06 17:53:00 Santos Walters [facility] POCT GLUCOSE (AUTOMATED) 2022-11-06 17:53:00 Santos Walters [facility] POCT GLUCOSE (AUTOMATED) 2022-11-06 13:25:00 Santos Walters [facility] POCT GLUCOSE (AUTOMATED) 2022-11-06 13:25:00 Santos Walters amshawanda [facility] POCT GLUCOSE (AUTOMATED) 2022-11-06 01:35:00 Santos Walters [facility] POCT GLUCOSE (AUTOMATED) 2022-11-05 22:40:00 [facility] POCT GLUCOSE (AUTOMATED) 2022-11-05 17:37:00 Santos Walters [facility] POCT GLUCOSE (AUTOMATED) 2022-11-05 12:20:00 Santos Walters [facility] POCT GLUCOSE (AUTOMATED) 2022-11-05 02:01:00 Selena [facility] POCT GLUCOSE (AUTOMATED) 2022-11-04 21:10:00 Santos Walters [facility] COVID-19 (ID NOW RAPID TESTING) 2022-11-04 [facility]:04[facility] 2022-11-04 19:04:00 Chandan [facility] POCT GLUCOSE (AUTOMATED) 2022-11-04 16:24:00 Selena [facility] POCT GLUCOSE (AUTOMATED) 2022-11-04 12:43:00 Santos Walters [facility] BASIC METABOLIC PANEL (NA, K, CL, CO2, GLUCOSE, BUN, CREATININE, CA) 2022-11-04 09:14:00 Ana Maria [facility] CBC WITH DIFF 2022-11-04 09:14:00 Pengaaron [facility] POCT GLUCOSE (AUTOMATED) 2022-11-04 01:25:00 Santos Walters [facility] POCT GLUCOSE (AUTOMATED) 2022-11-03 22:19:00 Santos Walters [facility] POCT GLUCOSE (AUTOMATED) 2022-11-03 16:38:00 Santos Walters [facility] POCT GLUCOSE (AUTOMATED) 2022-11-03 12:46:00 Selena [facility] POCT GLUCOSE (AUTOMATED) 2022-11-03 01:42:00 PhalSantos rico amshawanda [facility] POCT GLUCOSE (AUTOMATED) 2022-11-02 21:08:00 Phalbrianna [facility] POCT GLUCOSE (AUTOMATED) 2022-11-02 16:07:00 Phalbrianna, S [facility] POCT GLUCOSE (AUTOMATED) 2022-11-02 12:35:00 PhalSantos rico [facility] POCT GLUCOSE (AUTOMATED) 2022-11-02 01:43:00 Phalak S [facility] POCT GLUCOSE (AUTOMATED) 2022-11-01 20:56:00 Phalbrianna S [facility] POCT GLUCOSE (AUTOMATED) 2022-11-01 16:43:00 Phalbrianna S [facility] POCT GLUCOSE (AUTOMATED) 2022-11-01 12:39:00 PhalSantos rico [facility] POCT GLUCOSE (AUTOMATED) 2022-11-01 01:49:00 Phalbrianna S [facility] POCT GLUCOSE (AUTOMATED) 2022-11-01 01:49:00 Selena S [facility] BASIC METABOLIC PANEL (NA, K, CL, CO2, GLUCOSE, BUN, CREATININE, CA) 2022-10-31 22:27:00 Eze Santiago [facility] BASIC METABOLIC PANEL (NA, K, CL, CO2, GLUCOSE, BUN, CREATININE, CA) 2022-10-31 22:27:00 Eze Santiago [facility] CARDIAC CATHETERIZATION 2022-10-31 16:44:12 Ebony Bautista [facility] CARDIAC CATHETERIZATION 2022-10-31 16:44:12 Ebony Bautista [facility] POCT ACT LOW RANGE 2022-10-31 16:28:00 Selena [facility] POCT ACT LOW RANGE 2022-10-31 16:28:00 Selena [facility] POCT ACT LOW RANGE 2022-10-31 16:01:00 Selena [facility] POCT ACT LOW RANGE 2022-10-31 16:01:00 Phalak, [facility] POCT ACT LOW RANGE 2022-10-31 15:40:00 Phalak, [facility] POCT ACT LOW RANGE 2022-10-31 15:40:00 Phalak, [facility] POCT ACT LOW RANGE 2022-10-31 15:14:00 Phalak, [facility] POCT ACT LOW RANGE 2022-10-31 15:14:00 Phalak, [facility] POCT ACT LOW RANGE 2022-10-31 14:52:00 Phalak, [facility] POCT ACT LOW RANGE 2022-10-31 14:52:00 Gueroak, [facility] CATH PROCEDURE LOG 2022-10-31 14:28:42 Eze Santiago [facility] CATH PROCEDURE LOG 2022-10-31 14:28:42 Eze Santiago [facility] POCT GLUCOSE (AUTOMATED) 2022-10-31 12:26:00 Santos Walters amshawanda [facility] POCT GLUCOSE (AUTOMATED) 2022-10-31 12:26:00 Santos Walters amshawanda [facility] ACTIVATED PARTIAL THRMPLAS ARCENIO 2022-10-31 06:23:00 Eze Santiago [facility] ACTIVATED PARTIAL THRMPLAS ARCENIO 2022-10-31 06:23:00 Eze Santiago [facility] ACTIVATED PARTIAL THRMPLAS ARCENIO 2022-10-31 05:19:00 Eze Santiago [facility] ACTIVATED PARTIAL THRMPLAS ARCENIO 2022-10-31 05:19:00 Eze Santiago [facility] POCT GLUCOSE (AUTOMATED) 2022-10-31 02:13:00 Santos Walters [facility] POCT GLUCOSE (AUTOMATED) 2022-10-31 02:13:00 Santos [facility]ters [facility] ACTIVATED PARTIAL THRMPLAS ARCENIO 2022-10-30 23:12:00 Eze Santiago [facility] ACTIVATED PARTIAL THRMPLAS ARCENIO 2022-10-30 23:12:00 Eze Santiago [facility] POCT GLUCOSE (AUTOMATED) 2022-10-30 21:47:00 Sa bhaskar Maxwell [facility] POCT GLUCOSE (AUTOMATED) 2022-10-30 21:47:00 Sa bhaskar Maxwell [facility] ABORH CONFIRMATION (LAB ONLY) 2022-10-30 19:33:00 Adele [facility] ABORH CONFIRMATION (LAB ONLY) 2022-10-30 19:33:00 Adele [facility] HB ABO GROUPING 2022-10-30 18:35:00 Fernie [facility] HB ABO GROUPING 2022-10-30 18:35:00 Fernie [facility] POCT GLUCOSE (AUTOMATED) 2022-10-30 16:49:00 Sa bhaskar Maxwell [facility] POCT GLUCOSE (AUTOMATED) 2022-10-30 16:49:00 Sa bhaskar Maxwell [facility] ACTIVATED PARTIAL THRMPLAS ARCENIO 2022-10-30 14:35:00 Eze Santiago [facility] ACTIVATED PARTIAL THRMPLAS ARCENIO 2022-10-30 14:35:00 Eze Santiago [facility] POCT GLUCOSE (AUTOMATED) 2022-10-30 13:17:00 Sa bhaskar Maxwell [facility] POCT GLUCOSE (AUTOMATED) 2022-10-30 13:17:00 Sa bhaskar Maxwell [facility] BASIC METABOLIC PANEL (NA, K, CL, CO2, GLUCOSE, BUN, CREATININE, CA) 2022-10-30 09:52:00 Katherine [facility] CBC WITH DIFF 2022-10-30 09:52:00 Jose Murphy [facility] BASIC METABOLIC PANEL (NA, K, CL, CO2, GLUCOSE, BUN, CREATININE, CA) 2022-10-30 09:52:00 Katherine [facility] CBC WITH DIFF 2022-10-30 09:52:00 Jose Murphy [facility] POCT GLUCOSE (AUTOMATED) 2022-10-30:08:00 Sa Darren [facility] POCT GLUCOSE (AUTOMATED) 2022-10-30 01:08:00 Darren bhaskar [facility] ACTIVATED PARTIAL THRMPLAS ARCENIO 2022-10-30 00:38:00 Ashish Ezemonalisa Meadows [facility] ACTIVATED PARTIAL THRMPLAS ARCENIO 2022-10-30 00:38:00 Eze Santiago [facility] POCT GLUCOSE (AUTOMATED) 2022-10-29 21:52:00 Darren [facility] POCT GLUCOSE (AUTOMATED) 2022-10-29 21:52:00 Darren [facility] TRANSTHORACIC ECHO (TTE) COMPLETE W/ CONTRAST 2022-10-29 18:31:00 Eze Santiago Dori [facility] TRANSTHORACIC ECHO (TTE) COMPLETE W/ CONTRAST 2022-10-29 18:31:00 Eze Santiago [facility] ACTIVATED PARTIAL THRMPLAS ARCENIO 2022-10-29 17:01:00 Eze Santiago Dori [facility] ACTIVATED PARTIAL THRMPLAS ARCENIO 2022-10-29 17:01:00 Eze Santiago Dori [facility] POCT GLUCOSE (AUTOMATED) 2022-10-29 16:30:00 Darren [facility] POCT GLUCOSE (AUTOMATED) 2022-10-29 16:30:00 Darren [facility] POCT GLUCOSE (AUTOMATED) 2022-10-29 13:02:00 Darren [facility] POCT GLUCOSE (AUTOMATED) 2022-10-29 13:02:00 Darren, [facility] MAGNESIUM 2022-10-29 08:07:[address] [facility] BASIC METABOLIC PANEL (NA, K, CL, CO2, GLUCOSE, BUN, CREATININE, CA) 2022-10-29 08:07:00 Jose Murphy [facility] CBC WITH DIFF 2022-10-29 08:07:00 Jose Murphy [facility] MAGNESIUM 2022-10-29 08:07:00 Jose [facility] BASIC METABOLIC PANEL (NA, K, CL, CO2, GLUCOSE, BUN, CREATININE, CA) 2022-10-29 08:07:00 Katherine Jose [facility] CBC WITH DIFF 2022-10-29 08:07:00 [facility] ACTIVATED PARTIAL THRMPLAS ARCENIO 2022-10-29 04:40:00 Moulin [facility] ACTIVATED PARTIAL THRMPLAS ARCENIO 2022-10-29 04:40:00 Katherine [facility] POCT GLUCOSE (AUTOMATED) 2022-10-29 01:36:00 Darren bhaskar [facility] POCT GLUCOSE (AUTOMATED) 2022-10-29 01:36:00 Darren lik [facility] POCT GLUCOSE (AUTOMATED) 2022-10-29 01:36:00 Darren [facility] POCT GLUCOSE (AUTOMATED) 2022-10-28 21:55:00 Darren [facility] POCT GLUCOSE (AUTOMATED) 2022-10-28 21:55:00 Darren [facility] POCT GLUCOSE (AUTOMATED) 2022-10-28 21:55:00 Sa bhaskar Maxwell [facility] CARDIAC CATHETERIZATION 2022-10-28 17:27:00 Viet Santiago [facility] CARDIAC CATHETERIZATION 2022-10-28 17:27:00 Viet Santiago [facility] CARDIAC CATHETERIZATION 2022-10-28 17:27:00 Viet Santiago [facility] CARDIAC CATHETERIZATION 2022-10-28 17:27:00 Viet Santiago [facility] CARDIAC CATHETERIZATION 2022-10-28 17:27:00 Viet Santiago [facility] CARDIAC CATHETERIZATION 2022-10-28 17:27:00 Viet Santiago [facility] POCT ACT LOW RANGE 2022-10-28 17:24:00 [facility] 2022-10-28 17:24:00 [facility] PO[facility]OW [facility]ANGE 2022-10-28 17:24:00 [facility] CATH PROCEDURE LOG 2022-10-28 16:51:15 Eze Santiago [facility] MAGNESIUM 2022-10-28 10:59:00 Sunil [facility] BASIC METABOLIC PANEL (NA, K, CL, CO2, GLUCOSE, BUN, CREATININE, CA) 2022-10-28 10:59:00 Sunil [facility] MAGNESIUM 2022-10-28 10:59:00 Sunil [facility] BASIC METABOLIC PANEL (NA, K, CL, CO2, GLUCOSE, BUN, CREATININE, CA) 2022-10-28 10:59:00 Sunil [facility] MAGNESIUM 2022-10-28 10:59:00 Sunil [facility] BASIC METABOLIC PANEL (NA, K, CL, CO2, GLUCOSE, BUN, CREATININE, CA) 2022-10-28 10:59:00 Sunil [facility] CBC WITH DIFF 2022-10-28 09:01:00 Sunil [facility] ACTIVATED PARTIAL THRMPLAS ARCENIO 2022-10-28 09:01:00 Katherine [facility] CBC WITH DIFF 2022-10-28 09:01:00 Sunil [facility] ACTIVATED PARTIAL THRMPLAS ARCENIO 2022-10-28 09:01:00 Modavid [facility] CBC WITH DIFF 2022-10-28 09:01:00 Sunil [facility] ACTIVATED PARTIAL THRMPLAS ARCENIO 2022-10-28 09:01:00 Modavid [facility] URINALYSIS 2022-10-28 04:32:00 AlexRadha [facility] URINE CULTURE 2022-10-28 04:32:[address] [facility] URINALYSIS 2022-10-28 04:32:00 AlexRadha [facility] URINE CULTURE 2022-10-28 04:32:[address] [facility] URINALYSIS 2022-10-28 04:32:00 Radha Johnson [facility] POCT GLUCOSE (AUTOMATED) 2022-10-28 01:13:00 Sa bhaskar Maxwell [facility] POCT GLUCOSE (AUTOMATED) 2022-10-28 01:13:00 Sa bhaskar Maxwell [facility] POCT GLUCOSE (AUTOMATED) 2022-10-28 01:13:00 Sa Darren [facility] ACTIVATED PARTIAL THRMPLAS ARCENIO 2022-10-28 01:02:00 Darren [facility] ACTIVATED PARTIAL THRMPLAS ARCENIO 2022-10-28 01:02:00 Darren [facility] ACTIVATED PARTIAL THRMPLAS ARCENIO 2022-10-28 01:02:00 Darren [facility] POCT GLUCOSE (AUTOMATED) 2022-10-27 22:58:00 Sa Darren [facility] POCT GLUCOSE (AUTOMATED) 2022-10-27 22:58:00 Darren [facility] POCT GLUCOSE (AUTOMATED) 2022-10-27 22:58:00 Darren [facility] POCT GLUCOSE (AUTOMATED) 2022-10-27 21:45:00 Darren [facility] POCT GLUCOSE (AUTOMATED) 2022-10-27 21:45:00 Darren [facility] POCT GLUCOSE (AUTOMATED) 2022-10-27 21:45:00 Sa Darren [facility] ACTIVATED PARTIAL THRMPLAS ARCENIO 2022-10-27 17:46:00 Eze Santiago [facility] ACTIVATED PARTIAL THRMPLAS ARCENIO 2022-10-27 17:46:00 Eze Santiago Dori [facility] ACTIVATED PARTIAL THRMPLAS ARCENIO 2022-10-27 17:46:00 Eze Santiago Dori [facility] POCT GLUCOSE (AUTOMATED) 2022-10-27 17:45:00 Terminell a, [facility] POCT GLUCOSE (AUTOMATED) 2022-10-27 17:45:00 Terminell a, [facility] POCT GLUCOSE (AUTOMATED) 2022-10-27 17:45:00 Terminell izabela [facility] POCT GLUCOSE (AUTOMATED) 2022-10-27 13:46:00 Terminell izabela [facility] POCT GLUCOSE (AUTOMATED) 2022-10-27 13:46:00 Terminell izabela [facility] POCT GLUCOSE (AUTOMATED) 2022-10-27 13:46:00 Terminell izabela [facility] MAGNESIUM 2022-10-27 09:24:00 Sunil [facility] TROPONIN I 2022-10-27 09:24:00 Eze Santiago [facility] BASIC METABOLIC PANEL (NA, K, CL, CO2, GLUCOSE, BUN, CREATININE, CA) 2022-10-27 09:24:00 Sunil [facility] CBC WITH DIFF 2022-10-27 09:24:00 Sunil [facility] MAGNESIUM 2022-10-27 09:24:00 Biggs, [facility] TROPONIN I 2022-10-27 09:24:00 Eze Santiago [facility] BASIC METABOLIC PANEL (NA, K, CL, CO2, GLUCOSE, BUN, CREATININE, CA) 2022-10-27 09:24:00 Sunil [facility] CBC WITH DIFF 2022-10-27 09:24:00 Sunil [facility] MAGNESIUM 2022-10-27 09:24:00 Biggs, [facility] TROPONIN I 2022-10-27 09:24:00 Eze Santiago Uni [facility] BASIC METABOLIC PANEL (NA, K, CL, CO2, GLUCOSE, BUN, CREATININE, CA) 2022-10-27 09:24:00 Biggs, [facility] CBC WITH DIFF 2022-10-27 09:24:00 Sunil [facility] POCT GLUCOSE (AUTOMATED) 2022-10-27 02:03:00 Terminell izabela [facility] POCT GLUCOSE (AUTOMATED) 2022-10-27 02:03:00 Terminell izabela [facility] POCT GLUCOSE (AUTOMATED) 2022-10-27 02:03:00 Terminell izabela [facility] MAGNESIUM 2022-10-26 21:49:00 Sunil [facility] BASIC METABOLIC PANEL (NA, K, CL, CO2, GLUCOSE, BUN, CREATININE, CA) 2022-10-26 21:49:00 [facility] ([facility]OMATED) 2022-10-26 21:49:00 Terminell izabela [facility] MAGNESIUM 2022-10-26 21:49:00 Sunil [facility] BASIC METABOLIC PANEL (NA, K, CL, CO2, GLUCOSE, BUN, CREATININE, CA) 2022-10-26 21:49:00 Sunil [facility] POCT GLUCOSE (AUTOMATED) 2022-10-26 21:49:00 Terminell izabela [facility] MAGNESIUM 2022-10-26 21:49:00 Sunil [facility] BASIC METABOLIC PANEL (NA, K, CL, CO2, GLUCOSE, BUN, CREATININE, CA) 2022-10-26 21:49:00 Sunil [facility] POCT GLUCOSE (AUTOMATED) 2022-10-26 21:49:00 Terminell izabela [facility] POCT GLUCOSE (AUTOMATED) 2022-10-26 17:57:00 Terminell a [facility] POCT GLUCOSE (AUTOMATED) 2022-10-26 17:57:00 Terminell a [facility] POCT GLUCOSE (AUTOMATED) 2022-10-26 17:57:00 Terminell izabela [facility] MRSA / MSSA SCREEN BY PCR, [facility] 2022-10-26 15:14:00 Sunil [facility] MRSA / MSSA SCREEN BY PCR, [facility] 2022-10-26 15:14:00 Sunil [facility] MRSA / MSSA SCREEN BY PCR, [facility] 2022-10-26 15:14:00 Sunil [facility] HB ECG ROUTINE & RHYTHM STRIP 2022-10-26 14:36:55 Sunil [facility] HB ECG ROUTINE & RHYTHM STRIP 2022-10-26 14:36:55 Sunil [facility] HB ECG ROUTINE & RHYTHM STRIP 2022-10-26 14:36:55 Sunil [facility] POCT GLUCOSE (AUTOMATED) 2022-10-26 14:20:00 Terminell izabela [facility] POCT GLUCOSE (AUTOMATED) 2022-10-26 14:20:00 Terminell a [facility] POCT GLUCOSE (AUTOMATED) 2022-10-26 14:20:00 Josué garcia [facility] XR CHEST 1 2022-10-26 08:13:28 Carlie Oconnor [facility] XR CHEST 1 2022-10-26 08:13:28 Carlie Oconnor [facility] XR CHEST 1 2022-10-26 08:13:28 Carlie Oconnor [facility] ACUTE CARE ARTERIAL BLOOD GAS 2022-10-26 08:09:00 Carlie Oconnor [facility] ACUTE CARE ARTERIAL BLOOD GAS 2022-10-26 08:09:00 Carlie Oconnor [facility] ACUTE CARE ARTERIAL BLOOD GAS 2022-10-26 08:09:00 Carlie Oconnor [facility] TROPONIN I 2022-10-26 07:58:00 Carlie Oconnor [facility] COMP. METABOLIC PANEL ([id number]) 2022-10-26 07:58:00 Carlie Oconnor [facility] CBC WITH DIFF 2022-10-26 07:58:00 Carlie Oconnor [facility] PROTHROMBIN TIME / INR 2022-10-26 07:58:00 Curtis Oconnor [facility] N-TERMINAL PRO-BNP 2022-10-26 07:58:00 Carlie Oconnor [facility] TROPONIN I 2022-10-26 07:58:00 Carlie Oconnor [facility] COMP. METABOLIC PANEL ([id number]) 2022-10-26 07:58:00 Carlie Oconnor [facility] CBC WITH DIFF 2022-10-26 07:58:00 Carlie Oconnor [facility] PROTHROMBIN TIME / INR 2022-10-26 07:58:00 Curtis Oconnor [facility] N-TERMINAL PRO-BNP 2022-10-26 07:58:00 Carlie Oconnor [facility] TROPONIN I 2022-10-26 07:58:00 Carlie Oconnor [facility] COMP. METABOLIC PANEL ([id number]) 2022-10-26 07:58:00 Carlie Oconnor [facility] CBC WITH DIFF 2022-10-26 07:58:00 Carlie Oconnor [facility] PROTHROMBIN TIME / INR 2022-10-26 07:58:00 Curtis Oconnor [facility] N-TERMINAL PRO-BNP 2022-10-26 07:58:00 Carlie Oconnor [facility] HB ECG ROUTINE & RHYTHM STRIP 2022-10-26 07:47:42 Carlie Oconnor [facility] HB ECG ROUTINE & RHYTHM STRIP 2022-10-26 07:47:42 Carlie Oconnor [facility] HB ECG ROUTINE & RHYTHM STRIP 2022-10-26 07:47:42 Carlie Oconnor [facility] CRITICAL CARE 2022-10-26 07:41:00 Carlie Oconnor [facility] CRITICAL CARE 2022-10-26 07:41:00 Carlie Oconnor [facility] CRITICAL CARE 2022-10-26 07:41:00 Carlie Oconnor [facility] POCT GLUCOSE (AUTOMATED) 2022-09-06 22:24:00 Rosa M Thomason [facility] POCT GLUCOSE (AUTOMATED) 2022-09-06 16:38:00 Rosa M Thomason [facility] POCT GLUCOSE (AUTOMATED) 2022-09-06 14:46:00 Rosa M Thomason [facility] TROPONIN I 2022-09-06 13:18:00 Girish Sales [facility] POCT GLUCOSE (AUTOMATED) 2022-09-06 12:31:00 Rosa M Thomasonizabela [facility] BASIC METABOLIC PANEL (NA, K, CL, CO2, GLUCOSE, BUN, CREATININE, CA) 2022-09-06 10:49:00 Girish Sales [facility] CBC WITHOUT DIFF 2022-09-06 10:49:00 Lucio Sales [facility] N-TERMINAL PRO-BNP 2022-09-06 10:49:00 Bela Ac [facility] POCT GLUCOSE (AUTOMATED) 2022-09-06 00:46:00 Rosa M Thomasonizabela [facility] POCT GLUCOSE (AUTOMATED) 2022-09-05 22:08:00 Rosa M Thomasonizabela [facility] POCT GLUCOSE (AUTOMATED) 2022-09-05 21:22:00 Rosa M Thomason [facility] POCT GLUCOSE (AUTOMATED) 2022-09-05 16:53:00 Rosa M Thomason [facility] BASIC METABOLIC PANEL (NA, K, CL, CO2, GLUCOSE, BUN, CREATININE, CA) 2022-09-05 10:53:00 Girish Sales [facility] CBC WITHOUT DIFF 2022-09-05 08:31:00 Lucio Sales [facility] POCT GLUCOSE (AUTOMATED) 2022-09-05 02:10:00 Rosa M Thomason [facility] POCT GLUCOSE (AUTOMATED) 2022-09-04 23:03:00 Rosa M Thomason [facility] POCT GLUCOSE (AUTOMATED) 2022-09-04 17:02:00 Rosa M Thomason [facility] POCT GLUCOSE (AUTOMATED) 2022-09-04 13:30:00 Rosa M Thomason [facility] MAGNESIUM 2022-09-04 10:25:00 [facility] Biggs [facility] BASIC METABOLIC PANEL (NA, K, CL, CO2, GLUCOSE, BUN, CREATININE, CA) 2022-09-04 10:25:00 Girish Sales [facility] CBC WITHOUT DIFF 2022-09-04 10:25:00 Lucio Sales [facility] POCT GLUCOSE (AUTOMATED) 2022-09-04 02:19:00 Rosa M Thomason [facility] POCT GLUCOSE (AUTOMATED) 2022-09-03 22:28:00 Rosa M Thomason [facility] TRANSTHORACIC ECHO (TTE) COMPLETE W/ CONTRAST 2022-09-03 20:18:52 Sunil [facility] TROPONIN I 2022-09-03 18:20:00 James Biggs [facility] POCT GLUCOSE (AUTOMATED) 2022-09-03 17:38:00 Rosa M Thomasonizabela [facility] POCT GLUCOSE (AUTOMATED) 2022-09-03 13:32:00 Rosa M Thomason [facility] MAGNESIUM 2022-09-03 10:30:00 James Biggs [facility] TROPONIN I 2022-09-03 10:30:00 James Biggs [facility] BASIC METABOLIC PANEL (NA, K, CL, CO2, GLUCOSE, BUN, CREATININE, CA) 2022-09-03 10:30:00 Sunil [facility] LIPID PANEL (79396)(TOTAL CHOLESTEROL, TRIGLYCERIDES, HDL) 2022-09-03 10:30:00 [facility] MAGNESIUM 2022-09-03 04:03:00 [facility] 2022-09-03 04:03:[address] [facility] TROPONIN I 2022-09-03 04:03:00 Biggs, James [facility] THYROID STIMULATING HORMONE 2022-09-03 04:03:00 James Biggs [facility] BASIC METABOLIC PANEL (NA, K, CL, CO2, GLUCOSE, BUN, CREATININE, CA) 2022-09-03 04:03:00 James Biggs [facility] IRON PANEL 2022-09-03 04:03:00 James Biggs [facility] CBC WITH DIFF 2022-09-03 04:03:00 James Biggs [facility] GLYCOSYLATED HEMOGLOBIN (A1C) 2022-09-03 04:03:00 Sunil [facility] N-TERMINAL PRO-BNP 2022-09-03 04:03:00 [facility] 2 [facility]W 2022-09-03 03:37:00 James Biggs [facility] POCT GLUCOSE (AUTOMATED) 2022-09-03 02:53:00 Rosa M Thomason [facility] ASSIGNMENT OF BENEFITS 2022-05-27 21:59:04 Docto r Unassigned, Ucon [facility] REFERRAL- REQUEST/RESPONSE 2022-05-16 06:01:00 Nita boucher Unassigned, [facility]con [facility] Ekg 2020-08-15 00:00:00 Surendra White Plan of Care Planned Activity Planned Date Details Comments Source Goal Plan of Care Note [code = 75161-9] Goal Plan of Care Note [code = 34052-3] Goal Plan of Care Note [code = 32932-4] Goal Plan of Care Note [code = 94446-3] Goal Plan of Care Note [code = 69762-5] Goal Plan of Care Note [code = 49369-9] Goal Plan of Care Note [code = 20212-7] Goal Plan of Care Note [code = 64747-7] Goal Plan of Care Note [code = 51561-1] Goal Plan of Care Note [code = 07889-6] Goal Plan of Care Note [code = 21571-2] Goal Plan of Care Note [code = 63162-2] Goal Plan of Care Note [code = 06780-1] Goal Plan of Care Note [code = 99374-6] Goal Plan of Care Note [code = 48880-7] Goal Plan of Care Note [code = 44953-3] Goal Plan of Care Note [code = 69040-6] Goal Plan of Care Note [code = 52646-1] Goal Plan of Care Note [code = 49013-6] Goal Plan of Care Note [code = 45003-6] Goal Plan of Care Note [code = 27436-7] Goal Plan of Care Note [code = 69471-0] Goal Plan of Care Note [code = 43142-9] Goal Plan of Care Note [code = 30382-7] Goal Plan of Care Note [code = 25795-2] Goal Plan of Care Note [code = 13587-0] Goal Plan of Care Note [code = 50226-9] Goal Plan of Care Note [code = 48073-9] Goal Plan of Care Note [code = 39891-2] Goal Plan of Care Note [code = 54317-3] Goal Plan of Care Note [code = 33590-4] Goal Plan of Care Note [code = 58553-9] Goal Plan of Care Note [code = 15480-1] Goal Plan of Care Note [code = 57207-6] Goal Plan of Care Note [code = 80143-9] Goal Plan of Care Note [code = 21829-8] Goal Plan of Care Note [code = 91630-7] Goal Plan of Care Note [code = 49440-3] Goal Plan of Care Note [code = 20511-9] Goal Plan of Care Note [code = 28339-9] Goal Plan of Care Note [code = 67800-1] Goal Plan of Care Note [code = 75809-9] Goal Plan of Care Note [code = 01248-2] Goal Plan of Care Note [code = 83956-8] Goal Plan of Care Note [code = 75227-1] Goal Plan of Care Note [code = 79462-8] Goal Plan of Care Note [code = 82339-2] Goal Plan of Care Note [code = 72308-7] Goal Plan of Care Note [code = 11970-1] Goal Plan of Care Note [code = 96582-9] Goal Plan of Care Note [code = 13716-8] Goal Plan of Care Note [code = 72524-0] Goal Plan of Care Note [code = 53859-9] Goal Plan of Care Note [code = 22926-9] Goal Plan of Care Note [code = 81560-8] Goal Plan of Care Note [code = 71630-9] Goal Plan of Care Note [code = 45474-8] Goal Plan of Care Note [code = 42074-2] Goal Plan of Care Note [code = 98149-0] Goal Plan of Care Note [code = 91547-1] Goal Plan of Care Note [code = 15115-7] Goal Plan of Care Note [code = 55376-5] Goal Plan of Care Note [code = 62665-7] Goal Plan of Care Note [code = 82868-7] Goal Plan of Care Note [code = 02108-0] Goal Plan of Care Note [code = 52161-6] Encounters Start Date/Time End Date/Time Encounter Type Admission Type Attending [facility] Care Department Encounter ID Source 2024-06-09 00:00:00 2024-06-09 10:42:41 Transition of Care Nakul Hansen Michele [facility] 1..840.114 350.1.13.10 4.2.7.2.686 [id number] [facility] 2024-05-24 18:42:00 2024-06-08 17:43:00 Inpatient X BERTO ROMAN [facility] [id number] [facility] 2024-05-24 18:42:00 2024-06-08 17:43:00 Hospital Encounter Jewel Sexton Jelani Edionwe, [facility] ..840.114 350.1.13.10 4.2.7.2.686 [id number] [facility] 2024-05-16 14:34:20 2024-05-16 14:34:[address] [facility] [id number] Surendra Ross Christopher 2024-05-16 00:00:00 2024-05-16 00:00:[address] [facility] [id number] Surendra White 2024-05-05 12:54:22 2024-05-05 23:59:00 [facility] [id number] [facility] 2024-05-05 12:54:22 2024-05-05 23:59:00 Hospital Encounter Michele [facility] AT SUSANNA MARTINEZ 1..840.114 350.1.13.10 4.2.7.2.686 [id number] [facility] 2024-05-02 00:00:00 2024-05-02 16:40:41 Telephone Wilver Baker [facility] 1..840.114 350.1.13.10 4.2.7.2.686 [id number] [facility] 2024-04-26 00:00:00 2024-04-26 00:00:00 [facility] [id number] [facility] 2024-03-10 00:00:00 2024-03-11 10:13:05 Telephone Wilman Mcdonald [facility] 1..840.114 350.1.13.10 4.2.7.2.686 [id number] [facility] 2024-03-10 07:52:00 2024-03-10 13:15:00 Outpatient R RENUKAAWAIS STRANGE [facility] [id number] [facility] 2024-03-10 07:52:00 2024-03-10 13:15:00 Hospital Encounter Jamey Betheasitajagjit [facility] 1..840.114 350.1.13.10 4.2.7.2.686 [id number] [facility] 2024-03-10 07:52:00 2024-03-10 13:15:00 Inpatient R AWAIS BETHEA MUHIE [facility] [id number] [facility] 2024-03-10 09:30:00 2024-03-10 10:30:00 Surgery Awais Bethea [facility] 1.2.840.114 350.1.13.10 4.2.7.2.686 [id number] [facility] 2024-03-10 07:30:00 2024-03-10 07:51:00 Hospital Encounter Awais Bethea [facility] 1.2.840.114 350.1.13.10 4.2.7.2.686 [id number] [facility] 2024-03-08 12:00:00 2024-03-08 12:15:00 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, Adc Lab Wilman Lopez, Adc Lab Main [facility] 1.2.840.114 350.1.13.10 4.2.7.2.686 [id number] [facility] 2024-03-08 12:00:00 2024-03-08 12:00:00 Outpatient WILMAN GAMEZ [facility] [id number] [facility] 2024-03-07 00:00:00 2024-03-07 10:06:33 Telephone Awais Bethea [facility] 1.2.840.114 350.1.13.10 4.2.7.2.686 [id number] [facility] 2024-03-04 00:00:00 2024-03-04 12:33:44 Telephone Awais Bethea [facility] 1.2.840.114 350.1.13.10 4.2.7.2.686 [id number] [facility] 2024-03-04 11:30:2024-03-04 12:00:00 Office Visit Wilver Baker [facility] 1.2.840.114 350.1.13.10 4.2.7.2.686 [id number] [facility] 2024-03-04 11:30:00 2024-03-04 11:30:00 Outpatient R WILVER BAKER [facility] [id number] [facility] 2024-03-01 13:40:00 2024-03-01 13:40:00 Outpatient LALIT LINARES [facility] [id number] [facility] 2024-02-11 10:13:13 2024-02-11 10:13:13 Outpatient [facility] [id number] Surendra White 2024-02-11 00:00:00 2024-02-11 00:00:[address] [facility] [id number] Surendra White 2023-12-18 00:00:00 2024-01-23 18:23:55 Patient Secure Msg Doctor Unassigned, Ucon Doctor Unassigned, Ucon [facility] 1.2.840.114 350.1.13.10 4.2.7.2.686 [id number] [facility] 2024-01-07 09:57:00 2024-01-07 09:57:00 Outpatient [facility] [id number] Surendra White 2024-01-07 00:00:00 2024-01-07 00:00:[address] [facility] [id number] Surendra Ross Christopher 2023-12-30 12:01:00 2023-12-30 17:31:00 Emergency X DARSHAN, JEWEL SANTIZO [facility] [id number] [facility] 2023-12-30 12:01:00 2023-12-30 17:31:00 Emergency Darshan Jewel [facility] 1.2.840.114 350.1.13.10 4.2.7.2.686 [id number] [facility] 2023-12-29 15:00:00 2023-12-29 15:00:00 Outpatient LALIT LINARES HOW[facility] [id number] [facility] 2023-12-23 00:00:00 2023-12-23 14:04:21 Letter (Out) Massiel Mccoy i [facility] 1.2.840.114 350.1.13.10 4.2.7.2.686 [id number] [facility] 2023-12-18 11:20:00 2023-12-18 11:20:00 Outpatient R [facility] [id number] [facility] 2023-12-17 14:45:50 2023-12-17 14:45:50 Outpatient SFA [facility] [id number] Surendra White 2023-12-17 00:00:00 2023-12-17 00:00:00 Outpatient Visit [facility] [id number] Surendra White 2023-12-11 16:20:00 2023-12-11 16:20:00 Outpatient R EZE SANTIAGO [facility] [id number] [facility] 2023-12-10 15:51:26 2023-12-10 15:51:26 Outpatient SFA [facility] [id number] Surendra White 2023-12-10 00:00:00 2023-12-10 00:00:00 Outpatient Visit [facility] [id number] Surendra White 2023-12-08 00:00:00 2023-12-09 09:50:58 Telephone Eze Santiago Dori [facility] [place] ..840.114 350.1.13.10 4.2.7.2.686 [id number] [facility] 2023-12-01 13:20:00 2023-12-01 13:20:00 Outpatient LALIT LINARES [facility] [id number] [facility] 2023-11-12 13:47:03 2023-11-12 13:47:03 Outpatient [facility] [id number] Surendra White 2023-11-12 00:00:00 2023-11-12 00:00:[address] [facility] [id number] Surendra White 2023-10-27 00:00:00 2023-10-27 10:54:34 Transition of Care Arlene Hoffman 1..840.114 350.1.13.10 4.2.7.2.686 [id number] [facility] 2023-10-21 22:03:00 2023-10-26 17:13:00 Inpatient ANGEL LUIS LOUISE [facility] [id number] [facility] 2023-10-21 22:03:00 2023-10-26 17:13:00 Hospital Encounter Vinh Foreman Mohammad A. [facility] ..840.114 350.1.13.10 4.2.7.2.686 [id number] [facility] 2023-10-26 15:00:00 2023-10-26 15:00:00 Outpatient LALIT LINARES [facility] [id number] [facility] 2023-10-26 13:21:44 2023-10-26 13:21:[address] [facility] [id number] Surendra White 2023-10-23 10:30:00 2023-10-23 10:30:00 Outpatient SURENDRA ALVAREZ [facility] [id number] [facility] 2023-09-03 00:00:00 2023-10-10 18:12:33 Patient Secure Msg Doctor Unassigned, Ucon [facility] 1.2840.114 350.1.13.10 4.2.7.2.686 [id number] [facility] 2023-09-19 00:00:00 2023-09-21 08:12:04 Refill Bela Ac [facility] MEDICAL OFFICE BUILDING 1.840.114 350.1.13.10 4.2.7.2.686 [id number] [facility] 2023-09-04 11:00:00 2023-09-04 11:00:00 Outpatient SURENDRA ALVAREZ [facility] [id number] [facility] 2023-08-25 16:45:06 2023-08-25 16:45:06 Outpatient [facility] [id number] Surendra Ross [place] 2023-08-25 00:00:00 2023-08-25 00:00:[address] [facility] [id number] Surendra Ross Christopher 2023-08-06 15:38:46 2023-08-06 15:38:46 Outpatient [facility] [id number] Surendra Ross [place] 2023-07-28 00:00:00 2023-07-28 00:00:00 Orders Only Doctor Unassigned, Ucon [facility] 1.840.114 350.1.13.10 4.2.7.2.686 [id number] [facility] 2023-07-27 14:20:00 2023-07-27 14:20:00 Outpatient R [facility] [id number] [facility] 2023-07-09 18:38:00 2023-07-09 21:52:00 Emergency X JOSUE HODGES [facility] ERT [id number] [facility] 2023-07-09 18:38:00 2023-07-09 21:52:00 Emergency Josue Hodges [facility] .2.840.114 350.1.13.10 4.2.7.2.686 [id number] [facility] 2023-07-09 16:19:13 2023-07-09 16:19:13 Outpatient [facility] [id number] Surendra White 2023-07-09 00:00:00 2023-07-09 00:00:[address] 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 Pob, Adc Lab Main Eze Santiago [facility] 1.2.840.114 350.1.13.10 4.2.7.2.686 [id number] [facility] 2023-04-29 13:30:00 2023-04-29 13:30:00 Outpatient ALYSSA CANTUY [facility] [id number] [facility] 2023-04-29 11:45:16 2023-04-29 11:45:16 Outpatient [facility] [id number] Surendra White 2023-04-28 16:27:53 2023-04-28 16:27:53 Outpatient [facility] [id number] Surendra White 2023-04-02 10:50:14 2023-04-02 10:50:14 Outpatient [facility] [id number] Surendra White 2023 13:19:00 2023 18:56:00 Emergency X Clark JULIAN [facility] ERT [id number] [facility] 2023 13:19:00 2023 18:56:00 Emergency Clark Julian [facility] 1.2.840.114 350.1.13.10 4.2.7.2.686 [id number] [facility] 2023-03-28 00:00:00 2023-03-28 00:00:00 Patient Secure Msg Doctor Unassigned, Ucon [facility] 1.2840.114 350.1.13.10 4.2.7.2.686 [id number] [facility] 2023-03-23 13:40:00 2023-03-23 14:20:00 Office Visit Eze Santiago [facility] MEDICAL OFFICE BUILDING 1.2.840.114 350.1.13.10 4.2.7.2.686 [id number] [facility] 2023-03-23 13:40:00 2023-03-23 13:40:00 Outpatient EZE CANTU [facility] [id number] [facility] 2023-03-23 00:00:00 2023-03-23 00:00:00 Orders Only Doctor Unassigned, Ucon [facility] 1.2840.114 350.1.13.10 4.2.7.2.686 [id number] [facility] 2023-03-17 14:30:00 2023-03-17 14:30:00 Outpatient GIRISH HEAD [facility] [id number] [facility] 2023-03-17 00:00:00 2023-03-17 00:00:00 Outpatient GC_GCBZW_Ka diyala_S PRIV PRIV [id number] [facility] 2023-03-16 00:00:00 2023-03-16 00:00:00 Outpatient GC_GCBZW_Ka diyala_S PRIV PRIV [id number] [facility] 2023-03-02 00:00:00 2023-03-02 00:00:00 Patient Secure Msg Doctor Unassigned, Ucon [facility] 1.2840.114 350.1.13.10 4.2.7.2.686 [id number] [facility] 2023-02-24 00:00:00 2023-02-24 00:00:00 Patient Secure Msg Doctor Unassigned, Ucon [facility] 1.2840.114 350.1.13.10 4.2.7.2.686 [id number] [facility] 2023-02-20 00:00:00 2023-02-20 00:00:00 Transition of Care Rosaura Mariscal [facility] 1.2840.114 350.1.13.10 4.2.7.2.686 [id number] [facility] 2023-02-02 14:37:00 2023-02-18 15:30:00 Inpatient U WHITNEY, ANA PAULA BERRY, [facility] [id number] [facility] 2023-02-02 14:37:00 2023-02-18 15:30:00 Hospital Encounter Brandon Shelton, Carlos Berry, [facility] ([facility]) 1.2840.114 350.1.13.10 4.2.7.2.686 [id number] [facility] 2023-02-16 20:03:49 2023-02-16 20:03:49 Anesthesia Event [facility] ([facility]) 1.2.840.114 350.1.13.10 4.2.7.2.686 [id number] [facility] 2023-02-09 20:03:43 2023-02-09 20:03:43 Anesthesia Event [facility] ([facility]) 1.2.840.114 350.1.13.10 4.2.7.2.686 [id number] [facility] 2023-02-04 00:00:00 2023-02-04 00:00:00 Travel 1.2.840.1 71920.1.1 3.104.2.7 .3.359430 .8 1.2.840.114 350.1.13.10 4.2.7.3.698 084.8 [id number] [facility] 2023-02-02 00:00:00 2023-02-02 00:00:00 Travel 1.2.840.1 45977.1.1 3.104.2.7 .3.540360 .8 1.2.840.114 350.1.13.10 4.2.7.3.698 084.8 [id number] [facility] 2023-01-12 11:00:00 2023-01-12 11:00:00 Outpatient FAHEEM MARTINEZ [facility] [id number] [facility] 2023-01-12 00:00:00 2023-01-12 00:00:00 Orders Only Doctor Unassigned, Ucon [facility] 1.2.840.114 350.1.13.10 4.2.7.2.686 [id number] [facility] 2022-12-18 17:03:38 2022-12-18 17:03:38 Outpatient KALPANA ACUNA [id number] Surendra White 2022-11-27 10:30:00 2022-11-27 10:30:00 Outpatient FAHEEM MARTINEZ [facility] [id number] [facility] 2022-11-10 00:00:00 2022-11-10 00:00:00 Transition of Care Arlene Hoffman 1.2.840.1 84282.1.1 3.104.2.7 .3.316791 .8 [id number] [facility] 2022-10-26 02:43:00 2022-11-07 14:30:00 Hospital Encounter Elvin Carlie Raymond, Angel Luis Abreu, Kvng Abbe Walters 1.2.840.1 61600.1.1 3.104.2.7 .3.977899 .8 [id number] [facility] 2022-10-26 02:43:00 2022-11-07 14:30:00 Inpatient Ann GUEROBRIANNA ABBE SINGH [facility] [id number] [facility] 2022-10-31 09:30:00 2022-10-31 11:30:00 Surgery [facility] ([facility]) 1.2.840.114 350.1.13.10 4.2.7.2.686 [id number] [facility] 2022-10-28 10:30:00 2022-10-28 13:30:00 Surgery [facility] ([facility]) 1.2.840.114 350.1.13.10 4.2.7.2.686 [id number] [facility] 2022-10-15 16:42:13 2022-10-15 16:42:13 Outpatient [facility] [id number] Surendra White 2022-10-14 13:20:00 2022-10-14 13:20:00 Outpatient LALIT LINARES HOW[facility] [id number] [facility] 2022-09-29 00:00:00 2022-09-29 00:00:00 Telephone Lalit Perez [facility] 1.2.840.114 350.1.13.10 4.2.7.2.686 [id number] [facility] 2022-09-15 15:43:42 2022-09-15 15:43:42 Outpatient SFA [facility] [id number] Surendra White 2022-09-10 00:00:00 2022-09-10 00:00:00 [facility] 1.2840.114 350.1.13.10 4.2.7.2.686 [id number] [facility] 2022-09-09 16:30:00 2022-09-09 16:30:00 Outpatient ALBERTA HEIN [facility] [id number] [facility] 2022-09-09 00:00:00 2022-09-09 00:00:00 Patient Secure Msg Doctor Unassigned, Ucon [facility] 1.840.114 350.1.13.10 4.2.7.2.686 [id number] [facility] 2022-09-08 00:00:00 2022-09-08 00:00:00 Transition of Care Arlene Hoffman [facility] 1.840.114 350.1.13.10 4.2.7.2.686 [id number] [facility] 2022-09-02 21:16:00 2022-09-06 18:59:00 Inpatient [facility] [id number] [facility] 2022-09-02 21:16:00 2022-09-06 18:59:00 Hospital Encounter Vince Thomason [facility] ([facility]) 1..114 350.1.13.10 4.2.7.2.686 [id number] [facility] 2022-09-02 16:30:00 2022-09-02 16:30:00 Outpatient ALBERTA HEIN [facility] [id number] [facility] 2022-08-19 08:42:21 2022-08-19 08:42:21 Outpatient [facility] [id number] Surendra White 2022-05-27 16:00:00 2022-05-27 16:56:43 Outpatient LALIT LINARES [facility] [id number] [facility] 2022-05-27 16:00:00 2022-05-27 16:56:43 [facility] 1.2.840.114 350.1.13.10 4.2.7.2.686 [id number] [facility] 2022-05-27 00:00:00 2022-05-27 00:00:00 Orders Only Doctor Unassigned, Ucon [address].840.114 350.1.13.10 4.2.7.2.686 [id number] [facility] 2022-05-16 00:00:00 2022-05-16 00:00:00 Orders Only Doctor Unassigned, Ucon [address].840.114 350.1.13.10 4.2.7.2.686 [id number] [facility] 2022-05-06 08:00:00 2022-05-06 08:00:00 Outpatient LALIT LINARES [facility] [id number] [facility] 2022-05-02 15:20:00 2022-05-02 15:20:00 Outpatient LALIT LINARES [facility] [id number] [facility] 2022-04-03 00:00:00 2022-04-03 00:00:00 Outpatient Visit [id number] 2022-02-18 16:39:55 2022-02-18 16:39:[address] [facility] [id number] Surendra White 2022-02-18 00:00:00 2022-02-18 00:00:00 Outpatient Visit [id number] 2022-02-14 16:00:00 2022-02-14 16:00:00 Outpatient LALIT LINARES [facility] [id number] [facility] 2022-01-31 16:40:00 2022-01-31 17:00:00 Office Visit Provider, [facility] 1.2.840.114 350.1.13.10 4.2.7.2.686 [id number] [facility] 2022-01-31 16:40:00 2022-01-31 16:40:00 Outpatient Shawanda CEDENO SELENA [facility] [id number] [facility] 2022-01-31 16:40:00 2022-01-31 16:40:00 Outpatient SELENA HENDRICKS [facility] [id number] [facility] 2022-01-03 00:00:00 2022-01-03 00:00:00 Outpatient Visit [id number] 2021-12-24 00:00:00 2021-12-24 00:00:00 Outpatient Visit [id number] 2021-10-21 00:00:00 2021-10-21 00:00:00 Orders Only Doctor Unassigned, Ucon [facility] 1.2.840.114 350.1.13.10 4.2.7.2.686 [id number] [facility] 2021-09-09 00:00:00 2021-09-09 00:00:00 Orders Only Doctor Unassigned, Ucon [facility] 1.2840.114 350.1.13.10 4.2.7.2.686 [id number] [facility] 2021-07-10 15:20:00 2021-07-10 15:20:00 Outpatient R TIMMY [facility] [id number] [facility] 2021-06-19 15:40:00 2021-06-19 15:40:00 Outpatient Shawanda WARNER [facility] [id number] [facility] 2021-05-16 00:00:00 2021-05-16 00:00:00 Orders Only Doctor Unassigned, Ucon [facility] 1.2840.114 350.1.13.10 4.2.7.2.686 [id number] [facility] 2021-04-09 19:22:58 2021-04-09 23:59:00 Hospital Encounter [facility] 1..840.114 350.1.13.10 4.2.7.2.686 [id number] [facility] 2021-04-09 19:22:57 2021-04-09 23:59:00 Hospital Encounter [facility] [place] 1.840.114 350.1.13.10 4.2.7.2.686 [id number] [facility] 2021-04-09 19:03:28 2021-04-09 19:49:57 Urgent Care [facility] [place]?[facility] 1.2.840.114 350.1.13.10 4.2.7.2.686 [id number] [facility] 2021-04-09 19:00:00 2021-04-09 19:49:57 Outpatient CECE [facility] [id number] [facility] 2021-04-09 00:00:00 2021-04-09 00:00:00 Letter (Out) Doctor Unassigned, Ucon [facility] 1.2.840.114 350.1.13.10 4.2.7.2.686 [id number] [facility] 2021-04-03 00:00:00 2021-04-03 00:00:00 Orders Only Doctor Unassigned, Ucon [facility] 1..840.114 350.1.13.10 4.2.7.2.686 [id number] [facility] Results Test Description Test Time Test Comments Results Result Co mments Source [facility] GLUCOSE (AUTOMATED)2024-06-08 17:28:43* Test Item Value Reference Range Interpretation Comme nts POCT GLU (test code = 2028918149) 209 mg/dL 70-110 H Lab Interpretation (test cod e = 09423-6) Abnormal [facility] GLUCOSE (AUTOMATED)2024-06-08 13:20:07* Test Item Value Reference Range Interpretation Comme nts POCT GLU (test code = 1542429303) 127 mg/dL 70-110 H Lab Interpretation (test cod e = 97376-2) Abnormal [facility] GLUCOSE (AUTOMATED)2024-06-08 02:01:38* Test Item Value Reference Range Interpretation Comme nts POCT GLU (test code = 4578526795) 192 mg/dL 70-110 H Lab Interpretation (test cod e = 93559-4) Abnormal [facility] GLUCOSE (AUTOMATED)2024-06-07 22:20:38* Test Item Value Reference Range Interpretation Comme nts POCT GLU (test code = 5048274933) 191 mg/dL 70-110 H Lab Interpretation (test cod e = 45671-6) [facility] 17:26:11* Test Item Value Reference Range Interpretation Comme nts POCT GLU (test code = 0003688878) 326 mg/dL 70-110 H Lab Interpretation (test cod e = 24093-6) [facility]24-[facility]-07 13:33:11* Test Item Value Reference Range Interpretation Comme nts POCT GLU (test code = 4088409608) 139 mg/dL 70-110 H Lab Interpretation (test cod e = 06683-0) [facility]24-[facility]-07 02:10:39* Test Item Value Reference Range Interpretation Comme nts POCT GLU (test code = 3953285052) 210 mg/dL 70-110 H Lab Interpretation (test cod e = 71856-7) Abnormal [facility] GLUCOSE (AUTOMATED)2024-06-06 22:23:04* Test Item Value Reference Range Interpretation Comme nts POCT GLU (test code = 6895764056) 207 mg/dL 70-110 H Lab Interpretation (test cod e = 20106-2) [facility]24-[facility]-06 17:52:03* Test Item Value Reference Range Interpretation Comme nts POCT GLU (test code = 3384522342) 239 mg/dL 70-110 H Lab Interpretation (test cod e = 42920-9) [facility]2024-[facility]-06 14:02:02* Test Item Value Reference Range Interpretation Comme nts POCT GLU (test code = 0562670097) 177 mg/dL 70-110 H Lab Interpretation (test cod e = 21078-6) [facility]2024-[facility]-06 03:51:01* Test Item Value Reference Range Interpretation Comme nts POCT GLU (test code = 7954899020) 209 mg/dL 70-110 H Lab Interpretation (test cod e = 36877-6) Abnormal [facility] GLUCOSE (AUTOMATED)2024-06-05 22:25:01* Test Item Value Reference Range Interpretation Comme nts POCT GLU (test code = 1398120851) 299 mg/dL 70-110 H Lab Interpretation (test cod e = 82701-4) Abnormal [facility] GLUCOSE (AUTOMATED)2024-06-05 17:44:31* Test Item Value Reference Range Interpretation Comme nts POCT GLU (test code = 4710724078) 231 mg/dL 70-110 H Lab Interpretation (test cod e = 77578-6) Abnormal [facility] GLUCOSE (AUTOMATED)2024-06-05 13:37:34* Test Item Value Reference Range Interpretation Comme [facility] POCT GLU (test code = 8652050410) 70 mg/dL 70-110 Lab Interpretation (test cod e = 26055-7) Normal [facility] Metabolic Panel (NA, K, CL, CO2, GLUCOSE, BUN, CREATININE, CA)2024-06-05 10:49:29* Test Item Value Reference Range Interpretation Comme nts NA (test code = 1188485162) 134 mmol/L 135-145 L K (test code = 6806386525) 4.0 mmol/L 3.5-5.0 CL (test code = 6891545088) 101 mmol/L 98-108 CO2 TOTAL (test code = 1871221134) 33 mmol/L 23-31 H AGAP (test code = 8687811170) 2-16 L BUN (test code = 3540173368) 23 mg/dL 7-23 GLUCOSE (test code = 5531474540) 92 mg/dL 70-110 CREATININE (test code = 2160-0) 0.73 mg/dL 0.50-1.04 CALCIUM (test code = 2373944989) 8.9 mg/dL 8.6-10.6 eGFR (test code = 42270-2) 83.8 mL/min/1.73m2 CKD-EPI eGFR (2020). Assuming creatinine has been stable day-to-day for at least three months, the eGFR indicates Category G2 (60 - 89 mL/min/1.73 m2) Lab Interpretation (test code = 58046-1) [facility] 10:41:34* Test Item Value Reference Range Interpretation Comme [facility] MAGNESIUM (test code = 3563009845) 1.8 mg/dL 1.7-2.4 Lab Interpretation (test cod e = 26967-4) [facility]25-[facility] 10:41:14* Test Item Value Reference Range Interpretation Comme nts PHOSPHORUS (test code = 5691075086) 3.6 mg/dL 2.5-5.0 Lab Interpretation (test cod e = 69465-0) [facility] [id number] 10:14:33* Test Item Value Reference Range Interpretation [...] 777-3) 233 166-358 MPV (test code = 06190-6) 9.6 fL 9.5-12.9 RDW-CV (test code = 788-0) 13.3 % 12.0-15.5 RDW-SD (test code = 34328-2) 45.1 fL 39.0-49.9 NRBC x10^3 (test code = 2000397728) See_Comment [Automated messa ge] The system which generated this result transmitted reference range: 10*3/?L. The reference range was not used to interpret this result as normal/abnormal. NRBC/100 WBC (test code = 9853726232) 0.0 0.0-10.0 IPF % (test code = 4536090791) Lab Interpretation (test code = 69088-3) [facility]24-[facility]05 02:11:27* Test Item Value Reference Range Interpretation Comme nts POCT GLU (test code = 7064822362) 269 mg/dL 70-110 H Lab Interpretation (test cod e = 18164-6) Abnormal [facility] GLUCOSE (AUTOMATED)2024-06-04 22:24:58* Test Item Value Reference Range Interpretation Comme nts POCT GLU (test code = 0475005851) 254 mg/dL 70-110 H Lab Interpretation (test cod e = 88650-8) Abnormal [facility] GLUCOSE (AUTOMATED)2024-06-04 17:27:59* Test Item Value Reference Range Interpretation Comme nts POCT GLU (test code = 2419292142) 217 mg/dL 70-110 H Lab Interpretation (test cod e = 82366-6) Abnormal [facility] GLUCOSE (AUTOMATED)2024-06-04 13:40:27* Test Item Value Reference Range Interpretation Comme nts POCT GLU (test code = 7427527844) 101 mg/dL 70-110 Lab Interpretation (test cod e = 88860-3) Normal [facility] GLUCOSE (AUTOMATED)2024-06-04 11:19:57* Test Item Value Reference Range Interpretation Comme nts POCT GLU (test code = 1059076803) 107 mg/dL 70-110 Lab Interpretation (test cod e = 54830-8) [facility]25-[facility]18 10:11:11* Test Item Value Reference Range Interpretation Comme nts MAGNESIUM (test code = 8635732312) 1.9 mg/dL 1.7-2.4 Lab Interpretation (test cod e = 36894-7) Normal [facility] Metabolic Panel (NA, K, CL, CO2, GLUCOSE, BUN, CREATININE, CA)2024-06-04 10:10:51* Test Item Value Reference Range Interpretation Comme nts NA (test code = 4922667556) 133 mmol/L 135-145 L K (test code = 7239622306) 3.8 mmol/L 3.5-5.0 CL (test code = 6395227326) 101 mmol/L 98-108 CO2 TOTAL (test code = 2447963842) 31 mmol/L 23-31 AGAP (test code = 0971193669) 1 2-16 L BUN (test code = 3374030891) 27 mg/dL 7-23 H GLUCOSE (test code = 2750935168) 55 mg/dL 70-110 L CREATININE (test code = 2160-0) 0.59 mg/dL 0.50-1.04 CALCIUM (test code = 2965531568) 8.9 mg/dL 8.6-10.6 eGFR (test code = 42742-8) 91.8 mL/min/1.73m2 CKD-EPI eGFR (2020). Assuming creatinine has been stable day-to-day for at least three months, the eGFR indicates Category G1 (>= 90 mL/min/1.73 m2) Lab Interpretation (test code = 45440-0) [facility]2025-[facility] 10:10:51* Test Item Value Reference Range Interpretation Comme nts PHOSPHORUS (test code = 2970768215) 4.1 mg/dL 2.5-5.0 Lab Interpretation (test cod e = 64583-0) [facility] [id number] 09:55:09* Test Item Value Reference Range Interpretation [...] 777-3) 248 166-358 MPV (test code = 06134-9) 9.6 fL 9.5-12.9 RDW-CV (test code = 788-0) 13.3 % 12.0-15.5 RDW-SD (test code = 67194-7) 45.4 fL 39.0-49.9 NRBC x10^3 (test code = 0090408694) See_Comment [Automated messa ge] The system which generated this result transmitted reference range: 10*3/?L. The reference range was not used to interpret this result as normal/abnormal. NRBC/100 WBC (test code = 9761812602) 0.0 0.0-10.0 IPF % (test code = 7684404079) Lab Interpretation (test code = 75465-5) Abnormal [facility] GLUCOSE (AUTOMATED)2024-06-04 01:59:56* Test Item Value Reference Range Interpretation Comme nts POCT GLU (test code = 3948176385) 256 mg/dL 70-110 H Lab Interpretation (test cod e = 76838-0) Abnormal [facility] GLUCOSE (AUTOMATED)2024-06-03 22:22:22* Test Item Value Reference Range Interpretation Comme nts POCT GLU (test code = 4429427223) 223 mg/dL 70-110 H Lab Interpretation (test cod e = 38410-2) Abnormal [facility] GLUCOSE (AUTOMATED)2024-06-03 17:31:53* Test Item Value Reference Range Interpretation Comme nts POCT GLU (test code = 0775839197) 224 mg/dL 70-110 H Lab Interpretation (test cod e = 69805-0) Abnormal [facility] GLUCOSE (AUTOMATED)2024-06-03 13:38:53* Test Item Value Reference Range Interpretation Comme nts POCT GLU (test code = 0224478428) 121 mg/dL 70-110 H Lab Interpretation (test cod e = 49495-5) Abnormal [facility] GLUCOSE (AUTOMATED)2024-06-03 02:14:18* Test Item Value Reference Range Interpretation Comme nts POCT GLU (test code = 4074267853) 275 mg/dL 70-110 H Lab Interpretation (test cod e = 37801-3) Abnormal [facility] GLUCOSE (AUTOMATED)2024-06-02 22:20:21* Test Item Value Reference Range Interpretation Comme nts POCT GLU (test code = 7480286262) 311 mg/dL 70-110 H Lab Interpretation (test cod e = 19838-5) Abnormal [facility] GLUCOSE (AUTOMATED)2024-06-02 17:26:20* Test Item Value Reference Range Interpretation Comme nts POCT GLU (test code = 4522167648) 207 mg/dL 70-110 H Lab Interpretation (test cod e = 12792-8) Abnormal [facility] GLUCOSE (AUTOMATED)2024-06-02 13:42:53* Test Item Value Reference Range Interpretation Comme nts POCT GLU (test code = 8418952928) 121 mg/dL 70-110 H Lab Interpretation (test cod e = 03683-5) Abnormal [facility] GLUCOSE (AUTOMATED)2024-06-02 02:30:21* Test Item Value Reference Range Interpretation Comme nts POCT GLU (test code = 2894778709) 265 mg/dL 70-110 H Lab Interpretation (test cod e = 92013-8) Abnormal [facility] GLUCOSE (AUTOMATED)2024-06-01 22:40:16* Test Item Value Reference Range Interpretation Comme nts POCT GLU (test code = 0562943971) 299 mg/dL 70-110 H Lab Interpretation (test cod e = 16362-9) Abnormal [facility] GLUCOSE (AUTOMATED)2024-06-01 17:33:17* Test Item Value Reference Range Interpretation Comme nts POCT GLU (test code = 5057155662) 260 mg/dL 70-110 H Lab Interpretation (test cod e = 25998-7) Abnormal [facility] GLUCOSE (AUTOMATED)2024-06-01 14:14:19* Test Item Value Reference Range Interpretation Comme nts POCT GLU (test code = 6123332901) 118 mg/dL 70-110 H Lab Interpretation (test cod e = 47066-8) Abnormal [facility] GLUCOSE (AUTOMATED)2024-06-01 13:41:47* Test Item Value Reference Range Interpretation Comme nts POCT GLU (test code = 3634636332) 125 mg/dL 70-110 H Lab Interpretation (test cod e = 25554-3) [facility]2024-[facility]-01 07:21:20* Test Item Value Reference Range Interpretation Comme nts POCT GLU (test code = 6119980495) 180 mg/dL 70-110 H Lab Interpretation (test cod e = 17747-7) Abnormal [facility] GLUCOSE (AUTOMATED)2024-06-01 01:33:50* Test Item Value Reference Range Interpretation Comme nts POCT GLU (test code = 4984806246) 362 mg/dL 70-110 H Lab Interpretation (test cod e = 98497-7) Abnormal [facility] GLUCOSE (AUTOMATED)2024-05-31 22:31:50* Test Item Value Reference Range Interpretation Comme [facility] POCT GLU (test code = 7244416171) 343 mg/dL 70-110 H Lab Interpretation (test cod e = 66386-8) Abnormal [facility] GLUCOSE (AUTOMATED)2024-05-31 13:44:16* Test Item Value Reference Range Interpretation Comme [facility] POCT GLU (test code = 2989190625) 106 mg/dL 70-110 Lab Interpretation (test cod e = 35589-8) Normal [facility] with [id number] 13:19:47* Test Item Value Reference Range Interpretation Comme [facility] WBC (test code = 6690-2) 16.09 4.30-11.10 H RBC (test code = 789-8) 4.14 3.93-5.25 HGB (test code = 718-7) 12.9 g/dL 11.6-15.0 HCT (test code = 4544-3) 38.8 % 35.7-45.2 MCV (test code = 787-2) 93.7 fL 80.6-95.5 MCH (test code = 785-6) 31.2 pg 25.9-32.8 MCHC (test code = 786-4) 33.2 g/dL 31.6-35.1 RDW-SD (test code = 06908-5) 44.6 fL 39.0-49.9 RDW-CV (test code = 788-0) 13.0 % 12.0-15.5 PLT (test code = 777-3) 272 166-358 MPV (test code = 62237-6) 9.6 fL 9.5-12.9 NRBC/100 WBC (test code = 7519399247) 0.0 0.0-10.0 NRBC x10^3 (test code = 2068051804) See_Comment [Automated message] The system which generated this result transmitted reference range: 10*3/?L. The reference range was not used to interpret this result as normal/abnormal. SEG % (test code = 26546-5) 66 % 33-76 LYMPH % (test code = 81208-1) 25 % 14-54 REACT LYMPH % (test code = 4957897555) 3 % MONO % (test code = 44611-5) 3 % 0-4 EOS % (test code = 37866-2) 3 % 0-3 ANC (test code = 753-4) 10.62 10*3/uL 1.88-7.09 H PLT ESTIMATE (test code = 9317-9) Normal Normal Lab Interpretation (test code = 84520-8) [facility] 1 [id number] 11:30:50ORDERING PHYSICIAN: CADENCE ROMAN CLINICAL HISTORY: Shortness of breath TECHNIQUE: Frontal view ofchest COMPARISON: 05/29/2024 FINDINGS: The cardiac silhouette is mildly enlarged, stable. ?There is mild worseningof left lower lobe atelectasis versus infiltrate with small left-sidedpleural effusion. The right lung is clear. There is no pneumothorax. Osseous structures are normal.[facility] Metabolic Panel (NA, K, CL, CO2, GLUCOSE, BUN, CREATININE, CA)2024-05-31 11:00:01* Test Item Value Reference Range Interpretation Comme nts NA (test code = 5171863456) 134 mmol/L 135-145 L K (test code = 4268304282) 4.4 mmol/L 3.5-5.0 CL (test code = 9682725631) 99 mmol/L 98-108 CO2 TOTAL (test code = 3323146197) 35 mmol/L 23-31 H AGAP (test code = 9102953390) 2-16 L BUN (test code = 9112974396) 33 mg/dL 7-23 H GLUCOSE (test code = 1565557991) 120 mg/dL 70-110 H CREATININE (test code = 2160-0) 0.66 mg/dL 0.50-1.04 CALCIUM (test code = 0895829117) 9.2 mg/dL 8.6-10.6 eGFR (test code = 26076-0) 89.4 mL/min/1.73m2 Lab Interpretation (test cod e = 65592-9) [facility]2025-[facility]-14 10:58:30* Test Item Value Reference Range Interpretation Comme nts MAGNESIUM (test code = 2915699023) 1.7 mg/dL 1.7-2.4 Lab Interpretation (test cod e = 78777-4) Normal [facility] GLUCOSE (AUTOMATED)2024-05-31 02:37:15* Test Item Value Reference Range Interpretation Comme nts POCT GLU (test code = 4847738931) 231 mg/dL 70-110 H Lab Interpretation (test cod e = 62170-8) Abnormal [facility] GLUCOSE (AUTOMATED)2024-05-30 22:56:09* Test Item Value Reference Range Interpretation Comme nts POCT GLU (test code = 5439309017) 269 mg/dL 70-110 H Lab Interpretation (test cod e = 70424-8) Abnormal [facility] GLUCOSE (AUTOMATED)2024-05-30 21:50:13* Test Item Value Reference Range Interpretation Comme nts POCT GLU (test code = 8792503855) 292 mg/dL 70-110 H Lab Interpretation (test cod e = 67326-1) Abnormal [facility] GLUCOSE (AUTOMATED)2024-05-30 17:42:15* Test Item Value Reference Range Interpretation Comme nts POCT GLU (test code = 2468753473) 305 mg/dL 70-110 H Lab Interpretation (test cod e = 49810-8) Abnormal [facility] GLUCOSE (AUTOMATED)2024-05-30 13:53:09* Test Item Value Reference Range Interpretation Comme nts POCT GLU (test code = 7024595215) 83 mg/dL 70-110 Lab Interpretation (test cod e = 06043-3) Normal [facility] with [id number] 13:26:27* Test Item Value Reference Range Interpretation [...] 33.0 g/dL 31.6-35.1 RDW-SD (test code = 76712-8) 45.1 fL 39.0-49.9 RDW-CV (test code = 788-0) 13.2 % 12.0-15.5 PLT (test code = 777-3) 308 166-358 MPV (test code = 55640-2) 9.8 fL 9.5-12.9 NRBC/100 WBC (test code = 8302874781) 0.0 0.0-10.0 NRBC x10^3 (test code = 5341149045) See_Comment [Automated message] The system which generated this result transmitted reference range: 10*3/?L. The reference range was not used to interpret this result as normal/abnormal. GRAN MAT (NEUT) % (test code = 770-8) 72.5 % IMM GRAN % (test code = 1298699060) 5.90 % LYMPH % (test code = 736-9) 14.8 % MONO % (test code = 5905-5) 6.1 % EOS % (test code = 713-8) 0.1 % BASO % (test code = 706-2) 0.6 % GRAN MAT x10^3(ANC) (test code = 0343480826) 12.31 10*3/uL 1.88-7.09 H IMM GRAN x10^3 (test code = 4116007568) 1.00 10*3/uL 0.00-0.06 H LYMPH x10^3 (test code = 731-0) 2.51 10*3/uL 1.32-3.29 MONO x10^3 (test code = 742-7) 1.04 10*3/uL 0.33-0.92 H EOS x10^3 (test code = 711-2) 0.03-0.39 L BASO x10^3 (test code = 704-7) 0.11 10*3/uL 0.01-0.07 H Lab Interpretation (test code = 50774-1) [facility] Xqw-Tum1018-70-13 09:33:48* Test Item Value Reference Range Interpretation Comme nts NT-proBNP (test code = 89415-6) 405 pg/mL <=125 LOW (test code = LOW) Result Indeterminate-Consid er causes of NT-proBNP elevation other than Heart failure such as acute coronary syndrome, pulmonary embolism, pulmonary hypertension, sepsis, stroke, and renal dysfunction. Lab Interpretation (test code = 82336-6) [facility]2025-01-13 09:26:07* Test Item Value Reference Range Interpretation Comme nts MAGNESIUM (test code = 0730781313) 1.8 mg/dL 1.7-2.4 Lab Interpretation (test cod e = 89485-2) [facility] (82520)2024-05-30 09:25:47* Test Item Value Reference Range Interpretation Comme nts NA (test code = 3555934204) 133 mmol/L 135-145 L K (test code = 5115155005) 4.8 mmol/L 3.5-5.0 CL (test code = 1653800557) 93 mmol/L 98-108 L CO2 TOTAL (test code = 7915061420) 36 mmol/L 23-31 H AGAP (test code = 9306032460) 4 2-16 BUN (test code = 4330046588) 35 mg/dL 7-23 H GLUCOSE (test code = 0356421738) 147 mg/dL 70-110 H CREATININE (test code = 2160-0) 0.72 mg/dL 0.50-1.04 TOTAL BILI (test code = 4226034261) 0.7 mg/dL 0.1-1.1 CALCIUM (test code = 1473626652) 9.3 mg/dL 8.6-10.6 T PROTEIN (test code = 4488049569) 6.4 g/dL 6.3-8.2 ALBUMIN (test code = 2391557494) 3.3 g/dL 3.5-5.0 L ALK PHOS (test code = 9013462177) 53 U/L 34-122 ALTv (test code = 1742-6) 25 U/L 5-35 AST(SGOT) (test code = 6055464678) 35 U/L 13-40 eGFR (test code = 98491-9) 85.2 mL/min/1.73m2 CKD-EPI eGFR (2020). Assuming creatinine has been stable day-to-day for at least three months, the eGFR indicates Category G2 (60 - 89 mL/min/1.73 m2) Lab Interpretation (test code = 81559-9) Abnormal [facility] GLUCOSE (AUTOMATED)2024-05-30 01:46:09* Test Item Value Reference Range Interpretation Comme nts POCT GLU (test code = 3323816471) 297 mg/dL 70-110 H Lab Interpretation (test cod e = 31797-1) Abnormal [facility] GLUCOSE (AUTOMATED)2024-05-29 22:25:11* Test Item Value Reference Range Interpretation Comme nts POCT GLU (test code = 9511721397) 227 mg/dL 70-110 H Lab Interpretation (test cod e = 91128-0) Abnormal [facility] GLUCOSE (AUTOMATED)2024-05-29 17:21:12* Test Item Value Reference Range Interpretation Comme nts POCT GLU (test code = 6001670582) 280 mg/dL 70-110 H Lab Interpretation (test cod e = 02187-0) Abnormal [facility] GLUCOSE (AUTOMATED)2024-05-29 13:50:08* Test Item Value Reference Range Interpretation Comme nts POCT GLU (test code = 9921001582) 148 mg/dL 70-110 H Lab Interpretation (test cod e = 23060-2) [facility] 1 [id number] 12:53:53ORDERING PHYSICIAN: CADENCE ROMAN CLINICAL HISTORY: Shortness of breath TECHNIQUE: Frontal view ofchest COMPARISON: 05/24/2024 moderately enlarged FINDINGS: The cardiac silhouette is mildly enlarged,stable. Mild central vascularcongestion is identified, similar compared to prior exam. Mild worsening ofleft lower lobe patchy atelectasis versus infiltrate. There is no pneumothorax. There are no eff usions.. ? Osseous structures are normal.[facility] GLUCOSE (AUTOMATED)2024-05-29 02:29:09* Test Item Value Reference Range Interpretation Comme nts POCT GLU (test code = 9636910653) 267 mg/dL 70-110 H Lab Interpretation (test cod e = 32640-2) Abnormal [facility] GLUCOSE (AUTOMATED)2024-05-29 00:36:11* Test Item Value Reference Range Interpretation Comme nts POCT GLU (test code = 1354880376) 349 mg/dL 70-110 H Lab Interpretation (test cod e = 15083-9) Abnormal [facility] GLUCOSE (AUTOMATED)2024-05-28 23:02:40* Test Item Value Reference Range Interpretation Comme nts POCT GLU (test code = 6367140972) 319 mg/dL 70-110 H Lab Interpretation (test cod e = 26123-3) Abnormal [facility] GLUCOSE (AUTOMATED)2024-05-28 21:14:06* Test Item Value Reference Range Interpretation Comme nts POCT GLU (test code = 3209051793) 328 mg/dL 70-110 H Lab Interpretation (test cod e = 27331-1) [facility] Gvhjvqr3687-33-68 20:00:38* Test Item Value Reference Range Interpretation Comme nts SPUTUM CULTURE (test code = 622-1) 1+ Respiratory rico: Commensal upper respiratory microorganisms only. Gram stain (test code = 664-3) Occasional (Rare) Epithelial cells LOW (test code = LOW) Bacterial pathogens associated with lower respiratory infections were not identified, which include Pseudomonas aeruginosa and Staphylococcus aureus (MRSA or MSSA). [facility] GLUCOSE (AUTOMATED)2024-05-28 17:31:38* Test Item Value Reference Range Interpretation Comme nts POCT GLU (test code = 8381655491) 347 mg/dL 70-110 H Lab Interpretation (test cod e = 70190-5) Abnormal [facility] GLUCOSE (AUTOMATED)2024-05-28 13:35:38* Test Item Value Reference Range Interpretation Comme nts POCT GLU (test code = 4757881748) 154 mg/dL 70-110 H Lab Interpretation (test cod e = 95285-4) [facility] (NA, K, CL, CO2, GLUCOSE, BUN, CREATININE, CA)2024-05-28 12:36:22* Test Item Value Reference Range Interpretation Comme nts NA (test code = 4974592393) 134 mmol/L 135-145 L K (test code = 0827047036) 4.6 mmol/L 3.5-5.0 CL (test code = 3038504475) 99 mmol/L 98-108 CO2 TOTAL (test code = 3218887181) 34 mmol/L 23-31 H AGAP (test code = 9257014652) 1 2-16 L BUN (test code = 8219006729) 35 mg/dL 7-23 H GLUCOSE (test code = 4280053161) 190 mg/dL 70-110 H CREATININE (test code = 2160-0) 0.78 mg/dL 0.50-1.04 CALCIUM (test code = 9668512360) 9.0 mg/dL 8.6-10.6 eGFR (test code = 53591-6) 77.4 mL/min/1.73m2 CKD-EPI eGFR (2020). Assuming creatinine has been stable day-to-day for at least three months, the eGFR indicates Category G2 (60 - 89 mL/min/1.73 m2) Lab Interpretation (test code = 24043-9) [facility] [id number] 10:39:29* Test Item Value Reference Range Interpretation [...] 32.8 g/dL 31.6-35.1 RDW-SD (test code = 82211-3) 44.7 fL 39.0-49.9 RDW-CV (test code = 788-0) 13.0 % 12.0-15.5 PLT (test code = 777-3) 282 166-358 MPV (test code = 86776-5) 9.7 fL 9.5-12.9 NRBC/100 WBC (test code = 7926673370) 0.0 0.0-10.0 NRBC x10^3 (test code = 3252552363) See_Comment [Automated messa ge] The system which generated this result transmitted reference range: 10*3/?L. The reference range was not used to interpret this result as normal/abnormal. GRAN MAT (NEUT) % (test code = 770-8) 68.0 % IMM GRAN % (test code = 3024641784) 5.70 % LYMPH % (test code = 736-9) 18.3 % MONO % (test code = 5905-5) 7.3 % EOS % (test code = 713-8) 0.1 % BASO % (test code = 706-2) 0.6 % GRAN MAT x10^3(ANC) (test code = 3492509484) 9.51 10*3/uL 1.88-7.09 H IMM GRAN x10^3 (test code = 8237696982) 0.80 10*3/uL 0.00-0.06 H LYMPH x10^3 (test code = 731-0) 2.56 10*3/uL 1.32-3.29 MONO x10^3 (test code = 742-7) 1.02 10*3/uL 0.33-0.92 H EOS x10^3 (test code = 711-2) 0.03-0.39 L BASO x10^3 (test code = 704-7) 0.09 10*3/uL 0.01-0.07 H Lab Interpretation (test code = 92124-0) Abnormal [facility] GLUCOSE (AUTOMATED)2024-05-28 02:25:00* Test Item Value Reference Range Interpretation Comme nts POCT GLU (test code = 1172722614) 300 mg/dL 70-110 H Lab Interpretation (test cod e = 35990-5) Abnormal [facility] GLUCOSE (AUTOMATED)2024-05-27 21:33:01* Test Item Value Reference Range Interpretation Comme nts POCT GLU (test code = 9405084158) 371 mg/dL 70-110 H Lab Interpretation (test cod e = 27014-0) Abnormal [facility] GLUCOSE (AUTOMATED)2024-05-27 17:54:01* Test Item Value Reference Range Interpretation Comme nts POCT GLU (test code = 9541297135) 385 mg/dL 70-110 H Lab Interpretation (test cod e = 28712-5) Abnormal [facility] GLUCOSE (AUTOMATED)2024-05-27 14:08:02* Test Item Value Reference Range Interpretation Comme nts POCT GLU (test code = 1122296057) 247 mg/dL 70-110 H Lab Interpretation (test cod e = 87310-3) Abnormal [facility] GLUCOSE (AUTOMATED)2024-05-27 02:10:30* Test Item Value Reference Range Interpretation Comme nts POCT GLU (test code = 6666814003) 293 mg/dL 70-110 H Lab Interpretation (test cod e = 97972-0) Abnormal [facility] GLUCOSE (AUTOMATED)2024-05-26 22:41:02* Test Item Value Reference Range Interpretation Comme nts POCT GLU (test code = 8152284131) 357 mg/dL 70-110 H Lab Interpretation (test cod e = 49949-7) Abnormal [facility] GLUCOSE (AUTOMATED)2024-05-26 21:17:34* Test Item Value Reference Range Interpretation Comme nts POCT GLU (test code = 7107264477) 415 mg/dL 70-110 H Lab Interpretation (test cod e = 06901-9) Abnormal [facility] GLUCOSE (AUTOMATED)2024-05-26 17:43:58* Test Item Value Reference Range Interpretation Comme nts POCT GLU (test code = 0941443700) 379 mg/dL 70-110 H Lab Interpretation (test cod e = 50187-3) Abnormal [facility] GLUCOSE (AUTOMATED)2024-05-26 13:39:25* Test Item Value Reference Range Interpretation Comme nts POCT GLU (test code = 8045985927) 225 mg/dL 70-110 H Lab Interpretation (test cod e = 74153-4) Abnormal [facility] GLUCOSE (AUTOMATED)2024-05-26 06:09:28* Test Item Value Reference Range Interpretation Comme nts POCT GLU (test code = 6108250018) 235 mg/dL 70-110 H Lab Interpretation (test cod e = 67895-2) Abnormal [facility] GLUCOSE (AUTOMATED)2024-05-26 02:52:30* Test Item Value Reference Range Interpretation Comme nts POCT GLU (test code = 8462329734) 333 mg/dL 70-110 H Lab Interpretation (test cod e = 19634-9) [facility]2024-05-25 22:32:56* Test Item Value Reference Range Interpretation Comme nts POCT GLU (test code = 4420995019) 346 mg/dL 70-110 H Lab Interpretation (test cod e = 46613-9) Abnormal [facility] GLUCOSE (AUTOMATED)2024-05-25 17:21:54* Test Item Value Reference Range Interpretation Comme nts POCT GLU (test code = 8522949763) 328 mg/dL 70-110 H Lab Interpretation (test cod e = 22145-0) Abnormal [facility] GLUCOSE (AUTOMATED)2024-05-25 13:31:53* Test Item Value Reference Range Interpretation Comme nts POCT GLU (test code = 2879739245) 191 mg/dL 70-110 H Lab Interpretation (test cod e = 94388-1) Abnormal [facility] Thorax wo [id number] 04:28:23 EXAMINATION: CT THORAX WO CONTRAST ORDERING [...] exam. There isstraightening of the normal thoracic kyphosis.[facility] 1 [id number] 02:25:54Exam: Chest (1 View), 05/24/2024 7:00 PM. Ordering Physician: JEWEL SEXTON. History: Pneumonia. Technique: AP view of the chest. Technical Quality: Adequate. Comparison: Chest radiograph 10/23/2023. Findings: Stable cardiomegaly and thoracic aorta. Mild calcified atheroscleroticplaque in the descending thoracic aorta. ?No airspace consolidation,pleural effusion, or pneumothorax. No acute osseous abnormality. Unchanged mild dextroconvex curvature of theupper thoracic spine.[facility] Austin[facility]OPON[facility] [id number] 02:13:20* Test Item Value Reference Range Interpretation Comme nts TROPONIN I (test code = 8682558974) 0.017 ng/mL <=0.034 LOW (test code = [...] of biotin. Lab Interpretation (test code = 55733-3) Normal [facility] [id number]-[id number] 02:10:39* Test Item Value Reference Range Interpretation Comme nts NT-proBNP (test code = 81610-8) 864 pg/mL <=125 LOW (test code = LOW) Result Indeterminate-Consid er causes of NT-proBNP elevation other than Heart failure such as acute coronary syndrome, pulmonary embolism, pulmonary hypertension, sepsis, stroke, and renal dysfunction. Lab Interpretation (test code = 09916-6) [facility]normal [facility] METABOLIC PANEL (46788)2024-05-25 02:01:34* Test Item Value Reference Range Interpretation Comme nts NA (test code = 5338628470) 140 mmol/L 135-145 K (test code = 8142301293) 3.9 mmol/L 3.5-5.0 CL (test code = 2894818785) 103 mmol/L 98-108 CO2 TOTAL (test code = 3193942549) 28 mmol/L 23-31 AGAP (test code = 2800268425) 9 2-16 BUN (test code = 5695467569) 22 mg/dL 7-23 GLUCOSE (test code = 8778508432) 221 mg/dL 70-110 H CREATININE (test code = 2160-0) 0.73 mg/dL 0.50-1.04 TOTAL BILI (test code = 7192792061) 1.4 mg/dL 0.1-1.1 H CALCIUM (test code = 9763283546) 9.7 mg/dL 8.6-10.6 T PROTEIN (test code = 6995674679) 7.2 g/dL 6.3-8.2 ALBUMIN (test code = 3992301762) 3.9 g/dL 3.5-5.0 ALK PHOS (test code = 7451788912) 96 U/L 34-122 ALTv (test code = 1742-6) 39 U/L 5-35 H AST(SGOT) (test code = 4867632582) 73 U/L 13-40 H eGFR (test code = 69685-8) 83.8 mL/min/1.73m2 CKD-EPI eGFR (2020). Assuming creatinine has been stable day-to-day for at least three months, the eGFR indicates Category G2 (60 - 89 mL/min/1.73 m2) Lab Interpretation (test code = 38110-9) [facility] wo [id number] 01:54:55EXAM: CT HEAD WO CONTRAST HISTORY: Mental [...] The calvarium and central skull base are unremarkable.[facility] WITH [id number] 01:52:33* Test Item Value Reference Range Interpretation [...] 32.5 g/dL 31.6-35.1 RDW-SD (test code = 40726-6) 48.1 fL 39.0-49.9 RDW-CV (test code = 788-0) 13.4 % 12.0-15.5 PLT (test code = 777-3) 288 166-358 MPV (test code = 25972-7) 9.8 fL 9.5-12.9 NRBC/100 WBC (test code = 8973262120) 0.0 0.0-10.0 NRBC x10^3 (test code = 8586302190) See_Comment [Automated messa ge] The system which generated this result transmitted reference range: 10*3/?L. The reference range was not used to interpret this result as normal/abnormal. GRAN MAT (NEUT) % (test code = 770-8) 73.2 % IMM GRAN % (test code = 0660273243) 0.30 % LYMPH % (test code = 736-9) 14.0 % MONO % (test code = 5905-5) 11.8 % EOS % (test code = 713-8) 0.3 % BASO % (test code = 706-2) 0.4 % GRAN MAT x10^3(ANC) (test code = 2221149067) 9.06 10*3/uL 1.88-7.09 H IMM GRAN x10^3 (test code = 3292754680) 0.04 10*3/uL 0.00-0.06 LYMPH x10^3 (test code = 731-0) 1.74 10*3/uL 1.32-3.29 MONO x10^3 (test code = 742-7) 1.46 10*3/uL 0.33-0.92 H EOS x10^3 (test code = 711-2) 0.04 10*3/uL 0.03-0.39 BASO x10^3 (test code = 704-7) 0.05 10*3/uL 0.01-0.07 Lab Interpretation (test code = 67342-7) Abnormal [facility] Austin[facility]rophysiology gfsmumhzc5428-33-77 13:01:20 Watchman Device ImplantationProcedure: Left Atrial Appendage Occlusion via a Watchman device Indication: Paroxysmal Atrial Fibrillation with a [id number] score >3 and intolerant to anticoagulation due to GI Bleeding. Technique: After obtaining informed consent the patient was prepped and draped in the usual sterile fashion. Monitored anesthesia care was initiated under anesthesia team guidance (see BUSINESS LAW INSTRUCTOR records). A transesophageal echocardiogram was performed. The [...] left atrial appendageNote: This was a single brine well operator procedure. Michael Bethea, MDCardiac Electrophysiology [facility] AustinIntraoperative TED (guidance)2024-03-10 23:56:25* Test Item Value Reference Range Interpretation Comme nts Height (test code = 0339406942) 63 in Weight (test code = 1732746572) 184 lbs Systolic BP (test code = 0691677506) 153 mmHg Diastolic BP (test code = 6485711142) 69 mmHg Heart Rate (test code = 1151107960) 69 bpm BSA (test code = 2579560769) 1.87 m2 Radiology Study observation (narrative) (test code = 06589-7) LOW (test code = LOW) Table formatting [...] captured. The probe was inserted by the floral department specialist. There was no probe insertion difficulty.There were 1 attempts to insert the probe. Probe in 08:54 am. Probe out 09:26 am. Sedation and monitoring provided by anesthesia, see Epic documentation. There were no complications during the procedure. Based on abnormal findings of 2D echocardiogram, 3D was performed on an acquisition scanner for further assessment of the left atrium. [facility] PROCEDURE [id number] 14:44:24Ordered by an unspecified provider.[facility] AustinType and Screen - ONCE Armhcsl0280-48-50 13:12:00* Test Item Value Reference Range Interpretation Comme nts ABO & RH (test code = 20) A POSITIVE IAT (test code = 1185) Negative [facility] and Screen - ONCE Umclgnv0445-35-18 13:12:00* Test Item Value Reference Range Interpretation Comme nts ABO & RH (test code = 20) A POSITIVE IAT (test code = 1185) Negative [facility] GLUCOSE (AUTOMATED)2023-12-30 21:32:22* Test Item Value Reference Range Interpretation Comme nts POCT GLU (test code = 0316950560) 194 mg/dL 70-110 H Lab Interpretation (test cod e = 90680-2) Abnormal [facility] GLUCOSE (AUTOMATED)2023-12-30 20:51:25* Test Item Value Reference Range Interpretation Comme nts POCT GLU (test code = 5476065904) 297 mg/dL 70-110 H Lab Interpretation (test cod e = 11103-9) Abnormal [facility] GLUCOSE (AUTOMATED)2023-12-30 19:53:56* Test Item Value Reference Range Interpretation Comme nts POCT GLU (test code = 7837377101) 387 mg/dL 70-110 H Lab Interpretation (test cod e = 46409-8) [facility]normal [facility])2023-12-30 19:05:54* Test Item Value Reference Range Interpretation Comme nts POCT GLU (test code = 9220749892) 536 mg/dL 70-110 HH Lab Interpretation (test cod e = 86163-7) Abnormal [facility]. METABOLIC PANEL (13292)2023-12-30 18:42:41* Test Item Value Reference Range Interpretation Comme nts NA (test code = 8221530136) 132 mmol/L 135-145 L K (test code = 7352427044) 4.1 mmol/L 3.5-5.0 CL (test code = 2785444563) 92 mmol/L 98-108 L CO2 TOTAL (test code = 7331226818) 30 mmol/L 23-31 AGAP (test code = 2780917250) 10 2-16 BUN (test code = 4363080262) 23 mg/dL 7-23 GLUCOSE (test code = 9608385941) 544 mg/dL 70-110 HH CREATININE (test code = 2160-0) 0.78 mg/dL 0.50-1.04 TOTAL BILI (test code = 5249266157) 1.2 mg/dL 0.1-1.1 H CALCIUM (test code = 8952461826) 9.3 mg/dL 8.6-10.6 T PROTEIN (test code = 5824886661) 7.5 g/dL 6.3-8.2 ALBUMIN (test code = 0088851862) 4.1 g/dL 3.5-5.0 ALK PHOS (test code = 3767781745) 73 U/L 34-122 ALTv (test code = 1742-6) 17 U/L 5-35 AST(SGOT) (test code = 7416252266) 38 U/L 13-40 eGFR (test code = 45652-1) 77.9 mL/min/1.73m2 CKD-EPI eGFR (2020). Assuming creatinine has been stable day-to-day for at least three months, the eGFR indicates Category G2 (60 - 89 mL/min/1.73 m2) Lab Interpretation (test code = 80064-3) Abnormal [facility] WITH [id number] 18:18:31* Test Item Value Reference Range Interpretation [...] 33.3 g/dL 31.6-35.1 RDW-SD (test code = 02439-5) 47.3 fL 39.0-49.9 RDW-CV (test code = 788-0) 13.5 % 12.0-15.5 PLT (test code = 777-3) 251 166-358 MPV (test code = 16187-3) 10.5 fL 9.5-12.9 NRBC/100 WBC (test code = 3883964340) 0.0 0.0-10.0 NRBC x10^3 (test code = 5464540638) See_Comment [Automated me ssage] The system which generated this result transmitted reference range: 10*3/?L. The reference range was not used to interpret this result as normal/abnormal. GRAN MAT (NEUT) % (test code = 770-8) 70.6 % IMM GRAN % (test code = 1635879936) 0.40 % LYMPH % (test code = 736-9) 20.4 % MONO % (test code = 5905-5) 6.5 % EOS % (test code = 713-8) 1.7 % BASO % (test code = 706-2) 0.4 % GRAN MAT x10^3(ANC) (test code = 2911603009) 5.45 10*3/uL 1.88-7.09 IMM GRAN x10^3 (test code = 5490490906) 0.03 10*3/uL 0.00-0.06 LYMPH x10^3 (test code = 731-0) 1.57 10*3/uL 1.32-3.29 MONO x10^3 (test code = 742-7) 0.50 10*3/uL 0.33-0.92 EOS x10^3 (test code = 711-2) 0.13 10*3/uL 0.03-0.39 BASO x10^3 (test code = 704-7) 0.03 10*3/uL 0.01-0.07 [facility] AustinAC Panel 21 + Lactic [id number] 17:52:11* Test Item Value Reference Range Interpretation Comme nts PH (test code = 2812744617) 7.42 7.32-7.42 PCO2 CARROL (test code = 2713411858) 43 41-51 PO2 CARROL (test code = 4930434377) 33 25-40 HCO3 CARROL (test code = 0367615419) 27 24-28 AC VBE(BEAKER) (test code = 2765898275) 2.2 mEq/L THB CARROL (test code = 0055675665) 14.9 g/dL 12.0-16.0 %O2HB CARROL (test code = 5933467751) 66.9 % 52.0-63.0 H %COHB CARROL (test code = 2803217954) 0.7 % 0.0-1.5 %METHB CARROL (test code = 3253651143) 0.0 % 0.4-1.5 L VOL%O2 CARROL (test code = 1525454753) 14.0 % 6.0-12.0 H NA (test code = 4460658502) 128 mmol/L 135-145 L K+ (test code = 0171401167) 4.0 mmol/L 3.5-5.0 AC CA IONZ (test code = 7174963549) 4.90 mg/dL 4.50-5.30 GLUCOSE (test code = 4334745746) 541 mg/dL 70-110 HH LACTIC ACID (test code = 0590955940) 1.49 mmol/L 0.50-2.20 Lab Interpretation (test cod e = 51905-8) Abnormal [facility] [id number] 16:44:00Jewel Sexton MD ? ? 12/30/2023 ?4:50 [...] separately billable procedures and treating other patients. [facility] GLUCOSE (AUTOMATED)2023-10-26 21:33:56* Test Item Value Reference Range Interpretation Comme nts POCT GLU (test code = 6920752503) 237 mg/dL 70-110 H Lab Interpretation (test cod e = 33516-7) Abnormal [facility] GLUCOSE (AUTOMATED)2023-10-26 16:50:55* Test Item Value Reference Range Interpretation Comme nts POCT GLU (test code = 9617187258) 275 mg/dL 70-110 H Lab Interpretation (test cod e = 10121-2) Abnormal [facility] GLUCOSE (AUTOMATED)2023-10-26 12:45:21* Test Item Value Reference Range Interpretation Comme nts POCT GLU (test code = 1859784463) 140 mg/dL 70-110 H Lab Interpretation (test cod e = 26394-7) [facility] 01:03:15* Test Item Value Reference Range Interpretation Comme nts POCT GLU (test code = 9181094615) 167 mg/dL 70-110 H Lab Interpretation (test cod e = 12875-7) Abnormal [facility] GLUCOSE (AUTOMATED)2023-10-25 21:28:18* Test Item Value Reference Range Interpretation Comme nts POCT GLU (test code = 0482988916) 214 mg/dL 70-110 H Lab Interpretation (test cod e = 98208-1) Abnormal [facility] GLUCOSE (AUTOMATED)2023-10-25 16:53:45* Test Item Value Reference Range Interpretation Comme nts POCT GLU (test code = 2213693734) 286 mg/dL 70-110 H Lab Interpretation (test cod e = 12111-1) Abnormal [facility] GLUCOSE (AUTOMATED)2023-10-25 12:52:34* Test Item Value Reference Range Interpretation Comme nts POCT GLU (test code = 2599995850) 215 mg/dL 70-110 H Lab Interpretation (test cod e = 02126-9) Abnormal [facility] GLUCOSE (AUTOMATED)2023-10-25 04:46:32* Test Item Value Reference Range Interpretation Comme nts POCT GLU (test code = 9439963569) 246 mg/dL 70-110 H Lab Interpretation (test cod e = 72762-2) Abnormal [facility] GLUCOSE (AUTOMATED)2023-10-25 01:43:40* Test Item Value Reference Range Interpretation Comme nts POCT GLU (test code = 7827916677) 311 mg/dL 70-110 H Lab Interpretation (test cod e = 28988-0) Abnormal [facility] GLUCOSE (AUTOMATED)2023-10-24 21:22:00* Test Item Value Reference Range Interpretation Comme nts POCT GLU (test code = 5192440657) 260 mg/dL 70-110 H Lab Interpretation (test cod e = 12260-8) Abnormal [facility] GLUCOSE (AUTOMATED)2023-10-24 16:37:57* Test Item Value Reference Range Interpretation Comme nts POCT GLU (test code = 9450331919) 233 mg/dL 70-110 H Lab Interpretation (test cod e = 56400-5) [facility]2023-10-24 12:40:52* Test Item Value Reference Range Interpretation Comme nts POCT GLU (test code = 9980298505) 240 mg/dL 70-110 H Lab Interpretation (test cod e = 59515-0) [facility]2023-10-24 05:29:09* Test Item Value Reference Range Interpretation Comme nts POCT GLU (test code = 8562291844) 360 mg/dL 70-110 H Lab Interpretation (test cod e = 41277-0) [facility]2023-10-24 01:58:14* Test Item Value Reference Range Interpretation Comme nts POCT GLU (test code = 3354095908) 367 mg/dL 70-110 H Lab Interpretation (test cod e = 01968-8) Abnormal [facility] GLUCOSE (AUTOMATED)2023-10-23 21:27:33* Test Item Value Reference Range Interpretation Comme nts POCT GLU (test code = 2786880799) 349 mg/dL 70-110 H Lab Interpretation (test cod e = 83409-5) Abnormal [facility] GLUCOSE (AUTOMATED)2023-10-23 18:02:56* Test Item Value Reference Range Interpretation Comme nts POCT GLU (test code = 8892703272) 477 mg/dL 70-110 HH Lab Interpretation (test cod e = 41217-4) [facility]2023-10-23 16:43:25* Test Item Value Reference Range Interpretation Comme nts POCT GLU (test code = 8194854638) 428 mg/dL 70-110 H Lab Interpretation (test cod e = 38092-5) [facility] [id number] 13:25:40EXAM: XR CHEST 1 VW HISTORY: 78 [...] osseous lesions or acute osseous findings are detected.[facility] GLUCOSE (AUTOMATED)2023-10-23 12:42:59* Test Item Value Reference Range Interpretation Comme [facility] POCT GLU (test code = 2958167055) 222 mg/dL 70-110 H Lab Interpretation (test cod e = 95301-6) Abnormal [facility] GLUCOSE (AUTOMATED)2023-10-23 01:10:38* Test Item Value Reference Range Interpretation Comme [facility] POCT GLU (test code = 5249472707) 291 mg/dL 70-110 H Lab Interpretation (test cod e = 95209-8) [facility]an[facility] (TTE) 2023-10-22 21:50:27* Test Item Value Reference Range Interpretation Comme [facility] Height (test code = 8673582326) 63 in Weight (test code = 7106529023) 189 lbs Systolic BP (test code = 3568541770) 156 mmHg Diastolic BP (test code = 8874378481) 69 mmHg Heart Rate (test code = 5832190500) 90 bpm BSA (test code = 6543403697) 1.89 m2 Ao root diam (test code = 4766145724) 3.40 cm Aortic root (test code = 5317458664) 3.4 cm Ao root annulus (test code = 1682530295) 3.4 cm EF(Teich) (test code = 4981964185) 52.30 % LVIDD (test code = 6636006451) 4.30 cm Left Ventricular End Diastolic Volume by Teichholz Method (test code = 1414389) 81.3 mL FS (test code = 7662470427) 27 % EF - 2D (test code = 32932521) 52.30 % LVPWD (test code = 7623442821) 1.30 cm PW (test code = 2808085527) 1.30 cm 0.6-1.1 MV Peak E Rohini (test code = 9869260130) 75.3 cm/s MV Peak A Rohini (test code = 8245515175) 134.7 cm/s E/A ratio (test code = 6905083040) 0.56 ratio E wave decelartion time (test code = 6478003468) 0.21 s MV stenosis pressure 1/2 time (test code = 0580571392) 64.2 ms MV E/e' septal (test code = 3467089930) 5.0 cm/s Tapse (test code = 3602820780) 2.21 cm LVOT peak rohini (test code = 2416873334) 105.3 cm/s LVOT mn grad (test code = 5962792102) 2.7 mmHg AV LVOT peak gradient (test code = 2791593953) 4.4 mmHg LVOT peak VTI (test code = 8829113823) 21.5 cm LV V1 mean (test code = 4360673385) 78.30 cm/s Aortic valve mean velocity (test code = 1028573603) 163.6 cm/s Ao peak rohini (test code = 9072111202) 210.5 cm/s Ao VTI (test code = 8446938331) 42.8 cm Ao max PG (test code = 6463489900) 17.70 mm[Hg] AV peak gradient (test code = 7075385163) 17.7 mmHg AV mean gradient (test code = 8392906875) 11.5 mmHg AI max rohini (test code = 9997433880) 367.00 cm/s AI max PG (test code = 8252709891) 53.90 mm[Hg] IVS (test code = 7177391482) 1.31 cm Interventricular Septum Diastolic Thickness by 2D (test code = 1507348) 1.31 cm LVIDS (test code = 1071600153) 3.10 cm Left Ventricular End Systolic Volume by Teichholz Method (test code = 0537524) 38.8 mL LVOT stroke volume (test code = 0216876935) 66.50 cm3 LVOT diameter (test code = 8417775507) 1.98 cm LVOT area (test code = 6659468614) 3.10 cm2 AV area by cont VTI (test code = 8019286299) 1.6 cm2 AV area peak rohini (test code = 5221842017) 1.6 cm2 AV valve area (test code = 2823556242) 1.55 cm2 LA size (test code = 0482945134) 4.2 cm TR Peak Rohini (test code = 7309686575) 317.4 cm/s Triscuspid Valve Regurgitation Peak Gradient (test code = 0936524833) 40.3 mmHg LAV(MOD-sp4) (test code = 9103210725) 53.00 mL MV Prop V (test code = 7273560820) 52.70 cm/s AV regurgitation pressure 1/2 time (test code = 6903579496) 642.2 ms AI dec slope (test code = 6644699315) 167.40 cm/s2 Radiology Study observation (narrative) (test code = 47024-5) LOW (test code = LOW) ?Left?Ventricle: Left [...] and spectral Doppler. Saline contrast was performed. [facility] GLUCOSE (AUTOMATED)2023-10-22 21:28:36* Test Item Value Reference Range Interpretation Comme [facility] POCT GLU (test code = 2771005413) 217 mg/dL 70-110 H Lab Interpretation (test cod e = 02391-7) Abnormal [facility] BRAIN WO [id number] 19:30:26EXAM: MR BRAIN WO CONTRAST HISTORY: Neuro [...] whitematter T2/FLAIRhyperintensities, nonspecific, likely representing microvascular ischemicchanges. W4xvvxym void of intracranial vessels is unremarkable. Retention cyst is noted in the right sphenoid sinus. No abnormal signal inthe remainder of paranasal sinuses or mastoid air cells. [facility] GLUCOSE (AUTOMATED)2023-10-22 16:41:55* Test Item Value Reference Range Interpretation Comme nts POCT GLU (test code = 2427584644) 268 mg/dL 70-110 H Lab Interpretation (test cod e = 80879-4) [facility] [id number] 13:38:42EXAM: XR CHEST 1 VW HISTORY: 78 years-old Female; Provided indication: altered mental status . TECHNIQUE: Single frontal view of the chest. COMPARISON: Radiograph dated 2023 FINDINGS: The lungsare well-expanded. No new consolidation or pleural abnormality isvisualized. Improved interstitial edema trace residual or chronicinterstitial changes/scarring. The cardiomediastinal silhouette is normal in size accounting fortechnique. No focal osseous lesions or acute osseous findings are detected.[facility]AST 2023-10-22 13:33:51EXAM: CT HEAD [...] clear. The calvarium andcentral skull base are unremarkable.[facility]ATED)2023-10-22 12:29:57* Test Item Value Reference Range Interpretation Comme nts POCT GLU (test code = 1933825522) 202 mg/dL 70-110 H Lab Interpretation (test cod e = 97288-7) [facility]normal [facility] AustinFasting Lipd Panel (52565)(TOTAL CHOLESTEROL, TRIGLYCERIDES, HDL)2023-10-22 11:49:04* Test Item Value Reference Range Interpretation Comme nts CHOL (test code = 3217357183) 201 mg/dL 120-200 H HDL (test code = 3172667271) 33 mg/dL >=50 L HDLC RATIO (test code = 0167474465) 6.1 <=4.5 H TRIG (test code = 9547350024) 189 mg/dL 30-170 H LDL CHOL (test code = 47126-6) 130 mg/dL <=160 VLDL (test code = 3721572110) 38 mg/dL 5-60 Lab Interpretation (test cod e = 80476-8) Abnormal [facility] AustinGlycosyated Hemoglobin (A1C)2023-10-22 09:26:35* Test Item Value Reference Range Interpretation Comme [facility] HGB A1C (test code = 4548-4) 10.5 % 4.0-5.7 H LOW (test code = LOW) Reference RangesNormal: <5.7%Prediabetes: 5.7 - 6.4%Diabetes: > 6.5% Lab Interpretation (test code = 68716-4) [facility]normal [facility]AUT[facility]ATED)2023-10-22 07:28:58* Test Item Value Reference Range Interpretation Comme [facility] POCT GLU (test code = 7270492282) 205 mg/dL 70-110 H Lab Interpretation (test cod e = 13495-2) Abnormal [facility] AustinTroponin [id number] 04:19:58* Test Item Value Reference Range Interpretation Comme [facility] TROPONIN I (test code = 2707671812) 0.003 ng/mL <=0.034 LOW (test code = [...] of biotin. Lab Interpretation (test code = 93586-7) Normal [facility] (Creatine Kinase) + [id number] 04:16:54* Test Item Value Reference Range Interpretation Comme nts CK (test code = 5172718479) 54 U/L 33-194 CK-MB (test code = 1390604586) 0.47 ng/mL <=3.50 CKMB INDEX (test code = 2834334965) 0.9 % 0.0-2.5 LOW (test code = LOW) Biotin has been reported to cause a negative bias, interpret results relative to patient's use of biotin. Lab Interpretation (test code = 86752-1) Normal [facility] AustinComp. Metabolic Panel (07835)2023-10-22 04:09:37* Test Item Value Reference Range Interpretation Comme nts NA (test code = 2477952166) 137 mmol/L 135-145 K (test code = 5498070947) 4.0 mmol/L 3.5-5.0 CL (test code = 6149659133) 100 mmol/L 98-108 CO2 TOTAL (test code = 9038107244) 26 mmol/L 23-31 AGAP (test code = 8379908517) 11 2-16 BUN (test code = 1912347079) 22 mg/dL 7-23 GLUCOSE (test code = 1386504904) 240 mg/dL 70-110 H CREATININE (test code = 2160-0) 0.89 mg/dL 0.50-1.04 TOTAL BILI (test code = 8726245174) 1.0 mg/dL 0.1-1.1 CALCIUM (test code = 0891569221) 10.1 mg/dL 8.6-10.6 T PROTEIN (test code = 4328260731) 7.7 g/dL 6.3-8.2 ALBUMIN (test code = 1035825945) 4.4 g/dL 3.5-5.0 ALK PHOS (test code = 5127271412) 63 U/L 34-122 ALTv (test code = 1742-6) 21 U/L 5-35 AST(SGOT) (test code = 1241778878) 27 U/L 13-40 eGFR (test code = 52367-2) 66.5 mL/min/1.73m2 CKD-EPI eGFR (2020). Assuming creatinine has been stable day-to-day for at least three months, the eGFR indicates Category G2 (60 - 89 mL/min/1.73 m2) Lab Interpretation (test code = 88542-0) Abnormal [facility] AustinLipase2024-06-06 04:09:17* Test Item Value Reference Range Interpretation Comme nts LIPASE (test code = 4973486370) 50 U/L 0-220 Lab Interpretation (test cod e = 37235-7) Normal [facility] AustinCbc with [id number] 03:54:52* Test Item Value Reference Range Interpretation [...] 33.1 g/dL 31.6-35.1 RDW-SD (test code = 66065-1) 49.7 fL 39.0-49.9 RDW-CV (test code = 788-0) 14.3 % 12.0-15.5 PLT (test code = 777-3) 275 166-358 MPV (test code = 93844-4) 9.9 fL 9.5-12.9 NRBC/100 WBC (test code = 2453287079) 0.0 0.0-10.0 NRBC x10^3 (test code = 2801691635) See_Comment [Automated me ssage] The system which generated this result transmitted reference range: 10*3/?L. The reference range was not used to interpret this result as normal/abnormal. GRAN MAT (NEUT) % (test code = 770-8) 67.0 % IMM GRAN % (test code = 1707139453) 0.40 % LYMPH % (test code = 736-9) 22.3 % MONO % (test code = 5905-5) 8.5 % EOS % (test code = 713-8) 1.2 % BASO % (test code = 706-2) 0.6 % GRAN MAT x10^3(ANC) (test code = 6222561728) 5.59 10*3/uL 1.88-7.09 IMM GRAN x10^3 (test code = 3112732862) 0.03 10*3/uL 0.00-0.06 LYMPH x10^3 (test code = 731-0) 1.86 10*3/uL 1.32-3.29 MONO x10^3 (test code = 742-7) 0.71 10*3/uL 0.33-0.92 EOS x10^3 (test code = 711-2) 0.10 10*3/uL 0.03-0.39 BASO x10^3 (test code = 704-7) 0.05 10*3/uL 0.01-0.07 [facility] AustinCT ABDOMEN PELVIS W [id number] 03:31:36ORDERING PHYSICIAN: JOSUE HODGES HISTORY: Epigastric pain [...] withinnormal limits. No lymphadenopathy. Bones: No acute abnormality.[facility] ([facility] 2023-07-10 01:47:51* Test Item Value Reference Range Interpretation Comme nts NA (test code = 7604258111) 137 mmol/L 135-145 K (test code = 1633451765) 3.5 mmol/L 3.5-5.0 CL (test code = 6575408016) 100 mmol/L 98-108 CO2 TOTAL (test code = 0301069392) 29 mmol/L 23-31 AGAP (test code = 9894896509) 8 2-16 BUN (test code = 1139539717) 20 mg/dL 7-23 GLUCOSE (test code = 5502017892) 167 mg/dL 70-110 H CREATININE (test code = 2160-0) 0.86 mg/dL 0.50-1.04 TOTAL BILI (test code = 6287884527) 0.8 mg/dL 0.1-1.1 CALCIUM (test code = 2632452351) 9.9 mg/dL 8.6-10.6 T PROTEIN (test code = 6480264311) 7.6 g/dL 6.3-8.2 ALBUMIN (test code = 6022240689) 4.3 g/dL 3.5-5.0 ALK PHOS (test code = 7758403548) 55 U/L 34-122 ALTv (test code = 1742-6) 20 U/L 5-35 AST(SGOT) (test code = 8373153306) 29 U/L 13-40 eGFR (test code = 69560-2) 69.2 mL/min/1.73m2 CKD-EPI eGFR (2020). Assuming creatinine has been stable day-to-day for at least three months, the eGFR indicates Category G2 (60 - 89 mL/min/1.73 m2) Lab Interpretation (test code = 07500-8) Abnormal [facility] AustinLipase2024-02-23 01:47:09* Test Item Value Reference Range Interpretation Comme nts LIPASE (test code = 2817699617) 67 U/L 0-220 Lab Interpretation (test cod e = 02293-2) Normal [facility] AustinCb with [id number] 01:44:05* Test Item Value Reference Range Interpretation [...] 32.6 g/dL 31.6-35.1 RDW-SD (test code = 48929-6) 53.8 fL 39.0-49.9 H RDW-CV (test code = 788-0) 16.4 % 12.0-15.5 H PLT (test code = 777-3) 246 166-358 MPV (test code = 52210-2) 9.8 fL 9.5-12.9 NRBC/100 WBC (test code = 5735562492) 0.0 0.0-10.0 NRBC x10^3 (test code = 0770363616) See_Comment [Automated messa ge] The system which generated this result transmitted reference range: 10*3/?L. The reference range was not used to interpret this result as normal/abnormal. GRAN MAT (NEUT) % (test code = 770-8) 64.7 % IMM GRAN % (test code = 8758032658) 0.40 % LYMPH % (test code = 736-9) 23.5 % MONO % (test code = 5905-5) 9.4 % EOS % (test code = 713-8) 1.4 % BASO % (test code = 706-2) 0.6 % GRAN MAT x10^3(ANC) (test code = 7089129956) 5.42 10*3/uL 1.88-7.09 IMM GRAN x10^3 (test code = 8226639975) 0.03 10*3/uL 0.00-0.06 LYMPH x10^3 (test code = 731-0) 1.97 10*3/uL 1.32-3.29 MONO x10^3 (test code = 742-7) 0.79 10*3/uL 0.33-0.92 EOS x10^3 (test code = 711-2) 0.12 10*3/uL 0.03-0.39 BASO x10^3 (test code = 704-7) 0.05 10*3/uL 0.01-0.07 Lab Interpretation (test code = 70213-3) Abnormal [facility] AustinTROPONIN [id number] 22:02:22* Test Item Value Reference Range Interpretation Comme nts TROPONIN I (test code = 4187401429) 0.019 ng/mL <=0.034 LOW (test code = [...] of biotin. Lab Interpretation (test code = 33865-4) Normal [facility] AustinN-TERMINAL [id number] 21:59:59* Test Item Value Reference Range Interpretation Comme [facility] NT-proBNP (test code = 37595-1) 7650 pg/mL <=125 H LOW (test code = LOW) Positive: Heart Failure Likely Lab Interpretation (test code = 68041-6) Abnormal [facility] AustinCOMP. METABOLIC PANEL (29821)2023 21:50:36* Test Item Value Reference Range Interpretation Comme nts NA (test code = 1850941063) 141 mmol/L 135-145 K (test code = 7035867382) 4.1 mmol/L 3.5-5.0 CL (test code = 3485199442) 104 mmol/L 98-108 CO2 TOTAL (test code = 6653760675) 25 mmol/L 23-31 AGAP (test code = 6386479016) 12 2-16 BUN (test code = 3645697822) 8 mg/dL 7-23 GLUCOSE (test code = 8829713824) 108 mg/dL 70-110 CREATININE (test code = 7792234216) 0.57 mg/dL 0.50-1.04 TOTAL BILI (test code = 9721270300) 0.7 mg/dL 0.1-1.1 CALCIUM (test code = 6464907128) 9.8 mg/dL 8.6-10.6 T PROTEIN (test code = 6793604661) 6.9 g/dL 6.3-8.2 ALBUMIN (test code = 0911370011) 4.0 g/dL 3.5-5.0 ALK PHOS (test code = 9034377559) 60 U/L 34-122 ALTv (test code = 1742-6) 13 U/L 5-35 AST(SGOT) (test code = 2289655175) 48 U/L 13-40 H eGFR (test code = 91034-5) 93.2 mL/min/1.73m2 CKD-EPI eGFR (2020). Assuming creatinine has been stable day-to-day for at least three months, the eGFR indicates Category G1 (>= 90 mL/min/1.73 m2) Lab Interpretation (test code = 94128-8) Abnormal [facility] AustinMAGNESIUM2023-11-15 21:50:36* Test Item Value Reference Range Interpretation Comme nts MAGNESIUM (test code = 7366109017) 1.6 mg/dL 1.7-2.4 L Lab Interpretation (test cod e = 60900-1) Abnormal [facility] WITH [id number] 21:13:29* Test Item Value Reference Range Interpretation Comme nts WBC (test code = 6690-2) 8.42 See_Comment [[employer]] The system which generated this result transmitted reference range: 4.30 - 11.10 10*3/?L. The reference range was not used to interpret this result as normal/abnormal. RBC (test code = 789-8) 4.22 See_Comment [[employer]] The system which generated this result transmitted [...] g/dL 31.6-35.1 L RDW-SD (test code = 57007-7) 65.1 fL 39.0-49.9 H RDW-CV (test code = 788-0) 19.9 % 12.0-15.5 H PLT (test code = 777-3) 279 See_Comment [[employer]] The system which generated this result transmitted reference range: 166 - 358 10*3/?L. The reference range was not used to interpret this result as normal/abnormal. MPV (test code = 52203-8) 9.5 fL 9.5-12.9 NRBC/100 WBC (test code = 5347359841) 0.0 See_Comment [Automated [employer] ssage] The system which generated this result transmitted reference range: 0.0 - 10.0 /100 WBCs. The reference range was not used to interpret this result as normal/abnormal. NRBC x10^3 (test code = 7288854943) See_Comment [[employer]] The system which generated this result transmitted reference range: 10*3/?L. The reference range was not used to interpret this result as normal/abnormal. GRAN MAT (NEUT) % (test code = 770-8) 62.6 % IMM GRAN % (test code = 8617647215) 0.40 % LYMPH % (test code = 736-9) 22.0 % MONO % (test code = 5905-5) 11.0 % EOS % (test code = 713-8) 3.6 % BASO % (test code = 706-2) 0.4 % GRAN MAT x10^3(ANC) (test code = 1824317130) 5.28 10*3/uL 1.88-7.09 IMM GRAN x10^3 (test code = 3469722422) 0.03 10*3/uL 0.00-0.06 LYMPH x10^3 (test code = 731-0) 1.85 10*3/uL 1.32-3.29 MONO x10^3 (test code = 742-7) 0.93 10*3/uL 0.33-0.92 H EOS x10^3 (test code = 711-2) 0.30 10*3/uL 0.03-0.39 BASO x10^3 (test code = 704-7) 0.03 10*3/uL 0.01-0.07 Lab Interpretation (test code = 53645-4) Abnormal [facility] GLUCOSE (AUTOMATED)2023-02-18 17:16:18* Test Item Value Reference Range Interpretation Comme nts POCT GLU (test code = 8748381223) 193 mg/dL 70-110 H Notified Provide r Lab Interpretation (test code = 38429-9) Abnormal [facility] GLUCOSE (AUTOMATED)2023-02-18 13:15:11* Test Item Value Reference Range Interpretation Comme nts POCT GLU (test code = 2050156812) 194 mg/dL 70-110 H Notified Provide r Lab Interpretation (test code = 93972-0) Abnormal [facility] GLUCOSE (AUTOMATED)2023-02-18 02:26:46* Test Item Value Reference Range Interpretation Comme nts POCT GLU (test code = 4519908038) 185 mg/dL 70-110 H Lab Interpretation (test cod e = 85848-8) Abnormal [facility] GLUCOSE (AUTOMATED)2023-02-17 21:59:48* Test Item Value Reference Range Interpretation Comme nts POCT GLU (test code = 7576279425) 169 mg/dL 70-110 H Lab Interpretation (test cod e = 48564-4) Abnormal [facility] GLUCOSE (AUTOMATED)2023-02-17 16:52:41* Test Item Value Reference Range Interpretation Comme nts POCT GLU (test code = 0145592196) 193 mg/dL 70-110 H Lab Interpretation (test cod e = 46134-7) Abnormal [facility] GLUCOSE (AUTOMATED)2023-02-17 12:46:14* Test Item Value Reference Range Interpretation Comme nts POCT GLU (test code = 9541765637) 184 mg/dL 70-110 H Lab Interpretation (test cod e = 96515-9) Abnormal [facility] GLUCOSE (AUTOMATED)2023-02-17 02:03:56* Test Item Value Reference Range Interpretation Comme nts POCT GLU (test code = 5423734828) 207 mg/dL 70-110 H Lab Interpretation (test cod e = 58872-8) [facility] 22:06:44* Test Item Value Reference Range Interpretation Comme nts POCT GLU (test code = 4670569042) 189 mg/dL 70-110 H Lab Interpretation (test cod e = 80441-7) [facility]2023-02-16 16:33:39* Test Item Value Reference Range Interpretation Comme nts POCT GLU (test code = 3695561398) 241 mg/dL 70-110 H Lab Interpretation (test cod e = 13821-0) [facility]2023-[facility]-16 14:06:06* Test Item Value Reference Range Interpretation Comme nts POCT GLU (test code = 8829055284) 262 mg/dL 70-110 H Lab Interpretation (test cod e = 98618-8) Abnormal [facility] GLUCOSE (AUTOMATED)2023-02-16 11:31:28* Test Item Value Reference Range Interpretation Comme nts POCT GLU (test code = 6455162392) 160 mg/dL 70-110 H Lab Interpretation (test cod e = 61032-3) Abnormal [facility] GLUCOSE (AUTOMATED)2023-02-16 05:17:04* Test Item Value Reference Range Interpretation Comme nts POCT GLU (test code = 5705614923) 174 mg/dL 70-110 H Lab Interpretation (test cod e = 59930-2) [facility]2023-02-16 01:30:24* Test Item Value Reference Range Interpretation Comme nts POCT GLU (test code = 7468640251) 207 mg/dL 70-110 H Lab Interpretation (test cod e = 37138-5) [facility]2023-02-15 22:32:04* Test Item Value Reference Range Interpretation Comme nts POCT GLU (test code = 7571829569) 161 mg/dL 70-110 H Lab Interpretation (test cod e = 90549-9) Abnormal [facility] GLUCOSE (AUTOMATED)2023-02-15 16:57:38* Test Item Value Reference Range Interpretation Comme nts POCT GLU (test code = 9644880512) 176 mg/dL 70-110 H Lab Interpretation (test cod e = 34781-0) Abnormal [facility] AustinN-TERMINAL [id number] 14:17:57* Test Item Value Reference Range Interpretation Comme [facility] NT-proBNP (test code = 78382-9) 6130 pg/mL <=125 H LOW (test code = LOW) Positive: Heart Failure Likely Lab Interpretation (test code = 75810-1) [facility]ATED)2023-02-15 11:07:11* Test Item Value Reference Range Interpretation Comme [facility] POCT GLU (test code = 2186436195) 173 mg/dL 70-110 H Lab Interpretation (test cod e = 59382-7) [facility]normal [facility] (NA, K, CL, CO2, GLUCOSE, BUN, CREATININE, CA)2023-02-15 09:58:17* Test Item Value Reference Range Interpretation Comme [facility] NA (test code = 2725050207) 136 mmol/L 135-145 K (test code = 6161509899) 3.9 mmol/L 3.5-5.0 CL (test code = 2101339867) 102 mmol/L 98-108 CO2 TOTAL (test code = 6139793318) 26 mmol/L 23-31 AGAP (test code = 8210435094) 8 2-16 BUN (test code = 6338261263) 6 mg/dL 7-23 L GLUCOSE (test code = 4596702094) 168 mg/dL 70-110 H CREATININE (test code = 0846529167) 0.66 mg/dL 0.50-1.04 CALCIUM (test code = 8261136314) 8.7 mg/dL 8.6-10.6 eGFR (test code = 5184313150) 86.8 mL/min/1.73m2 LOW (test code = LOW) [...] imaging tests). Lab Interpretation (test code = 26647-9) Abnormal [facility] WITH [id number] 09:32:15* Test Item Value Reference Range Interpretation Comme nts WBC (test code = 6690-2) 7.23 See_Comment [[employer]] The system which generated this result transmitted reference range: 4.30 - 11.10 10*3/?L. The reference range was not used to interpret this result as normal/abnormal. RBC (test code = 789-8) 3.97 See_Comment [[employer]] The system which generated this result transmitted [...] g/dL 31.6-35.1 L RDW-SD (test code = 98158-2) 76.7 fL 39.0-49.9 H RDW-CV (test code = 788-0) 25.9 % 12.0-15.5 H PLT (test code = 777-3) 280 See_Comment [Automated messa ge] The system which generated this result transmitted reference range: 166 - 358 10*3/?L. The reference range was not used to interpret this result as normal/abnormal. MPV (test code = 09560-6) 10.0 fL 9.5-12.9 NRBC/100 WBC (test code = 0317123478) 0.0 See_Comment [Automated me ssage] The system which generated this result transmitted reference range: 0.0 - 10.0 /100 WBCs. The reference range was not used to interpret this result as normal/abnormal. NRBC x10^3 (test code = 2342778638) See_Comment [Automated messa ge] The system which generated this result transmitted reference range: 10*3/?L. The reference range was not used to interpret this result as normal/abnormal. GRAN MAT (NEUT) % (test code = 770-8) 62.7 % IMM GRAN % (test code = 7904979985) 0.40 % LYMPH % (test code = 736-9) 20.6 % MONO % (test code = 5905-5) 11.6 % EOS % (test code = 713-8) 4.4 % BASO % (test code = 706-2) 0.3 % GRAN MAT x10^3(ANC) (test code = 5934450864) 4.53 10*3/uL 1.88-7.09 IMM GRAN x10^3 (test code = 7904652402) 0.03 10*3/uL 0.00-0.06 LYMPH x10^3 (test code = 731-0) 1.49 10*3/uL 1.32-3.29 MONO x10^3 (test code = 742-7) 0.84 10*3/uL 0.33-0.92 EOS x10^3 (test code = 711-2) 0.32 10*3/uL 0.03-0.39 BASO x10^3 (test code = 704-7) 0.01-0.07 Lab Interpretation (test code = 61067-5) Abnormal [facility] GLUCOSE (AUTOMATED)2023-02-15 05:16:18* Test Item Value Reference Range Interpretation Comme nts POCT GLU (test code = 2099719913) 135 mg/dL 70-110 H Lab Interpretation (test cod e = 55316-4) Abnormal [facility] GLUCOSE (AUTOMATED)2023-02-15 01:03:19* Test Item Value Reference Range Interpretation Comme nts POCT GLU (test code = 1501057620) 129 mg/dL 70-110 H Lab Interpretation (test cod e = 72135-3) Abnormal [facility] GLUCOSE (AUTOMATED)2023-02-14 21:53:23* Test Item Value Reference Range Interpretation Comme nts POCT GLU (test code = 3718928271) 138 mg/dL 70-110 H Lab Interpretation (test cod e = 92239-3) Abnormal [facility] GLUCOSE (AUTOMATED)2023-02-14 16:31:19* Test Item Value Reference Range Interpretation Comme nts POCT GLU (test code = 3450126666) 218 mg/dL 70-110 H Lab Interpretation (test cod e = 07713-2) [facility]2023-02-14 12:11:56* Test Item Value Reference Range Interpretation Comme nts POCT GLU (test code = 6675983954) 169 mg/dL 70-110 H Lab Interpretation (test cod e = 93558-9) [facility]2023-02-14 08:34:37* Test Item Value Reference Range Interpretation Comme nts POCT GLU (test code = 4002024788) 173 mg/dL 70-110 H Lab Interpretation (test cod e = 18855-2) [facility]2023-02-14 04:53:56* Test Item Value Reference Range Interpretation Comme nts POCT GLU (test code = 2562202796) 154 mg/dL 70-110 H Lab Interpretation (test cod e = 71371-4) Abnormal [facility] GLUCOSE (AUTOMATED)2023-02-14 02:12:50* Test Item Value Reference Range Interpretation Comme nts POCT GLU (test code = 8663759709) 156 mg/dL 70-110 H Lab Interpretation (test cod e = 42128-5) [facility]2023-02-13 22:06:19* Test Item Value Reference Range Interpretation Comme nts POCT GLU (test code = 2586763088) 200 mg/dL 70-110 H Notified Provide r Lab Interpretation (test code = 01222-2) [facility]2023-02-13 17:06:42* Test Item Value Reference Range Interpretation Comme nts POCT GLU (test code = 2062940249) 184 mg/dL 70-110 H Lab Interpretation (test cod e = 73577-1) Abnormal [facility] GLUCOSE (AUTOMATED)2023-02-13 12:42:11* Test Item Value Reference Range Interpretation Comme nts POCT GLU (test code = 8748213121) 188 mg/dL 70-110 H Lab Interpretation (test cod e = 36052-2) [facility]2023-02-13 09:03:30* Test Item Value Reference Range Interpretation Comme nts POCT GLU (test code = 0690728995) 190 mg/dL 70-110 H Lab Interpretation (test cod e = 71013-0) [facility]2023-02-13 05:06:24* Test Item Value Reference Range Interpretation Comme nts POCT GLU (test code = 9315231236) 182 mg/dL 70-110 H Lab Interpretation (test cod e = 62161-5) [facility]2023-02-13 02:05:35* Test Item Value Reference Range Interpretation Comme nts POCT GLU (test code = 8763199432) 241 mg/dL 70-110 H Lab Interpretation (test cod e = 63216-2) [facility]2023-02[facility]12 22:33:00* Test Item Value Reference Range Interpretation Comme nts POCT GLU (test code = [id number]) 228 mg/dL 70-110 H Lab Interpretation (test cod e = 15451-3) Abnormal [facility] GLUCOSE (AUTOMATED)2023-02-12 16:54:55* Test Item Value Reference Range Interpretation Comme nts POCT GLU (test code = [id number]) 192 mg/dL 70-110 H Lab Interpretation (test cod e = 86914-3) Abnormal [facility] GLUCOSE (AUTOMATED)2023-02-12 13:09:31* Test Item Value Reference Range Interpretation Comme nts POCT GLU (test code = [id number]) 189 mg/dL 70-110 H Lab Interpretation (test cod e = 17317-9) Abnormal [facility] GLUCOSE (AUTOMATED)2023-02-12 09:07:10* Test Item Value Reference Range Interpretation Comme nts POCT GLU (test code = [id number]) 197 mg/dL 70-110 H Lab Interpretation (test cod e = 65891-6) Abnormal [facility] [facility]-12 05:10:50* Test Item Value Reference Range Interpretation Comme nts POCT GLU (test code = 3017597253) 231 mg/dL 70-110 H Lab Interpretation (test cod e = 86388-2) Abnormal [facility] GLUCOSE (AUTOMATED)2023-02-12 02:16:10* Test Item Value Reference Range Interpretation Comme nts POCT GLU (test code = 2973582938) 233 mg/dL 70-110 H Lab Interpretation (test cod e = 64523-3) Abnormal [facility] GLUCOSE (AUTOMATED)2023-02-11 22:19:45* Test Item Value Reference Range Interpretation Comme nts POCT GLU (test code = 5003244328) 249 mg/dL 70-110 H Lab Interpretation (test cod e = 62805-8) Abnormal [facility] GLUCOSE (AUTOMATED)2023-02-11 17:16:23* Test Item Value Reference Range Interpretation Comme nts POCT GLU (test code = 6457302685) 290 mg/dL 70-110 H Lab Interpretation (test cod e = 28818-7) Abnormal [facility] GLUCOSE (AUTOMATED)2023-02-11 12:57:30* Test Item Value Reference Range Interpretation Comme nts POCT GLU (test code = 2039144636) 225 mg/dL 70-110 H Lab Interpretation (test cod e = 87444-9) Abnormal [facility] GLUCOSE (AUTOMATED)2023-02-11 08:56:59* Test Item Value Reference Range Interpretation Comme [facility] POCT GLU (test code = 6511978447) 177 mg/dL 70-110 H Lab Interpretation (test cod e = 61810-3) Abnormal [facility] GLUCOSE (AUTOMATED)2023-02-11 04:45:57* Test Item Value Reference Range Interpretation Comme [facility] POCT GLU (test code = 0343223977) 274 mg/dL 70-110 H Lab Interpretation (test cod e = 64969-5) Abnormal [facility] GLUCOSE (AUTOMATED)2023-02-11 02:06:48* Test Item Value Reference Range Interpretation Comme [facility] POCT GLU (test code = 4179378060) 322 mg/dL 70-110 H Lab Interpretation (test cod e = 04014-8) Abnormal [facility] A VIRUS ANTIBODY [id number] 01:41:36* Test Item Value Reference Range Interpretation Comme [facility] HAVM Semi-Quantitative (test code = 78196-5) 0.01 LOW (test code = LOW) HAVAb IgM Interpretative Information: Reactive greater than or equal to 1.2 Biotin has been reported to cause a negative bias, interpret results relative to patient's use of biotin. [facility] A AB, IGG AND [id number] 23:42:13 * Test Item Value Reference Range Interpretation Comme [facility] HAV Total (test code = 9513138284) Negative HAVT Semi-Quantitative (test code = 5239027386) 1.49 [facility] B SURFACE [id number] 23:42:13* Test Item Value Reference Range Interpretation Comme [facility] HBsAB (test code = 2592371112) Negative HBsAb Semi-Quantitative (test code = 7661519023) 0.10 mIU/mL LOW (test code = LOW) Interpretation: ?Hepatitis B Surface Antibody ? Negative - Patient is considered to be not immune to infection with HBV. ? ? Positive - Anti-HBs detected at greater than or equal to 12 mIU/mL. ?Patient is considered to be immune to infection with HBV. ? [facility] [id number] 23:42:13* Test Item Value Reference Range Interpretation Comme nts HCV Ab (test code = 46657-3) Negative HCV Semi-Quantitative (test code = 56483-6) 0.01 [facility] B CORE ANTIBODY [id number] 23:30:13* Test Item Value Reference Range Interpretation Comme nts HBCM Semi-Quantitative (test code = 22500-7) 0.02 LOW (test code = LOW) Biotin has been reported to cause a negative bias, interpret results relative to patient's use of biotin. [facility] GLUCOSE (AUTOMATED)2023-02-10 21:32:42* Test Item Value Reference Range Interpretation Comme nts POCT GLU (test code = 9739129120) 327 mg/dL 70-110 H Lab Interpretation (test cod e = 84011-3) Abnormal [facility] B SURFACE [id number] 19:57:53 * Test Item Value Reference Range Interpretation Comme nts HBsAg Semi-Quantitative (kevin t code = 5195-3) 0.07 Negative [facility] GLUCOSE (AUTOMATED)2023-02-10 17:21:48* Test Item Value Reference Range Interpretation Comme nts POCT GLU (test code = 3707401749) 308 mg/dL 70-110 H Lab Interpretation (test cod e = 81446-6) Abnormal [facility] GLUCOSE (AUTOMATED)2023-02-10 13:24:53* Test Item Value Reference Range Interpretation Comme nts POCT GLU (test code = 5886914669) 266 mg/dL 70-110 H Lab Interpretation (test cod e = 71957-3) Abnormal [facility] GLUCOSE (AUTOMATED)2023-02-10 08:48:41* Test Item Value Reference Range Interpretation Comme nts POCT GLU (test code = 2187435489) 270 mg/dL 70-110 H Lab Interpretation (test cod e = 28000-1) Abnormal [facility] GLUCOSE (AUTOMATED)2023-02-10 04:52:34* Test Item Value Reference Range Interpretation Comme nts POCT GLU (test code = 7251673025) 334 mg/dL 70-110 H Lab Interpretation (test cod e = 71744-0) Abnormal [facility] GLUCOSE (AUTOMATED)2023-02-10 01:13:46* Test Item Value Reference Range Interpretation Comme nts POCT GLU (test code = 6773655505) 372 mg/dL 70-110 H Lab Interpretation (test cod e = 36933-5) Abnormal [facility] GLUCOSE (AUTOMATED)2023-02-09 20:59:10* Test Item Value Reference Range Interpretation Comme nts POCT GLU (test code = 4751807122) 364 mg/dL 70-110 H Lab Interpretation (test cod e = 12146-3) Abnormal [facility] GLUCOSE (AUTOMATED)2023-02-09 16:50:31* Test Item Value Reference Range Interpretation Comme nts POCT GLU (test code = 3696397911) 356 mg/dL 70-110 H Lab Interpretation (test cod e = 82482-4) Abnormal [facility] GLUCOSE (AUTOMATED)2023-02-09 13:03:41* Test Item Value Reference Range Interpretation Comme nts POCT GLU (test code = 2064204058) 257 mg/dL 70-110 H Lab Interpretation (test cod e = 50834-1) Abnormal [facility] METABOLIC PANEL (NA, K, CL, CO2, GLUCOSE, BUN, CREATININE, CA)2023-02-09 11:02:51* Test Item Value Reference Range Interpretation Comme nts NA (test code = 0746065208) 135 mmol/L 135-145 K (test code = 3607291292) 3.1 mmol/L 3.5-5.0 L CL (test code = 7807125521) 89 mmol/L 98-108 L CO2 TOTAL (test code = 6498552998) 39 mmol/L 23-31 H AGAP (test code = 3043406517) 7 2-16 BUN (test code = 7325371460) 33 mg/dL 7-23 H GLUCOSE (test code = 2492237520) 290 mg/dL 70-110 H CREATININE (test code = 7711416049) 0.89 mg/dL 0.50-1.04 CALCIUM (test code = 5654250076) 8.6 mg/dL 8.6-10.6 eGFR (test code = 5370484218) 61.5 mL/min/1.73m2 LOW (test code = LOW) [...] imaging tests). Lab Interpretation (test code = 13438-5) Abnormal [facility] WITH [id number] 10:41:48* Test Item Value Reference Range Interpretation Comme nts WBC (test code = 6690-2) 10.89 See_Comment [Automated [place]] The system which generated this result transmitted reference range: 4.30 - 11.10 10*3/?L. The reference range was not used to interpret this result as normal/abnormal. RBC (test code = 789-8) 3.81 See_Comment L [Automated [place]] The system which generated this result transmitted [...] g/dL 31.6-35.1 L RDW-SD (test code = 21803-2) 69.6 fL 39.0-49.9 H RDW-CV (test code = 788-0) 24.5 % 12.0-15.5 H PLT (test code = 777-3) 244 See_Comment [Automated messa ge] The system which generated this result transmitted reference range: 166 - 358 10*3/?L. The reference range was not used to interpret this result as normal/abnormal. MPV (test code = 60744-5) 9.9 fL 9.5-12.9 NRBC/100 WBC (test code = 9021215890) 0.3 See_Comment [Automated [employer] ssage] The system which generated this result transmitted reference range: 0.0 - 10.0 /100 WBCs. The reference range was not used to interpret this result as normal/abnormal. NRBC x10^3 (test code = 9325407947) 0.03 See_Comment [Automated [employer] ge] The system which generated this result transmitted reference range: 10*3/?L. The reference range was not used to interpret this result as normal/abnormal. GRAN MAT (NEUT) % (test code = 770-8) 75.8 % IMM GRAN % (test code = 6716938775) 0.60 % LYMPH % (test code = 736-9) 14.4 % MONO % (test code = 5905-5) 9.1 % EOS % (test code = 713-8) 0.0 % BASO % (test code = 706-2) 0.1 % GRAN MAT x10^3(ANC) (test code = 4760050102) 8.25 10*3/uL 1.88-7.09 H IMM GRAN x10^3 (test code = 5575532751) 0.07 10*3/uL 0.00-0.06 H LYMPH x10^3 (test code = 731-0) 1.57 10*3/uL 1.32-3.29 MONO x10^3 (test code = 742-7) 0.99 10*3/uL 0.33-0.92 H EOS x10^3 (test code = 711-2) 0.03-0.39 L BASO x10^3 (test code = 704-7) 0.01-0.07 Lab Interpretation (test code = 43957-7) Abnormal [facility] GLUCOSE (AUTOMATED)2023-02-09 09:47:04* Test Item Value Reference Range Interpretation Comme nts POCT GLU (test code = 9493442376) 307 mg/dL 70-110 H Lab Interpretation (test cod e = 37705-2) Abnormal [facility] GLUCOSE (AUTOMATED)2023-02-09 04:43:03* Test Item Value Reference Range Interpretation Comme nts POCT GLU (test code = 9417775389) 367 mg/dL 70-110 H Lab Interpretation (test cod e = 59728-9) Abnormal [facility] GLUCOSE (AUTOMATED)2023-02-09 01:18:56* Test Item Value Reference Range Interpretation Comme nts POCT GLU (test code = 6185354246) 411 mg/dL 70-110 H Lab Interpretation (test cod e = 97249-4) [id number] 23:01:40* Test Item Value Reference Range Interpretation Comme nts Blood Culture-Aerobic (test code = 04154-0) No organisms isolated No growth Previous preliminary [...] 1801 CDT Blood Culture-Anaerobic (test code = 14192-6) No organisms isolated No growth Previous preliminary [...] 1801 CDT Lab Interpretation (test code = 26218-1) Normal [facility] CULTURE [id number] 23:01:40* Test Item Value Reference Range Interpretation Comme nts Blood Culture-Aerobic (test code = 74182-9) No organisms isolated No growth Previous preliminary [...] 1801 CDT Blood Culture-Anaerobic (test code = 98763-3) No organisms isolated No growth Previous preliminary [...] 1801 CDT Lab Interpretation (test code = 32070-6) Normal [facility] GLUCOSE (AUTOMATED)2023-02-08 21:22:33* Test Item Value Reference Range Interpretation Comme nts POCT GLU (test code = 2865506563) 399 mg/dL 70-110 H Lab Interpretation (test cod e = 38797-7) Abnormal [facility] GLUCOSE (AUTOMATED)2023-02-08 16:34:35* Test Item Value Reference Range Interpretation Comme nts POCT GLU (test code = 8873166142) 422 mg/dL 70-110 H Lab Interpretation (test cod e = 06669-4) Abnormal [facility] GLUCOSE (AUTOMATED)2023-02-08 12:36:31* Test Item Value Reference Range Interpretation Comme nts POCT GLU (test code = 2117040234) 330 mg/dL 70-110 H Lab Interpretation (test cod e = 23936-4) Abnormal [facility] METABOLIC PANEL (NA, K, CL, CO2, GLUCOSE, BUN, CREATININE, CA)2023-02-08 11:16:59* Test Item Value Reference Range Interpretation Comme nts NA (test code = 1479397021) 135 mmol/L 135-145 K (test code = 9174404677) 3.5 mmol/L 3.5-5.0 CL (test code = 3617036160) 94 mmol/L 98-108 L CO2 TOTAL (test code = 8164222544) 28 mmol/L 23-31 AGAP (test code = 2772555570) 13 2-16 BUN (test code = 7982552166) 33 mg/dL 7-23 H GLUCOSE (test code = 7001079278) 325 mg/dL 70-110 H CREATININE (test code = 6052506486) 1.00 mg/dL 0.50-1.04 CALCIUM (test code = 3846286915) 8.8 mg/dL 8.6-10.6 eGFR (test code = 0239128582) 53.8 mL/min/1.73m2 LOW (test code = LOW) [...] imaging tests). Lab Interpretation (test code = 53667-1) [facility] 11:08:02* Test Item Value Reference Range Interpretation Comme [facility] POCT GLU (test code = 2137649842) 337 mg/dL 70-110 H Lab Interpretation (test cod e = 15106-6) Abnormal [facility] WITH [id number] 10:54:55* Test Item Value Reference Range Interpretation Comme [facility] WBC (test code = 6690-2) 15.95 See_Comment [...] g/dL 31.6-35.1 L RDW-SD (test code = 66064-2) 67.8 fL 39.0-49.9 H RDW-CV (test code = 788-0) 24.8 % 12.0-15.5 H PLT (test code = 777-3) 262 See_Comment [Automated message] The system which generated this result transmitted reference range: 166 - 358 10*3/?L. The reference range was not used to interpret this result as normal/abnormal. MPV (test code = 51387-1) 10.3 fL 9.5-12.9 NRBC/100 WBC (test code = 1844165488) 0.3 See_Comment [Automated message] The system which generated this result transmitted reference range: 0.0 - 10.0 /100 WBCs. The reference range was not used to interpret this result as normal/abnormal. NRBC x10^3 (test code = 6007175791) 0.04 See_Comment [Automated message] The system which generated this result transmitted reference range: 10*3/?L. The reference range was not used to interpret this result as normal/abnormal. GRAN MAT (NEUT) % (test code = 770-8) 92.4 % IMM GRAN % (test code = 4012076171) 0.80 % LYMPH % (test code = 736-9) 3.4 % MONO % (test code = 5905-5) 3.2 % EOS % (test code = 713-8) 0.1 % BASO % (test code = 706-2) 0.1 % GRAN MAT x10^3(ANC) (test code = 8222904077) 14.76 10*3/uL 1.88-7.09 H IMM GRAN x10^3 (test code = 6056193152) 0.12 10*3/uL 0.00-0.06 H LYMPH x10^3 (test code = 731-0) 0.54 10*3/uL 1.32-3.29 L MONO x10^3 (test code = 742-7) 0.51 10*3/uL 0.33-0.92 EOS x10^3 (test code = 711-2) 0.03-0.39 L BASO x10^3 (test code = 704-7) 0.01-0.07 Lab Interpretation (test code = 13321-5) Abnormal [facility] GLUCOSE (AUTOMATED)2023-02-08 05:44:57* Test Item Value Reference Range Interpretation Comme [facility] POCT GLU (test code = 8713965945) 337 mg/dL 70-110 H Lab Interpretation (test cod e = 36326-7) Abnormal [facility] GLUCOSE (AUTOMATED)2023-02-08 01:02:53* Test Item Value Reference Range Interpretation Comme nts POCT GLU (test code = 0872989944) 307 mg/dL 70-110 H Lab Interpretation (test cod e = 61065-9) [facility] 21:04:59* Test Item Value Reference Range Interpretation Comme [facility] POCT GLU (test code = 6169967599) 301 mg/dL 70-110 H Lab Interpretation (test cod e = 74743-5) [facility] 18:17:39* Test Item Value Reference Range Interpretation Comme [facility] Height (test code = 1509680264) 66 in Weight (test code = 9832038433) 205 lbs Systolic BP (test code = 2999786248) 120 mmHg Diastolic BP (test code = 4075011594) 73 mmHg Heart Rate (test code = 7109030355) 75 bpm LVOT stroke volume (test code = 6720683823) 48.20 cm3 EF(Teich) (test code = 8083687119) 52.90 % LVIDD (test code = 7243451276) 4.90 cm LVIDS (test code = 5391044501) 3.60 cm Left Ventricular End Systolic Volume by Teichholz Method (test code = 1648259) 53.7 mL Left Ventricular End Diastolic Volume by Teichholz Method (test code = 3975749) 113.9 mL IVS (test code = 7252119412) 1.07 cm LVPWD (test code = 3108077271) 1.11 cm LVOT diameter (test code = 8071809138) 2.03 cm LVOT area (test code = 3160028548) 3.20 cm2 FS (test code = 9145126045) 27 % MV Peak E Rohini (test code = 4056073028) 123.1 cm/s MV Peak A Rohini (test code = 0483511782) 53.6 cm/s E/A ratio (test code = 4681673324) 2.30 ratio E wave decelartion time (test code = 2705118654) 0.24 s MV E/e' septal (test code = 5158477575) 9.5 cm/s LA volume (BP) (test code = 0062791837) 87.3 mL LVOT peak rohini (test code = 7264795743) 68.9 cm/s LVOT mn grad (test code = 2809275162) 0.9 mmHg Left Ventricular Cardiac Output (test code = 1940649) 3.5 L/min LA size (test code = 7315928231) 4.6 cm LAV(MOD-sp2) (test code = 4300936213) 88.20 mL LAV(MOD-sp4) (test code = 7504144234) 76.50 mL Tapse (test code = 3970729569) 1.47 cm AV LVOT peak gradient (test code = 7826085126) 1.90 mmHg LVOT peak VTI (test code = 9298623052) 14.9 cm Aortic HR (test code = 4229231134) 72.60 BPM LV V1 mean (test code = 1350162160) 44.70 cm/s MV Prop V (test code = 7584393563) 39.70 cm/s TR Peak Rohini (test code = 4720397193) 292.5 cm/s Triscuspid Valve Regurgitation Peak Gradient (test code = 7478694400) 34.3 mmHg Ao root diam (test code = 9709731702) 3.40 cm Aortic root (test code = 8547027159) 3.4 cm Ao root annulus (test code = 5022954263) 3.4 cm PW (test code = 6232653581) 1.11 cm 0.6-1.1 EF - 2D (test code = 35307158) 52.90 % Interventricular Septum Diastolic Thickness by 2D (test code = 0246987) 1.07 cm LA Volume Index (BP) (test code = 0282560982) 43.2 mL/m2 BSA (test code = 7780814680) 2.02 m2 Aortic valve mean velocity (test code = 2614715565) 97.0 cm/s Ao peak rohini (test code = 9126310691) 162.1 cm/s Ao VTI (test code = 9087262066) 25.6 cm AV area by cont VTI (test code = 4213301350) 1.9 cm2 AV area peak rohini (test code = 9906945058) 1.4 cm2 Ao max PG (test code = 8801313266) 10.50 mm[Hg] AV peak gradient (test code = 8436939629) 10.5 mmHg AV valve area (test code = 2438359130) 1.88 cm2 AV mean gradient (test code = 5192605549) 4.6 mmHg Radiology Study observation (narrative) (test code = 29449-9) LOW (test code = LOW) ?Left?Ventricle: Left [...] lateral and apex.All other segments are normal. [facility] [id number] 17:44:53* Test Item Value Reference Range Interpretation Comme nts TROPONIN I (test code = 4099478571) 0.226 ng/mL <=0.034 H LOW (test code [...] of biotin. Lab Interpretation (test code = 57925-2) Abnormal [facility] METABOLIC PANEL (NA, K, CL, CO2, GLUCOSE, BUN, CREATININE, CA)2023-02-07 17:34:54* Test Item Value Reference Range Interpretation Comme nts NA (test code = 6975392147) 140 mmol/L 135-145 K (test code = 7709373248) 3.9 mmol/L 3.5-5.0 CL (test code = 6516892971) 98 mmol/L 98-108 CO2 TOTAL (test code = 7810538644) 33 mmol/L 23-31 H AGAP (test code = 4409805329) 9 2-16 BUN (test code = 7651566167) 30 mg/dL 7-23 H GLUCOSE (test code = 0502191058) 285 mg/dL 70-110 H CREATININE (test code = 2936245072) 1.08 mg/dL 0.50-1.04 H CALCIUM (test code = 8047561987) 8.8 mg/dL 8.6-10.6 eGFR (test code = 5690350175) 49.2 mL/min/1.73m2 LOW (test code = LOW) [...] imaging tests). Lab Interpretation (test code = 45580-2) [facility]* Test Item Value Reference Range Interpretation Comme nts MAGNESIUM (test code = 7639694038) 1.9 mg/dL 1.7-2.4 Lab Interpretation (test cod e = 20061-8) Normal [facility] WITH [id number] 17:26:54* Test Item Value Reference Range Interpretation [...] g/dL 31.6-35.1 L RDW-SD (test code = 73267-3) 65.7 fL 39.0-49.9 H RDW-CV (test code = 788-0) 24.3 % 12.0-15.5 H PLT (test code = 777-3) 252 See_Comment [Automated message] The system which generated this result transmitted reference range: 166 - 358 10*3/?L. The reference range was not used to interpret this result as normal/abnormal. MPV (test code = 58822-1) 10.0 fL 9.5-12.9 NRBC/100 WBC (test code = 9281425626) 0.2 See_Comment [Automated message] The system which generated this result transmitted reference range: 0.0 - 10.0 /100 WBCs. The reference range was not used to interpret this result as normal/abnormal. NRBC x10^3 (test code = 1186874169) 0.02 See_Comment [Automated message] The system which generated this result transmitted reference range: 10*3/?L. The reference range was not used to interpret this result as normal/abnormal. GRAN MAT (NEUT) % (test code = 770-8) 91.7 % IMM GRAN % (test code = 9354262623) 0.50 % LYMPH % (test code = 736-9) 4.3 % MONO % (test code = 5905-5) 3.4 % EOS % (test code = 713-8) 0.0 % BASO % (test code = 706-2) 0.1 % GRAN MAT x10^3(ANC) (test code = 6764725779) 10.24 10*3/uL 1.88-7.09 H IMM GRAN x10^3 (test code = 1920215356) 0.06 10*3/uL 0.00-0.06 LYMPH x10^3 (test code = 731-0) 0.48 10*3/uL 1.32-3.29 L MONO x10^3 (test code = 742-7) 0.38 10*3/uL 0.33-0.92 EOS x10^3 (test code = 711-2) 0.03-0.39 L BASO x10^3 (test code = 704-7) 0.01-0.07 Lab Interpretation (test code = 68185-2) Abnormal [facility] GLUCOSE (AUTOMATED)2023-02-07 16:44:05* Test Item Value Reference Range Interpretation Comme nts POCT GLU (test code = 8978276590) 281 mg/dL 70-110 H Lab Interpretation (test cod e = 55574-9) Abnormal [facility] GLUCOSE (AUTOMATED)2023-02-07 12:28:58* Test Item Value Reference Range Interpretation Comme nts POCT GLU (test code = 2553515141) 266 mg/dL 70-110 H Lab Interpretation (test cod e = 74588-4) [facility] [id number] 11:55:36* Test Item Value Reference Range Interpretation Comme nts TROPONIN I (test code = 4005497432) 0.295 ng/mL <=0.034 H LOW (test code [...] of biotin. Lab Interpretation (test code = 83891-8) [facility]23-[facility]-07 09:39:18* Test Item Value Reference Range Interpretation Comme [facility] POCT GLU (test code = 9505501034) 257 mg/dL 70-110 H Lab Interpretation (test cod e = 56086-1) [facility] [id number] 05:34:20* Test Item Value Reference Range Interpretation Comme [facility] TROPONIN I (test code = 9844711473) 0.437 ng/mL <=0.034 H LOW (test code [...] of biotin. Lab Interpretation (test code = 26938-5) [facility] (NA, K, CL, CO2, GLUCOSE, BUN, CREATININE, CA)2023-02-07 05:23:38* Test Item Value Reference Range Interpretation Comme nts NA (test code = 6617137056) 139 mmol/L 135-145 K (test code = 4171923434) 4.2 mmol/L 3.5-5.0 CL (test code = 8712515070) 98 mmol/L 98-108 CO2 TOTAL (test code = 2855515142) 31 mmol/L 23-31 AGAP (test code = 3324414543) 10 2-16 BUN (test code = 3890517064) 23 mg/dL 7-23 GLUCOSE (test code = 5520530278) 246 mg/dL 70-110 H CREATININE (test code = 3441112090) 0.85 mg/dL 0.50-1.04 CALCIUM (test code = 7174553534) 8.7 mg/dL 8.6-10.6 eGFR (test code = 6146664345) 64.9 mL/min/1.73m2 LOW (test code = LOW) [...] imaging tests). Lab Interpretation (test code = 30711-4) [facility]:23:[facility]* Test Item Value Reference Range Interpretation Comme nts MAGNESIUM (test code = 1887617776) 1.3 mg/dL 1.7-2.4 L Lab Interpretation (test cod e = 14559-2) [facility] 05:23:38* Test Item Value Reference Range Interpretation Comme nts PHOSPHORUS (test code = 8266560737) 3.5 mg/dL 2.5-5.0 Lab Interpretation (test cod e = 94561-4) Normal [facility] [id number] 05:04:53* Test Item Value Reference Range Interpretation [...] result as normal/abnormal. MPV (test code = 33165-9) 9.7 fL 9.5-12.9 RDW-CV (test code = 788-0) 23.7 % 12.0-15.5 H RDW-SD (test code = 17793-7) 63.2 fL 39.0-49.9 H NRBC x10^3 (test code = 0916782101) 0.05 See_Comment [Automated messa ge] The system which generated this result transmitted reference range: 10*3/?L. The reference range was not used to interpret this result as normal/abnormal. NRBC/100 WBC (test code = 5561146670) 0.5 See_Comment [Automated messa ge] The system which generated this result transmitted reference range: 0.0 - 10.0 /100 WBCs. The reference range was not used to interpret this result as normal/abnormal. IPF % (test code = 8369404912) Lab Interpretation (test code = 81520-9) Abnormal [facility] GLUCOSE (AUTOMATED)2023-02-07 04:56:31* Test Item Value Reference Range Interpretation Comme nts POCT GLU (test code = 0465141335) 225 mg/dL 70-110 H Lab Interpretation (test cod e = 92138-1) Abnormal [facility] GLUCOSE (AUTOMATED)2023-02-07 00:52:59* Test Item Value Reference Range Interpretation Comme nts POCT GLU (test code = 3289743619) 267 mg/dL 70-110 H Lab Interpretation (test cod e = 40346-6) [facility] [id number] 23:45:26* Test Item Value Reference Range Interpretation Comme nts TROPONIN I (test code = 5384737646) 0.379 ng/mL <=0.034 H LOW (test code [...] of biotin. Lab Interpretation (test code = 80120-6) Abnormal [facility] GLUCOSE (AUTOMATED)2023-02-06 21:24:59* Test Item Value Reference Range Interpretation Comme nts POCT GLU (test code = 7102616211) 258 mg/dL 70-110 H Lab Interpretation (test cod e = 17575-8) Abnormal [facility] GLUCOSE (AUTOMATED)2023-02-06 17:38:25* Test Item Value Reference Range Interpretation Comme nts POCT GLU (test code = 6833738352) 249 mg/dL 70-110 H Lab Interpretation (test cod e = 24320-6) [facility] [id number]-[id number] 14:55:40* Test Item Value Reference Range Interpretation Comme nts NT-proBNP (test code = 91621-3) 69079 pg/mL <=125 H LOW (test code = LOW) Positive: Heart Failure Likely Lab Interpretation (test code = 86309-6) [facility] [id number] 14:55:40* Test Item Value Reference Range Interpretation Comme nts NT-proBNP (test code = 36002-9) 83665 pg/mL <=125 H LOW (test code = LOW) Positive: Heart Failure Likely Lab Interpretation (test code = 13870-1) Abnormal [facility] GLUCOSE (AUTOMATED)2023-02-06 13:11:26* Test Item Value Reference Range Interpretation Comme nts POCT GLU (test code = 3567144966) 244 mg/dL 70-110 H Lab Interpretation (test cod e = 53131-5) Abnormal [facility] GLUCOSE (AUTOMATED)2023-02-06 13:11:26* Test Item Value Reference Range Interpretation Comme nts POCT GLU (test code = 9004247254) 244 mg/dL 70-110 H Lab Interpretation (test cod e = 48198-3) [facility] + Lactic [id number] 06:31:17* Test Item Value Reference Range Interpretation Comme nts PH (test code = 2) 7.38 7.35-7.45 PCO2 (test code = 1446422879) 43 See_Comment [Automated messa ge] The system which generated this result transmitted reference range: 35 - 45 mmHg. The reference range was not used to interpret this result as normal/abnormal. PO2 (test code = 5875363887) 50 See_Comment L [Automated messa ge] The system which generated this result transmitted reference range: 80 - 100 mmHg. The reference range was not used to interpret this result as normal/abnormal. HCO3 (test code = 3720848780) 25 See_Comment [Automated messa ge] The system which generated this result transmitted reference range: 22 - 26 mEq/L. The reference range was not used to interpret this result as normal/abnormal. BE (test code = 6731442403) -0.7 See_Comment [Automated messa ge] The system which generated this result transmitted reference range: -3.0 - 3.0 mEq/L. The reference range was not used to interpret this result as normal/abnormal. THB (test code = 6980259570) 10.7 g/dL 12.0-16.0 L %O2HB (test code = 9636483521) 84.8 % 94.0-99.0 L %COHB ART (test code = 5926726285) 0.4 % 0.0-1.5 %METHB ART (test code = 2518637420) 0.5 % 0.4-1.5 VOL%O2 ART (test code = 2689649478) 12.8 % 15.0-23.0 L NA (test code = 1356642094) 140 mmol/L 135-145 K+ (test code = 2925497372) 4.8 mmol/L 3.5-5.0 AC CA IONZ (test code = 0550481906) 5.00 mg/dL 4.50-5.30 GLUCOSE (test code = 0799562559) 175 mg/dL 70-110 H LACTIC ACID (test code = 9120635624) 1.87 mmol/L 0.50-2.20 Lab Interpretation (test code = 16687-1) [facility] + Lactic [id number] 06:31:17* Test Item Value Reference Range Interpretation Comme nts PH (test code = 2) 7.38 7.35-7.45 PCO2 (test code = 5760455238) 43 See_Comment [Automated messa ge] The system which generated this result transmitted reference range: 35 - 45 mmHg. The reference range was not used to interpret this result as normal/abnormal. PO2 (test code = 6500640818) 50 See_Comment L [Automated messa ge] The system which generated this result transmitted reference range: 80 - 100 mmHg. The reference range was not used to interpret this result as normal/abnormal. HCO3 (test code = 8039685838) 25 See_Comment [Automated messa ge] The system which generated this result transmitted reference range: 22 - 26 mEq/L. The reference range was not used to interpret this result as normal/abnormal. BE (test code = 7055223323) -0.7 See_Comment [Automated messa ge] The system which generated this result transmitted reference range: -3.0 - 3.0 mEq/L. The reference range was not used to interpret this result as normal/abnormal. THB (test code = 9616302461) 10.7 g/dL 12.0-16.0 L %O2HB (test code = 0422267183) 84.8 % 94.0-99.0 L %COHB ART (test code = 0684067351) 0.4 % 0.0-1.5 %METHB ART (test code = 3041937387) 0.5 % 0.4-1.5 VOL%O2 ART (test code = 7662287479) 12.8 % 15.0-23.0 L NA (test code = 9418967802) 140 mmol/L 135-145 K+ (test code = 9981144350) 4.8 mmol/L 3.5-5.0 AC CA IONZ (test code = 6106863161) 5.00 mg/dL 4.50-5.30 GLUCOSE (test code = 6441618814) 175 mg/dL 70-110 H LACTIC ACID (test code = 1907081263) 1.87 mmol/L 0.50-2.20 Lab Interpretation (test code = 31740-8) Abnormal [facility] GLUCOSE (AUTOMATED)2023-02-06 05:35:42* Test Item Value Reference Range Interpretation Comme nts POCT GLU (test code = 8608142604) 176 mg/dL 70-110 H Lab Interpretation (test cod e = 39725-7) Abnormal [facility] GLUCOSE (AUTOMATED)2023-02-06 02:02:51* Test Item Value Reference Range Interpretation Comme nts POCT GLU (test code = 6613025391) 181 mg/dL 70-110 H Lab Interpretation (test cod e = 63192-7) Abnormal [facility] GLUCOSE (AUTOMATED)2023-02-05 22:51:35* Test Item Value Reference Range Interpretation Comme nts POCT GLU (test code = 5692895832) 167 mg/dL 70-110 H Lab Interpretation (test cod e = 27512-8) [facility] 17:17:43* Test Item Value Reference Range Interpretation Comme nts POCT GLU (test code = 1855327563) 171 mg/dL 70-110 H Lab Interpretation (test cod e = 85020-4) [facility] 13:33:07* Test Item Value Reference Range Interpretation Comme nts POCT GLU (test code = 5705724260) 207 mg/dL 70-110 H Lab Interpretation (test cod e = 70944-8) Abnormal [facility] GLUCOSE (AUTOMATED)2023-02-05 09:34:22* Test Item Value Reference Range Interpretation Comme nts POCT GLU (test code = 8052164553) 159 mg/dL 70-110 H Lab Interpretation (test cod e = 08821-1) Abnormal [facility] GLUCOSE (AUTOMATED)2023-02-05 04:19:01* Test Item Value Reference Range Interpretation Comme nts POCT GLU (test code = 2582763977) 219 mg/dL 70-110 H Lab Interpretation (test cod e = 06861-7) Abnormal [facility] GLUCOSE (AUTOMATED)2023-02-05 02:04:20* Test Item Value Reference Range Interpretation Comme nts POCT GLU (test code = 9090944018) 243 mg/dL 70-110 H Lab Interpretation (test cod e = 83298-2) [facility] 21:32:12* Test Item Value Reference Range Interpretation Comme nts POCT GLU (test code = 2708537275) 192 mg/dL 70-110 H Lab Interpretation (test cod e = 91201-0) Abnormal [facility] GLUCOSE (AUTOMATED)2023-02-04 16:41:55* Test Item Value Reference Range Interpretation Comme nts POCT GLU (test code = 0357249128) 186 mg/dL 70-110 H Lab Interpretation (test cod e = 85917-0) Abnormal [facility] GLUCOSE (AUTOMATED)2023-02-04 13:02:49* Test Item Value Reference Range Interpretation Comme [facility] POCT GLU (test code = 4810339921) 120 mg/dL 70-110 H Lab Interpretation (test cod e = 04411-7) Abnormal [facility] ABG + LACTIC [id number] 12:48:14* Test Item Value Reference Range Interpretation Comme [facility] PH (test code = 2) 7.39 7.35-7.45 PCO2 (test code = 2246946609) 38 See_Comment [Automated messa ge] The system which generated this result transmitted reference range: 35 - 45 mmHg. The reference range was not used to interpret this result as normal/abnormal. PO2 (test code = 2934230997) 141 See_Comment H [Automated messa ge] The system which generated this result transmitted reference range: 80 - 100 mmHg. The reference range was not used to interpret this result as normal/abnormal. HCO3 (test code = 9615442938) 22 See_Comment [Automated messa ge] The system which generated this result transmitted reference range: 22 - 26 mEq/L. The reference range was not used to interpret this result as normal/abnormal. BE (test code = 5896576155) -2.2 See_Comment [Automated messa ge] The system which generated this result transmitted reference range: -3.0 - 3.0 mEq/L. The reference range was not used to interpret this result as normal/abnormal. LACTIC ACID (test code = 9152429371) 1.35 mmol/L 0.50-2.20 COOXERR Lab Interpretation (test code = 02906-4) Abnormal [facility] ABG + LACTIC [id number] 12:48:14* Test Item Value Reference Range Interpretation Comme [facility] PH (test code = 2) 7.39 7.35-7.45 PCO2 (test code = 3953228569) 38 See_Comment [Automated messa ge] The system which generated this result transmitted reference range: 35 - 45 mmHg. The reference range was not used to interpret this result as normal/abnormal. PO2 (test code = 1849314264) 141 See_Comment H [Automated messa ge] The system which generated this result transmitted reference range: 80 - 100 mmHg. The reference range was not used to interpret this result as normal/abnormal. HCO3 (test code = 3154996837) 22 See_Comment [Automated messa ge] The system which generated this result transmitted reference range: 22 - 26 mEq/L. The reference range was not used to interpret this result as normal/abnormal. BE (test code = 6540346385) -2.2 See_Comment [Automated messa ge] The system which generated this result transmitted reference range: -3.0 - 3.0 mEq/L. The reference range was not used to interpret this result as normal/abnormal. LACTIC ACID (test code = 0793774364) 1.35 mmol/L 0.50-2.20 COOXERR Lab Interpretation (test code = 61530-9) [facility] / [id number] 12:12:14* Test Item Value Reference Range Interpretation [...] the indications. Lab Interpretation (test code = 37031-3) [facility] 10:20:25* Test Item Value Reference Range Interpretation Comme nts PHOSPHORUS (test code = 2039391269) 4.9 mg/dL 2.5-5.0 Lab Interpretation (test cod e = 74549-2) [facility] (NA, K, CL, CO2, GLUCOSE, BUN, CREATININE, CA)2023-02-04 10:20:25* Test Item Value Reference Range Interpretation Comme nts NA (test code = 6686439671) 136 mmol/L 135-145 K (test code = 3906933592) 4.9 mmol/L 3.5-5.0 CL (test code = 3905312843) 104 mmol/L 98-108 CO2 TOTAL (test code = 1914187799) 22 mmol/L 23-31 L AGAP (test code = 9388957916) 10 2-16 BUN (test code = 3839338743) 44 mg/dL 7-23 H GLUCOSE (test code = 4739148533) 101 mg/dL 70-110 CREATININE (test code = 6771405755) 1.41 mg/dL 0.50-1.04 H CALCIUM (test code = 9824597034) 8.2 mg/dL 8.6-10.6 L eGFR (test code = 0622880400) 36.2 mL/min/1.73m2 LOW (test code = LOW) [...] imaging tests). Lab Interpretation (test code = 79654-5) [facility] 10:20:25* Test Item Value Reference Range Interpretation Comme nts MAGNESIUM (test code = 7931974649) 1.9 mg/dL 1.7-2.4 Lab Interpretation (test cod e = 19539-6) [facility] 10:20:25* Test Item Value Reference Range Interpretation Comme nts PHOSPHORUS (test code = 6962427527) 4.9 mg/dL 2.5-5.0 Lab Interpretation (test cod e = 42929-4) [facility] [id number] 09:57:00* Test Item Value Reference Range Interpretation [...] g/dL 31.6-35.1 L RDW-SD (test code = 79036-5) 57.3 fL 39.0-49.9 H RDW-CV (test code = 788-0) 19.6 % 12.0-15.5 H PLT (test code = 777-3) 257 See_Comment [Automated messa ge] The system which generated this result transmitted reference range: 166 - 358 10*3/?L. The reference range was not used to interpret this result as normal/abnormal. MPV (test code = 13766-7) 10.4 fL 9.5-12.9 NRBC/100 WBC (test code = 3390789162) 0.7 See_Comment [Automated me ssage] The system which generated this result transmitted reference range: 0.0 - 10.0 /100 WBCs. The reference range was not used to interpret this result as normal/abnormal. NRBC x10^3 (test code = 4751145143) 0.09 See_Comment [Automated messa ge] The system which generated this result transmitted reference range: 10*3/?L. The reference range was not used to interpret this result as normal/abnormal. GRAN MAT (NEUT) % (test code = 770-8) 80.6 % IMM GRAN % (test code = 5697309489) 0.90 % LYMPH % (test code = 736-9) 10.2 % MONO % (test code = 5905-5) 7.6 % EOS % (test code = 713-8) 0.3 % BASO % (test code = 706-2) 0.4 % GRAN MAT x10^3(ANC) (test code = 2035509613) 9.84 10*3/uL 1.88-7.09 H IMM GRAN x10^3 (test code = 2604066904) 0.11 10*3/uL 0.00-0.06 H LYMPH x10^3 (test code = 731-0) 1.25 10*3/uL 1.32-3.29 L MONO x10^3 (test code = 742-7) 0.93 10*3/uL 0.33-0.92 H EOS x10^3 (test code = 711-2) 0.04 10*3/uL 0.03-0.39 BASO x10^3 (test code = 704-7) 0.05 10*3/uL 0.01-0.07 Lab Interpretation (test code = 29732-8) Abnormal [facility] GLUCOSE (AUTOMATED)2023-02-04 09:20:35* Test Item Value Reference Range Interpretation Comme nts POCT GLU (test code = 1888812161) 111 mg/dL 70-110 H Lab Interpretation (test cod e = 18381-2) Abnormal [facility] GLUCOSE (AUTOMATED)2023-02-04 03:57:37* Test Item Value Reference Range Interpretation Comme nts POCT GLU (test code = 9905449944) 100 mg/dL 70-110 Lab Interpretation (test cod e = 18792-2) [facility]23-[facility]-04 02:15:57* Test Item Value Reference Range Interpretation Comme [facility] POCT GLU (test code = 6022953801) 95 mg/dL 70-110 Lab Interpretation (test cod e = 15216-5) [facility]+COOX+NA+K+GLU+CA2+2023-02-04 01:21:05* Test Item Value Reference Range Interpretation Comme [facility] PH (test code = 2) 7.24 7.35-7.45 L PCO2 (test code = 8621198648) 50 See_Comment H [Automated messa ge] The system which generated this result transmitted reference range: 35 - 45 mmHg. The reference range was not used to interpret this result as normal/abnormal. PO2 (test code = 3608598933) 87 See_Comment [Automated messa ge] The system which generated this result transmitted reference range: 80 - 100 mmHg. The reference range was not used to interpret this result as normal/abnormal. HCO3 (test code = 0414824782) 21 See_Comment L [Automated messa ge] The system which generated this result transmitted reference range: 22 - 26 mEq/L. The reference range was not used to interpret this result as normal/abnormal. BE (test code = 5950388742) -6.3 See_Comment L [Automated messa ge] The system which generated this result transmitted reference range: -3.0 - 3.0 mEq/L. The reference range was not used to interpret this result as normal/abnormal. THB (test code = 4695099530) 9.6 g/dL 12.0-16.0 L %O2HB (test code = 3058513543) 93.7 % 94.0-99.0 L %COHB ART (test code = 9490737141) 0.9 % 0.0-1.5 %METHB ART (test code = 9657765698) 0.5 % 0.4-1.5 VOL%O2 ART (test code = 8767301175) 12.8 % 15.0-23.0 L NA (test code = 0932355112) 134 mmol/L 135-145 L K+ (test code = 0041097795) 5.1 mmol/L 3.5-5.0 H AC CA IONZ (test code = 5457261977) 4.90 mg/dL 4.50-5.30 GLUCOSE (test code = 9495385093) 95 mg/dL 70-110 Lab Interpretation (test code = 12917-9) [facility]COO[facility]+NA+K+GLU+CA2+2023-02-04 01:21:05* Test Item Value Reference Range Interpretation Comme nts PH (test code = 2) 7.24 7.35-7.45 L PCO2 (test code = 2250731211) 50 See_Comment H [Automated messa ge] The system which generated this result transmitted reference range: 35 - 45 mmHg. The reference range was not used to interpret this result as normal/abnormal. PO2 (test code = 6450530986) 87 See_Comment [Automated messa ge] The system which generated this result transmitted reference range: 80 - 100 mmHg. The reference range was not used to interpret this result as normal/abnormal. HCO3 (test code = 2398424442) 21 See_Comment L [Automated messa ge] The system which generated this result transmitted reference range: 22 - 26 mEq/L. The reference range was not used to interpret this result as normal/abnormal. BE (test code = 7036832987) -6.3 See_Comment L [Automated messa ge] The system which generated this result transmitted reference range: -3.0 - 3.0 mEq/L. The reference range was not used to interpret this result as normal/abnormal. THB (test code = 8268476100) 9.6 g/dL 12.0-16.0 L %O2HB (test code = 5349605678) 93.7 % 94.0-99.0 L %COHB ART (test code = 7503260911) 0.9 % 0.0-1.5 %METHB ART (test code = 8149819922) 0.5 % 0.4-1.5 VOL%O2 ART (test code = 8548887574) 12.8 % 15.0-23.0 L NA (test code = 2428922143) 134 mmol/L 135-145 L K+ (test code = 6823858469) 5.1 mmol/L 3.5-5.0 H AC CA IONZ (test code = 2392049949) 4.90 mg/dL 4.50-5.30 GLUCOSE (test code = 1479827798) 95 mg/dL 70-110 Lab Interpretation (test code = 72540-5) [facility]23-[facility]-04 00:52:31* Test Item Value Reference Range Interpretation Comme [facility] POCT GLU (test code = 9541380105) 99 mg/dL 70-110 Lab Interpretation (test cod e = 21950-9) Normal [facility]2023-09-19 22:27:20* Test Item Value Reference Range Interpretation Comme [facility] Fibrinogen (test code = 2474963939) 322 mg/dL 167-453 Lab Interpretation (test cod e = 12031-6) Normal [facility]2023-09-19 22:27:20* Test Item Value Reference Range Interpretation Comme [facility] Fibrinogen (test code = 3240214312) 322 mg/dL 167-453 Lab Interpretation (test cod e = 30067-6) Normal [facility] METABOLIC PANEL (NA, K, CL, CO2, GLUCOSE, BUN, CREATININE, CA)2023-02-03 22:20:34* Test Item Value Reference Range Interpretation Comme nts NA (test code = 9766499901) 133 mmol/L 135-145 L K (test code = 2814182844) 4.9 mmol/L 3.5-5.0 CL (test code = 1017985388) 102 mmol/L 98-108 CO2 TOTAL (test code = 4152327049) 17 mmol/L 23-31 L AGAP (test code = 9950245718) 14 2-16 BUN (test code = 0760396145) 45 mg/dL 7-23 H GLUCOSE (test code = 8296930549) 93 mg/dL 70-110 CREATININE (test code = 7890031592) 1.70 mg/dL 0.50-1.04 H CALCIUM (test code = 8123105336) 8.2 mg/dL 8.6-10.6 L eGFR (test code = 1802084944) 29.1 mL/min/1.73m2 LOW (test code = LOW) [...] imaging tests). Lab Interpretation (test code = 80278-4) [facility]+NA+K+GLU+CA2+2023-02-03 22:16:10* Test Item Value Reference Range Interpretation Comme nts PH (test code = 2) 7.25 7.35-7.45 L PCO2 (test code = 7830113347) 48 See_Comment H [Automated [place]] The system which generated this result transmitted reference range: 35 - 45 mmHg. The reference range was not used to interpret this result as normal/abnormal. PO2 (test code = 0323905759) 79 See_Comment L [Automated [place]] The system which generated this result transmitted reference range: 80 - 100 mmHg. The reference range was not used to interpret this result as normal/abnormal. HCO3 (test code = 0152482960) 21 See_Comment L [Automated messa ge] The system which generated this result transmitted reference range: 22 - 26 mEq/L. The reference range was not used to interpret this result as normal/abnormal. BE (test code = 1119113494) -6.2 See_Comment L [Automated messa ge] The system which generated this result transmitted reference range: -3.0 - 3.0 mEq/L. The reference range was not used to interpret this result as normal/abnormal. THB (test code = 8405760107) 9.5 g/dL 12.0-16.0 L %O2HB (test code = 9422729030) 92.3 % 94.0-99.0 L %COHB ART (test code = 1173140782) 1.0 % 0.0-1.5 %METHB ART (test code = 4183836515) 0.5 % 0.4-1.5 VOL%O2 ART (test code = 0806605540) 12.4 % 15.0-23.0 L NA (test code = 4129689778) 135 mmol/L 135-145 K+ (test code = 1318693827) 5.0 mmol/L 3.5-5.0 AC CA IONZ (test code = 4977936804) 4.90 mg/dL 4.50-5.30 GLUCOSE (test code = 6502280410) 101 mg/dL 70-110 Lab Interpretation (test code = 60803-4) Abnormal [facility] WITH [id number] 21:56:32* Test Item Value Reference Range Interpretation [...] g/dL 31.6-35.1 L RDW-SD (test code = 24219-0) 53.7 fL 39.0-49.9 H RDW-CV (test code = 788-0) 18.8 % 12.0-15.5 H PLT (test code = 777-3) 254 See_Comment [Automated message] The system which generated this result transmitted reference range: 166 - 358 10*3/?L. The reference range was not used to interpret this result as normal/abnormal. MPV (test code = 87422-5) 10.3 fL 9.5-12.9 NRBC/100 WBC (test code = 2784672654) 0.9 See_Comment [Automated message] The system which generated this result transmitted reference range: 0.0 - 10.0 /100 WBCs. The reference range was not used to interpret this result as normal/abnormal. NRBC x10^3 (test code = 1047353857) 0.13 See_Comment [Automated message] The system which generated this result transmitted reference range: 10*3/?L. The reference range was not used to interpret this result as normal/abnormal. GRAN MAT (NEUT) % (test code = 770-8) 84.4 % IMM GRAN % (test code = 4902989586) 1.20 % LYMPH % (test code = 736-9) 6.5 % MONO % (test code = 5905-5) 7.4 % EOS % (test code = 713-8) 0.3 % BASO % (test code = 706-2) 0.2 % GRAN MAT x10^3(ANC) (test code = 4552520241) 12.82 10*3/uL 1.88-7.09 H IMM GRAN x10^3 (test code = 8865633770) 0.18 10*3/uL 0.00-0.06 H LYMPH x10^3 (test code = 731-0) 0.99 10*3/uL 1.32-3.29 L MONO x10^3 (test code = 742-7) 1.13 10*3/uL 0.33-0.92 H EOS x10^3 (test code = 711-2) 0.04 10*3/uL 0.03-0.39 BASO x10^3 (test code = 704-7) 0.03 10*3/uL 0.01-0.07 Lab Interpretation (test code = 46521-4) [facility] 21:33:38* Test Item Value Reference Range Interpretation Comme nts POCT GLU (test code = 6525700887) 102 mg/dL 70-110 Lab Interpretation (test cod e = 42810-7) [facility] B12, [id number] 20:56:41* Test Item Value Reference Range Interpretation Comme nts VIT B12 (test code = 8058019458) 921 pg/mL 240-930 LOW (test code = LOW) Biotin has been reported to cause a positive bias, interpret results relative to patient's use of biotin. Lab Interpretation (test code = 14417-7) [facility] B12, [id number] 20:56:41* Test Item Value Reference Range Interpretation Comme nts VIT B12 (test code = 1936090064) 921 pg/mL 240-930 LOW (test code = LOW) Biotin has been reported to cause a positive bias, interpret results relative to patient's use of biotin. Lab Interpretation (test code = 05671-3) [facility]+NA+K+GLU+CA2+2023-02-03 20:44:30* Test Item Value Reference Range Interpretation Comme nts PH (test code = 2) 7.31 7.35-7.45 L PCO2 (test code = 5618674896) 17 See_Comment L [Automated messa ge] The system which generated this result transmitted reference range: 35 - 45 mmHg. The reference range was not used to interpret this result as normal/abnormal. PO2 (test code = 3734064457) 131 See_Comment H [Automated messa ge] The system which generated this result transmitted reference range: 80 - 100 mmHg. The reference range was not used to interpret this result as normal/abnormal. HCO3 (test code = 2323328581) 8 See_Comment L [Automated messa ge] The system which generated this result transmitted reference range: 22 - 26 mEq/L. The reference range was not used to interpret this result as normal/abnormal. BE (test code = 6715305015) -17.1 See_Comment L [Automated messa ge] The system which generated this result transmitted reference range: -3.0 - 3.0 mEq/L. The reference range was not used to interpret this result as normal/abnormal. THB (test code = 5575677862) 3.6 g/dL 12.0-16.0 LL %O2HB (test code = 2483732266) 95.7 % 94.0-99.0 %COHB ART (test code = 4924361980) 0.3 % 0.0-1.5 %METHB ART (test code = 2708041590) 1.2 % 0.4-1.5 VOL%O2 ART (test code = 6776252100) 5.2 % 15.0-23.0 L NA (test code = 9415200246) 142 mmol/L 135-145 K+ (test code = 8195194880) 1.7 mmol/L 3.5-5.0 LL AC CA IONZ (test code = 2455618303) 2.60 mg/dL 4.50-5.30 LL GLUCOSE (test code = 8055616051) 34 mg/dL 70-110 LL Lab Interpretation (test code = 40695-2) [facility] 17:40:52* Test Item Value Reference Range Interpretation Comme nts FOLATE SER (test code = 7842754643) 3.0-20.0 H Biotin has been reported to cause a positive bias, interpret results relative to patient's use of biotin. Lab Interpretation (test code = 08893-6) [facility] 17[facility]40:52* Test Item Value Reference Range Interpretation Comme nts FOLATE SER (test code = 8239116708) 3.0-20.0 H Biotin has been reported to cause a positive bias, interpret results relative to patient's use of biotin. Lab Interpretation (test code = 77525-6) [facility]2023-02-03 17:29:17* Test Item Value Reference Range Interpretation Comme nts POCT GLU (test code = 0146258997) 99 mg/dL 70-110 Lab Interpretation (test cod e = 07619-4) Normal [facility] WITH [id number] 15:30:18* Test Item Value Reference Range Interpretation [...] g/dL 31.6-35.1 L RDW-SD (test code = 10963-4) 52.0 fL 39.0-49.9 H RDW-CV (test code = 788-0) 18.6 % 12.0-15.5 H PLT (test code = 777-3) 267 See_Comment [Automated message] The system which generated this result transmitted reference range: 166 - 358 10*3/?L. The reference range was not used to interpret this result as normal/abnormal. MPV (test code = 96905-9) 11.0 fL 9.5-12.9 NRBC/100 WBC (test code = 2639781433) 0.9 See_Comment [Automated message] The system which generated this result transmitted reference range: 0.0 - 10.0 /100 WBCs. The reference range was not used to interpret this result as normal/abnormal. NRBC x10^3 (test code = 6893020481) 0.14 See_Comment [Automated message] The system which generated this result transmitted reference range: 10*3/?L. The reference range was not used to interpret this result as normal/abnormal. GRAN MAT (NEUT) % (test code = 770-8) 86.1 % IMM GRAN % (test code = 6540897795) 0.70 % LYMPH % (test code = 736-9) 5.9 % MONO % (test code = 5905-5) 7.0 % EOS % (test code = 713-8) 0.1 % BASO % (test code = 706-2) 0.2 % GRAN MAT x10^3(ANC) (test code = 3538008783) 12.81 10*3/uL 1.88-7.09 H IMM GRAN x10^3 (test code = 9777390720) 0.11 10*3/uL 0.00-0.06 H LYMPH x10^3 (test code = 731-0) 0.88 10*3/uL 1.32-3.29 L MONO x10^3 (test code = 742-7) 1.04 10*3/uL 0.33-0.92 H EOS x10^3 (test code = 711-2) 0.03-0.39 L BASO x10^3 (test code = 704-7) 0.03 10*3/uL 0.01-0.07 Lab Interpretation (test code = 53766-7) [facility] AustinProthrombin [facility] / [id number] 14:08:11* Test Item Value Reference Range Interpretation Comme nts PROTIME PATIENT (test code = 5964-2) 22.2 See_Comment H [Automated messa ge] The system which generated this result transmitted reference range: 10.1 - 12.6 Seconds. The reference range was not used to interpret this result as normal/abnormal. INR (test code = 6301-6) 1.9 Normal INR <1.1; Warfarin Therapeutic range 2.0 to 3.0 or 2.5 to 3.5, depending upon the indications. Lab Interpretation (test code = 89348-7) [facility]AUTOMATED)2023-02-03 13:34:12* Test Item Value Reference Range Interpretation Comme nts POCT GLU (test code = 6327470456) 79 mg/dL 70-110 Lab Interpretation (test cod e = 24224-3) [facility] AustinFERRITIN [id number] 11:32:20* Test Item Value Reference Range Interpretation Comme nts FERRITIN (test code = 6972926456) 8.6 ng/mL 11.0-264.0 L LOW (test code = LOW) Biotin has been reported to cause a negative bias, interpret results relative to patient's use of biotin. Lab Interpretation (test code = 07701-9) [facility] Austin[facility] [id number] 11:32:20* Test Item Value Reference Range Interpretation Comme nts FERRITIN (test code = 9387836223) 8.6 ng/mL 11.0-264.0 L LOW (test code = LOW) Biotin has been reported to cause a negative bias, interpret results relative to patient's use of biotin. Lab Interpretation (test code = 53116-4) Abnormal [facility] IRON BINDING [id number] 11:07:39 * Test Item Value Reference Range Interpretation Comme nts TIBC (test code = 1994716205) 528 ug/dL 250-410 H % FE SAT (test code = 8554927286) 65 % 20-50 H Lab Interpretation (test cod e = 55782-9) Abnormal [facility] IRON BINDING [id number] 11:07:39 * Test Item Value Reference Range Interpretation Comme nts TIBC (test code = 9716214202) 528 ug/dL 250-410 H % FE SAT (test code = 2387309227) 65 % 20-50 H Lab Interpretation (test cod e = 24450-3) [facility]23-[facility] 10:57:35* Test Item Value Reference Range Interpretation Comme nts IRON (test code = 0106640368) 345 ug/dL 50-160 H Lab Interpretation (test cod e = 71617-6) Abnormal [facility] METABOLIC PANEL (NA, K, CL, CO2, GLUCOSE, BUN, CREATININE, CA)2023-02-03 10:57:35* Test Item Value Reference Range Interpretation Comme nts NA (test code = 4323156830) 134 mmol/L 135-145 L K (test code = 7970961841) 4.8 mmol/L 3.5-5.0 CL (test code = 4942460671) 104 mmol/L 98-108 CO2 TOTAL (test code = 6053871993) 19 mmol/L 23-31 L AGAP (test code = 1459072345) 11 2-16 BUN (test code = 8355038379) 47 mg/dL 7-23 H GLUCOSE (test code = 5773659753) 75 mg/dL 70-110 CREATININE (test code = 0929608714) 1.96 mg/dL 0.50-1.04 H CALCIUM (test code = 0200172160) 8.1 mg/dL 8.6-10.6 L eGFR (test code = 2333951382) 24.7 mL/min/1.73m2 LOW (test code = LOW) [...] imaging tests). Lab Interpretation (test code = 40131-5) [facility] AustinMAGNESIUM2023-09-19 10:57:35* Test Item Value Reference Range Interpretation Comme nts MAGNESIUM (test code = 1994845976) 1.9 mg/dL 1.7-2.4 Lab Interpretation (test cod e = 20023-2) Normal [facility] AustinPHOSPHORUS2023-09-19 10:57:35* Test Item Value Reference Range Interpretation Comme nts PHOSPHORUS (test code = 1238061416) 5.6 mg/dL 2.5-5.0 H Lab Interpretation (test cod e = 62175-8) [facility] Austin[facility] 10:57:35* Test Item Value Reference Range Interpretation Comme nts IRON (test code = 6828054682) 345 ug/dL 50-160 H Lab Interpretation (test cod e = 17568-6) [facility] AustinGLYCOSYLATED HEMOGLOBIN (A1C)2023-02-03 09:57:16* Test Item Value Reference Range Interpretation Comme nts HGB A1C (test code = 4548-4) 6.9 % 4.0-5.7 H LOW (test code = LOW) Reference RangesNormal: <5.7%Prediabetes: 5.7 - 6.4%Diabetes: > 6.5% Lab Interpretation (test code = 04499-1) [facility] AustinGLYCOSYLATED HEMOGLOBIN (A1C)2023-02-03 09:57:16* Test Item Value Reference Range Interpretation Comme nts HGB A1C (test code = 4548-4) 6.9 % 4.0-5.7 H LOW (test code = LOW) Reference RangesNormal: <5.7%Prediabetes: 5.7 - 6.4%Diabetes: > 6.5% Lab Interpretation (test code = 02781-4) [facility] AustinCBC WITHOUT [id number] 09:48:26* Test Item Value Reference Range Interpretation [...] result as normal/abnormal. MPV (test code = 35907-2) 10.6 fL 9.5-12.9 RDW-CV (test code = 788-0) 18.7 % 12.0-15.5 H RDW-SD (test code = 65596-1) 54.2 fL 39.0-49.9 H NRBC x10^3 (test code = 8824201015) 0.12 See_Comment [Automated messa ge] The system which generated this result transmitted reference range: 10*3/?L. The reference range was not used to interpret this result as normal/abnormal. NRBC/100 WBC (test code = 5936457323) 0.9 See_Comment [Automated messa ge] The system which generated this result transmitted reference range: 0.0 - 10.0 /100 WBCs. The reference range was not used to interpret this result as normal/abnormal. IPF % (test code = 4444329922) Lab Interpretation (test code = 79680-1) Abnormal [facility] WITHOUT [id number] 09:48:26* Test Item Value Reference Range Interpretation [...] result as normal/abnormal. MPV (test code = 53475-0) 10.6 fL 9.5-12.9 RDW-CV (test code = 788-0) 18.7 % 12.0-15.5 H RDW-SD (test code = 91971-1) 54.2 fL 39.0-49.9 H NRBC x10^3 (test code = 0999124158) 0.12 See_Comment [Automated messa ge] The system which generated this result transmitted reference range: 10*3/?L. The reference range was not used to interpret this result as normal/abnormal. NRBC/100 WBC (test code = 9113946815) 0.9 See_Comment [Automated messa ge] The system which generated this result transmitted reference range: 0.0 - 10.0 /100 WBCs. The reference range was not used to interpret this result as normal/abnormal. IPF % (test code = 4342511015) Lab Interpretation (test code = 77745-9) [facility]AUTOMATED)2023-02-03 09:14:47* Test Item Value Reference Range Interpretation Comme nts POCT GLU (test code = 6124308693) 91 mg/dL 70-110 Lab Interpretation (test cod e = 79368-2) Normal [facility] AustinPrepar Packed RBC (in units), 1 Units 2023-02-03 05:32:46* Test Item Value Reference Range Interpretation Comme nts Cross Match Result (test code = 4409) Compatible ISBT Blood Type Code (test code = 050526) 6200 Unit Blood Type (test code = 4410) A Pos Unit Number (test code = 4411) [id number] Blood Expiration Date & Time (test code = 802853) [id number] Status Information (test code = 4412) Issued Product Identification (test code = 4413) Red Blood Cells Product Code (test code = 4414) [id number] Performed at [facility] Blood [address] Free: [phone] No. [id number] [facility] Packed RBC (in units), 1 Units 2023-02-03 05:32:46* Test Item Value Reference Range Interpretation Comme nts Cross Match Result (test code = 4409) Compatible ISBT Blood Type Code (test code = 180012) 6200 Unit Blood Type (test code = 4410) A Pos Unit Number (test code = 4411) [id number] Blood Expiration Date & Time (test code = 426898) [id number] Status Information (test code = 4412) Issued Product Identification (test code = 4413) Red Blood Cells Product Code (test code = 4414) [id number] Performed [address] [facility] Blood [address] Free: [phone] No. [id number] [facility] AustinType and Screen - ONCE [id number] 04:44:00* Test Item Value Reference Range Interpretation Comme nts ABO & RH (test code = 20) A POSITIVE IAT (test code = 1185) Negative [facility] AustinType and Screen - ONCE [id number] 04:44:00* Test Item Value Reference Range Interpretation Comme nts ABO & RH (test code = 20) A POSITIVE IAT (test code = 1185) Negative [facility] AustinPO[facility] GLUCOSE (AUTOMATED)2023-02-03 04:28:31* Test Item Value Reference Range Interpretation Comme nts POCT GLU (test code = 3846712342) 107 mg/dL 70-110 Lab Interpretation (test cod e = 86138-8) Normal [facility] AustinPrepare Packed RBC (in units), 2 Units 2023-02-03 01:04:45* Test Item Value Reference Range Interpretation Comme nts Cross Match Result (test code = 4409) Compatible ISBT Blood Type Code (test code = 690639) 6200 Unit Blood Type (test code = 4410) A Pos Unit Number (test code = 4411) [id number] Blood Expiration Date & Time (test code = 588186) 374979871376 Status Information (test code = 4412) Issued Product Identification (test code = 4413) Red Blood Cells Product Code (test code = 4414) [id number] Performed at [facility] B Laboratory Services - [facility] Blood [address] [place], [place] [id number] Free: [phone] No. [id number] [facility] AustinTHYROID STIMULATING [id number] 22:22:55 * Test Item Value Reference Range Interpretation Comme nts TSH (test code = 7963170291) 2.87 See_Comment Biotin has been reported to cause a negative bias, interpret results relative to patient's use of biotin. [Automated message] The system which generated this result transmitted reference range: 0.45 - 4.70 mIU/L. The reference range was not used to interpret this result as normal/abnormal. Lab Interpretation (test code = 39356-2) Normal [facility] AustinTHYROID STIMULATING [id number] 22:22:55 * Test Item Value Reference Range Interpretation Comme nts TSH (test code = 8587973422) 2.87 See_Comment Biotin has been reported to cause a negative bias, interpret results relative to patient's use of biotin. [Automated message] The system which generated this result transmitted reference range: 0.45 - 4.70 mIU/L. The reference range was not used to interpret this result as normal/abnormal. Lab Interpretation (test code = 22256-2) Normal [facility] AustinType and Screen - ONCE [id number] 21:42:00* Test Item Value Reference Range Interpretation Comme nts ABO & RH (test code = 20) A Positive IAT (test code = 1185) Negative [facility] AustinAC ABG + LACTIC [id number] 20:35:56* Test Item Value Reference Range Interpretation Comme nts PH (test code = 2) 7.31 7.35-7.45 L PCO2 (test code = 7923285017) 37 See_Comment [Automated messa ge] The system which generated this result transmitted reference range: 35 - 45 mmHg. The reference range was not used to interpret this result as normal/abnormal. PO2 (test code = 2745744931) 94 See_Comment [Automated messa ge] The system which generated this result transmitted reference range: 80 - 100 mmHg. The reference range was not used to interpret this result as normal/abnormal. HCO3 (test code = 1226336230) 18 See_Comment L [Automated messa ge] The system which generated this result transmitted reference range: 22 - 26 mEq/L. The reference range was not used to interpret this result as normal/abnormal. BE (test code = 1947190912) -7.7 See_Comment L [Automated messa ge] The system which generated this result transmitted reference range: -3.0 - 3.0 mEq/L. The reference range was not used to interpret this result as normal/abnormal. LACTIC ACID (test code = 0272609360) 3.99 mmol/L 0.50-2.20 H Lab Interpretation (test code = 05979-2) [facility]normal [facility] AustinHEMOGLOBIN [id number] 05:52:09* Test Item Value Reference Range Interpretation Comme nts HEMOGLOBIN A1c (test code = 35953) 8.2 % 4.2-5.6 H CITIZEN OF [place] [employer] GUIDELINES FOR HGB A1C: [...] ALTERNATE TESTING OR LABORATORY CONSULTATION. BASIC METABOLIC [id number] 05:11:09* Test Item Value Reference Range Interpretation Comme nts GLUCOSE (test code = 2217) 241 MG/DL 70-99 H BUN (test code = 2208) 21 MG/DL 8-23 CREATININE (test code = 2214) 0.99 MG/DL 0.60-1.30 eGFR (2020 CKD-EPI) (test code = 66897) 59 ML/MIN/1.73 >60 L The NKF-ASN Taskforce recommends use of Cystatin C to confirm eGFR inadults at risk for CKD. [facility] offers eGFR with Cystatin C-Creatinineusing the 2020 CKD-EPI eGFR_creat-cystat equation (order code 3057) toincrease the accuracy of estimated GFR. For more information, contactur distribution accounting clerk or see announcement [email or web address] SODIUM (test code = 2231) 138 MEQ/L 133-146 POTASSIUM (test code = 2228) 4.0 MEQ/L 3.5-5.4 CHLORIDE (test code = 2215) 97 MEQ/L 95-107 CARBON DIOXIDE (test code = 2206) 30 MEQ/L 19-31 CALCIUM (test code = 2209) 9.3 MG/DL 8.5-10.5 UNLESS OTHERWISE INDICATED, ALL TESTING PERFORMED AT [facility] [address] [place] [address] LICENSED MASSAGE THERAPIST: DIANELYS ANDERSON M.D. CLIA NUMBER [id number] [facility] [place]. [id number] BASIC METABOLIC [id number] 00:00:00* Test Item Value Reference Range Interpretation Comme nts GLUCOSE (test code = 2217) 241 MG/DL BUN (test code = 2208) 21 MG/DL CREATININE (test code = 2214) 0.99 MG/DL eGFR (2020 CKD-EPI) (test co de = 41923) 59 ML/MIN/1.73 SODIUM (test code = 2231) 138 MEQ/L POTASSIUM (test code = 2228) 4.0 MEQ/L CHLORIDE (test code = 2215) 97 MEQ/L CARBON DIOXIDE (test code = 2206) 30 MEQ/L CALCIUM (test code = 2209) 9.3 MG/DL [facility] Ross AustinHEMOGLOBIN [id number] 00:00:00* Test Item Value Reference Range Interpretation Comme nts HEMOGLOBIN A1c (test code = 49088) 8.2 % [facility] Ross AustinBASIC METABOLIC [id number] 00:00:00* Test Item Value Reference Range Interpretation Comme nts GLUCOSE (test code = 2217) 241 MG/DL BUN (test code = 2208) 21 MG/DL CREATININE (test code = 2214) 0.99 MG/DL eGFR (2020 CKD-EPI) (test co de = 63341) 59 ML/MIN/1.73 SODIUM (test code = 2231) 138 MEQ/L POTASSIUM (test code = 2228) 4.0 MEQ/L CHLORIDE (test code = 2215) 97 MEQ/L CARBON DIOXIDE (test code = 2206) 30 MEQ/L CALCIUM (test code = 2209) 9.3 MG/DL [facility] Ross AustinHEMOGLOBIN [id number] 00:00:00* Test Item Value Reference Range Interpretation Comme nts HEMOGLOBIN A1c (test code = 65892) 8.2 % [facility]rend[facility] Ross AustinBASIC METABOLIC [id number] 00:00:00* Test Item Value Reference Range Interpretation Comme nts GLUCOSE (test code = 2217) 241 MG/DL BUN (test code = 2208) 21 MG/DL CREATININE (test code = 2214) 0.99 MG/DL eGFR (2020 CKD-EPI) (test co de = 45738) 59 ML/MIN/1.73 SODIUM (test code = 2231) 138 MEQ/L POTASSIUM (test code = 2228) 4.0 MEQ/L CHLORIDE (test code = 2215) 97 MEQ/L CARBON DIOXIDE (test code = 2206) 30 MEQ/L CALCIUM (test code = 2209) 9.3 MG/DL [facility] Ross AustinHEMOGLOBIN [id number] 00:00:00* Test Item Value Reference Range Interpretation Comme nts HEMOGLOBIN A1c (test code = 55389) 8.2 % [facility] Ross AustinBASIC METABOLIC [id number] 00:00:00* Test Item Value Reference Range Interpretation Comme nts GLUCOSE (test code = 2217) 241 MG/DL BUN (test code = 2208) 21 MG/DL CREATININE (test code = 2214) 0.99 MG/DL eGFR (2020 CKD-EPI) (test co de = 09193) 59 ML/MIN/1.73 SODIUM (test code = 2231) 138 MEQ/L POTASSIUM (test code = 2228) 4.0 MEQ/L CHLORIDE (test code = 2215) 97 MEQ/L CARBON DIOXIDE (test code = 2206) 30 MEQ/L CALCIUM (test code = 2209) 9.3 MG/DL [facility] Ross AustinHEMOGLOBIN [id number] 00:00:00* Test Item Value Reference Range Interpretation Comme nts HEMOGLOBIN A1c (test code = 95797) 8.2 % [facility] Ross AustinBASIC METABOLIC [id number] 00:00:00* Test Item Value Reference Range Interpretation Comme nts GLUCOSE (test code = 2217) 241 MG/DL BUN (test code = 2208) 21 MG/DL CREATININE (test code = 2214) 0.99 MG/DL eGFR (2020 CKD-EPI) (test co de = 82442) 59 ML/MIN/1.73 SODIUM (test code = 2231) 138 MEQ/L POTASSIUM (test code = 2228) 4.0 MEQ/L CHLORIDE (test code = 2215) 97 MEQ/L CARBON DIOXIDE (test code = 2206) 30 MEQ/L CALCIUM (test code = 2209) 9.3 MG/DL Surendra Ross AustinHEMOGLOBIN [id number] 00:00:00* Test Item Value Reference Range Interpretation Comme nts HEMOGLOBIN A1c (test code = 74825) 8.2 % Surendra Ross AustinBASIC METABOLIC [id number] 00:00:00* Test Item Value Reference Range Interpretation Comme nts GLUCOSE (test code = 2217) 241 MG/DL BUN (test code = 2208) 21 MG/DL CREATININE (test code = 2214) 0.99 MG/DL eGFR (2020 CKD-EPI) (test co de = 46607) 59 ML/MIN/1.73 SODIUM (test code = 2231) 138 MEQ/L POTASSIUM (test code = 2228) 4.0 MEQ/L CHLORIDE (test code = 2215) 97 MEQ/L CARBON DIOXIDE (test code = 2206) 30 MEQ/L CALCIUM (test code = 2209) 9.3 MG/DL [facility] Ross AustinHEMOGLOBIN [id number] 00:00:00* Test Item Value Reference Range Interpretation Comme nts HEMOGLOBIN A1c (test code = 16929) 8.2 % [facility] Ross AustinBASIC METABOLIC [id number] 00:00:00* Test Item Value Reference Range Interpretation Comme nts GLUCOSE (test code = 2217) 241 MG/DL BUN (test code = 2208) 21 MG/DL CREATININE (test code = 2214) 0.99 MG/DL eGFR (2020 CKD-EPI) (test co de = 83769) 59 ML/MIN/1.73 SODIUM (test code = 2231) 138 MEQ/L POTASSIUM (test code = 2228) 4.0 MEQ/L CHLORIDE (test code = 2215) 97 MEQ/L CARBON DIOXIDE (test code = 2206) 30 MEQ/L CALCIUM (test code = 2209) 9.3 MG/DL [facility] Ross AustinHEMOGLOBIN [id number] 00:00:00* Test Item Value Reference Range Interpretation Comme nts HEMOGLOBIN A1c (test code = 27400) 8.2 % Surendra Ross AustinBASIC METABOLIC [id number] 00:00:00* Test Item Value Reference Range Interpretation Comme nts GLUCOSE (test code = 2217) 241 MG/DL BUN (test code = 2208) 21 MG/DL CREATININE (test code = 2214) 0.99 MG/DL eGFR (2020 CKD-EPI) (test co de = 72935) 59 ML/MIN/1.73 SODIUM (test code = 2231) 138 MEQ/L POTASSIUM (test code = 2228) 4.0 MEQ/L CHLORIDE (test code = 2215) 97 MEQ/L CARBON DIOXIDE (test code = 2206) 30 MEQ/L CALCIUM (test code = 2209) 9.3 MG/DL [facility] Ross AustinHEMOGLOBIN [id number] 00:00:00* Test Item Value Reference Range Interpretation Comme nts HEMOGLOBIN A1c (test code = 37789) 8.2 % Surendra Ross [place]POCT GLUCOSE (AUTOMATED)2022-11-07 17:24:33* Test Item Value Reference Range Interpretation Comme [facility] POCT GLU (test code = 0827647160) 245 mg/dL 70-110 H Lab Interpretation (test cod e = 07726-9) [facility]normal [facility]OMATED)2022-11-07 13:37:51* Test Item Value Reference Range Interpretation Comme nts POCT GLU (test code = 0809240678) 191 mg/dL 70-110 H Lab Interpretation (test cod e = 16931-0) Abnormal [facility] WITH [id number] 09:42:55* Test Item Value Reference Range Interpretation [...] 31.9 g/dL 31.6-35.1 RDW-SD (test code = 87524-7) 49.3 fL 39.0-49.9 RDW-CV (test code = 788-0) 15.7 % 12.0-15.5 H PLT (test code = 777-3) 308 See_Comment [Automated messa ge] The system which generated this result transmitted reference range: 166 - 358 10*3/?L. The reference range was not used to interpret this result as normal/abnormal. MPV (test code = 65370-2) 9.7 fL 9.5-12.9 NRBC/100 WBC (test code = 7850132034) 0.0 See_Comment [Automated me ssage] The system which generated this result transmitted reference range: 0.0 - 10.0 /100 WBCs. The reference range was not used to interpret this result as normal/abnormal. NRBC x10^3 (test code = 6110252766) See_Comment [Automated messa ge] The system which generated this result transmitted reference range: 10*3/?L. The reference range was not used to interpret this result as normal/abnormal. GRAN MAT (NEUT) % (test code = 770-8) 54.6 % IMM GRAN % (test code = 3054176860) 0.40 % LYMPH % (test code = 736-9) 26.3 % MONO % (test code = 5905-5) 12.2 % EOS % (test code = 713-8) 5.8 % BASO % (test code = 706-2) 0.7 % GRAN MAT x10^3(ANC) (test code = 7681098179) 3.89 10*3/uL 1.88-7.09 IMM GRAN x10^3 (test code = 9717364574) 0.03 10*3/uL 0.00-0.06 LYMPH x10^3 (test code = 731-0) 1.87 10*3/uL 1.32-3.29 MONO x10^3 (test code = 742-7) 0.87 10*3/uL 0.33-0.92 EOS x10^3 (test code = 711-2) 0.41 10*3/uL 0.03-0.39 H BASO x10^3 (test code = 704-7) 0.05 10*3/uL 0.01-0.07 Lab Interpretation (test code = 07961-0) Abnormal [facility] GLUCOSE (AUTOMATED)2022-11-07 01:42:02* Test Item Value Reference Range Interpretation Comme nts POCT GLU (test code = 3449993966) 310 mg/dL 70-110 H Lab Interpretation (test cod e = 35987-9) Abnormal [facility] GLUCOSE (AUTOMATED)2022-11-06 23:01:23* Test Item Value Reference Range Interpretation Comme nts POCT GLU (test code = 8595768681) 230 mg/dL 70-110 H Lab Interpretation (test cod e = 68198-6) [facility] 17:54:33* Test Item Value Reference Range Interpretation Comme nts POCT GLU (test code = 3828447765) 268 mg/dL 70-110 H Lab Interpretation (test cod e = 28354-4) [facility] 13:26:49* Test Item Value Reference Range Interpretation Comme nts POCT GLU (test code = 4230448558) 170 mg/dL 70-110 H Lab Interpretation (test cod e = 01030-1) Abnormal [facility] GLUCOSE (AUTOMATED)2022-11-06 01:36:25* Test Item Value Reference Range Interpretation Comme nts POCT GLU (test code = 3813143666) 144 mg/dL 70-110 H Lab Interpretation (test cod e = 82735-8) Abnormal [facility] GLUCOSE (AUTOMATED)2022-11-05 22:41:21* Test Item Value Reference Range Interpretation Comme nts POCT GLU (test code = 1534006736) 261 mg/dL 70-110 H Lab Interpretation (test cod e = 58038-3) [facility]2022-[facility]-05 17:39:23* Test Item Value Reference Range Interpretation Comme nts POCT GLU (test code = 5999648954) 270 mg/dL 70-110 H Lab Interpretation (test cod e = 99009-4) [facility]05 12:21:21* Test Item Value Reference Range Interpretation Comme nts POCT GLU (test code = 1674675316) 186 mg/dL 70-110 H Lab Interpretation (test cod e = 83619-1) [facility] 02:03:22* Test Item Value Reference Range Interpretation Comme nts POCT GLU (test code = 2462258711) 250 mg/dL 70-110 H Lab Interpretation (test cod e = 63395-7) Abnormal [facility] GLUCOSE (AUTOMATED)2022-11-04 21:12:00* Test Item Value Reference Range Interpretation Comme nts POCT GLU (test code = 0441927497) 277 mg/dL 70-110 H Lab Interpretation (test cod e = 17992-7) Abnormal [facility] GLUCOSE (AUTOMATED)2022-11-04 16:26:05* Test Item Value Reference Range Interpretation Comme nts POCT GLU (test code = 7364958705) 265 mg/dL 70-110 H Lab Interpretation (test cod e = 42741-3) Abnormal [facility] GLUCOSE (AUTOMATED)2022-11-04 12:44:23* Test Item Value Reference Range Interpretation Comme nts POCT GLU (test code = 5498108432) 209 mg/dL 70-110 H Lab Interpretation (test cod e = 05945-8) Abnormal [facility] METABOLIC PANEL (NA, K, CL, CO2, GLUCOSE, BUN, CREATININE, CA)2022-11-04 09:47:25* Test Item Value Reference Range Interpretation Comme [facility] NA (test code = 0840176968) 130 mmol/L 135-145 L K (test code = 6096945061) 3.7 mmol/L 3.5-5.0 CL (test code = 4946402834) 88 mmol/L 98-108 L CO2 TOTAL (test code = 2480029574) 36 mmol/L 23-31 H AGAP (test code = 5264611270) 6 2-16 BUN (test code = 4209645872) 40 mg/dL 7-23 H GLUCOSE (test code = 7565857501) 203 mg/dL 70-110 H CREATININE (test code = 3153875669) 0.98 mg/dL 0.50-1.04 CALCIUM (test code = 4673013239) 9.1 mg/dL 8.6-10.6 eGFR (test code = 2376052594) 55.0 mL/min/1.73m2 LOW (test code = LOW) [...] imaging tests). Lab Interpretation (test code = 80256-6) Abnormal [facility] WITH [id number] 09:20:24* Test Item Value Reference Range Interpretation Comme nts WBC (test code = 6690-2) 8.24 See_Comment [[employer]] The system which generated this result transmitted reference range: 4.30 - 11.10 10*3/?L. The reference range was not used to interpret this result as normal/abnormal. RBC (test code = 789-8) 3.60 See_Comment L [[employer]] The system which generated this result transmitted [...] 31.9 g/dL 31.6-35.1 RDW-SD (test code = 00133-6) 48.3 fL 39.0-49.9 RDW-CV (test code = 788-0) 15.7 % 12.0-15.5 H PLT (test code = 777-3) 248 See_Comment [Automated messa ge] The system which generated this result transmitted reference range: 166 - 358 10*3/?L. The reference range was not used to interpret this result as normal/abnormal. MPV (test code = 76651-4) 9.3 fL 9.5-12.9 L NRBC/100 WBC (test code = 2116346197) 0.0 See_Comment [Automated me ssage] The system which generated this result transmitted reference range: 0.0 - 10.0 /100 WBCs. The reference range was not used to interpret this result as normal/abnormal. NRBC x10^3 (test code = 9151976296) See_Comment [Automated messa ge] The system which generated this result transmitted reference range: 10*3/?L. The reference range was not used to interpret this result as normal/abnormal. GRAN MAT (NEUT) % (test code = 770-8) 62.5 % IMM GRAN % (test code = 6878144635) 0.50 % LYMPH % (test code = 736-9) 21.0 % MONO % (test code = 5905-5) 11.7 % EOS % (test code = 713-8) 3.9 % BASO % (test code = 706-2) 0.4 % GRAN MAT x10^3(ANC) (test code = 9629125385) 5.16 10*3/uL 1.88-7.09 IMM GRAN x10^3 (test code = 3112904340) 0.04 10*3/uL 0.00-0.06 LYMPH x10^3 (test code = 731-0) 1.73 10*3/uL 1.32-3.29 MONO x10^3 (test code = 742-7) 0.96 10*3/uL 0.33-0.92 H EOS x10^3 (test code = 711-2) 0.32 10*3/uL 0.03-0.39 BASO x10^3 (test code = 704-7) 0.03 10*3/uL 0.01-0.07 Lab Interpretation (test code = 00707-6) Abnormal [facility] GLUCOSE (AUTOMATED)2022-11-04 01:26:31* Test Item Value Reference Range Interpretation Comme nts POCT GLU (test code = 1316316684) 284 mg/dL 70-110 H Lab Interpretation (test cod e = 96777-0) Abnormal [facility] GLUCOSE (AUTOMATED)2022-11-03 22:20:13* Test Item Value Reference Range Interpretation Comme nts POCT GLU (test code = 0024100767) 323 mg/dL 70-110 H Lab Interpretation (test cod e = 99335-5) Abnormal [facility] GLUCOSE (AUTOMATED)2022-11-03 16:39:32* Test Item Value Reference Range Interpretation Comme nts POCT GLU (test code = 7638527962) 293 mg/dL 70-110 H Lab Interpretation (test cod e = 84260-8) Abnormal [facility] GLUCOSE (AUTOMATED)2022-11-03 12:47:29* Test Item Value Reference Range Interpretation Comme nts POCT GLU (test code = 5083351707) 220 mg/dL 70-110 H Lab Interpretation (test cod e = 95600-9) Abnormal [facility] GLUCOSE (AUTOMATED)2022-11-03 01:43:07* Test Item Value Reference Range Interpretation Comme nts POCT GLU (test code = 9365190104) 277 mg/dL 70-110 H Lab Interpretation (test cod e = 66140-7) Abnormal [facility] GLUCOSE (AUTOMATED)2022-11-02 21:08:43* Test Item Value Reference Range Interpretation Comme nts POCT GLU (test code = 8107225031) 191 mg/dL 70-110 H Lab Interpretation (test cod e = 09299-5) Abnormal [facility] GLUCOSE (AUTOMATED)2022-11-02 16:08:02* Test Item Value Reference Range Interpretation Comme nts POCT GLU (test code = 0172351538) 235 mg/dL 70-110 H Lab Interpretation (test cod e = 52718-5) Abnormal [facility] GLUCOSE (AUTOMATED)2022-11-02 12:38:18* Test Item Value Reference Range Interpretation Comme nts POCT GLU (test code = 3434929396) 210 mg/dL 70-110 H Lab Interpretation (test cod e = 26336-6) Abnormal [facility] GLUCOSE (AUTOMATED)2022-11-02 01:45:15* Test Item Value Reference Range Interpretation Comme nts POCT GLU (test code = 5855139940) 268 mg/dL 70-110 H Lab Interpretation (test cod e = 53536-9) Abnormal [facility] GLUCOSE (AUTOMATED)2022-11-01 20:58:38* Test Item Value Reference Range Interpretation Comme nts POCT GLU (test code = 3038259417) 264 mg/dL 70-110 H Lab Interpretation (test cod e = 80160-0) Abnormal [facility] GLUCOSE (AUTOMATED)2022-11-01 16:44:08* Test Item Value Reference Range Interpretation Comme nts POCT GLU (test code = 1155998333) 329 mg/dL 70-110 H Lab Interpretation (test cod e = 84713-8) Abnormal [facility] GLUCOSE (AUTOMATED)2022-11-01 12:40:28* Test Item Value Reference Range Interpretation Comme nts POCT GLU (test code = 9603960639) 185 mg/dL 70-110 H Lab Interpretation (test cod e = 24087-1) Abnormal [facility] GLUCOSE (AUTOMATED)2022-11-01 01:53:10* Test Item Value Reference Range Interpretation Comme nts POCT GLU (test code = 7740411082) 274 mg/dL 70-110 H Lab Interpretation (test cod e = 71375-8) Abnormal [facility] GLUCOSE (AUTOMATED)2022-11-01 01:53:10* Test Item Value Reference Range Interpretation Comme nts POCT GLU (test code = 9462088401) 274 mg/dL 70-110 H Lab Interpretation (test cod e = 92237-2) Abnormal [facility] ACT LOW [id number] 21:06:31* Test Item Value Reference Range Interpretation Comme nts ACTLR (test code = 2449564845) 303 See_Comment H [Automated messa ge] The system which generated this result transmitted reference range: 89 - 169 Seconds. The reference range was not used to interpret this result as normal/abnormal. Lab Interpretation (test code = 67054-2) [facility] [id number] 21:06:31* Test Item Value Reference Range Interpretation Comme nts ACTLR (test code = 0950597372) 294 See_Comment H [Automated messa ge] The system which generated this result transmitted reference range: 89 - 169 Seconds. The reference range was not used to interpret this result as normal/abnormal. Lab Interpretation (test code = 61901-0) [facility] [id number] 21:06:31* Test Item Value Reference Range Interpretation Comme nts ACTLR (test code = 4301453190) 274 See_Comment H [Automated messa ge] The system which generated this result transmitted reference range: 89 - 169 Seconds. The reference range was not used to interpret this result as normal/abnormal. Lab Interpretation (test code = 47513-8) Abnormal [facility] ACT LOW [id number] 21:06:31* Test Item Value Reference Range Interpretation Comme nts ACTLR (test code = 7494900158) 303 See_Comment H [Automated messa ge] The system which generated this result transmitted reference range: 89 - 169 Seconds. The reference range was not used to interpret this result as normal/abnormal. Lab Interpretation (test code = 48421-0) [facility] [id number] 21:06:31* Test Item Value Reference Range Interpretation Comme nts ACTLR (test code = 3361751451) 294 See_Comment H [Automated messa ge] The system which generated this result transmitted reference range: 89 - 169 Seconds. The reference range was not used to interpret this result as normal/abnormal. Lab Interpretation (test code = 93206-3) [facility] [id number] 21:06:31* Test Item Value Reference Range Interpretation Comme nts ACTLR (test code = 7265163095) 274 See_Comment H [Automated messa ge] The system which generated this result transmitted reference range: 89 - 169 Seconds. The reference range was not used to interpret this result as normal/abnormal. Lab Interpretation (test code = 33115-8) [facility] [id number] 21:06:26* Test Item Value Reference Range Interpretation Comme nts ACTLR (test code = 0442075584) 283 See_Comment H [Automated messa ge] The system which generated this result transmitted reference range: 89 - 169 Seconds. The reference range was not used to interpret this result as normal/abnormal. Lab Interpretation (test code = 79421-4) Abnormal [facility] ACT LOW [id number] 21:06:26* Test Item Value Reference Range Interpretation Comme nts ACTLR (test code = 8267274030) 269 See_Comment H [Automated messa ge] The system which generated this result transmitted reference range: 89 - 169 Seconds. The reference range was not used to interpret this result as normal/abnormal. Lab Interpretation (test code = 46640-1) Abnormal [facility] ACT LOW [id number] 21:06:26* Test Item Value Reference Range Interpretation Comme nts ACTLR (test code = 4287764595) 283 See_Comment H [Automated messa ge] The system which generated this result transmitted reference range: 89 - 169 Seconds. The reference range was not used to interpret this result as normal/abnormal. Lab Interpretation (test code = 17523-6) Abnormal [facility] ACT LOW [id number] 21:06:26* Test Item Value Reference Range Interpretation Comme nts ACTLR (test code = 8920222371) 269 See_Comment H [Automated messa ge] The system which generated this result transmitted reference range: 89 - 169 Seconds. The reference range was not used to interpret this result as normal/abnormal. Lab Interpretation (test code = 19582-4) Abnormal [facility] GLUCOSE (AUTOMATED)2022-10-31 12:34:49* Test Item Value Reference Range Interpretation Comme nts POCT GLU (test code = 3268095210) 170 mg/dL 70-110 H Lab Interpretation (test cod e = 21431-1) Abnormal [facility] GLUCOSE (AUTOMATED)2022-10-31 12:34:49* Test Item Value Reference Range Interpretation Comme nts POCT GLU (test code = 2870671108) 170 mg/dL 70-110 H Lab Interpretation (test cod e = 79186-3) Abnormal [facility] GLUCOSE (AUTOMATED)2022-10-31 02:14:46* Test Item Value Reference Range Interpretation Comme nts POCT GLU (test code = 4847007274) 166 mg/dL 70-110 H Lab Interpretation (test cod e = 56354-7) [facility] 02:14:46* Test Item Value Reference Range Interpretation Comme nts POCT GLU (test code = 7387856145) 166 mg/dL 70-110 H Lab Interpretation (test cod e = 65178-9) [facility] D[facility]2022-10-30 23:39:20* Test Item Value Reference Range Interpretation Comme nts APTT Patient (test code = 3173-2) 88 See_Comment H [Automated messa ge] The system which generated this result transmitted reference range: 26 - 36 Seconds. The reference range was not used to interpret this result as normal/abnormal. Lab Interpretation (test code = 62784-9) [facility]2022-[facility]-30 23:39:20* Test Item Value Reference Range Interpretation Comme nts APTT Patient (test code = 3173-2) 88 See_Comment H [Automated messa ge] The system which generated this result transmitted reference range: 26 - 36 Seconds. The reference range was not used to interpret this result as normal/abnormal. Lab Interpretation (test code = 30491-3) Abnormal [facility] GLUCOSE (AUTOMATED)2022-10-30 21:50:55* Test Item Value Reference Range Interpretation Comme nts POCT GLU (test code = 9207543350) 180 mg/dL 70-110 H Lab Interpretation (test cod e = 27520-2) Abnormal [facility] GLUCOSE (AUTOMATED)2022-10-30 21:50:55* Test Item Value Reference Range Interpretation Comme nts POCT GLU (test code = 7884758706) 180 mg/dL 70-110 H Lab Interpretation (test cod e = 72209-7) [facility]2022-10-30 19:48:00* Test Item Value Reference Range Interpretation Comme nts ABO & RH (test code = 20) A Positive [facility]2022-10-30 19:48:00* Test Item Value Reference Range Interpretation Comme nts ABO & RH (test code = 20) [facility] [id number] 18:48:00* Test Item Value Reference Range Interpretation Comme nts ABO & RH (test code = 20) A Positive IAT (test code = 1185) [facility] [id number] 18:48:00* Test Item Value Reference Range Interpretation Comme nts ABO & RH (test code = 20) A Positive IAT (test code = 1185) Negative [facility]2022-[facility]30 17:07:23* Test Item Value Reference Range Interpretation Comme nts POCT GLU (test code = 7485717147) 325 mg/dL 70-110 H Lab Interpretation (test cod e = 69421-3) [facility] 17:07:23* Test Item Value Reference Range Interpretation Comme nts POCT GLU (test code = 7353618428) 325 mg/dL 70-110 H Lab Interpretation (test cod e = 35114-4) [facility] D[facility]2022-10-30 14:54:43* Test Item Value Reference Range Interpretation Comme nts APTT Patient (test code = 3173-2) 41 See_Comment H [Automated messa ge] The system which generated this result transmitted reference range: 26 - 36 Seconds. The reference range was not used to interpret this result as normal/abnormal. Lab Interpretation (test code = 53044-8) [facility] Heparin Drip[facility]2022-10-30 14:54:43* Test Item Value Reference Range Interpretation Comme nts APTT Patient (test code = 3173-2) 41 See_Comment H [Automated messa ge] The system which generated this result transmitted reference range: 26 - 36 Seconds. The reference range was not used to interpret this result as normal/abnormal. Lab Interpretation (test code = 50009-5) [facility] 13:36:28* Test Item Value Reference Range Interpretation Comme nts POCT GLU (test code = 5117151613) 240 mg/dL 70-110 H Lab Interpretation (test cod e = 32078-2) [facility]2022-[facility]-30 13:36:28* Test Item Value Reference Range Interpretation Comme [facility] POCT GLU (test code = 6004497285) 240 mg/dL 70-110 H Lab Interpretation (test cod e = 01966-6) Abnormal [facility] METABOLIC PANEL (NA, K, CL, CO2, GLUCOSE, BUN, CREATININE, CA)2022-10-30 10:16:01* Test Item Value Reference Range Interpretation Comme [facility] NA (test code = 3778431722) 132 mmol/L 135-145 L K (test code = 3560852039) 3.9 mmol/L 3.5-5.0 CL (test code = 3182907009) 93 mmol/L 98-108 L CO2 TOTAL (test code = 3467998924) 39 mmol/L 23-31 H AGAP (test code = 7426862479) 2-16 L BUN (test code = 2239050648) 25 mg/dL 7-23 H GLUCOSE (test code = 4028580763) 236 mg/dL 70-110 H CREATININE (test code = 4816043451) 0.78 mg/dL 0.50-1.04 CALCIUM (test code = 4223027328) 9.2 mg/dL 8.6-10.6 eGFR (test code = 3670118001) 71.6 mL/min/1.73m2 LOW (test code = LOW) [...] imaging tests). Lab Interpretation (test code = 83791-1) Abnormal [facility] METABOLIC PANEL (NA, K, CL, CO2, GLUCOSE, BUN, CREATININE, CA)2022-10-30 10:16:01* Test Item Value Reference Range Interpretation Comme nts NA (test code = 3675251068) 132 mmol/L 135-145 L K (test code = 8467477918) 3.9 mmol/L 3.5-5.0 CL (test code = 5770577528) 93 mmol/L 98-108 L CO2 TOTAL (test code = 9618884044) 39 mmol/L 23-31 H AGAP (test code = 4246238807) 2-16 L BUN (test code = 2305695895) 25 mg/dL 7-23 H GLUCOSE (test code = 0230878995) 236 mg/dL 70-110 H CREATININE (test code = 2765741409) 0.78 mg/dL 0.50-1.04 CALCIUM (test code = 1021566826) 9.2 mg/dL 8.6-10.6 eGFR (test code = 8628331641) 71.6 mL/min/1.73m2 LOW (test code = LOW) [...] imaging tests). Lab Interpretation (test code = 56902-7) Abnormal [facility] WITH [id number] 10:02:20* Test Item Value Reference Range Interpretation Comme nts WBC (test code = 6690-2) 9.92 See_Comment [[employer]] The system which generated this result transmitted reference range: 4.30 - 11.10 10*3/?L. The reference range was not used to interpret this result as normal/abnormal. RBC (test code = 789-8) 3.93 See_Comment [[employer]] The system which generated this result transmitted [...] g/dL 31.6-35.1 L RDW-SD (test code = 17458-4) 50.5 fL 39.0-49.9 H RDW-CV (test code = 788-0) 15.7 % 12.0-15.5 H PLT (test code = 777-3) 269 See_Comment [Automated messa ge] The system which generated this result transmitted reference range: 166 - 358 10*3/?L. The reference range was not used to interpret this result as normal/abnormal. MPV (test code = 91219-4) 9.4 fL 9.5-12.9 L NRBC/100 WBC (test code = 6093757115) 0.0 See_Comment [[employer]ated [employer]] The system which generated this result transmitted reference range: 0.0 - 10.0 /100 WBCs. The reference range was not used to interpret this result as normal/abnormal. NRBC x10^3 (test code = 3272119600) See_Comment [Automated messa ge] The system which generated this result transmitted reference range: 10*3/?L. The reference range was not used to interpret this result as normal/abnormal. GRAN MAT (NEUT) % (test code = 770-8) 67.0 % IMM GRAN % (test code = 0497237220) 0.40 % LYMPH % (test code = 736-9) 19.3 % MONO % (test code = 5905-5) 10.1 % EOS % (test code = 713-8) 3.0 % BASO % (test code = 706-2) 0.2 % GRAN MAT x10^3(ANC) (test code = 8526583117) 6.65 10*3/uL 1.88-7.09 IMM GRAN x10^3 (test code = 3193029337) 0.04 10*3/uL 0.00-0.06 LYMPH x10^3 (test code = 731-0) 1.91 10*3/uL 1.32-3.29 MONO x10^3 (test code = 742-7) 1.00 10*3/uL 0.33-0.92 H EOS x10^3 (test code = 711-2) 0.30 10*3/uL 0.03-0.39 BASO x10^3 (test code = 704-7) 0.01-0.07 Lab Interpretation (test code = 37892-5) Abnormal [facility] WITH [id number] 10:02:20* Test Item Value Reference Range Interpretation [...] g/dL 31.6-35.1 L RDW-SD (test code = 12925-6) 50.5 fL 39.0-49.9 H RDW-CV (test code = 788-0) 15.7 % 12.0-15.5 H PLT (test code = 777-3) 269 See_Comment [Automated messa ge] The system which generated this result transmitted reference range: 166 - 358 10*3/?L. The reference range was not used to interpret this result as normal/abnormal. MPV (test code = 85289-0) 9.4 fL 9.5-12.9 L NRBC/100 WBC (test code = 9251290962) 0.0 See_Comment [Automated me ssage] The system which generated this result transmitted reference range: 0.0 - 10.0 /100 WBCs. The reference range was not used to interpret this result as normal/abnormal. NRBC x10^3 (test code = 2921424576) See_Comment [Automated messa ge] The system which generated this result transmitted reference range: 10*3/?L. The reference range was not used to interpret this result as normal/abnormal. GRAN MAT (NEUT) % (test code = 770-8) 67.0 % IMM GRAN % (test code = 1876068183) 0.40 % LYMPH % (test code = 736-9) 19.3 % MONO % (test code = 5905-5) 10.1 % EOS % (test code = 713-8) 3.0 % BASO % (test code = 706-2) 0.2 % GRAN MAT x10^3(ANC) (test code = 5729794644) 6.65 10*3/uL 1.88-7.09 IMM GRAN x10^3 (test code = 9601709209) 0.04 10*3/uL 0.00-0.06 LYMPH x10^3 (test code = 731-0) 1.91 10*3/uL 1.32-3.29 MONO x10^3 (test code = 742-7) 1.00 10*3/uL 0.33-0.92 H EOS x10^3 (test code = 711-2) 0.30 10*3/uL 0.03-0.39 BASO x10^3 (test code = 704-7) 0.01-0.07 Lab Interpretation (test code = 48653-0) Abnormal [facility] GLUCOSE (AUTOMATED)2022-10-30 01:09:15* Test Item Value Reference Range Interpretation Comme nts POCT GLU (test code = 9912606573) 166 mg/dL 70-110 H Lab Interpretation (test cod e = 92974-9) Abnormal [facility] GLUCOSE (AUTOMATED)2022-10-30 01:09:15* Test Item Value Reference Range Interpretation Comme nts POCT GLU (test code = 0278925900) 166 mg/dL 70-110 H Lab Interpretation (test cod e = 73672-1) [facility]2022-[facility]-30 00:55:01* Test Item Value Reference Range Interpretation Comme nts APTT Patient (test code = 3173-2) 60 See_Comment H [Automated messa ge] The system which generated this result transmitted reference range: 26 - 36 Seconds. The reference range was not used to interpret this result as normal/abnormal. Lab Interpretation (test code = 10937-1) [facility]2022-[facility]-30 00:55:01* Test Item Value Reference Range Interpretation Comme nts APTT Patient (test code = 3173-2) 60 See_Comment H [Automated messa ge] The system which generated this result transmitted reference range: 26 - 36 Seconds. The reference range was not used to interpret this result as normal/abnormal. Lab Interpretation (test code = 41210-3) Abnormal [facility] GLUCOSE (AUTOMATED)2022-10-29 22:04:12* Test Item Value Reference Range Interpretation Comme nts POCT GLU (test code = 7272026372) 204 mg/dL 70-110 H Lab Interpretation (test cod e = 14605-9) Abnormal [facility] GLUCOSE (AUTOMATED)2022-10-29 22:04:12* Test Item Value Reference Range Interpretation Comme nts POCT GLU (test code = 8837820064) 204 mg/dL 70-110 H Lab Interpretation (test cod e = 89155-7) Abnormal [facility] (for use with Heparin Drip)2022-10-29 17:21:28* Test Item Value Reference Range Interpretation Comme nts APTT Patient (test code = 3173-2) 46 See_Comment H [Automated messa ge] The system which generated this result transmitted reference range: 26 - 36 Seconds. The reference range was not used to interpret this result as normal/abnormal. Lab Interpretation (test code = 98704-5) [facility]2022-10-29 17:21:28* Test Item Value Reference Range Interpretation Comme nts APTT Patient (test code = 3173-2) 46 See_Comment H [Automated messa ge] The system which generated this result transmitted reference range: 26 - 36 Seconds. The reference range was not used to interpret this result as normal/abnormal. Lab Interpretation (test code = 35564-3) Abnormal [facility] GLUCOSE (AUTOMATED)2022-10-29 16:42:16* Test Item Value Reference Range Interpretation Comme nts POCT GLU (test code = 4732997229) 216 mg/dL 70-110 H Lab Interpretation (test cod e = 83126-9) Abnormal [facility] GLUCOSE (AUTOMATED)2022-10-29 16:42:16* Test Item Value Reference Range Interpretation Comme nts POCT GLU (test code = 8098629682) 216 mg/dL 70-110 H Lab Interpretation (test cod e = 55339-3) Abnormal [facility] GLUCOSE (AUTOMATED)2022-10-29 13:05:32* Test Item Value Reference Range Interpretation Comme nts POCT GLU (test code = 7677528537) 218 mg/dL 70-110 H Lab Interpretation (test cod e = 70592-4) Abnormal [facility] GLUCOSE (AUTOMATED)2022-10-29 13:05:32* Test Item Value Reference Range Interpretation Comme nts POCT GLU (test code = 1875112080) 218 mg/dL 70-110 H Lab Interpretation (test cod e = 20573-6) [facility] [id number] 05:13:07* Test Item Value Reference Range Interpretation Comme nts APTT Patient (test code = 3173-2) 79 See_Comment H [Automated messa ge] The system which generated this result transmitted reference range: 26 - 36 Seconds. The reference range was not used to interpret this result as normal/abnormal. Lab Interpretation (test code = 15516-3) [facility] [id number] 05:13:07* Test Item Value Reference Range Interpretation Comme nts APTT Patient (test code = 3173-2) 79 See_Comment H [Automated messa ge] The system which generated this result transmitted reference range: 26 - 36 Seconds. The reference range was not used to interpret this result as normal/abnormal. Lab Interpretation (test code = 06647-8) Abnormal [facility] GLUCOSE (AUTOMATED)2022-10-29 01:37:17* Test Item Value Reference Range Interpretation Comme nts POCT GLU (test code = 3979066669) 162 mg/dL 70-110 H Lab Interpretation (test cod e = 75759-1) Abnormal [facility] GLUCOSE (AUTOMATED)2022-10-29 01:37:17* Test Item Value Reference Range Interpretation Comme nts POCT GLU (test code = 8757058386) 162 mg/dL 70-110 H Lab Interpretation (test cod e = 83888-1) Abnormal [facility] GLUCOSE (AUTOMATED)2022-10-29 01:37:17* Test Item Value Reference Range Interpretation Comme nts POCT GLU (test code = 4287226359) 162 mg/dL 70-110 H Lab Interpretation (test cod e = 08619-7) Abnormal [facility] GLUCOSE (AUTOMATED)2022-10-28 22:17:08* Test Item Value Reference Range Interpretation Comme nts POCT GLU (test code = 7520472277) 183 mg/dL 70-110 H Lab Interpretation (test cod e = 10045-7) Abnormal [facility] GLUCOSE (AUTOMATED)2022-10-28 22:17:08* Test Item Value Reference Range Interpretation Comme nts POCT GLU (test code = 0707158873) 183 mg/dL 70-110 H Lab Interpretation (test cod e = 49137-6) Abnormal [facility] GLUCOSE (AUTOMATED)2022-10-28 22:17:08* Test Item Value Reference Range Interpretation Comme nts POCT GLU (test code = 6688726761) 183 mg/dL 70-110 H Lab Interpretation (test cod e = 33842-7) Abnormal [facility] ACT LOW [id number] 19:02:30* Test Item Value Reference Range Interpretation Comme nts ACTLR (test code = 1843608084) 201 See_Comment H [Automated messa ge] The system which generated this result transmitted reference range: 89 - 169 Seconds. The reference range was not used to interpret this result as normal/abnormal. Lab Interpretation (test code = 80826-0) Abnormal [facility] ACT LOW [id number] 19:02:30* Test Item Value Reference Range Interpretation Comme nts ACTLR (test code = 9204242855) 201 See_Comment H [Automated messa ge] The system which generated this result transmitted reference range: 89 - 169 Seconds. The reference range was not used to interpret this result as normal/abnormal. Lab Interpretation (test code = 28280-7) Abnormal [facility] ACT LOW [id number] 19:02:30* Test Item Value Reference Range Interpretation Comme nts ACTLR (test code = 5998444252) 201 See_Comment H [Automated messa ge] The system which generated this result transmitted reference range: 89 - 169 Seconds. The reference range was not used to interpret this result as normal/abnormal. Lab Interpretation (test code = 33819-8) Abnormal [facility] GLUCOSE (AUTOMATED)2022-10-28 01:14:18* Test Item Value Reference Range Interpretation Comme nts POCT GLU (test code = 0147820532) 165 mg/dL 70-110 H Lab Interpretation (test cod e = 07203-3) Abnormal [facility] GLUCOSE (AUTOMATED)2022-10-28 01:14:18* Test Item Value Reference Range Interpretation Comme nts POCT GLU (test code = 4785844329) 165 mg/dL 70-110 H Lab Interpretation (test cod e = 20110-5) Abnormal [facility] GLUCOSE (AUTOMATED)2022-10-28 01:14:18* Test Item Value Reference Range Interpretation Comme nts POCT GLU (test code = 6803240711) 165 mg/dL 70-110 H Lab Interpretation (test cod e = 01530-8) Abnormal [facility] GLUCOSE (AUTOMATED)2022-10-27 22:59:53* Test Item Value Reference Range Interpretation Comme nts POCT GLU (test code = 4347924445) 222 mg/dL 70-110 H Lab Interpretation (test cod e = 87075-7) Abnormal [facility] GLUCOSE (AUTOMATED)2022-10-27 22:59:53* Test Item Value Reference Range Interpretation Comme nts POCT GLU (test code = 4905132062) 222 mg/dL 70-110 H Lab Interpretation (test cod e = 36811-5) Abnormal [facility] GLUCOSE (AUTOMATED)2022-10-27 22:59:53* Test Item Value Reference Range Interpretation Comme nts POCT GLU (test code = 1578501268) 222 mg/dL 70-110 H Lab Interpretation (test cod e = 88176-7) Abnormal [facility] GLUCOSE (AUTOMATED)2022-10-27 21:51:22* Test Item Value Reference Range Interpretation Comme nts POCT GLU (test code = 3986371449) 230 mg/dL 70-110 H Lab Interpretation (test cod e = 29168-2) Abnormal [facility] GLUCOSE (AUTOMATED)2022-10-27 21:51:22* Test Item Value Reference Range Interpretation Comme nts POCT GLU (test code = 3531783225) 230 mg/dL 70-110 H Lab Interpretation (test cod e = 48014-2) Abnormal [facility] GLUCOSE (AUTOMATED)2022-10-27 21:51:22* Test Item Value Reference Range Interpretation Comme nts POCT GLU (test code = 6056154497) 230 mg/dL 70-110 H Lab Interpretation (test cod e = 06962-3) Abnormal [facility] (for use with Heparin Drip)2022-10-27 18:21:08* Test Item Value Reference Range Interpretation Comme nts APTT Patient (test code = 3173-2) 36 See_Comment [Automated messa ge] The system which generated this result transmitted reference range: 26 - 36 Seconds. The reference range was not used to interpret this result as normal/abnormal. Lab Interpretation (test code = 56186-7) Normal [facility] (for use with Heparin Drip)2022-10-27 18:21:08* Test Item Value Reference Range Interpretation Comme nts APTT Patient (test code = 3173-2) 36 See_Comment [Automated messa ge] The system which generated this result transmitted reference range: 26 - 36 Seconds. The reference range was not used to interpret this result as normal/abnormal. Lab Interpretation (test code = 95672-0) [facility]2022-10-27 18:21:08* Test Item Value Reference Range Interpretation Comme nts APTT Patient (test code = 3173-2) 36 See_Comment [Automated messa ge] The system which generated this result transmitted reference range: 26 - 36 Seconds. The reference range was not used to interpret this result as normal/abnormal. Lab Interpretation (test code = 08824-1) Normal [facility] GLUCOSE (AUTOMATED)2022-10-27 17:46:56* Test Item Value Reference Range Interpretation Comme nts POCT GLU (test code = 8967508705) 286 mg/dL 70-110 H Lab Interpretation (test cod e = 34613-7) Abnormal [facility] GLUCOSE (AUTOMATED)2022-10-27 17:46:56* Test Item Value Reference Range Interpretation Comme nts POCT GLU (test code = 1552898470) 286 mg/dL 70-110 H Lab Interpretation (test cod e = 40072-5) Abnormal [facility] GLUCOSE (AUTOMATED)2022-10-27 17:46:56* Test Item Value Reference Range Interpretation Comme nts POCT GLU (test code = 4975495280) 286 mg/dL 70-110 H Lab Interpretation (test cod e = 36336-8) Abnormal [facility] [id number] 15:38:10* Test Item Value Reference Range Interpretation Comme nts TROPONIN I (test code = 1063757268) 0.019 ng/mL <=0.034 LOW (test code = [...] of biotin. Lab Interpretation (test code = 59629-1) Normal [facility] [id number] 15:38:10* Test Item Value Reference Range Interpretation Comme nts TROPONIN I (test code = 7773709761) 0.019 ng/mL <=0.034 LOW (test code = [...] of biotin. Lab Interpretation (test code = 50790-3) [facility] [id number] 15:38:10* Test Item Value Reference Range Interpretation Comme nts TROPONIN I (test code = 8731315631) 0.019 ng/mL <=0.034 LOW (test code = [...] of biotin. Lab Interpretation (test code = 77471-8) Normal [facility] GLUCOSE (AUTOMATED)2022-10-27 13:48:21* Test Item Value Reference Range Interpretation Comme nts POCT GLU (test code = 2358790221) 171 mg/dL 70-110 H Lab Interpretation (test cod e = 56468-0) Abnormal [facility] GLUCOSE (AUTOMATED)2022-10-27 13:48:21* Test Item Value Reference Range Interpretation Comme nts POCT GLU (test code = 3938259638) 171 mg/dL 70-110 H Lab Interpretation (test cod e = 86972-8) Abnormal [facility] GLUCOSE (AUTOMATED)2022-10-27 13:48:21* Test Item Value Reference Range Interpretation Comme nts POCT GLU (test code = 6047754501) 171 mg/dL 70-110 H Lab Interpretation (test cod e = 28520-2) Abnormal [facility] METABOLIC PANEL (NA, K, CL, CO2, GLUCOSE, BUN, CREATININE, CA)2022-10-27 10:01:02* Test Item Value Reference Range Interpretation Comme nts NA (test code = 5425471205) 136 mmol/L 135-145 K (test code = 8120594574) 3.7 mmol/L 3.5-5.0 CL (test code = 6171225388) 98 mmol/L 98-108 CO2 TOTAL (test code = 8924606174) 35 mmol/L 23-31 H AGAP (test code = 7935897557) 3 2-16 BUN (test code = 1117250552) 14 mg/dL 7-23 GLUCOSE (test code = 2844158297) 154 mg/dL 70-110 H CREATININE (test code = 0251644151) 0.54 mg/dL 0.50-1.04 CALCIUM (test code = 2692268233) 8.7 mg/dL 8.6-10.6 eGFR (test code = 0905709742) 109.5 mL/min/1.73m2 LOW (test code = LOW) [...] imaging tests). Lab Interpretation (test code = 07822-0) [facility] 10:01:02* Test Item Value Reference Range Interpretation Comme nts MAGNESIUM (test code = 9526425467) 1.8 mg/dL 1.7-2.4 Lab Interpretation (test cod e = 87009-0) [facility] (NA, K, CL, CO2, GLUCOSE, BUN, CREATININE, CA)2022-10-27 10:01:02* Test Item Value Reference Range Interpretation Comme nts NA (test code = 3322437072) 136 mmol/L 135-145 K (test code = 7063444748) 3.7 mmol/L 3.5-5.0 CL (test code = 5553746800) 98 mmol/L 98-108 CO2 TOTAL (test code = 8395280434) 35 mmol/L 23-31 H AGAP (test code = 1742397695) 3 2-16 BUN (test code = 5918572438) 14 mg/dL 7-23 GLUCOSE (test code = 7241727731) 154 mg/dL 70-110 H CREATININE (test code = 3986260550) 0.54 mg/dL 0.50-1.04 CALCIUM (test code = 8025895603) 8.7 mg/dL 8.6-10.6 eGFR (test code = 2095118013) 109.5 mL/min/1.73m2 LOW (test code = LOW) [...] imaging tests). Lab Interpretation (test code = 02647-6) [facility] 10:01:02* Test Item Value Reference Range Interpretation Comme nts MAGNESIUM (test code = 0956741399) 1.8 mg/dL 1.7-2.4 Lab Interpretation (test cod e = 37142-5) [facility] (NA, K, CL, CO2, GLUCOSE, BUN, CREATININE, CA)2022-10-27 10:01:02* Test Item Value Reference Range Interpretation Comme nts NA (test code = 7898848746) 136 mmol/L 135-145 K (test code = 3709864032) 3.7 mmol/L 3.5-5.0 CL (test code = 8549090764) 98 mmol/L 98-108 CO2 TOTAL (test code = 6086594500) 35 mmol/L 23-31 H AGAP (test code = 5139345538) 3 2-16 BUN (test code = 3079674207) 14 mg/dL 7-23 GLUCOSE (test code = 1042998975) 154 mg/dL 70-110 H CREATININE (test code = 2947925148) 0.54 mg/dL 0.50-1.04 CALCIUM (test code = 9950636631) 8.7 mg/dL 8.6-10.6 eGFR (test code = 9212992701) 109.5 mL/min/1.73m2 LOW (test code = LOW) [...] imaging tests). Lab Interpretation (test code = 63392-3) [facility] 10:01:02* Test Item Value Reference Range Interpretation Comme nts MAGNESIUM (test code = 8013750819) 1.8 mg/dL 1.7-2.4 Lab Interpretation (test cod e = 31647-4) Normal [facility] WITH [id number] 09:40:42* Test Item Value Reference Range Interpretation Comme nts WBC (test code = 6690-2) 7.06 See_Comment [Automated messa iTagged] The system which generated this result transmitted [...] g/dL 31.6-35.1 L RDW-SD (test code = 42243-8) 53.0 fL 39.0-49.9 H RDW-CV (test code = 788-0) 16.3 % 12.0-15.5 H PLT (test code = 777-3) 277 See_Comment [Automated messa ge] The system which generated this result transmitted reference range: 166 - 358 10*3/?L. The reference range was not used to interpret this result as normal/abnormal. MPV (test code = 35369-5) 9.6 fL 9.5-12.9 NRBC/100 WBC (test code = 0093612949) 0.0 See_Comment [Automated me ssage] The system which generated this result transmitted reference range: 0.0 - 10.0 /100 WBCs. The reference range was not used to interpret this result as normal/abnormal. NRBC x10^3 (test code = 2746659389) See_Comment [Automated messa ge] The system which generated this result transmitted reference range: 10*3/?L. The reference range was not used to interpret this result as normal/abnormal. GRAN MAT (NEUT) % (test code = 770-8) 56.5 % IMM GRAN % (test code = 7848330599) 0.10 % LYMPH % (test code = 736-9) 29.5 % MONO % (test code = 5905-5) 10.8 % EOS % (test code = 713-8) 2.7 % BASO % (test code = 706-2) 0.4 % GRAN MAT x10^3(ANC) (test code = 8848428445) 3.99 10*3/uL 1.88-7.09 IMM GRAN x10^3 (test code = 9336905922) 0.00-0.06 LYMPH x10^3 (test code = 731-0) 2.08 10*3/uL 1.32-3.29 MONO x10^3 (test code = 742-7) 0.76 10*3/uL 0.33-0.92 EOS x10^3 (test code = 711-2) 0.19 10*3/uL 0.03-0.39 BASO x10^3 (test code = 704-7) 0.03 10*3/uL 0.01-0.07 Lab Interpretation (test code = 44719-5) Abnormal [facility] WITH [id number] 09:40:42* Test Item Value Reference Range Interpretation [...] g/dL 31.6-35.1 L RDW-SD (test code = 14639-6) 53.0 fL 39.0-49.9 H RDW-CV (test code = 788-0) 16.3 % 12.0-15.5 H PLT (test code = 777-3) 277 See_Comment [Automated messa ge] The system which generated this result transmitted reference range: 166 - 358 10*3/?L. The reference range was not used to interpret this result as normal/abnormal. MPV (test code = 18902-8) 9.6 fL 9.5-12.9 NRBC/100 WBC (test code = 4291555694) 0.0 See_Comment [Automated me ssage] The system which generated this result transmitted reference range: 0.0 - 10.0 /100 WBCs. The reference range was not used to interpret this result as normal/abnormal. NRBC x10^3 (test code = 8604024816) See_Comment [Automated messa ge] The system which generated this result transmitted reference range: 10*3/?L. The reference range was not used to interpret this result as normal/abnormal. GRAN MAT (NEUT) % (test code = 770-8) 56.5 % IMM GRAN % (test code = 7600422883) 0.10 % LYMPH % (test code = 736-9) 29.5 % MONO % (test code = 5905-5) 10.8 % EOS % (test code = 713-8) 2.7 % BASO % (test code = 706-2) 0.4 % GRAN MAT x10^3(ANC) (test code = 0976412958) 3.99 10*3/uL 1.88-7.09 IMM GRAN x10^3 (test code = 1023711474) 0.00-0.06 LYMPH x10^3 (test code = 731-0) 2.08 10*3/uL 1.32-3.29 MONO x10^3 (test code = 742-7) 0.76 10*3/uL 0.33-0.92 EOS x10^3 (test code = 711-2) 0.19 10*3/uL 0.03-0.39 BASO x10^3 (test code = 704-7) 0.03 10*3/uL 0.01-0.07 Lab Interpretation (test code = 04867-3) Abnormal [facility] WITH [id number] 09:40:42* Test Item Value Reference Range Interpretation [...] g/dL 31.6-35.1 L RDW-SD (test code = 37659-6) 53.0 fL 39.0-49.9 H RDW-CV (test code = 788-0) 16.3 % 12.0-15.5 H PLT (test code = 777-3) 277 See_Comment [Automated messa ge] The system which generated this result transmitted reference range: 166 - 358 10*3/?L. The reference range was not used to interpret this result as normal/abnormal. MPV (test code = 20890-9) 9.6 fL 9.5-12.9 NRBC/100 WBC (test code = 6134367249) 0.0 See_Comment [Automated me ssage] The system which generated this result transmitted reference range: 0.0 - 10.0 /100 WBCs. The reference range was not used to interpret this result as normal/abnormal. NRBC x10^3 (test code = 3514504477) See_Comment [Automated messa ge] The system which generated this result transmitted reference range: 10*3/?L. The reference range was not used to interpret this result as normal/abnormal. GRAN MAT (NEUT) % (test code = 770-8) 56.5 % IMM GRAN % (test code = 8335997757) 0.10 % LYMPH % (test code = 736-9) 29.5 % MONO % (test code = 5905-5) 10.8 % EOS % (test code = 713-8) 2.7 % BASO % (test code = 706-2) 0.4 % GRAN MAT x10^3(ANC) (test code = 9886821349) 3.99 10*3/uL 1.88-7.09 IMM GRAN x10^3 (test code = 2888721281) 0.00-0.06 LYMPH x10^3 (test code = 731-0) 2.08 10*3/uL 1.32-3.29 MONO x10^3 (test code = 742-7) 0.76 10*3/uL 0.33-0.92 EOS x10^3 (test code = 711-2) 0.19 10*3/uL 0.03-0.39 BASO x10^3 (test code = 704-7) 0.03 10*3/uL 0.01-0.07 Lab Interpretation (test code = 02139-5) Abnormal [facility] GLUCOSE (AUTOMATED)2022-10-27 02:04:42* Test Item Value Reference Range Interpretation Comme nts POCT GLU (test code = 2269301806) 197 mg/dL 70-110 H Lab Interpretation (test cod e = 86852-2) Abnormal [facility] GLUCOSE (AUTOMATED)2022-10-27 02:04:42* Test Item Value Reference Range Interpretation Comme nts POCT GLU (test code = 8526934047) 197 mg/dL 70-110 H Lab Interpretation (test cod e = 79487-5) Abnormal [facility] GLUCOSE (AUTOMATED)2022-10-27 02:04:42* Test Item Value Reference Range Interpretation Comme nts POCT GLU (test code = 5763726905) 197 mg/dL 70-110 H Lab Interpretation (test cod e = 21799-0) Abnormal [facility] METABOLIC PANEL (NA, K, CL, CO2, GLUCOSE, BUN, CREATININE, CA)2022-10-26 22:22:34* Test Item Value Reference Range Interpretation Comme nts NA (test code = 0389392708) 136 mmol/L 135-145 K (test code = 0516802327) 3.8 mmol/L 3.5-5.0 CL (test code = 6547146088) 98 mmol/L 98-108 CO2 TOTAL (test code = 5249197353) 32 mmol/L 23-31 H AGAP (test code = 8188853771) 6 2-16 BUN (test code = 3208274806) 12 mg/dL 7-23 GLUCOSE (test code = 5326125782) 174 mg/dL 70-110 H CREATININE (test code = 0505880294) 0.52 mg/dL 0.50-1.04 CALCIUM (test code = 2668259435) 8.7 mg/dL 8.6-10.6 eGFR (test code = 2599999566) 114.3 mL/min/1.73m2 LOW (test code = LOW) [...] imaging tests). Lab Interpretation (test code = 93933-5) [facility] Test Item Value Reference Range Interpretation Comme nts MAGNESIUM (test code = 6685515499) 1.5 mg/dL 1.7-2.4 L Lab Interpretation (test cod e = 89869-4) [facility] (NA, K, CL, CO2, GLUCOSE, BUN, CREATININE, CA)2022-10-26 22:22:34* Test Item Value Reference Range Interpretation Comme nts NA (test code = 1542019159) 136 mmol/L 135-145 K (test code = 3209428353) 3.8 mmol/L 3.5-5.0 CL (test code = 6652995566) 98 mmol/L 98-108 CO2 TOTAL (test code = 4788563711) 32 mmol/L 23-31 H AGAP (test code = 4413638845) 6 2-16 BUN (test code = 1423726614) 12 mg/dL 7-23 GLUCOSE (test code = 0235471348) 174 mg/dL 70-110 H CREATININE (test code = 2126434056) 0.52 mg/dL 0.50-1.04 CALCIUM (test code = 4067990159) 8.7 mg/dL 8.6-10.6 eGFR (test code = 4352003448) 114.3 mL/min/1.73m2 LOW (test code = LOW) [...] imaging tests). Lab Interpretation (test code = 50949-0) [facility] 22:22:34* Test Item Value Reference Range Interpretation Comme nts MAGNESIUM (test code = 5513011501) 1.5 mg/dL 1.7-2.4 L Lab Interpretation (test cod e = 24038-6) [facility] (NA, K, CL, CO2, GLUCOSE, BUN, CREATININE, CA)2022-10-26 22:22:34* Test Item Value Reference Range Interpretation Comme nts NA (test code = 0267039997) 136 mmol/L 135-145 K (test code = 3094751482) 3.8 mmol/L 3.5-5.0 CL (test code = 0641446715) 98 mmol/L 98-108 CO2 TOTAL (test code = 2792189770) 32 mmol/L 23-31 H AGAP (test code = 2491998289) 6 2-16 BUN (test code = 9346497009) 12 mg/dL 7-23 GLUCOSE (test code = 1239564096) 174 mg/dL 70-110 H CREATININE (test code = 0450536344) 0.52 mg/dL 0.50-1.04 CALCIUM (test code = 6626757782) 8.7 mg/dL 8.6-10.6 eGFR (test code = 9207225044) 114.3 mL/min/1.73m2 LOW (test code = LOW) [...] imaging tests). Lab Interpretation (test code = 66773-8) [facility] 22:22:34* Test Item Value Reference Range Interpretation Comme nts MAGNESIUM (test code = 8167287837) 1.5 mg/dL 1.7-2.4 L Lab Interpretation (test cod e = 11678-5) Abnormal [facility] GLUCOSE (AUTOMATED)2022-10-26 21:49:52* Test Item Value Reference Range Interpretation Comme nts POCT GLU (test code = 2604709051) 170 mg/dL 70-110 H Lab Interpretation (test cod e = 83938-8) Abnormal [facility] GLUCOSE (AUTOMATED)2022-10-26 21:49:52* Test Item Value Reference Range Interpretation Comme nts POCT GLU (test code = 8592208054) 170 mg/dL 70-110 H Lab Interpretation (test cod e = 20316-4) Abnormal [facility] GLUCOSE (AUTOMATED)2022-10-26 21:49:52* Test Item Value Reference Range Interpretation Comme nts POCT GLU (test code = 8790399875) 170 mg/dL 70-110 H Lab Interpretation (test cod e = 16502-4) Abnormal [facility] GLUCOSE (AUTOMATED)2022-10-26 17:58:19* Test Item Value Reference Range Interpretation Comme nts POCT GLU (test code = 0430290401) 222 mg/dL 70-110 H Lab Interpretation (test cod e = 10452-3) Abnormal [facility] GLUCOSE (AUTOMATED)2022-10-26 17:58:19* Test Item Value Reference Range Interpretation Comme nts POCT GLU (test code = 4794408046) 222 mg/dL 70-110 H Lab Interpretation (test cod e = 42756-1) Abnormal [facility] GLUCOSE (AUTOMATED)2022-10-26 17:58:19* Test Item Value Reference Range Interpretation Comme nts POCT GLU (test code = 1163724079) 222 mg/dL 70-110 H Lab Interpretation (test cod e = 59790-5) Abnormal [facility] GLUCOSE (AUTOMATED)2022-10-26 14:21:08* Test Item Value Reference Range Interpretation Comme nts POCT GLU (test code = 8140583247) 137 mg/dL 70-110 H Lab Interpretation (test cod e = 96922-4) Abnormal [facility] GLUCOSE (AUTOMATED)2022-10-26 14:21:08* Test Item Value Reference Range Interpretation Comme nts POCT GLU (test code = 2123798828) 137 mg/dL 70-110 H Lab Interpretation (test cod e = 95878-2) Abnormal [facility] GLUCOSE (AUTOMATED)2022-10-26 14:21:08* Test Item Value Reference Range Interpretation Comme nts POCT GLU (test code = 1156535770) 137 mg/dL 70-110 H Lab Interpretation (test cod e = 18639-2) [id number] 08:50:55* Test Item Value Reference Range Interpretation Comme nts TROPONIN I (test code = 8662133998) 0.008 ng/mL <=0.034 LOW (test code = [...] of biotin. Lab Interpretation (test code = 93200-9) Normal [facility] [id number] 08:50:55* Test Item Value Reference Range Interpretation Comme nts TROPONIN I (test code = 2334377655) 0.008 ng/mL <=0.034 LOW (test code = [...] of biotin. Lab Interpretation (test code = 76494-5) Normal [facility] [id number] 08:50:55* Test Item Value Reference Range Interpretation Comme nts TROPONIN I (test code = 4554997663) 0.008 ng/mL <=0.034 LOW (test code = [...] of biotin. Lab Interpretation (test code = 85125-4) [id number] 08:47:55* Test Item Value Reference Range Interpretation Comme nts NT-proBNP (test code = 1380252366) 1350 pg/mL <=450 H LOW (test code = LOW) Biotin has been reported to cause a negative bias, interpret results relative to patient's use of biotin. Lab Interpretation (test code = 45711-2) Abnormal [facility] [id number] 08:47:55* Test Item Value Reference Range Interpretation Comme nts NT-proBNP (test code = 9738563738) 1350 pg/mL <=450 H LOW (test code = LOW) Biotin has been reported to cause a negative bias, interpret results relative to patient's use of biotin. Lab Interpretation (test code = 31596-3) [facility]normal [facility] [id number] 08:47:55* Test Item Value Reference Range Interpretation Comme nts NT-proBNP (test code = 0908682569) 1350 pg/mL <=450 H LOW (test code = LOW) Biotin has been reported to cause a negative bias, interpret results relative to patient's use of biotin. Lab Interpretation (test code = 98536-8) Abnormal [facility]. METABOLIC PANEL (20801)2022-10-26 08:39:16* Test Item Value Reference Range Interpretation Comme nts NA (test code = 9484013253) 138 mmol/L 135-145 K (test code = 1993468087) 4.5 mmol/L 3.5-5.0 CL (test code = 0672969297) 105 mmol/L 98-108 CO2 TOTAL (test code = 1590546355) 27 mmol/L 23-31 AGAP (test code = 1301988424) 6 2-16 BUN (test code = 4048561034) 13 mg/dL 7-23 GLUCOSE (test code = 7741086268) 186 mg/dL 70-110 H CREATININE (test code = 1362230102) 0.51 mg/dL 0.50-1.04 TOTAL BILI (test code = 5140686178) 0.8 mg/dL 0.1-1.1 CALCIUM (test code = 5848695743) 8.7 mg/dL 8.6-10.6 T PROTEIN (test code = 1311820618) 6.5 g/dL 6.3-8.2 ALBUMIN (test code = 8788437376) 3.7 g/dL 3.5-5.0 ALK PHOS (test code = 0266130777) 54 U/L 34-122 ALTv (test code = 1742-6) 16 U/L 5-35 AST(SGOT) (test code = 5376167242) 32 U/L 13-40 eGFR (test code = 4382856806) 116.9 mL/min/1.73m2 LOW (test code = LOW) [...] imaging tests). Lab Interpretation (test code = 13382-7) Abnormal [facility]. METABOLIC PANEL (08961)2022-10-26 08:39:16* Test Item Value Reference Range Interpretation Comme nts NA (test code = 6929240336) 138 mmol/L 135-145 K (test code = 8595667435) 4.5 mmol/L 3.5-5.0 CL (test code = 4426294160) 105 mmol/L 98-108 CO2 TOTAL (test code = 7336867746) 27 mmol/L 23-31 AGAP (test code = 7184535783) 6 2-16 BUN (test code = 6942497119) 13 mg/dL 7-23 GLUCOSE (test code = 8635127597) 186 mg/dL 70-110 H CREATININE (test code = 7738787053) 0.51 mg/dL 0.50-1.04 TOTAL BILI (test code = 3665042541) 0.8 mg/dL 0.1-1.1 CALCIUM (test code = 1890908495) 8.7 mg/dL 8.6-10.6 T PROTEIN (test code = 4703500994) 6.5 g/dL 6.3-8.2 ALBUMIN (test code = 5502673927) 3.7 g/dL 3.5-5.0 ALK PHOS (test code = 2385282256) 54 U/L 34-122 ALTv (test code = 1742-6) 16 U/L 5-35 AST(SGOT) (test code = 1284174462) 32 U/L 13-40 eGFR (test code = 0815604041) 116.9 mL/min/1.73m2 LOW (test code = LOW) [...] imaging tests). Lab Interpretation (test code = 98718-0) [facility] MET[facility]OLIC PANEL (85263)2022-10-26 08:39:16* Test Item Value Reference Range Interpretation Comme nts NA (test code = 8985673087) 138 mmol/L 135-145 K (test code = 9707175909) 4.5 mmol/L 3.5-5.0 CL (test code = 8711781902) 105 mmol/L 98-108 CO2 TOTAL (test code = 8947160219) 27 mmol/L 23-31 AGAP (test code = 0992873747) 6 2-16 BUN (test code = 1453351004) 13 mg/dL 7-23 GLUCOSE (test code = 8334355883) 186 mg/dL 70-110 H CREATININE (test code = 2690667033) 0.51 mg/dL 0.50-1.04 TOTAL BILI (test code = 1543149231) 0.8 mg/dL 0.1-1.1 CALCIUM (test code = 3545813731) 8.7 mg/dL 8.6-10.6 T PROTEIN (test code = 2563766935) 6.5 g/dL 6.3-8.2 ALBUMIN (test code = 8949607983) 3.7 g/dL 3.5-5.0 ALK PHOS (test code = 0311647119) 54 U/L 34-122 ALTv (test code = 1742-6) 16 U/L 5-35 AST(SGOT) (test code = 3673928582) 32 U/L 13-40 eGFR (test code = 2159024834) 116.9 mL/min/1.73m2 LOW (test code = LOW) [...] imaging tests). Lab Interpretation (test code = 25392-1) [facility]normal [facility] / [id number] 08:26:13* Test Item Value Reference Range Interpretation Comme [facility] PATIENT (test code = 5964-2) 13.3 See_Comment [[employer]] The system which generated this result transmitted reference range: 12.0 - 14.7 Seconds. The reference range was not used to interpret this result as normal/abnormal. INR (test code = 6301-6) 1.0 Normal INR <1.1; Warfarin Therapeutic range 2.0 to 3.0 or 2.5 to 3.5, depending upon the indications. Lab Interpretation (test code = 47428-5) Normal [facility] / [id number] 08:26:13* Test Item Value Reference Range Interpretation Comme [facility] PATIENT (test code = 5964-2) 13.3 See_Comment [Automated messa ge] The system which generated this result transmitted reference range: 12.0 - 14.7 Seconds. The reference range was not used to interpret this result as normal/abnormal. INR (test code = 6301-6) 1.0 Normal INR <1.1; Warfarin Therapeutic range 2.0 to 3.0 or 2.5 to 3.5, depending upon the indications. Lab Interpretation (test code = 81435-1) Normal [facility] / [id number] 08:26:13* Test Item Value Reference Range Interpretation Comme nts PROTIME PATIENT (test code = 5964-2) 13.3 See_Comment [Automated messa [employer]] The system which generated this result transmitted reference range: 12.0 - 14.7 Seconds. The reference range was not used to interpret this result as normal/abnormal. INR (test code = 6301-6) 1.0 Normal INR <1.1; Warfarin Therapeutic range 2.0 to 3.0 or 2.5 to 3.5, depending upon the indications. Lab Interpretation (test code = 91173-9) Normal [facility] WITH [id number] 08:14:13* Test Item Value Reference Range Interpretation Comme [facility] WBC (test code = 6690-2) 9.20 See_Comment [...] g/dL 31.6-35.1 L RDW-SD (test code = 45218-4) 53.8 fL 39.0-49.9 H RDW-CV (test code = 788-0) 16.5 % 12.0-15.5 H PLT (test code = 777-3) 308 See_Comment [Automated messa ge] The system which generated this result transmitted reference range: 166 - 358 10*3/?L. The reference range was not used to interpret this result as normal/abnormal. MPV (test code = 43050-8) 9.9 fL 9.5-12.9 NRBC/100 WBC (test code = 5645031801) 0.0 See_Comment [Automated me ssage] The system which generated this result transmitted reference range: 0.0 - 10.0 /100 WBCs. The reference range was not used to interpret this result as normal/abnormal. NRBC x10^3 (test code = 5267374794) See_Comment [Automated messa ge] The system which generated this result transmitted reference range: 10*3/?L. The reference range was not used to interpret this result as normal/abnormal. GRAN MAT (NEUT) % (test code = 770-8) 67.0 % IMM GRAN % (test code = 4906485697) 0.30 % LYMPH % (test code = 736-9) 20.5 % MONO % (test code = 5905-5) 8.5 % EOS % (test code = 713-8) 3.3 % BASO % (test code = 706-2) 0.4 % GRAN MAT x10^3(ANC) (test code = 8493430551) 6.16 10*3/uL 1.88-7.09 IMM GRAN x10^3 (test code = 9733180378) 0.03 10*3/uL 0.00-0.06 LYMPH x10^3 (test code = 731-0) 1.89 10*3/uL 1.32-3.29 MONO x10^3 (test code = 742-7) 0.78 10*3/uL 0.33-0.92 EOS x10^3 (test code = 711-2) 0.30 10*3/uL 0.03-0.39 BASO x10^3 (test code = 704-7) 0.04 10*3/uL 0.01-0.07 Lab Interpretation (test code = 01489-7) Abnormal [facility] WITH [id number] 08:14:13* Test Item Value Reference Range Interpretation [...] g/dL 31.6-35.1 L RDW-SD (test code = 40717-2) 53.8 fL 39.0-49.9 H RDW-CV (test code = 788-0) 16.5 % 12.0-15.5 H PLT (test code = 777-3) 308 See_Comment [Automated messa ge] The system which generated this result transmitted reference range: 166 - 358 10*3/?L. The reference range was not used to interpret this result as normal/abnormal. MPV (test code = 14582-5) 9.9 fL 9.5-12.9 NRBC/100 WBC (test code = 9399670053) 0.0 See_Comment [Automated [employer] ssage] The system which generated this result transmitted reference range: 0.0 - 10.0 /100 WBCs. The reference range was not used to interpret this result as normal/abnormal. NRBC x10^3 (test code = 7228296243) See_Comment [Automated messa ge] The system which generated this result transmitted reference range: 10*3/?L. The reference range was not used to interpret this result as normal/abnormal. GRAN MAT (NEUT) % (test code = 770-8) 67.0 % IMM GRAN % (test code = 1225208556) 0.30 % LYMPH % (test code = 736-9) 20.5 % MONO % (test code = 5905-5) 8.5 % EOS % (test code = 713-8) 3.3 % BASO % (test code = 706-2) 0.4 % GRAN MAT x10^3(ANC) (test code = 8803049908) 6.16 10*3/uL 1.88-7.09 IMM GRAN x10^3 (test code = 2186787764) 0.03 10*3/uL 0.00-0.06 LYMPH x10^3 (test code = 731-0) 1.89 10*3/uL 1.32-3.29 MONO x10^3 (test code = 742-7) 0.78 10*3/uL 0.33-0.92 EOS x10^3 (test code = 711-2) 0.30 10*3/uL 0.03-0.39 BASO x10^3 (test code = 704-7) 0.04 10*3/uL 0.01-0.07 Lab Interpretation (test code = 87018-4) Abnormal [facility] WITH [id number] 08:14:13* Test Item Value Reference Range Interpretation [...] g/dL 31.6-35.1 L RDW-SD (test code = 04086-4) 53.8 fL 39.0-49.9 H RDW-CV (test code = 788-0) 16.5 % 12.0-15.5 H PLT (test code = 777-3) 308 See_Comment [[employer]] The system which generated this result transmitted reference range: 166 - 358 10*3/?L. The reference range was not used to interpret this result as normal/abnormal. MPV (test code = 02979-4) 9.9 fL 9.5-12.9 NRBC/100 WBC (test code = 5874772548) 0.0 See_Comment [Automated [employer] ssage] The system which generated this result transmitted reference range: 0.0 - 10.0 /100 WBCs. The reference range was not used to interpret this result as normal/abnormal. NRBC x10^3 (test code = 3107986443) See_Comment [[employer]] The system which generated this result transmitted reference range: 10*3/?L. The reference range was not used to interpret this result as normal/abnormal. GRAN MAT (NEUT) % (test code = 770-8) 67.0 % IMM GRAN % (test code = 8079350420) 0.30 % LYMPH % (test code = 736-9) 20.5 % MONO % (test code = 5905-5) 8.5 % EOS % (test code = 713-8) 3.3 % BASO % (test code = 706-2) 0.4 % GRAN MAT x10^3(ANC) (test code = 8253170068) 6.16 10*3/uL 1.88-7.09 IMM GRAN x10^3 (test code = 6057900832) 0.03 10*3/uL 0.00-0.06 LYMPH x10^3 (test code = 731-0) 1.89 10*3/uL 1.32-3.29 MONO x10^3 (test code = 742-7) 0.78 10*3/uL 0.33-0.92 EOS x10^3 (test code = 711-2) 0.30 10*3/uL 0.03-0.39 BASO x10^3 (test code = 704-7) 0.04 10*3/uL 0.01-0.07 Lab Interpretation (test code = 10654-7) [facility]normal [facility] [id number] 08:12:34SPECIMEN NUMBER: [id number] CULTURE, URINE SPECIMEN NUMBER: [id number] SPECIMEN COMMENT: URINE SOURCE: URINE REPORT STATUS: [...] TESTING PERFORMED AT [facility] [address] [place] [address] LICENSED MASSAGE THERAPIST: DIANELYS ANDERSON M.D. CLIA NUMBER [id number] [place] [id number], [id number] 00:00:00* Test Item Value Reference Range Interpretation Comme nts CULTURE, URINE (test code = 83815) SPECIMEN NUMBER: [id number] [facility] [id number] 00:00:00* Test Item Value Reference Range Interpretation Comme nts CULTURE, URINE (test code = 36635) SPECIMEN NUMBER: [id number] [facility], [id number] 00:00:00* Test Item Value Reference Range Interpretation Comme nts CULTURE, URINE (test code = 95221) SPECIMEN NUMBER: [id number] Surendra Knowles, [id number] 00:00:00* Test Item Value Reference Range Interpretation Comme nts CULTURE, URINE (test code = 43021) SPECIMEN NUMBER: [id number] Surendra Knowles, [id number] 00:00:00* Test Item Value Reference Range Interpretation Comme nts CULTURE, URINE (test code = 84755) SPECIMEN NUMBER: [id number] Surendra Knowles, [id number] 00:00:00* Test Item Value Reference Range Interpretation Comme nts CULTURE, URINE (test code = 53640) SPECIMEN NUMBER: [id number] Surendra Knowles, [id number] 00:00:00* Test Item Value Reference Range Interpretation Comme nts CULTURE, URINE (test code = 25065) SPECIMEN NUMBER: [id number] Surendra Knowles, [id number] 00:00:00* Test Item Value Reference Range Interpretation Comme nts CULTURE, URINE (test code = 45055) SPECIMEN NUMBER: [id number] Surendra Ross [place] GLUCOSE [place]AUT[place]2022-09-06 22:24:54* Test Item Value Reference Range Interpretation Comme nts POCT GLU (test code = 2853728988) 287 mg/dL 70-110 H Lab Interpretation (test cod e = 60996-4) [facility]20[facility]-06 16:41:31* Test Item Value Reference Range Interpretation Comme nts POCT GLU (test code = 2351201318) 175 mg/dL 70-110 H Notified Provide r Lab Interpretation (test code = 60117-8) [facility] 14:47:22* Test Item Value Reference Range Interpretation Comme nts POCT GLU (test code = 5751173104) 148 mg/dL 70-110 H Lab Interpretation (test cod e = 03819-2) [facility]normal [facility]2022-09-06 12:35:53* Test Item Value Reference Range Interpretation Comme nts POCT GLU (test code = 0587964785) 165 mg/dL 70-110 H Notified Provide r Lab Interpretation (test code = 12336-9) Abnormal [facility] GLUCOSE (AUTOMATED)2022-09-06 00:51:42* Test Item Value Reference Range Interpretation Comme nts POCT GLU (test code = 2083233094) 264 mg/dL 70-110 H Lab Interpretation (test cod e = 68522-8) Abnormal [facility] GLUCOSE (AUTOMATED)2022-09-05 22:16:15* Test Item Value Reference Range Interpretation Comme nts POCT GLU (test code = 5466668634) 252 mg/dL 70-110 H Lab Interpretation (test cod e = 54066-0) Abnormal [facility] GLUCOSE (AUTOMATED)2022-09-05 21:25:17* Test Item Value Reference Range Interpretation Comme nts POCT GLU (test code = 1227058225) 244 mg/dL 70-110 H Lab Interpretation (test cod e = 71631-6) Abnormal [facility] GLUCOSE (AUTOMATED)2022-09-05 17:01:15* Test Item Value Reference Range Interpretation Comme nts POCT GLU (test code = 7141024441) 219 mg/dL 70-110 H Lab Interpretation (test cod e = 71115-7) [facility]2022-[facility]-05 02:11:39* Test Item Value Reference Range Interpretation Comme nts POCT GLU (test code = 0040003243) 316 mg/dL 70-110 H Lab Interpretation (test cod e = 23575-5) [facility]2022-09-04 23:14:25* Test Item Value Reference Range Interpretation Comme nts POCT GLU (test code = 5147264572) 254 mg/dL 70-110 H Lab Interpretation (test cod e = 84985-6) [facility]2022-09-04 17:06:25* Test Item Value Reference Range Interpretation Comme nts POCT GLU (test code = 9499093414) 282 mg/dL 70-110 H Lab Interpretation (test cod e = 98174-1) Abnormal [facility] GLUCOSE (AUTOMATED)2022-09-04 13:32:54* Test Item Value Reference Range Interpretation Comme nts POCT GLU (test code = 1483858327) 181 mg/dL 70-110 H Lab Interpretation (test cod e = 09772-4) Abnormal [facility] GLUCOSE (AUTOMATED)2022-09-04 02:20:42* Test Item Value Reference Range Interpretation Comme nts POCT GLU (test code = 1511140031) 262 mg/dL 70-110 H Lab Interpretation (test cod e = 57563-5) Abnormal [facility] GLUCOSE (AUTOMATED)2022-09-03 22:30:06* Test Item Value Reference Range Interpretation Comme nts POCT GLU (test code = 7052126710) 242 mg/dL 70-110 H Lab Interpretation (test cod e = 71473-9) Abnormal [facility] GLUCOSE (AUTOMATED)2022-09-03 17:49:27* Test Item Value Reference Range Interpretation Comme nts POCT GLU (test code = 8214657333) 290 mg/dL 70-110 H Lab Interpretation (test cod e = 00550-5) Abnormal [facility] GLUCOSE (AUTOMATED)2022-09-03 13:35:16* Test Item Value Reference Range Interpretation Comme nts POCT GLU (test code = 0595298101) 193 mg/dL 70-110 H Lab Interpretation (test cod e = 33249-1) Abnormal [facility] GLUCOSE (AUTOMATED)2022-09-03 02:55:14* Test Item Value Reference Range Interpretation Comme nts POCT GLU (test code = 6654788339) 126 mg/dL 70-110 H Lab Interpretation (test cod e = 08004-3) Abnormal [facility], 25 [id number] 06:41:41* Test Item Value Reference Range Interpretation [...] . NG/ML 30-100 TSH + FREE T4 [id number] 06:40:44* Test Item Value Reference Range Interpretation Comme nts TSH, THIRD GENERATION (test code = 2821) 2.440 UIU/ML 0.400-4.100 FREE T4 (THYROXINE) (test co de = 2823) 1.61 NG/DL 0.80-1.90 HEMOGLOBIN [id number] 04:54:32* Test Item Value Reference Range Interpretation Comme nts HEMOGLOBIN A1c (test code = 61885) 8.1 % 4.2-5.6 H CITIZEN [place] [employer] GUIDELINES FOR HGB A1C: [...] ALTERNATE TESTING OR LABORATORY CONSULTATION. COMPREHENSIVE METABOLIC [id number] 04:20:58* Test Item Value Reference Range Interpretation Comme nts GLUCOSE (test code = 2217) 88 MG/DL 70-99 BUN (test code = 2208) 14 MG/DL 8-23 CREATININE (test code = 2214) 0.67 MG/DL 0.60-1.30 eGFR (2020 CKD-EPI) (test code = 84411) 90 ML/MIN/1.73 >60 CALC BUN/CREAT (test code [...] code = 2219) 13 U/L 5-40 LIPID [id number] 04:20:58* Test Item Value Reference Range Interpretation [...] SPECIMENS. FOR MOREINFORMATION, SEE CLIENT ANNOUNCEMENT AT [email or web address] RATIO LDL/HDL (test code = 223) 1.87 RATIO <3.22 CBC W/AUTO DIFF WITH [id number] 03:50:36* Test Item Value Reference Range Interpretation [...] 0.00-0.10 ABS NUCLEATED RBCS (test code = 27974) 0.00 K/UL 0.00-0.11 [id number] 03:32:16* Test Item Value Reference Range Interpretation Comme nts MAGNESIUM (test code = 2226) 1.7 MG/DL 1.6-2.6 [facility] has impo rtant pathology staff changes effective 07/16/2022. New pathology staff will provide uninterrupted, excellent patient care and clinical consultation. See URL: [email or web address]. UNLESS OTHERWISE INDICATED, ALL TESTING PERFORMED AT [facility] [address] [place] [address] LICENSED MASSAGE THERAPIST: DIANELYS ANDERSON M.D. CLIA NUMBER [id number] [facility] [place]. [id number] COMPREHENSIVE METABOLIC [id number] 00:00:00* Test Item Value Reference Range Interpretation Comme nts GLUCOSE (test code = 2217) 88 MG/DL BUN (test code = 2208) 14 MG/DL CREATININE (test code = 2214) 0.67 MG/DL eGFR (2020 CKD-EPI) (test co de = 89221) 90 ML/MIN/1.73 CALC BUN/CREAT (test code = [...] code = 2219) 13 U/L Surendra WhiteLIPID [id number] 00:00:00* Test Item Value Reference Range Interpretation Comme nts CHOLESTEROL (test code = 2210) 168 MG/DL TRIGLYCERIDES (test code = 2232) 75 MG/DL HDL CHOLESTEROL (test code = 2220) 53 MG/DL CALC LDL CHOL (test code = 2237) 99 MG/DL RISK RATIO LDL/HDL (test cod e = 2238) 1.87 RATIO Surendra Vandana ChristopherCBC W/AUTO [id number] 00:00:00* Test Item Value Reference Range Interpretation [...] ABS NUCLEATED RBCS (test cod e = 82661) 0.00 K/UL Surendra WhiteTSH + FREE T4 [id number] 00:00:00* Test Item Value Reference Range Interpretation Comme nts TSH, THIRD GENERATION (test code = 2821) 2.440 UIU/ML FREE T4 (THYROXINE) (test co de = 2823) 1.61 NG/DL Surendra WhiteHEMOGLOBIN [id number] 00:00:00* Test Item Value Reference Range Interpretation Comme nts HEMOGLOBIN A1c (test code = 65995) 8.1 % Surendra [id number] 00:00:00* Test Item Value Reference Range Interpretation Comme nts MAGNESIUM (test code = 2226) 1.7 MG/DL Surendra WhiteVITAMIN D, 25 [id number] 00:00:00* Test Item Value Reference Range Interpretation Comme nts VITAMIN D, 25 [place] (test code = 4958) 49 NG/ML Surendra WhiteCOMPREHENSIVE METABOLIC [id number] 00:00:00* Test Item Value Reference Range Interpretation Comme nts GLUCOSE (test code = 2217) 88 MG/DL BUN (test code = 2208) 14 MG/DL CREATININE (test code = 2214) 0.67 MG/DL eGFR (2020 CKD-EPI) (test co de = 55338) 90 ML/MIN/1.73 CALC BUN/CREAT (test code = [...] (test code = 2219) 13 U/L Surendra Ross ChristopherLIPID [id number] 00:00:00* Test Item Value Reference Range Interpretation Comme nts CHOLESTEROL (test code = 2210) 168 MG/DL TRIGLYCERIDES (test code = 2232) 75 MG/DL HDL CHOLESTEROL (test code = 2220) 53 MG/DL CALC LDL CHOL (test code = 2237) 99 MG/DL RISK RATIO LDL/HDL (test cod e = 2238) 1.87 RATIO Surendra WhiteCBC W/AUTO [id number] 00:00:00* Test Item Value Reference Range Interpretation [...] ABS NUCLEATED RBCS (test cod e = 99493) 0.00 K/UL Surendra WhiteTSH + FREE T4 [id number] 00:00:00* Test Item Value Reference Range Interpretation Comme nts TSH, THIRD GENERATION (test code = 2821) 2.440 UIU/ML FREE T4 (THYROXINE) (test co de = 2823) 1.61 NG/DL Surendra WhiteHEMOGLOBIN [id number] 00:00:00* Test Item Value Reference Range Interpretation Comme nts HEMOGLOBIN A1c (test code = 49431) 8.1 % Surendra [id number] 00:00:00* Test Item Value Reference Range Interpretation Comme nts MAGNESIUM (test code = 2226) 1.7 MG/DL Surendra WhiteVITAMIN D, 25 [id number] 00:00:00* Test Item Value Reference Range Interpretation Comme nts VITAMIN D, 25 [place] (test code = 4958) 49 NG/ML Surendra WhiteCOMPREHENSIVE METABOLIC [id number] 00:00:00* Test Item Value Reference Range Interpretation Comme nts GLUCOSE (test code = 2217) 88 MG/DL BUN (test code = 2208) 14 MG/DL CREATININE (test code = 2214) 0.67 MG/DL eGFR (2020 CKD-EPI) (test co de = 40571) 90 ML/MIN/1.73 CALC BUN/CREAT (test code = [...] code = 2219) 13 U/L Surendra WhiteLIPID [id number] 00:00:00* Test Item Value Reference Range Interpretation Comme nts CHOLESTEROL (test code = 2210) 168 MG/DL TRIGLYCERIDES (test code = 2232) 75 MG/DL HDL CHOLESTEROL (test code = 2220) 53 MG/DL CALC LDL CHOL (test code = 2237) 99 MG/DL RISK RATIO LDL/HDL (test cod e = 2238) 1.87 RATIO Surendra WhiteCBC W/AUTO [id number] 00:00:00* Test Item Value Reference Range Interpretation [...] ABS NUCLEATED RBCS (test cod e = 34241) 0.00 K/UL Surendra WhiteTSH + FREE T4 [id number] 00:00:00* Test Item Value Reference Range Interpretation Comme nts TSH, THIRD GENERATION (test code = 2821) 2.440 UIU/ML FREE T4 (THYROXINE) (test co de = 2823) 1.61 NG/DL Surendra WhiteHEMOGLOBIN [id number] 00:00:00* Test Item Value Reference Range Interpretation Comme carmen HEMOGLOBIN A1c (test code = 18698) 8.1 % Surendra [id number] 00:00:00* Test Item Value Reference Range Interpretation Comme carmen MAGNESIUM (test code = 2226) 1.7 MG/DL Surendra WhiteVITAMIN D, 25 [id number] 00:00:00* Test Item Value Reference Range Interpretation Comme carmen VITAMIN D, 25 OH (test code = 4958) 49 NG/ML Surendra WhiteCOMPREHENSIVE METABOLIC [id number] 00:00:00* Test Item Value Reference Range Interpretation Comme nts GLUCOSE (test code = 2217) 88 MG/DL BUN (test code = 2208) 14 MG/DL CREATININE (test code = 2214) 0.67 MG/DL eGFR (2020 CKD-EPI) (test co de = 20601) 90 ML/MIN/1.73 CALC BUN/CREAT (test code = [...] code = 2219) 13 U/L Surendra WhiteLIPID [id number] 00:00:00* Test Item Value Reference Range Interpretation Comme nts CHOLESTEROL (test code = 2210) 168 MG/DL TRIGLYCERIDES (test code = 2232) 75 MG/DL HDL CHOLESTEROL (test code = 2220) 53 MG/DL CALC LDL CHOL (test code = 2237) 99 MG/DL RISK RATIO LDL/HDL (test cod e = 2238) 1.87 RATIO Surendra WhiteCBC W/AUTO [id number] 00:00:00* Test Item Value Reference Range Interpretation [...] ABS NUCLEATED RBCS (test cod e = 08965) 0.00 K/UL Surendra WhiteTSH + FREE T4 [id number] 00:00:00* Test Item Value Reference Range Interpretation Comme nts TSH, THIRD GENERATION (test code = 2821) 2.440 UIU/ML FREE T4 (THYROXINE) (test co de = 2823) 1.61 NG/DL Surendra WhiteHEMOGLOBIN [id number] 00:00:00* Test Item Value Reference Range Interpretation Comme carmen HEMOGLOBIN A1c (test code = 38868) 8.1 % Surendra [id number] 00:00:00* Test Item Value Reference Range Interpretation Comme nts MAGNESIUM (test code = 2226) 1.7 MG/DL Surendra WhiteVITAMIN D, 25 [id number] 00:00:00* Test Item Value Reference Range Interpretation Comme carmen VITAMIN D, 25 OH (test code = 4958) 49 NG/ML Surendra WhiteCOMPREHENSIVE METABOLIC [id number] 00:00:00* Test Item Value Reference Range Interpretation Comme nts GLUCOSE (test code = 2217) 88 MG/DL BUN (test code = 2208) 14 MG/DL CREATININE (test code = 2214) 0.67 MG/DL eGFR (2020 CKD-EPI) (test co de = 61647) 90 ML/MIN/1.73 CALC BUN/CREAT (test code = [...] code = 2219) 13 U/L Surendra WhiteLIPID [id number] 00:00:00* Test Item Value Reference Range Interpretation Comme nts CHOLESTEROL (test code = 2210) 168 MG/DL TRIGLYCERIDES (test code = 2232) 75 MG/DL HDL CHOLESTEROL (test code = 2220) 53 MG/DL CALC LDL CHOL (test code = 2237) 99 MG/DL RISK RATIO LDL/HDL (test cod e = 2238) 1.87 RATIO Surendra WhiteCBC W/AUTO [id number] 00:00:00* Test Item Value Reference Range Interpretation [...] ABS NUCLEATED RBCS (test cod e = 37540) 0.00 K/UL Surendra WhiteTSH + FREE T4 [id number] 00:00:00* Test Item Value Reference Range Interpretation Comme nts TSH, THIRD GENERATION (test code = 2821) 2.440 UIU/ML FREE T4 (THYROXINE) (test co de = 2823) 1.61 NG/DL Surendra WhiteHEMOGLOBIN [id number] 00:00:00* Test Item Value Reference Range Interpretation Comme carmen HEMOGLOBIN A1c (test code = 94096) 8.1 % Surendra [id number] 00:00:00* Test Item Value Reference Range Interpretation Comme nts MAGNESIUM (test code = 222) 1.7 MG/DL Surendra WhiteVITAMIN D, 25 [id number] 00:00:00* Test Item Value Reference Range Interpretation Comme nts VITAMIN D, 25 OH (test code = 4958) 49 NG/ML Surendra WhiteCOMPREHENSIVE METABOLIC [id number] 00:00:00* Test Item Value Reference Range Interpretation Comme nts GLUCOSE (test code = 2217) 88 MG/DL BUN (test code = 2208) 14 MG/DL CREATININE (test code = 2214) 0.67 MG/DL eGFR (2020 CKD-EPI) (test co de = 41956) 90 ML/MIN/1.73 CALC BUN/CREAT (test code = [...] code = 2219) 13 U/L Surendra WhiteLIPID [id number] 00:00:00* Test Item Value Reference Range Interpretation Comme nts CHOLESTEROL (test code = 2210) 168 MG/DL TRIGLYCERIDES (test code = 2232) 75 MG/DL HDL CHOLESTEROL (test code = 2220) 53 MG/DL CALC LDL CHOL (test code = 2237) 99 MG/DL RISK RATIO LDL/HDL (test cod e = 2238) 1.87 RATIO Surendra WhiteCBC W/AUTO [id number] 00:00:00* Test Item Value Reference Range Interpretation [...] ABS NUCLEATED RBCS (test cod e = 84162) 0.00 K/UL Surendra WhiteTSH + FREE T4 [id number] 00:00:00* Test Item Value Reference Range Interpretation Comme nts TSH, THIRD GENERATION (test code = 2821) 2.440 UIU/ML FREE T4 (THYROXINE) (test co de = 2823) 1.61 NG/DL Surendra WhiteHEMOGLOBIN [id number] 00:00:00* Test Item Value Reference Range Interpretation Comme nts HEMOGLOBIN A1c (test code = 99113) 8.1 % Surendra [id number] 00:00:00* Test Item Value Reference Range Interpretation Comme nts MAGNESIUM (test code = 2226) 1.7 MG/DL Surendra WhiteVITAMIN D, 25 [id number] 00:00:00* Test Item Value Reference Range Interpretation Comme nts VITAMIN D, 25 OH (test code = 4958) 49 NG/ML Surendra WhiteCOMPREHENSIVE METABOLIC [id number] 00:00:00* Test Item Value Reference Range Interpretation Comme nts GLUCOSE (test code = 2217) 88 MG/DL BUN (test code = 2208) 14 MG/DL CREATININE (test code = 2214) 0.67 MG/DL eGFR (2020 CKD-EPI) (test co de = 96044) 90 ML/MIN/1.73 CALC BUN/CREAT (test code = [...] code = 2219) 13 U/L Surendra WhiteLIPID [id number] 00:00:00* Test Item Value Reference Range Interpretation Comme nts CHOLESTEROL (test code = 2210) 168 MG/DL TRIGLYCERIDES (test code = 2232) 75 MG/DL HDL CHOLESTEROL (test code = 2220) 53 MG/DL CALC LDL CHOL (test code = 2237) 99 MG/DL RISK RATIO LDL/HDL (test cod e = 2238) 1.87 RATIO Surendra WhiteCBC W/AUTO [id number] 00:00:00* Test Item Value Reference Range Interpretation [...] ABS NUCLEATED RBCS (test cod e = 35666) 0.00 K/UL Surendra Ross ChristopherTSH + FREE T4 [id number] 00:00:00* Test Item Value Reference Range Interpretation Comme nts TSH, THIRD GENERATION (test code = 2821) 2.440 UIU/ML FREE T4 (THYROXINE) (test co de = 2823) 1.61 NG/DL Surendra Ross ChristopherHEMOGLOBIN [id number] 00:00:00* Test Item Value Reference Range Interpretation Comme nts HEMOGLOBIN A1c (test code = 78685) 8.1 % Surendra Ross [id number] 00:00:00* Test Item Value Reference Range Interpretation Comme nts MAGNESIUM (test code = 2226) 1.7 MG/DL Surendra Vandana ChristopherVITAMIN D, 25 [id number] 00:00:00* Test Item Value Reference Range Interpretation Comme nts VITAMIN D, 25 OH (test code = 4958) 49 NG/ML Surendra WhiteCOMPREHENSIVE METABOLIC [id number] 00:00:00* Test Item Value Reference Range Interpretation Comme nts GLUCOSE (test code = 2217) 88 MG/DL BUN (test code = 2208) 14 MG/DL CREATININE (test code = 2214) 0.67 MG/DL eGFR (2020 CKD-EPI) (test co de = 90305) 90 ML/MIN/1.73 CALC BUN/CREAT (test code = [...] code = 2219) 13 U/L Surendra WhiteLIPID [id number] 00:00:00* Test Item Value Reference Range Interpretation Comme nts CHOLESTEROL (test code = 2210) 168 MG/DL TRIGLYCERIDES (test code = 2232) 75 MG/DL HDL CHOLESTEROL (test code = 2220) 53 MG/DL CALC LDL CHOL (test code = 2237) 99 MG/DL RISK RATIO LDL/HDL (test cod e = 2238) 1.87 RATIO Surendra WhiteCBC W/AUTO [id number] 00:00:00* Test Item Value Reference Range Interpretation [...] ABS NUCLEATED RBCS (test cod e = 98405) 0.00 K/UL Surendra WhiteTSH + FREE T4 [id number] 00:00:00* Test Item Value Reference Range Interpretation Comme nts TSH, THIRD GENERATION (test code = 2821) 2.440 UIU/ML FREE T4 (THYROXINE) (test co de = 2823) 1.61 NG/DL Surendra WhiteHEMOGLOBIN [id number] 00:00:00* Test Item Value Reference Range Interpretation Comme nts HEMOGLOBIN A1c (test code = 27298) 8.1 % Surendra [id number] 00:00:00* Test Item Value Reference Range Interpretation Comme nts MAGNESIUM (test code = 2226) 1.7 MG/DL Surendra WhiteVITAMIN D, 25 [id number] 00:00:00* Test Item Value Reference Range Interpretation Comme nts VITAMIN D, 25 OH (test code = 4958) 49 NG/ML Surendra WhiteCULTURE, [id number] 12:56:48SPECIMEN NUMBER: [id number] CULTURE, URINE SPECIMEN NUMBER: [id number] SPECIMEN COMMENT: URINE SOURCE: URINE REPORT STATUS: FINAL FINAL REPORT: 08/07/2022 >100,000 CFU/ML UROGENITAL R[place] PRESENT NOCOMMON PATHOGENS [facility] has important pathology staff changes effective 07/16/2022. New pathology staff will provide uninterrupted, excellent patient care and clinical consultation. See URL: [email or web address]. UNLESS OTHERWISE INDICATED, ALL TESTING PERFORMED AT [facility]. [address] [place] [address] LICENSED MASSAGE THERAPIST: DIANELYS ANDERSON M.D. CLIA NUMBER [id number] [facility] [place]. [id number], [id number] 00:00:00* Test Item Value Reference Range Interpretation Comme nts CULTURE, URINE (test code = 11168) SPECIMEN NUMBER: [id number] Surendra Knowles, [id number] 00:00:00* Test Item Value Reference Range Interpretation Comme nts CULTURE, URINE (test code = 74171) SPECIMEN NUMBER: [id number] Surendra Knowles, [id number] 00:00:00* Test Item Value Reference Range Interpretation Comme nts CULTURE, URINE (test code = 62871) SPECIMEN NUMBER: [id number] Surendra SilveiraLTMARCELLO, [id number] 00:00:00* Test Item Value Reference Range Interpretation Comme nts CULTURE, URINE (test code = 56757) SPECIMEN NUMBER: [id number] Surendra Knowles, [id number] 00:00:00* Test Item Value Reference Range Interpretation Comme nts CULTURE, URINE (test code = 79765) SPECIMEN NUMBER: [id number] Surendra SilveiraLTMARCELLO, [id number] 00:00:00* Test Item Value Reference Range Interpretation Comme nts CULTURE, URINE (test code = 37165) SPECIMEN NUMBER: [id number] Surendra SilveiraLTMARCELLO, [id number] 00:00:00* Test Item Value Reference Range Interpretation Comme nts CULTURE, URINE (test code = 67499) SPECIMEN NUMBER: [id number] Surendra Knowles, [id number] 00:00:00* Test Item Value Reference Range Interpretation Comme nts CULTURE, URINE (test code = 36831) SPECIMEN NUMBER: [id number] Surendra SilveiraLTMARCELLO, [id number] 00:00:00* Test Item Value Reference Range Interpretation Comme nts CULTURE, URINE (test code = 80324) SPECIMEN NUMBER: [id number] Surendra Knowles, [id number] 00:00:00* Test Item Value Reference Range Interpretation Comme nts CULTURE, URINE (test code = 35527) SPECIMEN NUMBER: [id number] Surendra SilveiraLTMARCELLO, [id number] 00:00:00* Test Item Value Reference Range Interpretation Comme nts CULTURE, URINE (test code = 09584) SPECIMEN NUMBER: [id number] Surendra Knowles, [id number] 00:00:00* Test Item Value Reference Range Interpretation Comme nts CULTURE, URINE (test code = 50900) SPECIMEN NUMBER: [id number] Surendra Knowles, [id number] 00:00:00* Test Item Value Reference Range Interpretation Comme nts CULTURE, URINE (test code = 38762) SPECIMEN NUMBER: [id number] Surendra SilveiraLTMARCELLO, [id number] 00:00:00* Test Item Value Reference Range Interpretation Comme nts CULTURE, URINE (test code = 73041) SPECIMEN NUMBER: [id number] Surendra SilveiraLTMARCELLO, [id number] 00:00:00* Test Item Value Reference Range Interpretation Comme nts CULTURE, URINE (test code = 94586) SPECIMEN NUMBER: [id number] Surendra SilveiraLTMARCELLO, [id number] 00:00:00* Test Item Value Reference Range Interpretation Comme nts CULTURE, URINE (test code = 71636) SPECIMEN NUMBER: [id number] Surendra Ross AustinHEMOGLOBIN [id number] 00:00:00* Test Item Value Reference Range Interpretation Comme nts HEMOGLOBIN A1c (test code = 20132) 8.9 % Surendra Ross AustinHEMOGLOBIN [id number] 00:00:00* Test Item Value Reference Range Interpretation Comme nts HEMOGLOBIN A1c (test code = 67558) 8.9 % Surendra Ross AustinHEMOGLOBIN [id number] 00:00:00* Test Item Value Reference Range Interpretation Comme nts HEMOGLOBIN A1c (test code = 57202) 8.9 % Surendra WhiteHEMOGLOBIN [id number] 00:00:00* Test Item Value Reference Range Interpretation Comme nts HEMOGLOBIN A1c (test code = 31434) 8.9 % Surendra WhiteHEMOGLOBIN [id number] 00:00:00* Test Item Value Reference Range Interpretation Comme nts HEMOGLOBIN A1c (test code = 86248) 8.9 % Surendra Ross AustinHEMOGLOBIN [id number] 00:00:00* Test Item Value Reference Range Interpretation Comme nts HEMOGLOBIN A1c (test code = 78781) 8.9 % Surendra WhiteHEMOGLOBIN [id number] 00:00:00* Test Item Value Reference Range Interpretation Comme nts HEMOGLOBIN A1c (test code = 74233) 8.9 % Surendra WhiteHEMOGLOBIN [id number] 00:00:00* Test Item Value Reference Range Interpretation Comme nts HEMOGLOBIN A1c (test code = 67152) 8.9 % Surendra WhiteTSH, THIRD [id number] 03:54:20* Test Item Value Reference Range Interpretation Comme carmen TSH, THIRD GENERATION (test code = 2821) 2.700 UIU/ML 0.400-4.100 UNLESS OTHERWISE INDICATED, ALL TESTING PERFORMED [facility] [employer] [address] [place] [address] LICENSED MASSAGE THERAPIST: JANUSZ JJ M.D. CLIA NUMBER [id number] [facility] [place]. [id number] HEMOGLOBIN [id number] 03:14:04* Test Item Value Reference Range Interpretation Comme carmen HEMOGLOBIN A1c (test code = 96518) 9.3 % 4.2-5.6 H CITIZEN [place] [employer] GUIDELINES FOR HGB A1C: [...] OR LABORATORY CONSULTATION. CBC W/AUTO DIFF WITH [id number] 02:43:09* Test Item Value Reference Range Interpretation [...] 0.00-0.10 ABS NUCLEATED RBCS (test code = 73218) 0.00 K/UL 0.00-0.11 COMPREHENSIVE METABOLIC [id number] 02:34:07* Test Item Value Reference Range Interpretation [...] code = 2206) 0.4 MG/DL See_Comment [Automated [employer] [facility]] The system which generated this result transmitted reference range: <=1.2. The reference range was not used to interpret this result as normal/abnormal. ALKALINE PHOSPHATASE (test code = 2203) 55 U/L 40-142 AST (test code = 2217) 17 U/L 9-40 ALT (test code = 2218) 14 U/L 5-40 HEPATIC FUNCTION [id number] 02:34:07* Test Item Value Reference Range Interpretation Comme nts PROTEIN, TOTAL (test code = 2228) 7.1 G/DL 6.1-8.3 ALBUMIN (test code = 2200) 4.5 G/DL 3.5-5.2 BILIRUBIN, TOTAL (test code = 2206) 0.4 MG/DL See_Comment [Automated [employer]] The system which generated this result [...] Comme nts HEMOGLOBIN A1c (test code = 40938) 9.3 % Surendra WhiteCOMPREHENSIVE METABOLIC PANEL [ADDED]2021-10-24 00:00:00* Test Item Value Reference Range Interpretation Comme nts GLUCOSE (test code = 2216) 119 MG/DL BUN (test code = 2208) 15 MG/DL CREATININE (test code = 2214) 0.93 MG/DL eGFR (2020 CKD-EPI) (test co de = 71941) 64 ML/MIN/1.73 CALC BUN/CREAT (test code = [...] ABS NUCLEATED RBCS (test cod e = 85282) 0.00 K/UL Surendra WhiteHEPATIC FUNCTION PANEL [ADDED]2021-10-24 [...] Comme nts HEMOGLOBIN A1c (test code = 21623) 9.3 % Surendra WhiteCOMPREHENSIVE METABOLIC PANEL [ADDED]2021-10-24 00:00:00* Test Item Value Reference Range Interpretation Comme nts GLUCOSE (test code = 2217) 119 MG/DL BUN (test code = 2208) 15 MG/DL CREATININE (test code = 2214) 0.93 MG/DL eGFR (2020 CKD-EPI) (test co de = 99180) 64 ML/MIN/1.73 CALC BUN/CREAT (test code = [...] (test code = 2219) 14 U/L Surendra WhiteAye W/AUTO DIFF WITH PLATELETS [ADDED]2021-10-24 00:00:00* Test [...] ABS NUCLEATED RBCS (test cod e = 72554) 0.00 K/UL Surendra Vandana ChristopherHEPATIC FUNCTION PANEL [...] Comme nts HEMOGLOBIN A1c (test code = 35751) 9.3 % Surendra WhiteCOMPREHENSIVE METABOLIC PANEL [ADDED]2021-10-24 00:00:00* Test Item Value Reference Range Interpretation Comme nts GLUCOSE (test code = 2217) 119 MG/DL BUN (test code = 2208) 15 MG/DL CREATININE (test code = 2214) 0.93 MG/DL eGFR (2020 CKD-EPI) (test co de = 91201) 64 ML/MIN/1.73 CALC BUN/CREAT (test code = [...] (test code = 2219) 14 U/L [facility] DIFF WITH PLATELETS [ADDED]2021-10-24 00:00:00* Test [...] ABS NUCLEATED RBCS (test cod e = 19936) 0.00 K/UL Surendra Ross ChristopherHEPATIC FUNCTION PANEL [ADDED]2021-10-24 00:00:00* Test Item Value Reference Range Interpretation Comme nts PROTEIN, TOTAL (test code = 2229) 7.1 G/DL ALBUMIN (test code = 2201) 4.5 G/DL BILIRUBIN, TOTAL (test code = 220) 0.4 MG/DL BILIRUBIN, DIRECT (test code = [...] Comme carmen HEMOGLOBIN A1c (test code = 65269) 9.3 % Surendra Ross ChristopherCOMPREHENSIVE METABOLIC PANEL [ADDED]2021-10-24 00:00:00* Test Item Value Reference Range Interpretation Comme nts GLUCOSE (test code = 2217) 119 MG/DL BUN (test code = 2208) 15 MG/DL CREATININE (test code = 2214) 0.93 MG/DL eGFR (2020 CKD-EPI) (test co de = 96515) 64 ML/MIN/1.73 CALC BUN/CREAT (test code = [...] ABS NUCLEATED RBCS (test cod e = 38646) 0.00 K/UL Surendra WhiteHEPATIC FUNCTION PANEL [ADDED]2021-10-24 [...] Comme carmen HEMOGLOBIN A1c (test code = 95835) 9.3 % Surendra WhiteCOMPREHENSIVE METABOLIC PANEL [ADDED]2021-10-24 00:00:00* Test Item Value Reference Range Interpretation Comme nts GLUCOSE (test code = 2217) 119 MG/DL BUN (test code = 2208) 15 MG/DL CREATININE (test code = 2214) 0.93 MG/DL eGFR (2020 CKD-EPI) (test co de = 83754) 64 ML/MIN/1.73 CALC BUN/CREAT (test code = [...] ABS NUCLEATED RBCS (test cod e = 39100) 0.00 K/UL Surendra WhiteHEPATIC FUNCTION PANEL [ADDED]2021-10-24 [...] Comme nts HEMOGLOBIN A1c (test code = 12625) 9.3 % Surendra WhiteCOMPREHENSIVE METABOLIC PANEL [ADDED]2021-10-24 00:00:00* Test Item Value Reference Range Interpretation Comme nts GLUCOSE (test code = 2217) 119 MG/DL BUN (test code = 2208) 15 MG/DL CREATININE (test code = 2214) 0.93 MG/DL eGFR (2020 CKD-EPI) (test co de = 66291) 64 ML/MIN/1.73 CALC BUN/CREAT (test code = [...] ABS NUCLEATED RBCS (test cod e = 84745) 0.00 K/UL Surendra WhiteHEPATIC FUNCTION PANEL [ADDED]2021-10-24 [...] Comme nts HEMOGLOBIN A1c (test code = 16422) 9.3 % Surendra WhiteCOMPREHENSIVE METABOLIC PANEL [ADDED]2021-10-24 00:00:00* Test Item Value Reference Range Interpretation Comme nts GLUCOSE (test code = 2217) 119 MG/DL BUN (test code = 2208) 15 MG/DL CREATININE (test code = 2214) 0.93 MG/DL eGFR (2020 CKD-EPI) (test co de = 64084) 64 ML/MIN/1.73 CALC BUN/CREAT (test code = [...] (test code = 2219) 14 U/L [facility]/AUTO DIFF WITH PLATELETS [ADDED]2021-10-24 00:00:00* Test [...] ABS NUCLEATED RBCS (test cod e = 54381) 0.00 K/UL Surendra Ross ChristopherHEPATIC FUNCTION PANEL [...] Comme nts HEMOGLOBIN A1c (test code = 24368) 9.3 % Surendra Ross ChristopherCOMPREHENSIVE METABOLIC PANEL [ADDED]2021-10-24 00:00:00* Test Item Value Reference Range Interpretation Comme nts GLUCOSE (test code = 2217) 119 MG/DL BUN (test code = 2208) 15 MG/DL CREATININE (test code = 2214) 0.93 MG/DL eGFR (2020 CKD-EPI) (test co de = 17401) 64 ML/MIN/1.73 CALC BUN/CREAT (test code = [...] ABS NUCLEATED RBCS (test cod e = 75554) 0.00 K/UL Surendra WhiteHEPATIC FUNCTION PANEL [ADDED]2021-10-24 [...] Comme nts HEMOGLOBIN A1c (test code = 73508) 9.3 % COMPREHENSIVE METABOLIC PANEL [ADDED]2021-10-24 00:00:00* Test Item Value Reference Range Interpretation Comme nts GLUCOSE (test code = 2217) 119 MG/DL BUN (test code = 2208) 15 MG/DL CREATININE (test code = 2214) 0.93 MG/DL eGFR (2020 CKD-EPI) (test co de = 64320) 64 ML/MIN/1.73 CALC BUN/CREAT (test code = [...] ABS NUCLEATED RBCS (test cod e = 33748) 0.00 K/UL HEPATIC FUNCTION PANEL [ADDED]2021-10-24 00:00:00* [...] Comme nts HEMOGLOBIN A1c (test code = 41832) 9.3 % COMPREHENSIVE METABOLIC PANEL [ADDED]2021-10-24 00:00:00* Test Item Value Reference Range Interpretation Comme nts GLUCOSE (test code = 2217) 119 MG/DL BUN (test code = 2208) 15 MG/DL CREATININE (test code = 2214) 0.93 MG/DL eGFR (2020 CKD-EPI) (test co de = 49952) 64 ML/MIN/1.73 CALC BUN/CREAT (test code = [...] ABS NUCLEATED RBCS (test cod e = 74747) 0.00 K/UL HEPATIC FUNCTION PANEL [ADDED]2021-10-24 00:00:00* [...] Comme nts HEMOGLOBIN A1c (test code = 22868) 9.3 % COMPREHENSIVE METABOLIC PANEL [ADDED]2021-10-24 00:00:00* Test Item Value Reference Range Interpretation Comme nts GLUCOSE (test code = 2217) 119 MG/DL BUN (test code = 2208) 15 MG/DL CREATININE (test code = 2214) 0.93 MG/DL eGFR (2020 CKD-EPI) (test co de = 77003) 64 ML/MIN/1.73 CALC BUN/CREAT (test code = [...] ABS NUCLEATED RBCS (test cod e = 10418) 0.00 K/UL HEPATIC FUNCTION PANEL [ADDED]2021-10-24 00:00:00* [...] Comme nts HEMOGLOBIN A1c (test code = 67223) 9.3 % COMPREHENSIVE METABOLIC PANEL [ADDED]2021-10-24 00:00:00* Test Item Value Reference Range Interpretation Comme nts GLUCOSE (test code = 2217) 119 MG/DL BUN (test code = 2208) 15 MG/DL CREATININE (test code = 2214) 0.93 MG/DL eGFR (2020 CKD-EPI) (test co de = 33890) 64 ML/MIN/1.73 CALC BUN/CREAT (test code = [...] ABS NUCLEATED RBCS (test cod e = 90067) 0.00 K/UL HEPATIC FUNCTION PANEL [ADDED]2021-10-24 00:00:00* [...] = 2821) 2.700 UIU/ML URINE CULTURE, NO [id number] 11:52:08SPECIMEN NUMBER: [id number] URINE CULTURE, NO SENS SPECIMEN NUMBER: [id number] SPECIMEN COMMENT: URINE SOURCE: URINE REPORT STATUS: [...] MCG/ML. UNLESS OTHERWISE INDICATED, ALL TESTING PERFORMED [facility] [employer], [facility]. [address] [place] [address] LICENSED MASSAGE THERAPIST: JANUSZ JJ M.D. [place] NUMBER [id number] [facility] [place]. [id number] URINE CULTURE, NO [id number] 00:00:00* Test Item Value Reference Range Interpretation Comme nts URINE CULTURE, NO SENS (test code = 15093) SPECIMEN NUMBER: [id number] Surendra Guardado CULTURE, NO [id number] 00:00:00* Test Item Value Reference Range Interpretation Comme nts URINE CULTURE, NO SENS (test code = 04839) SPECIMEN NUMBER: [id number] Surendra WhiteURINE CULTURE, NO [id number] 00:00:00* Test Item Value Reference Range Interpretation Comme nts URINE CULTURE, NO SENS (test code = 19764) SPECIMEN NUMBER: [id number] Surendra WhiteURINE CULTURE, NO [id number] 00:00:00* Test Item Value Reference Range Interpretation Comme nts URINE CULTURE, NO SENS (test code = 07620) SPECIMEN NUMBER: [id number] Surendra WhiteURINE CULTURE, NO [id number] 00:00:00* Test Item Value Reference Range Interpretation Comme nts URINE CULTURE, NO SENS (test code = 76849) SPECIMEN NUMBER: [id number] Surendra F AustinURINE CULTURE, NO [id number] 00:00:00* Test Item Value Reference Range Interpretation Comme nts URINE CULTURE, NO SENS (test code = 99149) SPECIMEN NUMBER: [id number] Surendra WhiteURINE CULTURE, NO [id number] 00:00:00* Test Item Value Reference Range Interpretation Comme nts URINE CULTURE, NO SENS (test code = 27590) SPECIMEN NUMBER: [id number] Surendra WhiteURINE CULTURE, NO [id number] 00:00:00* Test Item Value Reference Range Interpretation Comme nts URINE CULTURE, NO SENS (test code = 18672) SPECIMEN NUMBER: [id number] Surendra WhiteURINE CULTURE, NO [id number] 00:00:00* Test Item Value Reference Range Interpretation Comme nts URINE CULTURE, NO SENS (test code = 98710) SPECIMEN NUMBER: [id number] URINE CULTURE, NO [id number] 00:00:00* Test Item Value Reference Range Interpretation Comme nts URINE CULTURE, NO SENS (test code = 76137) SPECIMEN NUMBER: [id number] URINE CULTURE, NO [id number] 00:00:00* Test Item Value Reference Range Interpretation Comme nts URINE CULTURE, NO SENS (test code = 42771) SPECIMEN NUMBER: [id number] URINE CULTURE, NO [id number] 00:00:00* Test Item Value Reference Range Interpretation Comme nts URINE CULTURE, NO SENS (test code = 13526) SPECIMEN NUMBER: [id number] CULTURE, [id number] 00:00:00* Test Item Value Reference Range Interpretation Comme nts CULTURE, URINE (test code = 64040) SPECIMEN NUMBER: [id number] Surendra WhiteCULTURE, [id number] 00:00:00* Test Item Value Reference Range Interpretation Comme nts CULTURE, URINE (test code = 16481) SPECIMEN NUMBER: [id number] Surendra WhiteCULTURE, [id number] 00:00:00* Test Item Value Reference Range Interpretation Comme nts CULTURE, URINE (test code = 10135) SPECIMEN NUMBER: [id number] Surendra WhiteCULTURE, [id number] 00:00:00* Test Item Value Reference Range Interpretation Comme nts CULTURE, URINE (test code = 94373) SPECIMEN NUMBER: [id number] Surendra WhiteCULTURE, [id number] 00:00:00* Test Item Value Reference Range Interpretation Comme nts CULTURE, URINE (test code = 48783) SPECIMEN NUMBER: [id number] Surendra SilveiraLTMARCELLO, [id number] 00:00:00* Test Item Value Reference Range Interpretation Comme nts CULTURE, URINE (test code = 59058) SPECIMEN NUMBER: [id number] Surendra SilveiraLTURE, [id number] 00:00:00* Test Item Value Reference Range Interpretation Comme nts CULTURE, URINE (test code = 05595) SPECIMEN NUMBER: [id number] Surendra SilveiraLTMARCELLO, [id number] 00:00:00* Test Item Value Reference Range Interpretation Comme nts CULTURE, URINE (test code = 84998) SPECIMEN NUMBER: [id number] Surendra SilveiraLTMARCELLO, [id number] 00:00:00* Test Item Value Reference Range Interpretation Comme nts CULTURE, URINE (test code = 98323) SPECIMEN NUMBER: [id number] CULTURE, [id number] 00:00:00* Test Item Value Reference Range Interpretation Comme nts CULTURE, URINE (test code = 47372) SPECIMEN NUMBER: [id number] CULTURE, [id number] 00:00:00* Test Item Value Reference Range Interpretation Comme nts CULTURE, URINE (test code = 29902) SPECIMEN NUMBER: [id number] CULTURE, [id number] 00:00:00* Test Item Value Reference Range Interpretation Comme nts CULTURE, URINE (test code = 57556) SPECIMEN NUMBER: [id number] LIPID [id number] 00:00:00* Test Item Value Reference Range Interpretation Comme nts CHOLESTEROL (test code = 2210) 178 MG/DL TRIGLYCERIDES (test code = 2232) 154 MG/DL HDL CHOLESTEROL (test code = 2220) 52 MG/DL CALC LDL CHOL (test code = 2237) 100 MG/DL RISK RATIO LDL/HDL (test cod e = 2238) 1.92 RATIO Surendra WhiteCOMPREHENSIVE METABOLIC [id number] 00:00:00* Test Item Value Reference Range Interpretation Comme nts GLUCOSE (test code = 2217) 140 MG/DL BUN (test code = 2208) 24 MG/DL CREATININE (test code = 2214) 0.92 MG/DL eGFR AMER. (test cod e = 75145) 71 ML/MIN/1.73 eGFR NON- AMER. (test code = 14646) 61 ML/MIN/1.73 CALC BUN/CREAT (test code = [...] code = 2219) 20 U/L Surendra WhiteHEMOGLOBIN [id number] 00:00:00* Test Item Value Reference Range Interpretation Comme nts HEMOGLOBIN A1c (test code = 28271) 9.2 % Surendra WhiteLIPID [id number] 00:00:00* Test Item Value Reference Range Interpretation Comme nts CHOLESTEROL (test code = 2210) 178 MG/DL TRIGLYCERIDES (test code = 2232) 154 MG/DL HDL CHOLESTEROL (test code = 2220) 52 MG/DL CALC LDL CHOL (test code = 2237) 100 MG/DL RISK RATIO LDL/HDL (test cod e = 2238) 1.92 RATIO Surendra WhiteCOMPREHENSIVE METABOLIC [id number] 00:00:00* Test Item Value Reference Range Interpretation Comme nts GLUCOSE (test code = 2217) 140 MG/DL BUN (test code = 2208) 24 MG/DL CREATININE (test code = 2214) 0.92 MG/DL eGFR AMER. (test cod e = 94474) 71 ML/MIN/1.73 eGFR NON- AMER. (test code = 84954) 61 ML/MIN/1.73 CALC BUN/CREAT (test code = [...] code = 2219) 20 U/L Surendra WhiteHEMOGLOBIN [id number] 00:00:00* Test Item Value Reference Range Interpretation Comme nts HEMOGLOBIN A1c (test code = 86000) 9.2 % Surendra WhiteLIPID [id number] 00:00:00* Test Item Value Reference Range Interpretation Comme nts CHOLESTEROL (test code = 2210) 178 MG/DL TRIGLYCERIDES (test code = 2232) 154 MG/DL HDL CHOLESTEROL (test code = 2220) 52 MG/DL CALC LDL CHOL (test code = 2237) 100 MG/DL RISK RATIO LDL/HDL (test cod e = 2238) 1.92 RATIO Surendra WhiteCOMPREHENSIVE METABOLIC [id number] 00:00:00* Test Item Value Reference Range Interpretation Comme nts GLUCOSE (test code = 2217) 140 MG/DL BUN (test code = 2208) 24 MG/DL CREATININE (test code = 2214) 0.92 MG/DL eGFR AMER. (test cod e = 56174) 71 ML/MIN/1.73 eGFR NON- AMER. (test code = 49881) 61 ML/MIN/1.73 CALC BUN/CREAT (test code = [...] code = 2219) 20 U/L Surendra WhiteHEMOGLOBIN [id number] 00:00:00* Test Item Value Reference Range Interpretation Comme nts HEMOGLOBIN A1c (test code = 84255) 9.2 % Surendra WhiteLIPID [id number] 00:00:00* Test Item Value Reference Range Interpretation Comme nts CHOLESTEROL (test code = 2210) 178 MG/DL TRIGLYCERIDES (test code = 2232) 154 MG/DL HDL CHOLESTEROL (test code = 2220) 52 MG/DL CALC LDL CHOL (test code = 2237) 100 MG/DL RISK RATIO LDL/HDL (test cod e = 2238) 1.92 RATIO Surendra WhiteCOMPREHENSIVE METABOLIC [id number] 00:00:00* Test Item Value Reference Range Interpretation Comme nts GLUCOSE (test code = 2217) 140 MG/DL BUN (test code = 2208) 24 MG/DL CREATININE (test code = 2214) 0.92 MG/DL eGFR AMER. (test cod e = 36640) 71 ML/MIN/1.73 eGFR NON- AMER. (test code = 95838) 61 ML/MIN/1.73 CALC BUN/CREAT (test code = [...] code = 2219) 20 U/L Surendra WhiteHEMOGLOBIN [id number] 00:00:00* Test Item Value Reference Range Interpretation Comme nts HEMOGLOBIN A1c (test code = 93165) 9.2 % Surendra WhiteLIPID [id number] 00:00:00* Test Item Value Reference Range Interpretation Comme nts CHOLESTEROL (test code = 2210) 178 MG/DL TRIGLYCERIDES (test code = 2232) 154 MG/DL HDL CHOLESTEROL (test code = 2220) 52 MG/DL CALC LDL CHOL (test code = 2237) 100 MG/DL RISK RATIO LDL/HDL (test cod e = 2238) 1.92 RATIO Surendra WhiteCOMPREHENSIVE METABOLIC [id number] 00:00:00* Test Item Value Reference Range Interpretation Comme nts GLUCOSE (test code = 2217) 140 MG/DL BUN (test code = 2208) 24 MG/DL CREATININE (test code = 2214) 0.92 MG/DL eGFR AMER. (test cod e = 78683) 71 ML/MIN/1.73 eGFR NON- AMER. (test code = 77739) 61 ML/MIN/1.73 CALC BUN/CREAT (test code = [...] code = 2219) 20 U/L Surendra WhiteHEMOGLOBIN [id number] 00:00:00* Test Item Value Reference Range Interpretation Comme carmen HEMOGLOBIN A1c (test code = 42115) 9.2 % Surendra WhiteLIPID [id number] 00:00:00* Test Item Value Reference Range Interpretation Comme nts CHOLESTEROL (test code = 2210) 178 MG/DL TRIGLYCERIDES (test code = 2232) 154 MG/DL HDL CHOLESTEROL (test code = 2220) 52 MG/DL CALC LDL CHOL (test code = 2237) 100 MG/DL RISK RATIO LDL/HDL (test cod e = 2238) 1.92 RATIO Surendra WhiteCOMPREHENSIVE METABOLIC [id number] 00:00:00* Test Item Value Reference Range Interpretation Comme nts GLUCOSE (test code = 2217) 140 MG/DL BUN (test code = 2208) 24 MG/DL CREATININE (test code = 2214) 0.92 MG/DL eGFR AMER. (test cod e = 01667) 71 ML/MIN/1.73 eGFR NON- AMER. (test code = 26424) 61 ML/MIN/1.73 CALC BUN/CREAT (test code = [...] code = 2219) 20 U/L Surendra WhiteHEMOGLOBIN [id number] 00:00:00* Test Item Value Reference Range Interpretation Comme carmen HEMOGLOBIN A1c (test code = 07078) 9.2 % Surendra Ross AustinLIPID [id number] 00:00:00* Test Item Value Reference Range Interpretation Comme nts CHOLESTEROL (test code = 2210) 178 MG/DL TRIGLYCERIDES (test code = 2232) 154 MG/DL HDL CHOLESTEROL (test code = 2220) 52 MG/DL CALC LDL CHOL (test code = 2237) 100 MG/DL RISK RATIO LDL/HDL (test cod e = 2238) 1.92 RATIO Surendra WhiteCOMPREHENSIVE METABOLIC [id number] 00:00:00* Test Item Value Reference Range Interpretation Comme nts GLUCOSE (test code = 2217) 140 MG/DL BUN (test code = 2208) 24 MG/DL CREATININE (test code = 2214) 0.92 MG/DL eGFR AMER. (test cod e = 18323) 71 ML/MIN/1.73 eGFR NON- AMER. (test code = 15413) 61 ML/MIN/1.73 CALC BUN/CREAT (test code = [...] code = 2219) 20 U/L Surendra WhiteHEMOGLOBIN [id number] 00:00:00* Test Item Value Reference Range Interpretation Comme nts HEMOGLOBIN A1c (test code = 02504) 9.2 % Surendra Ross AustinLIPID [id number] 00:00:00* Test Item Value Reference Range Interpretation Comme nts CHOLESTEROL (test code = 2210) 178 MG/DL TRIGLYCERIDES (test code = 2232) 154 MG/DL HDL CHOLESTEROL (test code = 2220) 52 MG/DL CALC LDL CHOL (test code = 2237) 100 MG/DL RISK RATIO LDL/HDL (test cod e = 2238) 1.92 RATIO Surendra WhiteCOMPREHENSIVE METABOLIC [id number] 00:00:00* Test Item Value Reference Range Interpretation Comme nts GLUCOSE (test code = 2217) 140 MG/DL BUN (test code = 2208) 24 MG/DL CREATININE (test code = 2214) 0.92 MG/DL eGFR AMER. (test cod e = 63158) 71 ML/MIN/1.73 eGFR NON- AMER. (test code = 27739) 61 ML/MIN/1.73 CALC BUN/CREAT (test code = [...] code = 2219) 20 U/L Surendra WhiteHEMOGLOBIN [id number] 00:00:00* Test Item Value Reference Range Interpretation Comme nts HEMOGLOBIN A1c (test code = 75611) 9.2 % LIPID [id number] 00:00:00* Test Item Value Reference Range Interpretation Comme nts CHOLESTEROL (test code = 2210) 178 MG/DL TRIGLYCERIDES (test code = 2232) 154 MG/DL HDL CHOLESTEROL (test code = 2220) 52 MG/DL CALC LDL CHOL (test code = 2237) 100 MG/DL RISK RATIO LDL/HDL (test cod e = 2238) 1.92 RATIO COMPREHENSIVE METABOLIC [id number] 00:00:00* Test Item Value Reference Range Interpretation Comme nts GLUCOSE (test code = 2217) 140 MG/DL BUN (test code = 2208) 24 MG/DL CREATININE (test code = 2214) 0.92 MG/DL eGFR AMER. (test cod e = 53437) 71 ML/MIN/1.73 eGFR NON- AMER. (test code = 46701) 61 ML/MIN/1.73 CALC BUN/CREAT (test code = [...] (test code = 2219) 20 U/L HEMOGLOBIN [id number] 00:00:00* Test Item Value Reference Range Interpretation Comme nts HEMOGLOBIN A1c (test code = 34530) 9.2 % LIPID [id number] 00:00:00* Test Item Value Reference Range Interpretation Comme nts CHOLESTEROL (test code = 2210) 178 MG/DL TRIGLYCERIDES (test code = 2232) 154 MG/DL HDL CHOLESTEROL (test code = 2220) 52 MG/DL CALC LDL CHOL (test code = 2237) 100 MG/DL RISK RATIO LDL/HDL (test cod e = 2238) 1.92 RATIO COMPREHENSIVE METABOLIC [id number] 00:00:00* Test Item Value Reference Range Interpretation Comme nts GLUCOSE (test code = 2217) 140 MG/DL BUN (test code = 2208) 24 MG/DL CREATININE (test code = 2214) 0.92 MG/DL eGFR AMER. (test cod e = 28548) 71 ML/MIN/1.73 eGFR NON- AMER. (test code = 25904) 61 ML/MIN/1.73 CALC BUN/CREAT (test code = [...] (test code = 2219) 20 U/L HEMOGLOBIN [id number] 00:00:00* Test Item Value Reference Range Interpretation Comme nts HEMOGLOBIN A1c (test code = 64895) 9.2 % LIPID [id number] 00:00:00* Test Item Value Reference Range Interpretation Comme nts CHOLESTEROL (test code = 2210) 178 MG/DL TRIGLYCERIDES (test code = 2232) 154 MG/DL HDL CHOLESTEROL (test code = 2220) 52 MG/DL CALC LDL CHOL (test code = 2237) 100 MG/DL RISK RATIO LDL/HDL (test cod e = 2238) 1.92 RATIO COMPREHENSIVE METABOLIC [id number] 00:00:00* Test Item Value Reference Range Interpretation Comme nts GLUCOSE (test code = 2217) 140 MG/DL BUN (test code = 2208) 24 MG/DL CREATININE (test code = 2214) 0.92 MG/DL eGFR AMER. (test cod e = 45850) 71 ML/MIN/1.73 eGFR NON- AMER. (test code = 48213) 61 ML/MIN/1.73 CALC BUN/CREAT (test code = [...] (test code = 2219) 20 U/L HEMOGLOBIN [id number] 00:00:00* Test Item Value Reference Range Interpretation Comme nts HEMOGLOBIN A1c (test code = 47646) 9.2 % LIPID [id number] 00:00:00* Test Item Value Reference Range Interpretation Comme nts CHOLESTEROL (test code = 2210) 178 MG/DL TRIGLYCERIDES (test code = 2232) 154 MG/DL HDL CHOLESTEROL (test code = 2220) 52 MG/DL CALC LDL CHOL (test code = 2237) 100 MG/DL RISK RATIO LDL/HDL (test cod e = 2238) 1.92 RATIO COMPREHENSIVE METABOLIC [id number] 00:00:00* Test Item Value Reference Range Interpretation Comme nts GLUCOSE (test code = 2217) 140 MG/DL BUN (test code = 2208) 24 MG/DL CREATININE (test code = 2214) 0.92 MG/DL eGFR AMER. (test cod e = 97413) 71 ML/MIN/1.73 eGFR NON- AMER. (test code = 17158) 61 ML/MIN/1.73 CALC BUN/CREAT (test code = [...] (test code = 2219) 20 U/L HEMOGLOBIN [id number] 00:00:00* Test Item Value Reference Range Interpretation Comme nts HEMOGLOBIN A1c (test code = 91527) 9.2 % Surendra Knowles, [id number] 00:00:00* Test Item Value Reference Range Interpretation Comme nts CULTURE, URINE (test code = 17156) SPECIMEN NUMBER: [id number] Surendra Knowles, [id number] 00:00:00* Test Item Value Reference Range Interpretation Comme nts CULTURE, URINE (test code = 76890) SPECIMEN NUMBER: [id number] Surendra Knowles, [id number] 00:00:00* Test Item Value Reference Range Interpretation Comme nts CULTURE, URINE (test code = 45945) SPECIMEN NUMBER: [id number] Surendra Knowles, [id number] 00:00:00* Test Item Value Reference Range Interpretation Comme nts CULTURE, URINE (test code = 16677) SPECIMEN NUMBER: [id number] Surendra Knowles, [id number] 00:00:00* Test Item Value Reference Range Interpretation Comme nts CULTURE, URINE (test code = 06807) SPECIMEN NUMBER: [id number] Surendra Knowles, [id number] 00:00:00* Test Item Value Reference Range Interpretation Comme nts CULTURE, URINE (test code = 04458) SPECIMEN NUMBER: [id number] Surendra Knowles, [id number] 00:00:00* Test Item Value Reference Range Interpretation Comme nts CULTURE, URINE (test code = 39207) SPECIMEN NUMBER: [id number] Surendra Knowles, [id number] 00:00:00* Test Item Value Reference Range Interpretation Comme nts CULTURE, URINE (test code = 89260) SPECIMEN NUMBER: [id number] CULTURE, [id number] 00:00:00* Test Item Value Reference Range Interpretation Comme nts CULTURE, URINE (test code = 69756) SPECIMEN NUMBER: [id number] CULTURE, [id number] 00:00:00* Test Item Value Reference Range Interpretation Comme nts CULTURE, URINE (test code = 27824) SPECIMEN NUMBER: [id number] CULTURE, [id number] 00:00:00* Test Item Value Reference Range Interpretation Comme nts CULTURE, URINE (test code = 16610) SPECIMEN NUMBER: [id number] CULTURE, [id number] 00:00:00* Test Item Value Reference Range Interpretation Comme nts CULTURE, URINE (test code = 88585) SPECIMEN NUMBER: [id number] Surendra WhiteCULTURE, [id number] 00:00:00* Test Item Value Reference Range Interpretation Comme nts CULTURE, URINE (test code = 08994) SPECIMEN NUMBER: [id number] Surendra WhiteCULTURE, [id number] 00:00:00* Test Item Value Reference Range Interpretation Comme nts CULTURE, URINE (test code = 34639) SPECIMEN NUMBER: [id number] Surendra WhiteCULTURE, [id number] 00:00:00* Test Item Value Reference Range Interpretation Comme nts CULTURE, URINE (test code = 24164) SPECIMEN NUMBER: [id number] Surendra WhiteCULTURE, [id number] 00:00:00* Test Item Value Reference Range Interpretation Comme nts CULTURE, URINE (test code = 58600) SPECIMEN NUMBER: [id number] Surendra WhiteCULTURE, [id number] 00:00:00* Test Item Value Reference Range Interpretation Comme nts CULTURE, URINE (test code = 24819) SPECIMEN NUMBER: [id number] Surendra WhiteCULTURE, [id number] 00:00:00* Test Item Value Reference Range Interpretation Comme nts CULTURE, URINE (test code = 69499) SPECIMEN NUMBER: [id number] Surendra WhiteCULTURE, [id number] 00:00:00* Test Item Value Reference Range Interpretation Comme nts CULTURE, URINE (test code = 16494) SPECIMEN NUMBER: [id number] Surendra WhiteCULTURE, [id number] 00:00:00* Test Item Value Reference Range Interpretation Comme nts CULTURE, URINE (test code = 45868) SPECIMEN NUMBER: [id number] Surendra WhiteCULTURE, [id number] 00:00:00* Test Item Value Reference Range Interpretation Comme nts CULTURE, URINE (test code = 37918) SPECIMEN NUMBER: [id number] CULTURE, [id number] 00:00:00* Test Item Value Reference Range Interpretation Comme nts CULTURE, URINE (test code = 65196) SPECIMEN NUMBER: [id number] CULTURE, [id number] 00:00:00* Test Item Value Reference Range Interpretation Comme nts CULTURE, URINE (test code = 99408) SPECIMEN NUMBER: [id number] CULTURE, [id number] 00:00:00* Test Item Value Reference Range Interpretation Comme nts CULTURE, URINE (test code = 31061) SPECIMEN NUMBER: [id number] CULTURE, [id number] 00:00:00* Test Item Value Reference Range Interpretation Comme nts CULTURE, URINE (test code = 57236) SPECIMEN NUMBER: [id number] Surendra WhiteCULTURE, [id number] 00:00:00* Test Item Value Reference Range Interpretation Comme nts CULTURE, URINE (test code = 92864) SPECIMEN NUMBER: [id number] Surendra WhiteCULTURE, [id number] 00:00:00* Test Item Value Reference Range Interpretation Comme nts CULTURE, URINE (test code = 45184) SPECIMEN NUMBER: [id number] Surendra WhiteCULTURE, [id number] 00:00:00* Test Item Value Reference Range Interpretation Comme nts CULTURE, URINE (test code = 25887) SPECIMEN NUMBER: [id number] Surendra WhiteCULTURE, [id number] 00:00:00* Test Item Value Reference Range Interpretation Comme nts CULTURE, URINE (test code = 23452) SPECIMEN NUMBER: [id number] Surendra WhiteCULTURE, [id number] 00:00:00* Test Item Value Reference Range Interpretation Comme nts CULTURE, URINE (test code = 84105) SPECIMEN NUMBER: [id number] Surendra WhiteCULTURE, [id number] 00:00:00* Test Item Value Reference Range Interpretation Comme nts CULTURE, URINE (test code = 34743) SPECIMEN NUMBER: [id number] Surendra WhiteCULTURE, [id number] 00:00:00* Test Item Value Reference Range Interpretation Comme nts CULTURE, URINE (test code = 21006) SPECIMEN NUMBER: [id number] CULTURE, [id number] 00:00:00* Test Item Value Reference Range Interpretation Comme nts CULTURE, URINE (test code = 19934) SPECIMEN NUMBER: [id number] CULTURE, [id number] 00:00:00* Test Item Value Reference Range Interpretation Comme nts CULTURE, URINE (test code = 78065) SPECIMEN NUMBER: [id number] CULTURE, [id number] 00:00:00* Test Item Value Reference Range Interpretation Comme nts CULTURE, URINE (test code = 63303) SPECIMEN NUMBER: [id number] CULTURE, [id number] 00:00:00* Test Item Value Reference Range Interpretation Comme nts CULTURE, URINE (test code = 15950) SPECIMEN NUMBER: [id number] Surendra hWite Consult Notes Date/Time Note Provider Source 2024-06-06 [...] Treatment Time in Minutes: 30 Min Caroline Vizcarra PT [place] PT License [id number] [facility] Department (phone) (fax) ON Vizcarra PT [facility] 2024-05-30 11:07:00 Associated Order(s): CONSULT VASCULAR ACCESS APCS Vascular Access Services MID-LINE CONSULT 79 year old female. Indication/Diagnosis: intravenous access See procedure note. T BROKER [facility] 2024-05-27 13:31:26 [facility] Pulmonary/Critical Care Medicine Interventional Pulmonology Chief Complaint: [...] as tolerated Change Duo nebs to Q6H T BROKER IM-PULMONARY DISEASE STAFF [facility] 2024-05-26 13:00:00 Associated Order(s): CONSULT PS PASTORAL CARE Event Adjunct History Instructor visited patient while rounding. Intervention Adjunct History Instructor was a spiritual presence and night nurse. Adjunct History Instructor offered active compassionate listening. Adjunct History Instructor provided patient with words of support and encouragement. Adjunct History Instructor prayed for patient healing and recovery. Outcome/Spiritual Assessment Patient received awake in bed. Patient family was at bedside. Patient was pleasant and welcomed the Adjunct History Instructor visit. Patient is a Zoroastrianism and welcomed prayer. Patient and family thanked the Adjunct History Instructor for the visit. Plan Additional Adjunct History Instructor support is available upon request. Adjunct History Instructor Mirna Velásquez DMin Pastoral Care Department [phone] T BROKER Mirna Velásquez [facility] 2024-05-25 13:05:00 Associated Order(s): CONSULT ADULT PHYSICAL [...] N/A 02/13/2016 Surgeon: Wendy Mcclellan MD; Location: [facility] OR Location HYSTERECTOMY OR ANES NERVE MUSC TENDON FASCIA&BURSA KNEE&/POPLT OR DILATION ESOPH UNGUIDED SOUND/BOUGIE 1/MULT PASS 02/13/2016 OR ESOPHAGOGASTRODUODENOSCOPY TRANSORAL DIAGNOSTIC 02/13/2016 TONSILLECTOMY TOTAL KNEE [...] before and after session COMMUNICATION Primary Language: [place] Able to Verbalize needs: Yes Vision:good; no [...] min Leola Brandt PT [place] Lic No. [id number] [facility] Department of Physical Therapy T BROKER Leola Brandt PT [facility] 2023-10-23 13:09:21 Associated Order(s): CONSULT ICE HOUSE SUPERVISOR-ADULT Patient wishing to go to INPT rehab at [facility], daughter Kassandra Hidalgo, agreed. Arnol Rodriguez RN, BSN [facility] ADC Pattern Grader Cutter O [phone] F [phone] [id number] [phone] T [facility] 2023-10-22 16:04:00 Associated Order(s): CONSULT SPEECH Speech-Language Pathology Clinical Swallow Evaluation and Speech-Language/Cognitive Evaluation 10/22/2023 Werner Diaz : 1945 Age/Sex: 78 year old female Time IN/OUT: 4978-9362 Referring Physician: Angel Luis Rangel MD Date of Referral: 10/22/2023 Reason for Referral: stroke activation (dysphagia, speech-language/cognitive-linguisti c) Date of Admission/Onset: 10/22/2023 SUBJECTIVE: Pt independent in room. Pt awake and alert reclining in bed. Pt's food tray was brought up for dinner and she was agreeable to the MACHINE OPERATOR REPLANTER staying to assess her swallow and to [...] Dictated by Resident: Mor Darby I, Isi Wlikinson MD., have reviewed this study and agree with the above report. CT HEAD WO CONTRAST Result Date: 10/22/2023 Age-indeterminate left parietal lobe infarct, favoring to be subacute to chronic new since the prior study but fairly hypodense and probably not acute. Preliminary Report Dictated by Resident: Mor Darby I, Nain Mora MD., have reviewed this study and agree with the above report. Previous MACHINE OPERATOR REPLANTER Services/Swallow History: None found in pt's medical chart and none reported by the pt. Past Medical History: Diagnosis Date Anxiety Atrial fibrillation Depression Diabetes mellitus type II, controlled Fluid retention GERD (gastroesophageal reflux disease) HTN (hypertension) Hyperlipidemia Left knee pain 07/11/2015 Nerve pain Past Surgical History: Procedure Laterality Date APPENDECTOMY BACK SURGERY CHOLECYSTECTOMY ESOPHAGOGASTRODUODENOSCOPY N/A 02/13/2016 Surgeon: Wendy Mcclellan MD; Location: [facility] OR Location HYSTERECTOMY OR ANES NERVE MUSC TENDON FASCIA&BURSA KNEE&/POPLT OR DILATION ESOPH UNGUIDED SOUND/BOUGIE 1/MULT PASS 02/13/2016 OR ESOPHAGOGASTRODUODENOSCOPY TRANSORAL DIAGNOSTIC 02/13/2016 TONSILLECTOMY TOTAL KNEE ARTHROPLASTY Left General Behavior: Alert, Calm, Confused, and Cooperative Hearing: WFL for speech Respiratory Status: room air Orientation/Cognition: - Patient oriented to: person, place, time, and situation. Pt had difficulty telling the MACHINE OPERATOR REPLANTER what her was; however, when the MACHINE OPERATOR REPLANTER started listing off the of the year [...] PO trials were administered by patient and MACHINE OPERATOR REPLANTER. Patient was provided with multiple bites/sips of [...] verbally. Discussed findings of evaluation, recommendations and MACHINE OPERATOR REPLANTER plan of care. Discussed risks of aspiration/dysphagia [...] communication, and improved cognitive-communication skills with skilled MACHINE OPERATOR REPLANTER therapy, time, adherence to MACHINE OPERATOR REPLANTER recommendations, family/caregiver support, improvement in alertness and [...] with increased belching during PO trials. Continued MACHINE OPERATOR REPLANTER services: Receptive Language: - Patient will follow [...] Discharge Recommendations: - Recommend referral for outpatient MACHINE OPERATOR REPLANTER evaluation/treatment. - Recommend continued MACHINE OPERATOR REPLANTER services at d/c facility, ideally at inpatient neuro rehab type of facility if feasible. *D/C Recs subject to change pending progress made while in-house. Alberta Li M.S., [facility]-MACHINE OPERATOR REPLANTER Speech Language Pathology [facility] Department: [phone] [facility] 2023-10-22 15:27:59 Associated Order(s): CONSULT ADULT PHYSICAL [...] N/A 02/13/2016 Surgeon: Wendy Mcclellan MD; Location: [facility] HYSTERECTOMY OR ANES NERVE MUSC TENDON FASCIA&BURSA KNEE&/POPLT OR DILATION ESOPH UNGUIDED SOUND/BOUGIE /MULT PASS 02/13/2016 OR ESOPHAGOGASTRODUODENOSCOPY TRANSORAL DIAGNOSTIC 02/13/2016 TONSILLECTOMY TOTAL KNEE [...] before and after session COMMUNICATION Primary Language: [place] Island[place] Able to Verbalize needs: Yes Vision:good; no [...] min Caroline Vizcarra PT [place] PT License [id number] [facility] Department (phone) (fax) Caroline Vizcarra PT [facility] - Health History and Physical Notes Date/Time Note Provider Source 2024-05-25 02:23:19 [facility] ADMIT H&P Date of Service: 05/25/2024 CHIEF [...] N/A 02/13/2016 Surgeon: Wendy Mcclellan MD; Location: [facility] OR Location HYSTERECTOMY OR ANES NERVE MUSC TENDON FASCIA&BURSA KNEE&/POPLT OR DILATION ESOPH UNGUIDED SOUND/BOUGIE 1/MULT PASS 02/13/2016 OR ESOPHAGOGASTRODUODENOSCOPY TRANSORAL DIAGNOSTIC 02/13/2016 TONSILLECTOMY TOTAL KNEE [...] Surrogate decision maker: Gosia Hidalgo (child) - [facility] 2024-03-10 09:26:23 A formal shared decision making interaction has occurred with myself (a non interventional physician). The patient is not a candidate for per assessment nurse oral anticoagulation due to significant hx of GIB and falls but is a candidate for short term oral anticoagulation (currently on DAPT) and therefore I agree that this patient is a candidate for Watchman LAAC. The patient's CHADSVASC score is 6 and HASBLED score is >3. Wilver Kirby MD Cardiology Faculty Progress Notes Wilver Baker [...] performed Right heart cath using 7 F [place] catheter and serially measured SAo2 and [...] -recheck lipids next visit Paroxysmal atrial fibrillation ([id number]) w/ hx of fairly recent CVA HASBLED>3 due to GIB and fall risk -Eliquis stopped during recent admission due to GIB; currently on DAPT; no GIB now -Coreg 6.25 mg BID -Watchman SYED as pt and family prefer not to retart eliquis pending procedure given high risk of falls too [facility] 2023-10-22 01:32:50 [facility] Hospitalist Admission H&P Date of Service: 10/22/2023 [...] N/A 02/13/2016 Surgeon: Wendy Mcclellan MD; [place] [facility] [place] HYSTERECTOMY OR ANES NERVE MUSC TENDON FASCIA&BURSA KNEE&/POPLT OR DILATION ESOPH UNGUIDED SOUND/BOUGIE 1/MULT PASS 02/13/2016 OR ESOPHAGOGASTRODUODENOSCOPY TRANSORAL DIAGNOSTIC 02/13/2016 TONSILLECTOMY TOTAL KNEE [...] change, unknown cause . History obtained from [facility]: Increasing confusion since Thursday. TECHNIQUE: Axial CT [...] given high risk of morbidity and mortality. [place] [employer] was verified during stay Angel Luis Rangel MD T [facility] - Health Procedure Notes Date/Time Note Provider Source 2024-05-30 11:07:11 [facility] ULTRASOUND GUIDED MID-LINE PLACEMENT Procedure performed by: Slade Gill RN on 05/30/24 Patient location: [place] [address] Education provided to patient, to include pros and cons, risks versus benefits and possible complications associated with MID-LINE insertion. Questions encouraged and answered accordingly. Written Consent obtained from Werner Diaz. According to [facility] Operating Procedures Policy, a Time Out was performed to include procedure performed, identity of proceduralist, and identity of procedure recipient by two identifiers. Co-signed/witnessed by Kya Darby RN. An ultrasound guided, 4 Fr., 8 cm. MIDLINE was then placed in the left basilic vein, in one attempt(s). Local anesthetic not used. Labs obtained: no Patient tolerated procedure well: yes Complications: no REF#: [id number] Lot #: [id number] Exp: 12/15/25 T BROKER Slade Gill RN [facility] 2024-03-10 09:26:29 Watchman Device Implantation Procedure: Left Atrial Appendage Occlusion via a Watchman device Indication: Paroxysmal Atrial Fibrillation with a [id number] score >3 and intolerant to anticoagulation due to GI Bleeding. Technique: After obtaining informed consent the patient was prepped and draped in the usual sterile fashion. Monitored anesthesia care was initiated under anesthesia team guidance (see BUSINESS LAW INSTRUCTOR records). A transesophageal echocardiogram was performed. The [...] atrial appendage Note: This was a single brine well operator procedure. Michael Bethea MD Cardiac Electrophysiology [facility]
[2024-06-24 06:26] LABS: Blood Gas Oxyhemoglobin 88.3 % (94-97); Blood O2 Saturation 90.9 % (92-98.5)
[2024-06-24 06:27] LABS: Arterial Blood Carboxyhemoglob 1.3 % (0-1.5); Blood Gas THB 12.4 g/dl (12-18)
[2024-06-24 06:35] LABS: Absolute Eosinophils 0.1 K/uL (0-0.5); Absolute Monocytes 2.2 K/uL (0.1-1.3); Absolute Neutrophil 13.8 K/uL (1.8-8.0); Basophils % 0.2 % (0-1.3); Eosinophils % 0.6 % (0-4.4); Hematocrit 34.1 % (36.0-45.0); Hemoglobin 11.9 g/dL (12.0-15.0); MCH 31.2 pg (27.0-35.0); MCHC 35.1 g/dL (32.0-36.0); MCV 88.9 fL (80-100); MPV 7.9 fL (7.6-11.3); Monocytes % 12.2 % (3.3-12.3); Nucleated Red Blood Cells % 0.1 % (0-0); Platelets 459 thou/uL (152-406); RBC Red Blood Cell Count 3.84 M/uL (3.86-4.86); Red Cell Distribution Width 15.6 % (12.1-15.2)
[2024-06-24 06:37] LABS: PTT, Activated Partial Thromb 31.2 SECONDS (24.3-36.9); Protime INR 1.34
[2024-06-24] MEDS ORDERED: LEVALBUTEROL 1.25 MG/3 ML NEB ONE (06:43)
[2024-06-24 06:49] LABS: Albumin 2.3 g/dL (3.4-5.0); Albumin/Globulin Ratio 0.5 (1.1-1.8); Anion Gap 7.6 mEq/L (5.0-15.0); Bilirubin Direct 0.5 mg/dL (0-0.2); Bilirubin Indirect, Calculated 0.7 mg/dL (0.2-0.8); Bilirubin Total 1.2 mg/dL (0.2-1.0); Globulin 4.7 g/dL (2.3-3.5); Potassium 3.6 mEq/L (3.5-5.1); Troponin High Sensitivity 11.5 pg/mL (<58.9)
--- NOTE | 2024-06-24 06:53 | RAD REPORT ---
EXAM: Chest Single View HISTORY: DYSPNEA COMPARISON: 06/22/2024 FINDINGS: LUNGS/PLEURA: Bibasilar airspace opacities similar to 06/22/2024. MEDIASTINUM: The mediastinal silhouette is within normal limits. CARDIAC: Stable size and configuration. UPPER ABDOMEN: No significant abnormality. BONES: No acute abnormality. LINES/TUBES/OTHER: N/A IMPRESSION: Decreased lung volumes with likely similar airspace opacities in the lung bases which could reflect p neumonia or pneumonitis.
--- NOTE | 2024-06-24 07:09 | EDPHYS ---
Physician Documentation [facility] Name: Werner Yo Age: 79 yrs Sex: Female : 1945 Arrival Date: 06/24/2024 Time: 05:33 Bed 2 Private MD: ED Physician All Winston HPI: 06/24 06:44 This 79 yrs old Female presents to ER via EMS with complaints of Shortness Of Breath. rt 06:44 Patient with history of CHF, COPD presents to the ED with shortness of breath, starting rt overnight. She was recently mated to the hospital, subsequently discharged but had worsening respiratory status. Was noted to be hypoxic to the 80s on about 5 L. Denies other acute complaints at this time, symptoms are moderate severity, no other aggravating alleviating factors.. Historical: - Allergies: 05:42 No Known Allergies; jj7 - PMHx: 05:42 ACUTE POSTHEMORRHAGIC ANEMIA; acute pulmonary edema; acute respiratory failure; jj7 Anxiety; Bipolar disorder; chronic fatigue; chronic muscle weakness; Chronic obstructive lung disease; cognitive communication deficit; Congestive heart failure; diabetes mellitus; DYSPHAGIA; GERD; Hyperlipidemia; Hypertensive disorder; hypotension; Major Depressive Disorder; overactive bladder; Paroxysmal Atrial Fibrillation; - PSHx: 05:42 Appendectomy; Total abdominal hysterectomy; Cholecystectomy; jj7 - Immunization history:: Adult Immunizations up to date. - Infectious Disease History:: Denies. - Social history:: Smoking status: Patient/guardian denies using tobacco, Patient/guardian denies using alcohol, street drugs, IV drugs. - Family history:: not pertinent. ROS: 06:44 Constitutional: Negative for fever, chills, and weight loss, Cardiovascular: Negative rt for chest pain, palpitations, and edema, Abdomen/GI: Negative for abdominal pain, nausea, vomiting, diarrhea, and constipation, MS/Extremity: Negative for injury and deformity, Skin: Negative for injury, rash, and discoloration, Neuro: Negative for headache, weakness, numbness, tingling, and seizure, 06:44 Respiratory: Positive for cough, shortness of breath, Exam: 06:44 Constitutional: This is a well developed, well nourished patient who is awake, alert, rt and in no acute distress. Head/Face: Normocephalic, atraumatic. Chest/axilla: Normal chest wall appearance and motion. Nontender with no deformity. No lesions are appreciated. Cardiovascular: Regular rate and rhythm with a normal S1 and S2. No gallops, murmurs, or rubs. Normal PMI, no JVD. No pulse deficits. Abdomen/GI: Soft, non-tender, with normal bowel sounds. No distension or tympany. No guarding or rebound. No evidence of tenderness throughout. MS/ Extremity: Pulses equal, no cyanosis. Neurovascular intact. Full, normal range of motion. Neuro: Awake and alert, GCS 15, oriented to person, place, time, and situation. Cranial nerves II-XII grossly intact. Motor strength 5/5 in all extremities. Sensory grossly intact. Cerebellar exam normal. Normal gait. 06:44 ECG was reviewed by the Attending Physician. 06:44 Respiratory: Wheezes heard on all lung forrest, moderate respiratory distress, Vital Signs: 05:39 BP 124 / 67; Pulse 87; Resp 21; Temp 98.2; Pulse Ox 89% on 4 lpm NC; Weight 70.76 kg; lg3 Height 5 ft. 6 in. ; Pain 0/10; 07:35 BP 137 / 60; Pulse 85; Resp 23; Pulse Ox 87% on 10 lpm NC; iw 07:37 BP 128 / 66; Pulse 85; iw 05:39 Body Mass Index 25.18 (70.76 kg, 167.64 cm) lg3 05:39 Pain Scale: Adult lg3 MDM: 05:35 Medical Screening Exam initiated rt 07:09 Differential diagnosis: Pneumonia, bronchospasm, pulmonary edema. Data reviewed: vital rt signs, nurses notes, lab test result(s), EKG, radiologic studies. Consideration of Admission/Observation Patient was admitted/placed on observation. Management of patient was discussed with the following: Hospitalist: Agrees to admit. I considered the following discharge prescriptions or medication management in the emergency department Medications were administered in the Emergency Department. See MAR. Independent interpretation of the following test(s) in the Emergency Department X-Ray: My interpretation is Moderate infiltrate seen on interpretation of x-ray images. Test considered but Not performed: CT: Low suspicion for pulmonary embolus, CT angiogram not indicated. Care significantly affected by the following chronic conditions: Congestive Heart Failure, Chronic Obstructive Pulmonary Disease. Counseling: I had a detailed discussion with the patient and/or guardian regarding the historical points, exam findings, and any diagnostic results supporting the discharge/admit diagnosis, lab results, radiology results, the need for further work-up and treatment in the hospital. ED course: Patient's initial presentation was not thought to be due to an pneumonia, therefore, antibiotics were not initially given. Once radiology read of pneumonia came back, broad-spectrum antibiotics were given. Patient does have a history of CHF with respiratory distress, possible pulmonary edema, I believe that any fluid administration will likely worsen the patient's respiratory status.. 07:42 ED course: Patient signed out to me pending transfer. Patient with sepsis, pneumonia, ec2 given Vanco and cefepime and requiring oxygen.. 07:44 ED course: Patient on high flow oxygen, hypoxic in the mid 80s, placed the patient on ec2 BiPAP and add on steroids as well. Will transfer patient to [place] per patient request.. 07:44 ED course: Sepsis reassessment complete. ec2 08:45 ED course: Discussed case w/ ICU doc at [facility] (formerly [facility]) who agrees to accept the pt for ec2 transfer. 06/24 05:35 Order name: Basic Metabolic Panel; Complete Time: 07:00 rt 06/24 05:35 Order name: CBC with Diff; Complete Time: 10:04 rt 06/24 05:35 Order name: LFT's; Complete Time: 07:00 rt 06/24 05:35 Order name: NT PRO-BNP; Complete Time: 07:00 rt 06/24 05:35 Order name: Troponin HS; Complete Time: 07:00 rt 06/24 05:37 Order name: ABG; Complete Time: 07:00 rt 06/24 05:46 Order name: Sputum Culture kmf 06/24 05:57 Order name: Lactate w/ 2H reflex if indic.; Complete Time: 07:00 rt 06/24 05:57 Order name: Blood Culture Adult (2) rt 06/24 06:12 Order name: Ptt, Activated; Complete Time: 07:00 al5 06/24 06:12 Order name: PT-INR; Complete Time: 07:00 al5 06/24 06:42 Order name: CBC Smear Scan; Complete Time: 10:04 EDMS 06/24 07:26 Order name: SARS RAPID; Complete Time: 08:41 eb 06/24 05:35 Order name: XRAY Chest (1 view); Complete Time: 07:00 rt 06/24 10:23 Order name: BiPap ([employer] Only) EDMS 06/24 05:35 Order name: Cardiac monitoring; Complete Time: 05:57 rt 06/24 05:35 Order name: EKG - Nurse/Tech; Complete Time: 05:57 rt 06/24 05:35 Order name: IV Saline Lock; Complete Time: 05:57 rt 06/24 05:35 Order name: Labs collected and sent; Complete Time: 05:57 rt 06/24 05:35 Order name: O2 Per Protocol; Complete Time: 05:57 rt 06/24 05:35 Order name: O2 Sat Monitoring; Complete Time: 05:57 rt EC:44 Rate is 91 beats/min. Rhythm is regular, Normal Sinus Rhythm with No ectopy. QRS [place] rt is Normal. MD interval is normal. QRS interval is normal. QT interval is normal. No Q waves. Administered Medications: 05:39 Drug: Ipratropium Inhalation Aerosol 0.5 mg Inhalation once {Note: administered by RT.} lg3 Route: Inhalation; 05:40 Drug: Albuterol Inhalation 2.5 mg Inhalation once {Note: administered by RT.} Route: lg3 Inhalation; 07:34 Drug: Cefepime IVPB 2 grams IVPB at 200 ml/hr once over 30 mins; (mix in NS 100 mL) iw Route: IVPB; Rate: 200 ml/hr; Infused Over: 30 mins; Site: right hand; 08:05 Follow up: IV Status: Completed infusion iw 08:03 Drug: MethylPrednisoLONE IVP 125 mg IVP once Route: IVP; Site: right hand; iw 08:08 Drug: vancoMYCIN IVPB 1 grams IVPB once over 2 hrs Route: IVPB; Infused Over: 2 hrs; iw Site: right hand; 09:30 Follow up: IV Status: Completed infusion iw Disposition: 07:44 Critical Care:. ec2 Disposition Summary: 06/24/24 07:45 Transfer Ordered Notes: Transfer Location: Other Acute Care Facility ec2 Reason: Higher level of care ec2 Condition: Stable(06/24/24 07:45) ec2 Problem: an acute exacerbation(06/24/24 07:45) ec2 Symptoms: have improved(06/24/24 07:45) ec2 Accepting Physician: transferring doc(06/24/24 10:35) iw Diagnosis - Unspecified bacterial pneumonia ec2 - Sepsis, unspecified organism ec2 Forms: - Medication Reconciliation Form ec2 - SBAR form ec2 Critical care time excluding procedures: 07:44 Critical care time: Bedside Care: 30 minutes, Consultation: 5 minutes, Family ec2 Intervention: 5 minutes. Total time: 40 minutes Signatures: Dispatcher [employer] EDMS Ben Garzon MD MD cha Williams, Irene, RN RN iw Rox Kapadia RN RN lg3 Imelda Mitchell RN RN jj7 Clifford Gongora MD MD rt All Winston MD MD ec2 Corrections: (The following items were deleted from the chart) 05:36 05:36 BASIC METABOLIC PANEL+C.LAB.BRZ ordered. EDMS EDMS 05:36 05:36 CBC+H.LAB.BRZ ordered. EDMS EDMS 05:36 05:36 HEPATIC FUNCTION+C.LAB.BRZ ordered. EDMS EDMS 05:36 05:36 PROBNP+C.LAB.BRZ ordered. EDMS EDMS 05:36 05:36 Troponin High Sensitivity+C.LAB.BRZ ordered. EDMS EDMS 05:36 05:36 Chest Single View+RAD.RAD.BRZ ordered. EDMS EDMS 05:58 05:58 LACTATE+C.LAB.BRZ ordered. EDMS EDMS 05:58 05:58 BLOOD CULTURE*+BA.LAB.BRZ ordered. EDMS EDMS 06:12 06:12 PTT, ACTIVATED+COAG.LAB.BRZ ordered. EDMS EDMS 06:12 06:12 PROTIME (+INR)+COAG.LAB.BRZ ordered. EDMT EDMS 07:45 07:09 Inpatient Admission rt ec2 07:45 07:09 Godinez Valerieheri rt ec2 07:45 07:09 Telemetry/MedSurg (Inpatient) rt ec2 07:45 07:09 Fair rt ec2 07:45 07:09 new rt ec2 07:45 07:09 have improved rt ec2 07:45 07:09 Standard rt ec2 07:45 07:09 rt ec2 07:45 07:09 Healthcare associated pneumonia rt ec2 07:45 07:09 Sepsis rt ec2 07:45 07:09 Hypoxia rt ec2 10:35 07:45 transferring doc ec2 iw
--- NOTE | 2024-06-24 07:09 | ER ---
Nurse's Notes [facility] Name: Werner Yo Age: 79 yrs Sex: Female : 1945 Arrival Date: 06/24/2024 Time: 05:33 Bed 2 Private MD: Diagnosis: Unspecified bacterial pneumonia;Sepsis, unspecified organism Presentation: 06/24 05:39 Chief complaint: EMS states: SOB. WAS JUST RELEASED 3 DAYS AGO FROM THE HOSPITAL FOR jj7 RESPIRATORY FAILURE. NOW HAVING DIFFICULTY BREATHING AND SOB ON 6L OF . Coronavirus screen: At this time, the client does not indicate any symptoms associated with coronavirus-19. Ebola Screen: No symptoms or risks identified at this time. Initial Sepsis Screen: Does the patient meet any 2 criteria? No. Patient's initial sepsis screen is negative. Does the patient have a suspected source of infection? No. Patient's initial sepsis screen is negative. Risk Assessment: Do you want to hurt yourself or someone else? Patient reports no desire to harm self or others. Onset of symptoms was June 24, 2024 at 03:00. Care prior to arrival: Medication(s) given: PORSHA-MEDROL 125MG IV IV initiated. 20 GA, in the right wrist, Oxygen administered. via nasal cannula. 05:39 Method Of Arrival: EMS: [facility] j7 05:39 Acuity: ALTON 3 jj7 Triage Assessment: 05:42 General: Appears distressed, uncomfortable, Behavior is calm, cooperative, appropriate jj7 for age. Pain: Denies pain. Respiratory: Airway is patent Respiratory effort is labored, with nasal flaring, with retractions, Breath sounds with rales bilaterally. Breath sounds with rhonchi bilaterally. Stridor noted. Historical: - Allergies: 05:42 No Known Allergies; jj7 - PMHx: 05:42 ACUTE POSTHEMORRHAGIC ANEMIA; acute pulmonary edema; acute respiratory failure; jj7 Anxiety; Bipolar disorder; chronic fatigue; chronic muscle weakness; Chronic obstructive lung disease; cognitive communication deficit; Congestive heart failure; diabetes mellitus; DYSPHAGIA; GERD; Hyperlipidemia; Hypertensive disorder; hypotension; Major Depressive Disorder; overactive bladder; Paroxysmal Atrial Fibrillation; - PSHx: 05:42 Appendectomy; Total abdominal hysterectomy; Cholecystectomy; jj7 - Immunization history:: Adult Immunizations up to date. - Infectious Disease History:: Denies. - Social history:: Smoking status: Patient/guardian denies using tobacco, Patient/guardian denies using alcohol, street drugs, IV drugs. - Family history:: not pertinent. Screenin:46 [facility] ED Fall Risk Assessment (Adult). Abuse screen: Denies threats or abuse. jj7 Nutritional screening: No deficits noted. Tuberculosis screening: No symptoms or risk factors identified. 05:52 [facility] ED Fall Risk Assessment (Adult) History of falling in the last 3 months, lg3 including since admission No falls in past 3 months (0 pts) Confusion or Disorientation No (0 pts) Intoxicated or Sedated No (0 pts) Impaired Gait No (0 pts) Mobility Assist Device Used No (0 pt) Altered Elimination No (0 pt) Score/Fall Risk Level 0 - 2 = Low Risk Oriented to surroundings, Maintained a safe environment, Educated pt \T\ family on fall prevention, incl call for assistance when getting out of bed, Assessed \T\ reinforced patient's understanding of fall precautions, Provided non-skid footwear. Assessment: 05:52 General: Appears in no apparent distress. uncomfortable, ill, Behavior is calm, lg3 cooperative. Pain: Denies pain. Neuro: No deficits noted. Hein Agitation-Sedation Scale (RASS): 0 - Alert and Calm Level of Consciousness is awake, alert, obeys commands, Oriented to person, place, time, situation. Cardiovascular: Reports shortness of breath, Denies chest pain, Heart tones S1 S2 present Capillary refill < 3 seconds Clubbing of nail beds is absent JVD is absent Patient's skin is warm and dry. Chest pain is denied. Respiratory: Airway is patent Respiratory effort is labored, with nasal flaring, with retractions, shallow, Respiratory pattern is tachypnea Breath sounds with rales bilaterally. GI: No deficits noted. No signs and/or symptoms were reported involving the gastrointestinal system. : No signs and/or symptoms were reported regarding the genitourinary system. EENT: No deficits noted. No signs and/or symptoms were reported regarding the EENT system. Derm: No deficits noted. No signs and/or symptoms reported regarding the dermatologic system. Skin is intact, is thin, Skin is dry, Skin is normal, Skin temperature is warm. Musculoskeletal: No deficits noted. No signs and/or symptoms reported regarding the musculoskeletal system. Circulation, motion, and sensation intact. Range of motion: intact in all extremities. 07:37 General: Appears in no apparent distress. Behavior is calm, cooperative. General: iw Reports feeling ill for fatigue for. Neuro: Level of Consciousness is awake, alert, obeys commands, Oriented to person, place, time, situation. Cardiovascular: Rhythm is sinus rhythm with unifocal PVCs. Respiratory: Reports shortness of breath at rest on exertion cough that is non-productive, Airway is patent Respiratory effort is even, labored, GI: Abdomen is non-distended. Derm: Skin is fragile, is thin, Skin is dry, Skin is pink, warm \T\ dry. normal. Musculoskeletal: Range of motion: intact in all extremities. 09:36 Reassessment: Patient appears in no apparent distress at this time. report given to wendy Hudson at [facility]. 10:14 Reassessment: [facility] at bedside for transport. iw Vital Signs: 05:39 BP 124 / 67; Pulse 87; Resp 21; Temp 98.2; Pulse Ox 89% on 4 lpm NC; Weight 70.76 kg; lg3 Height 5 ft. 6 in. ; Pain 0/10; 07:35 BP 137 / 60; Pulse 85; Resp 23; Pulse Ox 87% on 10 lpm NC; iw 07:37 BP 128 / 66; Pulse 85; iw 05:39 Body Mass Index 25.18 (70.76 kg, 167.64 cm) lg3 05:39 Pain Scale: Adult lg3 ED Course: 05:35 Patient arrived in ED. lg3 05:35 Clifford Gongora MD is Attending Physician. rt 05:42 Triage completed. jj7 05:42 Arm band placed on right wrist. Patient placed in an exam room, on a stretcher, on jj7 oxygen, on telemetry monitor, on pulse oximetry. 05:46 Patient has correct armband on for positive identification. Placed in gown. Bed in low jj7 position. Call light in reach. Side rails up X2. Provided Education on: USE OF CALL GARCÍA. Client placed on continuous cardiac and pulse oximetry monitoring. NIBP monitoring applied. nurse monitoring on. Pulse ox on. Warm blanket given. 05:51 Rox Kapadia RN is Primary Nurse. lg3 05:52 Initial lab(s) drawn, by ED staff, sent to lab. EKG done, by facility environmental technician. reviewed by Clifford Gongora MD ABG drawn. by RT staff, on oxygen. Initial Neb Treatment Given as ordered Patient was instructed and evaluated on procedure. Maintain EMS IV. Dressing intact. Good blood return noted. Site clean \T\ dry. Gauge \T\ site: 20 R hand. Flushed with 10 mL NS. 05:56 Inserted saline lock: 22 gauge in left forearm, using aseptic technique. Flushed with lg3 10 mL NS. 05:57 Basic Metabolic Panel Sent. lg3 05:57 CBC with Diff Sent. lg3 05:57 LFT's Sent. lg3 05:57 NT PRO-BNP Sent. lg3 05:57 Troponin HS Sent. lg3 05:57 ABG Sent. lg3 05:57 Sputum Culture Sent. lg3 06:02 XRAY Chest (1 view) In Process Unspecified. EDMS 07:08 Angel Luis Godinez MD is Hospitalizing Provider. rt 07:20 Attending Physician role handed off by Clifford Gongora MD ec2 07:20 All Winston MD is Attending Physician. ec2 07:33 initiated a transfer with Manjit from the [facility] transfer center at the request of the patient. 08:46 administrative approval given by Manjit Moctezuma / patient has been accepted to [facility] room 2108/ Dr. Inocencio Roman has accepted the patient in transfer/ report to be called to [phone]/. 09:37 Primary Nurse role handed off by Rox Kapadia RN iw 09:37 Shoshana Lawson, WHITNEY is Primary Nurse. iw Administered Medications: 05:39 Drug: Ipratropium Inhalation Aerosol 0.5 mg Inhalation once {Note: administered by RT.} lg3 Route: Inhalation; 05:40 Drug: Albuterol Inhalation 2.5 mg Inhalation once {Note: administered by RT.} Route: lg3 Inhalation; 07:34 Drug: Cefepime IVPB 2 grams IVPB at 200 ml/hr once over 30 mins; (mix in NS 100 mL) iw Route: IVPB; Rate: 200 ml/hr; Infused Over: 30 mins; Site: right hand; 08:05 Follow up: IV Status: Completed infusion iw 08:03 Drug: MethylPrednisoLONE IVP 125 mg IVP once Route: IVP; Site: right hand; 08:08 Drug: vancoMYCIN IVPB 1 grams IVPB once over 2 hrs Route: IVPB; Infused Over: 2 hrs; Site: right hand; 09:30 Follow up: IV Status: Completed infusion iw Outcome: 07:09 Decision to Hospitalize by Provider. rt 07:45 ER care complete, transfer ordered by . ec2 10:35 Patient left the ED. iw Signatures: Dispatcher [employer] Shoshana Razo RN WHITNEY iw Samira Gunn Lacie RN RN lg3 Imelda Mitchell RN RN jj7 Clifford Gongora MD MD rt All Winston MD MD ec2 Corrections: (The following items were deleted from the chart) 05:52 05:39 BP 124 / 67; Pulse 90bpm; Resp 21bpm; Pulse Ox 89% 4 lpm Nasal Cannula; Temp lg3 98.2F; 70.76 kg; Height 5 ft. 6 in.; BMI: 25.1; Pain 0/10, Adult; jj7
[2024-06-24] MEDS ORDERED: CEFEPIME 2 GM VIAL ONE (07:17)
[2024-06-24] MEDS ORDERED: NA CHLORIDE 0.9% 100 ML ONE (07:17)
[2024-06-24] MEDS ORDERED: VANCOMYCIN 1 GM/VIAL ONE (07:18)
[2024-06-24] MEDS ORDERED: NA CHLORIDE 0.9% 250 ML ONE (07:18)
[2024-06-24] MEDS ORDERED: METHYLPREDNISOLONE 125 MG INJ ONE (07:59)
[2024-06-24 08:13] LABS: SARS-CoV-2 Antigen CONTROL BLUE LINE VIS/BG OK; SARS-CoV-2 Antigen Rapid Res Negative (Negative)
[2024-06-24 09:16] LABS: Anisocytosis 1+; Blood Morphology Comment NOTED (NOT SEEN); Platelet Estimate INCR; Platelets, Giant NOTED; Polychromasia 1+; White Blood Cell Scan OK (OK)
[2024-06-24 10:45] VITALS: TEMP 98.2
[2024-06-24 10:51] VITALS: O2SAT 87
[2024-06-24 10:56] VITALS: BP 128/66
--- NOTE | 2024-06-24 13:38 | EKG ---
Test Date: 2024-06-24 Test Time: 06:02:15 Parking Line Painter: OSCAR MEASUREMENT RESULTS: Intervals: Rate: 91 CA: 152 QRSD: 116 QT: 388 QTc: 477 [place]: P: 51 CA: 152 QRS: 12 T: 111 INTERPRETIVE STATEMENTS: Normal sinus rhythm with sinus arrhythmia Anteroseptal infarct, age undetermined ST & T wave abnormality, consider lateral ischemia Abnormal ECG Compared to ECG 06/15/2024 11:41:37 ST (T wave) deviation now present Possible ischemia now present Left-axis deviation no longer present Myocardial infarct finding still present Electronically Signed On 06-24-24 13:37:31 LINK ASSEMBLER by Roland Cuellar
== END 2024-06-24 10:35 ==
LOC: ER 05:33
DX: J15.9 Unspecified bacterial pneumonia (principal); A41.9 Sepsis, unspecified organism; Z11.52 Encounter for screening for COVID-19; J44.9 Chronic obstructive pulmonary disease, unspecified; I50.9 Heart failure, unspecified
CPT/HCPCS: 96365; 96367; 93005; 87040 ×2; 87070; 85025; 80048; 36415; 87205; 85610; 80076; 83605; 85730; 87077; 87186; 84484; 83880; 71045; 94640 ×2; 82805; 96375; 99285; 87811; 36600; 94660; J7614; J0692; J2919; J7050

== ENCOUNTER 2024-09-21 21:54 | Inpatient (IN) | payer OTHER ==
[2024-09-21] MEDS ORDERED: ONDANSETRON 4 MG/2 ML VIAL ONE (22:27)
[2024-09-21] MEDS ORDERED: ALBUTEROL 2.5 MG/3 ML NEB SOL ONE (22:27)
[2024-09-21] MEDS ORDERED: METHYLPREDNISOLONE 125 MG INJ ONE (22:27)
[2024-09-21] MEDS ORDERED: IPRATROPIUM BROM 0.5MG/2.5ML ONE (22:27)
[2024-09-21] MEDS ORDERED: LORazepam 2 MG/ML VIAL ONE (22:28)
--- OUTSIDE RECORDS SUMMARY | 2024-09-21 22:39 | XMS REPORT | Continuity of Care Document ---
Author Name Unknown Address [address] [facility] [address] [place] [address] [facility] Address [address] [facility] [place] [address] Care Team Providers Care Pump Rebuilder Name Role Phone Darius CANNON, Mary Primary Care Physic arnel [phone] WILVER BAKER Attending Clinician Unavaila FUNMILAYO Neal Attending Clinician Unavailab FUNMILAYO Noel Attending Clinician Unavailab marito Mariscal RN, Rosaura Bush Attending Clinician Unavail able INOCENCIO ROMAN Attending Clinician Unavailable Inocencio Roman MD Attending Clinician [phone] Doctor Unassigned, [employer] Attending Clinician U huber Hansen RN, Nakul Garcia Attending Clinician Unavail Jewel Short MD Attending Clinician [phone] Florina Chang MD Attending Clinician [phone] VERA BAUTISTA Attending Clinician UnavailVrea Coulter Attending Clinician [phone] Wilver Baker MD Attending Clinician [phone] Dilcia Mcdonald PA-C Attending Clinician [phone] AWAIS BETHEA Attending Clinician Unavailable AWAIS BETHEA Attending Clinician Unavailable Neema CANNON, Awais Attending Clinician [phone] Pob, [facility] Attending Clinician Unavailabl DILCIA Colin Attending Clinician Unavailable LALIT PEREZ Attending Clinician Unavail able LALIT PEREZ Attending Clinician Unavail able SANCHEZ HOOPER Attending Clinician Unavaila JEWEL Nuñez Attending Clinician Unavailable JEWEL SEXTON Attending Clinician Unavailable Darius CANNON, Mary Attending Clinician EZE SANTIAGO Attending Clinician Unavailabl e Ashish FABRIC LAY OUT WORKER, Eze Meadows Attending Clinician [phone] Arlene Hoffman RN Attending Clinician Unavailab ANGEL LUIS Gary Attending Clinician Unavailabl Hiren Maddox MD Attending Clinician [phone] Angel Luis Rangel MD Attending Clinician [phone] SURENDRA HARRIS Attending Clinician Unavaila fausto Doctor Unassigned, [employer] Attending Clinician U huber Ac MD, Bela Roach Attending Clinician + YESSICA HODGES Attending Clinician Unavailable Yessica Hodges DO Attending Clinician [phone] Pob, [facility] Attending Clinician UnavailClark Espinoza Attending Clinician Unavailable Clark Oliver Attending Clinician [phone] GIRISH HERNADEZ Attending Clinician Unavailabl e [email or web address]_Kadiyala_S Attending Clinician Unavaila fausto Mariscal RN, Rosaura Bush Attending Clinician Unavail able ANA PAULA BERRY Attending Clinician Unavailable ANA PAULA BERRY Attending Clinician Unavailable Brandon Shelton MD Attending Clinician [phone] Ryan Carolina MD Attending Clinician [phone] Isacc Conley MD Attending Clinician [phone] FAHEEM MA Attending Clinician Unavailable Carlie Oconnor MD Attending Clinician [phone] Gurwinder Raymond MD Attending Clinician [phone] Angel Luis Caputo MD Attending Clinician [phone] Kvng Maxwell MD Attending Clinician [phone] Abbe Lewis MD Attending Clinician UnavailABBE Hay Attending Clinician Unavailable Lopez CANNON, [facility] Attending Clinician + [phone] Lalit Perez MD Attending Clinician [phone] ALBERTA OSUNA Attending Clinician Unavailable ALLYSSA BIGGS Attending Clinician Unavailable Vince Thomason DO Attending Clinician [phone] Allyssa Biggs MD Attending Clinician [phone] Provider, [facility] Attending Clinician Unavailable Margareth Cedeno MD Attending Clinician [phone] MARGARETH CEDENO Attending Clinician Unavailable IBIS WARNER Attending Clinician Unavailable Cece Vu Attending Clinician [phone] CECE LAZAR Attending Clinician Unavailable INOCENCIO ROMAN Admitting Clinician Unavailable Inocencio Roman MD Admitting Clinician [phone] FLORINA CHANG Admitting Clinician Unavailable Florina Chang MD Admitting Clinician [phone] VERA BAUTISTA Admitting Clinician UnavailAWAIS Wolf Admitting Clinician Unavailable Awais Bethea MD Admitting Clinician [phone] ANGEL LUIS RANGEL Admitting Clinician UnavailAngel Luis Smith MD Admitting Clinician [phone] YESSICA HODGES Admitting Clinician Unavailable Clark JULIAN Admitting Clinician Unavailable [email or web address]_S Admitting Clinician Unavaila RYAN Dwyer Admitting Clinician Unavailab Kvng Edwards MD Admitting Clinician [phone] KVNG MAXWELL Admitting Clinician Unavailable ALLYSSA BIGGS Admitting Clinician Unavailable Allyssa Biggs MD Admitting Clinician [phone] Payers Payer Name Policy Type Policy Number Effective Date Expirati on Date Source [facility] [id number] 2021 00:00:00 Problems Condition Name Condition Details Condition Category Status Onset Date Resolution Date Last Treatment Date Treating Clinician Comments Source Altered mental status, unspecifie d altered mental status type Altered mental status, unspecifie d altered mental status type Disease Active 05-24 00:00: 00 [facility] Presence of Watchman left atrial appendage closure device Presence of Watchman left atrial appendage closure device Disease Active 05-23 00:00: 00 [facility] Ischemic cerebrovas cular accident (CVA) Ischemic cerebrovas cular accident (CVA) Disease Active 10-21 00:00: 00 [facility] Acute hypoxemic respirator y failure Acute hypoxemic respirator y failure Disease Active 02-10 00:00: 00 [facility] Hypotensio n, unspecifie d hypotensio n type Hypotensio n, unspecifie d hypotensio n type Disease Active 02-02 00:00: 00 [facility] Pulmonary edema Pulmonary edema Disease Active 10-26 00:00: 00 [facility] Acute pulmonary edema Acute pulmonary edema Disease Active 10-26 00:00: 00 [facility] 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 Added automatic ally from request for surgery [id number] [facility] Acute systolic congestive heart failure Acute systolic congestive heart failure Disease Active 09-02 00:00: 00 [facility] Acute left-sided CHF (congestiv e heart failure) Acute left-sided CHF (congestiv e heart failure) Disease Active 09-02 00:00: 00 [facility] Low oxygen saturation Low oxygen saturation Disease Active 11-10 00:00: 00 [facility] Pneumonia due to infectious organism Pneumonia due to infectious organism Disease Active 11-10 00:00: 00 [facility] Pneumonia due to infectious organism Pneumonia due to infectious organism Disease Active 6-26 00:00: 00 [facility] Essential hypertensi on Essential hypertensi on Disease Active 2016-05 00:00: 00 [facility] Acute on chronic diastolic CHF (congestiv e heart failure), NYHA class 3 Acute on chronic diastolic CHF (congestiv e heart failure), NYHA class 3 Disease Active 2016-05 00:00: 00 [facility] Paroxysmal atrial fibrillati on Paroxysmal atrial fibrillati on Disease Active 2016-05 00:00: 00 [facility] Type 2 diabetes mellitus with complicati on, with long-term current use of insulin Type 2 diabetes mellitus with complicati on, with long-term current use of insulin Disease Active 2016-05 00:00: 00 [facility] Type 2 diabetes mellitus with complicati on, with long-term current use of insulin Type 2 diabetes mellitus with complicati on, with long-term current use of insulin Disease Active 2016-05 00:00: 00 [facility] Chest pain Chest pain Disease Active 30 00:00: 00 [facility] Muscle weakness of lower extremity Muscle weakness of lower extremity Disease Active 08-29 00:00: 00 [facility] Abnormal gait Abnormal gait Disease Active 414 00:00: 00 [facility] Left knee pain Left knee pain Disease Active 2-24 00:00: 00 [facility] Left knee pain Left knee pain Disease Active 224 00:00: 00 [facility] Allergies, Adverse Reactions, Alerts Allergy Name Allergy Type Status Severity Reaction(s) Onset Date Inactive Date Treating Clinician Comments Source NO KNOWN ALLERGIE S Drug Class Active [facility] Social History Social Habit Start Date Stop Date Quantity Comments [facility] of [facility] use Cigarette Smoker [facility] History SDOH Alcohol Std Drinks [facility] History SDOH Alcohol Binge [facility] History SDOH Social Connections Get Together [facility] History SDOH Social Connections Spiritism [facility] History SDOH Social Connections Membership [facility] History SDPA Social Connections Meetings [facility] Tobacco use and exposure 2024-06-25 00:00:00 2024-06-25 00:00:00 Smokeless tobacco non-user [facility] Alcoholic beverage intake 2024-06-25 00:00:00 2024-06-25 00:00:00 0 /d [facility] Cigarettes smoked current (pack per day) - Reported 2024-06-25 00:00:00 2024-06-25 00:00:00 [facility] Cigarette pack-years 2024-06-25 00:00:00 2024-06-25 00:00:00 [facility] Tobacco Comment 2024-06-25 00:00:00 2024-06-25 00:00:00 Smoked for 30 years [facility] Alcohol intake 2023-07-12 00:00:00 2023-07-12 00:00:00 0 /d [facility] History SDOH Alcohol Frequency 2022-10-27 00:00:00 2022-10-27 00:00:00 1 [facility] History SDOH Social Connections Phone 2022-10-27 00:00:00 2022-10-27 00:00:00 5 [facility] History SDOH Social Connections Living 2022-10-27 00:00:00 2022-10-27 00:00:00 3 [facility] History SDOH Physical Activity DPW 2022-10-27 00:00:00 2022-10-27 00:00:00 0 [facility] History SDOH Physical Activity MPS 2022-10-27 00:00:00 2022-10-27 00:00:00 0 [facility] History SDOH Financial 2022-10-27 00:00:00 2022-10-27 00:00:00 5 [facility] History SDOH Food Worry 2022-10-27 00:00:00 2022-10-27 00:00:00 1 [facility] History SDOH Food Scarcity 2022-10-27 00:00:00 2022-10-27 00:00:00 1 [facility] History SDOH Transport Med 2022-10-27 00:00:00 2022-10-27 00:00:00 2 [facility] History SDOH Transport Non-Med 2022-10-27 00:00:00 2022-10-27 00:00:00 2 [facility] History SDOH Housing Unable to Pay 2022-10-27 00:00:00 2022-10-27 00:00:00 2 [facility] History SDOH Housing Places Lived 2022-10-27 00:00:00 2022-10-27 00:00:00 1 [facility] History SDOH Housing Homeless Last Year 2022-09-03 00:00:00 2022-09-03 00:00:00 2 [facility] Exposure to SARS-CoV-2 (event) 2022-08-23 00:00:00 2022-09-02 21:35:00 Yes [facility] History of Social function 2018-11-25 00:00:00 2018-11-25 00:00:00 [facility] Sex assigned at 1945 00:00:00 1945 00:00:00 [facility] Smoking Status Start Date Stop Date Source Ex-smoker 2024-06-25 00:00:00 2024-06-25 [facility] Medications Ordered Medication Name Filled Medication Name Start Date Stop Date Current Medication? Ordering Clinician Indication Dosage Frequency Signature (SIG) Comments Components Source fluticasone propionate 50 mcg/actuati on nasal spray 07-05 00:00: 00 Yes 2{spray } Use 2 Sprays in each nostril in the morning. [facility] predniSONE 10 mg tablet 07-05 00:00: 00 07-11 05:59 :00 Yes [id number] 107 Take 2 tablets by mouth daily for 1 day, THEN 1 tablet daily for 4 days. [facility] acetaminoph en 325 mg tablet 17 16:43: 18 Yes 650mg Take 2 tablets by mouth every 6 (six) hours as needed for Temp > 38.5 C. [facility] fenofibrate micronized 67 mg capsule 07-04 16:43: 18 Yes 67mg Take 1 capsule by mouth in the morning. [facility] amoxicillin -clavulanat e 875-125 mg per tablet 07-04 16:43: 14 07-04 00:00 :00 No 1{tbl} Take 1 tablet by mouth in the morning and 1 tablet in the evening. For UTI (06/23/2024- 07/03/2024) [facility] losartan 50 mg tablet 07-04 16:43: 14 07-04 00:00 :00 No 50mg Take 1 tablet by mouth in the morning. [facility] magnesium sulfate in water 2 gram/50 mL (4 %) infusion 2 g 07-04 13:30: 00 07-04 15:34 :00 No 2g 2 g, IV Piggyback, Administer over 60 Minutes, ONCE, 1 dose, On Thu07/04/24 at 0730, Routine [facility] carvediloL 3.125 mg tablet 07-04 00:00: 00 Yes [id number] 6.25mg Take 2 tablets by mouth in the morning and 2 tablets in the evening. Take with meals. [facility] insulin glargine 100 unit/mL injection 07-04 00:00: 00 Yes 24U inject 24 Units under the skin in the morning and 24 Units in the evening. [facility] insulin lispro, human, 100 unit/mL injection 07-04 00:00: 00 Yes inject under the skin 3 (three) times daily with meals and at bedtime. [facility] ascorbic acid, vitamin C, 500 mg tablet 07-04 00:00: 00 Yes [id number] 107 500mg Take 1 tablet by mouth in the morning. [facility] benzonatate 100 mg capsule 07-04 00:00: 00 Yes 100mg Take 1 capsule by mouth in the morning and 1 capsule at noon and 1 capsule in the evening. [facility] codeine-gua ifenesin 10-100 mg/5 mL oral solution 07-04 00:00: 00 Yes [id number] 10mL Take 10 mL by mouth every 12 (twelve) hours as needed for Cough. Indication s: acute pain [facility] gabapentin 300 mg capsule 07-04 00:00: 00 Yes 300mg Take 1 capsule by mouth in the morning and 1 capsule in the evening. [facility] predniSONE (DELTASONE) tablet 20 mg 07-02 15:00: 00 07-06 14:59 :00 Yes 20mg 20 mg, Oral, DAILY, 4 doses, First dose (after last modificati on) on Thu07/02/24 at 0900, Last dose on Thu07/05/24 at 0900, Routine [facility] insulin glargine (LANTUS U-100) injection 15 Units 07-02 03:00: 00 07-04 22:43 :18 No 15U 15 Units, Subcutaneo us, Q24H, First dose (after last modificati on) on Thu07/01/24 at 2100, Until Discontinu ed, Routine [facility] insulin lispro (human) (HumaLOG U-100) injection 5 Units 07-01 17:30: 00 07-04 22:43 :18 No 5U 5 Units, Subcutaneo us, TIDAC, First dose (after last modificati on) on Thu07/01/24 at 1130, Until Discontinu ed, Routine [facility] morphine (2 mg/mL) injection 2 mg 07-01 17:21: 02 07-04 22:43 :18 No 2mg 2 mg, Slow IV Push, Q4HPRN, Starting on Thu07/01/24 at 1121, Until Thu07/04/24 at 1643, Routine, Pain (scale 7-10) [facility] traMADoL (ULTRAM) tablet 50 mg 07-01 17:20: 54 07-04 22:43 :18 No 50mg 50 mg, Oral, Q6HPRN, Starting on Thu07/01/24 at 1120, Until Thu07/04/24 at 1643, Routine, Pain (scale 4-6) [facility] ([facility] tablet 650 mg 07-01 17:20: 34 07-04 22:43 :18 No 650mg 650 mg, Oral, Q6HPRN, Starting on Thu07/01/24 at 1120, Until Thu07/04/24 at 1643, Routine, Pain (scale 1-3), Temp > 38 C [facility] fluticasone propionate 50 mcg/actuati on nasal spray 2 [place] 07-01 17:15: 00 Yes 2{spray } 2 [place], Nasal, DAILY, First dose on Thu07/01/24 at 1115, Until Discontinu ed, Routine [facility] furosemide (LASIX) tablet 20 mg 07-01 15:00: 00 07-04 22:43 :18 No 20mg 20 mg, Oral, DAILY, First dose on Thu07/01/24 at 0900, Until Discontinu ed, Routine [facility] ascorbic acid (vitamin C) (VITAMIN C) tablet 500 mg 06-30 15:00: 00 Yes 500mg 500 mg, Oral, DAILY, First dose on Thu06/30/24 at 0900, Until Discontinu ed, [facility] acetaZOLAMI DE (DIAMOX) tablet 250 mg 06-30 00:00: 00 06-29 23:53 :00 No 250mg 250 mg, Oral, BID AT 0600 - 1800, 1 dose, First dose on Thu06/29/24 at 1800, Routine [facility] furosemide (LASIX) injection 20 mg 06-29 16:00: 00 07-01 02:51 :21 No 20mg 20 mg, Slow IV Push, Q12H, First dose on Thu06/29/24 at 1000, Until Discontinu ed, [facility] oxide (MAG-OX 400) 400 mg (241.3 mg magnesium) tablet 800 mg 06-29 14:00: 00 06-30 14:13 :00 No 800mg 800 mg, Oral, BID, 3 doses, First dose on Thu06/29/24 at 0800, Last dose on Thu06/30/24 at 0800, Routine [facility] insulin lispro (human) (HumaLOG U-100) injection 6 Units 06-29 13:30: 00 07-01 14:58 :05 No 6U 6 Units, Subcutaneo us, TIDAC, First dose (after last modificati on) on Thu06/29/24 at 0730, Until Discontinu ed, Routine [facility] magnesium sulfate in water 2 gram/50 mL (4 %) infusion 2 g 06-29 11:15: 00 06-29 11:35 :00 No 2g 2 g, IV Piggyback, Administer over 60 Minutes, ONCE, 1 dose, On Thu06/29/24 at 0515, Routine [facility] insulin glargine (LANTUS U-100) injection 20 Units 06-29 03:00: 00 07-01 14:58 :05 No 20U 20 Units, Subcutaneo us, Q24H, First dose (after last modificati on) on Thu06/28/24 at 2100, Until Discontinu ed, Routine [facility] ceFEPIme (MAXIPIME) 1,000 mg in NaCl 0.9% (NS) 100 mL MINI-BAG 06-29 00:30: 00 07-01 21:07 :23 No 1000mg 1,000 mg, IV Piggyback, Q8H ABX, 21 doses, First dose on Thu06/28/24 at 1830, Last dose on Thu07/05/24 at 1030, Administer over 4 Hours, 100 mL, Reason for Anti-Infec tive: Documented Infection, Documented Infection Site: Respirator y, Duration of Therapy: 7 days [facility] carvediloL (COREG) tablet 12.5 mg 06-28 06:30: 00 07-04 22:43 :18 No 12.5mg 12.5 mg, Oral, BID MEALS, First dose on Thu06/28/24 at 0030, Until Discontinu ed, [facility]ine [facility] codeine-gua ifenesin (ROBITUSSIN AC) 10-100 mg/5 mL oral solution 10 mL 06-28 06:20: 43 Yes 10mL 10 mL, Oral, [id number], Starting on Thu06/28/24 at 0020, Until Discontinu ed, Routine, Cough [facility] iopamidol (ISOVUE 370-500 mL) injection 83 mL 06-27 22:30: 00 06-27 22:30 :00 No 83mL 83 mL, Intravenou s, ONCE, 1 dose, On Thu06/27/24 at 1630, Routine [facility] magnesium sulfate in water 2 gram/50 mL (4 %) infusion 2 g 06-27 16:45: 00 06-27 17:52 :00 No 2g 2 g, IV Piggyback, Administer over 60 Minutes, ONCE, 1 dose, On Thu06/27/24 at 1045, SYED [facility] benzonatate (TESSALON PERLES) capsule 100 mg 06-27 02:45: 00 Yes 100mg 100 mg, Oral, TID, First dose on Thu06/26/24 at 2045, Until Discontinu ed, Routine [facility] predniSONE (DELTASONE) tablet 40 mg 06-26 15:00: 00 07-02 01:26 :32 No 40mg 40 mg, Oral, DAILY, First dose on Thu06/26/24 at 0900, Until Discontinu ed, Routine [facility] insulin lispro (human) (HumaLOG U-100) injection 4 Units 06-26 13:30: 00 06-29 00:07 :28 No 4U 4 Units, Subcutaneo us, TIDAC, First dose on Thu06/26/24 at 0730, Until Discontinu ed, [facility] glargine (LANTUS U-100) injection 15 Units -09 05:00: 00 06-29 00:07 :28 No 15U 15 Units, Subcutaneo us, Q24H, First dose on 06/25/24 at 2300, Until Discontinu ed, Routine [facility] atorvastati n (LIPITOR) tablet 80 mg 06-26 03:00: 00 07-04 22:43 :18 No 80mg 80 mg, Oral, QHS, First dose on 06/25/24 at 2100, Until Discontinu ed, Routine [facility] ARIPiprazol e (ABILIFY) tablet 2.5 mg 06-25 15:00: 00 07-04 22:43 :18 No 2.5mg 2.5 mg, Oral, DAILY, First dose on 06/25/24 at 0900, Until Discontinu ed, Routine [facility] spironolact one (ALDACTONE) tablet 12.5 mg 06-25 15:00: 00 07-04 22:43 :18 No 12.5mg 12.5 mg, Oral, DAILY, First dose on 06/25/24 at 0900, Until Discontinu ed, Routine [facility] ezetimibe (ZETIA) tablet 10 mg 06-25 15:00: 00 07-04 22:43 :18 No 10mg 10 mg, Oral, DAILY, First dose on 06/25/24 at 0900, Until Discontinu ed, Routine [facility] clopidogreL (PLAVIX) 75 mg tablet 75 mg 06-25 15:00: 00 07-04 22:43 :18 No 75mg 75 mg, Oral, DAILY, First dose on 06/25/24 at 0900, Until Discontinu ed, Routine [facility] aspirin chewable tablet 81 mg 06-25 15:00: 00 07-04 22:43 :18 No 81mg 81 mg, Oral, DAILY, First dose on 06/25/24 at 0900, Until Discontinu ed, Routine [facility] furosemide (LASIX) tablet 20 mg 2 15:00: 00 06-29 15:49 :21 No 20mg 20 mg, Oral, DAILY, First dose on Thu06/25/24 at 0900, Until Discontinu ed, Routine [facility] azithromyci n (ZITHROMAX) tablet 250 mg 06-25 15:00: 00 06-27 14:15 :00 No 250mg 250 mg, Oral, DAILY, 3 doses, First dose on Thu06/25/24 at 0900, Last dose on Thu06/27/24 at 0900, Routine, Reason for Anti-Infec tive: Documented Infection, Documented Infection Site: Respirator y, Duration of Therapy: Other (see Comments) [facility] methylPREDN ISolone sod succ (SOLU-MEDRO L (PF)) injection 40 mg 06-25 15:00: 00 06-25 17:50 :17 No 40mg 40 mg, Intravenou s, DAILY, 4 doses, First dose on Thu06/25/24 at 0900, Last dose on Thu06/28/24 at 0900, 1 mL [facility] DULoxetine (CYMBALTA) capsule 30 mg 06-25 14:00: 00 07-04 22:43 :18 No 30mg 30 mg, Oral, BID, First dose on Thu06/25/24 at 0800, Until Discontinu ed, Routine [facility] pantoprazol e (PROTONIX) EC tablet 40 mg 06-25 12:00: 00 07-04 22:43 :18 No 40mg 40 mg, Oral, QAM-0600, First dose on Thu06/25/24 at 0600, Until Discontinu ed, Routine [facility] cefTRIAXone (ROCEPHIN) 1,000 mg in water for injection, sterile 10 mL IV Push 06-25 05:45: 00 06-28 15:56 :24 No 1000mg 1,000 mg, Intravenou s, Q24H ABX, 7 doses, First dose on Thu06/24/24 at 2345, Last dose on Thu06/30/24 at 2345, 10 mL, Reason for Anti-Infec tive: Documented Infection, Documented Infection Site: Respirator y, Duration of Therapy: Other (see Comments) [facility] guaiFENesin 100 mg/5 mL solution 200 mg 06-25 05:00: 19 07-04 22:43 :18 No 200mg 200 mg, Oral, Q6HPRN, Starting on Thu06/24/24 at 2300, Until Thu07/04/24 at 1643, Routine, Cough [facility] LORazepam (ATIVAN) injection 0.5 mg 06-25 00:23: 27 07-04 22:43 :18 No .5mg 0.5 mg, Slow IV Push, Q6HPRN, Starting on Thu06/24/24 at 1823, Until 07/04/24 at 1643, Routine, Anxiety [facility] magnesium sulfate in water 2 gram/50 mL (4 %) infusion 2 g 06-24 23:15: 00 06-24 23:47 :00 No 2g 2 g, IV Piggyback, Administer over 60 Minutes, ONCE, 1 dose, On Thu06/24/24 at 1715, Routine [facility] enoxaparin (LOVENOX) injection 40 mg 06-24 23:00: 00 07-04 22:43 :18 No 40mg 40 mg, Subcutaneo us, DAILY, First dose on Thu06/24/24 at 1700, Until Discontinu ed, Routine [facility] Sliding Scale Insulin - Lispro (HumaLOG) 06-24 18:00: 00 Yes Subcutaneo us, TID MEALS+HS, First dose on Thu06/24/24 at 1200, Until Discontinu ed, Routine [facility] ipratropium -albuteroL (DUONEB) 0.5 mg-3 mg(2.5 mg base)/3 mL nebulizer solution 3 mL 06-24 18:00: 00 07-04 22:43 :18 No 3mL 3 mL, Inhalation , Q4H, First dose on Thu06/24/24 at 1200, Until Discontinu ed, Routine [facility] glucagon HCL injection 1 mg 06-24 17:51: 03 07-04 22:43 :18 No 1mg [facility] dextrose 50 % in water (D50W) injection 25 mL 2 17:51: 03 07-04 22:43 :18 No 25mL [facility] furosemide 20 mg tablet 06-09 00:00: 00 07-10 05:59 :00 No [id number] 20mg Take 1 tablet by mouth in the morning for 30 days. [facility] insulin lispro, human, 100 unit/mL injection 06-08 00:00: 00 Yes [id number] 5U inject 5 Units under the skin in the morning and 5 Units at noon and 5 Units in the evening. inject before meals. [facility] carvediloL 3.125 mg tablet 06-08 00:00: 00 07-04 00:00 :00 No [id number] 3.125mg Take 1 tablet by mouth in the morning and 1 tablet in the evening. Take with meals. Do all this for 30 days. [facility] guaiFENesin 100 mg/5 mL solution 06-08 00:00: 00 07-04 00:00 :00 No [id number] 200mg Take 10 mL by mouth every 6 (six) hours as needed for Cough. [facility] insulin glargine (LANTUS U-100) injection 15 Units 06-06 02:00: 00 06-08 23:43 :38 No 15U 15 Units, Subcutaneo us, BID, First dose (after last modificati on) on Thu06/05/24 at 2000, Until Discontinu ed, Routine [facility] insulin lispro (human) (HumaLOG U-100) injection [...] Thu06/03/24 at 2000, Until Discontinu ed, Routine [facility] predniSONE (DELTASONE) tablet 20 mg 06-01 15:00: 00 06-04 14:01 :00 No 20mg 20 mg, Oral, DAILY, 4 doses, First dose on Thu06/01/24 at 0900, Last dose on Thu06/04/24 at 0900, Routine [facility] furosemide (LASIX) injection 20 mg 05-31 11:15: 00 05-31 10:46 :00 No 20mg 20 mg, Slow IV Push, ONCE, 1 dose, On Thu05/31/24 at 0515, Routine [facility] methylPREDN ISolone sod succ (SOLU-MEDRO L (PF)) injection 40 mg 05-31 10:13: 00 05-31 10:33 :00 No 40mg 40 mg, Intravenou s, ONCE, 1 dose, On Thu05/31/24 at 0415, 1 mL [facility] NaCl 0.9% (NS) injection 10 mL 05-30 17:05: 38 06-08 23:43 :38 No 10mL 10 mL, Slow IV Push, PRN, Starting on Thu05/30/24 at 1105, Until Thu06/08/24 at 1743, Routine, line maintenanc e [facility] lidocaine 1% (PF) (XYLOCAINE) injection 5 mL 05-30 17:05: 38 06-08 23:43 :38 No 5mL 5 mL, Subcutaneo us, PRN, 1 dose, Starting on Thu05/30/24 at 1105, Until Thu06/08/24 at 1743, Routine, Local anesthesia [facility] carvediloL (COREG) tablet 3.125 mg 05-30 16:45: 00 Yes 3.125mg 3.125 mg, Oral, BID MEALS, First dose (after last modificati on) on Thu05/30/24 at 1045, Until Discontinu ed, Routine [facility] guaiFENesin 100 mg/5 mL solution 200 mg 05-29 18:00: 00 Yes 200mg 200 mg, Oral, Q6H, First dose on Thu05/29/24 at 1200, Until Discontinu ed, Routine [facility] hydralAZINE (APRESOLINE ) injection 10 mg 05-29 05:15: 59 06-08 23:43 :38 No 10mg 10 mg, Slow IV Push, Q4HPRN, Starting on Thu05/28/24 at 2315, Until Thu06/08/24 at 1743, STAT, DBP=>100; SBP=>160 [facility] insulin lispro (human) (HumaLOG U-100) injection 10 Units 05-28 22:30: 00 06-05 17:44 :26 No 10U 10 Units, Subcutaneo us, TIDAC, First dose (after last modificati on) on Thu05/28/24 at 1630, Until Discontinu ed, Routine [facility] methylPREDN ISolone sod succ (SOLU-MEDRO L (PF)) injection 40 mg 05-28 15:00: 00 05-31 19:56 :21 No 40mg 40 mg, Slow IV Push, DAILY, 5 doses, First dose (after last modificati on) on Thu05/28/24 at 0900, Last dose on Thu06/01/24 at 0900, Routine [facility] losartan (COZAAR) tablet 50 mg 05-28 15:00: 00 05-30 16:39 :37 No 50mg 50 mg, Oral, DAILY, First dose (after last modificati on) on Thu05/28/24 at 0900, Until Discontinu ed, Routine [facility] cefTRIAXone (ROCEPHIN) 1,000 mg in water for injection, sterile 10 mL IV Push 05-28 03:00: 00 05-31 02:52 :00 No 1000mg 1,000 mg, Intravenou s, Q24H ABX, 4 doses, First dose on Thu05/27/24 at 2100, Last dose on Thu05/30/24 at 2100, 10 mL, Reason for Anti-Infec tive: Documented Infection, Documented Infection Site: Respirator y, Duration of Therapy: 7 days [facility] insulin glargine (LANTUS U-100) injection 30 [...] 1630, Until Discontinu ed, Routine [facility] losartan (COZAAR) tablet 25 mg 05-27 22:30: 00 05-27 22:30 :00 No 25mg 25 mg, Oral, ONCE, 1 dose, On Thu05/27/24 at 1630, Routine [facility] furosemide (LASIX) tablet 20 mg 05-27 15:00: 00 Yes 20mg 20 mg, Oral, DAILY, First dose on Thu05/27/24 at 0900, Until Discontinu ed, Routine [facility] enoxaparin (LOVENOX) injection 40 mg 05-27 15:00: 00 06-08 23:43 :38 No 40mg 40 mg, Subcutaneo us, DAILY, First dose on Thu05/27/24 at 0900, Until Discontinu ed, Routine [facility] ferrous sulfate tablet 325 mg 05-27 15:00: 00 06-08 23:43 :38 No 325mg 325 mg, Oral, DAILY, First dose on Thu05/27/24 at 0900, Until Discontinu ed, Routine [facility] losartan (COZAAR) tablet 25 mg 05-27 15:00: 00 05-27 22:18 :50 No 25mg 25 mg, Oral, DAILY, First dose on Thu05/27/24 at 0900, Until Discontinu ed, Routine [facility] gabapentin (NEURONTIN) tablet 800 mg 05-27 02:00: 00 06-08 23:43 :38 No 800mg 800 mg, Oral, BID, First dose on Thu05/26/24 at 2000, Until Discontinu ed, Routine [facility] ARIPiprazol e (ABILIFY) tablet 2.5 mg 05-27 02:00: 00 06-08 23:43 :38 No 2.5mg 2.5 mg, Oral, BID, First dose on Thu05/26/24 at 1999, Until Discontinu ed, Routine [facility] magnesium oxide (MAG-OX 400) tablet 400 mg 05-27 02:00: 00 06-08 23:43 :38 No 400mg 400 mg, Oral, BID, First dose on Thu05/26/24 at 2000, Until Discontinu ed, Routine [facility] insulin glargine (LANTUS U-100) injection 25 Units 05-27 02:00: 00 05-27 23:03 :24 No 25U 25 Units, Subcutaneo us, BID, First dose (after last modificati on) on Thu05/26/24 at 1999, Until Discontinu ed, Routine [facility] insulin lispro (human) (HumaLOG U-100) injection 7 Units 05-26 22:30: 00 05-27 21:36 :16 No 7U 7 Units, Subcutaneo us, TIDAC, First dose (after last modificati on) on Thu05/26/24 at 1630, Until Discontinu ed, Routine [facility] mupirocin (BACTROBAN OINT) 2 % oinintment 05-26 17:30: 00 06-08 23:43 :38 No [facility] fluconazole (DIFLUCAN) tablet 150 mg 05-26 17:30: 00 05-26 17:20 :00 No 150mg 150 mg, Oral, ONCE, 1 dose, On Thu05/26/24 at 1130, SYED, Reason for Anti-Infec tive: Documented Infection, Documented Infection Site: Other, Other site: Vaginal, Duration of Therapy: Other (see Comments) [facility] azithromyci n (ZITHROMAX) tablet 500 mg 05-26 15:00: 00 05-27 14:41 :00 No 500mg 500 mg, Oral, DAILY, 2 doses, First dose on Thu05/26/24 at 0900, Last dose on Thu05/27/24 at 0900, Routine, Reason for Anti-Infec tive: Documented Infection, Documented Infection Site: Respirator y, Duration of Therapy: Other (see Comments) [facility] insulin lispro (human) (HumaLOG U-100) injection 3 Units 05-26 13:30: 00 05-26 19:27 :37 No 3U 3 Units, Subcutaneo us, TIDAC, First dose on Thu05/26/24 at 0730, Until Discontinu ed, Routine [facility] atorvastati n (LIPITOR) tablet 80 mg 05-26 03:00: 00 06-08 23:43 :38 No 80mg 80 mg, Oral, QHS, First dose on Thu05/25/24 at 2100, Until Discontinu ed, Routine [facility] cefTRIAXone (ROCEPHIN) 1,000 mg in water [...] Respirator y, Duration of therapy: 5 days [facility] Sliding Scale Insulin - Lispro (HumaLOG) 05-26 03:00: 00 05-27 21:36 :16 No Subcutaneo us, TID MEALS+HS, First dose on Thu05/25/24 at 2100, Until Discontinu ed, Routine [facility] insulin glargine (LANTUS U-100) injection 20 Units 05-26 03:00: 00 05-26 19:27 :37 No 20U 20 Units, Subcutaneo us, QHS, First dose (after last modificati on) on Thu05/25/24 at 2100, Until Discontinu ed, Routine [facility] methylPREDN ISolone sod succ (SOLU-MEDRO L (PF)) injection 40 mg 05-25 15:45: 00 05-27 16:14 :56 No 40mg 40 mg, Slow IV Push, BID, First dose (after last modificati on) on Thu05/25/24 at 0945, Until Discontinu ed, Routine [facility] spironolact one (ALDACTONE) tablet 12.5 mg 05-25 15:00: 00 06-08 23:43 :38 No 12.5mg 12.5 mg, Oral, DAILY, First dose on Thu05/25/24 at 0900, Until Discontinu ed, Routine [facility] ezetimibe (ZETIA) tablet 10 mg 05-25 15:00: 00 06-08 23:43 :38 No 10mg 10 mg, Oral, DAILY, First dose on Thu05/25/24 at 0900, Until Discontinu ed, Routine [facility] clopidogreL (PLAVIX) 75 mg tablet 75 mg 05-25 15:00: 00 06-08 23:43 :38 No 75mg 75 mg, Oral, DAILY, First dose on Thu05/25/24 at 0900, Until Discontinu ed, Routine [facility] aspirin chewable tablet 81 mg 05-25 15:00: 00 06-08 23:43 :38 No 81mg 81 mg, Oral, DAILY, First dose on Thu05/25/24 at 0900, Until Discontinu ed, Routine [facility] enoxaparin (LOVENOX) injection 40 mg 05-25 15:00: 00 05-27 00:06 :23 No 40mg 40 mg, Subcutaneo us, DAILY, First dose on Thu05/25/24 at 0900, Until Discontinu ed, Routine [facility] DULoxetine (CYMBALTA) capsule 30 mg 05-25 14:00: 00 06-08 23:43 :38 No 30mg 30 mg, Oral, BID, First dose on Thu05/25/24 at 0800, Until Discontinu ed, Routine [facility] nystatin (MYCOSTATIN ) cream 05-25 14:00: 00 06-08 23:43 :38 No Topical, BID, First dose on Thu05/25/24 at 0800, Until Discontinu ed, Routine [facility] carvediloL (COREG) tablet 6.25 mg 05-25 14:00: 00 05-30 16:39 :37 No 6.25mg 6.25 mg, Oral, BID MEALS, First dose on Thu05/25/24 at 0800, Until Discontinu ed, Routine [facility] ipratropium -albuteroL (DUONEB) 0.5 mg-3 mg(2.5 mg base)/3 mL nebulizer solution 3 mL 05-25 14:00: 00 05-27 20:10 :57 No 3mL 3 mL, Inhalation , QID, First dose on Thu05/25/24 at 0800, Until Discontinu ed, Routine [facility] Sliding Scale Insulin-Reg ular 05-25 13:30: 00 05-25 23:15 :30 No Subcutaneo us, AC+HS, First dose on Thu05/25/24 at 0730, Until Discontinu ed, Routine [facility] glucagon HCL injection 1 mg 05-25 13:05: 32 06-08 23:43 :38 No 1mg [facility] dextrose 50 % in water (D50W) injection 25 mL 05-25 13:05: 32 06-08 23:43 :38 No 25mL [facility] codeine-gua ifenesin (ROBITUSSIN AC) 10-100 mg/5 mL [...] Thu06/08/24 at 1743, Routine, Pain (scale 4-6) [facility] ipratropium -albuteroL (DUONEB) 0.5 mg-3 mg(2.5 mg base)/3 mL nebulizer solution 3 mL 05-25 08:30: 39 06-08 23:43 :38 No 3mL 3 mL, Inhalation , QIDPRN, Starting on Thu05/25/24 at 0230, Until Thu06/08/24 at 1743, Routine, Wheezing, Shortness of Breath, Bronchospa sm, Chest tightness [facility] azithromyci n (ZITHROMAX) 500 mg in NaCl 0.9% (NS) 250 mL VIAL-MATE IV piggyback 05-25 05:45: 00 05-25 08:45 :00 No 500mg 500 mg, IV Piggyback, ONCE, 1 dose, On Thu05/24/24 at 2345, Administer over 60 Minutes, 250 mL, Reason for Anti-Infec tive: Documented Infection, Documented Infection Site: Respirator y, Duration of Therapy: Once (ED) [facility] acetaminoph en (TYLENOL) tablet 650 mg 05-25 05:09: 08 06-08 23:43 :38 No 650mg 650 mg, Oral, Q6HPRN, Starting on Thu05/24/24 at 2309, Until Thu06/08/24 at 1743, Routine, Pain (scale 1-3) [facility] ipratropium -albuteroL (DUONEB) 0.5 mg-3 mg(2.5 mg base)/3 mL nebulizer solution 3 mL 05-25 04:45: 00 05-25 03:50 :00 No 3mL 3 mL, Inhalation , ONCE, 1 dose, On Thu05/24/24 at 2245, [facility] succ (SOLU-MEDRO L) injection 125 mg 05-25 03:50: 00 05-25 03:50 :00 No 125mg 125 mg, Intravenou s, ONCE, 1 dose, On Thu05/24/24 at 2200, 2 mL [facility] ipratropium -albuteroL (DUONEB) 0.5 mg-3 mg(2.5 mg base)/3 mL nebulizer solution 3 mL 05-25 03:06: 00 05-25 03:09 :00 No 3mL 3 mL, Inhalation , ONCE, 1 dose, On Thu05/24/24 at 2115, [facility] cefTR[facility]Xone (ROCEPHIN) 1,000 mg in water for injection, sterile 10 mL IV Push 05-25 03:00: 00 05-25 02:58 :00 No 1000mg 1,000 mg, Intravenou s, ONCE, 1 dose, On Thu05/24/24 at 2100, 10 mL, Reason for Anti-Infec tive: Documented Infection, Documented Infection Site: Urine, Duration of Therapy: Once (ED) [facility] clopidogrel 75 mg tablet 2023-05 00:00: 00 Yes mg [facility] ezetimibe 10 mg tablet 2023-05 00:00: 00 Yes mg [facility] iopamidol (ISOVUE 370-500 mL) injection 85 mL 2023-05 22:00: 00 05-05 21:04 :00 No [id number] 85mL 85 mL, Intravenou s, ONCE, 1 dose, On Thu05/05/24 at 1600, Routine [facility] losartan 25 mg tablet 2023-05 00:00: 00 Yes mg [facility] nystatin 100,000 unit/gram topical powder 2023-05 00:00: 00 Yes 1unit/g milad [facility] clopidogreL 75 mg tablet 2023-05 00:00: 00 Yes [id number] 75mg Take 1 tablet by mouth in the morning. [facility] Tresiba FlexTouch U-100 insulin 100 unit/mL (3 mL) subcutaneou s pen 2023-05 00:00: 00 Yes (3 mL) [facility] Basaglar KwikPen U-100 Insulin 100 unit/mL (3 mL) subcutaneou s 2023-05 00:00: 00 Yes (3 mL) [facility] duloxetine 60 mg capsule,del ayed release 2023-05 00:00: 00 Yes mg [facility] Abilify 5 mg tablet 2023-05 00:00: 00 Yes 5mg [facility] metformin 1,000 mg tablet 2023-05 00:00: 00 Yes 1mg [facility] magnesium oxide 400 mg (241.3 mg magnesium) tablet 2023-05 00:00: 00 Yes 400mg Take 1 tablet by mouth in the morning and 1 tablet in the evening. [facility] lactated ringers IV infusion 1,000 mL 2023-05 14:45: 00 03-10 21:41 :04 No 1000mL at 75 mL/hr, 1,000 mL, IV Infusion, CONTINUOUS , Starting on Mendy 03/10/24 at 0945, Until Mendy 03/10/24 at 1641, Routine, PACU [facility] ondansetron (ZOFRAN (PF)) injection 4 mg 2023-05 14:42: 58 03-10 21:41 :04 No 4mg 4 mg, Slow IV Push, PRN, 1 dose, Starting on Mendy 03/10/24 at 0942, Until Mendy 03/10/24 at 1641, Routine, Nausea and Vomiting (N/V), PACU [facility] aspirin 81 mg chewable tablet 2023-05 14:40: 33 Yes 81mg Take 1 tablet by mouth in the morning. [facility] iopamidol (ISOVUE-370 ) injection 2023-05 14:10: 00 03-10 14:37 :27 No ONCE INTRA PROCEDURE, Starting on Mendy 03/10/24 at 0910, Until Mendy 03/10/24 at 0937, Routine, CV Intraproce dure [facility] ezetimibe 10 mg tablet 2023-05 00:00: 00 Yes [id number] 10mg Take 1 tablet by mouth in the morning. [facility] atorvastati n (LIPITOR) 80 mg tablet 2023-05 00:00: 00 03-04 00:00 :00 No [id number] 80mg Take 1 tablet by mouth at bedtime. [facility] pantoprazol e 40 mg tablet,norm yed release 2023-05 00:00: 00 Yes mg [facility] fenofibrate micronized 134 mg capsule 2023-05 00:00: 00 Yes mg [facility] gabapentin 800 mg tablet 2023-05 00:00: 00 Yes mg [facility] pantoprazol e 40 mg tablet,norm yed release 2023-05 00:00: 00 Yes mg [facility] ferrous sulfate 325 mg (65 mg iron) tablet,norm yed release 02-10 00:00: 00 Yes (65 mg iron) [facility] duloxetine 60 mg capsule,del ayed release 02-01 00:00: 00 Yes mg [facility] clopidogrel 75 mg tablet 02-01 00:00: 00 Yes mg [facility] ezetimibe 10 mg tablet 02-01 00:00: 00 Yes mg [facility] Abilify 5 mg tablet 02-01 00:00: 00 Yes 5mg [facility] furosemide 40 mg tablet 9-11 00:00: 00 Yes 1mg [facility] duloxetine 60 mg capsule,del ayed release 01-14 00:00: 00 Yes mg [facility] Tresiba FlexTouch U-100 insulin 100 unit/mL (3 mL) subcutane s pen 01-14 00:00: 00 Yes (3 mL) [facility] furosemide 40 mg tablet 01-14 00:00: 00 Yes 1mg [facility] furosemide 40 mg tablet 01-08 00:00: 00 Yes mg [facility] Basaglar KwikPen U-100 Insulin 100 unit/mL (3 mL) subcutane s 01-08 00:00: 00 Yes (3 mL) [facility] insulin glargine (U-300) conc. 300 unit/mL (1.5 mL) [facility] 01-08 00:00: 00 Yes (1.5 mL) [facility] insulin regular human (HUMULIN R) injection 4 Units 12-29 22:00: 00 12-29 20:58 :00 No 4U 4 Units, Slow IV Push, ONCE, 1 dose, On Thu12/30/23 at 1700, STAT, Indication for insulin: Hyperglyce [facility] insulin regular human (HUMULIN R) injection 8 Units 12-29 21:00: 00 12-29 19:59 :00 No 8U 8 Units, Slow IV Push, ONCE, 1 dose, On Thu12/30/23 at 1600, STAT, Indication for insulin: Hyperglyce [facility] insulin regular human (HUMULIN R) injection 6 Units 12-29 20:00: 00 12-29 19:01 :00 No 6U 6 Units, Slow IV Push, ONCE, 1 dose, On Thu12/30/23 at 1500, STAT, Indication for insulin: Hyperglyce [facility] NaCl 0.9% (NS) bolus infusion 1,000 mL 12-29 20:00: 00 12-29 21:50 :00 No 1000mL at 999 mL/hr, 1,000 mL, IV Infusion, ONCE, 1 dose, On Thu12/30/23 at 1500, STAT [facility] metformin 1,000 mg tablet 12-24 00:00: [...] 10-26 00:00: 00 11-26 04:59 :00 No [id number] 67mg Take 1 capsule by mouth in the morning for 30 days. [facility] GABAPENTIN ORAL 10-25 17:14: 55 Yes 800mg Take 800 mg by mouth 3 (three) times daily. [facility] metFORMIN (GLUCOPHAGE ) 1,000 mg tablet 10-25 17:14: 55 Yes 1000mg Take 1 tablet by mouth in the morning and 1 tablet in the evening. Take with meals. [facility] BIOTIN ORAL 10-25 17:14: 07-04 00:00 :00 No 2000mg Take 2,000 mg by mouth daily. [facility] potassium chloride (K-DUR) 10 mEq CR tablet 10-25 17:14: 06-08 00:00 :00 No 20meq Take 2 tablets by mouth in the morning. [facility] tolterodine LA (DETROL LA) 4 mg 24 hr capsule 10-25 17:14: 06-08 00:00 :00 No 4mg Take 1 capsule by mouth in the morning. [facility] Fentanyl, Bulk, 100 % Powd 10-25 17:14: 06-08 00:00 :00 No [facility] diazePAM 5 mg tablet 10-25 17:1406-08 00:00 :00 No (Schedule IV Drug) TAKE 1 TABLET BY MOUTH EVERY EVENING [facility] raloxifene 60 mg tablet 10-25 17:14: 06-08 00:00 :00 No 1 tablet [facility] Insulin Detemir (LEVEMIR FLEXPEN) 100 unit/mL (3 mL) injection 10-25 17:14: 06-08 00:00 :00 No inject under the skin. [facility] ezetimibe (ZETIA) 10 mg tablet 10-25 17:14: 03-04 00:00 :00 No 10mg Take 1 tablet by mouth in the morning. [facility] Fenofibrate 150 mg capsule 10-25 10:40: 23 10-25 00:00 :00 No 150mg Take 1 capsule by mouth in the morning. [facility] losartan 25 mg tablet 10-25 00:00: 00 06-08 00:00 :00 No [id number] 50mg Take 2 tablets by mouth in the morning. [facility] atorvastati n 80 mg tablet 10-25 00:00: 00 11-25 04:59 :00 No [id number] 80mg Take 1 tablet by mouth at bedtime for 30 days. [facility] NIFEdipine ER 30 mg tablet 10-25 00:00: 00 11-25 04:59 :00 No [id number] 30mg Take 1 tablet by mouth in the morning for 30 days. [facility] cefdinir 300 mg capsule 10-25 00:00: 00 11-04 04:59 :00 No [id number] 300mg Take 1 capsule by mouth every 12 (twelve) hours for 9 days. [facility] cefTRIAXone (ROCEPHIN) 1,000 mg in NaCl 0.9% (NS) 100 mL MINI-BAG 10-24 15:30: 00 10-31 15:29 :00 No 1000mg 1,000 mg, IV Piggyback, Q24H ABX, 7 doses, First dose on Thu10/25/23 at 1030, Last dose on Thu10/31/23 at 1030, Administer over 30 Minutes, 100 mL, Reason for Anti-Infec tive: Documented Infection, Documented Infection Site: Urine, Duration of Therapy: 7 days [facility] furosemide (LASIX) tablet 40 mg 10-24 14:00: 00 Yes 40mg 40 mg, Oral, DAILY, First dose (after last modificati on) on Thu10/25/23 at 0900, Until Discontinu ed, Routine [facility] insulin glargine (LANTUS U-100) injection 25 Units 10-23 01:00: 00 Yes 25U 25 Units, Subcutaneo us, Q12H, First dose (after last modificati on) on Thu10/23/23 at 2000, Until Discontinu ed, Routine [facility] Sliding Scale Insulin-Reg ular 10-22 21:30: 00 Yes Subcutaneo us, AC+HS, First dose on Thu10/23/23 at 1630, Until Discontinu ed, Routine [facility] insulin regular human (HUMULIN R) injection 8 Units 10-22 19:00: 00 10-22 18:22 :00 No 8U 8 Units, Subcutaneo us, ONCE, 1 dose, On Thu10/23/23 at 1400, SYED, Indication for insulin: Hyperglyce roby [facility] dextrose 50 % in water (D50W) injection 25 mL 10-22 16:50: 45 Yes 25mL 25 mL, Slow IV Push, PRN, Starting on Thu10/23/23 at 1150, Until Discontinu ed, SYED, Blood Glucose < or = 70 mg/dL and patient is NPO, unable to swallow or has mental status changes. [facility] clopidogreL (PLAVIX) 75 mg tablet 75 mg 10-22 14:00: 00 Yes 75mg 75 mg, Oral, DAILY, First dose on Thu10/23/23 at 0900, Until Discontinu ed, Routine, receiving team member approving Restricted medication : ANGEL LUIS RANGEL [facility] piperacilli n-tazobacta m (ZOSYN) 3.375 g [...] Respirator y, Duration of Therapy: Once (ED) [facility] methylPREDN ISolone sod succ (SOLU-MEDRO L (PF)) injection 40 mg 10-22 10:15: 00 10-22 10:01 :00 No 40mg 40 mg, Intravenou s, ONCE, 1 dose, On Thu10/23/23 at 0515, 1 mL [facility] clonazePAM (KLONOPIN) tablet 1 mg 10-22 02:00: 00 Yes 1mg 1 mg, Oral, QHS, First dose on Thu10/22/23 at 2100, Until Discontinu ed, Routine [facility] atorvastati n (LIPITOR) tablet 80 mg 10-22 02:00: 00 Yes 80mg 80 mg, Oral, QHS, First dose on Thu10/22/23 at 2100, Until Discontinu ed, Routine [facility] acetaminoph en-codeine (TYLENOL #3) 300-30 mg tablet 1 tablet 10-21 23:25: 11 Yes 1{tbl} 1 tablet, Oral, Q4HPRN, Starting on Thu10/22/23 at 1825, Until Discontinu ed, Routine, Pain (scale 7-10) [facility] traMADoL (ULTRAM) tablet 50 mg 10-21 23:24: 49 Yes 50mg 50 mg, Oral, Q6HPRN, Starting on Thu10/22/23 at 1824, Until Discontinu ed, Routine, Pain (scale 4-6) [facility] enoxaparin (LOVENOX) injection 40 mg 10-21 22:00: 00 Yes 40mg 40 mg, Subcutaneo us, DAILY, First dose on Thu10/22/23 at 1700, Until Discontinu ed, Routine [facility] Saline Bubble Study 10-21 17:29: 42 Yes [id number] 6mL 6 mL, Injection, SEE-INSTRU CTIONS, Starting [...] Thu10/22/23 at 0900, Until Discontinu ed [facility] pantoprazol e (PROTONIX) EC tablet 40 mg 10-21 14:00: 00 Yes 40mg 40 mg, Oral, DAILY, First dose on Thu10/22/23 at 0900, Until Discontinu ed, Routine [facility] carvediloL (COREG) tablet 6.25 mg 10-21 13:43: 06 Yes 6.25mg 6.25 mg, Oral, BID MEALS, First dose on Thu10/22/23 at 1700, Until Discontinu ed, Routine [facility] insulin glargine (LANTUS U-100) injection 15 Units 10-21 13:21: 58 10-22 18:09 :16 No 15U 15 Units, Subcutaneo us, Q12H, First dose on Thu10/22/23 at 1999, Until Discontinu ed, Routine [facility] furosemide (LASIX) tablet 40 mg 10-21 13:18: 54 10-23 14:18 :52 No 40mg 40 mg, Oral, BID, First dose on Thu10/22/23 at 1999, Until Discontinu ed, Routine [facility] acetaminoph en (TYLENOL) tablet 650 mg 10-21 13:00: 23 Yes 650mg 650 mg, Oral, Q6HPRN, Starting on Thu10/22/23 at 0800, Until Discontinu ed, Routine, Temp > 38 C, headache [facility] DULoxetine (CYMBALTA) capsule 30 mg 10-21 13:00: 00 Yes 30mg 30 mg, Oral, BID, First dose on Thu10/22/23 at 0800, Until Discontinu ed, Routine [facility] losartan (COZAAR) tablet 50 mg 10-21 13:00: 00 Yes 50mg 50 mg, Oral, BID, First dose on Thu10/22/23 at 0800, Until Discontinu ed, Routine [facility] Sliding Scale Insulin-Reg ular 10-21 12:30: 00 10-22 16:50 :35 No Subcutaneo us, AC+HS, First dose on Thu10/22/23 at 0730, Until Discontinu ed, Routine [facility] glucagon (GLUCAGEN DIAGNOSTIC KIT) injection 1 mg 10-21 11:03: 13 Yes 1mg 1 mg, Intramuscu lar, PRN, Starting on Thu10/22/23 at 0603, Until Discontinu ed, SYED, Blood Glucose < or = 70 mg/dL and patient is NPO, unable to swallow or has mental changes. [facility] [facility] NIFEdipine ER tablet 30 mg 10-21 11:00: 00 Yes 30mg 30 mg, Oral, BID AT 0600 - 1800, First dose on Thu10/22/23 at 0600, Until Discontinu ed, Routine [facility] aspirin chewable tablet 81 mg 10-21 06:45: 00 10-21 05:59 :00 No 81mg 81 mg, Oral, ONCE NOW, 1 dose, On Thu10/22/23 at 0145, SYED [facility] piperacilli n-tazobacta m (ZOSYN) 3.375 g in NaCl 0.9% (NS) 100 mL MINI-BAG 10-21 05:00: 00 10-21 05:35 :00 No 3.375g 3.375 g, IV Piggyback, ONCE, 1 dose, On Thu10/22/23 at 0000, Administer over 30 Minutes, 100 mL, Reason for Anti-Infec tive: Documented Infection, Documented Infection Site: Urine, Duration of Therapy: Once (ED) [facility] NaCl 0.9% (NS) bolus infusion 1,000 mL 10-21 04:00: 00 10-21 03:34 :00 No 1000mL at 999 mL/hr, 1,000 mL, IV Piggyback, ONCE, 1 dose, On Thu10/21/23 at 2300, STAT [facility] duloxetine 60 mg capsule,del ayed release 10-18 00:00: 00 Yes mg Surendra White pantoprazol e 40 mg tablet,norm yed release 10-07 00:00: 00 Yes mg Surendra White FARXIGA 10 MG 09-20 00:00: 00 Yes Surendra White dapaglifloz in propanediol (FARXIGA) 10 mg tablet 09-20 00:00: 00 10-21 00:00 :00 No [id number] 10mg Take 1 tablet by mouth every morning. PLS SCHEDULE FOLLOW UP WITH PROVIDER Kylah schofield of [facility] Abilify 5 mg tablet 09-16 00:00: 00 Yes 5mg Surendra White ARIPIPRAZOL E 5 MG 09-16 00:00: 00 Yes 5 Surendra White ezetimibe 10 mg tablet 09-13 00:00: 00 Yes mg Surendra White insulin glargine (U-300) conc. 300 unit/mL (1.5 mL) subcutaneou s pen 09-04 00:00: 00 Yes (1.5 mL) Surendra White furosemide 40 mg tablet 08-30 00:00: 00 Yes mg Surendra White Farxiga 10 mg tablet 08-21 00:00: 00 Yes mg Surendra White carvedilol 12.5 mg tablet 08-09 00:00: 00 Yes mg Surendra White losartan 25 mg tablet 08-09 00:00: 00 Yes mg Surendra White pantoprazol e 40 mg tablet,norm yed release - 00:00: 00 Yes mg Surendra White metformin 1,000 mg tablet 08-05 00:00: 00 Yes 1mg Surendra White TAKE 1 TABLET BY MOUTH TWICE A DAY 08-01 00:00: 00 Yes 40 Surendra White duloxetine 60 mg capsule,del ayed release - 00:00: 00 Yes mg Surendra White TAKE 1 TABLET DAILY. 07-14 00:00: 00 Yes 40 Surendra White TAKE 1 TABLET TWICE A DAY 07-14 00:00: 00 Yes 125 Surendra White iopamidol (ISOVUE 370-500 mL) injection 100 mL 07-10 03:15: 00 07-10 03:15 :00 No [id number] 100mL 100 mL, Intravenou s, ONCE, 1 dose, On Mendy 07/09/23 at 2115, Routine [facility] pantoprazol e (PROTONIX) 80 mg in NaCl 0.9% (NS) 20 mL syringe 07-10 02:00: 00 07-10 01:28 :00 No 80mg 80 mg, IV Push, ONCE, 1 dose, On [facility] 07/09/23 at 2000, Administer over 2 Minutes, 20 mL [facility] TAKE 1 DAILY 07-10 00:00: 00 Yes 60 Surendra White ONDANSETRON ODT 4 MG 07-09 00:00: 00 Yes Surendra White ondansetron 4 mg disintegrat ing tablet 07-09 00:00: 00 06-08 00:00 :00 No [id number] 4mg Take 1 tablet by mouth every 8 (eight) hours as needed for Nausea and Vomiting (N/V). [facility] aripiprazol e 5 mg tablet 06-29 00:00: 00 Yes mg Surendra White ezetimibe 10 mg tablet 06-18 00:00: 00 Yes mg Surendra White INJECT 30 UNITS IN AM AND 25 UNITS IN PM 06-18 00:00: 00 Yes 300 Surendra White HALF TABLET Q AM 06-16 00:00: 00 Yes 25 Surendra White clopidogrel 75 mg tablet 06-15 00:00: 00 Yes mg Surendra White fenofibrate [...] 1 dose, On Thu04/01/23 at 1830, Routine [facility] furosemide (LASIX) injection 40 mg 2022-05 22:30: 00 04-01 22:32 :00 No 40mg 40 mg, IV Push, ONCE, 1 dose, On Thu04/01/23 at 1630, SYED [facility] potassium chloride (K-DUR) 10 mEq CR tablet 2022-05 18:22: 12 Yes 20meq Take 20 mEq by mouth daily. [facility] POT CL MICRO 20MEQ ER 2022-05 00:00: 00 Yes Surendra White KCL 20 mEq tablet 2022-05 00:00: 00 04-05 05:59 :00 No [id number] 20meq Take 1 tablet by mouth in the morning for 3 days. [facility] TAKE 1 TABLET DAILY 2022-05 00:00: 00 Yes Surendra White TAKE 1 TABLET TWICE A DAY 2022-05 00:00: 00 09-29 00:00 :00 No 125 Surendra White TAKE 1 TABLET TWICE DAILY. 2022-05 00:00: 00 09-29 00:00 :00 No 40 Surendra White GABAPENTIN ORAL 2022-05 13:47: 11 Yes 800mg Take 800 mg by mouth 3 (three) times daily. [facility] metFORMIN (GLUCOPHAGE ) 1,000 mg tablet 2022-05 13:47: 11 Yes 1000mg Take 1 tablet by mouth in the morning and 1 tablet in the evening. Take with meals. [facility] ezetimibe (ZETIA) 10 mg tablet 2022-05 13:47: 11 Yes 10mg Take 1 tablet by mouth in the morning. [facility] Fenofibrate 150 mg capsule 2022-05 13:47: 11 Yes 150mg Take 1 capsule by mouth in the morning. [facility] Insulin Detemir (LEVEMIR FLEXPEN) 100 unit/mL (3 mL) injection 2022-05 13:47: 11 Yes inject under the skin. [facility] dapaglifloz in propanediol (FARXIGA) 10 mg tablet 2022-05 00:00: 00 Yes [id number] 10mg Take 1 tablet by mouth in the morning. [facility] TAKE 1 TABLET BY MOUTH EVERY [...] Yes 25 Surendra White LOSARTAN 25MG 2022-05 0 00:00: 00 Yes Surendra White BIOTIN ORAL 2022-05 15:53: 43 Yes 2000mg Take 2,000 mg by mouth daily. [facility] GABAPENTIN ORAL 2022-05 15:53: 43 Yes 800mg Take 800 mg by mouth 3 (three) times daily. [facility] metFORMIN (GLUCOPHAGE ) 1,000 mg tablet 2022-05 15:53: 43 Yes 1000mg Take 1 tablet by mouth in the morning and 1 tablet in the evening. Take with meals. [facility] potassium chloride (K-DUR) 10 mEq CR tablet 2022-05 15:53: 43 Yes 20meq Take 20 mEq by mouth daily. [facility] tolterodine LA (DETROL LA) 4 mg 24 hr capsule 2022-05 15:53: 43 Yes 4mg Take 4 mg by mouth daily. [facility] ezetimibe (ZETIA) 10 mg tablet 2022-05 15:53: 43 Yes 10mg Take 1 tablet by mouth in the morning. [facility] Fentanyl, Bulk, 100 % Powd 2022-05 15:53: 43 Yes [facility] diazePAM 5 mg tablet 2022-05 15:53: 43 Yes (Schedule IV Drug) TAKE 1 TABLET BY MOUTH EVERY EVENING [facility] Fenofibrate 150 mg capsule 2022-05 15:53: 43 Yes 150mg Take 1 capsule by mouth in the morning. [facility] raloxifene 60 mg tablet 2022-05 15:53: 43 Yes 1 tablet [facility] Insulin Detemir (LEVEMIR FLEXPEN) 100 unit/mL (3 mL) injection 2022-05 15:53: 43 Yes inject under the skin. [facility] Lidocaine (LIDOCARE) 4 % patch 1 Patch 2022-05 18:00: 00 02-17 05:33 :00 No 1{patch } 1 Patch, Topical, Administer over 12 Hours, ONCE, 1 dose, On Thu02/16/23 at 1300, Routine [facility] Sliding Scale Insulin - Lispro (HumaLOG) 2022-05 17:00: 00 Yes Subcutaneo us, TID MEALS+HS, First dose (after last modificati on) on Thu02/16/23 at 1200, Until Discontinu ed, Routine [facility] losartan (COZAAR) tablet 25 mg 2022-05 16:15: 00 Yes 25mg 25 mg, Oral, DAILY, First dose on Thu02/16/23 at 1115, Until Discontinu ed, Routine [facility] BIOTIN ORAL 2022-05 11:39: 35 Yes 2000mg Take 2,000 mg by mouth daily. [facility] GABAPENTIN ORAL 2022-05 11:39: 35 Yes 800mg Take 800 mg by mouth 3 (three) times daily. [facility] metFORMIN (GLUCOPHAGE ) 1,000 mg tablet 2022-05 11:39: 35 Yes 1000mg Take 1 tablet by mouth in the morning and 1 tablet in the evening. Take with meals. [facility] potassium chloride (K-DUR) 10 mEq CR tablet 2022-05 11:39: 35 Yes 20meq Take 20 mEq by mouth daily. [facility] tolterodine LA (DETROL LA) 4 mg 24 hr capsule 2022-05 11:39: 35 Yes 4mg Take 4 mg by mouth daily. [facility] ezetimibe (ZETIA) 10 mg tablet 2022-05 11:39: 35 Yes 10mg Take 1 tablet by mouth in the morning. [facility] Fentanyl, Bulk, 100 % Powd 2022-05 11:39: 35 Yes [facility] diazePAM 5 mg tablet 2022-05 11:39: 35 Yes (Schedule IV Drug) TAKE 1 TABLET BY MOUTH EVERY EVENING [facility] Fenofibrate 150 mg capsule 2022-05 11:39: 35 Yes 150mg Take 1 capsule by mouth in the morning. [facility] raloxifene 60 mg tablet 2022-05 11:39: 35 Yes 1 tablet [facility] Insulin Detemir (LEVEMIR FLEXPEN) 100 unit/mL (3 mL) injection 2022-05 11:39: 35 Yes inject under the skin. [facility] furosemide (LASIX) tablet 40 mg 2022-05 01:00: 00 Yes 40mg 40 mg, Oral, BID, First dose on 02/15/23 at 1999, Until Discontinu ed, Routine [facility] ferrous sulfate 325 mg (65 mg iron) tablet 2022-05 00:00: 00 Yes [id number] 325mg Take 1 tablet by mouth in the morning. [facility] carvediloL 6.25 mg tablet 2022-05 00:00: 00 06-08 00:00 :00 No [id number] 6.25mg Take 1 tablet by mouth in the morning and 1 tablet in the evening. Take with meals. [facility] furosemide 40 mg tablet 2022-05 00:00: 00 06-08 00:00 :00 No [id number] 40mg Take 1 tablet by mouth in the morning and 1 tablet in the evening. [facility] PANTOPRAZOL E 40MG 2022-05 0- 00:00: 00 09-29 00:00 :00 No Surendra White Sliding Scale Insulin - Lispro (HumaLOG) 2022-05 0- 05:00: 00 02-16 14:54 :56 No Subcutaneo us, Q6H, First dose (after last modificati on) on 02/15/23 at 0000, Until Discontinu ed, Routine [facility] atorvastati n (LIPITOR) tablet 40 mg 2022-05 02:00: 00 Yes 40mg 40 mg, Oral, QHS, First dose on 02/14/23 at 2100, Until Discontinu ed, Routine [facility] furosemide (LASIX) injection 40 mg 02-14 22:00: 00 02-14 22:58 :00 No 40mg 40 mg, Slow IV Push, DAILY, 1 dose, First dose (after last modificati on) on 02/14/23 at 1700, Routine [facility] KCL (KLOR-CON M20) tablet 40 mEq 02-13 23:15: 00 02-13 23:04 :00 No 40meq 40 mEq, Oral, ONCE, 1 dose, On Thu02/13/23 at 1815, Routine [facility] magnesium oxide (MAG-OX 400) tablet 400 mg 02-13 15:00: 00 02-13 17:42 :00 No 400mg 400 mg, Oral, ONCE, 1 dose, On Thu02/13/23 at 1000, Routine [facility] potassium chloride in water (KCL) 20 mEq/100 mL RTU IVPB 20 mEq 02-13 04:30: 00 02-13 09:49 :00 No 20meq 20 mEq, IV Piggyback, Q2H ES, 2 doses, First dose on Mendy 02/12/23 at 2330, Last dose on Thu02/13/23 at 0130, 100 mL [facility] furosemide (LASIX) injection 40 mg 02-13 01:00: 00 02-13 01:48 :00 No 40mg 40 mg, Slow IV Push, Q12H, 1 dose, First dose (after last modificati on) on Thu02/12/23 at 2000, Routine [facility] INJECT 30 UNITS IN AM AND 25 UNITS IN PM 02-13 00:00: 00 09-29 00:00 :00 No 100 Surendra White insulin glargine (LANTUS U-100) injection 17 Units 02-12 14:00: 00 Yes 17U 17 Units, Subcutaneo us, DAILY, First dose (after last modificati on) on Thu02/12/23 at 0900, Until Discontinu ed, [facility] (GOLYTELY) 236-22.74-6 .74 -5.86 gram solution 4,000 mL 02-11 23:30: 00 02-12 02:33 :00 No 4000mL 4,000 mL, Oral, ONCE, 1 dose, On Thu02/11/23 at 1830, Routine [facility] insulin lispro (human) (HumaLOG U-100) injection 3 Units 02-11 22:00: 00 Yes 3U 3 Units, Subcutaneo us, TID MEALS, First dose on Thu02/11/23 at 1700, Until Discontinu ed, Routine [facility] KCL (KLOR-CON M20) tablet 40 mEq 02-11 16:15: 00 02-11 15:36 :00 No 40meq 40 mEq, Oral, ONCE, 1 dose, On Thu02/11/23 at 1115, Routine [facility] KCL 20 mEq/15 mL solution 20 mEq 02-11 12:15: 00 02-11 11:32 :00 No 20meq 20 mEq, Oral, ONCE, 1 dose, On Thu02/11/23 at 0715, [facility] 2 gram/50 mL (4 %) infusion 2 g 02-11 12:15: 00 02-11 12:32 :00 No 2g 2 g, IV Piggyback, Administer over 60 Minutes, ONCE, 1 dose, On Thu02/11/23 at 0715, Routine [facility] potassium chloride in water (KCL) 20 mEq/100 mL RTU IVPB 20 mEq 02-11 11:30: 00 02-11 17:16 :00 No 20meq 20 mEq, IV Piggyback, Q2H, 2 doses, First dose on Thu02/11/23 at 0630, Last dose on Thu02/11/23 at 0800, 100 mL [facility] QUEtiapine (SEROQUEL) tablet 25 mg 02-11 02:00: 00 Yes 25mg 25 mg, Oral, QHS, First dose (after last modificati on) on Thu02/10/23 at 2100, Until Discontinu ed, Routine [facility] Insulin Detemir (LEVEMIR FLEXPEN) 100 unit/mL (3 mL) injection 02-10 14:28: 17 Yes inject under the skin. [facility] insulin glargine (LANTUS U-100) injection 15 Units 02-10 14:00: 00 02-11 18:40 :13 No 15U 15 Units, Subcutaneo us, DAILY, First dose (after last modificati on) on Thu02/10/23 at 0900, Until Discontinu ed, Routine [facility] KCL 20 mEq/15 mL solution 40 mEq 02-10 13:00: 00 02-10 14:02 :00 No 40meq 40 mEq, Oral, ONCE, 1 dose, On Thu02/10/23 at 0800, Routine [facility] pantoprazol e (PROTONIX) EC tablet 40 mg 02-10 01:00: 00 Yes 40mg 40 mg, Oral, BID, First dose on Thu02/09/23 at 2000, Until Discontinu ed, Routine [facility] cefTRIAXone (ROCEPHIN) 1,000 mg in NaCl 0.9% [...] y
Durat ion of therapy: 72 hours [facility] insulin glargine (LANTUS U-100) injection 8 Units 02-09 14:00: 00 02-10 12:42 :12 No 8U 8 Units, Subcutaneo us, DAILY, First dose on Thu02/09/23 at 0900, Until Discontinu ed, Routine [facility] KCL 20 mEq/15 mL solution 40 mEq 02-09 13:45: 00 02-09 14:22 :00 No 40meq 40 mEq, Oral, ONCE, 1 dose, On Thu02/09/23 at 0845, Routine [facility] ipratropium -albuteroL (DUONEB) 0.5 mg-3 mg(2.5 mg base)/3 mL nebulizer solution 3 mL 02-08 16:45: 00 Yes 3mL 3 mL, Inhalation , QIDPRN, Starting on Thu02/08/23 at 1145, Until Discontinu ed, Routine, Wheezing [facility] furosemide (LASIX) injection 40 mg 02-08 13:00: 00 02-12 18:58 :57 No 40mg 40 mg, Slow IV Push, Q12H, First dose (after last modificati on) on Thu02/08/23 at 0800, Until Discontinu ed, Routine [facility] ferrous sulfate tablet 325 mg 02-08 01:00: 00 Yes 325mg 325 mg, Oral, BID, First dose on Thu02/07/23 at 2000, Until Discontinu ed, Routine [facility] QUEtiapine (SEROQUEL) tablet 25 mg 02-08 01:00: 00 02-10 12:21 :47 No 25mg 25 mg, Oral, BID, First dose on Thu02/07/23 at 2000, Until Discontinu ed, Routine [facility] magnesium sulfate in water 4 gram/50 mL (8 %) IV Piggyback 4 g 02-07 06:30: 00 02-07 07:41 :00 No 4g 4 g, IV Piggyback, at 25 mL/hr Administer over 120 Minutes, ONCE, 1 dose, On Thu02/07/23 at 0130, Routine [facility] furosemide (LASIX) injection 40 mg 02-06 23:00: 00 02-07 18:30 :47 No 40mg 40 mg, Slow IV Push, Q6H, First dose on Thu02/06/23 at 1800, Until Discontinu ed, Routine [facility] cefTRIAXone (ROCEPHIN) 1,000 mg in NaCl [...] y
Durat ion of therapy: 72 hours [facility] dexMEDEtomi dine 400 mcg in 0.9 [...] at maximum allowed dose, contact prescriber .
[facility] furosemide (LASIX) injection 40 mg 02-06 17:15: 00 02-06 17:33 :00 No 40mg 40 mg, Slow IV Push, ONCE, 1 dose, On Thu02/06/23 at 1215, Routine [facility] NaCl 0.9% (NS) injection 10 mL 02-06 16:50: 25 Yes 10mL 10 mL, Slow IV Push, PRN, Starting on Thu02/06/23 at 1150, Until Discontinu ed, Routine, line maintenanc e [facility] lidocaine 1% (PF) (XYLOCAINE) injection 5 mL 02-06 16:50: 25 Yes 5mL 5 mL, Subcutaneo us, PRN, Starting on Thu02/06/23 at 1150, Until Discontinu ed, Routine, Local anesthesia [facility] ipratropium -albuteroL (DUONEB) 0.5 mg-3 mg(2.5 mg base)/3 mL nebulizer solution 3 mL 02-06 13:00: 00 02-08 16:40 :55 No 3mL 3 mL, Inhalation , QID, First dose on Thu02/06/23 at 0800, Until Discontinu ed, Routine [facility] morpHINE (2 mg/mL) injection 1 mg 02-06 12:45: 00 02-06 13:10 :00 No 1mg 1 mg, Slow IV Push, ONCE, 1 dose, On Thu02/06/23 at 0745, Routine [facility] methylPREDN ISolone sod succ (SOLU-MEDRO L (PF)) injection 40 mg 02-06 11:00: 00 02-08 16:41 :45 No 40mg 40 mg, Intravenou s, Q8H, First dose on Thu02/06/23 at 0600, Until Discontinu ed, 1 mL [facility] Insulin Detemir (LEVEMIR FLEXPEN) 100 unit/mL (3 mL) injection 02-06 10:07: 45 Yes inject under the skin. [facility] furosemide (LASIX) injection 40 mg 02-06 08:45: 00 02-06 07:56 :00 No 40mg 40 mg, Slow IV Push, ONCE, 1 dose, On Thu02/06/23 at 0345, Routine [facility] methylpredn isolone sod succ (SOLU-MEDRO L) injection 125 mg 02-06 07:30: 00 02-06 06:48 :00 No 125mg 125 mg, Intravenou s, ONCE, 1 dose, On Thu02/06/23 at 0230, 2 mL [facility] ipratropium -albuteroL (DUONEB) 0.5 mg-3 mg(2.5 mg base)/3 mL nebulizer solution 3 mL 02-06 06:20: 20 02-06 06:37 :57 No 3mL 3 mL, Inhalation , QIDPRN, Starting on Thu02/06/23 at 0120, Until Thu02/06/23 at 0137, Routine, Wheezing, Shortness of Breath [facility] LORazepam (ATIVAN) injection 1 mg 02-06 06:15: 00 02-06 05:29 :00 No 1mg 1 mg, Slow IV Push, ONCE, 1 dose, On Thu02/06/23 at 0115, Routine [facility] traZODone (DESYREL) tablet 50 mg 02-06 05:00: 00 02-06 04:05 :00 No 50mg 50 mg, Oral, ONCE, 1 dose, On Thu02/06/23 at 0000, Routine [facility] ARIPiprazol e (ABILIFY) 1 mg/mL oral solution 2 mg 02-06 02:00: 00 02-06 13:35 :14 No 2mg 2 mg, Oral, DAILY, First dose on Thu02/05/23 at 2100, Until Discontinu ed, Routine [facility] zinc oxide-cod liver oil (DESITIN) 40 % paste 02-05 10:41: 49 Yes Topical, PRN, Starting on Thu02/05/23 at 0541, Until Discontinu ed, Routine, Diaper rash [facility] bisacodyL (DULCOLAX) tablet 10 mg 02-04 21:30: 00 02-04 22:22 :00 No 10mg 10 mg, Oral, PRE-PROCED URE ONCE, 1 dose, Starting on Thu02/04/23 at 1630, Until Discontinu ed, Routine, Bowel Prep, Colonoscop y [facility] peg-electro lyte soln (GOLYTELY) 236-22.74-6 .74 -5.86 gram solution 4,000 mL 02-04 20:21: 22 02-11 22:42 :01 No 4000mL 4,000 mL, Oral, PRN - SEE INSTRUCTIO NS, Starting on Thu02/04/23 at 1521, Until Thu02/11/23 at 1742, Routine, Bowel Prep, colonoscop y [facility] bisacodyL (DULCOLAX) tablet 10 mg 02-04 20:21: 22 02-04 21:01 :00 No 10mg 10 mg, Oral, PRE-PROCED URE ONCE, 1 dose, Starting on Thu02/04/23 at 1521, Until Thu02/04/23 at 1601, Routine, Bowel Prep, Colonoscop y [facility] phytonadion e (VITAMIN K) 10 mg in NaCl 0.9% (NS) piggyback 02-04 18:00: 00 02-04 18:28 :00 No 10mg IV Piggyback, ONCE, 1 dose, On Thu02/04/23 at 1300, 50 mL [facility] clopidogreL (PLAVIX) 75 mg tablet 75 mg 02-04 16:45: 00 Yes 75mg 75 mg, Oral, DAILY, First dose on Thu02/04/23 at 1145, Until Discontinu ed, SYED [facility] fluticasone propionate 50 mcg/actuati on nasal spray 1 [place] 02-04 15:48: 00 Yes 1{spray } 1 [place], Nasal, DAILY, First dose on Thu02/04/23 at 1100, Until Discontinu ed, Routine [facility] dexMEDEtomi dine 400 mcg in 0.9 [...] at maximum allowed dose, contact prescriber .
[facility] furosemide (LASIX) injection 40 mg 02-04 02:45: 00 02-04 02:07 :00 No 40mg 40 mg, Slow IV Push, ONCE, 1 dose, On Thu02/03/23 at 2145, Routine [facility] atorvastati n (LIPITOR) tablet 40 mg 02-04 02:00: 00 02-06 13:35 :14 No 40mg 40 mg, Oral, QHS, First dose on Thu02/03/23 at 2100, Until Discontinu ed, Routine [facility] octreotide (SANDOSTATI N) 500 mcg in NaCl 0.9% (NS) 100 mL infusion 02-03 21:45: 00 02-06 21:19 :50 No 50ug/h 50 mcg/hr (10 mL/hr), IV Infusion, CONTINUOUS , Starting on Thu02/03/23 at 1645 [facility] phytonadion e (VITAMIN K) 10 mg in NaCl 0.9% (NS) piggyback 02-03 21:30: 00 02-03 21:50 :00 No 10mg IV Piggyback, ONCE, 1 dose, On Thu02/03/23 at 1630, 50 mL [facility] cefTRIAXone (ROCEPHIN) [...] Urine
D uration of therapy: 72 hours [facility] fluconazole (DIFLUCAN) tablet 50 mg 02-03 18:00: 00 02-03 19:03 :00 No 50mg 50 mg, Oral, ONCE, 1 dose, On Thu02/03/23 at 1300, SYED
Re ason for Anti-Infec tive: Empiric Therapy for Suspected Infection< br>Empiric Therapy Site: Skin / Soft tissue
Duration of therapy: 72 hours [facility] carvediloL (COREG) tablet 6.25 mg 02-03 16:45: 00 Yes 6.25mg 6.25 mg, Oral, BID MEALS, First dose on Thu02/03/23 at 1145, Until Discontinu ed, Routine [facility] fenofibrate micronized (LOFIBRA) capsule 134 mg 02-03 14:00: 00 Yes 134mg 134 mg, Oral, DAILY, First dose on Thu02/03/23 at 0900, Until Discontinu ed [facility] ezetimibe (ZETIA) tablet 10 mg 02-03 14:00: 00 Yes 10mg 10 mg, Oral, DAILY, First dose on Thu02/03/23 at 0900, Until Discontinu ed, Routine [facility] nystatin (NYSTOP) powder 02-03 13:00: 00 Yes Topical, TID, First dose on Thu02/03/23 at 0800, Until Discontinu ed, Routine [facility] pramipexole (MIRAPEX) tablet 0.125 mg 02-03 13:00: 00 Yes .125mg 0.125 mg, Oral, BID, First dose on Thu02/03/23 at 0800, Until Discontinu ed [facility] pantoprazol e (PROTONIX) injection 40 mg 02-03 13:00: 00 02-09 16:01 :29 No 40mg 40 mg, Slow IV Push, Q12H, First dose on Thu02/03/23 at 0800, [facility] 1,000 mL 02-03 08:30: 00 02-03 21:36 :21 No 1000mL at 75 mL/hr, 1,000 mL, IV Infusion, CONTINUOUS , Starting on Thu02/03/23 at 0330, Until Thu02/03/23 at 1636, [facility] Sliding Scale Insulin - Lispro (HumaLOG) 02-03 05:00: 00 02-15 00:55 :31 No Subcutaneo us, Q4H, First dose on Thu02/03/23 at 0000, Until Discontinu ed, [facility] ondansetron (ZOFRAN (PF)) injection 4 mg 02-03 03:44: 25 Yes 4mg 4 mg, Slow IV Push, Q6HPRN, Starting on Thu02/02/23 at 2244, Until Discontinu ed, Routine, Nausea and Vomiting (N/V) [facility] acetaminoph en (TYLENOL) tablet 650 mg 02-03 03:44: 17 Yes 650mg 650 mg, Oral, Q6HPRN, Starting on Thu02/02/23 at 2244, Until Discontinu ed, Routine, Pain (scale 1-3) [facility] traMADoL (ULTRAM) tablet 50 mg 02-03 03:42: 45 02-03 18:03 :31 No 50mg 50 mg, Oral, Q4HPRN, Starting on Thu02/02/23 at 2242, Until Thu02/03/23 at 1303, Routine, Pain (scale 4-6) [facility] furosemide (LASIX) injection 40 mg 02-03 01:45: 00 02-03 01:43 :00 No 40mg 40 mg, IV Push, ONCE, 1 dose, On Thu02/02/23 at 2045, SYED [facility] BIOTIN ORAL 02-02 22:45: 02 Yes 2000mg Take 2,000 mg by mouth daily. [facility] GABAPENTIN ORAL 02-02 22:45: 02 Yes 800mg Take 800 mg by mouth 3 (three) times daily. [facility] metFORMIN (GLUCOPHAGE ) 1,000 mg tablet 02-02 22:45: 02 Yes 1000mg Take 1 tablet by mouth in the morning and 1 tablet in the evening. Take with meals. [facility] potassium chloride (K-DUR) 10 mEq CR tablet 02-02 22:45: 02 Yes 20meq Take 20 mEq by mouth daily. [facility] tolterodine LA (DETROL LA) 4 mg 24 hr capsule 02-02 22:45: 02 Yes 4mg Take 4 mg by mouth daily. [facility] ezetimibe (ZETIA) 10 mg tablet 02-02 22:45: 02 Yes 10mg Take 1 tablet by mouth in the morning. [facility] Fentanyl, Bulk, 100 % Powd 02-02 22:45: 02 Yes [facility] diazePAM 5 mg tablet 02-02 22:45: 02 Yes (Schedule IV Drug) TAKE 1 TABLET BY MOUTH EVERY EVENING [facility] Fenofibrate 150 mg capsule 02-02 22:45: 02 Yes 150mg Take 1 capsule by mouth in the morning. [facility] raloxifene 60 mg tablet 02-02 22:45: 02 Yes 1 tablet [facility] NORepinephr ine 4 mg in 0.9% [...] intravenou s vasopresso r at a time.
[facility] NaCl 0.9% (NS) bolus infusion 1,000 mL 02-02 21:00: 00 02-02 21:30 :00 No 1000mL at 999 mL/hr, 1,000 mL, IV Infusion, ONCE, 1 dose, On Thu02/02/23 at 1600, STAT [facility] LOSARTAN 25MG 02-02 00:00: 00 Yes Surendra White LEVEMIR FLEX 100U/ML PEN 01-12 00:00: 00 Yes Surendra White ELIQUIS 5MG 01-09 00:00: 00 Yes Surendra White takes one tablet by mouth every morning. 01-01 00:00: 00 Yes 25 Surendra White CLOPIDOGREL 75MG 01-01 00:00: 00 Yes Surendra White TAKE 1 TABLET TWICE DAILY. 12-19 00:00: 00 09-29 00:00 :00 No 40 Surendra White TAKE 1 TABLET DAILY DIRECTED. 12-19 00:00: 00 09-29 00:00 :00 No 81 Surendraaudrey White TAKE 1 TABLET AT BEDTIME. 12-19 00:00: 00 09-29 00:00 :00 No 40 Surendra Vandana White HALF TABLET Q AM 12-19 00:00: 00 09-29 00:00 :00 No 25 Surendraaudrey White TAKE 1 CAPSULE TWICE DAILY. 12-19 00:00: 00 09-29 00:00 :00 No 30 Surendraaudrey White TAKE 1 TABLET DAILY. 12-19 00:00: 00 09-29 00:00 :00 No 75 Surendraaudrey White TAKE 1 TABLET BY MOUTH EVERY DAY 12-19 00:00: 00 09-29 00:00 :00 No 10 Surendraaudrey White TAKE 1 TABLET 3 TIMES DAILY. 12-19 00:00: 00 09-29 00:00 :00 No 800 Surendra Vandana White TAKE 0.5 TABLET AT BEDTIME 12-19 00:00: 00 09-29 00:00 :00 No 5 Sruendra Vandana White TAKE 1 TABLET BY MOUTH DAILY 12-18 00:00: 00 Yes Surendra Vandana White GABAPENTIN 800 MG 12-18 00:00: 00 Yes 800 Surendra Vandana White FUROSEMIDE 40 MG 12-18 00:00: 00 Yes 40 Surendra Vandana White DULOXETINE HCL DR 30 MG 12-18 00:00: 00 Yes 30 Surendra Vandana White ATORVASTATI N 40 MG 12-18 00:00: 00 Yes 40 Surendra Vandana White SPIRONOLACT ONE 25 MG 12-18 00:00: 00 09-29 00:00 :00 No 25 Surendraaudrey White INJECT 30 UNITS IN AM AND 25 UNITS IN PM 12-16 00:00: 00 09-29 00:00 :00 No 100 Surendraaudrey White LANTUS 100U/ML VIA 12-01 00:00: 00 09-29 00:00 :00 No Surendra F Christopher CARVEDILOL 12.5MG 11-19 00:00: 00 Yes Surendra White FLUOCIN BODY 0.01% OIL 11-17 00:00: 00 Yes Surendra White FENOFIBRATE 134MG 11-15 00:00: 00 09-29 00:00 :00 No Surendra White polyethylen e glycol 3350 powder 17 g 11-07 18:30: 00 11-07 18:03 :00 No 17g 17 g, Oral, ONCE, 1 dose, On Thu11/07/22 at 1330, Routine [facility] BIOTIN ORAL 11-07 14:35: 02 Yes 2000mg Take 2,000 mg by mouth daily. [facility] GABAPENTIN ORAL 11-07 14:35: 02 Yes 800mg Take 800 mg by mouth 3 (three) times daily. [facility] metFORMIN (GLUCOPHAGE ) 1,000 mg tablet 11-07 14:35: 02 Yes 1000mg Take 1 tablet by mouth in the morning and 1 tablet in the evening. Take with meals. [facility] potassium chloride (K-DUR) 10 mEq CR tablet 11-07 14:35: 02 Yes 20meq Take 20 mEq by mouth daily. [facility] tolterodine LA (DETROL LA) 4 mg 24 hr capsule 11-07 14:35: 02 Yes 4mg Take 4 mg by mouth daily. [facility] ezetimibe (ZETIA) 10 mg tablet 11-07 14:35: 02 Yes 10mg Take 1 tablet by mouth in the morning. [facility] Fentanyl, Bulk, 100 % Powd 11-07 14:35: 02 Yes [facility] diazePAM 5 mg tablet 11-07 14:35: 02 Yes (Schedule IV Drug) TAKE 1 TABLET BY MOUTH EVERY EVENING [facility] Fenofibrate 150 mg capsule 11-07 14:35: 02 Yes 1{capsu le} Take 1 capsule by mouth in the morning. [facility] raloxifene 60 mg tablet 11-07 14:35: 02 Yes 1 tablet [facility] carvediloL (COREG) tablet 12.5 mg 11-05 22:00: 00 Yes 12.5mg 12.5 mg, Oral, BID MEALS, First dose (after last modificati on) on Thu11/05/22 at 1700, Until Discontinu ed, Routine [facility] ARIPiprazol e (ABILIFY) tablet 2.5 mg 11-05 02:00: 00 Yes 2.5mg 2.5 mg, Oral, QHS, First dose on Thu11/04/22 at 2100, Until Discontinu ed, Routine [facility] amoxicillin -clavulanat e (AUGMENTIN) 875-125 mg per tablet 1 tablet 11-05 01:00: 00 11-15 00:59 :00 No 1{tbl} 1 tablet, Oral, Q12H, 20 doses, First dose on Thu11/04/22 at 2000, Last dose on Thu11/14/22 at 0800, Routine
Reason for Anti-Infec tive: Documented Infection< br>Documen mars Infection Site: Urine
D uration of Therapy: Other (see Comments) [facility] carvediloL 12.5 mg tablet 11-05 00:00: 00 02-16 00:00 :00 No [id number] 12.5mg Take 1 tablet by mouth in the morning and 1 tablet in the evening. Take with meals. [facility] insulin glargine 100 unit/mL injection 11-04 00:00: 00 06-24 00:00 :00 No [id number] 20U inject 20 Units under the skin every 12 (twelve) hours. [facility] clopidogreL 75 mg tablet 11-04 00:00: 00 05-02 00:00 :00 No [id number] 75mg Take 1 tablet by mouth in the morning. [facility] TAKE 1 TABLET BY MOUTH EVERY 12 HOURS 11-04 00:00: 00 09-29 00:00 :00 No Surendra White LANTUS 100U/ML VIA 11-04 00:00: 00 09-29 00:00 :00 No Surendra White HYDROCO/APA P 5-325MG 11-04 00:00: 00 09-29 00:00 :00 No Surendra White amoxicillin -clavulanat e 875-125 mg per tablet 11-04 00:00: 00 02-16 00:00 :00 No [id number] 1{tbl} Take 1 tablet by mouth every 12 (twelve) hours. [facility] insulin glargine (LANTUS U-100) injection 20 Units 11-02 01:00: 00 Yes 20U 20 Units, Subcutaneo us, Q12H, First dose (after last modificati on) on [facility] 11/01/22 at 1999, Until Discontinu ed, Routine [facility] apixaban (ELIQUIS) tablet 5 mg 11-02 01:00: 00 Yes 5mg 5 mg, Oral, BID, First dose on 11/01/22 at 1999, Until Discontinu ed, Routine
Indicatio ns: Non-Valvul ar Atrial Fibrillati on [facility] HYDROcodone -acetaminop hen (NORCO 5) 5-325 mg tablet 1 tablet 11-01 07:09: 27 Yes [id number] 1{tbl} 1 tablet, Oral, Q6HPRN, Starting on 11/01/22 at 0209, Until Discontinu ed, Routine, Pain (scale 7-10) [facility] insulin glargine 100 unit/mL injection 11-01 06:28: 20 11-01 00:00 :00 No 15U inject 15 Units under the skin every 12 (twelve) hours. [facility] insulin glargine 100 unit/mL injection 11-01 06:28: 20 11-01 00:00 :00 No 25U inject 25 Units under the skin every evening. [facility] DULoxetine 60 mg capsule 11-01 06:28: 11-01 00:00 :00 No 1{capsu le} Take 1 capsule by mouth in the morning. [facility] losartan 50 mg tablet 11-01 06:28: 11-01 00:00 :00 No 1{tbl} Take 1 tablet by mouth in the morning. [facility] atorvastati n (LIPITOR) tablet 40 mg 11-01 02:00: 00 Yes 40mg 40 mg, Oral, QHS, First dose on Thu10/31/22 at 2100, Until Discontinu ed, Routine [facility] spironolact one 25 mg tablet 11-01 00:00: 00 Yes [id number] 12.5mg Take 0.5 tablets by mouth in the morning. [facility] LANTUS 100 UNIT/ML VIAL 11-01 00:00: 00 Yes 100 Surendra White insulin glargine 100 unit/mL injection 11-01 00:00: 00 06-08 00:00 :00 No [id number] 15U inject 15 Units under the skin every 12 (twelve) hours. [facility] atorvastati n 40 mg tablet 11-01 00:00: 00 10-25 00:00 :00 No [id number] 40mg Take 1 tablet by mouth at bedtime. [facility] losartan 25 mg tablet 11-01 00:00: 00 10-25 00:00 :00 No [id number] 25mg Take 1 tablet by mouth in the morning. [facility] ELIQUIS 5MG 11-01 00:00: 00 09-29 00:00 :00 No Surendra White CARVEDILOL 25MG 11-01 00:00: 00 09-29 00:00 :00 No Surendra White LOSARTAN 25MG 11-01 00:00: 00 09-29 [...] MORNING 11-01 00:00: 00 09-29 00:00 :00 Alxi White apixaban 5 mg tablet 11-01 00:00: 00 02-16 00:00 :00 No [id number] 5mg Take 1 tablet by mouth in the morning and 1 tablet in the evening. Indication s: atrial fibrillati on [facility] aspirin 81 mg chewable tablet 11-01 00:00: 00 02-16 00:00 :00 No [id number] 81mg Take 1 tablet by mouth in the morning. [facility] furosemide 20 mg tablet 11-01 00:00: 00 02-16 00:00 :00 No [id number] 60mg Take 3 tablets by mouth every morning and evening. [facility] HYDROcodone -acetaminop hen 5-325 mg tablet 11-01 00:00: 00 11-09 04:59 :00 No [id number] 1{tbl} Take 1 tablet by mouth every 6 (six) hours as needed for Pain (scale 7-10) for up to 7 days. Indication s: acute pain [facility] carvediloL 25 mg tablet 11-01 00:00: 00 11-05 00:00 :00 No [id number] 25mg Take 1 tablet by mouth in the morning and 1 tablet in the evening. Take with meals. [facility] clopidogreL 75 mg tablet 11-01 00:00: 00 11-04 00:00 :00 No [id number] 75mg Take 1 tablet by mouth in the morning. [facility] HYDROcodone -acetaminop hen (NORCO 5) 5-325 mg tablet 1 tablet 10-31 20:00: 00 10-31 19:00 :00 No [id number] 1{tbl} 1 tablet, Oral, ONCE, 1 dose, On Thu10/31/22 at 1500, Routine [facility] iopamidol (ISOVUE 370-500 mL) injection 10-31 16:47: 17 10-31 16:56 :57 No ONCE INTRA PROCEDURE, Starting on Thu10/31/22 at 1147, Until Thu10/31/22 at 1156, Routine, CV Intraproce dure [facility] nitroglycer in (TRIDIL) 2 mg in 10 mL D5W for Cardiac Cath 10-31 16:26: 26 10-31 16:56 :57 No ONCE INTRA PROCEDURE, Starting on Thu10/31/22 at 1126, Until Thu10/31/22 at 1156, Routine, CV Intraproce dure [facility] adenosine 6 mg/1000 mL INTRACORONA RY injection for [employer] 10-31 16:26: 10 10-31 16:56 :57 No ONCE INTRA PROCEDURE, Starting on Thu10/31/22 at 1126, Until Thu10/31/22 at 1156, Routine, CV Intraproce dure [facility] NaCl 0.9% (NS) bolus infusion 10-31 14:55: 44 10-31 14:55 :44 No CONTINUOUS PRN, Starting on Thu10/31/22 at 0955, Until Thu10/31/22 at 0955, STAT, CV Intraproce dure [facility] lidocaine 1% (PF) (XYLOCAINE) injection 10-31 14:28: 19 10-31 16:56 :57 No ONCE INTRA PROCEDURE, Starting on Thu10/31/22 at 0928, Until Thu10/31/22 at 1156, Routine, CV Intraproce dure [facility] clopidogreL (PLAVIX) 300 mg tablet 300 mg 10-30 17:45: 00 10-30 17:06 :00 No [id number] 300mg 300 mg, Oral, ONCE, 1 dose, On Mendy 10/30/22 at 1245, Routine [facility] furosemide (LASIX) tablet 60 mg 10-29 22:00: 00 Yes 60mg 60 mg, Oral, QAM+PM, First dose on Thu10/29/22 at 1700, Until Discontinu ed, Routine [facility] carvediloL (COREG) tablet 25 mg 10-29 22:00: 00 11-05 18:57 :53 No 25mg 25 mg, Oral, BID MEALS, First dose (after last modificati on) on Thu10/29/22 at 1700, Until Discontinu ed, Routine [facility] sulfur hexafluorid e microsphr (LUMASON) injection 5 mL 10-29 15:30: 00 10-29 15:30 :00 No [id number] 5mL 5 mL, Intravenou s, ONCE, 1 dose, On Thu10/29/22 at 1030, Routine
receiving team member approving Restricted medication : ABDIFATAH MURRAY [facility] aspirin chewable tablet 81 mg 10-29 14:00: 00 Yes [id number] 81mg 81 mg, Oral, DAILY, First dose on Thu10/29/22 at 0900, Until Discontinu ed, Routine [facility] magnesium sulfate in water 2 gram/50 mL (4 %) infusion 2 g 10-29 11:00: 00 10-29 11:20 :00 No 2g 2 g, IV Piggyback, Administer over 60 Minutes, ONCE, 1 dose, On Thu10/29/22 at 0600, SYED [facility] iopamidol (ISOVUE 370-500 mL) injection 10-28 17:33: 18 10-28 17:36 :11 No ONCE INTRA PROCEDURE, Starting on Thu10/28/22 at 1233, Until Thu10/28/22 at 1236, Routine, CV Intraproce dure [facility] heparin 1,000 unit/mL injection 10-28 17:13: 56 10-28 17:36 :11 No ONCE INTRA PROCEDURE, Starting on Thu10/28/22 at 1213, Until Thu10/28/22 at 1236, Routine, CV Intraproce dure [facility] nitroglycer in (TRIDIL) 2 mg in 10 mL D5W for Cardiac Cath 10-28 17:13: 10 10-28 17:36 :11 No ONCE INTRA PROCEDURE, Starting on Thu10/28/22 at 1213, Until Thu10/28/22 at 1236, Routine, CV Intraproce dure [facility] lidocaine 1% (PF) (XYLOCAINE) injection 10-28 16:51: 29 10-28 17:36 :11 No ONCE INTRA PROCEDURE, Starting on Thu10/28/22 at 1151, Until Thu10/28/22 at 1236, Routine, CV Intraproce dure [facility] midazolam (VERSED) injection 10-28 16:48: 00 10-28 17:36 :11 No ONCE INTRA PROCEDURE, Starting on Thu10/28/22 at 1148, Until Thu10/28/22 at 1236, Routine, CV Intraproce dure [facility] FENTanyl PF (SUBLIMAZE (PF)) injection 10-28 16:48: 00 10-28 17:36 :11 No ONCE INTRA PROCEDURE, Starting on Thu10/28/22 at 1148, Until Thu10/28/22 at 1236, Routine, CV Intraproce dure [facility] magnesium sulfate in water 2 gram/50 mL (4 %) infusion 2 g 10-28 15:45: 00 10-28 15:55 :00 No 2g 2 g, IV Piggyback, Administer over 60 Minutes, ONCE, 1 dose, On Thu10/28/22 at 1045, Routine [facility] aspirin tablet 325 mg 10-28 14:45: 00 10-28 14:26 :00 No [id number] 325mg 325 mg, Oral, ONCE, 1 dose, On Thu10/28/22 at 0945, Routine [facility] docusate (COLACE) capsule 100 mg 10-28 14:00: 00 Yes 100mg 100 mg, Oral, DAILY, First dose on Thu10/28/22 at 0900, Until Discontinu ed, [facility]amin[facility] ([facility]OL[facility] tablet 650 mg 10-27 22:13: 38 Yes 650mg 650 mg, Oral, Q6HPRN, Starting on Thu10/27/22 at 1713, Until Discontinu ed, Routine, Pain (scale 1-3), Pain (scale 4-6) [facility] carvediloL (COREG) tablet 12.5 mg 10-27 22:00: 00 10-29 18:18 :44 No 12.5mg 12.5 mg, Oral, BID MEALS, First dose (after last modificati on) on Thu10/27/22 at 1700, Until Discontinu ed, Routine [facility] hydralAZINE (APRESOLINE ) injection 10 mg 10-27 21:45: 59 Yes 10mg 10 mg, Slow IV Push, Q6HPRN, Starting on Thu10/27/22 at 1645, Until Discontinu ed, STAT, SBP >150 [facility] D10W 10 % IV infusion 10-27 [...] INITIAL INFUSION RATE.&nbsp ; _ &nb sp;FOR [place] &nbs p; - aPTT < 35: [...] once therapeuti c levels are reached.<b r> [facility] (1,000 unit/mL, 10 mL vial) 10-27 17:00: 55 10-31 20:21 :55 No 3000U FOR REBOLUSING , Starting on Thu10/27/22 at 1200, Until Thu10/31/22 at 1521, Routine
Dosing based on aPTT testing parameters (refer to continuous heparin drip order)
[facility] nitroglycer in 50 mg in D5W [...] directed by the Heart Failure Faculty.<b r> [facility] KCL (KLOR-CON M20) tablet 40 mEq 10-27 15:45: 00 10-27 15:51 :00 No 40meq 40 mEq, Oral, ONCE, 1 dose, On Thu10/27/22 at 1045, Routine [facility] magnesium sulfate in water 2 gram/50 mL (4 %) infusion 2 g 10-27 15:30: 00 10-27 16:51 :00 No 2g 2 g, IV Piggyback, Administer over 60 Minutes, ONCE, 1 dose, On Thu10/27/22 at 1030, Routine [facility] pantoprazol e (PROTONIX) EC tablet 40 mg 10-27 14:00: 00 Yes 40mg 40 mg, Oral, DAILY, First dose on Thu10/27/22 at 0900, Until Discontinu ed, Routine [facility] fenofibrate micronized (LOFIBRA) capsule 134 mg 10-27 14:00: 00 Yes 134mg 134 mg, Oral, DAILY, First dose on Thu10/27/22 at 0900, Until Discontinu ed [facility] ezetimibe (ZETIA) tablet 10 mg 10-27 14:00: 00 Yes 10mg 10 mg, Oral, DAILY, First dose on Thu10/27/22 at 0900, Until Discontinu ed, Routine [facility] DULoxetine (CYMBALTA) capsule 60 mg 10-27 14:00: 00 Yes 60mg 60 mg, Oral, DAILY, First dose on Thu10/27/22 at 0900, Until Discontinu ed, Routine [facility] clopidogreL (PLAVIX) 75 mg tablet 75 mg 10-27 14:00: 00 Yes 75mg 75 mg, Oral, DAILY, First dose on Thu10/27/22 at 0900, Until Discontinu ed, [facility] clonazePAM (KLONOPIN) tablet 1 mg 10-27 02:00: 00 Yes 1mg 1 mg, Oral, QHS, First dose on Thu10/26/22 at 2100, Until Discontinu ed, Routine [facility] clonazePAM (KLONOPIN) tablet 1 mg 10-27 02:00: 00 Yes 1mg 1 mg, Oral, QHS, First dose on Thu10/26/22 at 2100, Until Discontinu ed, Routine [facility] losartan (COZAAR) tablet 25 mg 10-27 01:00: 00 Yes 25mg 25 mg, Oral, DAILY, First dose (after last modificati on) on Thu10/26/22 at 2000, Until Discontinu ed, Routine [facility] furosemide (LASIX) injection 40 mg 10-27 01:00: 00 10-29 19:33 :44 No 40mg 40 mg, Slow IV Push, Q12H, First dose on Thu10/26/22 at 2000, Until Discontinu ed, Routine [facility] magnesium sulfate in water 2 gram/50 mL (4 %) infusion 2 g 10-27 00:00: 00 10-27 00:31 :00 No 2g 2 g, IV Piggyback, Administer over 60 Minutes, ONCE, 1 dose, On Thu10/26/22 at 1900, Routine [facility] spironolact one (ALDACTONE) tablet 12.5 mg 10-26 22:00: 00 Yes 12.5mg 12.5 mg, Oral, DAILY, First dose on Thu10/26/22 at 1700, Until Discontinu ed, Routine [facility] enoxaparin (LOVENOX) injection 40 mg 10-26 22:00: 00 10-27 17:02 :38 No 40mg 40 mg, Subcutaneo us, DAILY, First dose on Thu10/26/22 at 1700, Until Discontinu ed, [facility] carvediloL (COREG) tablet 6.25 mg 10-26 22:00: 00 10-27 21:45 :36 No 6.25mg 6.25 mg, Oral, BID MEALS, First dose on Thu10/26/22 at 1700, Until Discontinu ed, Routine [facility] gabapentin (NEURONTIN) capsule 800 mg 10-26 19:00: 00 Yes 800mg 800 mg, Oral, TID, First dose on Thu10/26/22 at 1400, Until Discontinu ed [facility] acetaminoph en (TYLENOL) tablet 650 mg 10-26 18:57: 52 10-28 13:59 :36 No 650mg 650 mg, Oral, Q6HPRN, Starting on Thu10/26/22 at 1357, Until Thu10/28/22 at 0859, Routine, Pain (scale 1-3), Pain (scale 4-6) [facility] Sliding Scale Insulin - Lispro (HumaLOG) 10-26 14:30: 00 Yes Subcutaneo us, TID MEALS+HS, First dose on Thu10/26/22 at 0930, Until Discontinu ed, Routine [facility] insulin glargine (LANTUS U-100) injection 15 Units 10-26 14:30: 00 11-01 21:28 :10 No 15U 15 Units, Subcutaneo us, Q12H, First dose (after last modificati on) on Thu10/26/22 at 0930, Until Discontinu ed, Routine [facility] GABAPENTIN ORAL 10-26 09:09: 56 Yes 800mg Take 800 mg by mouth 3 (three) times daily. [facility] ezetimibe (ZETIA) 10 mg tablet 10-26 09:09: 56 Yes 10mg Take 10 mg by mouth daily. [facility] insulin glargine 100 unit/mL injection 10-26 09:09: 56 Yes 15U inject 15 Units under the skin every 12 (twelve) hours. [facility] DULoxetine 60 mg capsule 10-26 09:09: 56 Yes 1{capsu le} Take 1 capsule by mouth in the morning. [facility] Fenofibrate 150 mg capsule 10-26 09:09: 56 Yes 1{capsu le} Take 1 capsule by mouth in the morning. [facility] losartan 50 mg tablet 10-26 09:09: 56 Yes 1{tbl} Take 1 tablet by mouth in the morning. [facility] BIOTIN ORAL 10-26 09:09: 55 Yes 2000mg Take 2,000 mg by mouth daily. [facility] metFORMIN (GLUCOPHAGE ) 1,000 mg tablet 10-26 09:09: 55 Yes 1000mg Take 1,000 mg by mouth 2 (two) times daily with meals. [facility] potassium chloride (K-DUR) 10 mEq CR tablet 10-26 09:09: 55 Yes 20meq Take 20 mEq by mouth daily. [facility] tolterodine LA (DETROL LA) 4 mg 24 hr capsule 10-26 09:09: 55 Yes 4mg Take 4 mg by mouth daily. [facility] Fentanyl, Bulk, 100 % Powd 10-26 09:09: 55 Yes [facility] insulin glargine 100 unit/mL injection 10-26 09:09: 55 Yes 25U inject 25 Units under the skin every evening. [facility] diazePAM 5 mg tablet 10-26 09:09: 55 Yes (Schedule IV Drug) TAKE 1 TABLET BY MOUTH EVERY EVENING [facility] raloxifene 60 mg tablet 10-26 09:09: 55 Yes 1 tablet [facility] furosemide (LASIX) injection 40 mg 10-26 08:15: 00 10-26 08:05 :00 No 40mg 40 mg, IV Push, ONCE, 1 dose, On 10/26/22 at 0315, SYED [facility] METFORMIN HCL 1,000 MG 10-15 00:00: [...] ITCH 10-15 00:00: 00 09-29 00:00 :00 No Surendra White TAKE 1 CAPSULE BY MOUTH ONCE DAILY 10-15 00:00: 00 09-29 00:00 :00 No Surendra White TAKE 0.5 TABLET AT BEDTIME 10-15 00:00: 00 09-29 00:00 :00 No 5 Surendra White LEVEMIR FLEX 100U/ML PEN 09-15 00:00: 00 09-29 00:00 :00 No Surendra White spironolact one 25 mg tablet 09-07 00:00: 00 10-08 04:59 :00 No [id number] 12.5mg Take 0.5 tablets by mouth in the morning for 30 days. [facility] BIOTIN ORAL 09-06 19:45: 58 Yes 2000mg Take 2,000 mg by mouth daily. [facility] GABAPENTIN ORAL 09-06 19:45: 58 Yes 800mg Take 800 mg by mouth 3 (three) times daily. [facility] metFORMIN (GLUCOPHAGE ) 1,000 mg tablet 09-06 19:45: 58 Yes 1000mg Take 1,000 mg by mouth 2 (two) times daily with meals. [facility] potassium chloride (K-DUR) 10 mEq CR tablet 09-06 19:45: 58 Yes 20meq Take 20 mEq by mouth daily. [facility] tolterodine LA (DETROL LA) 4 mg 24 hr capsule 09-06 19:45: 58 Yes 4mg Take 4 mg by mouth daily. [facility] ezetimibe (ZETIA) 10 mg tablet 09-06 19:45: 58 Yes 10mg Take 10 mg by mouth daily. [facility] Fentanyl, Bulk, 100 % Powd 09-06 19:45: 58 Yes [facility] insulin glargine 100 unit/mL injection 09-06 19:45: 58 Yes 15U inject 15 Units under the skin every 12 (twelve) hours. [facility] insulin glargine 100 unit/mL injection 09-06 19:45: 58 Yes 25U inject 25 Units under the skin every evening. [facility] diazePAM 5 mg tablet 09-06 19:45: 58 Yes (Schedule IV Drug) TAKE 1 TABLET BY MOUTH EVERY EVENING [facility] DULoxetine 60 mg capsule 09-06 19:45: 58 Yes 1{capsu le} Take 1 capsule by mouth in the morning. [facility] Fenofibrate 150 mg capsule 09-06 19:45: 58 Yes 1{capsu le} Take 1 capsule by mouth in the morning. [facility] losartan 50 mg tablet 09-06 19:45: 58 Yes 1{tbl} Take 1 tablet by mouth in the morning. [facility] raloxifene 60 mg tablet 09-06 19:45: 58 Yes 1 tablet [facility] LORazepam (ATIVAN) injection 0.5 mg 09-06 16:00: 00 09-06 15:24 :00 No .5mg 0.5 mg, Slow IV Push, ONCE, 1 dose, On 09/06/22 at 1100, Routine [facility] furosemide (LASIX) tablet 40 mg 09-06 14:00: 00 Yes 40mg 40 mg, Oral, QAM+PM, First dose (after last modificati on) on 09/06/22 at 0900, Until Discontinu ed, Routine [facility] morpHINE (2 mg/mL) injection 2 mg 09-06 14:00: 00 09-06 13:32 :00 No 2mg 2 mg, Slow IV Push, ONCE, 1 dose, On 09/06/22 at 0900, Routine [facility] FUROSEMIDE 40MG 09-06 00:00: 00 09-29 00:00 :00 No Surendra White SPIRONOLACT 25MG 09-06 00:00: 00 09-29 00:00 :00 No Surendra White DEXAMETHASO N 6MG 09-06 00:00: 00 09-29 00:00 :00 No Surendra White furosemide 40 mg tablet 09-06 00:00: 00 10-07 04:59 :00 No [id number] 40mg Take 1 tablet by mouth every morning and evening for 30 days. [facility] dexAMETHaso ne 6 mg tablet 09-06 00:00: 00 09-12 04:59 :00 No [id number] 6mg Take 1 tablet by mouth every day at 1200 (noon) for 5 days. [facility] sennosides (SENOKOT) tablet 8.6 mg 09-05 20:00: 00 Yes 8.6mg 8.6 mg, Oral, DAILY, First dose on Thu09/05/22 at 1500, Until Discontinu ed, Routine [facility] furosemide (LASIX) tablet 60 mg 09-04 22:00: 00 09-05 19:25 :27 No 60mg 60 mg, Oral, QAM+PM, First dose (after last modificati on) on Thu09/04/22 at 1700, Until Discontinu ed, Routine [facility] spironolact one (ALDACTONE) tablet 12.5 mg 09-04 14:00: 00 Yes 12.5mg 12.5 mg, Oral, DAILY, First dose on Thu09/04/22 at 0900, Until Discontinu ed, Routine [facility] melatonin (MELATIN) tablet 6 mg 09-04 07:00: 00 Yes 6mg 6 mg, Oral, QHS, First dose on Thu09/04/22 at 0200, Until Discontinu ed, Routine [facility] carvediloL (COREG) tablet 6.25 mg 09-03 22:00: 00 Yes 6.25mg 6.25 mg, Oral, BID MEALS, First dose on Thu09/03/22 at 1700, Until Discontinu ed, Routine [facility] sulfur hexafluorid e microsphr (LUMASON) injection 5 mL 09-03 20:30: 00 09-03 20:30 :00 No [id number] 5mL 5 mL, Intravenou s, ONCE, 1 dose, On Thu09/03/22 at 1530, Routine
receiving team member approving Restricted medication : GERRY PETTIT [facility] losartan (COZAAR) tablet 50 mg 09-03 17:45: 00 Yes 50mg 50 mg, Oral, DAILY, First dose on Thu09/03/22 at 1245, Until Discontinu ed, Routine [facility] KCL (KLOR-CON M20) tablet 40 mEq 09-03 15:45: 00 09-03 15:13 :00 No 40meq 40 mEq, Oral, ONCE, 1 dose, On Thu09/03/22 at 1045, Routine [facility] magnesium sulfate in water 2 gram/50 mL (4 %) infusion 2 g 09-03 15:45: 00 09-03 16:13 :00 No 2g 2 g, IV Piggyback, Administer over 60 Minutes, ONCE, 1 dose, On Thu09/03/22 at 1045, [facility] enox[facility] (LOVENOX) injection 40 mg [...] at 0800, Until Discontinu ed, [facility] furosemide (LASIX) injection 40 mg 09-03 13:00: 00 09-04 15:45 :09 No 40mg 40 mg, Slow IV Push, Q12H, First dose on Thu09/03/22 at 0800, Until Discontinu ed, [facility] LORazepam (ATIVAN) tablet 1 mg 09-03 11:45: 00 09-03 10:53 :00 No 1mg 1 mg, Oral, ONCE, 1 dose, On Thu09/03/22 at 0645, [facility]ine [facility] [facility] hydralAZINE (APRESOLINE ) injection 10 mg 09-03 11:00: 00 09-03 10:12 :00 No 10mg 10 mg, Slow IV Push, ONCE, 1 dose, On Thu09/03/22 at 0600, STAT [facility] hydrALAZINE (APRESOLINE ) tablet 10 mg 09-03 10:08: 44 Yes 10mg 10 mg, Oral, Q6HPRN, Starting on Thu09/03/22 at 0508, Until Discontinu ed, Routine, SBP>160, DBP>100 [facility] dexAMETHaso ne (DECADRON) tablet 6 mg 09-03 06:45: 00 09-12 16:59 :00 No 6mg 6 mg, Oral, QNOON, 10 doses, First dose on Thu09/03/22 at 0145, Last dose on Thu09/11/22 at 1200, Routine [facility] magnesium sulfate in D5W 1 gram/100 mL RTU IV Piggyback 1 g 09-03 06:00: 00 09-03 06:52 :00 No 1g 1 g, IV Piggyback, ONCE, 1 dose, On Thu09/03/22 at 0100, Administer over 60 Minutes, 100 mL [facility] glucagon (GLUCAGEN DIAGNOSTIC KIT) injection 1 mg 09-03 05:32: 41 Yes 1mg 1 mg, Intramuscu lar, PRN, Starting on Thu09/03/22 at 0032, Until Discontinu ed, SYED, Blood Glucose < or = 70 mg/dL and patient is NPO, unable to swallow or has mental changes. [facility] dextrose 50 % in water (D50W) injection 25 mL 09-03 05:32: 41 Yes 25mL 25 mL, Slow IV Push, PRN, Starting on Thu09/03/22 at 0032, Until Discontinu ed, SYED, Blood Glucose < or = 70 mg/dL and patient is NPO, unable to swallow or has mental status changes. [facility] albuterol (VENTOLIN) inhaler 1 Puff 09-03 02:57: 58 Yes 1{puff} 1 Puff, Inhalation , Q4HPRN, Starting on Thu09/02/22 at 215, Until Discontinu ed, Routine, Wheezing, Shortness of Breath [facility] dextrometho rphan-guaif enesin (ROBITUSSIN DM) 10-100 mg/5 mL solution 5 mL 09-03 02:57: 49 Yes 5mL 5 mL, Oral, Q6HPRN, Starting on Thu09/02/22 at 215, Until Discontinu ed, Routine, Cough [facility] acetaminoph en-codeine (TYLENOL #3) 300-30 mg tablet 1 tablet 09-03 02:56: 30 Yes 1{tbl} 1 tablet, Oral, Q4HPRN, Starting on Thu09/02/22 at 2155, Until Discontinu ed, Routine, Pain (scale 4-6) [facility] ondansetron (ZOFRAN (PF)) injection 4 mg 09-03 02:56: 20 Yes 4mg 4 mg, Slow IV Push, Q6HPRN, Starting on Thu09/02/22 at 2155, Until Discontinu ed, Routine, Nausea and Vomiting (N/V) [facility] acetaminoph en (TYLENOL) tablet 650 mg 09-03 02:53: 36 Yes 650mg 650 mg, Oral, Q6HPRN, Starting on Thu09/02/22 at 215, Until Discontinu ed, Routine, Pain (scale 1-3) [facility] ARIPIPRAZOL E 5MG 09-03 00:00: 00 09-29 00:00 :00 No 5000 Surendra White DULOXETINE 30MG DR 09-02 00:00: 00 09-29 00:00 :00 No [id number] Surendra White CARVEDILOL 12.5MG 09-01 00:00: 00 09-29 00:00 :00 No [id number] Surendra White POT CHLORIDE 10MEQ ER 404 00:00: 00 09-29 00:00 :00 No Surendra White FENOFIBRATE 134MG 08-19 00:00: 00 09-29 00:00 :00 No [id number] Surendra Vandana Christopher TAKE 1 TABLET TWICE A DAY 08-12 00:00: 00 09-29 00:00 :00 No 125 Surendra White TAKE 1 CAPSULE TWICE DAILY. 08-12 00:00: 00 09-29 00:00 :00 No 30 Surendra Vandana Christopher TAKE 1 TABLET TWICE DAILY WITH MEALS 08-12 00:00: 00 09-29 00:00 :00 No 1000 Surendra Vandana Christopher TAKE 1 CAPSULE BY MOUTH ONCE DAILY 08-12 00:00: 00 09-29 00:00 :00 No Surendra White TAKE 1/2 TABLET BY MOUTH AT BEDTIME 08-12 00:00: 00 09-29 00:00 :00 No [...] White TAKE 1 TABLET TWICE A DAY 08-08 00:00: 00 09-29 00:00 :00 No 125 Surendra F Christopher TAKE 1/2 TABLET BY MOUTH AT BEDTIME 08-06 00:00: 00 09-29 00:00 :00 No Surendra White once in the morning 08-05 00:00: 00 09-29 00:00 :00 No 40 Surendra White 1/2 tab daily 08-05 00:00: 00 09-29 00:00 :00 No 5 Surendra White TAKE 1 TABLET TWICE A DAY 07-23 00:00: 00 09-29 00:00 :00 No 125 Surendra White LEVEMIR FLEX 100U/ML PEN 07-23 00:00: 00 09-29 00:00 :00 No Surendra White CLOBETASOL 0.05% CRE 3-08 00:00: 00 09-29 00:00 :00 No Surendra White METFORMIN 1000MG 3- 00:00: 00 09-29 00:00 :00 No [id number] Surendra White FLUOCIN BODY 0.01% OIL 2-06 00:00: 00 09-29 00:00 :00 No Surendra White ARIPIPRAZOL E 5MG 06-19 00:00: 00 09-29 00:00 :00 No 5000 Surendra White TAKE 1 TABLET TWICE DAILY WITH MEALS - 00:00: 00 09-29 00:00 :00 No 1000 Surendra White TAKE 1 CAPSULE BY MOUTH EVERY DAY - 00:00: 00 09-29 00:00 :00 Alix White FENOFIBRATE 134MG 06-02 00:00: 00 09-29 00:00 :00 No Surendra White CARVEDILOL 12.5MG -13 00:00: 00 09-29 00:00 :00 Alix White BIOTIN ORAL 05-27 16:16: 41 Yes 2000mg Take 2,000 mg by mouth daily. [facility] GABAPENTIN ORAL 05-27 16:16: 41 Yes 800mg Take 800 mg by mouth 3 (three) times daily. [facility] metFORMIN (GLUCOPHAGE ) 1,000 mg tablet 05-27 16:16: 41 Yes 1000mg Take 1,000 mg by mouth 2 (two) times daily with meals. [facility] potassium chloride (K-DUR) 10 mEq CR tablet 05-27 16:16: 41 Yes 20meq Take 20 mEq by mouth daily. [facility] tolterodine LA (DETROL LA) 4 mg 24 hr capsule 05-27 16:16: 41 Yes 4mg Take 4 mg by mouth daily. [facility] ezetimibe (ZETIA) 10 mg tablet 05-27 16:16: 41 Yes 10mg Take 10 mg by mouth daily. [facility] Fentanyl, Bulk, 100 % Powd 05-27 16:16: 41 Yes [facility] insulin glargine 100 unit/mL injection 05-27 16:16: 41 Yes 15U inject 15 Units under the skin every morning. [facility] insulin glargine 100 unit/mL injection 05-27 16:16: 41 Yes 25U inject 25 Units under the skin every evening. [facility] diazePAM 5 mg tablet 05-27 16:16: 41 Yes (Schedule IV Drug) TAKE 1 TABLET BY MOUTH EVERY EVENING [facility] DULoxetine 60 mg capsule 05-27 16:16: 41 Yes 1{capsu le} Take 1 capsule by mouth in the morning. [facility] Fenofibrate 150 mg capsule 05-27 16:16: 41 Yes 1{capsu le} Take 1 capsule by mouth in the morning. [facility] losartan 50 mg tablet 05-27 16:16: 41 Yes 1{tbl} Take 1 tablet by mouth in the morning. [facility] raloxifene 60 mg tablet 05-27 16:16: 41 Yes 1 tablet [facility] pantoprazol e 40 mg EC tablet 05-23 00:00: 00 Yes 40mg Take 1 tablet by mouth in the morning. [facility] PANTOPRAZOL E 40MG DR 05-23 00:00: 00 09-29 00:00 :00 Alix White ARIPIPRAZOL E 5MG 05-19 00:00: 00 09-29 00:00 :00 Alix White DULoxetine 30 mg capsule 2021-05 00:00: 00 Yes 30mg Take 1 capsule by mouth in the morning. [facility] LEVEMIR FLEX 100U/ML PEN 2021-05 00:00: 00 09-29 00:00 :00 No Surendra White TAKE 1 CAPSULE 4 TIMES DAILY. 2021-05 00:00: 00 09-29 00:00 :00 No Surendra White INJECT 32 UNITS IN THE AM AND 47 UNITS IN THE PM 2021-05 00:00: 00 09-29 00:00 :00 No Surendra White DULOXETINE HCL 30MG DR 2021-05 00:00: 00 09-29 00:00 :00 No 30 Surendraaudrey White Dose Unknown 2021-05 00:00: 00 09-29 00:00 :00 No Surendra White TAKE 1 TABLET BY MOUTH EVERY DAY 2021-05 00:00: 00 09-29 00:00 :00 No 75 Surendra F Christopher Dose Unknown 2021-05 00:00: 00 09-29 00:00 :00 No Surendra White TAKE 1 TABLET BY MOUTH EVERY DAY IN THE MORNING 2021-05 00:00: 00 09-29 00:00 :00 No 50 Surendraaudrey White TAKE 1 TABLET BY MOUTH THREE TIMES A DAY 2021-05 00:00: 00 09-29 00:00 :00 No 800 Surendra White TAKE 1 TABLET BY MOUTH EVERY DAY AT NIGHT 2021-05 00:00: 00 09-29 00:00 :00 No 5 Surendra White METFORMIN 1000MG TAB 2021-05 00:00: 00 09-29 00:00 :00 No 1000 Surendra White TAKE 1 CAPSULE TWICE DAILY. 2021-05 00:00: 00 09-29 00:00 :00 No Surendra White TAKE 1 TABLET TWICE DAILY. 2021-05 00:00: 00 09-29 00:00 :00 No 1000uni t Surendra White EZETIMIBE 10MG TAB 2021-05 2 00:00: 00 09-29 00:00 :00 No 1000 Surendra F Christopher Dose Unknown 2021-05 2 00:00: 00 09-29 00:00 :00 No 1000 Surendra F Christopher APPLY TOPICALLY TWICE A DAY TO AFFECTED AREA 2021-05 2 00:00: 00 09-29 00:00 :00 No 1000 Surendra F Christopher Dose Unknown 2021-05 00:00: 00 09-29 00:00 :00 No Surendra F Christopher POTASSIUM CHLORIDE ER 10MEQ ER 2021-05 00:00: 00 09-29 00:00 :00 No Surendar White OLANZAPINE 5MG TAB 2021-05 00:00: 00 09-29 00:00 :00 No 1000 Surendra F Christopher TAKE 1 TABLET BY MOUTH EVERY DAY 2021-05 00:00: 00 09-29 00:00 :00 No 75 Surendra F Christopher TAKE 1 TABLET BY MOUTH TWICE A DAY 2021-05 00:00: 00 09-29 00:00 :00 No Surendra F Christopher TAKE 1 CAPSULE BY MOUTH EVERY MORNING 2021-05 00:00: 00 09-29 00:00 :00 No 1000 Surendra F Christopher CIPROFLOXAC IN HYDROCHLORI 500MG TAB 2021-05 00:00: 00 09-29 00:00 :00 No 1000 Surendra F Christopher NITROFURANT OIN MACROCRYST 100MG 2021-05 00:00: 00 09-29 00:00 :00 No 1000 Surendra F Christopher Dose Unknown 2021-05 2 00:00: 00 09-29 00:00 :00 No Surendra F Christopher Dose Unknown 2021-05 00:00: 00 09-29 00:00 :00 No Surendra F Christopher TAKE 1 TABLET BY MOUTH TWICE A DAY 2021-05 2 00:00: 00 09-29 00:00 :00 No 1000 Surendra F Christopher Dose Unknown 2021-05 00:00: 00 09-29 00:00 :00 No 1000 Surendra F Christopher Dose Unknown 2021-05 2-13 00:00: 00 09-29 00:00 :00 No 1000 Surendra F Christopher ROPINIROLE HCL 0.5MG TAB 2021-05 2-13 00:00: 00 09-29 00:00 :00 No 75 [...] No Surendra F Christopher TAKE 1 TABLET DAILY. 2021-05 2-12 00:00: 00 09-29 00:00 :00 No 10 Surendra F Christopher CLOBETASOL 0.05% CRE 2021-05 2-08 00:00: 00 09-29 00:00 :00 No Surendra F Christopher FLUOCIN BODY 0.01% OIL 2021-05 2- 00:00: 00 09-29 00:00 :00 No Surendra White TAKE 1 TABLET BY MOUTH EVERY DAY 2021-05 00:00: 00 09-29 00:00 :00 No Surendra White FUROSEMIDE 20MG 2021-05 00:00: 00 09-29 00:00 :00 No [id number] Surendra White NITROFURANT OIN MONOHYDRAT 100MG CAP 2021-05 00:00: 00 09-29 00:00 :00 No Surendra F Christopher Dose Unknown 2021-05 00:00: 00 09-29 00:00 :00 No 50 Surendra F Christopher LEVEMIR FLEX 100U/ML PEN 2021-05 00:00: 00 09-29 00:00 :00 No [id number] Surendra F Christopher TAKE 1 CAPSULE BY MOUTH FOUR TIMES A DAY 2021-05 00:00: 00 09-29 00:00 :00 No Surendra White 40 UNITS QAM, 45 UNITS QPM 2021-05 00:00: 00 09-29 00:00 :00 No 100 Surendra F Christopher TAKE 1 TABLET BY [...] AND 47 UNITS IN THE PM 2021-05 1-04 00:00: 00 09-29 00:00 :00 No Surendra White DULOXETINE 30MG DR 2021-05 1- 00:00: 00 09-29 00:00 :00 No [id number] Surendra White TAKE 0.5/HALF TABLETS BY MOUTH AT BEDTIME 2021-05 00:00: 00 No TAKE 1/2 TABLET BY MOUTH AT BEDTIME 2021-05 00:00: 00 09-29 00:00 :00 No 500 Surendra F Christopher TAKE 2 TABLETS BY MOUTH DAILY 2021-05- 00:00: 00 No 125 Dose Unknown 2021-05 0- 00:00: 00 09-29 00:00 :00 No 500 Surendra White TAKE 1 CAPSULE BY MOUTH TWICE A DAY 2021-05 0 00:00: 00 No TAKE 1 CAPSULE BY MOUTH TWICE A DAY 2021-05 025 00:00: 00 09-29 00:00 :00 No Surednra White ARIPIPRAZOL E 5MG 2021-05 0-18 00:00: 00 09-29 00:00 :00 No 5000 Surendra White PANTOPRAZOL E 40MG DR 2021-05 0-17 00:00: 00 09-29 00:00 :00 No [id number] Surendra White TAKE 1 TABLET TWICE A DAY 2021-05 0-14 00:00: 00 09-29 00:00 :00 No Surendra White APPLY THIN FILM TO AFFECTED AREA 3 TIMES DAILY FOR 7 TO 10 DAYS. 2021-05 0-04 00:00: 00 09-29 00:00 :00 No Surendra White Dose Unknown 2021-05 0-03 00:00: 00 No GABAPENTIN 800MG TAB 2021-05 0-03 00:00: 00 09-29 00:00 :00 No 1000 Surendra White GABAPENTIN 800MG -19 00:00: 00 09-29 00:00 :00 No [id number] Surendra White MUPIROCIN 2% OIN 9-16 00:00: 00 09-29 00:00 :00 No 2000 Surendra White PANTOPRAZOL E SODIUM 40MG DR TAB 0 -15 00:00: 00 No PANTOPRAZOL E SODIUM 40MG DR TAB 0 15 00:00: 00 09-29 00:00 :00 No Surendra White DULOXETINE HCL 30MG DR CAP 0 - 00:00: 00 No DULOXETINE HCL 30MG DR CAP 0 -14 00:00: 00 09-29 00:00 :00 No Surendraaudrey White LOSARTAN POTASSIUM 50MG 0 - 00:00: 00 09-29 00:00 :00 No Surendra White FUROSEMIDE 20MG - 00:00: 00 09-29 00:00 :00 No [id number] Surendra White Dose Unknown - 00:00: 00 No Dose Unknown - 00:00: 00 09-29 00:00 :00 No 1000 Surendra White Dose Unknown - 00:00: 00 Yes 1000 Surendra White TAKE 1 TABLET BY MOUTH EVERY DAY AT NIGHT 0 - 00:00: 00 No METFORMIN HYDROCHLORI DE 1000MG -05 00:00: 00 09-29 00:00 :00 No [id number] Surendra White EZETIMIBE 10MG 9- 00:00: 00 09-29 00:00 :00 No [id number] Surendra White TAKE 1 CAPSULE BY MOUTH TWICE A DAY 0 - 00:00: 00 Yes 30 Surendra White TAKE 1 CAPSULE BY MOUTH TWICE A DAY 2021-0 - 00:00: 00 No 30 TAKE 1 CAPSULE BY MOUTH TWICE A DAY 2021-0 - 00:00: 00 No 30 LOSARTAN POTASSIUM 50MG TAB 0 -18 00:00: 00 Yes 50 Surendra White TAKE 1 CAPSULE BY MOUTH EVERY MORNING 2021-0 -18 00:00: 00 Yes 134 Surendra White LOSARTAN POTASSIUM 50MG TAB 2021-0 8-18 00:00: 00 No 50 TAKE 1 CAPSULE BY MOUTH EVERY MORNING 2022-0 8-18 00:00: 00 No 134 LOSARTAN POTASSIUM 50MG TAB 2021-0 8-18 00:00: 00 No 50 TAKE 1 CAPSULE BY MOUTH EVERY MORNING 2021-0 18 00:00: 00 No 134 &lt 2022-0 8-11 00:00: 00 Yes Surendra White &lt 2022-0 8-11 00:00: 00 No &lt 2022-0 8-11 00:00: 00 No &lt 2022-0 8-10 00:00: 00 Yes 5 Surendra White Dose Unknown 2021-0 8- 00:00: 00 Yes 2 Surendra White APPLY 1 GM ON THE SKIN DAILY 2021-0 8- 00:00: 00 Yes Surendra White TAKE 0.5/HALF TABLETS BY MOUTH AT BEDTIME 2021-0 8- 00:00: 00 Yes 5 Surendra White &lt 2022-0 8- 00:00: 00 Yes Surendra White &lt 2022-0 8- 00:00: 00 Yes 20 Surendra White &lt 2022-0 8-10 00:00: 00 [...] 8-10 00:00: 00 No 20 &lt 2022-0 8-10 00:00: 00 No 30 &lt 2022-0 8-10 00:00: 00 No 5 Dose Unknown 2021-0 8-10 00:00: 00 No 2 APPLY 1 GM ON THE SKIN DAILY 2021-0 8-10 00:00: 00 No TAKE 0.5/HALF TABLETS BY MOUTH AT BEDTIME 2021-0 8-10 00:00: 00 No 5 &lt 2022-0 8-10 00:00: 00 No &lt 2022-0 8-10 00:00: 00 No 20 &lt 2022-0 8-10 00:00: 00 No 30 &lt 2022-0 12-24 00:00: 00 Yes 40 Surendraaudrey White Dose Unknown 2021-0 12-24 00:00: 00 Yes 800 Surendra White APPLY 1 GM ON THE SKIN DAILY 2021-0 12-24 00:00: 00 Yes Surendraaudrey White &lt 2022-0 12-24 00:00: 00 Yes 20 Surendra F Christopher Dose Unknown 2021-0 12-24 00:00: 00 Yes Surendra F Christopher Dose Unknown 2-0 12-24 00:00: 00 Yes 10 Surendra F Christopher &lt 2022-0 12-24 00:00: 00 Yes Surendra F Christopher &lt 2022-0 12-24 00:00: 00 Yes 30 Surendra White TAKE 2 TABLETS BY MOUTH EVERY DAY 2021-0 12-24 00:00: 00 Yes 125 Surendraaudrey White Dose Unknown 2021-0 12-24 00:00: 00 Yes 2 Surendra White &lt 2-0 12-24 00:00: 00 No 40 Dose Unknown 2-0 12-24 00:00: 00 No 800 APPLY 1 GM ON THE SKIN DAILY 2021-0 12-24 00:00: 00 No &lt 2022-0 12-24 00:00: 00 No 20 Dose Unknown 2-0 12-24 00:00: 00 No Dose Unknown 2-0 12-24 00:00: 00 No 10 &lt 2022-0 12-24 00:00: 00 No &lt 2022-0 12-24 00:00: 00 No 30 TAKE 2 TABLETS BY MOUTH EVERY DAY 2021-0 12-24 00:00: 00 No 125 Dose Unknown 2-0 12-24 00:00: 00 No 2 &lt 2022-0 12-24 00:00: 00 No 40 Dose Unknown 2-0 12-24 00:00: 00 No 800 APPLY 1 GM ON THE SKIN DAILY 2021-0 12-24 00:00: 00 No &lt 2022-0 12-24 00:00: 00 No 20 Dose Unknown 2-0 12-24 00:00: 00 No Dose Unknown 2-0 12-24 00:00: 00 No 10 &lt 2022-0 - 00:00: 00 No &lt 2022-0 12-24 00:00: 00 No 30 TAKE 2 TABLETS BY MOUTH EVERY DAY 2021-0 12-24 00:00: 00 No 125 Dose Unknown 0 12-24 00:00: 00 No 2 TAKE 1 CAPSULE BY MOUTH TWICE A DAY WITH FOOD 2021-0 12-24 00:00: 00 05-15 00:00 :00 No Surendra White Levemir FlexTouch U-100 Insulin 100 unit/mL (3 mL) subcutaneou s pen 0 12-23 00:00: 00 Yes (3 mL) Surendra White ezetimibe 10 mg tablet 2021-0 12-23 00:00: 00 Yes 1mg Surendra White Dose Unknown 0 12-23 00:00: 00 No ezetimibe 10 mg tablet 2021-0 12-23 00:00: 00 No 1mg Levemir FlexTouch U-100 Insulin 100 unit/mL (3 mL) subcutaneou s pen 0 12-23 00:00: 00 No (3 mL) ezetimibe 10 mg tablet 0 12-23 00:00: 00 No 1mg &lt 2022-0 8- 00:00: 00 No 2 &lt 2022-0 8- 00:00: 00 No 10 &lt 2022-0 8- 00:00: 00 No 20 &lt 2022-0 8- 00:00: 00 No &lt 2022-0 8- 00:00: 00 No 2 &lt 2022-0 8- 00:00: 00 No 10 &lt 2022-0 8- 00:00: 00 Yes 20 Surendra White &lt 2022-0 8- 00:00: 00 Yes Surendra White &lt 2022-0 8- 00:00: 00 Yes 2 Surendra White &lt 2022-0 8- 00:00: 00 Yes 10 Surendra White &lt 2022-0 8- 00:00: 00 No 20 &lt 2022-0 8- 00:00: 00 No aripiprazol e 5 mg tablet 2021-0 12-12 00:00: 00 No 5mg duloxetine 30 mg capsule,del ayed release 2021-0 12-12 00:00: 00 No 1mg TAKE 1 TABLET BY MOUTH THREE TIMES A DAY 2021-0 12-12 00:00: 00 No 800 &lt 2022-0 12-12 00:00: 00 No 500 Dose Unknown 2021-0 12-12 00:00: 00 No Dose Unknown 2021-0 12-12 00:00: 00 No 5 Dose Unknown 0 12-12 00:00: 00 No Dose Unknown 2021-0 12-12 00:00: 00 No 2 &lt 2022-0 12-12 00:00: 00 No 5 aripiprazol e 5 mg tablet 0 12-12 00:00: 00 No 5mg duloxetine 30 mg capsule,del ayed release 0 12-12 00:00: 00 No 1mg TAKE 1 TABLET BY MOUTH THREE TIMES A DAY 0 12-12 00:00: 00 No 800 &lt 2021-0 12-12 00:00: 00 No 500 Dose Unknown 0 12-12 00:00: 00 No Dose Unknown 0 12-12 00:00: 00 No 5 Dose Unknown 0 12-12 00:00: 00 No Dose Unknown 2021-0 12-12 00:00: 00 No 2 &lt 2021-0 12-12 00:00: 00 No 5 aripiprazol e 5 mg tablet 0 12-12 00:00: 00 Yes 5mg Surendra F Christopher duloxetine 30 mg capsule,del ayed release 2021-0 12-12 00:00: 00 Yes 1mg Surendra F Christopher TAKE 1 TABLET BY MOUTH THREE TIMES A DAY 0 12-12 00:00: 00 Yes 800 Surendra F Christopher &lt 2-0 12-12 00:00: 00 Yes 500 Surendra F Christopher Dose Unknown 2021-0 12-12 00:00: 00 Yes Surendra F Christopher Dose Unknown 2021-0 12-12 00:00: 00 Yes 5 Surendra F Christopher Dose Unknown 2021-0 12-12 00:00: 00 Yes Surendra F Christopher Dose Unknown 2021-0 12-12 00:00: 00 Yes 2 Surendra F Christopher &lt 2022-0 12-12 00:00: 00 Yes 5 Surendra F Christopher &lt 2022-0 12-10 00:00: 00 No &lt 2022-0 12-10 00:00: 00 No 20 &lt 2022-0 12-10 00:00: 00 No &lt 2022-0 12-10 00:00: 00 No 20 &lt 2022-0 12-10 00:00: 00 Yes Surendra White &lt 2022-0 12-10 00:00: 00 Yes 20 Surendra White PANTOPRAZOL E SODIUM 40MG DR 2021-0 12-06 00:00: 00 05 00:00 :00 No [id number] Surendra White TAKE 2 TABLETS BY MOUTH [...] 2-0 12-04 00:00: 00 Yes 125 Surendra White &lt 2-0 12-04 00:00: 00 Yes 40 Surendra White &lt 2022-0 12-04 00:00: 00 Yes 10 Surendra White Dose Unknown 2021-0 12-04 00:00: 00 Yes Surendra White &lt 2022-0 11-28 00:00: 00 No 500 Dose Unknown 2021-0 11-28 00:00: 00 No 2 APPLY 1 GM ON THE SKIN DAILY 2021-0 11-28 00:00: 00 No &lt 2022-0 11-28 00:00: 00 No 500 Dose Unknown 2021-0 11-28 00:00: 00 No 2 APPLY 1 GM ON THE SKIN DAILY 2021-0 11-28 00:00: 00 No &lt 2022-0 11-28 00:00: 00 Yes 500 Surendraaudrey White Dose Unknown 2021-0 11-28 00:00: 00 Yes 2 Surendra White APPLY 1 GM ON THE SKIN DAILY 0 14 00:00: 00 Yes Surendra F Christopher &lt 2022-0 11-22 00:00: 00 No 5 &lt 2022-0 11-22 00:00: 00 No 40 &lt 2022-0 11-22 00:00: 00 No 20 Dose Unknown 2022-0 11-22 00:00: 00 No 2 &lt 2022-0 7 00:00: 00 No &lt 2022-0 11-22 00:00: [...] 2022-0 11-22 00:00: 00 Yes 5 Surendra F Christopher &lt 2022-0 11-22 00:00: 00 Yes 40 Surendra F Christopher &lt 2022-0 11-22 00:00: 00 Yes 20 Surendra F Christopher Dose Unknown 2022-0 11-22 00:00: 00 Yes 2 Surendra F Christopher &lt 2022-0 11-22 00:00: 00 Yes Surendra F Christopher &lt 2022-0 11-22 00:00: 00 Yes Surendra F Christopher &lt 2022-0 11-22 00:00: 00 Yes 10 Surendra F Christopher Dose Unknown 2022-0 11-22 00:00: 00 Yes 800 Surendra White Dose Unknown 2021-0 11-22 00:00: 00 Yes Surendra White TAKE 0.5/HALF TABLETS BY MOUTH AT BEDTIME 2021-0 11-22 00:00: 00 Yes 5 Surendra White &lt 2-0 11-21 00:00: 00 No &lt 2022-0 7 00:00: 00 No &lt 2022-0 11-21 00:00: 00 Yes Surendra White &lt 2022-0 7- 00:00: 00 No 2 &lt 2022-0 7- 00:00: 00 No 2 &lt 2022-0 7- 00:00: 00 Yes 2 Surendra White aripiprazol e 5 mg tablet 2021-0 11-15 00:00: 00 No 5mg &lt 2022-0 7- [...] No aripiprazol e 5 mg tablet 2-0 7 00:00: 00 Yes 5mg Surendra White &lt 2-0 7- 00:00: 00 Yes Surendra White TAKE 1 TABLET BY MOUTH THREE TIMES A DAY 2021-0 7- 00:00: 00 Yes Surendra White &lt 2-0 7- 00:00: 00 Yes Surendra White Abilify 2 mg tablet 2021-0 11-14 00:00: 00 No 15mg duloxetine 30 mg capsule,del ayed release 2-0 11-14 00:00: 00 No 1mg &lt 2022-0 630 00:00: 00 No Abilify 2 mg tablet 2-0 11-14 00:00: 00 No 15mg duloxetine 30 mg capsule,del ayed release 11-14 00:00: 00 No 1mg &lt 11-14 00:00: 00 No Abilify 2 mg tablet 11-14 00:00: 00 Yes 15mg Surendra White duloxetine 30 mg capsule,del ayed release 11-14 00:00: 00 Yes 1mg Surendra White &lt 11-14 00:00: 00 Yes Surendra White &lt 11-12 00:00: 00 No TAKE 1 TABLET BY MOUTH EVERY DAY IN THE MORNING 11-12 00:00: 00 No TAKE 2 TABLETS BY MOUTH DAILY 11-12 00:00: 00 No &lt 11-12 00:00: 00 No TAKE 1 TABLET BY MOUTH EVERY DAY IN THE MORNING 11-12 00:00: 00 No TAKE 2 TABLETS BY MOUTH DAILY 11-12 00:00: 00 No &lt 11-12 00:00: 00 Yes Surendra White TAKE 1 TABLET BY MOUTH EVERY DAY IN THE MORNING 11-12 00:00: 00 Yes Surendra White TAKE 2 TABLETS BY MOUTH DAILY 11-12 00:00: 00 Yes Surendra White GABAPENTIN 800MG 11-06 00:00: 00 09-29 00:00 :00 No [id number] Surendra White metformin 1,000 mg tablet 11-02 00:00: 00 No 1mg furosemide 20 mg tablet 11-02 00:00: 00 No 1mg losartan 50 mg tablet 11-02 00:00: 00 No 1mg metformin 1,000 mg tablet 11-02 00:00: 00 No 1mg furosemide 20 mg tablet 11-02 00:00: 00 No 1mg losartan 50 mg tablet 11-02 00:00: 00 No 1mg metformin 1,000 mg tablet 11-02 00:00: 00 Yes 1mg Surendra White furosemide 20 mg tablet 11-02 00:00: 00 Yes 1mg Surendra White losartan 50 mg tablet 11-02 00:00: 00 Yes 1mg Surendra White metformin 1,000 mg tablet 0 16 00:00: 00 No 1mg furosemide 20 mg tablet 0 16 00:00: 00 No 1mg metformin 1,000 mg tablet 0 16 00:00: 00 No 1mg furosemide 20 mg tablet 0 16 00:00: 00 No 1mg metformin 1,000 mg tablet 2021-0 10-31 00:00: 00 Yes 1mg Surendra White furosemide 20 mg tablet 0 10-31 00:00: 00 Yes 1mg Surendra White CARVEDILOL 12.5MG 2021-0 10-31 00:00: 00 09-29 00:00 :00 No [id number] Surendra White &lt 0 10-28 00:00: 00 No &lt 2022-0 10-28 00:00: 00 No &lt 2021-0 10-28 00:00: 00 Yes Surendra White Abilify 2 mg tablet 0 10-17 00:00: 00 No 15mg duloxetine 30 mg capsule,del ayed release 0 10-17 00:00: 00 No 1mg &lt 2021-0 10-17 00:00: 00 No TAKE 1 TABLET BY MOUTH EVERY DAY 2021-0 10-17 00:00: 00 No Abilify 2 mg tablet 2021-0 10-17 00:00: 00 No 15mg duloxetine 30 mg capsule,del ayed release 2021-0 10-17 00:00: 00 No 1mg &lt 2021-0 10-17 00:00: 00 No TAKE 1 TABLET BY MOUTH EVERY DAY 2021-0 10-17 00:00: 00 No Abilify 2 mg tablet 2021-0 10-17 00:00: 00 Yes 15mg Surendra White duloxetine 30 mg capsule,del ayed release 0 10-17 00:00: 00 Yes 1mg Surendra White &lt 2021-0 10-17 00:00: 00 Yes Surendra White TAKE 1 TABLET BY MOUTH EVERY DAY 2021-0 10-17 00:00: 00 Yes Surendra White &lt 2022-0 6 00:00: 00 No &lt 2022-0 6-01 00:00: 00 No &lt 2022-0 6-01 00:00: 00 Yes Surendra White Abilify 2 mg tablet 2-0 5-17 00:00: 00 No 15mg duloxetine 30 mg capsule,del ayed release 2-0 5-17 00:00: 00 No 1mg Abilify 2 mg tablet 2-0 5-17 00:00: 00 No 15mg duloxetine 30 mg capsule,del ayed release 2-0 5-17 00:00: 00 No 1mg Abilify 2 mg tablet 2-0 5-17 00:00: 00 Yes 15mg Surendra White duloxetine 30 mg capsule,del ayed release 2021-0 5-17 00:00: 00 Yes 1mg Surendra White [...] No 1mg cefuroxime axetil 500 mg tablet 2021-0 - 00:00: 00 No 1mg aripiprazol e 5 mg tablet 2021-0 - 00:00: 00 No 5mg gabapentin 800 mg tablet 2021-0 - 00:00: 00 No 1mg Abilify 2 mg tablet 2021-0 - 00:00: 00 No 2mg Abilify 2 mg tablet 2021-0 - 00:00: 00 No 15mg duloxetine 30 mg capsule,del ayed release 2-0 - 00:00: 00 No 1mg fenofibrate micronized 134 [...] Surendra White cefuroxime axetil 500 mg tablet 09-10 00:00: 00 Yes 1mg Surendra White aripiprazol e 5 mg tablet 09-10 00:00: 00 Yes 5mg Surendra White gabapentin 800 mg tablet 09-10 00:00: 00 Yes 1mg Surendra White Abilify 2 mg tablet 09-10 00:00: 00 Yes 2mg Surendra White duloxetine 30 mg capsule,del ayed release 09-10 00:00: 00 Yes 1mg Surendra White fenofibrate micronized 134 mg capsule 2022-0 4-26 00:00: 00 Yes 1mg Surendra White potassium chloride ER 10 mEq capsule,ext ended release 2022-0 4-26 00:00: 00 Yes 1mEq Surendra White Dose Unknown 2022-0 4-01 00:00: 00 No Dose Unknown 2022-0 4-01 00:00: 00 No Dose Unknown 2022-0 4-01 00:00: 00 No Dose Unknown 2022-0 4-01 00:00: 00 No Dose Unknown 2022-0 4-01 00:00: 00 Yes Surendra White Dose Unknown 2022-0 4-01 00:00: 00 Yes Surendra White Dose Unknown 2022-0 3-24 00:00: 00 No Dose Unknown 2022-0 3-24 00:00: 00 No Dose Unknown 2022-0 3-24 00:00: 00 Yes Surendra White Dose Unknown 2022-0 3-22 00:00: 00 No Dose Unknown 2022-0 3-22 00:00: 00 No Dose Unknown 2022-0 3-22 00:00: 00 Yes Surendra White FENOFIBRATE MICRONIZED 134MG 2022-0 3-21 00:00: 00 2024- 05-15 00:00 :00 No [id number] Surendra White Dose Unknown 2022-0 3-17 00:00: [...] 00 Yes 1mg Surendra White Dose Unknown 2022-0 3-03 00:00: 00 Yes Surendra White Dose Unknown 2022-0 3-03 00:00: 00 Yes Surendra White Dose Unknown 2022-0 3-03 00:00: 00 Yes Surendra White Dose Unknown 2022-0 3-03 00:00: 00 Yes Surendra White Dose Unknown 2022-0 3-03 00:00: 00 Yes Surendra White ROPINIROLE HCL 0.5MG 2-0 2-28 00:00: 00 2023- 05-15 00:00 :00 No 500 Surendra White Abilify 2 mg tablet 2- 00:00: 00 No 1mg Abilify 2 mg tablet 2 00:00: 00 No 1mg Abilify 2 mg tablet 2 00:00: 00 Yes 1mg Surendra White TAKE 1 TABLET BY MOUTH EVERY DAY 2 00:00: 00 09-29 00:00 :00 No Surendra White Macrobid 100 mg capsule 2- 00:00: 00 No 1mg Macrobid 100 mg capsule 2- 00:00: 00 No 1mg Macrobid 100 mg capsule 2- 00:00: 00 Yes 1mg Surendra White metformin 1,000 mg tablet 1- 00:00: 00 No 1mg metformin 1,000 mg tablet 0 1- 00:00: 00 No 1mg metformin 1,000 mg tablet - 00:00: 00 Yes 1mg Surendra White Abilify 2 mg tablet 1- 00:00: 00 No 1mg Dose Unknown 1- 00:00: 00 No Abilify 2 mg tablet 1- 00:00: 00 No 1mg Dose Unknown 0 1- 00:00: 00 No Abilify 2 mg tablet 0 1- 00:00: 00 Yes 1mg Surendra White Dose Unknown 1- 00:00: 00 Yes Surendra White ezetimibe 10 mg tablet 2020-05 2- 00:00: 00 No 1mg carvedilol 12.5 mg tablet 2020-05 2-24 00:00: 00 No 2mg furosemide 20 mg tablet 2020-05 2-24 00:00: 00 No 1mg Dose Unknown 2020-05 2- 00:00: 00 No ezetimibe 10 mg tablet 2020-05 2- 00:00: 00 No 1mg carvedilol 12.5 mg tablet 2020-05 2-24 00:00: 00 No 2mg furosemide 20 mg tablet 2020-05 2-24 00:00: 00 No 1mg Dose Unknown 2020-05 2-24 00:00: 00 No ezetimibe 10 mg tablet 2020-05 2-24 00:00: 00 Yes 1mg Surendra White carvedilol 12.5 mg tablet 2020-05 2-24 00:00: 00 Yes 2mg Surendra White furosemide 20 mg tablet 2020-05 2-24 00:00: 00 Yes 1mg Surendra White Dose Unknown 2020-05 00:00: 00 Yes Surendra White Abilify 2 mg tablet 2020-05 2 00:00: 00 No 1mg duloxetine 30 mg capsule,del ayed release 2020-05 00:00: 00 No 1mg Abilify 2 mg [...] No 1mg Cipro 500 mg tablet 2020-05 1- 00:00: 00 No 1mg Cipro 500 mg tablet 2020-05 00:00: 00 Yes 1mg Surendra White Dose Unknown 2020-05 00:00: 00 No duloxetine 30 mg capsule,del ayed release 2020-05 00:00: 00 No 1mg Zyprexa 5 mg tablet 2020-05 00:00: 00 No 1mg duloxetine 30 mg capsule,del ayed release 2020-05- 00:00: 00 No 1mg Zyprexa 5 mg tablet 2020-0518 00:00: 00 Yes 1mg Surendra White duloxetine 30 mg capsule,del ayed release 2020-0518 00:00: 00 Yes 1mg Surendra White pantoprazol e 40 mg tablet,norm yed release 2020-05-15 00:00: 00 No 1mg pantoprazol e 40 [...] Surendra White Zyprexa 2.5 mg tablet 2020-05 014 00:00: 00 No 1mg duloxetine 30 mg capsule,del ayed release 2020-05 014 00:00: 00 No 1mg Zyprexa 2.5 mg tablet 2020-05 014 00:00: 00 No 1mg duloxetine 30 mg capsule,del ayed release 2020-05 014 00:00: 00 No 1mg Zyprexa 2.5 mg tablet 2020-05 014 00:00: 00 Yes 1mg Surendra White duloxetine 30 mg capsule,del ayed release 2020-05 0-14 00:00: 00 Yes 1mg Surendra White nystatin 100,000 unit/gram topical powder 2020-05 0-07 00:00: 00 No 1unit/g milad duloxetine 30 mg capsule,del ayed release 2020-05 0-07 00:00: 00 No 1mg nystatin 100,000 unit/gram topical powder 2020-05 0-07 00:00: 00 No 1unit/g milad duloxetine 30 mg capsule,del ayed release 2020-05 0-07 00:00: 00 No 1mg nystatin 100,000 unit/gram topical powder 2020-05 0-07 00:00: 00 Yes 1unit/g milad Surendra White duloxetine 30 mg capsule,del ayed [...] 1mg Surendra White ropinirole 0.5 mg tablet 01-01 00:00: 00 Yes 1mg Surendra White duloxetine 30 mg capsule,del ayed release 01-01 00:00: 00 Yes 1mg Surendra White fenofibrate micronized 134 mg capsule 01-01 00:00: 00 Yes 1mg Surendra White Macrodantin 100 mg capsule 11-29 00:00: 00 No 1mg Macrodantin 100 mg capsule 11-29 00:00: 00 No 1mg Macrodantin 100 mg capsule 11-29 00:00: 00 Yes 1mg Surendra White duloxetine 30 mg capsule,del ayed release 11-22 00:00: 00 No 1mg duloxetine 30 mg capsule,del ayed release 11-22 00:00: 00 No 1mg duloxetine 30 mg capsule,del ayed release 11-22 00:00: 00 Yes 1mg Surendra White carvedilol 12.5 mg tablet 10-05 00:00: 00 No 2mg fenofibrate micronized 134 mg capsule 10-05 00:00: 00 No 1mg carvedilol 12.5 mg tablet 10-05 00:00: 00 No 2mg fenofibrate micronized 134 mg capsule 10-05 00:00: 00 No 1mg carvedilol 12.5 mg tablet 10-05 00:00: 00 Yes 2mg Surendra White fenofibrate micronized 134 mg capsule 10-05 00:00: 00 Yes 1mg Surendra White ciprofloxac in 500 mg tablet 08-29 00:00: 00 No 1mg Align 4 mg capsule 08-29 00:00: 00 No 1mg ciprofloxac in 500 mg tablet 08-29 00:00: 00 No 1mg Align 4 mg capsule 08-29 00:00: 00 No 1mg ciprofloxac in 500 mg tablet 08-29 00:00: 00 Yes 1mg Surendra White Align 4 mg capsule 08-29 00:00: 00 Yes 1mg Surendra White nystatin [...] No 1mg pantoprazol e 40 mg tablet,norm naik release 08-15 00:00: 00 No 1mg ropinirole [...] FlexTouch U-100 Insulin 100 unit/mL (3 mL) subcutamarla s pen 07-24 00:00: 00 Yes (3 mL) Surendra White metformin 1,000 mg tablet 3- 00:00: 00 No 1mg gabapentin 800 mg tablet 3- 00:00: 00 No 1mg losartan 50 mg tablet - 00:00: 00 No 1mg metformin 1,000 mg tablet 07-20 00:00: 00 No 1mg gabapentin 800 mg tablet 07-20 00:00: 00 No 1mg losartan 50 mg tablet 07-20 00:00: 00 No 1mg metformin 1,000 mg tablet 07-20 00:00: 00 Yes 1mg Surendra White gabapentin 800 mg tablet 3- 00:00: 00 Yes 1mg Surendra White losartan 50 mg tablet 07-20 00:00: 00 Yes 1mg Surendra White gabapentin 800 mg tablet 2- 00:00: 00 No 1mg gabapentin 800 mg tablet 2- 00:00: 00 No 1mg gabapentin 800 mg tablet 2- 00:00: 00 Yes 1mg Surendra White losartan 50 mg tablet - 00:00: 00 No 1mg losartan 50 mg tablet - 00:00: 00 No 1mg losartan 50 mg tablet 06-05 00:00: 00 Yes 1mg Surendra Wihte metformin 1,000 mg tablet 2019-05 00:00: 00 [...] White Augmentin 875 mg-125 mg tablet 2019-05 00:00: 00 No 1mg Augmentin 875 mg-125 mg tablet 2019-05 0 00:00: 00 No 1mg Augmentin 875 mg-125 mg tablet 2019-05 00:00: 00 Yes 1mg Surendra White losartan 50 mg tablet 2019-05 0 00:00: 00 No 1mg losartan 50 mg tablet 2019-05 00:00: 00 No 1mg losartan 50 mg tablet 2019-05 00:00: 00 Yes 1mg Surendra White Macrodantin 100 mg capsule 2019-05 00:00: 00 No 1mg Macrodantin 100 mg capsule 2019-05 00:00: 00 No 1mg Macrodantin 100 mg capsule 2019-05 00:00: 00 Yes 1mg Surendra White gabapentin 800 mg tablet 12-22 00:00: 00 No 1mg gabapentin 800 mg tablet 12-22 00:00: 00 No 1mg gabapentin 800 mg tablet 12-22 00:00: 00 Yes 1mg Surendra White pantoprazol e 40 mg tablet,norm yed release 3 00:00: 00 No 1mg pantoprazol e 40 mg tablet,norm yed release 3 00:00: 00 No 1mg pantoprazol e 40 mg tablet,norm yed release 3 00:00: 00 Yes 1mg Surendra White ezetimibe 10 mg tablet 07-08 [...] 1 TABLET BY MOUTH EVERY 12 HOURS [facility] ARIPIPRAZOL E 2 mg tablet 2017-05 00:00: 00 Yes TAKE 1 TABLET BY MOUTH EVERY DAY [facility] clonazePAM 1 mg tablet 02-05 00:00: 00 06-08 00:00 :00 No 1mg Take 1 tablet by mouth at bedtime. [facility] BIOTIN ORAL 02-02 16:07: 23 Yes 2000mg Take 2,000 mg by mouth daily. [facility] GABAPENTIN ORAL 02-02 16:07: 23 Yes 800mg Take 800 mg by mouth 3 (three) times daily. [facility] metFORMIN (GLUCOPHAGE ) 1,000 mg tablet 02-02 16:07: 23 Yes 1000mg Take 1,000 mg by mouth 2 (two) times daily with meals. [facility] potassium chloride (K-DUR) 10 mEq CR tablet 02-02 16:07: 23 Yes 20meq Take 20 mEq by mouth daily. [facility] tolterodine LA (DETROL LA) 4 mg 24 hr capsule 02-02 16:07: 23 Yes 4mg Take 4 mg by mouth daily. [facility] ezetimibe (ZETIA) 10 mg tablet 02-02 16:07: 23 Yes 10mg Take 10 mg by mouth daily. [facility] Fentanyl, Bulk, 100 % Powd 02-02 16:07: 23 Yes [facility] insulin glargine (LANTUS) 100 unit/mL injection 02-02 16:07: 23 Yes 15U inject 15 Units under the skin every morning. [facility] insulin glargine (LANTUS) 100 unit/mL injection 02-02 16:07: 23 Yes 25U inject 25 Units under the skin every evening. [facility] rOPINIRole 0.5 mg tablet 02-02 00:00: 00 06-24 00:00 :00 No .5mg Take 1 tablet by mouth at bedtime. [facility] diphenoxyla te-atropine (LOMOTIL) 2.5-0.025 mg per tablet 2016-05 005 00:00: 00 06-08 00:00 :00 No 1{tbl} Take 1 tablet by mouth every 6 (six) hours as needed (diarrhea) . [facility] ipratropium -albuterol 0.5 mg-3 mg(2.5 mg base)/3 mL nebulizer solution 2016-05 00:00: 00 Yes 3mL Inhale 3 mL every 4 (four) hours as needed for Wheezing. [facility] acetaminoph en-codeine (TYLENOL #3) 300-30 mg tablet 10-22 00:00: 00 10-21 00:00 :00 No 1{tbl} Take 1 tablet by mouth every 4 (four) hours as needed for Pain (scale 7-10). [facility] traMADOL (ULTRAM) 50 mg tablet 09-12 00:00: 00 06-08 00:00 :00 No 50mg Take 1 tablet by mouth every 4 (four) hours as needed for Pain (scale 4-6). [facility] carvediloL 6.25 mg tablet 4-09 00:00: 00 03-23 00:00 :00 No 6.25mg Take 1 tablet by mouth in the morning and 1 tablet in the evening. Take with meals. [facility] furosemide (LASIX) 20 mg tablet -15 00:00: 00 09-06 00:00 :00 No 20mg Take 20 mg by mouth daily. [facility] ACCU-CHEK NYA PLUS TEST STRP strip - 00:00: 00 06-08 00:00 :00 No [facility] clopidogrel (PLAVIX) 75 mg tablet -08 00:00: 00 11-01 00:00 :00 No 75mg Take 75 mg by mouth daily. [facility] Immunizations Ordered Immunization Name Filled Immunization Name Date Status Comments Source TD, NOS 2023-12-30 12:01:00 Completed [facility] Influenza High Dose 2023-12-30 12:01:00 Completed [facility] TD, NOS 2023-10-27 00:00:00 Completed [facility] Influenza High Dose 2023-10-27 00:00:00 Completed [facility] TD, NOS 2023-10-21 22:03:00 Completed [facility] Influenza High Dose 2023-10-21 22:03:00 Completed [facility] TD, NOS 2023-09-19 00:00:00 Completed [facility] Influenza High Dose 2023-09-19 00:00:00 Completed [facility] TD, NOS 2023-09-03 00:00:00 Completed [facility] Influenza High Dose 2023-09-03 00:00:00 Completed [facility] TD, NOS 2023-07-28 00:00:00 Completed [facility] Influenza High Dose 2023-07-28 00:00:00 Completed [facility] TD, NOS 2023-07-09 18:38:00 Completed [facility] Influenza High Dose 2023-07-09 18:38:00 Completed [facility] TD, NOS 2023-04-29 13:30:00 Completed [facility] Influenza High Dose 2023-04-29 13:30:00 Completed [facility] TD, NOS 2023 13:19:00 Completed [facility] Influenza High Dose 2023 13:19:00 Completed [facility] TD, NOS 2023-03-28 00:00:00 Completed [facility] Influenza High Dose 2023-03-28 00:00:00 Completed [facility] TD, NOS 2023-03-23 13:40:00 Completed [facility] Influenza High Dose 2023-03-23 13:40:00 Completed [facility] TD, NOS 2023-03-23 00:00:00 Completed [facility] Influenza High Dose 2023-03-23 00:00:00 Completed [facility] TD, NOS 2023-03-02 00:00:00 Completed [facility] Influenza High Dose 2023-03-02 00:00:00 Completed [facility] TD, NOS 2023-02-24 00:00:00 Completed [facility] Influenza High Dose 2023-02-24 00:00:00 Completed [facility] TD, NOS 2023-02-20 00:00:00 Completed [facility] Influenza High Dose 2023-02-20 00:00:00 Completed [facility] TD, NOS 2023-02-16 20:03:49 Completed [facility] Influenza High Dose 2023-02-16 20:03:49 Completed [facility] TD, NOS 2023-02-09 20:03:43 Completed [facility] Influenza High Dose 2023-02-09 20:03:43 Completed [facility] TD, NOS 2023-02-02 14:37:00 Completed [facility] Influenza High Dose 2023-02-02 14:37:00 Completed [facility] TD, NOS 2023-01-12 00:00:00 Completed [facility] Influenza High Dose 2023-01-12 00:00:00 Completed [facility] TD, NOS 2022-09-09 00:00:00 Completed [facility] Influenza High Dose 2022-09-09 00:00:00 Completed [facility] influenza, seasonal vaccine, quadrivalent, adjuvanted, .5mL dose, [...] COVID-19 Vaccine Moderna COVID-19 Vaccine 2020-07-14 00:00:00 Carole White Moderna COVID-19 Vaccine 2020-06-16 00:00:00 Completed Moderna COVID-19 Vaccine 2020-06-16 00:00:00 Completed Moderna COVID-19 Vaccine 2020-06-16 00:00:00 Completed Moderna COVID-19 Vaccine 2020-06-16 00:00:00 Completed Moderna COVID-19 Vaccine Moderna COVID-19 Vaccine 2020-06-16 00:00:00 Carole White Influenza High Dose 2017-02-16 00:00:00 Completed [facility] Influenza High Dose 2017-02-16 00:00:00 Completed [facility] Influenza High Dose 2017-02-16 00:00:00 Completed [facility] Influenza High Dose 2017-02-16 00:00:00 Completed [facility] Influenza High Dose 2017-02-16 00:00:00 Completed [facility] Influenza High Dose 2017-02-16 00:00:00 Completed [facility] Influenza High Dose 2017-02-16 00:00:00 Completed [facility] Influenza High Dose 2017-02-16 00:00:00 Completed [facility] Influenza High Dose 2017-02-16 00:00:00 Completed [facility] Influenza High Dose 2017-02-16 00:00:00 Completed [facility] Influenza High Dose 2017-02-16 00:00:00 Completed [facility] Influenza High Dose 2017-02-16 00:00:00 Completed [facility] TD, NOS 2016-11-27 00:00:00 Completed [facility] TD, NOS 2016-11-27 00:00:00 Completed [facility] Td 2016-11-27 00:00:00 Completed [facility] TD, NOS 2016-11-27 00:00:00 Completed [facility] TD, NOS 2016-11-27 00:00:00 Completed [facility] TD, NOS 2016-11-27 00:00:00 Completed [facility] TD, NOS 2016-11-27 00:00:00 Completed [facility] TD, NOS 2016-11-27 00:00:00 Completed [facility] TD, NOS 2016-11-27 00:00:00 Completed [facility] TD, NOS 2016-11-27 00:00:00 Completed [facility] TD, NOS 2016-11-27 00:00:00 Completed [facility] TD, NOS 2016-11-27 00:00:00 Completed [facility] Pneumococcal conjugate P 2007-05-18 00:00:00 Completed Pneumococcal conjugate P 2007-05-18 00:00:00 Completed Pneumococcal conjugate P 2007-05-18 00:00:00 Completed Pneumococcal conjugate P 2007-05-18 00:00:00 Completed Pneumococcal conjugate P Pneumococcal conjugate P 2007-05-18 00:00:00 Completed Surendra Ross [facility] Vital Signs Vital Name Observation Time Observation Value Comments [facility] Systolic blood pressure 2024-07-04 20:00:00 120 [facility]Hg[facility] Di[facility] blood [facility] 2024-07-04 20:00:00 61 mm[Hg[facility] Heart rate 2024-07-04 20:00:00 82 /min [facility] Respiratory rate 2024-07-04 20:00:00 21 /min [facility] Oxygen saturation in Arterial blood by Pulse oximetry 2024-07-04 20:00:00 95 /min [facility] Body temperature 2024-07-04 17:26:00 35.61 Gloria [facility] Body weight 2024-07-04 12:00:00 72.485 kg [facility] BMI 2024-07-04 12:00:00 28.31 kg/m2 [facility] Body height 2024-06-24 17:21:00 160 cm [facility] Systolic blood pressure 2024-06-08 21:32:00 114 mm[Hg[facility] Diastolic blood pressure 2024-06-08 21:32:00 57 mm[Hg] [facility] Heart rate 2024-06-08 21:32:00 90 /min [facility] Body temperature 2024-06-08 21:32:00 36.39 Gloria [facility] Respiratory rate 2024-06-08 21:32:00 15 /min [facility] Oxygen saturation in Arterial blood by Pulse oximetry 2024-06-08 21:32:00 91 /min [facility] Body weight 2024-06-08 09:39:00 83 kg [facility] BMI 2024-06-08 09:39:00 32.41 kg/m2 [facility] Body height 2024-05-25 06:27:00 160 cm [facility] Systolic blood pressure 2024-03-10 17:55:00 135 mm[Hg[facility] Diastolic blood pressure 2024-03-10 17:55:00 62 mm[Hg] [facility] Heart rate 2024-03-10 17:55:00 75 /min [facility] Oxygen saturation in Arterial blood by Pulse oximetry 2024-03-10 17:55:00 92 /min [facility] Respiratory rate 2024-03-10 17:45:00 16 /min [facility] Body temperature 2024-03-10 13:17:00 36.56 Gloria [facility] Body height 2024-03-10 13:17:00 160 cm [facility] Body weight 2024-03-10 13:17:00 83.462 kg [facility] BMI 2024-03-10 13:17:00 32.59 kg/m2 [facility] Systolic blood pressure 2024-03-10 15:30:00 153 mm[Hg[facility] Diastolic blood pressure 2024-03-10 15:30:00 66 mm[Hg] [facility] Heart rate 2024-03-10 15:30:00 69 /min [facility] Respiratory rate 2024-03-10 15:30:00 15 /min [facility] Oxygen saturation in Arterial blood by Pulse oximetry 2024-03-10 15:30:00 98 /min [facility] Body temperature 2024-03-10 13:17:00 36.56 Gloria [facility] Body height 2024-03-10 13:17:00 160 cm [facility] Body weight 2024-03-10 13:17:00 83.462 kg [facility] BMI 2024-03-10 13:17:00 32.59 kg/m2 [facility] Systolic blood pressure 2024-03-04 16:33:00 127 mm[Hg[facility] Diastolic blood pressure 2024-03-04 16:33:00 59 mm[Hg] [facility] Heart rate 2024-03-04 16:33:00 62 /min [facility] Respiratory rate 2024-03-04 16:33:00 16 /min [facility] Body height 2024-03-04 16:33:00 160 cm [facility] Body weight 2024-03-04 16:33:00 83.915 kg [facility] BMI 2024-03-04 16:33:00 32.77 kg/m2 [facility] Oxygen saturation in Arterial blood by Pulse oximetry 2024-03-04 16:33:00 93 /min [facility] Systolic blood pressure 2023-12-30 22:00:00 155 mm[Hg] [facility] Diastolic blood pressure 2023-12-30 22:00:00 61 mm[Hg] [facility] Heart rate 2023-12-30 22:00:00 69 /min [facility] Body temperature 2023-12-30 22:00:00 36.83 Gloria [facility] Respiratory rate 2023-12-30 22:00:00 17 /min [facility] Oxygen saturation in Arterial blood by Pulse oximetry 2023-12-30 22:00:00 95 /min [facility] Body height 2023-12-30 16:45:00 160 cm [facility] Body weight 2023-12-30 16:45:00 83.915 kg [facility] BMI 2023-12-30 16:45:00 32.77 kg/m2 [facility] Systolic blood pressure 2023-10-26 21:34:00 127 mm[Hg[facility] Diastolic blood pressure 2023-10-26 21:34:00 63 mm[Hg] [facility] Heart rate 2023-10-26 21:34:00 89 /min [facility] Body temperature 2023-10-26 21:34:00 36.72 Gloria [facility] Respiratory rate 2023-10-26 21:34:00 19 /min [facility] Oxygen saturation in Arterial blood by Pulse oximetry 2023-10-26 21:34:00 95 /min [facility] Body weight 2023-10-26 08:11:00 88.497 kg [facility] BMI 2023-10-26 08:11:00 34.56 kg/m2 [facility] Body height 2023-10-22 07:40:00 160 cm [facility] Systolic blood pressure 2023-07-10 03:02:00 140 mm[Hg[facility] Diastolic blood pressure 2023-07-10 03:02:00 65 mm[Hg] [facility] Heart rate 2023-07-10 03:02:00 75 /min [facility] Body temperature 2023-07-10 03:02:00 36.5 Gloria [facility] Respiratory rate 2023-07-10 03:02:00 15 /min [facility] Oxygen saturation in Arterial blood by Pulse oximetry 2023-07-10 03:02:00 94 /min [facility] Body height 2023-07-10 00:36:00 160 cm [facility] Body weight 2023-07-10 00:36:00 81.647 kg [facility] BMI 2023-07-10 00:36:00 31.89 kg/m2 [facility] Systolic blood pressure 2023 23:38:38 143 mm[Hg[facility] Diastolic blood pressure 2023 23:38:38 90 mm[Hg] [facility] Heart rate 2023 23:38:38 100 /min [facility] Respiratory rate 2023 23:38:38 24 /min [facility] Oxygen saturation in Arterial blood by Pulse oximetry 2023 23:38:38 96 /min [facility] Body temperature 2023 21:21:55 36.67 Gloria [facility] Body height 2023 19:14:00 160 cm [facility] Body weight 2023 19:14:00 81.647 kg [facility] BMI 2023 19:14:00 31.89 kg/m2 [facility] Systolic blood pressure 2023-03-23 19:51:00 116 mm[Hg] [facility] Diastolic blood pressure 2023-03-23 19:51:00 71 mm[Hg] [facility] Heart rate 2023-03-23 19:51:00 92 /min [facility] Body temperature 2023-03-23 19:51:00 36.78 Gloria [facility] Body height 2023-03-23 19:51:00 165.1 cm [facility] Body weight 2023-03-23 19:51:00 82.101 kg [facility] BMI 2023-03-23 19:51:00 30.12 kg/m2 [facility] Oxygen saturation in Arterial blood by Pulse oximetry 2023-03-23 19:51:00 93 /min [facility] Systolic blood pressure 2023-02-18 16:30:00 111 mm[Hg] [facility] Diastolic blood pressure 2023-02-18 16:30:00 57 mm[Hg] [facility] Heart rate 2023-02-18 16:30:00 76 /min [facility] Body temperature 2023-02-18 16:30:00 35.94 Gloria [facility] Respiratory rate 2023-02-18 16:30:00 18 /min [facility] Oxygen saturation in Arterial blood by Pulse oximetry 2023-02-18 16:30:00 92 /min [facility] Body weight 2023-02-18 08:02:00 80.468 kg [facility] BMI 2023-02-18 08:02:00 28.65 kg/m2 [facility] Body height 2023-02-03 03:35:00 167.6 cm [facility] Systolic blood pressure 2022-11-07 16:42:00 106 mm[Hg] [facility] Diastolic blood pressure 2022-11-07 16:42:00 54 mm[Hg] [facility] Heart rate 2022-11-07 16:42:00 80 /min [facility] Body temperature 2022-11-07 16:42:00 36.44 Gloria [facility] Respiratory rate 2022-11-07 16:42:00 20 /min [facility] Oxygen saturation in Arterial blood by Pulse oximetry 2022-11-07 16:42:00 94 /min [facility] Body height 2022-10-26 07:45:00 167.6 cm [facility] [facility] Body weight 2022-10-26 07:45:00 81.647 kg [facility] BMI 2022-10-26 07:45:00 29.05 kg/m2 [facility] Systolic blood pressure 2022-10-31 12:26:00 125 [facility] Di[facility] blood pressure 2022-10-31 12:26:00 55 mm[facility]Hg[facility] Heart rate 2022-10-31 12:26:00 68 /min [facility] Body temperature 2022-10-31 12:26:00 36.56 Gloria [facility] Respiratory rate 2022-10-31 12:26:00 17 /min [facility] Oxygen saturation in Arterial blood by Pulse oximetry 2022-10-31 12:26:00 93 /min [facility] Body height 2022-10-26 07:45:00 167.6 cm [facility] Body weight 2022-10-26 07:45:00 81.647 kg [facility] BMI 2022-10-26 07:45:00 29.05 kg/m2 [facility] Systolic blood pressure 2022-10-28 18:30:00 120 mm[Hg[facility] Diastolic blood pressure 2022-10-28 18:30:00 58 mm[Hg[facility] Heart rate 2022-10-28 18:30:00 64 /min [facility] Respiratory rate 2022-10-28 18:30:00 17 /min [facility] Oxygen saturation in Arterial blood by Pulse oximetry 2022-10-28 18:30:00 94 /min [facility] Body temperature 2022-10-28 13:00:00 36.39 Gloria [facility] Body height 2022-10-26 07:45:00 167.6 cm [facility] Body weight 2022-10-26 07:45:00 81.647 kg [facility] BMI 2022-10-26 07:45:00 29.05 kg/m2 [facility] Systolic blood pressure 2022-09-06 20:21:00 130 mm[Hg[facility] Diastolic blood pressure 2022-09-06 20:21:00 74 mm[Hg] [facility] Heart rate 2022-09-06 20:21:00 88 /min [facility] Body temperature 2022-09-06 20:21:00 36.78 Gloria [facility] Respiratory rate 2022-09-06 20:21:00 18 /min [facility] Oxygen saturation in Arterial blood by Pulse oximetry 2022-09-06 20:21:00 98 /min [facility] Body height 2022-09-03 02:32:00 160 cm [facility] Body weight 2022-09-03 02:32:00 85.548 kg [facility] BMI 2022-09-03 02:32:00 33.41 kg/m2 [facility] Systolic blood pressure 2022-05-27 22:12:00 161 mm[Hg[facility] Diastolic blood pressure 2022-05-27 22:12:00 82 mm[Hg] [facility] Heart rate 2022-05-27 22:12:00 85 /min [facility] Body height 2022-05-27 22:12:00 160 cm [facility] Body weight 2022-05-27 22:12:00 86.183 kg [facility] BMI 2022-05-27 22:12:00 33.66 kg/m2 [facility] Oxygen saturation in Arterial blood by Pulse oximetry 2022-05-27 22:12:00 93 /min [facility] Systolic blood pressure 2022-01-31 21:53:00 128 mm[Hg] [facility] Diastolic blood pressure 2022-01-31 21:53:00 62 mm[Hg] [facility] Heart rate 2022-01-31 21:53:00 84 /min [facility] Body temperature 2022-01-31 21:53:00 36.39 Gloria [facility] Respiratory rate 2022-01-31 21:53:00 18 /min [facility] Body height 2022-01-31 21:53:00 167.6 cm [facility] Body weight 2022-01-31 21:53:00 84.851 kg [facility] BMI 2022-01-31 21:53:00 30.19 kg/m2 [facility] Oxygen saturation in Arterial blood by Pulse oximetry 2022-01-31 21:53:00 95 /min [facility] BP Systolic 2024-05-16 14:35:00 121 mm[Hg] Step hen F Christopher BP Diastolic 2024-05-16 14:35:00 60 mm[Hg] Ignacio phen F Christopher Weight Measured 2024-05-16 14:35:00 188.40 pounds Surendra Vandana White Height Measured 2024-05-16 14:35:00 65.00 inches Surendra [...] F Christopher Body Temperature 2023-12-10 15:50:00 Surendra White Heart Rate 2023-12-10 15:50:00 Malia en Vandana White Respiratory Rate 2023-12-10 15:50:00 Surendraaudrey White BP Systolic 2023-07-14 09:08:00 Step hen Vandana White BP Diastolic 2023-07-14 09:08:00 Ignacio phen Vandana White Weight Measured 2023-07-14 09:08:00 Surendra White Height Measured 2023-07-14 09:08:00 Surendra White Body Temperature 2023-07-14 09:08:00 Surendra White Heart Rate 2023-07-14 09:08:00 Malia en Vandana White Respiratory Rate 2023-07-14 09:08:00 Surendra White BP Systolic 2023-04-29 11:46:00 116 mm[Hg] Jason White BP Diastolic 2023-04-29 11:46:00 63 mm[Hg] Ignacio phen Vandana White Weight Measured 2023-04-29 11:46:00 Surendra White Height Measured 2023-04-29 11:46:00 65.05 inches Surendra White Body Temperature 2023-04-29 11:46:00 97.60 degrees Surendra White Heart Rate 2023-04-29 11:46:00 67.00 /min Malia en Vandana White Respiratory Rate 2023-04-29 11:46:00 Surendra White Systolic blood pressure 2023-02-06 16:48:00 181 mm[facility]Hg[facility] Di[facility] blood pressure 2023-02-06 16:48:00 125 mm[Hg[facility] Heart rate 2023-02-06 16:48:00 100 /min [facility] Respiratory rate 2023-02-06 16:48:00 14 /min [facility] Oxygen saturation in Arterial blood by Pulse oximetry 2023-02-06 16:48:00 95 /min [facility] Body temperature 2023-02-06 16:00:00 36.17 Gloria [facility] Body weight 2023-02-05 09:00:00 96.1 kg [facility] BMI 2023-02-05 09:00:00 34.21 kg/m2 [facility] Body height 2023-02-03 03:35:00 167.6 cm [facility] BP Systolic 2022-12-18 17:04:00 100 mm[Hg] Step hen F Christopher BP Diastolic 2022-12-18 17:04:00 59 mm[Hg] Ignacio phen F Christopher Weight Measured 2022-12-18 17:04:00 Surendra F Christopher Height Measured 2022-12-18 17:04:00 65.05 inches Surendra F Christopher Body Temperature 2022-12-18 17:04:00 97.80 degrees Surendra F Chrsitopher Heart Rate 2022-12-18 17:04:00 74.00 /min Malia [...] F Christopher Respiratory Rate 2022-08-05 15:20:00 Surendra F Christopher [...] F Christopher Respiratory Rate 2020-12-25 17:03:00 Surendra F Christopher BP Systolic 2020-08-15 16:24:00 121 mm[Hg] Step hen F Christopher BP Diastolic 2020-08-15 16:24:00 52 mm[Hg] Ignacio phen F Christopher Weight Measured 2020-08-15 16:24:00 195.20 pounds Surendra F Christopher Height Measured 2020-08-15 16:24:00 65.00 inches Surendra F Christopher Body Temperature 2020-08-15 16:24:00 97.50 degrees Surendra White Heart Rate 2020-08-15 16:24:00 82.00 /min Malia White Respiratory Rate 2020-08-15 16:24:00 Surendra White Procedures Procedure Date / Time Performed Performing Clinician Source POCT GLUCOSE (AUTOMATED) 2024-07-04 17:26:00 Rosa M Roman [facility] POCT GLUCOSE (AUTOMATED) 2024-07-04 13:35:00 Rosa M Roman [facility] MAGNESIUM 2024-07-04 09:59:00 Inocencio Roman [facility] BASIC METABOLIC PANEL (NA, K, CL, CO2, GLUCOSE, BUN, CREATININE, CA) 2024-07-04 09:59:00 Inocencio Roman [facility] CBC WITHOUT DIFF 2024-07-04 09:59:00 Inocencio Roman [facility] POCT GLUCOSE (AUTOMATED) 2024-07-04 02:04:00 Rosa M Roman [facility] POCT GLUCOSE (AUTOMATED) 2024-07-03 22:53:00 Rosa M Roman [facility] POCT GLUCOSE (AUTOMATED) 2024-07-03 17:46:00 Rosa M Roman [facility] POCT GLUCOSE (AUTOMATED) 2024-07-03 13:42:00 Rosa M Rmoan [facility] BASIC METABOLIC PANEL (NA, K, CL, CO2, GLUCOSE, BUN, CREATININE, CA) 2024-07-03 09:56:00 Inocencio Roman [facility] POCT GLUCOSE (AUTOMATED) 2024-07-03 02:43:00 Rosa M Roman [facility] POCT GLUCOSE (AUTOMATED) 2024-07-02 22:38:00 Rosa M Roman [facility] POCT GLUCOSE (AUTOMATED) 2024-07-02 17:53:00 Rosa M Roman [facility] POCT GLUCOSE (AUTOMATED) 2024-07-02 13:42:00 Rosa M Roman [facility] MAGNESIUM 2024-07-02 10:00:00 [place], Inocencio [facility] BASIC METABOLIC PANEL (NA, K, CL, CO2, GLUCOSE, BUN, CREATININE, CA) 2024-07-02 10:00:00 Inocencio Roman [facility] CBC WITH DIFF 2024-07-02 10:00:00 [facility] N-TERMINAL PRO-BNP 2024-07-02 10:00:00 Inocencio Roman [facility] POCT GLUCOSE (AUTOMATED) 2024-07-02 02:50:00 Rosa M Roman [facility] POCT GLUCOSE (AUTOMATED) 2024-07-01 22:45:00 Rosa M Roman [facility] POCT GLUCOSE (AUTOMATED) 2024-07-01 17:41:00 Rosa M Roman [facility] POCT GLUCOSE (AUTOMATED) 2024-07-01 13:56:00 Rosa M Roman [facility] MAGNESIUM 2024-07-01 11:42:00 Inocencio Roman [facility] BASIC METABOLIC PANEL (NA, K, CL, CO2, GLUCOSE, BUN, CREATININE, CA) 2024-07-01 11:42:00 [facility] 2024-07-01 11:42:00 [facility] 2024-07-01 11:42:00 Inocencio Roman [facility] POCT GLUCOSE (AUTOMATED) 2024-07-01 02:48:00 Rosa M Roman [facility] POCT GLUCOSE (AUTOMATED) 2024-06-30 22:18:00 Rosa M Roman [facility] POCT GLUCOSE (AUTOMATED) 2024-06-30 17:24:00 Rosa M Roman ramandeep [facility] C-REACTIVE PROTEIN 2024-06-30 16:24:00 Inocencio Rmoan [facility] PROCALCITONIN 2024-06-30 16:24:00 [facility] PO[facility]UCOSE (AUTOMATED) 2024-06-30 13:22:00 Rosa M Roman [facility] XR CHEST 1 VW 2024-06-30 11:46:00 Aric Garcia [facility] MAGNESIUM 2024-06-30 09:32:00 Aric Garcia [facility] BASIC METABOLIC PANEL (NA, K, CL, CO2, GLUCOSE, BUN, CREATININE, CA) 2024-06-30 09:32:00 Aric Garcia [facility] CBC WITH DIFF 2024-06-30 09:32:00 Aric Garcia [facility] POCT GLUCOSE (AUTOMATED) 2024-06-30 02:14:00 Rosa M Roman [facility] POCT GLUCOSE (AUTOMATED) 2024-06-29 22:38:00 Rosa M Roman [facility] POCT GLUCOSE (AUTOMATED) 2024-06-29 17:51:00 Rosa M Roman [facility] ACUTE CARE ARTERIAL BLOOD GAS 2024-06-29 15:55:00 Aric Garcia [facility] XR CHEST 1 VW 2024-06-29 15:12:14 Aric Garcia [facility] POCT GLUCOSE (AUTOMATED) 2024-06-29 13:47:00 Rosa M Roman [facility] MAGNESIUM 2024-06-29 08:12:00 Angel Luis Rangel [facility] COMP. METABOLIC PANEL (42495) 2024-06-29 08:12:00 Angel Luis Rangel [facility] CBC WITH DIFF 2024-06-29 08:12:00 [facility] ([facility]OM[facility]) 2024-06-29 01:46:00 Rosa M Roman [facility] POCT GLUCOSE (AUTOMATED) 2024-06-28 22:45:00 Rosa M Roman [facility] POCT GLUCOSE (AUTOMATED) 2024-06-28 17:48:00 Rosa M Roman [facility] POCT GLUCOSE (AUTOMATED) 2024-06-28 13:53:00 Rosa M Roman [facility] MAGNESIUM 2024-06-28 09:33:00 Aric Garcia [facility] BASIC METABOLIC PANEL (NA, K, CL, CO2, GLUCOSE, BUN, CREATININE, CA) 2024-06-28 09:33:00 Aric Garcia [facility] CBC WITH DIFF 2024-06-28 09:33:00 Aric Garcia [facility] POCT GLUCOSE (AUTOMATED) 2024-06-28 04:37:00 Rosa M Roman [facility] POCT GLUCOSE (AUTOMATED) 2024-06-28 01:39:00 Rosa M Roman [facility] POCT GLUCOSE (AUTOMATED) 2024-06-27 22:21:00 Rosa M Roman [facility] CT CHEST PULMONARY ANGIOGRAM 2024-06-27 21:42:36 Aric Garcia [facility] POCT GLUCOSE (AUTOMATED) 2024-06-27 17:08:00 Rosa M Roman [facility] POCT GLUCOSE (AUTOMATED) 2024-06-27 13:52:00 Rosa M Roman [facility] XR CHEST 1 VW 2024-06-27 12:47:55 Aric Garcia [facility] MAGNESIUM 2024-06-27 09:59:00 Aric Garcia [facility] BASIC METABOLIC PANEL (NA, K, CL, CO2, GLUCOSE, BUN, CREATININE, CA) 2024-06-27 09:59:00 Aric Garcia [facility] CBC WITH DIFF 2024-06-27 09:59:00 Aric Garcia [facility] POCT GLUCOSE (AUTOMATED) 2024-06-27 02:11:00 Rosa M Roman [facility] POCT GLUCOSE (AUTOMATED) 2024-06-26 22:19:00 Rosa M Roman [facility] POCT GLUCOSE (AUTOMATED) 2024-06-26 17:16:00 Rosa M Roman [facility] POCT GLUCOSE (AUTOMATED) 2024-06-26 13:47:00 Rosa M Roman [facility] MAGNESIUM 2024-06-26 09:40:00 Aric Garcia [facility] BASIC METABOLIC PANEL (NA, K, CL, CO2, GLUCOSE, BUN, CREATININE, CA) 2024-06-26 09:40:00 Aric Garcia [facility] CBC WITH DIFF 2024-06-26 09:40:00 Aric Garcia [facility] POCT GLUCOSE (AUTOMATED) 2024-06-26 09:35:00 Rosa M Roman [facility] POCT GLUCOSE (AUTOMATED) 2024-06-26 05:48:00 Rosa M Roman [facility] POCT GLUCOSE (AUTOMATED) 2024-06-26 03:09:00 Rosa M Roman [facility] POCT GLUCOSE (AUTOMATED) 2024-06-26 00:13:00 Rosa M Roman [facility] POCT GLUCOSE (AUTOMATED) 2024-06-25 22:25:00 Rosa M Roman [facility] URINALYSIS 2024-06-25 18:55:00 Aric Garcia [facility] POCT GLUCOSE (AUTOMATED) 2024-06-25 13:35:00 Rosa M Roman [facility] MAGNESIUM 2024-06-25 10:40:00 Inocencio Roman [facility] BASIC METABOLIC PANEL (NA, K, CL, CO2, GLUCOSE, BUN, CREATININE, CA) 2024-06-25 10:40:00 Inocencio Roman [facility] CBC WITH DIFF 2024-06-25 10:40:00 Inocencio Roman [facility] N-TERMINAL PRO-BNP 2024-06-25 10:40:00 Inocencio Roman [facility] POCT GLUCOSE (AUTOMATED) 2024-06-25 06:25:00 Rosa M Roman [facility] POCT GLUCOSE (AUTOMATED) 2024-06-25 03:27:00 Rosa M Roman [facility] POCT GLUCOSE (AUTOMATED) 2024-06-24 22:37:00 Rosa M Roman [facility] XR CHEST 1 VW 2024-06-24 18:27:52 Inocencio Roman [facility] POCT GLUCOSE (AUTOMATED) 2024-06-24 18:13:00 Rosa M Roman [facility] MAGNESIUM 2024-06-24 18:09:00 [facility] 2024-06-24 18:09:00 [facility] HEPATIC FUNCTION PANEL (11261) (ALB,T.PRO,BILI T,BU/BC,ALT,AST,ALK PHOS) 2024-06-24 18:09:00 [facility] (NA, K, CL, CO2, GLUCOSE, BUN, CREATININE, CA) 2024-06-24 18:09:00 [facility] 2024-06-24 18:09:00 [facility] PROCALCITONIN 2024-06-24 18:09:00 [facility] MRSA / MSSA SCREEN BY PCR, NARES 2024-06-24 18:09:00 [facility] ABRAM AURIS SURVEILLANCE BY PCR (INFECTION CONTROL PURPOSES) 2024-06-24 18:09:00 [facility] ARTERIAL BLOOD GAS 2024-06-24 18:05:00 [facility] LACTIC ACID WHOLE BLOOD 2024-06-24 18:05:00 [facility] 2024-06-08 22:19:00 Rosa M Roman [facility] POCT GLUCOSE (AUTOMATED) 2024-06-08 17:27:00 Rosa M Roman [facility] POCT GLUCOSE (AUTOMATED) 2024-06-08 13:19:00 Rosa M Roman [facility] POCT GLUCOSE (AUTOMATED) 2024-06-08 02:01:00 Rosa M Roman [facility] POCT GLUCOSE (AUTOMATED) 2024-06-07 22:20:00 Rosa M Roman [facility] POCT GLUCOSE (AUTOMATED) 2024-06-07 17:25:00 Rosa M Roman [facility] POCT GLUCOSE (AUTOMATED) 2024-06-07 13:32:00 Rosa M Roman [facility] POCT GLUCOSE (AUTOMATED) 2024-06-07 02:10:00 Rosa M Roman [facility] POCT GLUCOSE (AUTOMATED) 2024-06-06 22:12:00 Rosa M Roman [facility] POCT GLUCOSE (AUTOMATED) 2024-06-06 17:51:00 Rosa M Roman [facility] POCT GLUCOSE (AUTOMATED) 2024-06-06 14:01:00 Rosa M Roman [facility] BASIC METABOLIC PANEL (NA, K, CL, CO2, GLUCOSE, BUN, CREATININE, CA) 2024-06-06 09:32:00 Rc [place] CBC WITH DIFF 2024-06-06 09:32:00 Rc [facility] POCT GLUCOSE (AUTOMATED) 2024-06-06 03:50:00 Rosa M Roman [facility] POCT GLUCOSE (AUTOMATED) 2024-06-05 22:24:00 Rosa M Roman [facility] POCT GLUCOSE (AUTOMATED) 2024-06-05 17:44:00 Rosa M Roman [facility] POCT GLUCOSE (AUTOMATED) 2024-06-05 13:36:00 Rosa M Roman [facility] PHOSPHORUS 2024-06-05 09:49:00 Rc [facility] MAGNESIUM 2024-06-05 09:49:00 Rc [facility] BASIC METABOLIC PANEL (NA, K, CL, CO2, GLUCOSE, BUN, CREATININE, CA) 2024-06-05 09:49:00 Rc [place] CBC WITHOUT DIFF 2024-06-05 09:49:00 [facility] POCT GLUCOSE (AUTOMATED) 2024-06-05 02:10:00 Rosa M Roman [facility] POCT GLUCOSE (AUTOMATED) 2024-06-04 22:24:00 Rosa M Roman [facility] POCT GLUCOSE (AUTOMATED) 2024-06-04 17:27:00 Rosa M Roman [facility] POCT GLUCOSE (AUTOMATED) 2024-06-04 13:39:00 Rosa M Roman [facility] POCT GLUCOSE (AUTOMATED) 2024-06-04 11:19:00 Rosa M Roman [facility] PHOSPHORUS 2024-06-04 09:21:00 Angel Luis Rangel [facility] MAGNESIUM 2024-06-04 09:21:00 Angel Luis Rangel [facility] BASIC METABOLIC PANEL (NA, K, CL, CO2, GLUCOSE, BUN, CREATININE, CA) 2024-06-04 09:21:00 Angel Luis Rangel [facility] CBC WITHOUT DIFF 2024-06-04 09:21:00 Angel Luis Rangel [facility] POCT GLUCOSE (AUTOMATED) 2024-06-04 01:59:00 Rosa M Roman [facility] POCT GLUCOSE (AUTOMATED) 2024-06-03 22:21:00 Rosa M Roman [facility] POCT GLUCOSE (AUTOMATED) 2024-06-03 17:31:00 Rosa M Roman ramandeep [facility] POCT GLUCOSE (AUTOMATED) 2024-06-03 13:38:00 Rosa M Roman [facility] BASIC METABOLIC PANEL (NA, K, CL, CO2, GLUCOSE, BUN, CREATININE, CA) 2024-06-03 10:53:00 Aric Garcia [facility] CBC WITH DIFF 2024-06-03 10:53:00 Aric Garcia [facility] POCT GLUCOSE (AUTOMATED) 2024-06-03 02:13:00 Rosa M Roman [facility] POCT GLUCOSE (AUTOMATED) 2024-06-02 22:19:00 Rosa M Roman ramandeep [facility] POCT GLUCOSE (AUTOMATED) 2024-06-02 17:15:00 Rosa M Roman [facility] POCT GLUCOSE (AUTOMATED) 2024-06-02 13:41:00 Rosa M Roman [facility] MAGNESIUM 2024-06-02 10:00:00 Aric Garcia [facility] BASIC METABOLIC PANEL (NA, K, CL, CO2, GLUCOSE, BUN, CREATININE, CA) 2024-06-02 10:00:00 Aric Garcia [facility] CBC WITH DIFF 2024-06-02 10:00:00 Aric Garcia [facility] POCT GLUCOSE (AUTOMATED) 2024-06-02 02:29:00 Rosa M Roman [facility] POCT GLUCOSE (AUTOMATED) 2024-06-01 22:39:00 Rosa M Roman [facility] POCT GLUCOSE (AUTOMATED) 2024-06-01 17:32:00 Rosa M Roman [facility] POCT GLUCOSE (AUTOMATED) 2024-06-01 14:13:00 Rosa M Roman [facility] POCT GLUCOSE (AUTOMATED) 2024-06-01 13:41:00 Rosa M Roman [facility] MAGNESIUM 2024-06-01 09:41:00 [facility] 2024-06-01 09:41:00 [facility]IC METABOLIC PANEL (NA, K, CL, CO2, GLUCOSE, BUN, CREATININE, CA) 2024-06-01 09:41:00 [facility]FF 2024-06-01 09:41:00 Inocencio Roman [facility] POCT GLUCOSE (AUTOMATED) 2024-06-01 07:20:00 Rosa M Roman [facility] POCT GLUCOSE (AUTOMATED) 2024-06-01 01:32:00 Rosa M Roman [facility] POCT GLUCOSE (AUTOMATED) 2024-05-31 22:30:00 Rosa M Roman ramandeep [facility] POCT GLUCOSE (AUTOMATED) 2024-05-31 13:43:00 Rosa M Roman [facility] ACUTE CARE ARTERIAL BLOOD GAS 2024-05-31 12:33:00 Angel Luis Rangel [facility] XR CHEST 1 VW 2024-05-31 10:52:51 Angel Luis Rangel [facility] MAGNESIUM 2024-05-31 09:58:00 [facility] PANEL (NA, K, CL, CO2, GLUCOSE, BUN, CREATININE, CA) 2024-05-31 09:58:00 [facility]FF 2024-05-31 09:58:00 Inocencio Roman [facility] POCT GLUCOSE (AUTOMATED) 2024-05-31 02:36:00 Rosa M Roman [facility] POCT GLUCOSE (AUTOMATED) 2024-05-30 22:54:00 Rosa M Roman ramandeep [facility] POCT GLUCOSE (AUTOMATED) 2024-05-30 21:49:00 Rosa M Roman ramandeep [facility] POCT GLUCOSE (AUTOMATED) 2024-05-30 17:40:00 Rosa M Roman ramandeep [facility] POCT GLUCOSE (AUTOMATED) 2024-05-30 13:42:00 Rosa M Roman ramandeep [facility] MAGNESIUM 2024-05-30 08:29:00 Inocencio Roman [facility] COMP. METABOLIC PANEL (43568) 2024-05-30 08:29:00 [facility]FF 2024-05-30 08:29:00 [facility]MIN[facility] PRO-BNP 2024-05-30 08:29:00 [facility]SE (AUTOMATED) 2024-05-30 01:44:00 Rosa M Roman [facility] POCT GLUCOSE (AUTOMATED) 2024-05-29 22:24:00 Rosa M Roman [facility] POCT GLUCOSE (AUTOMATED) 2024-05-29 17:20:00 Rosa M Roman ramandeep [facility] POCT GLUCOSE (AUTOMATED) 2024-05-29 13:49:00 Rosa M Roman ramandeep [facility] XR CHEST 1 VW 2024-05-29 12:31:41 Florina Chang [facility] 2024-05-29 09:50:00 Inocencio Roman [facility] BASIC METABOLIC PANEL (NA, K, CL, CO2, GLUCOSE, BUN, CREATININE, CA) 2024-05-29 09:50:00 [facility] DIFF 2024-05-29 09:50:00 Inocencio Roman [facility] POCT GLUCOSE (AUTOMATED) 2024-05-29 02:26:00 Rosa M Roman [facility] POCT GLUCOSE (AUTOMATED) 2024-05-29 00:35:00 Rosa M Roman ramandeep [facility] POCT GLUCOSE (AUTOMATED) 2024-05-28 23:02:00 Rosa M Roman ramandeep [facility] POCT GLUCOSE (AUTOMATED) 2024-05-28 21:13:00 Rosa M Roman ramandeep [facility] POCT GLUCOSE (AUTOMATED) 2024-05-28 17:30:00 Rosa M Roman [facility] POCT GLUCOSE (AUTOMATED) 2024-05-28 13:34:00 Rosa M Roman [facility] BASIC METABOLIC PANEL (NA, K, CL, CO2, GLUCOSE, BUN, CREATININE, CA) 2024-05-28 10:07:00 [facility]FF 2024-05-28 10:07:00 Inocencio Roman [facility] POCT GLUCOSE (AUTOMATED) 2024-05-28 02:23:00 [facility] 2024-05-27 21:32:00 Rosa M Roman [facility] POCT GLUCOSE (AUTOMATED) 2024-05-27 17:53:00 Rosa M Roman [facility] POCT GLUCOSE (AUTOMATED) 2024-05-27 14:07:00 Rosa M Roman ramandeep [facility] MAGNESIUM 2024-05-27 09:19:00 Inocencio Roman [facility] BASIC METABOLIC PANEL (NA, K, CL, CO2, GLUCOSE, BUN, CREATININE, CA) 2024-05-27 09:19:00 [place] WITH DIFF 2024-05-27 09:19:00 [facility] N-TERMINAL PRO-BNP 2024-05-27 09:19:00 Inocencio Roman [facility] POCT GLUCOSE (AUTOMATED) 2024-05-27 02:09:00 Rosa M Roman [facility] HB ECG ROUTINE & RHYTHM STRIP 2024-05-27 00:33:36 [facility] MRSA / MSSA SCREEN BY PCRCLARIBEL 2024-05-27 00:28:00 [facility] 2024-05-26 22:39:00 Rosa M Roman [facility] POCT GLUCOSE (AUTOMATED) 2024-05-26 21:16:00 Rosa M Roman [facility] POCT GLUCOSE (AUTOMATED) 2024-05-26 17:42:00 Rosa M Roman [facility] POCT GLUCOSE (AUTOMATED) 2024-05-26 13:38:00 Rosa M Roman [facility] SPUTUM CULTURE 2024-05-26 10:21:00 Florina Chang [facility] BASIC METABOLIC PANEL (NA, K, CL, CO2, GLUCOSE, BUN, CREATININE, CA) 2024-05-26 10:13:00 [facility] WITH DIFF 2024-05-26 10:13:00 [facility]io [facility] POCT GLUCOSE (AUTOMATED) 2024-05-26 06:08:00 Rosa M Roman [facility] POCT GLUCOSE (AUTOMATED) 2024-05-26 02:51:00 Rosa M Roman [facility] URINE CULTURE 2024-05-25 22:59:00 Rc [facility] POCT GLUCOSE (AUTOMATED) 2024-05-25 22:32:00 Rosa M Roman [facility] POCT GLUCOSE (AUTOMATED) 2024-05-25 17:20:00 Rosa M Roman [facility] POCT GLUCOSE (AUTOMATED) 2024-05-25 13:31:00 Rosa M Roman [facility] BASIC METABOLIC PANEL (NA, K, CL, CO2, GLUCOSE, BUN, CREATININE, CA) 2024-05-25 10:21:00 Rc [place] CBC WITH DIFF 2024-05-25 10:21[facility]00 [facility] GLYCOS[facility]EMOGLOBIN (A1C) 2024-05-25 10:21:00 Inocencio Roman [facility] PROCALCITONIN 2024-05-25 10:21:00 [facility]B RSV COVID NAAT 2024-05-25 06:[facility] 2024-05-25 06:32[facility] [facility]ORAX WO CONTRAST 2024-05-25 03:31:31 Zachery Sexton [facility] URINALYSIS 2024-05-25 02:24:00 Jewel [facility]xton [facility] XR CHEST 1 VW 2024-05-25 01:40:36 Jewel Sexton [facility] CT HEAD WO CONTRAST 2024-05-25 01:40:13 Dominguez Sexton [facility] HB ECG ROUTINE & RHYTHM STRIP 2024-05-25 01:11:27 Jewel Sexton [facility] TROPONIN I 2024-05-25 01:07:00 Jewel Sexton [facility] COMP. METABOLIC PANEL (78535) 2024-05-25 01:07:00 Jewel Sexton [facility] CBC WITH DIFF 2024-05-25 01:07:00 Jewel Sexton [facility] N-TERMINAL PRO-BNP 2024-05-25 01:07:00 Jewel Sexton [facility] TED INTRA OP ONLY (GUIDANCE) 2024-03-10 16:35:34 Awais Bethea [facility] CATH PROCEDURE LOG 2024-03-10 14:44:24 Doctor Un assigned, [place]on [facility] CATH PROCEDURE LOG 2024-03-10 14:44:24 Doctor Un assigned, [place] [facility] ELECTROPHYSIOLOGY PROCEDURE 2024-03-10 14:20:00 Lelia peter Awais [facility] ELECTROPHYSIOLOGY PROCEDURE 2024-03-10 14:20:00 Lelia peter Jameymacecily [facility] PREPARE PACKED RBC 2024-03-10 13:46:01 [facility] HB ABO GROUPING 2024-03-10 12:53:00 Gloria eLos ea [facility] HB ABO GROUPING 2024-03-10 12:53:00 Gloria Leos ea [facility] POCT GLUCOSE (AUTOMATED) 2023-12-30 21:30:00 Nita Sexton [facility] POCT GLUCOSE (AUTOMATED) 2023-12-30 20:50:00 Nita Sexton [facility] POCT GLUCOSE (AUTOMATED) 2023-12-30 19:52:00 [facility] 2023-12-30 19:05:00 Nita Sexton [facility] AC PANEL 21 + LACTIC ACID 2023-12-30 17:41:00 [facility] COMP. METABOLIC PANEL (17050) 2023-12-30 17:40:00 D[facility]han [facility] CBC WITH DIFF 2023-12-30 17:40:[address] [facility] URINALYSIS 2023-12-30 17:40:00 Jewel [facility] CRITICAL CARE 2023-12-30 16:44:[address] [facility] POCT GLUCOSE (AUTOMATED) 2023-10-26 21:32:00 Valerie Rangel [facility] POCT GLUCOSE (AUTOMATED) 2023-10-26 16:48:00 Valerie Rangel [facility] POCT GLUCOSE (AUTOMATED) 2023-10-26 12:44:00 Valerie Rangel [facility] MAGNESIUM 2023-10-26 09:01:00 Сергей, Wylan [facility] BASIC METABOLIC PANEL (NA, K, CL, CO2, GLUCOSE, BUN, CREATININE, CA) 2023-10-26 09:01:00 Alexis Rushing [facility] CBC WITH DIFF 2023-10-26 09:01:00 СергейAlexis garcia [facility] POCT GLUCOSE (AUTOMATED) 2023-10-26 01:02:00 Valerie Rangel [facility] POCT GLUCOSE (AUTOMATED) 2023-10-25 21:26:00 Valerie Rangel [facility] POCT GLUCOSE (AUTOMATED) 2023-10-25 16:45:00 Valerie Rangel [facility] POCT GLUCOSE (AUTOMATED) 2023-10-25 12:50:00 Valerie Rangel [facility] MAGNESIUM 2023-10-25 09:33:00 Alexis Rushing [facility] BASIC METABOLIC PANEL (NA, K, CL, CO2, GLUCOSE, BUN, CREATININE, CA) 2023-10-25 09:33:00 Alexis Rushing [facility] CBC WITH DIFF 2023-10-25 09:33:00 Alexis Rushing [facility] PROCALCITONIN 2023-10-25 09:33:00 Сергей [facility] POCT GLUCOSE (AUTOMATED) 2023-10-25 04:45:00 Valerie Rangel [facility] POCT GLUCOSE (AUTOMATED) 2023-10-25 01:42:00 Valerie Rangel [facility] POCT GLUCOSE (AUTOMATED) 2023-10-24 21:20:00 Valerie Rangel [facility] POCT GLUCOSE (AUTOMATED) 2023-10-24 16:32:00 Valerie Rangel [facility] POCT GLUCOSE (AUTOMATED) 2023-10-24 12:34:00 Valerie Rangel [facility] BASIC METABOLIC PANEL (NA, K, CL, CO2, GLUCOSE, BUN, CREATININE, CA) 2023-10-24 09:14:00 Valeria Rushing [facility] CBC WITHOUT DIFF 2023-10-24 09:14:00 Valeria Rushing [facility] POCT GLUCOSE (AUTOMATED) 2023-10-24 05:28:00 Valerie Rangel [facility] POCT GLUCOSE (AUTOMATED) 2023-10-24 01:57:00 Valerie Rangel [facility] POCT GLUCOSE (AUTOMATED) 2023-10-23 21:24:00 Valerie Rangel [facility] POCT GLUCOSE (AUTOMATED) 2023-10-23 18:01:00 Valerie Rangel [facility] POCT GLUCOSE (AUTOMATED) 2023-10-23 16:39:00 Valerie Ranegl [facility] POCT GLUCOSE (AUTOMATED) 2023-10-23 12:40:00 Valerie Rangel [facility] XR CHEST 1 VW 2023-10-23 09:16:44 [facility] MET[facility]OLIC PANEL (NA, K, CL, CO2, GLUCOSE, BUN, CREATININE, CA) 2023-10-23 08:58:00 Angel Luis Rangel [facility] COMP. METABOLIC PANEL ([id number]) 2023-10-23 08:58:00 Angel Luis Rangel [facility] CBC WITH DIFF 2023-10-23 08:58:00 Angel [facility] PO[facility]SE (AUTOMATED) 2023-10-23 01:09:00 Valerie Rangel [facility] POCT GLUCOSE (AUTOMATED) 2023-10-22 21:27:00 Valerie Rangel [facility] MR BRAIN WO CONTRAST 2023-10-22 19:24:00 Ilya Rangel [facility] POCT GLUCOSE (AUTOMATED) 2023-10-22 16:41:00 Valerie Rangel [facility] TRANSTHORACIC ECHO (TTE) COMPLETE 2023-10-22 15:24:00 Angel Luis Rangel [facility] POCT GLUCOSE (AUTOMATED) 2023-10-22 12:28:00 Valerie Rangel [facility] LIPID PANEL ([id number])(TOTAL CHOLESTEROL, TRIGLYCERIDES, HDL) 2023-10-22 08:09:00 Angel Luis Rangel [facility] GLYCOSYLATED HEMOGLOBIN (A1C) 2023-10-22 08:09:00 Angel Luis Rangel [facility] POCT GLUCOSE (AUTOMATED) 2023-10-22 07:27:00 Valerie Rangel [facility] CT HEAD WO CONTRAST 2023-10-22 04:54:50 Hiren Foreman [facility] XR CHEST 1 VW 2023-10-22 03:51:46 [facility] ROUTINE & RHYTHM STRIP 2023-10-22 03:42:41 Hiren Foreman [facility] CK (CREATINE KINASE) + MB 2023-10-22 03:30:00 Mary Carmen Foreman [facility] LIPASE 2023-10-22 03:30:00 Hiren Foreman [facility] TROPONIN I 2023-10-22 03:30:00 Hiren Foreman [facility] COMP. METABOLIC PANEL ([id number]) 2023-10-22 03:30:00 Hiren Foreman [facility] CBC WITH DIFF 2023-10-22 03:30:00 Hiren [facility] URINALYSIS 2023-10-22 03:30:00 Hiren Foreman [facility] URINE CULTURE 2023-10-22 03:30:00 Hiren [facility] REFERRAL- REQUEST/RESPONSE 2023-08-31 16:07:55 D octor Unassigned, [place] [facility] REFERRAL- REQUEST/RESPONSE 2023-07-28 05:01:00 D octor Unassigned, [place] [facility] CT ABDOMEN PELVIS W CONTRAST 2023-07-10 02:15:14 Yessica Hodges [facility] URINALYSIS 2023-07-10 01:23:00 Yessica Hodges [facility] LIPASE 2023-07-10 01:07:00 [facility] COMP. METABOLIC PANEL ([id number]) 2023-07-10 01:07:00 Yessica Hodges [facility] CBC WITH DIFF 2023-07-10 01:07:00 Yessica Hodges [facility] NOTICE OF PRIVACY PRACTICES 2023-07-10 00:28:49 Doctor Unassigned, [place] [facility] CONSENT/REFUSAL FOR DIAGNOSIS AND TREATMENT 2023-07-10 00:28:23 Doctor Unassigned, [place] [facility] URINALYSIS 2023 21:21:00 Clark [facility] MAGNESIUM 2023 20:57:00 Clark [facility] TROPONIN I 2023 20:57:00 Clark [facility] COMP. METABOLIC PANEL ([id number]) 2023 20:57:00 Calrk Julian [facility] CBC WITH DIFF 2023 20:57:00 Clark Julian [facility] RAPID INFLUENZA A/B 2023 20:57:00 Clark Julian [facility] N-TERMINAL PRO-BNP 2023 20:57:00 Clark Julian [facility] COVID-19 (ID NOW RAPID TESTING) 2023 20:57:00 Clark Julian [facility] XR CHEST 1 VW 2023 20:55:59 Clark Julian [facility] CONSENT/REFUSAL FOR DIAGNOSIS AND TREATMENT 2023 18:53:10 Doctor Unassigned, [place] [facility] NO SHOW OR MISSED APPOINTMENT POLICY ACKNOWLEDGEMENT 2023-03-23 19:38:23 [facility]ATED) 2023-02-18 17:04:00 Abu Ather ah, [facility] POCT GLUCOSE (AUTOMATED) 2023-02-18 13:07:00 Abu Ather ah, [facility] POCT GLUCOSE (AUTOMATED) 2023-02-18 02:25:00 Abu Ather ah, [facility] POCT GLUCOSE (AUTOMATED) 2023-02-17 21:57:00 Abu Ather ah, [facility] POCT GLUCOSE (AUTOMATED) 2023-02-17 16:33:00 Abu Ather ah, [facility] POCT GLUCOSE (AUTOMATED) 2023-02-17 12:43:00 Abu Ather ah, [facility] POCT GLUCOSE (AUTOMATED) 2023-02-17 02:02:00 Abu Ather ah, [facility] POCT GLUCOSE (AUTOMATED) 2023-02-16 22:05:00 Abu Ather ah, [facility] POCT GLUCOSE (AUTOMATED) 2023-02-16 16:32:00 Abu Ather ah, [facility] POCT GLUCOSE (AUTOMATED) 2023-02-16 14:05:00 Abu Ather ah, [facility] POCT GLUCOSE (AUTOMATED) 2023-02-16 11:28:00 Abu Ather ah, [facility] POCT GLUCOSE (AUTOMATED) 2023-02-16 05:16:00 Abu Ather ah, [facility] POCT GLUCOSE (AUTOMATED) 2023-02-16 01:27:00 Abu Ather ah, [facility] POCT GLUCOSE (AUTOMATED) 2023-02-15 22:30:00 Abu Ather ah, [facility] POCT GLUCOSE (AUTOMATED) 2023-02-15 16:56:00 Abu Ather ah, [facility] POCT GLUCOSE (AUTOMATED) 2023-02-15 11:06:00 Abu Ather ah, [facility] BASIC METABOLIC PANEL (NA, K, CL, CO2, GLUCOSE, BUN, CREATININE, CA) 2023-02-15 09:15:00 [place], [facility] CBC WITH DIFF 2023-02-15 09:15:00 Jamal [facility] N-TERMINAL PRO-BNP 2023-02-15 09:15:00 Lorri Arevalo [facility] POCT GLUCOSE (AUTOMATED) 2023-02-15 05:15:00 Abu Ather ah, [facility] POCT GLUCOSE (AUTOMATED) 2023-02-15 01:02:00 Abu Ather ah, [facility] POCT GLUCOSE (AUTOMATED) 2023-02-14 21:51:00 Abu Ather ah, [facility] POCT GLUCOSE (AUTOMATED) 2023-02-14 16:20:00 Abu Ather ah, [facility] POCT GLUCOSE (AUTOMATED) 2023-02-14 12:00:00 Abu Ather ah, [facility] PHOSPHORUS 2023-02-14 08:44:00 Ana Paula Berry [facility] MAGNESIUM 2023-02-14 08:44:00 Ana Paula Berry [facility] BASIC METABOLIC PANEL (NA, K, CL, CO2, GLUCOSE, BUN, CREATININE, CA) 2023-02-14 08:44:00 [facility] 2023-02-14 08:44:00 Jamal [facility] POCT GLUCOSE (AUTOMATED) 2023-02-14 08:33:00 Abu Ather ah, [facility] POCT GLUCOSE (AUTOMATED) 2023-02-14 04:53:00 Abu Ather ah, [facility] POCT GLUCOSE (AUTOMATED) 2023-02-14 02:11:00 Abu Ather ah, [facility] POCT GLUCOSE (AUTOMATED) 2023-02-13 21:59:00 Abu Ather ah, [facility] POCT GLUCOSE (AUTOMATED) 2023-02-13 16:49:00 Abu Ather ah, [facility] POCT GLUCOSE (AUTOMATED) 2023-02-13 12:21:00 Abu Ather ah, [facility] PHOSPHORUS 2023-02-13 09:59:00 [facility] MAGNESIUM 2023-02-13 09:59:00 Dalia [facility] BASIC METABOLIC PANEL (NA, K, CL, CO2, GLUCOSE, BUN, CREATININE, CA) 2023-02-13 09:59:00 Dalia [facility] CBC WITH DIFF 2023-02-13 09:59:[address] [facility] POCT GLUCOSE (AUTOMATED) 2023-02-13 09:02:00 Abu Ather ah, [facility] POCT GLUCOSE (AUTOMATED) 2023-02-13 05:05:00 Abu Ather ah, [facility] POCT GLUCOSE (AUTOMATED) 2023-02-13 01:23:00 Abu Ather ah, [facility] POCT GLUCOSE (AUTOMATED) 2023-02-12 22:31:00 Abu Ather ah, [facility] BASIC METABOLIC PANEL (NA, K, CL, CO2, GLUCOSE, BUN, CREATININE, CA) 2023-02-12 21:20:00 Nicolás Batres [facility] POCT GLUCOSE (AUTOMATED) 2023-02-12 16:52:00 Abu Ather ah, [facility] POCT GLUCOSE (AUTOMATED) 2023-02-12 12:14:00 Abu Ather ah, [facility] XR CHEST 1 VW 2023-02-12 11:26:00 Ellen Biggs [facility] POCT GLUCOSE (AUTOMATED) 2023-02-12 09:04:00 Abu Ather ah, [facility] PHOSPHORUS 2023-02-12 07:33:00 [facility] MAGNESIUM 2023-02-12 07:33:00 Dalia [facility] HEPATIC FUNCTION PANEL ([id number]) (ALB,T.PRO,BILI T,BU/BC,ALT,AST,ALK PHOS) 2023-02-12 07:33:00 Dianna Bailey [facility] BASIC METABOLIC PANEL (NA, K, CL, CO2, GLUCOSE, BUN, CREATININE, CA) 2023-02-12 07:33:00 Dalia [facility] CBC WITH DIFF 2023-02-12 07:33:[address] [facility] POCT GLUCOSE (AUTOMATED) 2023-02-12 05:02:00 Abu Ather ah, [facility] POCT GLUCOSE (AUTOMATED) 2023-02-12 02:01:00 Abu Ather ah, [facility] POCT GLUCOSE (AUTOMATED) 2023-02-11 22:05:00 Abu Ather ah, [facility] POCT GLUCOSE (AUTOMATED) 2023-02-11 17:14:00 Abu Ather ah, [facility] POCT GLUCOSE (AUTOMATED) 2023-02-11 12:55:00 Abu Ather ah, [facility] PHOSPHORUS 2023-02-11 09:15:00 Dalia [facility] MAGNESIUM 2023-02-11 09:15:00 [facility] HEPATIC FUNCTION PANEL ([id number]) (ALB,T.PRO,BILI T,BU/BC,ALT,AST,ALK PHOS) 2023-02-11 09:15:00 Dianna Bailey [facility] BASIC METABOLIC PANEL (NA, K, CL, CO2, GLUCOSE, BUN, CREATININE, CA) 2023-02-11 09:15:00 Dalia [facility] CBC WITH DIFF 2023-02-11 09:15[facility]00 [facility] 2023-02-11 09:15:00 Nicolás Chopra [facility] POCT GLUCOSE (AUTOMATED) 2023-02-11 08:55:00 Abu Ather ah, [facility] POCT GLUCOSE (AUTOMATED) 2023-02-11 04:43:00 Abu Ather ah, [facility] POCT GLUCOSE (AUTOMATED) 2023-02-11 02:04:00 Abu Ather ah, [facility] POCT GLUCOSE (AUTOMATED) 2023-02-10 21:17:00 Abu Ather ah, [facility] US ABDOMEN LIMITED WITH DOPPLER 2023-02-10 19:26:12 [facility] HEPATITIS B SURFACE ANTIBODY 2023-02-10 18:58:00 [facility] HEPATITIS B SURFACE ANTIGEN 2023-02-10 18:58:00 [facility] HCV ANTIBODY 2023-02-10 18:58:00 [facility] VIRUS ANTIBODY IGM 2023-02-10 18:58:00 [facility] HEPATITIS B CORE ANTIBODY IGM 2023-02-10 18:58:00 [facility] HAV ANTIBODY (IGG AND IGM) 2023-02-10 18:58:00 [facility] POCT GLUCOSE (AUTOMATED) 2023-02-10 17:15:00 Abu Ather , [facility] XR CHEST 1 VW 2023-02-10 13:25:00 Ellen Biggs [facility] POCT GLUCOSE (AUTOMATED) 2023-02-10 13:13:00 Abu Ather , [facility] HEPATIC FUNCTION PANEL ([id number]) (ALB,T.PRO,BILI T,BU/BC,ALT,AST,ALK PHOS) 2023-02-10 10:22:00 [facility] BASIC METABOLIC PANEL (NA, K, CL, CO2, GLUCOSE, BUN, CREATININE, CA) 2023-02-10 10:22:00 Gurwinder Raymond [facility] CBC WITH DIFF 2023-02-10 10:22:00 [facility] 2023-02-10 08:47:00 Abu Ather ah, [facility] POCT GLUCOSE (AUTOMATED) 2023-02-10 04:46:00 Abu Ather ah, [facility] POCT GLUCOSE (AUTOMATED) 2023-02-10 01:12:00 Abu Ather ah, [facility] POCT GLUCOSE (AUTOMATED) 2023-02-09 20:57:00 Abu Ather ah, [facility] POCT GLUCOSE (AUTOMATED) 2023-02-09 16:45:00 Abu Ather ah, [facility] DUPLEX VENOUS LEGS BILATERAL - BY VASCULAR LAB 2023-02-09 15:15:59 [facility]ATED) 2023-02-09 13:02:00 Abu Ather ah, [facility] BASIC METABOLIC PANEL (NA, K, CL, CO2, GLUCOSE, BUN, CREATININE, CA) 2023-02-09 10:22:00 [facility]FF 2023-02-09 10:22:00 Gurwinder Raymond [facility] POCT GLUCOSE (AUTOMATED) 2023-02-09 09:45:00 Abu Ather ah, [facility] POCT GLUCOSE (AUTOMATED) 2023-02-09 04:33:00 Abu Ather ah, [facility] POCT GLUCOSE (AUTOMATED) 2023-02-09 01:17:00 Abu Ather ah, [facility] POCT GLUCOSE (AUTOMATED) 2023-02-08 21:21:00 Abu Ather ah, [facility] HB ECG ROUTINE & RHYTHM STRIP 2023-02-08 17:05:19 [facility] ([facility]OMATED) 2023-02-08 16:33:00 Abu Ather ah, [facility] POCT GLUCOSE (AUTOMATED) 2023-02-08 12:35:00 Abu Ather ah, [facility] BASIC METABOLIC PANEL (NA, K, CL, CO2, GLUCOSE, BUN, CREATININE, CA) 2023-02-08 10:43:00 Nicolás Molina [facility] CBC WITH DIFF 2023-02-08 10:43:00 Nicolás Molina [facility] POCT GLUCOSE (AUTOMATED) 2023-02-08 10:43:00 Abu Ather ah, [facility] POCT GLUCOSE (AUTOMATED) 2023-02-08 05:43:00 Abu Ather ah, [facility] POCT GLUCOSE (AUTOMATED) 2023-02-08 01:02:00 Abu Ather ah, [facility] POCT GLUCOSE (AUTOMATED) 2023-02-07 21:03:00 Abu Ather ah, [facility] TRANSTHORACIC ECHO (TTE) COMPLETE 2023-02-07 17:26:16 Jose Ramon Sumner [facility] MAGNESIUM 2023-02-07 17:06:00 Adama Fajardo [facility] TROPONIN I 2023-02-07 17:06:00 Tana [facility] BASIC METABOLIC PANEL (NA, K, CL, CO2, GLUCOSE, BUN, CREATININE, CA) 2023-02-07 17:06:[address] [facility] CBC WITH DIFF 2023-02-07 17:06:00 Adama Fajardo [facility] POCT GLUCOSE (AUTOMATED) 2023-02-07 16:43:00 Abu Ather ah, [facility] POCT GLUCOSE (AUTOMATED) 2023-02-07 12:28:00 Abu Ather ah, [facility] TROPONIN I 2023-02-07 10:55:00 Gurwinder Raymond [facility] POCT GLUCOSE (AUTOMATED) 2023-02-07 09:38:00 Abu Ather ah, [facility] HB ECG ROUTINE & RHYTHM STRIP 2023-02-07 05:06:24 Gurwinder Raymond [facility] HB ECG ROUTINE & RHYTHM STRIP 2023-02-07 05:05:14 Allyssa Biggs [facility] COVID-19 (ID NOW RAPID TESTING) 2023-02-07 04:59:00 Abu Ather [facility] LAB ONLY COVID INTERPRETATION 2023-02-07 04:59:00 Abu Atherah, [facility] PHOSPHORUS 2023-02-07 04:57:00 [facility] 2023-02-07 04:57:00 Terminella, [facility] TROPONIN I 2023-02-07 04:57:00 [facility] BASIC METABOLIC PANEL (NA, K, CL, CO2, GLUCOSE, BUN, CREATININE, CA) 2023-02-07 04:57:00 [facility] CBC WITHOUT DIFF 2023-02-07 04:57:00 [facility] POCT GLUCOSE (AUTOMATED) 2023-02-07 04:55:00 Abu Ather ah, [facility] POCT GLUCOSE (AUTOMATED) 2023-02-07 00:52:00 Abu Ather ah, [facility] TROPONIN I 2023-02-06 23:04:00 [facility] POCT GLUCOSE (AUTOMATED) 2023-02-06 21:23:00 Abu Ather ah, [facility] POCT GLUCOSE (AUTOMATED) 2023-02-06 17:37:00 Abu Ather ah, [facility] TROPONIN I 2023-02-06 17:06:00 [facility] 2023-02-06 16:01:00 Ellen Biggs [facility] XR CHEST 1 VW 2023-02-06 16:01:00 Ellen Biggs [facility] HB ECG ROUTINE & RHYTHM STRIP 2023-02-06 15:35:53 Sunil [facility] N-TERMINAL PRO-BNP 2023-02-06 14:02:00 Antony Ricketts [facility] N-TERMINAL PRO-BNP 2023-02-06 14:02:00 Antony Ricketts [facility] ACUTE CARE ARTERIAL BLOOD GAS 2023-02-06 13:38:00 [facility] ACUTE CARE ARTERIAL BLOOD GAS 2023-02-06 13:38:00 [facility] POCT GLUCOSE (AUTOMATED) 2023-02-06 13:09:00 Abu Ather ah, [facility] POCT GLUCOSE (AUTOMATED) 2023-02-06 13:09:00 Abu Ather ah, Ryan [facility] TROPONIN I 2023-02-06 11:50:00 Biggs, [facility] TROPONIN I 2023-02-06 11:50:00 [facility] 2023-02-06 07:01:00 Biggs, [facility] XR CHEST 1 VW 2023-02-06 07:01:00 Biggs, [facility] URINALYSIS MICROSCOPIC 2023-02-06 06:44:00 Jina Perez [facility] URINALYSIS MICROSCOPIC 2023-02-06 06:44:00 Jina Perez [facility] CBC WITH DIFF 2023-02-06 06:34:00 [facility]23-02-06 06:34[facility]ASMA 2023-02-06 06:34:00 Chris [facility] COMP. METABOLIC PANEL (01648) 2023-02-06 06:34:00 Chris [facility] BILI UNCONJUGATED/BILI CONJUG 2023-02-06 06:34:00 Leo [facility] MAGNESIUM 2023-02-06 06:34:00 [facility]MONIA, PLASMA 2023-02-06 06:34:00 Chris [facility] BILI UNCONJUGATED/BILI CONJUG 2023-02-06 06:34:00 Leo [facility] COMP. METABOLIC PANEL ([id number]) 2023-02-06 06:34:00 Ana Paula Perez [facility] CBC WITH DIFF 2023-02-06 06:34:00 [facility] AC [facility]EL 20 + LACTIC ACID 2023-02-06 06:26:00 Severino Perez [facility] AC PANEL 20 + LACTIC ACID 2023-02-06 06:26:00 Severino Perez [facility] POCT GLUCOSE (AUTOMATED) 2023-02-06 05:34:00 Abu Ather ah, [facility] POCT GLUCOSE (AUTOMATED) 2023-02-06 05:34:00 Abu Ather ah, [facility] POCT GLUCOSE (AUTOMATED) 2023-02-06 02:01:00 Abu Ather ah, [facility] POCT GLUCOSE (AUTOMATED) 2023-02-06 02:01:00 Abu Ather ah, [facility] POCT GLUCOSE (AUTOMATED) 2023-02-05 22:50:00 Abu Ather ah, [facility] POCT GLUCOSE (AUTOMATED) 2023-02-05 22:50:00 Abu Ather ah, [facility] POCT GLUCOSE (AUTOMATED) 2023-02-05 16:50:00 Abu Ather ah, [facility] POCT GLUCOSE (AUTOMATED) 2023-02-05 16:50:00 Abu Ather ah, [facility] PROTHROMBIN TIME / INR 2023-02-05 13:53:00 Mary Bailey [facility] PROTHROMBIN TIME / INR 2023-02-05 13:53:00 Mary Bailey [facility] POCT GLUCOSE (AUTOMATED) 2023-02-05 13:32:00 Abu Ather ah, [facility] POCT GLUCOSE (AUTOMATED) 2023-02-05 13:32:00 Abu Ather ah, [facility] CBC WITH DIFF 2023-02-05 10:12:00 Ellen Biggs [facility] BASIC METABOLIC PANEL (NA, K, CL, CO2, GLUCOSE, BUN, CREATININE, CA) 2023-02-05 10:12:00 Sunil [facility] MAGNESIUM 2023-02-05 10:12:00 Ellen Biggs [facility] MAGNESIUM 2023-02-05 10:12:00 Sunil [facility] BASIC METABOLIC PANEL (NA, K, CL, CO2, GLUCOSE, BUN, CREATININE, CA) 2023-02-05 10:12:00 Sunil [facility] CBC WITH DIFF 2023-02-05 10:12:00 Ellen Biggs [facility] POCT GLUCOSE (AUTOMATED) 2023-02-05 09:32:00 Abu Ather ah, [facility] POCT GLUCOSE (AUTOMATED) 2023-02-05 09:32:00 Abu Ather ah, [facility] POCT GLUCOSE (AUTOMATED) 2023-02-05 04:18:00 Abu Ather ah, [facility] POCT GLUCOSE (AUTOMATED) 2023-02-05 04:18:00 Abu Ather ah, [facility] POCT GLUCOSE (AUTOMATED) 2023-02-05 02:02:00 Abu Ather ah, [facility] POCT GLUCOSE (AUTOMATED) 2023-02-05 02:02:00 Abu Ather ah, [facility] POCT GLUCOSE (AUTOMATED) 2023-02-04 21:31:00 Abu Ather ah, [facility] POCT GLUCOSE (AUTOMATED) 2023-02-04 21:31:00 Abu Ather ah, [facility] CBC WITH DIFF 2023-02-04 21:02:00 Abu Atherah, [facility] CBC WITH DIFF 2023-02-04 21:02:00 Abu Atherah, [facility] IR PARACENTESIS/PERITONECENTES IS WITH IMAGING 2023-02-04 19:54:12 Ellen Biggs [facility] POCT GLUCOSE (AUTOMATED) 2023-02-04 16:40:00 Abu Ather ah, [facility] POCT GLUCOSE (AUTOMATED) 2023-02-04 16:40:00 Abu Ather ah, [facility] XR CHEST 1 VW 2023-02-04 13:34:00 Abu Atherah, [facility] XR CHEST 1 VW 2023-02-04 13:34:00 Abu Atherah, [facility] POCT GLUCOSE (AUTOMATED) 2023-02-04 13:01:00 Abu Ather ah, [facility] POCT GLUCOSE (AUTOMATED) 2023-02-04 13:01:00 Abu Ather ah, [facility] AMMONIA, PLASMA 2023-02-04 12:45:00 Abu Atherah, [facility] AMMONIA, PLASMA 2023-02-04 12:45:00 Abu Atherah, [facility] AC ABG + LACTIC ACID 2023-02-04 12:37:00 Albkareem Om [facility] AC ABG + LACTIC ACID 2023-02-04 12:37:00 Jesse ar [facility] PROTHROMBIN TIME / INR 2023-02-04 11:39:00 Mary Bailey [facility] PROTHROMBIN TIME / INR 2023-02-04 11:39:00 Mary Bailey [facility] CBC WITH DIFF 2023-02-04 09:49:00 Sunil [facility] BASIC METABOLIC PANEL (NA, K, CL, CO2, GLUCOSE, BUN, CREATININE, CA) 2023-02-04 09:49:00 Sunil [facility] MAGNESIUM 2023-02-04 09:49:00 Sunil [facility] PHOSPHORUS 2023-02-04 09:49:00 Jesse [facility] PHOSPHORUS 2023-02-04 09:49:00 [facility] MAGNESIUM 2023-02-04 09:49:00 Sunil [facility] BASIC METABOLIC PANEL (NA, K, CL, CO2, GLUCOSE, BUN, CREATININE, CA) 2023-02-04 09:49:00 Sunil [facility] CBC WITH DIFF 2023-02-04 09:49:00 Sunil [facility] POCT GLUCOSE (AUTOMATED) 2023-02-04 09:19:00 Abu Ather ah, [facility] POCT GLUCOSE (AUTOMATED) 2023-02-04 09:19:00 Abu Ather ah, [facility] POCT GLUCOSE (AUTOMATED) 2023-02-04 03:56:00 Abu Ather ah, [facility] POCT GLUCOSE (AUTOMATED) 2023-02-04 03:56:00 Abu Ather ah, [facility] POCT GLUCOSE (AUTOMATED) 2023-02-04 02:15:00 Abu Ather ah, [facility] POCT GLUCOSE (AUTOMATED) 2023-02-04 02:15:00 Abu Ather ah, [facility] ABG+COOX+NA+K+GLU+CA2+ 2023-02-04 01:10:00 Abu Atherah , [facility] ABG+COOX+NA+K+GLU+CA2+ 2023-02-04 01:10:00 Abu Atherah , [facility] POCT GLUCOSE (AUTOMATED) 2023-02-04 00:51:00 Abu Ather ah, [facility] POCT GLUCOSE (AUTOMATED) 2023-02-04 00:51:00 Abu Ather ah, [facility] BLOOD CULTURE SCREEN 2023-02-03 22:14:00 Leo [facility] BLOOD CULTURE SCREEN 2023-02-03 22:14:00 Leo [facility] ABG+COOX+NA+K+GLU+CA2+ 2023-02-03 22:10:00 Abu Ather , [facility] ABG+COOX+NA+K+GLU+CA2+ 2023-02-03 22:10:00 Abu Ather , [facility] XR CHEST 1 VW 2023-02-03 21:56:00 Abu [facility], [facility] XR CHEST 1 VW 2023-02-03 21:56:00 [facility] BLOOD CULTURE SCREEN 2023-02-03 21:55:00 Leo [facility] BLOOD CULTURE SCREEN 2023-02-03 21:55:00 Leo [facility] FIBRINOGEN 2023-02-03 21:48:00 Dianna Bailey [facility] BASIC METABOLIC PANEL (NA, K, CL, CO2, GLUCOSE, BUN, CREATININE, CA) 2023-02-03 21:48:00 Abu Atherah, [facility] CBC WITH DIFF 2023-02-03 21:48:00 Abu [facility], [facility] BASIC METABOLIC PANEL (NA, K, CL, CO2, GLUCOSE, BUN, CREATININE, CA) 2023-02-03 21:48:00 Abu Atherah, [facility] CBC WITH DIFF 2023-02-03 21:48:00 Abu Ather, [facility] FIBRINOGEN 2023-02-03 21:48:00 Dianna Bailey [facility] POCT GLUCOSE (AUTOMATED) 2023-02-03 21:22:00 Abu Ather ah, [facility] POCT GLUCOSE (AUTOMATED) 2023-02-03 21:22:00 Abu Ather ah, [facility] ABG+COOX+NA+K+GLU+CA2+ 2023-02-03 20:38:00 Abu Atherah , [facility] ABG+COOX+NA+K+GLU+CA2+ 2023-02-03 20:38:00 Abu Ather , [facility] POCT GLUCOSE (AUTOMATED) 2023-02-03 17:22:00 Abu Ather ah, [facility] POCT GLUCOSE (AUTOMATED) 2023-02-03 17:22:00 Abu Ather ah, [facility] CBC WITH DIFF 2023-02-03 15:17:00 Abu Ather [facility] CBC WITH DIFF 2023-02-03 15:17:00 Abu Ather, [facility] PROTHROMBIN TIME / INR 2023-02-03 13:37:00 Mary Bailey [facility] PROTHROMBIN TIME / INR 2023-02-03 13:37:00 Mary Bailey [facility] POCT GLUCOSE (AUTOMATED) 2023-02-03 13:29:00 Abu Ather ah, [facility] POCT GLUCOSE (AUTOMATED) 2023-02-03 13:29:00 Abu Ather ah, [facility] BASIC METABOLIC PANEL (NA, K, CL, CO2, GLUCOSE, BUN, CREATININE, CA) 2023-02-03 09:34:00 Jesse [facility] MAGNESIUM 2023-02-03 09:34:00 [facility] PHOSPHORUS 2023-02-03 09:34:00 [facility] CBC WITHOUT DIFF 2023-02-03 09:34:00 [facility] 2023-02-03 09:34:00 Jesse [facility] TOTAL IRON BINDING CAPACITY 2023-02-03 09:34:00 Zhanna yuan [facility] FERRITIN SERUM 2023-02-03 09:34:00 Jesse Nicolás [facility] VITAMIN B12, LEVEL 2023-02-03 09:34:00 Jesse [facility] FOLATE 2023-02-03 09:34:00 Jesse [facility] GLYCOSYLATED HEMOGLOBIN (A1C) 2023-02-03 09:34:00 Jesse [facility] PHOSPHORUS 2023-02-03 09:34:00 [facility] MAGNESIUM 2023-02-03 09:34:00 Jesse [facility] FERRITIN SERUM 2023-02-03 09:34:00 Nicolás Molina [facility] IRON 2023-02-03 09:34:00 Jesse [facility] VITAMIN B12, LEVEL 2023-02-03 09:34:00 Jesse [facility] FOLATE 2023-02-03 09:34:00 Jesse [facility] TOTAL IRON BINDING CAPACITY 2023-02-03 09:34:00 Zhanna yuan [facility] BASIC METABOLIC PANEL (NA, K, CL, CO2, GLUCOSE, BUN, CREATININE, CA) 2023-02-03 09:34:00 Jesse [facility] CBC WITHOUT DIFF 2023-02-03 09:34:00 JesseSusanar U [facility] GLYCOSYLATED HEMOGLOBIN (A1C) 2023-02-03 09:34:00 Nicolás Molina [facility] POCT GLUCOSE (AUTOMATED) 2023-02-03 09:13:00 Abu Ather ah, [facility] POCT GLUCOSE (AUTOMATED) 2023-02-03 09:13:00 Abu Ather ah, [facility] TRANSFUSE PACKED RBC 2023-02-03 05:42:00 Jesse [facility] TRANSFUSE PACKED RBC 2023-02-03 05:42:00 Susan Molina [facility] PREPARE PACKED RBC 2023-02-03 05:32:46 Jesse [facility] PREPARE PACKED RBC 2023-02-03 05:32:46 Jesse [facility] POCT GLUCOSE (AUTOMATED) 2023-02-03 04:27:00 Abu Ather ah, [facility] POCT GLUCOSE (AUTOMATED) 2023-02-03 04:27:00 Abu Ather ah, [facility] HB ABO GROUPING 2023-02-03 04:21:00 ZhannaNicolás yuan Un [facility] HB ABO GROUPING 2023-02-03 04:21:00 ZhannaNicolás yuan [facility] URINE DRUG (IMMUNOASSAY) - COMPREHENSIVE DRUG SCREEN 2023-02-03 02:12:00 Brandon Shelton [facility] URINE DRUG (IMMUNOASSAY) - COMPREHENSIVE DRUG SCREEN 2023-02-03 02:12:00 Brandon Shelton [facility] LACTIC ACID WHOLE BLOOD 2023-02-03 02:01:00 Thomas Shelton [facility] LACTIC ACID WHOLE BLOOD 2023-02-03 02:01:00 Thomas Shelton [facility] TRANSFUSE PACKED RBC 2023-02-03 01:24:00 Brandon Shelton [facility] TRANSFUSE PACKED RBC 2023-02-03 01:24:00 Brandon Shelton [facility] PREPARE PACKED RBC 2023-02-03 01:04:45 Brandon Shelton [facility] PREPARE PACKED RBC 2023-02-03 01:04:45 Brandon Shelton [facility] TRANSFUSE PACKED RBC 2023-02-02 22:15:00 Brandon Shelton [facility] TRANSFUSE PACKED RBC 2023-02-02 22:15:00 Brandon Shelton [facility] URINE CULTURE 2023-02-02 22:07:00 Brandon [facility] URINE CULTURE 2023-02-02 22:07:00 Brandon [facility]ton [facility] XR CHEST 1 VW 2023-02-02 21:43:00 Brandon Shelton [facility] XR CHEST 1 VW 2023-02-02 21:43:00 Brandon Shelton [facility] CT HEAD WO CONTRAST 2023-02-02 21:42:00 Brandon Shelton [facility] CT MAXILLOFACIAL/MANDIBLE WO CONTRAST 2023-02-02 21:42:00 Brandon Shelton [facility] CT ABDOMEN PELVIS WO CONTRAST 2023-02-02 21:42:00 Brandon Shelton [facility] CT ABDOMEN PELVIS WO CONTRAST 2023-02-02 21:42:00 Brandon Shelton [facility] CT MAXILLOFACIAL/MANDIBLE WO CONTRAST 2023-02-02 21:42:00 Brandon Shelton [facility] CT HEAD WO CONTRAST 2023-02-02 21:42:00 Brandon Shelton [facility] THYROID STIMULATING HORMONE 2023-02-02 21:33:00 Brandon Shelton [facility] HB ABO GROUPING 2023-02-02 21:33:00 Brandon Shelton Uni [facility] THYROID STIMULATING HORMONE 2023-02-02 21:33:00 Brandon Shelton [facility] HB ABO GROUPING 2023-02-02 21:33:00 Brandon Shelton Uni [facility] URINALYSIS 2023-02-02 20:47:00 Brandon Shelton [facility] URINALYSIS 2023-02-02 20:47:00 Brandon Shelton [facility] AC ABG + LACTIC ACID 2023-02-02 20:32:00 Brandon Shelton [facility] AC ABG + LACTIC ACID 2023-02-02 20:32:00 Barndon Shelton [facility] ASSIGNMENT OF BENEFITS 2023-02-02 20:07:35 Docto r Unassigned, [place] [facility] ASSIGNMENT OF BENEFITS 2023-02-02 20:07:35 Docto r Unassigned, [place] [facility] CBC WITH DIFF 2023-02-02 20:04:00 Brandon [facility] PROTHROMBIN TIME / INR 2023-02-02 20:04:00 Mary Shelton [facility] COMP. METABOLIC PANEL ([id number]) 2023-02-02 20:04:00 Brandon Shelton [facility] TROPONIN I 2023-02-02 20:04:00 Brandon Shelton [facility] N-TERMINAL PRO-BNP 2023-02-02 20:04:00 Brandon Shelton [facility] TROPONIN I 2023-02-02 20:04:00 Brandon Shelton [facility] COMP. METABOLIC PANEL ([id number]) 2023-02-02 20:04:00 Brandon Shelton [facility] CBC WITH DIFF 2023-02-02 20:04:00 Brandon Shelton [facility] PROTHROMBIN TIME / INR 2023-02-02 20:04:00 Mary Shelton [facility] N-TERMINAL PRO-BNP 2023-02-02 20:04:00 Brandon Shelton [facility] CONSENT/REFUSAL FOR DIAGNOSIS AND TREATMENT 2023-02-02 19:51:26 Doctor Unassigned, [place] [facility] CONSENT/REFUSAL FOR DIAGNOSIS AND TREATMENT 2023-02-02 19:51:26 Doctor Unassigned, [place] [facility] HB ECG ROUTINE & RHYTHM STRIP 2023-02-02 19:43:20 Brandon Shelton [facility] HB ECG ROUTINE & RHYTHM STRIP 2023-02-02 19:43:20 Brandon Shelton [facility] CRITICAL CARE 2023-02-02 19:37:00 Brandon [facility] 2023-02-02 19:37:00 Brandon [facility]ton [facility] EXTERNAL PROVIDER RECORDS 2023-02-02 05:01:00 Do ctor Unassigned, [place] [facility] EXTERNAL PROVIDER RECORDS 2023-02-02 05:01:00 Do ctor Unassigned, [place] [facility] EMERGENCY DEPARTMENT DOCUMENTS 2023-02-02 05:01:00 Doctor Unassigned, [place] [facility] DISCLOSURE AND CONSENT, MEDICAL AND SURGICAL PROCEDURES 2023-02-02 05:01:00 Doctor Unassigned, [place] [facility] EXTERNAL PROVIDER - ADC REFERRAL 2023-01-12 05:01:00 Doctor Unassigned, [place] [facility] POCT GLUCOSE (AUTOMATED) 2022-11-07 16:43:00 Santos Lewis [facility] POCT GLUCOSE (AUTOMATED) 2022-11-07 16:43:00 Santos Lewis [facility] POCT GLUCOSE (AUTOMATED) 2022-11-07 13:31:00 Santos Lewis [facility] POCT GLUCOSE (AUTOMATED) 2022-11-07 13:31:00 Santos Lewis [facility] CBC WITH DIFF 2022-11-07 09:26:00 Chandan Avel [facility] CBC WITH DIFF 2022-11-07 09:26:00 Chandan [facility] POCT GLUCOSE (AUTOMATED) 2022-11-07 01:40:00 Santos Lewis [facility] POCT GLUCOSE (AUTOMATED) 2022-11-07 01:40:00 Phalak, S [facility] POCT GLUCOSE (AUTOMATED) 2022-11-06 23:00:00 Santos Lewis [facility] POCT GLUCOSE (AUTOMATED) 2022-11-06 23:00:00 Santos Lewis [facility] POCT GLUCOSE (AUTOMATED) 2022-11-06 17:53:00 Santos Lewis [facility] POCT GLUCOSE (AUTOMATED) 2022-11-06 17:53:00 Santos Lewis [facility] POCT GLUCOSE (AUTOMATED) 2022-11-06 13:25:00 PhalSantos rico [facility] POCT GLUCOSE (AUTOMATED) 2022-11-06 13:25:00 Santos Lewis [facility] POCT GLUCOSE (AUTOMATED) 2022-11-06 01:35:00 Santos Lewis [facility] POCT GLUCOSE (AUTOMATED) 2022-11-05 22:40:00 Santos Lewis [facility] POCT GLUCOSE (AUTOMATED) 2022-11-05 17:37:00 Selena [facility] POCT GLUCOSE (AUTOMATED) 2022-11-05 12:20:00 Selena [facility] POCT GLUCOSE (AUTOMATED) 2022-11-05 02:01:00 Santos Lewis [facility] POCT GLUCOSE (AUTOMATED) 2022-11-04 21:10:00 Selena [facility] COVID-19 (ID NOW RAPID TESTING) 2022-11-04 19:04:00 Chandan [facility] LAB ONLY COVID INTERPRETATION 2022-11-04 19:04:00 Chandan [facility] POCT GLUCOSE (AUTOMATED) 2022-11-04 16:24:00 Selena [facility] POCT GLUCOSE (AUTOMATED) 2022-11-04 12:43:00 Selena [facility] BASIC METABOLIC PANEL (NA, K, CL, CO2, GLUCOSE, BUN, CREATININE, CA) 2022-11-04 09:14:00 Teqwimuah, [facility] CBC WITH DIFF 2022-11-04 09:14:00 Chandan Avel [facility] POCT GLUCOSE (AUTOMATED) 2022-11-04 01:25:00 Santos Lewis amseverino [facility] POCT GLUCOSE (AUTOMATED) 2022-11-03 22:19:00 PhalSantos rico [facility] POCT GLUCOSE (AUTOMATED) 2022-11-03 16:38:00 Phalak S [facility] POCT GLUCOSE (AUTOMATED) 2022-11-03 12:46:00 Phalak, S [facility] POCT GLUCOSE (AUTOMATED) 2022-11-03 01:42:00 Phalak, S [facility] POCT GLUCOSE (AUTOMATED) 2022-11-02 21:08:00 Phalak, S [facility] POCT GLUCOSE (AUTOMATED) 2022-11-02 16:07:00 Phalak S [facility] POCT GLUCOSE (AUTOMATED) 2022-11-02 12:35:00 Phalak, S [facility] POCT GLUCOSE (AUTOMATED) 2022-11-02 01:43:00 Phalak, S [facility] POCT GLUCOSE (AUTOMATED) 2022-11-01 20:56:00 Phalak, S [facility] POCT GLUCOSE (AUTOMATED) 2022-11-01 16:43:00 Phalak S [facility] POCT GLUCOSE (AUTOMATED) 2022-11-01 12:39:00 Phalak, S [facility] POCT GLUCOSE (AUTOMATED) 2022-11-01 01:49:00 Phalak, S [facility] POCT GLUCOSE (AUTOMATED) 2022-11-01 01:49:00 Phalak, S [facility] BASIC METABOLIC PANEL (NA, K, CL, CO2, GLUCOSE, BUN, CREATININE, CA) 2022-10-31 22:27:00 Eze Santiago [facility] BASIC METABOLIC PANEL (NA, K, CL, CO2, GLUCOSE, BUN, CREATININE, CA) 2022-10-31 22:27:00 Eze Santiago [facility] CARDIAC CATHETERIZATION 2022-10-31 16:44:12 Ebony Bautista [facility] CARDIAC CATHETERIZATION 2022-10-31 16:44:12 Ebony Bautista [facility] POCT ACT LOW RANGE 2022-10-31 16:28:00 Phalak, [facility] POCT ACT LOW RANGE 2022-10-31 16:28:00 Phalak, [facility] POCT ACT LOW RANGE 2022-10-31 16:01:00 Phalak, [facility] POCT ACT LOW RANGE 2022-10-31 16:01:00 Phalak, [facility] POCT ACT LOW RANGE 2022-10-31 15:40:00 Phalak, [facility] POCT ACT LOW RANGE 2022-10-31 15:40:00 Phalak, [facility] POCT ACT LOW RANGE 2022-10-31 15:14:00 Phalak, [facility] POCT ACT LOW RANGE 2022-10-31 15:14:00 Phalak, [facility] POCT ACT LOW RANGE 2022-10-31 14:52:00 Phalak, [facility] POCT ACT LOW RANGE 2022-10-31 14:52:00 Selena, [facility] CATH PROCEDURE LOG 2022-10-31 14:28:42 Eze Santiago [facility] CATH PROCEDURE LOG 2022-10-31 14:28:42 Eze Santiago [facility] POCT GLUCOSE (AUTOMATED) 2022-10-31 12:26:00 Santos Lewis [facility] POCT GLUCOSE (AUTOMATED) 2022-10-31 12:26:00 [facility] ACTIVATED PARTIAL THRMPLAS ARCENIO 2022-10-31 06:23:00 Eze Santiago [facility] ACTIVATED PARTIAL THRMPLAS ARCENIO 2022-10-31 06:23:00 Eze Santiago [facility] ACTIVATED PARTIAL THRMPLAS ARCENIO 2022-10-31 05:19:00 Eze Santiago [facility] ACTIVATED PARTIAL THRMPLAS ARCENIO 2022-10-31 05:19:00 Eze Santiago [facility] POCT GLUCOSE (AUTOMATED) 2022-10-31 02:13:00 Santos Lewis amseverino [facility] POCT GLUCOSE (AUTOMATED) 2022-10-31 02:13:00 Santos Lewis amseverino [facility] ACTIVATED PARTIAL THRMPLAS ARCENIO 2022-10-30 23:12:00 Eze Santiago [facility] ACTIVATED PARTIAL THRMPLAS ARCENIO 2022-10-30 23:12:00 Eze Santiago [facility] POCT GLUCOSE (AUTOMATED) 2022-10-30 21:47:00 Sa bhaskar Maxwell [facility] POCT GLUCOSE (AUTOMATED) 2022-10-30 21:47:00 Sa bhaskar Maxwell [facility] ABORH CONFIRMATION (LAB ONLY) 2022-10-30 19:33:00 Adele [facility] ABORH CONFIRMATION (LAB ONLY) 2022-10-30 19:33:00 Adele [facility] HB ABO GROUPING 2022-10-30 18:35:00 Fernie [facility] HB ABO GROUPING 2022-10-30 18:35:00 Fernie [facility] POCT GLUCOSE (AUTOMATED) 2022-10-30 16:49:00 Sa bhaskar Maxwell [facility] POCT GLUCOSE (AUTOMATED) 2022-10-30 16:49:00 Sa bhaskar Maxwell [facility] ACTIVATED PARTIAL THRMPLAS ARCENIO 2022-10-30 14:35:00 Eze Santiago [facility] ACTIVATED PARTIAL THRMPLAS ARCENIO 2022-10-30 14:35:00 Eze Santiago [facility] POCT GLUCOSE (AUTOMATED) 2022-10-30 13:17:00 Sa bhaskar Maxwell [facility] POCT GLUCOSE (AUTOMATED) 2022-10-30 13:17:00 Sa bhaskar Maxwell [facility] BASIC METABOLIC PANEL (NA, K, CL, CO2, GLUCOSE, BUN, CREATININE, CA) 2022-10-30 09:52:00 Katherine Jose [facility] CBC WITH DIFF 2022-10-30 09:52:00 Jose [facility] BASIC METABOLIC PANEL (NA, K, CL, CO2, GLUCOSE, BUN, CREATININE, CA) 2022-10-30 09:52:[address] [facility] CBC WITH DIFF 2022-10-30 09:52:00 Jose [facility] POCT GLUCOSE (AUTOMATED) 2022-10-30 01:08:00 Sa bhaskar Maxwell [facility] POCT GLUCOSE (AUTOMATED) 2022-10-30 01:08:00 Sa bhaskar Maxwell [facility] ACTIVATED PARTIAL THRMPLAS ARCENIO 2022-10-30 00:38:00 Eze Santiago [facility] ACTIVATED PARTIAL THRMPLAS ARCENIO 2022-10-30 00:38:00 Eze Santiago Dori [facility] POCT GLUCOSE (AUTOMATED) 2022-10-29 21:52:00 Sa bhaskar Maxwell [facility] POCT GLUCOSE (AUTOMATED) 2022-10-29 21:52:00 Sa bhaskar Maxwell [facility] TRANSTHORACIC ECHO (TTE) COMPLETE W/ CONTRAST 2022-10-29 18:31:00 Eze Santiago [facility] TRANSTHORACIC ECHO (TTE) COMPLETE W/ CONTRAST 2022-10-29 18:31:00 Eze Santiago [facility] ACTIVATED PARTIAL THRMPLAS ARCENIO 2022-10-29 17:01:00 Eze Santiago [facility] ACTIVATED PARTIAL THRMPLAS ARCENIO 2022-10-29 17:01:00 Eze Santiago [facility] POCT GLUCOSE (AUTOMATED) 2022-10-29 16:30:00 Sa bhaskar Maxwell [facility] POCT GLUCOSE (AUTOMATED) 2022-10-29 16:30:00 Darren bhaskar [facility] POCT GLUCOSE (AUTOMATED) 2022-10-29 13:02:00 Darren [facility] POCT GLUCOSE (AUTOMATED) 2022-10-29 13:02:00 Sa bhaskar Maxwell [facility] MAGNESIUM 2022-10-29 08:07:00 MoJose hernandez [facility] BASIC METABOLIC PANEL (NA, K, CL, CO2, GLUCOSE, BUN, CREATININE, CA) 2022-10-29 08:07:[address] [facility] CBC WITH DIFF 2022-10-29 08:07:00 [facility] MAGNESIUM 2022-10-29 08:07:00 Jose Murphy [facility] BASIC METABOLIC PANEL (NA, K, CL, CO2, GLUCOSE, BUN, CREATININE, CA) 2022-10-29 08:07:[address] [facility] CBC WITH DIFF 2022-10-29 08:07:00 MoJose [facility] ACTIVATED PARTIAL THRMPLAS ARCENIO 2022-10-29 04:40:[address] [facility] ACTIVATED PARTIAL THRMPLAS ARCENIO 2022-10-29 04:40:[address] [facility] POCT GLUCOSE (AUTOMATED) 2022-10-29 01:36:00 Darren [facility] POCT GLUCOSE (AUTOMATED) 2022-10-29 01:36:00 Darren [facility] POCT GLUCOSE (AUTOMATED) 2022-10-29 01:36:00 Darren [facility] POCT GLUCOSE (AUTOMATED) 2022-10-28 21:55:00 Darren, [facility] POCT GLUCOSE (AUTOMATED) 2022-10-28 21:55:00 Darren [facility] POCT GLUCOSE (AUTOMATED) 2022-10-28 21:55:00 Darren [facility] CARDIAC CATHETERIZATION 2022-10-28 17:27:00 Viet Santiago [facility] CARDIAC CATHETERIZATION 2022-10-28 17:27:00 Viet Santiago [facility] CARDIAC CATHETERIZATION 2022-10-28 17:27:00 Ashish Viet lance Dori [facility] CARDIAC CATHETERIZATION 2022-10-28 17:27:00 Ashish Viet lance Dori [facility] CARDIAC CATHETERIZATION 2022-10-28 17:27:00 Ashish Viet lance Dori [facility] CARDIAC CATHETERIZATION 2022-10-28 17:27:00 Ashish Viet lance Dori [facility] POCT ACT LOW RANGE 2022-10-28 17:24:00 [facility] 2022-10-28 17:24:00 [facility] PO[facility] ACT LOW RANGE 2022-10-28 17:24:00 Kvng Maxwell Un [facility] CATH PROCEDURE LOG 2022-10-28 16:51:15 Eze Santiago [facility] MAGNESIUM 2022-10-28 10:59:00 [facility]IC PANEL (NA, K, CL, CO2, GLUCOSE, BUN, CREATININE, CA) 2022-10-28 10:59:00 Sun[facility] MAGNESIUM 2022-10-28 10:59:00 Sunil [facility] BASIC METABOLIC PANEL (NA, K, CL, CO2, GLUCOSE, BUN, CREATININE, CA) 2022-10-28 10:59:00 Sun[facility] MAGNESIUM 2022-10-28 10:59:00 Sunil [facility] BASIC METABOLIC PANEL (NA, K, CL, CO2, GLUCOSE, BUN, CREATININE, CA) 2022-10-28 10:59:00 [facility] 2022-10-28 09:01:00 [facility]PLAS ARCENIO 2022-10-28 09:01:00 Jose Murphy [facility] CBC WITH DIFF 2022-10-28 09:01:00 [facility] TH[facility]PLAS ARCENIO 2022-10-28 09:01:00 [place], [facility] CBC WITH DIFF 2022-10-28 09:01:00 Ellen Biggs [facility] ACTIVATED PARTIAL THRMPLAS ARCENIO 2022-10-28 09:01:[address] [facility] URINALYSIS 2022-10-28 04:32:00 [facility] URINE CULTURE 2022-10-28 04:32:00 Alex, [facility] URINALYSIS 2022-10-28 04:32:00 Alex, [facility] URINE CULTURE 2022-10-28 04:32:00 Alex, [facility] URINALYSIS 2022-10-28 04:32:00 Alex, [facility] POCT GLUCOSE (AUTOMATED) 2022-10-28 01:13:00 Sa bhaskar Maxwell [facility] POCT GLUCOSE (AUTOMATED) 2022-10-28 01:13:00 Sa bhaskar Maxwell [facility] POCT GLUCOSE (AUTOMATED) 2022-10-28 01:13:00 Sa bhaskar Maxwell [facility] ACTIVATED PARTIAL THRMPLAS ARCENIO 2022-10-28 01:02:00 Darren [facility] ACTIVATED PARTIAL THRMPLAS ARCENIO 2022-10-28 01:02:00 Darren [facility] ACTIVATED PARTIAL THRMPLAS ARCENIO 2022-10-28 01:02:00 Kvng Maxwell [facility] POCT GLUCOSE (AUTOMATED) 2022-10-27 22:58:00 Sa bhaskar Maxwell [facility] POCT GLUCOSE (AUTOMATED) 2022-10-27 22:58:00 Sa bhaskar Maxwell [facility] POCT GLUCOSE (AUTOMATED) 2022-10-27 22:58:00 Sa bhaskar Maxwell [facility] POCT GLUCOSE (AUTOMATED) 2022-10-27 21:45:00 Sa bhaskar Maxwell [facility] POCT GLUCOSE (AUTOMATED) 2022-10-27 21:45:00 Sa bhaskar Maxwell [facility] POCT GLUCOSE (AUTOMATED) 2022-10-27 21:45:00 Sa bhaskar Maxwell [facility] ACTIVATED PARTIAL THRMPLAS ARCENIO 2022-10-27 17:46:00 Eze Santiago Dori [facility] ACTIVATED PARTIAL THRMPLAS ARCENIO 2022-10-27 17:46:00 Eze Santiago [facility] ACTIVATED PARTIAL THRMPLAS ARCENIO 2022-10-27 17:46:00 Eze Santiago [facility] POCT GLUCOSE (AUTOMATED) 2022-10-27 17:45:00 Terminell izabela [facility] POCT GLUCOSE (AUTOMATED) 2022-10-27 17:45:00 Terminell a [facility] POCT GLUCOSE (AUTOMATED) 2022-10-27 17:45:00 Terminell a [facility] POCT GLUCOSE (AUTOMATED) 2022-10-27 13:46:00 Terminell a [facility] POCT GLUCOSE (AUTOMATED) 2022-10-27 13:46:00 Terminell a [facility] POCT GLUCOSE (AUTOMATED) 2022-10-27 13:46:00 Terminell izabela [facility] MAGNESIUM 2022-10-27 09:24:00 [facility] 2022-10-27 09:24:00 Eze Santiago [facility] BASIC METABOLIC PANEL (NA, K, CL, CO2, GLUCOSE, BUN, CREATININE, CA) 2022-10-27 09:24:00 [facility] CBC WITH DIFF 2022-10-27 09:24:00 [facility]22-10-27 09:24:00 Sunil [facility] TROPONIN I 2022-10-27 09:24:00 Eze Santiago [facility] BASIC METABOLIC PANEL (NA, K, CL, CO2, GLUCOSE, BUN, CREATININE, CA) 2022-10-27 09:24:00 Sun[facility] CBC WITH DIFF 2022-10-27 09:24:00 [facility]22-10-27 09:24[facility]00 [facility] 2022-10-27 09:24:00 Antoni Santiagoudy Dori [facility] BASIC METABOLIC PANEL (NA, K, CL, CO2, GLUCOSE, BUN, CREATININE, CA) 2022-10-27 09:24:00 Sunil [facility] CBC WITH DIFF 2022-10-27 09:24:00 Sunil [facility] POCT GLUCOSE (AUTOMATED) 2022-10-27 02:03:00 Terminjag garcia [facility] POCT GLUCOSE (AUTOMATED) 2022-10-27 02:03:00 Terminell izabela [facility] POCT GLUCOSE (AUTOMATED) 2022-10-27 02:03:00 Josué garcia [facility] MAGNESIUM 2022-10-26 21:49:00 Sunil [facility] BASIC METABOLIC PANEL (NA, K, CL, CO2, GLUCOSE, BUN, CREATININE, CA) 2022-10-26 21:49:00 [facility] POCT GLUCOSE (AUTOMATED) 2022-10-26 21:49:00 Terminjag garcia [facility] MAGNESIUM 2022-10-26 21:49:00 Sunil [facility] BASIC METABOLIC PANEL (NA, K, CL, CO2, GLUCOSE, BUN, CREATININE, CA) 2022-10-26 21:49:00 Sun[facility] POCT GLUCOSE (AUTOMATED) 2022-10-26 21:49:00 Terminell izabela [facility] MAGNESIUM 2022-10-26 21:49:00 Sunil [facility] BASIC METABOLIC PANEL (NA, K, CL, CO2, GLUCOSE, BUN, CREATININE, CA) 2022-10-26 21:49:00 Sun[facility] POCT GLUCOSE (AUTOMATED) 2022-10-26 21:49:00 Terminell a[facility] POCT GLUCOSE (AUTOMATED) 2022-10-26 17:57:00 Josué garcia [facility] POCT GLUCOSE (AUTOMATED) 2022-10-26 17:57:00 Josué garcia [facility] POCT GLUCOSE (AUTOMATED) 2022-10-26 17:57:00 Josué garcia [facility] MRSA / MSSA SCREEN BY PCR, [facility] 2022-10-26 15:14:00 [facility] MRSA / MSSA SCREEN BY PCR, [facility] 2022-10-26 15:14:00 [facility] MRSA / MSSA SCREEN BY PCR, [facility] 2022-10-26 15:14:00 Sunil [facility] HB ECG ROUTINE & RHYTHM STRIP 2022-10-26 14:36:55 Sunil [facility] HB ECG ROUTINE & RHYTHM STRIP 2022-10-26 14:36:55 Sunil [facility] HB ECG ROUTINE & RHYTHM STRIP 2022-10-26 14:36:55 Sun[facility] POCT GLUCOSE (AUTOMATED) 2022-10-26 14:20:00 Josué garcia [facility] POCT GLUCOSE (AUTOMATED) 2022-10-26 14:20:00 Josué garcia [facility] POCT GLUCOSE (AUTOMATED) 2022-10-26 14:20:00 [facility] 2022-10-26 08:13:28 Carlie Oconnor [facility] XR CHEST 1 2022-10-26 08:13:28 Carlie Oconnor [facility] XR CHEST 1 2022-10-26 08:13:28 Carlie Oconnor [facility] ACUTE CARE ARTERIAL BLOOD GAS 2022-10-26 08:09:00 Carlie Oconnor [facility] ACUTE CARE ARTERIAL BLOOD GAS 2022-10-26 08:09:00 Carlie Oconnor [facility] ACUTE CARE ARTERIAL BLOOD GAS 2022-10-26 08:09:00 Carlie Oconnor [facility] TROPONIN I 2022-10-26 07:58:00 Carlie Oconnor [facility] COMP. METABOLIC PANEL (93952) 2022-10-26 07:58:00 Carlie Oconnor [facility] CBC WITH DIFF 2022-10-26 07:58:00 Carlie Oconnor [facility] PROTHROMBIN TIME / INR 2022-10-26 07:58:00 Curtis Oconnor [facility] N-TERMINAL PRO-BNP 2022-10-26 07:58:00 Carlie Oconnor [facility] TROPONIN I 2022-10-26 07:58:00 Carlie Oconnor [facility] COMP. METABOLIC PANEL (81268) 2022-10-26 07:58:00 Carlie Oconnor [facility] CBC WITH DIFF 2022-10-26 07:58:00 Carlie Oconnor [facility] PROTHROMBIN TIME / INR 2022-10-26 07:58:00 Curtis Oconnor [facility] N-TERMINAL PRO-BNP 2022-10-26 07:58:00 Carlie Oconnor [facility] TROPONIN I 2022-10-26 07:58:00 Carlie Oconnor [facility] COMP. METABOLIC PANEL (98367) 2022-10-26 07:58:00 Carlie Oconnor [facility] CBC WITH DIFF 2022-10-26 07:58:00 Carlie Oconnor [facility] PROTHROMBIN TIME / INR 2022-10-26 07:58:00 Curtis Oconnor [facility] N-TERMINAL PRO-BNP 2022-10-26 07:58:00 Carlie Oconnor [facility] HB ECG ROUTINE & RHYTHM STRIP 2022-10-26 07:47:42 Carlie Oconnor [facility] HB ECG ROUTINE & RHYTHM STRIP 2022-10-26 07:47:42 Carlie Oconnor [facility] HB ECG ROUTINE & RHYTHM STRIP 2022-10-26 07:47:42 Carlie Oconnor [facility] CRITICAL CARE 2022-10-26 07:41:00 [facility] 2022-10-26 07:41:00 [facility] 2022-10-26 07:41:00 Carlie Oconnor [facility] POCT GLUCOSE (AUTOMATED) 2022-09-06 22:24:00 Rosa M Thomason [facility] POCT GLUCOSE (AUTOMATED) 2022-09-06 16:38:00 Rosa M Thomason [facility] POCT GLUCOSE (AUTOMATED) 2022-09-06 14:46:00 Rosa M Thomason [facility] TROPONIN I 2022-09-06 13:18:00 Girish Sales [facility] POCT GLUCOSE (AUTOMATED) 2022-09-06 12:31:00 Rosa M Thomason [facility] BASIC METABOLIC PANEL (NA, K, CL, CO2, GLUCOSE, BUN, CREATININE, CA) 2022-09-06 10:49:00 Girish Sales [facility] CBC WITHOUT DIFF 2022-09-06 10:49:00 Lucio Sales [facility] N-TERMINAL PRO-BNP 2022-09-06 10:49:00 Bela Ac [facility] POCT GLUCOSE (AUTOMATED) 2022-09-06 00:46:00 Rosa M Thomason [facility] POCT GLUCOSE (AUTOMATED) 2022-09-05 22:08:00 Rosa M Thomason [facility] POCT GLUCOSE (AUTOMATED) 2022-09-05 21:22:00 Rosa M Thomason [facility] POCT GLUCOSE (AUTOMATED) 2022-09-05 16:53:00 Rosa M Thomason [facility] BASIC METABOLIC PANEL (NA, K, CL, CO2, GLUCOSE, BUN, CREATININE, CA) 2022-09-05 10:53:00 Girish Sales [facility] CBC WITHOUT DIFF 2022-09-05 08:31:00 Lucio Sales [facility] POCT GLUCOSE (AUTOMATED) 2022-09-05 02:10:00 Rosa M Thomason [facility] POCT GLUCOSE (AUTOMATED) 2022-09-04 23:03:00 Rosa M Thomason [facility] POCT GLUCOSE (AUTOMATED) 2022-09-04 17:02:00 Rosa M Thomasonizabela [facility] POCT GLUCOSE (AUTOMATED) 2022-09-04 13:30:00 Rosa M Thomason [facility] MAGNESIUM 2022-09-04 10:25:00 Allyssa Biggs [facility] BASIC METABOLIC PANEL (NA, K, CL, CO2, GLUCOSE, BUN, CREATININE, CA) 2022-09-04 10:25:00 Girish Sales [facility] CBC WITHOUT DIFF 2022-09-04 10:25:00 Lucio Sales [facility] POCT GLUCOSE (AUTOMATED) 2022-09-04 02:19:00 Rosa M Thomason [facility] POCT GLUCOSE (AUTOMATED) 2022-09-03 22:28:00 Rosa M Thomason [facility] TRANSTHORACIC ECHO (TTE) COMPLETE W/ CONTRAST 2022-09-03 20:18:52 [facility]22-09-03 18:20:00 Allyssa Biggs [facility] POCT GLUCOSE (AUTOMATED) 2022-09-03 17:38:00 Rosa M Thomason [facility] POCT GLUCOSE (AUTOMATED) 2022-09-03 13:32:00 Rosa M Thomason [facility] MAGNESIUM 2022-09-03 10:30:00 Allyssa Biggs [facility] TROPONIN I 2022-09-03 10:30:00 Allyssa Biggs [facility] BASIC METABOLIC PANEL (NA, K, CL, CO2, GLUCOSE, BUN, CREATININE, CA) 2022-09-03 10:30:00 Allyssa Biggs [facility] LIPID PANEL (94455)(TOTAL CHOLESTEROL, TRIGLYCERIDES, HDL) 2022-09-03 10:30:00 [facility] 2022-09-03 04:03:00 Allyssa Biggs [facility] FERRITIN SERUM 2022-09-03 04:03:00 Allyssa Biggs [facility] TROPONIN I 2022-09-03 04:03:00 Sunil [facility] THYROID STIMULATING HORMONE 2022-09-03 04:03:00 Sunil [facility] BASIC METABOLIC PANEL (NA, K, CL, CO2, GLUCOSE, BUN, CREATININE, CA) 2022-09-03 04:03:00 Sunil [facility] IRON PANEL 2022-09-03 04:03:00 Allyssa Biggs [facility] CBC WITH DIFF 2022-09-03 04:03:00 Allyssa Biggs [facility] GLYCOSYLATED HEMOGLOBIN (A1C) 2022-09-03 04:03:00 Sunil [facility] N-TERMINAL PRO-BNP 2022-09-03 04:03:00 [facility] 2022-09-03 03:37:00 Allyssa Biggs [facility] POCT GLUCOSE (AUTOMATED) 2022-09-03 02:53:00 Rosa M Thomason [facility] ASSIGNMENT OF BENEFITS 2022-05-27 21:59:04 Docto r Unassigned, [place] [facility] REFERRAL- REQUEST/RESPONSE 2022-05-16 06:01:00 Nita boucher Unassigned, [place] [facility] Ekg 2020-08-15 00:00:00 Surendra White Plan of Care Planned Activity Planned Date Details Comments Source Goal Plan of Care Note [code = 93852-5] Goal Plan of Care Note [code = 40136-4] Goal Plan of Care Note [code = 29297-9] Goal Plan of Care Note [code = 50507-3] Goal Plan of Care Note [code = 70197-6] Goal Plan of Care Note [code = 53559-2] Goal Plan of Care Note [code = 03185-0] Goal Plan of Care Note [code = 93953-9] Goal Plan of Care Note [code = 87223-5] Goal Plan of Care Note [code = 15838-0] Goal Plan of Care Note [code = 10191-7] Goal Plan of Care Note [code = 30712-8] Goal Plan of Care Note [code = 54643-8] Goal Plan of Care Note [code = 25358-8] Goal Plan of Care Note [code = 68247-7] Goal Plan of Care Note [code = 87733-2] Goal Plan of Care Note [code = 97439-1] Goal Plan of Care Note [code = 23393-0] Goal Plan of Care Note [code = 92926-4] Goal Plan of Care Note [code = 20446-7] Goal Plan of Care Note [code = 82721-9] Goal Plan of Care Note [code = 26220-6] Goal Plan of Care Note [code = 99265-7] Goal Plan of Care Note [code = 48826-7] Goal Plan of Care Note [code = 21601-2] Goal Plan of Care Note [code = 66652-6] Goal Plan of Care Note [code = 36972-5] Goal Plan of Care Note [code = 43318-6] Goal Plan of Care Note [code = 19867-2] Goal Plan of Care Note [code = 11673-1] Goal Plan of Care Note [code = 04138-0] Goal Plan of Care Note [code = 82190-1] Goal Plan of Care Note [code = 86252-9] Goal Plan of Care Note [code = 49347-1] Goal Plan of Care Note [code = 63627-8] Goal Plan of Care Note [code = 65846-8] Goal Plan of Care Note [code = 71647-0] Goal Plan of Care Note [code = 85176-5] Goal Plan of Care Note [code = 18381-0] Goal Plan of Care Note [code = 47889-0] Goal Plan of Care Note [code = 91828-3] Goal Plan of Care Note [code = 25685-4] Goal Plan of Care Note [code = 73580-5] Goal Plan of Care Note [code = 75537-5] Goal Plan of Care Note [code = 52380-9] Goal Plan of Care Note [code = 31684-2] Goal Plan of Care Note [code = 82165-5] Goal Plan of Care Note [code = 23725-8] Goal Plan of Care Note [code = 22352-8] Goal Plan of Care Note [code = 33266-2] Goal Plan of Care Note [code = 95522-8] Goal Plan of Care Note [code = 70092-7] Goal Plan of Care Note [code = 51950-7] Goal Plan of Care Note [code = 66916-8] Goal Plan of Care Note [code = 16405-8] Goal Plan of Care Note [code = 36263-7] Goal Plan of Care Note [code = 96474-6] Goal Plan of Care Note [code = 88525-5] Goal Plan of Care Note [code = 77879-9] Goal Plan of Care Note [code = 06686-2] Goal Plan of Care Note [code = 12138-4] Goal Plan of Care Note [code = 56256-4] Goal Plan of Care Note [code = 38948-7] Goal Plan of Care Note [code = 98107-7] Goal Plan of Care Note [code = 80350-7] Goal Plan of Care Note [code = 17234-1] Encounters Start Date/Time End Date/Time Encounter Type Admission Type Attending [facility] Care Facility Care Department Encounter ID Source 2024-09-12 15:30:00 2024-09-12 15:30:00 Outpatient WILVER KEVIN [facility] [id number] [facility] 2024-07-11 16:30:00 2024-07-11 16:30:00 Outpatient FUNMILAYO SILVEIRA SHIWAN [facility] [id number] [facility] 2024-07-05 00:00:00 2024-07-06 11:46:34 Transition of Care Rosaura Mariscal Kristi L CATECharanjit WALI CHAIAMALIA 1.2840.114 350.1.13.10 4.2.7.2.686 [id number] [facility] 2024-06-24 11:12:00 2024-07-04 16:43:00 Inpatient X INOCENCIO ROMAN [facility] [id number] [facility] 2024-06-24 11:12:00 2024-07-04 16:43:00 Hospital Encounter Inocencio Roman [facility] 1.2840.114 350.1.13.10 4.2.7.2.686 [id number] [facility] 2023-08-31 00:00:00 2024-07-02 02:20:33 Orders Only Doctor Unassigned, Albertson Doctor Unassigned, Albertson [facility] 1.2840.114 350.1.13.10 4.2.7.2.686 [id number] [facility] 2024-06-09 00:00:00 2024-06-09 10:42:41 Transition of Care Nakul Hansen Michele A SHEARN KEYES PLAAMALIA 1.2840.114 350.1.13.10 4.2.7.2.686 [id number] [facility] 2024-05-24 18:42:00 2024-06-08 17:43:00 Inpatient X INOCENCIO ROMAN [facility] [id number] [facility] 2024-05-24 18:42:00 2024-06-08 17:43:00 Hospital Encounter Jewel Sexton Jelani Edionwe, [facility] 1.2840.114 350.1.13.10 4.2.7.2.686 [id number] [facility] 2024-05-16 14:34:20 2024-05-16 14:34:20 Outpatient SFA [facility] [id number] Surendra White 2024-05-16 00:00:00 2024-05-16 00:00:00 Outpatient Visit SFA [id number] Surendra White 2024-05-05 12:54:22 2024-05-05 23:59:00 [facility] [id number] [facility] 2024-05-05 12:54:22 2024-05-05 23:59:00 Hospital Encounter Michele Bronson [facility] AT SUSANNA MARTINEZ 1..840.114 350.1.13.10 4.2.7.2.686 [id number] [facility] 2024-05-02 00:00:00 2024-05-02 16:40:41 Telephone Wilver Baker [facility] 1.2.840.114 350.1.13.10 4.2.7.2.686 [id number] [facility] 2024-04-26 00:00:00 2024-04-26 00:00:00 Outpatient R [facility] [id number] [facility] 2024-03-10 00:00:00 2024-03-11 10:13:05 Telephone Dilcia Mcdonald [facility] 1.2.840.114 350.1.13.10 4.2.7.2.686 [id number] [facility] 2024-03-10 07:52:00 2024-03-10 13:15:00 Outpatient R AWAIS BETHEA [facility] [id number] [facility] 2024-03-10 07:52:00 2024-03-10 13:15:00 Hospital Encounter Awais Bethea [facility] 1.2.840.114 350.1.13.10 4.2.7.2.686 [id number] [facility] 2024-03-10 07:52:00 2024-03-10 13:15:00 Inpatient R AWAIS BETHEA [facility] [id number] [facility] 2024-03-10 09:30:00 2024-03-10 10:30:00 Surgery Awais Bethea [facility] 1.2.840.114 350.1.13.10 4.2.7.2.686 [id number] [facility] 2024-03-10 07:30:00 2024-03-10 07:51:00 Hospital Encounter Awais Bethea [facility] 1.2.840.114 350.1.13.10 4.2.7.2.686 [id number] [facility] 2024-03-08 12:00:00 2024-03-08 12:15:00 Counter Server Visit Pete, [facility] Main Dilcia Mcdonald, [facility] Main [facility] 1.2.840.114 350.1.13.10 4.2.7.2.686 [id number] [facility] 2024-03-08 12:00:00 2024-03-08 12:00:00 Outpatient DILCIA GAMEZ [facility] [id number] [facility] 2024-03-07 00:00:00 2024-03-07 10:06:33 Telephone Awais Bethea [facility] 1.2.840.114 350.1.13.10 4.2.7.2.686 [id number] [facility] 2024-03-04 00:00:00 2024-03-04 12:33:44 Telephone Awais Bethea [facility] 1.2.840.114 350.1.13.10 4.2.7.2.686 [id number] [facility] 2024-03-04 11:30:00 2024-03-04 12:00:00 Office Visit Wilver Baker [facility] 1.2.840.114 350.1.13.10 4.2.7.2.686 [id number] [facility] 2024-03-04 11:30:00 2024-03-04 11:30:00 Outpatient R WILVER BAKER [facility] [id number] [facility] 2024-03-01 13:40:00 2024-03-01 13:40:00 Outpatient LALIT LINARES HOWARD [facility] [id number] [facility] 2024-02-11 10:13:13 2024-02-11 10:13:[address] [facility] [id number] Surendra White 2024-02-11 00:00:00 2024-02-11 00:00:[address] [facility] [id number] Surendra White 2023-12-18 00:00:00 2024-01-23 18:23:55 Patient Secure Msg Doctor Unassigned, Albertson Doctor Unassigned, Albertson [facility] 1.2.840.114 350.1.13.10 4.2.7.2.686 [id number] [facility] 2024-01-07 09:57:00 2024-01-07 09:57:00 Outpatient [facility] [id number] Surendra White 2024-01-07 00:00:00 2024-01-07 00:00:[address] [facility] [id number] Surendra White 2023-12-30 12:01:00 2023-12-30 17:31:00 Emergency X DARSHAN JEWEL SANTIZO [facility] [id number] [facility] 2023-12-30 12:01:00 2023-12-30 17:31:00 Emergency Sexton Jewel [facility] 1.2.840.114 350.1.13.10 4.2.7.2.686 [id number] [facility] 2023-12-29 15:00:00 2023-12-29 15:00:00 Outpatient LALIT LINARES HOWARD [facility] [id number] [facility] 2023-12-23 00:00:00 2023-12-23 14:04:21 Letter (Out) Massiel Mccoy i [facility] 1.2.840.114 350.1.13.10 4.2.7.2.686 [id number] [facility] 2023-12-18 11:20:00 2023-12-18 11:20:00 Outpatient R [facility] [id number] [facility] 2023-12-17 14:45:50 2023-12-17 14:45:[address] [facility] [id number] Surendra White 2023-12-17 00:00:00 2023-12-17 00:00:[address] [facility] [id number] Surendra White 2023-12-11 16:20:00 2023-12-11 16:20:00 Outpatient EZE CANTU [facility] [id number] [facility] 2023-12-10 15:51:26 2023-12-10 15:51:[address] [facility] [id number] Surendra White 2023-12-10 00:00:00 2023-12-10 00:00:[address] [facility] [id number] Surendra White 2023-12-08 00:00:00 2023-12-09 09:50:58 Telephone Eze Santiago [facility] 1..840.114 350.1.13.10 4.2.7.2.686 [id number] [facility] 2023-12-01 13:20:00 2023-12-01 13:20:00 Outpatient LALIT LINARES HOWARD [facility] [id number] [facility] 2023-11-12 13:47:03 2023-11-12 13:47:03 Outpatient SFA [facility] [id number] Surendra White 2023-11-12 00:00:00 2023-11-12 00:00:[address] [facility] [id number] Surendra White 2023-10-27 00:00:00 2023-10-27 10:54:34 Transition of Care Arlene Hoffman ..840.114 350.1.13.10 4.2.7.2.686 [id number] [facility] 2023-10-21 22:03:00 2023-10-26 17:13:00 Inpatient ANGEL LUIS LOUISE [facility] [id number] [facility] 2023-10-21 22:03:00 2023-10-26 17:13:00 Hospital Encounter Hiren Foreman Mohammad A. [facility] ..840.114 350.1.13.10 4.2.7.2.686 [id number] [facility] 2023-10-26 15:00:00 2023-10-26 15:00:00 Outpatient LALIT LINARES HOWARD [facility] [id number] [facility] 2023-10-26 13:21:44 2023-10-26 13:21:[address] [facility] [id number] Surendra White 2023-10-23 10:30:00 2023-10-23 10:30:00 Outpatient SURENDRA ALVAREZ [facility] [id number] [facility] 2023-09-03 00:00:00 2023-10-10 18:12:33 Patient Secure Msg Doctor Unassigned, Albertson [facility] 1.840.114 350.1.13.10 4.2.7.2.686 [id number] [facility] 2023-09-19 00:00:00 2023-09-21 08:12:04 Refill Bela Ac [facility] MEDICAL OFFICE BUILDING 1.840.114 350.1.13.10 4.2.7.2.686 [id number] [facility] 2023-09-04 11:00:00 2023-09-04 11:00:00 Outpatient SURENDRA ALVAREZ [facility] [id number] [facility] 2023-08-25 16:45:06 2023-08-25 16:45:06 Outpatient [facility] [id number] Surendra White 2023-08-25 00:00:00 2023-08-25 00:00:[address] [facility] [id number] Surendra White 2023-08-06 15:38:46 2023-08-06 15:38:46 Outpatient [facility] [id number] Surendra White 2023-07-28 00:00:00 2023-07-28 00:00:00 Orders Only Doctor Unassigned, Albertson [facility] 1.2840.114 350.1.13.10 4.2.7.2.686 [id number] [facility] 2023-07-27 14:20:00 2023-07-27 14:20:00 Outpatient R [facility] [id number] [facility] 2023-07-09 18:38:00 2023-07-09 21:52:00 Emergency X YESSICA HODGES [facility] ERT [id number] [facility] 2023-07-09 18:38:00 2023-07-09 21:52:00 Emergency Yessica Hodges [facility] 1.2.840.114 350.1.13.10 4.2.7.2.686 [id number] [facility] 2023-07-09 16:19:13 2023-07-09 16:19:[address] [facility] [id number] Surendra White 2023-07-09 00:00:00 2023-07-09 00:00:[address] [facility] [id number] Surendra White 2023-04-29 13:30:00 2023-04-29 13:45:00 Counter Server Visit Pob, Adc Lab Main Antoni Santiagoudy [facility] 1.2.840.114 350.1.13.10 4.2.7.2.686 [id number] [facility] 2023-04-29 13:30:00 2023-04-29 13:30:00 Outpatient R ASHISH EZE [facility] [id number] [facility] 2023-04-29 11:45:16 2023-04-29 11:45:[address] [facility] [id number] Surendra F Christopher 2023-04-28 16:27:53 2023-04-28 16:27:[address] [facility] [id number] Surendra F Christopher 2023-04-02 10:50:14 2023-04-02 10:50:14 Outpatient [facility] [id number] Surendra Vandana Christopher 2023 13:19:00 2023 18:56:00 Emergency X Clark JULIAN [facility] E[facility] [id number] [facility] 2023 13:19:00 2023 18:56:00 Emergency Clark Julian [facility] 1.2.840.114 350.1.13.10 4.2.7.2.686 [id number] [facility] 2023-03-28 00:00:00 2023-03-28 00:00:00 Patient Secure Msg Doctor Unassigned, Albertson [facility] 1.2.840.114 350.1.13.10 4.2.7.2.686 [id number] [facility] 2023-03-23 13:40:00 2023-03-23 14:20:00 Office Visit Eze Santiago [facility] MEDICAL OFFICE BUILDING 1.2.840.114 350.1.13.10 4.2.7.2.686 [id number] [facility] 2023-03-23 13:40:00 2023-03-23 13:40:00 Outpatient EZE CANTU [facility] [id number] [facility] 2023-03-23 00:00:00 2023-03-23 00:00:00 Orders Only Doctor Unassigned, Albertson [facility] 1.2.840.114 350.1.13.10 4.2.7.2.686 [id number] [facility] 2023-03-17 14:30:00 2023-03-17 14:30:00 Outpatient GIRISH HEAD [facility] [id number] [facility] 2023-03-17 00:00:00 2023-03-17 00:00:00 Outpatient GC_GCBZW_Ka diyala_S [facility] [id number] [facility] 2023-03-16 00:00:00 2023-03-16 00:00:00 Outpatient GC_GCBZW_Ka diyala_S PRIV [facility] [id number] [facility] 2023-03-02 00:00:00 2023-03-02 00:00:00 Patient Secure Msg Doctor Unassigned, Albertson [facility] 1.840.114 350.1.13.10 4.2.7.2.686 [id number] [facility] 2023-02-24 00:00:00 2023-02-24 00:00:00 Patient Secure Msg Doctor Unassigned, Albertson [facility] 1.0.114 350.1.13.10 4.2.7.2.686 [id number] [facility] 2023-02-20 00:00:00 2023-02-20 00:00:00 Transition of Care Rosaura Mariscal 1..114 350.1.13.10 4.2.7.2.686 [id number] [facility] 2023-02-02 14:37:00 2023-02-18 15:30:00 Inpatient U ANA PAULA BERRY, [facility] [id number] [facility] 2023-02-02 14:37:00 2023-02-18 15:30:00 Hospital Encounter Brandon Shelton, Ryan Berry [facility] ([facility]) 1.0.114 350.1.13.10 4.2.7.2.686 [id number] [facility] 2023-02-16 20:03:49 2023-02-16 20:03:49 Anesthesia Event Isacc Conley [facility] ([facility]) 1.840.114 350.1.13.10 4.2.7.2.686 [id number] [facility] 2023-02-09 20:03:43 2023-02-09 20:03:43 Anesthesia Event Isacc Conley [facility] ([facility]) 1.2.840.114 350.1.13.10 4.2.7.2.686 [id number] [facility] 2023-02-04 00:00:00 2023-02-04 00:00:00 Travel 1.2.840.1 87740.1.1 3.104.2.7 .3.169982 .8 1.2.840.114 350.1.13.10 4.2.7.3.698 084.8 [id number] [facility] 2023-02-02 00:00:00 2023-02-02 00:00:00 Travel 1.2.840.1 03088.1.1 3.104.2.7 .3.896700 .8 1.2.840.114 350.1.13.10 4.2.7.3.698 [id number] [facility] 2023-01-12 11:00:00 2023-01-12 11:00:00 Outpatient FAHEEM MARTINEZ [facility] [id number] [facility] 2023-01-12 00:00:00 2023-01-12 00:00:00 Orders Only Doctor Unassigned, Albertson [facility] 1.2.840.114 350.1.13.10 4.2.7.2.686 [id number] [facility] 2022-12-18 17:03:38 2022-12-18 17:03:38 Outpatient KALPANA ACUNA [id number] Surendra White 2022-11-27 10:30:00 2022-11-27 10:30:00 Outpatient FAHEEM MARTINEZ [facility] [id number] [facility] 2022-11-10 00:00:00 2022-11-10 00:00:00 Transition of Care Arlene Hoffman 1.2.840.1 29134.1.1 3.104.2.7 .3.499646 .8 [id number] [facility] 2022-10-26 02:43:00 2022-11-07 14:30:00 Hospital Encounter Carlie Oconnor, Angel Luis Abreu, Abbe Lindsey 1.2.840.1 09485.1.1 3.104.2.7 .3.379900 .8 [id number] [facility] 2022-10-26 02:43:00 2022-11-07 14:30:00 Inpatient U ABBE LEWIS SAMEER [facility] [id number] [facility] 2022-10-31 09:30:00 2022-10-31 11:30:00 Surgery [facility] 1.2.840.114 350.1.13.10 4.2.7.2.686 [id number] [facility] 2022-10-28 10:30:00 2022-10-28 13:30:00 Surgery [facility] ([facility]) 1.2.840.114 350.1.13.10 4.2.7.2.686 [id number] [facility] 2022-10-15 16:42:13 2022-10-15 16:42:13 Outpatient [facility] [id number] Surendra Vandana Christopher 2022-10-14 13:20:00 2022-10-14 13:20:00 Outpatient LALIT LINARES HOWARD [facility] [id number] [facility] 2022-09-29 00:00:00 2022-09-29 00:00:00 Telephone [facility] 1.2840.114 350.1.13.10 4.2.7.2.686 [id number] [facility] 2022-09-15 15:43:42 2022-09-15 15:43:42 Outpatient SFA SFA [id number] Surendra White 2022-09-10 00:00:00 2022-09-10 00:00:00 [facility] 1.2840.114 350.1.13.10 4.2.7.2.686 [id number] [facility] 2022-09-09 16:30:00 2022-09-09 16:30:00 Outpatient Severino ALBERTA OSUNA [facility] [id number] [facility] 2022-09-09 00:00:00 2022-09-09 00:00:00 Patient Secure Msg Doctor Unassigned, Albertson [facility] 1.2840.114 350.1.13.10 4.2.7.2.686 [id number] [facility] 2022-09-08 00:00:00 2022-09-08 00:00:00 Transition of Care Arlene Hoffman [facility] 1.2840.114 350.1.13.10 4.2.7.2.686 [id number] [facility] 2022-09-02 21:16:00 2022-09-06 18:59:00 Inpatient U ALLYSSA BIGGS [facility] MIGUELANGEL [id number] [facility] 2022-09-02 21:16:00 2022-09-06 18:59:00 Hospital Encounter Vince Thomason Jigar [facility] ([facility]) 1.2840.114 350.1.13.10 4.2.7.2.686 [id number] [facility] 2022-09-02 16:30:00 2022-09-02 16:30:00 Outpatient Severino ALBERTA OSUNA [facility] [id number] [facility] 2022-08-19 08:42:21 2022-08-19 08:42:[address] [facility] [id number] Surendra White 2022-05-27 16:00:00 2022-05-27 16:56:43 Outpatient LALIT LINARES HOWARD [facility] [id number] [facility] 2022-05-27 16:00:00 2022-05-27 16:56:43 Office Visit Lalit Perez [facility] 1.2.840.114 350.1.13.10 4.2.7.2.686 [id number] [facility] 2022-05-27 00:00:00 2022-05-27 00:00:00 Orders Only Doctor Unassigned, Albertson [place] [address].2.840.114 350.1.13.10 4.2.7.2.686 [id number] [facility] 2022-05-16 00:00:00 2022-05-16 00:00:00 Orders Only Doctor Unassigned, Albertson [place] [address].2.840.114 350.1.13.10 4.2.7.2.686 [id number] [facility] 2022-05-06 08:00:00 2022-05-06 08:00:00 Outpatient LALIT LINARES HOWARD [facility] [id number] [facility] 2022-05-02 15:20:00 2022-05-02 15:20:00 Outpatient LALIT LINARES HOWARD [facility] [id number] [facility] 2022-04-03 00:00:00 2022-04-03 00:00:00 Outpatient Visit [id number] 2022-02-18 16:39:55 2022-02-18 16:39:[address] [facility] [id number] Surendra White 2022-02-18 00:00:00 2022-02-18 00:00:00 Outpatient Visit [id number] 2022-02-14 16:00:00 2022-02-14 16:00:00 Outpatient LALIT LINARES HOWARD [facility] [id number] [facility] 2022-01-31 16:40:00 2022-01-31 17:00:00 Office Visit Provider, [facility] 1.2.840.114 350.1.13.10 4.2.7.2.686 [id number] [facility] 2022-01-31 16:40:00 2022-01-31 16:40:00 Outpatient MARGARETH HENDRICKS [facility] [id number] [facility] 2022-01-31 16:40:00 2022-01-31 16:40:00 Outpatient MARGARETH HENDRICKS [facility] [id number] [facility] 2022-01-03 00:00:00 2022-01-03 00:00:00 Outpatient Visit [id number] 2021-12-24 00:00:00 2021-12-24 00:00:00 Outpatient Visit [id number] 2021-10-21 00:00:00 2021-10-21 00:00:00 Orders Only Doctor Unassigned, [place] [facility] 1.20.114 350.1.13.10 4.2.7.2.686 [id number] [facility] 2021-09-09 00:00:00 2021-09-09 00:00:00 Orders Only Doctor Unassigned, [place] [facility] 1.20.114 350.1.13.10 4.2.7.2.686 [id number] [facility] 2021-07-10 15:20:00 2021-07-10 15:20:00 Outpatient Sevreino WARNER [facility] [id number] [facility] 2021-06-19 15:40:00 2021-06-19 15:40:00 [facility] [id number] [facility] 2021-05-16 00:00:00 2021-05-16 00:00:00 Orders Only Doctor Unassigned, [place] [facility] 1..114 350.1.13.10 4.2.7.2.686 [id number] [facility] 2021-04-09 19:22:58 2021-04-09 23:59:00 Hospital Encounter Mack [facility] 1..114 350.1.13.10 4.2.7.2.686 [id number] [facility] 2021-04-09 19:22:57 2021-04-09 23:59:00 Hospital Encounter [facility] 1.0.114 350.1.13.10 4.2.7.2.686 [id number] [facility] 2021-04-09 19:03:28 2021-04-09 19:49:57 [address] L[address] [facility] 1.2.840.114 350.1.13.10 4.2.7.2.686 [id number] [facility] 2021-04-09 19:00:00 2021-04-09 19:49:57 Outpatient R CECE LAZAR [facility] [id number] [facility] 2021-04-09 00:00:00 2021-04-09 00:00:00 Letter (Out) Doctor Unassigned, [place] [facility] 1.2.840.114 350.1.13.10 4.2.7.2.686 [id number] [facility] 2021-04-03 00:00:00 2021-04-03 00:00:00 Orders Only Doctor Unassigned, [place] [facility] 1..840.114 350.1.13.10 4.2.7.2.686 [id number] [facility] Results Test Description Test Time Test Comments Results Result Co mments Source [facility] GLUCOSE (AUTOMATED)2024-07-04 13:36:16* Test Item Value Reference Range Interpretation Comme nts POCT GLU (test code = 8768734196) 158 mg/dL 70-110 H Lab Interpretation (test cod e = 67978-4) Abnormal [facility] GLUCOSE (AUTOMATED)2024-07-04 02:05:18* Test Item Value Reference Range Interpretation Comme nts POCT GLU (test code = 8936904852) 253 mg/dL 70-110 H Lab Interpretation (test cod e = 97688-0) Abnormal [facility] GLUCOSE (AUTOMATED)2024-07-03 22:54:15* Test Item Value Reference Range Interpretation Comme nts POCT GLU (test code = 0413986438) 285 mg/dL 70-110 H Lab Interpretation (test cod e = 24716-8) Abnormal [facility] GLUCOSE (AUTOMATED)2024-07-03 17:47:47* Test Item Value Reference Range Interpretation Comme nts POCT GLU (test code = 8077698369) 269 mg/dL 70-110 H Lab Interpretation (test cod e = 37578-2) Abnormal [facility] GLUCOSE (AUTOMATED)2024-07-03 13:43:44* Test Item Value Reference Range Interpretation Comme nts POCT GLU (test code = 1003071938) 169 mg/dL 70-110 H Lab Interpretation (test cod e = 84605-3) Abnormal [facility] GLUCOSE (AUTOMATED)2024-07-03 02:45:14* Test Item Value Reference Range Interpretation Comme nts POCT GLU (test code = 3381311055) 257 mg/dL 70-110 H Lab Interpretation (test cod e = 84690-1) Abnormal [facility] GLUCOSE (AUTOMATED)2024-07-02 22:39:45* Test Item Value Reference Range Interpretation Comme nts POCT GLU (test code = 1074475220) 254 mg/dL 70-110 H Lab Interpretation (test cod e = 05967-7) Abnormal [facility] GLUCOSE (AUTOMATED)2024-07-02 17:53:43* Test Item Value Reference Range Interpretation Comme nts POCT GLU (test code = 1870544972) 228 mg/dL 70-110 H Lab Interpretation (test cod e = 48073-8) Abnormal [facility] GLUCOSE (AUTOMATED)2024-07-02 13:42:47* Test Item Value Reference Range Interpretation Comme nts POCT GLU (test code = 7944849042) 134 mg/dL 70-110 H Lab Interpretation (test cod e = 78459-8) Abnormal [facility] Metabolic Panel (NA, K, CL, CO2, GLUCOSE, BUN, CREATININE, CA)2024-07-02 10:56:48* Test Item Value Reference Range Interpretation Comme nts NA (test code = 0782951722) 134 mmol/L 135-145 L K (test code = 1990464382) 4.0 mmol/L 3.5-5.0 CL (test code = 6217293502) 101 mmol/L 98-108 CO2 TOTAL (test code = 0677574303) 28 mmol/L 23-31 AGAP (test code = 3420216428) 5 2-16 BUN (test code = 9067670089) 21 mg/dL 7-23 GLUCOSE (test code = 1025659188) 168 mg/dL 70-110 H CREATININE (test code = 2160-0) 0.63 mg/dL 0.50-1.04 CALCIUM (test code = 7798991832) 9.1 mg/dL 8.6-10.6 eGFR (test code = 98390-2) 90.4 mL/min/1.73m2 CKD-EPI eGFR (2020). Assuming creatinine has been stable day-to-day for at least three months, the eGFR indicates Category G1 (>= 90 mL/min/1.73 m2) Lab Interpretation (test code = 51723-2) [facility]-[id number] 10:51:56* Test Item Value Reference Range Interpretation Comme nts NT-proBNP (test code = 50080-2) 304 pg/mL <=125 LOW (test code = LOW) Result Indeterminate-Consid er causes of NT-proBNP elevation other than Heart failure such as acute coronary syndrome, pulmonary embolism, pulmonary hypertension, sepsis, stroke, and renal dysfunction. Lab Interpretation (test code = 43794-2) [facility]normal [facility]esium2025-02-15 10:49:15* Test Item Value Reference Range Interpretation Comme nts MAGNESIUM (test code = 6390287735) 1.7 mg/dL 1.7-2.4 Lab Interpretation (test cod e = 80088-5) Normal [facility]inte[facility]bc with [id number] 10:20:12* Test Item Value Reference Range Interpretation Comme nts WBC (test code = 6690-2) 10.28 4.30-11.10 RBC (test code = 789-8) 3.94 3.93-5.25 HGB (test code = 718-7) 12.0 g/dL 11.6-15.0 HCT (test code = 4544-3) 36.1 % 35.7-45.2 MCV (test code = 787-2) 91.6 fL 80.6-95.5 MCH (test code = 785-6) 30.5 pg 25.9-32.8 MCHC (test code = 786-4) 33.2 g/dL 31.6-35.1 RDW-SD (test code = 73961-9) 48.8 fL 39.0-49.9 RDW-CV (test code = 788-0) 14.9 % 12.0-15.5 PLT (test code = 777-3) 283 166-358 MPV (test code = 81612-5) 9.6 fL 9.5-12.9 NRBC/100 WBC (test code = 5578492607) 0.0 0.0-10.0 NRBC x10^3 (test code = 0091772373) See_Comment [Automated messa ge] The system which generated this result transmitted reference range: 10*3/?L. The reference range was not used to interpret this result as normal/abnormal. GRAN MAT (NEUT) % (test code = 770-8) 73.3 % IMM GRAN % (test code = 8136657857) 1.80 % LYMPH % (test code = 736-9) 17.5 % MONO % (test code = 5905-5) 7.2 % EOS % (test code = 713-8) 0.0 % BASO % (test code = 706-2) 0.2 % GRAN MAT x10^3(ANC) (test code = 0212176038) 7.54 10*3/uL 1.88-7.09 H IMM GRAN x10^3 (test code = 7608442056) 0.18 10*3/uL 0.00-0.06 H LYMPH x10^3 (test code = 731-0) 1.80 10*3/uL 1.32-3.29 MONO x10^3 (test code = 742-7) 0.74 10*3/uL 0.33-0.92 EOS x10^3 (test code = 711-2) 0.03-0.39 L BASO x10^3 (test code = 704-7) 0.01-0.07 Lab Interpretation (test code = 03176-5) Abnormal [facility] GLUCOSE (AUTOMATED)2024-07-02 02:51:48* Test Item Value Reference Range Interpretation Comme nts POCT GLU (test code = 0917520888) 297 mg/dL 70-110 H Lab Interpretation (test cod e = 69119-1) Abnormal [facility] GLUCOSE (AUTOMATED)2024-07-01 22:46:46* Test Item Value Reference Range Interpretation Comme nts POCT GLU (test code = 4484401983) 319 mg/dL 70-110 H Lab Interpretation (test cod e = 84015-1) Abnormal [facility] GLUCOSE (AUTOMATED)2024-07-01 17:42:14* Test Item Value Reference Range Interpretation Comme nts POCT GLU (test code = 3854345624) 270 mg/dL 70-110 H Lab Interpretation (test cod e = 15922-1) Abnormal [facility] GLUCOSE (AUTOMATED)2024-07-01 14:01:16* Test Item Value Reference Range Interpretation Comme nts POCT GLU (test code = 1174765440) 79 mg/dL 70-110 Lab Interpretation (test cod e = 33052-1) Normal [facility] GLUCOSE (AUTOMATED)2024-07-01 02:54:13* Test Item Value Reference Range Interpretation Comme nts POCT GLU (test code = 4252343089) 200 mg/dL 70-110 H Lab Interpretation (test cod e = 15588-6) Abnormal [facility] GLUCOSE (AUTOMATED)2024-06-30 22:19:15* Test Item Value Reference Range Interpretation Comme nts POCT GLU (test code = 3060031803) 307 mg/dL 70-110 H Lab Interpretation (test cod e = 70161-1) Abnormal [facility] GLUCOSE (AUTOMATED)2024-06-30 17:25:16* Test Item Value Reference Range Interpretation Comme nts POCT GLU (test code = 6360870865) 278 mg/dL 70-110 H Lab Interpretation (test cod e = 80080-0) Abnormal [facility] GLUCOSE (AUTOMATED)2024-06-30 13:23:31* Test Item Value Reference Range Interpretation Comme nts POCT GLU (test code = 0039987345) 188 mg/dL 70-110 H Lab Interpretation (test cod e = 89748-5) [facility]normal [facility] Chest 1 [id number] 12:31:09History: SOB Portable. Exam: XR CHEST 1 Date: 06/30/2024 6:00 AM Ordering provider: ARIC GARCIA Comparison: 06/29/2024. Findings: Frontal view of the chest is obtained. The cardiac silhouette is moderately enlarged. There are atheroscleroticchanges of the aorta. The patient's face obscures the lung apices limitingevaluation. The right hemidiaphragm is mildly elevated. Moderate rightbasilar opacities are similar on the prior. There is improved aeration ofthe left lung base. No sizable pleural effusion. No definite pneumothorax.[facility] GLUCOSE (AUTOMATED)2024-06-30 02:14:52* Test Item Value Reference Range Interpretation Comme nts POCT GLU (test code = 2949750991) 230 mg/dL 70-110 H Lab Interpretation (test cod e = 85272-0) Abnormal [facility] GLUCOSE (AUTOMATED)2024-06-29 22:38:56* Test Item Value Reference Range Interpretation Comme nts POCT GLU (test code = 2899572951) 274 mg/dL 70-110 H Lab Interpretation (test cod e = 11011-8) [facility]normal [facility]2024-06-29 17:51:57* Test Item Value Reference Range Interpretation Comme nts POCT GLU (test code = 7961136831) 202 mg/dL 70-110 H Lab Interpretation (test cod e = 41969-7) [facility]normal [facility] Chest 1 [id number] 15:19:28HISTORY: SOB. TECHNIQUE: Portable AP view of the chest is obtained. Comparison made withprevious portable study dated 06/27/2024. FINDINGS: Bibasilar pulmonary congestion, small left and minimal rightpleural effusion and mild cardiomegaly noted. Upper lungs are clear. Remotefractures of the left posterior lower ribs noted. CONCLUSIONS: Worsening with increased bibasilar pulmonary congestion,possible small left pleural effusion since 06/27/2024 study.[facility] GLUCOSE (AUTOMATED)2024-06-29 13:47:54* Test Item Value Reference Range Interpretation Comme nts POCT GLU (test code = 5079989790) 236 mg/dL 70-110 H Lab Interpretation (test cod e = 63241-0) [facility] 01:46:56* Test Item Value Reference Range Interpretation Comme nts POCT GLU (test code = 6337262685) 283 mg/dL 70-110 H Lab Interpretation (test cod e = 30433-4) [facility]2024-06-28 22:47:23* Test Item Value Reference Range Interpretation Comme nts POCT GLU (test code = 2418671606) 331 mg/dL 70-110 H Lab Interpretation (test cod e = 72521-4) [facility]normal [facility]2024-06-28 17:49:25* Test Item Value Reference Range Interpretation Comme nts POCT GLU (test code = 9795029237) 344 mg/dL 70-110 H Lab Interpretation (test cod e = 24984-3) Abnormal [facility] GLUCOSE (AUTOMATED)2024-06-28 13:54:24* Test Item Value Reference Range Interpretation Comme nts POCT GLU (test code = 7138473481) 202 mg/dL 70-110 H Lab Interpretation (test cod e = 76454-0) Abnormal [facility] GLUCOSE (AUTOMATED)2024-06-28 04:37:54* Test Item Value Reference Range Interpretation Comme nts POCT GLU (test code = 4974492583) 275 mg/dL 70-110 H Lab Interpretation (test cod e = 87257-8) Abnormal [facility] GLUCOSE (AUTOMATED)2024-06-28 01:39:53* Test Item Value Reference Range Interpretation Comme nts POCT GLU (test code = 4936937594) 359 mg/dL 70-110 H Lab Interpretation (test cod e = 21068-5) Abnormal [facility] GLUCOSE (AUTOMATED)2024-06-27 22:21:53* Test Item Value Reference Range Interpretation Comme nts POCT GLU (test code = 4858381351) 373 mg/dL 70-110 H Lab Interpretation (test cod e = 54367-1) Abnormal [facility] Chest pulmonary ahjbcjvwc5169-83-56 22:19:40PROCEDURE: CT CHEST WITH CONTRAST- CHEST PE PROTOCOL CLINICAL INDICATION: Pulmonary embolism (PE) suspected, unknown D-dimer ? Comparison: ?CT chest 05/24/2024 TECHNIQUE: Volumetric helical CT angiogram was performed of the chest (lungapices to bases) with IV contrast. Images were reconstructed includ ing 1.25 and 2.5 mm axial images. Sagittal,coronal MPR images and axial MIP imageswere performed. FINDINGS: Devices: Occluding device in the left atrial appendage. HEART AND GREAT VESSELS: The opacification of the pulmonary vasculature isappropriate. No filling defects are seen through the level ofthe segmentalpulmonary arteries.Subsegmental vessels could not be evaluated due torespiratory motion artifact. The pulmonary trunk is normal in caliber. The thoracic aorta is normal in caliber with ?moderate atheroscleroticcalcifications. Atherosclerotic calcification at the ostium of the leftsubclavian artery resulting in moderate stenosis. There are severecalcifications of the coronary vessels.The heart is normal in size. No pericardial abnormalities are identified.The RV to LV is normal. MEDIASTINUM AND LOWER NECK: No central airway lesions are detected. Theesophagus is within normal limits. The included thyroid gland appearsnormal. LYMPH NODES: Scattered small lymph nodes in both sidesof the mediastinumand hilar regions. No evidence of intrathoracic lymphadenopathy. LUNGS AND PLEURA: Left greater than right lower lobe peribronchialconsolidations and tree-in-bud opacities and nodular consolidations in theright lung, predominantly in the right lower lobe. Findings have overallworsened compared to the exam in May 2024. No focal opacities areidentified. No suspicious nodules. No pleural abnormality detected. VISUALIZED UPPER ABDOMEN: Small hiatal hernia. OSSEOUS STRUCTURES AND SOFT TISSUES: No focal osseous lesions are detected.The soft tissues appear normal. [facility] 1 [id number] 19:13:25XR CHEST 1 VW COMPARISON: 06/24/2024 Ordering provider: ARIC GARCIA CLINICAL INDICATIONS: SOB Portable TECHNIQUE: Appropriate radiographic technique and conforming to ALARA FINDINGS: ? There has been significant partial clearing of the infiltrate in the rightlung base. Persistent probable atelectasis in the left lung base. Otherwisethe chest is unchanged.[facility]2024-06-27 17:09:21* Test Item Value Reference Range Interpretation Comme nts POCT GLU (test code = 4923114993) 286 mg/dL 70-110 H Lab Interpretation (test cod e = 03232-3) [facility]normal [facility]2024-06-27 13:52:50* Test Item Value Reference Range Interpretation Comme nts POCT GLU (test code = 0996055895) 237 mg/dL 70-110 H Lab Interpretation (test cod e = 61452-5) [facility]normal [facility]2024-06-27 02:12:52* Test Item Value Reference Range Interpretation Comme nts POCT GLU (test code = 0119381125) 291 mg/dL 70-110 H Lab Interpretation (test cod e = 16148-8) [facility]normal [facility]2024-06-26 22:19:48* Test Item Value Reference Range Interpretation Comme nts POCT GLU (test code = 0772533110) 319 mg/dL 70-110 H Lab Interpretation (test cod e = 24282-9) Abnormal [facility] GLUCOSE (AUTOMATED)2024-06-26 17:27:22* Test Item Value Reference Range Interpretation Comme nts POCT GLU (test code = 4821408427) 298 mg/dL 70-110 H Lab Interpretation (test cod e = 08373-3) [facility]normal [facility]2024-06-26 13:48:12* Test Item Value Reference Range Interpretation Comme nts POCT GLU (test code = 4802200855) 182 mg/dL 70-110 H Lab Interpretation (test cod e = 19646-6) [facility]normal [facility]2024-06-26 09:55:38* Test Item Value Reference Range Interpretation Comme nts POCT GLU (test code = 5054079592) 263 mg/dL 70-110 H Lab Interpretation (test cod e = 90392-2) [facility]normal [facility]2024-06-26 06:08:11* Test Item Value Reference Range Interpretation Comme nts POCT GLU (test code = 1527509291) 308 mg/dL 70-110 H Lab Interpretation (test cod e = 38661-9) Abnormal [facility] GLUCOSE (AUTOMATED)2024-06-26 03:10:43* Test Item Value Reference Range Interpretation Comme nts POCT GLU (test code = 0021303790) 370 mg/dL 70-110 H Lab Interpretation (test cod e = 52527-5) Abnormal [facility] GLUCOSE (AUTOMATED)2024-06-26 00:15:39* Test Item Value Reference Range Interpretation Comme nts POCT GLU (test code = 0455418255) 379 mg/dL 70-110 H Lab Interpretation (test cod e = 43106-9) Abnormal [facility] GLUCOSE (AUTOMATED)2024-06-25 22:26:08* Test Item Value Reference Range Interpretation Comme nts POCT GLU (test code = 4595097271) 328 mg/dL 70-110 H Lab Interpretation (test cod e = 90263-7) Abnormal [facility]inteC-Reactive Nsojuuw7191-00-21 18:37:38* Test Item Value Reference Range Interpretation Comme nts CRP (test code = 7563813862) 14.2 mg/dL <=0.8 H Lab Interpretation (test cod e = 83290-5) Abnormal [facility] GLUCOSE (AUTOMATED)2024-06-25 13:36:13* Test Item Value Reference Range Interpretation Comme nts POCT GLU (test code = 3540007160) 307 mg/dL 70-110 H Lab Interpretation (test cod e = 41230-4) Abnormal [facility] GLUCOSE (AUTOMATED)2024-06-25 06:32:06* Test Item Value Reference Range Interpretation Comme nts POCT GLU (test code = 0965948982) 287 mg/dL 70-110 H Lab Interpretation (test cod e = 30368-6) Abnormal [facility] GLUCOSE (AUTOMATED)2024-06-25 03:37:07* Test Item Value Reference Range Interpretation Comme nts POCT GLU (test code = 3586576342) 310 mg/dL 70-110 H Lab Interpretation (test cod e = 86308-0) Abnormal [facility] 1 [id number] 22:55:59XR CHEST 1 VW HISTORY: ?Hypoxia COMPARISON: 05/31/2024 Technical quality: adequate TECHNIQUE: 1 view(s) radiographs of the XR CHEST 1 VW FINDINGS: ?Improved left lung base aeration. Increased conspicuity of airspaceopacities over the right infrahilar region. No pneumothorax or pleuraleffusion. No change in the cardiac silhouette or osseous structures.[facility]) 2024-06-24 22:38:10* Test Item Value Reference Range Interpretation Comme [facility] POCT GLU (test code = 3315142752) 272 mg/dL 70-110 H Lab Interpretation (test cod e = 34094-4) Abnormal [facility]inteProcalcitonin2025-02-07 22:30:18* Test Item Value Reference Range Interpretation Comme [facility] Procalcitonin (test code = 6987925743) 0.05 ng/mL <=0.07 LOW (test code = LOW) INTERPRETATION OF PROCALCITONIN RESULTS IN ADULTS >= 18 YEARS OF AGE Initiation and discontinuation of antibiotics on patients with suspected or confirmed Lower Respiratory Tract Infection in Adults >= 18 years of age. + +-------- --------+ + -----+|Procalcitonin |Interpretation ?|Antibiotic ? ? |Considerations ? |ng/mL ? | ?|recommendation | ? + +-------- --------+ + -----+| <0.1 ? | Bacterial ? ? ?| Strongly ? ? ?| ? | ?| infection very | discouraged ? | Overruling: ? | ?| unlikely ? ? ? | ? | ? Clinically unstable ? ? ? + +-------- --------+ + ? High risk for adverse ? ? | <0.25 ?| Bacterial ? ? ?| Discouraged ? | ? outcome ? | ?| infection ? ? ?| ? | ? SEE IMPORTANT NOTE ?| ?| unlikely ? ? ? | ? | ? + +-------- --------+ + -----+| >=0.25 ? ? ? | Bacterial ? ? ?| Encouraged ? ?| ? | ?| infection ? ? ?| ? | ? | ?| likely ? | ? | Consider treatment failure ?+ +------- ---------+ -+ if levels does not decrease | >0.5 ? | Bacterial ? ? ?| Strongly ? ? ?| appropriately ? | ?| infection very | encouraged ? ?| ? | ?| likely ? | ? | ? + +-------- --------+ + -----+ Discontinuation of antibiotics in high-acuity patients with suspected or confirmed sepsis in Adults >= 18 years of age. + +-------- --------+ + -----+|Procalcitonin |Interpretation ?|Antibiotic ? ? |Considerations ? |ng/mL ? | ?|recommendation | ? + +-------- --------+ + -----+| <0.25 ?| Bacterial ? ? ?| Strongly ? ? ?| ? | ?| infection very | discouraged ? | Overruling: ? | ?| unlikely ? ? ? | ? | ? Clinically unstable ? ? ? + +-------- --------+ + ? High risk for adverse ? ? | <0.5 or drop | Bacterial ? ? ?| Discouraged ? | ? outcome ? | >80% from ? ?| infection ? ? ?| ? | ? SEE IMPORTANT NOTE ?| highest PCT ?| unlikely ? ? ? | ? | ? | level ?| ?| ? | ? + +-------- --------+ + -----+| >=0.5 ?| Bacterial ? ? ?| Encouraged ? ?| ? | ?| infection ? ? ?| ? | ? | ?| likely ? | ? | Consider treatment failure ?+ +------- ---------+ -+ if levels does not decrease | >1.0 ? | Bacterial ? ? ?| Strongly ? ? ?| appropriately ? | ?| infection very | encouraged ? ?| ? | ?| likely ? | ? | ? + +-------- --------+ + -----+ Percentage of drop of Procalcitonin calculation for Discontinuation of antibiotics in high-acuity patients with suspected or confirmed sepsis in Adults >= 18 years of age. ? Procalcitonin highest{}-Procalcitonin current{}Delta Procalcitonin = x100% ? Procalcitonin current {} IMPORTANT NOTE: Procalcitonin may be elevated without bacterial infection by physiologic stress related to trauma, dupont, chronic dialysis, metastatic cancer, surgery in the past seven days, malaria, some fungal infections, and some forms of vasculitis. The interpretation algorithm may not apply to patients with immunosuppression (equivalent of >10 mg of prednisone daily), HIV with CD4 cell count < 350 cells/mm3, active malignancy on systemic chemotherapy, solid organ transplant or hematopoietic stem cell transplantation, or hospital acquired pneumonia. Additionally, some clinical trials of procalcitonin have excluded patients with shock requiring vasopressor use, acute respiratory failure requiring mechanical ventilation, or those with known lung abscess/empyema. For further information please refer to:[email or web address] Lab Interpretation (test code = 32022-4) Normal [facility]inte[facility]esium2025-02-07 18:55:31* Test Item Value Reference Range Interpretation Comme nts MAGNESIUM (test code = 0293128336) 1.6 mg/dL 1.7-2.4 L Lab Interpretation (test cod e = 60682-4) [facility]normal [facility] Metabolic Panel (NA, K, CL, CO2, GLUCOSE, BUN, CREATININE, CA)2024-06-24 18:54:51* Test Item Value Reference Range Interpretation Comme nts NA (test code = 4227619147) 133 mmol/L 135-145 L K (test code = 1794912459) 4.5 mmol/L 3.5-5.0 Slight hemolysis CL (test code = 1431915659) 95 mmol/L 98-108 L CO2 TOTAL (test code = 2118510510) 29 mmol/L 23-31 AGAP (test code = 2416294631) 9 2-16 BUN (test code = 1220866482) 18 mg/dL 7-23 Slight hemolysis GLUCOSE (test code = 6900576339) 276 mg/dL 70-110 H CREATININE (test code = 2160-0) 0.46 mg/dL 0.50-1.04 L CALCIUM (test code = 8819147938) 8.8 mg/dL 8.6-10.6 eGFR (test code = 40018-0) 97.5 mL/min/1.73m2 CKD-EPI eGFR (2020). Assuming creatinine has been stable day-to-day for at least three months, the eGFR indicates Category G1 (>= 90 mL/min/1.73 m2) Lab Interpretation (test code = 22025-2) Abnormal [facility] PointeHepatic Function Panel (26228) (ALB,T.PRO,BILI T,BU/BC,ALT,AST,ALK PHOS)2024-06-24 18:54:51* Test Item Value Reference Range Interpretation Comme nts TOTAL BILI (test code = 0315346127) 1.3 mg/dL 0.1-1.1 H BILI UNCON (test code = 4081214996) 0.8 mg/dL 0.1-1.1 BILI CONJ (test code = 2486082685) 0.0 mg/dL 0.0-0.3 T PROTEIN (test code = 4127479045) 7.1 g/dL 6.3-8.2 ALBUMIN (test code = 0999841656) 3.5 g/dL 3.5-5.0 ALK PHOS (test code = 8255112653) 87 U/L 34-122 ALTv (test code = 1742-6) 18 U/L 5-35 AST(SGOT) (test code = 3244032802) 72 U/L 13-40 H Lab Interpretation (test cod e = 97572-1) Abnormal [facility]inteCbc with [id number] 18:27:06* Test Item Value Reference Range Interpretation Comme nts WBC (test code = 6690-2) 15.54 4.30-11.10 H RBC (test code = 789-8) 3.77 3.93-5.25 L HGB (test code = 718-7) 11.5 g/dL 11.6-15.0 L HCT (test code = 4544-3) 34.2 % 35.7-45.2 L MCV (test code = 787-2) 90.7 fL 80.6-95.5 MCH (test code = 785-6) 30.5 pg 25.9-32.8 MCHC (test code = 786-4) 33.6 g/dL 31.6-35.1 RDW-SD (test code = 48285-1) 49.1 fL 39.0-49.9 RDW-CV (test code = 788-0) 14.7 % 12.0-15.5 PLT (test code = 777-3) 439 166-358 H MPV (test code = 65422-3) 9.3 fL 9.5-12.9 L NRBC/100 WBC (test code = 2532608510) 0.0 0.0-10.0 NRBC x10^3 (test code = 0746904576) See_Comment [Automated message] The system which generated this result transmitted reference range: 10*3/?L. The reference range was not used to interpret this result as normal/abnormal. GRAN MAT (NEUT) % (test code = 770-8) 94.3 % IMM GRAN % (test code = 4267076854) 0.70 % LYMPH % (test code = 736-9) 3.7 % MONO % (test code = 5905-5) 1.2 % EOS % (test code = 713-8) 0.0 % BASO % (test code = 706-2) 0.1 % GRAN MAT x10^3(ANC) (test code = 5509928776) 14.66 10*3/uL 1.88-7.09 H IMM GRAN x10^3 (test code = 2675136156) 0.11 10*3/uL 0.00-0.06 H LYMPH x10^3 (test code = 731-0) 0.57 10*3/uL 1.32-3.29 L MONO x10^3 (test code = 742-7) 0.18 10*3/uL 0.33-0.92 L EOS x10^3 (test code = 711-2) 0.03-0.39 L BASO x10^3 (test code = 704-7) 0.01-0.07 Lab Interpretation (test code = 27457-5) Abnormal [facility] GLUCOSE (AUTOMATED)2024-06-24 18:18:03* Test Item Value Reference Range Interpretation Comme nts POCT GLU (test code = 6705047117) 299 mg/dL 70-110 H Lab Interpretation (test cod e = 42572-8) Abnormal [facility] Arterial Blood Gas.2024-06-24 18:14:17* Test Item Value Reference Range Interpretation Comme nts PH (test code = 2) 7.45 7.35-7.45 PCO2 (test code = 4353413409) 40 35-45 PO2 (test code = 9402493571) 67 80-100 L HCO3 (test code = 7940093991) 28 22-26 H BE (test code = 9995036549) 3.3 -3.0-3.0 H Lab Interpretation (test cod e = 28667-8) [facility]normal [facility]inteLaar[facility] Acid Whole [id number] 18:13:31* Test Item Value Reference Range Interpretation Comme nts LACTIC ACID (test code = 1622283610) 1.45 mmol/L 0.50-2.20 Lab Interpretation (test cod e = 68514-2) Normal [facility] GLUCOSE (AUTOMATED)2024-06-08 22:20:13* Test Item Value Reference Range Interpretation Comme nts POCT GLU (test code = 5919001839) 221 mg/dL 70-110 H Lab Interpretation (test cod e = 74414-1) Abnormal [facility] [facility] (AUTOMATED)2024-06-08 17:28:43* Test Item Value Reference Range Interpretation Comme nts POCT GLU (test code = 5893714552) 209 mg/dL 70-110 H Lab Interpretation (test cod e = 93104-4) Abnormal [facility] GLUCOSE (AUTOMATED)2024-06-08 13:20:07* Test Item Value Reference Range Interpretation Comme nts POCT GLU (test code = 5980974674) 127 mg/dL 70-110 H Lab Interpretation (test cod e = 02892-5) Abnormal [facility] GLUCOSE (AUTOMATED)2024-06-08 02:01:38* Test Item Value Reference Range Interpretation Comme nts POCT GLU (test code = 6592453018) 192 mg/dL 70-110 H Lab Interpretation (test cod e = 44617-3) Abnormal [facility] GLUCOSE (AUTOMATED)2024-06-07 22:20:38* Test Item Value Reference Range Interpretation Comme nts POCT GLU (test code = 5307311592) 191 mg/dL 70-110 H Lab Interpretation (test cod e = 50457-5) [facility] 17:26:11* Test Item Value Reference Range Interpretation Comme nts POCT GLU (test code = 0057844233) 326 mg/dL 70-110 H Lab Interpretation (test cod e = 65380-8) Abnormal [facility] GLUCOSE (AUTOMATED)2024-06-07 13:33:11* Test Item Value Reference Range Interpretation Comme nts POCT GLU (test code = 4520792464) 139 mg/dL 70-110 H Lab Interpretation (test cod e = 90493-0) Abnormal [facility] GLUCOSE (AUTOMATED)2024-06-07 02:10:39* Test Item Value Reference Range Interpretation Comme nts POCT GLU (test code = 0575598789) 210 mg/dL 70-110 H Lab Interpretation (test cod e = 01084-6) Abnormal [facility] GLUCOSE (AUTOMATED)2024-06-06 22:23:04* Test Item Value Reference Range Interpretation Comme nts POCT GLU (test code = 2667573782) 207 mg/dL 70-110 H Lab Interpretation (test cod e = 43764-0) Abnormal [facility] GLUCOSE (AUTOMATED)2024-06-06 17:52:03* Test Item Value Reference Range Interpretation Comme nts POCT GLU (test code = 5376633931) 239 mg/dL 70-110 H Lab Interpretation (test cod e = 03144-6) Abnormal [facility] GLUCOSE (AUTOMATED)2024-06-06 14:02:02* Test Item Value Reference Range Interpretation Comme nts POCT GLU (test code = 1657944975) 177 mg/dL 70-110 H Lab Interpretation (test cod e = 67217-4) Abnormal [facility] GLUCOSE (AUTOMATED)2024-06-06 03:51:01* Test Item Value Reference Range Interpretation Comme nts POCT GLU (test code = 5297559054) 209 mg/dL 70-110 H Lab Interpretation (test cod e = 03600-4) Abnormal [facility] GLUCOSE (AUTOMATED)2024-06-05 22:25:01* Test Item Value Reference Range Interpretation Comme [facility] POCT GLU (test code = 6444842305) 299 mg/dL 70-110 H Lab Interpretation (test cod e = 94623-7) Abnormal [facility] GLUCOSE (AUTOMATED)2024-06-05 17:44:31* Test Item Value Reference Range Interpretation Comme [facility] POCT GLU (test code = 1229687587) 231 mg/dL 70-110 H Lab Interpretation (test cod e = 06802-8) Abnormal [facility] GLUCOSE (AUTOMATED)2024-06-05 13:37:34* Test Item Value Reference Range Interpretation Comme [facility] POCT GLU (test code = 4008602022) 70 mg/dL 70-110 Lab Interpretation (test cod e = 33746-5) Normal [facility] Metabolic Panel (NA, K, CL, CO2, GLUCOSE, BUN, CREATININE, CA)2024-06-05 10:49:29* Test Item Value Reference Range Interpretation Comme [facility] NA (test code = 4739385464) 134 mmol/L 135-145 L K (test code = 1255784518) 4.0 mmol/L 3.5-5.0 CL (test code = 4612910720) 101 mmol/L 98-108 CO2 TOTAL (test code = 4702049762) 33 mmol/L 23-31 H AGAP (test code = 1825547492) 2-16 L BUN (test code = 3732795035) 23 mg/dL 7-23 GLUCOSE (test code = 0993037669) 92 mg/dL 70-110 CREATININE (test code = 2160-0) 0.73 mg/dL 0.50-1.04 CALCIUM (test code = 8493876735) 8.9 mg/dL 8.6-10.6 eGFR (test code = 18700-3) 83.8 mL/min/1.73m2 CKD-EPI eGFR (2020). Assuming creatinine has been stable day-to-day for at least three months, the eGFR indicates Category G2 (60 - 89 mL/min/1.73 m2) Lab Interpretation (test code = 19754-3) [facility] 10:41:34* Test Item Value Reference Range Interpretation Comme nts MAGNESIUM (test code = 4289927384) 1.8 mg/dL 1.7-2.4 Lab Interpretation (test cod e = 10486-3) Normal [facility]2025-01-19 10:41:14* Test Item Value Reference Range Interpretation Comme nts PHOSPHORUS (test code = 5535494504) 3.6 mg/dL 2.5-5.0 Lab Interpretation (test cod e = 47243-7) Normal [facility]inteCbc without [id number] 10:14:33* Test Item Value Reference Range Interpretation [...] 777-3) 233 166-358 MPV (test code = 66142-0) 9.6 fL 9.5-12.9 RDW-CV (test code = 788-0) 13.3 % 12.0-15.5 RDW-SD (test code = 90148-8) 45.1 fL 39.0-49.9 NRBC x10^3 (test code = 0520057007) See_Comment [Automated messa ge] The system which generated this result transmitted reference range: 10*3/?L. The reference range was not used to interpret this result as normal/abnormal. NRBC/100 WBC (test code = 7277068634) 0.0 0.0-10.0 IPF % (test code = 8936570070) Lab Interpretation (test code = 70761-7) Abnormal [facility] GLUCOSE (AUTOMATED)2024-06-05 02:11:27* Test Item Value Reference Range Interpretation Comme nts POCT GLU (test code = 9787183681) 269 mg/dL 70-110 H Lab Interpretation (test cod e = 25285-3) Abnormal [facility] GLUCOSE (AUTOMATED)2024-06-04 22:24:58* Test Item Value Reference Range Interpretation Comme nts POCT GLU (test code = 5958956391) 254 mg/dL 70-110 H Lab Interpretation (test cod e = 29610-3) Abnormal [facility] GLUCOSE (AUTOMATED)2024-06-04 17:27:59* Test Item Value Reference Range Interpretation Comme nts POCT GLU (test code = 4525028898) 217 mg/dL 70-110 H Lab Interpretation (test cod e = 06116-7) Abnormal [facility] GLUCOSE (AUTOMATED)2024-06-04 13:40:27* Test Item Value Reference Range Interpretation Comme nts POCT GLU (test code = 6465522586) 101 mg/dL 70-110 Lab Interpretation (test cod e = 11905-8) Normal [facility] GLUCOSE (AUTOMATED)2024-06-04 11:19:57* Test Item Value Reference Range Interpretation Comme nts POCT GLU (test code = 0804870265) 107 mg/dL 70-110 Lab Interpretation (test cod e = 35064-0) [facility]2025-01-18 10:11:11* Test Item Value Reference Range Interpretation Comme nts MAGNESIUM (test code = 5798909285) 1.9 mg/dL 1.7-2.4 Lab Interpretation (test cod e = 02971-9) [facility] (NA, K, CL, CO2, GLUCOSE, BUN, CREATININE, CA)2024-06-04 10:10:51* Test Item Value Reference Range Interpretation Comme nts NA (test code = 8570710644) 133 mmol/L 135-145 L K (test code = 7758712998) 3.8 mmol/L 3.5-5.0 CL (test code = 7948802669) 101 mmol/L 98-108 CO2 TOTAL (test code = 7597784491) 31 mmol/L 23-31 AGAP (test code = 0148307338) 1 2-16 L BUN (test code = 5720017482) 27 mg/dL 7-23 H GLUCOSE (test code = 8108641109) 55 mg/dL 70-110 L CREATININE (test code = 2160-0) 0.59 mg/dL 0.50-1.04 CALCIUM (test code = 3241289761) 8.9 mg/dL 8.6-10.6 eGFR (test code = 70145-7) 91.8 mL/min/1.73m2 CKD-EPI eGFR (2020). Assuming creatinine has been stable day-to-day for at least three months, the eGFR indicates Category G1 (>= 90 mL/min/1.73 m2) Lab Interpretation (test code = 07356-5) [facility]normal [facility]2025-01-18 10:10:51* Test Item Value Reference Range Interpretation Comme nts PHOSPHORUS (test code = 3984391311) 4.1 mg/dL 2.5-5.0 Lab Interpretation (test cod e = 07036-4) Normal [facility]inte[facility]bc without [id number] 09:55:09* Test Item Value Reference Range Interpretation [...] 777-3) 248 166-358 MPV (test code = 22405-5) 9.6 fL 9.5-12.9 RDW-CV (test code = 788-0) 13.3 % 12.0-15.5 RDW-SD (test code = 48414-0) 45.4 fL 39.0-49.9 NRBC x10^3 (test code = 9318334377) See_Comment [Automated messa ge] The system which generated this result transmitted reference range: 10*3/?L. The reference range was not used to interpret this result as normal/abnormal. NRBC/100 WBC (test code = 5739089843) 0.0 0.0-10.0 IPF % (test code = 4448626004) Lab Interpretation (test code = 02373-8) Abnormal [facility] GLUCOSE (AUTOMATED)2024-06-04 01:59:56* Test Item Value Reference Range Interpretation Comme nts POCT GLU (test code = 1348971646) 256 mg/dL 70-110 H Lab Interpretation (test cod e = 83543-8) Abnormal [facility] GLUCOSE (AUTOMATED)2024-06-03 22:22:22* Test Item Value Reference Range Interpretation Comme nts POCT GLU (test code = 0047907300) 223 mg/dL 70-110 H Lab Interpretation (test cod e = 93074-0) Abnormal [facility] GLUCOSE (AUTOMATED)2024-06-03 17:31:53* Test Item Value Reference Range Interpretation Comme nts POCT GLU (test code = 6097238211) 224 mg/dL 70-110 H Lab Interpretation (test cod e = 66955-1) Abnormal [facility] GLUCOSE (AUTOMATED)2024-06-03 13:38:53* Test Item Value Reference Range Interpretation Comme nts POCT GLU (test code = 2896702590) 121 mg/dL 70-110 H Lab Interpretation (test cod e = 70217-2) Abnormal [facility] GLUCOSE (AUTOMATED)2024-06-03 02:14:18* Test Item Value Reference Range Interpretation Comme nts POCT GLU (test code = 9042240246) 275 mg/dL 70-110 H Lab Interpretation (test cod e = 92694-9) Abnormal [facility] GLUCOSE (AUTOMATED)2024-06-02 22:20:21* Test Item Value Reference Range Interpretation Comme nts POCT GLU (test code = 6485274384) 311 mg/dL 70-110 H Lab Interpretation (test cod e = 15811-2) Abnormal [facility] GLUCOSE (AUTOMATED)2024-06-02 17:26:20* Test Item Value Reference Range Interpretation Comme nts POCT GLU (test code = 2771467240) 207 mg/dL 70-110 H Lab Interpretation (test cod e = 52074-4) Abnormal [facility] GLUCOSE (AUTOMATED)2024-06-02 13:42:53* Test Item Value Reference Range Interpretation Comme nts POCT GLU (test code = 4788234315) 121 mg/dL 70-110 H Lab Interpretation (test cod e = 82905-4) Abnormal [facility] GLUCOSE (AUTOMATED)2024-06-02 02:30:21* Test Item Value Reference Range Interpretation Comme nts POCT GLU (test code = 2974626556) 265 mg/dL 70-110 H Lab Interpretation (test cod e = 61327-2) Abnormal [facility] GLUCOSE (AUTOMATED)2024-06-01 22:40:16* Test Item Value Reference Range Interpretation Comme nts POCT GLU (test code = 7710770587) 299 mg/dL 70-110 H Lab Interpretation (test cod e = 75673-6) Abnormal [facility] GLUCOSE (AUTOMATED)2024-06-01 17:33:17* Test Item Value Reference Range Interpretation Comme nts POCT GLU (test code = 6969121263) 260 mg/dL 70-110 H Lab Interpretation (test cod e = 25067-3) Abnormal [facility] GLUCOSE (AUTOMATED)2024-06-01 14:14:19* Test Item Value Reference Range Interpretation Comme nts POCT GLU (test code = 3265170300) 118 mg/dL 70-110 H Lab Interpretation (test cod e = 71074-9) Abnormal [facility] GLUCOSE (AUTOMATED)2024-06-01 13:41:47* Test Item Value Reference Range Interpretation Comme nts POCT GLU (test code = 9231286553) 125 mg/dL 70-110 H Lab Interpretation (test cod e = 10628-5) Abnormal [facility] GLUCOSE (AUTOMATED)2024-06-01 07:21:20* Test Item Value Reference Range Interpretation Comme nts POCT GLU (test code = 5483203911) 180 mg/dL 70-110 H Lab Interpretation (test cod e = 07122-6) Abnormal [facility] GLUCOSE (AUTOMATED)2024-06-01 01:33:50* Test Item Value Reference Range Interpretation Comme nts POCT GLU (test code = 3568234414) 362 mg/dL 70-110 H Lab Interpretation (test cod e = 29640-5) Abnormal [facility] GLUCOSE (AUTOMATED)2024-05-31 22:31:50* Test Item Value Reference Range Interpretation Comme nts POCT GLU (test code = 3146365999) 343 mg/dL 70-110 H Lab Interpretation (test cod e = 49151-9) Abnormal [facility] GLUCOSE (AUTOMATED)2024-05-31 13:44:16* Test Item Value Reference Range Interpretation Comme nts POCT GLU (test code = 6204716717) 106 mg/dL 70-110 Lab Interpretation (test cod e = 85403-5) Normal [facility] with [id number] 13:19:47* Test Item Value Reference Range Interpretation Comme nts WBC (test code = 6690-2) 16.09 4.30-11.10 H RBC (test code = 789-8) 4.14 3.93-5.25 HGB (test code = 718-7) 12.9 g/dL 11.6-15.0 HCT (test code = 4544-3) 38.8 % 35.7-45.2 MCV (test code = 787-2) 93.7 fL 80.6-95.5 MCH (test code = 785-6) 31.2 pg 25.9-32.8 MCHC (test code = 786-4) 33.2 g/dL 31.6-35.1 RDW-SD (test code = 76413-8) 44.6 fL 39.0-49.9 RDW-CV (test code = 788-0) 13.0 % 12.0-15.5 PLT (test code = 777-3) 272 166-358 MPV (test code = 83371-5) 9.6 fL 9.5-12.9 NRBC/100 WBC (test code = 0904094375) 0.0 0.0-10.0 NRBC x10^3 (test code = 0454622740) See_Comment [Automated message] The system which generated this result transmitted reference range: 10*3/?L. The reference range was not used to interpret this result as normal/abnormal. SEG % (test code = 13781-3) 66 % 33-76 LYMPH % (test code = 91975-8) 25 % 14-54 REACT LYMPH % (test code = 0380794775) 3 % MONO % (test code = 33812-7) 3 % 0-4 EOS % (test code = 10024-3) 3 % 0-3 ANC (test code = 753-4) 10.62 10*3/uL 1.88-7.09 H PLT ESTIMATE (test code = 9317-9) Normal Normal Lab Interpretation (test code = 44939-0) [facility] 1 [id number] 11:30:50ORDERING PHYSICIAN: CADENCE ROMAN CLINICAL HISTORY: Shortness of breath TECHNIQUE: Frontal view ofchest COMPARISON: 05/29/2024 FINDINGS: The cardiac silhouette is mildly enlarged, stable. ?There is mild worseningof left lower lobe atelectasis versus infiltrate with small left-sidedpleural effusion. The right lung is clear. There is no pneumothorax. Osseous structures are normal.[facility] Met[facility] (NA, K, CL, CO2, GLUCOSE, BUN, CREATININE, CA)2024-05-31 11:00:01* Test Item Value Reference Range Interpretation Comme nts NA (test code = 0329776117) 134 mmol/L 135-145 L K (test code = 6389178897) 4.4 mmol/L 3.5-5.0 CL (test code = 6070833842) 99 mmol/L 98-108 CO2 TOTAL (test code = 2690910589) 35 mmol/L 23-31 H AGAP (test code = 7536695397) 2-16 L BUN (test code = 4206635003) 33 mg/dL 7-23 H GLUCOSE (test code = 6159409948) 120 mg/dL 70-110 H CREATININE (test code = 2160-0) 0.66 mg/dL 0.50-1.04 CALCIUM (test code = 3440794077) 9.2 mg/dL 8.6-10.6 eGFR (test code = 12198-3) 89.4 mL/min/1.73m2 Lab Interpretation (test cod e = 68567-2) [facility] 10:58:30* Test Item Value Reference Range Interpretation Comme nts MAGNESIUM (test code = 5108105929) 1.7 mg/dL 1.7-2.4 Lab Interpretation (test cod e = 86294-9) Normal [facility] GLUCOSE (AUTOMATED)2024-05-31 02:37:15* Test Item Value Reference Range Interpretation Comme nts POCT GLU (test code = 6290796804) 231 mg/dL 70-110 H Lab Interpretation (test cod e = 36741-1) Abnormal [facility] GLUCOSE (AUTOMATED)2024-05-30 22:56:09* Test Item Value Reference Range Interpretation Comme nts POCT GLU (test code = 9924047556) 269 mg/dL 70-110 H Lab Interpretation (test cod e = 84171-8) Abnormal [facility] GLUCOSE (AUTOMATED)2024-05-30 21:50:13* Test Item Value Reference Range Interpretation Comme nts POCT GLU (test code = 8453216687) 292 mg/dL 70-110 H Lab Interpretation (test cod e = 40453-0) Abnormal [facility] GLUCOSE (AUTOMATED)2024-05-30 17:42:15* Test Item Value Reference Range Interpretation Comme nts POCT GLU (test code = 7592260180) 305 mg/dL 70-110 H Lab Interpretation (test cod e = 35078-0) Abnormal [facility] GLUCOSE (AUTOMATED)2024-05-30 13:53:09* Test Item Value Reference Range Interpretation Comme nts POCT GLU (test code = 6587680443) 83 mg/dL 70-110 Lab Interpretation (test cod e = 06697-0) Normal [facility] with [id number] 13:26:27* Test Item Value Reference Range Interpretation [...] 33.0 g/dL 31.6-35.1 RDW-SD (test code = 65398-4) 45.1 fL 39.0-49.9 RDW-CV (test code = 788-0) 13.2 % 12.0-15.5 PLT (test code = 777-3) 308 166-358 MPV (test code = 38707-4) 9.8 fL 9.5-12.9 NRBC/100 WBC (test code = 8383190669) 0.0 0.0-10.0 NRBC x10^3 (test code = 2453713275) See_Comment [Automated message] The system which generated this result transmitted reference range: 10*3/?L. The reference range was not used to interpret this result as normal/abnormal. GRAN MAT (NEUT) % (test code = 770-8) 72.5 % IMM GRAN % (test code = 0795653813) 5.90 % LYMPH % (test code = 736-9) 14.8 % MONO % (test code = 5905-5) 6.1 % EOS % (test code = 713-8) 0.1 % BASO % (test code = 706-2) 0.6 % GRAN MAT x10^3(ANC) (test code = 8571055327) 12.31 10*3/uL 1.88-7.09 H IMM GRAN x10^3 (test code = 0333289785) 1.00 10*3/uL 0.00-0.06 H LYMPH x10^3 (test code = 731-0) 2.51 10*3/uL 1.32-3.29 MONO x10^3 (test code = 742-7) 1.04 10*3/uL 0.33-0.92 H EOS x10^3 (test code = 711-2) 0.03-0.39 L BASO x10^3 (test code = 704-7) 0.11 10*3/uL 0.01-0.07 H Lab Interpretation (test code = 59991-7) Abnormal [facility]inte[facility]-Terminal Nhz-[id number] 09:33:48* Test Item Value Reference Range Interpretation Comme nts NT-proBNP (test code = 04958-0) 405 pg/mL <=125 LOW (test code = LOW) Result Indeterminate-Consid er causes of NT-proBNP elevation other than Heart failure such as acute coronary syndrome, pulmonary embolism, pulmonary hypertension, sepsis, stroke, and renal dysfunction. Lab Interpretation (test code = 15363-1) [facility]normal [facility]inte[facility]esium2025-01-13 09:26:07* Test Item Value Reference Range Interpretation Comme nts MAGNESIUM (test code = 5107127686) 1.8 mg/dL 1.7-2.4 Lab Interpretation (test cod e = 49767-4) Normal [facility]inteComp. Metabolic Panel (49105)2024-05-30 09:25:47* Test Item Value Reference Range Interpretation Comme nts NA (test code = 6822654471) 133 mmol/L 135-145 L K (test code = 8782514944) 4.8 mmol/L 3.5-5.0 CL (test code = 6023458017) 93 mmol/L 98-108 L CO2 TOTAL (test code = 3193394040) 36 mmol/L 23-31 H AGAP (test code = 8981829444) 4 2-16 BUN (test code = 3169409912) 35 mg/dL 7-23 H GLUCOSE (test code = 2424589275) 147 mg/dL 70-110 H CREATININE (test code = 2160-0) 0.72 mg/dL 0.50-1.04 TOTAL BILI (test code = 1136321742) 0.7 mg/dL 0.1-1.1 CALCIUM (test code = 1250893841) 9.3 mg/dL 8.6-10.6 T PROTEIN (test code = 5290715670) 6.4 g/dL 6.3-8.2 ALBUMIN (test code = 0821460726) 3.3 g/dL 3.5-5.0 L ALK PHOS (test code = 2810491448) 53 U/L 34-122 ALTv (test code = 1742-6) 25 U/L 5-35 AST(SGOT) (test code = 2715654078) 35 U/L 13-40 eGFR (test code = 13252-2) 85.2 mL/min/1.73m2 CKD-EPI eGFR (2020). Assuming creatinine has been stable day-to-day for at least three months, the eGFR indicates Category G2 (60 - 89 mL/min/1.73 m2) Lab Interpretation (test code = 09743-6) Abnormal [facility] GLUCOSE (AUTOMATED)2024-05-30 01:46:09* Test Item Value Reference Range Interpretation Comme nts POCT GLU (test code = 7153902792) 297 mg/dL 70-110 H Lab Interpretation (test cod e = 91836-4) Abnormal [facility] GLUCOSE (AUTOMATED)2024-05-29 22:25:11* Test Item Value Reference Range Interpretation Comme nts POCT GLU (test code = 9839095531) 227 mg/dL 70-110 H Lab Interpretation (test cod e = 48657-9) Abnormal [facility] GLUCOSE (AUTOMATED)2024-05-29 17:21:12* Test Item Value Reference Range Interpretation Comme nts POCT GLU (test code = 1490799555) 280 mg/dL 70-110 H Lab Interpretation (test cod e = 20904-0) Abnormal [facility] GLUCOSE (AUTOMATED)2024-05-29 13:50:08* Test Item Value Reference Range Interpretation Comme nts POCT GLU (test code = 7190708923) 148 mg/dL 70-110 H Lab Interpretation (test cod e = 38897-7) [facility]normal [facility] Chest 1 pi2011-75-11 12:53:53ORDERING PHYSICIAN: CADENCE ROMAN CLINICAL HISTORY: Shortness of breath TECHNIQUE: Frontal view ofchest COMPARISON: 05/24/2024 moderately enlarged FINDINGS: The cardiac silhouette is mildly enlarged,stable. Mild central vascularcongestion is identified, similar compared to prior exam. Mild worsening ofleft lower lobe patchy atelectasis versus infiltrate. There is no pneumothorax. There are no eff usions.. ? Osseous structures are normal.[facility] GLUCOSE (AUTOMATED)2024-05-29 02:29:09* Test Item Value Reference Range Interpretation Comme nts POCT GLU (test code = 1283777793) 267 mg/dL 70-110 H Lab Interpretation (test cod e = 14101-6) Abnormal [facility] GLUCOSE (AUTOMATED)2024-05-29 00:36:11* Test Item Value Reference Range Interpretation Comme nts POCT GLU (test code = 8570901547) 349 mg/dL 70-110 H Lab Interpretation (test cod e = 57618-9) Abnormal [facility] GLUCOSE (AUTOMATED)2024-05-28 23:02:40* Test Item Value Reference Range Interpretation Comme nts POCT GLU (test code = 4668879688) 319 mg/dL 70-110 H Lab Interpretation (test cod e = 36898-2) Abnormal [facility] GLUCOSE (AUTOMATED)2024-05-28 21:14:06* Test Item Value Reference Range Interpretation Comme nts POCT GLU (test code = 5554556401) 328 mg/dL 70-110 H Lab Interpretation (test cod e = 70375-2) Abnormal [facility] PointeSputum Ksemzwe7161-29-24 20:00:38* Test Item Value Reference Range Interpretation Comme nts SPUTUM CULTURE (test code = 622-1) 1+ Respiratory rico: Commensal upper respiratory microorganisms only. Gram stain (test code = 664-3) Occasional (Rare) Epithelial cells LOW (test code = LOW) Bacterial pathogens associated with lower respiratory infections were not identified, which include Pseudomonas aeruginosa and Staphylococcus aureus (MRSA or MSSA). [facility] GLUCOSE (AUTOMATED)2024-05-28 17:31:38* Test Item Value Reference Range Interpretation Comme nts POCT GLU (test code = 7614949221) 347 mg/dL 70-110 H Lab Interpretation (test cod e = 55163-1) Abnormal [facility] GLUCOSE (AUTOMATED)2024-05-28 13:35:38* Test Item Value Reference Range Interpretation Comme nts POCT GLU (test code = 6630965582) 154 mg/dL 70-110 H Lab Interpretation (test cod e = 09446-6) Abnormal [facility] (NA, K, CL, CO2, GLUCOSE, BUN, CREATININE, CA)2024-05-28 12:36:22* Test Item Value Reference Range Interpretation Comme nts NA (test code = 3167613387) 134 mmol/L 135-145 L K (test code = 2152571223) 4.6 mmol/L 3.5-5.0 CL (test code = 3701637680) 99 mmol/L 98-108 CO2 TOTAL (test code = 8482000405) 34 mmol/L 23-31 H AGAP (test code = 9478321321) 1 2-16 L BUN (test code = 4620607032) 35 mg/dL 7-23 H GLUCOSE (test code = 1364226650) 190 mg/dL 70-110 H CREATININE (test code = 2160-0) 0.78 mg/dL 0.50-1.04 CALCIUM (test code = 8358270036) 9.0 mg/dL 8.6-10.6 eGFR (test code = 94971-6) 77.4 mL/min/1.73m2 CKD-EPI eGFR (2020). Assuming creatinine has been stable day-to-day for at least three months, the eGFR indicates Category G2 (60 - 89 mL/min/1.73 m2) Lab Interpretation (test code = 05813-4) Abnormal [facility] with Dszq2486-16-11 10:39:29* Test Item Value Reference Range Interpretation Comme [facility] WBC (test code = 6690-2) 14.00 4.30-11.10 H RBC (test code = 789-8) 4.16 3.93-5.25 HGB (test code = 718-7) 12.8 g/dL 11.6-15.0 HCT (test code = 4544-3) 39.0 % 35.7-45.2 MCV (test code = 787-2) 93.8 fL 80.6-95.5 MCH (test code = 785-6) 30.8 pg 25.9-32.8 MCHC (test code = 786-4) 32.8 g/dL 31.6-35.1 RDW-SD (test code = 73276-2) 44.7 fL 39.0-49.9 RDW-CV (test code = 788-0) 13.0 % 12.0-15.5 PLT (test code = 777-3) 282 166-358 MPV (test code = 48933-2) 9.7 fL 9.5-12.9 NRBC/100 WBC (test code = 9965314671) 0.0 0.0-10.0 NRBC x10^3 (test code = 5898785278) See_Comment [Automated messa ge] The system which generated this result transmitted reference range: 10*3/?L. The reference range was not used to interpret this result as normal/abnormal. GRAN MAT (NEUT) % (test code = 770-8) 68.0 % IMM GRAN % (test code = 0673379114) 5.70 % LYMPH % (test code = 736-9) 18.3 % MONO % (test code = 5905-5) 7.3 % EOS % (test code = 713-8) 0.1 % BASO % (test code = 706-2) 0.6 % GRAN MAT x10^3(ANC) (test code = 8745184562) 9.51 10*3/uL 1.88-7.09 H IMM GRAN x10^3 (test code = 5797216013) 0.80 10*3/uL 0.00-0.06 H LYMPH x10^3 (test code = 731-0) 2.56 10*3/uL 1.32-3.29 MONO x10^3 (test code = 742-7) 1.02 10*3/uL 0.33-0.92 H EOS x10^3 (test code = 711-2) 0.03-0.39 L BASO x10^3 (test code = 704-7) 0.09 10*3/uL 0.01-0.07 H Lab Interpretation (test code = 45897-0) Abnormal [facility] GLUCOSE (AUTOMATED)2024-05-28 02:25:00* Test Item Value Reference Range Interpretation Comme nts POCT GLU (test code = 7423380487) 300 mg/dL 70-110 H Lab Interpretation (test cod e = 94611-6) Abnormal [facility] GLUCOSE (AUTOMATED)2024-05-27 21:33:01* Test Item Value Reference Range Interpretation Comme nts POCT GLU (test code = 4985092630) 371 mg/dL 70-110 H Lab Interpretation (test cod e = 38825-8) Abnormal [facility] GLUCOSE (AUTOMATED)2024-05-27 17:54:01* Test Item Value Reference Range Interpretation Comme nts POCT GLU (test code = 2259465810) 385 mg/dL 70-110 H Lab Interpretation (test cod e = 56999-8) Abnormal [facility] GLUCOSE (AUTOMATED)2024-05-27 14:08:02* Test Item Value Reference Range Interpretation Comme nts POCT GLU (test code = 5944183449) 247 mg/dL 70-110 H Lab Interpretation (test cod e = 55137-1) Abnormal [facility] GLUCOSE (AUTOMATED)2024-05-27 02:10:30* Test Item Value Reference Range Interpretation Comme nts POCT GLU (test code = 3367830256) 293 mg/dL 70-110 H Lab Interpretation (test cod e = 74856-6) Abnormal [facility] GLUCOSE (AUTOMATED)2024-05-26 22:41:02* Test Item Value Reference Range Interpretation Comme nts POCT GLU (test code = 2762931738) 357 mg/dL 70-110 H Lab Interpretation (test cod e = 90906-9) Abnormal [facility] GLUCOSE (AUTOMATED)2024-05-26 21:17:34* Test Item Value Reference Range Interpretation Comme nts POCT GLU (test code = 4315799926) 415 mg/dL 70-110 H Lab Interpretation (test cod e = 74743-3) Abnormal [facility] GLUCOSE (AUTOMATED)2024-05-26 17:43:58* Test Item Value Reference Range Interpretation Comme nts POCT GLU (test code = 7566185998) 379 mg/dL 70-110 H Lab Interpretation (test cod e = 72006-8) Abnormal [facility] GLUCOSE (AUTOMATED)2024-05-26 13:39:25* Test Item Value Reference Range Interpretation Comme nts POCT GLU (test code = 7749989069) 225 mg/dL 70-110 H Lab Interpretation (test cod e = 54640-9) Abnormal [facility] GLUCOSE (AUTOMATED)2024-05-26 06:09:28* Test Item Value Reference Range Interpretation Comme nts POCT GLU (test code = 0984388004) 235 mg/dL 70-110 H Lab Interpretation (test cod e = 33742-8) Abnormal [facility] GLUCOSE (AUTOMATED)2024-05-26 02:52:30* Test Item Value Reference Range Interpretation Comme nts POCT GLU (test code = 0297566130) 333 mg/dL 70-110 H Lab Interpretation (test cod e = 22535-7) Abnormal [facility] GLUCOSE (AUTOMATED)2024-05-25 22:32:56* Test Item Value Reference Range Interpretation Comme nts POCT GLU (test code = 2372702993) 346 mg/dL 70-110 H Lab Interpretation (test cod e = 86735-1) Abnormal [facility] GLUCOSE (AUTOMATED)2024-05-25 17:21:54* Test Item Value Reference Range Interpretation Comme nts POCT GLU (test code = 0198571831) 328 mg/dL 70-110 H Lab Interpretation (test cod e = 55143-9) Abnormal [facility] GLUCOSE (AUTOMATED)2024-05-25 13:31:53* Test Item Value Reference Range Interpretation Comme nts POCT GLU (test code = 5646127393) 191 mg/dL 70-110 H Lab Interpretation (test cod e = 29227-7) Abnormal [facility] Thorax wo [id number] 04:28:23 EXAMINATION: CT THORAX WO CONTRAST ORDERING [...] exam. There isstraightening of the normal thoracic kyphosis.[facility] 1 [id number] 02:25:54Exam: Chest (1 View), 05/24/2024 7:00 PM. Ordering Physician: JEWEL SEXTON. History: Pneumonia. Technique: AP view of the chest. Technical Quality: Adequate. Comparison: Chest radiograph 10/23/2023. Findings: Stable cardiomegaly and thoracic aorta. Mild calcified atheroscleroticplaque in the descending thoracic aorta. ?No airspace consolidation,pleural effusion, or pneumothorax. No acute osseous abnormality. Unchanged mild dextroconvex curvature of theupper thoracic spine.[facility]inteTROPONIN [id number] 02:13:20* Test Item Value Reference Range Interpretation Comme nts TROPONIN I (test code = 5172909051) 0.017 ng/mL <=0.034 LOW (test code = [...] of biotin. Lab Interpretation (test code = 92492-4) Normal [facility]inteN-TERMINAL [id number] 02:10:39* Test Item Value Reference Range Interpretation Comme [facility] NT-proBNP (test code = 04043-4) 864 pg/mL <=125 LOW (test code = LOW) Result Indeterminate-Consid er causes of NT-proBNP elevation other than Heart failure such as acute coronary syndrome, pulmonary embolism, pulmonary hypertension, sepsis, stroke, and renal dysfunction. Lab Interpretation (test code = 22264-9) Abnormal [facility] METABOLIC PANEL (30771)2024-05-25 02:01:34* Test Item Value Reference Range Interpretation Comme nts NA (test code = 4884493875) 140 mmol/L 135-145 K (test code = 2406230603) 3.9 mmol/L 3.5-5.0 CL (test code = 7576610089) 103 mmol/L 98-108 CO2 TOTAL (test code = 7558899421) 28 mmol/L 23-31 AGAP (test code = 9432384088) 9 2-16 BUN (test code = 1665440619) 22 mg/dL 7-23 GLUCOSE (test code = 1394445238) 221 mg/dL 70-110 H CREATININE (test code = 2160-0) 0.73 mg/dL 0.50-1.04 TOTAL BILI (test code = 4640863377) 1.4 mg/dL 0.1-1.1 H CALCIUM (test code = 4128750923) 9.7 mg/dL 8.6-10.6 T PROTEIN (test code = 3619870609) 7.2 g/dL 6.3-8.2 ALBUMIN (test code = 8928698428) 3.9 g/dL 3.5-5.0 ALK PHOS (test code = 4884133653) 96 U/L 34-122 ALTv (test code = 1742-6) 39 U/L 5-35 H AST(SGOT) (test code = 1404026492) 73 U/L 13-40 H eGFR (test code = 51765-4) 83.8 mL/min/1.73m2 CKD-EPI eGFR (2020). Assuming creatinine has been stable day-to-day for at least three months, the eGFR indicates Category G2 (60 - 89 mL/min/1.73 m2) Lab Interpretation (test code = 19416-3) Abnormal [facility]inte[facility] Head wo [id number] 01:54:55EXAM: CT HEAD WO CONTRAST HISTORY: Mental [...] The calvarium and central skull base are unremarkable.[facility] WITH [id number] 01:52:33* Test Item Value Reference Range Interpretation [...] 32.5 g/dL 31.6-35.1 RDW-SD (test code = 26259-7) 48.1 fL 39.0-49.9 RDW-CV (test code = 788-0) 13.4 % 12.0-15.5 PLT (test code = 777-3) 288 166-358 MPV (test code = 85619-9) 9.8 fL 9.5-12.9 NRBC/100 WBC (test code = 6628389784) 0.0 0.0-10.0 NRBC x10^3 (test code = 6725793140) See_Comment [Automated messa ge] The system which generated this result transmitted reference range: 10*3/?L. The reference range was not used to interpret this result as normal/abnormal. GRAN MAT (NEUT) % (test code = 770-8) 73.2 % IMM GRAN % (test code = 5627501939) 0.30 % LYMPH % (test code = 736-9) 14.0 % MONO % (test code = 5905-5) 11.8 % EOS % (test code = 713-8) 0.3 % BASO % (test code = 706-2) 0.4 % GRAN MAT x10^3(ANC) (test code = 5984941647) 9.06 10*3/uL 1.88-7.09 H IMM GRAN x10^3 (test code = 9563406223) 0.04 10*3/uL 0.00-0.06 LYMPH x10^3 (test code = 731-0) 1.74 10*3/uL 1.32-3.29 MONO x10^3 (test code = 742-7) 1.46 10*3/uL 0.33-0.92 H EOS x10^3 (test code = 711-2) 0.04 10*3/uL 0.03-0.39 BASO x10^3 (test code = 704-7) 0.05 10*3/uL 0.01-0.07 Lab Interpretation (test code = 04212-2) Abnormal [facility]inteElectrophysiology [id number] 13:01:20 Watchman Device ImplantationProcedure: Left Atrial Appendage Occlusion via a Watchman device Indication: Paroxysmal Atrial Fibrillation with a [id number]-[id number] score >3 and intolerant to anticoagulation due to GI Bleeding. Technique: After obtaining informed consent the patient was prepped and draped in the usual sterile fashion. Monitored anesthesia care was initiated under anesthesia team guidance (see [employer] records). A transesophageal echocardiogram was performed. The [...] left atrial appendageNote: This was a single emulsification operator procedure. Michael Bethea, MDCardiac Electrophysiology [facility] PointeIntraoperative TED (guidance)2024-03-10 23:56:25* Test Item Value Reference Range Interpretation Comme nts Height (test code = 0905585662) 63 in Weight (test code = 8287258531) 184 lbs Systolic BP (test code = 3769335238) 153 mmHg Diastolic BP (test code = 7692845325) 69 mmHg Heart Rate (test code = 8823048923) 69 bpm BSA (test code = 1435258747) 1.87 m2 Radiology Study observation (narrative) (test code = 40617-6) LOW (test code = LOW) Table formatting [...] ?Intra-op TED for Watchman Flx 24 placement. [facility] BSA (Calculated - sq m) BP [...] captured. The probe was inserted by the edge plugger. There was no probe insertion difficulty.There were 1 attempts to insert the probe. Probe in 08:54 am. Probe out 09:26 am. Sedation and monitoring provided by anesthesia, see Epic documentation. There were no complications during the procedure. Based on abnormal findings of 2D echocardiogram, 3D was performed on an acquisition scanner for further assessment of the left atrium. [facility] PROCEDURE [id number] 14:44:24Ordered by an unspecified provider.[facility]inteType and Screen - ONCE [id number] 13:12:00* Test Item Value Reference Range Interpretation Comme [facility] ABO & RH (test code = 20) A POSITIVE IAT (test code = 1185) Negative [facility]inteType and Screen - ONCE [id number] 13:12:00* Test Item Value Reference Range Interpretation Comme nts ABO & RH (test code = 20) A POSITIVE IAT (test code = 1185) Negative [facility] GLUCOSE (AUTOMATED)2023-12-30 21:32:22* Test Item Value Reference Range Interpretation Comme [facility] POCT GLU (test code = 9138817590) 194 mg/dL 70-110 H Lab Interpretation (test cod e = 79384-7) Abnormal [facility] GLUCOSE (AUTOMATED)2023-12-30 20:51:25* Test Item Value Reference Range Interpretation Comme nts POCT GLU (test code = 2189113256) 297 mg/dL 70-110 H Lab Interpretation (test cod e = 27246-9) Abnormal [facility] GLUCOSE (AUTOMATED)2023-12-30 19:53:56* Test Item Value Reference Range Interpretation Comme nts POCT GLU (test code = 3414373189) 387 mg/dL 70-110 H Lab Interpretation (test cod e = 21143-7) Abnormal [facility] GLUCOSE (AUTOMATED)2023-12-30 19:05:54* Test Item Value Reference Range Interpretation Comme nts POCT GLU (test code = 1495983899) 536 mg/dL 70-110 HH Lab Interpretation (test cod e = 37640-7) Abnormal [facility]. METABOLIC PANEL (87514)2023-12-30 18:42:41* Test Item Value Reference Range Interpretation Comme nts NA (test code = 3122215293) 132 mmol/L 135-145 L K (test code = 1194768507) 4.1 mmol/L 3.5-5.0 CL (test code = 4129741437) 92 mmol/L 98-108 L CO2 TOTAL (test code = 3508070460) 30 mmol/L 23-31 AGAP (test code = 6391640470) 10 2-16 BUN (test code = 7216796029) 23 mg/dL 7-23 GLUCOSE (test code = 5689212946) 544 mg/dL 70-110 HH CREATININE (test code = 2160-0) 0.78 mg/dL 0.50-1.04 TOTAL BILI (test code = 6286585380) 1.2 mg/dL 0.1-1.1 H CALCIUM (test code = 3471238872) 9.3 mg/dL 8.6-10.6 T PROTEIN (test code = 5102524089) 7.5 g/dL 6.3-8.2 ALBUMIN (test code = 6338136944) 4.1 g/dL 3.5-5.0 ALK PHOS (test code = 9507798376) 73 U/L 34-122 ALTv (test code = 1742-6) 17 U/L 5-35 AST(SGOT) (test code = 1973030047) 38 U/L 13-40 eGFR (test code = 34147-4) 77.9 mL/min/1.73m2 CKD-EPI eGFR (2020). Assuming creatinine has been stable day-to-day for at least three months, the eGFR indicates Category G2 (60 - 89 mL/min/1.73 m2) Lab Interpretation (test code = 76872-5) Abnormal [facility] WITH [id number] 18:18:31* Test Item Value Reference Range Interpretation [...] 33.3 g/dL 31.6-35.1 RDW-SD (test code = 71830-7) 47.3 fL 39.0-49.9 RDW-CV (test code = 788-0) 13.5 % 12.0-15.5 PLT (test code = 777-3) 251 166-358 MPV (test code = 48795-8) 10.5 fL 9.5-12.9 NRBC/100 WBC (test code = 4515633351) 0.0 0.0-10.0 NRBC x10^3 (test code = 8594922044) See_Comment [Automated me ssage] The system which generated this result transmitted reference range: 10*3/?L. The reference range was not used to interpret this result as normal/abnormal. GRAN MAT (NEUT) % (test code = 770-8) 70.6 % IMM GRAN % (test code = 6234182526) 0.40 % LYMPH % (test code = 736-9) 20.4 % MONO % (test code = 5905-5) 6.5 % EOS % (test code = 713-8) 1.7 % BASO % (test code = 706-2) 0.4 % GRAN MAT x10^3(ANC) (test code = 0980517233) 5.45 10*3/uL 1.88-7.09 IMM GRAN x10^3 (test code = 5342891442) 0.03 10*3/uL 0.00-0.06 LYMPH x10^3 (test code = 731-0) 1.57 10*3/uL 1.32-3.29 MONO x10^3 (test code = 742-7) 0.50 10*3/uL 0.33-0.92 EOS x10^3 (test code = 711-2) 0.13 10*3/uL 0.03-0.39 BASO x10^3 (test code = 704-7) 0.03 10*3/uL 0.01-0.07 [facility] Panel 21 + Lactic [id number] 17:52:11* Test Item Value Reference Range Interpretation Comme nts PH (test code = 0781224510) 7.42 7.32-7.42 PCO2 CARROL (test code = 1855615148) 43 41-51 PO2 CARROL (test code = 6746098595) 33 25-40 HCO3 CARROL (test code = 7057771148) 27 24-28 AC VBE(BEAKER) (test code = 9377265344) 2.2 mEq/L THB CARROL (test code = 5177141805) 14.9 g/dL 12.0-16.0 %O2HB CARROL (test code = 8506518124) 66.9 % 52.0-63.0 H %COHB CARROL (test code = 7474305957) 0.7 % 0.0-1.5 %METHB CARROL (test code = 7086089274) 0.0 % 0.4-1.5 L VOL%O2 CARROL (test code = 3398039066) 14.0 % 6.0-12.0 H NA (test code = 4734946980) 128 mmol/L 135-145 L K+ (test code = 8741898924) 4.0 mmol/L 3.5-5.0 AC CA IONZ (test code = 4976843116) 4.90 mg/dL 4.50-5.30 GLUCOSE (test code = 4088993813) 541 mg/dL 70-110 HH LACTIC ACID (test code = 1238162378) 1.49 mmol/L 0.50-2.20 Lab Interpretation (test cod e = 96014-9) Abnormal [facility] [id number] 16:44:00Jewel Sexton MD ? ? 12/30/2023 ?4:50 PMCritical Care Performed by: Jewel Sexton MDAuthitzelzedby: Jewel Sexton MD ?Critical care provider statement: [...] separately billable procedures and treating other patients. [facility] GLUCOSE (AUTOMATED)2023-10-26 21:33:56* Test Item Value Reference Range Interpretation Comme nts POCT GLU (test code = 0919175796) 237 mg/dL 70-110 H Lab Interpretation (test cod e = 85499-7) Abnormal [facility] GLUCOSE (AUTOMATED)2023-10-26 16:50:55* Test Item Value Reference Range Interpretation Comme nts POCT GLU (test code = 1743266788) 275 mg/dL 70-110 H Lab Interpretation (test cod e = 40327-3) Abnormal [facility] GLUCOSE (AUTOMATED)2023-10-26 12:45:21* Test Item Value Reference Range Interpretation Comme nts POCT GLU (test code = 3326253776) 140 mg/dL 70-110 H Lab Interpretation (test cod e = 82010-7) Abnormal [facility] GLUCOSE (AUTOMATED)2023-10-26 01:03:15* Test Item Value Reference Range Interpretation Comme nts POCT GLU (test code = 7213521436) 167 mg/dL 70-110 H Lab Interpretation (test cod e = 03715-9) Abnormal [facility] GLUCOSE (AUTOMATED)2023-10-25 21:28:18* Test Item Value Reference Range Interpretation Comme nts POCT GLU (test code = 1360518362) 214 mg/dL 70-110 H Lab Interpretation (test cod e = 03404-3) Abnormal [facility] GLUCOSE (AUTOMATED)2023-10-25 16:53:45* Test Item Value Reference Range Interpretation Comme nts POCT GLU (test code = 1131736414) 286 mg/dL 70-110 H Lab Interpretation (test cod e = 81271-8) Abnormal [facility] GLUCOSE (AUTOMATED)2023-10-25 12:52:34* Test Item Value Reference Range Interpretation Comme nts POCT GLU (test code = 9161615163) 215 mg/dL 70-110 H Lab Interpretation (test cod e = 93956-0) Abnormal [facility] GLUCOSE (AUTOMATED)2023-10-25 04:46:32* Test Item Value Reference Range Interpretation Comme nts POCT GLU (test code = 4622968772) 246 mg/dL 70-110 H Lab Interpretation (test cod e = 16695-9) Abnormal [facility] GLUCOSE (AUTOMATED)2023-10-25 01:43:40* Test Item Value Reference Range Interpretation Comme nts POCT GLU (test code = 2279706168) 311 mg/dL 70-110 H Lab Interpretation (test cod e = 37077-9) Abnormal [facility] GLUCOSE (AUTOMATED)2023-10-24 21:22:00* Test Item Value Reference Range Interpretation Comme nts POCT GLU (test code = 5370829175) 260 mg/dL 70-110 H Lab Interpretation (test cod e = 76737-0) [facility] 16:37:57* Test Item Value Reference Range Interpretation Comme nts POCT GLU (test code = 8271037578) 233 mg/dL 70-110 H Lab Interpretation (test cod e = 97392-1) Abnormal [facility] GLUCOSE (AUTOMATED)2023-10-24 12:40:52* Test Item Value Reference Range Interpretation Comme nts POCT GLU (test code = 3475567125) 240 mg/dL 70-110 H Lab Interpretation (test cod e = 63856-0) Abnormal [facility] GLUCOSE (AUTOMATED)2023-10-24 05:29:09* Test Item Value Reference Range Interpretation Comme nts POCT GLU (test code = 4424868617) 360 mg/dL 70-110 H Lab Interpretation (test cod e = 14758-2) [facility]23-[facility]-24 01:58:14* Test Item Value Reference Range Interpretation Comme nts POCT GLU (test code = 5857326199) 367 mg/dL 70-110 H Lab Interpretation (test cod e = 28458-9) [facility]2023-10-23 21:27:33* Test Item Value Reference Range Interpretation Comme nts POCT GLU (test code = 4457385769) 349 mg/dL 70-110 H Lab Interpretation (test cod e = 64009-3) Abnormal [facility] GLUCOSE (AUTOMATED)2023-10-23 18:02:56* Test Item Value Reference Range Interpretation Comme nts POCT GLU (test code = 7219836362) 477 mg/dL 70-110 HH Lab Interpretation (test cod e = 11733-2) Abnormal [facility] GLUCOSE (AUTOMATED)2023-10-23 16:43:25* Test Item Value Reference Range Interpretation Comme nts POCT GLU (test code = 9762590028) 428 mg/dL 70-110 H Lab Interpretation (test cod e = 73617-9) [facility] [id number] 13:25:40EXAM: XR CHEST 1 VW HISTORY: 78 [...] osseous lesions or acute osseous findings are detected.[facility] GLUCOSE (AUTOMATED)2023-10-23 12:42:59* Test Item Value Reference Range Interpretation Comme [facility] POCT GLU (test code = 3640811269) 222 mg/dL 70-110 H Lab Interpretation (test cod e = 23379-5) Abnormal [facility] GLUCOSE (AUTOMATED)2023-10-23 01:10:38* Test Item Value Reference Range Interpretation Comme [facility] POCT GLU (test code = 3735363047) 291 mg/dL 70-110 H Lab Interpretation (test cod e = 61032-9) [facility]normal [facility] Protocol - Transthoracic echo (TTE) 2023-10-22 21:50:27* Test Item Value Reference Range Interpretation Comme [facility] Height (test code = 6151115254) 63 in Weight (test code = 4012377797) 189 lbs Systolic BP (test code = 5398978135) 156 mmHg Diastolic BP (test code = 0769947465) 69 mmHg Heart Rate (test code = 5578743095) 90 bpm BSA (test code = 1640747109) 1.89 m2 Ao root diam (test code = 7777371936) 3.40 cm Aortic root (test code = 2882695602) 3.4 cm Ao root annulus (test code = 7113487538) 3.4 cm EF(Teich) (test code = 9284345692) 52.30 % LVIDD (test code = 5368837082) 4.30 cm Left Ventricular End Diastolic Volume by Teichholz Method (test code = 3606347) 81.3 mL FS (test code = 4391760660) 27 % EF - 2D (test code = 26631228) 52.30 % LVPWD (test code = 3953159203) 1.30 cm PW (test code = 4055563223) 1.30 cm 0.6-1.1 MV Peak E Rohini (test code = 4943371534) 75.3 cm/s MV Peak A Rohini (test code = 4503846610) 134.7 cm/s E/A ratio (test code = 1328833280) 0.56 ratio E wave decelartion time (test code = 8934114155) 0.21 s MV stenosis pressure 1/2 time (test code = 7373420019) 64.2 ms MV E/e' septal (test code = 3721439171) 5.0 cm/s Tapse (test code = 2251615326) 2.21 cm LVOT peak rohini (test code = 3601137583) 105.3 cm/s LVOT mn grad (test code = 4683879288) 2.7 mmHg AV LVOT peak gradient (test code = 1515940012) 4.4 mmHg LVOT peak VTI (test code = 8973550444) 21.5 cm LV V1 mean (test code = 8155649044) 78.30 cm/s Aortic valve mean velocity (test code = 1707941654) 163.6 cm/s Ao peak rohini (test code = 0766520179) 210.5 cm/s Ao VTI (test code = 7357773485) 42.8 cm Ao max PG (test code = 5281725585) 17.70 mm[Hg] AV peak gradient (test code = 3706760419) 17.7 mmHg AV mean gradient (test code = 4290926643) 11.5 mmHg AI max rohini (test code = 6256883459) 367.00 cm/s AI max PG (test code = 1554745776) 53.90 mm[Hg] IVS (test code = 3037807979) 1.31 cm Interventricular Septum Diastolic Thickness by 2D (test code = 0492312) 1.31 cm LVIDS (test code = 8167117370) 3.10 cm Left Ventricular End Systolic Volume by Teichholz Method (test code = 0149841) 38.8 mL LVOT stroke volume (test code = 3093666253) 66.50 cm3 LVOT diameter (test code = 6797547890) 1.98 cm LVOT area (test code = 8127442038) 3.10 cm2 AV area by cont VTI (test code = 6096673430) 1.6 cm2 AV area peak rohini (test code = 1289573588) 1.6 cm2 AV valve area (test code = 6831354737) 1.55 cm2 LA size (test code = 4980786634) 4.2 cm TR Peak Rohini (test code = 6742848262) 317.4 cm/s Triscuspid Valve Regurgitation Peak Gradient (test code = 2454342401) 40.3 mmHg LAV(MOD-sp4) (test code = 9542282213) 53.00 mL MV Prop V (test code = 6572873198) 52.70 cm/s AV regurgitation pressure 1/2 time (test code = 4304479098) 642.2 ms AI dec slope (test code = 3550723217) 167.40 cm/s2 Radiology Study observation (narrative) (test code = 11091-7) LOW (test code = LOW) ?Left?Ventricle: Left [...] and spectral Doppler. Saline contrast was performed. [facility]23-[facility]-22 21:28:36* Test Item Value Reference Range Interpretation Comme [facility] POCT GLU (test code = 4866249274) 217 mg/dL 70-110 H Lab Interpretation (test cod e = 76426-1) [facility]normal [facility] BRAIN WO [id number] 19:30:26EXAM: MR BRAIN WO CONTRAST HISTORY: Neuro [...] whitematter T2/FLAIRhyperintensities, nonspecific, likely representing microvascular ischemicchanges. [id number] void of intracranial vessels is unremarkable. Retention cyst is noted in the right sphenoid sinus. No abnormal signal inthe remainder of paranasal sinuses or mastoid air cells. [facility] GLUCOSE (AUTOMATED)2023-10-22 16:41:55* Test Item Value Reference Range Interpretation Comme nts POCT GLU (test code = [id number]) 268 mg/dL 70-110 H Lab Interpretation (test cod e = 92191-4) [facility] 1 [id number] 13:38:42EXAM: XR CHEST 1 VW HISTORY: 78 years-old Female; Provided indication: altered mental status . TECHNIQUE: Single frontal view of the chest. COMPARISON: Radiograph dated 2023 FINDINGS: The lungsare well-expanded. No new consolidation or pleural abnormality isvisualized. Improved interstitial edema trace residual or chronicinterstitial changes/scarring. The cardiomediastinal silhouette is normal in size accounting fortechnique. No focal osseous lesions or acute osseous findings are detected.[facility] HEAD WO CONTRAST 2023-10-22 13:33:51EXAM: CT HEAD [...] likely representsequelae of microvascular ischemic disease. The bain-white matterdifferentiation is preserved. There is partial opacification of the right sphenoid sinus. The mastoid aircells and paranasal air sinuses are otherwise clear. The calvarium andcentral skull base are unremarkable.[facility] GLUCOSE (AUTOMATED)2023-10-22 12:29:57* Test Item Value Reference Range Interpretation Comme nts POCT GLU (test code = 6056058450) 202 mg/dL 70-110 H Lab Interpretation (test cod e = 90068-0) [facility]normal [facility] Pointe[facility]asting Lipd Panel (73926)(TOTAL CHOLESTEROL, TRIGLYCERIDES, HDL)2023-10-22 11:49:04* Test Item Value Reference Range Interpretation Comme nts CHOL (test code = 9442808694) 201 mg/dL 120-200 H HDL (test code = 5105895150) 33 mg/dL >=50 L HDLC RATIO (test code = 3958634365) 6.1 <=4.5 H TRIG (test code = 1605092196) 189 mg/dL 30-170 H LDL CHOL (test code = 79673-4) 130 mg/dL <=160 VLDL (test code = 0671770220) 38 mg/dL 5-60 Lab Interpretation (test cod e = 21355-2) Abnormal [facility] PointeGlycosyated Hemoglobin (A1C)2023-10-22 09:26:35* Test Item Value Reference Range Interpretation Comme nts HGB A1C (test code = 4548-4) 10.5 % 4.0-5.7 H LOW (test code = LOW) Reference RangesNormal: <5.7%Prediabetes: 5.7 - 6.4%Diabetes: > 6.5% Lab Interpretation (test code = 72102-2) [facility]normal [facility]POCT GLUCOSE (AUTOMATED)2023-10-22 07:28:58* Test Item Value Reference Range Interpretation Comme nts POCT GLU (test code = 7025597418) 205 mg/dL 70-110 H Lab Interpretation (test cod e = 41658-8) [facility]normal [facility] PointeTroponin [id number] 04:19:58* Test Item Value Reference Range Interpretation Comme nts TROPONIN I (test code = 0316241202) 0.003 ng/mL <=0.034 LOW (test code = [...] of biotin. Lab Interpretation (test code = 28150-1) Normal [facility] PointeCK (Creatine Kinase) + [id number] 04:16:54* Test Item Value Reference Range Interpretation Comme nts CK (test code = 9299070467) 54 U/L 33-194 CK-MB (test code = 3100466631) 0.47 ng/mL <=3.50 CKMB INDEX (test code = 7576298929) 0.9 % 0.0-2.5 LOW (test code = LOW) Biotin has been reported to cause a negative bias, interpret results relative to patient's use of biotin. Lab Interpretation (test code = 20595-9) [facility]22 04:09:37* Test Item Value Reference Range Interpretation Comme nts NA (test code = 3804275405) 137 mmol/L 135-145 K (test code = 9606156776) 4.0 mmol/L 3.5-5.0 CL (test code = 5723490619) 100 mmol/L 98-108 CO2 TOTAL (test code = 5410349462) 26 mmol/L 23-31 AGAP (test code = 2257863959) 11 2-16 BUN (test code = 8772976919) 22 mg/dL 7-23 GLUCOSE (test code = 7554729521) 240 mg/dL 70-110 H CREATININE (test code = 2160-0) 0.89 mg/dL 0.50-1.04 TOTAL BILI (test code = 0539806942) 1.0 mg/dL 0.1-1.1 CALCIUM (test code = 2895663306) 10.1 mg/dL 8.6-10.6 T PROTEIN (test code = 2118045185) 7.7 g/dL 6.3-8.2 ALBUMIN (test code = 6460943002) 4.4 g/dL 3.5-5.0 ALK PHOS (test code = 9740925451) 63 U/L 34-122 ALTv (test code = 1742-6) 21 U/L 5-35 AST(SGOT) (test code = 2917500087) 27 U/L 13-40 eGFR (test code = 19002-7) 66.5 mL/min/1.73m2 CKD-EPI eGFR (2020). Assuming creatinine has been stable day-to-day for at least three months, the eGFR indicates Category G2 (60 - 89 mL/min/1.73 m2) Lab Interpretation (test code = 86997-4) [facility]normal [facility]inteLipase2024-06-06 04:09:17* Test Item Value Reference Range Interpretation Comme nts LIPASE (test code = 3464306503) 50 U/L 0-220 Lab Interpretation (test cod e = 88405-0) Normal [facility] PointeCb with [id number] 03:54:52* Test Item Value Reference Range Interpretation [...] 33.1 g/dL 31.6-35.1 RDW-SD (test code = 38888-8) 49.7 fL 39.0-49.9 RDW-CV (test code = 788-0) 14.3 % 12.0-15.5 PLT (test code = 777-3) 275 166-358 MPV (test code = 87647-5) 9.9 fL 9.5-12.9 NRBC/100 WBC (test code = 4368970851) 0.0 0.0-10.0 NRBC x10^3 (test code = 5666276880) See_Comment [Automated me ssage] The system which generated this result transmitted reference range: 10*3/?L. The reference range was not used to interpret this result as normal/abnormal. GRAN MAT (NEUT) % (test code = 770-8) 67.0 % IMM GRAN % (test code = 9868910887) 0.40 % LYMPH % (test code = 736-9) 22.3 % MONO % (test code = 5905-5) 8.5 % EOS % (test code = 713-8) 1.2 % BASO % (test code = 706-2) 0.6 % GRAN MAT x10^3(ANC) (test code = 1464283321) 5.59 10*3/uL 1.88-7.09 IMM GRAN x10^3 (test code = 3986103504) 0.03 10*3/uL 0.00-0.06 LYMPH x10^3 (test code = 731-0) 1.86 10*3/uL 1.32-3.29 MONO x10^3 (test code = 742-7) 0.71 10*3/uL 0.33-0.92 EOS x10^3 (test code = 711-2) 0.10 10*3/uL 0.03-0.39 BASO x10^3 (test code = 704-7) 0.05 10*3/uL 0.01-0.07 [facility]inteREFERRAL- REQUEST/[id number] 16:07:55 Ordered by an unspecified provider.[facility] PointeCT ABDOMEN PELVIS W [id number] 03:31:36ORDERING PHYSICIAN: YESSICA HODGES HISTORY: Epigastric pain TECHNIQUE: CT abdomen and pelvis with intravenous contrast. Thisexamination was performed according to ALARA principles. COMPARISON: 02/03/20. FINDINGS:Visualized lower chest: Within normal limits. Hepatobiliary: [...] withinnormal limits. No lymphadenopathy. Bones: No acute abnormality.[facility]inteCom. Metabolic Panel (19295)2023-07-10 01:47:51* Test Item Value Reference Range Interpretation Comme nts NA (test code = 2858843173) 137 mmol/L 135-145 K (test code = 6613623754) 3.5 mmol/L 3.5-5.0 CL (test code = 3474962727) 100 mmol/L 98-108 CO2 TOTAL (test code = 8700387100) 29 mmol/L 23-31 AGAP (test code = 0374906321) 8 2-16 BUN (test code = 2598510451) 20 mg/dL 7-23 GLUCOSE (test code = 7866588687) 167 mg/dL 70-110 H CREATININE (test code = 2160-0) 0.86 mg/dL 0.50-1.04 TOTAL BILI (test code = 4313891782) 0.8 mg/dL 0.1-1.1 CALCIUM (test code = 8766797364) 9.9 mg/dL 8.6-10.6 T PROTEIN (test code = 5553404464) 7.6 g/dL 6.3-8.2 ALBUMIN (test code = 6507500268) 4.3 g/dL 3.5-5.0 ALK PHOS (test code = 9028040099) 55 U/L 34-122 ALTv (test code = 1742-6) 20 U/L 5-35 AST(SGOT) (test code = 1244586267) 29 U/L 13-40 eGFR (test code = 31490-5) 69.2 mL/min/1.73m2 CKD-EPI eGFR (2020). Assuming creatinine has been stable day-to-day for at least three months, the eGFR indicates Category G2 (60 - 89 mL/min/1.73 m2) Lab Interpretation (test code = 16723-8) [facility]normal [facility] PointeLipase2024-02-23 01:47:09* Test Item Value Reference Range Interpretation Comme nts LIPASE (test code = 6183513621) 67 U/L 0-220 Lab Interpretation (test cod e = 33904-3) Normal [facility] PointeCbc with [id number] 01:44:05* Test Item Value Reference Range Interpretation [...] 32.6 g/dL 31.6-35.1 RDW-SD (test code = 20388-4) 53.8 fL 39.0-49.9 H RDW-CV (test code = 788-0) 16.4 % 12.0-15.5 H PLT (test code = 777-3) 246 166-358 MPV (test code = 31835-7) 9.8 fL 9.5-12.9 NRBC/100 WBC (test code = 0101973629) 0.0 0.0-10.0 NRBC x10^3 (test code = 6064212943) See_Comment [Automated messa ge] The system which generated this result transmitted reference range: 10*3/?L. The reference range was not used to interpret this result as normal/abnormal. GRAN MAT (NEUT) % (test code = 770-8) 64.7 % IMM GRAN % (test code = 2664656637) 0.40 % LYMPH % (test code = 736-9) 23.5 % MONO % (test code = 5905-5) 9.4 % EOS % (test code = 713-8) 1.4 % BASO % (test code = 706-2) 0.6 % GRAN MAT x10^3(ANC) (test code = 1205202801) 5.42 10*3/uL 1.88-7.09 IMM GRAN x10^3 (test code = 7224682596) 0.03 10*3/uL 0.00-0.06 LYMPH x10^3 (test code = 731-0) 1.97 10*3/uL 1.32-3.29 MONO x10^3 (test code = 742-7) 0.79 10*3/uL 0.33-0.92 EOS x10^3 (test code = 711-2) 0.12 10*3/uL 0.03-0.39 BASO x10^3 (test code = 704-7) 0.05 10*3/uL 0.01-0.07 Lab Interpretation (test code = 75091-5) [facility]normal [facility] PointeTROPONIN [id number] 22:02:22* Test Item Value Reference Range Interpretation Comme nts TROPONIN I (test code = 8992515871) 0.019 ng/mL <=0.034 LOW (test code = [...] of biotin. Lab Interpretation (test code = 27620-5) Normal [facility] PointeN-TERMINAL [id number] 21:59:59* Test Item Value Reference Range Interpretation Comme nts NT-proBNP (test code = 22088-9) 7650 pg/mL <=125 H LOW (test code = LOW) Positive: Heart Failure Likely Lab Interpretation (test code = 71851-8) Abnormal [facility] PointeCOMP. METABOLIC PANEL (64122)2023 21:50:36* Test Item Value Reference Range Interpretation Comme nts NA (test code = 7843910880) 141 mmol/L 135-145 K (test code = 3892291508) 4.1 mmol/L 3.5-5.0 CL (test code = 0957059617) 104 mmol/L 98-108 CO2 TOTAL (test code = 8141402995) 25 mmol/L 23-31 AGAP (test code = 1160143223) 12 2-16 BUN (test code = 3483732875) 8 mg/dL 7-23 GLUCOSE (test code = 4652058797) 108 mg/dL 70-110 CREATININE (test code = 7556492601) 0.57 mg/dL 0.50-1.04 TOTAL BILI (test code = 9337316027) 0.7 mg/dL 0.1-1.1 CALCIUM (test code = 9636803066) 9.8 mg/dL 8.6-10.6 T PROTEIN (test code = 4685514492) 6.9 g/dL 6.3-8.2 ALBUMIN (test code = 7818116072) 4.0 g/dL 3.5-5.0 ALK PHOS (test code = 2473478014) 60 U/L 34-122 ALTv (test code = 1742-6) 13 U/L 5-35 AST(SGOT) (test code = 6007726889) 48 U/L 13-40 H eGFR (test code = 56970-6) 93.2 mL/min/1.73m2 CKD-EPI eGFR (2020). Assuming creatinine has been stable day-to-day for at least three months, the eGFR indicates Category G1 (>= 90 mL/min/1.73 m2) Lab Interpretation (test code = 98748-7) [facility]normal [facility]inteMAGNESIUM2023-11-15 21:50:36* Test Item Value Reference Range Interpretation Comme nts MAGNESIUM (test code = 4119157962) 1.6 mg/dL 1.7-2.4 L Lab Interpretation (test cod e = 27213-4) Abnormal [facility] PointeCB WITH [id number] 21:13:29* Test Item Value Reference Range Interpretation Comme nts WBC (test code = 6690-2) 8.42 See_Comment [Automated messa ge] The system which generated this result transmitted reference range: 4.30 - 11.10 10*3/?L. The reference range was not used to interpret this result as normal/abnormal. RBC (test code = 789-8) 4.22 See_Comment [Automated messa ge] The system which [...] g/dL 31.6-35.1 L RDW-SD (test code = 14495-9) 65.1 fL 39.0-49.9 H RDW-CV (test code = 788-0) 19.9 % 12.0-15.5 H PLT (test code = 777-3) 279 See_Comment [Automated messa ge] The system which generated this result transmitted reference range: 166 - 358 10*3/?L. The reference range was not used to interpret this result as normal/abnormal. MPV (test code = 18339-0) 9.5 fL 9.5-12.9 NRBC/100 WBC (test code = 9280839333) 0.0 See_Comment [Automated [employer] ssage] The system which generated this result transmitted reference range: 0.0 - 10.0 /100 WBCs. The reference range was not used to interpret this result as normal/abnormal. NRBC x10^3 (test code = 1452022006) See_Comment [Automated messa ge] The system which generated this result transmitted reference range: 10*3/?L. The reference range was not used to interpret this result as normal/abnormal. GRAN MAT (NEUT) % (test code = 770-8) 62.6 % IMM GRAN % (test code = 6422231831) 0.40 % LYMPH % (test code = 736-9) 22.0 % MONO % (test code = 5905-5) 11.0 % EOS % (test code = 713-8) 3.6 % BASO % (test code = 706-2) 0.4 % GRAN MAT x10^3(ANC) (test code = 9131415715) 5.28 10*3/uL 1.88-7.09 IMM GRAN x10^3 (test code = 7359833042) 0.03 10*3/uL 0.00-0.06 LYMPH x10^3 (test code = 731-0) 1.85 10*3/uL 1.32-3.29 MONO x10^3 (test code = 742-7) 0.93 10*3/uL 0.33-0.92 H EOS x10^3 (test code = 711-2) 0.30 10*3/uL 0.03-0.39 BASO x10^3 (test code = 704-7) 0.03 10*3/uL 0.01-0.07 Lab Interpretation (test code = 13909-5) Abnormal [facility] GLUCOSE (AUTOMATED)2023-02-18 17:16:18* Test Item Value Reference Range Interpretation Comme nts POCT GLU (test code = 1921296068) 193 mg/dL 70-110 H Notified Provide r Lab Interpretation (test code = 51031-9) Abnormal [facility] GLUCOSE (AUTOMATED)2023-02-18 13:15:11* Test Item Value Reference Range Interpretation Comme nts POCT GLU (test code = 0449408457) 194 mg/dL 70-110 H Notified Provide r Lab Interpretation (test code = 11802-6) Abnormal [facility] GLUCOSE (AUTOMATED)2023-02-18 02:26:46* Test Item Value Reference Range Interpretation Comme nts POCT GLU (test code = 0547607304) 185 mg/dL 70-110 H Lab Interpretation (test cod e = 02360-0) Abnormal [facility] GLUCOSE (AUTOMATED)2023-02-17 21:59:48* Test Item Value Reference Range Interpretation Comme nts POCT GLU (test code = 0959909138) 169 mg/dL 70-110 H Lab Interpretation (test cod e = 50698-6) Abnormal [facility] GLUCOSE (AUTOMATED)2023-02-17 16:52:41* Test Item Value Reference Range Interpretation Comme nts POCT GLU (test code = 1182232427) 193 mg/dL 70-110 H Lab Interpretation (test cod e = 94632-4) Abnormal [facility] GLUCOSE (AUTOMATED)2023-02-17 12:46:14* Test Item Value Reference Range Interpretation Comme nts POCT GLU (test code = 4981753472) 184 mg/dL 70-110 H Lab Interpretation (test cod e = 32490-7) Abnormal [facility] GLUCOSE (AUTOMATED)2023-02-17 02:03:56* Test Item Value Reference Range Interpretation Comme nts POCT GLU (test code = 3097033118) 207 mg/dL 70-110 H Lab Interpretation (test cod e = 14171-3) Abnormal [facility] GLUCOSE (AUTOMATED)2023-02-16 22:06:44* Test Item Value Reference Range Interpretation Comme nts POCT GLU (test code = 6410268770) 189 mg/dL 70-110 H Lab Interpretation (test cod e = 93070-4) Abnormal [facility] GLUCOSE (AUTOMATED)2023-02-16 16:33:39* Test Item Value Reference Range Interpretation Comme nts POCT GLU (test code = 9877688086) 241 mg/dL 70-110 H Lab Interpretation (test cod e = 65451-3) Abnormal [facility] GLUCOSE (AUTOMATED)2023-02-16 14:06:06* Test Item Value Reference Range Interpretation Comme nts POCT GLU (test code = 3221817704) 262 mg/dL 70-110 H Lab Interpretation (test cod e = 76326-5) Abnormal [facility] GLUCOSE (AUTOMATED)2023-02-16 11:31:28* Test Item Value Reference Range Interpretation Comme nts POCT GLU (test code = 1855607355) 160 mg/dL 70-110 H Lab Interpretation (test cod e = 66795-6) Abnormal [facility] GLUCOSE (AUTOMATED)2023-02-16 05:17:04* Test Item Value Reference Range Interpretation Comme nts POCT GLU (test code = 4744797964) 174 mg/dL 70-110 H Lab Interpretation (test cod e = 01529-6) Abnormal [facility] GLUCOSE (AUTOMATED)2023-02-16 01:30:24* Test Item Value Reference Range Interpretation Comme nts POCT GLU (test code = 5598714612) 207 mg/dL 70-110 H Lab Interpretation (test cod e = 36803-4) Abnormal [facility] GLUCOSE (AUTOMATED)2023-02-15 22:32:04* Test Item Value Reference Range Interpretation Comme nts POCT GLU (test code = 6726464222) 161 mg/dL 70-110 H Lab Interpretation (test cod e = 01373-3) Abnormal [facility] GLUCOSE (AUTOMATED)2023-02-15 16:57:38* Test Item Value Reference Range Interpretation Comme nts POCT GLU (test code = 2473602293) 176 mg/dL 70-110 H Lab Interpretation (test cod e = 19302-7) [facility]normal [facility]MINAL [id number] 14:17:57* Test Item Value Reference Range Interpretation Comme nts NT-proBNP (test code = 21732-6) 6130 pg/mL <=125 H LOW (test code = LOW) Positive: Heart Failure Likely Lab Interpretation (test code = 46542-0) Abnormal [facility] GLUCOSE (AUTOMATED)2023-02-15 11:07:11* Test Item Value Reference Range Interpretation Comme nts POCT GLU (test code = 3270532130) 173 mg/dL 70-110 H Lab Interpretation (test cod e = 54680-7) Abnormal [facility] METABOLIC PANEL (NA, K, CL, CO2, GLUCOSE, BUN, CREATININE, CA)2023-02-15 09:58:17* Test Item Value Reference Range Interpretation Comme nts NA (test code = 2792523327) 136 mmol/L 135-145 K (test code = 5713113565) 3.9 mmol/L 3.5-5.0 CL (test code = 5457891159) 102 mmol/L 98-108 CO2 TOTAL (test code = 4034719448) 26 mmol/L 23-31 AGAP (test code = 8006408193) 8 2-16 BUN (test code = 2834939305) 6 mg/dL 7-23 L GLUCOSE (test code = 3472493271) 168 mg/dL 70-110 H CREATININE (test code = 0509263989) 0.66 mg/dL 0.50-1.04 CALCIUM (test code = 0104700930) 8.7 mg/dL 8.6-10.6 eGFR (test code = 6822437031) 86.8 mL/min/1.73m2 LOW (test code = LOW) [...] imaging tests). Lab Interpretation (test code = 77608-5) Abnormal [facility] WITH [id number] 09:32:15* Test Item Value Reference Range Interpretation Comme nts WBC (test code = 6690-2) 7.23 See_Comment [Automated [employer]] The system which generated this result transmitted reference range: 4.30 - 11.10 10*3/?L. The reference range was not used to interpret this result as normal/abnormal. RBC (test code = 789-8) 3.97 See_Comment [Automated [employer]] The system which generated this result transmitted [...] g/dL 31.6-35.1 L RDW-SD (test code = 32142-0) 76.7 fL 39.0-49.9 H RDW-CV (test code = 788-0) 25.9 % 12.0-15.5 H PLT (test code = 777-3) 280 See_Comment [Automated [employer]] The system which generated this result transmitted reference range: 166 - 358 10*3/?L. The reference range was not used to interpret this result as normal/abnormal. MPV (test code = 34173-1) 10.0 fL 9.5-12.9 NRBC/100 WBC (test code = 7595672980) 0.0 See_Comment [Automated [employer] ssage] The system which generated this result transmitted reference range: 0.0 - 10.0 /100 WBCs. The reference range was not used to interpret this result as normal/abnormal. NRBC x10^3 (test code = 7427761940) See_Comment [Automated [employer]] The system which generated this result transmitted reference range: 10*3/?L. The reference range was not used to interpret this result as normal/abnormal. GRAN MAT (NEUT) % (test code = 770-8) 62.7 % IMM GRAN % (test code = 7197989092) 0.40 % LYMPH % (test code = 736-9) 20.6 % MONO % (test code = 5905-5) 11.6 % EOS % (test code = 713-8) 4.4 % BASO % (test code = 706-2) 0.3 % GRAN MAT x10^3(ANC) (test code = 1102569516) 4.53 10*3/uL 1.88-7.09 IMM GRAN x10^3 (test code = 9939856131) 0.03 10*3/uL 0.00-0.06 LYMPH x10^3 (test code = 731-0) 1.49 10*3/uL 1.32-3.29 MONO x10^3 (test code = 742-7) 0.84 10*3/uL 0.33-0.92 EOS x10^3 (test code = 711-2) 0.32 10*3/uL 0.03-0.39 BASO x10^3 (test code = 704-7) 0.01-0.07 Lab Interpretation (test code = 11707-7) Abnormal [facility] GLUCOSE (AUTOMATED)2023-02-15 05:16:18* Test Item Value Reference Range Interpretation Comme nts POCT GLU (test code = 8046429400) 135 mg/dL 70-110 H Lab Interpretation (test cod e = 36840-2) Abnormal [facility] GLUCOSE (AUTOMATED)2023-02-15 01:03:19* Test Item Value Reference Range Interpretation Comme nts POCT GLU (test code = 4582613372) 129 mg/dL 70-110 H Lab Interpretation (test cod e = 66702-8) Abnormal [facility] GLUCOSE (AUTOMATED)2023-02-14 21:53:23* Test Item Value Reference Range Interpretation Comme nts POCT GLU (test code = 5936456616) 138 mg/dL 70-110 H Lab Interpretation (test cod e = 12041-5) Abnormal [facility] GLUCOSE (AUTOMATED)2023-02-14 16:31:19* Test Item Value Reference Range Interpretation Comme nts POCT GLU (test code = 6732010906) 218 mg/dL 70-110 H Lab Interpretation (test cod e = 92536-3) Abnormal [facility] GLUCOSE (AUTOMATED)2023-02-14 12:11:56* Test Item Value Reference Range Interpretation Comme nts POCT GLU (test code = 3369352472) 169 mg/dL 70-110 H Lab Interpretation (test cod e = 42775-1) Abnormal [facility] GLUCOSE (AUTOMATED)2023-02-14 08:34:37* Test Item Value Reference Range Interpretation Comme nts POCT GLU (test code = 5140600963) 173 mg/dL 70-110 H Lab Interpretation (test cod e = 45284-2) [facility] 04:53:56* Test Item Value Reference Range Interpretation Comme nts POCT GLU (test code = 8598926740) 154 mg/dL 70-110 H Lab Interpretation (test cod e = 16376-9) [facility] 02:12:50* Test Item Value Reference Range Interpretation Comme nts POCT GLU (test code = 8465951901) 156 mg/dL 70-110 H Lab Interpretation (test cod e = 81720-2) Abnormal [facility] GLUCOSE (AUTOMATED)2023-02-13 22:06:19* Test Item Value Reference Range Interpretation Comme nts POCT GLU (test code = 4435977370) 200 mg/dL 70-110 H Notified Provide r Lab Interpretation (test code = 02718-4) Abnormal [facility] GLUCOSE (AUTOMATED)2023-02-13 17:06:42* Test Item Value Reference Range Interpretation Comme nts POCT GLU (test code = 7238701270) 184 mg/dL 70-110 H Lab Interpretation (test cod e = 71351-3) [facility]2023-02-13 12:42:11* Test Item Value Reference Range Interpretation Comme nts POCT GLU (test code = 1714667752) 188 mg/dL 70-110 H Lab Interpretation (test cod e = 78201-7) [facility]2023-02-13 09:03:30* Test Item Value Reference Range Interpretation Comme nts POCT GLU (test code = 9285305064) 190 mg/dL 70-110 H Lab Interpretation (test cod e = 28337-9) [facility]2023-02-13 05:06:24* Test Item Value Reference Range Interpretation Comme nts POCT GLU (test code = 5953502327) 182 mg/dL 70-110 H Lab Interpretation (test cod e = 05438-0) [facility]2023-02-13 02:05:35* Test Item Value Reference Range Interpretation Comme nts POCT GLU (test code = 2830570651) 241 mg/dL 70-110 H Lab Interpretation (test cod e = 40740-1) [facility]2023-02-12 22:33:00* Test Item Value Reference Range Interpretation Comme nts POCT GLU (test code = 4644578441) 228 mg/dL 70-110 H Lab Interpretation (test cod e = 59728-7) [facility]23-[facility]12 16:54:55* Test Item Value Reference Range Interpretation Comme nts POCT GLU (test code = 5877732828) 192 mg/dL 70-110 H Lab Interpretation (test cod e = 07663-0) [facility]12 13:09:31* Test Item Value Reference Range Interpretation Comme nts POCT GLU (test code = [id number]) 189 mg/dL 70-110 H Lab Interpretation (test cod e = 39478-5) Abnormal [facility] GLUCOSE (AUTOMATED)2023-02-12 09:07:10* Test Item Value Reference Range Interpretation Comme nts POCT GLU (test code = [id number]) 197 mg/dL 70-110 H Lab Interpretation (test cod e = 89810-1) Abnormal [facility] GLUCOSE (AUTOMATED)2023-02-12 05:10:50* Test Item Value Reference Range Interpretation Comme nts POCT GLU (test code = [id number]) 231 mg/dL 70-110 H Lab Interpretation (test cod e = 84998-2) Abnormal [facility] GLUCOSE (AUTOMATED)2023-02-12 02:16:10* Test Item Value Reference Range Interpretation Comme nts POCT GLU (test code = [id number]) 233 mg/dL 70-110 H Lab Interpretation (test cod e = 53461-8) [facility] 22:19:45* Test Item Value Reference Range Interpretation Comme nts POCT GLU (test code = 0414386267) 249 mg/dL 70-110 H Lab Interpretation (test cod e = 02337-8) [facility] 17:16:23* Test Item Value Reference Range Interpretation Comme nts POCT GLU (test code = 1772936936) 290 mg/dL 70-110 H Lab Interpretation (test cod e = 28018-5) Abnormal [facility] GLUCOSE (AUTOMATED)2023-02-11 12:57:30* Test Item Value Reference Range Interpretation Comme nts POCT GLU (test code = 0965543114) 225 mg/dL 70-110 H Lab Interpretation (test cod e = 96590-7) Abnormal [facility] GLUCOSE (AUTOMATED)2023-02-11 08:56:59* Test Item Value Reference Range Interpretation Comme nts POCT GLU (test code = 4116491234) 177 mg/dL 70-110 H Lab Interpretation (test cod e = 22396-3) Abnormal [facility] GLUCOSE (AUTOMATED)2023-02-11 04:45:57* Test Item Value Reference Range Interpretation Comme nts POCT GLU (test code = 1053652535) 274 mg/dL 70-110 H Lab Interpretation (test cod e = 05726-5) Abnormal [facility] GLUCOSE (AUTOMATED)2023-02-11 02:06:48* Test Item Value Reference Range Interpretation Comme nts POCT GLU (test code = 9321189180) 322 mg/dL 70-110 H Lab Interpretation (test cod e = 70907-3) Abnormal [facility] A VIRUS ANTIBODY [id number] 01:41:36* Test Item Value Reference Range Interpretation Comme nts HAVM Semi-Quantitative (test code = 00116-4) 0.01 LOW (test code = LOW) HAVAb IgM Interpretative Information: Reactive greater than or equal to 1.2 Biotin has been reported to cause a negative bias, interpret results relative to patient's use of biotin. [facility] A AB, IGG AND [id number] 23:42:13 * Test Item Value Reference Range Interpretation Comme [facility] HAV Total (test code = 7900077365) Negative HAVT Semi-Quantitative (test code = 2070477680) 1.49 [facility] B SURFACE [id number] 23:42:13* Test Item Value Reference Range Interpretation Comme nts HBsAB (test code = 9692429523) Negative HBsAb Semi-Quantitative (test code = 1836806634) 0.10 mIU/mL LOW (test code = LOW) Interpretation: ?Hepatitis B Surface Antibody ? Negative - Patient is considered to be not immune to infection with HBV. ? ? Positive - Anti-HBs detected at greater than or equal to 12 mIU/mL. ?Patient is considered to be immune to infection with HBV. ? [facility] [id number] 23:42:13* Test Item Value Reference Range Interpretation Comme nts HCV Ab (test code = 51231-7) Negative HCV Semi-Quantitative (test code = 94260-1) 0.01 [facility]AT[facility] CORE ANTIBODY [id number] 23:30:13* Test Item Value Reference Range Interpretation Comme nts HBCM Semi-Quantitative (test code = 95705-8) 0.02 LOW (test code = LOW) Biotin has been reported to cause a negative bias, interpret results relative to patient's use of biotin. [facility] GLUCOSE (AUTOMATED)2023-02-10 21:32:42* Test Item Value Reference Range Interpretation Comme nts POCT GLU (test code = 3652437052) 327 mg/dL 70-110 H Lab Interpretation (test cod e = 81254-0) Abnormal [facility] B SURFACE [id number] 19:57:53 * Test Item Value Reference Range Interpretation Comme nts HBsAg Semi-Quantitative (kevin t code = 5195-3) 0.07 Negative [facility] GLUCOSE (AUTOMATED)2023-02-10 17:21:48* Test Item Value Reference Range Interpretation Comme nts POCT GLU (test code = 8952025507) 308 mg/dL 70-110 H Lab Interpretation (test cod e = 19926-4) Abnormal [facility] GLUCOSE (AUTOMATED)2023-02-10 13:24:53* Test Item Value Reference Range Interpretation Comme nts POCT GLU (test code = 6460580331) 266 mg/dL 70-110 H Lab Interpretation (test cod e = 02581-1) Abnormal [facility] GLUCOSE (AUTOMATED)2023-02-10 08:48:41* Test Item Value Reference Range Interpretation Comme nts POCT GLU (test code = 2957498719) 270 mg/dL 70-110 H Lab Interpretation (test cod e = 62466-7) Abnormal [facility] GLUCOSE (AUTOMATED)2023-02-10 04:52:34* Test Item Value Reference Range Interpretation Comme nts POCT GLU (test code = 5807511162) 334 mg/dL 70-110 H Lab Interpretation (test cod e = 16913-4) Abnormal [facility] GLUCOSE (AUTOMATED)2023-02-10 01:13:46* Test Item Value Reference Range Interpretation Comme nts POCT GLU (test code = 0505210054) 372 mg/dL 70-110 H Lab Interpretation (test cod e = 02296-7) Abnormal [facility] GLUCOSE (AUTOMATED)2023-02-09 20:59:10* Test Item Value Reference Range Interpretation Comme nts POCT GLU (test code = 0621326170) 364 mg/dL 70-110 H Lab Interpretation (test cod e = 46287-6) Abnormal [facility] GLUCOSE (AUTOMATED)2023-02-09 16:50:31* Test Item Value Reference Range Interpretation Comme nts POCT GLU (test code = 5217014497) 356 mg/dL 70-110 H Lab Interpretation (test cod e = 70707-4) Abnormal [facility] GLUCOSE (AUTOMATED)2023-02-09 13:03:41* Test Item Value Reference Range Interpretation Comme nts POCT GLU (test code = 2713786258) 257 mg/dL 70-110 H Lab Interpretation (test cod e = 01007-0) Abnormal [facility] METABOLIC PANEL (NA, K, CL, CO2, GLUCOSE, BUN, CREATININE, CA)2023-02-09 11:02:51* Test Item Value Reference Range Interpretation Comme nts NA (test code = 9656774099) 135 mmol/L 135-145 K (test code = 9987170769) 3.1 mmol/L 3.5-5.0 L CL (test code = 8555375851) 89 mmol/L 98-108 L CO2 TOTAL (test code = 5903827032) 39 mmol/L 23-31 H AGAP (test code = 0845583454) 7 2-16 BUN (test code = 7839410321) 33 mg/dL 7-23 H GLUCOSE (test code = 3952754038) 290 mg/dL 70-110 H CREATININE (test code = 2272982997) 0.89 mg/dL 0.50-1.04 CALCIUM (test code = 1421403033) 8.6 mg/dL 8.6-10.6 eGFR (test code = 2437052582) 61.5 mL/min/1.73m2 LOW (test code = LOW) [...] imaging tests). Lab Interpretation (test code = 59998-9) Abnormal [facility] WITH [id number] 10:41:48* Test Item Value Reference Range Interpretation Comme nts WBC (test code = 6690-2) 10.89 See_Comment [Automated [employer]] The system which generated this result transmitted reference range: 4.30 - 11.10 10*3/?L. The reference range was not used to interpret this result as normal/abnormal. RBC (test code = 789-8) 3.81 See_Comment L [Automated messa ge] The system [...] g/dL 31.6-35.1 L RDW-SD (test code = 07122-2) 69.6 fL 39.0-49.9 H RDW-CV (test code = 788-0) 24.5 % 12.0-15.5 H PLT (test code = 777-3) 244 See_Comment [Automated messa ge] The system which generated this result transmitted reference range: 166 - 358 10*3/?L. The reference range was not used to interpret this result as normal/abnormal. MPV (test code = 49871-6) 9.9 fL 9.5-12.9 NRBC/100 WBC (test code = 1087531749) 0.3 See_Comment [Automated [employer] ssage] The system which generated this result transmitted reference range: 0.0 - 10.0 /100 WBCs. The reference range was not used to interpret this result as normal/abnormal. NRBC x10^3 (test code = 6961086560) 0.03 See_Comment [Automated messa ge] The system which generated this result transmitted reference range: 10*3/?L. The reference range was not used to interpret this result as normal/abnormal. GRAN MAT (NEUT) % (test code = 770-8) 75.8 % IMM GRAN % (test code = 5698755184) 0.60 % LYMPH % (test code = 736-9) 14.4 % MONO % (test code = 5905-5) 9.1 % EOS % (test code = 713-8) 0.0 % BASO % (test code = 706-2) 0.1 % GRAN MAT x10^3(ANC) (test code = 9960739143) 8.25 10*3/uL 1.88-7.09 H IMM GRAN x10^3 (test code = 4708942819) 0.07 10*3/uL 0.00-0.06 H LYMPH x10^3 (test code = 731-0) 1.57 10*3/uL 1.32-3.29 MONO x10^3 (test code = 742-7) 0.99 10*3/uL 0.33-0.92 H EOS x10^3 (test code = 711-2) 0.03-0.39 L BASO x10^3 (test code = 704-7) 0.01-0.07 Lab Interpretation (test code = 32955-2) Abnormal [facility] GLUCOSE (AUTOMATED)2023-02-09 09:47:04* Test Item Value Reference Range Interpretation Comme nts POCT GLU (test code = 9769562962) 307 mg/dL 70-110 H Lab Interpretation (test cod e = 61267-7) Abnormal [facility] GLUCOSE (AUTOMATED)2023-02-09 04:43:03* Test Item Value Reference Range Interpretation Comme nts POCT GLU (test code = 2583717654) 367 mg/dL 70-110 H Lab Interpretation (test cod e = 20872-9) Abnormal [facility] GLUCOSE (AUTOMATED)2023-02-09 01:18:56* Test Item Value Reference Range Interpretation Comme nts POCT GLU (test code = 6938627074) 411 mg/dL 70-110 H Lab Interpretation (test cod e = 82639-1) [facility]normal [facility] [id number] 23:01:40* Test Item Value Reference Range Interpretation Comme nts Blood Culture-Aerobic (test code = 93962-1) No organisms isolated No growth Previous preliminary [...] 1801 CDT Blood Culture-Anaerobic (test code = 83031-3) No organisms isolated No growth Previous preliminary [...] 1801 CDT Lab Interpretation (test code = 50723-7) [facility] [id number] 23:01:40* Test Item Value Reference Range Interpretation Comme nts Blood Culture-Aerobic (test code = 21003-6) No organisms isolated No growth Previous preliminary [...] 1801 CDT Blood Culture-Anaerobic (test code = 32943-3) No organisms isolated No growth Previous preliminary [...] 1801 CDT Lab Interpretation (test code = 03640-0) Normal [facility] GLUCOSE (AUTOMATED)2023-02-08 21:22:33* Test Item Value Reference Range Interpretation Comme nts POCT GLU (test code = 0851200574) 399 mg/dL 70-110 H Lab Interpretation (test cod e = 43771-4) Abnormal [facility] GLUCOSE (AUTOMATED)2023-02-08 16:34:35* Test Item Value Reference Range Interpretation Comme nts POCT GLU (test code = 4706869016) 422 mg/dL 70-110 H Lab Interpretation (test cod e = 04525-6) [facility]2023-02-08 12:36:31* Test Item Value Reference Range Interpretation Comme nts POCT GLU (test code = 8639153877) 330 mg/dL 70-110 H Lab Interpretation (test cod e = 58383-6) Abnormal [facility] METABOLIC PANEL (NA, K, CL, CO2, GLUCOSE, BUN, CREATININE, CA)2023-02-08 11:16:59* Test Item Value Reference Range Interpretation Comme [facility] NA (test code = 7711682567) 135 mmol/L 135-145 K (test code = 4884844897) 3.5 mmol/L 3.5-5.0 CL (test code = 0800091322) 94 mmol/L 98-108 L CO2 TOTAL (test code = 8141898174) 28 mmol/L 23-31 AGAP (test code = 5338630511) 13 2-16 BUN (test code = 6444269438) 33 mg/dL 7-23 H GLUCOSE (test code = 6368365260) 325 mg/dL 70-110 H CREATININE (test code = 4318577789) 1.00 mg/dL 0.50-1.04 CALCIUM (test code = 1807746194) 8.8 mg/dL 8.6-10.6 eGFR (test code = 0441104671) 53.8 mL/min/1.73m2 LOW (test code = LOW) [...] imaging tests). Lab Interpretation (test code = 32129-8) [facility]2023-02-08 11:08:02* Test Item Value Reference Range Interpretation Comme [facility] POCT GLU (test code = 8949664415) 337 mg/dL 70-110 H Lab Interpretation (test cod e = 92271-0) [facility]normal [facility] WITH [id number] 10:54:55* Test Item Value Reference Range Interpretation Comme [facility] WBC (test code = 6690-2) 15.95 See_Comment [...] g/dL 31.6-35.1 L RDW-SD (test code = 55197-8) 67.8 fL 39.0-49.9 H RDW-CV (test code = 788-0) 24.8 % 12.0-15.5 H PLT (test code = 777-3) 262 See_Comment [Automated message] The system which generated this result transmitted reference range: 166 - 358 10*3/?L. The reference range was not used to interpret this result as normal/abnormal. MPV (test code = 10466-6) 10.3 fL 9.5-12.9 NRBC/100 WBC (test code = 3883919302) 0.3 See_Comment [Automated message] The system which generated this result transmitted reference range: 0.0 - 10.0 /100 WBCs. The reference range was not used to interpret this result as normal/abnormal. NRBC x10^3 (test code = 5291614011) 0.04 See_Comment [Automated message] The system which generated this result transmitted reference range: 10*3/?L. The reference range was not used to interpret this result as normal/abnormal. GRAN MAT (NEUT) % (test code = 770-8) 92.4 % IMM GRAN % (test code = 8675399103) 0.80 % LYMPH % (test code = 736-9) 3.4 % MONO % (test code = 5905-5) 3.2 % EOS % (test code = 713-8) 0.1 % BASO % (test code = 706-2) 0.1 % GRAN MAT x10^3(ANC) (test code = 9109250510) 14.76 10*3/uL 1.88-7.09 H IMM GRAN x10^3 (test code = 7601038950) 0.12 10*3/uL 0.00-0.06 H LYMPH x10^3 (test code = 731-0) 0.54 10*3/uL 1.32-3.29 L MONO x10^3 (test code = 742-7) 0.51 10*3/uL 0.33-0.92 EOS x10^3 (test code = 711-2) 0.03-0.39 L BASO x10^3 (test code = 704-7) 0.01-0.07 Lab Interpretation (test code = 10154-5) Abnormal [facility] GLUCOSE (AUTOMATED)2023-02-08 05:44:57* Test Item Value Reference Range Interpretation Comme [facility] POCT GLU (test code = 2083134922) 337 mg/dL 70-110 H Lab Interpretation (test cod e = 04150-6) Abnormal [facility] GLUCOSE (AUTOMATED)2023-02-08 01:02:53* Test Item Value Reference Range Interpretation Comme [facility] POCT GLU (test code = 8654072014) 307 mg/dL 70-110 H Lab Interpretation (test cod e = 58747-7) Abnormal [facility] GLUCOSE (AUTOMATED)2023-02-07 21:04:59* Test Item Value Reference Range Interpretation Comme [facility] POCT GLU (test code = 0003335448) 301 mg/dL 70-110 H Lab Interpretation (test cod e = 16912-1) [facility]normal [facility]an[facility] (TTE)2023-02-07 18:17:39* Test Item Value Reference Range Interpretation Comme [facility] Height (test code = 9111587713) 66 in Weight (test code = 6802563079) 205 lbs Systolic BP (test code = 8118320112) 120 mmHg Diastolic BP (test code = 7524973902) 73 mmHg Heart Rate (test code = 7771396189) 75 bpm LVOT stroke volume (test code = 8270825770) 48.20 cm3 EF(Teich) (test code = 7153250649) 52.90 % LVIDD (test code = 0903455239) 4.90 cm LVIDS (test code = 3173129973) 3.60 cm Left Ventricular End Systolic Volume by Teichholz Method (test code = 5919584) 53.7 mL Left Ventricular End Diastolic Volume by Teichholz Method (test code = 5664436) 113.9 mL IVS (test code = 7921622144) 1.07 cm LVPWD (test code = 7766891775) 1.11 cm LVOT diameter (test code = 9891415910) 2.03 cm LVOT area (test code = 0846085091) 3.20 cm2 FS (test code = 9573852250) 27 % MV Peak E Rohini (test code = 5358920787) 123.1 cm/s MV Peak A Rohini (test code = 4674981730) 53.6 cm/s E/A ratio (test code = 8211509272) 2.30 ratio E wave decelartion time (test code = 5221641491) 0.24 s MV E/e' septal (test code = 6548855917) 9.5 cm/s LA volume (BP) (test code = 8355721808) 87.3 mL LVOT peak rohini (test code = 5709416949) 68.9 cm/s LVOT mn grad (test code = 6239794730) 0.9 mmHg Left Ventricular Cardiac Output (test code = 9995558) 3.5 L/min LA size (test code = 3791164876) 4.6 cm LAV(MOD-sp2) (test code = 6974239175) 88.20 mL LAV(MOD-sp4) (test code = 1052430722) 76.50 mL Tapse (test code = 3055898786) 1.47 cm AV LVOT peak gradient (test code = 2125125362) 1.90 mmHg LVOT peak VTI (test code = 0907013811) 14.9 cm Aortic HR (test code = 6756834335) 72.60 BPM LV V1 mean (test code = 2050151687) 44.70 cm/s MV Prop V (test code = 9493930418) 39.70 cm/s TR Peak Rohini (test code = 1285779811) 292.5 cm/s Triscuspid Valve Regurgitation Peak Gradient (test code = 1141429263) 34.3 mmHg Ao root diam (test code = 4865664566) 3.40 cm Aortic root (test code = 2465569616) 3.4 cm Ao root annulus (test code = 2958692558) 3.4 cm PW (test code = 8451818449) 1.11 cm 0.6-1.1 EF - 2D (test code = 17782327) 52.90 % Interventricular Septum Diastolic Thickness by 2D (test code = 7394853) 1.07 cm LA Volume Index (BP) (test code = 0370753636) 43.2 mL/m2 BSA (test code = 1759352639) 2.02 m2 Aortic valve mean velocity (test code = 1495054479) 97.0 cm/s Ao peak rohini (test code = 0809464530) 162.1 cm/s Ao VTI (test code = 0694702088) 25.6 cm AV area by cont VTI (test code = 3499153057) 1.9 cm2 AV area peak rohini (test code = 6833632432) 1.4 cm2 Ao max PG (test code = 8405716284) 10.50 mm[Hg] AV peak gradient (test code = 5560481419) 10.5 mmHg AV valve area (test code = 6303517131) 1.88 cm2 AV mean gradient (test code = 4942575532) 4.6 mmHg Radiology Study observation (narrative) (test code = 02347-8) LOW (test code = LOW) ?Left?Ventricle: Left [...] lateral and apex.All other segments are normal. [facility] [id number] 17:44:53* Test Item Value Reference Range Interpretation Comme nts TROPONIN I (test code = 2317832002) 0.226 ng/mL <=0.034 H LOW (test code [...] of biotin. Lab Interpretation (test code = 86318-7) Abnormal [facility] METABOLIC PANEL (NA, K, CL, CO2, GLUCOSE, BUN, CREATININE, CA)2023-02-07 17:34:54* Test Item Value Reference Range Interpretation Comme nts NA (test code = 5094022434) 140 mmol/L 135-145 K (test code = 9754127701) 3.9 mmol/L 3.5-5.0 CL (test code = 5292226103) 98 mmol/L 98-108 CO2 TOTAL (test code = 1242040173) 33 mmol/L 23-31 H AGAP (test code = 1789971910) 9 2-16 BUN (test code = 9637017617) 30 mg/dL 7-23 H GLUCOSE (test code = 9552962836) 285 mg/dL 70-110 H CREATININE (test code = 9954325619) 1.08 mg/dL 0.50-1.04 H CALCIUM (test code = 6010055588) 8.8 mg/dL 8.6-10.6 eGFR (test code = 8804049115) 49.2 mL/min/1.73m2 LOW (test code = LOW) [...] imaging tests). Lab Interpretation (test code = 06792-2) [facility] 17:34:54* Test Item Value Reference Range Interpretation Comme nts MAGNESIUM (test code = 0107585635) 1.9 mg/dL 1.7-2.4 Lab Interpretation (test cod e = 33690-6) Normal [facility] WITH [id number] 17:26:54* Test Item Value Reference Range Interpretation [...] g/dL 31.6-35.1 L RDW-SD (test code = 51538-7) 65.7 fL 39.0-49.9 H RDW-CV (test code = 788-0) 24.3 % 12.0-15.5 H PLT (test code = 777-3) 252 See_Comment [Automated message] The system which generated this result transmitted reference range: 166 - 358 10*3/?L. The reference range was not used to interpret this result as normal/abnormal. MPV (test code = 65065-4) 10.0 fL 9.5-12.9 NRBC/100 WBC (test code = 0567379513) 0.2 See_Comment [Automated message] The system which generated this result transmitted reference range: 0.0 - 10.0 /100 WBCs. The reference range was not used to interpret this result as normal/abnormal. NRBC x10^3 (test code = 5486902398) 0.02 See_Comment [Automated message] The system which generated this result transmitted reference range: 10*3/?L. The reference range was not used to interpret this result as normal/abnormal. GRAN MAT (NEUT) % (test code = 770-8) 91.7 % IMM GRAN % (test code = 6947381246) 0.50 % LYMPH % (test code = 736-9) 4.3 % MONO % (test code = 5905-5) 3.4 % EOS % (test code = 713-8) 0.0 % BASO % (test code = 706-2) 0.1 % GRAN MAT x10^3(ANC) (test code = 4357213917) 10.24 10*3/uL 1.88-7.09 H IMM GRAN x10^3 (test code = 4985848752) 0.06 10*3/uL 0.00-0.06 LYMPH x10^3 (test code = 731-0) 0.48 10*3/uL 1.32-3.29 L MONO x10^3 (test code = 742-7) 0.38 10*3/uL 0.33-0.92 EOS x10^3 (test code = 711-2) 0.03-0.39 L BASO x10^3 (test code = 704-7) 0.01-0.07 Lab Interpretation (test code = 09324-6) Abnormal [facility] GLUCOSE (AUTOMATED)2023-02-07 16:44:05* Test Item Value Reference Range Interpretation Comme [facility] POCT GLU (test code = 5021541145) 281 mg/dL 70-110 H Lab Interpretation (test cod e = 10810-4) Abnormal [facility] GLUCOSE (AUTOMATED)2023-02-07 12:28:58* Test Item Value Reference Range Interpretation Comme [facility] POCT GLU (test code = 2893956035) 266 mg/dL 70-110 H Lab Interpretation (test cod e = 64870-0) Abnormal [facility] [id number] 11:55:36* Test Item Value Reference Range Interpretation Comme nts TROPONIN I (test code = 9870077039) 0.295 ng/mL <=0.034 H LOW (test code [...] of biotin. Lab Interpretation (test code = 95870-4) [facility]2023-02-07 09:39:18* Test Item Value Reference Range Interpretation Comme [facility] POCT GLU (test code = 0120336499) 257 mg/dL 70-110 H Lab Interpretation (test cod e = 71728-2) Abnormal [facility] [id number] 05:34:20* Test Item Value Reference Range Interpretation Comme nts TROPONIN I (test code = 7897799645) 0.437 ng/mL <=0.034 H LOW (test code [...] of biotin. Lab Interpretation (test code = 52321-2) Abnormal [facility] METABOLIC PANEL (NA, K, CL, CO2, GLUCOSE, BUN, CREATININE, CA)2023-02-07 05:23:38* Test Item Value Reference Range Interpretation Comme nts NA (test code = 9477403683) 139 mmol/L 135-145 K (test code = 0993381272) 4.2 mmol/L 3.5-5.0 CL (test code = 4122211397) 98 mmol/L 98-108 CO2 TOTAL (test code = 0306901596) 31 mmol/L 23-31 AGAP (test code = 4878045252) 10 2-16 BUN (test code = 9754942019) 23 mg/dL 7-23 GLUCOSE (test code = 5902896000) 246 mg/dL 70-110 H CREATININE (test code = 3715970537) 0.85 mg/dL 0.50-1.04 CALCIUM (test code = 6135831067) 8.7 mg/dL 8.6-10.6 eGFR (test code = 8008182169) 64.9 mL/min/1.73m2 LOW (test code = LOW) [...] imaging tests). Lab Interpretation (test code = 30284-5) [facility] 05:23:38* Test Item Value Reference Range Interpretation Comme nts MAGNESIUM (test code = 1104374567) 1.3 mg/dL 1.7-2.4 L Lab Interpretation (test cod e = 37398-2) [facility]23-[facility] 05:23:38* Test Item Value Reference Range Interpretation Comme nts PHOSPHORUS (test code = 7378843061) 3.5 mg/dL 2.5-5.0 Lab Interpretation (test cod e = 74592-0) Normal [facility] WITHOUT [id number] 05:04:53* Test Item Value Reference Range Interpretation [...] result as normal/abnormal. MPV (test code = 87634-6) 9.7 fL 9.5-12.9 RDW-CV (test code = 788-0) 23.7 % 12.0-15.5 H RDW-SD (test code = 97079-6) 63.2 fL 39.0-49.9 H NRBC x10^3 (test code = 1766984049) 0.05 See_Comment [Automated [employer]] The system which generated this result transmitted reference range: 10*3/?L. The reference range was not used to interpret this result as normal/abnormal. NRBC/100 WBC (test code = 2488935442) 0.5 See_Comment [Automated [employer]] The system which generated this result transmitted reference range: 0.0 - 10.0 /100 WBCs. The reference range was not used to interpret this result as normal/abnormal. IPF % (test code = 7824489624) Lab Interpretation (test code = 36958-9) Abnormal [facility] GLUCOSE (AUTOMATED)2023-02-07 04:56:31* Test Item Value Reference Range Interpretation Comme nts POCT GLU (test code = 5475276600) 225 mg/dL 70-110 H Lab Interpretation (test cod e = 09925-7) Abnormal [facility] GLUCOSE (AUTOMATED)2023-02-07 00:52:59* Test Item Value Reference Range Interpretation Comme nts POCT GLU (test code = 4400327748) 267 mg/dL 70-110 H Lab Interpretation (test cod e = 86697-4) [facility] [id number] 23:45:26* Test Item Value Reference Range Interpretation Comme nts TROPONIN I (test code = 2682125597) 0.379 ng/mL <=0.034 H LOW (test code [...] of biotin. Lab Interpretation (test code = 56602-7) Abnormal [facility] GLUCOSE (AUTOMATED)2023-02-06 21:24:59* Test Item Value Reference Range Interpretation Comme nts POCT GLU (test code = 9754773104) 258 mg/dL 70-110 H Lab Interpretation (test cod e = 35981-1) Abnormal [facility] GLUCOSE (AUTOMATED)2023-02-06 17:38:25* Test Item Value Reference Range Interpretation Comme nts POCT GLU (test code = 0090971112) 249 mg/dL 70-110 H Lab Interpretation (test cod e = 60612-2) [facility]-[id number] 14:55:40* Test Item Value Reference Range Interpretation Comme nts NT-proBNP (test code = 50758-2) 31736 pg/mL <=125 H LOW (test code = LOW) Positive: Heart Failure Likely Lab Interpretation (test code = 78276-7) [id number] 14:55:40* Test Item Value Reference Range Interpretation Comme nts NT-proBNP (test code = 30339-9) 63583 pg/mL <=125 H LOW (test code = LOW) Positive: Heart Failure Likely Lab Interpretation (test code = 75362-1) Abnormal [facility] GLUCOSE (AUTOMATED)2023-02-06 13:11:26* Test Item Value Reference Range Interpretation Comme nts POCT GLU (test code = 8822888119) 244 mg/dL 70-110 H Lab Interpretation (test cod e = 95157-4) Abnormal [facility] GLUCOSE (AUTOMATED)2023-02-06 13:11:26* Test Item Value Reference Range Interpretation Comme nts POCT GLU (test code = 9766942443) 244 mg/dL 70-110 H Lab Interpretation (test cod e = 82827-9) [facility] + Lactic [id number] 06:31:17* Test Item Value Reference Range Interpretation Comme nts PH (test code = 2) 7.38 7.35-7.45 PCO2 (test code = 1619592559) 43 See_Comment [Automated messa ge] The system which generated this result transmitted reference range: 35 - 45 mmHg. The reference range was not used to interpret this result as normal/abnormal. PO2 (test code = 6941265100) 50 See_Comment L [Automated messa ge] The system which generated this result transmitted reference range: 80 - 100 mmHg. The reference range was not used to interpret this result as normal/abnormal. HCO3 (test code = 9589400325) 25 See_Comment [Automated messa ge] The system which generated this result transmitted reference range: 22 - 26 mEq/L. The reference range was not used to interpret this result as normal/abnormal. BE (test code = 9225791235) -0.7 See_Comment [Automated messa ge] The system which generated this result transmitted reference range: -3.0 - 3.0 mEq/L. The reference range was not used to interpret this result as normal/abnormal. THB (test code = 5775683294) 10.7 g/dL 12.0-16.0 L %O2HB (test code = 0001168641) 84.8 % 94.0-99.0 L %COHB ART (test code = 6815894404) 0.4 % 0.0-1.5 %METHB ART (test code = 5618828299) 0.5 % 0.4-1.5 VOL%O2 ART (test code = 2898285360) 12.8 % 15.0-23.0 L NA (test code = 2867062864) 140 mmol/L 135-145 K+ (test code = 1962357866) 4.8 mmol/L 3.5-5.0 AC CA IONZ (test code = 1048861029) 5.00 mg/dL 4.50-5.30 GLUCOSE (test code = 5934709242) 175 mg/dL 70-110 H LACTIC ACID (test code = 9387154938) 1.87 mmol/L 0.50-2.20 Lab Interpretation (test code = 23084-1) [facility] + Lactic [id number] 06:31:17* Test Item Value Reference Range Interpretation Comme nts PH (test code = 2) 7.38 7.35-7.45 PCO2 (test code = 9652627656) 43 See_Comment [Automated messa ge] The system which generated this result transmitted reference range: 35 - 45 mmHg. The reference range was not used to interpret this result as normal/abnormal. PO2 (test code = 3012840249) 50 See_Comment L [Automated messa ge] The system which generated this result transmitted reference range: 80 - 100 mmHg. The reference range was not used to interpret this result as normal/abnormal. HCO3 (test code = 1521620174) 25 See_Comment [Automated messa ge] The system which generated this result transmitted reference range: 22 - 26 mEq/L. The reference range was not used to interpret this result as normal/abnormal. BE (test code = 4771059742) -0.7 See_Comment [Automated messa ge] The system which generated this result transmitted reference range: -3.0 - 3.0 mEq/L. The reference range was not used to interpret this result as normal/abnormal. THB (test code = 1178631461) 10.7 g/dL 12.0-16.0 L %O2HB (test code = 4687625682) 84.8 % 94.0-99.0 L %COHB ART (test code = 1889651548) 0.4 % 0.0-1.5 %METHB ART (test code = 7465957767) 0.5 % 0.4-1.5 VOL%O2 ART (test code = 6298205341) 12.8 % 15.0-23.0 L NA (test code = 2072015940) 140 mmol/L 135-145 K+ (test code = 6260526309) 4.8 mmol/L 3.5-5.0 AC CA IONZ (test code = 2107053439) 5.00 mg/dL 4.50-5.30 GLUCOSE (test code = 3809389921) 175 mg/dL 70-110 H LACTIC ACID (test code = 6742335169) 1.87 mmol/L 0.50-2.20 Lab Interpretation (test code = 81702-7) Abnormal [facility] GLUCOSE (AUTOMATED)2023-02-06 05:35:42* Test Item Value Reference Range Interpretation Comme nts POCT GLU (test code = 9690714593) 176 mg/dL 70-110 H Lab Interpretation (test cod e = 49545-8) Abnormal [facility] GLUCOSE (AUTOMATED)2023-02-06 02:02:51* Test Item Value Reference Range Interpretation Comme nts POCT GLU (test code = 3079179669) 181 mg/dL 70-110 H Lab Interpretation (test cod e = 42734-8) Abnormal [facility] GLUCOSE (AUTOMATED)2023-02-05 22:51:35* Test Item Value Reference Range Interpretation Comme nts POCT GLU (test code = 0589576037) 167 mg/dL 70-110 H Lab Interpretation (test cod e = 34621-0) Abnormal [facility] GLUCOSE (AUTOMATED)2023-02-05 17:17:43* Test Item Value Reference Range Interpretation Comme nts POCT GLU (test code = 8239489238) 171 mg/dL 70-110 H Lab Interpretation (test cod e = 84890-5) Abnormal [facility] GLUCOSE (AUTOMATED)2023-02-05 13:33:07* Test Item Value Reference Range Interpretation Comme nts POCT GLU (test code = 0227275244) 207 mg/dL 70-110 H Lab Interpretation (test cod e = 30216-2) Abnormal [facility] GLUCOSE (AUTOMATED)2023-02-05 09:34:22* Test Item Value Reference Range Interpretation Comme nts POCT GLU (test code = 4771809643) 159 mg/dL 70-110 H Lab Interpretation (test cod e = 43853-2) Abnormal [facility] GLUCOSE (AUTOMATED)2023-02-05 04:19:01* Test Item Value Reference Range Interpretation Comme nts POCT GLU (test code = 5779188642) 219 mg/dL 70-110 H Lab Interpretation (test cod e = 86042-5) Abnormal [facility] GLUCOSE (AUTOMATED)2023-02-05 02:04:20* Test Item Value Reference Range Interpretation Comme nts POCT GLU (test code = 4101400727) 243 mg/dL 70-110 H Lab Interpretation (test cod e = 36628-8) Abnormal [facility] GLUCOSE (AUTOMATED)2023-02-04 21:32:12* Test Item Value Reference Range Interpretation Comme nts POCT GLU (test code = 9617234973) 192 mg/dL 70-110 H Lab Interpretation (test cod e = 03189-2) Abnormal [facility] GLUCOSE (AUTOMATED)2023-02-04 16:41:55* Test Item Value Reference Range Interpretation Comme nts POCT GLU (test code = 1433957153) 186 mg/dL 70-110 H Lab Interpretation (test cod e = 69477-0) Abnormal [facility] GLUCOSE (AUTOMATED)2023-02-04 13:02:49* Test Item Value Reference Range Interpretation Comme nts POCT GLU (test code = 9261623601) 120 mg/dL 70-110 H Lab Interpretation (test cod e = 56321-1) Abnormal [facility] ABG + LACTIC [id number] 12:48:14* Test Item Value Reference Range Interpretation Comme nts PH (test code = 2) 7.39 7.35-7.45 PCO2 (test code = 9251030084) 38 See_Comment [Automated messa ge] The system which generated this result transmitted reference range: 35 - 45 mmHg. The reference range was not used to interpret this result as normal/abnormal. PO2 (test code = 4614341581) 141 See_Comment H [Automated messa ge] The system which generated this result transmitted reference range: 80 - 100 mmHg. The reference range was not used to interpret this result as normal/abnormal. HCO3 (test code = 4355676214) 22 See_Comment [Automated messa ge] The system which generated this result transmitted reference range: 22 - 26 mEq/L. The reference range was not used to interpret this result as normal/abnormal. BE (test code = 2462461347) -2.2 See_Comment [Automated messa ge] The system which generated this result transmitted reference range: -3.0 - 3.0 mEq/L. The reference range was not used to interpret this result as normal/abnormal. LACTIC ACID (test code = 7121176098) 1.35 mmol/L 0.50-2.20 COOXERR Lab Interpretation (test code = 67265-8) Abnormal [facility] ABG + LACTIC [id number] 12:48:14* Test Item Value Reference Range Interpretation Comme nts PH (test code = 2) 7.39 7.35-7.45 PCO2 (test code = 0971652852) 38 See_Comment [Automated messa ge] The system which generated this result transmitted reference range: 35 - 45 mmHg. The reference range was not used to interpret this result as normal/abnormal. PO2 (test code = 5390826906) 141 See_Comment H [Automated messa ge] The system which generated this result transmitted reference range: 80 - 100 mmHg. The reference range was not used to interpret this result as normal/abnormal. HCO3 (test code = 5119195196) 22 See_Comment [Automated messa ge] The system which generated this result transmitted reference range: 22 - 26 mEq/L. The reference range was not used to interpret this result as normal/abnormal. BE (test code = 8815148582) -2.2 See_Comment [Automated messa ge] The system which generated this result transmitted reference range: -3.0 - 3.0 mEq/L. The reference range was not used to interpret this result as normal/abnormal. LACTIC ACID (test code = 8848026069) 1.35 mmol/L 0.50-2.20 COOXERR Lab Interpretation (test code = 66375-0) [facility]th[facility] / [id number] 12:12:14* Test Item Value Reference Range Interpretation Comme [facility] PROTIME PATIENT (test code = 5964-2) 18.7 [...] the indications. Lab Interpretation (test code = 73812-9) [facility] 10:20:25* Test Item Value Reference Range Interpretation Comme [facility] PHOSPHORUS (test code = 4399854940) 4.9 mg/dL 2.5-5.0 Lab Interpretation (test cod e = 66879-4) Normal [facility] (NA, K, CL, CO2, GLUCOSE, BUN, CREATININE, CA)2023-02-04 10:20:25* Test Item Value Reference Range Interpretation Comme nts NA (test code = 9536752899) 136 mmol/L 135-145 K (test code = 2716540508) 4.9 mmol/L 3.5-5.0 CL (test code = 3991791873) 104 mmol/L 98-108 CO2 TOTAL (test code = 0298167493) 22 mmol/L 23-31 L AGAP (test code = 3395619766) 10 2-16 BUN (test code = 3782608090) 44 mg/dL 7-23 H GLUCOSE (test code = 4495001894) 101 mg/dL 70-110 CREATININE (test code = 9199972079) 1.41 mg/dL 0.50-1.04 H CALCIUM (test code = 0817608629) 8.2 mg/dL 8.6-10.6 L eGFR (test code = 1148544286) 36.2 mL/min/1.73m2 LOW (test code = LOW) [...] imaging tests). Lab Interpretation (test code = 89123-8) [facility]23-[facility] 10:20:25* Test Item Value Reference Range Interpretation Comme nts MAGNESIUM (test code = 4579664267) 1.9 mg/dL 1.7-2.4 Lab Interpretation (test cod e = 06052-8) [facility]2023-[facility]-20 10:20:25* Test Item Value Reference Range Interpretation Comme nts PHOSPHORUS (test code = 6536704667) 4.9 mg/dL 2.5-5.0 Lab Interpretation (test cod e = 28905-2) Normal [facility] WITH [id number] 09:57:00* Test Item Value Reference Range Interpretation [...] g/dL 31.6-35.1 L RDW-SD (test code = 94794-1) 57.3 fL 39.0-49.9 H RDW-CV (test code = 788-0) 19.6 % 12.0-15.5 H PLT (test code = 777-3) 257 See_Comment [Automated messa ge] The system which generated this result transmitted reference range: 166 - 358 10*3/?L. The reference range was not used to interpret this result as normal/abnormal. MPV (test code = 22023-7) 10.4 fL 9.5-12.9 NRBC/100 WBC (test code = 2566831145) 0.7 See_Comment [Automated me ssage] The system which generated this result transmitted reference range: 0.0 - 10.0 /100 WBCs. The reference range was not used to interpret this result as normal/abnormal. NRBC x10^3 (test code = 7309949101) 0.09 See_Comment [Automated messa ge] The system which generated this result transmitted reference range: 10*3/?L. The reference range was not used to interpret this result as normal/abnormal. GRAN MAT (NEUT) % (test code = 770-8) 80.6 % IMM GRAN % (test code = 7074775095) 0.90 % LYMPH % (test code = 736-9) 10.2 % MONO % (test code = 5905-5) 7.6 % EOS % (test code = 713-8) 0.3 % BASO % (test code = 706-2) 0.4 % GRAN MAT x10^3(ANC) (test code = 1686683836) 9.84 10*3/uL 1.88-7.09 H IMM GRAN x10^3 (test code = 2683707337) 0.11 10*3/uL 0.00-0.06 H LYMPH x10^3 (test code = 731-0) 1.25 10*3/uL 1.32-3.29 L MONO x10^3 (test code = 742-7) 0.93 10*3/uL 0.33-0.92 H EOS x10^3 (test code = 711-2) 0.04 10*3/uL 0.03-0.39 BASO x10^3 (test code = 704-7) 0.05 10*3/uL 0.01-0.07 Lab Interpretation (test code = 03936-7) Abnormal [facility] GLUCOSE (AUTOMATED)2023-02-04 09:20:35* Test Item Value Reference Range Interpretation Comme nts POCT GLU (test code = 1829007269) 111 mg/dL 70-110 H Lab Interpretation (test cod e = 16835-5) Abnormal [facility] GLUCOSE (AUTOMATED)2023-02-04 03:57:37* Test Item Value Reference Range Interpretation Comme nts POCT GLU (test code = 1922825890) 100 mg/dL 70-110 Lab Interpretation (test cod e = 77792-4) Normal [facility] GLUCOSE (AUTOMATED)2023-02-04 02:15:57* Test Item Value Reference Range Interpretation Comme nts POCT GLU (test code = 8374201786) 95 mg/dL 70-110 Lab Interpretation (test cod e = 86058-8) [facility]COOX+NA+K+GLU+CA2+2023-02-04 01:21:05* Test Item Value Reference Range Interpretation Comme nts PH (test code = 2) 7.24 7.35-7.45 L PCO2 (test code = 1186525101) 50 See_Comment H [Automated messa ge] The system which generated this result transmitted reference range: 35 - 45 mmHg. The reference range was not used to interpret this result as normal/abnormal. PO2 (test code = 8422333294) 87 See_Comment [Automated messa ge] The system which generated this result transmitted reference range: 80 - 100 mmHg. The reference range was not used to interpret this result as normal/abnormal. HCO3 (test code = 0722020247) 21 See_Comment L [Automated messa ge] The system which generated this result transmitted reference range: 22 - 26 mEq/L. The reference range was not used to interpret this result as normal/abnormal. BE (test code = 0110951782) -6.3 See_Comment L [Automated messa ge] The system which generated this result transmitted reference range: -3.0 - 3.0 mEq/L. The reference range was not used to interpret this result as normal/abnormal. THB (test code = 7262113366) 9.6 g/dL 12.0-16.0 L %O2HB (test code = 7438056228) 93.7 % 94.0-99.0 L %COHB ART (test code = 9212530062) 0.9 % 0.0-1.5 %METHB ART (test code = 5254128628) 0.5 % 0.4-1.5 VOL%O2 ART (test code = 9455494082) 12.8 % 15.0-23.0 L NA (test code = 5302939069) 134 mmol/L 135-145 L K+ (test code = 5424911432) 5.1 mmol/L 3.5-5.0 H AC CA IONZ (test code = 9749694242) 4.90 mg/dL 4.50-5.30 GLUCOSE (test code = 1171021013) 95 mg/dL 70-110 Lab Interpretation (test code = 46442-0) [facility]COOX+NA+K+GLU+CA2+2023-02-04 01:21:05* Test Item Value Reference Range Interpretation Comme nts PH (test code = 2) 7.24 7.35-7.45 L PCO2 (test code = 9181623326) 50 See_Comment H [Automated messa ge] The system which generated this result transmitted reference range: 35 - 45 mmHg. The reference range was not used to interpret this result as normal/abnormal. PO2 (test code = 1766449948) 87 See_Comment [Automated messa ge] The system which generated this result transmitted reference range: 80 - 100 mmHg. The reference range was not used to interpret this result as normal/abnormal. HCO3 (test code = 7792485910) 21 See_Comment L [Automated messa ge] The system which generated this result transmitted reference range: 22 - 26 mEq/L. The reference range was not used to interpret this result as normal/abnormal. BE (test code = 8453243501) -6.3 See_Comment L [Automated messa ge] The system which generated this result transmitted reference range: -3.0 - 3.0 mEq/L. The reference range was not used to interpret this result as normal/abnormal. THB (test code = 2641676914) 9.6 g/dL 12.0-16.0 L %O2HB (test code = 5943638985) 93.7 % 94.0-99.0 L %COHB ART (test code = 0654802480) 0.9 % 0.0-1.5 %METHB ART (test code = 3634565790) 0.5 % 0.4-1.5 VOL%O2 ART (test code = 1636418967) 12.8 % 15.0-23.0 L NA (test code = 1963603927) 134 mmol/L 135-145 L K+ (test code = 3972299370) 5.1 mmol/L 3.5-5.0 H AC CA IONZ (test code = 1088257839) 4.90 mg/dL 4.50-5.30 GLUCOSE (test code = 1179474417) 95 mg/dL 70-110 Lab Interpretation (test code = 00335-6) [facility]2023-02-04 00:52:31* Test Item Value Reference Range Interpretation Comme nts POCT GLU (test code = 8042360050) 99 mg/dL 70-110 Lab Interpretation (test cod e = 96732-6) [facility]* Test Item Value Reference Range Interpretation Comme nts Fibrinogen (test code = 9706454137) 322 mg/dL 167-453 Lab Interpretation (test cod e = 67663-5) [facility] 22:27:20* Test Item Value Reference Range Interpretation Comme nts Fibrinogen (test code = 2788589827) 322 mg/dL 167-453 Lab Interpretation (test cod e = 16253-6) Normal [facility] METABOLIC PANEL (NA, K, CL, CO2, GLUCOSE, BUN, CREATININE, CA)2023-02-03 22:20:34* Test Item Value Reference Range Interpretation Comme nts NA (test code = 3690494631) 133 mmol/L 135-145 L K (test code = 9356587813) 4.9 mmol/L 3.5-5.0 CL (test code = 6310757142) 102 mmol/L 98-108 CO2 TOTAL (test code = 0140429394) 17 mmol/L 23-31 L AGAP (test code = 6961765280) 14 2-16 BUN (test code = 4631856379) 45 mg/dL 7-23 H GLUCOSE (test code = 4943356067) 93 mg/dL 70-110 CREATININE (test code = 5784176436) 1.70 mg/dL 0.50-1.04 H CALCIUM (test code = 8816434731) 8.2 mg/dL 8.6-10.6 L eGFR (test code = 1715157584) 29.1 mL/min/1.73m2 LOW (test code = LOW) [...] imaging tests). Lab Interpretation (test code = 68807-7) [facility]+NA+K+GLU+CA2+2023-02-03 22:16:10* Test Item Value Reference Range Interpretation Comme nts PH (test code = 2) 7.25 7.35-7.45 L PCO2 (test code = 2177929325) 48 See_Comment H [Automated messa ge] The system which generated this result transmitted reference range: 35 - 45 mmHg. The reference range was not used to interpret this result as normal/abnormal. PO2 (test code = 6169001761) 79 See_Comment L [Automated messa ge] The system which generated this result transmitted reference range: 80 - 100 mmHg. The reference range was not used to interpret this result as normal/abnormal. HCO3 (test code = 5184785504) 21 See_Comment L [Automated messa ge] The system which generated this result transmitted reference range: 22 - 26 mEq/L. The reference range was not used to interpret this result as normal/abnormal. BE (test code = 4751687299) -6.2 See_Comment L [Automated messa ge] The system which generated this result transmitted reference range: -3.0 - 3.0 mEq/L. The reference range was not used to interpret this result as normal/abnormal. THB (test code = 1276533424) 9.5 g/dL 12.0-16.0 L %O2HB (test code = 6481229222) 92.3 % 94.0-99.0 L %COHB ART (test code = 0621752605) 1.0 % 0.0-1.5 %METHB ART (test code = 8245246349) 0.5 % 0.4-1.5 VOL%O2 ART (test code = 3693370218) 12.4 % 15.0-23.0 L NA (test code = 1625329155) 135 mmol/L 135-145 K+ (test code = 4172386118) 5.0 mmol/L 3.5-5.0 AC CA IONZ (test code = 7157748294) 4.90 mg/dL 4.50-5.30 GLUCOSE (test code = 7441731988) 101 mg/dL 70-110 Lab Interpretation (test code = 28259-6) Abnormal [facility] WITH [id number] 21:56:32* Test Item Value Reference Range Interpretation [...] g/dL 31.6-35.1 L RDW-SD (test code = 12722-1) 53.7 fL 39.0-49.9 H RDW-CV (test code = 788-0) 18.8 % 12.0-15.5 H PLT (test code = 777-3) 254 See_Comment [Automated message] The system which generated this result transmitted reference range: 166 - 358 10*3/?L. The reference range was not used to interpret this result as normal/abnormal. MPV (test code = 70606-8) 10.3 fL 9.5-12.9 NRBC/100 WBC (test code = 0143354684) 0.9 See_Comment [Automated message] The system which generated this result transmitted reference range: 0.0 - 10.0 /100 WBCs. The reference range was not used to interpret this result as normal/abnormal. NRBC x10^3 (test code = 2033516701) 0.13 See_Comment [Automated message] The system which generated this result transmitted reference range: 10*3/?L. The reference range was not used to interpret this result as normal/abnormal. GRAN MAT (NEUT) % (test code = 770-8) 84.4 % IMM GRAN % (test code = 0355784702) 1.20 % LYMPH % (test code = 736-9) 6.5 % MONO % (test code = 5905-5) 7.4 % EOS % (test code = 713-8) 0.3 % BASO % (test code = 706-2) 0.2 % GRAN MAT x10^3(ANC) (test code = 3376717971) 12.82 10*3/uL 1.88-7.09 H IMM GRAN x10^3 (test code = 2019484221) 0.18 10*3/uL 0.00-0.06 H LYMPH x10^3 (test code = 731-0) 0.99 10*3/uL 1.32-3.29 L MONO x10^3 (test code = 742-7) 1.13 10*3/uL 0.33-0.92 H EOS x10^3 (test code = 711-2) 0.04 10*3/uL 0.03-0.39 BASO x10^3 (test code = 704-7) 0.03 10*3/uL 0.01-0.07 Lab Interpretation (test code = 15495-8) [facility]-03 21:33:38* Test Item Value Reference Range Interpretation Comme nts POCT GLU (test code = 7681417960) 102 mg/dL 70-110 Lab Interpretation (test cod e = 15604-7) [facility], [id number] 20:56:41* Test Item Value Reference Range Interpretation Comme nts VIT B12 (test code = 4982258131) 921 pg/mL 240-930 LOW (test code = LOW) Biotin has been reported to cause a positive bias, interpret results relative to patient's use of biotin. Lab Interpretation (test code = 72004-6) [facility] B12, [id number] 20:56:41* Test Item Value Reference Range Interpretation Comme nts VIT B12 (test code = 1014512132) 921 pg/mL 240-930 LOW (test code = LOW) Biotin has been reported to cause a positive bias, interpret results relative to patient's use of biotin. Lab Interpretation (test code = 01216-0) [facility]COOX+NA+K+GLU+CA2+2023-02-03 20:44:30* Test Item Value Reference Range Interpretation Comme nts PH (test code = 2) 7.31 7.35-7.45 L PCO2 (test code = 6513048834) 17 See_Comment L [Automated messa ge] The system which generated this result transmitted reference range: 35 - 45 mmHg. The reference range was not used to interpret this result as normal/abnormal. PO2 (test code = 3740224552) 131 See_Comment H [Automated messa ge] The system which generated this result transmitted reference range: 80 - 100 mmHg. The reference range was not used to interpret this result as normal/abnormal. HCO3 (test code = 4387620719) 8 See_Comment L [Automated messa ge] The system which generated this result transmitted reference range: 22 - 26 mEq/L. The reference range was not used to interpret this result as normal/abnormal. BE (test code = 9915514887) -17.1 See_Comment L [Automated messa ge] The system which generated this result transmitted reference range: -3.0 - 3.0 mEq/L. The reference range was not used to interpret this result as normal/abnormal. THB (test code = 1634599335) 3.6 g/dL 12.0-16.0 LL %O2HB (test code = 6910050351) 95.7 % 94.0-99.0 %COHB ART (test code = 6463381580) 0.3 % 0.0-1.5 %METHB ART (test code = 4777466158) 1.2 % 0.4-1.5 VOL%O2 ART (test code = 9876736883) 5.2 % 15.0-23.0 L NA (test code = 5304422322) 142 mmol/L 135-145 K+ (test code = 3614463849) 1.7 mmol/L 3.5-5.0 LL AC CA IONZ (test code = 5781605115) 2.60 mg/dL 4.50-5.30 LL GLUCOSE (test code = 8690051109) 34 mg/dL 70-110 LL Lab Interpretation (test code = 49612-7) Abnormal [facility] [facility]2023-09-19 17:40:52* Test Item Value Reference Range Interpretation Comme nts FOLATE SER (test code = 5122201700) 3.0-20.0 H Biotin has been reported to cause a positive bias, interpret results relative to patient's use of biotin. Lab Interpretation (test code = 38902-4) [facility] 17:40:52* Test Item Value Reference Range Interpretation Comme nts FOLATE SER (test code = 1343611760) 3.0-20.0 H Biotin has been reported to cause a positive bias, interpret results relative to patient's use of biotin. Lab Interpretation (test code = 76120-2) [facility]normal [facility]AUTOMATED)2023-02-03 17:29:17* Test Item Value Reference Range Interpretation Comme nts POCT GLU (test code = 6539587134) 99 mg/dL 70-110 Lab Interpretation (test cod e = 84348-6) Normal [facility] WITH [id number] 15:30:18* Test Item Value Reference Range Interpretation [...] g/dL 31.6-35.1 L RDW-SD (test code = 11533-2) 52.0 fL 39.0-49.9 H RDW-CV (test code = 788-0) 18.6 % 12.0-15.5 H PLT (test code = 777-3) 267 See_Comment [Automated message] The system which generated this result transmitted reference range: 166 - 358 10*3/?L. The reference range was not used to interpret this result as normal/abnormal. MPV (test code = 10076-2) 11.0 fL 9.5-12.9 NRBC/100 WBC (test code = 7523187574) 0.9 See_Comment [Automated message] The system which generated this result transmitted reference range: 0.0 - 10.0 /100 WBCs. The reference range was not used to interpret this result as normal/abnormal. NRBC x10^3 (test code = 1089043060) 0.14 See_Comment [Automated message] The system which generated this result transmitted reference range: 10*3/?L. The reference range was not used to interpret this result as normal/abnormal. GRAN MAT (NEUT) % (test code = 770-8) 86.1 % IMM GRAN % (test code = 9637198237) 0.70 % LYMPH % (test code = 736-9) 5.9 % MONO % (test code = 5905-5) 7.0 % EOS % (test code = 713-8) 0.1 % BASO % (test code = 706-2) 0.2 % GRAN MAT x10^3(ANC) (test code = 5695159961) 12.81 10*3/uL 1.88-7.09 H IMM GRAN x10^3 (test code = 1747181598) 0.11 10*3/uL 0.00-0.06 H LYMPH x10^3 (test code = 731-0) 0.88 10*3/uL 1.32-3.29 L MONO x10^3 (test code = 742-7) 1.04 10*3/uL 0.33-0.92 H EOS x10^3 (test code = 711-2) 0.03-0.39 L BASO x10^3 (test code = 704-7) 0.03 10*3/uL 0.01-0.07 Lab Interpretation (test code = 64709-6) [facility]normal [facility]inteProthrombin Time / [id number] 14:08:11* Test Item Value Reference Range Interpretation [...] the indications. Lab Interpretation (test code = 61240-0) Abnormal [facility] GLUCOSE (AUTOMATED)2023-02-03 13:34:12* Test Item Value Reference Range Interpretation Comme nts POCT GLU (test code = 1565244886) 79 mg/dL 70-110 Lab Interpretation (test cod e = 57351-5) Normal [facility] PointeFERRITIN [id number] 11:32:20* Test Item Value Reference Range Interpretation Comme nts FERRITIN (test code = 9008288988) 8.6 ng/mL 11.0-264.0 L LOW (test code = LOW) Biotin has been reported to cause a negative bias, interpret results relative to patient's use of biotin. Lab Interpretation (test code = 03590-6) [facility]normal [facility]inteFERRITIN [id number] 11:32:20* Test Item Value Reference Range Interpretation Comme nts FERRITIN (test code = 5752591108) 8.6 ng/mL 11.0-264.0 L LOW (test code = LOW) Biotin has been reported to cause a negative bias, interpret results relative to patient's use of biotin. Lab Interpretation (test code = 55271-9) Abnormal [facility] IRON BINDING [id number] 11:07:39 * Test Item Value Reference Range Interpretation Comme nts TIBC (test code = 1316688197) 528 ug/dL 250-410 H % FE SAT (test code = 2158456584) 65 % 20-50 H Lab Interpretation (test cod e = 16866-4) Abnormal [facility] IRON BINDING [id number] 11:07:39 * Test Item Value Reference Range Interpretation Comme nts TIBC (test code = 1963692006) 528 ug/dL 250-410 H % FE SAT (test code = 8429682985) 65 % 20-50 H Lab Interpretation (test cod e = 73825-8) [facility]normal [facility]ON2023-09-19 10:57:35* Test Item Value Reference Range Interpretation Comme nts IRON (test code = 8260951888) 345 ug/dL 50-160 H Lab Interpretation (test cod e = 16402-5) Abnormal [facility] METABOLIC PANEL (NA, K, CL, CO2, GLUCOSE, BUN, CREATININE, CA)2023-02-03 10:57:35* Test Item Value Reference Range Interpretation Comme nts NA (test code = 8778139536) 134 mmol/L 135-145 L K (test code = 9572077043) 4.8 mmol/L 3.5-5.0 CL (test code = 8136571392) 104 mmol/L 98-108 CO2 TOTAL (test code = 7583268344) 19 mmol/L 23-31 L AGAP (test code = 1139419459) 11 2-16 BUN (test code = 6894531968) 47 mg/dL 7-23 H GLUCOSE (test code = 8647456265) 75 mg/dL 70-110 CREATININE (test code = 2780779677) 1.96 mg/dL 0.50-1.04 H CALCIUM (test code = 3694729479) 8.1 mg/dL 8.6-10.6 L eGFR (test code = 8094910665) 24.7 mL/min/1.73m2 LOW (test code = LOW) [...] imaging tests). Lab Interpretation (test code = 87871-6) [facility]normal [facility]inteMAGNESIUM2023-09-19 10:57:35* Test Item Value Reference Range Interpretation Comme nts MAGNESIUM (test code = 0357054249) 1.9 mg/dL 1.7-2.4 Lab Interpretation (test cod e = 21234-3) Normal [facility]intePHOSPHORUS2023-09-19 10:57:35* Test Item Value Reference Range Interpretation Comme nts PHOSPHORUS (test code = 1485331995) 5.6 mg/dL 2.5-5.0 H Lab Interpretation (test cod e = 13160-3) [facility]normal [facility]2023-09-19 10:57:35* Test Item Value Reference Range Interpretation Comme nts IRON (test code = 2847851435) 345 ug/dL 50-160 H Lab Interpretation (test cod e = 90329-4) Abnormal [facility] PointeGLYCOSYLATED HEMOGLOBIN (A1C)2023-02-03 09:57:16* Test Item Value Reference Range Interpretation Comme nts HGB A1C (test code = 4548-4) 6.9 % 4.0-5.7 H LOW (test code = LOW) Reference RangesNormal: <5.7%Prediabetes: 5.7 - 6.4%Diabetes: > 6.5% Lab Interpretation (test code = 19144-1) Abnormal [facility] PointeGLYCOSYLATED HEMOGLOBIN (A1C)2023-02-03 09:57:16* Test Item Value Reference Range Interpretation Comme nts HGB A1C (test code = 4548-4) 6.9 % 4.0-5.7 H LOW (test code = LOW) Reference RangesNormal: <5.7%Prediabetes: 5.7 - 6.4%Diabetes: > 6.5% Lab Interpretation (test code = 58642-0) Abnormal [facility] WITHOUT [id number] 09:48:26* Test Item Value Reference Range Interpretation [...] result as normal/abnormal. MPV (test code = 00293-1) 10.6 fL 9.5-12.9 RDW-CV (test code = 788-0) 18.7 % 12.0-15.5 H RDW-SD (test code = 76251-4) 54.2 fL 39.0-49.9 H NRBC x10^3 (test code = 0242772760) 0.12 See_Comment [Automated messa ge] The system which generated this result transmitted reference range: 10*3/?L. The reference range was not used to interpret this result as normal/abnormal. NRBC/100 WBC (test code = 6072349507) 0.9 See_Comment [Automated messa ge] The system which generated this result transmitted reference range: 0.0 - 10.0 /100 WBCs. The reference range was not used to interpret this result as normal/abnormal. IPF % (test code = 5879774092) Lab Interpretation (test code = 91306-8) Abnormal [facility] WITHOUT [id number] 09:48:26* Test Item Value Reference Range Interpretation [...] result as normal/abnormal. MPV (test code = 00086-8) 10.6 fL 9.5-12.9 RDW-CV (test code = 788-0) 18.7 % 12.0-15.5 H RDW-SD (test code = 84606-6) 54.2 fL 39.0-49.9 H NRBC x10^3 (test code = 3485527807) 0.12 See_Comment [Automated messa ge] The system which generated this result transmitted reference range: 10*3/?L. The reference range was not used to interpret this result as normal/abnormal. NRBC/100 WBC (test code = 5035964091) 0.9 See_Comment [Automated messa ge] The system which generated this result transmitted reference range: 0.0 - 10.0 /100 WBCs. The reference range was not used to interpret this result as normal/abnormal. IPF % (test code = 8192811161) Lab Interpretation (test code = 51959-6) [facility]normal [facility]inte[facility]GA GLUCOSE (AUTOMATED)2023-02-03 09:14:47* Test Item Value Reference Range Interpretation Comme [facility] POCT GLU (test code = 5675911852) 91 mg/dL 70-110 Lab Interpretation (test cod e = 89564-4) Normal [facility] Packed RBC (in units), 1 Units 2023-02-03 05:32:46* Test Item Value Reference Range Interpretation Comme [facility] Cross Match Result (test code = 4409) Compatible ISBT Blood Type Code (test code = 619851) 6200 Unit Blood Type (test code = 4410) A Pos Unit Number (test code = 4411) [id number] Blood Expiration Date & Time (test code = 380969) [id number] Status Information (test code = 4412) Issued Product Identification (test code = 4413) Red Blood Cells Product Code (test code = 4414) [id number] Performed at [facility] Laboratory Services - [facility] Blood [address] [place] [address]Ohzy Free: [phone] No. [id number] [facility] Packed RBC (in units), 1 Units 2023-02-03 05:32:46* Test Item Value Reference Range Interpretation Comme [facility] Cross Match Result (test code = 4409) Compatible ISBT Blood Type Code (test code = 076411) 6200 Unit Blood Type (test code = 4410) A Pos Unit Number (test code = 4411) [id number] Blood Expiration Date & Time (test code = 296453) [id number] Status Information (test code = 4412) Issued Product Identification (test code = 4413) Red Blood Cells Product Code (test code = 4414) [id number] Performed at [facility] Laboratory Services - [facility] Blood [address] [place], [place] [address]Kxhn Free: [phone] No. [id number] [facility]inteType and Screen - ONCE [id number] 04:44:00* Test Item Value Reference Range Interpretation Comme nts ABO & RH (test code = 20) A POSITIVE IAT (test code = 1185) Negative [facility]inte[facility] and Screen - ONCE [id number] 04:44:00* Test Item Value Reference Range Interpretation Comme nts ABO & RH (test code = 20) A POSITIVE IAT (test code = 1185) Negative [facility]inte[facility] GLUCOSE (AUTOMATED)2023-02-03 04:28:31* Test Item Value Reference Range Interpretation Comme nts POCT GLU (test code = 6420957066) 107 mg/dL 70-110 Lab Interpretation (test cod e = 94231-1) Normal [facility]inte[facility] Packed RBC (in units), 2 Units 2023-02-03 01:04:45* Test Item Value Reference Range Interpretation Comme nts Cross Match Result (test code = 4409) Compatible ISBT Blood Type Code (test code = 340515) 6200 Unit Blood Type (test code = 4410) A Pos Unit Number (test code = 4411) [id number] Blood Expiration Date & Time (test code = 980818) 306375653459 Status Information (test code = 4412) Issued Product Identification (test code = 4413) Red Blood Cells Product Code (test code = 4414) [id number] Performed at [facility] Laboratory Services - [facility] Blood [address] [place] [address]Sjrn Free: [phone] No. [id number] [facility] PointeTHYROID STIMULATING [id number] 22:22:55 * Test Item Value Reference Range Interpretation Comme nts TSH (test code = 6119972729) 2.87 See_Comment Biotin has been reported to cause a negative bias, interpret results relative to patient's use of biotin. [Automated message] The system which generated this result transmitted reference range: 0.45 - 4.70 mIU/L. The reference range was not used to interpret this result as normal/abnormal. Lab Interpretation (test code = 32732-3) Normal [facility] PointeTHYROID STIMULATING [id number] 22:22:55 * Test Item Value Reference Range Interpretation Comme nts TSH (test code = 9584682831) 2.87 See_Comment Biotin has been reported to cause a negative bias, interpret results relative to patient's use of biotin. [Automated message] The system which generated this result transmitted reference range: 0.45 - 4.70 mIU/L. The reference range was not used to interpret this result as normal/abnormal. Lab Interpretation (test code = 83141-7) Normal [facility]inte[facility] and Screen - ONCE [id number] 21:42:00* Test Item Value Reference Range Interpretation Comme nts ABO & RH (test code = 20) A Positive IAT (test code = 1185) Negative [facility]inteAC ABG + LACTIC [id number] 20:35:56* Test Item Value Reference Range Interpretation Comme nts PH (test code = 2) 7.31 7.35-7.45 L PCO2 (test code = 7435005806) 37 See_Comment [Automated messa ge] The system which generated this result transmitted reference range: 35 - 45 mmHg. The reference range was not used to interpret this result as normal/abnormal. PO2 (test code = 7601226856) 94 See_Comment [Automated messa ge] The system which generated this result transmitted reference range: 80 - 100 mmHg. The reference range was not used to interpret this result as normal/abnormal. HCO3 (test code = 7166667387) 18 See_Comment L [Automated messa ge] The system which generated this result transmitted reference range: 22 - 26 mEq/L. The reference range was not used to interpret this result as normal/abnormal. BE (test code = 1951881785) -7.7 See_Comment L [Automated messa ge] The system which generated this result transmitted reference range: -3.0 - 3.0 mEq/L. The reference range was not used to interpret this result as normal/abnormal. LACTIC ACID (test code = 3725830578) 3.99 mmol/L 0.50-2.20 H Lab Interpretation (test code = 16219-5) Abnormal [facility] PointeHEMOGLOBIN [id number] 05:52:09* Test Item Value Reference Range Interpretation Comme nts HEMOGLOBIN A1c (test code = 07269) 8.2 % 4.2-5.6 H [employer] GUIDELINES FOR HGB A1C: [...] ALTERNATE TESTING OR LABORATORY CONSULTATION. BASIC METABOLIC [id number] 05:11:09* Test Item Value Reference Range Interpretation Comme nts GLUCOSE (test code = 2217) 241 MG/DL 70-99 H BUN (test code = 2208) 21 MG/DL 8-23 CREATININE (test code = 2214) 0.99 MG/DL 0.60-1.30 eGFR (2020 CKD-EPI) (test code = 83256) 59 ML/MIN/1.73 >60 L The NKF-ASN Taskforce recommends use of Cystatin C to confirm eGFR inadults at risk for CKD. [facility] offers eGFR with Cystatin C-Creatinineusing the 2020 CKD-EPI eGFR_creat-cystat equation (order code 3057) toincrease the accuracy of estimated GFR. For more information, contactyour accounts receivable bookkeeper or see announcement [email or web address]/egfr-cr-cys SODIUM (test code = 2231) 138 MEQ/L 133-146 POTASSIUM (test code = 2228) 4.0 MEQ/L 3.5-5.4 CHLORIDE (test code = 2215) 97 MEQ/L 95-107 CARBON DIOXIDE (test code = 2206) 30 MEQ/L 19-31 CALCIUM (test code = 2209) 9.3 MG/DL 8.5-10.5 UNLESS OTHERWISE INDICATED, ALL TESTING PERFORMED AT [facility] [address] [place] [address] LIP OF SHANK CUTTER: DIANELYS ANDERSON M.D. CLIA NUMBER [id number] [facility] [place]. [id number] BASIC METABOLIC [id number] 00:00:00* Test Item Value Reference Range Interpretation Comme nts GLUCOSE (test code = 2217) 241 MG/DL BUN (test code = 2208) 21 MG/DL CREATININE (test code = 2214) 0.99 MG/DL eGFR (2020 CKD-EPI) (test co de = 37509) 59 ML/MIN/1.73 SODIUM (test code = 2231) 138 MEQ/L POTASSIUM (test code = 2228) 4.0 MEQ/L CHLORIDE (test code = 2215) 97 MEQ/L CARBON DIOXIDE (test code = 2206) 30 MEQ/L CALCIUM (test code = 2209) 9.3 MG/DL Surendra Ross AustinHEMOGLOBIN [id number] 00:00:00* Test Item Value Reference Range Interpretation Comme nts HEMOGLOBIN A1c (test code = 78207) 8.2 % Surendra Ross AustinBASIC METABOLIC [id number] 00:00:00* Test Item Value Reference Range Interpretation Comme nts GLUCOSE (test code = 2217) 241 MG/DL BUN (test code = 2208) 21 MG/DL CREATININE (test code = 2214) 0.99 MG/DL eGFR (2020 CKD-EPI) (test co de = 58250) 59 ML/MIN/1.73 SODIUM (test code = 2231) 138 MEQ/L POTASSIUM (test code = 2228) 4.0 MEQ/L CHLORIDE (test code = 2215) 97 MEQ/L CARBON DIOXIDE (test code = 2206) 30 MEQ/L CALCIUM (test code = 2209) 9.3 MG/DL Surendra Ross AustinHEMOGLOBIN [id number] 00:00:00* Test Item Value Reference Range Interpretation Comme nts HEMOGLOBIN A1c (test code = 46733) 8.2 % Surendra Ross AustinBASIC METABOLIC [id number] 00:00:00* Test Item Value Reference Range Interpretation Comme nts GLUCOSE (test code = 2217) 241 MG/DL BUN (test code = 2208) 21 MG/DL CREATININE (test code = 2214) 0.99 MG/DL eGFR (2020 CKD-EPI) (test co de = 94094) 59 ML/MIN/1.73 SODIUM (test code = 2231) 138 MEQ/L POTASSIUM (test code = 2228) 4.0 MEQ/L CHLORIDE (test code = 2215) 97 MEQ/L CARBON DIOXIDE (test code = 2206) 30 MEQ/L CALCIUM (test code = 2209) 9.3 MG/DL Surendra Ross AustinHEMOGLOBIN [id number] 00:00:00* Test Item Value Reference Range Interpretation Comme nts HEMOGLOBIN A1c (test code = 50306) 8.2 % Surendra Ross AustinBASIC METABOLIC [id number] 00:00:00* Test Item Value Reference Range Interpretation Comme nts GLUCOSE (test code = 2217) 241 MG/DL BUN (test code = 2208) 21 MG/DL CREATININE (test code = 2214) 0.99 MG/DL eGFR (2020 CKD-EPI) (test co de = 84936) 59 ML/MIN/1.73 SODIUM (test code = 2231) 138 MEQ/L POTASSIUM (test code = 2228) 4.0 MEQ/L CHLORIDE (test code = 2215) 97 MEQ/L CARBON DIOXIDE (test code = 2206) 30 MEQ/L CALCIUM (test code = 2209) 9.3 MG/DL Surendra Ross AustinHEMOGLOBIN [id number] 00:00:00* Test Item Value Reference Range Interpretation Comme nts HEMOGLOBIN A1c (test code = 43713) 8.2 % Surendra Ross AustinBASIC METABOLIC [id number] 00:00:00* Test Item Value Reference Range Interpretation Comme nts GLUCOSE (test code = 2217) 241 MG/DL BUN (test code = 2208) 21 MG/DL CREATININE (test code = 2214) 0.99 MG/DL eGFR (2020 CKD-EPI) (test co de = 06293) 59 ML/MIN/1.73 SODIUM (test code = 2231) 138 MEQ/L POTASSIUM (test code = 2228) 4.0 MEQ/L CHLORIDE (test code = 2215) 97 MEQ/L CARBON DIOXIDE (test code = 2206) 30 MEQ/L CALCIUM (test code = 2209) 9.3 MG/DL Surendra Ross AustinHEMOGLOBIN [id number] 00:00:00* Test Item Value Reference Range Interpretation Comme nts HEMOGLOBIN A1c (test code = 56171) 8.2 % Surendra Ross AustinBASIC METABOLIC [id number] 00:00:00* Test Item Value Reference Range Interpretation Comme nts GLUCOSE (test code = 2217) 241 MG/DL BUN (test code = 2208) 21 MG/DL CREATININE (test code = 2214) 0.99 MG/DL eGFR (2020 CKD-EPI) (test co de = 01066) 59 ML/MIN/1.73 SODIUM (test code = 2231) 138 MEQ/L POTASSIUM (test code = 2228) 4.0 MEQ/L CHLORIDE (test code = 2215) 97 MEQ/L CARBON DIOXIDE (test code = 2206) 30 MEQ/L CALCIUM (test code = 2209) 9.3 MG/DL Surendra Ross AustinHEMOGLOBIN [id number] 00:00:00* Test Item Value Reference Range Interpretation Comme nts HEMOGLOBIN A1c (test code = 88305) 8.2 % Surendra Ross AustinBASIC METABOLIC [id number] 00:00:00* Test Item Value Reference Range Interpretation Comme nts GLUCOSE (test code = 2217) 241 MG/DL BUN (test code = 2208) 21 MG/DL CREATININE (test code = 2214) 0.99 MG/DL eGFR (2020 CKD-EPI) (test co de = 14841) 59 ML/MIN/1.73 SODIUM (test code = 2231) 138 MEQ/L POTASSIUM (test code = 2228) 4.0 MEQ/L CHLORIDE (test code = 2215) 97 MEQ/L CARBON DIOXIDE (test code = 2206) 30 MEQ/L CALCIUM (test code = 2209) 9.3 MG/DL Surendra Ross AustinHEMOGLOBIN [id number] 00:00:00* Test Item Value Reference Range Interpretation Comme nts HEMOGLOBIN A1c (test code = 55037) 8.2 % Surendra Ross AustinBASIC METABOLIC [id number] 00:00:00* Test Item Value Reference Range Interpretation Comme nts GLUCOSE (test code = 2217) 241 MG/DL BUN (test code = 2208) 21 MG/DL CREATININE (test code = 2214) 0.99 MG/DL eGFR (2020 CKD-EPI) (test co de = 42826) 59 ML/MIN/1.73 SODIUM (test code = 2231) 138 MEQ/L POTASSIUM (test code = 2228) 4.0 MEQ/L CHLORIDE (test code = 2215) 97 MEQ/L CARBON DIOXIDE (test code = 2206) 30 MEQ/L CALCIUM (test code = 2209) 9.3 MG/DL Surendra WhiteHEMOGLOBIN [id number] 00:00:00* Test Item Value Reference Range Interpretation Comme [facility] HEMOGLOBIN A1c (test code = 59763) 8.2 % Surendra Ross GoehnerPOCT GLUCOSE (AUTOMATED)2022-11-07 17:24:33* Test Item Value Reference Range Interpretation Comme [facility] POCT GLU (test code = 5156132214) 245 mg/dL 70-110 H Lab Interpretation (test cod e = 06447-9) [facility]OMATED)2022-11-07 13:37:51* Test Item Value Reference Range Interpretation Comme [facility] POCT GLU (test code = 8823582704) 191 mg/dL 70-110 H Lab Interpretation (test cod e = 59863-7) Abnormal [facility] WITH [id number] 09:42:55* Test Item Value Reference Range Interpretation Comme [facility] WBC (test code = 6690-2) 7.12 See_Comment [...] 31.9 g/dL 31.6-35.1 RDW-SD (test code = 38913-9) 49.3 fL 39.0-49.9 RDW-CV (test code = 788-0) 15.7 % 12.0-15.5 H PLT (test code = 777-3) 308 See_Comment [Automated messa ge] The system which generated this result transmitted reference range: 166 - 358 10*3/?L. The reference range was not used to interpret this result as normal/abnormal. MPV (test code = 51884-1) 9.7 fL 9.5-12.9 NRBC/100 WBC (test code = 6757118007) 0.0 See_Comment [Automated me ssage] The system which generated this result transmitted reference range: 0.0 - 10.0 /100 WBCs. The reference range was not used to interpret this result as normal/abnormal. NRBC x10^3 (test code = 2376669611) See_Comment [Automated messa ge] The system which generated this result transmitted reference range: 10*3/?L. The reference range was not used to interpret this result as normal/abnormal. GRAN MAT (NEUT) % (test code = 770-8) 54.6 % IMM GRAN % (test code = 6007154508) 0.40 % LYMPH % (test code = 736-9) 26.3 % MONO % (test code = 5905-5) 12.2 % EOS % (test code = 713-8) 5.8 % BASO % (test code = 706-2) 0.7 % GRAN MAT x10^3(ANC) (test code = 0948296580) 3.89 10*3/uL 1.88-7.09 IMM GRAN x10^3 (test code = 8748645467) 0.03 10*3/uL 0.00-0.06 LYMPH x10^3 (test code = 731-0) 1.87 10*3/uL 1.32-3.29 MONO x10^3 (test code = 742-7) 0.87 10*3/uL 0.33-0.92 EOS x10^3 (test code = 711-2) 0.41 10*3/uL 0.03-0.39 H BASO x10^3 (test code = 704-7) 0.05 10*3/uL 0.01-0.07 Lab Interpretation (test code = 85357-8) Abnormal [facility] GLUCOSE (AUTOMATED)2022-11-07 01:42:02* Test Item Value Reference Range Interpretation Comme nts POCT GLU (test code = 7565731070) 310 mg/dL 70-110 H Lab Interpretation (test cod e = 07177-5) Abnormal [facility] GLUCOSE (AUTOMATED)2022-11-06 23:01:23* Test Item Value Reference Range Interpretation Comme nts POCT GLU (test code = 6542627395) 230 mg/dL 70-110 H Lab Interpretation (test cod e = 61400-4) Abnormal [facility] GLUCOSE (AUTOMATED)2022-11-06 17:54:33* Test Item Value Reference Range Interpretation Comme nts POCT GLU (test code = 2923660175) 268 mg/dL 70-110 H Lab Interpretation (test cod e = 49367-2) Abnormal [facility] GLUCOSE (AUTOMATED)2022-11-06 13:26:49* Test Item Value Reference Range Interpretation Comme nts POCT GLU (test code = 9963078854) 170 mg/dL 70-110 H Lab Interpretation (test cod e = 04578-8) Abnormal [facility] GLUCOSE (AUTOMATED)2022-11-06 01:36:25* Test Item Value Reference Range Interpretation Comme nts POCT GLU (test code = 6231741643) 144 mg/dL 70-110 H Lab Interpretation (test cod e = 92978-9) Abnormal [facility] GLUCOSE (AUTOMATED)2022-11-05 22:41:21* Test Item Value Reference Range Interpretation Comme nts POCT GLU (test code = 3073474878) 261 mg/dL 70-110 H Lab Interpretation (test cod e = 15175-6) Abnormal [facility] GLUCOSE (AUTOMATED)2022-11-05 17:39:23* Test Item Value Reference Range Interpretation Comme nts POCT GLU (test code = 6126100236) 270 mg/dL 70-110 H Lab Interpretation (test cod e = 83219-0) Abnormal [facility] GLUCOSE (AUTOMATED)2022-11-05 12:21:21* Test Item Value Reference Range Interpretation Comme nts POCT GLU (test code = 1408312128) 186 mg/dL 70-110 H Lab Interpretation (test cod e = 21628-3) Abnormal [facility] GLUCOSE (AUTOMATED)2022-11-05 02:03:22* Test Item Value Reference Range Interpretation Comme nts POCT GLU (test code = 8522170838) 250 mg/dL 70-110 H Lab Interpretation (test cod e = 05050-5) Abnormal [facility] GLUCOSE (AUTOMATED)2022-11-04 21:12:00* Test Item Value Reference Range Interpretation Comme nts POCT GLU (test code = 3673585502) 277 mg/dL 70-110 H Lab Interpretation (test cod e = 60816-9) Abnormal [facility] GLUCOSE (AUTOMATED)2022-11-04 16:26:05* Test Item Value Reference Range Interpretation Comme nts POCT GLU (test code = 2418948463) 265 mg/dL 70-110 H Lab Interpretation (test cod e = 49670-4) Abnormal [facility] GLUCOSE (AUTOMATED)2022-11-04 12:44:23* Test Item Value Reference Range Interpretation Comme nts POCT GLU (test code = 5738367435) 209 mg/dL 70-110 H Lab Interpretation (test cod e = 93158-4) Abnormal [facility] METABOLIC PANEL (NA, K, CL, CO2, GLUCOSE, BUN, CREATININE, CA)2022-11-04 09:47:25* Test Item Value Reference Range Interpretation Comme nts NA (test code = 0447729210) 130 mmol/L 135-145 L K (test code = 1301116791) 3.7 mmol/L 3.5-5.0 CL (test code = 4562846679) 88 mmol/L 98-108 L CO2 TOTAL (test code = 8163767963) 36 mmol/L 23-31 H AGAP (test code = 4604598949) 6 2-16 BUN (test code = 3536796782) 40 mg/dL 7-23 H GLUCOSE (test code = 6647777408) 203 mg/dL 70-110 H CREATININE (test code = 3656284025) 0.98 mg/dL 0.50-1.04 CALCIUM (test code = 2073198086) 9.1 mg/dL 8.6-10.6 eGFR (test code = 9513958413) 55.0 mL/min/1.73m2 LOW (test code = LOW) [...] imaging tests). Lab Interpretation (test code = 32114-6) Abnormal [facility] WITH [id number] 09:20:24* Test Item Value Reference Range Interpretation Comme nts WBC (test code = 6690-2) 8.24 See_Comment [Automated [employer]] The system which generated this result transmitted reference range: 4.30 - 11.10 10*3/?L. The reference range was not used to interpret this result as normal/abnormal. RBC (test code = 789-8) 3.60 See_Comment L [Automated [employer]] The system which generated this result transmitted [...] 31.9 g/dL 31.6-35.1 RDW-SD (test code = 40587-0) 48.3 fL 39.0-49.9 RDW-CV (test code = 788-0) 15.7 % 12.0-15.5 H PLT (test code = 777-3) 248 See_Comment [Automated [employer]] The system which generated this result transmitted reference range: 166 - 358 10*3/?L. The reference range was not used to interpret this result as normal/abnormal. MPV (test code = 61844-4) 9.3 fL 9.5-12.9 L NRBC/100 WBC (test code = 3325720476) 0.0 See_Comment [Automated [employer] ssage] The system which generated this result transmitted reference range: 0.0 - 10.0 /100 WBCs. The reference range was not used to interpret this result as normal/abnormal. NRBC x10^3 (test code = 8879607660) See_Comment [Automated [employer]] The system which generated this result transmitted reference range: 10*3/?L. The reference range was not used to interpret this result as normal/abnormal. GRAN MAT (NEUT) % (test code = 770-8) 62.5 % IMM GRAN % (test code = 3012966290) 0.50 % LYMPH % (test code = 736-9) 21.0 % MONO % (test code = 5905-5) 11.7 % EOS % (test code = 713-8) 3.9 % BASO % (test code = 706-2) 0.4 % GRAN MAT x10^3(ANC) (test code = 2706144830) 5.16 10*3/uL 1.88-7.09 IMM GRAN x10^3 (test code = 9854162495) 0.04 10*3/uL 0.00-0.06 LYMPH x10^3 (test code = 731-0) 1.73 10*3/uL 1.32-3.29 MONO x10^3 (test code = 742-7) 0.96 10*3/uL 0.33-0.92 H EOS x10^3 (test code = 711-2) 0.32 10*3/uL 0.03-0.39 BASO x10^3 (test code = 704-7) 0.03 10*3/uL 0.01-0.07 Lab Interpretation (test code = 60493-0) Abnormal [facility] GLUCOSE (AUTOMATED)2022-11-04 01:26:31* Test Item Value Reference Range Interpretation Comme nts POCT GLU (test code = 6422940470) 284 mg/dL 70-110 H Lab Interpretation (test cod e = 82948-1) Abnormal [facility] GLUCOSE (AUTOMATED)2022-11-03 22:20:13* Test Item Value Reference Range Interpretation Comme nts POCT GLU (test code = 2443402095) 323 mg/dL 70-110 H Lab Interpretation (test cod e = 59541-8) Abnormal [facility] GLUCOSE (AUTOMATED)2022-11-03 16:39:32* Test Item Value Reference Range Interpretation Comme nts POCT GLU (test code = 8445857463) 293 mg/dL 70-110 H Lab Interpretation (test cod e = 72699-0) Abnormal [facility] GLUCOSE (AUTOMATED)2022-11-03 12:47:29* Test Item Value Reference Range Interpretation Comme nts POCT GLU (test code = 3168832887) 220 mg/dL 70-110 H Lab Interpretation (test cod e = 19147-1) Abnormal [facility] GLUCOSE (AUTOMATED)2022-11-03 01:43:07* Test Item Value Reference Range Interpretation Comme nts POCT GLU (test code = 4968927276) 277 mg/dL 70-110 H Lab Interpretation (test cod e = 24824-6) Abnormal [facility] GLUCOSE (AUTOMATED)2022-11-02 21:08:43* Test Item Value Reference Range Interpretation Comme nts POCT GLU (test code = 1743602201) 191 mg/dL 70-110 H Lab Interpretation (test cod e = 47706-3) Abnormal [facility] GLUCOSE (AUTOMATED)2022-11-02 16:08:02* Test Item Value Reference Range Interpretation Comme nts POCT GLU (test code = 5249658515) 235 mg/dL 70-110 H Lab Interpretation (test cod e = 16965-4) [facility] 12:38:18* Test Item Value Reference Range Interpretation Comme nts POCT GLU (test code = 8356341936) 210 mg/dL 70-110 H Lab Interpretation (test cod e = 96329-4) [facility] 01:45:15* Test Item Value Reference Range Interpretation Comme nts POCT GLU (test code = 6482261496) 268 mg/dL 70-110 H Lab Interpretation (test cod e = 72510-6) Abnormal [facility] GLUCOSE (AUTOMATED)2022-11-01 20:58:38* Test Item Value Reference Range Interpretation Comme nts POCT GLU (test code = 2769251692) 264 mg/dL 70-110 H Lab Interpretation (test cod e = 57753-2) Abnormal [facility] GLUCOSE (AUTOMATED)2022-11-01 16:44:08* Test Item Value Reference Range Interpretation Comme nts POCT GLU (test code = 4439370681) 329 mg/dL 70-110 H Lab Interpretation (test cod e = 92825-2) [facility] 12:40:28* Test Item Value Reference Range Interpretation Comme nts POCT GLU (test code = 4959136614) 185 mg/dL 70-110 H Lab Interpretation (test cod e = 90462-9) [facility] 01:53:10* Test Item Value Reference Range Interpretation Comme nts POCT GLU (test code = 6692376370) 274 mg/dL 70-110 H Lab Interpretation (test cod e = 44419-7) Abnormal [facility] GLUCOSE (AUTOMATED)2022-11-01 01:53:10* Test Item Value Reference Range Interpretation Comme nts POCT GLU (test code = 2020394945) 274 mg/dL 70-110 H Lab Interpretation (test cod e = 23751-2) [id number] 21:06:31* Test Item Value Reference Range Interpretation Comme nts ACTLR (test code = 9051566841) 303 See_Comment H [Automated messa ge] The system which generated this result transmitted reference range: 89 - 169 Seconds. The reference range was not used to interpret this result as normal/abnormal. Lab Interpretation (test code = 41027-1) Abnormal [facility] ACT LOW [id number] 21:06:31* Test Item Value Reference Range Interpretation Comme nts ACTLR (test code = 1451261199) 294 See_Comment H [Automated messa ge] The system which generated this result transmitted reference range: 89 - 169 Seconds. The reference range was not used to interpret this result as normal/abnormal. Lab Interpretation (test code = 67644-1) Abnormal [facility] ACT LOW [id number] 21:06:31* Test Item Value Reference Range Interpretation Comme nts ACTLR (test code = 3775783396) 274 See_Comment H [Automated messa ge] The system which generated this result transmitted reference range: 89 - 169 Seconds. The reference range was not used to interpret this result as normal/abnormal. Lab Interpretation (test code = 89324-0) Abnormal [facility] ACT LOW [id number] 21:06:31* Test Item Value Reference Range Interpretation Comme nts ACTLR (test code = 5843685853) 303 See_Comment H [Automated messa ge] The system which generated this result transmitted reference range: 89 - 169 Seconds. The reference range was not used to interpret this result as normal/abnormal. Lab Interpretation (test code = 30434-6) Abnormal [facility] ACT LOW [id number] 21:06:31* Test Item Value Reference Range Interpretation Comme nts ACTLR (test code = 9234857990) 294 See_Comment H [Automated messa ge] The system which generated this result transmitted reference range: 89 - 169 Seconds. The reference range was not used to interpret this result as normal/abnormal. Lab Interpretation (test code = 12576-3) [facility] [id number] 21:06:31* Test Item Value Reference Range Interpretation Comme nts ACTLR (test code = 1113325884) 274 See_Comment H [Automated messa ge] The system which generated this result transmitted reference range: 89 - 169 Seconds. The reference range was not used to interpret this result as normal/abnormal. Lab Interpretation (test code = 92131-3) Abnormal [facility] ACT LOW [id number] 21:06:26* Test Item Value Reference Range Interpretation Comme nts ACTLR (test code = 2171306674) 283 See_Comment H [Automated messa ge] The system which generated this result transmitted reference range: 89 - 169 Seconds. The reference range was not used to interpret this result as normal/abnormal. Lab Interpretation (test code = 10448-4) Abnormal [facility] ACT LOW [id number] 21:06:26* Test Item Value Reference Range Interpretation Comme nts ACTLR (test code = 7279729194) 269 See_Comment H [Automated messa ge] The system which generated this result transmitted reference range: 89 - 169 Seconds. The reference range was not used to interpret this result as normal/abnormal. Lab Interpretation (test code = 45141-8) Abnormal [facility] ACT LOW [id number] 21:06:26* Test Item Value Reference Range Interpretation Comme nts ACTLR (test code = 9714598030) 283 See_Comment H [Automated messa ge] The system which generated this result transmitted reference range: 89 - 169 Seconds. The reference range was not used to interpret this result as normal/abnormal. Lab Interpretation (test code = 72256-4) Abnormal [facility] ACT LOW [id number] 21:06:26* Test Item Value Reference Range Interpretation Comme nts ACTLR (test code = 5637559960) 269 See_Comment H [Automated messa ge] The system which generated this result transmitted reference range: 89 - 169 Seconds. The reference range was not used to interpret this result as normal/abnormal. Lab Interpretation (test code = 74167-8) Abnormal [facility] GLUCOSE (AUTOMATED)2022-10-31 12:34:49* Test Item Value Reference Range Interpretation Comme nts POCT GLU (test code = 1189548435) 170 mg/dL 70-110 H Lab Interpretation (test cod e = 52891-1) Abnormal [facility] GLUCOSE (AUTOMATED)2022-10-31 12:34:49* Test Item Value Reference Range Interpretation Comme nts POCT GLU (test code = 1175852955) 170 mg/dL 70-110 H Lab Interpretation (test cod e = 13802-3) Abnormal [facility] GLUCOSE (AUTOMATED)2022-10-31 02:14:46* Test Item Value Reference Range Interpretation Comme nts POCT GLU (test code = 6130957274) 166 mg/dL 70-110 H Lab Interpretation (test cod e = 58543-3) Abnormal [facility] GLUCOSE (AUTOMATED)2022-10-31 02:14:46* Test Item Value Reference Range Interpretation Comme nts POCT GLU (test code = 8522139579) 166 mg/dL 70-110 H Lab Interpretation (test cod e = 43499-1) [facility] Drip[facility]2022-10-30 23:39:20* Test Item Value Reference Range Interpretation Comme nts APTT Patient (test code = 3173-2) 88 See_Comment H [Automated messa ge] The system which generated this result transmitted reference range: 26 - 36 Seconds. The reference range was not used to interpret this result as normal/abnormal. Lab Interpretation (test code = 12302-2) [facility] use with Heparin Drip[facility]2022-10-30 23:39:20* Test Item Value Reference Range Interpretation Comme nts APTT Patient (test code = 3173-2) 88 See_Comment H [Automated messa ge] The system which generated this result transmitted reference range: 26 - 36 Seconds. The reference range was not used to interpret this result as normal/abnormal. Lab Interpretation (test code = 10755-7) Abnormal [facility] GLUCOSE (AUTOMATED)2022-10-30 21:50:55* Test Item Value Reference Range Interpretation Comme nts POCT GLU (test code = 5838230882) 180 mg/dL 70-110 H Lab Interpretation (test cod e = 35951-5) Abnormal [facility] GLUCOSE (AUTOMATED)2022-10-30 21:50:55* Test Item Value Reference Range Interpretation Comme nts POCT GLU (test code = 6488092391) 180 mg/dL 70-110 H Lab Interpretation (test cod e = 65644-4) [facility]2022-10-30 19:48:00* Test Item Value Reference Range Interpretation Comme nts ABO & RH (test code = 20) [facility]2022-10-30 19:48:00* Test Item Value Reference Range Interpretation Comme nts ABO & RH (test code = 20) A [facility] - ONCE [id number] 18:48:00* Test Item Value Reference Range Interpretation Comme nts ABO & RH (test code = 20) A Positive IAT (test code = 1185) Negative [facility] - [facility]CE [id number] 18:48:00* Test Item Value Reference Range Interpretation Comme nts ABO & RH (test code = 20) A Positive IAT (test code = 1185) Negative [facility] GLUCOSE (AUTOMATED)2022-10-30 17:07:23* Test Item Value Reference Range Interpretation Comme nts POCT GLU (test code = 1918282261) 325 mg/dL 70-110 H Lab Interpretation (test cod e = 85522-5) [facility]2022-10-30 17:07:23* Test Item Value Reference Range Interpretation Comme nts POCT GLU (test code = 3935201521) 325 mg/dL 70-110 H Lab Interpretation (test cod e = 15455-3) [facility]for use with Heparin Drip)2022-10-30 14:54:43* Test Item Value Reference Range Interpretation Comme nts APTT Patient (test code = 3173-2) 41 See_Comment H [Automated [employer]] The system which generated this result transmitted reference range: 26 - 36 Seconds. The reference range was not used to interpret this result as normal/abnormal. Lab Interpretation (test code = 29391-3) [facility]for use with Heparin Drip)2022-10-30 14:54:43* Test Item Value Reference Range Interpretation Comme nts APTT Patient (test code = 3173-2) 41 See_Comment H [Automated [employer]] The system which generated this result transmitted reference range: 26 - 36 Seconds. The reference range was not used to interpret this result as normal/abnormal. Lab Interpretation (test code = 74478-6) Abnormal [facility] GLUCOSE (AUTOMATED)2022-10-30 13:36:28* Test Item Value Reference Range Interpretation Comme [facility] POCT GLU (test code = 4646867087) 240 mg/dL 70-110 H Lab Interpretation (test cod e = 99550-4) Abnormal [facility] GLUCOSE (AUTOMATED)2022-10-30 13:36:28* Test Item Value Reference Range Interpretation Comme [facility] POCT GLU (test code = 7054644558) 240 mg/dL 70-110 H Lab Interpretation (test cod e = 46498-0) Abnormal [facility] METABOLIC PANEL (NA, K, CL, CO2, GLUCOSE, BUN, CREATININE, CA)2022-10-30 10:16:01* Test Item Value Reference Range Interpretation Comme [facility] NA (test code = 8206572596) 132 mmol/L 135-145 L K (test code = 4022612831) 3.9 mmol/L 3.5-5.0 CL (test code = 0442586482) 93 mmol/L 98-108 L CO2 TOTAL (test code = 4577455704) 39 mmol/L 23-31 H AGAP (test code = 4129713221) 2-16 L BUN (test code = 0562004653) 25 mg/dL 7-23 H GLUCOSE (test code = 9410906435) 236 mg/dL 70-110 H CREATININE (test code = 4292607752) 0.78 mg/dL 0.50-1.04 CALCIUM (test code = 2301302011) 9.2 mg/dL 8.6-10.6 eGFR (test code = 6595733851) 71.6 mL/min/1.73m2 LOW (test code = LOW) [...] imaging tests). Lab Interpretation (test code = 30470-1) Abnormal [facility] METABOLIC PANEL (NA, K, CL, CO2, GLUCOSE, BUN, CREATININE, CA)2022-10-30 10:16:01* Test Item Value Reference Range Interpretation Comme nts NA (test code = 7366131703) 132 mmol/L 135-145 L K (test code = 9527275269) 3.9 mmol/L 3.5-5.0 CL (test code = 0902864003) 93 mmol/L 98-108 L CO2 TOTAL (test code = 1348495010) 39 mmol/L 23-31 H AGAP (test code = 5586266110) 2-16 L BUN (test code = 8321624571) 25 mg/dL 7-23 H GLUCOSE (test code = 2139879273) 236 mg/dL 70-110 H CREATININE (test code = 1598366925) 0.78 mg/dL 0.50-1.04 CALCIUM (test code = 4089396200) 9.2 mg/dL 8.6-10.6 eGFR (test code = 9578064449) 71.6 mL/min/1.73m2 LOW (test code = LOW) [...] imaging tests). Lab Interpretation (test code = 58736-4) Abnormal [facility] WITH [id number] 10:02:20* Test Item Value Reference Range Interpretation Comme nts WBC (test code = 6690-2) 9.92 See_Comment [Automated [employer]] The system which generated this result transmitted reference range: 4.30 - 11.10 10*3/?L. The reference range was not used to interpret this result as normal/abnormal. RBC (test code = 789-8) 3.93 See_Comment [Automated [employer]] The system which generated this result transmitted [...] g/dL 31.6-35.1 L RDW-SD (test code = 61256-6) 50.5 fL 39.0-49.9 H RDW-CV (test code = 788-0) 15.7 % 12.0-15.5 H PLT (test code = 777-3) 269 See_Comment [Automated [employer]] The system which generated this result transmitted reference range: 166 - 358 10*3/?L. The reference range was not used to interpret this result as normal/abnormal. MPV (test code = 65174-2) 9.4 fL 9.5-12.9 L NRBC/100 WBC (test code = 0721252400) 0.0 See_Comment [Automated [employer]age] The system which generated this result transmitted reference range: 0.0 - 10.0 /100 WBCs. The reference range was not used to interpret this result as normal/abnormal. NRBC x10^3 (test code = 1991250741) See_Comment [Automated [employer]] The system which generated this result transmitted reference range: 10*3/?L. The reference range was not used to interpret this result as normal/abnormal. GRAN MAT (NEUT) % (test code = 770-8) 67.0 % IMM GRAN % (test code = 7177147353) 0.40 % LYMPH % (test code = 736-9) 19.3 % MONO % (test code = 5905-5) 10.1 % EOS % (test code = 713-8) 3.0 % BASO % (test code = 706-2) 0.2 % GRAN MAT x10^3(ANC) (test code = 0828182256) 6.65 10*3/uL 1.88-7.09 IMM GRAN x10^3 (test code = 4590861931) 0.04 10*3/uL 0.00-0.06 LYMPH x10^3 (test code = 731-0) 1.91 10*3/uL 1.32-3.29 MONO x10^3 (test code = 742-7) 1.00 10*3/uL 0.33-0.92 H EOS x10^3 (test code = 711-2) 0.30 10*3/uL 0.03-0.39 BASO x10^3 (test code = 704-7) 0.01-0.07 Lab Interpretation (test code = 97446-5) Abnormal [facility] WITH [id number] 10:02:20* Test Item Value Reference Range Interpretation Comme nts WBC (test code = 6690-2) 9.92 See_Comment [Automated [employer]] The system which generated this result transmitted reference range: 4.30 - 11.10 10*3/?L. The reference range was not used to interpret this result as normal/abnormal. RBC (test code = 789-8) 3.93 See_Comment [Automated [employer]] The system which generated this result transmitted [...] g/dL 31.6-35.1 L RDW-SD (test code = 16056-2) 50.5 fL 39.0-49.9 H RDW-CV (test code = 788-0) 15.7 % 12.0-15.5 H PLT (test code = 777-3) 269 See_Comment [Automated [employer]] The system which generated this result transmitted reference range: 166 - 358 10*3/?L. The reference range was not used to interpret this result as normal/abnormal. MPV (test code = 10922-9) 9.4 fL 9.5-12.9 L NRBC/100 WBC (test code = 4064199310) 0.0 See_Comment [Automated me ssage] The system which generated this result transmitted reference range: 0.0 - 10.0 /100 WBCs. The reference range was not used to interpret this result as normal/abnormal. NRBC x10^3 (test code = 5000252864) See_Comment [Automated messa ge] The system which generated this result transmitted reference range: 10*3/?L. The reference range was not used to interpret this result as normal/abnormal. GRAN MAT (NEUT) % (test code = 770-8) 67.0 % IMM GRAN % (test code = 3676405137) 0.40 % LYMPH % (test code = 736-9) 19.3 % MONO % (test code = 5905-5) 10.1 % EOS % (test code = 713-8) 3.0 % BASO % (test code = 706-2) 0.2 % GRAN MAT x10^3(ANC) (test code = 7155265987) 6.65 10*3/uL 1.88-7.09 IMM GRAN x10^3 (test code = 0729232942) 0.04 10*3/uL 0.00-0.06 LYMPH x10^3 (test code = 731-0) 1.91 10*3/uL 1.32-3.29 MONO x10^3 (test code = 742-7) 1.00 10*3/uL 0.33-0.92 H EOS x10^3 (test code = 711-2) 0.30 10*3/uL 0.03-0.39 BASO x10^3 (test code = 704-7) 0.01-0.07 Lab Interpretation (test code = 81498-2) Abnormal [facility] GLUCOSE (AUTOMATED)2022-10-30 01:09:15* Test Item Value Reference Range Interpretation Comme [facility] POCT GLU (test code = 7106390855) 166 mg/dL 70-110 H Lab Interpretation (test cod e = 61906-7) Abnormal [facility] GLUCOSE (AUTOMATED)2022-10-30 01:09:15* Test Item Value Reference Range Interpretation Comme nts POCT GLU (test code = 4999018029) 166 mg/dL 70-110 H Lab Interpretation (test cod e = 00523-3) [facility] 00:55:01* Test Item Value Reference Range Interpretation Comme nts APTT Patient (test code = 3173-2) 60 See_Comment H [Automated messa ge] The system which generated this result transmitted reference range: 26 - 36 Seconds. The reference range was not used to interpret this result as normal/abnormal. Lab Interpretation (test code = 68124-5) Abnormal [facility] (for use with Heparin Drip)2022-10-30 00:55:01* Test Item Value Reference Range Interpretation Comme nts APTT Patient (test code = 3173-2) 60 See_Comment H [Automated messa ge] The system which generated this result transmitted reference range: 26 - 36 Seconds. The reference range was not used to interpret this result as normal/abnormal. Lab Interpretation (test code = 87319-6) Abnormal [facility] GLUCOSE (AUTOMATED)2022-10-29 22:04:12* Test Item Value Reference Range Interpretation Comme nts POCT GLU (test code = 8761196958) 204 mg/dL 70-110 H Lab Interpretation (test cod e = 20134-2) Abnormal [facility] GLUCOSE (AUTOMATED)2022-10-29 22:04:12* Test Item Value Reference Range Interpretation Comme nts POCT GLU (test code = 5512355980) 204 mg/dL 70-110 H Lab Interpretation (test cod e = 62787-2) Abnormal [facility] (for use with Heparin Drip)2022-10-29 17:21:28* Test Item Value Reference Range Interpretation Comme nts APTT Patient (test code = 3173-2) 46 See_Comment H [Automated messa ge] The system which generated this result transmitted reference range: 26 - 36 Seconds. The reference range was not used to interpret this result as normal/abnormal. Lab Interpretation (test code = 43084-8) [facility] 17:21:28* Test Item Value Reference Range Interpretation Comme nts APTT Patient (test code = 3173-2) 46 See_Comment H [Automated messa ge] The system which generated this result transmitted reference range: 26 - 36 Seconds. The reference range was not used to interpret this result as normal/abnormal. Lab Interpretation (test code = 95464-2) Abnormal [facility] GLUCOSE (AUTOMATED)2022-10-29 16:42:16* Test Item Value Reference Range Interpretation Comme nts POCT GLU (test code = 8521254818) 216 mg/dL 70-110 H Lab Interpretation (test cod e = 65516-1) Abnormal [facility] GLUCOSE (AUTOMATED)2022-10-29 16:42:16* Test Item Value Reference Range Interpretation Comme nts POCT GLU (test code = 6205482393) 216 mg/dL 70-110 H Lab Interpretation (test cod e = 73069-4) Abnormal [facility] GLUCOSE (AUTOMATED)2022-10-29 13:05:32* Test Item Value Reference Range Interpretation Comme nts POCT GLU (test code = 2400381161) 218 mg/dL 70-110 H Lab Interpretation (test cod e = 09038-8) Abnormal [facility] GLUCOSE (AUTOMATED)2022-10-29 13:05:32* Test Item Value Reference Range Interpretation Comme nts POCT GLU (test code = 1373513579) 218 mg/dL 70-110 H Lab Interpretation (test cod e = 95069-9) [facility] [id number] 05:13:07* Test Item Value Reference Range Interpretation Comme nts APTT Patient (test code = 3173-2) 79 See_Comment H [Automated messa ge] The system which generated this result transmitted reference range: 26 - 36 Seconds. The reference range was not used to interpret this result as normal/abnormal. Lab Interpretation (test code = 00457-1) [facility] [id number] 05:13:07* Test Item Value Reference Range Interpretation Comme nts APTT Patient (test code = 3173-2) 79 See_Comment H [Automated messa ge] The system which generated this result transmitted reference range: 26 - 36 Seconds. The reference range was not used to interpret this result as normal/abnormal. Lab Interpretation (test code = 11796-6) Abnormal [facility] GLUCOSE (AUTOMATED)2022-10-29 01:37:17* Test Item Value Reference Range Interpretation Comme nts POCT GLU (test code = 0265156733) 162 mg/dL 70-110 H Lab Interpretation (test cod e = 56987-2) Abnormal [facility] GLUCOSE (AUTOMATED)2022-10-29 01:37:17* Test Item Value Reference Range Interpretation Comme nts POCT GLU (test code = 2573456557) 162 mg/dL 70-110 H Lab Interpretation (test cod e = 30548-4) Abnormal [facility] GLUCOSE (AUTOMATED)2022-10-29 01:37:17* Test Item Value Reference Range Interpretation Comme nts POCT GLU (test code = 1610882551) 162 mg/dL 70-110 H Lab Interpretation (test cod e = 02121-5) Abnormal [facility] GLUCOSE (AUTOMATED)2022-10-28 22:17:08* Test Item Value Reference Range Interpretation Comme nts POCT GLU (test code = 1383960886) 183 mg/dL 70-110 H Lab Interpretation (test cod e = 98305-8) Abnormal [facility] GLUCOSE (AUTOMATED)2022-10-28 22:17:08* Test Item Value Reference Range Interpretation Comme nts POCT GLU (test code = 4656476471) 183 mg/dL 70-110 H Lab Interpretation (test cod e = 86982-7) Abnormal [facility] GLUCOSE (AUTOMATED)2022-10-28 22:17:08* Test Item Value Reference Range Interpretation Comme nts POCT GLU (test code = 1091539421) 183 mg/dL 70-110 H Lab Interpretation (test cod e = 86952-3) Abnormal [facility] ACT LOW [id number] 19:02:30* Test Item Value Reference Range Interpretation Comme nts ACTLR (test code = 0036133646) 201 See_Comment H [Automated messa ge] The system which generated this result transmitted reference range: 89 - 169 Seconds. The reference range was not used to interpret this result as normal/abnormal. Lab Interpretation (test code = 90968-7) Abnormal [facility] ACT LOW [id number] 19:02:30* Test Item Value Reference Range Interpretation Comme nts ACTLR (test code = 7544943872) 201 See_Comment H [Automated messa ge] The system which generated this result transmitted reference range: 89 - 169 Seconds. The reference range was not used to interpret this result as normal/abnormal. Lab Interpretation (test code = 39003-6) Abnormal [facility] ACT LOW [id number] 19:02:30* Test Item Value Reference Range Interpretation Comme nts ACTLR (test code = 3478564829) 201 See_Comment H [Automated messa ge] The system which generated this result transmitted reference range: 89 - 169 Seconds. The reference range was not used to interpret this result as normal/abnormal. Lab Interpretation (test code = 91399-2) Abnormal [facility] GLUCOSE (AUTOMATED)2022-10-28 01:14:18* Test Item Value Reference Range Interpretation Comme nts POCT GLU (test code = 0400399916) 165 mg/dL 70-110 H Lab Interpretation (test cod e = 63546-5) Abnormal [facility] GLUCOSE (AUTOMATED)2022-10-28 01:14:18* Test Item Value Reference Range Interpretation Comme nts POCT GLU (test code = 0428151788) 165 mg/dL 70-110 H Lab Interpretation (test cod e = 42975-7) Abnormal [facility] GLUCOSE (AUTOMATED)2022-10-28 01:14:18* Test Item Value Reference Range Interpretation Comme nts POCT GLU (test code = 2708790626) 165 mg/dL 70-110 H Lab Interpretation (test cod e = 01177-4) Abnormal [facility] GLUCOSE (AUTOMATED)2022-10-27 22:59:53* Test Item Value Reference Range Interpretation Comme nts POCT GLU (test code = 8450802256) 222 mg/dL 70-110 H Lab Interpretation (test cod e = 89825-1) Abnormal [facility] GLUCOSE (AUTOMATED)2022-10-27 22:59:53* Test Item Value Reference Range Interpretation Comme nts POCT GLU (test code = 8162830862) 222 mg/dL 70-110 H Lab Interpretation (test cod e = 73282-1) Abnormal [facility] GLUCOSE (AUTOMATED)2022-10-27 22:59:53* Test Item Value Reference Range Interpretation Comme nts POCT GLU (test code = 6531596227) 222 mg/dL 70-110 H Lab Interpretation (test cod e = 70842-5) Abnormal [facility] GLUCOSE (AUTOMATED)2022-10-27 21:51:22* Test Item Value Reference Range Interpretation Comme nts POCT GLU (test code = 5585611164) 230 mg/dL 70-110 H Lab Interpretation (test cod e = 46459-4) Abnormal [facility] GLUCOSE (AUTOMATED)2022-10-27 21:51:22* Test Item Value Reference Range Interpretation Comme nts POCT GLU (test code = 3585037206) 230 mg/dL 70-110 H Lab Interpretation (test cod e = 48027-2) Abnormal [facility] GLUCOSE (AUTOMATED)2022-10-27 21:51:22* Test Item Value Reference Range Interpretation Comme nts POCT GLU (test code = 8274182806) 230 mg/dL 70-110 H Lab Interpretation (test cod e = 78732-1) [facility] D[facility]2022-10-27 18:21:08* Test Item Value Reference Range Interpretation Comme nts APTT Patient (test code = 3173-2) 36 See_Comment [Automated messa ge] The system which generated this result transmitted reference range: 26 - 36 Seconds. The reference range was not used to interpret this result as normal/abnormal. Lab Interpretation (test code = 14724-3) [facility] use with Heparin Drip[facility]2022-10-27 18:21:08* Test Item Value Reference Range Interpretation Comme nts APTT Patient (test code = 3173-2) 36 See_Comment [Automated messa ge] The system which generated this result transmitted reference range: 26 - 36 Seconds. The reference range was not used to interpret this result as normal/abnormal. Lab Interpretation (test code = 90810-3) [facility] use with Heparin Drip[facility]2022-10-27 18:21:08* Test Item Value Reference Range Interpretation Comme nts APTT Patient (test code = 3173-2) 36 See_Comment [Automated messa ge] The system which generated this result transmitted reference range: 26 - 36 Seconds. The reference range was not used to interpret this result as normal/abnormal. Lab Interpretation (test code = 14709-1) Normal [facility] GLUCOSE (AUTOMATED)2022-10-27 17:46:56* Test Item Value Reference Range Interpretation Comme nts POCT GLU (test code = 7431460985) 286 mg/dL 70-110 H Lab Interpretation (test cod e = 57164-2) Abnormal [facility] GLUCOSE (AUTOMATED)2022-10-27 17:46:56* Test Item Value Reference Range Interpretation Comme nts POCT GLU (test code = 9438438494) 286 mg/dL 70-110 H Lab Interpretation (test cod e = 18843-0) Abnormal [facility] GLUCOSE (AUTOMATED)2022-10-27 17:46:56* Test Item Value Reference Range Interpretation Comme nts POCT GLU (test code = 7626296336) 286 mg/dL 70-110 H Lab Interpretation (test cod e = 39674-8) Abnormal [facility] [id number] 15:38:10* Test Item Value Reference Range Interpretation Comme nts TROPONIN I (test code = 6862549356) 0.019 ng/mL <=0.034 LOW (test code = [...] of biotin. Lab Interpretation (test code = 90093-3) Normal [facility] [id number] 15:38:10* Test Item Value Reference Range Interpretation Comme nts TROPONIN I (test code = 6076689503) 0.019 ng/mL <=0.034 LOW (test code = LWO) Reference (Normal) Range (defined by the 99th [...] of biotin. Lab Interpretation (test code = 93460-5) Normal [facility] [id number] 15:38:10* Test Item Value Reference Range Interpretation Comme nts TROPONIN I (test code = 8533242454) 0.019 ng/mL <=0.034 LOW (test code = [...] of biotin. Lab Interpretation (test code = 63158-4) Normal [facility] GLUCOSE (AUTOMATED)2022-10-27 13:48:21* Test Item Value Reference Range Interpretation Comme nts POCT GLU (test code = 2841893744) 171 mg/dL 70-110 H Lab Interpretation (test cod e = 76811-6) Abnormal [facility] GLUCOSE (AUTOMATED)2022-10-27 13:48:21* Test Item Value Reference Range Interpretation Comme nts POCT GLU (test code = 2090114260) 171 mg/dL 70-110 H Lab Interpretation (test cod e = 85252-1) Abnormal [facility] GLUCOSE (AUTOMATED)2022-10-27 13:48:21* Test Item Value Reference Range Interpretation Comme nts POCT GLU (test code = 1143345031) 171 mg/dL 70-110 H Lab Interpretation (test cod e = 74335-7) Abnormal [facility] METABOLIC PANEL (NA, K, CL, CO2, GLUCOSE, BUN, CREATININE, CA)2022-10-27 10:01:02* Test Item Value Reference Range Interpretation Comme nts NA (test code = 6715420880) 136 mmol/L 135-145 K (test code = 2424658728) 3.7 mmol/L 3.5-5.0 CL (test code = 9661342557) 98 mmol/L 98-108 CO2 TOTAL (test code = 8067153097) 35 mmol/L 23-31 H AGAP (test code = 8818269270) 3 2-16 BUN (test code = 1524630307) 14 mg/dL 7-23 GLUCOSE (test code = 9074011407) 154 mg/dL 70-110 H CREATININE (test code = 1390615183) 0.54 mg/dL 0.50-1.04 CALCIUM (test code = 7481563055) 8.7 mg/dL 8.6-10.6 eGFR (test code = 8542334380) 109.5 mL/min/1.73m2 LOW (test code = LOW) [...] imaging tests). Lab Interpretation (test code = 31718-4) [facility] 10:01:02* Test Item Value Reference Range Interpretation Comme nts MAGNESIUM (test code = 0602618017) 1.8 mg/dL 1.7-2.4 Lab Interpretation (test cod e = 43200-8) [facility] (NA, K, CL, CO2, GLUCOSE, BUN, CREATININE, CA)2022-10-27 10:01:02* Test Item Value Reference Range Interpretation Comme nts NA (test code = 7703280138) 136 mmol/L 135-145 K (test code = 6063909222) 3.7 mmol/L 3.5-5.0 CL (test code = 8958734964) 98 mmol/L 98-108 CO2 TOTAL (test code = 8864479390) 35 mmol/L 23-31 H AGAP (test code = 1430806389) 3 2-16 BUN (test code = 5604527157) 14 mg/dL 7-23 GLUCOSE (test code = 1787699586) 154 mg/dL 70-110 H CREATININE (test code = 3077452430) 0.54 mg/dL 0.50-1.04 CALCIUM (test code = 6444682877) 8.7 mg/dL 8.6-10.6 eGFR (test code = 3242538447) 109.5 mL/min/1.73m2 LOW (test code = LOW) [...] imaging tests). Lab Interpretation (test code = 61453-7) [facility] 10:01:02* Test Item Value Reference Range Interpretation Comme nts MAGNESIUM (test code = 1608859074) 1.8 mg/dL 1.7-2.4 Lab Interpretation (test cod e = 34290-5) [facility] (NA, K, CL, CO2, GLUCOSE, BUN, CREATININE, CA)2022-10-27 10:01:02* Test Item Value Reference Range Interpretation Comme nts NA (test code = 5519457379) 136 mmol/L 135-145 K (test code = 8101226373) 3.7 mmol/L 3.5-5.0 CL (test code = 4169820232) 98 mmol/L 98-108 CO2 TOTAL (test code = 3094422574) 35 mmol/L 23-31 H AGAP (test code = 7054748040) 3 2-16 BUN (test code = 1728403837) 14 mg/dL 7-23 GLUCOSE (test code = 6182201109) 154 mg/dL 70-110 H CREATININE (test code = 0462341080) 0.54 mg/dL 0.50-1.04 CALCIUM (test code = 1503019251) 8.7 mg/dL 8.6-10.6 eGFR (test code = 4052399704) 109.5 mL/min/1.73m2 LOW (test code = LOW) [...] imaging tests). Lab Interpretation (test code = 57372-7) [facility] 10:01:02* Test Item Value Reference Range Interpretation Comme nts MAGNESIUM (test code = 7178663263) 1.8 mg/dL 1.7-2.4 Lab Interpretation (test cod e = 27151-6) Normal [facility] WITH [id number] 09:40:42* Test Item Value Reference Range Interpretation Comme nts WBC (test code = 6690-2) 7.06 See_Comment [Automated [employer]] The system which generated this result transmitted [...] g/dL 31.6-35.1 L RDW-SD (test code = 16279-6) 53.0 fL 39.0-49.9 H RDW-CV (test code = 788-0) 16.3 % 12.0-15.5 H PLT (test code = 777-3) 277 See_Comment [Automated messa ge] The system which generated this result transmitted reference range: 166 - 358 10*3/?L. The reference range was not used to interpret this result as normal/abnormal. MPV (test code = 09686-6) 9.6 fL 9.5-12.9 NRBC/100 WBC (test code = 8097179546) 0.0 See_Comment [Automated [employer] ssage] The system which generated this result transmitted reference range: 0.0 - 10.0 /100 WBCs. The reference range was not used to interpret this result as normal/abnormal. NRBC x10^3 (test code = 2288803879) See_Comment [Automated [employer]] The system which generated this result transmitted reference range: 10*3/?L. The reference range was not used to interpret this result as normal/abnormal. GRAN MAT (NEUT) % (test code = 770-8) 56.5 % IMM GRAN % (test code = 1781721399) 0.10 % LYMPH % (test code = 736-9) 29.5 % MONO % (test code = 5905-5) 10.8 % EOS % (test code = 713-8) 2.7 % BASO % (test code = 706-2) 0.4 % GRAN MAT x10^3(ANC) (test code = 5732218100) 3.99 10*3/uL 1.88-7.09 IMM GRAN x10^3 (test code = 6886443359) 0.00-0.06 LYMPH x10^3 (test code = 731-0) 2.08 10*3/uL 1.32-3.29 MONO x10^3 (test code = 742-7) 0.76 10*3/uL 0.33-0.92 EOS x10^3 (test code = 711-2) 0.19 10*3/uL 0.03-0.39 BASO x10^3 (test code = 704-7) 0.03 10*3/uL 0.01-0.07 Lab Interpretation (test code = 95655-2) Abnormal [facility] WITH [id number] 09:40:42* Test Item Value Reference Range Interpretation [...] g/dL 31.6-35.1 L RDW-SD (test code = 86163-7) 53.0 fL 39.0-49.9 H RDW-CV (test code = 788-0) 16.3 % 12.0-15.5 H PLT (test code = 777-3) 277 See_Comment [Automated messa ge] The system which generated this result transmitted reference range: 166 - 358 10*3/?L. The reference range was not used to interpret this result as normal/abnormal. MPV (test code = 40268-8) 9.6 fL 9.5-12.9 NRBC/100 WBC (test code = 3903829474) 0.0 See_Comment [Automated me ssage] The system which generated this result transmitted reference range: 0.0 - 10.0 /100 WBCs. The reference range was not used to interpret this result as normal/abnormal. NRBC x10^3 (test code = 9430807326) See_Comment [Automated messa ge] The system which generated this result transmitted reference range: 10*3/?L. The reference range was not used to interpret this result as normal/abnormal. GRAN MAT (NEUT) % (test code = 770-8) 56.5 % IMM GRAN % (test code = 5532304021) 0.10 % LYMPH % (test code = 736-9) 29.5 % MONO % (test code = 5905-5) 10.8 % EOS % (test code = 713-8) 2.7 % BASO % (test code = 706-2) 0.4 % GRAN MAT x10^3(ANC) (test code = 5716800617) 3.99 10*3/uL 1.88-7.09 IMM GRAN x10^3 (test code = 5012729200) 0.00-0.06 LYMPH x10^3 (test code = 731-0) 2.08 10*3/uL 1.32-3.29 MONO x10^3 (test code = 742-7) 0.76 10*3/uL 0.33-0.92 EOS x10^3 (test code = 711-2) 0.19 10*3/uL 0.03-0.39 BASO x10^3 (test code = 704-7) 0.03 10*3/uL 0.01-0.07 Lab Interpretation (test code = 26560-2) Abnormal [facility] WITH [id number] 09:40:42* Test Item Value Reference Range Interpretation [...] g/dL 31.6-35.1 L RDW-SD (test code = 18078-2) 53.0 fL 39.0-49.9 H RDW-CV (test code = 788-0) 16.3 % 12.0-15.5 H PLT (test code = 777-3) 277 See_Comment [Automated messa ge] The system which generated this result transmitted reference range: 166 - 358 10*3/?L. The reference range was not used to interpret this result as normal/abnormal. MPV (test code = 59851-3) 9.6 fL 9.5-12.9 NRBC/100 WBC (test code = 7199674680) 0.0 See_Comment [Automated [employer] ssage] The system which generated this result transmitted reference range: 0.0 - 10.0 /100 WBCs. The reference range was not used to interpret this result as normal/abnormal. NRBC x10^3 (test code = 2820501823) See_Comment [Automated messa ge] The system which generated this result transmitted reference range: 10*3/?L. The reference range was not used to interpret this result as normal/abnormal. GRAN MAT (NEUT) % (test code = 770-8) 56.5 % IMM GRAN % (test code = 1607540870) 0.10 % LYMPH % (test code = 736-9) 29.5 % MONO % (test code = 5905-5) 10.8 % EOS % (test code = 713-8) 2.7 % BASO % (test code = 706-2) 0.4 % GRAN MAT x10^3(ANC) (test code = 9977786478) 3.99 10*3/uL 1.88-7.09 IMM GRAN x10^3 (test code = 6839705874) 0.00-0.06 LYMPH x10^3 (test code = 731-0) 2.08 10*3/uL 1.32-3.29 MONO x10^3 (test code = 742-7) 0.76 10*3/uL 0.33-0.92 EOS x10^3 (test code = 711-2) 0.19 10*3/uL 0.03-0.39 BASO x10^3 (test code = 704-7) 0.03 10*3/uL 0.01-0.07 Lab Interpretation (test code = 51533-3) Abnormal [facility] GLUCOSE (AUTOMATED)2022-10-27 02:04:42* Test Item Value Reference Range Interpretation Comme nts POCT GLU (test code = 0995318285) 197 mg/dL 70-110 H Lab Interpretation (test cod e = 12733-8) Abnormal [facility] GLUCOSE (AUTOMATED)2022-10-27 02:04:42* Test Item Value Reference Range Interpretation Comme nts POCT GLU (test code = 6234106484) 197 mg/dL 70-110 H Lab Interpretation (test cod e = 05882-1) Abnormal [facility] GLUCOSE (AUTOMATED)2022-10-27 02:04:42* Test Item Value Reference Range Interpretation Comme nts POCT GLU (test code = 5367340393) 197 mg/dL 70-110 H Lab Interpretation (test cod e = 16598-4) [facility]NA, K, CL, CO2, GLUCOSE, BUN, CREATININE, CA)2022-10-26 22:22:34* Test Item Value Reference Range Interpretation Comme nts NA (test code = 8384627805) 136 mmol/L 135-145 K (test code = 8415092402) 3.8 mmol/L 3.5-5.0 CL (test code = 0332538874) 98 mmol/L 98-108 CO2 TOTAL (test code = 6266284850) 32 mmol/L 23-31 H AGAP (test code = 2681749046) 6 2-16 BUN (test code = 6719172040) 12 mg/dL 7-23 GLUCOSE (test code = 6187993836) 174 mg/dL 70-110 H CREATININE (test code = 7031820055) 0.52 mg/dL 0.50-1.04 CALCIUM (test code = 8330181970) 8.7 mg/dL 8.6-10.6 eGFR (test code = 5153629511) 114.3 mL/min/1.73m2 LOW (test code = LOW) [...] imaging tests). Lab Interpretation (test code = 31807-5) [facility] 22:22:34* Test Item Value Reference Range Interpretation Comme nts MAGNESIUM (test code = 8455792529) 1.5 mg/dL 1.7-2.4 L Lab Interpretation (test cod e = 82497-6) [facility] (NA, K, CL, CO2, GLUCOSE, BUN, CREATININE, CA)2022-10-26 22:22:34* Test Item Value Reference Range Interpretation Comme nts NA (test code = 9583041253) 136 mmol/L 135-145 K (test code = 1852555480) 3.8 mmol/L 3.5-5.0 CL (test code = 6884059092) 98 mmol/L 98-108 CO2 TOTAL (test code = 4568129215) 32 mmol/L 23-31 H AGAP (test code = 8686014047) 6 2-16 BUN (test code = 9335782675) 12 mg/dL 7-23 GLUCOSE (test code = 8337239967) 174 mg/dL 70-110 H CREATININE (test code = 5059874440) 0.52 mg/dL 0.50-1.04 CALCIUM (test code = 7137394923) 8.7 mg/dL 8.6-10.6 eGFR (test code = 4133466503) 114.3 mL/min/1.73m2 LOW (test code = LOW) [...] imaging tests). Lab Interpretation (test code = 57609-9) [facility] 22:22:34* Test Item Value Reference Range Interpretation Comme nts MAGNESIUM (test code = 8683200867) 1.5 mg/dL 1.7-2.4 L Lab Interpretation (test cod e = 21868-6) [facility] (NA, K, CL, CO2, GLUCOSE, BUN, CREATININE, CA)2022-10-26 22:22:34* Test Item Value Reference Range Interpretation Comme nts NA (test code = 1788709085) 136 mmol/L 135-145 K (test code = 7018501369) 3.8 mmol/L 3.5-5.0 CL (test code = 2318422481) 98 mmol/L 98-108 CO2 TOTAL (test code = 1844492810) 32 mmol/L 23-31 H AGAP (test code = 6235242003) 6 2-16 BUN (test code = 5437772754) 12 mg/dL 7-23 GLUCOSE (test code = 0554805663) 174 mg/dL 70-110 H CREATININE (test code = 0274687327) 0.52 mg/dL 0.50-1.04 CALCIUM (test code = 7690124854) 8.7 mg/dL 8.6-10.6 eGFR (test code = 6840779299) 114.3 mL/min/1.73m2 LOW (test code = LOW) [...] imaging tests). Lab Interpretation (test code = 81613-9) [facility] 22:22:34* Test Item Value Reference Range Interpretation Comme nts MAGNESIUM (test code = 4814726300) 1.5 mg/dL 1.7-2.4 L Lab Interpretation (test cod e = 35697-6) Abnormal [facility] GLUCOSE (AUTOMATED)2022-10-26 21:49:52* Test Item Value Reference Range Interpretation Comme nts POCT GLU (test code = 7708388305) 170 mg/dL 70-110 H Lab Interpretation (test cod e = 85040-0) Abnormal [facility] GLUCOSE (AUTOMATED)2022-10-26 21:49:52* Test Item Value Reference Range Interpretation Comme [facility] POCT GLU (test code = 2961749741) 170 mg/dL 70-110 H Lab Interpretation (test cod e = 90349-2) Abnormal [facility] GLUCOSE (AUTOMATED)2022-10-26 21:49:52* Test Item Value Reference Range Interpretation Comme nts POCT GLU (test code = 7868094625) 170 mg/dL 70-110 H Lab Interpretation (test cod e = 63032-8) Abnormal [facility] GLUCOSE (AUTOMATED)2022-10-26 17:58:19* Test Item Value Reference Range Interpretation Comme nts POCT GLU (test code = 5421837692) 222 mg/dL 70-110 H Lab Interpretation (test cod e = 42551-1) Abnormal [facility] GLUCOSE (AUTOMATED)2022-10-26 17:58:19* Test Item Value Reference Range Interpretation Comme nts POCT GLU (test code = 9088841896) 222 mg/dL 70-110 H Lab Interpretation (test cod e = 80653-7) Abnormal [facility] GLUCOSE (AUTOMATED)2022-10-26 17:58:19* Test Item Value Reference Range Interpretation Comme nts POCT GLU (test code = 4075176825) 222 mg/dL 70-110 H Lab Interpretation (test cod e = 62111-9) Abnormal [facility] GLUCOSE (AUTOMATED)2022-10-26 14:21:08* Test Item Value Reference Range Interpretation Comme nts POCT GLU (test code = 0553840974) 137 mg/dL 70-110 H Lab Interpretation (test cod e = 60778-8) Abnormal [facility] GLUCOSE (AUTOMATED)2022-10-26 14:21:08* Test Item Value Reference Range Interpretation Comme nts POCT GLU (test code = 0605385268) 137 mg/dL 70-110 H Lab Interpretation (test cod e = 91591-9) Abnormal [facility] GLUCOSE (AUTOMATED)2022-10-26 14:21:08* Test Item Value Reference Range Interpretation Comme nts POCT GLU (test code = 2073397047) 137 mg/dL 70-110 H Lab Interpretation (test cod e = 12260-4) [facility] [id number] 08:50:55* Test Item Value Reference Range Interpretation Comme nts TROPONIN I (test code = 3975258448) 0.008 ng/mL <=0.034 LOW (test code = [...] of biotin. Lab Interpretation (test code = 75082-5) [facility] [id number] 08:50:55* Test Item Value Reference Range Interpretation Comme nts TROPONIN I (test code = 3171269645) 0.008 ng/mL <=0.034 LOW (test code = [...] of biotin. Lab Interpretation (test code = 92404-6) Normal [facility] [id number] 08:50:55* Test Item Value Reference Range Interpretation Comme nts TROPONIN I (test code = 5428842234) 0.008 ng/mL <=0.034 LOW (test code = [...] of biotin. Lab Interpretation (test code = 44319-8) Normal [facility] [id number] 08:47:55* Test Item Value Reference Range Interpretation Comme nts NT-proBNP (test code = 8066433840) 1350 pg/mL <=450 H LOW (test code = LOW) Biotin has been reported to cause a negative bias, interpret results relative to patient's use of biotin. Lab Interpretation (test code = 38065-6) [facility]normal [facility] [id number] 08:47:55* Test Item Value Reference Range Interpretation Comme nts NT-proBNP (test code = 2037374625) 1350 pg/mL <=450 H LOW (test code = LOW) Biotin has been reported to cause a negative bias, interpret results relative to patient's use of biotin. Lab Interpretation (test code = 35275-8) [facility]normal [facility] [id number] 08:47:55* Test Item Value Reference Range Interpretation Comme nts NT-proBNP (test code = 3468994729) 1350 pg/mL <=450 H LOW (test code = LOW) Biotin has been reported to cause a negative bias, interpret results relative to patient's use of biotin. Lab Interpretation (test code = 32179-4) Abnormal [facility]. METABOLIC PANEL (49688)2022-10-26 08:39:16* Test Item Value Reference Range Interpretation Comme nts NA (test code = 0191827009) 138 mmol/L 135-145 K (test code = 1815364169) 4.5 mmol/L 3.5-5.0 CL (test code = 5536766500) 105 mmol/L 98-108 CO2 TOTAL (test code = 7778827680) 27 mmol/L 23-31 AGAP (test code = 3720203482) 6 2-16 BUN (test code = 4579580343) 13 mg/dL 7-23 GLUCOSE (test code = 2497890736) 186 mg/dL 70-110 H CREATININE (test code = 1784641067) 0.51 mg/dL 0.50-1.04 TOTAL BILI (test code = 8749728039) 0.8 mg/dL 0.1-1.1 CALCIUM (test code = 5636177071) 8.7 mg/dL 8.6-10.6 T PROTEIN (test code = 3712994305) 6.5 g/dL 6.3-8.2 ALBUMIN (test code = 1767079831) 3.7 g/dL 3.5-5.0 ALK PHOS (test code = 5014479212) 54 U/L 34-122 ALTv (test code = 1742-6) 16 U/L 5-35 AST(SGOT) (test code = 2116056622) 32 U/L 13-40 eGFR (test code = 5036618128) 116.9 mL/min/1.73m2 LOW (test code = LOW) [...] imaging tests). Lab Interpretation (test code = 34063-0) Abnormal [facility]. METABOLIC PANEL (40761)2022-10-26 08:39:16* Test Item Value Reference Range Interpretation Comme nts NA (test code = 1417885324) 138 mmol/L 135-145 K (test code = 2614894607) 4.5 mmol/L 3.5-5.0 CL (test code = 0792214494) 105 mmol/L 98-108 CO2 TOTAL (test code = 8907369588) 27 mmol/L 23-31 AGAP (test code = 5437953787) 6 2-16 BUN (test code = 7849423743) 13 mg/dL 7-23 GLUCOSE (test code = 3145430437) 186 mg/dL 70-110 H CREATININE (test code = 3050529019) 0.51 mg/dL 0.50-1.04 TOTAL BILI (test code = 5023877806) 0.8 mg/dL 0.1-1.1 CALCIUM (test code = 2196948260) 8.7 mg/dL 8.6-10.6 T PROTEIN (test code = 3009336636) 6.5 g/dL 6.3-8.2 ALBUMIN (test code = 2502126749) 3.7 g/dL 3.5-5.0 ALK PHOS (test code = 5999307271) 54 U/L 34-122 ALTv (test code = 1742-6) 16 U/L 5-35 AST(SGOT) (test code = 5556318452) 32 U/L 13-40 eGFR (test code = 5816482494) 116.9 mL/min/1.73m2 LOW (test code = LOW) [...] imaging tests). Lab Interpretation (test code = 18719-3) Abnormal [facility]. METABOLIC PANEL (92642)2022-10-26 08:39:16* Test Item Value Reference Range Interpretation Comme nts NA (test code = 4076907943) 138 mmol/L 135-145 K (test code = 1127619580) 4.5 mmol/L 3.5-5.0 CL (test code = 1481694242) 105 mmol/L 98-108 CO2 TOTAL (test code = 3506809273) 27 mmol/L 23-31 AGAP (test code = 2529109405) 6 2-16 BUN (test code = 2385711168) 13 mg/dL 7-23 GLUCOSE (test code = 2330561557) 186 mg/dL 70-110 H CREATININE (test code = 0717814037) 0.51 mg/dL 0.50-1.04 TOTAL BILI (test code = 6171259046) 0.8 mg/dL 0.1-1.1 CALCIUM (test code = 9275193153) 8.7 mg/dL 8.6-10.6 T PROTEIN (test code = 3160662479) 6.5 g/dL 6.3-8.2 ALBUMIN (test code = 4013176603) 3.7 g/dL 3.5-5.0 ALK PHOS (test code = 2357537518) 54 U/L 34-122 ALTv (test code = 1742-6) 16 U/L 5-35 AST(SGOT) (test code = 3546628054) 32 U/L 13-40 eGFR (test code = 7646883534) 116.9 mL/min/1.73m2 LOW (test code = LOW) [...] imaging tests). Lab Interpretation (test code = 49338-0) [facility]normal [facility]th[facility] Time / [id number] 08:26:13* Test Item Value Reference Range Interpretation Francisca GRACIA PATIENT (test code = 5964-2) 13.3 See_Comment [Automated [employer]] The system which generated this result transmitted reference range: 12.0 - 14.7 Seconds. The reference range was not used to interpret this result as normal/abnormal. INR (test code = 6301-6) 1.0 Normal INR <1.1; Warfarin Therapeutic range 2.0 to 3.0 or 2.5 to 3.5, depending upon the indications. Lab Interpretation (test code = 27404-8) Normal [facility]thrombin Time / [id number] 08:26:13* Test Item Value Reference Range Interpretation Comme [facility] PROTIME PATIENT (test code = 5964-2) 13.3 [...] the indications. Lab Interpretation (test code = 59192-6) Normal [facility]throm[facility] Time / [id number] 08:26:13* Test Item Value Reference Range Interpretation Comme [facility] PROTIME PATIENT (test code = 5964-2) 13.3 [...] the indications. Lab Interpretation (test code = 89061-8) Normal [facility] WITH [id number] 08:14:13* Test Item Value Reference Range Interpretation Comme [facility] WBC (test code = 6690-2) 9.20 See_Comment [...] g/dL 31.6-35.1 L RDW-SD (test code = 67580-9) 53.8 fL 39.0-49.9 H RDW-CV (test code = 788-0) 16.5 % 12.0-15.5 H PLT (test code = 777-3) 308 See_Comment [Automated [employer]] The system which generated this result transmitted reference range: 166 - 358 10*3/?L. The reference range was not used to interpret this result as normal/abnormal. MPV (test code = 90455-4) 9.9 fL 9.5-12.9 NRBC/100 WBC (test code = 3832969221) 0.0 See_Comment [Automated [employer] ssage] The system which generated this result transmitted reference range: 0.0 - 10.0 /100 WBCs. The reference range was not used to interpret this result as normal/abnormal. NRBC x10^3 (test code = 1900482444) See_Comment [Automated [employer]] The system which generated this result transmitted reference range: 10*3/?L. The reference range was not used to interpret this result as normal/abnormal. GRAN MAT (NEUT) % (test code = 770-8) 67.0 % IMM GRAN % (test code = 4642154583) 0.30 % LYMPH % (test code = 736-9) 20.5 % MONO % (test code = 5905-5) 8.5 % EOS % (test code = 713-8) 3.3 % BASO % (test code = 706-2) 0.4 % GRAN MAT x10^3(ANC) (test code = 9436787162) 6.16 10*3/uL 1.88-7.09 IMM GRAN x10^3 (test code = 2992148689) 0.03 10*3/uL 0.00-0.06 LYMPH x10^3 (test code = 731-0) 1.89 10*3/uL 1.32-3.29 MONO x10^3 (test code = 742-7) 0.78 10*3/uL 0.33-0.92 EOS x10^3 (test code = 711-2) 0.30 10*3/uL 0.03-0.39 BASO x10^3 (test code = 704-7) 0.04 10*3/uL 0.01-0.07 Lab Interpretation (test code = 07909-9) Abnormal [facility] WITH [id number] 08:14:13* Test Item Value Reference Range Interpretation [...] g/dL 31.6-35.1 L RDW-SD (test code = 09383-3) 53.8 fL 39.0-49.9 H RDW-CV (test code = 788-0) 16.5 % 12.0-15.5 H PLT (test code = 777-3) 308 See_Comment [Automated messa ge] The system which generated this result transmitted reference range: 166 - 358 10*3/?L. The reference range was not used to interpret this result as normal/abnormal. MPV (test code = 33335-1) 9.9 fL 9.5-12.9 NRBC/100 WBC (test code = 0373902975) 0.0 See_Comment [Automated [employer] ssage] The system which generated this result transmitted reference range: 0.0 - 10.0 /100 WBCs. The reference range was not used to interpret this result as normal/abnormal. NRBC x10^3 (test code = 4685593308) See_Comment [Automated messa ge] The system which generated this result transmitted reference range: 10*3/?L. The reference range was not used to interpret this result as normal/abnormal. GRAN MAT (NEUT) % (test code = 770-8) 67.0 % IMM GRAN % (test code = 9113246933) 0.30 % LYMPH % (test code = 736-9) 20.5 % MONO % (test code = 5905-5) 8.5 % EOS % (test code = 713-8) 3.3 % BASO % (test code = 706-2) 0.4 % GRAN MAT x10^3(ANC) (test code = 9811121626) 6.16 10*3/uL 1.88-7.09 IMM GRAN x10^3 (test code = 7994761603) 0.03 10*3/uL 0.00-0.06 LYMPH x10^3 (test code = 731-0) 1.89 10*3/uL 1.32-3.29 MONO x10^3 (test code = 742-7) 0.78 10*3/uL 0.33-0.92 EOS x10^3 (test code = 711-2) 0.30 10*3/uL 0.03-0.39 BASO x10^3 (test code = 704-7) 0.04 10*3/uL 0.01-0.07 Lab Interpretation (test code = 79466-8) Abnormal [facility] WITH [id number] 08:14:13* Test Item Value Reference Range Interpretation [...] g/dL 31.6-35.1 L RDW-SD (test code = 10669-2) 53.8 fL 39.0-49.9 H RDW-CV (test code = 788-0) 16.5 % 12.0-15.5 H PLT (test code = 777-3) 308 See_Comment [Automated messa ge] The system which generated this result transmitted reference range: 166 - 358 10*3/?L. The reference range was not used to interpret this result as normal/abnormal. MPV (test code = 38999-5) 9.9 fL 9.5-12.9 NRBC/100 WBC (test code = 8479275235) 0.0 See_Comment [Automated [employer] ssage] The system which generated this result transmitted reference range: 0.0 - 10.0 /100 WBCs. The reference range was not used to interpret this result as normal/abnormal. NRBC x10^3 (test code = 3941009501) See_Comment [Automated messa ge] The system which generated this result transmitted reference range: 10*3/?L. The reference range was not used to interpret this result as normal/abnormal. GRAN MAT (NEUT) % (test code = 770-8) 67.0 % IMM GRAN % (test code = 7058703713) 0.30 % LYMPH % (test code = 736-9) 20.5 % MONO % (test code = 5905-5) 8.5 % EOS % (test code = 713-8) 3.3 % BASO % (test code = 706-2) 0.4 % GRAN MAT x10^3(ANC) (test code = 1506433472) 6.16 10*3/uL 1.88-7.09 IMM GRAN x10^3 (test code = 0202344149) 0.03 10*3/uL 0.00-0.06 LYMPH x10^3 (test code = 731-0) 1.89 10*3/uL 1.32-3.29 MONO x10^3 (test code = 742-7) 0.78 10*3/uL 0.33-0.92 EOS x10^3 (test code = 711-2) 0.30 10*3/uL 0.03-0.39 BASO x10^3 (test code = 704-7) 0.04 10*3/uL 0.01-0.07 Lab Interpretation (test code = 69859-4) [facility]normal [facility], [id number] 08:12:34SPECIMEN NUMBER: [id number] CULTURE, URINE SPECIMEN NUMBER: [id number] SPECIMEN COMMENT: URINE SOURCE: URINE REPORT STATUS: [...] TESTING PERFORMED AT [facility] [address] [place] [address] LIP OF SHANK CUTTER: DIANELYS ANDERSON M.D. CLIA NUMBER [id number] [facility] [place] [place]. [id number], [id number] 00:00:00* Test Item Value Reference Range Interpretation Comme nts CULTURE, URINE (test code = 11216) SPECIMEN NUMBER: [id number] Surendra Knowles [id number] 00:00:00* Test Item Value Reference Range Interpretation Comme nts CULTURE, URINE (test code = 39024) SPECIMEN NUMBER: [id number] Surendra Knowles [id number] 00:00:00* Test Item Value Reference Range Interpretation Comme nts CULTURE, URINE (test code = 38008) SPECIMEN NUMBER: [id number] Surendra Knowles [id number] 00:00:00* Test Item Value Reference Range Interpretation Comme nts CULTURE, URINE (test code = 41503) SPECIMEN NUMBER: [id number] Surendra Knowles [id number] 00:00:00* Test Item Value Reference Range Interpretation Comme nts CULTURE, URINE (test code = 81368) SPECIMEN NUMBER: [id number] MARY Price2023-06-05 00:00:00* Test Item Value Reference Range Interpretation Comme nts CULTURE, URINE (test code = 49997) SPECIMEN NUMBER: [id number] Surendra Knowles [id number] 00:00:00* Test Item Value Reference Range Interpretation Comme nts CULTURE, URINE (test code = 65264) SPECIMEN NUMBER: [id number] MARY Price2023-06-05 00:00:00* Test Item Value Reference Range Interpretation Comme nts CULTURE, URINE (test code = 82570) SPECIMEN NUMBER: [id number] Surendra Ross GoehnerPOCT GLUCOSE (AUTOMATED)2022-09-06 22:24:54* Test Item Value Reference Range Interpretation Comme nts POCT GLU (test code = 0268204004) 287 mg/dL 70-110 H Lab Interpretation (test cod e = 27784-9) Abnormal [facility] GLUCOSE (AUTOMATED)2022-09-06 16:41:31* Test Item Value Reference Range Interpretation Comme nts POCT GLU (test code = 8582113982) 175 mg/dL 70-110 H Notified Provide r Lab Interpretation (test code = 32186-1) Abnormal [facility] GLUCOSE (AUTOMATED)2022-09-06 14:47:22* Test Item Value Reference Range Interpretation Comme nts POCT GLU (test code = 8195003164) 148 mg/dL 70-110 H Lab Interpretation (test cod e = 52924-0) Abnormal [facility] GLUCOSE (AUTOMATED)2022-09-06 12:35:53* Test Item Value Reference Range Interpretation Comme nts POCT GLU (test code = 0185814869) 165 mg/dL 70-110 H Notified Provide r Lab Interpretation (test code = 07619-1) Abnormal [facility] GLUCOSE (AUTOMATED)2022-09-06 00:51:42* Test Item Value Reference Range Interpretation Comme nts POCT GLU (test code = 1018493918) 264 mg/dL 70-110 H Lab Interpretation (test cod e = 45436-5) Abnormal [facility] GLUCOSE (AUTOMATED)2022-09-05 22:16:15* Test Item Value Reference Range Interpretation Comme nts POCT GLU (test code = 9197191495) 252 mg/dL 70-110 H Lab Interpretation (test cod e = 08957-9) Abnormal [facility] GLUCOSE (AUTOMATED)2022-09-05 21:25:17* Test Item Value Reference Range Interpretation Comme nts POCT GLU (test code = 1113966710) 244 mg/dL 70-110 H Lab Interpretation (test cod e = 94959-0) Abnormal [facility] GLUCOSE (AUTOMATED)2022-09-05 17:01:15* Test Item Value Reference Range Interpretation Comme nts POCT GLU (test code = 1965873777) 219 mg/dL 70-110 H Lab Interpretation (test cod e = 66583-5) Abnormal [facility] GLUCOSE (AUTOMATED)2022-09-05 02:11:39* Test Item Value Reference Range Interpretation Comme nts POCT GLU (test code = 7855270439) 316 mg/dL 70-110 H Lab Interpretation (test cod e = 36936-9) Abnormal [facility] GLUCOSE (AUTOMATED)2022-09-04 23:14:25* Test Item Value Reference Range Interpretation Comme nts POCT GLU (test code = 2831678669) 254 mg/dL 70-110 H Lab Interpretation (test cod e = 85604-1) Abnormal [facility] GLUCOSE (AUTOMATED)2022-09-04 17:06:25* Test Item Value Reference Range Interpretation Comme nts POCT GLU (test code = 1768543119) 282 mg/dL 70-110 H Lab Interpretation (test cod e = 18761-5) [facility] 13:32:54* Test Item Value Reference Range Interpretation Comme nts POCT GLU (test code = 1128839988) 181 mg/dL 70-110 H Lab Interpretation (test cod e = 12076-9) [facility] 02:20:42* Test Item Value Reference Range Interpretation Comme nts POCT GLU (test code = 8741788136) 262 mg/dL 70-110 H Lab Interpretation (test cod e = 56163-2) Abnormal [facility] GLUCOSE (AUTOMATED)2022-09-03 22:30:06* Test Item Value Reference Range Interpretation Comme nts POCT GLU (test code = 0750596506) 242 mg/dL 70-110 H Lab Interpretation (test cod e = 28604-8) [facility] 17:49:27* Test Item Value Reference Range Interpretation Comme nts POCT GLU (test code = 5108707136) 290 mg/dL 70-110 H Lab Interpretation (test cod e = 60137-1) [facility]2022-[facility]-03 13:35:16* Test Item Value Reference Range Interpretation Comme nts POCT GLU (test code = 2737092958) 193 mg/dL 70-110 H Lab Interpretation (test cod e = 11194-8) [facility] 02:55:14* Test Item Value Reference Range Interpretation Comme nts POCT GLU (test code = 3011083282) 126 mg/dL 70-110 H Lab Interpretation (test cod e = 64620-3) [facility], 25 [id number] 06:41:41* Test Item Value Reference Range Interpretation [...] . NG/ML 30-100 TSH + FREE T4 [id number] 06:40:44* Test Item Value Reference Range Interpretation Comme [facility] TSH, THIRD GENERATION (test code = 2821) 2.440 UIU/ML 0.400-4.100 FREE T4 (THYROXINE) (test co de = 2823) 1.61 NG/DL 0.80-1.90 HEMOGLOBIN [id number] 04:54:32* Test Item Value Reference Range Interpretation Comme [facility] HEMOGLOBIN A1c (test code = 58803) 8.1 % 4.2-5.6 H [employer] GUIDELINES FOR HGB A1C: [...] ALTERNATE TESTING OR LABORATORY CONSULTATION. COMPREHENSIVE METABOLIC [id number] 04:20:58* Test Item Value Reference Range Interpretation Comme nts GLUCOSE (test code = 2217) 88 MG/DL 70-99 BUN (test code = 2208) 14 MG/DL 8-23 CREATININE (test code = 2214) 0.67 MG/DL 0.60-1.30 eGFR (2020 CKD-EPI) (test code = 35678) 90 ML/MIN/1.73 >60 CALC BUN/CREAT (test code = 2235) 21 RATIO 6-28 SODIUM (test code = 2231) 140 MEQ/L 133-146 POTASSIUM (test code = 2228) 4.2 MEQ/L 3.5-5.4 CHLORIDE (test code = 5) 101 MEQ/L 95-107 CARBON DIOXIDE (test code = 2205) 26 MEQ/L 19-31 CALCIUM (test code = 2208) 10.2 MG/DL 8.5-10.5 PROTEIN, TOTAL (test code = 2228) 7.2 G/DL 6.1-8.3 ALBUMIN (test code = 2200) 4.2 G/DL 3.5-5.2 CALC GLOBULIN (test code = 0) 3.0 G/DL 1.9-3.7 CALC A/G RATIO (test code = 223) 1.4 RATIO 1.0-2.6 BILIRUBIN, TOTAL (test code = 2206) 0.6 MG/DL See_Comment [Automated me ssage] The system which generated this result transmitted reference range: <=1.2. The reference range was not used to interpret this result as normal/abnormal. ALKALINE PHOSPHATASE (test code = 2203) 57 U/L 40-142 AST (test code = 2217) 24 U/L 9-40 ALT (test code = 221) 13 U/L 5-40 LIPID [id number] 04:20:58* Test Item Value Reference Range Interpretation [...] SPECIMENS. FOR MOREINFORMATION, SEE CLIENT ANNOUNCEMENT AT [email or web address] [email or web address] RATIO LDL/HDL (test code = 2238) 1.87 RATIO <3.22 CBC W/AUTO DIFF WITH [id number] 03:50:36* Test Item Value Reference Range Interpretation [...] = 1065) 0.0 /100 WBC'S See_Comment [Automated [employer]] The system which generated this result [...] 0.00-0.10 ABS NUCLEATED RBCS (test code = 95258) 0.00 K/UL 0.00-0.11 [id number] 03:32:16* Test Item Value Reference Range Interpretation Comme nts MAGNESIUM (test code = 2226) 1.7 MG/DL 1.6-2.6 [facility] has impo rtant pathology staff changes effective 07/16/2022. New pathology staff will provide uninterrupted, excellent patient care and clinical consultation. See URL: [email or web address]. UNLESS OTHERWISE INDICATED, ALL TESTING PERFORMED AT [facility] [address] [place] [address] LIP OF SHANK CUTTER: DIANELYS ANDERSON M.D. CLIA NUMBER [id number] [place]. [id number] COMPREHENSIVE METABOLIC [id number] 00:00:00* Test Item Value Reference Range Interpretation Comme nts GLUCOSE (test code = 2217) 88 MG/DL BUN (test code = 2208) 14 MG/DL CREATININE (test code = 2214) 0.67 MG/DL eGFR (2020 CKD-EPI) (test co de = 32298) 90 ML/MIN/1.73 CALC BUN/CREAT (test code = [...] code = 2219) 13 U/L Surendra WhiteLIPID [id number] 00:00:00* Test Item Value Reference Range Interpretation Comme nts CHOLESTEROL (test code = 2210) 168 MG/DL TRIGLYCERIDES (test code = 2232) 75 MG/DL HDL CHOLESTEROL (test code = 2220) 53 MG/DL CALC LDL CHOL (test code = 2237) 99 MG/DL RISK RATIO LDL/HDL (test cod e = 2238) 1.87 RATIO Surendra WhiteCBC W/AUTO [id number] 00:00:00* Test Item Value Reference Range Interpretation [...] ABS NUCLEATED RBCS (test cod e = 36459) 0.00 K/UL [facility] T4 [id number] 00:00:00* Test Item Value Reference Range Interpretation Comme nts TSH, THIRD GENERATION (test code = 2821) 2.440 UIU/ML FREE T4 (THYROXINE) (test co de = 2823) 1.61 NG/DL Surendra WhiteHEMOGLOBIN [id number] 00:00:00* Test Item Value Reference Range Interpretation Comme nts HEMOGLOBIN A1c (test code = 33125) 8.1 % Surendra [id number] 00:00:00* Test Item Value Reference Range Interpretation Comme nts MAGNESIUM (test code = 2226) 1.7 MG/DL Surendra WhiteVITAMIN D, 25 [id number] 00:00:00* Test Item Value Reference Range Interpretation Comme nts VITAMIN D, 25 OH (test code = 4958) 49 NG/ML Surendra WhiteCOMPREHENSIVE METABOLIC [id number] 00:00:00* Test Item Value Reference Range Interpretation Comme nts GLUCOSE (test code = 2217) 88 MG/DL BUN (test code = 2208) 14 MG/DL CREATININE (test code = 2214) 0.67 MG/DL eGFR (2020 CKD-EPI) (test co de = 05522) 90 ML/MIN/1.73 CALC BUN/CREAT (test code = [...] code = 2219) 13 U/L Surendra WhiteLIPID [id number] 00:00:00* Test Item Value Reference Range Interpretation Comme nts CHOLESTEROL (test code = 2210) 168 MG/DL TRIGLYCERIDES (test code = 2232) 75 MG/DL HDL CHOLESTEROL (test code = 2220) 53 MG/DL CALC LDL CHOL (test code = 2237) 99 MG/DL RISK RATIO LDL/HDL (test cod e = 2238) 1.87 RATIO Surendra WhiteCBC W/AUTO [id number] 00:00:00* Test Item Value Reference Range Interpretation [...] ABS NUCLEATED RBCS (test cod e = 55987) 0.00 K/UL Surendra WhiteTSH + FREE T4 [id number] 00:00:00* Test Item Value Reference Range Interpretation Comme nts TSH, THIRD GENERATION (test code = 2821) 2.440 UIU/ML FREE T4 (THYROXINE) (test co de = 2823) 1.61 NG/DL Surendra WhiteHEMOGLOBIN [id number] 00:00:00* Test Item Value Reference Range Interpretation Comme nts HEMOGLOBIN A1c (test code = 18847) 8.1 % Surendra [id number] 00:00:00* Test Item Value Reference Range Interpretation Comme nts MAGNESIUM (test code = 2226) 1.7 MG/DL Surendra WhiteVITAMIN D, 25 [id number] 00:00:00* Test Item Value Reference Range Interpretation Comme nts VITAMIN D, 25 OH (test code = 4958) 49 NG/ML Surendra WhiteCOMPREHENSIVE METABOLIC [id number] 00:00:00* Test Item Value Reference Range Interpretation Comme nts GLUCOSE (test code = 2217) 88 MG/DL BUN (test code = 2208) 14 MG/DL CREATININE (test code = 2214) 0.67 MG/DL eGFR (2020 CKD-EPI) (test co de = 30247) 90 ML/MIN/1.73 CALC BUN/CREAT (test code = [...] code = 2219) 13 U/L Surendra WhiteLIPID [id number] 00:00:00* Test Item Value Reference Range Interpretation Comme nts CHOLESTEROL (test code = 2210) 168 MG/DL TRIGLYCERIDES (test code = 2232) 75 MG/DL HDL CHOLESTEROL (test code = 2220) 53 MG/DL CALC LDL CHOL (test code = 2237) 99 MG/DL RISK RATIO LDL/HDL (test cod e = 2238) 1.87 RATIO Surendra WhiteCBC W/AUTO [id number] 00:00:00* Test Item Value Reference Range Interpretation [...] ABS NUCLEATED RBCS (test cod e = 46026) 0.00 K/UL Surendra WhiteTSH + FREE T4 [id number] 00:00:00* Test Item Value Reference Range Interpretation Comme nts TSH, THIRD GENERATION (test code = 2821) 2.440 UIU/ML FREE T4 (THYROXINE) (test co de = 2823) 1.61 NG/DL Surendra WhiteHEMOGLOBIN [id number] 00:00:00* Test Item Value Reference Range Interpretation Comme nts HEMOGLOBIN A1c (test code = 76413) 8.1 % Surendra [id number] 00:00:00* Test Item Value Reference Range Interpretation Comme nts MAGNESIUM (test code = 2226) 1.7 MG/DL Surendra WhiteVITAMIN D, 25 [id number] 00:00:00* Test Item Value Reference Range Interpretation Comme nts VITAMIN D, 25 OH (test code = 4958) 49 NG/ML Surendra WhiteCOMPREHENSIVE METABOLIC [id number] 00:00:00* Test Item Value Reference Range Interpretation Comme nts GLUCOSE (test code = 2217) 88 MG/DL BUN (test code = 2208) 14 MG/DL CREATININE (test code = 2214) 0.67 MG/DL eGFR (2020 CKD-EPI) (test co de = 50927) 90 ML/MIN/1.73 CALC BUN/CREAT (test code = [...] code = 2219) 13 U/L Surendra WhiteLIPID [id number] 00:00:00* Test Item Value Reference Range Interpretation Comme nts CHOLESTEROL (test code = 2210) 168 MG/DL TRIGLYCERIDES (test code = 2232) 75 MG/DL HDL CHOLESTEROL (test code = 2220) 53 MG/DL CALC LDL CHOL (test code = 2237) 99 MG/DL RISK RATIO LDL/HDL (test cod e = 2238) 1.87 RATIO Surendra WhiteCBC W/AUTO [id number] 00:00:00* Test Item Value Reference Range Interpretation [...] ABS NUCLEATED RBCS (test cod e = 87631) 0.00 K/UL Surendra WhiteTSH + FREE T4 [id number] 00:00:00* Test Item Value Reference Range Interpretation Comme nts TSH, THIRD GENERATION (test code = 2821) 2.440 UIU/ML FREE T4 (THYROXINE) (test co de = 2823) 1.61 NG/DL Surendra WhiteHEMOGLOBIN [id number] 00:00:00* Test Item Value Reference Range Interpretation Comme carmen HEMOGLOBIN A1c (test code = 96944) 8.1 % Surendra [id number] 00:00:00* Test Item Value Reference Range Interpretation Comme nts MAGNESIUM (test code = 2226) 1.7 MG/DL Surendra WhiteVITAMIN D, 25 [id number] 00:00:00* Test Item Value Reference Range Interpretation Comme nts VITAMIN D, 25 OH (test code = 4958) 49 NG/ML Surendra WhiteCOMPREHENSIVE METABOLIC [id number] 00:00:00* Test Item Value Reference Range Interpretation Comme nts GLUCOSE (test code = 2217) 88 MG/DL BUN (test code = 2208) 14 MG/DL CREATININE (test code = 2214) 0.67 MG/DL eGFR (2020 CKD-EPI) (test co de = 96198) 90 ML/MIN/1.73 CALC BUN/CREAT (test code = [...] code = 2219) 13 U/L Surendra WhiteLIPID [id number] 00:00:00* Test Item Value Reference Range Interpretation Comme nts CHOLESTEROL (test code = 2210) 168 MG/DL TRIGLYCERIDES (test code = 2232) 75 MG/DL HDL CHOLESTEROL (test code = 2220) 53 MG/DL CALC LDL CHOL (test code = 2237) 99 MG/DL RISK RATIO LDL/HDL (test cod e = 2238) 1.87 RATIO Surendra WhiteCBC W/AUTO [id number] 00:00:00* Test Item Value Reference Range Interpretation [...] ABS NUCLEATED RBCS (test cod e = 92848) 0.00 K/UL Surendra WhiteTSH + FREE T4 [id number] 00:00:00* Test Item Value Reference Range Interpretation Comme carmen TSH, THIRD GENERATION (test code = 2821) 2.440 UIU/ML FREE T4 (THYROXINE) (test co de = 2823) 1.61 NG/DL Surendra WhiteHEMOGLOBIN [id number] 00:00:00* Test Item Value Reference Range Interpretation Comme carmen HEMOGLOBIN A1c (test code = 88489) 8.1 % Surendra [id number] 00:00:00* Test Item Value Reference Range Interpretation Comme nts MAGNESIUM (test code = 2226) 1.7 MG/DL Surendra WhiteVITAMIN D, 25 [id number] 00:00:00* Test Item Value Reference Range Interpretation Comme carmen VITAMIN D, 25 OH (test code = 4958) 49 NG/ML Surendra WhiteCOMPREHENSIVE METABOLIC [id number] 00:00:00* Test Item Value Reference Range Interpretation Comme nts GLUCOSE (test code = 2217) 88 MG/DL BUN (test code = 2208) 14 MG/DL CREATININE (test code = 2214) 0.67 MG/DL eGFR (2020 CKD-EPI) (test co de = 16036) 90 ML/MIN/1.73 CALC BUN/CREAT (test code = [...] code = 2219) 13 U/L Surendra WhiteLIPID [id number] 00:00:00* Test Item Value Reference Range Interpretation Comme nts CHOLESTEROL (test code = 2210) 168 MG/DL TRIGLYCERIDES (test code = 2232) 75 MG/DL HDL CHOLESTEROL (test code = 2220) 53 MG/DL CALC LDL CHOL (test code = 2237) 99 MG/DL RISK RATIO LDL/HDL (test cod e = 2238) 1.87 RATIO Surendra WhiteCBC W/AUTO [id number] 00:00:00* Test Item Value Reference Range Interpretation [...] ABS NUCLEATED RBCS (test cod e = 99305) 0.00 K/UL Surendra WhiteTSH + FREE T4 [id number] 00:00:00* Test Item Value Reference Range Interpretation Comme nts TSH, THIRD GENERATION (test code = 2821) 2.440 UIU/ML FREE T4 (THYROXINE) (test co de = 2823) 1.61 NG/DL Surendra WhiteHEMOGLOBIN [id number] 00:00:00* Test Item Value Reference Range Interpretation Comme nts HEMOGLOBIN A1c (test code = 64365) 8.1 % Surendra [id number] 00:00:00* Test Item Value Reference Range Interpretation Comme nts MAGNESIUM (test code = 2226) 1.7 MG/DL Surendra WhiteVITAMIN D, 25 [id number] 00:00:00* Test Item Value Reference Range Interpretation Comme nts VITAMIN D, 25 OH (test code = 4958) 49 NG/ML Surendra WhiteCOMPREHENSIVE METABOLIC [id number] 00:00:00* Test Item Value Reference Range Interpretation Comme nts GLUCOSE (test code = 2217) 88 MG/DL BUN (test code = 2208) 14 MG/DL CREATININE (test code = 2214) 0.67 MG/DL eGFR (2020 CKD-EPI) (test co de = 42829) 90 ML/MIN/1.73 CALC BUN/CREAT (test code = [...] code = 2219) 13 U/L Surendra WhiteLIPID [id number] 00:00:00* Test Item Value Reference Range Interpretation Comme nts CHOLESTEROL (test code = 2210) 168 MG/DL TRIGLYCERIDES (test code = 2232) 75 MG/DL HDL CHOLESTEROL (test code = 2220) 53 MG/DL CALC LDL CHOL (test code = 2237) 99 MG/DL RISK RATIO LDL/HDL (test cod e = 2238) 1.87 RATIO Surendra WhiteCBC W/AUTO [id number] 00:00:00* Test Item Value Reference Range Interpretation [...] ABS NUCLEATED RBCS (test cod e = 90524) 0.00 K/UL Surendra WhiteTSH + FREE T4 [id number] 00:00:00* Test Item Value Reference Range Interpretation Comme nts TSH, THIRD GENERATION (test code = 2821) 2.440 UIU/ML FREE T4 (THYROXINE) (test co de = 2823) 1.61 NG/DL Surendra WhiteHEMOGLOBIN [id number] 00:00:00* Test Item Value Reference Range Interpretation Comme carmen HEMOGLOBIN A1c (test code = 79698) 8.1 % Surendra [id number] 00:00:00* Test Item Value Reference Range Interpretation Comme nts MAGNESIUM (test code = 2226) 1.7 MG/DL Surendra WhiteVITAMIN D, 25 [id number] 00:00:00* Test Item Value Reference Range Interpretation Comme nts VITAMIN D, 25 OH (test code = 4958) 49 NG/ML Surendra WhiteCOMPREHENSIVE METABOLIC [id number] 00:00:00* Test Item Value Reference Range Interpretation Comme nts GLUCOSE (test code = 2217) 88 MG/DL BUN (test code = 2208) 14 MG/DL CREATININE (test code = 2214) 0.67 MG/DL eGFR (2020 CKD-EPI) (test co de = 24255) 90 ML/MIN/1.73 CALC BUN/CREAT (test code = [...] code = 2219) 13 U/L Surendra WhiteLIPID [id number] 00:00:00* Test Item Value Reference Range Interpretation Comme nts CHOLESTEROL (test code = 2210) 168 MG/DL TRIGLYCERIDES (test code = 2232) 75 MG/DL HDL CHOLESTEROL (test code = 2220) 53 MG/DL CALC LDL CHOL (test code = 2237) 99 MG/DL RISK RATIO LDL/HDL (test cod e = 2238) 1.87 RATIO Surendra WhiteCBC W/AUTO [id number] 00:00:00* Test Item Value Reference Range Interpretation [...] ABS NUCLEATED RBCS (test cod e = 30118) 0.00 K/UL Surendra WhiteTSH + FREE T4 [id number] 00:00:00* Test Item Value Reference Range Interpretation Comme nts TSH, THIRD GENERATION (test code = 2821) 2.440 UIU/ML FREE T4 (THYROXINE) (test co de = 2823) 1.61 NG/DL Surendra WhiteHEMOGLOBIN [id number] 00:00:00* Test Item Value Reference Range Interpretation Comme nts HEMOGLOBIN A1c (test code = 34159) 8.1 % Surendra [id number] 00:00:00* Test Item Value Reference Range Interpretation Comme nts MAGNESIUM (test code = 2226) 1.7 MG/DL Surendra WhiteVITAMIN D, 25 [id number] 00:00:00* Test Item Value Reference Range Interpretation Comme nts VITAMIN D, 25 OH (test code = 4958) 49 NG/ML Surendra Knowles [id number] 12:56:48SPECIMEN NUMBER: [id number] CULTURE, URINE SPECIMEN NUMBER: [id number] SPECIMEN COMMENT: URINE SOURCE: URINE REPORT STATUS: FINAL FINAL REPORT: 08/07/2022 >100,000 CFU/ML UROGENITAL [place] PRESENT NOCOMMON PATHOGENS [facility] has important pathology staff changes effective 07/16/2022. New pathology staff will provide uninterrupted, excellent patient care and clinical consultation. See URL: [email or web address]. UNLESS OTHERWISE INDICATED, ALL TESTING PERFORMED AT [facility], [facility]. [address] [place] [address] LIP OF SHANK CUTTER: DIANELYS ANDERSON M.D. CLIA NUMBER [id number] [facility] [place]. [id number], [id number] 00:00:00* Test Item Value Reference Range Interpretation Comme nts CULTURE, URINE (test code = 61698) SPECIMEN NUMBER: [id number] Surendra Knowles [id number] 00:00:00* Test Item Value Reference Range Interpretation Comme nts CULTURE, URINE (test code = 21128) SPECIMEN NUMBER: [id number] Surendra Knowles, [id number] 00:00:00* Test Item Value Reference Range Interpretation Comme nts CULTURE, URINE (test code = 91648) SPECIMEN NUMBER: [id number] Surendra Knowles, [id number] 00:00:00* Test Item Value Reference Range Interpretation Comme nts CULTURE, URINE (test code = 53062) SPECIMEN NUMBER: [id number] Surendra Knowles, [id number] 00:00:00* Test Item Value Reference Range Interpretation Comme nts CULTURE, URINE (test code = 90629) SPECIMEN NUMBER: [id number] Surendra Knowles, [id number] 00:00:00* Test Item Value Reference Range Interpretation Comme nts CULTURE, URINE (test code = 17640) SPECIMEN NUMBER: [id number] Surendra Knowles, [id number] 00:00:00* Test Item Value Reference Range Interpretation Comme nts CULTURE, URINE (test code = 77942) SPECIMEN NUMBER: [id number] Surendra Knowles [id number] 00:00:00* Test Item Value Reference Range Interpretation Comme nts CULTURE, URINE (test code = 20171) SPECIMEN NUMBER: [id number] Surendra Knowles, [id number] 00:00:00* Test Item Value Reference Range Interpretation Comme nts CULTURE, URINE (test code = 42180) SPECIMEN NUMBER: [id number] Surendra Knowles, [id number] 00:00:00* Test Item Value Reference Range Interpretation Comme nts CULTURE, URINE (test code = 67696) SPECIMEN NUMBER: [id number] Surendra Knowles, [id number] 00:00:00* Test Item Value Reference Range Interpretation Comme nts CULTURE, URINE (test code = 05995) SPECIMEN NUMBER: [id number] Surendra SilveiraLTMARCELLO, [id number] 00:00:00* Test Item Value Reference Range Interpretation Comme nts CULTURE, URINE (test code = 90578) SPECIMEN NUMBER: [id number] Surendra Knowles, [id number] 00:00:00* Test Item Value Reference Range Interpretation Comme nts CULTURE, URINE (test code = 30722) SPECIMEN NUMBER: [id number] Surendra SilveiraLTMARCELLO, [id number] 00:00:00* Test Item Value Reference Range Interpretation Comme nts CULTURE, URINE (test code = 44480) SPECIMEN NUMBER: [id number] Surendra SilveiraLTMARCELLO, [id number] 00:00:00* Test Item Value Reference Range Interpretation Comme nts CULTURE, URINE (test code = 53498) SPECIMEN NUMBER: [id number] Surendra SilveiraLTMARCELLO, [id number] 00:00:00* Test Item Value Reference Range Interpretation Comme nts CULTURE, URINE (test code = 69819) SPECIMEN NUMBER: [id number] Surendra Ross AustinHEMOGLOBIN [id number] 00:00:00* Test Item Value Reference Range Interpretation Comme nts HEMOGLOBIN A1c (test code = 04151) 8.9 % Surendra Ross AustinHEMOGLOBIN [id number] 00:00:00* Test Item Value Reference Range Interpretation Comme nts HEMOGLOBIN A1c (test code = 32556) 8.9 % Surendra Ross AustinHEMOGLOBIN [id number] 00:00:00* Test Item Value Reference Range Interpretation Comme nts HEMOGLOBIN A1c (test code = 31262) 8.9 % Surendra Ross AustinHEMOGLOBIN [id number] 00:00:00* Test Item Value Reference Range Interpretation Comme nts HEMOGLOBIN A1c (test code = 18000) 8.9 % Surendra Ross AustinHEMOGLOBIN [id number] 00:00:00* Test Item Value Reference Range Interpretation Comme nts HEMOGLOBIN A1c (test code = 16890) 8.9 % Surendra Ross AustinHEMOGLOBIN [id number] 00:00:00* Test Item Value Reference Range Interpretation Comme nts HEMOGLOBIN A1c (test code = 99015) 8.9 % Surendra Ross AustinHEMOGLOBIN [id number] 00:00:00* Test Item Value Reference Range Interpretation Comme nts HEMOGLOBIN A1c (test code = 29571) 8.9 % Surendra Ross AustinHEMOGLOBIN [id number] 00:00:00* Test Item Value Reference Range Interpretation Comme nts HEMOGLOBIN A1c (test code = 40610) 8.9 % Surendra Ross AustinTSH, THIRD [id number] 03:54:20* Test Item Value Reference Range Interpretation Comme carmen TSH, THIRD GENERATION (test code = 2821) 2.700 UIU/ML 0.400-4.100 UNLESS OTHERWISE INDICATED, [facility] [address] [place] [address], [place] [address] LIP OF SHANK CUTTER: JANUSZ JJ M.D. CLIA NUMBER [id number] [facility] [place]. [id number] HEMOGLOBIN [id number] 03:14:04* Test Item Value Reference Range Interpretation Comme nts HEMOGLOBIN A1c (test code = 23931) 9.3 % 4.2-5.6 H [employer] GUIDELINES FOR HGB A1C: [...] OR LABORATORY CONSULTATION. CBC W/AUTO DIFF WITH [id number] 02:43:09* Test Item Value Reference Range Interpretation [...] 0.00-0.10 ABS NUCLEATED RBCS (test code = 37138) 0.00 K/UL 0.00-0.11 COMPREHENSIVE METABOLIC [id number] 02:34:07* Test Item Value Reference Range Interpretation [...] 3.5-5.2 CALC GLOBULIN (test code = 2240) 2.6 G/DL 1.9-3.7 CALC A/G RATIO (test code = 2233) 1.7 RATIO 1.0-2.6 BILIRUBIN, TOTAL (test code = 2206) 0.4 MG/DL See_Comment [Automated me ssage] The system which generated this result transmitted reference range: <=1.2. The reference range was not used to interpret this result as normal/abnormal. ALKALINE PHOSPHATASE (test code = 2203) 55 U/L 40-142 AST (test code = 2218) 17 U/L 9-40 ALT (test code = 2219) 14 U/L 5-40 HEPATIC FUNCTION [id number] 02:34:07* Test Item Value Reference Range Interpretation Comme nts PROTEIN, TOTAL (test code = 2229) 7.1 G/DL 6.1-8.3 ALBUMIN (test code = 2201) 4.5 G/DL 3.5-5.2 BILIRUBIN, TOTAL (test code = 2207) 0.4 MG/DL See_Comment [Automated [employer] Click[employer]] The system which generated this result transmitted reference range: <=1.2. The reference range was not used to interpret this result as normal/abnormal. BILIRUBIN, DIRECT (test code = 2021) 0.2 MG/DL 0.0-0.3 ALKALINE PHOSPHATASE (test code = 2204) 55 U/L 40-142 AST (test code = 2218) 17 U/L 9-40 ALT (test code = 2219) 14 U/L 5-40 COMPREHENSIVE METABOLIC PANEL [ADDED]2021-10-24 00:00:00* Test Item Value Reference Range Interpretation Comme nts GLUCOSE (test code = 2217) 119 MG/DL BUN (test code = 2208) 15 MG/DL CREATININE (test code = 2214) 0.93 MG/DL eGFR (2020 CKD-EPI) (test co de = 07939) 64 ML/MIN/1.73 CALC BUN/CREAT (test code = [...] ABS NUCLEATED RBCS (test cod e = 03670) 0.00 K/UL Surendra WhiteHEPATIC FUNCTION PANEL [ADDED]2021-10-24 [...] (test code = 2219) 14 U/L Surendra RodriugezH, THIRD GENERATION [ADDED]2021-10-24 00:00:00* Test Item Value Reference Range Interpretation Comme nts TSH, THIRD GENERATION (test code = 2821) 2.700 UIU/ML Surendra WhiteHEMOGLOBIN A1c [ADDED]2021-10-24 00:00:00* Test Item Value Reference Range Interpretation Comme nts HEMOGLOBIN A1c (test code = 33824) 9.3 % Surendra Ross ChristopherCOMPREHENSIVE METABOLIC PANEL [ADDED]2021-10-24 00:00:00* Test Item Value Reference Range Interpretation Comme nts GLUCOSE (test code = 2217) 119 MG/DL BUN (test code = 2208) 15 MG/DL CREATININE (test code = 2214) 0.93 MG/DL eGFR (2020 CKD-EPI) (test co de = 63219) 64 ML/MIN/1.73 CALC BUN/CREAT (test code = [...] ABS NUCLEATED RBCS (test cod e = 44804) 0.00 K/UL Surendra WhiteHEPATIC FUNCTION PANEL [ADDED]2021-10-24 [...] Comme nts HEMOGLOBIN A1c (test code = 12658) 9.3 % Surendra WhiteCOMPREHENSIVE METABOLIC PANEL [ADDED]2021-10-24 00:00:00* Test Item Value Reference Range Interpretation Comme nts GLUCOSE (test code = 2217) 119 MG/DL BUN (test code = 2208) 15 MG/DL CREATININE (test code = 2214) 0.93 MG/DL eGFR (2020 CKD-EPI) (test co de = 31338) 64 ML/MIN/1.73 CALC BUN/CREAT (test code = [...] (test code = 2219) 14 U/L Surendra Vandana [facility] W/AUTO DIFF WITH PLATELETS [ADDED]2021-10-24 00:00:00* Test [...] ABS NUCLEATED RBCS (test cod e = 66416) 0.00 K/UL Surendra Ross ChristopherHEPATIC FUNCTION PANEL [...] (test code = 2219) 14 U/L Surendra Vandana ChristopherTSH, THIRD GENERATION [ADDED]2021-10-24 00:00:00* Test Item Value Reference Range Interpretation Comme nts TSH, THIRD GENERATION (test code = 2821) 2.700 UIU/ML Surendra Ross ChristopherHEMOGLOBIN A1c [ADDED]2021-10-24 00:00:00* Test Item Value Reference Range Interpretation Comme nts HEMOGLOBIN A1c (test code = 91955) 9.3 % Surendra Vandana ChristopherCOMPREHENSIVE METABOLIC PANEL [ADDED]2021-10-24 00:00:00* Test Item Value Reference Range Interpretation Comme nts GLUCOSE (test code = 2217) 119 MG/DL BUN (test code = 2208) 15 MG/DL CREATININE (test code = 2214) 0.93 MG/DL eGFR (2020 CKD-EPI) (test co de = 27917) 64 ML/MIN/1.73 CALC BUN/CREAT (test code = [...] ABS NUCLEATED RBCS (test cod e = 00952) 0.00 K/UL Surendra WhiteHEPATIC FUNCTION PANEL [ADDED]2021-10-24 [...] Comme nts HEMOGLOBIN A1c (test code = 94106) 9.3 % Surendra WhiteCOMPREHENSIVE METABOLIC PANEL [ADDED]2021-10-24 00:00:00* Test Item Value Reference Range Interpretation Comme nts GLUCOSE (test code = 2217) 119 MG/DL BUN (test code = 2208) 15 MG/DL CREATININE (test code = 2214) 0.93 MG/DL eGFR (2020 CKD-EPI) (test co de = 66726) 64 ML/MIN/1.73 CALC BUN/CREAT (test code = [...] ABS NUCLEATED RBCS (test cod e = 98597) 0.00 K/UL Surendra WhiteHEPATIC FUNCTION PANEL [ADDED]2021-10-24 [...] Comme nts HEMOGLOBIN A1c (test code = 33218) 9.3 % Surendra WhiteCOMPREHENSIVE METABOLIC PANEL [ADDED]2021-10-24 00:00:00* Test Item Value Reference Range Interpretation Comme nts GLUCOSE (test code = 2217) 119 MG/DL BUN (test code = 2208) 15 MG/DL CREATININE (test code = 2214) 0.93 MG/DL eGFR (2020 CKD-EPI) (test co de = 28532) 64 ML/MIN/1.73 CALC BUN/CREAT (test code = [...] ABS NUCLEATED RBCS (test cod e = 92637) 0.00 K/UL Surendra WhiteHEPATIC FUNCTION PANEL [ADDED]2021-10-24 [...] Comme nts HEMOGLOBIN A1c (test code = 26069) 9.3 % Surendra WhiteCOMPREHENSIVE METABOLIC PANEL [ADDED]2021-10-24 00:00:00* Test Item Value Reference Range Interpretation Comme nts GLUCOSE (test code = 2217) 119 MG/DL BUN (test code = 2208) 15 MG/DL CREATININE (test code = 2214) 0.93 MG/DL eGFR (2021 CKD-EPI) (test co de = 79533) 64 ML/MIN/1.73 CALC BUN/CREAT (test code = [...] (test code = 2219) 14 U/[facility] PLATELETS [ADDED]2021-10-24 00:00:00* [...] ABS NUCLEATED RBCS (test cod e = 60219) 0.00 K/UL Surendra Ross ChristopherHEPATIC FUNCTION PANEL [...] Comme nts HEMOGLOBIN A1c (test code = 83082) 9.3 % Surendra Ross ChristopherCOMPREHENSIVE METABOLIC PANEL [ADDED]2021-10-24 00:00:00* Test Item Value Reference Range Interpretation Comme nts GLUCOSE (test code = 2217) 119 MG/DL BUN (test code = 2208) 15 MG/DL CREATININE (test code = 2214) 0.93 MG/DL eGFR (2020 CKD-EPI) (test co de = 37397) 64 ML/MIN/1.73 CALC BUN/CREAT (test code = [...] ABS NUCLEATED RBCS (test cod e = 52190) 0.00 K/UL Surendra WhiteHEPATIC FUNCTION PANEL [ADDED]2021-10-24 [...] Comme nts HEMOGLOBIN A1c (test code = 29274) 9.3 % COMPREHENSIVE METABOLIC PANEL [ADDED]2021-10-24 00:00:00* Test Item Value Reference Range Interpretation Comme nts GLUCOSE (test code = 2217) 119 MG/DL BUN (test code = 2208) 15 MG/DL CREATININE (test code = 2214) 0.93 MG/DL eGFR (2020 CKD-EPI) (test co de = 77240) 64 ML/MIN/1.73 CALC BUN/CREAT (test code = [...] ABS NUCLEATED RBCS (test cod e = 65398) 0.00 K/UL HEPATIC FUNCTION PANEL [ADDED]2021-10-24 00:00:00* [...] Comme nts HEMOGLOBIN A1c (test code = 12726) 9.3 % COMPREHENSIVE METABOLIC PANEL [ADDED]2021-10-24 00:00:00* Test Item Value Reference Range Interpretation Comme nts GLUCOSE (test code = 2217) 119 MG/DL BUN (test code = 2208) 15 MG/DL CREATININE (test code = 2214) 0.93 MG/DL eGFR (2020 CKD-EPI) (test co de = 53693) 64 ML/MIN/1.73 CALC BUN/CREAT (test code = [...] ABS NUCLEATED RBCS (test cod e = 87124) 0.00 K/UL HEPATIC FUNCTION PANEL [ADDED]2021-10-24 00:00:00* [...] Comme nts HEMOGLOBIN A1c (test code = 96093) 9.3 % COMPREHENSIVE METABOLIC PANEL [ADDED]2021-10-24 00:00:00* Test Item Value Reference Range Interpretation Comme nts GLUCOSE (test code = 2217) 119 MG/DL BUN (test code = 2208) 15 MG/DL CREATININE (test code = 2214) 0.93 MG/DL eGFR (2020 CKD-EPI) (test co de = 53875) 64 ML/MIN/1.73 CALC BUN/CREAT (test code = [...] ABS NUCLEATED RBCS (test cod e = 18594) 0.00 K/UL HEPATIC FUNCTION PANEL [ADDED]2021-10-24 00:00:00* [...] Comme nts HEMOGLOBIN A1c (test code = 54048) 9.3 % COMPREHENSIVE METABOLIC PANEL [ADDED]2021-10-24 00:00:00* Test Item Value Reference Range Interpretation Comme nts GLUCOSE (test code = 2217) 119 MG/DL BUN (test code = 2208) 15 MG/DL CREATININE (test code = 2214) 0.93 MG/DL eGFR (2020 CKD-EPI) (test co de = 72789) 64 ML/MIN/1.73 CALC BUN/CREAT (test code = [...] ABS NUCLEATED RBCS (test cod e = 17610) 0.00 K/UL HEPATIC FUNCTION PANEL [ADDED]2021-10-24 00:00:00* [...] 00:00:00* Test Item Value Reference Range Interpretation Commcecily nts TSH, THIRD GENERATION (test code = 2821) 2.700 UIU/ML HEMOGLOBIN A1c [ADDED]2021-10-24 00:00:00* Test Item Value Reference Range Interpretation Commcecily nts HEMOGLOBIN A1c (test code = 10812) 9.3 % Surendra Guardado CULTURE, NO [id number] 11:52:08SPECIMEN NUMBER: [id number] URINE CULTURE, NO SENS SPECIMEN NUMBER: [id number] SPECIMEN COMMENT: URINE SOURCE: URINE REPORT STATUS: FINAL ISOLATE NUMBER 1: ORGANISM: 06/21/2021 >100,000 CFU/ML GRAM NEGATIVE BACILLI IDENTIFICATION: 06/22/2021 ESCHERICHIA COLI E. COLI AMOXICILLIN/CA SENSITIVE <=8/4AMPICILLIN SENSITIVE <=8CEFAZOLIN SENSITIVE <=2CEFTRIAXONE SENSITIVE <=1CIPROFLOXACIN RESISTANT >2LEVOFLOXACIN RESISTANT >4NITROFURANTOIN SENSITIVE <=32PIP/TAZOBAC SENSITIVE <=16TETRACYCLINE RESISTANT >8TOBRAMYCIN SENSITIVE <=4TRIMETH/SULFA SENSITIVE <= 2/38 NOTE: NUMBERS DISPLAYED REPRESENT MINIMUM INHIBITORY CONCENTRATION (JACOB) WHICH IS EXPRESSED INMCG/ML. UNLESS OTHERWISE INDICATED, ALL TESTING PERFORMED [facility] [address] [place] [address] LIP OF SHANK CUTTER: JANUSZ JJ M.D. CLIA NUMBER [id number] [place]. [id number] CULTURE, NO [id number] 00:00:00* Test Item Value Reference Range Interpretation Comme nts URINE CULTURE, NO SENS (test code = 25289) SPECIMEN NUMBER: [id number] Surendra WhiteURINE CULTURE, NO [id number] 00:00:00* Test Item Value Reference Range Interpretation Comme nts URINE CULTURE, NO SENS (test code = 07291) SPECIMEN NUMBER: [id number] Surendra WhiteURINE CULTURE, NO [id number] 00:00:00* Test Item Value Reference Range Interpretation Comme nts URINE CULTURE, NO SENS (test code = 73352) SPECIMEN NUMBER: [id number] Surendra WhiteURINE CULTURE, NO [id number] 00:00:00* Test Item Value Reference Range Interpretation Comme nts URINE CULTURE, NO SENS (test code = 39836) SPECIMEN NUMBER: [id number] Surendra Ross AustinURINE CULTURE, NO [id number] 00:00:00* Test Item Value Reference Range Interpretation Comme nts URINE CULTURE, NO SENS (test code = 51396) SPECIMEN NUMBER: [id number] Surendra WhiteURINE CULTURE, NO [id number] 00:00:00* Test Item Value Reference Range Interpretation Comme nts URINE CULTURE, NO SENS (test code = 27543) SPECIMEN NUMBER: [id number] Surendra WhiteURINE CULTURE, NO [id number] 00:00:00* Test Item Value Reference Range Interpretation Comme nts URINE CULTURE, NO SENS (test code = 28076) SPECIMEN NUMBER: [id number] Surendra WhiteURINE CULTURE, NO [id number] 00:00:00* Test Item Value Reference Range Interpretation Comme nts URINE CULTURE, NO SENS (test code = 86044) SPECIMEN NUMBER: [id number] Surendra WhiteURINE CULTURE, NO [id number] 00:00:00* Test Item Value Reference Range Interpretation Comme nts URINE CULTURE, NO SENS (test code = 17728) SPECIMEN NUMBER: [id number] URINE CULTURE, NO [id number] 00:00:00* Test Item Value Reference Range Interpretation Comme nts URINE CULTURE, NO SENS (test code = 24763) SPECIMEN NUMBER: [id number] URINE CULTURE, NO [id number] 00:00:00* Test Item Value Reference Range Interpretation Comme nts URINE CULTURE, NO SENS (test code = 63906) SPECIMEN NUMBER: [id number] URINE CULTURE, NO [id number] 00:00:00* Test Item Value Reference Range Interpretation Comme nts URINE CULTURE, NO SENS (test code = 24068) SPECIMEN NUMBER: [id number] CULTURE, [id number] 00:00:00* Test Item Value Reference Range Interpretation Comme nts CULTURE, URINE (test code = 76538) SPECIMEN NUMBER: [id number] Surendra WhiteCULTURE, [id number] 00:00:00* Test Item Value Reference Range Interpretation Comme nts CULTURE, URINE (test code = 13625) SPECIMEN NUMBER: [id number] Surendra Knowles, [id number] 00:00:00* Test Item Value Reference Range Interpretation Comme nts CULTURE, URINE (test code = 86591) SPECIMEN NUMBER: [id number] Surendra Knowles, [id number] 00:00:00* Test Item Value Reference Range Interpretation Comme nts CULTURE, URINE (test code = 38283) SPECIMEN NUMBER: [id number] Surendra Knowles, [id number] 00:00:00* Test Item Value Reference Range Interpretation Comme nts CULTURE, URINE (test code = 56745) SPECIMEN NUMBER: [id number] Surendra Knowles, [id number] 00:00:00* Test Item Value Reference Range Interpretation Comme nts CULTURE, URINE (test code = 92504) SPECIMEN NUMBER: [id number] Surendra Knowles, [id number] 00:00:00* Test Item Value Reference Range Interpretation Comme nts CULTURE, URINE (test code = 34310) SPECIMEN NUMBER: [id number] Surendra Knowles, [id number] 00:00:00* Test Item Value Reference Range Interpretation Comme nts CULTURE, URINE (test code = 85694) SPECIMEN NUMBER: [id number] Surendra SilveiraLTMARCELLO, [id number] 00:00:00* Test Item Value Reference Range Interpretation Comme nts CULTURE, URINE (test code = 30629) SPECIMEN NUMBER: [id number] CULTURE, [id number] 00:00:00* Test Item Value Reference Range Interpretation Comme nts CULTURE, URINE (test code = 23097) SPECIMEN NUMBER: [id number] CULTURE, [id number] 00:00:00* Test Item Value Reference Range Interpretation Comme nts CULTURE, URINE (test code = 23971) SPECIMEN NUMBER: [id number] CULTURE, [id number] 00:00:00* Test Item Value Reference Range Interpretation Comme nts CULTURE, URINE (test code = 45419) SPECIMEN NUMBER: [id number] LIPID [id number] 00:00:00* Test Item Value Reference Range Interpretation Comme nts CHOLESTEROL (test code = 2210) 178 MG/DL TRIGLYCERIDES (test code = 2232) 154 MG/DL HDL CHOLESTEROL (test code = 2220) 52 MG/DL CALC LDL CHOL (test code = 2237) 100 MG/DL RISK RATIO LDL/HDL (test cod e = 2238) 1.92 RATIO Surendra WhiteCOMPREHENSIVE METABOLIC [id number] 00:00:00* Test Item Value Reference Range Interpretation Comme nts GLUCOSE (test code = 2217) 140 MG/DL BUN (test code = 2208) 24 MG/DL CREATININE (test code = 2214) 0.92 MG/DL eGFR AMER. (test cod e = 41460) 71 ML/MIN/1.73 eGFR NON- AMER. (test code = 60769) 61 ML/MIN/1.73 CALC BUN/CREAT (test code = [...] code = 2219) 20 U/L Surendra WhiteHEMOGLOBIN [id number] 00:00:00* Test Item Value Reference Range Interpretation Comme nts HEMOGLOBIN A1c (test code = 62202) 9.2 % Surendra WhiteLIPID [id number] 00:00:00* Test Item Value Reference Range Interpretation Comme nts CHOLESTEROL (test code = 2210) 178 MG/DL TRIGLYCERIDES (test code = 2232) 154 MG/DL HDL CHOLESTEROL (test code = 2220) 52 MG/DL CALC LDL CHOL (test code = 2237) 100 MG/DL RISK RATIO LDL/HDL (test cod e = 2238) 1.92 RATIO Surendra WhiteCOMPREHENSIVE METABOLIC [id number] 00:00:00* Test Item Value Reference Range Interpretation Comme nts GLUCOSE (test code = 2217) 140 MG/DL BUN (test code = 2208) 24 MG/DL CREATININE (test code = 2214) 0.92 MG/DL eGFR AMER. (test cod e = 58503) 71 ML/MIN/1.73 eGFR NON- AMER. (test code = 32827) 61 ML/MIN/1.73 CALC BUN/CREAT (test code = [...] code = 2219) 20 U/L Surendra WhiteHEMOGLOBIN [id number] 00:00:00* Test Item Value Reference Range Interpretation Comme nts HEMOGLOBIN A1c (test code = 48437) 9.2 % Surendra Ross AustinLIPID [id number] 00:00:00* Test Item Value Reference Range Interpretation Comme nts CHOLESTEROL (test code = 2210) 178 MG/DL TRIGLYCERIDES (test code = 2232) 154 MG/DL HDL CHOLESTEROL (test code = 2220) 52 MG/DL CALC LDL CHOL (test code = 2237) 100 MG/DL RISK RATIO LDL/HDL (test cod e = 2238) 1.92 RATIO Surendra WhtieCOMPREHENSIVE METABOLIC [id number] 00:00:00* Test Item Value Reference Range Interpretation Comme nts GLUCOSE (test code = 2217) 140 MG/DL BUN (test code = 2208) 24 MG/DL CREATININE (test code = 2214) 0.92 MG/DL eGFR AMER. (test cod e = 98046) 71 ML/MIN/1.73 eGFR NON- AMER. (test code = 00662) 61 ML/MIN/1.73 CALC BUN/CREAT (test code = [...] code = 2219) 20 U/L Surendra WhiteHEMOGLOBIN [id number] 00:00:00* Test Item Value Reference Range Interpretation Comme nts HEMOGLOBIN A1c (test code = 43735) 9.2 % Surendra WhiteLIPID [id number] 00:00:00* Test Item Value Reference Range Interpretation Comme nts CHOLESTEROL (test code = 2210) 178 MG/DL TRIGLYCERIDES (test code = 2232) 154 MG/DL HDL CHOLESTEROL (test code = 2220) 52 MG/DL CALC LDL CHOL (test code = 2237) 100 MG/DL RISK RATIO LDL/HDL (test cod e = 2238) 1.92 RATIO Surendra WhiteCOMPREHENSIVE METABOLIC [id number] 00:00:00* Test Item Value Reference Range Interpretation Comme nts GLUCOSE (test code = 2217) 140 MG/DL BUN (test code = 2208) 24 MG/DL CREATININE (test code = 2214) 0.92 MG/DL eGFR AMER. (test cod e = 03539) 71 ML/MIN/1.73 eGFR NON- AMER. (test code = 86640) 61 ML/MIN/1.73 CALC BUN/CREAT (test code = [...] code = 2219) 20 U/L Surendra WhiteHEMOGLOBIN [id number] 00:00:00* Test Item Value Reference Range Interpretation Comme [facility] HEMOGLOBIN A1c (test code = 92214) 9.2 % Surendra WhiteLIPID [id number] 00:00:00* Test Item Value Reference Range Interpretation Comme nts CHOLESTEROL (test code = 2210) 178 MG/DL TRIGLYCERIDES (test code = 2232) 154 MG/DL HDL CHOLESTEROL (test code = 2220) 52 MG/DL CALC LDL CHOL (test code = 2237) 100 MG/DL RISK RATIO LDL/HDL (test cod e = 2238) 1.92 RATIO Surendra WhietCOMPREHENSIVE METABOLIC [id number] 00:00:00* Test Item Value Reference Range Interpretation Comme nts GLUCOSE (test code = 2217) 140 MG/DL BUN (test code = 2208) 24 MG/DL CREATININE (test code = 2214) 0.92 MG/DL eGFR AMER. (test cod e = 97819) 71 ML/MIN/1.73 eGFR NON- AMER. (test code = 00605) 61 ML/MIN/1.73 CALC BUN/CREAT (test code = [...] code = 2219) 20 U/L Surendra WhiteHEMOGLOBIN [id number] 00:00:00* Test Item Value Reference Range Interpretation Comme [facility] HEMOGLOBIN A1c (test code = 22371) 9.2 % Surendra WhiteLIPID [id number] 00:00:00* Test Item Value Reference Range Interpretation Comme nts CHOLESTEROL (test code = 2210) 178 MG/DL TRIGLYCERIDES (test code = 2232) 154 MG/DL HDL CHOLESTEROL (test code = 2220) 52 MG/DL CALC LDL CHOL (test code = 2237) 100 MG/DL RISK RATIO LDL/HDL (test cod e = 2238) 1.92 RATIO Surendra WhiteCOMPREHENSIVE METABOLIC [id number] 00:00:00* Test Item Value Reference Range Interpretation Comme nts GLUCOSE (test code = 2217) 140 MG/DL BUN (test code = 2208) 24 MG/DL CREATININE (test code = 2214) 0.92 MG/DL eGFR AMER. (test cod e = 66793) 71 ML/MIN/1.73 eGFR NON- AMER. (test code = 95118) 61 ML/MIN/1.73 CALC BUN/CREAT (test code = [...] code = 2219) 20 U/L Surendra WhiteHEMOGLOBIN [id number] 00:00:00* Test Item Value Reference Range Interpretation Comme [facility] HEMOGLOBIN A1c (test code = 74169) 9.2 % Surendra WhiteLIPID [id number] 00:00:00* Test Item Value Reference Range Interpretation Comme nts CHOLESTEROL (test code = 2210) 178 MG/DL TRIGLYCERIDES (test code = 2232) 154 MG/DL HDL CHOLESTEROL (test code = 2220) 52 MG/DL CALC LDL CHOL (test code = 2237) 100 MG/DL RISK RATIO LDL/HDL (test cod e = 2238) 1.92 RATIO Surendra WhiteCOMPREHENSIVE METABOLIC [id number] 00:00:00* Test Item Value Reference Range Interpretation Comme nts GLUCOSE (test code = 2217) 140 MG/DL BUN (test code = 2208) 24 MG/DL CREATININE (test code = 2214) 0.92 MG/DL eGFR AMER. (test cod e = 62191) 71 ML/MIN/1.73 eGFR NON- AMER. (test code = 81457) 61 ML/MIN/1.73 CALC BUN/CREAT (test code = [...] code = 2219) 20 U/L Surendra WhiteHEMOGLOBIN [id number] 00:00:00* Test Item Value Reference Range Interpretation Comme [facility] HEMOGLOBIN A1c (test code = 58773) 9.2 % Surendra WhiteLIPID [id number] 00:00:00* Test Item Value Reference Range Interpretation Comme nts CHOLESTEROL (test code = 2210) 178 MG/DL TRIGLYCERIDES (test code = 2232) 154 MG/DL HDL CHOLESTEROL (test code = 2220) 52 MG/DL CALC LDL CHOL (test code = 2237) 100 MG/DL RISK RATIO LDL/HDL (test cod e = 2238) 1.92 RATIO Surendra WhiteCOMPREHENSIVE METABOLIC [id number] 00:00:00* Test Item Value Reference Range Interpretation Comme nts GLUCOSE (test code = 2217) 140 MG/DL BUN (test code = 2208) 24 MG/DL CREATININE (test code = 2214) 0.92 MG/DL eGFR AMER. (test cod e = 53730) 71 ML/MIN/1.73 eGFR NON- AMER. (test code = 65668) 61 ML/MIN/1.73 CALC BUN/CREAT (test code = [...] code = 2219) 20 U/L Surendra WhiteHEMOGLOBIN [id number] 00:00:00* Test Item Value Reference Range Interpretation Comme nts HEMOGLOBIN A1c (test code = 01698) 9.2 % LIPID [id number] 00:00:00* Test Item Value Reference Range Interpretation Comme nts CHOLESTEROL (test code = 2210) 178 MG/DL TRIGLYCERIDES (test code = 2232) 154 MG/DL HDL CHOLESTEROL (test code = 2220) 52 MG/DL CALC LDL CHOL (test code = 2237) 100 MG/DL RISK RATIO LDL/HDL (test cod e = 2238) 1.92 RATIO COMPREHENSIVE METABOLIC [id number] 00:00:00* Test Item Value Reference Range Interpretation Comme nts GLUCOSE (test code = 2217) 140 MG/DL BUN (test code = 2208) 24 MG/DL CREATININE (test code = 2214) 0.92 MG/DL eGFR AMER. (test cod e = 52908) 71 ML/MIN/1.73 eGFR NON- AMER. (test code = 18665) 61 ML/MIN/1.73 CALC BUN/CREAT (test code = [...] (test code = 2219) 20 U/L HEMOGLOBIN [id number] 00:00:00* Test Item Value Reference Range Interpretation Comme nts HEMOGLOBIN A1c (test code = 65907) 9.2 % LIPID [id number] 00:00:00* Test Item Value Reference Range Interpretation Comme nts CHOLESTEROL (test code = 2210) 178 MG/DL TRIGLYCERIDES (test code = 2232) 154 MG/DL HDL CHOLESTEROL (test code = 2220) 52 MG/DL CALC LDL CHOL (test code = 2237) 100 MG/DL RISK RATIO LDL/HDL (test cod e = 2238) 1.92 RATIO COMPREHENSIVE METABOLIC [id number] 00:00:00* Test Item Value Reference Range Interpretation Comme nts GLUCOSE (test code = 2217) 140 MG/DL BUN (test code = 2208) 24 MG/DL CREATININE (test code = 2214) 0.92 MG/DL eGFR AMER. (test cod e = 21040) 71 ML/MIN/1.73 eGFR NON- AMER. (test code = 97890) 61 ML/MIN/1.73 CALC BUN/CREAT (test code = [...] (test code = 2219) 20 U/L HEMOGLOBIN [id number] 00:00:00* Test Item Value Reference Range Interpretation Comme nts HEMOGLOBIN A1c (test code = 22663) 9.2 % LIPID [id number] 00:00:00* Test Item Value Reference Range Interpretation Comme nts CHOLESTEROL (test code = 2210) 178 MG/DL TRIGLYCERIDES (test code = 2232) 154 MG/DL HDL CHOLESTEROL (test code = 2220) 52 MG/DL CALC LDL CHOL (test code = 2237) 100 MG/DL RISK RATIO LDL/HDL (test cod e = 2238) 1.92 RATIO COMPREHENSIVE METABOLIC [id number] 00:00:00* Test Item Value Reference Range Interpretation Comme nts GLUCOSE (test code = 2217) 140 MG/DL BUN (test code = 2208) 24 MG/DL CREATININE (test code = 2214) 0.92 MG/DL eGFR AMER. (test cod e = 39029) 71 ML/MIN/1.73 eGFR NON- AMER. (test code = 66266) 61 ML/MIN/1.73 CALC BUN/CREAT (test code = [...] (test code = 2219) 20 U/L HEMOGLOBIN [id number] 00:00:00* Test Item Value Reference Range Interpretation Comme nts HEMOGLOBIN A1c (test code = 72404) 9.2 % LIPID [id number] 00:00:00* Test Item Value Reference Range Interpretation Comme nts CHOLESTEROL (test code = 2210) 178 MG/DL TRIGLYCERIDES (test code = 2232) 154 MG/DL HDL CHOLESTEROL (test code = 2220) 52 MG/DL CALC LDL CHOL (test code = 2237) 100 MG/DL RISK RATIO LDL/HDL (test cod e = 2238) 1.92 RATIO COMPREHENSIVE METABOLIC [id number] 00:00:00* Test Item Value Reference Range Interpretation Comme nts GLUCOSE (test code = 2217) 140 MG/DL BUN (test code = 2208) 24 MG/DL CREATININE (test code = 2214) 0.92 MG/DL eGFR AMER. (test cod e = 55613) 71 ML/MIN/1.73 eGFR NON- AMER. (test code = 91366) 61 ML/MIN/1.73 CALC BUN/CREAT (test code = [...] (test code = 2219) 20 U/L HEMOGLOBIN [id number] 00:00:00* Test Item Value Reference Range Interpretation Comme nts HEMOGLOBIN A1c (test code = 35337) 9.2 % Surendra Knowles, [id number] 00:00:00* Test Item Value Reference Range Interpretation Comme nts CULTURE, URINE (test code = 67512) SPECIMEN NUMBER: [id number] Surendra SilveiraLTMARCELLO, [id number] 00:00:00* Test Item Value Reference Range Interpretation Comme nts CULTURE, URINE (test code = 50204) SPECIMEN NUMBER: [id number] Surendra SilveiraLTMARCELLO, [id number] 00:00:00* Test Item Value Reference Range Interpretation Comme nts CULTURE, URINE (test code = 40896) SPECIMEN NUMBER: [id number] Surendra SilveiraLTMARCELLO, [id number] 00:00:00* Test Item Value Reference Range Interpretation Comme nts CULTURE, URINE (test code = 22992) SPECIMEN NUMBER: [id number] Surendra SilveiraLTMARCELLO, [id number] 00:00:00* Test Item Value Reference Range Interpretation Comme nts CULTURE, URINE (test code = 62169) SPECIMEN NUMBER: [id number] Surendra SilveiraLTMARCELLO, [id number] 00:00:00* Test Item Value Reference Range Interpretation Comme nts CULTURE, URINE (test code = 38559) SPECIMEN NUMBER: [id number] Surendra F AustinCULTURE, [id number] 00:00:00* Test Item Value Reference Range Interpretation Comme nts CULTURE, URINE (test code = 81546) SPECIMEN NUMBER: [id number] Surendra WhiteCULTMARCELLO, [id number] 00:00:00* Test Item Value Reference Range Interpretation Comme nts CULTURE, URINE (test code = 26851) SPECIMEN NUMBER: [id number] CULTURE, [id number] 00:00:00* Test Item Value Reference Range Interpretation Comme nts CULTURE, URINE (test code = 45253) SPECIMEN NUMBER: [id number] CULTURE, [id number] 00:00:00* Test Item Value Reference Range Interpretation Comme nts CULTURE, URINE (test code = 26828) SPECIMEN NUMBER: [id number] CULTURE, [id number] 00:00:00* Test Item Value Reference Range Interpretation Comme nts CULTURE, URINE (test code = 31444) SPECIMEN NUMBER: [id number] CULTURE, [id number] 00:00:00* Test Item Value Reference Range Interpretation Comme nts CULTURE, URINE (test code = 14617) SPECIMEN NUMBER: [id number] Surendra WhiteCULTURE, [id number] 00:00:00* Test Item Value Reference Range Interpretation Comme nts CULTURE, URINE (test code = 37688) SPECIMEN NUMBER: [id number] Surendra WhiteCULTURE, [id number] 00:00:00* Test Item Value Reference Range Interpretation Comme nts CULTURE, URINE (test code = 57695) SPECIMEN NUMBER: [id number] Surendra WhiteCULTURE, [id number] 00:00:00* Test Item Value Reference Range Interpretation Comme nts CULTURE, URINE (test code = 94380) SPECIMEN NUMBER: [id number] Surendra Ross AustinCULTURE, [id number] 00:00:00* Test Item Value Reference Range Interpretation Comme nts CULTURE, URINE (test code = 95079) SPECIMEN NUMBER: [id number] Surendra WhiteCULTURE, [id number] 00:00:00* Test Item Value Reference Range Interpretation Comme nts CULTURE, URINE (test code = 54446) SPECIMEN NUMBER: [id number] Surendra SilveiraLTURE, [id number] 00:00:00* Test Item Value Reference Range Interpretation Comme nts CULTURE, URINE (test code = 92890) SPECIMEN NUMBER: [id number] Surendra SilveiraLTMARCELLO, [id number] 00:00:00* Test Item Value Reference Range Interpretation Comme nts CULTURE, URINE (test code = 10442) SPECIMEN NUMBER: [id number] Surendra SilveiraLTMARCELLO, [id number] 00:00:00* Test Item Value Reference Range Interpretation Comme nts CULTURE, URINE (test code = 08030) SPECIMEN NUMBER: [id number] Surendra SilveiraLTURE, [id number] 00:00:00* Test Item Value Reference Range Interpretation Comme nts CULTURE, URINE (test code = 61989) SPECIMEN NUMBER: [id number] CULTURE, [id number] 00:00:00* Test Item Value Reference Range Interpretation Comme nts CULTURE, URINE (test code = 25457) SPECIMEN NUMBER: [id number] CULTURE, [id number] 00:00:00* Test Item Value Reference Range Interpretation Comme nts CULTURE, URINE (test code = 65634) SPECIMEN NUMBER: [id number] CULTURE, [id number] 00:00:00* Test Item Value Reference Range Interpretation Comme nts CULTURE, URINE (test code = 60057) SPECIMEN NUMBER: [id number] CULTURE, [id number] 00:00:00* Test Item Value Reference Range Interpretation Comme nts CULTURE, URINE (test code = 10917) SPECIMEN NUMBER: [id number] Surendra WhiteCULTURE, [id number] 00:00:00* Test Item Value Reference Range Interpretation Comme nts CULTURE, URINE (test code = 18401) SPECIMEN NUMBER: [id number] Surendra SilveiraLTURE, [id number] 00:00:00* Test Item Value Reference Range Interpretation Comme nts CULTURE, URINE (test code = 26855) SPECIMEN NUMBER: [id number] Surendra WhiteCULTMARCELLO, [id number] 00:00:00* Test Item Value Reference Range Interpretation Comme nts CULTURE, URINE (test code = 56777) SPECIMEN NUMBER: [id number] Surendra SilveiraLTURE, [id number] 00:00:00* Test Item Value Reference Range Interpretation Comme nts CULTURE, URINE (test code = 47834) SPECIMEN NUMBER: [id number] Surendra SilveiraLTMARCELLO, [id number] 00:00:00* Test Item Value Reference Range Interpretation Comme nts CULTURE, URINE (test code = 25045) SPECIMEN NUMBER: [id number] Surendra SilveiraLTURE, [id number] 00:00:00* Test Item Value Reference Range Interpretation Comme nts CULTURE, URINE (test code = 40084) SPECIMEN NUMBER: [id number] Surendra SilveiraLTURE, [id number] 00:00:00* Test Item Value Reference Range Interpretation Comme nts CULTURE, URINE (test code = 32133) SPECIMEN NUMBER: [id number] CULTURE, [id number] 00:00:00* Test Item Value Reference Range Interpretation Comme nts CULTURE, URINE (test code = 05625) SPECIMEN NUMBER: [id number] CULTURE, [id number] 00:00:00* Test Item Value Reference Range Interpretation Comme nts CULTURE, URINE (test code = 34173) SPECIMEN NUMBER: [id number] CULTURE, [id number] 00:00:00* Test Item Value Reference Range Interpretation Comme nts CULTURE, URINE (test code = 44402) SPECIMEN NUMBER: [id number] YUDELKA, [id number] 00:00:00* Test Item Value Reference Range Interpretation Comme nts CULTURE, URINE (test code = 52443) SPECIMEN NUMBER: [id number] Surendra White Consult Notes Date/Time Note Provider Source 2024-06-29 15:14:22 Associated Order(s): CONSULT SPEECH Speech-Language Pathology Clinical Swallow Evaluation 06/29/2024 Avelino Diaz : 1945 Age/Sex: 79 year old female Time IN/OUT: 1767-3067 Referring Physician: Aric Garcia DO Date of Referral: 06/27/2024 Reason for Referral: dysphagia Date of Admission/Onset: 06/24/2024 SUBJECTIVE: Pt awake and reclining in her bed independently. Pt agreeable to the swallow evaluation. SUPERVISOR TELEPHONE INFORMATION raised bed to 50 degrees. Pt able to follow basic commands; however, she was confused on her date of , the current year, and why she was in the hospital at all. OBJECTIVE: is being seen for a clinical swallow evaluation. Avelino Diaz is a 79 year old female admitted for acute respiratory failure with hypoxia with PMH significant for obesity, HTN, DM II with neuropathy, HLD, CAD s/p PCI, paroxysmal A. Fib, chronic HFpEF, COPD, GERD, depression and anxiety. Pt hospitalized from 05/24/2024 to 06/08/2024 with pneumonia and COPD exacerbation. Pt appears to have pneumonia again. Pertinent Imaging: CT Chest pulmonary angiogram Result Date: 06/27/2024 1. No evidence of acute or chronic pulmonary embolism through the level of the segmental branches. The subsegmental branches could not be evaluated due to motion artifact. 2. Findings in the lower lungs and throughout the right lung concerning for pneumonia or aspiration, overall increased from prior imaging. 3. Calcified atherosclerosis at the ostium of the left subclavian artery resulting in moderate stenosis. 4. Small hiatal hernia. XR Chest 1 vw Result Date: 06/27/2024 1. Partial clearing of the right basilar infiltrate 2. Persistent left basilar atelectasis HS:Y Chest 1 vw Result Date: 06/24/2024 Improved left lung base aeration. Increased conspicuity of right infrahilar airspace opacities, likely infectious/inflammatory nature. RL: [id number] End of Report. Chest 1 vw Result Date: 05/31/2024 There is mild worsening of left lower lobe atelectasis versus infiltrate with small left-sided pleural effusion. The right lung is clear. There is no pneumothorax. RL: [id number] Previous SUPERVISOR TELEPH[employer] INFORMATION Services/Swallow History: Pt was consulted approximately 6 months ago on 10/22/2023 for stroke activation (dysphagia, speech-language/cognitive-linguisti c evaluation). "Prognosis: good for safe po intake, improved functional communication, and improved cognitive-communication skills with skilled SUPERVISOR TELEPHONE INFORMATION therapy, time, adherence to SUPERVISOR TELEPHONE INFORMATION recommendations, family/caregiver support, improvement in alertness and mental status, and universal swallow precautions due to above findings. Additional Referrals: - Consider further esophageal work-up with full barium swallow and/or consult GI as indicated. Pt with increased belching during PO trials. Discharge Recommendations: - Recommend referral for outpatient SUPERVISOR TELEPHONE INFORMATION evaluation/treatment. - Recommend continued SUPERVISOR TELEPHONE INFORMATION services at d/c facility, ideally at inpatient neuro rehab type of facility if feasible." Past Medical History: Diagnosis Date Anxiety Atrial fibrillation Depression Diabetes mellitus type II, controlled Fluid retention GERD (gastroesophageal reflux disease) HTN (hypertension) Hyperlipidemia Left knee pain 07/11/2015 Nerve pain Past Surgical History: Procedure Laterality Date APPENDECTOMY BACK SURGERY CHOLECYSTECTOMY ESOPHAGOGASTRODUODENOSCOPY N/A 02/13/2016 Surgeon: Wendy Mcclellan MD; [place] [facility] [place] CA ANES NERVE MUSC TENDON FASCIA&BURSA KNEE&/POPLT CA DILATION ESOPH UNGUIDED SOUND/BOUGIE 1/MULT PASS 02/13/2016 CA ESOPHAGOGASTRODUODENOSCOPY TRANSORAL DIAGNOSTIC 02/13/2016 TONSILLECTOMY TOTAL KNEE ARTHROPLASTY Left General Behavior: Alert, Calm, Confused, and Lethargic Hearing: WFL for speech Respiratory Status: high flow nasal cannula: 40L/min, 60% FiO2 Orientation/Cognition: - Patient oriented to: person and place - Response type: verbal - Follows 1-step commands: Yes Current Diet Texture/Means of Nutrition: regular (IDDSI level 7)-textured diet with thin liquids (IDDSI level 0) Oral Motor Exam Dentition and Oral Cavity: dentate, natural dentition, dry oral mucosa, and wear on teeth indicative of possible teeth grinding Face within normal limits and symmetrical Jaw within normal limits and symmetrical Lips within normal limits and symmetrical Tongue within normal limits and midline on protrusion Palate within normal limits and symmetrical Vocal Quality clear and weak Speech clear/intelligible CLINICAL SWALLOW EVALUATION Swallows on command: Yes Handles Secretions: Yes Volitional Cough: present Spontaneous Cough: No PO trials were administered by patient and SUPERVISOR TELEPHONE INFORMATION. Patient was provided with multiple bites/sips of ice chips, thin liquid (0), pudding (4), and regular solid (7) consistencies with the following observations: Oral Stage Anterior leakage of bolus observed (right) with thin liquid (0) via tsp Pocketing of bolus not observed Subjectively prolonged oral phase not observed Oral residue observed (diffuse) with regular solid (7) cracker. Cleared with cued second dry swallow and small sip of water Mastication WNL Pharyngeal Stage Subjectively reduced laryngeal elevation not observed Coughing or throat clearing not observed Change in voice quality not observed Multiple swallows subjectively not observed Respiratory sufficiency and coordination increased work of breathing - on high flow nasal canula Report of globus sensation does not report 3 oz water challenge passed Patient/Family/Staff education: Provided verbally. Discussed findings of evaluation, recommendations and SUPERVISOR TELEPHONE INFORMATION plan of care. Discussed recommendation/option for instrumental swallow assessment. Discussed risks of aspiration/dysphagia and possible associated complications including respiratory distress, respiratory infections (such as PNA), weight loss/difficulty meeting nutritional needs, possible need for mechanical ventilation, and even . Discussed recommendations for reducing risks of acquiring an aspiration-related respiratory infection including frequent, thorough oral hygiene care and maintaining good mobility as able. Discussed importance of frequent, thorough oral hygiene care. RN and referring provider notified of findings and recommendations. Patient/Family goal: safe PO intake ASSESSMENT/IMPRESSIONS: Avelino Diaz presents with: Diagnosis: possible oropharyngeal dysphagia and suspected cognitive or behavioral-based feeding difficulty Etiology of suspected dysphagia/Risk factors for dysphagia: advanced age, general deconditioning, AMS, history of stroke, dementia, COPD, tenuous respiratory status and difficulty coordinating respiration and swallowing, need for NIV/HFNC which causes constant positive pressure in the upper airway, and secondary to esophageal component Observations/Complaints: anterior loss, audible swallows, no overt s/sx of aspiration, and no signs of discomfort or distress Factors raising concern for aspiration or pharyngeal dysphagia: chest imaging concerning for pneumonia or infiltrate, elevated WBC, need for supplemental oxygen, history of stroke, GERD, COPD, and A. Fib, and recurrent pneumonia Suspected risk for aspiration: yes Factors increasing risk for aspiration-related respiratory complication such as pneumonia: reduced mobility, dependence on others for oral hygiene and feeding, impaired cognition, and tenuous respiratory status Risk for malnutrition/dehydration or not meeting nutritional needs: moderate Additional comments: Patient/family would likely benefit from goals of care discussions in re: to dysphagia and risk for aspiration. Recommend medical team readdress goals of care with patient/family as patient is likely at continued risk for aspiration as well as possible readmissions in the future for aspiration and malnutrition related illnesses. *Note: aspiration cannot be ruled out nor confirmed without instrumental assessment/imaging. Prognosis: pending instrumental assessment for safe po intake with skilled SUPERVISOR TELEPHONE INFORMATION therapy, adherence to SUPERVISOR TELEPHONE INFORMATION recommendations, close monitoring, family/caregiver support, use of compensatory strategies, and universal swallow precautions due to above findings. RECOMMENDATIONS/GOALS: Diet: Recommend patient continue a regular (IDDSI level 7)-textured diet with thin liquids (IDDSI level 0) and swallow precautions: 1:1 supervision/assist for PO intake, sit fully upright/in chair, small single bites/sips, single sips at a time, check mouth for pocketing/residue at end of meal, remain upright after PO intake, and slow rate of intake Precautions: - Swallow Precautions: 1:1 supervision/assist for PO intake, sit fully upright/in chair, small single bites/sips, single sips at a time, check mouth for pocketing/residue at end of meal, remain upright after PO intake, and slow rate of intake - To reduce the risk of developing an aspiration-related infection, recommend the following: - Keep head of bed elevated to at least 30 degrees - Thorough oral care 3-5x daily including before any PO intake - Maintain level of physical activity and/or repositioning as much as possible - Monitor closely for s/sx of aspiration (i.e. coughing, throat clearing, wet vocal quality, fever spikes 30-60 minutes after meals, increased WBC, opacities or focal consolidations on CXR). Should these occur, seek medical attention and consider discontinuing PO intake. Instrumental Swallow Assessment: yes - Recommend medical team place order for Modified Barium Swallow Study (COOKIE) to rule out aspiration, further assess swallowing physiology, determine safety for PO intake, and determine need for further dysphagia interventions. Additional Referrals: - May consider palliative care consult to initiate/assist with goals of care conversations. Continued SUPERVISOR TELEPHONE INFORMATION services: Recommend medical team place order for Modified Barium Swallow Study (COOKIE) to rule out aspiration, further assess swallowing physiology, determine safety for PO intake, and determine need for further dysphagia interventions. Recommend SUPERVISOR TELEPHONE INFORMATION therapy 2-5x/wk for 15-45 min/session while in-house to address the following goals: Swallowing: - Patient will tolerate least restricted po diet texture for pleasure/QOL without subjective signs of discomfort or overt choking - Family/caregiver will verbalize/demonstrate appropriate use of careful hand-feeding strategies/swallow precautions for PO pleasure feeds *Plan of care re: length/frequency of treatment and goals may be modified by treating clinician as indicated. Discharge Recommendations: - Total Assistance with ADLs and IADLs. Alberta Santos M.S., CCC-SUPERVISOR TELEPHONE INFORMATION [facility] Department: [phone] [facility] 2024-06-27 13:35:00 Associated Order(s): CONSULT ADULT PHYSICAL THERAPY; CONSULT ADULT PHYSICAL THERAPY Patient agreeable to working with physical therapy. Patient semireclining in bed, No visitors present. Recommend nursing staff utilize Minimal assist x 2 to safely assist patient with mobility out of the bed or chair. PHYSICAL THERAPY EVALUATION Consult received, chart reviewed and evaluation complete this date. Patient is referred to PT for evaluation and treatment. Patient is a 79 year old female who presents to hospital for Acute respiratory failure with hypoxia [J96.01]. Discharge Recommendations: Therapy Needs and Potential: Patient [...] 32=Independent): Raw Score - Basic Mobility : 10 T-Scale Score - Basic Mobility : 28.13 Bed Mobility: Rolling: Minimal Assistance Bridging: Minimal Assistance Supine-sit: Minimal Assistance Sit to supine: Minimal Assistance Sitting balance Good Dizziness Yes, Pt was educated to perform deep breathing activities to help with symptoms. Transfers: unable to tolerate due to safety precaution and Pt not confident to stand-up Dizziness No Ambulation: patient unable to tolerate due to safety precaution and Pt not confident to stand-up Dizziness No Therapeutic exercise: patient educated in Deep breathing, Fall prevention, General strengthening, Relaxation/breathing techniques, and Safety awareness. After session, patient semireclining in bed, No visitors present. Call button provided. PT informed RN of Pt status. PLAN OF CARE: While in the hospital, PT will follow patient at least 3 times per week,once or twice a day, per patient's tolerance and needs. See below for complete details. Admit Date: 06/24/2024 Hospital Diagnosis:Acute respiratory failure with hypoxia [J96.01] PT Diagnosis: Difficulty walking, Weakness, and Malaise/fatigue [...] Location: [facility] OR Location HYSTERECTOMY CA ANES NERVE MUSC TENDON FASCIA&BURSA KNEE&/POPLT CA DILATION ESOPH UNGUIDED SOUND/BOUGIE 1/MULT PASS 02/13/2016 CA ESOPHAGOGASTRODUODENOSCOPY TRANSORAL DIAGNOSTIC 02/13/2016 TONSILLECTOMY TOTAL KNEE ARTHROPLASTY Left PRIOR LIVING SITUATION: lives with their spouse and in a house, DME: Standard Walker Prior level of Mobility: ambulates with standard Walker Suspected ischemic or hemorraghic stroke:No Subjective: Pt did not complain of pain during PT evaluation. Patient/Family Goals: To get better Patient/Family verbalizes understanding of condition: No PAIN: denies pain before and after session COMMUNICATION Primary Language: Ethiopian Able to Verbalize needs: Yes Vision:good; no issues reported Hearing:good; no issues reported ORIENTATION/COGNITION: Oriented to: person, place, and situation Awake: Yes Alert: Yes Dizzy: No Follows Commands: Yes 1-Step Yes Multi-Step Yes Inconsistent: No NEUROLOGICAL Light Touch: within functional limits bilateral LE BALANCE: Sitting: Static: Good Dynamic: Good Standing: Static: NT Dynamic: NT RANGE OF MOTION: within functional limits bilateral LE STRENGTH: 3/5 (F), bilateral LE ENDURANCE: Poor+, Nasal canula SKIN INTEGRITY: intact PROBLEM LIST: Decline in bed mobility, Decline in gait, Decline in transfers, Decreased strength, Decreased endurance, and Safety awareness deficits ASSESSMENT: Patient is a 79 year old female seen secondary to the above listed diagnosis. Patient would benefit from continued PT to address the above listed deficits to maximize independence and safety with functional mobility. Pt on 10L of oxygen thru nasal canula, Pt O2 sat was 95 before transfer and 86 right after transfer activities but went back up to 95 after breathing activity. Rehabilitation Potential: good Goals: The following goals are to maximize independence and safety with functional mobility to eventually return to prior living situation and prior functional status. Upon discharge, patient and/or family will demonstrate the followin. Rolling: Supervision Bridging: Supervision Supine-sit: Supervision Sitting balance Excellent Supine to sit: Supervision 2. Sit to stand: Minimal Assistance using standard Walker Stand to sit: Minimal Assistance using standard Walker 3. Minimal Assistance with ambulation, Feet: 5 initially using least assistive device. Treatment Plan: Gait training, Therapeutic exercise, Transfer training, Bed mobility training, and Safety education, patient/caregiver education PATIENT EDUCATION: Patient provided with preferred teaching of verbal information and demonstration on role of PT, plan of care, and goals. Shows readiness to learn. Verbal instruction and Demonstration teaching provided. Individual is able to read and verbalizes understanding of teaching provided. Total Time Tx Codes in Minutes: 15 min Total Treatment Time in Minutes: 20 min Leola Brandt PT [place] Lic No. [id number] [facility] Department of Physical Therapy TIONAL REHAB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 [facility] 2024-06-27 13:02:49 Associated Order(s): CONSULT INFECTIOUS DISEASE 79 year old female seen for pneumonia with a PMH of obesity, HTN, DM II with neuropathy, HLD, CAD s/p PCI, paroxysmal A. Fib, chronic HFpEF, COPD, GERD, depression and anxiety who presented to the hospital for acute respiratory failure with hypoxia. She is drowsy on exam and not able to provide a history. History is collected from ED physician presentation, ED notes and recent discharge summary. She was sent in from her SNF for further evaluation of worsening SOB. She was recently hospitalized from 05/24/2024 to 06/08/2024 for acute respiratory failure with hypoxia due to RLL pneumonia and a COPD exacerbation. She was weaned off of oxygen at discharge to the SNF and had been there tolerating PT when she developed SOB today. She was sent to the [facility] ED for evaluation and she was found to have acute respiratory failure with hypoxia due to right sided pneumonia and a COPD exacerbation. She was started on Duonebs, IV Solumedrol, antibiotics and oxygen therapy. He hypoxia persisted and she was started on rescue BiPAP therapy. She was transferred her for further ICU care. She feels much better today and able to eat well Past Medical History: Diagnosis Date Anxiety Atrial fibrillation Depression Diabetes mellitus type II, controlled Fluid retention GERD (gastroesophageal reflux disease) HTN (hypertension) Hyperlipidemia Left knee pain 07/11/2015 Nerve pain Past Surgical History: Procedure Laterality Date APPENDECTOMY BACK SURGERY CHOLECYSTECTOMY ESOPHAGOGASTRODUODENOSCOPY N/A 02/13/2016 Surgeon: Wendy Mcclellan MD; Location: [facility] OR Location HYSTERECTOMY CA ANES NERVE MUSC TENDON FASCIA&BURSA KNEE&/POPLT CA DILATION ESOPH UNGUIDED SOUND/BOUGIE /MULT PASS 02/13/2016 CA ESOPHAGOGASTRODUODENOSCOPY TRANSORAL DIAGNOSTIC 02/13/2016 TONSILLECTOMY TOTAL KNEE ARTHROPLASTY Left Current Facility-Administered Medications: benzonatate (TESSALON PERLES) capsule 100 mg, 100 mg, Oral, TID, Inocencio Roman MD, 100 mg at 06/27/24 0815 insulin glargine (LANTUS U-100) injection 15 Units, 15 Units, Subcutaneous, Q24H, Florina Chang MD, 15 Units at 06/26/24 2020 insulin lispro (human) (HumaLOG U-100) injection 4 Units, 4 Units, Subcutaneous, TIDAC, Aric Garcia DO, 4 Units at 06/27/24 1144 predniSONE (DELTASONE) tablet 40 mg, 40 mg, Oral, DAILY, Aric Garcia DO, 40 mg at 06/27/24 0816 ARIPiprazole (ABILIFY) tablet 2.5 mg, 2.5 mg, Oral, DAILY, Inocencio Roman MD, 2.5 mg at 06/27/24 0815 aspirin chewable tablet 81 mg, 81 mg, Oral, DAILY, Inocencio Roman MD, 81 mg at 06/27/24 0815 atorvastatin (LIPITOR) tablet 80 mg, 80 mg, Oral, QHS, Inocencio Roman MD, 80 mg at 06/26/24 2020 cefTRIAXone (ROCEPHIN) 1,000 mg in water for injection, sterile 10 mL IV Push, 1,000 mg, Intravenous, Q24H ABX, Inocencio Roman MD, 1,000 mg at 06/26/24 2342 clopidogreL (PLAVIX) 75 mg tablet 75 mg, 75 mg, Oral, DAILY, Inocencio Roman MD, 75 mg at 06/27/24 0816 dextrose 50 % in water (D50W) injection 25 mL, 25 mL, Slow IV Push, PRN, Inocencio Roman MD DULoxetine (CYMBALTA) capsule 30 mg, 30 mg, Oral, BID, Inocencio Roman MD, 30 mg at 06/27/24 0816 enoxaparin (LOVENOX) injection 40 mg, 40 mg, Subcutaneous, DAILY, Inocencio Roman MD, 40 mg at 06/27/24 0817 ezetimibe (ZETIA) tablet 10 mg, 10 mg, Oral, DAILY, Inocencio Roman MD, 10 mg at 06/27/24 0815 furosemide (LASIX) tablet 20 mg, 20 mg, Oral, DAILY, Inocencio Roman MD, 20 mg at 06/27/24 0816 glucagon HCL injection 1 mg, 1 mg, Intramuscular, PRN, Inocencio Roman MD guaiFENesin 100 mg/5 mL solution 200 mg, 200 mg, Oral, Q6HPRN, Inocencio Roman MD, 200 mg at 06/27/24 0815 ipratropium-albuteroL (DUONEB) 0.5 mg-3 mg(2.5 mg base)/3 mL nebulizer solution 3 mL, 3 mL, Inhalation, Q4H, Inocencio Roman MD, 3 mL at 06/27/24 1142 LORazepam (ATIVAN) injection 0.5 mg, 0.5 mg, Slow IV Push, Q6HPRN, Inocencio Roman MD, 0.5 mg at 06/26/24 2342 pantoprazole (PROTONIX) EC tablet 40 mg, 40 mg, Oral, QAM-0600, Inocencio Roman MD, 40 mg at 06/27/24 0643 Sliding Scale Insulin - Lispro (HumaLOG), , Subcutaneous, TID MEALS+HS, Inocencio Roman MD, 5 Units at 06/27/24 1145 spironolactone (ALDACTONE) tablet 12.5 mg, 12.5 mg, Oral, DAILY, Inocencio Roman MD, 12.5 mg at 06/27/24 0815 No Known Allergies Social History Socioeconomic History Marital status: Spouse name: Not on file Number of children: Not on file Years of education: Not on file Highest education level: Not on file Occupational History Not on file Tobacco Use Smoking status: Former Current packs/day: 1.00 Average packs/day: 1 pack/day for 30.0 years (30.0 ttl pk-yrs) Types: Cigarettes Passive exposure: Never Smokeless tobacco: Never Tobacco comments: Smoked for 30 years Substance and Sexual Activity Alcohol use: No Alcohol/week: 0.0 standard drinks of alcohol Drug use: No Sexual activity: Not on file Other Topics Concern Not on file Social History Narrative Not on file Social Determinants of Health Financial Resource Strain: Low Risk (10/22/2023) Overall Financial Resource Strain (CARDIA) Difficulty of Paying Living Expenses: Not hard at all Food Insecurity: No Food Insecurity (05/26/2024) NCSS - Food Insecurity Worried About Running Out of Food in the Last Year: No Ran Out of Food in the Last Year: No Transportation Needs: No Transportation Needs (05/26/2024) NCSS - Transportation Lack of Transportation: No Physical Activity: Inactive (10/22/2023) Exercise Vital Sign Days of Exercise per Week: 0 days Minutes of Exercise per Session: 0 min Stress: Not on file Social Connections: Unknown (10/22/2023) Social Connection and Isolation Panel [NHANES] Frequency of Communication with Friends and Family: Three times a week Frequency of Social Gatherings with Friends and Family: Not on file Attends Mormon Services: Not on file Active Member of Clubs or Organizations: Not on file Attends Club or Organization Meetings: Not on file Marital Status: Housing Stability: Not At Risk (05/26/2024) NCSS - Housing/Utilities Has Housing: Yes Worried About Losing Housing: No Unable to Get Utilities: No No family history on file. Review of system: 10 point review was performed Physical exam: Patient laying in bed not in any acute cardiopulmonary distress Vitals: 06/27/24 1100 06/27/24 1142 06/27/24 1152 06/27/24 1200 BP: 120/78 126/73 Pulse: 100 93 93 105 Resp: 23 24 26 25 Temp: 35.6 ?C (96 ?F) TempSrc: Temporal Artery SpO2: (!) 87% 94% 93% 92% Weight: Height: HEENT: anicteric, oral mucosa dry Neck: supple, no JVD, no bruits. Chest: Diminished bilateral with rhonchi right more than left Heart: RRR, S1/S2, no M/G/R Abdominal: BS normoactive, soft, ND, NT. Skin/Extremities: no rash, no cyanosis, warm and dry, no LE edema. Neurological: CN II-XII grossly intact, no focal deficits. CBC WBC (10*3/?L) Date Value 06/27/2024 11.33 (H) RBC (10*6/?L) Date Value 06/27/2024 3.63 (L) PLT (10*3/?L) Date Value 06/27/2024 395 (H) HGB (g/dL) Date Value 06/27/2024 10.9 (L) HCT (%) Date Value 06/27/2024 32.9 (L) CMP NA (mmol/L) Date Value 06/27/2024 133 (L) K (mmol/L) Date Value 06/27/2024 4.2 CALCIUM (mg/dL) Date Value 06/27/2024 9.1 CL (mmol/L) Date Value 06/27/2024 95 (L) BUN (mg/dL) Date Value 06/27/2024 27 (H) CREATININE (mg/dL) Date Value 06/27/2024 0.57 GLUCOSE (mg/dL) Date Value 06/27/2024 250 (H) CO2 TOTAL (mmol/L) Date Value 06/27/2024 33 (H) ALBUMIN (g/dL) Date Value 06/24/2024 3.5 T PROTEIN (g/dL) Date Value 06/24/2024 7.1 TOTAL BILI (mg/dL) Date Value 06/24/2024 1.3 (H) BILI UNCON (mg/dL) Date Value 06/24/2024 0.8 BILI CONJ (mg/dL) Date Value 06/24/2024 0.0 ALT(SGPT) (U/L) Date Value 11/10/2017 19 ALTv (U/L) Date Value 06/24/2024 18 AST(SGOT) (U/L) Date Value 06/24/2024 72 (H) ALK PHOS (U/L) Date Value 06/24/2024 87 XR CHEST 1 VW HISTORY: Hypoxia COMPARISON: 05/31/2024 Technical quality: adequate TECHNIQUE: 1 view(s) radiographs of the XR CHEST 1 VW FINDINGS: Improved left lung base aeration. Increased conspicuity of airspace opacities over the right infrahilar region. No pneumothorax or pleural effusion. No change in the cardiac silhouette or osseous structures. IMPRESSION Improved left lung base aeration. Increased conspicuity of right infrahilar airspace opacities, likely infectious/inflammatory nature. Assessment and plan: Bilateral lobe pneumonitis with leukocytosis and 79-year-old female with secondary tobacco exposure currently needing oxygen Patient is currently on antibiotic will continue for at least 7 days to 10 days duration depending on response Leukocytosis UTI currently being treated with Rocephin patient already finished Zithromax Monitor signs of infection with WBC and fever trends Thank you for consult TIONAL REHAB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 IM-INTERNAL MEDICINE STAFF [facility] 2024-06-27 12:27:00 Associated Order(s): CONSULT PS PASTORAL CARE Event Social Worker Clinical visited patient per consult. Intervention Social Worker Clinical was a spiritual presence and sales & service associate. Social Worker Clinical offered active compassionate listening. Social Worker Clinical provided patient with words of support and encouragement. Social Worker Clinical prayed for patient healing and recovery. Outcome/Spiritual Assessment Patient received awake in bed. Patient was pleasant and welcoming of the Social Worker Clinical visited. Patient shared that she has a supportive family. Patient welcomed prayer for healing. Patient thanked Social Worker Clinical for the visit. Plan Additional Social Worker Clinical support is available upon request. Social Worker Clinical Mirna Velásquez DMin Pastoral Care Department [phone] [facility] 2024-06-06 14:42:06 Associated Order(s): CONSULT ADULT PHYSICAL [...] Min Caroline Vizcarra PT [place] PT License [id number] [facility] Rehabilitation Services Department (phone) (fax) TIONAL REHAB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 Caroline Vizcarra PT [facility] 2024-05-30 11:07:00 Associated Order(s): CONSULT VASCULAR ACCESS [facility] Vascular Access Services MID-LINE CONSULT 79 year old female. Indication/Diagnosis: intravenous access See procedure note. TIONAL REHAB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 [facility] 2024-05-27 13:31:26 [facility] Pulmonary/Critical Care Medicine Interventional Pulmonology Chief Complaint: Respiratory failure and confusion Subjective: Avelino Diaz is a 79 year old female [...] lobe, some diffuse bronchial wall thickening. Assessment: Avelino Diaz is a 79 year old female with acute hypoxic respiratory failure possibly related to acute bronchitis vs community acquired pneumonia. Plan: Agree with antibiotics and steroids Would wean oxygen as tolerated Change Duo nebs to Q6H TIONAL REHAB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 IM-PULMONARY DISEASE STAFF [facility] 2024-05-26 13:00:00 Associated Order(s): CONSULT PS PASTORAL CARE Event Social Worker Clinical visited patient while rounding. Intervention Social Worker Clinical was a spiritual presence and sales & service associate. Social Worker Clinical offered active compassionate listening. Social Worker Clinical provided patient with words of support and encouragement. Social Worker Clinical prayed for patient healing and recovery. Outcome/Spiritual Assessment Patient received awake in bed. Patient family was at bedside. Patient was pleasant and welcomed the Social Worker Clinical visit. Patient is a Sikhism and welcomed prayer. Patient and family thanked the Social Worker Clinical for the visit. Plan Additional Social Worker Clinical support is available upon request. Social Worker Clinical Mirna Velásquez DMin [facility] Department [phone] TIONAL REHAB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 Mirna Velásquez [facility] 2024-05-25 13:05:00 Associated Order(s): CONSULT ADULT [...] Location: [facility] OR Location HYSTERECTOMY CA ANES NERVE MUSC TENDON FASCIA&BURSA KNEE&/POPLT CA DILATION ESOPH UNGUIDED SOUND/BOUGIE 1/MULT PASS 02/13/2016 CA ESOPHAGOGASTRODUODENOSCOPY TRANSORAL DIAGNOSTIC 02/13/2016 TONSILLECTOMY TOTAL KNEE [...] before and after session COMMUNICATION Primary Language: Ethiopian Able to Verbalize needs: Yes Vision:good; no [...] Treatment Time in Minutes: 25 min Leola Brandt, PT [place] Lic No. [id number] [facility] Department of Physical Therapy TIONAL REHAB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 Leola Brandt PT [facility] 2023-10-23 13:09:21 Associated Order(s): CONSULT BOTTOM FINISHER-ADULT Patient wishing to go to INPT rehab at [facility], daughter Kassandra Hidalgo, agreed. Arnol Rodriguez RN, BSN [facility] [employer] Cage Manager [phone] [facility] 2023-10-22 16:04:00 Associated Order(s): CONSULT SPEECH Speech-Language Pathology Clinical Swallow Evaluation and Speech-Language/Cognitive Evaluation 10/22/2023 Avelino Diaz : 1945 Age/Sex: 78 year old female Time IN/OUT: [id number] Referring Physician: Angel Luis Rangel MD Date of Referral: 10/22/2023 Reason for Referral: stroke activation (dysphagia, speech-language/cognitive-linguisti c) Date of Admission/Onset: 10/22/2023 SUBJECTIVE: Pt independent in room. Pt awake and alert reclining in bed. Pt's food tray was brought up for dinner and she was agreeable to the SUPERVISOR TELEPHONE INFORMATION staying to assess her swallow and to give her a speech-language/cognitive evaluation. OBJECTIVE: is being seen for a clinical swallow evaluation. Avelino Diaz is a 78 year old female [...] and agree with the above report. Previous SUPERVISOR TELEPHONE INFORMATION Services/Swallow History: None found in pt's medical chart and none reported by the pt. Past Medical History: Diagnosis Date Anxiety Atrial fibrillation Depression Diabetes mellitus type II, controlled Fluid retention GERD (gastroesophageal reflux disease) HTN (hypertension) Hyperlipidemia Left knee pain 07/11/2015 Nerve pain Past Surgical History: Procedure Laterality Date APPENDECTOMY BACK SURGERY CHOLECYSTECTOMY ESOPHAGOGASTRODUODENOSCOPY N/A 02/13/2016 Surgeon: Wendy Mcclellan MD; Location: [facility] Location HYSTERECTOMY CA ANES NERVE MUSC TENDON FASCIA&BURSA KNEE&/POPLT CA DILATION ESOPH UNGUIDED SOUND/BOUGIE /MULT PASS 02/13/2016 CA ESOPHAGOGASTRODUODENOSCOPY TRANSORAL DIAGNOSTIC 02/13/2016 TONSILLECTOMY TOTAL KNEE ARTHROPLASTY Left General Behavior: Alert, Calm, Confused, and Cooperative Hearing: WFL for speech Respiratory Status: room air Orientation/Cognition: - Patient oriented to: person, place, time, and situation. Pt had difficulty telling the SUPERVISOR TELEPHONE INFORMATION what her was; however, when the SUPERVISOR TELEPHONE INFORMATION started listing off the months of the year and got to March, [...] PO trials were administered by patient and SUPERVISOR TELEPHONE INFORMATION. Patient was provided with multiple bites/sips of [...] verbally. Discussed findings of evaluation, recommendations and SUPERVISOR TELEPHONE INFORMATION plan of care. Discussed risks of aspiration/dysphagia [...] improved speech-language skills, and improved word-finding ASSESSMENT/IMPRESSIONS: Avelino Diaz presents with: Diagnosis: suspected normal oropharyngeal [...] parts - Associations: 5/5 - Sentence Completion: 4/5 - Automatic Speech: 2/2 Prognosis: good for safe po intake, improved functional communication, and improved cognitive-communication skills with skilled SUPERVISOR TELEPHONE INFORMATION therapy, time, adherence to SUPERVISOR TELEPHONE INFORMATION recommendations, family/caregiver support, improvement in alertness and [...] with increased belching during PO trials. Continued SUPERVISOR TELEPHONE INFORMATION services: Receptive Language: - Patient will follow [...] Discharge Recommendations: - Recommend referral for outpatient SUPERVISOR TELEPHONE INFORMATION evaluation/treatment. - Recommend continued SUPERVISOR TELEPHONE INFORMATION services at d/c facility, ideally at inpatient neuro rehab type of facility if feasible. *D/C Recs subject to change pending progress made while in-house. Alberta Li M.S., [facility]-SUPERVISOR TELEPHONE INFORMATION [facility] Department: [phone] T [facility] 2023-10-22 15:27:59 Associated Order(s): CONSULT ADULT [...] N/A 02/13/2016 Surgeon: Wendy Mcclellan MD; [place] [facility] [place] CA ANES NERVE MUSC TENDON FASCIA&BURSA KNEE&/POPLT CA DILATION ESOPH UNGUIDED SOUND/BOUGIE 1/MULT PASS 02/13/2016 CA ESOPHAGOGASTRODUODENOSCOPY TRANSORAL DIAGNOSTIC 02/13/2016 TONSILLECTOMY TOTAL KNEE [...] before and after session COMMUNICATION Primary Language: Ethiopian Able to Verbalize needs: Yes Vision:good; no [...] Treatment Time in Minutes: 25 min Caroline Zackery, PT [place] PT License [id number] [facility] Rehabilitation Services Department (phone) (fax) Caroline Vizcarra PT [facility] - Health History and Physical Notes Date/Time Note Provider Source 2024-06-24 13:32:44 Medicine History & Physical Date of Service: 06/24/2024 Pt presents from: OSH ED CC: SOB History of Present Illness: Avelino Diaz is a 79 year old female with a PMH of obesity, HTN, DM II with neuropathy, HLD, CAD s/p PCI, paroxysmal A. Fib, chronic HFpEF, COPD, GERD, depression and anxiety who presented to the hospital for acute respiratory failure with hypoxia. She is drowsy on exam and not able to provide a history. History is collected from ED physician presentation, ED notes and recent discharge summary. She was sent in from her SNF for further evaluation of worsening SOB. She was recently hospitalized from 05/24/2024 to 06/08/2024 for acute respiratory failure with hypoxia due to RLL pneumonia and a COPD exacerbation. She was weaned off of oxygen at discharge to the SNF and had been there tolerating PT when she developed SOB today. She was sent to the OSH ED for evaluation and she was found to have acute respiratory failure with hypoxia due to right sided pneumonia and a COPD exacerbation. She was started on Duonebs, IV Solumedrol, antibiotics and oxygen therapy. He hypoxia persisted and she was started on rescue BiPAP therapy. She was transferred her for further ICU care ROS: Unable to obtain due to acute encephalopathy Review of Hx/Meds: No current facility-administered medications on file prior to encounter. Current Outpatient Medications on File Prior to Encounter Medication Sig Dispense Refill carvediloL 3.125 mg tablet Take 1 tablet by mouth in the morning and 1 tablet in the evening. Take with meals. Do all this for 30 days. 60 tablet 0 furosemide 20 mg tablet Take 1 tablet by mouth in the morning for 30 days. 30 tablet 0 guaiFENesin 100 mg/5 mL solution Take 10 mL by mouth every 6 (six) hours as needed for Cough. insulin lispro, human, 100 unit/mL injection inject 5 Units under the skin in the morning and 5 Units at noon and 5 Units in the evening. inject before meals. 10 mL 0 clopidogreL 75 mg tablet Take 1 tablet by mouth in the morning. 30 tablet 5 magnesium oxide 400 mg (241.3 mg magnesium) tablet Take 1 tablet by mouth in the morning and 1 tablet in the evening. 180 tablet 1 aspirin 81 mg chewable tablet Take 1 tablet by mouth in the morning. atorvastatin (LIPITOR) 80 mg tablet Take 1 tablet by mouth at bedtime. 90 tablet 3 ezetimibe 10 mg tablet Take 1 tablet by mouth in the morning. 90 tablet 3 ferrous sulfate 325 mg (65 mg iron) tablet Take 1 tablet by mouth in the morning. 30 tablet 0 insulin glargine 100 unit/mL injection inject 20 Units under the skin every 12 (twelve) hours. 10 mL 0 spironolactone 25 mg tablet Take 0.5 tablets by mouth in the morning. 30 tablet 0 DULoxetine 30 mg capsule Take 1 capsule by mouth in the morning and 1 capsule in the evening. pantoprazole 40 mg EC tablet Take 1 tablet by mouth in the morning. ARIPIPRAZOLE 2 mg tablet TAKE 1 TABLET BY MOUTH EVERY DAY (Patient taking differently: Take 1 tablet by mouth in the morning and 1 tablet in the evening.) 30 tablet 2 rOPINIRole 0.5 mg tablet Take 1 tablet by mouth at bedtime. 30 tablet 3 ipratropium-albuterol 0.5 mg-3 mg(2.5 mg base)/3 mL nebulizer solution Inhale 3 mL every 4 (four) hours as needed for Wheezing. 180 mL 0 BIOTIN ORAL Take 2,000 mg by mouth daily. GABAPENTIN ORAL Take 800 mg by mouth in the morning and 800 mg in the evening. metFORMIN (GLUCOPHAGE) 1,000 mg tablet Take 1 tablet by mouth in the morning and 1 tablet in the evening. Take with meals. I have reviewed the patient's home medications PMH: Past Medical History: Diagnosis Date Anxiety Atrial fibrillation Depression Diabetes mellitus type II, controlled Fluid retention GERD (gastroesophageal reflux disease) HTN (hypertension) Hyperlipidemia Left knee pain 07/11/2015 Nerve pain PSH: has a past surgical history that includes hysterectomy; cholecystectomy; 54689 - CA ANES NERVE MUSC TENDON FASCIA&BURSA KNEE&/POPLT; appendectomy; 91413 - CA ESOPHAGOGASTRODUODENOSCOPY TRANSORAL DIAGNOSTIC (02/13/2016); 98961 - CA DILATION ESOPH UNGUIDED SOUND/BOUGIE 1/MULT PASS (02/13/2016); esophagogastroduodenoscopy (N/A, 02/13/2016); back surgery; tonsillectomy; and total knee arthroplasty (Left). Family Hx: Unable to obtain due to acute encephalopathy Social History Tobacco Use Smoking status: Former Current packs/day: 1.00 Average packs/day: 1 pack/day for 30.0 years (30.0 ttl pk-yrs) Types: Cigarettes Passive exposure: Never Smokeless tobacco: Never Substance Use Topics Alcohol use: No Alcohol/week: 0.0 standard drinks of alcohol Drug use: No Current Scheduled Medications Current IV Current Facility-Administered Medications: dextrose 50 % in water (D50W) injection 25 mL, 25 mL, Slow IV Push, PRN, Inocencio Roman MD enoxaparin (LOVENOX) injection 40 mg, 40 mg, Subcutaneous, DAILY, Inocencio Roman MD glucagon HCL injection 1 mg, 1 mg, Intramuscular, PRN, Inocencio Roman MD ipratropium-albuteroL (DUONEB) 0.5 mg-3 mg(2.5 mg base)/3 mL nebulizer solution 3 mL, 3 mL, Inhalation, Q4H, Inocencio Roman MD, 3 mL at 06/24/24 1205 [START ON 06/25/2024] methylPREDNISolone sod succ (SOLU-MEDROL (PF)) injection 40 mg, 40 mg, Intravenous, DAILY, Inocencio Roman MD Sliding Scale Insulin - Lispro (HumaLOG), , Subcutaneous, TID MEALS+HS, Ioncencio Roman MD Objective: Vitals: Vitals: 06/24/24 1116 06/24/24 1121 06/24/24 1130 BP: 132/61 Pulse: 98 86 Resp: (!) 33 24 Temp: 36.8 ?C (98.2 ?F) TempSrc: Temporal Artery SpO2: 96% 93% Weight: 75.5 kg (166 lb 6.4 oz) Height: 1.6 m (5' 3") I/O's: No intake or output data in the 24 hours ending 06/24/24 1332 Physical Exam: Constitutional: Drowsy, well-developed, well-nourished, and in no distress. Head: Normocephalic and atraumatic. Eyes: PERRL. Conjunctivae and EOM are normal. Neck: Normal range of motion. Neck supple. No JVD present. Cardiovascular: Normal rate, regular rhythm, normal heart sounds Pulmonary/Chest: Effort normal and coarse breath sounds. No respiratory distress. No wheezes, rales or rhonchi. Abdominal: Soft. Bowel sounds are normal. No TTP, non-distended and no masses. No rebound or guarding. Musculoskeletal: Normal range of motion. No edema or tenderness. Lymphadenopathy: No cervical adenopathy. Neurological: A&O x3. No focal deficits. Skin: Skin is warm and dry. No rash noted. No erythema. No pallor. Labs: BMP:BMP NA (mmol/L) Date Value 06/24/2024 133 (L) 06/06/2024 135 06/05/2024 134 (L) 06/04/2024 133 (L) 06/03/2024 132 (L) K (mmol/L) Date Value 06/24/2024 4.5 06/06/2024 3.8 06/05/2024 4.0 06/04/2024 3.8 06/03/2024 4.3 CALCIUM (mg/dL) Date Value 06/24/2024 8.8 06/06/2024 8.8 06/05/2024 8.9 06/04/2024 8.9 06/03/2024 8.9 CL (mmol/L) Date Value 06/24/2024 95 (L) 06/06/2024 100 06/05/2024 101 06/04/2024 101 06/03/2024 98 BUN (mg/dL) Date Value 06/24/2024 18 06/06/2024 21 06/05/2024 23 06/04/2024 27 (H) 06/03/2024 33 (H) CREATININE (mg/dL) Date Value 06/24/2024 0.46 (L) 06/06/2024 0.58 06/05/2024 0.73 06/04/2024 0.59 06/03/2024 0.69 GLUCOSE (mg/dL) Date Value 06/24/2024 276 (H) 06/06/2024 121 (H) 06/05/2024 92 06/04/2024 55 (L) 06/03/2024 130 (H) CO2 TOTAL (mmol/L) Date Value 06/24/2024 29 06/06/2024 32 (H) 06/05/2024 33 (H) 06/04/2024 31 06/03/2024 32 (H) CBC:CBC WBC (10*3/?L) Date Value 06/24/2024 15.54 (H) RBC (10*6/?L) Date Value 06/24/2024 3.77 (L) PLT (10*3/?L) Date Value 06/24/2024 439 (H) HGB (g/dL) Date Value 06/24/2024 11.5 (L) HCT (%) Date Value 06/24/2024 34.2 (L) BMP:Hepatic Function Panel ALBUMIN (g/dL) Date Value 06/24/2024 3.5 T PROTEIN (g/dL) Date Value 06/24/2024 7.1 TOTAL BILI (mg/dL) Date Value 06/24/2024 1.3 (H) BILI UNCON (mg/dL) Date Value 06/24/2024 0.8 BILI CONJ (mg/dL) Date Value 06/24/2024 0.0 ALT(SGPT) (U/L) Date Value 11/10/2017 19 ALTv (U/L) Date Value 06/24/2024 18 AST(SGOT) (U/L) Date Value 06/24/2024 72 (H) ALK PHOS (U/L) Date Value 06/24/2024 87 Troponin: Recent Labs 05/24/24 1907 TROPNI 0.017 I have reviewed all relevant labs Imaging: XR Chest 1 vw Result Date: 05/31/2024 ORDERING PHYSICIAN: INOCENCIO ROMAN CLINICAL HISTORY: Shortness of breath TECHNIQUE: Frontal view of chest COMPARISON: 05/29/2024 FINDINGS: The cardiac silhouette is mildly enlarged, stable. There is mild worsening of left lower lobe atelectasis versus infiltrate with small left-sided pleural effusion. The right lung is clear. There is no pneumothorax. Osseous structures are normal. There is mild worsening of left lower lobe atelectasis versus infiltrate with small left-sided pleural effusion. The right lung is clear. There is no pneumothorax. RL: 5252 Chest 1 vw Result Date: 05/29/2024 ORDERING PHYSICIAN: INOCENCIO ROMAN CLINICAL HISTORY: Shortness of breath TECHNIQUE: Frontal view of chest COMPARISON: 05/24/2024 moderately enlarged FINDINGS: The cardiac silhouette is mildly enlarged, stable. Mild central vascular congestion is identified, similar compared to prior exam. Mild worsening of left lower lobe patchy atelectasis versus infiltrate. There is no pneumothorax. There are no effusions.. Osseous structures are normal. Mild central vascular congestion is identified, similar compared to prior exam. Mild worsening of left lower lobe patchy atelectasis versus infiltrate. There is no pneumothorax. There are no effusions.. RL: 5252 Assessment and plan: Active Problems: * No active hospital problems. * Acute respiratory failure with hypoxia due to right perihilar bacterial pneumonia and a COPD exacerbation, POA: - Start Duonebs, IV Solumedrol, continuous BiPAP and oxygen therapy. Wean BiPAP and oxygen as tolerated. - Start IV ceftriaxone and PO azithromycin for bacterial pneumonia. - Start IS. Hyponatremia: - Mild. Continue to monitor on diuretics. Hypochloremia: - Mild. Continue to monitor on diuretics. Hypomagnesemia: - Replete and follow-up repeat magnesium levels. HTN: - BP is well controlled off of antihypertensives. - Resume PO Lasix and Aldactone DM II with neuropathy: - Continue SSI and Cymbalta. HLD: - Resume Lipitor and Zetia. CAD s/p PCI: - Continue aspirin, Plavix and Lipitor. Chronic HFpEF, POA: - Euvolemic. - Resume PO Lasix and Aldactone. GERD: - Continue PO Protonix. Obesity: - Continue diet and supportive care. Depression: - Continue Abilify and Cymbalta. Anxiety: - Continue Cymbalta. DVT prophylaxis: Lovenox Advanced Care Planning ( Z71.89 ) Above assessment and plan discussed at length with patient, patient expressed full understanding. Questions and concerns addressed I spent 18 minutes discussing the advance care planning. Advanced Directive Maker: Daughter Level of comfort: N/A Code Status: Full code Former tobacco user (Z71.6) Disposition: SNF Critical care statement: I have spent 38 minutes of my undivided time on this patient regarding the following critical care diagnosis: Acute respiratory failure with hypoxia due to right perihilar bacterial pneumonia and a COPD exacerbation [facility] 2024-05-25 02:23:19 [facility] ADMIT H&P Date of Service: 05/25/2024 CHIEF [...] Location: [facility] Location HYSTERECTOMY CA ANES NERVE MUSC TENDON FASCIA&BURSA KNEE&/POPLT CA DILATION ESOPH UNGUIDED SOUND/BOUGIE 1/MULT PASS 02/13/2016 CA ESOPHAGOGASTRODUODENOSCOPY TRANSORAL DIAGNOSTIC 02/13/2016 TONSILLECTOMY TOTAL KNEE [...] nonspecific, likely representing microvascular ischemic changes The bain-white matter differentiation is preserved. Partial opacification of right frontal and right ethmoidal air cells with complete opacification of right sphenoid sinuses. The mastoid air cells are clear.. The calvarium and central skull base are unremarkable. IMPRESSION No acute intracranial hemorrhage or significant mass effect. Assessment & Plan Avelino Diaz is a 79 year old female [...] Surrogate decision maker: Gosia Hidalgo (child) - [facility] 2024-03-10 09:26:23 A formal shared decision making interaction has occurred with myself (a non interventional physician). The patient is not a candidate for intermediate oral anticoagulation due to significant hx of GIB and falls but is a candidate for short term oral anticoagulation (currently on DAPT) and therefore I agree that this patient is a candidate for Watchman LAAC. The patient's CHADSVASC score is 6 and HASBLED score is >3. Wilver Kirby MD Cardiology Faculty Progress Notes El Kirby, Wilver, MD (STAFF) CARDIOVASCULAR DISEASE Expand All Collapse All CARDIOLOGY CLINIC NOTE Chief Complaint: Follow up of CHF History of Present Illness: Avelino Diaz is a 78 year old female [...] performed Right heart cath using 7 F [place] S[place] catheter and serially measured SAo2 and [...] -recheck lipids next visit Paroxysmal atrial fibrillation ([id number]) w/ hx of fairly recent CVA HASBLED>3 due to GIB and fall risk -Eliquis stopped during recent admission due to GIB; currently on DAPT; no GIB now -Coreg 6.25 mg BID -Watchman SYED as pt and family prefer not to retart eliquis pending procedure given high risk of falls too T [facility] 2023-10-22 01:32:50 [facility] Hospitalist Admission H&P Date of Service: 10/22/2023 CHIEF COMPLAINT: Patient has had altered mentation along with slurred speech. HISTORY OF PRESENT ILLNESS Avelino Diaz is a 78 year old female [...] Location: [facility] OR Location HYSTERECTOMY CA ANES NERVE MUSC TENDON FASCIA&BURSA KNEE&/POPLT CA DILATION ESOPH UNGUIDED SOUND/BOUGIE 1/MULT PASS 02/13/2016 CA ESOPHAGOGASTRODUODENOSCOPY TRANSORAL DIAGNOSTIC 02/13/2016 TONSILLECTOMY TOTAL KNEE [...] change, unknown cause . History obtained from [facility]: Increasing confusion since Thursday. TECHNIQUE: Axial [...] represent sequelae of microvascular ischemic disease. The bain-white matter differentiation is otherwise preserved. There is [...] given high risk of morbidity and mortality. [place] TAPE CUTTER was verified during stay Angel Luis Rangel MD [facility] Procedure Notes Date/Time Note Provider Source 2024-05-30 11:07:11 [facility] ULTRASOUND GUIDED MID-LINE PLACEMENT Procedure performed by: Slade Gill RN on 05/30/24 Patient location: [place] [id number] Education provided to patient, to include pros and cons, risks versus benefits and possible complications associated with MID-LINE insertion. Questions encouraged and answered accordingly. Written Consent obtained from Avelino Diaz. According to [facility] Operating Procedures Policy, a Time Out was performed to include procedure performed, identity of proceduralist, and identity of procedure recipient by two identifiers. Co-signed/witnessed by Kya Darby RN. An ultrasound guided, 4 Fr., 8 cm. MIDLINE was then placed in the left basilic vein, in one attempt(s). Local anesthetic not used. Labs obtained: no Patient tolerated procedure well: yes Complications: no REF#: [id number] Lot #: [id number] Exp: 12/15/25 TIONAL REHAB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 Slade Gill RN [facility] 2024-03-10 09:26:29 Watchman Device Implantation Procedure: Left Atrial Appendage Occlusion via a Watchman device Indication: Paroxysmal Atrial Fibrillation with a [id number] score >3 and intolerant to anticoagulation due to GI Bleeding. Technique: After obtaining informed consent the patient was prepped and draped in the usual sterile fashion. Monitored anesthesia care was initiated under anesthesia team guidance (see [employer] records). A transesophageal echocardiogram was performed. The [...] atrial appendage Note: This was a single emulsification operator procedure. Michael Bethea MD Cardiac Electrophysiology T [facility] Notes Date/Time Note Provider Source 2024-07-04 14:53:03 Problem: Falls, Risk of Goal: Absence of falls 07/04/2024 1452 by Kya Darby RN Outcome: Adequate for discharge 07/04/2024 1053 by Kya Darby RN Outcome: Progressing as expected Problem: Discharge Planning Goal: Adequate for discharge 07/04/2024 1452 by Kya Darby RN Outcome: Adequate for discharge 07/04/2024 1053 by Kya Darby RN Outcome: Progressing as expected Goal: Effective communication 07/04/2024 1452 by Kya Darby RN Outcome: Adequate for discharge 07/04/2024 1053 by Kya Darby RN Outcome: Progressing as expected Problem: Fluid Volume - Imbalanced Goal: Absence of signs and symptoms of imbalanced fluid volume 07/04/2024 1452 by Kya Darby RN Outcome: Adequate for discharge 07/04/2024 1053 by Kya Darby RN Outcome: Progressing as expected Problem: Glucose Control - Initiated in Adult CC Goal: Glucose level within specified parameters 07/04/2024 1452 by Kya Darby RN Outcome: Adequate for discharge 07/04/2024 1053 by Kya Darby RN Outcome: Progressing as expected Problem: Infection, Risk of or Actual Goal: Absence of infection 07/04/2024 1452 by Kya Darby RN Outcome: Adequate for discharge 07/04/2024 1053 by Kya Darby RN Outcome: Progressing as expected Problem: Nutrition Deficit Goal: Adequate nutritional intake 07/04/2024 1452 by Kya Darby RN Outcome: Adequate for discharge 07/04/2024 1053 by Kya Darby RN Outcome: Progressing as expected Problem: Pain Goal: Control of pain at or below patient's documented comfort goal 07/04/2024 1452 by Kya Darby RN Outcome: Adequate for discharge 07/04/2024 1053 by Kya Darby RN Outcome: Progressing as expected Problem: Respiratory Function - Impaired Goal: Able to cough effectively 07/04/2024 1452 by Kya Darby RN Outcome: Adequate for discharge 07/04/2024 1053 by Kya Darby RN Outcome: Not progressing as expected Goal: Adequate oxygenation 07/04/2024 1452 by Kya Darby RN Outcome: Adequate for discharge 07/04/2024 1053 by Kya Darby RN Outcome: Progressing as expected Goal: Adequate work of breathing 07/04/2024 1452 by Kya Darby RN Outcome: Adequate for discharge 07/04/2024 1053 by Kya Darby RN Outcome: Progressing as expected Goal: Patent airway 07/04/2024 1452 by Kya Darby RN Outcome: Adequate for discharge 07/04/2024 1053 by Kya Darby RN Outcome: Progressing as expected Problem: Skin integrity Impaired (Risk or Actual) Goal: Wound healing 07/04/2024 1452 by Kya Darby RN Outcome: Adequate for discharge 07/04/2024 1053 by Kya Darby RN Outcome: Progressing as expected Goal: Prevention of new skin breakdown 07/04/2024 1452 by Kya Darby RN Outcome: Adequate for discharge 07/04/2024 1053 by Kya Darby RN Outcome: Progressing as expected Problem: Tissue Perfusion - Altered, Risk of Goal: Hemodynamically stable 07/04/2024 1452 by Kya Darby RN Outcome: Adequate for discharge 07/04/2024 1053 by Kya Darby RN Outcome: Progressing as expected [facility] 2024-07-04 10:53:55 Problem: Falls, Risk of Goal: Absence of falls Outcome: Progressing as expected Problem: Discharge Planning Goal: Adequate for discharge Outcome: Progressing as expected Goal: Effective communication Outcome: Progressing as expected Problem: Fluid Volume - Imbalanced Goal: Absence of signs and symptoms of imbalanced fluid volume Outcome: Progressing as expected Problem: Glucose Control - Initiated in Adult CC Goal: Glucose level within specified parameters Outcome: Progressing as expected Problem: Infection, Risk of or Actual Goal: Absence of infection Outcome: Progressing as expected Problem: Nutrition Deficit Goal: Adequate nutritional intake Outcome: Progressing as expected Problem: Pain Goal: Control of pain at or below patient's documented comfort goal Outcome: Progressing as expected Problem: Respiratory Function - Impaired Goal: Adequate oxygenation Outcome: Progressing as expected Goal: Adequate work of breathing Outcome: Progressing as expected Goal: Patent airway Outcome: Progressing as expected Problem: Skin integrity Impaired (Risk or Actual) Goal: Wound healing Outcome: Progressing as expected Goal: Prevention of new skin breakdown Outcome: Progressing as expected Problem: Tissue Perfusion - Altered, Risk of Goal: Hemodynamically stable Outcome: Progressing as expected Problem: Respiratory Function - Impaired Goal: Able to cough effectively Outcome: Not progressing as expected [facility] 2024-07-04 05:14:02 Problem: Falls, Risk of Goal: Absence of falls Outcome: Progressing as expected Problem: Discharge Planning Goal: Adequate for discharge Outcome: Progressing as expected Goal: Effective communication Outcome: Progressing as expected Problem: Fluid Volume - Imbalanced Goal: Absence of signs and symptoms of imbalanced fluid volume Outcome: Progressing as expected Problem: Glucose Control - Initiated in Adult CC Goal: Glucose level within specified parameters Outcome: Progressing as expected Problem: Infection, Risk of or Actual Goal: Absence of infection Outcome: Progressing as expected Problem: Nutrition Deficit Goal: Adequate nutritional intake Outcome: Progressing as expected Problem: Pain Goal: Control of pain at or below patient's documented comfort goal Outcome: Progressing as expected Problem: Respiratory Function - Impaired Goal: Able to cough effectively Outcome: Progressing as expected Goal: Adequate oxygenation Outcome: Progressing as expected Goal: Adequate work of breathing Outcome: Progressing as expected Goal: Patent airway Outcome: Progressing as expected Problem: Skin integrity Impaired (Risk or Actual) Goal: Wound healing Outcome: Progressing as expected Goal: Prevention of new skin breakdown Outcome: Progressing as expected Problem: Tissue Perfusion - Altered, Risk of Goal: Hemodynamically stable Outcome: Progressing as expected ON Whyte RN [facility] 2024-07-03 09:51:32 Problem: Falls, Risk of Goal: Absence of falls Outcome: Progressing as expected Problem: Discharge Planning Goal: Adequate for discharge Outcome: Progressing as expected Goal: Effective communication Outcome: Progressing as expected Problem: Fluid Volume - Imbalanced Goal: Absence of signs and symptoms of imbalanced fluid volume Outcome: Progressing as expected Problem: Glucose Control - Initiated in Adult CC Goal: Glucose level within specified parameters Outcome: Progressing as expected Problem: Infection, Risk of or Actual Goal: Absence of infection Outcome: Progressing as expected Problem: Nutrition Deficit Goal: Adequate nutritional intake Outcome: Progressing as expected Problem: Pain Goal: Control of pain at or below patient's documented comfort goal Outcome: Progressing as expected Problem: Respiratory Function - Impaired Goal: Able to cough effectively Outcome: Progressing as expected Goal: Adequate oxygenation Outcome: Progressing as expected Goal: Adequate work of breathing Outcome: Progressing as expected Goal: Patent airway Outcome: Progressing as expected Problem: Skin integrity Impaired (Risk or Actual) Goal: Wound healing Outcome: Progressing as expected Goal: Prevention of new skin breakdown Outcome: Progressing as expected Problem: Tissue Perfusion - Altered, Risk of Goal: Hemodynamically stable Outcome: Progressing as expected ON Heard RN [facility] 2024-07-03 02:17:26 Problem: Falls, Risk of Goal: Absence of falls Outcome: Progressing as expected Problem: Discharge Planning Goal: Adequate for discharge Outcome: Progressing as expected Goal: Effective communication Outcome: Progressing as expected Problem: Fluid Volume - Imbalanced Goal: Absence of signs and symptoms of imbalanced fluid volume Outcome: Progressing as expected Problem: Glucose Control - Initiated in Adult CC Goal: Glucose level within specified parameters Outcome: Progressing as expected Problem: Infection, Risk of or Actual Goal: Absence of infection Outcome: Progressing as expected Problem: Nutrition Deficit Goal: Adequate nutritional intake Outcome: Progressing as expected Problem: Pain Goal: Control of pain at or below patient's documented comfort goal Outcome: Progressing as expected Problem: Respiratory Function - Impaired Goal: Able to cough effectively Outcome: Progressing as expected Goal: Adequate oxygenation Outcome: Progressing as expected Goal: Adequate work of breathing Outcome: Progressing as expected Goal: Patent airway Outcome: Progressing as expected Problem: Skin integrity Impaired (Risk or Actual) Goal: Wound healing Outcome: Progressing as expected Goal: Prevention of new skin breakdown Outcome: Progressing as expected Problem: Tissue Perfusion - Altered, Risk of Goal: Hemodynamically stable Outcome: Progressing as expected [employer]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 Juli Frank RN [facility] 2024-07-02 09:30:24 Problem: Falls, Risk of Goal: Absence of falls Outcome: Progressing as expected Problem: Discharge Planning Goal: Adequate for discharge Outcome: Progressing as expected Goal: Effective communication Outcome: Progressing as expected Problem: Fluid Volume - Imbalanced Goal: Absence of signs and symptoms of imbalanced fluid volume Outcome: Progressing as expected Problem: Glucose Control - Initiated in Adult CC Goal: Glucose level within specified parameters Outcome: Progressing as expected Problem: Infection, Risk of or Actual Goal: Absence of infection Outcome: Progressing as expected Problem: Nutrition Deficit Goal: Adequate nutritional intake Outcome: Progressing as expected Problem: Pain Goal: Control of pain at or below patient's documented comfort goal Outcome: Progressing as expected Problem: Respiratory Function - Impaired Goal: Able to cough effectively Outcome: Progressing as expected Goal: Adequate oxygenation Outcome: Progressing as expected Goal: Adequate work of breathing Outcome: Progressing as expected Goal: Patent airway Outcome: Progressing as expected Problem: Skin integrity Impaired (Risk or Actual) Goal: Wound healing Outcome: Progressing as expected Goal: Prevention of new skin breakdown Outcome: Progressing as expected Problem: Tissue Perfusion - Altered, Risk of Goal: Hemodynamically stable Outcome: Progressing as expected ON Robledo RN [facility] 2024-07-02 00:49:21 Problem: Falls, Risk of Goal: Absence of falls Outcome: Progressing as expected Problem: Discharge Planning Goal: Adequate for discharge Outcome: Progressing as expected Goal: Effective communication Outcome: Progressing as expected Problem: Fluid Volume - Imbalanced Goal: Absence of signs and symptoms of imbalanced fluid volume Outcome: Progressing as expected Problem: Glucose Control - Initiated in Adult CC Goal: Glucose level within specified parameters Outcome: Progressing as expected Problem: Infection, Risk of or Actual Goal: Absence of infection Outcome: Progressing as expected Problem: Nutrition Deficit Goal: Adequate nutritional intake Outcome: Progressing as expected Problem: Pain Goal: Control of pain at or below patient's documented comfort goal Outcome: Progressing as expected Problem: Respiratory Function - Impaired Goal: Able to cough effectively Outcome: Progressing as expected Goal: Adequate oxygenation Outcome: Progressing as expected Goal: Adequate work of breathing Outcome: Progressing as expected Goal: Patent airway Outcome: Progressing as expected Problem: Skin integrity Impaired (Risk or Actual) Goal: Wound healing Outcome: Progressing as expected Goal: Prevention of new skin breakdown Outcome: Progressing as expected Problem: Tissue Perfusion - Altered, Risk of Goal: Hemodynamically stable Outcome: Progressing as expected ON Lawson RN [facility] 2024-07-01 20:03:10 Problem: Falls, Risk of Goal: Absence of falls Outcome: Progressing as expected Problem: Discharge Planning Goal: Adequate for discharge Outcome: Progressing as expected Goal: Effective communication Outcome: Progressing as expected Problem: Fluid Volume - Imbalanced Goal: Absence of signs and symptoms of imbalanced fluid volume Outcome: Progressing as expected Problem: Glucose Control - Initiated in Adult CC Goal: Glucose level within specified parameters Outcome: Progressing as expected Problem: Infection, Risk of or Actual Goal: Absence of infection Outcome: Progressing as expected Problem: Nutrition Deficit Goal: Adequate nutritional intake Outcome: Progressing as expected Problem: Pain Goal: Control of pain at or below patient's documented comfort goal Outcome: Progressing as expected Problem: Respiratory Function - Impaired Goal: Able to cough effectively Outcome: Progressing as expected Goal: Adequate oxygenation Outcome: Not progressing as expected Goal: Adequate work of breathing Outcome: Progressing as expected Goal: Patent airway Outcome: Progressing as expected Problem: Skin integrity Impaired (Risk or Actual) Goal: Wound healing Outcome: Progressing as expected Goal: Prevention of new skin breakdown Outcome: Progressing as expected Problem: Tissue Perfusion - Altered, Risk of Goal: Hemodynamically stable Outcome: Progressing as expected [employer] REHAB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 Anjana Raman RN [facility] 2024-06-30 23:38:15 Problem: Falls, Risk of Goal: Absence of falls Outcome: Progressing as expected Problem: Discharge Planning Goal: Adequate for discharge Outcome: Progressing as expected Goal: Effective communication Outcome: Progressing as expected Problem: Fluid Volume - Imbalanced Goal: Absence of signs and symptoms of imbalanced fluid volume Outcome: Progressing as expected Problem: Glucose Control - Initiated in Adult CC Goal: Glucose level within specified parameters Outcome: Progressing as expected Problem: Infection, Risk of or Actual Goal: Absence of infection Outcome: Progressing as expected Problem: Nutrition Deficit Goal: Adequate nutritional intake Outcome: Progressing as expected Problem: Pain Goal: Control of pain at or below patient's documented comfort goal Outcome: Progressing as expected Problem: Respiratory Function - Impaired Goal: Able to cough effectively Outcome: Progressing as expected Goal: Adequate oxygenation Outcome: Progressing as expected Goal: Adequate work of breathing Outcome: Progressing as expected Goal: Patent airway Outcome: Progressing as expected Problem: Skin integrity Impaired (Risk or Actual) Goal: Wound healing Outcome: Progressing as expected Goal: Prevention of new skin breakdown Outcome: Progressing as expected Problem: Tissue Perfusion - Altered, Risk of Goal: Hemodynamically stable Outcome: Progressing as expected [employer]HAB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 Eric Meza RN [facility] 2024-06-30 15:51:22 Problem: Falls, Risk of Goal: Absence of falls Outcome: Progressing as expected Problem: Discharge Planning Goal: Adequate for discharge Outcome: Progressing as expected Goal: Effective communication Outcome: Progressing as expected Problem: Fluid Volume - Imbalanced Goal: Absence of signs and symptoms of imbalanced fluid volume Outcome: Progressing as expected Problem: Glucose Control - Initiated in Adult CC Goal: Glucose level within specified parameters Outcome: Progressing as expected Problem: Infection, Risk of or Actual Goal: Absence of infection Outcome: Progressing as expected Problem: Nutrition Deficit Goal: Adequate nutritional intake Outcome: Progressing as expected Problem: Pain Goal: Control of pain at or below patient's documented comfort goal Outcome: Progressing as expected Problem: Respiratory Function - Impaired Goal: Able to cough effectively Outcome: Progressing as expected Goal: Adequate oxygenation Outcome: Progressing as expected Goal: Adequate work of breathing Outcome: Progressing as expected Goal: Patent airway Outcome: Progressing as expected Problem: Skin integrity Impaired (Risk or Actual) Goal: Wound healing Outcome: Progressing as expected Goal: Prevention of new skin breakdown Outcome: Progressing as expected Problem: Tissue Perfusion - Altered, Risk of Goal: Hemodynamically stable Outcome: Progressing as expected [employer]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 Dorcas Ramos RN [facility] 2024-06-30 02:52:05 Problem: Falls, Risk of Goal: Absence of falls Outcome: Progressing as expected Problem: Discharge Planning Goal: Adequate for discharge Outcome: Progressing as expected Goal: Effective communication Outcome: Progressing as expected Problem: Fluid Volume - Imbalanced Goal: Absence of signs and symptoms of imbalanced fluid volume Outcome: Progressing as expected Problem: Glucose Control - Initiated in Adult CC Goal: Glucose level within specified parameters Outcome: Progressing as expected Problem: Infection, Risk of or Actual Goal: Absence of infection Outcome: Progressing as expected Problem: Nutrition Deficit Goal: Adequate nutritional intake Outcome: Progressing as expected Problem: Pain Goal: Control of pain at or below patient's documented comfort goal Outcome: Progressing as expected Problem: Respiratory Function - Impaired Goal: Able to cough effectively Outcome: Progressing as expected Goal: Adequate oxygenation Outcome: Progressing as expected Goal: Adequate work of breathing Outcome: Progressing as expected Goal: Patent airway Outcome: Progressing as expected Problem: Skin integrity Impaired (Risk or Actual) Goal: Wound healing Outcome: Progressing as expected Goal: Prevention of new skin breakdown Outcome: Progressing as expected Problem: Tissue Perfusion - Altered, Risk of Goal: Hemodynamically stable Outcome: Progressing as expected ON Vasquez RN [facility] 2024-06-29 08:48:14 Problem: Falls, Risk of Goal: Absence of falls Outcome: Progressing as expected Problem: Discharge Planning Goal: Adequate for discharge Outcome: Progressing as expected Goal: Effective communication Outcome: Progressing as expected Problem: Fluid Volume - Imbalanced Goal: Absence of signs and symptoms of imbalanced fluid volume Outcome: Progressing as expected Problem: Glucose Control - Initiated in Adult CC Goal: Glucose level within specified parameters Outcome: Progressing as expected Problem: Infection, Risk of or Actual Goal: Absence of infection Outcome: Progressing as expected Problem: Nutrition Deficit Goal: Adequate nutritional intake Outcome: Progressing as expected Problem: Pain Goal: Control of pain at or below patient's documented comfort goal Outcome: Progressing as expected Problem: Respiratory Function - Impaired Goal: Able to cough effectively Outcome: Progressing as expected Goal: Adequate oxygenation Outcome: Progressing as expected Goal: Adequate work of breathing Outcome: Progressing as expected Goal: Patent airway Outcome: Progressing as expected Problem: Skin integrity Impaired (Risk or Actual) Goal: Wound healing Outcome: Progressing as expected Goal: Prevention of new skin breakdown Outcome: Progressing as expected Problem: Tissue Perfusion - Altered, Risk of Goal: Hemodynamically stable Outcome: Progressing as expected [facility] 2024-06-28 21:30:04 Problem: Falls, Risk of Goal: Absence of falls Outcome: Progressing as expected Problem: Discharge Planning Goal: Adequate for discharge Outcome: Progressing as expected Goal: Effective communication Outcome: Progressing as expected Problem: Fluid Volume - Imbalanced Goal: Absence of signs and symptoms of imbalanced fluid volume Outcome: Progressing as expected Problem: Glucose Control - Initiated in Adult CC Goal: Glucose level within specified parameters Outcome: Progressing as expected Problem: Infection, Risk of or Actual Goal: Absence of infection Outcome: Progressing as expected Problem: Nutrition Deficit Goal: Adequate nutritional intake Outcome: Progressing as expected Problem: Pain Goal: Control of pain at or below patient's documented comfort goal Outcome: Progressing as expected Problem: Respiratory Function - Impaired Goal: Able to cough effectively Outcome: Progressing as expected Goal: Adequate oxygenation Outcome: Progressing as expected Goal: Adequate work of breathing Outcome: Progressing as expected Goal: Patent airway Outcome: Progressing as expected Problem: Skin integrity Impaired (Risk or Actual) Goal: Wound healing Outcome: Progressing as expected Goal: Prevention of new skin breakdown Outcome: Progressing as expected Problem: Tissue Perfusion - Altered, Risk of Goal: Hemodynamically stable Outcome: Progressing as expected [facility] Roxana Donaldson RN [facility] 2024-06-28 09:10:39 Problem: Falls, Risk of Goal: Absence of falls Outcome: Progressing as expected Problem: Discharge Planning Goal: Adequate for discharge Outcome: Progressing as expected Goal: Effective communication Outcome: Progressing as expected Problem: Fluid Volume - Imbalanced Goal: Absence of signs and symptoms of imbalanced fluid volume Outcome: Progressing as expected Problem: Glucose Control - Initiated in Adult CC Goal: Glucose level within specified parameters Outcome: Progressing as expected Problem: Infection, Risk of or Actual Goal: Absence of infection Outcome: Progressing as expected Problem: Nutrition Deficit Goal: Adequate nutritional intake Outcome: Progressing as expected Problem: Pain Goal: Control of pain at or below patient's documented comfort goal Outcome: Progressing as expected Problem: Respiratory Function - Impaired Goal: Able to cough effectively Outcome: Progressing as expected Goal: Adequate oxygenation Outcome: Progressing as expected Goal: Adequate work of breathing Outcome: Progressing as expected Goal: Patent airway Outcome: Progressing as expected Problem: Skin integrity Impaired (Risk or Actual) Goal: Wound healing Outcome: Progressing as expected Goal: Prevention of new skin breakdown Outcome: Progressing as expected Problem: Tissue Perfusion - Altered, Risk of Goal: Hemodynamically stable Outcome: Progressing as expected [facility] 2024-06-27 23:03:49 Problem: Falls, Risk of Goal: Absence of falls Outcome: Progressing as expected Problem: Discharge Planning Goal: Adequate for discharge Outcome: Progressing as expected Goal: Effective communication Outcome: Progressing as expected Problem: Fluid Volume - Imbalanced Goal: Absence of signs and symptoms of imbalanced fluid volume Outcome: Progressing as expected Problem: Glucose Control - Initiated in Adult CC Goal: Glucose level within specified parameters Outcome: Progressing as expected Problem: Infection, Risk of or Actual Goal: Absence of infection Outcome: Progressing as expected Problem: Nutrition Deficit Goal: Adequate nutritional intake Outcome: Progressing as expected Problem: Pain Goal: Control of pain at or below patient's documented comfort goal Outcome: Progressing as expected Problem: Respiratory Function - Impaired Goal: Able to cough effectively Outcome: Progressing as expected Goal: Adequate oxygenation Outcome: Progressing as expected Goal: Adequate work of breathing Outcome: Progressing as expected Goal: Patent airway Outcome: Progressing as expected Problem: Skin integrity Impaired (Risk or Actual) Goal: Wound healing Outcome: Progressing as expected Goal: Prevention of new skin breakdown Outcome: Progressing as expected Problem: Tissue Perfusion - Altered, Risk of Goal: Hemodynamically stable Outcome: Progressing as expected [facility] 2024-06-27 13:00:02 Problem: Falls, Risk of Goal: Absence of falls Outcome: Progressing as expected Problem: Discharge Planning Goal: Adequate for discharge Outcome: Progressing as expected Goal: Effective communication Outcome: Progressing as expected Problem: Fluid Volume - Imbalanced Goal: Absence of signs and symptoms of imbalanced fluid volume Outcome: Progressing as expected Problem: Glucose Control - Initiated in Adult CC Goal: Glucose level within specified parameters Outcome: Progressing as expected Problem: Infection, Risk of or Actual Goal: Absence of infection Outcome: Progressing as expected Problem: Nutrition Deficit Goal: Adequate nutritional intake Outcome: Progressing as expected Problem: Pain Goal: Control of pain at or below patient's documented comfort goal Outcome: Progressing as expected Problem: Respiratory Function - Impaired Goal: Able to cough effectively Outcome: Progressing as expected Goal: Adequate oxygenation Outcome: Progressing as expected Goal: Adequate work of breathing Outcome: Progressing as expected Goal: Patent airway Outcome: Progressing as expected Problem: Skin integrity Impaired (Risk or Actual) Goal: Wound healing Outcome: Progressing as expected Goal: Prevention of new skin breakdown Outcome: Progressing as expected Problem: Tissue Perfusion - Altered, Risk of Goal: Hemodynamically stable Outcome: Progressing as expected [facility] 2024-06-27 12:38:22 Images from the original note were not included. Pharmacy Recommendations for Patient Admission: Consider the following medication changes to continue patient's home regimen (if clinically appropriate): Add fenofibrate 67 mg PO QAM Add losartan 50 mg PO QAM Add carvedilol 6.25 mg PO BID Adjust duloxetine 30 mg frequency from BID to QD Add gabapentin 800 mg PO BID The [facility] medication list has been updated and reflected in the chart below. Please use the [facility] Med List for ordering home doses during admission. Patient Adherence: Adherent to all medications. Source(s) used in interview: Outpatient Pharmacy and Medical Records Interview limitations: None Medications Added Medications Removed Medications Modified Amoxicillin/Clavulanate 875-125 mg Fenofibrate 67 mg Losartan 50 mg Insulin lispro Ipratropium-albuterol nebulizer solution Guaifenesin 100 mg/5mL Carvedilol 3.125 mg Aripiprazole 2 mg Allergies as of 06/24/2024 (No Known Allergies) Pharmacy Updated [facility] Med List Medication Sig acetaminophen 325 mg tablet Take 2 tablets by mouth every 6 (six) hours as needed for Temp > 38.5 C. amoxicillin-clavulanate 875-125 mg per tablet Take 1 tablet by mouth in the morning and 1 tablet in the evening. For UTI (06/23/2024- 07/03/2024) fenofibrate micronized 67 mg capsule Take 1 capsule by mouth in the morning. insulin glargine,hum.rec.anlog (INSULIN GLARGINE SC) inject 30 Units under the skin in the morning and 30 Units in the evening. losartan 50 mg tablet Take 1 tablet by mouth in the morning. carvediloL 3.125 mg tablet Take 1 tablet by mouth in the morning and 1 tablet in the evening. Take with meals. Do all this for 30 days. (Patient taking differently: Take 2 tablets by mouth in the morning and 2 tablets in the evening. Take with meals.) furosemide 20 mg tablet Take 1 tablet by mouth in the morning for 30 days. guaiFENesin 100 mg/5 mL solution Take 10 mL by mouth every 6 (six) hours as needed for Cough. (Patient taking differently: Take 5 mL by mouth every 6 (six) hours as needed for Cough.) clopidogreL 75 mg tablet Take 1 tablet by mouth in the morning. magnesium oxide 400 mg (241.3 mg magnesium) tablet Take 1 tablet by mouth in the morning and 1 tablet in the evening. aspirin 81 mg chewable tablet Take 1 tablet by mouth in the morning. atorvastatin (LIPITOR) 80 mg tablet Take 1 tablet by mouth at bedtime. ezetimibe 10 mg tablet Take 1 tablet by mouth in the morning. ferrous sulfate 325 mg (65 mg iron) tablet Take 1 tablet by mouth in the morning. spironolactone 25 mg tablet Take 0.5 tablets by mouth in the morning. DULoxetine 30 mg capsule Take 1 capsule by mouth in the morning. pantoprazole 40 mg EC tablet Take 1 tablet by mouth in the morning. ARIPIPRAZOLE 2 mg tablet TAKE 1 TABLET BY MOUTH EVERY DAY (Patient taking differently: Take 1 tablet by mouth at bedtime.) BIOTIN ORAL Take 2,000 mg by mouth daily. GABAPENTIN ORAL Take 800 mg by mouth in the morning and 800 mg in the evening. metFORMIN (GLUCOPHAGE) 1,000 mg tablet Take 1 tablet by mouth in the morning and 1 tablet in the evening. Take with meals. Outpatient Pharmacy Contact Information: [facility]/pharmacy #[id number] - [place], [place] - [id number] [id number] Thank you for the opportunity to participate in the care of this patient. 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 [facility] 2024-06-27 06:38:36 Problem: Falls, Risk of Goal: Absence of falls Outcome: Progressing as expected Problem: Discharge Planning Goal: Adequate for discharge Outcome: Progressing as expected Goal: Effective communication Outcome: Progressing as expected Problem: Fluid Volume - Imbalanced Goal: Absence of signs and symptoms of imbalanced fluid volume Outcome: Progressing as expected Problem: Glucose Control - Initiated in Adult CC Goal: Glucose level within specified parameters Outcome: Progressing as expected Problem: Infection, Risk of or Actual Goal: Absence of infection Outcome: Progressing as expected Problem: Nutrition Deficit Goal: Adequate nutritional intake Outcome: Progressing as expected Problem: Pain Goal: Control of pain at or below patient's documented comfort goal Outcome: Progressing as expected Problem: Respiratory Function - Impaired Goal: Able to cough effectively Outcome: Progressing as expected Goal: Adequate oxygenation Outcome: Progressing as expected Goal: Adequate work of breathing Outcome: Progressing as expected Goal: Patent airway Outcome: Progressing as expected Problem: Skin integrity Impaired (Risk or Actual) Goal: Wound healing Outcome: Progressing as expected Goal: Prevention of new skin breakdown Outcome: Progressing as expected Problem: Tissue Perfusion - Altered, Risk of Goal: Hemodynamically stable Outcome: Progressing as expected ON Hoffman RN [facility] 2024-06-26 11:42:21 Problem: Falls, Risk of Goal: Absence of falls Outcome: Progressing as expected Problem: Discharge Planning Goal: Adequate for discharge Outcome: Progressing as expected Goal: Effective communication Outcome: Progressing as expected Problem: Fluid Volume - Imbalanced Goal: Absence of signs and symptoms of imbalanced fluid volume Outcome: Progressing as expected Problem: Glucose Control - Initiated in Adult CC Goal: Glucose level within specified parameters Outcome: Progressing as expected Problem: Infection, Risk of or Actual Goal: Absence of infection Outcome: Progressing as expected Problem: Nutrition Deficit Goal: Adequate nutritional intake Outcome: Progressing as expected Problem: Pain Goal: Control of pain at or below patient's documented comfort goal Outcome: Progressing as expected Problem: Respiratory Function - Impaired Goal: Able to cough effectively Outcome: Progressing as expected Goal: Adequate oxygenation Outcome: Progressing as expected Goal: Adequate work of breathing Outcome: Progressing as expected Goal: Patent airway Outcome: Progressing as expected Problem: Skin integrity Impaired (Risk or Actual) Goal: Wound healing Outcome: Progressing as expected Goal: Prevention of new skin breakdown Outcome: Progressing as expected Problem: Tissue Perfusion - Altered, Risk of Goal: Hemodynamically stable Outcome: Progressing as expected ON Brandon RN [facility] 2024-06-25 22:03:57 Problem: Falls, Risk of Goal: Absence of falls Outcome: Progressing as expected Problem: Discharge Planning Goal: Adequate for discharge Outcome: Progressing as expected Goal: Effective communication Outcome: Progressing as expected Problem: Fluid Volume - Imbalanced Goal: Absence of signs and symptoms of imbalanced fluid volume Outcome: Progressing as expected Problem: Glucose Control - Initiated in Adult CC Goal: Glucose level within specified parameters Outcome: Progressing as expected Problem: Nutrition Deficit Goal: Adequate nutritional intake Outcome: Progressing as expected Problem: Pain Goal: Control of pain at or below patient's documented comfort goal Outcome: Progressing as expected Problem: Respiratory Function - Impaired Goal: Able to cough effectively Outcome: Progressing as expected Goal: Adequate oxygenation Outcome: Progressing as expected Goal: Adequate work of breathing Outcome: Progressing as expected Goal: Patent airway Outcome: Progressing as expected Problem: Skin integrity Impaired (Risk or Actual) Goal: Wound healing Outcome: Progressing as expected Goal: Prevention of new skin breakdown Outcome: Progressing as expected Problem: Tissue Perfusion - Altered, Risk of Goal: Hemodynamically stable Outcome: Progressing as expected [facility] 2024-06-25 05:02:00 Problem: Falls, Risk of Goal: Absence of falls Outcome: Progressing as expected Problem: Discharge Planning Goal: Adequate for discharge Outcome: Progressing as expected Goal: Effective communication Outcome: Progressing as expected Problem: Fluid Volume - Imbalanced Goal: Absence of signs and symptoms of imbalanced fluid volume Outcome: Progressing as expected Problem: Glucose Control - Initiated in Adult CC Goal: Glucose level within specified parameters Outcome: Progressing as expected Problem: Infection, Risk of or Actual Goal: Absence of infection Outcome: Progressing as expected Problem: Nutrition Deficit Goal: Adequate nutritional intake Outcome: Progressing as expected Problem: Pain Goal: Control of pain at or below patient's documented comfort goal Outcome: Progressing as expected Problem: Respiratory Function - Impaired Goal: Able to cough effectively Outcome: Progressing as expected Goal: Adequate oxygenation Outcome: Progressing as expected Goal: Adequate work of breathing Outcome: Progressing as expected Goal: Patent airway Outcome: Progressing as expected Problem: Skin integrity Impaired (Risk or Actual) Goal: Wound healing Outcome: Progressing as expected Goal: Prevention of new skin breakdown Outcome: Progressing as expected Problem: Tissue Perfusion - Altered, Risk of Goal: Hemodynamically stable Outcome: Progressing as expected [facility] 2024-06-09 10:41:23 TRANSITIONAL CARE MANAGEMENT ASSESSMENT 06/09/2024 Avelino Diaz [id number] Avelino Diaz is a 79 year old /White female was admitted on 05/24/24 to [facility], [facility] ICU. She was discharged on 06/08/24 with discharge disposition of HR- Routine Discharge. Admitting Physician: Florina Chang Discharge Diagnosis: Principal Diagnosis: Altered mental status, unspecified altered mental status type No linked episodes TCM [id number] outreach documentation: Discharge Assessment Chart Assessed: 06/09/24 Chart Reviewed - Post Discharge Call Deferred due to Change in Discharge Status.: Discharged to SNF (SNF: [address] [address] () [phone] (F) [phone]) TCM Outreach Completed: 06/09/24 Future Appointments: Future Appointments Provider Department Dept Phone 09/02/2024 2:30 PM Wilver Baker MD [phone] ON Hansen RN [facility] 2024-06-08 08:42:03 Problem: Pain Goal: Control of pain at or below patient's documented comfort goal Outcome: Progressing as expected Goal: Reduction in pain sensation Outcome: Progressing as expected Problem: Venous Thromboembolism, (actual or risk of) Goal: Absence of venous thromboembolism (Risk) Outcome: Progressing as expected Problem: Falls, Risk of Goal: Absence of falls Outcome: Progressing as expected Problem: Urinary Elimination - Impaired Goal: Return to baseline elimination pattern Outcome: Progressing as expected Problem: Skin integrity Impaired (Risk or Actual) Goal: Wound healing Outcome: Progressing as expected Goal: Prevention of new skin breakdown Outcome: Progressing as expected Problem: Infection Risk Goal: Absence of infection Outcome: Progressing as expected Problem: Respiratory Function - Impaired Goal: Able to cough effectively Outcome: Progressing as expected Goal: Adequate oxygenation Outcome: Progressing as expected Goal: Adequate work of breathing Outcome: Progressing as expected Goal: Patent airway Outcome: Progressing as expected Problem: Discharge Planning Goal: Adequate for discharge Outcome: Progressing as expected ON Durant RN [facility] 2024-06-07 21:55:19 Problem: Pain Goal: Control of pain at or below patient's documented comfort goal Outcome: Progressing as expected Goal: Reduction in pain sensation Outcome: Progressing as expected Problem: Venous Thromboembolism, (actual or risk of) Goal: Absence of venous thromboembolism (Risk) Outcome: Progressing as expected Problem: Falls, Risk of Goal: Absence of falls Outcome: Progressing as expected Problem: Urinary Elimination - Impaired Goal: Return to baseline elimination pattern Outcome: Progressing as expected Problem: Skin integrity Impaired (Risk or Actual) Goal: Wound healing Outcome: Progressing as expected Goal: Prevention of new skin breakdown Outcome: Progressing as expected Problem: Infection Risk Goal: Absence of infection Outcome: Progressing as expected Problem: Respiratory Function - Impaired Goal: Able to cough effectively Outcome: Progressing as expected Goal: Adequate oxygenation Outcome: Progressing as expected Goal: Adequate work of breathing Outcome: Progressing as expected Goal: Patent airway Outcome: Progressing as expected Problem: Discharge Planning Goal: Adequate for discharge Outcome: Progressing as expected [facility] 2024-06-07 09:56:35 Problem: Pain Goal: Control of pain at or below patient's documented comfort goal Outcome: Progressing as expected Goal: Reduction in pain sensation Outcome: Progressing as expected Problem: Venous Thromboembolism, (actual or risk of) Goal: Absence of venous thromboembolism (Risk) Outcome: Progressing as expected Problem: Falls, Risk of Goal: Absence of falls Outcome: Progressing as expected Problem: Urinary Elimination - Impaired Goal: Return to baseline elimination pattern Outcome: Progressing as expected Problem: Skin integrity Impaired (Risk or Actual) Goal: Wound healing Outcome: Progressing as expected Goal: Prevention of new skin breakdown Outcome: Progressing as expected Problem: Infection Risk Goal: Absence of infection Outcome: Progressing as expected Problem: Respiratory Function - Impaired Goal: Able to cough effectively Outcome: Progressing as expected Goal: Adequate oxygenation Outcome: Progressing as expected Goal: Adequate work of breathing Outcome: Progressing as expected Goal: Patent airway Outcome: Progressing as expected Problem: Discharge Planning Goal: Adequate for discharge Outcome: Progressing as expected [facility] 2024-06-06 23:15:59 Problem: Pain Goal: Control of pain at or below patient's documented comfort goal Outcome: Progressing as expected Goal: Reduction in pain sensation Outcome: Progressing as expected Problem: Venous Thromboembolism, (actual or risk of) Goal: Absence of venous thromboembolism (Risk) Outcome: Progressing as expected Problem: Falls, Risk of Goal: Absence of falls Outcome: Progressing as expected Problem: Urinary Elimination - Impaired Goal: Return to baseline elimination pattern Outcome: Progressing as expected Problem: Skin integrity Impaired (Risk or Actual) Goal: Wound healing Outcome: Progressing as expected Goal: Prevention of new skin breakdown Outcome: Progressing as expected Problem: Infection Risk Goal: Absence of infection Outcome: Progressing as expected Problem: Respiratory Function - Impaired Goal: Able to cough effectively Outcome: Progressing as expected Goal: Adequate oxygenation Outcome: Progressing as expected Goal: Adequate work of breathing Outcome: Progressing as expected Goal: Patent airway Outcome: Progressing as expected Problem: Discharge Planning Goal: Adequate for discharge Outcome: Progressing as expected [facility] 2024-06-06 14:31:25 Problem: Pain Goal: Control of pain at or below patient's documented comfort goal Outcome: Progressing as expected Goal: Reduction in pain sensation Outcome: Progressing as expected Problem: Venous Thromboembolism, (actual or risk of) Goal: Absence of venous thromboembolism (Risk) Outcome: Progressing as expected Problem: Falls, Risk of Goal: Absence of falls Outcome: Progressing as expected Problem: Urinary Elimination - Impaired Goal: Return to baseline elimination pattern Outcome: Progressing as expected Problem: Skin integrity Impaired (Risk or Actual) Goal: Wound healing Outcome: Progressing as expected Goal: Prevention of new skin breakdown Outcome: Progressing as expected Problem: Infection Risk Goal: Absence of infection Outcome: Progressing as expected Problem: Respiratory Function - Impaired Goal: Able to cough effectively Outcome: Progressing as expected Goal: Adequate oxygenation Outcome: Progressing as expected Goal: Adequate work of breathing Outcome: Progressing as expected Goal: Patent airway Outcome: Progressing as expected Problem: Discharge Planning Goal: Adequate for discharge Outcome: Progressing as expected ON Robledo RN [facility] 2024-06-06 10:14:48 While in chair after 30 min pt called to get back in bed. Tried to convince pt to stay in the chair for a bit longer, pt stood up on her own and got into the bed. I applied pt bed alarm. ON Chapman [facility] 2024-06-06 04:57:57 Patient Has progressed from O2 at 4 liters/min to 2 liters/min via N/C. Alert and responsive. Had short run wide complex tachycardia lasating approx 6 seconds that self terminated. ON Nugent RN [facility] 2024-06-05 07:10:47 Problem: Pain Goal: Control of pain at or below patient's documented comfort goal Outcome: Not progressing as expected Goal: Reduction in pain sensation Outcome: Not progressing as expected Problem: Venous Thromboembolism, (actual or risk of) Goal: Absence of venous thromboembolism (Risk) Outcome: Not progressing as expected Problem: Falls, Risk of Goal: Absence of falls Outcome: Not progressing as expected Problem: Urinary Elimination - Impaired Goal: Return to baseline elimination pattern Outcome: Not progressing as expected Problem: Skin integrity Impaired (Risk or Actual) Goal: Wound healing Outcome: Not progressing as expected Goal: Prevention of new skin breakdown Outcome: Not progressing as expected Problem: Infection Risk Goal: Absence of infection Outcome: Not progressing as expected Problem: Respiratory Function - Impaired Goal: Able to cough effectively Outcome: Not progressing as expected Goal: Adequate oxygenation Outcome: Not progressing as expected Goal: Adequate work of breathing Outcome: Not progressing as expected Goal: Patent airway Outcome: Not progressing as expected Problem: Discharge Planning Goal: Adequate for discharge Outcome: Not progressing as expected ON Esquivel RN [facility] 2024-06-05 04:07:53 Problem: Pain Goal: Control of pain at or below patient's documented comfort goal Outcome: Progressing as expected Goal: Reduction in pain sensation Outcome: Progressing as expected Problem: Venous Thromboembolism, (actual or risk of) Goal: Absence of venous thromboembolism (Risk) Outcome: Progressing as expected Problem: Falls, Risk of Goal: Absence of falls Outcome: Progressing as expected Problem: Urinary Elimination - Impaired Goal: Return to baseline elimination pattern Outcome: Progressing as expected Problem: Skin integrity Impaired (Risk or Actual) Goal: Wound healing Outcome: Progressing as expected Goal: Prevention of new skin breakdown Outcome: Progressing as expected Problem: Infection Risk Goal: Absence of infection Outcome: Progressing as expected Problem: Respiratory Function - Impaired Goal: Able to cough effectively Outcome: Progressing as expected Goal: Adequate oxygenation Outcome: Progressing as expected Goal: Adequate work of breathing Outcome: Progressing as expected Goal: Patent airway Outcome: Progressing as expected Problem: Discharge Planning Goal: Adequate for discharge Outcome: Progressing as expected 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 Jazmin Whyte RN [facility] 2024-06-04 07:33:32 Problem: Pain Goal: Control of pain at or below patient's documented comfort goal Outcome: Not progressing as expected Goal: Reduction in pain sensation Outcome: Not progressing as expected Problem: Venous Thromboembolism, (actual or risk of) Goal: Absence of venous thromboembolism (Risk) Outcome: Not progressing as expected Problem: Falls, Risk of Goal: Absence of falls Outcome: Not progressing as expected Problem: Urinary Elimination - Impaired Goal: Return to baseline elimination pattern Outcome: Not progressing as expected Problem: Skin integrity Impaired (Risk or Actual) Goal: Wound healing Outcome: Not progressing as expected Goal: Prevention of new skin breakdown Outcome: Not progressing as expected Problem: Infection Risk Goal: Absence of infection Outcome: Not progressing as expected Problem: Respiratory Function - Impaired Goal: Able to cough effectively Outcome: Not progressing as expected Goal: Adequate oxygenation Outcome: Not progressing as expected Goal: Adequate work of breathing Outcome: Not progressing as expected Goal: Patent airway Outcome: Not progressing as expected Problem: Discharge Planning Goal: Adequate for discharge Outcome: Not progressing as expected [facility] 2024-06-04 05:24:56 Problem: Pain Goal: Control of pain at or below patient's documented comfort goal Outcome: Progressing as expected Goal: Reduction in pain sensation Outcome: Progressing as expected Problem: Venous Thromboembolism, (actual or risk of) Goal: Absence of venous thromboembolism (Risk) Outcome: Progressing as expected Problem: Falls, Risk of Goal: Absence of falls Outcome: Progressing as expected Problem: Urinary Elimination - Impaired Goal: Return to baseline elimination pattern Outcome: Progressing as expected Problem: Skin integrity Impaired (Risk or Actual) Goal: Wound healing Outcome: Progressing as expected Goal: Prevention of new skin breakdown Outcome: Progressing as expected Problem: Infection Risk Goal: Absence of infection Outcome: Progressing as expected Problem: Respiratory Function - Impaired Goal: Able to cough effectively Outcome: Progressing as expected Goal: Adequate oxygenation Outcome: Progressing as expected Goal: Adequate work of breathing Outcome: Progressing as expected Goal: Patent airway Outcome: Progressing as expected Problem: Discharge Planning Goal: Adequate for discharge Outcome: Progressing as expected [facility] 2024-06-03 09:05:26 Problem: Pain Goal: Control of pain at or below patient's documented comfort goal Outcome: Progressing as expected Goal: Reduction in pain sensation Outcome: Progressing as expected Problem: Venous Thromboembolism, (actual or risk of) Goal: Absence of venous thromboembolism (Risk) Outcome: Progressing as expected Problem: Falls, Risk of Goal: Absence of falls Outcome: Progressing as expected Problem: Urinary Elimination - Impaired Goal: Return to baseline elimination pattern Outcome: Progressing as expected Problem: Skin integrity Impaired (Risk or Actual) Goal: Wound healing Outcome: Progressing as expected Goal: Prevention of new skin breakdown Outcome: Progressing as expected Problem: Respiratory Function - Impaired Goal: Able to cough effectively Outcome: Progressing as expected Goal: Adequate oxygenation Outcome: Progressing as expected Goal: Adequate work of breathing Outcome: Progressing as expected Goal: Patent airway Outcome: Progressing as expected Problem: Discharge Planning Goal: Adequate for discharge Outcome: Progressing as expected [facility] [place] 2024-06-03 06:27:45 Problem: Pain Goal: Control of pain at or below patient's documented comfort goal Outcome: Progressing as expected Goal: Reduction in pain sensation Outcome: Progressing as expected Problem: Venous Thromboembolism, (actual or risk of) Goal: Absence of venous thromboembolism (Risk) Outcome: Progressing as expected Problem: Falls, Risk of Goal: Absence of falls Outcome: Progressing as expected Problem: Urinary Elimination - Impaired Goal: Return to baseline elimination pattern Outcome: Progressing as expected Problem: Skin integrity Impaired (Risk or Actual) Goal: Wound healing Outcome: Progressing as expected Goal: Prevention of new skin breakdown Outcome: Progressing as expected Problem: Infection Risk Goal: Absence of infection Outcome: Progressing as expected Problem: Respiratory Function - Impaired Goal: Able to cough effectively Outcome: Progressing as expected Goal: Adequate oxygenation Outcome: Progressing as expected Goal: Adequate work of breathing Outcome: Progressing as expected Goal: Patent airway Outcome: Progressing as expected Problem: Discharge Planning Goal: Adequate for discharge Outcome: Progressing as expected ON Vasquez RN [facility] 2024-06-02 09:58:13 Problem: Pain Goal: Control of pain at or below patient's documented comfort goal Outcome: Progressing as expected Goal: Reduction in pain sensation Outcome: Progressing as expected Problem: Venous Thromboembolism, (actual or risk of) Goal: Absence of venous thromboembolism (Risk) Outcome: Progressing as expected Problem: Falls, Risk of Goal: Absence of falls Outcome: Progressing as expected Problem: Urinary Elimination - Impaired Goal: Return to baseline elimination pattern Outcome: Progressing as expected Problem: Skin integrity Impaired (Risk or Actual) Goal: Wound healing Outcome: Progressing as expected Goal: Prevention of new skin breakdown Outcome: Progressing as expected Problem: Infection Risk Goal: Absence of infection Outcome: Progressing as expected Problem: Respiratory Function - Impaired Goal: Able to cough effectively Outcome: Progressing as expected Goal: Adequate oxygenation Outcome: Progressing as expected Goal: Adequate work of breathing Outcome: Progressing as expected Goal: Patent airway Outcome: Progressing as expected Problem: Discharge Planning Goal: Adequate for discharge Outcome: Progressing as expected 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 Renae Heard RN [facility] 2024-06-02 02:06:35 Problem: Pain Goal: Control of pain at or below patient's documented comfort goal Outcome: Progressing as expected Goal: Reduction in pain sensation Outcome: Progressing as expected Problem: Venous Thromboembolism, (actual or risk of) Goal: Absence of venous thromboembolism (Risk) Outcome: Progressing as expected Problem: Falls, Risk of Goal: Absence of falls Outcome: Progressing as expected Problem: Urinary Elimination - Impaired Goal: Return to baseline elimination pattern Outcome: Progressing as expected Problem: Skin integrity Impaired (Risk or Actual) Goal: Wound healing Outcome: Progressing as expected Goal: Prevention of new skin breakdown Outcome: Progressing as expected Problem: Infection Risk Goal: Absence of infection Outcome: Progressing as expected Problem: Respiratory Function - Impaired Goal: Able to cough effectively Outcome: Progressing as expected Goal: Adequate oxygenation Outcome: Progressing as expected Goal: Adequate work of breathing Outcome: Progressing as expected Goal: Patent airway Outcome: Progressing as expected Problem: Discharge Planning Goal: Adequate for discharge Outcome: Progressing as expected [facility] 2024-06-01 09:52:11 Problem: Pain Goal: Control of pain at or below patient's documented comfort goal Outcome: Progressing as expected Goal: Reduction in pain sensation Outcome: Progressing as expected Problem: Venous Thromboembolism, (actual or risk of) Goal: Absence of venous thromboembolism (Risk) Outcome: Progressing as expected Problem: Falls, Risk of Goal: Absence of falls Outcome: Progressing as expected Problem: Urinary Elimination - Impaired Goal: Return to baseline elimination pattern Outcome: Progressing as expected Problem: Skin integrity Impaired (Risk or Actual) Goal: Wound healing Outcome: Progressing as expected Goal: Prevention of new skin breakdown Outcome: Progressing as expected Problem: Infection Risk Goal: Absence of infection Outcome: Progressing as expected Problem: Respiratory Function - Impaired Goal: Able to cough effectively Outcome: Progressing as expected Goal: Adequate oxygenation Outcome: Progressing as expected Goal: Adequate work of breathing Outcome: Progressing as expected Goal: Patent airway Outcome: Progressing as expected Problem: Discharge Planning Goal: Adequate for discharge Outcome: Progressing as expected [facility] 2024-06-01 01:52:52 Problem: Pain Goal: Control of pain at or below patient's documented comfort goal Outcome: Progressing as expected Goal: Reduction in pain sensation Outcome: Progressing as expected Problem: Venous Thromboembolism, (actual or risk of) Goal: Absence of venous thromboembolism (Risk) Outcome: Progressing as expected Problem: Falls, Risk of Goal: Absence of falls Outcome: Progressing as expected Problem: Urinary Elimination - Impaired Goal: Return to baseline elimination pattern Outcome: Progressing as expected Problem: Skin integrity Impaired (Risk or Actual) Goal: Wound healing Outcome: Progressing as expected Goal: Prevention of new skin breakdown Outcome: Progressing as expected Problem: Infection Risk Goal: Absence of infection Outcome: Progressing as expected Problem: Respiratory Function - Impaired Goal: Able to cough effectively Outcome: Progressing as expected Goal: Adequate oxygenation Outcome: Progressing as expected Goal: Adequate work of breathing Outcome: Progressing as expected Goal: Patent airway Outcome: Progressing as expected Problem: Discharge Planning Goal: Adequate for discharge Outcome: Progressing as expected [facility] 2024-05-31 09:16:57 Problem: Pain Goal: Control of pain at or below patient's documented comfort goal Outcome: Progressing as expected Goal: Reduction in pain sensation Outcome: Progressing as expected Problem: Venous Thromboembolism, (actual or risk of) Goal: Absence of venous thromboembolism (Risk) Outcome: Progressing as expected Problem: Falls, Risk of Goal: Absence of falls Outcome: Progressing as expected Problem: Urinary Elimination - Impaired Goal: Return to baseline elimination pattern Outcome: Progressing as expected Problem: Skin integrity Impaired (Risk or Actual) Goal: Wound healing Outcome: Progressing as expected Goal: Prevention of new skin breakdown Outcome: Progressing as expected Problem: Infection Risk Goal: Absence of infection Outcome: Progressing as expected Problem: Respiratory Function - Impaired Goal: Able to cough effectively Outcome: Progressing as expected Goal: Adequate oxygenation Outcome: Progressing as expected Goal: Adequate work of breathing Outcome: Progressing as expected Goal: Patent airway Outcome: Progressing as expected Problem: Discharge Planning Goal: Adequate for discharge Outcome: Progressing as expected [employer]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 [facility] 2024-05-30 20:05:43 Problem: Pain Goal: Control of pain at or below patient's documented comfort goal Outcome: Progressing as expected Goal: Reduction in pain sensation Outcome: Progressing as expected Problem: Venous Thromboembolism, (actual or risk of) Goal: Absence of venous thromboembolism (Risk) Outcome: Progressing as expected Problem: Falls, Risk of Goal: Absence of falls Outcome: Progressing as expected Problem: Urinary Elimination - Impaired Goal: Return to baseline elimination pattern Outcome: Progressing as expected Problem: Skin integrity Impaired (Risk or Actual) Goal: Wound healing Outcome: Progressing as expected Goal: Prevention of new skin breakdown Outcome: Progressing as expected Problem: Infection Risk Goal: Absence of infection Outcome: Progressing as expected Problem: Respiratory Function - Impaired Goal: Able to cough effectively Outcome: Progressing as expected Goal: Adequate oxygenation Outcome: Progressing as expected Goal: Adequate work of breathing Outcome: Progressing as expected Goal: Patent airway Outcome: Progressing as expected Problem: Discharge Planning Goal: Adequate for discharge Outcome: Progressing as expected ON Lawson RN [facility] 2024-05-30 11:23:58 Problem: Pain Goal: Control of pain at or below patient's documented comfort goal Outcome: Progressing as expected Goal: Reduction in pain sensation Outcome: Progressing as expected Problem: Venous Thromboembolism, (actual or risk of) Goal: Absence of venous thromboembolism (Risk) Outcome: Progressing as expected Problem: Falls, Risk of Goal: Absence of falls Outcome: Progressing as expected Problem: Urinary Elimination - Impaired Goal: Return to baseline elimination pattern Outcome: Progressing as expected Problem: Skin integrity Impaired (Risk or Actual) Goal: Wound healing Outcome: Progressing as expected Goal: Prevention of new skin breakdown Outcome: Progressing as expected Problem: Infection Risk Goal: Absence of infection Outcome: Progressing as expected Problem: Respiratory Function - Impaired Goal: Able to cough effectively Outcome: Progressing as expected Goal: Adequate oxygenation Outcome: Progressing as expected Goal: Adequate work of breathing Outcome: Progressing as expected Goal: Patent airway Outcome: Progressing as expected Problem: Discharge Planning Goal: Adequate for discharge Outcome: Progressing as expected ON Darby RN [facility] 2024-05-30 01:43:51 Problem: Pain Goal: Control of pain at or below patient's documented comfort goal Outcome: Progressing as expected Goal: Reduction in pain sensation Outcome: Progressing as expected Problem: Venous Thromboembolism, (actual or risk of) Goal: Absence of venous thromboembolism (Risk) Outcome: Progressing as expected Problem: Falls, Risk of Goal: Absence of falls Outcome: Progressing as expected Problem: Urinary Elimination - Impaired Goal: Return to baseline elimination pattern Outcome: Progressing as expected Problem: Skin integrity Impaired (Risk or Actual) Goal: Wound healing Outcome: Progressing as expected Goal: Prevention of new skin breakdown Outcome: Progressing as expected Problem: Infection Risk Goal: Absence of infection Outcome: Progressing as expected Problem: Respiratory Function - Impaired Goal: Able to cough effectively Outcome: Progressing as expected Goal: Adequate oxygenation Outcome: Progressing as expected Goal: Adequate work of breathing Outcome: Progressing as expected Goal: Patent airway Outcome: Progressing as expected Problem: Discharge Planning Goal: Adequate for discharge Outcome: Progressing as expected ON Arreguin RN [facility] 2024-05-29 07:34:26 Problem: Pain Goal: Control of pain at or below patient's documented comfort goal Outcome: Progressing as expected Goal: Reduction in pain sensation Outcome: Progressing as expected Problem: Venous Thromboembolism, (actual or risk of) Goal: Absence of venous thromboembolism (Risk) Outcome: Progressing as expected Problem: Falls, Risk of Goal: Absence of falls Outcome: Progressing as expected Problem: Urinary Elimination - Impaired Goal: Return to baseline elimination pattern Outcome: Progressing as expected Problem: Skin integrity Impaired (Risk or Actual) Goal: Wound healing Outcome: Progressing as expected Goal: Prevention of new skin breakdown Outcome: Progressing as expected Problem: Infection Risk Goal: Absence of infection Outcome: Progressing as expected Problem: Respiratory Function - Impaired Goal: Able to cough effectively Outcome: Progressing as expected Goal: Adequate oxygenation Outcome: Progressing as expected Goal: Adequate work of breathing Outcome: Progressing as expected Goal: Patent airway Outcome: Progressing as expected Problem: Discharge Planning Goal: Adequate for discharge Outcome: Progressing as expected [facility] 2024-05-29 04:30:13 Problem: Pain Goal: Control of pain at or below patient's documented comfort goal Outcome: Progressing as expected Goal: Reduction in pain sensation Outcome: Progressing as expected Problem: Venous Thromboembolism, (actual or risk of) Goal: Absence of venous thromboembolism (Risk) Outcome: Progressing as expected Problem: Falls, Risk of Goal: Absence of falls Outcome: Progressing as expected Problem: Urinary Elimination - Impaired Goal: Return to baseline elimination pattern Outcome: Progressing as expected Problem: Skin integrity Impaired (Risk or Actual) Goal: Wound healing Outcome: Progressing as expected Goal: Prevention of new skin breakdown Outcome: Progressing as expected Problem: Infection Risk Goal: Absence of infection Outcome: Progressing as expected Problem: Respiratory Function - Impaired Goal: Able to cough effectively Outcome: Progressing as expected Goal: Adequate oxygenation Outcome: Progressing as expected Goal: Adequate work of breathing Outcome: Progressing as expected Goal: Patent airway Outcome: Progressing as expected Problem: Discharge Planning Goal: Adequate for discharge Outcome: Progressing as expected ON Earl RN [facility] 2024-05-28 17:15:27 Problem: Pain Goal: Control of pain at or below patient's documented comfort goal Outcome: Progressing as expected Goal: Reduction in pain sensation Outcome: Progressing as expected Problem: Venous Thromboembolism, (actual or risk of) Goal: Absence of venous thromboembolism (Risk) Outcome: Progressing as expected Problem: Falls, Risk of Goal: Absence of falls Outcome: Progressing as expected Problem: Urinary Elimination - Impaired Goal: Return to baseline elimination pattern Outcome: Progressing as expected Problem: Skin integrity Impaired (Risk or Actual) Goal: Wound healing Outcome: Progressing as expected Goal: Prevention of new skin breakdown Outcome: Progressing as expected Problem: Infection Risk Goal: Absence of infection Outcome: Progressing as expected Problem: Respiratory Function - Impaired Goal: Adequate oxygenation Outcome: Progressing as expected Goal: Adequate work of breathing Outcome: Progressing as expected Goal: Patent airway Outcome: Progressing as expected Problem: Discharge Planning Goal: Adequate for discharge Outcome: Progressing as expected ON Swanson RN [facility] 2024-05-27 22:03:15 Problem: Pain Goal: Control of pain at or below patient's documented comfort goal Outcome: Progressing as expected Goal: Reduction in pain sensation Outcome: Progressing as expected Problem: Venous Thromboembolism, (actual or risk of) Goal: Absence of venous thromboembolism (Risk) Outcome: Progressing as expected Problem: Falls, Risk of Goal: Absence of falls Outcome: Progressing as expected Problem: Urinary Elimination - Impaired Goal: Return to baseline elimination pattern Outcome: Progressing as expected Problem: Skin integrity Impaired (Risk or Actual) Goal: Wound healing Outcome: Progressing as expected Goal: Prevention of new skin breakdown Outcome: Progressing as expected Problem: Infection Risk Goal: Absence of infection Outcome: Progressing as expected Problem: Respiratory Function - Impaired Goal: Able to cough effectively Outcome: Progressing as expected Goal: Adequate oxygenation Outcome: Progressing as expected Goal: Adequate work of breathing Outcome: Progressing as expected Goal: Patent airway Outcome: Progressing as expected Problem: Discharge Planning Goal: Adequate for discharge Outcome: Progressing as expected [facility] 2024-05-27 15:46:29 Problem: Pain Goal: Control of pain at or below patient's documented comfort goal Outcome: Progressing as expected Goal: Reduction in pain sensation Outcome: Progressing as expected Problem: Venous Thromboembolism, (actual or risk of) Goal: Absence of venous thromboembolism (Risk) Outcome: Progressing as expected Problem: Falls, Risk of Goal: Absence of falls Outcome: Progressing as expected Problem: Urinary Elimination - Impaired Goal: Return to baseline elimination pattern Outcome: Progressing as expected Problem: Skin integrity Impaired (Risk or Actual) Goal: Wound healing Outcome: Progressing as expected Goal: Prevention of new skin breakdown Outcome: Progressing as expected Problem: Infection Risk Goal: Absence of infection Outcome: Progressing as expected Problem: Respiratory Function - Impaired Goal: Able to cough effectively Outcome: Progressing as expected Goal: Adequate oxygenation Outcome: Progressing as expected Goal: Adequate work of breathing Outcome: Progressing as expected Goal: Patent airway Outcome: Progressing as expected [facility] 2024-05-26 23:20:24 Problem: Pain Goal: Control of pain at or below patient's documented comfort goal Outcome: Progressing as expected Goal: Reduction in pain sensation Outcome: Progressing as expected Problem: Venous Thromboembolism, (actual or risk of) Goal: Absence of venous thromboembolism (Risk) Outcome: Progressing as expected Problem: Skin integrity Impaired (Risk or Actual) Goal: Prevention of new skin breakdown Outcome: Progressing as expected Problem: Respiratory Function - Impaired Goal: Able to cough effectively Outcome: Progressing as expected Goal: Adequate work of breathing Outcome: Progressing as expected -[facility] Lorene Kent RN [facility] 2024-05-26 13:07:30 Problem: Pain Goal: Control of pain at or below patient's documented comfort goal Outcome: Progressing as expected Goal: Reduction in pain sensation Outcome: Progressing as expected Problem: Venous Thromboembolism, (actual or risk of) Goal: Absence of venous thromboembolism (Risk) Outcome: Progressing as expected Problem: Falls, Risk of Goal: Absence of falls Outcome: Progressing as expected Problem: Urinary Elimination - Impaired Goal: Return to baseline elimination pattern Outcome: Progressing as expected Problem: Skin integrity Impaired (Risk or Actual) Goal: Wound healing Outcome: Progressing as expected Goal: Prevention of new skin breakdown Outcome: Progressing as expected Problem: Infection Risk Goal: Absence of infection Outcome: Progressing as expected Problem: Respiratory Function - Impaired Goal: Able to cough effectively Outcome: Progressing as expected Goal: Adequate oxygenation Outcome: Progressing as expected Goal: Adequate work of breathing Outcome: Progressing as expected Goal: Patent airway Outcome: Progressing as expected [facility] 2024-05-26 12:31:20 Images from the original note were not included. Pharmacy Recommendations for Patient Admission: Consider restarting the following medications (if clinically appropriate) from patient's home regimen: Magnesium oxide 400 mg PO BID Losartan 25 mg PO QAM Ferrous sulfate 325 mg PO QD Furosemide 20 mg PO QD Aripiprazole 1 mg PO BID Gabapentin 800 mg PO BID Modify the following medications based on patient's home regimen (if clinically appropriate): Increase dose to Carvedilol 12.5 mg PO BID Increase dose to Insulin glargine 40 u SQ BID The [facility] medication list has been updated and reflected in the chart below. Please use the [facility] Med List for ordering home doses during admission. Patient Adherence: Adherent to all medications. Source(s) used in interview: Outpatient Pharmacy, Caregiver, Family Member, and Medical Records Interview limitations: None Medications Added Medications Removed Medications Modified None Lomotil 2.0-0.025 ng Ipratropium-albuterol nebulizer Ondansetron 4 mg ODT Tolterodine LA 4 mg Tramadol 50 mg Aripiprazole 2 mg Furosemide 20 mg Insulin glargine Allergies as of 05/24/2024 (No Known Allergies) Pharmacy Updated [facility] Med List Medication Sig Lactobacillus acidophilus (PROBIOTIC ORAL) Take 1 tablet by mouth in the morning. Limosilactobacillus reuteri Lacticaseirbacillys rhamnosus Cranberry Powder clopidogreL 75 mg tablet Take 1 tablet by mouth in the morning. magnesium oxide 400 mg (241.3 mg magnesium) tablet Take 1 tablet by mouth in the morning and 1 tablet in the evening. aspirin 81 mg chewable tablet Take 1 tablet by mouth in the morning. atorvastatin (LIPITOR) 80 mg tablet Take 1 tablet by mouth at bedtime. ezetimibe 10 mg tablet Take 1 tablet by mouth in the morning. losartan 25 mg tablet Take 2 tablets by mouth in the morning. (Patient taking differently: Take 1 tablet by mouth in the morning.) carvediloL 6.25 mg tablet Take 1 tablet by mouth in the morning and 1 tablet in the evening. Take with meals. (Patient taking differently: Take 2 tablets by mouth in the morning and 2 tablets in the evening. Take with meals.) ferrous sulfate 325 mg (65 mg iron) tablet Take 1 tablet by mouth in the morning. furosemide 40 mg tablet Take 1 tablet by mouth in the morning and 1 tablet in the evening. (Patient taking differently: Take 0.5 tablets by mouth in the morning.) insulin glargine 100 unit/mL injection inject 20 Units under the skin every 12 (twelve) hours. (Patient taking differently: inject 40 Units under the skin every 12 (twelve) hours.) spironolactone 25 mg tablet Take 0.5 tablets by mouth in the morning. DULoxetine 30 mg capsule Take 1 capsule by mouth in the morning and 1 capsule in the evening. ARIPIPRAZOLE 2 mg tablet TAKE 1 TABLET BY MOUTH EVERY DAY (Patient taking differently: Take 1 tablet by mouth in the morning and 1 tablet in the evening.) BIOTIN ORAL Take 2,000 mg by mouth daily. GABAPENTIN ORAL Take 800 mg by mouth in the morning and 800 mg in the evening. metFORMIN (GLUCOPHAGE) 1,000 mg tablet Take 1 tablet by mouth in the morning and 1 tablet in the evening. Take with meals. Outpatient Pharmacy Contact Information: [facility]/pharmacy #[id number] - [place], [place] - [address] [phone] [address] Thank you for the opportunity to participate in the care of this patient. Dana Lr RPH 12:26 PM, 05/26/2024 [facility] Department of Pharmacy - [facility] Phone: ADC: [phone] -[facility] Dana Lr [facility] 2024-05-25 23:27:31 Problem: Pain Goal: Control of pain at or below patient's documented comfort goal Outcome: Progressing as expected Goal: Reduction in pain sensation Outcome: Progressing as expected Problem: Venous Thromboembolism, (actual or risk of) Goal: Absence of venous thromboembolism (Risk) Outcome: Progressing as expected Problem: Falls, Risk of Goal: Absence of falls Outcome: Progressing as expected Problem: Urinary Elimination - Impaired Goal: Return to baseline elimination pattern Outcome: Progressing as expected Problem: Skin integrity Impaired (Risk or Actual) Goal: Wound healing Outcome: Progressing as expected Goal: Prevention of new skin breakdown Outcome: Progressing as expected Problem: Infection Risk Goal: Absence of infection Outcome: Progressing as expected Problem: Respiratory Function - Impaired Goal: Able to cough effectively Outcome: Progressing as expected Goal: Adequate oxygenation Outcome: Progressing as expected Goal: Adequate work of breathing Outcome: Progressing as expected Goal: Patent airway Outcome: Progressing as expected ON Oden RN [facility] 2024-05-25 16:24:58 Problem: Pain Goal: Control of pain at or below patient's documented comfort goal Outcome: Progressing as expected Goal: Reduction in pain sensation Outcome: Progressing as expected Problem: Venous Thromboembolism, (actual or risk of) Goal: Absence of venous thromboembolism (Risk) Outcome: Progressing as expected Problem: Falls, Risk of Goal: Absence of falls Outcome: Progressing as expected Problem: Urinary Elimination - Impaired Goal: Return to baseline elimination pattern Outcome: Progressing as expected Problem: Skin integrity Impaired (Risk or Actual) Goal: Wound healing Outcome: Progressing as expected Goal: Prevention of new skin breakdown Outcome: Progressing as expected Problem: Infection Risk Goal: Absence of infection Outcome: Progressing as expected Problem: Respiratory Function - Impaired Goal: Able to cough effectively Outcome: Progressing as expected Goal: Adequate oxygenation Outcome: Progressing as expected Goal: Adequate work of breathing Outcome: Progressing as expected Goal: Patent airway Outcome: Progressing as expected TIONAL REHAB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 Dorcas Ramos RN [facility] 2024-05-25 00:57:43 TO VISIT AND PRAY WITH HER ON Meza RN [facility] 2024-05-24 23:52:21 Nurse Report Report given to WHITNEY Reyes. Chief complaint, assessment findings, infusion verify and orders reviewed. ROSSY TAO RN [facility] 2024-05-24 20:31:21 RN 1 person assisted patient to bedside commode, patient is very weak and O2 saturation dropped to 90% while on 2L NC. Once back in bed, it took about 3-5min for patient to come back up to 94% on 2L NC. Provider notified. [facility] 2024-05-24 18:39:20 Avelino Diaz is a 79 year old female, arrived to ED with daughter with CC of AMS. States patient has not taken meds x4 days, and seems confused. Hx: Stroke, and watchman placed 3 months ago O2 sats 88% on room air, placed on 3L NC O2 saturations improved to 94%. Denies wearing Oxygen at home. ON Tao RN [facility] 2024-05-24 18:33:00 EMERGENCY DEPARTMENT ENCOUNTER [facility] Patient Name: Avelino Diaz Date of : 1945 79 year old Exam Room:[place] [address] Primary Care Physician: Mary Mccoy [facility] Patient Escorted by: Family [5] Mode of Arrival: Personal means [1] EMS Treatment Prior to ED Arrival: SERVICE PLUMBER treatment: None ED Events Date/Time Event User Comments 05/24/241858 Medical Screening Begins JEWEL SEXTON MD -- 05/24/241858 First Provider Evaluation JEWEL SEXTON MD -- Chief Complaint Chief Complaint Patient presents with Altered mental status ED Triage Notes Rossy Tao RN 05/24/2024 18:50 Avelino Diaz is a 79 year old female, arrived to ED with daughter with CC of AMS. States patient has not taken meds x4 days, and seems confused. Hx: Stroke, and watchman placed 3 months ago O2 sats 88% on room air, placed on 3L NC O2 saturations improved to 94%. Denies wearing Oxygen at home. Original note by Rossy Tao RN at 05/24/2024 18:41 HPI History provided by: Patient Altered mental status Presenting symptoms: confusion Severity: Moderate Episode history: Continuous Timing: Constant Chronicity: New Associated symptoms: weakness Associated symptoms: no abdominal pain, no agitation, no fever, no headaches, no light-headedness, no nausea, no palpitations and no vomiting Past Medical History / Immunizations Past Medical History: Diagnosis Date Anxiety Atrial fibrillation Depression Diabetes mellitus type II, controlled Fluid retention GERD (gastroesophageal reflux disease) HTN (hypertension) Hyperlipidemia Left knee pain 07/11/2015 Nerve pain Tetanus received in last 5 years: No Childhood immunizations: Up-to-date Past Surgical History Past Surgical History: Procedure Laterality Date APPENDECTOMY BACK SURGERY CHOLECYSTECTOMY ESOPHAGOGASTRODUODENOSCOPY N/A 02/13/2016 Surgeon: Wendy Mcclellan MD; Location: [facility] OR Location HYSTERECTOMY CA ANES NERVE MUSC TENDON FASCIA&BURSA KNEE&/POPLT CA DILATION ESOPH UNGUIDED SOUND/BOUGIE 1/MULT PASS 02/13/2016 CA ESOPHAGOGASTRODUODENOSCOPY TRANSORAL DIAGNOSTIC 02/13/2016 TONSILLECTOMY TOTAL KNEE ARTHROPLASTY Left Allergies No Known Allergies Social History Tobacco Use Never smoked or used smokeless tobacco. Passive Exposure: Never Alcohol Use No. Drug Use No. Review of Systems Review of Systems Constitutional: Negative. Negative for chills, fatigue, fever and unexpected weight change. HENT: Negative. Eyes: Negative. Negative for discharge and itching. Respiratory: Positive for cough. Negative for chest tightness, shortness of breath and wheezing. Cardiovascular: Negative. Negative for chest pain and palpitations. Gastrointestinal: Negative. Negative for abdominal distention, abdominal pain, nausea and vomiting. Genitourinary: Negative. Negative for dysuria, urgency, frequency and flank pain. Musculoskeletal: Negative. Skin: Negative. Negative for color change, pallor and wound. Neurological: Positive for weakness. Negative for dizziness, syncope, light-headedness and headaches. Psychiatric/Behavioral: Positive for confusion. Negative for agitation and behavioral problems. All other systems reviewed and are negative. Endocrine: Endocrine negative Physical Exam ED Triage Vitals [05/24/24 1841] Weight 83 kg (183 lb) Actual or estimated Estimated by patient/family report Height 1.6 m (5' 3") BP (!) 140/70 Pulse 71 Resp 22 Temp 36.8 ?C (98.3 ?F) Temp source Oral SpO2 (!) 87 % Measured on Room air Physical Exam Vitals reviewed. Constitutional: Appearance: She is well-developed. HENT: Head: Normocephalic and atraumatic. Nose: Nose normal. Eyes: Conjunctiva/sclera: Conjunctivae normal. Neck: Trachea: No tracheal deviation. Cardiovascular: Rate and Rhythm: Normal rate and regular rhythm. Heart sounds: Normal heart sounds. No murmur heard. No friction rub. Pulmonary: Effort: Pulmonary effort is normal. No respiratory distress. Breath sounds: Normal breath sounds. No stridor. No wheezing or rales. Abdominal: General: Bowel sounds are normal. There is no distension. Palpations: Abdomen is soft. Tenderness: There is no abdominal tenderness. There is no guarding or rebound. Musculoskeletal: General: Normal range of motion. Cervical back: Normal range of motion and neck supple. Skin: General: Skin is warm and dry. Neurological: Mental Status: She is alert and oriented to person, place, and time. Cranial Nerves: No cranial nerve deficit. Sensory: No sensory deficit. Psychiatric: Behavior: Behavior normal. Thought Content: Thought content normal. Judgment: Judgment normal. Labs Lab Results CBC WITH DIFF - Abnormal Result Value Ref Range WBC 12.39 (*) 4.30 - 11.10 10*3/?L RBC 4.34 3.93 - 5.25 10*6/?L HGB 13.6 11.6 - 15.0 g/dL HCT 41.8 35.7 - 45.2 % MCV 96.3 (*) 80.6 - 95.5 fL MCH 31.3 25.9 - 32.8 pg MCHC 32.5 31.6 - 35.1 g/dL RDW-SD 48.1 39.0 - 49.9 fL RDW-CV 13.4 12.0 - 15.5 % PLT 288 166 - 358 10*3/?L MPV 9.8 9.5 - 12.9 fL NRBC/100 WBC 0.0 0.0 - 10.0 /100 WBCs NRBC x10 3 <0.01 10*3/?L GRAN MAT (NEUT) % 73.2 % IMM GRAN % 0.30 % LYMPH % 14.0 % MONO % 11.8 % EOS % 0.3 % BASO % 0.4 % GRAN MAT x10 3 (ANC) 9.06 (*) 1.88 - 7.09 10*3/uL IMM GRAN x10 3 0.04 0.00 - 0.06 10*3/uL LYMPH x10 3 1.74 1.32 - 3.29 10*3/uL MONO x10 3 1.46 (*) 0.33 - 0.92 10*3/uL EOS x10 3 0.04 0.03 - 0.39 10*3/uL BASO x10 3 0.05 0.01 - 0.07 10*3/uL COMP. METABOLIC PANEL (41033) - Abnormal NA 140 135 - 145 mmol/L K 3.9 3.5 - 5.0 mmol/L CL 103 98 - 108 mmol/L CO2 TOTAL 28 23 - 31 mmol/L AGAP 9 2 - 16 BUN 22 7 - 23 mg/dL GLUCOSE 221 (*) 70 - 110 mg/dL CREATININE 0.73 0.50 - 1.04 mg/dL TOTAL BILI 1.4 (*) 0.1 - 1.1 mg/dL CALCIUM 9.7 8.6 - 10.6 mg/dL T PROTEIN 7.2 6.3 - 8.2 g/dL ALBUMIN 3.9 3.5 - 5.0 g/dL ALK PHOS 96 34 - 122 U/L ALTv 39 (*) 5 - 35 U/L AST(SGOT) 73 (*) 13 - 40 U/L eGFR 83.8 mL/min/1.73m2 URINALYSIS - Abnormal APPEARANCE Cloudy (*) Clear COLOR Diana (*) Yellow PH 5.0 4.8 - 8.0 SP GRAVITY 1.020 1.003 - 1.030 GLU U QUAL 500 mg/dL (*) Normal BLOOD Negative Negative KETONES Negative Negative PROTEIN 30 mg/dL (*) Negative UROBILIN 4.0 mg/dL (*) Normal BILIRUBIN Negative Negative NITRITE Negative Negative LEUK ZENOBIA 250/uL (*) Negative RBC/HPF 3 0 - 3 HPF WBC/HPF 44 (*) 0 - 5 HPF BACTERIA Many (*) Negative MUCOUS Moderate (*) Negative LPF SQ EPITH 14 HPF HYAL CAST 25 (*) <=2 LPF N-TERMINAL PRO-BNP - Abnormal NT-proBNP 864 <=125 pg/mL TROPONIN I - Normal TROPONIN I 0.017 <=0.034 ng/mL Imaging CT Thorax wo contrast Final Result EXAMINATION: CT THORAX WO CONTRAST ORDERING PHYSICIAN: [...] atherosclerosis. 5. Additional chronic findings as above. End of report. Chest 1 vw Final Result Exam: Chest (1 View), 05/24/2024 7:00 PM. [...] spine. IMPRESSION Impression: No acute intrathoracic disease. RL: [id number] End of report. Head wo contrast Final Result EXAM: CT HEAD WO CONTRAST HISTORY: Mental [...] nonspecific, likely representing microvascular ischemic changes The bain-white matter differentiation is preserved. Partial opacification of right frontal and right ethmoidal air cells with complete opacification of right sphenoid sinuses. The mastoid air cells are clear.. The calvarium and central skull base are unremarkable. IMPRESSION No acute intracranial hemorrhage or significant mass effect. 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 Orders and Treatments Orders Placed This Encounter Procedures XR Chest [address] Head wo contrast CT Thorax wo contrast CBC WITH DIFF COMP. METABOLIC PANEL (15793) URINALYSIS TROPONIN I N-TERMINAL PRO-BNP Influenza A B RSV COVID NAAT Lab Only COVID Interpretation Procalcitonin Sputum Culture Cbc with Diff Basic Metabolic Panel (NA, K, CL, CO2, GLUCOSE, BUN, CREATININE, CA) POCT Glucose (Age >30 Days) Urine Culture POCT GLUCOSE (AUTOMATED) Glycosylated Hemoglobin (A1C) POCT GLUCOSE (AUTOMATED) Consult PS Pastoral Care Consult Adult Physical Therapy O2 Per Protocol High Flow Nasal Cannula - Adult Orders Placed This Encounter Medications cefTRIAXone (ROCEPHIN) 1,000 mg in water for injection, sterile 10 mL IV Push DISCONTD: ipratropium-albuteroL (DUONEB) 0.5 mg-3 mg(2.5 mg base)/3 mL nebulizer solution 3 mL ipratropium-albuteroL (DUONEB) 0.5 mg-3 mg(2.5 mg base)/3 mL nebulizer solution 3 mL ipratropium-albuteroL (DUONEB) 0.5 mg-3 mg(2.5 mg base)/3 mL nebulizer solution 3 mL methylprednisolone sod succ (SOLU-MEDROL) injection 125 mg azithromycin (ZITHROMAX) 500 mg in NaCl 0.9% (NS) 250 mL VIAL-MATE IV piggyback enoxaparin (LOVENOX) injection 40 mg acetaminophen (TYLENOL) tablet 650 mg DISCONTD: traMADoL (ULTRAM) tablet 50 mg nystatin (MYCOSTATIN) cream cefTRIAXone (ROCEPHIN) 1,000 mg in water for injection, sterile 10 mL IV Push ipratropium-albuteroL (DUONEB) 0.5 mg-3 mg(2.5 mg base)/3 mL nebulizer solution 3 mL ipratropium-albuteroL (DUONEB) 0.5 mg-3 mg(2.5 mg base)/3 mL nebulizer solution 3 mL aspirin chewable tablet 81 mg atorvastatin (LIPITOR) tablet 80 mg carvediloL (COREG) tablet 6.25 mg clopidogreL (PLAVIX) 75 mg tablet 75 mg DULoxetine (CYMBALTA) capsule 30 mg ezetimibe (ZETIA) tablet 10 mg pantoprazole (PROTONIX) EC tablet 40 mg spironolactone (ALDACTONE) tablet 12.5 mg traMADoL (ULTRAM) tablet 50 mg azithromycin (ZITHROMAX) 500 mg in NaCl 0.9% (NS) 250 mL VIAL-MATE IV piggyback DISCONTD: methylPREDNISolone sod succ (SOLU-MEDROL (PF)) injection 40 mg codeine-guaifenesin (ROBITUSSIN AC) 10-100 mg/5 mL oral solution 5 mL dextrose 50 % in water (D50W) injection 25 mL glucagon HCL injection 1 mg Sliding Scale Insulin-Regular insulin glargine (LANTUS U-100) injection 10 Units methylPREDNISolone sod succ (SOLU-MEDROL (PF)) injection 40 mg Procedures EKG Time 2110 Rate 67 Normal Sinus Q waves in anterior leads [place] normal Abnormal EKG MDM Patient was evaluated for an emergency medical condition related to Altered mental status Diagnoses considered but not limited to: Pneumonia Bronchitis Metabolic encephalopathy UTI Labs:were ordered, and resulted, any relevant abnormalities were considered. Abnormal Labs Reviewed CBC WITH DIFF - Abnormal; Notable for the following components: Result Value WBC 12.39 (*) MCV 96.3 (*) GRAN MAT x10 3 (ANC) 9.06 (*) MONO x10 3 1.46 (*) All other components within normal limits COMP. METABOLIC PANEL (86634) - Abnormal; Notable for the following components: GLUCOSE 221 (*) TOTAL BILI 1.4 (*) ALTv 39 (*) AST(SGOT) 73 (*) All other components within normal limits URINALYSIS - Abnormal; Notable for the following components: APPEARANCE Cloudy (*) COLOR Diana (*) GLU U QUAL 500 mg/dL (*) PROTEIN 30 mg/dL (*) UROBILIN 4.0 mg/dL (*) LEUK ZENOBIA 250/uL (*) WBC/HPF 44 (*) BACTERIA Many (*) MUCOUS Moderate (*) HYAL CAST 25 (*) All other components within normal limits N-TERMINAL PRO-BNP - Abnormal Narrative: Result Indeterminate-Consider causes of NT-proBNP elevation other than Heart failure such as acute coronary syndrome, pulmonary embolism, pulmonary hypertension, sepsis, stroke, and renal dysfunction. CBC WITH DIFF - Abnormal; Notable for the following components: WBC 15.05 (*) GRAN MAT x10 3 (ANC) 13.50 (*) IMM GRAN x10 3 0.11 (*) LYMPH x10 3 0.94 (*) EOS x10 3 <0.03 (*) BASO STIPPLING Present (*) ROULEAUX Present (*) BANDS MARKED INCREASED (*) DOHLE BODIES Present (*) TOXIC CHANGES Present (*) GIANT PLATELETS Present (*) All other components within normal limits BASIC METABOLIC PANEL (NA, K, CL, CO2, GLUCOSE, BUN, CREATININE, CA) - Abnormal; Notable for the following components: BUN 26 (*) GLUCOSE 160 (*) All other components within normal limits POCT GLUCOSE (AUTOMATED) - Abnormal; Notable for the following components: POCT GLU 191 (*) All other components within normal limits GLYCOSYLATED HEMOGLOBIN (A1C) - Abnormal; Notable for the following components: HGB A1C 9.5 (*) All other components within normal limits Narrative: Reference Ranges Normal: <5.7% Prediabetes: 5.7 - 6.4% Diabetes: > 6.5% POCT GLUCOSE (AUTOMATED) - Abnormal; Notable for the following components: POCT GLU 328 (*) All other components within normal limits Imaging:This is a teaching institution and preliminary studies are read by physicians in training. A final read by a radiologist will be confirmatory of preliminary studies or may include addenda. A reasonable attempt will be made to contact the patient or family to communicate findings if necessary. ED Course as of 05/25/24 1238 e May 24, 20249 Bed requested [DN] ED Course User Index [DN] Jewel Sexton MD Diagnosis/Impression as of 05/25/24 1238 Altered mental status, unspecified altered mental status type Acute cough Hypoxia Bronchitis AdmissionCare Guideline: Pulmonary Disease, Inpatient Based on the indications selected for the patient, the bed status of Inpatient was determined to be MET The following indications were selected as present at the time of evaluation of the patient: - Clinical Indications for Admission to Inpatient Care - Hospital admission is needed for appropriate care of the patient because of 1 or more of the following: - Pulmonary Disease condition, symptom, or finding for which observation care has failed or is not considered appropriate. See General Criteria: Observation Care, General Admission Criteria, or Pediatric General Admission Criteria guideline as appropriate. AdmissionCare documentation entered by: Jewel Sexton [facility], 28th edition, Copyright ? 2023 [facility] All Rights Reserved. [id number]:00 Medical Decision Making Problems Addressed: Acute cough: acute illness or injury Altered mental status, unspecified altered mental status type: acute illness or injury Bronchitis: acute illness or injury Hypoxia: acute illness or injury Amount and/or Complexity of Data Reviewed Labs: ordered. Decision-making details documented in ED Course. Radiology: ordered and independent interpretation performed. Decision-making details documented in ED Course. ECG/medicine tests: ordered and independent interpretation performed. Decision-making details documented in ED Course. Risk Prescription drug management. Decision regarding hospitalization. Pulse Oximetry: is hypoxic. Interpreted. Reassessment:unchanged Communication with contact center consultant: Internal Medicine Limitations to patient care and compliance: none. Plan & Summary: The patient is a 79-year-old female who presents for intermittent confusion and cough. She also has shortness of breath. She is on oxygen at home. Workup today demonstrates that she has bronchitis via CT. No evidence of pneumonia. She was given breathing treatments and started on Rocephin and azithromycin for UTI and bronchitis as well. She was given steroids as well. EKG did not demonstrate any ectopy or ischemia. Troponins negative. She has a white count of 12. Chemistry studies are within acceptable range. The patient required increased supplemental oxygen to maintain her sats. She was admitted to the inpatient medicine service for further management. Avelino Diaz is a 79 year old female presenting for complaint(s) listed within the note. Admitted to . Case discussed and level of care determined with admitting provider. History, physical exam findings, results of visit, diagnosis, medication regimens and plan of future care have been considered. Additional MDM may be found in the ED course. Vital signs were rechecked before final disposition and determined to be expected for patient's clinical condition.. Disposition & Follow Up ED Disposition ED Disposition Admit - Inpatient Condition -- Comment -- Current Discharge Medication List STOP taking these medications magnesium oxide 400 mg (241.3 mg magnesium) tablet Comments: Reason for Stopping: aspirin 81 mg chewable tablet Comments: Reason for Stopping: atorvastatin (LIPITOR) 80 mg tablet Comments: Reason for Stopping: losartan 25 mg tablet Comments: Reason for Stopping: ondansetron 4 mg disintegrating tablet Comments: Reason for Stopping: ferrous sulfate 325 mg (65 mg iron) tablet Comments: Reason for Stopping: furosemide 40 mg tablet Comments: Reason for Stopping: Insulin Detemir (LEVEMIR FLEXPEN) 100 unit/mL (3 mL) injection Comments: Reason for Stopping: diazePAM 5 mg tablet Comments: Reason for Stopping: clonazePAM 1 mg tablet Comments: Reason for Stopping: ipratropium-albuterol 0.5 mg-3 mg(2.5 mg base)/3 mL nebulizer solution Comments: Reason for Stopping: traMADOL (ULTRAM) 50 mg tablet Comments: Reason for Stopping: GABAPENTIN ORAL Comments: Reason for Stopping: metFORMIN (GLUCOPHAGE) 1,000 mg tablet Comments: Reason for Stopping: potassium chloride (K-DUR) 10 mEq CR tablet Comments: Reason for Stopping: tolterodine LA (DETROL LA) 4 mg 24 hr capsule Comments: Reason for Stopping: clopidogreL 75 mg tablet Comments: Reason for Stopping: ezetimibe 10 mg tablet Comments: Reason for Stopping: carvediloL 6.25 mg tablet Comments: Reason for Stopping: insulin glargine 100 unit/mL injection Comments: Reason for Stopping: insulin glargine 100 unit/mL injection Comments: Reason for Stopping: spironolactone 25 mg tablet Comments: Reason for Stopping: DULoxetine 30 mg capsule Comments: Reason for Stopping: pantoprazole 40 mg EC tablet Comments: Reason for Stopping: raloxifene 60 mg tablet Comments: Reason for Stopping: ARIPIPRAZOLE 2 mg tablet Comments: Reason for Stopping: rOPINIRole 0.5 mg tablet Comments: Reason for Stopping: diphenoxylate-atropine (LOMOTIL) 2.5-0.025 mg per tablet Comments: Reason for Stopping: ACCU-CHEK NYA PLUS TEST STRP strip Comments: Reason for Stopping: BIOTIN ORAL Comments: Reason for Stopping: Fentanyl, Bulk, 100 % Powd Comments: Reason for Stopping: Future Appointments In 3 months Wilver Baker MD [facility] Cardiology, [facility], [facility] Fiorella Sexton Jr., MD Clinical Dish Technician [facility] Emergency Department [employer] is used frequently and may produce errors. Promptly contact for obvious discrepancies. Jewel Sexton MD 05/25/24 1240 [facility] 2024-05-24 18:33:00 AdmissionCare Guideline: Pulmonary Disease, Inpatient Based on the indications selected for the patient, the bed status of Inpatient was determined to be MET The following indications were selected as present at the time of evaluation of the patient: - Clinical Indications for Admission to Inpatient Care - Hospital admission is needed for appropriate care of the patient because of 1 or more of the following: - Pulmonary Disease condition, symptom, or finding for which observation care has failed or is not considered appropriate. See General Criteria: Observation Care, General Admission Criteria, or Pediatric General Admission Criteria guideline as appropriate. AdmissionCare documentation entered by: Jewel Sexton [facility], 28th edition, Copyright ? 2023 [facility] All Rights Reserved. [id number]:00 [facility] Surendra Silva [facility]2024-12-16 16:34:13 MAGDIEL 03.04.24 NOV 09.02.24 CAD s/p ostial LAD and LCx PCI 10/31/22 -Stable without chest pain -Continue ASA Plavix and BB -restart lipitor 80 daily and zetia 10 daily -recheck lipids next visit [facility]2024-12-16 11:38:33 Avelino Diaz is a 79 year old female Pt's daughter is calling to get a refill for clopidogreL 75 mg tablet and ezetimibe 10 mg tablet. Pt is completely out. Please advise. [facility]/pharmacy #[id number] - [place], [place] - [address] [place] [address] [address] [id number] 10:06:34 Called pt EC daughter Regina and advised per provider. She requested magnesium prescription be sent to [facility]. She verbalized understanding. (Stable labs aside from low magnesium. Lets start her on magnesium oxide 400 mg twice daily Dilcia Mcdonald PA-C [facility] Cardiology) Alberta Clark [id number] 13:05:14 Instructions given to patient regarding diet, medications, site care, follow-up appointments, activity, and lifting restrictions. No bleeding or hematoma noted. Patient verbalized understanding of instructions. Teach-back method used. Yudi Bradley [id number] 11:38:39 Dilcia Mcdonald PA-C 03/09/2024 8:35 AM CDT Back to Top Stable labs aside from low magnesium. Lets start her on magnesium oxide 400 mg twice daily Dilcia Mcdonald PA-C [facility] Cardiology Cindy Moore [id number] 12:00:00 Images from the original note were not included. Venipuncture collection performed by clean technique on the right anticubitus. Total of 1 attempts were made. Slight pressure and a bandage/dressing were applied to the site(s). The patient experienced no complications. The following specimens were processed according to instructions and sent to [facility] laboratories per lab order on 03/08/2024: LT BLUE 1 SST 1 RED LAV 1 PPT DK GREEN (LiHep) DK GREEN (SodH) BAIN DK BLUE (K2) DK BLUE (S) ACD Blood Culture NIPT/NTD [id number] 09:05:12 Good morning, Mrs. Diaz is scheduled for her Watchman procedure for 03/10/2024. She will be a walk-in this week for her lab work. Please place preop lab orders and "Type and Screen". Thank you! Margaret Margaret [facility] [id number] 00:00:00 Surendra Angel [facility]2024-08-22 00:00:00 Surendra [facility]2024-08-14 17:28:28 Pt discharged with diagnosis of hyperglycemia. Printed and verbal instructions reviewed with and given to patient. Prescriptions given x 0. Pt verbalized understanding of teaching, and recommended follow-up. Denies questions or concerns at this time. Pt escorted to car via wheelchair by ER PCT and RN at discharge. Appears in no apparent distress. Accompanied by daughter. Dara Shelton [place] [id number] 13:38:22 Nurse Report Report given to WHITNEY Diamond. Chief complaint reviewed. Plan of care discussed with both nurses. Nanette Hunt RN Nanette Hunt [place] [id number] 11:45:00 Patient's daughter states: "Her blood sugar reading was 440 last night and 450 today morning after breakfast, we gave her insulin. She also has a sore on her bottom since 1-2 weeks. We noticed a sore on the bottom of her right foot last night. She complains of right leg swelling and painful to touch." Xochilt Willis [place] [id number] 11:44:00 EMERGENCY DEPARTMENT ENCOUNTER [facility] Patient Name: Avelino Diaz Date of : 1945 78 year old Exam Room:TX5/TX5 Primary Care Physician: Mary Mccoy [facility] Patient Escorted by: Family [5] Mode of Arrival: Personal means [1] EMS Treatment Prior to ED Arrival: SERVICE PLUMBER treatment: None ED Events Date/Time Event User Comments 12/30/231227 Medical Screening Begins JEWEL SEXTON MD -- 12/30/231227 First Provider Evaluation JEWEL SEXTON MD -- Chief Complaint Chief Complaint Patient presents with High Blood Sugar Other Sore on her bottom x 1-2 weeks LEG SWELLING right ED Triage Notes Xochilt Willis, RN 12/30/2023 11:59 Patient's daughter states: "Her blood sugar reading was 440 last night and 450 today morning after breakfast, we gave her insulin. She also has a sore on her bottom since 1-2 weeks. We noticed a sore on the bottom of her right foot last night. She complains of right leg swelling and painful to touch." HPI History provided by: Patient Illness Location: Generalized Severity: Moderate Onset quality: Gradual Timing: Constant Chronicity: New Relieved by: Nothing Worsened by: Nothing Associated symptoms: no abdominal pain, no chest pain, no cough, no fatigue, no fever, no headaches, no nausea, no shortness of breath, no vomiting and no wheezing Past Medical History / Immunizations Past Medical History: Diagnosis Date Anxiety Atrial fibrillation Depression Diabetes mellitus type II, controlled Fluid retention GERD (gastroesophageal reflux disease) HTN (hypertension) Hyperlipidemia Left knee pain 07/11/2015 Nerve pain Tetanus received in last 5 years: Unknown Past Surgical History Past Surgical History: Procedure Laterality Date APPENDECTOMY BACK SURGERY CHOLECYSTECTOMY ESOPHAGOGASTRODUODENOSCOPY N/A 02/13/2016 Surgeon: Wendy Mcclellan MD; Location: [facility] OR Location HYSTERECTOMY CA ANES NERVE MUSC TENDON FASCIA&BURSA KNEE&/POPLT CA DILATION ESOPH UNGUIDED SOUND/BOUGIE 1/MULT PASS 02/13/2016 CA ESOPHAGOGASTRODUODENOSCOPY TRANSORAL DIAGNOSTIC 02/13/2016 TONSILLECTOMY TOTAL KNEE ARTHROPLASTY Left Allergies No Known Allergies Social History Tobacco Use Never smoked or used smokeless tobacco. Passive Exposure: Never Alcohol Use No. Drug Use No. Review of Systems Review of Systems Constitutional: Negative. Negative for chills, fatigue, fever and unexpected weight change. HENT: Negative. Eyes: Negative. Negative for discharge and itching. Respiratory: Negative. Negative for cough, chest tightness, shortness of breath and wheezing. Cardiovascular: Negative. Negative for chest pain and palpitations. Gastrointestinal: Negative. Negative for abdominal distention, abdominal pain, nausea and vomiting. Genitourinary: Negative. Negative for dysuria, urgency, frequency and flank pain. Musculoskeletal: Negative. Skin: Negative. Negative for color change, pallor and wound. Neurological: Negative. Negative for dizziness, syncope, light-headedness and headaches. Psychiatric/Behavioral: Negative. Negative for agitation and behavioral problems. All other systems reviewed and are negative. Endocrine: Endocrine negative Physical Exam ED Triage Vitals [12/30/23 1145] Weight 83.9 kg (185 lb) Actual or estimated Estimated by patient/family report Height 1.6 m (5' 3") BP 116/60 Pulse 80 Resp 20 Temp 37.1 ?C (98.8 ?F) Temp source Oral SpO2 91 % Measured on Room air Physical Exam Vitals reviewed. Constitutional: Appearance: She is well-developed. HENT: Head: Normocephalic and atraumatic. Nose: Nose normal. Eyes: Conjunctiva/sclera: Conjunctivae normal. Neck: Trachea: No tracheal deviation. Cardiovascular: Rate and Rhythm: Normal rate and regular rhythm. Heart sounds: Normal heart sounds. No murmur heard. No friction rub. Pulmonary: Effort: Pulmonary effort is normal. No respiratory distress. Breath sounds: Normal breath sounds. No stridor. No wheezing or rales. Abdominal: General: Bowel sounds are normal. There is no distension. Palpations: Abdomen is soft. Tenderness: There is no abdominal tenderness. There is no guarding or rebound. Musculoskeletal: General: Normal range of motion. Cervical back: Normal range of motion and neck supple. Skin: General: Skin is warm and dry. Neurological: Mental Status: She is alert and oriented to person, place, and time. Cranial Nerves: No cranial nerve deficit. Sensory: No sensory deficit. Psychiatric: Behavior: Behavior normal. Thought Content: Thought content normal. Judgment: Judgment normal. Labs Lab Results COMP. METABOLIC PANEL (67961) - Abnormal Result Value Ref Range NA 132 (*) 135 - 145 mmol/L K 4.1 3.5 - 5.0 mmol/L CL 92 (*) 98 - 108 mmol/L CO2 TOTAL 30 23 - 31 mmol/L AGAP 10 2 - 16 BUN 23 7 - 23 mg/dL GLUCOSE 544 (*) 70 - 110 mg/dL CREATININE 0.78 0.50 - 1.04 mg/dL TOTAL BILI 1.2 (*) 0.1 - 1.1 mg/dL CALCIUM 9.3 8.6 - 10.6 mg/dL T PROTEIN 7.5 6.3 - 8.2 g/dL ALBUMIN 4.1 3.5 - 5.0 g/dL ALK PHOS 73 34 - 122 U/L ALTv 17 5 - 35 U/L AST(SGOT) 38 13 - 40 U/L eGFR 77.9 mL/min/1.73m2 AC PANEL 21 + LACTIC ACID - Abnormal PH 7.42 7.32 - 7.42 PCO2 CARROL 43 41 - 51 mmHg PO2 CARROL 33 25 - 40 mmHg HCO3 CARROL 27 24 - 28 mEq/L AC VBE(BEAKER) 2.2 mEq/L THB CARROL 14.9 12.0 - 16.0 g/dL %O2HB CARROL 66.9 (*) 52.0 - 63.0 % %COHB CARROL 0.7 0.0 - 1.5 % %METHB CARROL 0.0 (*) 0.4 - 1.5 % VOL%O2 CARROL 14.0 (*) 6.0 - 12.0 % NA 128 (*) 135 - 145 mmol/L K+ 4.0 3.5 - 5.0 mmol/L AC CA IONZ 4.90 4.50 - 5.30 mg/dL GLUCOSE 541 (*) 70 - 110 mg/dL LACTIC ACID 1.49 0.50 - 2.20 mmol/L URINALYSIS - Abnormal APPEARANCE Clear Clear COLOR Yellow Yellow PH 6.0 4.8 - 8.0 SP GRAVITY 1.016 1.003 - 1.030 GLU U QUAL 500 mg/dL (*) Normal BLOOD Negative Negative KETONES Negative Negative PROTEIN Negative Negative UROBILIN Normal Normal BILIRUBIN Negative Negative NITRITE Negative Negative LEUK ZENOBIA Negative Negative RBC/HPF 1 0 - 3 HPF WBC/HPF 1 0 - 5 HPF BACTERIA Negative Negative SQ EPITH 2 HPF YEAST BUD 1 <=1 HPF POCT GLUCOSE (AUTOMATED) - Abnormal POCT GLU 536 (*) 70 - 110 mg/dL POCT GLUCOSE (AUTOMATED) - Abnormal POCT GLU 387 (*) 70 - 110 mg/dL POCT GLUCOSE (AUTOMATED) - Abnormal POCT GLU 297 (*) 70 - 110 mg/dL POCT GLUCOSE (AUTOMATED) - Abnormal POCT GLU 194 (*) 70 - 110 mg/dL CBC WITH DIFF WBC 7.71 4.30 - 11.10 10*3/?L RBC 4.41 3.93 - 5.25 10*6/?L HGB 13.9 11.6 - 15.0 g/dL HCT 41.7 35.7 - 45.2 % MCV 94.6 80.6 - 95.5 fL MCH 31.5 25.9 - 32.8 pg MCHC 33.3 31.6 - 35.1 g/dL RDW-SD 47.3 39.0 - 49.9 fL RDW-CV 13.5 12.0 - 15.5 % PLT 251 166 - 358 10*3/?L MPV 10.5 9.5 - 12.9 fL NRBC/100 WBC 0.0 0.0 - 10.0 /100 WBCs NRBC x103<0.01 10*3/?L GRAN MAT (NEUT) % 70.6 % IMM GRAN % 0.40 % LYMPH % 20.4 % MONO % 6.5 % EOS % 1.7 % BASO % 0.4 % GRAN MAT x103(ANC) 5.45 1.88 - 7.09 10*3/uL IMM GRAN x1030.03 0.00 - 0.06 10*3/uL LYMPH x1031.57 1.32 - 3.29 10*3/uL MONO x1030.50 0.33 - 0.92 10*3/uL EOS x1030.13 0.03 - 0.39 10*3/uL BASO x1030.03 0.01 - 0.07 10*3/uL Imaging No orders to display Orders and Treatments Orders Placed This Encounter Procedures Critical Care CBC WITH DIFF COMP. METABOLIC PANEL (42821) AC Panel 21 + Lactic Acid URINALYSIS POCT GLUCOSE (AUTOMATED) POCT GLUCOSE (AUTOMATED) POCT GLUCOSE (AUTOMATED) POCT GLUCOSE (AUTOMATED) Orders Placed This Encounter Medications NaCl 0.9% (NS) bolus infusion 1,000 mL insulin regular human (HUMULIN R) injection 6 Units insulin regular human (HUMULIN R) injection 8 Units insulin regular human (HUMULIN R) injection 4 Units Procedures Procedures MDM Patient was evaluated for an emergency medical condition related to High Blood Sugar, Other (Sore on her bottom x 1-2 weeks), and LEG SWELLING (right) Diagnoses considered but not limited to: UTI Hyperglycemia DKA Labs:were ordered, and resulted, any relevant abnormalities were considered. Abnormal Labs Reviewed COMP. METABOLIC PANEL (55070) - Abnormal; Notable for the following components: Result Value NA 132 (*) CL 92 (*) GLUCOSE 544 (*) TOTAL BILI 1.2 (*) All other components within normal limits AC PANEL 21 + LACTIC ACID - Abnormal; Notable for the following components: %O2HB CARROL 66.9 (*) %METHB CARROL 0.0 (*) VOL%O2 CARROL 14.0 (*) NA 128 (*) GLUCOSE 541 (*) All other components within normal limits URINALYSIS - Abnormal; Notable for the following components: GLU U QUAL 500 mg/dL (*) All other components within normal limits POCT GLUCOSE (AUTOMATED) - Abnormal; Notable for the following components: POCT GLU 536 (*) All other components within normal limits POCT GLUCOSE (AUTOMATED) - Abnormal; Notable for the following components: POCT GLU 387 (*) All other components within normal limits POCT GLUCOSE (AUTOMATED) - Abnormal; Notable for the following components: POCT GLU 297 (*) All other components within normal limits POCT GLUCOSE (AUTOMATED) - Abnormal; Notable for the following components: POCT GLU 194 (*) All other components within normal limits Imaging:This is a teaching institution and preliminary studies are read by physicians in training. A final read by a radiologist will be confirmatory of preliminary studies or may include addenda. A reasonable attempt will be made to contact the patient or family to communicate findings if necessary. Diagnosis/Impression as of 12/30/23 1650 Hyperglycemia Medical Decision Making Problems Addressed: Hyperglycemia: acute illness or injury Amount and/or Complexity of Data Reviewed Labs: ordered. Decision-making details documented in ED Course. Risk OTC drugs. Prescription drug management. Pulse Oximetry: is not hypoxic. Interpreted. Reassessment:stable Communication with contact center consultant: None. Limitations to patient care and compliance: none. Plan & Summary: The patient is a 78-year-old female who presents for hyperglycemia. She also mentioned that she has a small abrasion on her buttocks. It does not appear infected. She was instructed to use soap and water and antibiotic ointment. She is hyperglycemic however she is not in DKA. She was given IV fluids and insulin. Her blood sugar is now on 97. Hematological studies and chemistry studies are within acceptable range. The patient does not have a UTI. She was discharged follow-up with the PCP. Of note, she does admit to dietary indiscretion. She was instructed to eat a diabetic diet. She was discharged in stable condition. She will return for any questions or concerns. Avelino Diaz is a 78 year old female presenting for complaint(s) listed within the note. . Patient has been deemed stable for discharge. Follow up with providers listed below for further evaluation and management. Return precautions given if symptoms worsen as documented in the discharge instructions. History, physical exam findings, results of visit, diagnosis, medication regimens and plan of future care have been considered. Additional MDM may be found in the ED course. Vital signs were rechecked before final disposition and determined to be stable. Disposition & Follow Up ED Disposition ED Disposition Disch - Home Condition Stable Comment -- Patient's Medications START taking these medications No medications on file CONTINUE taking these medications which have NOT CHANGED ACCU-CHEK NYA PLUS TEST STRP STRIP ARIPIPRAZOLE 2 MG TABLET TAKE 1 TABLET BY MOUTH EVERY DAY BIOTIN ORAL Take 2,000 mg by mouth daily. CARVEDILOL 6.25 MG TABLET Take 1 tablet by mouth in the morning and 1 tablet in the evening. Take with meals. CLONAZEPAM 1 MG TABLET Take 1 tablet by mouth at bedtime. CLOPIDOGREL 75 MG TABLET Take 1 tablet by mouth in the morning. DIAZEPAM 5 MG TABLET (Schedule IV Drug) TAKE 1 TABLET BY MOUTH EVERY EVENING DIPHENOXYLATE-ATROPINE (LOMOTIL) 2.5-0.025 MG PER TABLET Take 1 tablet by mouth every 6 (six) hours as needed (diarrhea). DULOXETINE 30 MG CAPSULE Take 1 capsule by mouth in the morning and 1 capsule in the evening. EZETIMIBE (ZETIA) 10 MG TABLET Take 1 tablet by mouth in the morning. FENTANYL, BULK, [...] for Wheezing. LOSARTAN 25 MG TABLET Take 2 tablets by mouth in the morning. METFORMIN (GLUCOPHAGE) [...] CHLORIDE (K-DUR) 10 MEQ CR TABLET Take 2 tablets by mouth in the morning. RALOXIFENE 60 MG TABLET 1 tablet ROPINIROLE 0.5 MG TABLET Take 1 tablet by mouth at bedtime. SPIRONOLACTONE 25 MG TABLET Take 0.5 tablets by mouth in the morning. TOLTERODINE LA (DETROL LA) 4 MG 24 HR CAPSULE Take 1 capsule by mouth in the morning. TRAMADOL (ULTRAM) 50 MG TABLET Take 1 tablet by mouth every 4 (four) hours as needed for Pain (scale 4-6). START taking Modified Medications as Prescribed No medications on file STOP taking these medications No medications on file Jewel Sexton Jr., MD Clinical Dish Technician [facility] Emergency Department [employer] is used frequently and may produce errors. Promptly contact for obvious discrepancies. Jewel Sexton MD 12/30/23 165 [facility] - [id number] 11:44:00 Associated Order(s): Critical Care Critical Care Performed by: Jewel Sexton MD Authorized by: Jewel Sexton MD Critical care provider statement: Critical care time (minutes): 45 Critical care time was exclusive of: Separately billable procedures and treating other patients and teaching time Critical care was necessary to treat or prevent imminent or life-threatening deterioration of the following conditions: Metabolic crisis Critical care was time spent personally by me on the following activities: Development of treatment plan with patient or surrogate, evaluation of patient's response to treatment, examination of patient, obtaining history from patient or surrogate, ordering and performing treatments and interventions, ordering and review of laboratory studies, ordering and review of radiographic studies, pulse oximetry, re-evaluation of patient's condition and review of old charts Care discussed with: admitting provider Comments: Due to a high probability of clinically [...] treatment; frequent reassessment; and, discussions with other providers. This critical care time was performed to assess and manage the high probability of imminent, life-threatening deterioration that could result in multi-organ failure. It was exclusive of separately billable procedures and treating other patients. [id number] 00:00:00 [facility]2024-07-25 00:00:00 [facility]2024-07-24 09:44:32 Spoke with daughter Ms Hidalgo and reviewed recommendations as below. Advised will review further for possible refills at 12/10 visit Daughter also asking about the Watchman Procedure, stated has discussed in the past and was to perform after her stents placed. Note has procedure staged 03/23/23 Advised to discuss with he ALUMINUM HYDROXIDE PROCESS OPERATOR at the visit and can advise of plan Samira Pace RNPar[facility] Community General [id number] 09:08:25 She had a UTI on 10/21/23 and not sure if this is recurrent, but please discontinue Farxiga at this time just in case it is causing recurrent UTI. ALUMINUM HYDROXIDE PROCESS OPERATOR-NURSE PRACTITIONER MIDLEVEL PROVIDERParma Community General [id number] 15:17:12 Review of chart has the Farxiga DC 10/21 while admitted and DC summary did not have the med listed. Pt was sent [facility] and daughter not sure if she was getting the med there. Stated her father had to take some home meds for admin but again not sure if the RX was given. Stated the pt as been home approx 1 month and her father stated the med was out. MAGDIEL 03/23/23 FOV 12/10 and HF was not consulted while admitted to [facility]. Please review for refill [facility] [id number] 14:40:03 Patient daughter called to schedule follow up appointment for 12/11/23 to refill Farxiga medications due to patient completley out. Patient MAGDIEL 03/23/2023. Patient daughter wanting to know if we can send a short supply into patient pharmacy. Patient daughter aware needing a referral as well for her office visit. Please advise Dyan CurrieParma Community General [id number] 00:00:00 Surendra Silva [facility]2024-06-11 10:54:08 TRANSITIONAL CARE MANAGEMENT ASSESSMENT 10/27/2023 Avelino Diaz [id number] Avelino Diaz is a 78 year old /White female was admitted on 10/21/23 to [facility], [facility] SURG. She was discharged on 10/26/23 with discharge disposition of HR- Routine Discharge. Admitting Physician: Angel Luis Rangel Discharge Diagnosis: Subacute CVA No linked episodes TCM [id number]-pw-face outreach documentation: Discharge Assessment Chart Assessed: 10/27/23 Chart Reviewed - Post Discharge Call Deferred due to Change in Discharge Status.: Discharged to Inpatient Rehab ([facility]) TCM Outreach Completed: 10/27/23 Future Appointments: Arlene Hoffman RNPar[facility] Community General [id number] 14:47:32 [facility] ETA and call back number provided, Le denies further questions at this time. Osiris Hernandez RNPar[facility] Community General [id number] 14:26:34 Problem: Skin integrity Impaired (Risk or Actual) Goal: Prevention of new skin breakdown Outcome: Adequate for discharge Problem: Venous Thromboembolism, (actual or risk of) Goal: Absence of venous thromboembolism (Risk) Outcome: Adequate for discharge Problem: Discharge Planning Goal: Able to perform ADL Outcome: Adequate for discharge Goal: Knowledge of medication management Outcome: Adequate for discharge Goal: Knowledge of need for follow-up care Outcome: Adequate for discharge Goal: Knowledge of personal stroke risk factors Outcome: Adequate for discharge Goal: Knowledge of stroke warning signs Outcome: Adequate for discharge Goal: Facility placement (SNF, LTAC, LTC) appropriate for patient's abilities. Outcome: Adequate for discharge Problem: Aspiration, Risk of Goal: Absence of aspiration Outcome: Adequate for discharge Problem: Cognitive-Perceptual Pattern - Impaired Goal: Able to achieve maximum level of cognitive ability Outcome: Adequate for discharge Problem: Pain Goal: Control of pain at or below patient's documented comfort goal Outcome: Adequate for discharge Goal: Reduction in pain sensation Outcome: Adequate for discharge Problem: Urinary Elimination - Impaired Goal: Absence of urinary incontinence Outcome: Adequate for discharge Goal: Decrease in number of episodes of urinary incontinence Outcome: Adequate for discharge Problem: Verbal Communication - Impaired Goal: Effective communication Outcome: Adequate for discharge [facility] [id number] 00:15:39 Problem: Skin integrity Impaired (Risk or Actual) Goal: Prevention of new skin breakdown Outcome: Progressing as expected Problem: Venous Thromboembolism, (actual or risk of) Goal: Absence of venous thromboembolism (Risk) Outcome: Progressing as expected Problem: Discharge Planning Goal: Able to perform ADL Outcome: Progressing as expected Goal: Knowledge of medication management Outcome: Progressing as expected Goal: Knowledge of need for follow-up care Outcome: Progressing as expected Goal: Knowledge of personal stroke risk factors Outcome: Progressing as expected Goal: Knowledge of stroke warning signs Outcome: Progressing as expected Goal: Facility placement (SNF, LTAC, LTC) appropriate for patient's abilities. Outcome: Progressing as expected Problem: Aspiration, Risk of Goal: Absence of aspiration Outcome: Progressing as expected Problem: Cognitive-Perceptual Pattern - Impaired Goal: Able to achieve maximum level of cognitive ability Outcome: Progressing as expected Problem: Pain Goal: Control of pain at or below patient's documented comfort goal Outcome: Progressing as expected Goal: Reduction in pain sensation Outcome: Progressing as expected Problem: Urinary Elimination - Impaired Goal: Absence of urinary incontinence Outcome: Progressing as expected Goal: Decrease in number of episodes of urinary incontinence Outcome: Progressing as expected Problem: Verbal Communication - Impaired Goal: Effective communication Outcome: Progressing as expected Juany Mauricio [id number] 12:50:33 Problem: Skin integrity Impaired (Risk or Actual) Goal: Prevention of new skin breakdown Outcome: Progressing as expected Problem: Venous Thromboembolism, (actual or risk of) Goal: Absence of venous thromboembolism (Risk) Outcome: Progressing as expected Problem: Discharge Planning Goal: Able to perform ADL Outcome: Progressing as expected Goal: Knowledge of medication management Outcome: Progressing as expected Goal: Knowledge of need for follow-up care Outcome: Progressing as expected Goal: Knowledge of personal stroke risk factors Outcome: Progressing as expected Goal: Knowledge of stroke warning signs Outcome: Progressing as expected Goal: Facility placement (SNF, LTAC, LTC) appropriate for patient's abilities. Outcome: Progressing as expected Problem: Aspiration, Risk of Goal: Absence of aspiration Outcome: Progressing as expected Problem: Cognitive-Perceptual Pattern - Impaired Goal: Able to achieve maximum level of cognitive ability Outcome: Progressing as expected Problem: Pain Goal: Control of pain at or below patient's documented comfort goal Outcome: Progressing as expected Goal: Reduction in pain sensation Outcome: Progressing as expected Problem: Urinary Elimination - Impaired Goal: Absence of urinary incontinence Outcome: Progressing as expected Goal: Decrease in number of episodes of urinary incontinence Outcome: Progressing as expected Problem: Verbal Communication - Impaired Goal: Effective communication Outcome: Progressing as expected Myrna Whelan [id number] 21:51:53 Problem: Skin integrity Impaired (Risk or Actual) Goal: Prevention of new skin breakdown Outcome: Progressing as expected Problem: Venous Thromboembolism, (actual or risk of) Goal: Absence of venous thromboembolism (Risk) Outcome: Progressing as expected Problem: Discharge Planning Goal: Able to perform ADL Outcome: Progressing as expected Goal: Knowledge of medication management Outcome: Progressing as expected Goal: Knowledge of need for follow-up care Outcome: Progressing as expected Goal: Knowledge of personal stroke risk factors Outcome: Progressing as expected Goal: Knowledge of stroke warning signs Outcome: Progressing as expected Goal: Facility placement (SNF, LTAC, LTC) appropriate for patient's abilities. Outcome: Progressing as expected Problem: Aspiration, Risk of Goal: Absence of aspiration Outcome: Progressing as expected Problem: Cognitive-Perceptual Pattern - Impaired Goal: Able to achieve maximum level of cognitive ability Outcome: Progressing as expected Problem: Pain Goal: Control of pain at or below patient's documented comfort goal Outcome: Progressing as expected Goal: Reduction in pain sensation Outcome: Progressing as expected Problem: Urinary Elimination - Impaired Goal: Absence of urinary incontinence Outcome: Progressing as expected Goal: Decrease in number of episodes of urinary incontinence Outcome: Progressing as expected Problem: Verbal Communication - Impaired Goal: Effective communication Outcome: Progressing as expected [facility] [id number] 12:33:35 Problem: Skin integrity Impaired (Risk or Actual) Goal: Prevention of new skin breakdown Outcome: Progressing as expected Problem: Venous Thromboembolism, (actual or risk of) Goal: Absence of venous thromboembolism (Risk) Outcome: Progressing as expected Problem: Discharge Planning Goal: Able to perform ADL Outcome: Progressing as expected Goal: Knowledge of medication management Outcome: Progressing as expected Goal: Knowledge of need for follow-up care Outcome: Progressing as expected Goal: Knowledge of personal stroke risk factors Outcome: Progressing as expected Goal: Knowledge of stroke warning signs Outcome: Progressing as expected Goal: Facility placement (SNF, LTAC, LTC) appropriate for patient's abilities. Outcome: Progressing as expected Problem: Aspiration, Risk of Goal: Absence of aspiration Outcome: Progressing as expected Problem: Cognitive-Perceptual Pattern - Impaired Goal: Able to achieve maximum level of cognitive ability Outcome: Progressing as expected Problem: Pain Goal: Control of pain at or below patient's documented comfort goal Outcome: Progressing as expected Goal: Reduction in pain sensation Outcome: Progressing as expected Problem: Urinary Elimination - Impaired Goal: Absence of urinary incontinence Outcome: Progressing as expected Goal: Decrease in number of episodes of urinary incontinence Outcome: Progressing as expected Problem: Verbal Communication - Impaired Goal: Effective communication Outcome: Progressing as expected [facility]2024-06-08 00:26:45 Problem: Skin integrity Impaired (Risk or Actual) Goal: Prevention of new skin breakdown Outcome: Progressing as expected Problem: Venous Thromboembolism, (actual or risk of) Goal: Absence of venous thromboembolism (Risk) Outcome: Progressing as expected Problem: Discharge Planning Goal: Able to perform ADL Outcome: Progressing as expected Goal: Knowledge of medication management Outcome: Progressing as expected Goal: Knowledge of need for follow-up care Outcome: Progressing as expected Goal: Knowledge of personal stroke risk factors Outcome: Progressing as expected Goal: Knowledge of stroke warning signs Outcome: Progressing as expected Goal: Facility placement (SNF, LTAC, LTC) appropriate for patient's abilities. Outcome: Progressing as expected Problem: Aspiration, Risk of Goal: Absence of aspiration Outcome: Progressing as expected Problem: Cognitive-Perceptual Pattern - Impaired Goal: Able to achieve maximum level of cognitive ability Outcome: Progressing as expected Problem: Pain Goal: Control of pain at or below patient's documented comfort goal Outcome: Progressing as expected Goal: Reduction in pain sensation Outcome: Progressing as expected Problem: Urinary Elimination - Impaired Goal: Absence of urinary incontinence Outcome: Progressing as expected Goal: Decrease in number of episodes of urinary incontinence Outcome: Progressing as expected Problem: Verbal Communication - Impaired Goal: Effective communication Outcome: Progressing as expected [facility]2024-06-07 12:17:04 Problem: Skin integrity Impaired (Risk or Actual) Goal: Prevention of new skin breakdown Outcome: Progressing as expected Problem: Venous Thromboembolism, (actual or risk of) Goal: Absence of venous thromboembolism (Risk) Outcome: Progressing as expected Problem: Discharge Planning Goal: Able to perform ADL Outcome: Progressing as expected Goal: Knowledge of medication management Outcome: Progressing as expected Goal: Knowledge of need for follow-up care Outcome: Progressing as expected Goal: Knowledge of personal stroke risk factors Outcome: Progressing as expected Goal: Knowledge of stroke warning signs Outcome: Progressing as expected Goal: Facility placement (SNF, LTAC, LTC) appropriate for patient's abilities. Outcome: Progressing as expected Problem: Aspiration, Risk of Goal: Absence of aspiration Outcome: Progressing as expected Problem: Cognitive-Perceptual Pattern - Impaired Goal: Able to achieve maximum level of cognitive ability Outcome: Progressing as expected Problem: Pain Goal: Control of pain at or below patient's documented comfort goal Outcome: Progressing as expected Goal: Reduction in pain sensation Outcome: Progressing as expected Problem: Urinary Elimination - Impaired Goal: Absence of urinary incontinence Outcome: Progressing as expected Goal: Decrease in number of episodes of urinary incontinence Outcome: Progressing as expected Problem: Verbal Communication - Impaired Goal: Effective communication Outcome: Progressing as expected [facility] - [id number] 23:17:05 Problem: Skin integrity Impaired (Risk or Actual) Goal: Prevention of new skin breakdown Outcome: Progressing as expected Problem: Venous Thromboembolism, (actual or risk of) Goal: Absence of venous thromboembolism (Risk) Outcome: Progressing as expected Problem: Discharge Planning Goal: Able to perform ADL Outcome: Progressing as expected Goal: Knowledge of medication management Outcome: Progressing as expected Goal: Knowledge of need for follow-up care Outcome: Progressing as expected Goal: Knowledge of personal stroke risk factors Outcome: Progressing as expected Goal: Knowledge of stroke warning signs Outcome: Progressing as expected Goal: Facility placement (SNF, LTAC, LTC) appropriate for patient's abilities. Outcome: Progressing as expected Problem: Aspiration, Risk of Goal: Absence of aspiration Outcome: Progressing as expected Problem: Cognitive-Perceptual Pattern - Impaired Goal: Able to achieve maximum level of cognitive ability Outcome: Progressing as expected Problem: Pain Goal: Control of pain at or below patient's documented comfort goal Outcome: Progressing as expected Goal: Reduction in pain sensation Outcome: Progressing as expected Problem: Urinary Elimination - Impaired Goal: Absence of urinary incontinence Outcome: Progressing as expected Goal: Decrease in number of episodes of urinary incontinence Outcome: Progressing as expected Problem: Verbal Communication - Impaired Goal: Effective communication Outcome: Progressing as expected Wilfredo Reyna RNPar[facility] HospitalMyqiwp2025-11-75 15:37:03 Progressing as expected Lucretia Marte RNPar[facility] [id number] 04:47:01 Problem: Skin integrity Impaired (Risk or Actual) Goal: Prevention of new skin breakdown Outcome: Progressing as expected Problem: Venous Thromboembolism, (actual or risk of) Goal: Absence of venous thromboembolism (Risk) Outcome: Progressing as expected Problem: Discharge Planning Goal: Able to perform ADL Outcome: Progressing as expected Goal: Knowledge of medication management Outcome: Progressing as expected Goal: Knowledge of need for follow-up care Outcome: Progressing as expected Goal: Knowledge of personal stroke risk factors Outcome: Progressing as expected Goal: Knowledge of stroke warning signs Outcome: Progressing as expected Goal: Facility placement (SNF, LTAC, LTC) appropriate for patient's abilities. Outcome: Progressing as expected Problem: Aspiration, Risk of Goal: Absence of aspiration Outcome: Progressing as expected Problem: Cognitive-Perceptual Pattern - Impaired Goal: Able to achieve maximum level of cognitive ability Outcome: Progressing as expected Problem: Pain Goal: Control of pain at or below patient's documented comfort goal Outcome: Progressing as expected Goal: Reduction in pain sensation Outcome: Progressing as expected Problem: Urinary Elimination - Impaired Goal: Absence of urinary incontinence Outcome: Progressing as expected Goal: Decrease in number of episodes of urinary incontinence Outcome: Progressing as expected Problem: Verbal Communication - Impaired Goal: Effective communication Outcome: Progressing as expected [id number] Patient admitted to [facility] for diagnosis of AMS. Patient agrees to admission, discussed plan of care with patient and family. Patient is awake, alert, oriented, resp reg unlabored, color appropriate for race, PIV intact No adverse reaction to medications administered while in ED Belongings with patient to unit Report to WHITNEY Fields Ramya Bustos [id number] 01:04:06 Handoff report given to WHITNEY Pagan Juanita Perez [id number] 21:55:35 Pt brought in by daughter reporting that since Thursday pt has been having increasing confusion. She says that she realized pt has recently been c/o pain with urination so she believes that the confusion may relate to that. Denies fever or other symptoms. 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 female with AMS since Thursday. Daughter reports h/o Dementia and prior UTI's causing same mental confusional state. Denies fever/chills. No head injury, no headache. Past Medical History/Immunizations: Past Medical History: Diagnosis Date Anxiety Atrial fibrillation Depression Diabetes mellitus type II, controlled Fluid retention GERD (gastroesophageal reflux disease) HTN (hypertension) Hyperlipidemia Left knee pain 07/11/2015 Nerve pain Tetanus received in last 5 years: Unknown Allergies: No Known Allergies Past Social History: Tobacco Use Never smoked or used smokeless tobacco. Passive Exposure: Never Alcohol Use No. Drug Use No. Past Surgical History: Past Surgical History: Procedure Laterality Date APPENDECTOMY BACK SURGERY CHOLECYSTECTOMY ESOPHAGOGASTRODUODENOSCOPY N/A 02/13/2016 Surgeon: Wendy Mcclellan MD; Location: [facility] OR Location HYSTERECTOMY CA ANES NERVE MUSC TENDON FASCIA&BURSA KNEE&/POPLT CA DILATION ESOPH UNGUIDED SOUND/BOUGIE 1/MULT PASS 02/13/2016 CA ESOPHAGOGASTRODUODENOSCOPY TRANSORAL DIAGNOSTIC 02/13/2016 TONSILLECTOMY TOTAL KNEE ARTHROPLASTY Left Review of Systems: Review of Systems Constitutional: Positive for fatigue. Negative for chills and fever. HENT: Negative. Negative for congestion, postnasal drip and rhinorrhea. Eyes: Negative. Respiratory: Negative. Breasts: Negative. Cardiovascular: Negative. Gastrointestinal: Negative. Genitourinary: Negative. Musculoskeletal: Negative. Skin: Negative. Neurological: Negative. Psychiatric/Behavioral: Positive for confusion. Endocrine: Endocrine negative Physical Exam: ED Triage Vitals [10/21/237] Weight 83.9 kg (185 lb) Actual or estimated Estimated by patient/family report Height 1.6 m (5' 3") BP 138/64 Pulse 88 Resp 15 Temp 36.6 ?C (97.9 ?F) Temp source Oral SpO2 95 % Measured on Room air Physical Exam Vitals and nursing note reviewed. Constitutional: General: She is not in acute distress. Appearance: She is normal weight. She is not ill-appearing, toxic-appearing or diaphoretic. HENT: Head: Normocephalic and atraumatic. Mouth/Throat: Mouth: Mucous membranes are dry. Eyes: Pupils: Pupils are equal, round, and reactive to light. Cardiovascular: Rate and Rhythm: Normal rate and regular rhythm. Pulses: Normal pulses. Heart sounds: Normal heart sounds. Pulmonary: Effort: Pulmonary effort is normal. No respiratory distress. Breath sounds: Normal breath sounds. Abdominal: Palpations: Abdomen is soft. Musculoskeletal: General: Normal range of motion. Skin: General: Skin is warm. Capillary Refill: Capillary refill takes less than 2 seconds. Neurological: General: No focal deficit present. Mental Status: She is alert and oriented to person, place, and time. Psychiatric: Mood and Affect: Mood normal. Behavior: Behavior normal. Radiology: CT HEAD WO CONTRAST Preliminary Result EXAM: CT HEAD WO CONTRAST HISTORY: 78 years-old Female; Provided indication: Mental status change, unknown cause . History obtained from [facility]: Increasing confusion since Thursday. TECHNIQUE: Axial [...] represent sequelae of microvascular ischemic disease. The bain-white matter differentiation is otherwise preserved. There is partial opacification of the right sphenoid sinus. The mastoid air cells and paranasal air sinuses are otherwise clear. The calvarium and central skull base are unremarkable. IMPRESSION Age-indeterminate left parietal lobe infarct, favoring to be subacute to chronic. An MRI can be pursued for further evaluation. Preliminary Report Dictated by Resident: Mor Darby Lab Results: Lab Results COMP. METABOLIC PANEL (42511) - Abnormal Result Value Ref Range NA 137 135 - 145 mmol/L K 4.0 3.5 - 5.0 mmol/L CL 100 98 - 108 mmol/L CO2 TOTAL 26 23 - 31 mmol/L AGAP 11 2 - 16 BUN 22 7 - 23 mg/dL GLUCOSE 240 (*) 70 - 110 mg/dL CREATININE 0.89 0.50 - 1.04 mg/dL TOTAL BILI 1.0 0.1 - 1.1 mg/dL CALCIUM 10.1 8.6 - 10.6 mg/dL T PROTEIN 7.7 6.3 - 8.2 g/dL ALBUMIN 4.4 3.5 - 5.0 g/dL ALK PHOS 63 34 - 122 U/L ALTv 21 5 - 35 U/L AST(SGOT) 27 13 - 40 U/L eGFR 66.5 mL/min/1.73m2 URINALYSIS - Abnormal APPEARANCE Cloudy (*) Clear COLOR Yellow Yellow PH 6.0 4.8 - 8.0 SP GRAVITY 1.027 1.003 - 1.030 GLU U QUAL 500 mg/dL (*) Normal BLOOD Negative Negative KETONES 20 mg/dL (*) Negative PROTEIN Negative Negative UROBILIN Normal Normal BILIRUBIN Negative Negative NITRITE Negative Negative LEUK ZENOBIA 500/uL (*) Negative RBC/HPF 7 (*) 0 - 3 HPF WBC/HPF 86 (*) 0 - 5 HPF BACTERIA Many (*) Negative AMORPHOUS Rare Rare HPF SQ EPITH 1 HPF WBC CLUMPS 18 (*) <=1 HPF LIPASE - Normal LIPASE 50 0 - 220 U/L TROPONIN I - Normal TROPONIN I 0.003 <=0.034 ng/mL CK (CREATINE KINASE) + MB - Normal CK 54 33 - 194 U/L CK-MB 0.47 <=3.50 ng/mL CKMB INDEX 0.9 0.0 - 2.5 % CBC WITH DIFF WBC 8.34 4.30 - 11.10 10*3/?L RBC 4.70 3.93 - 5.25 10*6/?L HGB 14.7 11.6 - 15.0 g/dL HCT 44.4 35.7 - 45.2 % MCV 94.5 80.6 - 95.5 fL MCH 31.3 25.9 - 32.8 pg MCHC 33.1 31.6 - 35.1 g/dL RDW-SD 49.7 39.0 - 49.9 fL RDW-CV 14.3 12.0 - 15.5 % PLT 275 166 - 358 10*3/?L MPV 9.9 9.5 - 12.9 fL NRBC/100 WBC 0.0 0.0 - 10.0 /100 WBCs NRBC x103<0.01 10*3/?L GRAN MAT (NEUT) % 67.0 % IMM GRAN % 0.40 % LYMPH % 22.3 % MONO % 8.5 % EOS % 1.2 % BASO % 0.6 % GRAN MAT x103(ANC) 5.59 1.88 - 7.09 10*3/uL IMM GRAN x1030.03 0.00 - 0.06 10*3/uL LYMPH x1031.86 1.32 - 3.29 10*3/uL MONO x1030.71 0.33 - 0.92 10*3/uL EOS x1030.10 0.03 - 0.39 10*3/uL BASO x1030.05 0.01 - 0.07 10*3/uL URINE CULTURE EKG: If EKG completed, see Procedure Note. Orders and Treatments: Orders Placed This Encounter Procedures XR CHEST [address] HEAD WO CONTRAST Cbc with Diff Comp. Metabolic Panel (85077) Urinalysis Urine Culture Lipase Troponin I CK (Creatine Kinase) + MB Orders Placed This Encounter Medications NaCl 0.9% (NS) bolus infusion 1,000 mL piperacillin-tazobactam (ZOSYN) 3.375 g in NaCl 0.9% (NS) 100 mL MINI-BAG aspirin tablet 325 mg First Provider Eval: ED Events Date/Time Event User Comments 10/21/232210 Medical Screening Begins HIREN FOREMAN MD -- 10/21/232210 First Provider Evaluation HIREN FOREMAN MD -- ED COURSE Diagnosis/Impression as of 10/22/23 0044 Altered mental status, unspecified altered mental status type Procedures: EKG-12 Lead ONCE Date/Time: 10/22/2023 12:49 AM Performed by: Hiren Foreman MD Authorized by: Hiren Foreman MD ECG interpreted by ED Physician in the absence of a edge plugger: yes Previous ECG: Previous ECG: Unavailable Interpretation: Interpretation: abnormal Rate: ECG rate: 82 ECG rate assessment: normal Rhythm: Rhythm: sinus rhythm Ectopy: Ectopy: PAC QRS: QRS axis: Normal QRS intervals: Normal QRS conduction: LBBB ST segments: ST segments: Non-specific T waves: T waves: non-specific Q waves: Abnormal Q-waves: not present MDM: Medical Decision Making Amount and/or Complexity of Data Reviewed Labs: ordered. Radiology: ordered. Risk OTC drugs. Prescription drug management. A) AMS--UTI, Subacute/Chronic Left Parietal CVA, Dementia Disposition/Condition: Admit-IM, MRI in morning,IV abx's, Aspirin, Continue Plavix,Neurochecks, IVF's, d/w Neurology. Patient and family decline transfer of care at this time. ED Disposition None Discharge Medications: Patient's Medications START taking these medications No [...] taking these medications No medications on file Follow-up: PCP Electronically signed by: Hiren Foreman MD 10/22/23 0005 Hiren Foreman MD 10/22/23 0044 Hiren Foreman MD 10/22/23 0049 T [facility] - Sshtcu0028-12-20 08:06:54 Images from the original note were not included. Received refill request for: Requested Prescriptions Pending Prescriptions Disp Refills dapagliflozin propanediol (FARXIGA) 10 mg tablet [Pharmacy Med Name: FARXIGA 10 MG TABLET] 30 tablet 2 Sig: Take 1 tablet by mouth every morning. PLS SCHEDULE FOLLOW UP WITH PROVIDER MAGDIEL: 03/23/23- HF DOUG Lozano NOV : Not Scheduled. MyChart Reminder Sent. EK04/01/23 Labs: 07/09/23-BMP Refill approved in compliance with cardiology guidelines. Pharmacy: [facility]/pharmacy #[id number] - [place], [place] - [address] [place] [address] [phone] [address] [facility] Boy[facility] 21:50:48 Pt given printed and verbal discharge instructions regarding epigastric pain, hiatal hernia, renal mass and encouraged hydration, Prescription sent to pharmacy Pt verbalized understanding of instructions, pt awake alert oriented, resp reg unlabored, skin w/d, color appropriate for race, moves all ext well,pt encouraged to follow up with pcp and urology Advised to seek medical attention for new/prolonged/worsening of symptoms, Symptoms increased pain No adverse reaction to meds given in ER noted upon discharge PIV d'cd, dressing to site, catheter in tact. 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 Pt has had pad GI issues and cardiac issues. Pt denies any fever. Pt has had gallbladder removed. ON Quinones [facility]Gecsrq4678-02-00 00:00:00 [facility]
[2024-09-21] MEDS ORDERED: guaiFENesin 100 MG/5 ML UCUP ONE (23:08)
[2024-09-21] MEDS ORDERED: AZITHROMYCIN 500 MG INJ IVPB ONE (23:12)
[2024-09-21] MEDS ORDERED: CEFTRIAXONE 1000 MG/VIAL ONE (23:12)
[2024-09-21] MEDS ORDERED: NA CHLORIDE 0.9% 1,000 ML ONE (23:13)
[2024-09-21] MEDS ORDERED: NA CHLORIDE 0.9% 250 ML ONE (23:13)
[2024-09-21 23:34] LABS: Absolute Eosinophils 0.1 K/uL (0-0.5); Absolute Lymphocytes (CBC) 2.8 K/uL (0.7-4.9); Absolute Monocytes 1.4 K/uL (0.1-1.3); Absolute Neutrophil 11.4 K/uL (1.8-8.0); Basophils % 0.2 % (0-1.3); D-Dimer 1.047 FEUug/mL (0-0.500); Eosinophils % 0.6 % (0-4.4); Hematocrit 36.3 % (36.0-45.0); Hemoglobin 12.6 g/dL (12.0-15.0); Lymphocytes % 17.7 % (15.3-44.8); MCH 30.7 pg (27.0-35.0); MCHC 34.8 g/dL (32.0-36.0); MCV 88.2 fL (80-100); MPV 7.3 fL (7.6-11.3); Monocytes % 8.9 % (3.3-12.3); Neutrophils % 72.6 % (41.7-73.7); PT Prothrombin Time 13.4 SECONDS (10-13.0); PTT, Activated Partial Thromb 28.5 SECONDS (27.2-37.4); Platelets 337 thou/uL (152-406); Protime INR 1.18; RBC Red Blood Cell Count 4.11 M/uL (3.86-4.86); Red Cell Distribution Width 14.3 % (12.1-15.2)
[2024-09-21 23:41] LABS: Albumin 2.5 g/dL (3.4-5.0); Albumin/Globulin Ratio 0.5 (1.1-1.8); Anion Gap 10.1 mEq/L (5.0-15.0); Bilirubin Direct 0.2 mg/dL (0-0.2); Bilirubin Indirect, Calculated 0.3 mg/dL (0.2-0.8); Bilirubin Total 0.5 mg/dL (0.2-1.0); Globulin 4.6 g/dL (2.3-3.5); Magnesium 1.6 mg/dL (1.6-2.4); Potassium 4.1 mEq/L (3.5-5.1); Protein, Total 7.1 g/dL (6.4-8.2); Troponin High Sensitivity 8.4 pg/mL (<58.9)
[2024-09-22] MEDS ORDERED: FUROSEMIDE 40 MG/4 ML VIAL ONE (00:32)
--- NOTE | 2024-09-22 00:49 | ER ---
Nurse's Notes [facility] Name: Werner Yo Age: 79 yrs Sex: Female : 1945 Arrival Date: 09/21/2024 Time: 21:54 Bed 7 Private MD: Diagnosis: Acute pulmonary edema;Acute respiratory failure with hypoxia;Acute on chronic diastolic (congestive) heart failure Presentation: 09/21 22:05 Chief complaint: Chief complaint: EMS states: Patient has been diagnosed with an upper kd3 respiratory infection and have had a productive cough for 3 weeks, which she has been on antibiotics for. Pt was 92% on 2 L nasal canula. Pt has had chest pain for about an hour. No fevers. Pt was administered 324 aspirin in route and nitro. Finger stick was 207. 22:05 Coronavirus screen: Vaccine status: unknown. Ebola Screen: No symptoms or risks kd3 identified at this time. Initial Sepsis Screen: Does the patient meet any 2 criteria? No. Patient's initial sepsis screen is negative. Does the patient have a suspected source of infection? No. Patient's initial sepsis screen is negative. Risk Assessment: Do you want to hurt yourself or someone else? Patient reports no desire to harm self or others. Onset of symptoms was September 21, 2024. 22:05 Method Of Arrival: EMS: [facility] kd3 22:05 Acuity: ALTON 3 kd3 Triage Assessment: 22:09 General: Appears in no apparent distress. Behavior is calm, cooperative. Pain: Denies kd3 pain. Respiratory: Reports shortness of breath at rest Onset: The symptoms/episode began/occurred gradually, the patient has moderate shortness of breath. Historical: - PMHx: 22:09 ACUTE POSTHEMORRHAGIC ANEMIA; GERD; acute respiratory failure; chronic fatigue; kd3 hypotension; Chronic obstructive lung disease; Hypertensive disorder; Congestive heart failure; acute pulmonary edema; DYSPHAGIA; Anxiety; cognitive communication deficit; Bipolar disorder; chronic muscle weakness; diabetes mellitus; Hyperlipidemia; Major Depressive Disorder; overactive bladder; Paroxysmal Atrial Fibrillation; - PSHx: 22:09 Appendectomy; Cholecystectomy; Total abdominal hysterectomy; kd3 - Immunization history:: Adult Immunizations up to date. - Infectious Disease History:: Denies. - Social history:: Smoking status: unknown. - Family history:: not pertinent. Screenin:12 [facility] ED Fall Risk Assessment (Adult). Abuse screen: Denies threats or abuse. Denies kd3 injuries from another. 23:30 [facility] ED Fall Risk Assessment (Adult) History of falling in the last 3 months, kd3 including since admission No falls in past 3 months (0 pts) Confusion or Disorientation No (0 pts) Intoxicated or Sedated No (0 pts) Impaired Gait No (0 pts) Mobility Assist Device Used No (0 pt) Altered Elimination No (0 pt) Score/Fall Risk Level 0 - 2 = Low Risk Oriented to surroundings. Abuse screen: Denies threats or abuse. Nutritional screening: No deficits noted. Tuberculosis screening: No symptoms or risk factors identified. Assessment: 23:28 General: Pt placed on bipap after breathing treatments due to consistent desaturation. kd3 Pt Vital signs improve. . 23:29 Cardiovascular: Rhythm is regular. Respiratory: Airway is patent Respiratory effort is kd3 labored, Breath sounds are coarse bilaterally. Breath sounds with crackles bilaterally. 09/22 04:52 Reassessment: Patient denies pain at this time. Patient states feeling better. Patient kd3 states symptoms have improved. Neuro: Level of Consciousness is awake, alert, obeys commands, Oriented to person, place, time, situation. 06:54 General: Pt cleaned of incontinence, pt placed on a new pur wick. Pt remains stable on kd3 bipap. . 07:40 Reassessment: PT TBA, ADMIT ORDERS PENDING. bp Vital Signs: 09/21 23:11 BP 144 / 84; Pulse 93; Resp 22; Temp 98.1(O); Pulse Ox 85% on NC; FiO2 5 %; kd3 09/22 03:57 BP 125 / 54; Pulse 67; Resp 20; Pulse Ox 93% on BiPAP; kd3 04:52 BP 127 / 75; Pulse 56; Resp 19; Pulse Ox 95% on BiPAP; kd3 05:02 BP 138 / 51; Pulse 66; Resp 20; Pulse Ox 96% on BiPAP; kd3 06:11 BP 152 / 65; Pulse 56; Resp 20; Pulse Ox 98% on BiPAP; kd3 07:40 BP 144 / 57; Pulse 61; Resp 22; Pulse Ox 96% ; bp Jenny Coma Score: 00:31 Eye Response: spontaneous(4). Motor Response: obeys commands(6). Verbal Response: sp4 oriented(5). Total: 15. ED Course: 09/21 22:04 Patient arrived in ED. cj3 22:05 Chelsi Valles, RN is Primary Nurse. kd3 22:05 Wellington Johnson MD is Attending Physician. sp4 22:09 Triage completed. kd3 22:32 XRAY CXR (1 view) In Process Unspecified. EDMS 23:09 Troponin HS Sent. kd3 23:09 Ptt, Activated Sent. kd3 23:09 PT-INR Sent. kd3 23:09 NT PRO-BNP Sent. kd3 23:09 Magnesium Sent. kd3 23:09 Lipase Sent. kd3 23:09 Hepatic Function Sent. kd3 23:09 D-Dimer Sent. kd3 23:09 CPK Sent. kd3 23:09 CBC with Diff Sent. kd3 23:09 Blood Culture Adult (2) Sent. kd3 23:09 BMP Sent. kd3 23:09 Lactate w/ 2H reflex if indic. Sent. kd3 23:09 CRP Sent. kd3 23:30 Arm band placed on. kd3 05 01:[address] [facility] advised that all facilities are at capacity. vk 01:15 Bandar Dewitt MD is Hospitalizing Provider. sp4 03:58 No provider procedures requiring assistance completed. Patient admitted, IV remains in kd3 place. 03:58 Patient has correct armband on for positive identification. Provided Education on: ER kd3 Hold . 04:51 CT Chest For PE Angio In Process Unspecified. EDMS 09:23 monitor technician on. Pulse ox on. NIBP on. Door closed. Noise minimized. Lights dimmed. kc6 Warm blanket given. Pillow given. Verbal reassurance given. Repositioned patient. Cleaned of incontinence. Linen changed. Administered Medications: 03:59 Discontinued: ns 0.9% 1000 ml IV at 125 ml/hr Per protocol; to be given as a bolus over kd3 60 minutes 09/21 22:36 Drug: Albuterol Inhalation 2.5 mg Inhalation once Route: Inhalation; kd3 22:36 Drug: Ipratropium Inhalation Aerosol 0.5 mg Inhalation once Route: Inhalation; kd3 22:36 Drug: MethylPrednisoLONE IVP 125 mg IVP once Route: IVP; Site: right forearm; kd3 22:36 Drug: Ondansetron IVP 4 mg IVP once; over 2 minutes Route: IVP; Site: right forearm; kd3 22:36 Drug: Ativan IVP 0.5 mg IVP once Route: IVP; Site: right forearm; kd3 09/22 03:59 Follow up: Response: No adverse reaction kd3 09/21 23:09 Drug: Dextromethorphan-Guaifenesin PO Liquid 10 mg-100 mg/5 mL 10 ml PO once Route: PO; kd3 23:22 Drug: Rocephin - Rocephin (cefTRIAXone) IVPB 1 grams IVPB once over 30 mins; (mix in 50 kd3 mL NS) Route: IVPB; Infused Over: 30 mins; Site: right forearm; 09/22 03:59 Follow up: IV Status: Completed infusion kd3 09/21 23:22 Drug: Zithromax IVPB 500 mg IVPB once over 1 hrs; mix in 250 mL NS Route: IVPB; Infused kd3 Over: 1 hrs; Site: right forearm; 09/22 03:59 Follow up: IV Status: Completed infusion kd3 09/21 23:22 Drug: NS 0.9% IV 1000 ml IV at 125 ml/hr Per protocol; to be given as a bolus over 60 kd3 minutes Route: IV; Rate: 125 ml/hr; Site: right forearm; 09/22 00:43 Drug: Furosemide IVP 40 mg IVP once; give over 2 minutes Route: IVP; Site: right kd3 antecubital; 03:59 Follow up: Response: No adverse reaction kd3 Medication: 09/21 23:30 VIS not applicable for this client. kd3 Outcome: 09/22 00:49 ER care complete, transfer ordered by . sp4 01:15 Decision to Hospitalize by Provider. sp4 03:58 Admitted to ER Hold. Please see [facility] for further documentation. kd3 03:58 Condition: stable 03:58 Discharge instructions given to patient, family, Instructed on the need for admit, Demonstrated understanding of instructions, follow-up care, 11:14 Patient left the ED. kc6 Signatures: Dispatcher [employer] EDMS Azael Edmond RN RN bp Doucette, Kyli, RN RN kd3 Caitlin Siddiqui RN RN kc6 Wellington Johnson MD MD sp4 Palmira Alba Celeste cj3 Corrections: (The following items were deleted from the chart) 09/21 22:09 22:05 Chief complaint: kd3 kd3
--- NOTE | 2024-09-22 00:49 | EDPHYS ---
Physician Documentation [facility] Name: Werner Yo Age: 79 yrs Sex: Female : 1945 Arrival Date: 09/21/2024 Time: 21:54 Bed 7 Private MD: ED Physician Wellington Johnson HPI: 09/21 22:14 This 79 yrs old Female presents to ER via EMS with complaints of Productive sp4 Cough, Chest Pain. 09/22 00:22 79-year-old female presents with productive cough, purulent sputum, feeling unwell. sp4 Patient presents with EMS from [facility].. Past medical history positive for previous respiratory failure, anemia, essential hypertension, COPD, pulmonary edema, prolonged immobility, also positive for type 2 diabetes, generalized weakness, dysphagia, cognitive communication deficit, chronic fatigue, generalized anxiety disorder, encephalopathy, systolic congestive heart failure, pneumonia, atrial fibrillation, overactive bladder, hyperlipidemia, bipolar disorder, major depressive disorder, anxiety disorder, GERD, and dependence on supplemental oxygen. Patient's medications include acetaminophen 325 as needed, aripiprazole 2 mg once a day, sorbic acid 500 mg daily, aspirin 81 mg daily, atorvastatin 81 mg daily azithromycin 250 mg daily, benzonatate 100 mg daily, carvedilol 6.25 mg twice a day, Plavix 75 mg daily, docusate 100 mg daily, duloxetine 30 mg daily, ezetimibe 10 mg daily, fenofibrate 48 mg daily, insulin lispro 5 units subcutaneously twice a day, insulin glargine 24 units every 12 hours, codeine as needed cough, gabapentin 300 mg daily, furosemide 20 mg daily, fluticasone spray daily, ferrous sulfate once a day lidocaine ipratropium as needed, lidocaine patch daily, magnesium oxide daily, omeprazole 20 mg daily, polyethylene glycol as needed, prednisone 10 mg daily, spironolactone 25 mg half tablet once a day.. Historical: - PMHx: 09/21 22:09 ACUTE POSTHEMORRHAGIC ANEMIA; GERD; acute respiratory failure; chronic fatigue; kd3 hypotension; Chronic obstructive lung disease; Hypertensive disorder; Congestive heart failure; acute pulmonary edema; DYSPHAGIA; Anxiety; cognitive communication deficit; Bipolar disorder; chronic muscle weakness; diabetes mellitus; Hyperlipidemia; Major Depressive Disorder; overactive bladder; Paroxysmal Atrial Fibrillation; - PSHx: 22:09 Appendectomy; Cholecystectomy; Total abdominal hysterectomy; kd3 - Immunization history:: Adult Immunizations up to date. - Infectious Disease History:: Denies. - Social history:: Smoking status: unknown. - Family history:: not pertinent. ROS: 09/22 00:31 Constitutional: Negative for fever, chills, and weight loss, positive generalized sp4 weakness, positive cough, positive purulent sputum, positive congestion, positive shortness of breath, Eyes: Negative for injury, pain, redness, and discharge, ENT: Negative for injury, pain, and discharge, Neck: Negative for injury, pain, and swelling, Cardiovascular: Negative for chest pain, palpitations, and edema, All other systems are negative, Exam: 00:31 Constitutional: Patient is elderly debilitated female, morbidly obese, signs of sp4 prolonged immobility, acutely dyspneic on arrival pale and ill-appearing. Stable blood pressure. Head/Face: Normocephalic, atraumatic. Eyes: Pupils equal round and reactive to light, extra-ocular motions intact. Lids and lashes normal. Conjunctiva and sclera are not injected. Cornea within normal limits. Periorbital areas with no swelling, redness, or edema. ENT: Nares patent. No nasal discharge, no septal abnormalities noted. Tympanic membranes are normal and external auditory canals are clear. Oropharynx with no redness, swelling, or masses, exudates, or evidence of obstruction, uvula midline. Mucous membranes moist. Neck: Trachea midline, no thyromegaly or masses palpated, and no cervical lymphadenopathy. Supple, full range of motion without nuchal rigidity, or vertebral point tenderness. Chest/axilla: Normal chest wall appearance and motion. Nontender with no deformity. No lesions are appreciated. Cardiovascular: Regular rate and rhythm with a normal S1 and S2. No gallops, murmurs, or rubs. Normal PMI, no JVD. No pulse deficits. Respiratory: Lungs have equal breath sounds bilaterally, positive bilateral crackles, positive dyspnea and tachypnea, mild respiratory distress. Abdomen/GI: Soft, with normal bowel sounds. No distension or tympany. No guarding or rebound. No evidence of tenderness throughout. Back: No spinal tenderness. No costovertebral tenderness. Female : Normal external genitalia. Patient is incontinent of bowel Skin: Warm, dry with normal turgor. Normal color with no rashes, no lesions, and no evidence of cellulitis. MS/ Extremity: Pulses equal, no cyanosis. Neurovascular intact. Full, normal range of motion. Neuro: Awake and alert, GCS 15, oriented to person, place, time, and situation. Cranial nerves II-XII grossly intact. Sensory grossly intact. Grossly no neurologic deficits. Generalized physical debility limits exam. 00:31 ECG was reviewed by the Attending Physician. Vital Signs: 09/21 23:11 BP 144 / 84; Pulse 93; Resp 22; Temp 98.1(O); Pulse Ox 85% on NC; FiO2 5 %; kd3 09/22 03:57 BP 125 / 54; Pulse 67; Resp 20; Pulse Ox 93% on BiPAP; kd3 04:52 BP 127 / 75; Pulse 56; Resp 19; Pulse Ox 95% on BiPAP; kd3 05:02 BP 138 / 51; Pulse 66; Resp 20; Pulse Ox 96% on BiPAP; kd3 06:11 BP 152 / 65; Pulse 56; Resp 20; Pulse Ox 98% on BiPAP; kd3 07:40 BP 144 / 57; Pulse 61; Resp 22; Pulse Ox 96% ; bp Jenny Coma Score: 00:31 Eye Response: spontaneous(4). Motor Response: obeys commands(6). Verbal Response: sp4 oriented(5). Total: 15. MDM: 09/21 23:59 Medical Screening Exam initiated sp4 09/22 00:36 Differential Diagnosis: Obstructed Airway Bronchitis Influenza Upper Respiratory sp4 Infection Sinusitis Pharyngitis Otitis Media Allergic Rhinitis. Data reviewed: vital signs, nurses notes, EMS record, long term records, old medical records, lab test result(s), EKG, radiologic studies, plain films. Consideration of Admission/Observation Escalation of care including admission/observation considered. ED course: EXAM DESCRIPTION: XR CHEST 1 VIEW 09/21/2024 11:22 PM CDT CLINICAL HISTORY: 79 years, Female, Chest pain. COMPARISON: XR Chest 06/24/2024. FINDINGS: 1 view of the chest (AP portable projection) was obtained. Prior films were compared. There is slight decreased lung volume. Mediastinum: The cardiomediastinal silhouette appears normal in size and shape. Lungs: Increased interstitial densities throughout the lungs. Heart: The heart is in the upper normal size. Thoracic aorta: The thoracic aorta demonstrate to be tortuous with minimal intimal consultation. Pulmonary vasculature: There is increased interstitial pulmonary markings suggesting the possibility of interstitial pulmonary edema. Pleura: There is questionable small trace of left pleural effusion. Osseous structures: The bony structures demonstrate minimal degenerative changes bilateral glenohumeral joint. Other: External EKG leads within the [id number] limits diagnosis. IMPRESSION: Increased interstitial densities throughout the lungs suggesting the possibility of interstitial pulmonary edema. Questionable small trace left pleural effusion.. ED course: 79-year-old female presents with acute respiratory failure patient started on BiPAP. Found to have pulmonary edema on chest x-ray. Administered Lasix. Also patient has purulent sputum consistent with bacterial type infection. Patient was given IV Rocephin and Zithromax. Vital signs stable with BiPAP application. Patient requested transfer to [facility] or [place].. 05:52 ED course: CLINICAL HISTORY: Chest pain. COMPARISON: XR Chest 09/21/2024, CT Chest sp4 abdomen pelvis 06/15/2024. TECHNIQUE: CT CHESTANGIOGRAPHYWITH IV CONTRAST on 09/22/2024 3:49 AM CDT. MIPS reconstructions were generated. This exam was performed according to our departmental dose-optimization program, which includes automated exposure control, adjustment of the mA and/or kV according to patient size and/or use of iterative reconstruction technique. MIP images were generated. FINDINGS: Thoracic aorta is normal in course and caliber without aneurysm or dissection. Pulmonary arteries are adequately opacified without acute or chronic filling defects. The heart is mildly enlarged. There is an occlusion device in the left atrial appendage. There is no pericardial effusion. Intrathoracic lymph nodes are not enlarged. There is no pleural effusion, pleural thickening or pneumothorax. Central airways are patent. There is extensive airspace disease throughout the left lower lobe with a mild posterior right lower lobe involvement. There is patchy airspace disease in the right middle lobe and inferior right upper lobe. There is an irregular nodule in the anterior right middle lobe measuring 16 mm. This nodule was not present on fairly recent prior study and should be closely followed. There are no acute abnormalities within the limited images of the upper abdomen. There are no acute osseous findings. No suspicious bony lesions. IMPRESSION: Extensive bilateral pneumonia. No aortic dissection or aneurysm. No pulmonary embolus. Indeterminate right middle lobe pulmonary nodule. Because this nodule was not present on the recent prior study, it may be infectious or inflammatory in nature. Consider follow-up chest CT following resolution of acute symptoms or in 3-4 weeks. . 09/21 22:07 Order name: BMP; Complete Time: 00:07 4 09/21 22:07 Order name: Blood Culture Adult (2) 4 09/21 22:07 Order name: CBC with Diff; Complete Time: 23:40 4 09/21 22:07 Order name: CPK; Complete Time: 00:07 4 09/21 22:07 Order name: D-Dimer; Complete Time: 23:40 4 09/21 22:07 Order name: Hepatic Function; Complete Time: 00:07 4 09/21 22:07 Order name: Lipase; Complete Time: 00:07 [facility] 09/21 22:07 Order name: Magnesium; Complete Time: 00:07 4 09/21 22:07 Order name: NT PRO-BNP; Complete Time: 00:07 [facility] 09/21 22:07 Order name: PT-INR; Complete Time: 23:40 [facility] 09/21 22:07 Order name: Ptt, Activated; Complete Time: 23:40 4 09/21 22:07 Order name: Troponin HS; Complete Time: 00:07 4 09/21 22:22 Order name: Lactate w/ 2H reflex if indic.; Complete Time: 00:07 4 09/21 22:22 Order name: CRP; Complete Time: 23:40 4 09/21 22:28 Order name: ABG; Complete Time: 07:23 4 09/22 08:33 Order name: Basic Metabolic Panel EDMS 09/22 08:33 Order name: CBC with Automated Diff EDMS 09/22 09:03 Order name: Basic Metabolic Panel EDMS 09/22 09:03 Order name: Basic Metabolic Panel EDMS 09/22 09:03 Order name: Basic Metabolic Panel EDMS 09/22 09:03 Order name: Basic Metabolic Panel EDMS 09/22 09:03 Order name: Basic Metabolic Panel EDMS 09/22 09:03 Order name: Basic Metabolic Panel EDMS 09/22 09:03 Order name: CBC with Automated Diff EDMS 09/22 09:03 Order name: CBC with Automated Diff EDMS 09/22 09:03 Order name: CBC with Automated Diff EDMS 09/22 09:03 Order name: CBC with Automated Diff EDMS 09/22 09:03 Order name: CBC with Automated Diff EDMS 09/22 09:03 Order name: CBC with Automated Diff EDMS 09/21 22:07 Order name: XRAY CXR (1 view) [facility] 09/21 23:05 Order name: BIPAP 4 09/22 03:49 Order name: CT Chest For PE Angio 4 09/21 22:07 Order name: EKG; Complete Time: 22:07 4 09/21 22:07 Order name: Cardiac monitoring; Complete Time: 22:36 sp4 09/21 22:07 Order name: EKG - Nurse/Tech; Complete Time: 22:35 4 09/21 22:07 Order name: IV Saline Lock; Complete Time: 22:35 4 09/21 22:07 Order name: Labs collected and sent; Complete Time: 23:09 4 09/21 22:07 Order name: O2 Per Protocol; Complete Time: 23:09 4 09/21 22:07 Order name: O2 Sat Monitoring; Complete Time: 23:09 4 09/22 00:12 Order name: Misc. Order: discontinue fluids ; Complete Time: 00:25 sp4 EC/07 22:23 Rate is 75 beats/min. Rhythm is regular, Sinus Rhythm. QRS Brady is Normal. KS interval sp4 is normal. QRS interval is prolonged. QT interval is normal. T waves are Normal. No ST changes noted. Clinical impression: No evidence of ischemia. Interpreted by me. Reviewed by me. Administered Medications: 09/22 03:59 Discontinued: ns 0.9% 1000 ml IV at 125 ml/hr Per protocol; to be given as a bolus over kd3 60 minutes 09/21 22:36 Drug: Albuterol Inhalation 2.5 mg Inhalation once Route: Inhalation; kd3 22:36 Drug: Ipratropium Inhalation Aerosol 0.5 mg Inhalation once Route: Inhalation; kd3 22:36 Drug: MethylPrednisoLONE IVP 125 mg IVP once Route: IVP; Site: right forearm; kd3 22:36 Drug: Ondansetron IVP 4 mg IVP once; over 2 minutes Route: IVP; Site: right forearm; kd3 22:36 Drug: Ativan IVP 0.5 mg IVP once Route: IVP; Site: right forearm; kd3 09/22 03:59 Follow up: Response: No adverse reaction kd3 09/21 23:09 Drug: Dextromethorphan-Guaifenesin PO Liquid 10 mg-100 mg/5 mL 10 ml PO once Route: PO; kd3 23:22 Drug: Rocephin - Rocephin (cefTRIAXone) IVPB 1 grams IVPB once over 30 mins; (mix in 50 kd3 mL NS) Route: IVPB; Infused Over: 30 mins; Site: right forearm; 09/22 03:59 Follow up: IV Status: Completed infusion kd3 09/21 23:22 Drug: Zithromax IVPB 500 mg IVPB once over 1 hrs; mix in 250 mL NS Route: IVPB; Infused kd3 Over: 1 hrs; Site: right forearm; 09/22 03:59 Follow up: IV Status: Completed infusion kd3 09/21 23:22 Drug: NS 0.9% IV 1000 ml IV at 125 ml/hr Per protocol; to be given as a bolus over 60 kd3 minutes Route: IV; Rate: 125 ml/hr; Site: right forearm; 09/22 00:43 Drug: Furosemide IVP 40 mg IVP once; give over 2 minutes Route: IVP; Site: right kd3 antecubital; 03:59 Follow up: Response: No adverse reaction kd3 Disposition Summary: 09/22/24 01:15 Hospitalization Ordered Notes: Hospitalization Status: Inpatient Admission sp4 Provider: Bandar Dewitt sp4 Condition: Serious(09/22/24 01:15) sp4 Problem: new(09/22/24 01:15) sp4 Symptoms: have improved(09/22/24 01:15) sp4 Bed/Room Type: Standard sp4 Location: Intensive Care Unit(09/22/24 10:11) hb Room Assignment: 4-(09/22/24 10:11) hb Diagnosis - Acute pulmonary edema(09/22/24 01:15) sp4 - Acute respiratory failure with hypoxia(09/22/24 01:15) sp4 - Acute on chronic diastolic (congestive) heart failure(09/22/24 01:15) sp4 Forms: - Medication Reconciliation Form sp4 - SBAR form sp4 - Leadership Thank You Letter sp4 Critical care time excluding procedures: 00:36 Critical care time: Bedside Care: 36 minutes, Consultation: 12 minutes, Family sp4 Intervention: 12 minutes. Total time: 60 minutes Signatures: Dispatcher [employer] EDMS Bethany Abreu, RN RN Chelsi Valles RN RN kd3 Josy Diaz, RN RN vc1 Wellington Johnson MD MD sp4 Andre Spence Corrections: (The following items were deleted from the chart) 09/21 22:08 22:07 BASIC METABOLIC PANEL+C.LAB.BRZ ordered. EDMS EDMS 22:08 22:07 BLOOD CULTURE*+BA.LAB.BRZ ordered. EDMS EDMS 22:08 22:07 CBC+H.LAB.BRZ ordered. EDMS EDMS 22:08 22:07 CREATINE PHOSPHOKINASE+C.LAB.BRZ ordered. EDMS EDMS 22:08 22:07 D-DIMER+COAG.LAB.BRZ ordered. EDMS EDMS 22:08 22:07 HEPATIC FUNCTION+C.LAB.BRZ ordered. EDMS EDMS 22:08 22:07 LIPASE+C.LAB.BRZ ordered. EDMS EDMS 22:08 22:07 MAGNESIUM+C.LAB.BRZ ordered. EDMS EDMS 22:08 22:07 PROBNP+C.LAB.BRZ ordered. EDMS EDMS 22:08 22:07 PROTIME (+INR)+COAG.LAB.BRZ ordered. EDMS EDMS 22:08 22:07 PTT, ACTIVATED+COAG.LAB.BRZ ordered. EDMS EDMS 22:08 22:07 Troponin High Sensitivity+C.LAB.BRZ ordered. EDMS EDMS 09/22 01:14 00:49 [facility] Attending sp4 sp4 01:14 00:49 [facility]-System sp4 sp4 01:14 00:49 Higher level of care sp4 sp4 01:14 00:49 Stable sp4 sp4 01:14 00:49 new sp4 sp4 01:14 00:49 have improved sp4 sp4 01:14 00:49 Acute pulmonary edema sp4 sp4 01:14 00:49 Acute on chronic diastolic (congestive) heart failure sp4 sp4 01:14 00:49 Acute respiratory failure with hypoxia sp4 sp4 02:53 01:15 Intensive Care Unit sp4 vc1 02:53 01:15 sp4 vc1 03:49 03:49 Chest For PE Angio+CT.RAD.BRZ ordered. EDMS EDMS 07:35 02:53 [facility] ER HOLD vc1 ty 07:35 02:53 ERHOLD- vc1 ty 10:11 07:35 Telemetry/MedSurg (Inpatient) ty hb 10:11 07:35 ty hb
[2024-09-22 04:28] LABS: Blood O2 Saturation 89.3 % (92-98.5)
[2024-09-22 04:29] LABS: Arterial Blood Carboxyhemoglob 0.8 % (0-1.5); Blood Gas Oxyhemoglobin 87.1 % (94-97)
[2024-09-22 04:30] LABS: Blood Gas THB 12.9 g/dl (12-18)
--- NOTE | 2024-09-22 05:24 | RAD REPORT ---
EXAM DESCRIPTION: XR CHEST 1 VIEW 09/21/2024 11:22 PM CDT CLINICAL HISTORY: 79 years, Female, Chest pain. COMPARISON: XR Chest 06/24/2024. FINDINGS: 1 view of the chest (AP portable projection) was obtained. Prior films were compared. There is slig ht decreased lung volume. Mediastinum: The cardiomediastinal silhouette appears normal in size and shape. Lungs: Increased interstitial densities throughout the lungs. Heart: The heart is in the upper normal size. Thoracic aorta: The thoracic aorta demonstrate to be tortuous with minimal intimal consultation. Pulmonary vasculature: There is increased interstitial pulmonary markings suggesting the possibility of interstitial pulmonary edema. Pleura: There is questionable small trace of left pleural effusion. Osseous structures: The bony structures demonstrate minimal degenerative changes bilateral glenohumer al joint. Other: External EKG leads within the [id number]-[id number] limits diagnosis. IMPRESSION: Increased interstitial densities throughout the lungs suggesting the possibility of interstitial pulm onary edema. Questionable small trace left pleural effusion. Electronically signed by: Ted Mendes MD 09/21/2024 11:42 PM CDT Due to temporary technical issues with the PACS/[employer] reporting system, reports are being or[place] d by the in-house radiologist without review as a courtesy to ensure prompt reporting the interpreting radiologist is fully responsible for the content of the report. Transcribed Date/Time: 09/22/2024 5:23 AM
--- NOTE | 2024-09-22 05:52 | RAD REPORT ---
CLINICAL HISTORY: Chest pain. COMPARISON: XR Chest 09/21/2024, CT Chest abdomen pelvis 06/15/2024. TECHNIQUE: CT CHEST ANGIOGRAPHY WITH IV CONTRAST on 09/22/2024 3:49 AM CDT. MIPS reconstructions were g enerated. This exam was performed according to our departmental dose-optimization program, which includes autom ated exposure control, adjustment of the mA and/or kV according to patient size and/or use of iterative reconstruction technique. MIP images were generated. FINDINGS: Thoracic aorta is normal in course and caliber without aneurysm or dissection. Pulmonary arteries are adequately opacified without acute or chronic filling defects. The heart is mildly enlarged. There is an occlusion device in the left atrial appendage. There is no pericardial effusion. Intrathoracic lymph nodes are not enlarged. There is no pleural effusion, pleural thickening or pneumothorax. Central airways are patent. There i s extensive airspace disease throughout the left lower lobe with a mild posterior right lower lobe involvement. There is patchy airspace disease in the right middle lobe and inferior right upper lobe. There is an irregular nodule in the anterior right middle lobe measuring 16 mm. This nodule was not present on fairly recent prior study and should be closely followed. There are no acute abnormalities within the limited images of the upper abdomen. There are no acute osseous findings. No suspicious bony lesions. IMPRESSION: Extensive bilateral pneumonia. No aortic dissection or aneurysm. No pulmonary embolus. Indeterminate right middle lobe pulmonary nodule. Because this nodule was not present on the recent p rior study, it may be infectious or inflammatory in nature. Consider follow-up chest CT following resolution of acute symptoms or in 3-4 weeks. Electronically signed by: Vitaliy Bhatt MD 09/22/2024 05:49 AM CDT RP Due to temporary technical issues with the PACS/[employer] reporting system, reports are being or[place] d by the in-house radiologist without review as a courtesy to ensure prompt reporting the interpreting radiologist is fully responsible for the content of the report. Transcribed Date/Time: 09/22/2024 5:52 AM
[2024-09-22] MEDS ORDERED: ALBUTEROL 2.5 MG/3 ML NEB SOL NEB PRN (08:58)
[2024-09-22] MEDS ORDERED: ONDANSETRON 4 MG/2 ML VIAL IV PRN (08:58)
[2024-09-22] MEDS ORDERED: D10W 125 ML IV PRN (09:00)
[2024-09-22] MEDS: VANCOMYCIN 1 GM in NA CHLORIDE 0.9% 250 ML IVPB SCH (09:00)
[2024-09-22] MEDS ORDERED: GLUCAGON 1 MG/VIAL IM PRN (09:00)
[2024-09-22] MEDS ORDERED: SODIUM CHLORIDE 0.9% 10ML INJ IV PRN (09:01)
--- NOTE | 2024-09-22 10:31 | P.HP ---
Certification for Inpatient Patient admitted to: Inpatient With expected LOS: >2 Midnights Patient will require the following post-hospital care: None Practitioner: I am a practitioner with admitting privileges, knowledge of patient current condition, hospital course, and medical plan of care. Services: Services provided to patient in accordance with Admission requirements found in Title 42 Section 412.3 of the Code of Federal Regulations Patient History Date of Service: 09/22/24 Reason for admission: Pneumonia History of Present Illness: I have seen the patient around 8:30 AM, this is a late entry. 79-year-old patient present with shortness of breath and cough for the last 1 week, she was found to be in acute respiratory failure, given antibiotics, started on BiPAP and we were asked admit the patient, she looks comfortable on BiPAP at the time of my visit. Other than this she denies any other acute complaints. History may be limited due to that patient is on BiPAP No headache or blackouts. No double vision or blurry vision. No chest pain. No nausea or vomiting. No abdominal pain. No constipation or diarrhea. No blood in the urine or stool. No fever. No lower extremity edema. No joint pains. No recent change in the weight. Review of systems: All other 10 point review of systems are negative other than as mentioned above. Allergies and medications: Reviewed, as per [facility] EMR. Past medical history: COPD, anemia, hypertension, diabetes mellitus type 2, atrial fibrillation status post Watchman device, chronic diastolic heart failure, GERD Past surgical history: Cholecystectomy, appendectomy Social history: No smoking or alcohol or drugs Family history: No family history of DE or CVA Physical examination: Vital signs: Reviewed, as per EMR. 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: Moves all 4 extremities, no obvious focal deficits, alert and oriented Musculoskeletal: No obvious joint swelling or tenderness Allergies No Known Allergies Allergy (Verified 10/26/23 18:45) Home Medications: ARIPiprazole [Aripiprazole] 2 mg PO DAILY 10/26/23 Atorvastatin Calcium [Lipitor] 80 mg PO BEDTIME 10/26/23 Clopidogrel Bisulfate [Plavix*] 75 mg PO DAILY 10/26/23 Duloxetine HCl 30 mg PO BID 10/26/23 Ezetimibe 10 mg PO DAILY 10/26/23 Fenofibrate,Micronized [Fenofibrate] 48 mg PO DAILY 10/26/23 Ferrous Sulfate [Ferrous Sulfate*] 325 mg PO DAILY 10/26/23 Furosemide [Lasix*] 20 mg PO DAILY 10/26/23 Spironolactone [Aldactone*] 12.5 mg PO DAILY 10/26/23 carvediloL [Carvedilol] 6.25 mg PO BID 10/26/23 Aspirin [Aspirin EC] 81 mg PO DAILY #30 11/05/23 Magnesium Oxide [Mag 0X Tab] 400 mg PO BID 5 Days #10 tab 06/22/24 guaiFENesin [Robitussin 100MG/5ML] 5 ml PO QID 20 Days #1 bottle 06/22/24 Ascorbic Acid [Vitamin C] 500 mg PO DAILY 09/22/24 Benzonatate [Tessalon Perle] 100 mg PO BID PRN 09/22/24 Gabapentin 300 mg PO DAILY 09/22/24 Insulin Glargine,Hum.rec.anlog [Semglee] 24 unit SQ BID 09/22/24 Insulin Lispro See Protocol SQ ACHS 09/22/24 Ipratropium/Albuterol Sulfate [Iprat-Albut 0.5-3(2.5) mg/3 ml] 3 ml IH Q4H PRN 09/22/24 - Past Medical/Surgical History Diabetic: Yes -: DM2 -: GERD -: HTN -: Hyperlipidemia -: CHF -: AFIB-watchman -: Back sx -: appendectomy -: cholecystectomy -: hysterectomy -: tonsillectomy Psychosocial/ Personal History: Currently at [facility] - Social History Alcohol use: No CD- Drugs: No Caffeine use: No Physical Examination - Vital Signs Pulse: 86 Pulse Ox (%): 91 - Studies Laboratory Data (last 24 hrs) 09/21/24 09/21/24 09/21/24 23:02 23:02 23:02 WBC 15.70 H Hgb 12.6 Hct 36.3 Plt Count 337 PT 13.4 H INR 1.18 APTT 28.5 Sodium 133 L Potassium 4.1 BUN 17 Creatinine 0.64 Glucose 183 H Magnesium 1.6 Total Bilirubin 0.5 AST 22 ALT 22 Alkaline Phosphatase 105 Lipase 26 Assessment and Plan - Plan Assessment and plan: 1. Pneumonia with acute hypoxic respiratory failure: Continue BiPAP, started on broad-spectrum IV antibiotics, pulmonary consult requested, monitor respiratory status closely, will admit to ICU for now. 2. COPD: Continue inhalers/nebs. 3. Chronic anemia: Monitor closely. 4. Hypertension: Resume home medications once she starts taking oral medications, as needed IV medications for now. 5. Diabetes mellitus type 2: Sliding scale insulin for now. 6. History of atrial fibrillation status post Watchman device 7. Chronic diastolic heart failure: Monitor volume status closely 8. Lung nodule on CT scan: Follow-up with PCP with repeat CT scan after treating pneumonia 9. GERD: Continue PPI DVT prophylaxis: Lovenox CODE STATUS: She would like to be full code Advanced directives: I did discuss advance directives with the patient, her daughter Regina is the POA. I did discuss the above plan with the patient and nursing staff. - Advance Directives Does patient have a Living Will: No Does patient have a Durable POA for Healthcare: No
[2024-09-22] MEDS: NA CHLORIDE 0.9% 1,000 ML IV SCH (11:34)
[2024-09-22] MEDS: CEFEPIME 1 GM in NA CHLORIDE 0.9% 100 ML IV SCH (11:34)
[2024-09-22] MEDS: ENOXAPARIN 40 MG/0.4 ML SQ SCH (11:35)
--- NOTE | 2024-09-22 11:39 | EKG ---
Test Date: 2024-09-21 Test Time: 22:23:53 Parts Inspector: JOSÉ MIGUEL MEASUREMENT RESULTS: Intervals: Rate: 75 NM: 150 QRSD: 110 QT: 400 QTc: 446 [place]: P: 7 NM: 150 QRS: -7 T: 107 INTERPRETIVE STATEMENTS: Sinus rhythm with occasional premature ventricular complexes Anteroseptal infarct, age undetermined ST & T wave abnormality, consider lateral ischemia Abnormal ECG Compared to ECG 06/24/2024 06:02:15 Ventricular premature complex(es) now present Sinus arrhythmia no longer present Myocardial infarct finding still present ST (T wave) deviation still present Possible ischemia still present Electronically Signed On 09-22-24 11:38:20 CDT by Kenneth Bishop
[2024-09-22] MEDS: INSULIN REGULAR (HUMAN) 100 UNIT/ML SQ SCH (12:16)
[2024-09-22] MEDS: VANCOMYCIN 1.5 GM in NA CHLORIDE 0.9% 500 ML IVPB ONE (12:16)
[2024-09-22] MEDS: ACETAMINOPHEN 325 MG TABLET PO PRN (14:15)
[2024-09-22] MEDS: GUAIFENESIN/DM 5 ML UCUP PO PRN (14:15)
[2024-09-23] MEDS: VANCOMYCIN 1.5 GM in NA CHLORIDE 0.9% 500 ML IVPB SCH (03:14)
[2024-09-23 06:03] LABS: Absolute Eosinophils 0.1 K/uL (0-0.5); Absolute Lymphocytes (CBC) 1.8 K/uL (0.7-4.9); Absolute Monocytes 1.4 K/uL (0.1-1.3); Absolute Neutrophil 18.5 K/uL (1.8-8.0); Basophils % 0.2 % (0-1.3); Eosinophils % 0.4 % (0-4.4); Hematocrit 37.9 % (36.0-45.0); Hemoglobin 12.8 g/dL (12.0-15.0); Lymphocytes % 8.2 % (15.3-44.8); MCH 30.4 pg (27.0-35.0); MCHC 33.8 g/dL (32.0-36.0); MCV 90.1 fL (80-100); MPV 7.4 fL (7.6-11.3); Monocytes % 6.3 % (3.3-12.3); Neutrophils % 84.9 % (41.7-73.7); Platelets 333 thou/uL (152-406); RBC Red Blood Cell Count 4.21 M/uL (3.86-4.86); Red Cell Distribution Width 14.4 % (12.1-15.2)
[2024-09-23 06:22] LABS: Anion Gap 6.8 mEq/L (5.0-15.0); Potassium 3.8 mEq/L (3.5-5.1)
[2024-09-23 08:42] LABS: Blood Morphology Comment NOT SEEN (NOT SEEN); Platelet Estimate ADEQ; White Blood Cell Scan OK (OK)
[2024-09-23] MEDS ORDERED: INSULIN GLARGINE 100 UNIT/ML SQ SCH (09:00)
[2024-09-23] MEDS: PANTOPRAZOLE 40 MG INJ IVP SCH (09:54)
[2024-09-23] MEDS: INSULIN GLARGINE 100 UNIT/ML SQ SCH (09:55)
--- NOTE | 2024-09-23 11:27 | P.PN ---
Subjective Date of Service: 09/23/24 Chief Complaint: Pneumonia Subjective: No chest pain. shortness of breath little better. No nausea or vomiting. No abdominal pain. No obvious bleeding. Looks comfortable in the bed. Objective: General appearance: Alert and comfortable CVS: Normal S1 and S2 Lungs: Clear to auscultation bilaterally Abdomen: Soft, bowel sounds present, no tenderness Extremities: No lower extremity edema Physical Examination - Vital Signs Temperature: 97.3 F Blood Pressure: 128/63 Pulse: 75 Respirations: 22 Pulse Ox (%): 94 - Studies Laboratory Data (last 24 hrs) 09/22/24 09/22/24 08:30 08:30 WBC Cancelled Hgb Cancelled Hct Cancelled Plt Count Cancelled Sodium Cancelled Potassium Cancelled BUN Cancelled Creatinine Cancelled Glucose Cancelled Assessment And Plan - Plan Assessment and plan: 1. Pneumonia with acute hypoxic respiratory failure: off BiPAP, continue high flow oxygen -Continue broad-spectrum IV antibiotics, pulmonary consult requested, monitor respiratory status closely, monitor in ICU for now. 2. COPD: Continue inhalers/nebs. 3. Chronic anemia: Monitor closely. 4. Hypertension: Monitor closely for now 5. Diabetes mellitus type 2: Resume Lantus, continue sliding scale insulin for now. 6. History of atrial fibrillation status post Watchman device 7. Chronic diastolic heart failure: Monitor volume status closely 8. Lung nodule on CT scan: Follow-up with PCP with repeat CT scan after treating pneumonia 9. GERD: Continue PPI DVT prophylaxis: Lovenox CODE STATUS: full code Advanced directives: her daughter Regina is the POA. I did discuss the above plan with the patient and nursing staff.
[2024-09-23 11:32] LABS: Specific Gravity 1.028 (1.005-1.030); Urine Bacteria <20 /HPF (<20); Urine Bilirubin NEGATIVE (Negative); Urine Blood Negative (Negative); Urine Clarity Extremely Turbid (Clear); Urine Color Light-Yellow (Yellow); Urine Crystals Unidentified Few /HPF (None Seen); Urine Culture Reflex Order REFLEXED; Urine Glucose 3+ (Negative); Urine Ketones NEGATIVE (Negative); Urine Microscopic Reflex YN ORDER UMIC; Urine Nitrite NEGATIVE (Negative); Urine Protein TRACE (Negative); Urine Urobilinogen Normal (Normal); Urine WBC >50 /HPF (<5); Urine Yeast (Budding) Few /HPF (None Seen); Urine pH 6.5 (5.0-7.0)
[2024-09-23] MEDS: LORAZEPAM 0.5 MG TABLET PO ONE (16:29)
[2024-09-24] MEDS: DIPHENHYDRAMINE 25 MG TAB/CAP ONE (04:11)
[2024-09-24] MEDS: DIPHENHYDRAMINE 25 MG TAB/CAP PO ONE (04:15)
[2024-09-24 05:18] LABS: Absolute Basophils 0.1 K/uL (0-0.5); Absolute Eosinophils 0.2 K/uL (0-0.5); Absolute Lymphocytes (CBC) 1.2 K/uL (0.7-4.9); Absolute Monocytes 0.6 K/uL (0.1-1.3); Absolute Neutrophil 15.7 K/uL (1.8-8.0); Basophils % 0.5 % (0-1.3); Eosinophils % 1.2 % (0-4.4); Hematocrit 38.7 % (36.0-45.0); Hemoglobin 13.1 g/dL (12.0-15.0); MCH 30.1 pg (27.0-35.0); MCV 88.7 fL (80-100); MPV 6.9 fL (7.6-11.3); Monocytes % 3.4 % (3.3-12.3); Platelets 318 thou/uL (152-406); RBC Red Blood Cell Count 4.36 M/uL (3.86-4.86); Red Cell Distribution Width 14.2 % (12.1-15.2)
[2024-09-24 05:24] LABS: Neutrophils % 87.9 % (41.7-73.7)
[2024-09-24 05:35] LABS: Anion Gap 9.7 mEq/L (5.0-15.0); Potassium 3.7 mEq/L (3.5-5.1)
--- NOTE | 2024-09-24 07:12 | P.PN ---
Date of Service: 09/24/24 Subjective: Patient started reporting diffuse itching towards the end of completing dose of vancomycin yesterday She developed rash/redness overnight around abd folds, thighs, perineum within 2-3 hours of itching otherwise doing okay. doesn't feel breathing is getting worse Oxygen requirements improving afebrile Physical Exam: GEN: Alert, oriented, NAD CV: Regular rate and rhythm, no edema Pulm: on hiflow 25L, 30% FiO2, diminished ABD: soft, nontender, nondistended Integumentary: redness of abd folds, thighs, perineum Neuro: Normal speech, normal affect Problem List: Acute hypoxic respiratory failure secondary to bilateral pneumonia Chronic COPD (on home o2) Chronic systolic/diastolic CHF Right middle lobe Pulmonary nodule, 16mm; incidental CTA findings IDDM2 Hypertension Hyperlipidemia GERD Hx of A-fib s/p watchman device Hx Dysphagia / Cognitive communication deficits Anxiety/Depression/BPD Acute hypoxic respiratory failure secondary to bilateral pneumonia Chronic COPD (on home o2) Chronic systolic/diastolic CHF on admission, presents from [facility] with worsening SOB, productive cough, weakness for 2-3 weeks. She was recently diagnosed with upper respiratory infection. Prescribed 5 days of Azithromycin, +1 week of prednisone on 09/19 CTA chest: Extensive bilateral pneumonia. No PE. Continue IV cefepime / Vanc (09/23-) Follow blood, sputum, and urine cultures. Jaren Sullivan Pulm consult 09/23 - Speech consulted to eval for possible aspiration 09/24 - Oxygen requirements improving. Leukocytosis improving, afebrile Patient reports diffuse itching towards the end of completing dose of vancomycin yesterday Developed rash/redness around abd folds, thighs, perineum within 2-3 hours of itching likely red man syndrome, but can't exclude allergy. itching started at end of infusion. Denies any similar rash/reaction prior to this episode IV solu-medrol x1 60mg, oral benadryl Monitor closely. Right middle lobe Pulmonary nodule, 16mm; incidental CTA findings CTA incidentally noted Indeterminate right middle lobe pulmonary nodule, 16mm Consider repeat CT chest in 1-2 months once acute infection resolves to reassess nodule. IDDM2 accu-cheks, SSI confirm home insulin regimen continue semglee 12u BID. Titrate as needed. Hypertension Hyperlipidemia GERD Hx of A-fib s/p watchman device Hx Dysphagia / Cognitive communication deficits Anxiety/Depression/BPD confirm home meds, restart as appropriate 09/23 - s/p ativan 0.5 mg for anxiety VTE: Lovenox GI: IV protonix Code: Full Dispo: Back to NH, ~ 3 days Pending further improvement, leukocytosis resolves, afebrile > 24 hours Time Spent Managing Pts Care (In Minutes): 55
[2024-09-24] MEDS: DIPHENHYDRAMINE 25 MG TAB/CAP PO PRN (08:15)
[2024-09-24] MEDS: METHYLPREDNISOLONE 125 MG INJ IV ONE (08:25)
[2024-09-24] MEDS: CODEINE 30MG/APAP 300MG TAB PO PRN (11:20)
[2024-09-24] MEDS: ALBUTEROL 2.5 MG/3 ML NEB SOL NEB PRN (13:48)
[2024-09-24] MEDS: BUDESONIDE 0.5 MG/2 ML NEB NEB SCH (20:48)
[2024-09-24] MEDS: LORazepam 2 MG/ML VIAL IV PRN (20:56)
--- NOTE | 2024-09-24 22:50 | RAD REPORT ---
Procedure: Chest Single View HISTORY: Shortness of breath COMPARISON: September 22, 2024 FINDINGS: Bilateral pulmonary opacities appear mostly resolved. No significant pleural effusion noted. The heart is mildly enlarged. IMPRESSION: The bilateral pulmonary opacities appear mostly resolved
[2024-09-25 05:11] LABS: Absolute Basophils 0.1 K/uL (0-0.5); Absolute Lymphocytes (CBC) 1.3 K/uL (0.7-4.9); Absolute Monocytes 0.6 K/uL (0.1-1.3); Absolute Neutrophil 14.9 K/uL (1.8-8.0); Basophils % 0.4 % (0-1.3); Eosinophils % 0.1 % (0-4.4); Hematocrit 35.3 % (36.0-45.0); Hemoglobin 11.9 g/dL (12.0-15.0); MCH 30.1 pg (27.0-35.0); MCHC 33.8 g/dL (32.0-36.0); MCV 89.1 fL (80-100); MPV 7.4 fL (7.6-11.3); Monocytes % 3.7 % (3.3-12.3); Neutrophils % 87.8 % (41.7-73.7); Platelets 299 thou/uL (152-406); RBC Red Blood Cell Count 3.97 M/uL (3.86-4.86)
[2024-09-25 05:19] LABS: Anion Gap 11.1 mEq/L (5.0-15.0); Magnesium 1.7 mg/dL (1.6-2.4); Potassium 4.1 mEq/L (3.5-5.1)
--- NOTE | 2024-09-25 07:09 | RAD REPORT ---
EXAMINATION: ONE VIEW CHEST XR CLINICAL INDICATION: f/u opacities TECHNIQUE: Frontal chest projection is submitted. Examination is limited by patient positioning and t echnique. COMPARISON: 09/24/2024 FINDINGS: Mild bilateral interstitial lung opacities are present slightly progressive since the comparison stud y, perhaps interstitial pulmonary edema. The heart is moderately enlarged. No displaced fractures identified. IMPRESSION: Slight worsening in lung aeration seen since yesterday's study.
[2024-09-25] MEDS: INSULIN GLARGINE 100 UNIT/ML SQ SCH (08:01)
--- NOTE | 2024-09-25 09:01 | P.PN ---
Date of Service: 09/25/24 Subjective: tolerated BiPAP for ~8 hours overnight Feels breathing is easier. Off hiflow since yesterday, tolerating 3L NC during the day Continues to feel itchy. Appears slightly less red on exam. Sinus tachy in 120s. Seems to be around time of coughing fits. afebrile Physical Exam: GEN: Alert, oriented, NAD CV: Regular rate and rhythm, no edema Pulm: nonlabored respirations on 3L, diminished ABD: soft, nontender, nondistended Integumentary: redness of abd folds, thighs, perineum Neuro: Normal speech, normal affect Problem List: Acute hypoxic respiratory failure secondary to bilateral pneumonia Chronic COPD (on home o2) Chronic systolic/diastolic CHF Right middle lobe Pulmonary nodule, 16mm; incidental CTA findings IDDM2 Hypertension Hyperlipidemia GERD Hx of A-fib s/p watchman device Hx Dysphagia / Cognitive communication deficits Anxiety/Depression/BPD Acute hypoxic respiratory failure secondary to bilateral pneumonia Chronic COPD (on home o2) Chronic systolic/diastolic CHF on admission, presents from [facility] with worsening SOB, productive cough, weakness for 2-3 weeks. She was recently diagnosed with upper respiratory infection. Prescribed 5 days of Azithromycin, +1 week of prednisone on 09/19 CTA chest: Extensive bilateral pneumonia. No PE. Continue IV cefepime / Vanc (09/23-) Jaren Sullivan Pulm consult 09/23 - Speech consulted to lars for possible aspiration Urine cx: mixed aureliano <10k cfu/ml Blood cx: NGTD 09/24 - Oxygen requirements improving. Leukocytosis improving, afebrile Patient reports diffuse itching towards the end of completing dose of vancomycin yesterday Developed rash/redness around abd folds, thighs, perineum within 2-3 hours of itching likely red man syndrome, but can't exclude allergy. itching started at end of infusion. Denies any similar rash/reaction prior to this episode IV solu-medrol x1 60mg, oral benadryl 09/25 - Feels breathing is easier. Off hiflow since yesterday, on 3L NC during the day. Tolerated BiPAP for ~8 hours last night Leukocytosis slightly improved, afebrile CXR slightly worsening lung aeration diffuse redness improving. Continues with itchiness. Possible downgrade to floor later today vs tomorrow Right middle lobe Pulmonary nodule, 16mm; incidental CTA findings CTA incidentally noted Indeterminate right middle lobe pulmonary nodule, 16mm Consider repeat CT chest in 1-2 months once acute infection resolves to reassess nodule. IDDM2 accu-cheks, SSI confirm home insulin regimen semglee increased to 24u BID. Titrate as needed. Hypertension Hyperlipidemia GERD Hx of A-fib s/p watchman device Hx Dysphagia / Cognitive communication deficits Anxiety/Depression/BPD confirm home meds, restart as appropriate 09/23 - s/p ativan 0.5 mg for anxiety 09/24 - IV ativan 1mg added for anxiety with BiPAP VTE: Lovenox GI: IV protonix Code: Full Dispo: Back to NH, ~ 3 days Pending further improvement, leukocytosis resolves, afebrile > 24 hours Time Spent Managing Pts Care (In Minutes): 55
[2024-09-25] MEDS: HYDROCORTISONE 0.5% CREAM 30 GM TOP PRN (09:53)
--- NOTE | 2024-09-25 10:10 | P.CNS ---
Date of Consult: 09/30/24 Chief Complaint: Pneumonia History of Present Illness: Patient is 79 years of age at the time of my evaluation patient was in respiratory distress disoriented had been sick for about a week admitted with pneumonia is currently on BiPAP no prior history of any pulmonary complaints Allergies No Known Allergies Allergy (Verified 10/26/23 18:45) Home Medications: ARIPiprazole [Aripiprazole] 2 mg PO DAILY 10/26/23 Atorvastatin Calcium [Lipitor] 80 mg PO BEDTIME 10/26/23 Clopidogrel Bisulfate [Plavix*] 75 mg PO DAILY 10/26/23 Duloxetine HCl 30 mg PO BID 10/26/23 Ezetimibe 10 mg PO DAILY 10/26/23 Fenofibrate,Micronized [Fenofibrate] 48 mg PO DAILY 10/26/23 Ferrous Sulfate [Ferrous Sulfate*] 325 mg PO DAILY 10/26/23 Furosemide [Lasix*] 20 mg PO DAILY 10/26/23 Spironolactone [Aldactone*] 12.5 mg PO DAILY 10/26/23 carvediloL [Carvedilol] 6.25 mg PO BID 10/26/23 Aspirin [Aspirin EC] 81 mg PO DAILY #30 11/05/23 Magnesium Oxide [Mag 0X Tab] 400 mg PO BID 5 Days #10 tab 06/22/24 guaiFENesin [Robitussin 100MG/5ML] 5 ml PO QID 20 Days #1 bottle 06/22/24 Ascorbic Acid [Vitamin C] 500 mg PO DAILY 09/22/24 Benzonatate [Tessalon Perle] 100 mg PO BID PRN 09/22/24 Fluticasone Propionate [24 Hour Allergy] 9.9 ml NS 1X 09/22/24 Gabapentin 300 mg PO DAILY 09/22/24 Insulin 70/30 NPH/Reg Human [Novolin 70/30*] 5 units SQ BID 09/22/24 Insulin Glargine,Hum.rec.anlog [Semglee] 24 unit SQ BID 09/22/24 Insulin Lispro See Protocol SQ ACHS 09/22/24 Ipratropium/Albuterol Sulfate [Iprat-Albut 0.5-3(2.5) mg/3 ml] 3 ml IH Q4H PRN 09/22/24 Omeprazole 20 mg PO DAILY 09/22/24 Polyethyl Gly 3350 [Glycolax*] 17 gm PO DAILY 09/22/24 Prednisone [Sterapred Ds] 10 mg PO BREAKFAST 09/22/24 - Past Medical/Surgical History Diabetic: Yes -: DM2 -: GERD -: HTN -: Hyperlipidemia -: CHF -: AFIB-watchman -: Back sx -: appendectomy -: cholecystectomy -: hysterectomy -: tonsillectomy Psychosocial/ Personal History: Currently at SNF - Social History Smoking Status: Unknown if ever smoked Alcohol use: No CD- Drugs: No Caffeine use: No Place of Residence: [facility] Review of Systems is unable to be obtained Physical Examination Temp Pulse Resp BP Pulse Ox 97.6 F 121 H 22 H 115/99 H 95 09/25/24 08:00 09/25/24 10:00 09/25/24 10:00 09/25/24 10:00 09/25/24 10:00 General: Delirious Respiratory: Clear to auscultation bilaterally, Diminished, Crackles/rales Cardiovascular: No edema, Regular rate/rhythm, Normal S1 S2 Gastrointestinal: Normal bowel sounds, Soft and benign, Non-distended - Problems (1) Pneumonia Current Visit: Yes Status: Acute Plan: Patient is 79 years of age multiple medical problems admitted with respiratory distress she does have bilateral pneumonia patient hypoxic hypercapnic respiratory failure white count elevated vital signs stable continue with present therapy changed to IV levofloxacin May need Vapotherm or BiPAP CT scan chest x-rays reviewed Qualifiers: Pneumonia type: due to unspecified organism Laterality: bilateral
--- NOTE | 2024-09-25 10:20 | P.PN ---
Subjective Date of Service: 09/25/24 Chief Complaint: Pneumonia Subjective: Improving (Patient is improving more alert feels still has a cough congestion) Review of Systems General: Weakness Respiratory: Cough, Shortness of Breath Physical Examination - Vital Signs Temperature: 97.6 F Blood Pressure: 115/99 Pulse: 121 Respirations: 22 Pulse Ox (%): 95 - Physical Exam General: Alert, Oriented x3 Respiratory: Diminished, Expiratory wheezes Cardiovascular: No edema, Regular rate/rhythm, Normal S1 S2 Assessment And Plan - Current Problems (Diagnosis) (1) Pneumonia Current Visit: Yes Status: Acute Plan: Patient is improving admitted with bilateral pneumonia some of her home medications have been reconciled add p.o. levofloxacin for atypical coverage continue with cefepime for now white count is declining can probably DC cefepime in 1 or 2 days continue with p.o. levofloxacin Qualifiers: Pneumonia type: due to unspecified organism Laterality: bilateral
[2024-09-25] MEDS: levoFLOXacin 750 MG TAB PO SCH (10:38)
[2024-09-25] MEDS: ATORVASTATIN 80 MG TAB PO SCH (20:42)
[2024-09-25] MEDS: carvediloL 6.25 MG TAB PO SCH (20:42)
[2024-09-25] MEDS: DULOXETINE 30 MG CAP PO SCH (20:43)
[2024-09-26 05:14] LABS: Absolute Eosinophils 0.2 K/uL (0-0.5); Absolute Lymphocytes (CBC) 1.2 K/uL (0.7-4.9); Absolute Monocytes 0.4 K/uL (0.1-1.3); Absolute Neutrophil 16.6 K/uL (1.8-8.0); Basophils % 0.2 % (0-1.3); Eosinophils % 0.8 % (0-4.4); Hematocrit 38.4 % (36.0-45.0); Hemoglobin 13.1 g/dL (12.0-15.0); Lymphocytes % 6.6 % (15.3-44.8); MCH 30.3 pg (27.0-35.0); MCHC 34.1 g/dL (32.0-36.0); MPV 7.2 fL (7.6-11.3); Monocytes % 2.3 % (3.3-12.3); Neutrophils % 90.1 % (41.7-73.7); Nucleated Red Blood Cells % 0.1 % (0-0); Platelets 334 thou/uL (152-406); RBC Red Blood Cell Count 4.32 M/uL (3.86-4.86); Red Cell Distribution Width 14.5 % (12.1-15.2)
[2024-09-26 05:35] LABS: Anion Gap 7.9 mEq/L (5.0-15.0); Magnesium 1.4 mg/dL (1.6-2.4); Potassium 3.9 mEq/L (3.5-5.1)
[2024-09-26 06:00] LABS: Band Neutrophils 1 % (0-1); Differential Total Cells Count 100; Eosinophils 1 % (0-3); Lymphocytes 12 % (15-42); Monocytes 2 % (0-10); Segmented Neutrophils 84 % (40-80)
[2024-09-26 06:01] LABS: Blood Morphology Comment NOTED (NOT SEEN)
[2024-09-26 06:02] LABS: Platelet Estimate ADEQ
[2024-09-26] MEDS: HOME MED 1 EA UNK (Aripiprazole [Aripiprazole] 2 MG Tablet) PO SCH (06:59)
[2024-09-26] MEDS: ASPIRIN EC 81 MG TAB PO SCH (07:27)
[2024-09-26] MEDS: GABAPENTIN 300 MG CAP PO SCH (07:27)
[2024-09-26] MEDS: CLOPIDOGREL 75 MG TABLET PO SCH (07:28)
--- NOTE | 2024-09-26 08:41 | P.PN ---
Date of Service: 09/26/24 Subjective: Redness covering more area today Now with urticarial rash on on b/l thighs/legs, arms, and some on neck/head Itchiness continues ~same more confused today. Asked if we are in a restaurant right now breathing comfortably on 3L afebrile Physical Exam: GEN: Alert, oriented, NAD CV: Sinus Tachycardia HR 100s, no edema Pulm: nonlabored respirations on 3L, diminished ABD: soft, nontender, nondistended Integumentary: Red raised urticarial rash on b/l thighs/legs, arms, and some on neck/head Neuro: Normal speech, normal affect Problem List: Acute hypoxic respiratory failure secondary to bilateral pneumonia Chronic COPD (on home o2) Chronic systolic/diastolic CHF Right middle lobe Pulmonary nodule, 16mm; incidental CTA findings IDDM2 Hypertension Hyperlipidemia GERD Hx of A-fib s/p watchman device Hx Dysphagia / Cognitive communication deficits Anxiety/Depression/BPD Acute hypoxic respiratory failure secondary to bilateral pneumonia Chronic COPD (on home o2) Chronic systolic/diastolic CHF on admission, presents from [facility] with worsening SOB, productive cough, weakness for 2-3 weeks. She was recently diagnosed with upper respiratory infection. Prescribed 5 days of Azithromycin, +1 week of prednisone on 09/19 CTA chest: Extensive bilateral pneumonia. No PE. Continue IV cefepime / Vanc (09/23-) Pulm consult 09/23 - Speech consulted to lars for possible aspiration Urine cx: mixed aureliano <10k cfu/ml Blood cx: NGTD 09/24 - Oxygen requirements improving. Leukocytosis improving, afebrile Patient reports diffuse itching towards the end of completing dose of vancomycin yesterday Developed rash/redness around abd folds, thighs, perineum within 2-3 hours of itching likely red man syndrome, but can't exclude allergy. itching started at end of infusion. Denies any similar rash/reaction prior to this episode IV solu-medrol x1 60mg, oral benadryl 09/25 - Feels breathing is easier. Off hiflow since yesterday, on 3L NC during the day. Tolerated BiPAP for ~8 hours last night Leukocytosis slightly improved, afebrile CXR slightly worsening lung aeration diffuse redness improving. Continues with itchiness. Possible downgrade to floor later today vs tomorrow Levaquin added per pulm 09/26 - More confused today, Asked if we are in a restaurant right Diffuse redness covering more area today. Now with urticarial rash on on b/l thighs/legs, arms, and some on neck/head Possibly from Cefepime? DC and monitor. IV solumedrol x1 ordered Respiratory status stable. Right middle lobe Pulmonary nodule, 16mm; incidental CTA findings CTA incidentally noted Indeterminate right middle lobe pulmonary nodule, 16mm Consider repeat CT chest in 1-2 months once acute infection resolves to reassess nodule. IDDM2 accu-cheks, SSI confirm home insulin regimen semglee increased to 24u BID. Titrate as needed. Hypertension Hyperlipidemia GERD Hx of A-fib s/p watchman device Hx Dysphagia / Cognitive communication deficits Anxiety/Depression/BPD confirm home meds, restart as appropriate 09/23 - s/p ativan 0.5 mg for anxiety 09/24 - IV ativan 1mg added for anxiety with BiPAP VTE: Lovenox GI: IV protonix Code: Full Dispo: Back to NH, ~ 3 days Pending further improvement, leukocytosis resolves, afebrile > 24 hours Time Spent Managing Pts Care (In Minutes): 55
[2024-09-26] MEDS ORDERED: SPIRONOLACTONE 25 MG TABLET PO SCH (09:00)
[2024-09-26] MEDS: METHYLPREDNISOLONE 125 MG INJ IV ONE (09:01)
--- NOTE | 2024-09-26 12:34 | P.PN ---
Subjective Date of Service: 09/26/24 Chief Complaint: Pneumonia Subjective: Improving (Patient is improving has developed a diffuse macular papular rash may have probably an allergic reaction to antibiotic otherwise stable) Review of Systems General: Weakness Respiratory: Shortness of Breath Physical Examination - Vital Signs Temperature: 97.0 F Blood Pressure: 97/75 Pulse: 85 Respirations: 20 Pulse Ox (%): 98 - Physical Exam General: Alert, Oriented x3 Respiratory: Clear to auscultation bilaterally Cardiovascular: No edema, Regular rate/rhythm Assessment And Plan - Current Problems (Diagnosis) (1) Pneumonia Current Visit: Yes Status: Acute Plan: Patient has developed a rash presumed allergic reaction to the cephalosporin or vancomycin agree with levofloxacin no evidence of active sepsis right now labs chemistries all reviewed cultures are all negative hemodynamically stable Qualifiers: Pneumonia type: due to unspecified organism Laterality: bilateral
[2024-09-27 05:57] LABS: Absolute Basophils 0.1 K/uL (0-0.5); Absolute Lymphocytes (CBC) 1.3 K/uL (0.7-4.9); Absolute Monocytes 0.4 K/uL (0.1-1.3); Basophils % 0.4 % (0-1.3); Hemoglobin 13.2 g/dL (12.0-15.0); Lymphocytes % 7.8 % (15.3-44.8); MCH 30.4 pg (27.0-35.0); MCHC 33.8 g/dL (32.0-36.0); MCV 89.9 fL (80-100); MPV 7.4 fL (7.6-11.3); Monocytes % 2.5 % (3.3-12.3); Neutrophils % 89.3 % (41.7-73.7); Platelets 323 thou/uL (152-406); RBC Red Blood Cell Count 4.34 M/uL (3.86-4.86); Red Cell Distribution Width 14.4 % (12.1-15.2)
[2024-09-27 06:16] LABS: Anion Gap 9.3 mEq/L (5.0-15.0); Magnesium 1.7 mg/dL (1.6-2.4); Potassium 4.3 mEq/L (3.5-5.1)
--- NOTE | 2024-09-27 14:46 | P.PN ---
Subjective Date of Service: 09/27/24 Chief Complaint: Pneumonia Patient reports intermittent nonproductive cough. She has no fever. She reports loss of appetite. Physical Examination - Vital Signs Temperature: 98.1 F Blood Pressure: 102/49 Pulse: 70 Respirations: 18 Pulse Ox (%): 99 - Studies Microbiology Data (last 24 hrs): 09/21/24 22:50 Blood - Blood Aerobic Blood Culture - Final No growth in 5 days. 09/21/24 22:50 Blood - Blood Anaerobic Blood Culture - Final No growth in 5 days. 09/21/24 23:02 Blood - Blood Aerobic Blood Culture - Final No growth in 5 days. 09/21/24 23:02 Blood - Blood Anaerobic Blood Culture - Final No growth in 5 days. Assessment And Plan - Plan Physical Exam: GEN: Alert, oriented, NAD CV: RRR, no edema Pulm: Diminished breath sounds bilaterally, mild bibasilar crackles ABD: soft, nontender, nondistended, normal bowel sounds. Integumentary: No rash noted today. Neuro: Normal speech, normal affect Problem List: Acute hypoxic respiratory failure secondary to bilateral pneumonia Chronic COPD (on home o2) Chronic systolic/diastolic CHF Right middle lobe Pulmonary nodule, 16mm; incidental CTA findings IDDM2 Hypertension Hyperlipidemia GERD Hx of A-fib s/p watchman device Hx Dysphagia / Cognitive communication deficits Anxiety/Depression/BPD Acute hypoxic respiratory failure secondary to bilateral pneumonia Chronic COPD (on home o2) Chronic systolic/diastolic CHF on admission, presents from [facility] with worsening SOB, productive cough, weakness for 2-3 weeks. She was recently diagnosed with upper respiratory infection. Prescribed 5 days of Azithromycin, +1 week of prednisone on 09/19 CTA chest: Extensive bilateral pneumonia. No PE. Continue IV cefepime / Vanc (09/23-) Pulm consult 09/23 - Speech consulted to eval for possible aspiration Urine cx: mixed aureliano <10k cfu/ml Blood cx: NGTD 09/24 - Oxygen requirements improving. Leukocytosis improving, afebrile Patient reports diffuse itching towards the end of completing dose of vancomycin yesterday Developed rash/redness around abd folds, thighs, perineum within 2-3 hours of itching likely red man syndrome, but can't exclude allergy. itching started at end of infusion. Denies any similar rash/reaction prior to this episode IV solu-medrol x1 60mg, oral benadryl 09/25 - Feels breathing is easier. Off hiflow since yesterday, on 3L NC during the day. Tolerated BiPAP for ~8 hours last night Leukocytosis slightly improved, afebrile CXR slightly worsening lung aeration diffuse redness improving. Continues with itchiness. Possible downgrade to floor later today vs tomorrow Levaquin added per pulm 09/26 - More confused today, Asked if we are in a restaurant right Diffuse redness covering more area today. Now with urticarial rash on on b/l thighs/legs, arms, and some on neck/head Possibly from Cefepime? DC and monitor. IV solumedrol x1 ordered Respiratory status stable. 09/27 Patient is interacting appropriately and appears to be less confused. Rash resolved Antibiotics transition to oral Levaquin Chest physiotherapy. Pulmonary is following/ Right middle lobe Pulmonary nodule, 16mm; incidental CTA findings CTA incidentally noted Indeterminate right middle lobe pulmonary nodule, 16mm Consider repeat CT chest in 1-2 months once acute infection resolves to reassess nodule. IDDM2 accu-cheks, SSI confirm home insulin regimen Titrate Semglee insulin. Hypertension Hyperlipidemia GERD Hx of A-fib s/p watchman device Hx Dysphagia / Cognitive communication deficits Anxiety/Depression/BPD confirm home meds, restart as appropriate 09/23 - s/p ativan 0.5 mg for anxiety 09/24 - IV ativan 1mg added for anxiety with BiPAP 09/27 Stable Continue current medications. VTE: Lovenox GI: IV protonix Code: Full Dispo: Back to [place]
[2024-09-28] MEDS: ASPIRIN 81 MG CHEWABLE TABLET PO SCH (09:17)
--- NOTE | 2024-09-28 12:33 | P.PN ---
Subjective Date of Service: 09/28/24 Chief Complaint: Pneumonia Subjective: Improving (Patient is improving doing better still complaining of chest congestion) Review of Systems General: Weakness Respiratory: Cough, Shortness of Breath Physical Examination - Vital Signs Temperature: 98.3 F Blood Pressure: 111/88 Pulse: 81 Respirations: 26 Pulse Ox (%): 94 - Physical Exam General: Alert, Oriented x3 Respiratory: Crackles/rales, Rhonchi/gurgles Cardiovascular: No edema, Regular rate/rhythm, Normal S1 S2 Assessment And Plan - Current Problems (Diagnosis) (1) Pneumonia Current Visit: Yes Status: Acute Plan: Patient admitted with pneumonia her rash has resolved complaining of chest congestion have added a flutter valve continue with levofloxacin nebulized bronchodilators labs reviewed white count is declining plan for some physical therapy discharge planning oxygenation satisfactory Qualifiers: Pneumonia type: due to unspecified organism Laterality: bilateral
--- NOTE | 2024-09-28 16:51 | P.PN ---
Subjective Date of Service: 09/28/24 Chief Complaint: Pneumonia Patient states she feels better today She has no fever. Patient reports mild itching in bilateral legs Physical Examination - Vital Signs Temperature: 98.3 F Blood Pressure: 111/88 Pulse: 81 Respirations: 26 Pulse Ox (%): 94 Assessment And Plan - Plan Physical Exam: GEN: Alert, oriented, NAD CV: Heart sounds 1-2 heard, regular rhythm, normal rate, no edema Pulm: Diminished breath sounds bilaterally, mild bibasilar crackles ABD: soft, nontender, nondistended, normal bowel sounds. Integumentary: No rash noted today. Neuro: Normal speech, normal affect Problem List: Acute hypoxic respiratory failure secondary to bilateral pneumonia Chronic COPD (on home o2) Chronic systolic/diastolic CHF Right middle lobe Pulmonary nodule, 16mm; incidental CTA findings IDDM2 Hypertension Hyperlipidemia GERD Hx of A-fib s/p watchman device Hx Dysphagia / Cognitive communication deficits Anxiety/Depression/BPD Acute hypoxic respiratory failure secondary to bilateral pneumonia Chronic COPD (on home o2) Chronic systolic/diastolic CHF on admission, presents from [facility] with worsening SOB, productive cough, weakness for 2-3 weeks. She was recently diagnosed with upper respiratory infection. Prescribed 5 days of Azithromycin, +1 week of prednisone on 09/19 CTA chest: Extensive bilateral pneumonia. No PE. Continue IV cefepime / Vanc (09/23-) Pulm consult 09/23 - Speech consulted to lars for possible aspiration Urine cx: mixed aureliano <10k cfu/ml Blood cx: NGTD 09/24 - Oxygen requirements improving. Leukocytosis improving, afebrile Patient reports diffuse itching towards the end of completing dose of vancomycin yesterday Developed rash/redness around abd folds, thighs, perineum within 2-3 hours of itching likely red man syndrome, but can't exclude allergy. itching started at end of infusion. Denies any similar rash/reaction prior to this episode IV solu-medrol x1 60mg, oral benadryl 09/25 - Feels breathing is easier. Off hiflow since yesterday, on 3L NC during the day. Tolerated BiPAP for ~8 hours last night Leukocytosis slightly improved, afebrile CXR slightly worsening lung aeration diffuse redness improving. Continues with itchiness. Possible downgrade to floor later today vs tomorrow Levaquin added per pulm 09/26 - More confused today, Asked if we are in a restaurant right Diffuse redness covering more area today. Now with urticarial rash on on b/l thighs/legs, arms, and some on neck/head Possibly from Cefepime? DC and monitor. IV solumedrol x1 ordered Respiratory status stable. 09/27 Patient is interacting appropriately and appears to be less confused. Rash resolved Antibiotics transition to oral Levaquin Chest physiotherapy. Pulmonary is following 09/28 No more rash Continue current antibiotics. Patient is generally weak. PT consulted to evaluate Disposition pending PT evaluation Continue chest physiotherapy Right middle lobe Pulmonary nodule, 16mm; incidental CTA findings CTA incidentally noted Indeterminate right middle lobe pulmonary nodule, 16mm Consider repeat CT chest in 1-2 months once acute infection resolves to reassess nodule. IDDM2 accu-cheks, SSI confirm home insulin regimen Titrate Semglee insulin. Hypertension Hyperlipidemia GERD Hx of A-fib s/p watchman device Hx Dysphagia / Cognitive communication deficits Anxiety/Depression/BPD confirm home meds, restart as appropriate 09/23 - s/p ativan 0.5 mg for anxiety 09/24 - IV ativan 1mg added for anxiety with BiPAP 09/27 Stable Continue current medications. VTE: Lovenox GI: IV protonix Code: Full Dispo: Back to [place]
[2024-09-29 05:30] LABS: Absolute Eosinophils 0.5 K/uL (0-0.5); Absolute Lymphocytes (CBC) 1.9 K/uL (0.7-4.9); Absolute Monocytes 0.6 K/uL (0.1-1.3); Absolute Neutrophil 4.5 K/uL (1.8-8.0); Basophils % 0.1 % (0-1.3); Eosinophils % 6.7 % (0-4.4); Hematocrit 34.5 % (36.0-45.0); Hemoglobin 12.2 g/dL (12.0-15.0); Lymphocytes % 25.7 % (15.3-44.8); MCH 31.2 pg (27.0-35.0); MCHC 35.4 g/dL (32.0-36.0); MCV 88.1 fL (80-100); MPV 7.3 fL (7.6-11.3); Monocytes % 8.2 % (3.3-12.3); Neutrophils % 59.3 % (41.7-73.7); Platelets 270 thou/uL (152-406); RBC Red Blood Cell Count 3.91 M/uL (3.86-4.86); Red Cell Distribution Width 14.1 % (12.1-15.2)
[2024-09-29 05:38] LABS: Anion Gap 9.1 mEq/L (5.0-15.0); Potassium 4.1 mEq/L (3.5-5.1)
[2024-09-29 10:31] VITALS: O2SAT 99
--- NOTE | 2024-09-29 13:53 | P.DS ---
Admission Date: 09/22/24 Discharge Date: 09/29/24 Disposition: TRANSFER TO [facility] Discharge Condition: FAIR Reason for Admission: Pneumonia Brief History of Present Illness: 79-year-old patient with a history of COPD, diabetes [facility] with shortness of breath and cough for the last 1 week, she was found to be in acute respiratory failure. She was given antibiotics, started on BiPAP in the ED and admitted for further management. Hospital Course: Problem List: Acute hypoxic respiratory failure secondary to bilateral pneumonia Chronic COPD (on home o2) Chronic systolic/diastolic CHF Right middle lobe Pulmonary nodule, 16mm; incidental CTA findings IDDM2 Hypertension Hyperlipidemia GERD Hx of A-fib s/p watchman device Hx Dysphagia / Cognitive communication deficits Anxiety/Depression/BPD Patient presented from [facility] with worsening SOB, productive cough, weakness for 2-3 weeks. She was recently diagnosed with upper respiratory infection and treated with 5 days of Azithromycin, and 1 week of prednisone. CTA chest: Extensive bilateral pneumonia. No PE. Patient treated with IV cefepime and vancomycin. There was a concern for allergic reaction to vancomycin Patient transferred to the ICU for close monitoring She was seen by pulmonary Dr. Enriquez, antibiotics later changed to oral Levaquin. She was given IV steroid, Benadryl and hydrocortisone cream for itchy rash on the trunk and thighs. The rash resolved with treatment. Patient required BiPAP briefly Respiratory condition improved with treatment, oxygen was weaned down to 1 L by nasal cannula with an oxygen saturation of 99%. She had an episode of confusion which improved. Patient is stable respiratory cain. She was treated with bronchodilators, nebs. She is discharged with oral Levaquin to complete 10 days of antibiotic treatment for pneumonia. Speech evaluated the patient for possible aspiration, patient diet changed to pured. Right middle lobe Pulmonary nodule, 16mm; incidental CTA findings CTA incidentally noted Indeterminate right middle lobe pulmonary nodule, 16mm Patient needed repeat CT chest within 1 to 2 months to follow-up the pulmonary nodule. Blood sugar was managed with her home insulin regimen and insulin sliding scale Patient's other home medications were continued during the hospital stay Patient was evaluated by physical therapy and she needed assistance with transfers. Bed mobility exercises were done. Vital Signs/Physical Exam: Temp Pulse Resp BP Pulse Ox 97.9 F 78 14 131/51 L 97 09/29/24 12:00 09/29/24 12:00 09/29/24 12:00 09/29/24 12:00 09/29/24 12:00 General: In no apparent distress, Other (Awake, not in acute distress) HEENT: Mucous membr. moist/pink, Sclerae nonicteric Neck: Supple, JVD not distended Respiratory: Clear to auscultation bilaterally, Normal air movement Cardiovascular: No edema, Regular rate/rhythm, Normal S1 S2 Gastrointestinal: Normal bowel sounds, Soft and benign, Non-distended Musculoskeletal: No swelling, No tenderness Integumentary: No rashes, No cyanosis Neurological: Normal speech, Normal strength at 5/5 x4 extr Laboratory Data at Discharge: WBC 7.60 thou/uL (4.3-10.9) 09/29/24 04:45 Hgb 12.2 g/dL (12.0-15.0) 09/29/24 04:45 Hct 34.5 % (36.0-45.0) L 09/29/24 04:45 Plt Count 270 thou/uL (152-406) 09/29/24 04:45 PT 13.4 SECONDS (10-13.0) H 09/21/24 23:02 INR 1.18 09/21/24 23:02 APTT 28.5 SECONDS (27.2-37.4) 09/21/24 23:02 Sodium 138 mEq/L (136-145) 09/29/24 04:45 Potassium 4.1 mEq/L (3.5-5.1) 09/29/24 04:45 BUN 12 mg/dL (7-18) 09/29/24 04:45 Creatinine 0.56 mg/dL (0.55-1.02) 09/29/24 04:45 Glucose 137 mg/dL (74-106) H 09/29/24 04:45 Magnesium 1.7 mg/dL (1.6-2.4) 09/27/24 05:37 Total Bilirubin 0.5 mg/dL (0.2-1.0) 09/21/24 23:02 AST 22 U/L (15-37) 09/21/24 23:02 ALT 22 U/L (13-56) 09/21/24 23:02 Alkaline Phosphatase 105 U/L (45-117) 05/07/25 23:02 Lipase 26 U/L (13-75) 09/21/24 23:02 Home Medications: ARIPiprazole [Aripiprazole] 2 mg PO DAILY 10/26/23 Atorvastatin Calcium [Lipitor] 80 mg PO BEDTIME 10/26/23 Clopidogrel Bisulfate [Plavix*] 75 mg PO DAILY 10/26/23 Duloxetine HCl 30 mg PO BID 10/26/23 Ezetimibe 10 mg PO DAILY 10/26/23 Fenofibrate,Micronized [Fenofibrate] 48 mg PO DAILY 10/26/23 Ferrous Sulfate [Ferrous Sulfate*] 325 mg PO DAILY 10/26/23 Furosemide [Lasix*] 20 mg PO DAILY 10/26/23 Spironolactone [Aldactone*] 12.5 mg PO DAILY 10/26/23 carvediloL [Carvedilol] 6.25 mg PO BID 10/26/23 Aspirin [Aspirin EC] 81 mg PO DAILY #30 11/05/23 Magnesium Oxide [Mag 0X*] 400 mg PO BID 5 Days #10 tab 06/22/24 guaiFENesin [Robitussin 100MG/5ML*] 5 ml PO QID 20 Days #1 bottle 06/22/24 Ascorbic Acid [Vitamin C] 500 mg PO DAILY 09/22/24 Benzonatate [Tessalon Perle*] 100 mg PO BID PRN 09/22/24 Fluticasone Propionate [24 Hour Allergy] 9.9 ml NS 1X 09/22/24 Gabapentin 300 mg PO DAILY 09/22/24 Insulin Glargine,Hum.rec.anlog [Semglee] 24 unit SQ BID 09/22/24 Insulin Lispro See Protocol SQ ACHS 09/22/24 Ipratropium/Albuterol Sulfate [Iprat-Albut 0.5-3(2.5) mg/3 ml] 3 ml IH Q4H PRN 09/22/24 Omeprazole 20 mg PO DAILY 09/22/24 Polyethyl Gly 3350 [Glycolax*] 17 gm PO DAILY 09/22/24 Fluticasone/Umeclidin/Vilanter [Trelegy Ellipta 200-62.5-25] 1 each IH DAILY #30 ea 09/29/24 levoFLOXacin [Levaquin*] 750 mg PO DAILY 4 Days #4 tab 05/15/25 New Medications: levoFLOXacin [Levaquin*] 750 mg PO DAILY 4 Days #4 tab Fluticasone/Umeclidin/Vilanter [Trelegy Ellipta 200-62.5-25] 1 each IH DAILY #30 ea Physician Discharge Instructions: Patient presented from [facility] with worsening SOB, productive cough, weakness for 2-3 weeks. She was recently diagnosed with upper respiratory infection and treated with 5 days of Azithromycin, and 1 week of prednisone. CTA chest: Extensive bilateral pneumonia. No PE. Patient treated with IV cefepime and vancomycin. There was a concern for allergic reaction to vancomycin Patient transferred to the ICU for close monitoring She was seen by pulmonary Dr. Enriquez, antibiotics later changed to oral Levaquin. She was given IV steroid, Benadryl and hydrocortisone cream for itchy rash on the trunk and thighs. The rash resolved with treatment. Patient required BiPAP briefly Respiratory condition improved with treatment, oxygen was weaned down to 1 L by nasal cannula with an oxygen saturation of 99%. She had an episode of confusion which improved. Patient is stable respiratory cain. She was treated with bronchodilators, nebs. She is discharged with oral Levaquin to complete 10 days of antibiotic treatment for pneumonia. Speech evaluated the patient for possible aspiration, patient diet changed to pured. Right middle lobe Pulmonary nodule, 16mm; incidental CTA findings CTA incidentally noted Indeterminate right middle lobe pulmonary nodule, 16mm Patient needed repeat CT chest within 1 to 2 months to follow-up the pulmonary nodule. Blood sugar was managed with her home insulin regimen and insulin sliding scale Patient's other home medications were continued during the hospital stay Patient was evaluated by physical therapy and she needed assistance with transfers. Bed mobility exercises were done. Diet: ADA (Pureed) Activity: Fall precautions Followup: [facility]OTOOT [Primary Care Provider] - 1 Week Time spent managing pt's care (in minutes): 42
[2024-09-29 16:02] VITALS: BP 117/54; TEMP 98
== END 2024-09-29 18:26 | DRG 177 ==
LOC: ER 21:54 → ERHOLD 09-22 08:58 → 3RD-ICU 09-22 10:52 → 4TH 09-29 06:00
PROVIDERS: ADMIT Hospitalist; ATTEND Internal Medicine
PROC: 4A033R1 Measurement of Arterial Saturation, Peripheral, Percutaneous Approach (ICD-10-PCS; principal; 2024-09-22)
PROC: 5A09457 Assistance with Respiratory Ventilation, 24-96 Consecutive Hours, Continuous Positive Airway Pressure (ICD-10-PCS; 2024-09-22)
PROC: 5A0955A Assistance with Respiratory Ventilation, Greater than 96 Consecutive Hours, High Flow/Velocity Cannula (ICD-10-PCS; 2024-09-22)
DX: J69.0 Pneumonitis due to inhalation of food and vomit (principal); J96.01 Acute respiratory failure with hypoxia; I50.42 Chronic combined systolic (congestive) and diastolic (congestive) heart failure; I11.0 Hypertensive heart disease with heart failure; E78.5 Hyperlipidemia, unspecified; I48.0 Paroxysmal atrial fibrillation; F41.1 Generalized anxiety disorder; F31.9 Bipolar disorder, unspecified; E11.9 Type 2 diabetes mellitus without complications; J44.9 Chronic obstructive pulmonary disease, unspecified; K21.9 Gastro-esophageal reflux disease without esophagitis; R91.8 Other nonspecific abnormal finding of lung field; Z79.4 Long term (current) use of insulin; Z79.82 Long term (current) use of aspirin; Z99.81 Dependence on supplemental oxygen; Z79.02 Long term (current) use of antithrombotics/antiplatelets; Z90.49 Acquired absence of other specified parts of digestive tract; Z79.899 Other long term (current) drug therapy; Z90.710 Acquired absence of both cervix and uterus
CPT/HCPCS: 36415; 36600; 71045; 71275; 80048; 80076; 81001; 82550; 82805; 82947; 83605; 83690; 83735; 83880; 84484; 85025; 85379; 85610; 85730; 86140; 87040; 87070; 87086; 87088; 87205; 92526; 92610; 93005; 94640; 94660; 94668; 97110; 97161; 97530; 97542; 99285; J0692; J0696; J1650; J1815; J1938; J2405; J2470; J2919; J3370; J7030; J7040; J7050; J7613; J7626; J7644; Q9967